=== PATIENT | female | born 1965 | race Caucasian/White ===

== ENCOUNTER → 2017-08-13 08:57 | Outpatient (CLI) | payer OTHER, SELFPAY ==
[2017-08-13 10:43] LABS: Absolute Lymphocyte Count 1.59 X10^3/ul (0.83-4.51); Absolute Neutrophil Count 4.5 X10^3/uL (2.0-7.7); Basophil# 0.04 X10^3/uL; Basophil% 0.6 % (0-1); Eosinophil# 0.32 X10^3/uL; Eosinophils% 4.7 % (0-5); Hematocrit 45.7 % (37-47); Lymphocyte # 1.59 X10^3/ul (4.0); Lymphocyte % 23.5 % (19-41); Mean Corp Hgb Conc 32.8 g/gl (32-36); Mean Corpuscular Hgb 30.1 pg (27.0-32.0); Mean Corpuscular Volume 91.6 fL (81-99); Mean Platelet Vol. 10.9 fl (6.2-12.0); Monocyte# 0.34 X10^3/uL; Neutrophil # 4.45 X10^3/uL (2.7-7.7); Neutrophil % 65.9 % (47-70); POSITIVE COUNT NO; POSITIVE DIFFERENTIAL NO; POSITIVE MORPHOLOGY NO; Platelet Count 206 K/mm3 (150-450); RBC Distribution Width CV 13.6 % (11.6-14.6); RBC Distribution Width SD 45.2 fl (35.1-43.9); Red Blood Count 4.99 M/mm3 (4.2-5.4); White Blood Count 6.8 K/mm3 (4.4-11.0)
[2017-08-13 11:10] LABS: ALB/GLOB Ratio 0.8 RATIO (0.9-2.4); AST(SGOT) 12 U/L (15-37); Alanine Aminotransfer ALT/SGPT 19 U/L (13-56); Albumin, Serum 3.6 g/dL (3.2-5.0); Alkaline Phosphatase 92 U/L (45-117); Anion Gap 8 (5-15); BUN 20 mg/dL (7-18); BUN/Creat Ratio 25.5 RATIO (10-20); Calcium,Total 9.2 mg/dL (8.5-10.1); Chloride 104 mmol/L (98-107); Creatinine, Serum 0.78 mg/dL (0.55-1.02); EST Glomerular Filtration Rate 81 mL/min (>60); Est Glom Filt Rate - Afr Amer 99 mL/min (>60); Globulin 4.4 g/dL (2.2-4.2); Glucose 103 mg/dL (74-106); Potassium 3.8 mmol/L (3.5-5.1); Sodium Level 139 mmol/L (136-145)
== END ==
PROVIDERS: Family Provider Family Medicine; PCP Family Medicine; Visit Provider Internal Medicine Rheumatology
DX: M05.79 Rheumatoid arthritis with rheumatoid factor of multiple sites without organ or systems involvement (principal); M79.7 Fibromyalgia; M40.204 Unspecified kyphosis, thoracic region; I10 Essential (primary) hypertension; Z79.899 Other long term (current) drug therapy
CPT/HCPCS: 36415; 80053; 85025

== ENCOUNTER → 2018-03-16 12:19 | Outpatient (CLI) | payer OTHER, SELFPAY ==
[2018-03-16 14:21] LABS: Absolute Lymphocyte Count 1.98 X10^3/ul (0.83-4.51); Absolute Neutrophil Count 6.7 X10^3/uL (2.0-7.7); Basophil# 0.03 X10^3/uL; Basophil% 0.3 % (0-1); Eosinophil# 0.11 X10^3/uL; Eosinophils% 1.1 % (0-5); Hematocrit 47.3 % (37-47); Hemoglobin 16.3 g/dl (12.0-15.0); Lymphocyte # 1.98 X10^3/ul (4.0); Lymphocyte % 20.6 % (19-41); Mean Corp Hgb Conc 34.5 g/gl (32-36); Mean Corpuscular Hgb 29.6 pg (27.0-32.0); Mean Corpuscular Volume 85.8 fL (81-99); Mean Platelet Vol. 10.8 fl (6.2-12.0); Monocyte# 0.78 X10^3/uL; Monocyte% 8.1 % (0-10); Neutrophil # 6.68 X10^3/uL (2.7-7.7); Neutrophil % 69.6 % (47-70); Platelet Count 220 K/mm3 (150-450); RBC Distribution Width CV 13.9 % (11.6-14.6); RBC Distribution Width SD 43.8 fl (35.1-43.9); Red Blood Count 5.51 M/mm3 (4.2-5.4); White Blood Count 9.6 K/mm3 (4.4-11.0)
[2018-03-16 14:23] LABS: POSITIVE COUNT NO; POSITIVE DIFFERENTIAL NO; POSITIVE MORPHOLOGY NO
[2018-03-16 14:53] LABS: ALB/GLOB Ratio 0.7 RATIO (0.9-2.4); AST(SGOT) 11 U/L (15-37); Alanine Aminotransfer ALT/SGPT 20 U/L (13-56); Albumin, Serum 3.5 g/dL (3.2-5.0); Alkaline Phosphatase 106 U/L (45-117); Anion Gap 14 (5-15); BUN 24 mg/dL (7-18); BUN/Creat Ratio 27.6 RATIO (10-20); Calcium,Total 9.5 mg/dL (8.5-10.1); Chloride 96 mmol/L (98-107); Creatinine, Serum 0.87 mg/dL (0.55-1.02); EST Glomerular Filtration Rate 72 mL/min (>60); Est Glom Filt Rate - Afr Amer 87 mL/min (>60); Globulin 5.1 g/dL (2.2-4.2); Glucose 99 mg/dL (74-106); Lipase 2835 U/L (73-393); Potassium 3.2 mmol/L (3.5-5.1); Protein, Total 8.6 g/dL (6.4-8.2); Sodium Level 134 mmol/L (136-145)
== END ==
PROVIDERS: Family Provider Family Medicine; PCP Family Medicine; Visit Provider Family Medicine
DX: R10.9 Unspecified abdominal pain (principal)
CPT/HCPCS: 36415; 80053; 83690; 85025

== ENCOUNTER → 2018-08-17 09:21 | Outpatient (CLI) | payer OTHER, SELFPAY ==
[2018-08-17 10:17] LABS: Absolute Lymphocyte Count 1.37 X10^3/ul (0.83-4.51); Absolute Neutrophil Count 6.2 X10^3/uL (2.0-7.7); Basophil# 0.02 X10^3/uL; Basophil% 0.2 % (0-1); Eosinophil# 0.13 X10^3/uL; Eosinophils% 1.6 % (0-5); Hematocrit 47.1 % (37-47); Hemoglobin 15.3 g/dl (12.0-15.0); Lymphocyte # 1.37 X10^3/ul (4.0); Lymphocyte % 16.7 % (19-41); Mean Corp Hgb Conc 32.5 g/gl (32-36); Mean Corpuscular Hgb 29.3 pg (27.0-32.0); Mean Corpuscular Volume 90.1 fL (81-99); Mean Platelet Vol. 10.7 fl (6.2-12.0); Monocyte# 0.46 X10^3/uL; Monocyte% 5.6 % (0-10); Neutrophil # 6.21 X10^3/uL (2.7-7.7); Neutrophil % 75.7 % (47-70); Platelet Count 182 K/mm3 (150-450); RBC Distribution Width CV 13.7 % (11.6-14.6); RBC Distribution Width SD 44.8 fl (35.1-43.9); Red Blood Count 5.23 M/mm3 (4.2-5.4); White Blood Count 8.2 K/mm3 (4.4-11.0)
[2018-08-17 10:35] LABS: ALB/GLOB Ratio 0.9 RATIO (0.9-2.4); AST(SGOT) 21 U/L (15-37); Alanine Aminotransfer ALT/SGPT 23 U/L (13-56); Albumin, Serum 3.7 g/dL (3.2-5.0); Alkaline Phosphatase 102 U/L (45-117); Anion Gap 13 (5-15); BUN 17 mg/dL (7-18); BUN/Creat Ratio 19.5 RATIO (10-20); Calcium,Total 9.1 mg/dL (8.5-10.1); Chloride 101 mmol/L (98-107); Creatinine, Serum 0.87 mg/dL (0.55-1.02); EST Glomerular Filtration Rate 72 mL/min (>60); Est Glom Filt Rate - Afr Amer 87 mL/min (>60); Globulin 3.9 g/dL (2.2-4.2); Glucose 117 mg/dL (74-106); Lipase 98 U/L (73-393); Potassium 3.4 mmol/L (3.5-5.1); Protein, Total 7.6 g/dL (6.4-8.2); Sodium Level 139 mmol/L (136-145)
[2018-08-17 10:37] LABS: POSITIVE COUNT NO; POSITIVE DIFFERENTIAL NO; POSITIVE MORPHOLOGY NO
== END ==
PROVIDERS: Family Provider Family Medicine; PCP Family Medicine; Visit Provider Family Medicine
DX: R10.9 Unspecified abdominal pain (principal); R19.7 Diarrhea, unspecified
CPT/HCPCS: 36415; 80053; 83690; 85025

== ENCOUNTER → 2019-07-04 09:26 | Outpatient (CLI) | payer OTHER, SELFPAY | PROVIDERS: Family Provider Family Medicine; PCP Family Medicine; Referring Provider Family Medicine; Visit Provider Internal Medicine Rheumatology | DX: I10 Essential (primary) hypertension (principal); M40.204 Unspecified kyphosis, thoracic region; M79.7 Fibromyalgia; M05.79 Rheumatoid arthritis with rheumatoid factor of multiple sites without organ or systems involvement; Z79.899 Other long term (current) drug therapy | CPT/HCPCS: 36415 ==

== ENCOUNTER → 2019-09-19 14:31 | Outpatient (CLI) | payer OTHER, SELFPAY | PROVIDERS: PCP Family Medicine; Visit Provider Internal Medicine Rheumatology | DX: M05.70 Rheumatoid arthritis with rheumatoid factor of unspecified site without organ or systems involvement (principal); M79.7 Fibromyalgia; M40.204 Unspecified kyphosis, thoracic region; I10 Essential (primary) hypertension; Z79.899 Other long term (current) drug therapy | CPT/HCPCS: 36415 ==

== ENCOUNTER → 2019-11-21 08:43 | Outpatient (CLI) | payer OTHER, SELFPAY ==
[2019-11-21 10:18] LABS: Anion Gap 8 (5-15); BUN 20 mg/dL (7-18); BUN/Creat Ratio 28.5 RATIO (10-20); Calcium,Total 8.8 mg/dL (8.5-10.1); Chloride 109 mmol/L (98-107); Cholesterol 186 mg/dL (200); EST Glomerular Filtration Rate 92 mL/min (>60); Est Glom Filt Rate - Afr Amer 111 mL/min (>60); Glucose 122 mg/dL (74-106); High Density Lipoprotein 42 mg/dL; Potassium 3.6 mmol/L (3.5-5.1); Sodium Level 143 mmol/L (136-145); Triglycerides 142 mg/dL; Very Low Density Lipoprotein 28 mg/dL (5-40)
== END ==
LOC: MFPLAB 08:43
PROVIDERS: PCP Family Medicine; Visit Provider Family Medicine
DX: I10 Essential (primary) hypertension (principal)
CPT/HCPCS: 36415; 80048; 80061

== ENCOUNTER → 2019-12-19 08:49 | Outpatient (CLI) | payer OTHER, SELFPAY ==
[2019-12-19 09:58] LABS: Absolute Lymphocyte Count 1.61 X10^3/uL (0.83-4.51); Absolute Neutrophil Count 4.6 X10^3/uL (2.0-7.7); Basophil# 0.06 X10^3/uL; Basophil% 0.9 % (0-1); Eosinophil# 0.26 X10^3/uL; Eosinophils% 3.7 % (0-5); Hematocrit 45.3 % (37-47); Hemoglobin 14.4 g/dL (12.0-15.0); Lymphocyte # 1.61 X10^3/ul (4.0); Lymphocyte % 23.2 % (19-41); Mean Corp Hgb Conc 31.8 g/dL (32-36); Mean Corpuscular Volume 94.4 fL (81-99); Mean Platelet Vol. 11.2 fl (6.2-12.0); Monocyte% 5.8 % (0-10); NRBC Flagged by Analyzer 0 % (0-5); Neutrophil # 4.61 X10^3/uL (2.7-7.7); Neutrophil % 66.3 % (47-70); Platelet Count 165 K/mm3 (150-450); RBC Distribution Width CV 13.9 % (11.6-14.6); RBC Distribution Width SD 48.4 fl (35.1-43.9)
[2019-12-19 10:36] LABS: AST(SGOT) 15 U/L (15-37); Alanine Aminotransfer ALT/SGPT 16 U/L (13-56); Albumin, Serum 3.6 g/dL (3.2-5.0); Alkaline Phosphatase 92 U/L (45-117); Anion Gap 7 (5-15); BUN 12 mg/dL (7-18); BUN/Creat Ratio 17.4 RATIO (10-20); Calcium,Total 9.2 mg/dL (8.5-10.1); Chloride 107 mmol/L (98-107); Creatinine, Serum 0.69 mg/dL (0.55-1.02); EST Glomerular Filtration Rate 93 mL/min (>60); Est Glom Filt Rate - Afr Amer 113 mL/min (>60); Globulin 3.6 g/dL (2.2-4.2); Glucose 114 mg/dL (74-106); Protein, Total 7.2 g/dL (6.4-8.2); Sodium Level 142 mmol/L (136-145)
== END ==
LOC: MFPLAB 08:49
PROVIDERS: PCP Family Medicine; Referring Provider Family Medicine; Visit Provider Internal Medicine Rheumatology
DX: M05.70 Rheumatoid arthritis with rheumatoid factor of unspecified site without organ or systems involvement (principal); M79.7 Fibromyalgia; M40.204 Unspecified kyphosis, thoracic region; I10 Essential (primary) hypertension; Z79.899 Other long term (current) drug therapy
CPT/HCPCS: 36415; 80053; 85025

== ENCOUNTER → 2020-03-12 09:31 | Outpatient (CLI) | payer OTHER, SELFPAY | PROVIDERS: PCP Family Medicine; Referring Provider Family Medicine; Visit Provider Internal Medicine Rheumatology | DX: M05.70 Rheumatoid arthritis with rheumatoid factor of unspecified site without organ or systems involvement (principal); M79.7 Fibromyalgia; M40.204 Unspecified kyphosis, thoracic region; I10 Essential (primary) hypertension; Z79.899 Other long term (current) drug therapy | CPT/HCPCS: 36415 ==

== ENCOUNTER → 2020-05-30 08:45 | Outpatient (CLI) | payer OTHER, SELFPAY | PROVIDERS: PCP Family Medicine; Visit Provider Internal Medicine Rheumatology | DX: M40.204 Unspecified kyphosis, thoracic region (principal); M05.70 Rheumatoid arthritis with rheumatoid factor of unspecified site without organ or systems involvement; M79.7 Fibromyalgia; I10 Essential (primary) hypertension; Z79.899 Other long term (current) drug therapy | CPT/HCPCS: 36415 ==

== ENCOUNTER → 2020-08-22 08:22 | Outpatient (CLI) | payer OTHER, SELFPAY | PROVIDERS: PCP Family Medicine; Referring Provider Family Medicine; Visit Provider Internal Medicine Rheumatology | DX: M05.79 Rheumatoid arthritis with rheumatoid factor of multiple sites without organ or systems involvement (principal); M79.7 Fibromyalgia; M40.204 Unspecified kyphosis, thoracic region; I10 Essential (primary) hypertension; Z79.899 Other long term (current) drug therapy | CPT/HCPCS: 36415 ==

== ENCOUNTER → 2020-09-20 10:22 | Outpatient (CLI) | payer OTHER, SELFPAY | PROVIDERS: PCP Family Medicine; Referring Provider Family Medicine; Visit Provider Family Medicine | DX: E87.6 Hypokalemia (principal) | CPT/HCPCS: 36415 ==

== ENCOUNTER → 2020-11-14 08:52 | Outpatient (CLI) | payer OTHER, SELFPAY | PROVIDERS: PCP Family Medicine; Referring Provider Family Medicine; Visit Provider Internal Medicine Rheumatology | DX: M05.79 Rheumatoid arthritis with rheumatoid factor of multiple sites without organ or systems involvement (principal); M79.7 Fibromyalgia; M40.204 Unspecified kyphosis, thoracic region; I10 Essential (primary) hypertension; Z79.899 Other long term (current) drug therapy | CPT/HCPCS: 36415 ==

== ENCOUNTER → 2020-12-31 08:59 | Outpatient (CLI) | payer OTHER, SELFPAY ==
[2020-12-31 10:37] LABS: Anion Gap 5 (5-15); BUN 17 mg/dL (7-18); BUN/Creat Ratio 22.2 RATIO (10-20); Calcium,Total 9.2 mg/dL (8.5-10.1); Chloride 108 mmol/L (98-107); Creatinine, Serum 0.77 mg/dL (0.55-1.02); EST Glomerular Filtration Rate 82 mL/min (>60); Est Glom Filt Rate - Afr Amer 100 mL/min (>60); Glucose 113 mg/dL (74-106); Potassium 4.2 mmol/L (3.5-5.1); Sodium Level 140 mmol/L (136-145)
== END ==
PROVIDERS: PCP Family Medicine; Visit Provider Family Medicine
DX: R93.89 Abnormal findings on diagnostic imaging of other specified body structures (principal)
CPT/HCPCS: 36415; 80048

== ENCOUNTER → 2021-01-02 16:45 | Outpatient (CLI) | payer OTHER, SELFPAY ==
--- NOTE | 2021-01-02 16:48 | CT_ITS ---
STUDY: CT CHEST WITH CONTRAST REASON FOR EXAM: Female, 55 years old. Patient has a smoking history of 1 pack per day for 40 years. RADIATION DOSAGE (If Supplied By Facility): CTDIvol = ( 14.23 ) mGy, DLP = ( 647 ) mGycm TECHNIQUE: Transaxial imaging was performed following intravenous administration of IV 100mL Isovue-300. Multiplanar coronal and sagittal images were reformatted. Individualized dose optimization techniques were used for this CT. COMPARISON: None. FINDINGS: There is a 3.3 cm x 2.7 cm complex cystic nodule in the left lobe of the thyroid gland. There is evidence of a substernal extension. There is a 4.6 mm noncalcified nodule in the peripheral lateral aspect of the left lower lobe as seen on axial image #54. Minimal scarring in the anterior aspect of the left lower lobe. There is no demonstrated pleural abnormality. There are calcifications of the coronary arteries. Normal mediastinum. Normal hilar regions. Normal enhanced pulmonary arteries. Normal aorta arch and descending thoracic aorta. There are multi-level degenerative changes of the thoracic spine. Increased kyphotic deformity. There is no demonstrated abnormality of the visualized upper abdomen. CT/Chest WITH Contrast IMPRESSION: 3.3 cm x 2.7 cm complex cystic nodule in the left lobe of the thyroid gland with a substernal extension. 4.6 mm noncalcified nodule in the peripheral lateral aspect of the left lower lobe. Mild scarring at the left lung base. Electronically Signed: Kt Healy MD at 11:28 EDT , Service support ,
== END ==
LOC: CT 16:47
PROVIDERS: PCP Family Medicine; Referring Provider Family Medicine; Visit Provider Family Medicine
DX: R93.89 Abnormal findings on diagnostic imaging of other specified body structures (principal)
CPT/HCPCS: 71260; Q9967

== ENCOUNTER → 2021-01-09 14:39 | Outpatient (CLI) | payer OTHER, SELFPAY ==
--- NOTE | 2021-01-09 14:41 | US_ITS ---
STUDY: THYROID ULTRASOUND REASON FOR EXAM: Female, 55 years old. THYROID NODULE TECHNIQUE: Ultrasound evaluation of the thyroid was performed with real-time and static hampton-scale imaging. COMPARISON: Comparison is made with prior CT scan of the thorax dated 01/02/2021. FINDINGS: RIGHT LOBE: The right lobe of the thyroid gland measures 4.8 cm x 1.2 cm x 1.3 cm. There is a homogeneous echotexture. There is a 1.3 cm x 1.1 cm x 0.8 cm hypoechoic solid nodule in the midportion of the thyroid. Some calcifications are seen within it. This also evidence of a 4 mm x 3 mm x 2 mm solid nodule. LEFT LOBE: The left lobe of the thyroid gland is enlarged and measures 5.7 cm x 2.5 cm x 2.4 cm. There is a heterogeneous echotexture. There is a 4.3 cm x 2.7 cm x 2.1 cm complex solid and cystic nodule in the mid and lower pole of the left lobe. Correlation with nuclear medicine uptake and thyroid scan is recommended. ISTHMUS: The isthmus measures 4.2 mm. The regional lymph nodes are normal. US/Thyroid IMPRESSION: Enlargement of the left lobe of the thyroid with a dominant complex solid and cystic mass as described. Biopsy recommended. 1.3 cm x 1.1 cm x 0.8 cm solid nodule with calcifications in the mid right pole. Electronically Signed: Kt Healy MD at 12:48 EDT , Service support ,
== END ==
LOC: US 14:40
PROVIDERS: PCP Family Medicine; Referring Provider Family Medicine; Visit Provider Family Medicine
DX: E04.1 Nontoxic single thyroid nodule (principal)
CPT/HCPCS: 76536

== ENCOUNTER → 2021-02-05 13:01 | Outpatient (CLI) | payer OTHER, SELFPAY ==
--- NOTE | 2021-02-05 13:02 | CDU_ITS ---
Reason For Study: Carotid bruit Rt. Velocities/BP Lt. Velocities/BP Prox CCA 70.8/16 cm/sec. Prox CCA 88.2/26.7 cm/sec. Mid CCA 69.5/20 cm/sec. Mid CCA 77.2/25.6 cm/sec. Dist CCA 61.7/18.6 cm/sec. Dist CCA 72.8/25.6 cm/sec. Prox ICA 70.8/21.3 cm/sec. Prox ICA 60.8/20.1 cm/sec. Mid ICA 74.7/25.2 cm/sec. Mid ICA 67.3/24.5 cm/sec. Dist ICA 76/27.8 cm/sec. Dist ICA 99.8/42.1 cm/sec. Rt. ICA/CCA = 1.09. Lt. ICA/CCA = 1.29. Prox ECA 83.9/13.4 cm/sec. Prox ECA 72.9/10.2 cm/sec. Rt. Vert. 35.2/13.5 cm/sec. Lt. Vert. 63/24.9 cm/sec. Right Extracranial There is homogeneous, smooth atherosclerotic plaque noted in the right common carotid artery. There is heterogeneous, irregular atherosclerotic plaque noted in the right internal carotid artery. There is intimal thickening but no significant atherosclerotic plaque noted in the right external carotid artery. Antegrade flow is noted in the right vertebral artery. Left Extracranial There is homogeneous, smooth atherosclerotic plaque noted in the left common carotid artery. There is heterogeneous, irregular atherosclerotic plaque noted in the left internal carotid artery. There is intimal thickening but no significant atherosclerotic plaque noted in the left external carotid artery. Antegrade flow is noted in the left vertebral artery. Procedure Carotid Duplex 81007. This is a Carotid Duplex examination using B-mode, color flow and specral Doppler. Exam performed in department. VL/Carotid Duplex Ultrasound Interpretation Summary Minimal irregular plaque at the proximal right internal carotid artery with les s than 50% stenosis Less than 50% stenosis right external carotid artery Minimal calcific plaque with shadowing at the proximal left internal carotid ar lesly with less than 50% stenosis Less than 50% stenosis left external carotid artery Patent and antegrade vertebral arteries bilaterally Ordering Physician: Edgar Jefferson Referring Physician: Nehemias Arizmendi Performed By: Roslyn Hernandez RVT
== END ==
LOC: CVS 13:01
PROVIDERS: PCP Family Medicine; Referring Provider Surgery; Visit Provider Surgery
DX: R09.89 Other specified symptoms and signs involving the circulatory and respiratory systems (principal)
CPT/HCPCS: 93880

== ENCOUNTER → 2021-02-07 15:57 | Outpatient (CLI) | payer OTHER, SELFPAY ==
--- NOTE | 2021-02-07 14:30 | ASPS_PTH ---
PATIENT: CAITLIN OSBORNE LOC: [facility] U#:[id number] AGE/SX: 59/F ROOM: RE02/07/[address]: Dr. Edgar Jefferson MD : 1965 BED: DIS: SPEC #: [id number] RECD: 02/07/21 15:48 STATUS: KINZA ISAIAS #: [id number] IVONNE: 02/07/21 14:[address]: Edgar Jefferson DEPT: CYTOLOGY RECD BY: Lisa Case ENTERED: 02/10/21 07:01 SP TYPE: ASPIRATION OTHR DR: Dr. Nehemias Arizmendi MD Tissues: A - Thyroid gland, NOS B - Thyroid gland, NOS Procedures: Special Stain Group II Cytology Other HEADER OPERATION: Ultrasound-guided fine needle aspiration bilateral thyroid PRE-OP DIAGNOSIS: Bilateral thyroid nodules TISSUE SUBMITTED: A ? FNA right thyroid slides x6, B ? FNA left thyroid slides x8 DIAGNOSIS CYTOLOGY A. Right thyroid nodule, ultrasound-guided FNA (smears): Consistent with benign follicular/colloid nodule. Adequate for evaluation. B. Left thyroid nodule, ultrasound-guided FNA (smears): Consistent with benign follicular/colloid nodule. Adequate for evaluation. KULDEEP:tobias 02/10/2021 COMMENT Correlation with clinical, radiologic findings and appropriate follow up are necessary. CYTOLOGY STUDY Slides are reviewed. CYTOLOGY GROSS A - Received are six smears labeled with the patient's name and designated per the requisition as right thyroid. Submitted for staining. B - Received are eight smears labeled with the patient's name and designated per the requisition as left thyroid. Submitted for staining. / tobias 02/07/21 TC:5 CPT: 40339 x2
== END ==
PROVIDERS: PCP Family Medicine; Referring Provider Surgery; Visit Provider Surgery
DX: E04.1 Nontoxic single thyroid nodule (principal)
CPT/HCPCS: 88161; 88313

== ENCOUNTER → 2021-05-05 08:58 | Outpatient (CLI) | payer BC, SELFPAY ==
[2021-05-05 09:54] LABS: Absolute Lymphocyte Count 1.67 X10^3/uL (0.83-4.51); Basophil# 0.05 X10^3/uL; Basophil% 0.8 % (0-1); Eosinophil# 0.36 X10^3/uL; Eosinophils% 5.5 % (0-5); Hematocrit 44.6 % (37-47); Hemoglobin 14.3 g/dL (12.0-15.0); Lymphocyte # 1.67 X10^3/ul (0.83-4.51); Lymphocyte % 25.5 % (19-41); Mean Corp Hgb Conc 32.1 g/dL (32-36); Mean Corpuscular Hgb 29.8 pg (27.0-32.0); Mean Corpuscular Volume 92.9 fL (81-99); Mean Platelet Vol. 9.7 fl (6.2-12.0); Monocyte# 0.46 X10^3/uL; NRBC Flagged by Analyzer 0 % (0-5); Neutrophil % 60.9 % (47-70); Platelet Count 195 K/mm3 (150-450); RBC Distribution Width CV 14.1 % (11.6-14.6); RBC Distribution Width SD 48.3 fl (35.1-43.9); White Blood Count 6.6 K/mm3 (4.4-11.0)
[2021-05-05 10:15] LABS: ALB/GLOB Ratio 0.7 RATIO (0.9-2.4); AST(SGOT) 12 U/L (15-37); Alanine Aminotransfer ALT/SGPT 16 U/L (13-56); Albumin, Serum 3.2 g/dL (3.2-5.0); Alkaline Phosphatase 76 U/L (45-117); Anion Gap 3 (5-15); BUN 21 mg/dL (7-18); BUN/Creat Ratio 27.7 RATIO (10-20); Calcium,Total 9.1 mg/dL (8.5-10.1); Chloride 107 mmol/L (98-107); Creatinine, Serum 0.76 mg/dL (0.55-1.02); EST Glomerular Filtration Rate 83 mL/min (>60); Est Glom Filt Rate - Afr Amer 101 mL/min (>60); Globulin 4.4 g/dL (2.2-4.2); Glucose 119 mg/dL (74-106); Potassium 4.2 mmol/L (3.5-5.1); Protein, Total 7.6 g/dL (6.4-8.2); Sodium Level 139 mmol/L (136-145)
== END ==
PROVIDERS: PCP Family Medicine; Visit Provider Internal Medicine Rheumatology
DX: M05.79 Rheumatoid arthritis with rheumatoid factor of multiple sites without organ or systems involvement (principal); M79.7 Fibromyalgia; M40.204 Unspecified kyphosis, thoracic region; I10 Essential (primary) hypertension; Z79.899 Other long term (current) drug therapy
CPT/HCPCS: 36415; 80053; 85025

== ENCOUNTER → 2021-06-13 09:38 | Outpatient (CLI) | payer BC, SELFPAY ==
--- NOTE | 2021-06-13 09:41 | RAD_ITS ---
HISTORY: HIP PAIN EXAMINATION/TECHNIQUE: XR Hips Bilateral with Pelvis when performed; 2 Views: 5 views COMPARISON: AP pelvis 05/15/16 FINDINGS: PELVIC BONES: No displaced fracture, destructive or sclerotic lesions. Note that overlapping bowel shadows may however obscure fine detail. Sacroiliac joints are unremarkable. No widening of the pubic symphisis. HIPS: The articular structures are unremarkable. No displaced fracture seen in this frontal view. SOFT TISSUES: No soft tissue swelling or gas. RAD/Hips B/L min 2 views w/ Pelvis IMPRESSION: No acute bony abnormality or significant arthropathy. at 0045 Reported and signed by: Camilo Carter MD Electronically Signed: Camilo Carter MD at 0:44 EST Tel , Service support ,
== END ==
LOC: MTRAD 09:39
PROVIDERS: PCP Family Medicine; Referring Provider Family Medicine; Visit Provider Family Medicine
DX: M25.551 Pain in right hip (principal); M25.552 Pain in left hip
CPT/HCPCS: 73521

== ENCOUNTER 2021-08-05 16:00 | Outpatient (CLI) | payer BC, SELFPAY ==
[2021-08-05 17:36] LABS: Absolute Lymphocyte Count 1.92 X10^3/uL (0.83-4.51); Absolute Neutrophil Count 3.7 X10^3/uL (2.0-7.7); Basophil# 0.07 X10^3/uL; Basophil% 1.1 % (0-1); Eosinophil# 0.35 X10^3/uL; Eosinophils% 5.3 % (0-5); Hematocrit 42.8 % (37-47); Lymphocyte # 1.92 X10^3/ul (0.83-4.51); Lymphocyte % 29.1 % (19-41); Mean Corp Hgb Conc 32.7 g/dL (32-36); Mean Corpuscular Hgb 29.4 pg (27.0-32.0); Mean Corpuscular Volume 89.9 fL (81-99); Monocyte% 7.6 % (0-10); NRBC Flagged by Analyzer 0 % (0-5); Neutrophil # 3.73 X10^3/uL (2.7-7.7); Neutrophil % 56.6 % (47-70); Platelet Count 211 K/mm3 (150-450); RBC Distribution Width CV 13.2 % (11.6-14.6); RBC Distribution Width SD 44.1 fl (35.1-43.9); Red Blood Count 4.76 M/mm3 (4.2-5.4); White Blood Count 6.6 K/mm3 (4.4-11.0)
[2021-08-05 17:46] LABS: ALB/GLOB Ratio 0.9 RATIO (0.9-2.4); AST(SGOT) 11 U/L (15-37); Alanine Aminotransfer ALT/SGPT 15 U/L (13-56); Albumin, Serum 3.4 g/dL (3.2-5.0); Alkaline Phosphatase 92 U/L (45-117); Anion Gap 8 (5-15); BUN 21 mg/dL (7-18); BUN/Creat Ratio 29.7 RATIO (10-20); Calcium,Total 8.9 mg/dL (8.5-10.1); Chloride 108 mmol/L (98-107); Creatinine, Serum 0.71 mg/dL (0.55-1.02); EST Glomerular Filtration Rate 90 mL/min (>60); Est Glom Filt Rate - Afr Amer 109 mL/min (>60); Globulin 3.8 g/dL (2.2-4.2); Glucose 103 mg/dL (74-106); Potassium 4.3 mmol/L (3.5-5.1); Protein, Total 7.2 g/dL (6.4-8.2); Sodium Level 141 mmol/L (136-145)
== END 2021-08-05 23:59 | disposition home or self-care (01) ==
PROVIDERS: PCP Family Medicine; Referring Provider Family Medicine; Visit Provider Internal Medicine Rheumatology
DX: M05.79 Rheumatoid arthritis with rheumatoid factor of multiple sites without organ or systems involvement (principal); M79.7 Fibromyalgia; M40.204 Unspecified kyphosis, thoracic region; I10 Essential (primary) hypertension; Z79.899 Other long term (current) drug therapy
CPT/HCPCS: 36415; 80053; 85025

== ENCOUNTER 2021-10-03 11:15 | Outpatient (CLI) | payer BC, SELFPAY ==
--- NOTE | 2021-10-03 12:28 | STRESSREP_ITS ---
Stress Test Report Date: 10-03-2021 Procedure: Exercise tolerance test Indications: Tachycardia Consent: Per the patient Procedure: The patient exercised on a Neymar protocol for 4 minutes and 9 completing stage I and 1 minute and 9 seconds of stage II achieving a peak heart rate of 134 bpm (82% predicted maximal heart rate) with a peak blood pressure 182/84 mmHg and a peak MET capacity of approximately 7 MET's. The baseline ECG demonstrated normal sinus rhythm; poor R wave progression. The peak exercise ECG demonstrated somatic/motion artifact with no obvious ECG changes at the heart rate achieved. There were no cardiac dysrhythmias pretest, during exercise, or recovery. The functional capacity was considered decreased. The patient had no complaint of chest discomfort during exercise or recovery. The examination was discontinued secondary to dyspnea and leg fatigue. Impression: 1. Technically inadequate (percent predicted maximal heart rate less than 85%) exercise tolerance test 2. Peak exercise ECG with somatic/motion artifact with no obvious ECG changes at the heart rate achieved 3. There were no cardiac dysrhythmias during exercise or recovery This note was generated with [employer] software. It may contain incorrect words, spelling, and punctuation that were not noted in checking the note before signing.
== END 2021-10-03 23:59 | disposition home or self-care (01) ==
LOC: CVS 11:19
PROVIDERS: PCP Family Medicine; Referring Provider Family Medicine; Visit Provider Family Medicine
DX: R00.0 Tachycardia, unspecified (principal)
CPT/HCPCS: 93017

== ENCOUNTER → 2021-10-17 | Outpatient (CLI) | payer BC, SELFPAY ==
[2021-10-17 12:43] LABS: Absolute Lymphocyte Count 1.37 X10^3/uL (0.83-4.51); Absolute Neutrophil Count 4.5 X10^3/uL (2.0-7.7); Basophil# 0.05 X10^3/uL; Basophil% 0.8 % (0-1); Eosinophil# 0.26 X10^3/uL; Eosinophils% 3.9 % (0-5); Hematocrit 44.9 % (37-47); Hemoglobin 14.6 g/dL (12.0-15.0); Lymphocyte # 1.37 X10^3/ul (0.83-4.51); Lymphocyte % 20.7 % (19-41); Mean Corp Hgb Conc 32.5 g/dL (32-36); Mean Corpuscular Volume 89.3 fL (81-99); Mean Platelet Vol. 10.4 fl (6.2-12.0); Monocyte# 0.46 X10^3/uL; Monocyte% 6.9 % (0-10); NRBC Flagged by Analyzer 0 % (0-5); Neutrophil # 4.47 X10^3/uL (2.7-7.7); Neutrophil % 67.4 % (47-70); Platelet Count 197 K/mm3 (150-450); RBC Distribution Width CV 14.1 % (11.6-14.6); RBC Distribution Width SD 46.2 fl (35.1-43.9); Red Blood Count 5.03 M/mm3 (4.2-5.4); White Blood Count 6.6 K/mm3 (4.4-11.0)
[2021-10-17 13:02] LABS: ALB/GLOB Ratio 0.8 RATIO (0.9-2.4); AST(SGOT) 14 U/L (15-37); Alanine Aminotransfer ALT/SGPT 16 U/L (13-56); Albumin, Serum 3.4 g/dL (3.2-5.0); Alkaline Phosphatase 87 U/L (45-117); Anion Gap 4 (5-15); BUN 22 mg/dL (7-18); BUN/Creat Ratio 33.9 RATIO (10-20); Calcium,Total 9.3 mg/dL (8.5-10.1); Chloride 110 mmol/L (98-107); Creatinine, Serum 0.65 mg/dL (0.55-1.02); EST Glomerular Filtration Rate 100 mL/min (>60); Est Glom Filt Rate - Afr Amer 121 mL/min (>60); Globulin 4.5 g/dL (2.2-4.2); Glucose 119 mg/dL (74-106); Potassium 4.5 mmol/L (3.5-5.1); Protein, Total 7.9 g/dL (6.4-8.2); Sodium Level 138 mmol/L (136-145)
== END | disposition home or self-care (01) ==
LOC: MFPLAB 10:04
PROVIDERS: PCP Family Medicine; Referring Provider Family Medicine; Visit Provider Internal Medicine Rheumatology
DX: M05.79 Rheumatoid arthritis with rheumatoid factor of multiple sites without organ or systems involvement (principal); M79.7 Fibromyalgia; M40.204 Unspecified kyphosis, thoracic region; I10 Essential (primary) hypertension; Z79.899 Other long term (current) drug therapy
CPT/HCPCS: 36415; 80053; 85025

== ENCOUNTER → 2022-01-16 | Outpatient (CLI) | payer BC, SELFPAY | END | disposition home or self-care (01) | LOC: PSN 11:44 | PROVIDERS: PCP Family Medicine; Referring Provider Internal Medicine Cardiovascular Disease; Visit Provider Internal Medicine Cardiovascular Disease | DX: R06.09 Other forms of dyspnea (principal); R00.0 Tachycardia, unspecified; I10 Essential (primary) hypertension; R94.31 Abnormal electrocardiogram [ECG] [EKG] | CPT/HCPCS: 93225; 93226 ==

== ENCOUNTER → 2022-01-23 | Outpatient (CLI) | payer BC, SELFPAY ==
--- NOTE | 2022-01-23 12:47 | US_ITS ---
STUDY: THYROID ULTRASOUND REASON FOR EXAM: Female, 56 years old. Thyroid nodules TECHNIQUE: Ultrasound evaluation of the thyroid was performed with real-time and static hampton-scale imaging. COMPARISON: Comparison is made with prior examination dated 01/09/2021. FINDINGS: RIGHT LOBE: The right lobe of the thyroid gland measures 4.8 cm x 1.5 cm x 1 cm. There is a 2. There is a 1.3 cm x 1 cm x 0.7 cm partially calcified nodule with posterior shadowing in the mid pole. This also evidence of a 4 mm x 3 mm x 2 mm hypoechoic solid nodule in the midpole. There has been no change. LEFT LOBE: The left lobe of the thyroid gland is enlarged and measures 6.2 cm x 2.7 cm x 2.7 cm. There is a heterogeneous echotexture. There is a 4.6 cm x 2.3 cm x 2.2 cm complex mass with calcifications in the mid pole. This is essentially unchanged. Biopsy recommended if none has been performed. ISTHMUS: The isthmus measures 3.5 mm. The regional lymph nodes are normal. US/Thyroid IMPRESSION: Stable bilateral thyroid nodules more prominent in the left lobe of the thyroid. Biopsy of the complex calcified mass in the left lobe recommended. Electronically Signed: Kt Healy MD at 13:26 EDT ,
== END | disposition home or self-care (01) ==
LOC: US 12:45
PROVIDERS: PCP Family Medicine; Referring Provider Surgery; Visit Provider Surgery
DX: E04.1 Nontoxic single thyroid nodule (principal)
CPT/HCPCS: 76536

== ENCOUNTER → 2022-02-04 | Outpatient (CLI) | payer BC, SELFPAY ==
[2022-02-04 17:50] LABS: Absolute Lymphocyte Count 1.83 X10^3/uL (0.83-4.51); Absolute Neutrophil Count 4.3 X10^3/uL (2.0-7.7); Basophil# 0.05 X10^3/uL; Basophil% 0.7 % (0-1); Eosinophil# 0.44 X10^3/uL; Hematocrit 41.5 % (37-47); Lymphocyte # 1.83 X10^3/ul (0.83-4.51); Lymphocyte % 24.9 % (19-41); Mean Corp Hgb Conc 31.3 g/dL (32-36); Mean Corpuscular Hgb 28.8 pg (27.0-32.0); Mean Corpuscular Volume 91.8 fL (81-99); Mean Platelet Vol. 10.8 fl (6.2-12.0); Monocyte# 0.68 X10^3/uL; Monocyte% 9.3 % (0-10); NRBC Flagged by Analyzer 0 % (0-5); Neutrophil # 4.31 X10^3/uL (2.7-7.7); Neutrophil % 58.7 % (47-70); Platelet Count 180 K/mm3 (150-450); RBC Distribution Width CV 14.2 % (11.6-14.6); Red Blood Count 4.52 M/mm3 (4.2-5.4); White Blood Count 7.3 K/mm3 (4.4-11.0)
[2022-02-04 18:05] LABS: ALB/GLOB Ratio 0.8 RATIO (0.9-2.4); AST(SGOT) 13 U/L (15-37); Alanine Aminotransfer ALT/SGPT 13 U/L (13-56); Albumin, Serum 3.2 g/dL (3.2-5.0); Alkaline Phosphatase 84 U/L (45-117); Anion Gap 5 (5-15); BUN 23 mg/dL (7-18); BUN/Creat Ratio 35.5 RATIO (10-20); Calcium,Total 9.1 mg/dL (8.5-10.1); Chloride 110 mmol/L (98-107); Creatinine, Serum 0.65 mg/dL (0.55-1.02); EST Glomerular Filtration Rate 100 mL/min (>60); Est Glom Filt Rate - Afr Amer 121 mL/min (>60); Globulin 4.2 g/dL (2.2-4.2); Glucose 121 mg/dL (74-106); Potassium 4.1 mmol/L (3.5-5.1); Protein, Total 7.4 g/dL (6.4-8.2); Sodium Level 142 mmol/L (136-145)
== END | disposition home or self-care (01) ==
PROVIDERS: PCP Family Medicine; Referring Provider Family Medicine; Visit Provider Internal Medicine Rheumatology
DX: M05.79 Rheumatoid arthritis with rheumatoid factor of multiple sites without organ or systems involvement (principal); M40.204 Unspecified kyphosis, thoracic region; I10 Essential (primary) hypertension; Z79.899 Other long term (current) drug therapy
CPT/HCPCS: 36415; 80053; 85025

== ENCOUNTER → 2022-02-06 | Outpatient (CLI) | payer BC, SELFPAY ==
--- NOTE | 2022-02-06 06:39 | ECHOD_ITS ---
Reason For Study: DYSPNEA/SOB Procedure This was a 2D Doppler, Color Flow transthoracic echocardiogram. The study was technically difficult. Exam performed in department. Left Ventricle Normal LV size. Left ventricular systolic function is normal. The estimated ejection fraction is 60 %. No evidence for diastolic dysfunction. No regional wall motion abnormalities noted. Right Ventricle Normal RV size. Normal systolic function. Atria Normal left atrium. Normal right atrium. No doppler evidence for ASD. Mitral Valve There is no mitral annular calcification. Normal mitral valve. Trivial mitral valve insufficiency. Tricuspid Valve Normal tricuspid valve. Trivial tricuspid valve insufficiency. Unable to estimate RV systolic pressure/pulmonary artery pressure due to technically difficult study. Aortic Valve The aortic valve is not well visualized. Mild focal aortic valve calcification. Pulmonic Valve Normal pulmonic valve. Great Vessels Normal sized aortic root. Pericardium/Pleural No pericardial effusion. MMode/2D Measurements & Calculations LVIDd: 4.8 cm IVSd: 1.1 cm Ao root diam: 3.2 cm LVIDs: 3.4 cm LVPWd: 1.1 cm RVDd: 2.5 cm FS: 28.2 % LAV(MOD-bp): 52.5 ml LVAd ap4: 30.7 cm2 LVAd ap2: 21.3 cm2 LAV(MOD-bp) Indexed: 27.1 ml/m2 LVLd ap4: 7.7 cm LVLd ap2: 7.0 cm LAV(MOD-sp2): 51.2 ml EDV(MOD-sp4): 103.1 ml EDV(MOD-sp2): 56.7 ml LAV(MOD-sp4): 51.1 ml EDV(sp4-el): 103.7 ml EDV(sp2-el): 55.0 ml LVAs ap4: 17.9 cm2 LVAs ap2: 12.1 cm2 LVLs ap4: 6.0 cm LVLs ap2: 5.7 cm ESV(MOD-sp4): 45.4 ml ESV(MOD-sp2): 23.8 ml ESV(sp4-el): 45.3 ml ESV(sp2-el): 21.9 ml EF(MOD-sp4): 56.0 % EF(MOD-sp2): 57.9 % EF(sp4-el): 56.3 % SV(MOD-sp4): 57.7 ml SV(MOD-sp2): 32.8 ml SV(sp4-el): 58.4 ml LA dimension(2D): 4.0 cm LA A4 area: 17.7 cm2 Time Measurements MV dec time: 0.21 sec Doppler Measurements & Calculations MV E max ajit: 73.8 cm/sec Lat Peak E' Ajit: 7.0 cm/sec Med Peak E' Ajit: 8.0 cm/sec MV A max ajit: 103.3 cm/sec E/E' lat: 10.5 E/E' med: 9.2 MV E/A: 0.71 MV dec slope: 349.3 cm/sec2 Ao V2 max: 107.6 cm/sec LV V1 max: 65.2 cm/sec Ao max P.6 mmHg LV V1 max P.7 mmHg Ao V2 mean: 73.1 cm/sec LV V1 mean P.1 mmHg Ao mean P.5 mmHg LV V1 mean: 50.6 cm/sec Ao V2 VTI: 25.6 cm LV V1 VTI: 17.8 cm PA V2 max: 122.8 cm/sec ECHO/Echo Complete Interpretation Summary The study was technically difficult. Left ventricular systolic function is normal. The estimated ejection fraction is 60 %. Trivial mitral valve insufficiency. Trivial tricuspid valve insufficiency. Mild focal aortic valve calcification. Unable to estimate RV systolic pressure/pulmonary artery pressure due to techni romina difficult study. No evidence for diastolic dysfunction. Ordering Physician: Nehemias Olsen Referring Physician: Nehemias Arizmendi Performed By: Elida Foley, NEGIN, RVT
--- NOTE | 2022-02-06 08:22 | STRESSREP_ITS ---
Stress Test Report Date: 02-06-2022 Procedure: Pharmacologic stress nuclear imaging study Indications: Shortness of breath/dyspnea on exertion, tachycardia, inconclusive treadmill stress test, hypertension Consent: Per the patient Procedure: The patient underwent pharmacologic (Regadenoson 0.4mg ) evaluation with a peak heart rate of 93 beats per minute (57%predicted maximal heart rate) and a peak blood pressure of 142/72 mmHg. The baseline ECG demonstrated normal sinus rhythm; poor R wave progression. The peak pharmacologic ECG demonstrated no obvious ECG changes. There were no cardiac dysrhythmias pretest, during pharmacologic infusion, or recovery. There was no complaint of chest discomfort during pharmacologic infusion or recovery. The examination was discontinued secondary to completion of protocol. Impression: 1. Pharmacologic (Regadenoson) evaluation 2. Peak pharmacologic ECG with no obvious ECG changes. 3. There were no cardiac dysrhythmias pretest, during pharmacologic infusion, or recovery. 4. Nuclear images pending Myocardial perfusion imaging study: Technique: The patient was injected with 14.2 millicuries of technetium 99m Cardiolite and subsequently rest SPECT Cardiolite nuclear imaging was obtained in the horizontal long, vertical long, and short axis views. The patient underwent pharmacologic (Regadenoson) evaluation with a peak heart rate of 93 beats per minute (57% percent predicted maximal heart rate) and a peak blood pressure of 142/72 mmHg. The patient was injected with 44.6 millicuries of technetium 99m Cardiolite and subsequently stress SPECT Cardiolite nuclear imaging was obtained in the horizontal long, vertical long, and short axis views. A gated Cardiolite study at peak stress was obtained. Interpretation: Rest and stress SPECT Cardiolite nuclear imaging status post realignment, normalization, and attenuation correction demonstrate an element of body motion during image acquisition and on free attenuation correction images the appearance of relative uniform tracer uptake and myocardial perfusion appearing within normal limits, however, on the post attenuation correction images there is notation status post stress of an area of diminished tracer uptake in portions of the distal anterior, anteroseptal, and anteroapical segments. There is end systolic thickening and brightening. The gated Cardiolite study demonstrates myocardial thickening and inward wall motion. The reported LVEF is 57%. Impression: 1. Rest and stress SPECT Cardiolite nuclear imaging demonstrate an element of body motion during image acquisition and a discrepancy between the preattenuation correction images and the post attenuation correction images with respect to the post attenuation correction images suggesting a post-rest area of diminished myocardial perfusion/tracer uptake in portions of the distal anterior, anteroseptal, and anteroapical segments which would be concerning for an area of stress-induced myocardial ischemia, however, an element of shifting soft tissue attenuation/artifact cannot necessarily be excluded. 2. The gated Cardiolite study reports an LVEF of 57%. This note was generated with [employer] software. It may contain incorrect words, spelling, and punctuation that were not noted in checking the note before signing.
== END | disposition home or self-care (01) ==
LOC: CVS 06:38
PROVIDERS: PCP Family Medicine; Referring Provider Internal Medicine Cardiovascular Disease; Visit Provider Internal Medicine Cardiovascular Disease
DX: R06.02 Shortness of breath (principal); I10 Essential (primary) hypertension; R00.0 Tachycardia, unspecified; R94.31 Abnormal electrocardiogram [ECG] [EKG]
CPT/HCPCS: 78452; 93017; 93306; A9500; A4216; J2785

== ENCOUNTER → 2022-02-09 | Outpatient (CLI) | payer BC, SELFPAY ==
--- NOTE | 2022-02-09 16:00 | RAD_ITS ---
EXAM: XR CHEST, 2 VIEWS CLINICAL INDICATION: for heart cath TECHNIQUE: Frontal and lateral views of the chest. This report was created using [employer] report generation technology. COMPARISON: CT chest 01/02/2021. FINDINGS: LUNGS AND PLEURAL SPACES: Unremarkable. No consolidation or edema. No pneumothorax. No effusion. HEART: Unremarkable. Cardiac silhouette not enlarged. MEDIASTINUM: Central airways and mediastinal contour are unremarkable. BONES/JOINTS: Marked kyphotic deformity lower thoracic spine unchanged. SOFT TISSUES: Unremarkable. RAD/Chest PA and Lateral IMPRESSION: No acute cardiopulmonary abnormality. Electronically Signed: Gm Hernandez MD at 3:16 EDT ,
== END | disposition home or self-care (01) ==
LOC: RAD 15:56
PROVIDERS: PCP Family Medicine; Visit Provider Internal Medicine Cardiovascular Disease
DX: R94.39 Abnormal result of other cardiovascular function study (principal); R06.09 Other forms of dyspnea
CPT/HCPCS: 71046

== ENCOUNTER → 2022-02-25 | Outpatient (CLI) | payer BC, SELFPAY ==
--- NOTE | 2022-02-25 10:11 | CT_ITS ---
STUDY: CT CHEST WITHOUT CONTRAST REASON FOR EXAM: Female, 56 years old. ABNORMAL STRESS TEST over read only RADIATION DOSAGE (If Supplied By Facility): CTDIvol = ( 46.26 ) mGy, DLP = ( 1693.18 ) mGycm TECHNIQUE: Transaxial imaging was performed without the administration of intravenous contrast material. Individualized dose optimization techniques were used for this CT. COMPARISON: Comparison is made with prior CT scan of the thorax dated 01/02/2021. FINDINGS: CHEST The lungs are normal. There is no demonstrated pleural abnormality. There are calcifications of the coronary arteries. There are multiple small lymph nodes within the mediastinum, which are normal in size and morphology most compatible with reactive lymph hyperplasia. Normal hilar regions. Normal unenhanced pulmonary arteries. There is atherosclerotic calcification of the aortic arch with tortuosity and elongation of the aortic arch and descending thoracic aorta. Normal osseous structures. There is no demonstrated abnormality of the visualized upper abdomen. CT/Limited Chest CT Cardiac Only IMPRESSION: Coronary artery calcification. Electronically Signed: Kt Healy MD at 14:16 EDT ,
[2022-02-25 13:19] VITALS: BP 138/84; PULSE 73; RESP 16; O2SAT 99; BMI 39.0
[2022-02-25 13:32] VITALS: BP 138/84; PULSE 68
[2022-02-25] MEDS: Nitroglycerin (INPATIENT USE) 0.4 MG TAB.SUBL SL (13:32)
[2022-02-25 13:35] VITALS: BP 104/64; PULSE 72; RESP 14; O2SAT 97
--- NOTE | 2022-02-25 17:52 | CCTA.WCONT ---
CCTA w/Cont Coronary Arteries Date of Study:: 02/25/22 Pain; abnormal pharmacologic stress nuclear imaging study Consent:: Per patient The patient underwent high-resolution CT imaging with particular attention to the coronary artery anatomy. The coronary arteries were evaluated for underlying atherosclerotic coronary artery disease. The patient tolerated the procedure well with no apparent complications. LEFT MAIN CORONARY ARTERY: The left main coronary artery appears to be a large vessel giving rise to the left anterior descending and left circumflex coronary arteries. There is no obvious angiographically significant appearing disease appreciated. LEFT ANTERIOR DESCENDING CORONARY ARTERY: The left anterior descending coronary appears to be a large vessel tapering to a smaller vessel as it courses to the LV apex. The proximal LAD demonstrates moderate to severe partially obstructive calcified plaque, the mid LAD demonstrates mild to moderate partially obstructive noncalcified plaque, the distal LAD is not well visualized. LEFT CIRCUMFLEX CORONARY ARTERY: The left circumflex coronary appears to be a large vessel and potentially a codominant vessel giving rise to an OM system. The LCx demonstrates proximal to mid mild partially obstructive calcified plaque. RIGHT CORONARY ARTERY: The RCA system appears to be a small to moderate potentially codominant system. There is no obvious angiographically significant appearing disease appreciated. THORACIC AORTA: The thoracic aorta is patent and demonstrates mild scattered calcified plaques. PULMONARY ARTERY: The main pulmonary artery and proximal portions of the right and left pulmonary artery appear to be patent with no obvious filling defect. LEFT ATRIUM/APPENDAGE: The left atrium/appendage appears to be patent with no obvious filling defect. MITRAL VALVE: The mitral valve appears to be a bileaflet structure. AORTIC VALVE: The aortic valve appears to be a trileaflet structure. LEFT VENTRICLE: The left ventricle appears to demonstrate grossly normal left ventricular size and wall motion with a reported LVEF of 44%. CORONARY CALCIUM SCORE: A coronary calcium score was not obtained. This note was generated using a voice recognition system and there may be incorrect words, spelling or punctuation that were not noted when reviewing the office note prior to saving.
== END | disposition home or self-care (01) ==
PROVIDERS: PCP Family Medicine; Referring Provider Nurse Practitioner Gerontology; Visit Provider Nurse Practitioner Gerontology
DX: R94.39 Abnormal result of other cardiovascular function study (principal); R94.31 Abnormal electrocardiogram [ECG] [EKG]; R06.09 Other forms of dyspnea; R00.0 Tachycardia, unspecified
CPT/HCPCS: 75574; 76380; Q9967; A4216

== ENCOUNTER → 2022-03-12 | Outpatient (CLI) | payer BC, SELFPAY ==
--- NOTE | 2022-03-12 10:17 | MRI_ITS ---
STUDY: MRI BRAIN WITH AND WITHOUT CONTRAST (ATTENTION INTERNAL AUDITORY CANALS - I.A.C.''s) REASON FOR EXAM: Female, 56 years old. L HEARING LOSS -- IAC TECHNIQUE: Standardized multiplanar fat and water weighted pulse sequences were obtained. ml of 18CC DOTAREM contrast material was administered intravenously for the contrast portion of the examination. COMPARISON: MRI of the brain dated May 10, 2015 FINDINGS: Normal bilateral temporal bones. Normal bilateral internal auditory canals. There is no demonstrated intracanalicular or cisternal vestibular schwannoma (acoustic neuroma). There is no enhancement of the bilateral VIIth or VIIIth cranial nerves. Normal bilateral cochlea, vestibules and semicircular canals. No demonstrated MONDINI''s malformation. No cerebellar pontine angle mass or cyst is present. No demonstrated cavernous meningioma or other process. There are no focal brain parenchymal lesions or abnormal enhancement. No thickening or abnormal enhancement of meninges or dura is seen no visualized mastoid air cell opacification. Normal size of the ventricles and extra-axial spaces for the patient''s age. There are a limited number of small white matter hyperintensities, distributed throughout the deep white matter tracts of the cerebral hemispheres, consistent with mild chronic white matter ischemic changes. There is no evidence for recent intracranial ischemia or other cause of cytotoxic edema on diffusion weighted imaging (DWI). Normal T2* images of the brain without demonstrated susceptibility artifact. There is no demonstrated hemosiderin stain. Normal bilateral basal ganglia. Normal thalami. Normal flow voids within the major intracranial circulation suggesting patency by spin echo criteria. Normal venous enhancement. There is no enhancing intra-axial or extra-axial abnormality. There is no extra-axial fluid accumulation. Normal sella turcica, pituitary gland, infundibular stalk, optic chiasm and hypothalamus. Normal tectal plate and pineal gland. Normal midbrain, nataliia and medulla. Normal cerebellum. Normal basal cisterns. No demonstrated orbital abnormality, within the constraints of a routine brain study. Normal visualized paranasal sinuses. Normal calvarium and skull base. Normal visualized soft tissue structures. Normal visualized upper cervical spine. MRI/Brain W/WO Contrast IMPRESSION: 1. Normal unenhanced and enhanced MRI of the bilateral internal auditory canals (I.A.C''s). 2. Chronic ischemic changes of the brain, as described above. 3. There are no focal brain parenchymal lesions or abnormal enhancement. No thickening or abnormal enhancement of meninges or dura is seen no visualized mastoid air cell opacification. Electronically Signed: Chencho Booth MD at 14:56 EDT ,
== END | disposition home or self-care (01) ==
LOC: MRI 10:09
PROVIDERS: PCP Family Medicine; Referring Provider Otolaryngology; Visit Provider Otolaryngology
DX: R42 Dizziness and giddiness (principal); H90.3 Sensorineural hearing loss, bilateral
CPT/HCPCS: 70553; A9575

== ENCOUNTER 2022-03-24 07:27 | Day surgery (SDC) | payer BC, SELFPAY ==
--- NOTE | 2022-02-11 13:30 | HP.PCM_ITS ---
History and Physical Date of Admission: 02/13/22 [facility] [address] [place] [address] OFFICE VISIT Date of Service:? 02/09/22 MR#: [id number] Acct: [id number] Name:CAITLIN REED Rep #: [id number] : 1965 ? Provider: ?STAN Mosley Age/Sex:? 56/F ? Location: [facility] [place] Status: Signed HPI HPI History of Present Illness Surgical H&P: Yes Details: This is a 56-year-old white female who presents today for outpatient cardiovascular follow-up visit. She was consulted based upon a variety of concerns including shortness of breath/dyspnea on exertion, tachycardia , and a inconclusive treadmill stress test .? She states she has had several episodes in the past where she is described as appearing [place] and being out of it .? She was evaluated locally and at [facility] in [place], [place].? She states she was told she had a CVA but then was told she did not have a CVA.? She states after 3 days of evaluation she was told she had vertigo. She had recently undergone evaluation with a treadmill stress test.? The results are noted below. Her EKG on 01/01/2022 demonstrated sinus rhythm with low voltage QRS in the limb leads and poor R wave progression as well as an inferior MA pattern of indeterminate age cannot be excluded. From a cardiac standpoint, the patient is doing well. She does note an occasional palpitation. She describes this as a flip-flop sensation. She denies chest pain, pressure or heaviness. She does have an occasional SOB with exertion-she states this is intermittent, and is about the same. She denies Orthopnea, and PND. She does not have bleeding issues; no blood in urine, stool or nosebleeds. She does have decreased energy level. She states she is tired all the time. She denies myalgias, or claudication.? She does not have edema, o r sudden weight gain. She does have an occasional dizziness. She states she has vertigo at times. She denies lightheadedness, syncopal or near syncopal episodes, and headaches. Intake Vital Signs ? 01/01/2214:29 02/09/2214:02 02/09/2215:09 02/09/2215:09 Height 5 ft 3 in 5 ft 3 in 5 ft 3 in 5 ft 3 in Weight: ? 200 lb 8 oz 200 lb ? BMI ? 35.5 35.4 ? BP ? 126/78 H 133/74 H ? Blood Pressure Location ? Rt brachial Lt brachial ? Position ? Sitting Sitting ? Respiration ? 17 18 ? Pulse ? 103 H 94 ? Pulse Source ? Monitor Monitor ? Temp ? 97.6 F L ? ? Pulse Oximetry (%) ? 98 96 ? Oxygen Delivery Method ? room air ?B ? 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 Is patient in pain?: No Allergies Sulfa (Sulfonamide Antibiotics) Allergy (Unknown, Verified 02/09/22 15:31) Hives Medications duloxetine 30 mg capsule,delayed release 30 mg PO DAILY 12/16/21 [History Confirmed 02/09/22] meclizine 25 mg tablet 25 mg PO TID PRN dizziness 12/16/21 [History Confirmed 02/09/22] amlodipine 10 mg tablet 10 mg PO DAILY 01/01/22 [History Confirmed 02/09/22] hydroxychloroquine 200 mg tablet 400 mg PO DAILY 01/01/22 [History Confirmed 02/09/22] leflunomide 10 mg tablet (Arava) 20 mg PO DAILY 01/01/22 [History Confirmed 02/09/22] losartan 100 mg tablet 100 mg PO DAILY 01/01/22 [History Confirmed 02/09/22] PFSH Medical History? Essential hypertension Kyphosis Rheumatoid arthritis Tachycardia Surgical History? History of appendectomy History of laparoscopic cholecystectomy Family History? Sister Breast cancer Hypertension DiabetesSister Myocardial infarction,? Onset Age: 30 Social History? Smoking Status:? Current every day smoker tobacco type: cigarettes alcohol intake:? current alcohol intake frequency: holidays/special occasions only substance use type:? does not use caffeine:? Yes Type: coffee Number of servings: 3 ROS Const Const: Positive for fatigue; Negative for weakness, fever(s), headache(s), chills, frequent falls, weight gain or weight loss Eyes Eyes: Negative for blind spots, loss of peripheral vision, transient loss of vision, blurry vision, change in vision, double vision, floaters or tunnel vision ENT ENT: Positive for dizziness (occasional-states she has vertigo); Negative for headache(s), Nosebleed/epistaxis, balance problems or neck pain Cardio Chest Pain: No Palpitations: Yes (occasional flip-flop sensation) Edema: None Muscle aches with walking: None Resp Respiratory: Positive for SOB with activity (occasional); Negative for SOB at rest or SOB orthopnea\SOB lying down GI GI: Negative nausea, vomiting, heartburn, bloating, vomiting blood/hematemesis, bright, red blood in stools or black,tarry stools Musc Musc: Negative for muscle aches/ myalgia, muscle weakness, joint pain or balance problems Neuro Neuro: Positive for dizziness (occasional-states she has vertigo); Negative for lightheadedness, near syncope, syncope, orthostatic symptoms, frequent falls, headache(s), weakness, blurry vision or double vision Abelardo Hematologic/Lymphatic: Negative for easy bleeding or easy bruising Endo Endo: Positive for fatigue Cardiology Exam Const Appearance: cooperative, healthy appearing, comfortable, no acute distress, well developed, well groomed and other (Kyphotic appearing) Nutritional Appearance: obese Orientation: alert, awake and oriented x3 Head Head: normal to inspection, normocephalic and atraumatic Ears: hearing grossly normal bilaterally Nose: external nose normal Eyes Eyelids: eyelids normal Conjunctivae: conjunctivae normal Pupils: PERRL EOM: EOM intact bilaterally Neck Neck: normal visual inspection and full ROM Carotids: normal carotid upstroke Chest Chest inspection: normal inspection of the chest, symmetric chest movement and normal respiratory effort Auscultation: Bilateral: Clear to Auscultation Cardio Palpation: normal PMI Rate: regular rate Rhythm: regular rhythm Heart sounds: S1 normal and S2 normal GI GI: obese Supplemental Info Supplemental Information Echocardiogram 02/06/2022: Interpretation Summary The study was technically difficult. ? Left ventricular systolic function is normal. The estimated ejection fraction is 60 %. Trivial mitral valve insufficiency. Trivial tricuspid valve insufficiency. Mild focal aortic valve calcification. Unable to estimate RV systolic pressure/pulmonary artery pressure due to technically difficult study. No evidence for diastolic dysfunction. ? Stress test 02/06/2022: Interpretation: Rest and stress SPECT Cardiolite nuclear imaging status post realignment, normalization, and attenuation correction demonstrate an element of body motion during image acquisition and on free attenuation correction images the appearance of relative uniform tracer uptake and myocardial perfusion appearing within normal limits, however, on the post attenuation correction images there is notation status post stress of an area of diminished tracer uptake in portions of the distal anterior, anteroseptal, and anteroapical segments.? There is end systolic thickening and brightening.? The gated Cardiolite study demonstrates myocardial thickening and inward wall motion.? The reported LVEF is 57%. Impression: 1.? Rest and stress SPECT Cardiolite nuclear imaging demonstrate an element of body motion during image acquisition and a discrepancy between the preattenuation correction images and the post attenuation correction images with respect to the post attenuation correction images suggesting a post-rest area of diminished myocardial perfusion/tracer uptake in portions of the distal ant erior, anteroseptal, and anteroapical segments which would be concerning for an area of stress-induced myocardial ischemia, however, an element of shifting soft tissue attenuation/artifact cannot necessarily be excluded. 2.? The gated Cardiolite study reports an LVEF of 57%. Carotid artery duplex study: 02/05/2021 Interpretation Summary Minimal irregular plaque at the proximal right internal carotid artery with less than 50% stenosis Less than 50% stenosis right external carotid artery Minimal calcific plaque with shadowing at the proximal left internal carotid artery with less than 50% stenosis Less than 50% stenosis left external carotid artery Patent and antegrade vertebral arteries bilaterally Stress Test Report Date: 10-03-2021 Procedure: Exercise tolerance test Indications: Tachycardia Consent: Per the patient Procedure: The patient exercised on a Neymar protocol for 4 minutes and 9 completing stage I and 1 minute and 9 seconds of stage II achieving a peak heart rate of 134 bpm (82% predicted maximal heart rate) with a peak blood pressure 182/84 mmHg and a peak MET capacity of approximately 7 MET's. The baseline ECG demonstrated normal sinus rhythm; poor R wave progression.? The peak exercise ECG demonstrated somatic/motion artifact with no obvious ECG changes at the heart rate achieved. There were no cardiac dysrhythmias pretest, during exercise, or recovery. The functional capacity was considered decreased. The patient had no complaint of chest discomfort during exercise or recovery. The examination was discontinued secondary to dyspnea and leg fatigue. Impression: 1.? Technically inadequate (percent predicted maximal heart rate less than 85%) exercise tolerance test 2.? Peak exercise ECG with somatic/motion artifact with no obvious ECG changes at the heart rate achieved 3.? There were no cardiac dysrhythmias during exercise or recovery Labs: ?? ? No Data to Display Diagnostics: ?? ? Electrocardiogram ? Echocardiogram ? Stress Test NM ? Stress Test ? Pulmonary: ?? ? No Data to Display Assessment and Plan Assessment and Plan (1) Abnormal stress test: ?Status:?Acute ?Plan: Patient's most recent stress test on 02/06/2022 demonstrated an element of body motion during image acquisition and a discrepancy between the preattenuation correction images and the post attenuation correction images with respect to the post attenuation correction images suggesting a post-rest area of diminished myocardial perfusion/tracer uptake in portions of the distal anterior, anteroseptal, and anteroapical segments which would be concerning for an area of stress-induced myocardial ischemia, however, an element of shifting soft tissue attenuation/artifact cannot necessarily be excluded.? Patient appears stable at this time. She does have complaints of fatigue, and intermittent dyspnea with exertion. Patient will undergo a cardiac catheterization with Dr. Olsen on February 13.? Cardiac catheterization instructions were reviewed with patient, she verbalizes understanding. (2) Abnormal electrocardiogram: ?Status:?Acute ?Plan: Patient had an abnormal electrocardiogram.? She underwent an echocardiogram which demonstrated an ejection fraction of 60%, and no wall motion abnormality.? She also underwent a treadmill nuclear stress test which was abnormal.? Patient will undergo a cardiac catheterization with Dr. Olsen on February 13.? (3) Tachycardia: ?Status:?Acute ?Plan: Patient has a history of tachycardia.? Her most recent 24-hour Holter monitor demonstrated sinus rhythm with an average heart rate of 85 bpm with a very rare PAC/PVC and no symptoms reported.? She does have complaints of an occasional palpitation. At this time, she will continue to monitor for any concerning symptoms. (4) Essential hypertension: ?Status:?Acute ?Plan: Patient has a history of hypertension.? Her blood pressure is well controlled at this time.? She will continue with her current medical therapy, along with monitoring her blood pressures at home.? She will notify our office of any persistently high or low blood pressure readings.? (5) Dyspnea on exertion: ?Status:?Acute ?Plan: She does have dyspnea on exertion. Her most recent stress test from 01/2022 was abnormal. She will undergo a cardiac catheterization to evaluate her coronary arteries. Plan Details Additional Comments: Patient will follow up in 3 months, or sooner if needed. Thank you for allowing me to participate in the care of your patient. Please don't hesitate to call if any issues arise. This note was generated using a voice recognition system and there may be incorrect words, spelling, or punctuation that were not noted when reviewing the office note prior to saving. Portions of this documentation were copied and pasted from previous office visit notes to provide a cohesive continuity of the history. The note has been reviewed, edited, and updated, as necessary. Follow Up: ? ? 3 Months (MICROFABRICATION ENGINEER MANAGER/PA) ? ? 1 Year (PFM) COVID (Procedure Consent) Procedure Criteria Procedure Criteria: Yes Elective The surgeon/proceduralist and patient have discussed in detail the risk of exposure to and/or potential harm posed by the COVID-19 virus with having a surgery/procedure at this time versus the risk of? delaying the surgery/procedure. It is not possible to know either the risk of delaying the surgery or procedure or chance of getting an infection with perfect accuracy, but a joint decision was made between the patient and the surgeon/proceduralist ?to proceed at this time with the scheduled surgery/procedure as indicated on the consent form. Coding Level of Care Code Off vis,est,level 3 Diagnoses Abnormal stress test? R94.39 Abnormal electrocardiogram? R94.31 Tachycardia? R00.0 Essential hypertension? I10 Dyspnea on exertion? R06.09 Coding Level of Care Code Off vis,est,level 3 Diagnoses Abnormal stress test? R94.39 Abnormal electrocardiogram? R94.31 Tachycardia? R00.0 Essential hypertension? I10 Dyspnea on exertion? R06.09 02/09/22 [id number] <Electronically signed by Rahel Mosley NP MICROFABRICATION ENGINEER MANAGER-C> Date Rahel Mosley NP MICROFABRICATION ENGINEER MANAGER-C Cosigner Signature: Date (if applicable) CC:? Dr. Nehemias Arizmendi MD ~ Assessment & Plan Addt'l Comments Addendum: The patient's case was reviewed. The patient was recommended for diagnostic cardiac catheterization. The patient's third-libertarian pair declined and recommended alternative noninvasive evaluation. The patient subsequently underwent coronary artery CTA on 02-25-2022. The results are noted below. CCTA w/Cont Coronary Arteries Date of Study:: 02/25/22 Pain; abnormal pharmacologic stress nuclear imaging study Consent:: Per patient The patient underwent high-resolution CT imaging with particular attention to the coronary artery anatomy.? The coronary arteries were evaluated for unde rlying atherosclerotic coronary artery disease.? The patient tolerated the procedure well with no apparent complications. LEFT MAIN CORONARY ARTERY: The left main coronary artery appears to be a large vessel giving rise to the left anterior descending and left circumflex coronary arteries.? There is no obvious angiographically significant appearing disease appreciated. LEFT ANTERIOR DESCENDING CORONARY ARTERY: The left anterior descending coronary appears to be a large vessel tapering to a smaller vessel as it courses to the LV apex.? The proximal LAD demonstrates moderate to severe partially obstructive calcified plaque, the mid LAD demonstrates mild to moderate partially obstructive noncalcified plaque, the distal LAD is not well visualized. LEFT CIRCUMFLEX CORONARY ARTERY: The left circumflex coronary appears to be a large vessel and potentially a codominant vessel giving rise to an OM system.? The LCx demonstrates proximal to mid mild partially obstructive calcified plaque. RIGHT CORONARY ARTERY: The RCA system appears to be a small to moderate potentially codominant system.? There is no obvious angiographically significant appearing disease appreciated. THORACIC AORTA: The thoracic aorta is patent and demonstrates mild scattered calcified plaques. PULMONARY ARTERY: The main pulmonary artery and proximal portions of the right and left pulmonary artery appear to be patent with no obvious filling defect. LEFT ATRIUM/APPENDAGE: The left atrium/appendage appears to be patent with no obvious filling defect. MITRAL VALVE: The mitral valve appears to be a bileaflet structure. AORTIC VALVE: The aortic valve appears to be a trileaflet structure. LEFT VENTRICLE: The left ventricle appears to demonstrate grossly normal left ventricular size and wall motion with a reported LVEF of 44%. CORONARY CALCIUM SCORE: A coronary calcium score was not obtained. Based upon the patient's coronary CTA results another recommendation was made for diagnostic cardiac catheterization. The patient's third-libertarian payer approved the diagnostic cardiac catheterization. The cardiac catheterization procedure has been discussed and reviewed with the patient. This includes the risk and benefits. She agreed with the aforementioned evaluation care plan. Addendum: 03/24/2022 I have re-examined the patient. There are no clinical changes since date of exam. This note was generated using a voice recognition system and there may be incorrect words, spelling or punctuation that were not noted when reviewing the office note prior to saving.
[2022-02-12 07:34] VITALS: BMI 39.0
[2022-03-17 14:39] LABS: Hematocrit 43.5 % (37-47); Mean Corp Hgb Conc 32.2 g/dL (32-36); Mean Corpuscular Hgb 29.1 pg (27.0-32.0); Mean Corpuscular Volume 90.4 fL (81-99); Mean Platelet Vol. 9.5 fl (6.2-12.0); Platelet Count 212 K/mm3 (150-450); RBC Distribution Width CV 14.2 % (11.6-14.6); RBC Distribution Width SD 47.3 fl (35.1-43.9); Red Blood Count 4.81 M/mm3 (4.2-5.4); White Blood Count 6.8 K/mm3 (4.4-11.0)
[2022-03-17 15:14] LABS: Prothrombin Time (Protime)PT. 12.4 SECONDS (11.7-14.9)
[2022-03-17 15:15] LABS: Partial Thromboplast Time 25.3 Seconds (24.1-36.2)
[2022-03-17 15:41] LABS: Anion Gap 3 (5-15); BUN 13 mg/dL (7-18); BUN/Creat Ratio 20.9 RATIO (10-20); Calcium,Total 9.9 mg/dL (8.5-10.1); Chloride 110 mmol/L (98-107); Creatinine, Serum 0.62 mg/dL (0.55-1.02); EST Glomerular Filtration Rate 104 mL/min (>60); Est Glom Filt Rate - Afr Amer 126 mL/min (>60); Estimated Creatinine Clearance 71.04 ml/min; Glucose 108 mg/dL (74-106); Potassium 4.1 mmol/L (3.5-5.1); Sodium Level 144 mmol/L (136-145)
--- NOTE | 2022-03-24 10:53 | CL.D_ITS ---
Patient Name: CAITLIN OSBORNE Study Date: 03/24/2022 Performing: Nehemias Olsen MD Ht: 60 inches 152.4 cm : 1965 Wt: 200 lbs 90.72 kg Age: 56 Gender: female BSA: 1.87 PROCEDURE(S) PERFORMED DC02-([id number])[facility] PROFILE AND INDICATIONS Indications: Suspected CAD Heart Failure: None Stress/Imaging Date: 02/06/2022tress Test with SPECT MPI: Positive Intermediate Risk Angina Classification Anginal Classification w/in 2 Weeks: Anginal Equivalent Dyspnea CAD Presentations: Other: dyspnea on exertion CONCLUSIONS LAD: mid segment: potentially c/w an intramyocardial bridging segment LCA system: s/p IC NTG: appears somewhat more dilated otherwise no angiographically significant appearing change RECOMMENDATIONS Medical therapy DESCRIPTION OF PROCEDURE The patient arrived to the procedure lab. The risks and benefits of the procedure as well as a full description of our services here and current unavailability of surgical backup were fully explained to the patient and/or their significant other prior to the catheterization. The Timeout was completed, verifying the correct patient and procedure. The patient's procedural site was prepped and draped in the usual fashion. Local anesthetic was given subcutaneously to right groin region with Lidocaine 2%. Local anesthetic was given subcutaneously to left radial region with Lidocaine 2%. Local anesthetic was given subcutaneously to left brachial region with Lidocaine 2%. Using a modified Seldinger technique, arterial access was obtained via the left brachial artery, a 6Fr sheath was inserted. Right Coronary Artery selective angiography was then performed in multiple views using a 5 Fr. 4.0 [place] catheter. Left Coronary Artery selective angiography was performed in multiple views using a 5 Fr. JL3.5 catheter. CORONARY ANGIOGRAPHY DOMINANCE: Co- Dominant LEFT HEART ASSESSMENT Left Ventricular Ejection Fraction: Not assessed LEFT MAIN: Angiographically normal LEFT ANTERIOR DESCENDING ARTERY: PROX LAD: Mild calcification MID LAD: Mild luminal irregularities, segment potentially c/w an intramyocardial bridging segment CIRCUMFLEX ARTERY: PROX CIRC: Mild calcification, Mild luminal irregularities less than 30% RIGHT CORONARY ARTERY: Angiographically normal COMPLICATIONS No Complications PROCEDURE MEDICATIONS Versed 1 mg IV Fentanyl 50 mcg IV Oxygen: 2 L/min via nasal cannula Heparin given IA 03/24/2022 09:40:48 Nitro 200 mcg IC 03/24/2022 09:55:50 SUMMARY OF HEMODYNAMIC DATA Time AIR REST ECG 08:52:20 AO 114/55 (80) SA 09:43:20 Signed By Nehemias Olsen MD On 03/24/2022 10:52:27 Nehemias Olsen MD
== END 2022-03-24 14:15 | disposition home or self-care (01) ==
PROVIDERS: PCP Family Medicine; Referring Provider Internal Medicine Cardiovascular Disease; Visit Provider Internal Medicine Cardiovascular Disease
DX: I25.118 Atherosclerotic heart disease of native coronary artery with other forms of angina pectoris (principal); I10 Essential (primary) hypertension; F17.210 Nicotine dependence, cigarettes, uncomplicated; E66.9 Obesity, unspecified; R06.02 Shortness of breath; Z79.82 Long term (current) use of aspirin; Z79.899 Other long term (current) drug therapy
CPT/HCPCS: 36415; 80048; 85027; 85610; 85730; 93454; 99152; 99153; C1769; C1894; Q9967

== ENCOUNTER → 2022-04-02 | Outpatient (CLI) | payer BC, SELFPAY | END | disposition home or self-care (01) | LOC: LABSPEC 12:08 | PROVIDERS: PCP Family Medicine; Visit Provider Family Medicine | DX: R30.0 Dysuria (principal) | CPT/HCPCS: 87077; 87086; 87088; 87186 ==

== ENCOUNTER → 2022-04-11 | Outpatient (CLI) | payer BC, SELFPAY ==
[2022-04-11 10:05] LABS: Hematocrit 42.1 % (37-47); Hemoglobin 13.5 g/dL (12.0-15.0); Mean Corp Hgb Conc 32.1 g/dL (32-36); Mean Corpuscular Hgb 29.4 pg (27.0-32.0); Mean Corpuscular Volume 91.7 fL (81-99); Platelet Count 206 K/mm3 (150-450); RBC Distribution Width CV 14.1 % (11.6-14.6); RBC Distribution Width SD 47.1 fl (35.1-43.9); Red Blood Count 4.59 M/mm3 (4.2-5.4); White Blood Count 7.5 K/mm3 (4.4-11.0)
[2022-04-11 10:36] LABS: Anion Gap 3 (5-15); BUN 19 mg/dL (7-18); BUN/Creat Ratio 29.2 RATIO (10-20); Calcium,Total 9.3 mg/dL (8.5-10.1); Chloride 111 mmol/L (98-107); Creatinine, Serum 0.65 mg/dL (0.55-1.02); EST Glomerular Filtration Rate 99 mL/min (>60); Est Glom Filt Rate - Afr Amer 120 mL/min (>60); Glucose 127 mg/dL (74-106); Magnesium 2.2 mg/dL (1.6-2.6); Phosphorus 2.4 mg/dL (2.5-4.9); Potassium 4.3 mmol/L (3.5-5.1); Sodium Level 141 mmol/L (136-145); Thyroid Stim Hormone (TSH) 1.31 uIU/mL (0.358-3.74)
== END | disposition home or self-care (01) ==
LOC: LAB 09:06
PROVIDERS: PCP Family Medicine; Referring Provider Surgery; Visit Provider Surgery
DX: Z01.818 Encounter for other preprocedural examination (principal)
CPT/HCPCS: 36415; 80048; 83735; 84100; 84443; 85027

== ENCOUNTER 2022-04-15 10:22 | Observation (INO) | payer BC, SELFPAY ==
[2022-04-15] VITALS (13 sets, daily range): BP systolic 97–126; BP diastolic 56–82; PULSE 72–85; RESP 16; TEMP 36.1–37.1; O2SAT 89–95; BMI 36.1
--- NOTE | 2022-04-15 | THYROID_PTH ---
PATIENT: CAITLIN OSBORNE LOC: MS3 U#:[id number] AGE/SX: 56/F ROOM: VT315 RE04/15/[address]: Dr. Edgar Jefferson MD : 1965 BED: 1 DIS: 04/15/2022 SPEC #: [id number] RECD: 04/15/22 08:28 STATUS: KINZA ISAIAS #: [id number] IVONNE: 04/15/22 00:[address]: Edgar Jefferson DEPT: SURGICAL PATHOLOGY RECD BY: Naya Morse ENTERED: 04/15/22 09:27 SP TYPE: THYROID OTHR DR: Dr. Nehemias Arizmendi MD Tissues: A - Parathyroid B - Thyroid gland, NOS Procedures: Frozen Section (charge) Surgery Specimen Level IV Surgery Specimen Level V HEADER OPERATION: Thyroidectomy PRE-OP DIAGNOSIS: Right thyroid nodule, left thyroid nodule TISSUE SUBMITTED: A - Left parathyroid vs thyroid, FS, B - Thyroid, suture in anterior superior left thyroid lobe FROZEN SECTION DIAGNOSIS A. Left parathyroid vs thyroid tissue, biopsy: Thyroid tissue. SJ:tobias 04/15/2022 MICROSCOPIC DIAGNOSIS A. Left perithyroidal tissue, biopsy: Thyroid tissue with mild chronic inflammation. B. Thyroid, total thyroidectomy: Colloid nodules with extensive hyalinization and calcific change. Chronic lymphocytic thyroiditis, focal. AM:tobias 04/20/2022 COMMENT Reference is made to the patient's previous right and left thyroid nodule, FNA ([id number]), which were consistent with benign follicular/colloid nodules. MICROSCOPIC DESCRIPTION Slides are reviewed. GROSS DESCRIPTION A - Received fresh for frozen section diagnosis labeled with the patient's name is a specimen designated left parathyroid vs thyroid. The specimen consists of a piece of be-pink soft tissue measuring 0.4 x 0.2 x 0.1 cm. The entire specimen is submitted for frozen section diagnosis in one cassette. / SJ:tobias 04/15/2022 B - Received in fixative is one container labeled with the patient's name and designated thyroid. The specimen consists of a thyroid gland measuring 5 x 1.5 x 1.3 cm. The isthmus measures 1 x 1 x 0.5 cm. The left lobe measures 6 x 4 x 2.2 cm. The specimen is differentially inked as follows: entire posterior surface - black, anterior isthmus - red, right lobe - blue, left lobe - green. Serial sections of the right lobe reveal a calcified nodule measuring 1 cm in greatest dimension. Serial sections of the left lobe reveal gelatinous, be cut surfaces with focal areas of gritty calcification. The process involves greater than 95% of the lobe. [place] sections are submitted as follows: 1 - isthmus and right lobe, 2??calcified right lobe lesion, 3-10 - [place] sections of left lobe. Note, sections are submitted after decalcification. / AM:tobias 04/16/2022 TC:5 CPT: 67700, 03655, 23474
[2022-04-15] MEDS: Lactated Ringers 1,000 ML 15 ML IV (06:36)
--- NOTE | 2022-04-15 07:08 | HP.PCM_ITS ---
History and Physical Date of Admission: 04/15/22 [facility] Complaint: discuss Affirma/ options Acquisition Cost Estimator Required: No Is patient in pain?: No Allergies Sulfa (Sulfonamide Antibiotics) Allergy (Unknown, Verified 03/27/22 14:19) Hives Medications duloxetine 30 mg capsule,delayed release 30 mg PO DAILY 12/16/21 [History Confirmed 03/27/22] meclizine 25 mg tablet 25 mg PO TID PRN dizziness 12/16/21 [History Confirmed 03/27/22] amlodipine 10 mg tablet 10 mg PO DAILY 01/01/22 [History Confirmed 03/27/22] hydroxychloroquine 200 mg tablet 400 mg PO DAILY 01/01/22 [History Confirmed 03/27/22] leflunomide 10 mg tablet (Arava) 20 mg PO DAILY 01/01/22 [History Confirmed 03/27/22] losartan 100 mg tablet 100 mg PO DAILY 01/01/22 [History Confirmed 03/27/22] clonazepam 0.5 mg tablet 0.5 mg PO TID PRN Vertigo 02/25/22 [History Confirmed 03/27/22] aspirin 81 mg tablet,delayed release (Adult Low Dose Aspirin) 81 mg PO DAILY 03/17/22 [History Confirmed 03/27/22] atorvastatin 20 mg tablet 20 mg PO QHS #30 tabs 03/24/22 [Rx Confirmed 03/27/22] Is last menstrual period known: No Post menopausal: Yes [facility] : [facility] Medical History?(Updated 03/24/22 @ 11:49 by Ngoc Ochoa) Abnormal cardiac CT angiography Essential hypertension History of left heart catheterization (LHC) (~03/24/22) Kyphosis Lightheadedness Mixed hyperlipidemia Near syncope Rheumatoid arthritis Tachycardia Surgical History?(Updated 03/27/22 @ 14:20 by Angela Goodman) History of appendectomy History of cardiac catheterization (~02/2022) History of laparoscopic cholecystectomy S/P thyroid biopsy (~02/2022) Family History? Sister Breast cancer Hypertension DiabetesSister Myocardial infarction,? Onset Age: 30 Social History? Smoking Status:? Current every day smoker tobacco type: cigarettes alcohol intake:? current alcohol intake frequency: holidays/special occasions only substance use type:? does not use caffeine:? Yes Type: coffee Number of servings: 3 HPI HPI HPI: 56-year-old female returns to discuss her ultrasound-guided fine-needle aspiration of the left thyroid that I performed for her on February 12, 2022.? This appointment is scheduled at her convenience.? It is of note that on March 24, 2022 she had a cardiac catheterization performed by Dr. Nehemias Olsen.? She is a chronic ongoing cigarette smoker.? It appears that no critical disease was identified.? The patient had a firm evaluated on her recent thyroid fine-needle aspiration and it is felt to be moderately suspicious. She is absolutely asymptomatic.? She states that a chest x-ray showed a hiatal hernia and that is why she had a chest CTA.? It appears however that more likely the chest CT was done because of chronic tobacco addiction. The patient has a front end specialist Dr. Ramos.? The patient is on hydroxychloroquine and prednisone and leflunomide For carotid bruit carotid duplex imaging was performed February 05, 2021 did not demonstrate hemodynamically significant disease January 23, 2022 STUDY: ? THYROID ULTRASOUND REASON FOR EXAM: ? Female, 56 years old. Thyroid nodules TECHNIQUE: ? Ultrasound evaluation of the thyroid was performed with real-time and static hampton-scale imaging. COMPARISON: ? Comparison is made with prior examination dated 01/09/2021. FINDINGS: RIGHT LOBE:? The right lobe of the thyroid gland measures 4.8 cm x 1.5 cm x 1 cm.? There is a 2.? There is a 1.3 cm x 1 cm x 0.7 cm partially calcified nodule with posterior shadowing in the mid pole.? This also evidence of a 4 mm x 3 mm x 2 mm hypoechoic solid nodule in the midpole.? There has been no change. LEFT LOBE:? The left lobe of the thyroid gland is enlarged and measures 6.2 cm x 2.7 cm x 2.7 cm.? There is a heterogeneous echotexture.? There is a 4.6 cm x 2.3 cm x 2.2 cm complex mass with calcifications in the mid pole. This is essentially unchanged.? Biopsy recommended if none has been performed. ISTHMUS:? The isthmus measures 3.5 mm. The regional lymph nodes are normal. US/Thyroid IMPRESSION: Stable bilateral thyroid nodules more prominent in the left lobe of the thyroid.? Biopsy of the complex calcified mass in the left lobe recommended. ? Electronically Signed: Kt Healy MD at 13:26 EDT , My previous notes reflect the following Visit Reasons:?DISCUSS THYROID U/S Chief Complaint: Discuss Thyroid US Acquisition Cost Estimator Required: No Is patient in pain?: No Allergies Sulfa (Sulfonamide Antibiotics) Allergy (Unknown, Verified 02/09/22 14:03) Hives Medications duloxetine 30 mg capsule,delayed release 30 mg PO DAILY 12/16/21 [History Confirmed 02/09/22] meclizine 25 mg tablet 25 mg PO TID PRN dizziness 12/16/21 [History Confirmed 02/09/22] amlodipine 10 mg tablet 10 mg PO DAILY 01/01/22 [History Confirmed 02/09/22] hydroxychloroquine 200 mg tablet 400 mg PO DAILY 01/01/22 [History Confirmed 02/09/22] leflunomide 10 mg tablet (Arava) 20 mg PO DAILY 01/01/22 [History Confirmed 02/09/22] losartan 100 mg tablet 100 mg PO DAILY 01/01/22 [History Confirmed 02/09/22] aspirin 81 mg tablet,delayed release (Adult Aspirin Regimen) 81 mg PO DAILY 02/06/22 [History Confirmed 02/09/22] PFSH Medical History? Essential hypertension Kyphosis Rheumatoid arthritis Tachycardia Surgical History? History of appendectomy History of laparoscopic cholecystectomy Family History? Sister Breast cancer Hypertension DiabetesSister Myocardial infarction,? Onset Age: 30 Social History? Smoking Status:? Current every day smoker tobacco type: cigarettes alcohol intake:? current alcohol intake frequency: holidays/special occasions only substance use type:? does not use caffeine:? Yes Type: coffee Number of servings: 3 HPI HPI HPI: CAITLIN OSBORNE, is a 56 F who presents to the office today for surgical follow- up regarding thyroid nodules.? Her most recent visit with me was February 07, 2021.? At that time she had a 4.3 cm solid cystic left thyroid nodule and a 1.3 cm right mid thyroid solid nodule.? I performed an ultrasound-guided fine-needle aspiration of each.? Her cytology of the right thyroid nodule was benign follicular colloid nodule in the left thyroid nodule benign follicular colloid nodule.? Both were felt to be adequate for evaluation.? On January 23, 2022 at the [facility] she had a follow-up thyroid ultrasound performed.? The right thyroid has a 1.3 x 1.0 0.7 cm partially calcified nodule unchanged.? The left thyroid has a 4.6 x 2.3 x 2.2 cm complex mass with calcification the midpole again felt to be essentially unchanged. Patient herself has had no change. She has had some intermittent shortness of breath.? She had a nuclear stress test which might suggest myocardial ischemia but this was indeterminant.? She is to see Dr. Nehemias Olsen today.? Consideration for possible heart cath with po ssible intervention. ROS General General: No weight change, appetite, fatigue, colon cancer, breast cancer or weakness HEENT HEENT: No difficulty swallowing, eye injury, eye surgery, swollen glands or hoarseness Endo Endocrine: No thyroid disease, diabetes mellitus, thyroid cancer, Hair loss, heat intolerance or cold intolerance Skin Skin: No rash or changing moles Breast Breast: No left breast lump, right breast lump, nipple discharge, breast pain, abnormal mammogram, abnormal US or breast enlargement Musc Musculoskeletal: Yes back problems and rheumatoid arthritis; No arthritis, gout or joint pain Cardio Cardiovascular: Yes high blood pressure; No murmur, pacemaker, heart disease, atrial fibrillation, heart attack, heart stent, palpitations, shortness of breat with exertion or chest pain Psych Psychiatric: No depression, anxiety or hearing voices Resp Respiratory: No shortness of breath, No sleep apnea, No cough, No COPD, No asthma, No emphysema and No wheezing Gastro Gastrointestinal: No abdominal pain, No nausea or vomiting, No diarrhea, No constipation, No blood in stool, No acid reflux, No hemorrhoids, No ulcers, No gallbladder problem and No black,tarry stools Abelardo Hematologic: No blood thinners, No blood disorders, No bleeding, No anemia and Yes blood clots Neuro Neurologic: No system reviewed and no additional complaints, except as documented, No as per HPI, No abnormal gait, No abnormal hearing, No abnormal movements, No abnormal speech, No behavioral changes, No burning sensations, No confusion, No convulsions, No disequilibrium, No dizziness, No localized weakness, No frequent falls, No headache(s), No lack of coordination, No loss of vision, No memory loss, No numbness, No other visual disturbances, No radicular pain, No restless legs, No sensory deficit, No syncope, No tingling, No tremor(s), No weakness and No other Exam Neck Other: Mild kyphosis of the neck, mildly overweight, I can just palpate the left thyroid with a deep swallow, no cervical adenopathy, no tenderness Assessment and Plan Assessment and Plan (1) Right thyroid nodule: ?Status:?Acute (2) Left thyroid nodule: ?Status:?Acute ?Comment: Addendum a chest x-ray was obtained November 27, 2020 at [facility].? There was felt to be an air-fluid level on the medial right heart border.? [place] possibly the hiatal hernia.? 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 Suggest CT of the thorax for further evaluation.This was the reason the patient got the chest CT scan which then identified the thyroid findings. Edgar Jefferson M.D., F.A.C.S. ?Plan: I have reviewed the patient's thyroid ultrasound.? There is a rim of calcification partly involving the right nodule which truly does not seem to be changed from last year.? Left thyroid nodule looks more irregular with some central microcalcifications and now is 4.6 cm whereas previously it was 4.3 cm.? Is now getting to the size where 1 might consider an elective left thyroid lobectomy for definitive resection.? With the patient having upcoming recommendations for cardiac catheterization with possible intervention I believe that an appropriate means to interact with her would be to repeat the left-sided ultrasound-guided fine-needle aspiration with Afirma evaluation.? If this is negative then we could more comfortably pursue noninterventional observation.? She is not currently on any anticoagulants.? She is aware of my recommendations and we will try to proceed with an office-based ultrasound guided left thyroid nodule fine-needle aspiration for Afirma at her earliest convenience and prior to her cardiac catheterization where she might then end up anticoagulated. Copy: Dr. Nehemias Arizmendi and Dr. Nehemias Jefferson M.D., F.A.C.S. Exam Const General: cooperative, comfortable and no acute distress [facility] Head: normal to inspection Neck Other: Marked kyphosis of the cervical and thoracic spine.? Thyroid is palpable with a slightly more palpable nodule in the right and diffuse enlargement on the left.? Nontender.? Moves with swallowing.? I do not detect any cervical adenopathy. Chest Other: Enlargement and AP diameter.? Marked thoracic compression and kyphosis Resp Auscultation: clear to auscultation bilaterally Other: Diminished respiratory excursion Cardio Rate: regular rate Rhythm: regular rhythm GI Palpation: soft Other: I am not able to do any internal abdominal organs secondary to body habitus. Skin General: no rashes or lesions noted Neuro General: patient alert, patient awake and patient oriented x3 Extrem General: no calf tenderness Psych Appearance: grossly normal Assessment and Plan Assessment and Plan (1) Left thyroid nodule: ?Status:?Acute ?Comment: Addendum a chest x-ray was obtained November 27, 2020 at [facility].? There was felt to be an air-fluid level on the medial right heart border.? [place] possibly the hiatal hernia.? 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 Suggest CT of the thorax for further evaluation.This was the reason the patient got the chest CT scan which then identified the thyroid findings. Edgar Jefferson M.D., F.A.C.S. (2) Right thyroid nodule: ?Status:?Acute (3) Rheumatoid arthritis: ?Status:?Acute Plan I have described to the patient the results of the [facility] evaluation suggesting 50% risk of malignancy of her left thyroid nodule.? Based upon the patient's medical comorbidities I propose for her a total thyroidectomy.? I have discussed the risk, benefit, complications, alternatives.? She is at increased risk secondary to her cardiac issues and her rheumatoid disease and her body habitus and her COPD/tobacco use.? I have vigorously encouraged her to cease her tobacco. I have instructed her that at the time of surgery it is not likely that pathology we able to help guide us as to whether this is benign or malignant.? I am not in favor of doing a lymph node dissection if malignancy is not determined.? Due to the technical difficulty that I anticipate identifying I do propose for a total thyroidectomy so that a redo procedure would not be required.? She has significant thoracic and cervical kyphosis which will make positioning challenging. She has had an opportunity to ask and have questions answered.? At this point she is taking under advisement my recommendations to cease tobacco.? She is interested in proceeding with definitive surgery. I appreciate the ongoing opportunity of assisting with her surgical care Copy: Dr. Nehemias Jefferson M.D., F.A.C.S. The patient presents today for her planned total thyroidectomy. She has no specific complaints. She claims no acute changes in her health. There is a very heavy odor of tobacco in the room. We will proceed at her discretion. Edgar Jefferson M.D., F.A.C.S.
--- NOTE | 2022-04-15 07:09 | EX.PCM.DISCH ---
Discharge Instructions Diet Discharge Diet: No restrictions Activity Discharge Activity: May Not Drive (No driving for 3 to 5 days please) Ice area for (Minutes): 10 Lifting Restrictions: 10 pound weight lifting restriction please Additional Activity Instructions:: Your neck dressing can be removed on , April 16, 2022. You may reapply a bandage or dry gauze dressing as needed to protect from clothing or irritation. Follow Up Care Please Follow Up With: Edgar Jefferson MD When: Please call [phone] for office follow-up in approximately 10 days Do not start your Synthroid yet. You may call the office in 5 days if you have not already received information regarding the pathology. If the lesion is benign then we will have you initiate the Synthroid therapy. Discharge Plan Admission Admit Date/Time: 04/15/22 10:22 Primary Reason for Your Visit: Dominant left thyroid nodule Attending Provider: Edgar Jefferson Primary Care Provider: Nehemias Arizmendi Discharge Orders/Prescriptions Prescriptions: New levothyroxine [Synthroid] 125 mcg tablet 125 mcg PO DAILY Qty: 60 0RF hydrocodone-acetaminophen 5-325 mg tablet 1 tab PO Q8H PRN (Reason: pain) 2 Days Qty: 5 0RF Continued hydroxychloroquine 200 mg tablet 200 mg PO BID losartan 100 mg tablet 100 mg PO DAILY amlodipine 10 mg tablet 10 mg PO DAILY duloxetine 30 mg capsule,delayed release(DR/EC) 30 mg PO QHS meclizine 25 mg tablet 25 mg PO TID PRN (Reason: dizziness) leflunomide [Arava] 10 mg tablet 20 mg PO DAILY clonazepam 0.5 mg Tablet 0.5 mg PO TID PRN (Reason: Vertigo) atorvastatin 20 mg tablet 20 mg PO QHS Qty: 30 12RF Referrals / Follow Up: Nehemias Arizmendi MD [Primary Care Provider] - Disposition Disposition (needs filled in before D/C Order can be placed): Home, Self Care
[2022-04-15] MEDS: Bupivacaine 0.25% 30 ML Vial INFILT (10:06)
--- NOTE | 2022-04-15 10:15 | OP.PCM_ITS ---
Report of Operation Date of Procedure: 04/15/22 Pre-Operative Diagnosis: Bilateral thyroid nodules dominant on the left, abnorm al Afirma Post-Operative Diagnosis: Same Surgery/Procedure Performed:: Total thyroidectomy Description of Surgical Findings:: Timeout informed consent was obtained. 56-year-old female was taken to the operating placed upon the table underwent general endotracheal intubation anesthesia. She had some skin irritation from a heart monitor in her sternal area so her neck was sterilely prepped and draped and then a 1000 drape was used to wall off the sternal area. Prepping and draping was performed. Transverse s uprasternal incision was created somewhat larger than the usual due to the patient's body habitus neck kyphosis and size of the left nodule. Sharp dissection carried down through the subtenons tissue. The platysma muscle was incised and flaps were raised. Strap muscle fascia was incised midline down to the sternal notch. Dissection was initiated on the left. The gland itself was somewhat dusky in coloration and had a very fragile capsule. Tedious sharp and blunt dissection was required to gently dissected free. Harmonic scalpel was generously used for hemostasis. There was a reasonable sized perimeter lobe that was dissected free. The superior pole was partially dissected and then I addressed the inferior pole. What was initially thought to be an inferior parathyroid on the left was biopsied and sent for frozen section however further into the dissection I felt that I had better identified the parathyroid inferiorly on the left. The frozen section came back as thyroid tissue. I was then able to rotate the gland anteriorly and more further dissect the superior lobes identifying the superior parathyroid. Dissection was then performed directly upon the posterior aspect of the gland. The course of the recurrent residual nerve on the left was identified but difficult to appreciate. There was significant adherence of thyroid tissue at the ligament of Crawley and this was dissected free and then further tissue was sharply dissected free to try to assure majority clearance of all tissue. Hemostasis was intact. The gland was then dissected off the anterior surface of the trachea with the amount of scalpel. The right lobe was much smaller in size. Again tedious blunt and sharp and harmonic scalpel dissection was required. Were needed as on the left hemoclips were used for hemostasis. Was able to dissect free the inferior pole then the superior pole eroded the tail of the gland anteriorly so the course of the recurrent ventral nerve and stayed clear as the ligament of Crawley was transected. Inferior parathyroid identified on the right. The gland was then completely dissected off the anterior surface of the trachea. It was inspected I did not see any perithyroidal tissue. The neck was irrigated. I inspected superficially for any enlarged lymph nodes there were no visually enlarged lymph nodes nor palpably enlarged lymph nodes. Hemostasis was intact. Pieces of fibrillar was placed in each side of the neck. At this point without a definitive pathology of malignancy as had planned preoperatively and with nothing identified intraoperatively I elected not to do a sentinel node dissection. The strap muscles were approximated midline with simple sutures of 3-0 Vicryl. The platysma was approximated with the same. Subdermal tissues approximated with 3-0 Vicryl. Skin edges proximal interrupted 5-0 Vicryl subdermal stitches. Surgical glue was applied. The periincisional area anesthetized with 20 cc of 0.25% Marcaine. Sponge and instrument and needle counts were reported to the surgeon to be correct. Specimens total thyroid and fragment of left inferior thyroid for frozen section which ended up being thyroid. Drains none. Blood loss minimal. The patient was taken to the recovery room in satisfactory addition without apparent complication Edgar Jefferson M.D., F.A.C.S. Surgeon: Edgar Jefferson Type of Anesthesia: General and Local Anesthesiologist: Ryan Martinez
[2022-04-15] MEDS: Calcium Carbonate 500 MG Tablet 1000 MG PO ×2 (13:48→16:11)
[2022-04-15 15:50] LABS: Calcium,Total 9.2 mg/dL (8.5-10.1)
--- NOTE | 2022-04-15 16:36 | PCM.PN.SRG ---
Subjective Subjective She is reasonably comfortable. She has no specific complaints. She is interested in discharge. Objective Data Objective Data Vital Signs: Vital Signs Temp Pulse Resp BP Pulse Ox O2 Del Method O2 Flow Rate 98.7 F 85 16 126/67 H 93 Room Air 2 04/15/22 15:20 04/15/22 15:20 04/15/22 15:20 04/15/22 15:20 04/15/22 15:20 04/15/22 15:20 04/15/22 14:25 Oxygen Flow Rate (L/min) 2 Oxygen Delivery Method Room Air Weight: 204 lb Body Mass Index (BMI) 36.1 Intake & Output: Intake and Output for Last 24 Hours 04/13/22 04/14/22 04/15/22 23:59 23:59 23:59 Intake Total 1999 Balance 1999 Lab / Micro Data Labs: Laboratory Results - last 24 hr 04/15/22 15:00: Calcium 9.2 Physical Exam Narrative Neck is supple, nontender, clean dressing Assessment & Plan Assessment/Plan (1) Left thyroid nodule: PLAN: Patient appears to be doing very well status post total thyroidectomy. Calcium level was quite stable at 9.2. Her neck is supple and nontender. I concur with discharge. I will write a prescription for some [place]. I have will provide a prescription for Synthroid however the patient will hold on taking that until we have the final pathology. I have instructed her regarding potential symptoms of hypoparathyroidism. She is instructed to take Tums 5 mg twice a day which she already has on hand. She is to notify us of any difficulties. Edgar Jefferson M.D., F.A.C.S.
== END 2022-04-15 17:08 | disposition home or self-care (01) ==
LOC: SDC 10:37 → MS3 10:38
PROVIDERS: Admitting Provider Surgery; PCP Family Medicine; Referring Provider Surgery; Visit Provider Surgery
PROC: (CPT 60240; principal; 2022-04-15 07:15)
DX: E04.2 Nontoxic multinodular goiter (principal); M06.9 Rheumatoid arthritis, unspecified; F17.210 Nicotine dependence, cigarettes, uncomplicated; R06.02 Shortness of breath; K44.9 Diaphragmatic hernia without obstruction or gangrene; Z79.899 Other long term (current) drug therapy; Z79.82 Long term (current) use of aspirin; I10 Essential (primary) hypertension; E78.2 Mixed hyperlipidemia; R09.89 Other specified symptoms and signs involving the circulatory and respiratory systems; R94.31 Abnormal electrocardiogram [ECG] [EKG]; R94.39 Abnormal result of other cardiovascular function study
CPT/HCPCS: 60240; 00320; 36415; 82310; 88305; 88307; 88331; 99218; 99251; 99406; J7120; G0378; G0463; J2405

== ENCOUNTER → 2022-04-28 | Outpatient (CLI) | payer BC, SELFPAY ==
[2022-04-28 13:36] LABS: Calcium,Total 9.7 mg/dL (8.5-10.1)
== END | disposition home or self-care (01) ==
LOC: PAVLAB 13:17
PROVIDERS: PCP Family Medicine; Referring Provider Physician Assistant; Visit Provider Physician Assistant
DX: E89.0 Postprocedural hypothyroidism (principal)
CPT/HCPCS: 36415; 82310

== ENCOUNTER → 2022-05-11 | Outpatient (CLI) | payer BC, SELFPAY ==
[2022-05-11 18:18] LABS: Absolute Lymphocyte Count 2.04 X10^3/uL (0.83-4.51); Absolute Neutrophil Count 3.8 X10^3/uL (2.0-7.7); Basophil# 0.06 X10^3/uL; Basophil% 0.9 % (0-1); Eosinophil# 0.34 X10^3/uL; Hematocrit 42.4 % (37-47); Hemoglobin 13.5 g/dL (12.0-15.0); Lymphocyte # 2.04 X10^3/ul (0.83-4.51); Mean Corp Hgb Conc 31.8 g/dL (32-36); Mean Corpuscular Hgb 29.5 pg (27.0-32.0); Mean Corpuscular Volume 92.6 fL (81-99); Mean Platelet Vol. 10.4 fl (6.2-12.0); Monocyte# 0.52 X10^3/uL; Monocyte% 7.6 % (0-10); NRBC Flagged by Analyzer 0 % (0-5); Neutrophil # 3.83 X10^3/uL (2.7-7.7); Neutrophil % 56.2 % (47-70); Platelet Count 215 K/mm3 (150-450); RBC Distribution Width CV 14.2 % (11.6-14.6); RBC Distribution Width SD 48.6 fl (35.1-43.9); Red Blood Count 4.58 M/mm3 (4.2-5.4); White Blood Count 6.8 K/mm3 (4.4-11.0)
[2022-05-11 18:57] LABS: ALB/GLOB Ratio 0.8 RATIO (0.9-2.4); AST(SGOT) 13 U/L (15-37); Alanine Aminotransfer ALT/SGPT 15 U/L (13-56); Albumin, Serum 3.3 g/dL (3.2-5.0); Alkaline Phosphatase 90 U/L (45-117); Anion Gap 6 (5-15); BUN 19 mg/dL (7-18); BUN/Creat Ratio 29.1 RATIO (10-20); Calcium,Total 9.1 mg/dL (8.5-10.1); Chloride 107 mmol/L (98-107); Creatinine, Serum 0.65 mg/dL (0.55-1.02); EST Glomerular Filtration Rate 99 mL/min (>60); Est Glom Filt Rate - Afr Amer 120 mL/min (>60); Globulin 4.1 g/dL (2.2-4.2); Glucose 133 mg/dL (74-106); Potassium 3.6 mmol/L (3.5-5.1); Protein, Total 7.4 g/dL (6.4-8.2); Sodium Level 139 mmol/L (136-145)
== END | disposition home or self-care (01) ==
LOC: MFPLAB 14:36
PROVIDERS: PCP Family Medicine; Visit Provider Internal Medicine Rheumatology
DX: M05.79 Rheumatoid arthritis with rheumatoid factor of multiple sites without organ or systems involvement (principal); M79.7 Fibromyalgia; M40.204 Unspecified kyphosis, thoracic region; I10 Essential (primary) hypertension; Z79.899 Other long term (current) drug therapy
CPT/HCPCS: 36415; 80053; 85025

== ENCOUNTER → 2022-06-17 | Outpatient (CLI) | payer BC, SELFPAY ==
[2022-06-17 18:06] LABS: AST(SGOT) 11 U/L (15-37); Alanine Aminotransfer ALT/SGPT 17 U/L (13-56); Albumin, Serum 3.3 g/dL (3.2-5.0); Alkaline Phosphatase 97 U/L (45-117); Cholesterol 158 mg/dL (200); Globulin 4.5 g/dL (2.2-4.2); High Density Lipoprotein 53 mg/dL; Protein, Total 7.8 g/dL (6.4-8.2); Triglycerides 270 mg/dL; Very Low Density Lipoprotein 54 mg/dL (5-40)
== END | disposition home or self-care (01) ==
LOC: LAB 15:15
PROVIDERS: Internal Medicine Cardiovascular Disease; PCP Family Medicine; Referring Provider Surgery; Visit Provider Surgery
DX: E78.2 Mixed hyperlipidemia (principal); E89.0 Postprocedural hypothyroidism
CPT/HCPCS: 36415; 80061; 80076; 84443

== ENCOUNTER → 2022-08-03 | Outpatient (CLI) | payer BC, SELFPAY ==
[2022-08-03 17:42] LABS: Absolute Lymphocyte Count 1.48 X10^3/uL (0.83-4.51); Absolute Neutrophil Count 5.2 X10^3/uL (2.0-7.7); Basophil# 0.06 X10^3/uL; Basophil% 0.8 % (0-1); Eosinophil# 0.06 X10^3/uL; Eosinophils% 0.8 % (0-5); Hematocrit 43.1 % (37-47); Lymphocyte # 1.48 X10^3/ul (0.83-4.51); Lymphocyte % 20.3 % (19-41); Mean Corp Hgb Conc 32.5 g/dL (32-36); Mean Corpuscular Hgb 29.4 pg (27.0-32.0); Mean Corpuscular Volume 90.5 fL (81-99); Mean Platelet Vol. 10.5 fl (6.2-12.0); Monocyte# 0.47 X10^3/uL; Monocyte% 6.5 % (0-10); NRBC Flagged by Analyzer 0 % (0-5); Neutrophil % 71.5 % (47-70); Platelet Count 219 K/mm3 (150-450); RBC Distribution Width CV 13.9 % (11.6-14.6); RBC Distribution Width SD 46.4 fl (35.1-43.9); Red Blood Count 4.76 M/mm3 (4.2-5.4); White Blood Count 7.3 K/mm3 (4.4-11.0)
[2022-08-03 18:19] LABS: ALB/GLOB Ratio 0.8 RATIO (0.9-2.4); AST(SGOT) 11 U/L (15-37); Alanine Aminotransfer ALT/SGPT 15 U/L (13-56); Albumin, Serum 3.4 g/dL (3.2-5.0); Alkaline Phosphatase 95 U/L (45-117); Anion Gap 6 (5-15); BUN 26 mg/dL (7-18); BUN/Creat Ratio 31.5 RATIO (10-20); Calcium,Total 9.9 mg/dL (8.5-10.1); Chloride 105 mmol/L (98-107); Creatinine, Serum 0.82 mg/dL (0.55-1.02); EST Glomerular Filtration Rate 75 mL/min (>60); Est Glom Filt Rate - Afr Amer 91 mL/min (>60); Globulin 4.5 g/dL (2.2-4.2); Glucose 142 mg/dL (74-106); Potassium 4.5 mmol/L (3.5-5.1); Protein, Total 7.9 g/dL (6.4-8.2); Sodium Level 138 mmol/L (136-145)
== END | disposition home or self-care (01) ==
LOC: MFPLAB 15:18
PROVIDERS: PCP Family Medicine; Visit Provider Internal Medicine Rheumatology
DX: M05.79 Rheumatoid arthritis with rheumatoid factor of multiple sites without organ or systems involvement (principal); M79.7 Fibromyalgia; I10 Essential (primary) hypertension; M40.204 Unspecified kyphosis, thoracic region; Z79.899 Other long term (current) drug therapy
CPT/HCPCS: 36415; 80053; 85025

== ENCOUNTER → 2022-08-10 | Outpatient (CLI) | payer BC, SELFPAY ==
[2022-08-10 13:00] LABS: Anion Gap 5 (5-15); BUN 21 mg/dL (7-18); BUN/Creat Ratio 32.9 RATIO (10-20); Calcium,Total 9.1 mg/dL (8.5-10.1); Chloride 109 mmol/L (98-107); Cholesterol 161 mg/dL (200); Creatinine, Serum 0.64 mg/dL (0.55-1.02); EST Glomerular Filtration Rate 101 mL/min (>60); Est Glom Filt Rate - Afr Amer 122 mL/min (>60); Free T3 2.2 pg/mL (2.18-3.98); Glucose 144 mg/dL (74-106); High Density Lipoprotein 57 mg/dL; Potassium 4.4 mmol/L (3.5-5.1); Sodium Level 140 mmol/L (136-145); T4 Free Direct 1.21 ng/dL (0.76-1.46); Thyroid Stim Hormone (TSH) 1.84 uIU/mL (0.358-3.74); Triglycerides 127 mg/dL; Very Low Density Lipoprotein 25 mg/dL (5-40)
== END | disposition home or self-care (01) ==
LOC: MFPLAB 09:57
PROVIDERS: PCP Family Medicine; Visit Provider Family Medicine
DX: E03.9 Hypothyroidism, unspecified (principal); I10 Essential (primary) hypertension
CPT/HCPCS: 36415; 80048; 80061; 84439; 84443; 84481

== ENCOUNTER → 2022-09-16 | Outpatient (CLI) | payer BC, SELFPAY ==
[2022-09-16 12:33] LABS: Hemoglobin A1c 7.4 % (3.8-5.6)
== END | disposition home or self-care (01) ==
LOC: MTLAB 11:12
PROVIDERS: PCP Family Medicine; Visit Provider Psychiatry & Neurology Neurology
DX: R73.9 Hyperglycemia, unspecified (principal)
CPT/HCPCS: 36415; 83036

== ENCOUNTER → 2022-10-27 | Outpatient (CLI) | payer OTHER, SELFPAY ==
[2022-10-27 17:49] LABS: Absolute Neutrophil Count 4.2 X10^3/uL (2.0-7.7); Basophil# 0.04 X10^3/uL; Basophil% 0.6 % (0-1); Eosinophil# 0.38 X10^3/uL; Eosinophils% 5.5 % (0-5); Hematocrit 41.6 % (37-47); Hemoglobin 13.5 g/dL (12.0-15.0); Lymphocyte % 23.4 % (19-41); Mean Corp Hgb Conc 32.5 g/dL (32-36); Mean Corpuscular Hgb 29.3 pg (27.0-32.0); Mean Corpuscular Volume 90.2 fL (81-99); Mean Platelet Vol. 11.3 fl (6.2-12.0); Monocyte# 0.58 X10^3/uL; Monocyte% 8.5 % (0-10); NRBC Flagged by Analyzer 0 % (0-5); Neutrophil # 4.23 X10^3/uL (2.7-7.7); Neutrophil % 61.7 % (47-70); Platelet Count 171 K/mm3 (150-450); RBC Distribution Width CV 13.9 % (11.6-14.6); RBC Distribution Width SD 46.2 fl (35.1-43.9); Red Blood Count 4.61 M/mm3 (4.2-5.4); White Blood Count 6.9 K/mm3 (4.4-11.0)
[2022-10-27 18:25] LABS: ALB/GLOB Ratio 0.9 RATIO (0.9-2.4); AST(SGOT) 18 U/L (15-37); Alanine Aminotransfer ALT/SGPT 24 U/L (13-56); Albumin, Serum 3.5 g/dL (3.2-5.0); Alkaline Phosphatase 90 U/L (45-117); Anion Gap 4 (5-15); BUN 20 mg/dL (7-18); Calcium,Total 9.2 mg/dL (8.5-10.1); Chloride 108 mmol/L (98-107); EST Glomerular Filtration Rate 78 mL/min (>60); Est Glom Filt Rate - Afr Amer 95 mL/min (>60); Globulin 3.9 g/dL (2.2-4.2); Glucose 119 mg/dL (74-106); Potassium 4.1 mmol/L (3.5-5.1); Protein, Total 7.4 g/dL (6.4-8.2); Sodium Level 139 mmol/L (136-145)
== END | disposition home or self-care (01) ==
LOC: MFPLAB 16:05
PROVIDERS: PCP Family Medicine; Visit Provider Internal Medicine Rheumatology
DX: M05.79 Rheumatoid arthritis with rheumatoid factor of multiple sites without organ or systems involvement (principal); Z79.899 Other long term (current) drug therapy
CPT/HCPCS: 36415; 80053; 85025

== ENCOUNTER → 2023-01-01 | Outpatient (CLI) | payer OTHER, SELFPAY ==
[2023-01-01 10:16] LABS: Absolute Lymphocyte Count 1.75 X10^3/uL (0.83-4.51); Absolute Neutrophil Count 6.2 X10^3/uL (2.0-7.7); Basophil# 0.04 X10^3/uL; Basophil% 0.4 % (0-1); Eosinophil# 0.21 X10^3/uL; Eosinophils% 2.3 % (0-5); Hematocrit 36.4 % (37-47); Hemoglobin 11.3 g/dL (12.0-15.0); Lymphocyte # 1.75 X10^3/ul (0.83-4.51); Lymphocyte % 19.5 % (19-41); Mean Corpuscular Hgb 28.6 pg (27.0-32.0); Mean Corpuscular Volume 92.2 fL (81-99); Mean Platelet Vol. 9.8 fl (6.2-12.0); Monocyte# 0.72 X10^3/uL; NRBC Flagged by Analyzer 0 % (0-5); Neutrophil # 6.21 X10^3/uL (2.7-7.7); Neutrophil % 69.4 % (47-70); Platelet Count 245 K/mm3 (150-450); RBC Distribution Width CV 13.9 % (11.6-14.6); RBC Distribution Width SD 47.6 fl (35.1-43.9); Red Blood Count 3.95 M/mm3 (4.2-5.4)
[2023-01-01 10:39] LABS: ALB/GLOB Ratio 0.6 RATIO (0.9-2.4); AST(SGOT) 16 U/L (15-37); Alanine Aminotransfer ALT/SGPT 24 U/L (13-56); Albumin, Serum 2.7 g/dL (3.2-5.0); Alkaline Phosphatase 85 U/L (45-117); Anion Gap 6 (5-15); BUN 22 mg/dL (7-18); BUN/Creat Ratio 37.5 RATIO (10-20); Chloride 109 mmol/L (98-107); Creatinine, Serum 0.59 mg/dL (0.55-1.02); EST Glomerular Filtration Rate 111 mL/min (>60); Est Glom Filt Rate - Afr Amer 135 mL/min (>60); Globulin 4.7 g/dL (2.2-4.2); Glucose 131 mg/dL (74-106); Potassium 3.8 mmol/L (3.5-5.1); Protein, Total 7.4 g/dL (6.4-8.2); Sodium Level 141 mmol/L (136-145)
== END | disposition home or self-care (01) ==
LOC: MFPLAB 08:44
PROVIDERS: PCP Family Medicine; Visit Provider Internal Medicine Rheumatology
DX: M05.79 Rheumatoid arthritis with rheumatoid factor of multiple sites without organ or systems involvement (principal); Z79.899 Other long term (current) drug therapy
CPT/HCPCS: 36415; 80053; 85025

== ENCOUNTER 2023-01-03 11:23 | Emergency (ER) | payer OTHER, SELFPAY ==
[2023-01-03 11:24] VITALS: BP 129/75; PULSE 106; RESP 20; TEMP 36.4; O2SAT 86; BMI 36.8
[2023-01-03 11:25] VITALS: BP 121/82; PULSE 95; RESP 14; TEMP 36.6; O2SAT 92; O2SAT 98
--- NOTE | 2023-01-03 11:31 | EKG12_ITS ---
Test Reason : CP Blood Pressure : / mmHG Vent. Rate : 095 BPM Atrial Rate : 095 BPM P-R Int : 198 ms QRS Dur : 096 ms QT Int : 370 ms P-R-T Axes : 056 079 038 degrees QTc Int : 464 ms Normal sinus rhythm Low voltage QRS Borderline ECG Confirmed by MADDI HAMMOND, ISMA ([id number]), editor map FRANKO CAROLINA ([id number]) on 01/05/2023 8:27:30 AM Referred By: RUSSELL Confirmed By:ISMA LINDA MD
--- NOTE | 2023-01-03 11:33 | EDS_ITS ---
HPI <SANAZ Downs - Last Filed: 01/03/23 12:38> History of Present Illness Chief Complaint: Chest Pain Narrative Narrative: 57-year-old female with PMH of HTN, HLD, tobacco use presents with 4 days of chills, productive cough, shortness of breath and chest pain. Denies fever or GI symptoms. She smokes 1/2 PPD and denies history of COPD. PFSH <SANAZ Downs - Last Filed: 01/03/23 12:38> PFS Medical History (Reviewed 11/16/22 @ 15:07 by Rahel Mosley CUSTOMER ENERGY SPECIALIST, CUSTOMER ENERGY SPECIALIST-C) Abnormal cardiac CT angiography Back pain Cardiology follow-up encounter DVT (deep venous thrombosis) Essential hypertension Heartburn High cholesterol History of echocardiogram History of Holter monitoring History of left heart catheterization (LHC) (~03/24/22) History of steroid therapy History of stress test Hypertension Kyphosis Leg cramps Lightheadedness Loss of hearing Mixed hyperlipidemia Near syncope Rheumatoid arthritis Shortness of breath on exertion Smoker Tachycardia Thyroid disease Vertigo Wears dentures Wears glasses Home Medications meclizine 25 mg tablet 25 mg PO TID PRN dizziness 12/16/21 [History Last Taken Unknown] amlodipine 10 mg tablet 10 mg PO DAILY 01/01/22 [History Last Taken 04/15/22] hydroxychloroquine 200 mg tablet 200 mg PO BID 01/01/22 [History Last Taken Unknown] leflunomide 10 mg tablet (Arava) 20 mg PO DAILY 01/01/22 [History Last Taken Unknown] losartan 100 mg tablet 100 mg PO DAILY 01/01/22 [History Last Taken 04/15/22] atorvastatin 20 mg tablet 20 mg PO QHS #30 tabs 04/15/22 [Rx Last Taken Unknown] duloxetine 30 mg capsule,delayed release 60 mg PO QHS 09/16/22 [History Last Taken Unknown] famotidine 20 mg tablet 20 mg PO DAILY 09/16/22 [History Last Taken Unknown] ibuprofen 200 mg tablet (Advil) 200 mg PO Q6H 09/16/22 [History Last Taken Unknown] levothyroxine 150 mcg tablet See Rx Instructions .Route .COMPLEX #90 tabs 11/02/22 [Rx Last Taken Unknown] coenzyme Q10 100 mg tablet 100 mg PO DAILY 11/16/22 [History Last Taken Unknown] metformin 1,000 mg tablet 1,000 mg PO BID 11/16/22 [History Last Taken Unknown] prednisone 10 mg tablet 10 mg PO DAILY PRN 11/16/22 [History Last Taken Unknown] albuterol sulfate 90 mcg/actuation breath activated powder inhaler 2 inh inhalation Q4H PRN shortness of breath or wheezing #1 ea 01/03/23 [Rx Last Taken Unknown] doxycycline hyclate 100 mg capsule 100 mg PO BID 7 days #14 caps 01/03/23 [Rx Last Taken Unknown] Allergy/AdvReac Type Severity Reaction Status Date / Time Sulfa (Sulfonamide Allergy Unknown Hives Verified 01/03/23 11:25 Antibiotics) Family History (Reviewed 11/16/22 @ 15:07 by Rahel Mosley CUSTOMER ENERGY SPECIALIST, CUSTOMER ENERGY SPECIALIST-C) Sister Breast cancer Hypertension Diabetes Sister Myocardial infarction, Onset Age: 30 Surgical History History of appendectomy History of cardiac catheterization (~02/2022) History of laparoscopic cholecystectomy History of total thyroidectomy S/P thyroid biopsy (~02/2022) Social History Smoking Status: Current every day smoker tobacco type: cigarettes Tobacco: How many years used: 30 second hand exposure: Yes alcohol intake: current alcohol intake frequency: holidays/special occasions only substance use type: does not use caffeine: Yes Type: coffee Number of servings: 3 seatbelt use: always ROS <SANAZ Downs - Last Filed: 01/03/23 12:38> ROS ED ROS Narrative Constitutional: Positive for chills. Negative for fever, malaise. CVS: Positive for chest pain. Negative for palpitations, syncope. Respiratory: Positive for shortness of breath, cough. GI: Negative for abdominal pain, nausea, vomiting, diarrhea. : Negative for dysuria. Neuro: Negative for headache. EXAM <SANAZ Downs - Last Filed: 01/03/23 12:38> Physical Exam Narrative Exam Narrative: CONST: Patient sitting in no acute distress. EYES: Normal inspection. ENT: Normal inspection, moist mucous membranes. NECK: Normal inspection. RESP: No respiratory distress, diminished breath sounds with faint expiratory wheeze. CVS: Regular rate and rhythm, no murmur, no gallop. SKIN: Color normal, no rash, warm, dry, intact. EXTREMITIES: Normal appearance, no pedal edema. NEURO: Oriented x4. PSYCH: Normal affect. Const Vital Signs: 01/03/23 11:24 01/03/23 11:25 01/03/23 11:25 Temperature 97.5 F L 97.8 F Temperature Source Temporal Temporal Pulse Rate 106 H 95 Respiratory Rate 20 H 14 Respiratory Effort Respiratory Pattern Blood Pressure 129/75 H 121/82 H Blood Pressure Mean 93 95 Pulse Ox 86 92 98 Oxygen Delivery Method Room Air Room Air Nasal Cannula Oxygen Flow Rate (L/min) 2 01/03/23 11:25 01/03/23 11:46 01/03/23 12:23 Temperature Temperature Source Pulse Rate 93 94 Respiratory Rate 18 14 Respiratory Effort Short of Breath Respiratory Pattern Normal Blood Pressure 103/89 H Blood Pressure Mean 93 Pulse Ox 98 Oxygen Delivery Method Nasal Cannula Oxygen Flow Rate (L/min) 2 01/03/23 12:38 Temperature 97.8 F Temperature Source Pulse Rate 64 Respiratory Rate 14 Respiratory Effort Respiratory Pattern Blood Pressure 110/78 Blood Pressure Mean Pulse Ox 92 Oxygen Delivery Method Oxygen Flow Rate (L/min) <Dr. Benson Mendez DO - Last Filed: 01/03/23 13:12> Physical Exam Const Vital Signs: 01/03/23 11:24 01/03/23 11:25 01/03/23 11:25 Temperature 97.5 F L 97.8 F Temperature Source Temporal Temporal Pulse Rate 106 H 95 Respiratory Rate 20 H 14 Respiratory Effort Respiratory Pattern Blood Pressure 129/75 H 121/82 H Blood Pressure Mean 93 95 Pulse Ox 86 92 98 Oxygen Delivery Method Room Air Room Air Nasal Cannula Oxygen Flow Rate (L/min) 2 01/03/23 11:25 01/03/23 11:46 01/03/23 12:23 Temperature Temperature Source Pulse Rate 93 94 Respiratory Rate 18 14 Respiratory Effort Short of Breath Respiratory Pattern Normal Blood Pressure 103/89 H Blood Pressure Mean 93 Pulse Ox 98 Oxygen Delivery Method Nasal Cannula Oxygen Flow Rate (L/min) 2 01/03/23 12:38 Temperature 97.8 F Temperature Source Pulse Rate 64 Respiratory Rate 14 Respiratory Effort Respiratory Pattern Blood Pressure 110/78 Blood Pressure Mean Pulse Ox 92 Oxygen Delivery Method Oxygen Flow Rate (L/min) MDM <SANAZ Downs - Last Filed: 01/03/23 12:38> MDM MDM Narrative Medical decision making narrative: History gathered from: Patient and spouse Patient was evaluated for cough, shortness of breath, and chest pain. She appears well and nontoxic. She was 86 to 92% on room air and placed on 2 L nasal cannula. The rest of her vital signs are stable. She is able to speak in full sentences in no distress but has diminished lung sounds and faint expiratory wheezing. EKG is sinus rhythm no ischemia and troponin is 6 ruling out ACS. CBC and BMP are unremarkable. CXR shows a left-sided pleural effusion likely associated with an infiltrate which fits clinically with the picture of pneumonia. After DuoNeb she was feeling significantly improved and ambulated at 90% on room air. She would like to go home on antibiotics. I prescribed albuterol and doxycycline and discussed return precautions. She was discharged in stable condition. External records reviewed: 03/24/2022 cardiac cath diagnostic showed CAD with no intervention required. Recommended medical therapy. Lab Data Attestation: I reviewed the patient's lab results. Labs: Laboratory Results - last 24 hr 01/03/23 11:43 WBC 9.2 RBC 3.89 L Hgb 11.3 L Hct 35.6 L MCV 91.5 MCH 29.0 MCHC 31.7 L RDW Std Deviation 46.7 H RDW Coeff of Layla 13.9 Plt Count 242 MPV 9.4 Immature Gran % (Auto) 0.300 Neut % (Auto) 66.6 Lymph % (Auto) 19.6 Bland % (Auto) 10.2 H Eos % (Auto) 2.9 Baso % (Auto) 0.4 Absolute Neuts (auto) 6.1 Absolute Lymphs (auto) 1.81 Nucleated RBC % 0 Sodium 141 Potassium 3.8 Chloride 110 H Carbon Dioxide 28.0 Anion Gap 3 L BUN 19 H Creatinine 0.55 Estim Creat Clear Calc 91.10 Est GFR (MDRD) Af Amer 145 Est GFR (MDRD) Non-Af 120 BUN/Creatinine Ratio 34.5 H Glucose 130 H Calcium 9.2 Troponin I High Sens 6 Radiography Chest X-Ray - ED: 2 View, Read by ED Physician and Read by Radiologist Diagnostic Testing: Clinical Impression(s) from Imaging Studies Chest X-Ray 01/03/23 11:53 IMPRESSION: Left pleural effusion with likely associated atelectasis or infiltrate new since previous study. Follow-up recommended to ensure resolution Electronically Signed: Geremias Roque MD at 12:10 EDT , ED attending interpretation of 2 view chest x-ray shows normal heart size, left- sided infiltrate/effusion. EKG Initial EKG: Attestation: I personally reviewed and interpreted this EKG as follows: Interpretation: Sinus Rhythm and No Acute Injury Pattern Comments: Normal sinus rhythm at 95 bpm, no ectopy or acute ischemic changes <Dr. Benson Mendez, DO - Last Filed: 01/03/23 13:12> [facility] Narrative Medical decision making narrative: History gathered from: Patient and spouse Patient was evaluated for cough, shortness of breath, and chest pain. She appears well and nontoxic. She was 86 to 92% on room air and placed on 2 L nasal cannula. The rest of her vital signs are stable. She is able to speak in full sentences in no distress but has diminished lung sounds and faint ex piratory wheezing. EKG is sinus rhythm no ischemia and troponin is 6 ruling out ACS. CBC and BMP are unremarkable. CXR shows a left-sided pleural effusion likely associated with an infiltrate which fits clinically with the picture of pneumonia. After DuoNeb she was feeling significantly improved and ambulated at 90% on room air. She would like to go home on antibiotics. I prescribed albuterol and doxycycline and discussed return precautions. She was discharged in stable condition. External records reviewed: 03/24/2022 cardiac cath diagnostic showed CAD with no intervention required. Recommended medical therapy. Differential: Chest pain, ACS, pneumonia, viral syndrome Attending note: Patient seen and evaluated with pipefitter helper. I perform my own [id number] evaluation. I agree with the plan of work-up. Productive cough for the past 3 days. No fevers myalgias. No nausea or vomiting. Half pack per day smoker. Chest pains with cough. No home oxygen. On arrival pulse ox 86% she was dyspneic. Extended valuation noted wheezing. I my examination status post aerosol treatment improve breath sounds. Heart was regular. No respiratory distress. EKG cardiac work-up is negative. Chest x-ray concerning left lower lobe infiltrate versus effusion or atelectasis. Clinically with pneumonia symptoms. She is ambulate off oxygen she is 90% no respiratory distress and she would like to go home. Prescription for albuterol doxycycline. Return precautions. Lab Data Labs: Laboratory Results - last 24 hr 01/03/23 11:43 WBC 9.2 RBC 3.89 L Hgb 11.3 L Hct 35.6 L MCV 91.5 MCH 29.0 MCHC 31.7 L RDW Std Deviation 46.7 H RDW Coeff of Layla 13.9 Plt Count 242 MPV 9.4 Immature Gran % (Auto) 0.300 Neut % (Auto) 66.6 Lymph % (Auto) 19.6 Bland % (Auto) 10.2 H Eos % (Auto) 2.9 Baso % (Auto) 0.4 Absolute Neuts (auto) 6.1 Absolute Lymphs (auto) 1.81 Nucleated RBC % 0 Sodium 141 Potassium 3.8 Chloride 110 H Carbon Dioxide 28.0 Anion Gap 3 L BUN 19 H Creatinine 0.55 Estim Creat Clear Calc 91.10 Est GFR (MDRD) Af Amer 145 Est GFR (MDRD) Non-Af 120 BUN/Creatinine Ratio 34.5 H Glucose 130 H Calcium 9.2 Troponin I High Sens 6 Radiography Diagnostic Testing: Clinical Impression(s) from Imaging Studies Chest X-Ray 01/03/23 11:53 IMPRESSION: Left pleural effusion with likely associated atelectasis or infiltrate new since previous study. Follow-up recommended to ensure resolution Electronically Signed: Geremias Roque MD at 12:10 EDT Reading Location ID and State: [address] [place] [address] , Service support , Discharge Plan Triage Chief Complaint: Chest Pain ED Midlevel Provider: Becca Nelson ED Provider: Benson Mendez Dx/Rx/DC Orders Clinical Impression: Community acquired pneumonia, Current smoker, Chest pain Instructions: ED Pneumonia (Adult) Prescriptions: New doxycycline hyclate 100 mg capsule 100 mg PO BID 7 Days Qty: 14 0RF albuterol sulfate 90 mcg/actuation aerosol powdr breath activated 2 inh inhalation Q4H PRN (Reason: shortness of breath or wheezing) Qty: 1 0RF Rx Instructions: any standard albuterol inhaler in stock No Action hydroxychloroquine 200 mg tablet 200 mg PO BID losartan 100 mg tablet 100 mg PO DAILY amlodipine 10 mg tablet 10 mg PO DAILY meclizine 25 mg tablet 25 mg PO TID PRN (Reason: dizziness) leflunomide [Arava] 10 mg tablet 20 mg PO DAILY duloxetine 30 mg capsule,delayed release(DR/EC) 60 mg PO QHS famotidine 20 mg tablet 20 mg PO DAILY ibuprofen [Advil] 200 mg tablet 200 mg PO Q6H metformin 1,000 mg tablet 1,000 mg PO BID prednisone 10 mg tablet 10 mg PO DAILY PRN coenzyme Q10 100 mg tablet 100 mg PO DAILY atorvastatin 20 mg tablet 20 mg PO QHS Qty: 30 12RF levothyroxine 150 mcg tablet See Rx Instructions .ROUTE .COMPLEX Qty: 90 0RF Dose Instruction: TAKE 1 TABLET BY MOUTH EVERY DAY Rx Instructions: TAKE 1 TABLET BY MOUTH EVERY DAY Primary Care Provider: Nehemias Arizmendi Referrals: Nehemias Arizmendi MD [Primary Care Provider] - Activity Restrictions/Additional Instructions: Take doxycycline and use the inhaler as needed for wheezing and shortness of breath. 7 or you have more difficulty breathing come back to the emergency room. Disposition Disposition: Home, Self Care Discharge Date/Time: 01/03/23 13:05
[2023-01-03] MEDS: Ipratropium/Albuterol Sulfate 3 ML AMPUL.NEB INHALATION ×2 (11:45→12:57)
[2023-01-03 11:46] VITALS: PULSE 93; RESP 18
[2023-01-03 11:47] LABS: Absolute Lymphocyte Count 1.81 X10^3/uL (0.83-4.51); Absolute Neutrophil Count 6.1 X10^3/uL (2.0-7.7); Basophil# 0.04 X10^3/uL; Basophil% 0.4 % (0-1); Eosinophil# 0.27 X10^3/uL; Eosinophils% 2.9 % (0-5); Hematocrit 35.6 % (37-47); Hemoglobin 11.3 g/dL (12.0-15.0); Lymphocyte # 1.81 X10^3/ul (0.83-4.51); Lymphocyte % 19.6 % (19-41); Mean Corp Hgb Conc 31.7 g/dL (32-36); Mean Corpuscular Volume 91.5 fL (81-99); Mean Platelet Vol. 9.4 fl (6.2-12.0); Monocyte# 0.94 X10^3/uL; Monocyte% 10.2 % (0-10); NRBC Flagged by Analyzer 0 % (0-5); Neutrophil # 6.13 X10^3/uL (2.7-7.7); Neutrophil % 66.6 % (47-70); Platelet Count 242 K/mm3 (150-450); RBC Distribution Width CV 13.9 % (11.6-14.6); RBC Distribution Width SD 46.7 fl (35.1-43.9); Red Blood Count 3.89 M/mm3 (4.2-5.4); White Blood Count 9.2 K/mm3 (4.4-11.0)
--- NOTE | 2023-01-03 11:53 | RAD_ITS ---
STUDY: X-RAY CHEST REASON FOR EXAM: Female, 57 years old. Fever and cough TECHNIQUE: PA and lateral views of the chest. COMPARISON: 02/09/2022 FINDINGS: EKG leads overlie the chest Lungs are expanded with development of left pleural effusion and likely associated atelectasis or infiltrate since the previous study. Follow-up recommended to assure resolution Normal size heart. Normal mediastinum and florian. Normal visualized pulmonary arteries. Normal visualized aortic arch and descending thoracic aorta. There is a rotatory scoliotic curvature of the thoracolumbar spine. Normal visualized ribs, clavicles, and shoulders. There is no demonstrated abnormality of the visualized soft tissue structures of the upper abdomen. RAD/Chest PA and Lateral IMPRESSION: Left pleural effusion with likely associated atelectasis or infiltrate new since previous study. Follow-up recommended to ensure resolution Electronically Signed: Geremias Roque MD at 12:10 EDT ,
[2023-01-03 12:06] LABS: Anion Gap 3 (5-15); BUN 19 mg/dL (7-18); BUN/Creat Ratio 34.5 RATIO (10-20); Calcium,Total 9.2 mg/dL (8.5-10.1); Chloride 110 mmol/L (98-107); Creatinine, Serum 0.55 mg/dL (0.55-1.02); EST Glomerular Filtration Rate 120 mL/min (>60); Est Glom Filt Rate - Afr Amer 145 mL/min (>60); Glucose 130 mg/dL (74-106); Potassium 3.8 mmol/L (3.5-5.1); Sodium Level 141 mmol/L (136-145); Troponin-I HS 6 pg/mL (3.0-54.0)
[2023-01-03 12:23] VITALS: BP 103/89; PULSE 94; RESP 14; O2SAT 95; O2SAT 98
[2023-01-03 12:38] VITALS: BP 110/78; PULSE 64; RESP 14; TEMP 36.6; O2SAT 92
[2023-01-03] MEDS: Doxycycline 100 MG CAPSULE PO (12:53)
== END 2023-01-03 13:05 | disposition home or self-care (01) ==
PROVIDERS: Physician Assistant; Emergency Provider Emergency Medicine; PCP Family Medicine; Visit Provider Emergency Medicine
DX: J18.9 Pneumonia, unspecified organism (principal); R07.9 Chest pain, unspecified; I25.10 Atherosclerotic heart disease of native coronary artery without angina pectoris; F17.210 Nicotine dependence, cigarettes, uncomplicated; Z86.718 Personal history of other venous thrombosis and embolism
CPT/HCPCS: 71046; 80048; 84484; 85025; 93005; 94640; 99284; A4216

== ENCOUNTER 2023-01-05 14:47 | Emergency (ER) | payer OTHER, SELFPAY ==
[2023-01-05] VITALS (17 sets, daily range): BP systolic 89–124; BP diastolic 59–82; PULSE 94–105; RESP 15–31; TEMP 36.2–37.1; O2SAT 87–99; BMI 37.7
--- NOTE | 2023-01-05 15:18 | EKG12_ITS ---
Test Reason : CP/SOB Blood Pressure : / mmHG Vent. Rate : 102 BPM Atrial Rate : 102 BPM P-R Int : 198 ms QRS Dur : 092 ms QT Int : 364 ms P-R-T Axes : 031 050 042 degrees QTc Int : 474 ms Sinus tachycardia Low voltage QRS Borderline ECG Confirmed by ISMA LINDA MD ([id number]), loan expeditor FRANKO CAROLINA ([id number]) on 01/06/2023 10:25:27 AM Referred By: GAETANO Confirmed By:ISMA LINDA MD
[2023-01-05] MEDS: Ondansetron 4 MG/2 ML Vial IV (15:27)
[2023-01-05] MEDS: 0.9% Normal Saline 1,000 ML 1000 ML IV (15:27)
[2023-01-05] MEDS: Morphine 2 MG/ML Syringe IV (15:27)
--- NOTE | 2023-01-05 15:27 | EX.ED.DYSGE1 ---
HPI History of Present Illness Chief Complaint: Shortness of Breath Narrative Narrative: 57-year-old female presenting with chest pain and shortness of breath. She was seen 2 days ago for similar symptoms. She initially hypoxic but after breathing treatments improved. She was sent home on doxycycline. She states been taking it but she is not doing any better. She initially had fevers and chills but these have resolved. She feels generalized weakness. She is short of breath. She is coughing. Patient still having chest pain which she describes as an ache in the center of her chest but radiates to the back. She is not having ripping or tearing sensation. Patient states he is never had an AR. She does have diabetes, hypertension, hyperlipidemia. [facility] Medical History Abnormal cardiac CT angiography Back pain Cardiology follow-up encounter DVT (deep venous thrombosis) Essential hypertension Heartburn High cholesterol History of echocardiogram History of Holter monitoring History of left heart catheterization (LHC) (~03/24/22) History of steroid therapy History of stress test Hypertension Kyphosis Leg cramps Lightheadedness Loss of hearing Mixed hyperlipidemia Near syncope Rheumatoid arthritis Shortness of breath on exertion Smoker Tachycardia Thyroid disease Vertigo Wears dentures Wears glasses Home Medications meclizine 25 mg tablet 25 mg PO TID PRN dizziness 12/16/21 [History Last Taken Unknown] amlodipine 10 mg tablet 10 mg PO DAILY 01/01/22 [History Last Taken 04/15/22] hydroxychloroquine 200 mg tablet 200 mg PO BID 01/01/22 [History Last Taken Unknown] leflunomide 10 mg tablet (Arava) 20 mg PO DAILY 01/01/22 [History Last Taken Unknown] losartan 100 mg tablet 100 mg PO DAILY 01/01/22 [History Last Taken 04/15/22] atorvastatin 20 mg tablet 20 mg PO QHS #30 tabs 04/15/22 [Rx Last Taken Unknown] duloxetine 30 mg capsule,delayed release 60 mg PO QHS 09/16/22 [History Last Taken Unknown] famotidine 20 mg tablet 20 mg PO DAILY 09/16/22 [History Last Taken Unknown] ibuprofen 200 mg tablet (Advil) 200 mg PO Q6H 09/16/22 [History Last Taken Unknown] levothyroxine 150 mcg tablet See Rx Instructions .Route .COMPLEX #90 tabs 11/02/22 [Rx Last Taken Unknown] coenzyme Q10 100 mg tablet 100 mg PO DAILY 11/16/22 [History Last Taken Unknown] metformin 1,000 mg tablet 1,000 mg PO BID 11/16/22 [History Last Taken Unknown] prednisone 10 mg tablet 10 mg PO DAILY PRN ARTHRITIS FLARE UP 11/16/22 [History Last Taken Unknown] albuterol sulfate 90 mcg/actuation breath activated powder inhaler 2 inh inhalation Q4H PRN shortness of breath or wheezing #1 ea 01/03/23 [Rx Last Taken Unknown] doxycycline hyclate 100 mg capsule 100 mg PO BID 7 days #14 caps 01/03/23 [Rx Last Taken Unknown] Allergy/AdvReac Type Severity Reaction Status Date / Time Sulfa (Sulfonamide Allergy Unknown Hives Verified 01/05/23 14:50 Antibiotics) Family History Sister Breast cancer Hypertension Diabetes Sister Myocardial infarction, Onset Age: 30 Surgical History History of appendectomy History of cardiac catheterization (~02/2022) History of laparoscopic cholecystectomy History of total thyroidectomy S/P thyroid biopsy (~02/2022) Social History Smoking Status: Current every day smoker tobacco type: cigarettes Tobacco: How many years used: 30 second hand exposure: Yes alcohol intake: current alcohol intake frequency: holidays/special occasions only substance use type: does not use caffeine: Yes Type: coffee Number of servings: 3 seatbelt use: always EXAM Physical Exam Const Vital Signs: 01/05/23 14:49 01/05/23 15:04 01/05/23 15:07 Temperature 97.5 F L Temperature Source Temporal Pulse Rate 103 H Respiratory Rate 18 Respiratory Effort Respiratory Depth Respiratory Pattern Blood Pressure 89/65 L 120/74 Blood Pressure Mean 73 89 Pulse Ox 90 88 Oxygen Delivery Method Room Air Room Air Room Air Oxygen Flow Rate (L/min) 01/05/23 15:08 01/05/23 15:08 01/05/23 15:30 Temperature 97.9 F Temperature Source Temporal Pulse Rate 101 H Respiratory Rate 15 Respiratory Effort Short of Breath Labored Accessory Muscle Use Respiratory Depth Shallow Respiratory Pattern Tachypnea Blood Pressure 120/74 Blood Pressure Mean 89 Pulse Ox 93 Oxygen Delivery Method Nasal Cannula Nasal Cannula Room Air Oxygen Flow Rate (L/min) 2 2 01/05/23 15:53 01/05/23 16:02 01/05/23 16:02 Temperature 97.2 F L Temperature Source Temporal Pulse Rate 94 94 95 Respiratory Rate 18 18 20 H Respiratory Effort Respiratory Depth Respiratory Pattern Normal Blood Pressure 92/73 92/73 Blood Pressure Mean 79 79 Pulse Ox 99 94 Oxygen Delivery Method Nasal Cannula Nasal Cannula Oxygen Flow Rate (L/min) 2 2 01/05/23 16:27 01/05/23 16:40 01/05/23 17:28 Temperature 98.3 F Temperature Source Oral Pulse Rate 98 99 103 H Respiratory Rate 24 H 26 H 18 Respiratory Effort Respiratory Depth Respiratory Pattern Blood Pressure 111/72 106/82 H 103/75 Blood Pressure Mean 85 90 84 Pulse Ox 90 91 93 Oxygen Delivery Method Nasal Cannula Nasal Cannula Nasal Cannula Oxygen Flow Rate (L/min) 2 2 3 01/05/23 17:28 01/05/23 19:05 01/05/23 19:05 Temperature 98 F Temperature Source Oral Pulse Rate 103 H 103 H 98 Respiratory Rate 23 H 18 20 H Respiratory Effort Respiratory Depth Respiratory Pattern Blood Pressure 108/71 99/68 99/68 Blood Pressure Mean 83 78 78 Pulse Ox 91 94 93 Oxygen Delivery Method Nasal Cannula Nasal Cannula Nasal Cannula Oxygen Flow Rate (L/min) 3 3 3 01/05/23 20:26 01/05/23 20:26 01/05/23 21:26 Temperature 98.7 F Temperature Source Oral Pulse Rate 102 H 104 H 103 H Respiratory Rate 27 H 24 H 26 H Respiratory Effort Respiratory Depth Respiratory Pattern Blood Pressure 106/72 106/72 109/73 Blood Pressure Mean 83 83 85 Pulse Ox 92 90 90 Oxygen Delivery Method Nasal Cannula Nasal Cannula Nasal Cannula Oxygen Flow Rate (L/min) 3 3 3 01/05/23 22:11 01/05/23 22:46 01/05/23 23:02 Temperature Temperature Source Pulse Rate 104 H 103 H 105 H Respiratory Rate 20 H 23 H 31 H Respiratory Effort Respiratory Depth Respiratory Pattern Blood Pressure 119/59 L 114/79 104/82 H Blood Pressure Mean 79 90 89 Pulse Ox 95 91 87 Oxygen Delivery Method Room Air Nasal Cannula Nasal Cannula Oxygen Flow Rate (L/min) 3 3 01/05/23 23:05 01/05/23 23:15 Temperature Temperature Source Pulse Rate 102 H Respiratory Rate 28 H Respiratory Effort Respiratory Depth Respiratory Pattern Blood Pressure 124/78 H Blood Pressure Mean 93 Pulse Ox 90 91 Oxygen Delivery Method Nasal Cannula Nasal Cannula Oxygen Flow Rate (L/min) 4 4 MDM MDM MDM Narrative Medical decision making narrative: Patient presenting for chest pain and hypoxia. She has been short of breath for couple days. She states that she started initially with fever and chills prior to her recent visit to the ER. She had continued chest pain which is retrosternal. She is also coughing. She does not have any more fevers or chills but she is severely short of breath. She had a normal cardiac catheterization this year and a normal echo. Differential includes acute coronary syndrome, CHF, pneumonia, PE, costochondritis, COPD exacerbation. CBC was obtained to assess white blood cell count, hemoglobin, platelets, differential. BMP to assess renal function, electrolytes. High-sensitivity troponin EKG to rule out ischemic source. Chest x-ray to rule out pneumonia. BNP will used to assess for CHF. D-dimer will be obtained to assess for PE. Patient was given a liter normal saline. She is given initial dose of morphine for pain. She was given Zofran for nausea. CBC shows a normal white blood cell count. Hemoglobin stable 11.0. Platelets normal. Renal function and electrolytes within normal limits. Glucose 172 without anion gap. High-sensitivity troponin is 6 and with pain constantly for the last couple days and ablations at delta. BNP was 45.4. Chest x-ray on my interpretation is consistent with CHF and pleural effusions. It is possible she could have pneumonia however she does not have a white blood cell count. D-dimer was elevated at 5.7 today and had a CTA of the chest which showed pneumonia versus pleural effusions versus CHF. It does show a pericardial effusion which is moderate. Discussed with the hospitalist for admission who spoke to cardiology here and was recommended for the patient be transferred due to the pericardial effusion in case she needs a pericardial window. Discussed with Dr. Wallace at [place] because this is where the patient wanted to be transferred. He accepted the transfer. She has been stable here. I gave her another dose of fentanyl for pain because her blood pressure dropped with the morphine. All questions were answered. Impression: 1. Chest pain 2. CHF 3. Hypoxia Lab Data Labs: Laboratory Results - last 24 hr 01/05/23 15:02 WBC 10.3 RBC 3.87 L Hgb 11.0 L Hct 34.8 L MCV 89.9 MCH 28.4 MCHC 31.6 L RDW Std Deviation 45.4 H RDW Coeff of Layla 13.9 Plt Count 278 MPV 9.6 Immature Gran % (Auto) 0.500 Neut % (Auto) 76.7 H Lymph % (Auto) 10.1 L Teller % (Auto) 10.0 Eos % (Auto) 2.3 Baso % (Auto) 0.4 Absolute Neuts (auto) 7.9 H Absolute Lymphs (auto) 1.04 Nucleated RBC % 0 D-Dimer Quant (PE/DVT) 5.70 H* Sodium 139 Potassium 3.5 Chloride 107 Carbon Dioxide 27.0 Anion Gap 5 BUN 18 Creatinine 0.60 Estim Creat Clear Calc 83.51 Est GFR (MDRD) Af Amer 131 Est GFR (MDRD) Non-Af 108 BUN/Creatinine Ratio 29.9 H Glucose 172 H Calcium 9.1 Troponin I High Sens 6 B-Natriuretic Peptide 45.4 Radiography Diagnostic Testing: Clinical Impression(s) from Imaging Studies Chest X-Ray 01/05/23 15:43 IMPRESSION: Progression of the bibasilar infiltration and/or atelectasis with blunting of both costophrenic angles worse on the left side superimposed on mild degree of CHF. Electronically Signed: Kt Healy MD at 15:54 EDT , Chest CTA 01/05/23 16:55 IMPRESSION: CTA chest examination, without a demonstrated pulmonary embolism or arterial dissection. Bilateral edema or pneumonia and pleural effusions. Pericardial effusion. Electronically Signed: Jeremiah Orellana MD at 18:57 EDT , Discharge Plan Triage Chief Complaint: Shortness of Breath ED Provider: Wayne Germain Dx/Rx/DC Orders Prescriptions: No Action hydroxychloroquine 200 mg tablet 200 mg PO BID losartan 100 mg tablet 100 mg PO DAILY amlodipine 10 mg tablet 10 mg PO DAILY meclizine 25 mg tablet 25 mg PO TID PRN (Reason: dizziness) leflunomide [Arava] 10 mg tablet 20 mg PO DAILY duloxetine 30 mg capsule,delayed release(DR/EC) 60 mg PO QHS famotidine 20 mg tablet 20 mg PO DAILY ibuprofen [Advil] 200 mg tablet 200 mg PO Q6H metformin 1,000 mg tablet 1,000 mg PO BID prednisone 10 mg tablet 10 mg PO DAILY PRN (Reason: ARTHRITIS FLARE UP) coenzyme Q10 100 mg tablet 100 mg PO DAILY Hold Instructions: Pt has been DC'd doxycycline hyclate 100 mg capsule 100 mg PO BID 7 Days Qty: 14 0RF albuterol sulfate 90 mcg/actuation aerosol powdr breath activated 2 inh inhalation Q4H PRN (Reason: shortness of breath or wheezing) Qty: 1 0RF Rx Instructions: any standard albuterol inhaler in stock atorvastatin 20 mg tablet 20 mg PO QHS Qty: 30 12RF levothyroxine 150 mcg tablet See Rx Instructions .ROUTE .COMPLEX Qty: 90 0RF Dose Instruction: TAKE 1 TABLET BY MOUTH EVERY DAY Rx Instructions: TAKE 1 TABLET BY MOUTH EVERY DAY Primary Care Provider: Nehemias Arizmendi Referrals: Nehemias Arizmendi MD [Primary Care Provider] -
--- NOTE | 2023-01-05 15:43 | RAD_ITS ---
STUDY: X-RAY CHEST REASON FOR EXAM: Female, 57 years old. Chest pain TECHNIQUE: Single AP portable view of the chest. COMPARISON: Comparison is made with prior study January 03, 2023. FINDINGS: EKG electrodes are seen. Vascular congestion and mild CHF. Bibasilar atelectasis and/or infiltrates worse on the left side with blunting of both costophrenic angles more prominent on the left side. Follow-up is recommended. There is borderline cardiomegaly. Normal mediastinum and florian. Normal visualized pulmonary arteries. Normal visualized aortic arch and descending thoracic aorta. There is a dextroscoliosis of the thoracic spine. Normal visualized ribs, clavicles, and shoulders. There is no demonstrated abnormality of the visualized soft tissue structures of the upper abdomen. RAD/Chest 1 View (Portable) IMPRESSION: Progression of the bibasilar infiltration and/or atelectasis with blunting of both costophrenic angles worse on the left side superimposed on mild degree of CHF. Electronically Signed: Kt Healy MD at 15:54 EDT ,
[2023-01-05 15:47] LABS: Absolute Lymphocyte Count 1.04 X10^3/uL (0.83-4.51); Absolute Neutrophil Count 7.9 X10^3/uL (2.0-7.7); Basophil# 0.04 X10^3/uL; Basophil% 0.4 % (0-1); Eosinophil# 0.24 X10^3/uL; Eosinophils% 2.3 % (0-5); Hematocrit 34.8 % (37-47); Lymphocyte # 1.04 X10^3/ul (0.83-4.51); Lymphocyte % 10.1 % (19-41); Mean Corp Hgb Conc 31.6 g/dL (32-36); Mean Corpuscular Hgb 28.4 pg (27.0-32.0); Mean Corpuscular Volume 89.9 fL (81-99); Mean Platelet Vol. 9.6 fl (6.2-12.0); Monocyte# 1.03 X10^3/uL; NRBC Flagged by Analyzer 0 % (0-5); Neutrophil # 7.89 X10^3/uL (2.7-7.7); Neutrophil % 76.7 % (47-70); Platelet Count 278 K/mm3 (150-450); RBC Distribution Width CV 13.9 % (11.6-14.6); RBC Distribution Width SD 45.4 fl (35.1-43.9); Red Blood Count 3.87 M/mm3 (4.2-5.4); White Blood Count 10.3 K/mm3 (4.4-11.0)
[2023-01-05] MEDS: Albuterol 2.5 MG/3 ML VIAL.NEB. INHALATION (15:50)
[2023-01-05] MEDS: Ipratropium/Albuterol Sulfate 3 ML AMPUL.NEB INHALATION (15:50)
[2023-01-05 16:02] LABS: Anion Gap 5 (5-15); BUN 18 mg/dL (7-18); BUN/Creat Ratio 29.9 RATIO (10-20); Calcium,Total 9.1 mg/dL (8.5-10.1); Chloride 107 mmol/L (98-107); EST Glomerular Filtration Rate 108 mL/min (>60); Est Glom Filt Rate - Afr Amer 131 mL/min (>60); Estimated Creatinine Clearance 83.51 ml/min; Glucose 172 mg/dL (74-106); Potassium 3.5 mmol/L (3.5-5.1); Sodium Level 139 mmol/L (136-145); Troponin-I HS 6 pg/mL (3.0-54.0)
[2023-01-05 16:20] LABS: BNP,B-Type NATRIURETIC PEPTIDE 45.4 pg/mL (0-100)
--- NOTE | 2023-01-05 16:53 | ED.RN ---
THIS RN CALLED LAB TO INQUIRE ABOUT D-DIMER LAB VALUE PENDING AT [id number].
--- NOTE | 2023-01-05 16:55 | CT_ITS ---
STUDY: CTA CHEST REASON FOR EXAM: Female, 57 years old. Chest pain RADIATION DOSAGE (If Supplied By Facility): CTDIvol = ( 13.77 ) mGy, DLP = ( 525.19 ) mGycm TECHNIQUE: The examination was performed with the intravenous administration of IV 100mL [id number]. Post-processing of the angiographic images was performed, with multiplanar reformation and 3D reconstruction. Individualized dose optimization techniques were used for this CT. COMPARISON: Chest x-ray January 05, 2023. Chest CT January 02, 2021 FINDINGS: Normal enhancement of the main pulmonary artery and right and left pulmonary arteries. Normal enhancement of the bilateral peripheral pulmonary arteries. There is no demonstrated pulmonary embolism. There is atherosclerotic calcification of the thoracic and visualized upper abdominal aorta. There is no demonstrated aortic dissection. There are calcifications of the coronary arteries. There is a moderate pericardial effusion. Normal mediastinum. Normal hilar regions. Normal visualized trachea and bronchi. The lungs are well expanded. There is right mid and bilateral lower lung airspace consolidation. There is moderate left pleural effusion. A small right pleural effusion. Normal chest wall structures. There is thoracic dextroscoliosis with degenerative change of the spine Normal visualized upper abdomen. CT/CTA Chest W/WO Contrast IMPRESSION: CTA chest examination, without a demonstrated pulmonary embolism or arterial dissection. Bilateral edema or pneumonia and pleural effusions. Pericardial effusion. Electronically Signed: Jeremiah Orellana MD at 18:57 EDT ,
[2023-01-05] MEDS: 0.9% Normal Saline 1,000 ML 999 ML IV (17:22)
[2023-01-05] MEDS: fentaNYL 100 MCG/2 ML Ampul 25 MCG IV ×2 (17:22→20:21)
[2023-01-06] VITALS: BP 125/74; PULSE 101; RESP 20; O2SAT 91
[2023-01-06 00:54] VITALS: BP 112/78; PULSE 102; RESP 22; TEMP 36.6; O2SAT 94
[2023-01-06 01:00] VITALS: BP 119/84; PULSE 101; RESP 22; O2SAT 94
[2023-01-06 02:00] VITALS: BP 139/86; PULSE 100; RESP 24; O2SAT 95
== END 2023-01-06 04:49 | disposition short-term general hospital (02) ==
LOC: ED 15:40
PROVIDERS: Emergency Provider Student in an Organized Health Care Education/Training Program; PCP Family Medicine; Visit Provider Student in an Organized Health Care Education/Training Program
DX: R07.9 Chest pain, unspecified (principal); I50.9 Heart failure, unspecified; I11.0 Hypertensive heart disease with heart failure; E11.9 Type 2 diabetes mellitus without complications; R09.02 Hypoxemia; F17.210 Nicotine dependence, cigarettes, uncomplicated; E78.00 Pure hypercholesterolemia, unspecified; Z79.899 Other long term (current) drug therapy; Z79.84 Long term (current) use of oral hypoglycemic drugs; Z86.718 Personal history of other venous thrombosis and embolism
CPT/HCPCS: 71045; 71275; 80048; 83880; 84484; 85025; 85379; 93005; 94640; 96361; 96374; 96375; 96376; 99285; J7030; J7050; Q9967; A4216; J2405

== ENCOUNTER → 2023-01-11 | Outpatient (CLI) | payer OTHER, SELFPAY ==
[2023-01-11 18:04] LABS: Anion Gap 4 (5-15); BUN 31 mg/dL (7-18); BUN/Creat Ratio 42.5 RATIO (10-20); Calcium,Total 9.3 mg/dL (8.5-10.1); Chloride 104 mmol/L (98-107); Creatinine, Serum 0.73 mg/dL (0.55-1.02); EST Glomerular Filtration Rate 87 mL/min (>60); Est Glom Filt Rate - Afr Amer 105 mL/min (>60); Glucose 204 mg/dL (74-106); Potassium 3.8 mmol/L (3.5-5.1); Sodium Level 140 mmol/L (136-145)
== END | disposition home or self-care (01) ==
LOC: MTLAB 16:45
PROVIDERS: PCP Family Medicine; Referring Provider Family Medicine; Visit Provider Family Medicine
DX: J18.9 Pneumonia, unspecified organism (principal)
CPT/HCPCS: 36415; 80048

== ENCOUNTER → 2023-03-30 | Outpatient (CLI) | payer OTHER, SELFPAY ==
[2023-03-30 17:47] LABS: Absolute Neutrophil Count 4.7 X10^3/uL (2.0-7.7); Basophil# 0.07 X10^3/uL; Basophil% 0.9 % (0-1); Eosinophil# 0.22 X10^3/uL; Eosinophils% 2.8 % (0-5); Hematocrit 43.9 % (37-47); Hemoglobin 13.7 g/dL (12.0-15.0); Lymphocyte % 29.1 % (19-41); Mean Corp Hgb Conc 31.2 g/dL (32-36); Mean Corpuscular Hgb 27.5 pg (27.0-32.0); Mean Corpuscular Volume 88.2 fL (81-99); Mean Platelet Vol. 10.4 fl (6.2-12.0); Monocyte# 0.56 X10^3/uL; Monocyte% 7.1 % (0-10); NRBC Flagged by Analyzer 0 % (0-5); Neutrophil # 4.72 X10^3/uL (2.7-7.7); Neutrophil % 59.7 % (47-70); Platelet Count 248 K/mm3 (150-450); RBC Distribution Width CV 15.6 % (11.6-14.6); RBC Distribution Width SD 49.9 fl (35.1-43.9); Red Blood Count 4.98 M/mm3 (4.2-5.4); White Blood Count 7.9 K/mm3 (4.4-11.0)
[2023-03-30 18:20] LABS: ALB/GLOB Ratio 0.8 RATIO (0.9-2.4); AST(SGOT) 12 U/L (15-37); Alanine Aminotransfer ALT/SGPT 15 U/L (13-56); Albumin, Serum 3.4 g/dL (3.2-5.0); Alkaline Phosphatase 93 U/L (45-117); Anion Gap 7 (5-15); BUN 22 mg/dL (7-18); BUN/Creat Ratio 25.7 RATIO (10-20); Calcium,Total 9.2 mg/dL (8.5-10.1); Chloride 108 mmol/L (98-107); Creatinine, Serum 0.86 mg/dL (0.55-1.02); EST Glomerular Filtration Rate 72 mL/min (>60); Est Glom Filt Rate - Afr Amer 87 mL/min (>60); Globulin 4.3 g/dL (2.2-4.2); Glucose 122 mg/dL (74-106); Potassium 4.3 mmol/L (3.5-5.1); Protein, Total 7.7 g/dL (6.4-8.2); Sodium Level 140 mmol/L (136-145)
== END | disposition home or self-care (01) ==
LOC: MFPLAB 15:49
PROVIDERS: PCP Family Medicine; Visit Provider Family Medicine
DX: M05.79 Rheumatoid arthritis with rheumatoid factor of multiple sites without organ or systems involvement (principal); M40.204 Unspecified kyphosis, thoracic region; I10 Essential (primary) hypertension; Z79.899 Other long term (current) drug therapy
CPT/HCPCS: 36415; 80053; 85025

== ENCOUNTER → 2023-05-17 | Outpatient (CLI) | payer OTHER, SELFPAY ==
[2023-05-17 13:47] LABS: Free T3 1.9 pg/mL (2.18-3.98); T4 Free Direct 1.43 ng/dL (0.76-1.46)
== END | disposition home or self-care (01) ==
LOC: MTLAB 11:14
PROVIDERS: PCP Family Medicine; Referring Provider Family Medicine; Visit Provider Family Medicine
DX: E03.9 Hypothyroidism, unspecified (principal)
CPT/HCPCS: 36415; 84439; 84443; 84481

== ENCOUNTER → 2023-06-30 | Outpatient (CLI) | payer OTHER, SELFPAY ==
--- OUTSIDE RECORDS SUMMARY | 2023-06-30 16:11 | XMS RPT_ITS | CCD ---
Author Name Unknown Address [address] [place] [address] Organization [facility] Care Team Providers Care Psychiatric Technician Assistant Name Role Phone TAMEKA HAMMOND, DR BECKY Sultana Primary Care Physician EVELYN HAMMOND, ARIANA Admitting Unavailable TAMEKA HAMMOND, DR BECKY Sultana Primary Care Unavailadele POSEY MD, JONATHAN Attending Unavailable TAMEKA HAMMOND, DR BECKY Sultana Consulting Unavailadele POSEY MD, JONATHAN Consulting Unavailable ALEKS PÉREZ MD, WINIFRED Consulting Unavailable EDUARDO HAMMOND, NIHAD Consulting Unavailable Allergies Allergy Classification Reported Allergen(s) Allergy Type Date of Onset Reaction(s) Facility (1 source) Sulfamethoxazole / Trimethoprim; Translations: [sulfamethoxazole-tri methoprim] Drug Allergy [facility] (1 source) Sulfonamides (Antibiotic); Translations: [sulfa drugs] Drug allergy [facility] Medications Current Medications Medication Drug Class(es) Dates Sig (Normalized) Sig (Original) albuterol MDI (90 mcg/inh) CFC free inhalation aerosol (1 source) Start: 01-07-20 take 1 puff(s) by inhalation every two hours as needed for wheezing albuterol MDI (90 mcg/inh) CFC free inhalation aerosol 1 puff(s), Inhalation, q2h, PRN as needed for wheezing, # 18 gram(s), 0 Refill(s) Start Date: 01/06/23 Status: Ordered amLODIPine 10 mg oral tablet (1 source) Dihydropyridine Calcium Channel Garcia Start: 01-07-20 take 1 dose by mouth once daily amLODIPine Dose : 10 mg =, Oral, qDay, 0 Refill(s) Start Date: 01/06/23 Status: Ordered atorvastatin 20 mg oral tablet (1 source) HMG-CoA Reductase Inhibitor Start: 01-07-20 atorvastatin 20 mg oral tablet Dose : 20 mg = 1 tab(s), Oral, qHS, 0 Refill(s) Start Date: 01/06/23 Status: Ordered Coenzyme Q10 (1 source) Start: 01-07-20 take 1 dose by mouth once daily Coenzyme Q10 Dose : 100 mg =, Oral, qDay, 0 Refill(s) Start Date: 01/06/23 Status: Ordered DULoxetine 30 mg delayed release oral capsule (1 source) Serotonin and Norepinephrine Reuptake Inhibitor Start: 01-07-20 DULoxetine 30 mg oral delayed release capsule Dose : 60 mg = 2 cap(s), Oral, qHS, 0 Refill(s) Start Date: 01/06/23 Status: Ordered famotidine 20 mg oral tablet (1 source) Histamine-2 Receptor Antagonist Start: 01-07-20 famotidine 20 mg oral tablet Dose : 20 mg = 1 tab(s), Oral, qDay, 0 Refill(s) Start Date: 01/06/23 Status: Ordered furosemide 20 mg oral tablet (1 source) Loop Diuretic Start: 01-10-20 furosemide 20 mg oral tablet Dose : 20 mg = 1 tab(s), Oral, qDay, # 30 tab(s), 0 Refill(s), Pharmacy: [facility]/pharmacy #[id number], 160, cm, 01/06/23 6:00:00 EDT, Height Start Date: 01/09/23 Status: Ordered hydroxychloroquine sulfate 200 mg oral tablet (1 source) Antimalarial, Antirheumatic Agent Start: 03-11-20 hydroxychloroquine 200 mg oral tablet Dose : 200 mg = 1 tab(s), Oral, BID, 0 Refill(s) Start Date: 03/11/18 Status: Ordered ibuprofen 200 mg oral tablet (1 source) Nonsteroidal Anti-inflammatory Drug Start: 01-07-20 take 1 dose by mouth every six hours as needed for pain ibuprofen Dose : 200 mg =, Oral, q6hr, PRN as needed for pain, 0 Refill(s) Start Date: 01/06/23 Status: Ordered leflunomide 20 mg oral tablet (1 source) Antirheumatic Agent Start: 03-11-20 leflunomide 20 mg oral tablet Dose : 20 mg = 1 tab(s), Oral, qDay, 0 Refill(s) Start Date: 03/11/18 Status: Ordered Thyroxine (1 source) l-Thyroxine Start: 01-07-20 take 1 dose by mouth once daily levothyroxine Dose : 150 mcg =, Oral, qDay, 0 Refill(s) Start Date: 01/06/23 Status: Ordered losartan potassium 100 mg oral tablet (1 source) Angiotensin 2 Receptor Garcia Start: 01-07-20 losartan 100 mg oral tablet Dose : 100 mg = 1 tab(s), Oral, qDay, 0 Refill(s) Start Date: 01/06/23 Status: Ordered meclizine hydrochloride 25 mg oral tablet (1 source) Antiemetic Start: 01-07-20 meclizine 25 mg oral tablet Dose : 25 mg = 1 tab(s), Oral, TID, PRN as needed for dizziness, 0 Refill(s) Start Date: 01/06/23 Status: Ordered metFORMIN hydrochloride 1000 mg oral tablet (1 source) Biguanide Start: 01-07-20 take 1 dose by mouth twice daily MetFORMIN (Eqv-Fortamet) Dose : 1,000 mg =, Oral, BID, 0 Refill(s) Start Date: 01/06/23 Status: Ordered predniSONE 10 mg oral tablet (1 source) Start: 01-11-20 End: 01-23-20 prednisone 10mg tab (TAPER) Taper 40-30-20-10 x 3 days each dose, Oral, qDay, Take with food/meal, # 30 tab(s), 0 Refill(s), Pharmacy: [facility]/pharmacy #[id number], 160, cm, 01/06/23 6:00:00 EDT, Height Start Date: 01/10/23 Stop Date: 01/22/23 Status: Ordered Problems Problem Classification Problem Date Documented Da te Episodic/Chronic Conditions associated with dizziness or vertigo (1 source) Dizziness and giddiness; Translations: [Dizziness and giddiness] Episodic Coronary atherosclerosis and other heart disease (1 source) Coronary atherosclerosis; Translations: [Atherosclerotic heart disease of [place] coronary artery with other forms of angina pectoris] Chronic Diabetes mellitus without complication (2 sources) Type 2 diabetes mellitus without complication; Translations: [Type 2 diabetes mellitus without complications] Onset: 01-08-2023 Chronic Disorders of lipid metabolism (1 source) Hyperlipidemia; Translations: [Hyperlipidemia, unspecified] Chronic Essential hypertension (1 source) Hypertensive disorder 03-11-2018 Chronic Hypertension with complications and secondary hypertension (1 source) Hypertensive heart failure; Translations: [Hypertensive heart disease with heart failure] Chronic Osteoarthritis (1 source) Arthritis 03-11-2018 Chronic Pancreatic disorders (not diabetes) (1 source) Chronic pancreatitis; Translations: [Other chronic pancreatitis] Chronic Luisa-; endo-; and myocarditis; cardiomyopathy (except that caused by tuberculosis or sexually transmitted disease) (2 sources) Pericardial effusion - noninflammatory; Translations: [Other pericardial effusion (noninflammatory)] Onset: 01-08-2023 Episodic Pleurisy; pneumothorax; pulmonary collapse (2 sources) Pleural effusion; Translations: [Pleural effusion, not elsewhere classified] Onset: 01-08-2023 Episodic Pneumonia (except that caused by tuberculosis or sexually transmitted disease) (1 source) Pneumonia; Translations: [Pneumonia, unspecified organism] Episodic Residual codes; unclassified (1 source) Tobacco user; Translations: [Tobacco use] Episodic Residual codes; unclassified (1 source) H/O: Disorder 03-11-2018 Episodic Respiratory failure; insufficiency; arrest (adult) (1 source) Acute respiratory failure; Translations: [Acute respiratory failure with hypoxia] Episodic Rheumatoid arthritis and related disease (1 source) Rheumatoid arthritis; Translations: [Rheumatoid arthritis, unspecified] Chronic Results Test Name Value Interpretation Reference Range Facil ity Vital Signs Date Time Vital Sign Value Performing Clinician Faci adolfo 01-09-2023 13:40-0400 Heart rate 99 /min ARIANA YEBOAH MD [facility] 01-09-2023 13:35-0400 Heart rate 102 /min ARIANA YEBOAH MD [facility] 01-09-2023 13:03-0400 Heart rate 88 /min ARIANA YEBOAH MD [facility] 01-09-2023 13:03-0400 Respiratory rate 20 /min ARIANA YEBOAH MD [address] [place] [address] 01-09-2023 13:01-0400 Heart rate 89 /min ARIANA YEBOAH MD [address] [place] [address] 01-09-2023 10:59-0400 Body temperature 98.24 [degF] ARIANA YEBOAH MD [address] [place] [address] 01-09-2023 10:59-0400 Diastolic Blood Pressure Non-Invasive 86 1 ARIANA YEBOAH MD [address] [place] [address] 01-09-2023 10:59-0400 Reason For Taking VItal Signs ARIANA YEBOAH MD [address] [place] [address] 01-09-2023 10:59-0400 Respiratory rate 18 /min ARIANA YEBOAH MD [address] [place] [address] 01-09-2023 10:59-0400 Systolic Blood Pressure Non-Invasive 118 1 ARIANA YEBOAH MD [address] [place] [address] 01-09-2023 07:45-0400 Body temperature 97.88 [degF] ARIANA YEBOAH MD [address] [place] [address] 01-09-2023 07:45-0400 Diastolic Blood Pressure Non-Invasive 62 1 ARIANA YEBOAH MD [address] [place] [address] 01-09-2023 07:45-0400 Systolic Blood Pressure Non-Invasive 115 1 ARIANA YEBOAH MD [address] [place] [address] 01-09-2023 06:12-0400 Heart rate 84 /min ARIANA YEBOAH MD [address] [place] [address] 01-09-2023 06:12-0400 Respiratory rate 20 /min ARIANA YEBOAH MD [address] [place] [address] 01-09-2023 03:15-0400 Blood Pressure Location ARIANA YEBOAH MD [address] [place] [address] 01-09-2023 03:15-0400 Blood Pressure Method ARIANA YEBOAH MD [address] [place] [address] 01-09-2023 03:15-0400 Body temperature 97.88 [degF] ARIANA YEBOAH MD [address] [place] [address] 01-09-2023 03:15-0400 Diastolic Blood Pressure Non-Invasive 71 1 ARIANA YEBOAH MD [address] [place] [address] 01-09-2023 03:15-0400 Mean blood pressure 91 mm[Hg] ARIANA YEBOAH MD [address] [place] [address] 01-09-2023 03:15-0400 Reason For Taking VItal Signs ARIANA YEBOAH MD [address] [place] [address] 01-09-2023 03:15-0400 Systolic Blood Pressure Non-Invasive 137 1 ARIANA YEBOAH MD [address] [place] [address] 01-09-2023 00:19-0400 Blood Pressure Location ARIANA YEBOAH MD [address] [place] [address] 01-09-2023 00:19-0400 Blood Pressure Method ARIANA YEBOAH MD [address] [place] [address] 01-09-2023 00:19-0400 Mean blood pressure 76 mm[Hg] ARIANA YEBOAH MD [address] [place] [address] 01-09-2023 00:19-0400 Reason For Taking VItal Signs ARIANA YEBOAH MD [address] [place] [address] 01-08-2023 19:19-0400 Heart rate 93 /min ARIANA YEBOAH MD [address] [place] [address] 01-08-2023 18:40-0400 Blood Pressure Cuff Size ARIANA YEBOAH MD [address] [place] [address] 01-08-2023 18:40-0400 Blood Pressure Location ARIANA YEBOAH MD [address] [place] [address] 01-08-2023 18:40-0400 Blood Pressure Method ARIANA YEBOAH MD [address] [place] [address] 01-08-2023 14:33-0400 Blood Pressure Cuff Size ARIANA YEBOAH MD [facility] 01-08-2023 10:45-0400 Blood Pressure Cuff Size ARIANA YEBOAH MD [facility] 01-08-2023 05:02-0400 Mean blood pressure 85 mm[Hg] ARIANA YEBOAH MD [facility] 01-06-2023 06:00-0400 Body height 160 cm ARIANA YEBOAH MD [facility] 01-06-2023 06:00-0400 Body weight 98.7 kg ARIANA YEBOAH MD [facility] 01-06-2023 06:00-0400 Body weight 38.55 kg/m2 ARIANA YEBOAH MD [facility] Encounters Encounter Date Encounter Type Care Provider Facility Start: 01-06-2023 End: 01-09-2023 Evaluation and management of inpatient ARIANA YEBOAH MD Facility:A Start: 01-06-2023 End: 01-09-2023 Evaluation and management of inpatient ARIANA YEBOAH MD [facility] Procedures Date Procedure Procedure Detail Performing Clinician Appendicitis (disorder) MATT YEBOAH MD Cholecystectomy ARIANA YEBOAH MD Payers Date Payer Category Payer Private Health Insurance [id number] 1965 Unknown [id number] Social History Date Type Detail Facility Start: 01-06-2023 Tobacco smoking status Heavy t obacco smoker (finding) [facility] Sex Assigned At Female [facility] Functional Status Date Assessment Result Facility 01-09-2023 Functional Status Room check performed [facility] 01-09-2023 Functional Status [facility] 01-09-2023 Functional Status Assistive Device None A [facility] 01-08-2023 Functional Status [facility] 01-08-2023 Functional Status [facility] 01-08-2023 Functional Status Bed Bath Independent, S etup [facility] 01-06-2023 Functional Status [facility] 01-06-2023 Functional Status Skin moisturiz er, Shampoo cap, CHG bath [facility] Mental Status Date Assessment Result Facility 01-09-2023 Mental Status Orientation Oriented x [address] [facility] 01-09-2023 Mental Status [facility] 01-09-2023 Mental Status [facility] 01-08-2023 Mental Status Orientation Assessment Orie nted x 4 [facility] 01-08-2023 Mental Status [facility] 01-07-2023 Mental Status [facility] Clinical Notes 01-06-2023 to 01-11-2023 Note Date & Type Note Facility 01-11-2023 Note . MICRO - Microbiology PROCEDURE: Culture Body Fluid with Gram Stain [*1] SOURCE: Thoracentesis Fluid BODY SITE: COLLECTED DATE/TIME: 01/06/2023 09:28 EDT RECEIVED DATE/TIME: 01/06/2023 12:50 EDT START DATE/TIME: 01/06/2023 12:50 EDT FREE TEXT SOURCE: left FINAL REPORTS Final Report [] Verified Date/Time/Personnel: 01/11/2023 12:59 EDT Culture: No Growth at 5 days. PRELIMINARY REPORTS Preliminary Report [] Verified Date/Time/Personnel: 01/06/2023 13:59 EDT Culture has been received in lab and is no growth to date. Routine cultures are held for 5 days. STAINS GS [] Verified Date/Time/Personnel: 01/06/2023 14:40 EDT Sedimented 3+ Polymorphonuclear cells 2+ Mononuclear cells No organisms seen. Performing Locations *1: This test was performed at: [facility], [address] [place] [address], [id number] , [facility] ([place]) 01-09-2023 Hospital Discharge instructions Patient Education 01/09/2023 13:43:01 Shortness of Breath, Adult Shortness of Breath, Adult Shortness of breath is when a person has trouble breathing enough air or when a person feels like she or he is having trouble breathing in enough air. Shortness of breath could be a sign of a medical problem. Follow these instructions at home: Pay attention to any changes in your symptoms. Do not use any products that contain nicotine or tobacco, such as cigarettes, e-cigarettes, and chewing tobacco. Do not smoke. Smoking is a common cause of shortness of breath. If you need help quitting, ask your health care provider. Avoid things that can irritate your airways, such as: ?Mold. ?Dust. ?Air pollution. ?Chemical fumes. ?Things that can cause allergy symptoms (allergens), if you have allergies. Keep your living space clean and free of mold and dust. Rest as needed. Slowly return to your usual activities. Take gyyc-[id number] and prescription medicines only as told by your health care provider. This includes oxygen therapy and inhaled medicines. Keep all follow-up visits as told by your health care provider. This is important. Contact a health care provider if: Your condition does not improve as soon as expected. You have a hard time doing your normal activities, even after you rest. You have new symptoms. Get help right away if: Your shortness of breath gets worse. You have shortness of breath when you are resting. You feel light-headed or you faint. You have a cough that is not controlled with medicines. You cough up blood. You have pain with breathing. You have pain in your chest, arms, shoulders, or abdomen. You have a fever. You cannot walk up stairs or exercise the way that you normally do. These symptoms may represent a serious problem that is an emergency. Do not wait to see if the symptoms will go away. Get medical help right away. Call your local emergency services (911 in the [place] Do not drive yourself to the hospital. Summary Shortness of breath is when a person has trouble breathing enough air. It can be a sign of a medical problem. Avoid things that irritate your lungs, such as smoking, pollution, mold, and dust. Pay attention to changes in your symptoms and contact your health care provider if you have a hard time completing daily activities because of shortness of breath. This information is not intended to replace advice given to you by your health care provider. Make sure you discuss any questions you have with your health care provider. Document Released: 03/09/2002 Document Revised: 11/14/2018 Document Reviewed: 11/14/2018 [employer] Patient Education 2020 [employer]. Follow Up Care 01/06/2023 05:43:33 With:BECKY ENGLISH MD Address: [address] [place] [address] [address] [place] [address] [phone] When:1-2 days Comments:Call to make appointment [facility] 01-09-2023 Note Discharge Instructions Thank you for allowing [facility] to assist you with your healthcare needs. The following is important discharge information regarding your hospital visit. Your Care Team BECKY ENGLISH MD Your Diagnosis Diabetes mellitus type 2 Pleural effusion Pericardial effusion What to do next Instructions From Your Doctor Take tapering course of prednisone. Pleural effusion is likely secondary to your underlying rheumatoid arthritis. 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 No need for any further antibiotics Take Lasix as directed by cardiology Do lab work in the next 2 to 3 days to follow-up on your kidney function and electrolytes. Make appointment to follow-up with your primary care physician within the next 3 to 5 days If your condition should worsen return to hospital for medical attention Follow Up Appointments Follow Up with BECKY ENGLISH MD When Within 1-2 days Why: Call to make appointment Where: [address] [place] [address] [address] [place] [address] [phone] The Following Activity and Diet Have Been Ordered for You Discharge Activity - Ordered -- Activity As Tolerated, 01/09/23 12:55:00 EDT Discharge Diet - Ordered -- Type of Diet: Regular Diet, Diet Restrictions: Low sodium, Sodium limit: 2 gm, 01/07/23 7:10:00 EDT Discharge Diet - Ordered -- 01/09/23 12:55:00 EDT The Following Equipment Has Been Ordered for You No qualifying data available. The Following Treatments Have Been Ordered for You Discharge Labs Discharge Outpatient Labwork - Ordered -- BMP, Follow-up, Draw 3 days after discharge, 01/07/23 7:10:00 EDT Discharge Outpatient Labwork - Ordered -- PT/INR, If on Warfarin, 3 days after discharge, 01/07/23 7:10:00 EDT Discharge Outpatient Labwork - Ordered -- Digoxin level, Follow-up, 01/07/23 7:10:00 EDT Discharge Outpatient Labwork - Ordered -- bmp, Recently started on Lasix, follow-up within: 2-4 days, Results Notify to: BECKY ENGLISH MD, 01/09/23 12:55:00 EDT Discharge Radiology No qualifying data available. Other Therapies No qualifying data available. Post Acute Orders No qualifying data available. Someone Will Contact You Regarding These Home Health Referrals No home referrals have been ordered for you. No one will call you. Allergies Bactrim sulfa drug Medications Please ask your primary doctor or pharmacist before taking any other medication not listed, including over the counter drugs, herbal medications, vitamins and or supplements as they may interact with your home medications. What How Much When Instructions Last Dose New furosemide (furosemide 20 mg oral tablet) 1 tab(s) by mouth Once a day Pickup at [facility]/pharmacy #[id number] Changed predniSONE (prednisone 10mg tab (TAPER)) Taper 40-30-20-10 x 3 days each dose by mouth Once a day Duration: 12 Days Take with food/ meal Pickup at [facility]/pharmacy #[id number] Unchanged albuterol (albuterol MDI (90 mcg/ inh) CFC free inhalation aerosol) 1 puff(s) by inhalation Every 2 hours as needed for as needed for wheezing Unchanged amLODIPine 10 Milligram by mouth Once a day Unchanged atorvastatin (atorvastatin 20 mg oral tablet) 1 tab(s) by mouth Daily at bedtime Unchanged DULoxetine (DULoxetine 30 mg oral delayed release capsule) 2 cap by mouth Daily at bedtime Unchanged famotidine (famotidine 20 mg oral tablet) 1 tab(s) by mouth Once a day Unchanged hydroxychloroquine (hydroxychloroquine 200 mg oral tablet) 1 tab(s) by mouth Two (2) times a day Unchanged ibuprofen 200 Milligram by mouth Every 6 hours as needed for as needed for pain Unchanged leflunomide (leflunomide 20 mg oral tablet) 1 tab(s) by mouth Once a day Unchanged levothyroxine 150 Microgram by mouth Once a day Unchanged losartan (losartan 100 mg oral tablet) 1 tab(s) by mouth Once a day Unchanged meclizine (meclizine 25 mg oral tablet) 1 tab(s) by mouth Three (3) times a day as needed for as needed for dizziness Unchanged metFORMIN (MetFORMIN (Eqv-Fortamet)) 1,000 Milligram by mouth Two (2) times a day Unchanged ubiquinone (Coenzyme Q10) 100 Milligram by mouth Once a day Pharmacy Information [facility]/pharmacy #[id number]: [address], [place] [id number] [phone] What How Much When Comments Stop Taking doxycycline 100 Milligram by mouth Two (2) times a day Duration: 7 Days Please take this list to your next doctor s visit. Bring all medications you take, including over the counter medications, herbals and other supplements with you to your doctor s visit. Patients and families are reminded to discard old lists and to update any records with all medication providers or retail pharmacies. Medication Leaflets furosemide (oral/injection) (fur [place] se mide) Furoscix, Lasix What is the most important information I should know about furosemide? You should not use this medicine if you are unable to urinate. Using more than your recommended dose will not make this medicine more effective. High doses of furosemide may cause irreversible hearing loss. Tell your doctor about all your other medicines. Some drugs should not be used with furosemide. What is furosemide? Furosemide is used to treat fluid retention (edema) in people with congestive heart failure, liver disease, or a kidney disorder such as nephrotic syndrome. Furosemide is also used to treat high blood pressure (hypertension). The Furiosi brand of furosemide is only used in adults. Furosemide may also be used for purposes not listed in this medication guide. What should I discuss with my healthcare provider before using furosemide? You should not use furosemide if you are allergic to it, if you are unable to urinate or have hepatic cirrhosis. You should not use Furiosi if you have ascites or have allergies to medical adhesives. Tell your doctor if you have ever had: an electrolyte imbalance (such as low levels of potassium or magnesium in your blood); enlarged prostate, bladder obstruction, or other urination problems; gout; lupus; diabetes; an allergy to sulfa drugs; kidney disease; or cirrhosis or other liver disease. Tell your doctor if you have an MRI (magnetic resonance imaging) or any type of scan using a radioactive dye that is injected into a vein. Contrast dyes and furosemide can harm your kidneys. It is not known if furosemide will harm an unborn baby. Tell your doctor if you are or plan to become . It may not be safe to breastfeed while using this medicine. Ask your doctor about any risk. Furosemide may slow breast milk production. How should I use furosemide? Follow all directions on your prescription label and read all medication guides or instruction sheets. Use the medicine exactly as directed. Furosemide oral is taken by mouth. Furosemide injection is given in a muscle, under the skin, or in a vein. A healthcare provider will give you this injection if you are unable to take the medicine by mouth. Furiosi infusion lasts about 5 hours. Furiosi should not get wet. Do not bathe, shower, swim or exercise while wearing the infusor. Also do not apply any products such as lotions or creams in the area where the infusor is placed. It is not recommended to travel by car or airplane while using Furiosi. Also do not use the infusor within 12 inches of mobile phones, tablets, computers, or wireless accessories such as remote control, or [employer] devices. Do not reuse a needle, syringe or cartridge. Place them in a puncture-proof 'sharps' container and dispose of it following state or local laws. Keep out of the reach of children and pets. You may receive your first dose in a hospital or clinic setting if you have severe liver disease. Do not use more than your recommended dose. High doses of furosemide may cause irreversible hearing loss. Measure liquid medicine with the supplied measuring device (not a kitchen spoon). Doses are based on weight in children and teenagers. Your child's dose may change if the child gains or loses weight. Furosemide will make you urinate more often and you may get dehydrated easily. Follow your doctor's instructions about using potassium supplements or getting enough salt and potassium in your diet. Your blood pressure will need to be checked often and you may need other medical tests. If you have high blood pressure, keep using this medicine even if you feel well. High blood pressure often has no symptoms. If you need surgery, tell the surgeon ahead of time that you are using furosemide. Store at room temperature away from moisture, heat, and light. Throw away any unused oral liquid after 90 days. What happens if I miss a dose? Furosemide is sometimes used only once, so you may not be on a dosing schedule. If you are using the medication regularly, use the medicine as soon as you can, but skip the missed dose if it is almost time for your next dose. Do not use two doses at one time. What happens if I overdose? Seek emergency medical attention or call the Poison Help line at . Overdose symptoms may include feeling very thirsty or hot, heavy sweating, hot and dry skin, extreme weakness, or fainting. What should I avoid while using furosemide? Avoid getting up too fast from a sitting or lying position, or you may feel dizzy. Avoid becoming dehydrated. Follow your doctor's instructions about the type and amount of liquids you should drink while you are using furosemide. Drinking alcohol with this medicine can cause side effects. Furosemide could make you sunburn more easily. Avoid sunlight or tanning beds. Wear protective clothing and use sunscreen (SPF 30 or higher) when you are outdoors. If you have high blood pressure, ask a doctor or pharmacist before taking any medicines that can raise your blood pressure, such as diet pills or sgezv-myt-louz medicine. What are the possible side effects of furosemide? Get emergency medical help if you have signs of an allergic reaction (hives, difficult breathing, swelling in your face or throat) or a severe skin reaction (fever, sore throat, burning eyes, skin pain, red or purple skin rash with blistering and peeling). Call your doctor at once if you have: a light-headed feeling, like you might pass out; ringing in your ears, hearing loss; muscle spasms or contractions; pale skin, easy bruising, unusual bleeding; high blood sugar--increased thirst, increased urination, dry mouth, fruity breath odor; kidney problems--swelling, urinating less, feeling tired or short of breath signs of liver or pancreas problems--loss of appetite, upper stomach pain (that may spread to your back), nausea or vomiting, dark urine, jaundice (yellowing of the skin or eyes); or signs of an electrolyte imbalance--increased thirst or urination, constipation, muscle weakness, leg cramps, numbness or tingling, feeling jittery, fluttering in your chest. Common side effects may include: diarrhea, constipation, loss of appetite; numbness or tingling; headache, dizziness; or blurred vision. This is not a complete list of side effects and others may occur. Call your doctor for medical advice about side effects. You may report side effects to FDA at 7-066-PSV-2682. What other drugs will affect furosemide? Sometimes it is not safe to use certain medicines at the same time. Some drugs can affect your blood levels of other drugs you use, which may increase side effects or make the medicines less effective If you also take sucralfate, take your furosemide dose 2 hours before or 2 hours after you take sucralfate. Tell your doctor about all your other medicines, especially: another diuretic, especially ethacrynic acid; methotrexate; chloral hydrate; lithium; phenytoin; an antibiotic; cancer medicine, such as cisplatin; heart or blood pressure medicine; or NSAIDs (nonsteroidal anti-inflammatory drugs)--aspirin, ibuprofen (Advil, Motrin), naproxen (Aleve), celecoxib, diclofenac, indomethacin, meloxicam, and others. This list is not complete. Other drugs may affect furosemide, including prescription and yubs-kti-wyumcep medicines, vitamins, and herbal products. Not all possible drug interactions are listed here. Where can I get more information? Your doctor or pharmacist can provide more information about furosemide. Remember, keep this and all other medicines out of the reach of children, never share your medicines with others, and use this medication only for the indication prescribed. Every effort has been made to ensure that the information provided by [employer]. ('[employer]') is accurate, up-to-date, and complete, but no guarantee is made to that effect. Drug information contained herein may be time sensitive. [employer] information has been compiled for use by healthcare practitioners and consumers in the [place] and therefore [employer] does not warrant that uses outside of the [place] are appropriate, unless specifically indicated otherwise. [employer] drug information does not endorse drugs, diagnose patients or recommend therapy. [employer] drug information is an informational resource designed to assist licensed healthcare practitioners in caring for their patients and/or to serve consumers viewing this service as a supplement to, and not a substitute for, the expertise, skill, knowledge and judgment of healthcare practitioners. The absence of a warning for a given drug or drug combination in no way should be construed to indicate that the drug or drug combination is safe, effective or appropriate for any given patient. [employer] does not assume any responsibility for any aspect of healthcare administered with the aid of information [email or web address] provides. The information contained herein is not intended to cover all possible uses, directions, precautions, warnings, drug interactions, allergic reactions, or adverse effects. If you have questions about the drugs you are taking, check with your doctor, nurse or pharmacist. Copyright 1723-7852 [employer]. Version: 18.01. Revision Date: 09/04/2022. prednisone (PRED antonio elvis Lewisos What is the most important information I should know about prednisone? You should not use prednisone if you have a fungal infection anywhere in your body. You should not stop using prednisone suddenly. Follow your doctor's instructions about tapering your dose. What is prednisone? Prednisone is a steroid that reduces inflammation in the body, and also suppresses your immune system. Prednisone is used to treat many different conditions such as hormonal disorders, skin diseases, arthritis, lupus, psoriasis, allergic conditions, ulcerative colitis, Crohn's disease, eye diseases, lung diseases, asthma, tuberculosis, blood cell disorders, kidney disorders, leukemia, lymphoma, multiple sclerosis, organ transplant rejection, swelling from a brain tumor or injury. Prednisone may also be used for purposes not listed in this medication guide. What should I discuss with my healthcare provider before taking prednisone? You should not use prednisone if you are allergic to it, or if you have a fungal infection anywhere in your body. Steroid medication can weaken your immune system, making it easier for you to get an infection or worsening an infection you already have. Tell your doctor about any illness or infection you've had within the past several weeks. Tell your doctor if you have ever had: heart problems, high blood pressure, or a heart attack; glaucoma or cataracts; herpes infection of the eyes; past or present tuberculosis; a parasite infection that causes diarrhea (such as threadworms); any illness that causes diarrhea; underactive thyroid; diabetes; a stomach ulcer, diverticulitis; a colostomy or ileostomy; osteoporosis or low bone mineral density (steroid medication can increase your risk of bone loss); low levels of calcium or potassium in your blood; cirrhosis or other liver disease; mental illness or psychosis; or a muscle disorder such as myasthenia gravis. Long-term use of steroids may lead to bone loss (osteoporosis), especially if you smoke or drink alcohol, if you do not exercise, or if you do not get enough vitamin D or calcium in your diet. It is not known whether this medicine will harm an unborn baby. Tell your doctor if you are or plan to become . You should not breastfeed while using prednisone. How should I take prednisone? Follow all directions on your prescription label and read all medication guides or instruction sheets. Your doctor may occasionally change your dose. Use the medicine exactly as directed. Prednisone is taken daily or every other day, depending on the condition being treated. You may need to take the medicine at a certain time of day. Follow your doctor's instructions about when and how often to take this medicine. Take with food if prednisone upsets your stomach. Measure liquid medicine carefully. Use the dosing syringe provided, or use a medicine dose-measuring device (not a kitchen spoon). Swallow the delayed-release tablet whole and do not crush, chew, or break it. Prednisone can weaken (suppress) your immune system, and you may get an infection more easily. Call your doctor if you have signs of infection (fever, weakness, cold or flu symptoms, skin sores, diarrhea, frequent or recurring illness). If you have major surgery or a severe injury or infection, your prednisone dose needs may change. Make sure any doctor caring for you knows you are using this medicine. If you use this medicine long-term, you may need medical tests and vision exams. In case of emergency, wear or carry medical identification to let others know you use a steroid. You should not stop using prednisone suddenly. Follow your doctor's instructions about tapering your dose. Store at room temperature away from moisture, heat, and light. What happens if I miss a dose? Take the medicine as soon as you can, but skip the missed dose if it is almost time for your next dose. Do not take two doses at one time. What happens if I overdose? Seek emergency medical attention or call the Poison Help line at . High doses or long-term use of prednisone can lead to thinning skin, easy bruising, changes in body fat (especially in your face, neck, back, and waist), increased acne or facial hair, menstrual problems, impotence, or loss of interest in sex. What should I avoid while taking prednisone? Do not receive a 'live' vaccine while using prednisone. The vaccine may not work as well and may not fully protect you from disease. Live vaccines include measles, mumps, rubella (MMR), polio, rotavirus, typhoid, yellow fever, varicella (chickenpox), zoster (shingles), and nasal flu (influenza) vaccine. Avoid being near people who are sick or have infections. Call your doctor for preventive treatment if you are exposed to chickenpox or measles. These conditions can be serious or even fatal in people who are using steroid medicine. Avoid drinking alcohol. What are the possible side effects of prednisone? Get emergency medical help if you have signs of an allergic reaction: hives; difficult breathing; swelling of your face, lips, tongue, or throat. Call your doctor at once if you have: muscle pain or weakness; blurred vision, tunnel vision, eye pain, or seeing halos around lights; severe depression, changes in personality, unusual thoughts or behavior; bloody or tarry stools, coughing up blood or vomit that looks like coffee grounds; swelling, rapid weight gain, feeling short of breath; irregular heartbeats; severe headache, pounding in your neck or ears; decreased adrenal gland hormones--muscle weakness, tiredness, diarrhea, nausea, menstrual changes, skin discoloration, craving salty foods, and feeling light-headed; or low potassium level--leg cramps, constipation, irregular heartbeats, fluttering in your chest, increased thirst or urination, numbness or tingling, muscle weakness or limp feeling. Prednisone can affect growth in children. Tell your doctor if your child is not growing at a normal rate while using this medicine. Common side effects may include: weight gain (especially in your face or your upper back and torso); increased appetite; mood changes, trouble sleeping; changes in your menstrual periods; problems with memory or thought; muscle or joint pain; weakness; headache, dizziness, spinning sensation; nausea, bloating, loss of appetite; slow wound healing; or acne, increased sweating, thinning skin, bruising, pinpoint spots under your skin. This is not a complete list of side effects and others may occur. Call your doctor for medical advice about side effects. You may report side effects to FDA at 3-909-VXD-5564. What other drugs will affect prednisone? Sometimes it is not safe to use certain medications at the same time. Some drugs can affect your blood levels of other drugs you take, which may increase side effects or make the medications less effective. Tell your doctor about all your current medicines. Many drugs can affect prednisone, especially: bupropion; cyclosporine; digoxin; ketoconazole; an antibiotic; control pills or hormone replacement therapy; a diuretic or 'water pill'; insulin or oral diabetes medicine; a blood thinner--warfarin, Coumadin, Jantoven; or NSAIDs (nonsteroidal anti-inflammatory drugs)--aspirin, ibuprofen (Advil, Motrin), naproxen (Aleve), celecoxib, diclofenac, indomethacin, meloxicam, and others. This list is not complete and many other drugs may affect prednisone. This includes prescription and cwgf-bbk-voafidh medicines, vitamins, and herbal products. Not all possible drug interactions are listed here. Where can I get more information? Your pharmacist can provide more information about prednisone. Remember, keep this and all other medicines out of the reach of children, never share your medicines with others, and use this medication only for the indication prescribed. Every effort has been made to ensure that the information provided by [employer]cloud. ('[employer]') is accurate, up-to-date, and complete, but no guarantee is made to that effect. Drug information contained herein may be time sensitive. [employer] information has been compiled for use by healthcare practitioners and consumers in the [place] and therefore [employer] does not warrant that uses outside of the [place] are appropriate, unless specifically indicated otherwise. [employer]'s drug information does not endorse drugs, diagnose patients or recommend therapy. [employer] drug information is an informational resource designed to assist licensed healthcare practitioners in caring for their patients and/or to serve consumers viewing this service as a supplement to, and not a substitute for, the expertise, skill, knowledge and judgment of healthcare practitioners. The absence of a warning for a given drug or drug combination in no way should be construed to indicate that the drug or drug combination is safe, effective or appropriate for any given patient. [employer] does not assume any responsibility for any aspect of healthcare administered with the aid of information [employer] provides. The information contained herein is not intended to cover all possible uses, directions, precautions, warnings, drug interactions, allergic reactions, or adverse effects. If you have questions about the drugs you are taking, check with your doctor, nurse or pharmacist. Copyright 5693-3258 [employer] Version: 10. Revision Date: 09/22/2018. Education Materials Shortness of Breath, Adult Shortness of breath is when a person has trouble breathing enough air or when a person feels like she or he is having trouble breathing in enough air. Shortness of breath could be a sign of a medical problem. Follow these instructions at home: Pay attention to any changes in your symptoms. Do not use any products that contain nicotine or tobacco, such as cigarettes, e-cigarettes, and chewing tobacco. Do not smoke. Smoking is a common cause of shortness of breath. If you need help quitting, ask your health care provider. Avoid things that can irritate your airways, such as: ? Mold. ? Dust. ? Air pollution. ? Chemical fumes. ? Things that can cause allergy symptoms (allergens), if you have allergies. Keep your living space clean and free of mold and dust. Rest as needed. Slowly return to your usual activities. Take mzjo-qxx-mdltlte and prescription medicines only as told by your health care provider. This includes oxygen therapy and inhaled medicines. Keep all follow-up visits as told by your health care provider. This is important. Contact a health care provider if: Your condition does not improve as soon as expected. You have a hard time doing your normal activities, even after you rest. You have new symptoms. Get help right away if: Your shortness of breath gets worse. You have shortness of breath when you are resting. You feel light-headed or you faint. You have a cough that is not controlled with medicines. You cough up blood. You have pain with breathing. You have pain in your chest, arms, shoulders, or abdomen. You have a fever. You cannot walk up stairs or exercise the way that you normally do. These symptoms may represent a serious problem that is an emergency. Do not wait to see if the symptoms will go away. Get medical help right away. Call your local emergency services (911 in the [place] Do not drive yourself to the hospital. Summary Shortness of breath is when a person has trouble breathing enough air. It can be a sign of a medical problem. Avoid things that irritate your lungs, such as smoking, pollution, mold, and dust. Pay attention to changes in your symptoms and contact your health care provider if you have a hard time completing daily activities because of shortness of breath. This information is not intended to replace advice given to you by your health care provider. Make sure you discuss any questions you have with your health care provider. Document Released: 03/09/2002 Document Revised: 11/14/2018 Document Reviewed: 11/14/2018 Elsevier Patient Education 2020 [employer] Additional Information VACCINATE! IT SAVES LIVES! Members of the community who have not yet received the COVID-19 vaccine and would like to receive it can visit one of [facility] vaccine clinics. There are many vaccine clinic locations within the [facility]. For locations and available times, please visit https://[email or web address].[place].gov/. It is important to note that some COVID mobile vaccine clinics are held outdoors and may be canceled in rainy or stormy conditions. To learn more about pediatric vaccinations (ages 5-11), we invite you to visit the [employer] webpage. [email or web address] [email or web address] [email or web address] To learn more about the COVID-19 vaccine, we invite you to visit the CDC website for a list of frequently asked questions.https://www.cdc.gov/cor onavirus/2019-ncov/vaccines/faq.h tml [facility] Patient Portal Access Instructions: Stay connected with your healthcare team and access your personal medical information anytime with the [facility] Patient Portal. Please follow the directions below to create your [facility] account: 1.Access the email account you provided upon registration to the hospital/physician office.2.Look for an invitation email from [facility].3.Open the email and access the invitation link: Accept Invitation to [employer].4.Fill in the required otto to create your account. To access your account, visit [employer]. Click the blue button labeled Access Patient Portal and then log in with the username and password that you created in the steps above. You will be able to view your test results, lab results, a summary of your visits, upcoming appointments and more. There is also a convenient messaging option where you can send secure messages to your provider. In addition, you will have the ability to download any documents or summaries to your computer and/or send the information securely to a physician. Remember that your healthcare information is confidential, so carefully consider who you will allow to register on the [facility] for access to your information. You can also access the [facility] Patient Portal on the [facility] nichole. Simply click on Patient Portal and then log into your account. If you would like to receive a full copy of your medical records, please contact the [facility] Medical Records Department by calling [phone], Wednesday through Wednesday between 8 a.m. and 4:30 p.m. HOW TO SAFELY DISPOSE OF PRESCRIPTION MEDICATIONS Please use one of the following methods to safely dispose of your unused medications. 1.Use a drug disposal kit: the drug disposal pouch allows you to safely discard your old and unused drugs. Ask your nurse to give you one when you are discharged.2.Visit a local take-back location: Many local pharmacies and police departments have programs that collect old and unwanted prescription drugs. Call your local pharmacy or go to http://ClearSaleing.ClaimSync/4T6Nl5w to find one close to you.3.Make use of household items: Use cat litter or old coffee grounds to dispose medications if other options are not available. Mix your drugs with these household products, seal them in an airtight container and throw it into the garbage. Call [facility]: [phone] to be sure your drugs can be disposed of in this way. Some medicines may require a different approach.4.Never flush your medications down the toilet. IF YOU HAVE BEEN PRESCRIBED AN OPIOID FOR PAIN If you have been prescribed an opioid (such as hydrocodone, oxycodone or morphine), it is critical to understand the possible side effects and risks of opioid pain medications. Even when taken as directed, opioids can have several side effects including: Tolerance, meaning you might need to take more of a medication for the same pain relief. Nausea, vomiting and/or constipation. Sleepiness, dizziness, dry mouth, confusion, depression or itching. Physical dependence, meaning you have withdrawal symptoms when a medication is stopped, can develop within a few days. KNOW YOUR RESPONSIBILITIES It is important to know exactly how much and how often to take the opioid pain medications you are prescribed. Never take opioids in higher amounts or more often than prescribed. Do not combine opioids with alcohol or other drugs that cause drowsiness, such as benzodiazepines, also known as benzos, including diazepam and alprazolam, muscle relaxants or sleep aids. Never sell or share prescription opioids. This is illegal. Store opioids in a secure place and out of reach of others (including children, family, friends and visitors). The last page of this document has been signed and retained as a CHART COPY. Signatures Patient Education Materials Shortness of Breath, Adult Medication Leaflets furosemide (oral/injection), prednisone My discharge plan and instructions have been reviewed and explained to me and I,CAITLIN OSBORNE understand my current condition and have read and understand these discharge instructions. I have received a written copy of the plan/instructions. If I have questions, I am aware that I should contact my doctor. Patient/Chemist Instrumentation Signature: Date/Time: Relationship to Patient: ____ Witness Name/Signature: Date/Time: [facility] 01-09-2023 Discharge summary Date of Service 01/09/2023 Discharge Diagnosis 1. Acute hypoxic respiratory failure 2. Transudative pleural effusion 3. Pericardial effusion 4. Pleuritic chest pain 5. History of diabetes mellitus 6. History of rheumatoid arthritis. Hospital Course 57-year-old female admitted to Cardiology service on January 06 from [facility] with chief complaint of shortness of breath found to have a pericardial effusion. Past medical history of hypertension, hyperlipidemia, mild nonobstructive CAD, diabetes mellitus type 2, tobacco abuse, RA, pancreatitis. She had been seen at [facility] about 2 days prior to coming back in at that time she was diagnosed with a pneumonia and sent home on antibiotics. She continued to have what seems to be pleuritic chest pain and shortness of breath and for that reason went back and was transferred to [facility] for cardiology evaluation. Her imaging showed pericardial effusion along with bilateral pleural effusion. She also had dilated IVC filter on echocardiogram. Patient underwent left-sided thoracentesis on January 06 for 600 cc of yellow serous fluid. Fluid analysis was exudative in nature. Her pleural effusion is likely secondary to her rheumatological disorder, started on IV steroids and transition to oral steroids on the day of discharge from hospital. Blood sugars were elevated in hospital, secondary to her receiving hyposensitive steroids. She received insulin in hospital but was not discharged on insulin, she was discharged on tapering dose of steroids so I expect her blood sugars to be better controlled. She will need to follow-up close with her primary care physician. Cardiology did IV diuresis, her symptoms improved and her oxygen requirement decreased. At discharge from hospital she was weaned to room air. Allergies Bactrim sulfa drug Procedures Thoracocentesis Consults Consult to Physician - Ordered -- 01/06/23 9:27:00 EDT, LIAM CLARK MD, Routine, Bilateral pleural effusions, tobacco abuse, and shortness of breath eval Imaging Results and Diagnostics XR Chest 2 Views Result Date: January 08, 2023 Verified By: BHARATHI KAY DO CLINICAL STATEMENT: IMPRESSION: No significant interval change. US Chest Result Date: January 07, 2023 Verified By: BLANCA GUTIÉRREZ MD CLINICAL STATEMENT: IMPRESSION: CT Thorax w/o Contrast Result Date: January 06, 2023 Verified By: REED CALDERA DO CLINICAL STATEMENT: IMPRESSION: Moderate pericardial effusion, measuring 1.2 cm to maximum 1.9 cm. Small bilateral pleural effusions. Left lower lobe reticular andground-glass infiltrates, likely an infectious/inflammatory process. Benign bilateral adrenal adenomas. CCU nurse Sharmila was directly informed of the pericardial effusion, pleuraleffusions, left lower lobe pneumonia at the time of the dictation. IMPORTANT PHYSICIAN INPUT NECESSARY, DO NOT FILE! XR Chest 1 View Result Date: January 06, 2023 Verified By: MELVIN MORENO DO CLINICAL STATEMENT: IMPRESSION: No visible pneumothorax post left thoracentesis. New right lower lobeatelectasis may be secondary to mucoid impaction. US Thoracentesis Left Result Date: January 06, 2023 Verified By: TAYLOR MUIR MD CLINICAL STATEMENT: IMPRESSION: Successful ultrasound guided thoracentesis This procedure was performed by Duy Liz PA-C under the directsupervision of Morgan Garland PA-C. XR Chest 1 View Result Date: January 06, 2023 Verified By: BHARATHI LEIVA MD CLINICAL STATEMENT: IMPRESSION: Small to moderate bilateral pleural effusions with adjacent airspace disease,greater on the left. Physical Exam Vitals and Measurements T: 36.8 C (Oral) TMIN: 36.6 C (Oral) TMAX: 36.8 C (Oral) HR: 89(Monitored) RR: 18 BP: 118/86 SpO2: 94% WT: 94.4 kg Weight Current Weight Dosing Weight: 98.7 kg (01/06/23) Current Weight: 94.4 kg (01/09/23) GENERAL: Pt is comfortable in bed. Appears in no acute distress. HEENT: Mucous membranes pink and moist NEURO: Alert and oriented X 3 Respiratory system: Equal depression, no use of accessory respiratory muscles. No adventitious breath sounds. Code Status Code Status - Ordered -- 01/06/23 6:37:00 EDT, Full Code, Constant Order Admission Date 01/06/2023 Discharge Date 01/09/2023 Patient Instructions Take tapering course of prednisone. Pleural effusion is likely secondary to your underlying rheumatoid arthritis. 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 No need for any further antibiotics Continue taking your usual diabetic medications Monitor your blood sugars at home, your blood sugars were elevated in the hospital likely due to the fact that you are receiving high-dose steroids. Continue taking metformin, I expect your blood sugars still gradually improve with tapering dose of steroids. Take Lasix as directed by cardiology Do lab work in the next 2 to 3 days to follow-up on your kidney function and electrolytes. Make appointment to follow-up with your primary care physician within the next 3 to 5 days If your condition should worsen return to hospital for medical attention Medications New Prescription furosemide (furosemide 20 mg oral tablet)1 tab(s) by mouth once a day. Refills: 0. Changed predniSONE (prednisone 10mg tab (TAPER))Taper 40-30-20-10 x 3 days each dose by mouth once a day for 12 Days. Take with food/meal. Refills: 0. Unchanged albuterol (albuterol MDI (90 mcg/inh) CFC free inhalation aerosol)1 puff(s) by inhalation every 2 hours as needed as needed for wheezing. [id number] Milligram by mouth once a day. atorvastatin (atorvastatin 20 mg oral tablet)1 tab(s) by mouth daily at bedtime. DULoxetine (DULoxetine 30 mg oral delayed release capsule)2 cap by mouth daily at bedtime. famotidine (famotidine 20 mg oral tablet)1 tab(s) by mouth once a day. hydroxychloroquine (hydroxychloroquine 200 mg oral tablet)1 tab(s) by mouth two (2) times a day. [id number] Milligram by mouth every 6 hours as needed as needed for pain. leflunomide (leflunomide 20 mg oral tablet)1 tab(s) by mouth once a day. [id number] Microgram by mouth once a day. losartan (losartan 100 mg oral tablet)1 tab(s) by mouth once a day. meclizine (meclizine 25 mg oral tablet)1 tab(s) by mouth three (3) times a day as needed as needed for dizziness. metFORMIN (MetFORMIN (Eqv-Fortamet))1,000 Milligram by mouth two (2) times a day. ubiquinone (Coenzyme Q10)100 Milligram by mouth once a day. Discontinued Milligram by mouth two (2) times a day for 7 Days. Follow Up Follow Up with BECKY ENGLISH MD When Within 1-2 days Why: Call to make appointment Where: [address] [place] [phone] Follow Up Appointments No qualifying data available. Follow Up Labs/Studies Discharge Labs Discharge Outpatient Labwork - Ordered -- BMP, Follow-up, Draw 3 days after discharge, 01/07/23 7:10:00 EDT Discharge Outpatient Labwork - Ordered -- PT/INR, If on Warfarin, 3 days after discharge, 01/07/23 7:10:00 EDT Discharge Outpatient Labwork - Ordered -- Digoxin level, Follow-up, 01/07/23 7:10:00 EDT Discharge Outpatient Labwork - Ordered -- bmp, Recently started on Lasix, follow-up within: 2-4 days, Results Notify to: BECKY ENGLISH MD, 01/09/23 12:55:00 EDT Discharge Studies No Follow-up Studies Discharge Diet Discharge Diet - Ordered -- 01/09/23 12:55:00 EDT Discharge Activity Discharge Activity - Ordered -- Activity As Tolerated, 01/09/23 12:55:00 EDT Condition on Discharge improved Discharge Disposition home Information Provided To The patient Time Spent Greater than 40 minutes was spent in discharge planning. More than 50% of the time was spent in direct patient care which included time spent speaking with the patient and her family members about her medical condition and treatment plan. Digitally Signed by JONATHAN POSEY MD on 01/09/2023 03:13 PM Digitally Signed by JONATHAN POSEY MD on 01/09/2023 03:15 PM [facility] 01-09-2023 Pulmonary Progress note Date of Service 01/09/2023 Subjective No significant change compared to yesterday. Chest x-ray reviewed shows bilateral pleural effusions. Objective Vitals and Measurements T: 36.6 C (Oral) TMIN: 36.4 C (Oral) TMAX: 36.7 C (Oral) HR: 86(Monitored) RR: 20 BP: 115/62 SpO2: 95% WT: 94.4 kg Physical Exam Constitutional: Patient is alert and oriented x3. In no acute distress. Lungs decreased air entry bilaterally. Heart: Regular rate and rhythm. S1 S2 heard. GI: Bowel sounds x4 quadrants. No rebound tenderness or guarding. Neuro: speech clear. ALMONTE equally. memory intact Skin: no rashes or lesions noted. skin warm, dry and intact. Weight Current Weight Dosing Weight: 98.7 kg (01/06/23) Current Weight: 94.4 kg (01/09/23) Medications Medications (28) Active Scheduled: (17) albuterol - ipratropium 2.5 mg-0.5 mg/3 mL Inhal Jennifer UD 3 mL, Inhalation, TIDRT atorvastatin 20 mg tablet 20 mg 1 tab(s), Oral, qHS budesonide 0.5 mg/2 mL Susp UD 0.5 mg 2 mL, Inhalation, BIDRT doxycycline hyclate 100 mg Capsule 100 mg 1 cap(s), Oral, BID duloxetine [address] capsule 60 mg 1 cap(s), Oral, qHS famotidine 20 mg tablet 20 mg 1 tab(s), Oral, qDay furosemide 20 mg tablet 20 mg 1 tab(s), Oral, qDay heparin 5,000 units/mL (1 mL) vial 5,000 unit(s) 1 mL, Subcutaneous, q8h hydroxychloroquine 200 mg tablet 200 mg 1 tab(s), Oral, BID insulin glargine 10 unit(s) 0.1 mL, Subcutaneous (INT), qHS insulin lispro 100 units/mL Soln (3 mL) Give 0-15 units/dose, Subcutaneous, TIDAC leflunomide 20 mg Tablet 20 mg 1 tab(s), Oral, qDay levothyroxine 150 mcg tablet 150 mcg 1 tab(s), Oral, qDay metformin 500 mg Tablet 1,000 mg 2 tab(s), Oral, BIDM methylPREDNISolone succ 40mg (40 mg/1mL) after dilution 30 mg 0.75 mL, IV Push, q8h sterile water - Solution 10 mL 1 mL, Miscellaneous, q8h ubiquinone 100 mg capsule 100 mg 1 cap(s), Oral, qDay Continuous: (0) PRN: (11) albuterol 0.083% Soln UD (2.5mg/3 mL) 2.5 mg 3 mL, Inhalation, q2h ibuprofen 200 mg Tablet 200 mg 1 tab(s), Oral, q6hr magnesium sulfate 4 gram(s)/100mL PMX 4 g 100 mL, IV Piggyback, AsDirected magnesium sulfate 50% (500mg/mL) 6 g 12 mL, IV Piggyback, AsDirected magnesium sulfate PMX 2 g 50 mL, IV Piggyback, AsDirected meclizine 25 mg Tablet 25 mg 1 tab(s), Oral, TID potassium chloride (PMX) 20 mEq/100 mL 20 mEq 100 mL, IV Piggyback, AsDirected potassium chloride 20 mEq ER tablet 20 mEq 1 tab(s), Oral, AsDirected potassium chloride 20 mEq ER tablet 40 mEq 2 tab(s), Oral, AsDirected potassium chloride 20 mEq ER tablet 40 mEq 2 tab(s), Oral, AsDirected predniSONE 10 mg tablet 10 mg 1 tab(s), Oral, qDay Lab Results 01/09 04:56 WBC: 8.7 Hgb: 11.4 L Hct: 34.4 Platelet: 307 Neutrophil %: 89.1 H Glucose Level: 226 H Sodium Level: 142 Potassium Level: 4.5 BUN: 22.0 Creatinine Lvl (s): 0.41 L 01/08 05:21 WBC: 11.7 H Hgb: 10.6 L Hct: 32.1 L Platelet: 279 Neutrophil %: 88.6 H Glucose Level: 188 H Sodium Level: 141 Potassium Level: 4.2 BUN: 20.0 Creatinine Lvl (s): 0.39 L Imaging Results and Diagnostics XR Chest 2 Views Result Date: January 08, 2023 Verified By: BHARATHI KAY DO CLINICAL STATEMENT: IMPRESSION: No significant interval change. US Chest Result Date: January 07, 2023 Verified By: BLANCA GUTIÉRREZ MD CLINICAL STATEMENT: IMPRESSION: CT Thorax w/o Contrast Result Date: January 06, 2023 Verified By: REED CALDERA DO CLINICAL STATEMENT: IMPRESSION: Moderate pericardial effusion, measuring 1.2 cm to maximum 1.9 cm. Small bilateral pleural effusions. Left lower lobe reticular andground-glass infiltrates, likely an infectious/inflammatory process. Benign bilateral adrenal adenomas. CCU nurse Sharmila was directly informed of the pericardial effusion, pleuraleffusions, left lower lobe pneumonia at the time of the dictation. IMPORTANT PHYSICIAN INPUT NECESSARY, DO NOT FILE! XR Chest 1 View Result Date: January 06, 2023 Verified By: MELVIN MORENO DO CLINICAL STATEMENT: IMPRESSION: No visible pneumothorax post left thoracentesis. New right lower lobeatelectasis may be secondary to mucoid impaction. US Thoracentesis Left Result Date: January 06, 2023 Verified By: TAYLOR MUIR MD CLINICAL STATEMENT: IMPRESSION: Successful ultrasound guided thoracentesis This procedure was performed by Duy Liz PA-C under the directsupervision of Morgan Garland PA-C. XR Chest 1 View Result Date: January 06, 2023 Verified By: BHARATHI LEIVA MD CLINICAL STATEMENT: IMPRESSION: Small to moderate bilateral pleural effusions with adjacent airspace disease,greater on the left. EKG No qualifying data available. Assessment/Plan 1. Exudative pleural effusion with high protein. The LDH is low suggesting that rheumatoid arthritis as the cause is less likely. This is a discordant fluid and could be related to pulmonary edema there is cardiogenic in the setting of diuresis Plan: 1. Transition to prednisone 40 mg and discontinue Solu-Medrol 2. Gentle diuresis 3. So far 80 rheumatic evaluation and has been pending CRP is elevated. Patient does have rheumatology at [place] that she follows 4. Gentle diuresis Digitally Signed by WINIFRED CUMMINS MD on 01/09/2023 10:10 AM [facility] 01-08-2023 Note Date of Service 01/08/2023 Reason for Consultation Medical management, transfer of service Referring Physician Dr. Yeboah History of Present Illness Patient is a 57-year-old female admitted to Cardiology service on January 06 from [facility] with chief complaint of shortness of breath found to have a pericardial effusion. Past medical history of hypertension, hyperlipidemia, mild nonobstructive CAD, diabetes mellitus type 2, tobacco abuse, RA, pancreatitis. Patient underwent left-sided thoracentesis on January 06 for 600 cc of yellow serous fluid. Pulmonology was consulted for further review. Not enough fluid on the right side for thoracentesis. CT thorax completed showed moderate pericardial effusion measuring 1.2 cm to 1.9 cm. Small bilateral pleural effusions. Left lower lobe reticular and groundglass infiltrates likely infectious/inflammatory process. Benign bilateral adrenal adenomas. Echocardiogram completed showed a EF of 50 to 55%. A small pericardial effusion identified. No signs of hemodynamic compromise. Per pulmonology, pleural fluid suggestive of rheumatoid arthritis because, concerning for serositis. Was started on IV Solu-Medrol. Cardiology has requested transfer service. Patient seen and evaluated today with /family at the bedside. Patient resting in bed comfortably. In no acute distress. States she feels much better after the fluid was removed from her lung. Denies any chest pains. Does admit to some shortness of breath with ambulating. Denies any weakness. Discussed her A1c result of 7.2. States she was just diagnosed with diabetes in November and her A1c at the time was 7.4. She has been taking her metformin twice a day. Review of Systems Pertinent positives as per HPI, other systems reviewed were negative. Physical Exam Vitals and Measurements T: 36.6 C (Oral) TMIN: 36.4 C (Oral) TMAX: 36.8 C (Oral) HR: 90(Monitored) RR: 18 BP: 122/62 SpO2: 93% Weight Dosing Weight: 98.7 kg (01/06/23) Constitutional: Patient is alert and oriented x3. In no acute distress. Eyes: PERRLA, EOM intact. ENT: hearing grossly intact, mucous membranes moist, Respiratory: Breathing nonlabored, lungs clear to auscultation bilaterally. Heart: Regular rate and rhythm. S1 S2 heard. GI: Bowel sounds x4 quadrants. No rebound tenderness or guarding. Neuro: speech clear. ALMONTE equally. memory intact Skin: no rashes or lesions noted. skin warm, dry and intact. Lab Results 01/08 05:21 WBC: 11.7 H Hgb: 10.6 L Hct: 32.1 L Platelet: 279 Neutrophil %: 88.6 H Glucose Level: 188 H Sodium Level: 141 Potassium Level: 4.2 BUN: 20.0 Creatinine Lvl (s): 0.39 L 01/07 04:00 WBC: 8.3 Hgb: 10.7 L Hct: 32.2 L Platelet: 245 Neutrophil %: 89.1 H Glucose Level: 200 H Sodium Level: 140 Potassium Level: 4.2 BUN: 16.0 Creatinine Lvl (s): 0.39 L Imaging Results and Diagnostics XR Chest 2 Views Result Date: January 08, 2023 Verified By: BHARATHI KAY DO CLINICAL STATEMENT: IMPRESSION: No significant interval change. US Chest Result Date: January 07, 2023 Verified By: BLANCA GUTIÉRREZ MD CLINICAL STATEMENT: IMPRESSION: CT Thorax w/o Contrast Result Date: January 06, 2023 Verified By: REED CALDERA DO CLINICAL STATEMENT: IMPRESSION: Moderate pericardial effusion, measuring 1.2 cm to maximum 1.9 cm. Small bilateral pleural effusions. Left lower lobe reticular andground-glass infiltrates, likely an infectious/inflammatory process. Benign bilateral adrenal adenomas. CCU nurse Sharmila was directly informed of the pericardial effusion, pleuraleffusions, left lower lobe pneumonia at the time of the dictation. IMPORTANT PHYSICIAN INPUT NECESSARY, DO NOT FILE! XR Chest 1 View Result Date: January 06, 2023 Verified By: MELVIN MORENO DO CLINICAL STATEMENT: IMPRESSION: No visible pneumothorax post left thoracentesis. New right lower lobeatelectasis may be secondary to mucoid impaction. US Thoracentesis Left Result Date: January 06, 2023 Verified By: TAYLOR MUIR MD CLINICAL STATEMENT: IMPRESSION: Successful ultrasound guided thoracentesis This procedure was performed by Duy Liz PA-C under the directsupervision of Morgan Garland PA-C. XR Chest 1 View Result Date: January 06, 2023 Verified By: BHARATHI LEIVA MD CLINICAL STATEMENT: IMPRESSION: Small to moderate bilateral pleural effusions with adjacent airspace disease,greater on the left. Assessment/Plan 1. Diabetes mellitus type 2 2. Pleural effusion 3. Pericardial effusion Patient presented as a transfer from [facility] under cardiology service for complaint of shortness of breath found to have a pericardial effusion. Patient has also been found to have pleural effusions. Work-up so far is concerning for serositis. Awaiting final pathology/fluid analysis. Pulmonology has been involved and she has been on IV Solu-Medrol. Patient is status post left-sided thoracentesis with removal of 600 cc of fluid. Right side was unable to be drained due to lack of volume. CT thorax completed showed moderate pericardial effusion measuring 1.2 cm to 1.9 cm. Small bilateral pleural effusions. Left lower lobe reticular and groundglass infiltrates likely infectious/inflammatory process. Benign bilateral adrenal adenomas. Echocardiogram completed showed a EF of 50 to 55%. A small pericardial effusion identified. No signs of hemodynamic compromise. Diabetes mellitus type 2 her blood sugars are worsened due to IV steroids. A1c 7.2. We will resume her metformin, continue corrective scale insulin, add Lantus 10 units at night. Continue to trend glucose levels. Hospitalist were consulted for transfer of care request, we will accept transfer of care for this patient. discussed with Dr. Posey A total of 35 minutes reviewing patient's diagnostic, labs/tests, seeing and examining the patient and documenting in the medical record, please see assessment for further details. Problem List/Past Medical History Ongoing Arthritis H/O acute pancreatitis Hypertension Historical No qualifying data Procedure/Surgical History Cholecystectomy Appendicitis Medications Inpatient albuterol, 2.5 mg= 3 mL, Inhalation, q2h, PRN atorvastatin, 20 mg= 1 tab(s), Oral, qHS budesonide 0.5 mg/2 mL inhalation suspension, 0.5 mg= 2 mL, Inhalation, BIDRT Coenzyme Q10, 100 mg= 1 cap(s), Oral, qDay doxycycline, 100 mg= 1 cap(s), Oral, BID DULoxetine, 60 mg= 1 cap(s), Oral, qHS DuoNeb, 3 mL, Inhalation, TIDRT famotidine, 20 mg= 1 tab(s), Oral, qDay furosemide, 20 mg= 1 tab(s), Oral, qDay heparin 5000 units/mL injection, 5000 unit(s)= 1 mL, Subcutaneous, q8h HumaLOG 100 units/mL subcutaneous solution, Give 0-5 units/dose, Subcutaneous, TIDAC hydroxychloroquine, 200 mg= 1 tab(s), Oral, BID ibuprofen, 200 mg= 1 tab(s), Oral, q6hr, PRN Lantus, 10 unit(s)= 0.1 mL, Subcutaneous (INT), qHS leflunomide, 20 mg= 1 tab(s), Oral, qDay levothyroxine, 150 mcg= 1 tab(s), Oral, qDay magnesium sulfate for IV bolus, 2 gram(s)= 50 mL, IV Piggyback, AsDirected, PRN magnesium sulfate for IV bolus, 4 gram(s)= 100 mL, IV Piggyback, AsDirected, PRN magnesium sulfate for IV bolus meclizine, 25 mg= 1 tab(s), Oral, TID, PRN potassium chloride, 20 mEq= 1 tab(s), Oral, AsDirected, PRN potassium chloride, 40 mEq= 2 tab(s), Oral, AsDirected, PRN potassium chloride, 40 mEq= 2 tab(s), Oral, AsDirected, PRN potassium chloride bolus, 20 mEq= 100 mL, IV Piggyback, AsDirected, PRN predniSONE, 10 mg= 1 tab(s), Oral, qDay, PRN SOLU-Medrol 40 mg pf injection, 30 mg= 0.75 mL, IV Push, q8h sterile water, 1 mL, Miscellaneous, q8h Home albuterol MDI (90 mcg/inh) CFC free inhalation aerosol, 1 puff(s), Inhalation, q2h, PRN amLODIPine, 10 mg, Oral, qDay atorvastatin 20 mg oral tablet, 20 mg= 1 tab(s), Oral, qHS Coenzyme Q10, 100 mg, Oral, qDay doxycycline, 100 mg, Oral, BID DULoxetine 30 mg oral delayed release capsule, 60 mg= 2 cap(s), Oral, qHS famotidine 20 mg oral tablet, 20 mg= 1 tab(s), Oral, qDay hydroxychloroquine 200 mg oral tablet, 200 mg= 1 tab(s), Oral, BID ibuprofen, 200 mg, Oral, q6hr, PRN leflunomide 20 mg oral tablet, 20 mg= 1 tab(s), Oral, qDay levothyroxine, 150 mcg, Oral, qDay losartan 100 mg oral tablet, 100 mg= 1 tab(s), Oral, qDay meclizine 25 mg oral tablet, 25 mg= 1 tab(s), Oral, TID, PRN MetFORMIN (Eqv-Fortamet), 1000 mg, Oral, BID predniSONE, 10 mg, Oral, qDay, PRN Allergies Bactrim sulfa drug Social History Smoking Status - 03/16/2018 Current every day smoker Alcohol Use: Past. Frequency: 1-2 times per month., 01/06/2023 Type: Liquor., 03/11/2018 Substance Abuse - Denies Substance Abuse, 03/10/2018 Tobacco Nicotine Use: 10 or more cigarettes (1/2 pack or more)/day in last 30 days. Type: Cigarettes., 01/06/2023 Family History Breast cancer: Sister. Cancer: Father. Cancer: Father and Sister. Diabetes mellitus: Sister. Heart attack: Mother. Heart disease: Sister. Hypertension: Sister. Stroke: Sister. Immunizations No qualifying data available. Digitally Signed by JUAN C DAO on 01/08/2023 03:10 PM [facility] 01-08-2023 Note ORIGINAL EXAMINATION: TWO XRAY VIEWS OF THE CHEST01/08/2023 11:29 am COMPARISON: January 06, 2023 HISTORY: ORDERING SYSTEM PROVIDED HISTORY: Reason for Exam: Follow up on pleural affusion FINDINGS: The cardiomediastinal is again enlarged, partly secondary to known pericardial effusion and medial elevation of the right hemidiaphragm. There are similar small pleural effusions. Mild underlying atelectatic change. No vascular congestion or pneumothorax. Multiple lower thoracic and upper lumbar spine anterior wedging and compression deformities. IMPRESSION: No significant interval change. Interpreted by: Bharathi Kay DO Preliminary Report By: Bharathi Kay DO Electronically signed By Bhartahi Kay DO Dictated Date: 01/08/2023 1:43:46 PM Prelim Date: 01/08/2023 1:58:59 PM Sign Date: 01/08/2023 1:58:59 PM Ordering Provider: [facility] 01-08-2023 Note ORIGINAL EXAMINATION: TWO XRAY VIEWS OF THE CHEST01/08/2023 11:29 am COMPARISON: January 06, 2023 HISTORY: ORDERING SYSTEM PROVIDED HISTORY: Reason for Exam: Follow up on pleural affusion FINDINGS: The cardiomediastinal is again enlarged, partly secondary to known pericardial effusion and medial elevation of the right hemidiaphragm. There are similar small pleural effusions. Mild underlying atelectatic change. No vascular congestion or pneumothorax. Multiple lower thoracic and upper lumbar spine anterior wedging and compression deformities. IMPRESSION: No significant interval change. Interpreted by: Bharathi Kay DO Preliminary Report By: Bharathi Kay DO Electronically signed By Bharathi Kay DO Dictated Date: 01/08/2023 1:43:46 PM Prelim Date: 01/08/2023 1:58:59 PM Sign Date: 01/08/2023 1:58:59 PM Ordering Provider: [facility] 01-08-2023 Pulmonary Progress note Date of Service 01/08/2023 Subjective Feels significantly better. No contralateral fluid that requires drainage. The pleural fluid is exudate. Objective Vitals and Measurements T: 36.7 C (Oral) TMIN: 36.6 C (Oral) TMAX: 36.8 C (Oral) HR: 88(Monitored) RR: 18 BP: 110/62 SpO2: 93% Physical Exam Heart: Regular rhythm no additional heart sounds Lungs: Clear breath sounds bilaterally no wheezing Abdomen: Soft no tenderness Lower extremities: No edema Weight Dosing Weight: 98.7 kg (01/06/23) Medications Medications (26) Active Scheduled: (15) albuterol - ipratropium 2.5 mg-0.5 mg/3 mL Inhal Jennifer UD 3 mL, Inhalation, TIDRT atorvastatin 20 mg tablet 20 mg 1 tab(s), Oral, qHS budesonide 0.5 mg/2 mL Susp UD 0.5 mg 2 mL, Inhalation, BIDRT doxycycline hyclate 100 mg Capsule 100 mg 1 cap(s), Oral, BID duloxetine [address] capsule 60 mg 1 cap(s), Oral, qHS famotidine 20 mg tablet 20 mg 1 tab(s), Oral, qDay furosemide 20 mg/2 mL vial 20 mg 2 mL, IV Push, BID heparin 5,000 units/mL (1 mL) vial 5,000 unit(s) 1 mL, Subcutaneous, q8h hydroxychloroquine 200 mg tablet 200 mg 1 tab(s), Oral, BID insulin lispro 100 units/mL Soln (3 mL) Give 0-5 units/dose, Subcutaneous, TIDAC leflunomide 20 mg Tablet 20 mg 1 tab(s), Oral, qDay levothyroxine 150 mcg tablet 150 mcg 1 tab(s), Oral, qDay methylPREDNISolone succ 40mg (40 mg/1mL) after dilution 30 mg 0.75 mL, IV Push, q8h sterile water - Solution 10 mL 1 mL, Miscellaneous, q8h ubiquinone 100 mg capsule 100 mg 1 cap(s), Oral, qDay Continuous: (0) PRN: (11) albuterol 0.083% Soln UD (2.5mg/3 mL) 2.5 mg 3 mL, Inhalation, q2h ibuprofen 200 mg Tablet 200 mg 1 tab(s), Oral, q6hr magnesium sulfate 4 gram(s)/100mL PMX 4 g 100 mL, IV Piggyback, AsDirected magnesium sulfate 50% (500mg/mL) 6 g 12 mL, IV Piggyback, AsDirected magnesium sulfate PMX 2 g 50 mL, IV Piggyback, AsDirected meclizine 25 mg Tablet 25 mg 1 tab(s), Oral, TID potassium chloride (PMX) 20 mEq/100 mL 20 mEq 100 mL, IV Piggyback, AsDirected potassium chloride 20 mEq ER tablet 20 mEq 1 tab(s), Oral, AsDirected potassium chloride 20 mEq ER tablet 40 mEq 2 tab(s), Oral, AsDirected potassium chloride 20 mEq ER tablet 40 mEq 2 tab(s), Oral, AsDirected predniSONE 10 mg tablet 10 mg 1 tab(s), Oral, qDay Lab Results 01/08 05:21 WBC: 11.7 H Hgb: 10.6 L Hct: 32.1 L Platelet: 279 Neutrophil %: 88.6 H Glucose Level: 188 H Sodium Level: 141 Potassium Level: 4.2 BUN: 20.0 Creatinine Lvl (s): 0.39 L 01/07 04:00 WBC: 8.3 Hgb: 10.7 L Hct: 32.2 L Platelet: 245 Neutrophil %: 89.1 H Glucose Level: 200 H Sodium Level: 140 Potassium Level: 4.2 BUN: 16.0 Creatinine Lvl (s): 0.39 L Imaging Results and Diagnostics US Chest Result Date: January 07, 2023 Verified By: BLANCA GUTIÉRREZ MD CLINICAL STATEMENT: IMPRESSION: CT Thorax w/o Contrast Result Date: January 06, 2023 Verified By: REED CALDERA DO CLINICAL STATEMENT: IMPRESSION: Moderate pericardial effusion, measuring 1.2 cm to maximum 1.9 cm. Small bilateral pleural effusions. Left lower lobe reticular andground-glass infiltrates, likely an infectious/inflammatory process. Benign bilateral adrenal adenomas. CCU nurse Sharmila was directly informed of the pericardial effusion, pleuraleffusions, left lower lobe pneumonia at the time of the dictation. IMPORTANT PHYSICIAN INPUT NECESSARY, DO NOT FILE! XR Chest 1 View Result Date: January 06, 2023 Verified By: MELVIN MORENO DO CLINICAL STATEMENT: IMPRESSION: No visible pneumothorax post left thoracentesis. New right lower lobeatelectasis may be secondary to mucoid impaction. US Thoracentesis Left Result Date: January 06, 2023 Verified By: TAYLOR MUIR MD CLINICAL STATEMENT: IMPRESSION: Successful ultrasound guided thoracentesis This procedure was performed by Duy Liz PA-C under the directsupervision of Morgan Garland PA-C. XR Chest 1 View Result Date: January 06, 2023 Verified By: BHARATHI LEIVA MD CLINICAL STATEMENT: IMPRESSION: Small to moderate bilateral pleural effusions with adjacent airspace disease,greater on the left. EKG No qualifying data available. Assessment/Plan 1. Exudative pleural effusion with high protein. The LDH is low suggesting that rheumatoid arthritis as the cause is less likely but will continue await final results. Plan: 1. Repeat CXR in am 2. Continue Solu-Medrol 30 mg IV every 8 hours. 3. continue to follow. Digitally Signed by WINIFRED CUMMINS MD on 01/08/2023 10:00 AM [facility] 01-08-2023 Cardiology Progress note Date of Service 01/08/23 Chief Complaint SOB HPI 57-year-old woman with past medical history of hypertension, hyperlipidemia, mild nonobstructive CAD, type 2 diabetes, active tobacco abuse, history of dizziness, rheumatoid arthritis, and history of pancreatitis was transferred from [facility] for pericardial effusion. Patient states that she presented to [facility] on Wednesday for complaints of shortness of breath. Patient was seen and discharged with p.o. antibiotics. Patient states she continued to get worsening shortness of breath so she went back to the hospital on Wednesday with complaints of worsening shortness of breath and pressure-like chest pain. Patient states her chest pain is worsened with deep breathing or movement. Patient states she had an x-ray, CTA of the chest, and transthoracic echocardiogram which were concerning for pericardial effusion and bilateral pleural effusions. Patient states she was transferred for further work-up to [facility]. Patient states she had a cardiac catheterization and transthoracic echocardiogram in 2021 because she has a history of dizziness, TTE was within normal limit and cardiac catheterization showed mild nonobstructive coronary artery disease. Initial vital signs here 114/72 BP, 103 heart rate, 25 respiration rate. Initial CBC showed leukocytosis and anemia. Initial BMP within normal limit. Initial chest x-ray showed bilateral pleural effusions. Pulmonology was consulted during stay for management. Patient underwent left-sided thoracentesis during stay. Patient then underwent noncontrast CT scan of the chest which showed moderate pericardial effusion, and small bilateral pleural effusions. Transthoracic echocardiogram during stay showed LVEF 60 to 65%, dilated IVC, with blunted respirophasic changes and a moderate pericardial effusion. Patient underwent IV diuresis during stay. Repeat limited transthoracic echocardiogram showed a reduction in size of the pericardial effusion. Subjective No acute events overnight No new complaints Objective Vitals and Measurements T: 36.7 C (Oral) TMIN: 36.6 C (Oral) TMAX: 36.8 C (Oral) HR: 87 RR: 18 BP: 122/66 SpO2: 93% Intake and Output 7AM Yesterday to 7AM Today Intake and Output (Last 24 hours) Intake Output Total Summary Total Intake 0.00 Total Output 0.00 Fluid Balance 0.00 Physical Exam Weight Dosing Weight: 98.7 kg (01/06/23) Medications Medications (26) Active Scheduled: (15) albuterol - ipratropium 2.5 mg-0.5 mg/3 mL Inhal Jennifer UD 3 mL, Inhalation, TIDRT atorvastatin 20 mg tablet 20 mg 1 tab(s), Oral, qHS budesonide 0.5 mg/2 mL Susp UD 0.5 mg 2 mL, Inhalation, BIDRT doxycycline hyclate 100 mg Capsule 100 mg 1 cap(s), Oral, BID duloxetine [address] capsule 60 mg 1 cap(s), Oral, qHS famotidine 20 mg tablet 20 mg 1 tab(s), Oral, qDay furosemide 20 mg/2 mL vial 20 mg 2 mL, IV Push, BID heparin 5,000 units/mL (1 mL) vial 5,000 unit(s) 1 mL, Subcutaneous, q8h hydroxychloroquine 200 mg tablet 200 mg 1 tab(s), Oral, BID insulin lispro 100 units/mL Soln (3 mL) Give 0-5 units/dose, Subcutaneous, TIDAC leflunomide 20 mg Tablet 20 mg 1 tab(s), Oral, qDay levothyroxine 150 mcg tablet 150 mcg 1 tab(s), Oral, qDay methylPREDNISolone succ 40mg (40 mg/1mL) after dilution 30 mg 0.75 mL, IV Push, q8h sterile water - Solution 10 mL 1 mL, Miscellaneous, q8h ubiquinone 100 mg capsule 100 mg 1 cap(s), Oral, qDay Continuous: (0) PRN: (11) albuterol 0.083% Soln UD (2.5mg/3 mL) 2.5 mg 3 mL, Inhalation, q2h ibuprofen 200 mg Tablet 200 mg 1 tab(s), Oral, q6hr magnesium sulfate 4 gram(s)/100mL PMX 4 g 100 mL, IV Piggyback, AsDirected magnesium sulfate 50% (500mg/mL) 6 g 12 mL, IV Piggyback, AsDirected magnesium sulfate PMX 2 g 50 mL, IV Piggyback, AsDirected meclizine 25 mg Tablet 25 mg 1 tab(s), Oral, TID potassium chloride (PMX) 20 mEq/100 mL 20 mEq 100 mL, IV Piggyback, AsDirected potassium chloride 20 mEq ER tablet 20 mEq 1 tab(s), Oral, AsDirected potassium chloride 20 mEq ER tablet 40 mEq 2 tab(s), Oral, AsDirected potassium chloride 20 mEq ER tablet 40 mEq 2 tab(s), Oral, AsDirected predniSONE 10 mg tablet 10 mg 1 tab(s), Oral, qDay Lab Results 01/08 05:21 WBC: 11.7 H Hgb: 10.6 L Hct: 32.1 L Platelet: 279 Neutrophil %: 88.6 H Glucose Level: 188 H Sodium Level: 141 Potassium Level: 4.2 BUN: 20.0 Creatinine Lvl (s): 0.39 L 01/07 04:00 WBC: 8.3 Hgb: 10.7 L Hct: 32.2 L Platelet: 245 Neutrophil %: 89.1 H Glucose Level: 200 H Sodium Level: 140 Potassium Level: 4.2 BUN: 16.0 Creatinine Lvl (s): 0.39 L Imaging Results and Diagnostics US Chest Result Date: January 07, 2023 Verified By: BLANCA GUTIÉRREZ MD CLINICAL STATEMENT: IMPRESSION: CT Thorax w/o Contrast Result Date: January 06, 2023 Verified By: REED CALDERA DO CLINICAL STATEMENT: IMPRESSION: Moderate pericardial effusion, measuring 1.2 cm to maximum 1.9 cm. Small bilateral pleural effusions. Left lower lobe reticular andground-glass infiltrates, likely an infectious/inflammatory process. Benign bilateral adrenal adenomas. CCU nurse Sharmila was directly informed of the pericardial effusion, pleuraleffusions, left lower lobe pneumonia at the time of the dictation. IMPORTANT PHYSICIAN INPUT NECESSARY, DO NOT FILE! XR Chest 1 View Result Date: January 06, 2023 Verified By: MELVIN MORENO DO CLINICAL STATEMENT: IMPRESSION: No visible pneumothorax post left thoracentesis. New right lower lobeatelectasis may be secondary to mucoid impaction. US Thoracentesis Left Result Date: January 06, 2023 Verified By: TAYLOR MUIR MD CLINICAL STATEMENT: IMPRESSION: Successful ultrasound guided thoracentesis This procedure was performed by Duy Liz PA-C under the directsupervision of Morgan Garland PA-C. XR Chest 1 View Result Date: January 06, 2023 Verified By: BHARATHI LEIVA MD CLINICAL STATEMENT: IMPRESSION: Small to moderate bilateral pleural effusions with adjacent airspace disease,greater on the left. Transthoracic Echocardiography Study date: 01/06/2023 Study Time: 07:56 AM Summary: 1. Left ventricle: The cavity size is normal. Wall thickness is mildly increased. Systolic function is normal. The estimated ejection fraction is 60-65%. 2. Aortic valve: Thickening, consistent with sclerosis. 3. Mitral valve: The annulus is mildly calcified. 4. Right ventricle: Systolic function is mildly to moderately reduced. 5. Inferior vena cava: The IVC is dilated. Respirophasic diameter changes are blunted (< 50%). 6. Pericardium, extracardiac: A moderate, free-flowing pericardial effusion is identified circumferential to the heart. There is no evidence of hemodynamic compromise. There is a left pleural effusion. Study data: Patient unit: CCU. Patient room number: 0353. Transthoracic echocardiography. M-mode, complete 2D, complete spectral Doppler, and color Doppler. Study status: Routine. Patient status: Inpatient. Objective: Chf. Location: Bedside. Procedure room # 353. Procedure: Transthoracic echocardiography was performed for diagnosis. Image quality was fair. The study was technically limited due to body habitus. Left ventricle: The cavity size is normal. Wall thickness is mildly increased. Systolic function is normal. The estimated ejection fraction is 60-65%. The wall mass is 179 g. The wall mass index is 85 g/m . Left atrium: The atrium is normal in size. The volume index by biplane method is 14 ml/m . Right ventricle: The cavity size is normal. Wall thickness is normal. Systolic function is mildly to moderately reduced. Right atrium: The atrium is normal in size. Mitral valve: The annulus is mildly calcified. Leaflet separation is normal. The peak E/A ratio is 0.98. The valve area (LVOT continuity) is 2.0 cm . Doppler: Transvalvular velocity is within the normal range. There is no evidence for stenosis. There is trivial regurgitation. The mean diastolic gradient is 5 mm Hg. Aortic valve: The valve is trileaflet. Thickening, consistent with sclerosis. Cusp separation is normal. The peak systolic velocity is 1.4 m/sec. The systolic velocity-time integral is 25.7 cm. The mean systolic gradient is 4 mm Hg. The LVOT to aortic valve VTI ratio is 0.69. The valve area by VTI is 2.1 cm . The valve area by peak velocity is 2.2 cm . Doppler: Transvalvular velocity is within the normal range. There is no stenosis. There is no regurgitation. Tricuspid valve: The valve is structurally normal. Leaflet separation is normal. Doppler: Transvalvular velocity is within the normal range. There is no evidence for stenosis. There is trivial regurgitation. Pulmonic valve: Not well visualized. The peak systolic velocity is 0.92 m/sec. Systemic veins: Inferior vena cava: The IVC is dilated. Respirophasic diameter changes are blunted (< 50%). Pericardium: A moderate, free-flowing pericardial effusion is identified circumferential to the heart. There is no evidence of hemodynamic compromise. There is a left pleural effusion. Normal sinus rhythm. Transthoracic Echocardiography Study date: 01/07/2023 Study Time: 02:25 PM Summary: 1. Left ventricle: The cavity size is normal. Wall thickness is moderately increased. Systolic function is normal. The estimated ejection fraction is 50-55%. Wall motion is normal; there are no regional wall motion abnormalities. 2. Pericardium, extracardiac: A small pericardial effusion is identified. largest size 0.7 cm posterior to LV base. No signs of hrmodynamic compromise. Study data: Patient unit: CCU. Patient room number: 0353. Transthoracic echocardiography, limited study. M-mode, limited 2D, and limited spectral Doppler. Study status: Routine. Patient status: Inpatient. Objective: Limited to f/u pericardial effusion. Location: Bedside. Procedure: Transthoracic echocardiography was performed. Image quality was fair. Left ventricle: The cavity size is normal. Wall thickness is moderately increased. Systolic function is normal. The estimated ejection fraction is 50-55%. Wall motion is normal; there are no regional wall motion abnormalities. The wall mass is 274 g. The wall mass index is 131 g/m . Left atrium: The volume index by biplane method is 23 ml/m . Systemic veins: Inferior vena cava: The IVC is dilated 2.5 cm Respirophasic diameter changes are blunted (< 50%). Pericardium: A small pericardial effusion is identified. largest size 0.7 cm posterior to LV base. No signs of hrmodynamic compromise. Measurements EKG EKG - Completed -- 01/06/23 6:21:00 EDT, Admission Assessment/Plan #Atypical angina #Dyspnea on exertion #Acute hypoxic respiratory failure, improving #HFpEF #Moderate pericardial effusion, improved #Bilateral pleural effusion status post left-sided thoracentesis #Exudative pleural effusion #Atypical pneumonia? #Hypertension #Hyperlipidemia #Moderate nonobstructive CAD #Type 2 diabetes #Tobacco abuse #History of dizziness #Rheumatoid arthritis #History of pancreatitis - Latest EKG reviewed - Latest imaging reviewed - Latest echocardiogram reviewed Plan: - F/U limited transthoracic echocardiogram on pericardial effusion - Daily weight, strict I+Os - Monitor & replace electrolytes as needed, goal K >4 mEq/L, Mg >2 mg/dL - Holding amlodipine 10 mg daily - Holding losartan 100 mg daily - Decreasing to furosemide 20 mg daily - Continue Atorvastatin 20 mg daily - Continue all other medications as prescribed - Consulted Pulmonology, appreciate recommendations - Consulted hospitalist, will transfer care Patient seen and discussed with Dr. Kathie Rodriguez II, MD PGY-V Cardiovascular Disease Fellow Pager: [phone] Digitally Signed by BONITA RODRIGUEZ MD on 01/08/2023 01:56 PM Digitally Signed by CHRISTIANNE FULLER MD [facility] 01-07-2023 Cardiology Progress note Date of Service 01/07/23 Chief Complaint SOB HPI 57-year-old woman with past medical history of hypertension, hyperlipidemia, mild nonobstructive CAD, type 2 diabetes, active tobacco abuse, history of dizziness, rheumatoid arthritis, and history of pancreatitis was transferred from [facility] for pericardial effusion. Patient states that she presented to [facility] on Wednesday for complaints of shortness of breath. Patient was seen and discharged with p.o. antibiotics. Patient states she continued to get worsening shortness of breath so she went back to the hospital on Wednesday with complaints of worsening shortness of breath and pressure-like chest pain. Patient states her chest pain is worsened with deep breathing or movement. Patient states she had an x-ray, CTA of the chest, and transthoracic echocardiogram which were concerning for pericardial effusion and bilateral pleural effusions. Patient states she was transferred for further work-up to [facility]. Patient states she had a cardiac catheterization and transthoracic echocardiogram in 2021 because she has a history of dizziness, TTE was within normal limit and cardiac catheterization showed mild nonobstructive coronary artery disease. Initial vital signs here 114/72 BP, 103 heart rate, 25 respiration rate. Initial CBC showed leukocytosis and anemia. Initial BMP within normal limit. Initial chest x-ray showed bilateral pleural effusions. Pulmonology was consulted during stay for management. Patient underwent left-sided thoracentesis during stay. Patient then underwent noncontrast CT scan of the chest which showed moderate pericardial effusion, and small bilateral pleural effusions. Transthoracic echocardiogram during stay showed LVEF 60 to 65%, dilated IVC, with blunted respirophasic changes and a moderate pericardial effusion. Subjective No acute events overnight Breathing she states is now easier and her chest pressure is resolved Objective Vitals and Measurements T: 36.6 C (Oral) TMIN: 36.6 C (Oral) TMAX: 37.0 C (Oral) HR: 92 RR: 18 BP: 138/66 SpO2: 94% Intake and Output 7AM Yesterday to 7AM Today Intake and Output (Last 24 hours) Intake Oral Intake 420.00 Output Urine Voided 200.00 Urine Count 2.00 Total Summary Total Intake 420.00 Total Output 200.00 Fluid Balance 220.00 Physical Exam General: AAOX3, NAD, morbidly obese woman HEENT: Anicteric sclera, MMM Neck: Trachea midline, no JVD appreciated CVS: RRR, normal S1/S2, no murmurs/rubs/gallops Lung: Decreased breath sounds in bases bilaterally, no increased work of breathing Abd: Soft, NT/ND Extrem: WWP, no LE edema Skin: Warm, Intact Neuro: AAOX3, spontaneous movement of all extremities Psych: Appropriate mood & affect Weight Dosing Weight: 98.7 kg (01/06/23) Medications Medications (24) Active Scheduled: (13) albuterol - ipratropium 2.5 mg-0.5 mg/3 mL Inhal Jennifer UD 3 mL, Inhalation, TIDRT atorvastatin 20 mg tablet 20 mg 1 tab(s), Oral, qHS budesonide 0.5 mg/2 mL Susp UD 0.5 mg 2 mL, Inhalation, BIDRT doxycycline hyclate 100 mg Capsule 100 mg 1 cap(s), Oral, BID duloxetine [address] capsule 60 mg 1 cap(s), Oral, qHS famotidine 20 mg tablet 20 mg 1 tab(s), Oral, qDay heparin 5,000 units/mL (1 mL) vial 5,000 unit(s) 1 mL, Subcutaneous, q8h hydroxychloroquine 200 mg tablet 200 mg 1 tab(s), Oral, BID leflunomide 20 mg Tablet 20 mg 1 tab(s), Oral, qDay levothyroxine 150 mcg tablet 150 mcg 1 tab(s), Oral, qDay methylPREDNISolone succ 40mg (40 mg/1mL) after dilution 30 mg 0.75 mL, IV Push, q8h sterile water - Solution 10 mL 1 mL, Miscellaneous, q8h ubiquinone 100 mg capsule 100 mg 1 cap(s), Oral, qDay Continuous: (0) PRN: (11) albuterol 0.083% Soln UD (2.5mg/3 mL) 2.5 mg 3 mL, Inhalation, q2h ibuprofen 200 mg Tablet 200 mg 1 tab(s), Oral, q6hr magnesium sulfate 4 gram(s)/100mL PMX 4 g 100 mL, IV Piggyback, AsDirected magnesium sulfate 50% (500mg/mL) 6 g 12 mL, IV Piggyback, AsDirected magnesium sulfate PMX 2 g 50 mL, IV Piggyback, AsDirected meclizine 25 mg Tablet 25 mg 1 tab(s), Oral, TID potassium chloride (PMX) 20 mEq/100 mL 20 mEq 100 mL, IV Piggyback, AsDirected potassium chloride 20 mEq ER tablet 20 mEq 1 tab(s), Oral, AsDirected potassium chloride 20 mEq ER tablet 40 mEq 2 tab(s), Oral, AsDirected potassium chloride 20 mEq ER tablet 40 mEq 2 tab(s), Oral, AsDirected predniSONE 10 mg tablet 10 mg 1 tab(s), Oral, qDay Lab Results 01/07 04:00 WBC: 8.3 Hgb: 10.7 L Hct: 32.2 L Platelet: 245 Neutrophil %: 89.1 H Glucose Level: 200 H Sodium Level: 140 Potassium Level: 4.2 BUN: 16.0 Creatinine Lvl (s): 0.39 L 01/06 07:03 WBC: 14.0 H Hgb: 10.3 L Hct: 32.4 L Platelet: 272 Neutrophil %: 82.7 H Glucose Level: 169 H Sodium Level: 140 Potassium Level: 3.6 BUN: 22.0 Creatinine Lvl (s): 0.44 L Imaging Results and Diagnostics CT Thorax w/o Contrast Result Date: January 06, 2023 Verified By: REED CALDERA DO CLINICAL STATEMENT: IMPRESSION: Moderate pericardial effusion, measuring 1.2 cm to maximum 1.9 cm. Small bilateral pleural effusions. Left lower lobe reticular andground-glass infiltrates, likely an infectious/inflammatory process. Benign bilateral adrenal adenomas. CCU nurse Sharmila was directly informed of the pericardial effusion, pleuraleffusions, left lower lobe pneumonia at the time of the dictation. IMPORTANT PHYSICIAN INPUT NECESSARY, DO NOT FILE! XR Chest 1 View Result Date: January 06, 2023 Verified By: MELVIN MORENO DO CLINICAL STATEMENT: IMPRESSION: No visible pneumothorax post left thoracentesis. New right lower lobeatelectasis may be secondary to mucoid impaction. US Thoracentesis Left Result Date: January 06, 2023 Verified By: TAYLOR MUIR MD CLINICAL STATEMENT: IMPRESSION: Successful ultrasound guided thoracentesis This procedure was performed by Duy Liz PA-C under the directsupervision of Morgan Garland PA-C. XR Chest 1 View Result Date: January 06, 2023 Verified By: BHARATHI LEIVA MD CLINICAL STATEMENT: IMPRESSION: Small to moderate bilateral pleural effusions with adjacent airspace disease,greater on the left. Transthoracic Echocardiography Study date: 01/06/2023 Study Time: 07:56 AM Summary: 1. Left ventricle: The cavity size is normal. Wall thickness is mildly increased. Systolic function is normal. The estimated ejection fraction is 60-65%. 2. Aortic valve: Thickening, consistent with sclerosis. 3. Mitral valve: The annulus is mildly calcified. 4. Right ventricle: Systolic function is mildly to moderately reduced. 5. Inferior vena cava: The IVC is dilated. Respirophasic diameter changes are blunted (< 50%). 6. Pericardium, extracardiac: A moderate, free-flowing pericardial effusion is identified circumferential to the heart. There is no evidence of hemodynamic compromise. There is a left pleural effusion. Study data: Patient unit: CCU. Patient room number: 0353. Transthoracic echocardiography. M-mode, complete 2D, complete spectral Doppler, and color Doppler. Study status: Routine. Patient status: Inpatient. Objective: Chf. Location: Bedside. Procedure room # 353. Procedure: Transthoracic echocardiography was performed for diagnosis. Image quality was fair. The study was technically limited due to body habitus. Left ventricle: The cavity size is normal. Wall thickness is mildly increased. Systolic function is normal. The estimated ejection fraction is 60-65%. The wall mass is 179 g. The wall mass index is 85 g/m . Left atrium: The atrium is normal in size. The volume index by biplane method is 14 ml/m . Right ventricle: The cavity size is normal. Wall thickness is normal. Systolic function is mildly to moderately reduced. Right atrium: The atrium is normal in size. Mitral valve: The annulus is mildly calcified. Leaflet separation is normal. The peak E/A ratio is 0.98. The valve area (LVOT continuity) is 2.0 cm . Doppler: Transvalvular velocity is within the normal range. There is no evidence for stenosis. There is trivial regurgitation. The mean diastolic gradient is 5 mm Hg. Aortic valve: The valve is trileaflet. Thickening, consistent with sclerosis. Cusp separation is normal. The peak systolic velocity is 1.4 m/sec. The systolic velocity-time integral is 25.7 cm. The mean systolic gradient is 4 mm Hg. The LVOT to aortic valve VTI ratio is 0.69. The valve area by VTI is 2.1 cm . The valve area by peak velocity is 2.2 cm . Doppler: Transvalvular velocity is within the normal range. There is no stenosis. There is no regurgitation. Tricuspid valve: The valve is structurally normal. Leaflet separation is normal. Doppler: Transvalvular velocity is within the normal range. There is no evidence for stenosis. There is trivial regurgitation. Pulmonic valve: Not well visualized. The peak systolic velocity is 0.92 m/sec. Systemic veins: Inferior vena cava: The IVC is dilated. Respirophasic diameter changes are blunted (< 50%). Pericardium: A moderate, free-flowing pericardial effusion is identified circumferential to the heart. There is no evidence of hemodynamic compromise. There is a left pleural effusion. Normal sinus rhythm. EKG No qualifying data available. Assessment/Plan #Atypical angina #Dyspnea on exertion #Acute hypoxic respiratory failure #Moderate pericardial effusion #Bilateral pleural effusion status post left-sided thoracentesis #Atypical pneumonia? #Hypertension #Hyperlipidemia #Moderate nonobstructive CAD #Type 2 diabetes #Tobacco abuse #History of dizziness #Rheumatoid arthritis #History of pancreatitis - Latest EKG reviewed - Latest imaging reviewed Plan: - F/U bilateral thoracentesis - Ordered limited transthoracic echocardiogram for tomorrow to follow-up on pericardial effusion - Daily weight, strict I+Os - Monitor & replace electrolytes as needed, goal K >4 mEq/L, Mg >2 mg/dL - Holding amlodipine 10 mg daily - Holding losartan 100 mg daily - Started IV Lasix 20 mg BID - Continue Atorvastatin 20 mg daily - Continue all other medications as prescribed - Consulted Pulmonology, appreciate recommendations Patient seen and discussed with Dr. Kathie Rodriguez II, MD PGY-V Cardiovascular Disease Fellow Pager: [phone] Digitally Signed by BONITA RODRIGUEZ MD on 01/07/2023 12:13 PM [facility] 01-07-2023 Pulmonary Progress note Date of Service 01/07/2023 Subjective 57 years old lady with smoker, history of rheumatoid arthritis for 6 years followed by rheumatology service, she is on a couple of oral medications which is hydroxychloroquine leflunomide, is being evaluated for bilateral small pleural effusion and moderate pericardial effusion present with chest pain. Last 24 hours: Status post left-sided thoracentesis, LDH 151, protein 3.1, no plasma parameters to compare, post thoracenteses CAT scan reveals evidence of small bilateral pleural effusion, moderate pericardial effusion, there is a left lower lobe infiltrate I suspect overdose due to reexpansion. And patient is steroid and she tells me her chest pain has lessened Objective Vitals and Measurements T: 36.7 C (Oral) TMIN: 36.6 C (Oral) TMAX: 36.9 C (Oral) HR: 93 RR: 18 BP: 119/61 SpO2: 92% Physical Exam HEENT: Clear Heart: Regular rhythm no additional heart sounds Lungs: Clear breath sounds bilaterally no wheezing Abdomen: Soft no tenderness Lower extremities: No edema Neuro: Alert, follows command moves all 4 extremities Weight Dosing Weight: 98.7 kg (01/06/23) Medications Medications (25) Active Scheduled: (14) albuterol - ipratropium 2.5 mg-0.5 mg/3 mL Inhal Jennifer UD 3 mL, Inhalation, TIDRT atorvastatin 20 mg tablet 20 mg 1 tab(s), Oral, qHS budesonide 0.5 mg/2 mL Susp UD 0.5 mg 2 mL, Inhalation, BIDRT doxycycline hyclate 100 mg Capsule 100 mg 1 cap(s), Oral, BID duloxetine [address] capsule 60 mg 1 cap(s), Oral, qHS famotidine 20 mg tablet 20 mg 1 tab(s), Oral, qDay furosemide 20 mg/2 mL vial 20 mg 2 mL, IV Push, BID heparin 5,000 units/mL (1 mL) vial 5,000 unit(s) 1 mL, Subcutaneous, q8h hydroxychloroquine 200 mg tablet 200 mg 1 tab(s), Oral, BID leflunomide 20 mg Tablet 20 mg 1 tab(s), Oral, qDay levothyroxine 150 mcg tablet 150 mcg 1 tab(s), Oral, qDay methylPREDNISolone succ 40mg (40 mg/1mL) after dilution 30 mg 0.75 mL, IV Push, q8h sterile water - Solution 10 mL 1 mL, Miscellaneous, q8h ubiquinone 100 mg capsule 100 mg 1 cap(s), Oral, qDay Continuous: (0) PRN: (11) albuterol 0.083% Soln UD (2.5mg/3 mL) 2.5 mg 3 mL, Inhalation, q2h ibuprofen 200 mg Tablet 200 mg 1 tab(s), Oral, q6hr magnesium sulfate 4 gram(s)/100mL PMX 4 g 100 mL, IV Piggyback, AsDirected magnesium sulfate 50% (500mg/mL) 6 g 12 mL, IV Piggyback, AsDirected magnesium sulfate PMX 2 g 50 mL, IV Piggyback, AsDirected meclizine 25 mg Tablet 25 mg 1 tab(s), Oral, TID potassium chloride (PMX) 20 mEq/100 mL 20 mEq 100 mL, IV Piggyback, AsDirected potassium chloride 20 mEq ER tablet 20 mEq 1 tab(s), Oral, AsDirected potassium chloride 20 mEq ER tablet 40 mEq 2 tab(s), Oral, AsDirected potassium chloride 20 mEq ER tablet 40 mEq 2 tab(s), Oral, AsDirected predniSONE 10 mg tablet 10 mg 1 tab(s), Oral, qDay Lab Results 01/07 04:00 WBC: 8.3 Hgb: 10.7 L Hct: 32.2 L Platelet: 245 Neutrophil %: 89.1 H Glucose Level: 200 H Sodium Level: 140 Potassium Level: 4.2 BUN: 16.0 Creatinine Lvl (s): 0.39 L 01/06 07:03 WBC: 14.0 H Hgb: 10.3 L Hct: 32.4 L Platelet: 272 Neutrophil %: 82.7 H Glucose Level: 169 H Sodium Level: 140 Potassium Level: 3.6 BUN: 22.0 Creatinine Lvl (s): 0.44 L EKG EKG - Completed -- 01/06/23 6:21:00 EDT, Admission Assessment/Plan 1. Concern for serositis as a result of rheumatoid arthritis, other possibly viral illness with bilateral pleuritis and pleural effusion along with pericardial pleural effusion that is moderate. Plan: 1. Sent for plasma protein and LDH. 2. Continue Solu-Medrol 30 mg IV every 8 hours. 3. We will continue to follow. Digitally Signed by LIAM CLARK MD on 01/07/2023 01:42 PM [facility] 01-07-2023 Note ORIGINAL HISTORY: Effusion COMPARISON: Previous day FINDINGS: There is no drainable fluid collection. Interpreted by: Blanca Gutiérrez MD Preliminary Report By: Blanca Gutiérrez MD Electronically signed By Blanca Gutiérrez MD Dictated Date: 01/07/2023 10:00:13 AM Prelim Date: 01/07/2023 10:01:06 AM Sign Date: 01/07/2023 10:01:06 AM Ordering Provider: [facility] 01-07-2023 Note ORIGINAL HISTORY: Effusion COMPARISON: Previous day FINDINGS: There is no drainable fluid collection. Interpreted by: Blanca Gutiérrez MD Preliminary Report By: Blanca Gutiérrez MD Electronically signed By Blanca Gutiérrez MD Dictated Date: 01/07/2023 10:00:13 AM Prelim Date: 01/07/2023 10:01:06 AM Sign Date: 01/07/2023 10:01:06 AM Ordering Provider: [facility] 01-07-2023 Cardiology Progress note Date of Service 01/07/23 Chief Complaint SOB HPI 57-year-old woman with past medical history of hypertension, hyperlipidemia, mild nonobstructive CAD, type 2 diabetes, active tobacco abuse, history of dizziness, rheumatoid arthritis, and history of pancreatitis was transferred from [facility] for pericardial effusion. Patient states that she presented to [facility] on Wednesday for complaints of shortness of breath. Patient was seen and discharged with p.o. antibiotics. Patient states she continued to get worsening shortness of breath so she went back to the hospital on [place] with complaints of worsening shortness of breath and pressure-like chest pain. Patient states her chest pain is worsened with deep breathing or movement. Patient states she had an x-ray, CTA of the chest, and transthoracic echocardiogram which were concerning for pericardial effusion and bilateral pleural effusions. Patient states she was transferred for further work-up to [facility]. Patient states she had a cardiac catheterization and transthoracic echocardiogram in 2021 because she has a history of dizziness, TTE was within normal limit and cardiac catheterization showed mild nonobstructive coronary artery disease. Initial vital signs here 114/72 BP, 103 heart rate, 25 respiration rate. Initial CBC showed leukocytosis and anemia. Initial BMP within normal limit. Initial chest x-ray showed bilateral pleural effusions. Pulmonology was consulted during stay for management. Patient underwent left-sided thoracentesis during stay. Patient then underwent noncontrast CT scan of the chest which showed moderate pericardial effusion, and small bilateral pleural effusions. Transthoracic echocardiogram during stay showed LVEF 60 to 65%, dilated IVC, with blunted respirophasic changes and a moderate pericardial effusion. Subjective No acute events overnight Breathing she states is now easier and her chest pressure is resolved Objective Vitals and Measurements T: 36.6 C (Oral) TMIN: 36.6 C (Oral) TMAX: 37.0 C (Oral) HR: 92 RR: 18 BP: 138/66 SpO2: 94% Intake and Output 7AM Yesterday to 7AM Today Intake and Output (Last 24 hours) Intake Oral Intake 420.00 Output Urine Voided 200.00 Urine Count 2.00 Total Summary Total Intake 420.00 Total Output 200.00 Fluid Balance 220.00 Physical Exam General: AAOX3, NAD, morbidly obese woman HEENT: Anicteric sclera, MMM Neck: Trachea midline, no JVD appreciated CVS: RRR, normal S1/S2, no murmurs/rubs/gallops Lung: Decreased breath sounds in bases bilaterally, no increased work of breathing Abd: Soft, NT/ND Extrem: WWP, no LE edema Skin: Warm, Intact Neuro: AAOX3, spontaneous movement of all extremities Psych: Appropriate mood & affect Weight Dosing Weight: 98.7 kg (01/06/23) Medications Medications (24) Active Scheduled: (13) albuterol - ipratropium 2.5 mg-0.5 mg/3 mL Inhal Jennifer UD 3 mL, Inhalation, TIDRT atorvastatin 20 mg tablet 20 mg 1 tab(s), Oral, qHS budesonide 0.5 mg/2 mL Susp UD 0.5 mg 2 mL, Inhalation, BIDRT doxycycline hyclate 100 mg Capsule 100 mg 1 cap(s), Oral, BID duloxetine [address] capsule 60 mg 1 cap(s), Oral, qHS famotidine 20 mg tablet 20 mg 1 tab(s), Oral, qDay heparin 5,000 units/mL (1 mL) vial 5,000 unit(s) 1 mL, Subcutaneous, q8h hydroxychloroquine 200 mg tablet 200 mg 1 tab(s), Oral, BID leflunomide 20 mg Tablet 20 mg 1 tab(s), Oral, qDay levothyroxine 150 mcg tablet 150 mcg 1 tab(s), Oral, qDay methylPREDNISolone succ 40mg (40 mg/1mL) after dilution 30 mg 0.75 mL, IV Push, q8h sterile water - Solution 10 mL 1 mL, Miscellaneous, q8h ubiquinone 100 mg capsule 100 mg 1 cap(s), Oral, qDay Continuous: (0) PRN: (11) albuterol 0.083% Soln UD (2.5mg/3 mL) 2.5 mg 3 mL, Inhalation, q2h ibuprofen 200 mg Tablet 200 mg 1 tab(s), Oral, q6hr magnesium sulfate 4 gram(s)/100mL PMX 4 g 100 mL, IV Piggyback, AsDirected magnesium sulfate 50% (500mg/mL) 6 g 12 mL, IV Piggyback, AsDirected magnesium sulfate PMX 2 g 50 mL, IV Piggyback, AsDirected meclizine 25 mg Tablet 25 mg 1 tab(s), Oral, TID potassium chloride (PMX) 20 mEq/100 mL 20 mEq 100 mL, IV Piggyback, AsDirected potassium chloride 20 mEq ER tablet 20 mEq 1 tab(s), Oral, AsDirected potassium chloride 20 mEq ER tablet 40 mEq 2 tab(s), Oral, AsDirected potassium chloride 20 mEq ER tablet 40 mEq 2 tab(s), Oral, AsDirected predniSONE 10 mg tablet 10 mg 1 tab(s), Oral, qDay Lab Results 01/07 04:00 WBC: 8.3 Hgb: 10.7 L Hct: 32.2 L Platelet: 245 Neutrophil %: 89.1 H Glucose Level: 200 H Sodium Level: 140 Potassium Level: 4.2 BUN: 16.0 Creatinine Lvl (s): 0.39 L 01/06 07:03 WBC: 14.0 H Hgb: 10.3 L Hct: 32.4 L Platelet: 272 Neutrophil %: 82.7 H Glucose Level: 169 H Sodium Level: 140 Potassium Level: 3.6 BUN: 22.0 Creatinine Lvl (s): 0.44 L Imaging Results and Diagnostics CT Thorax w/o Contrast Result Date: January 06, 2023 Verified By: REED CALDERA DO CLINICAL STATEMENT: IMPRESSION: Moderate pericardial effusion, measuring 1.2 cm to maximum 1.9 cm. Small bilateral pleural effusions. Left lower lobe reticular andground-glass infiltrates, likely an infectious/inflammatory process. Benign bilateral adrenal adenomas. CCU nurse Sharmila was directly informed of the pericardial effusion, pleuraleffusions, left lower lobe pneumonia at the time of the dictation. IMPORTANT PHYSICIAN INPUT NECESSARY, DO NOT FILE! XR Chest 1 View Result Date: January 06, 2023 Verified By: MELVIN MORENO DO CLINICAL STATEMENT: IMPRESSION: No visible pneumothorax post left thoracentesis. New right lower lobeatelectasis may be secondary to mucoid impaction. US Thoracentesis Left Result Date: January 06, 2023 Verified By: TAYLOR MUIR MD CLINICAL STATEMENT: IMPRESSION: Successful ultrasound guided thoracentesis This procedure was performed by Duy Liz PA-C under the directsupervision of Morgan Garland PA-C. XR Chest 1 View Result Date: January 06, 2023 Verified By: BHARATHI LEIVA MD CLINICAL STATEMENT: IMPRESSION: Small to moderate bilateral pleural effusions with adjacent airspace disease,greater on the left. Transthoracic Echocardiography Study date: 01/06/2023 Study Time: 07:56 AM Summary: 1. Left ventricle: The cavity size is normal. Wall thickness is mildly increased. Systolic function is normal. The estimated ejection fraction is 60-65%. 2. Aortic valve: Thickening, consistent with sclerosis. 3. Mitral valve: The annulus is mildly calcified. 4. Right ventricle: Systolic function is mildly to moderately reduced. 5. Inferior vena cava: The IVC is dilated. Respirophasic diameter changes are blunted (< 50%). 6. Pericardium, extracardiac: A moderate, free-flowing pericardial effusion is identified circumferential to the heart. There is no evidence of hemodynamic compromise. There is a left pleural effusion. Study data: Patient unit: CCU. Patient room number: 0353. Transthoracic echocardiography. M-mode, complete 2D, complete spectral Doppler, and color Doppler. Study status: Routine. Patient status: Inpatient. Objective: Chf. Location: Bedside. Procedure room # 353. Procedure: Transthoracic echocardiography was performed for diagnosis. Image quality was fair. The study was technically limited due to body habitus. Left ventricle: The cavity size is normal. Wall thickness is mildly increased. Systolic function is normal. The estimated ejection fraction is 60-65%. The wall mass is 179 g. The wall mass index is 85 g/m . Left atrium: The atrium is normal in size. The volume index by biplane method is 14 ml/m . Right ventricle: The cavity size is normal. Wall thickness is normal. Systolic function is mildly to moderately reduced. Right atrium: The atrium is normal in size. Mitral valve: The annulus is mildly calcified. Leaflet separation is normal. The peak E/A ratio is 0.98. The valve area (LVOT continuity) is 2.0 cm . Doppler: Transvalvular velocity is within the normal range. There is no evidence for stenosis. There is trivial regurgitation. The mean diastolic gradient is 5 mm Hg. Aortic valve: The valve is trileaflet. Thickening, consistent with sclerosis. Cusp separation is normal. The peak systolic velocity is 1.4 m/sec. The systolic velocity-time integral is 25.7 cm. The mean systolic gradient is 4 mm Hg. The LVOT to aortic valve VTI ratio is 0.69. The valve area by VTI is 2.1 cm . The valve area by peak velocity is 2.2 cm . Doppler: Transvalvular velocity is within the normal range. There is no stenosis. There is no regurgitation. Tricuspid valve: The valve is structurally normal. Leaflet separation is normal. Doppler: Transvalvular velocity is within the normal range. There is no evidence for stenosis. There is trivial regurgitation. Pulmonic valve: Not well visualized. The peak systolic velocity is 0.92 m/sec. Systemic veins: Inferior vena cava: The IVC is dilated. Respirophasic diameter changes are blunted (< 50%). Pericardium: A moderate, free-flowing pericardial effusion is identified circumferential to the heart. There is no evidence of hemodynamic compromise. There is a left pleural effusion. Normal sinus rhythm. EKG No qualifying data available. Assessment/Plan #Atypical angina #Dyspnea on exertion #Acute hypoxic respiratory failure #Moderate pericardial effusion #Bilateral pleural effusion status post left-sided thoracentesis #Atypical pneumonia? #Hypertension #Hyperlipidemia #Moderate nonobstructive CAD #Type 2 diabetes #Tobacco abuse #History of dizziness #Rheumatoid arthritis #History of pancreatitis - Latest EKG reviewed - Latest imaging reviewed Plan: - F/U bilateral thoracentesis - Ordered limited transthoracic echocardiogram for tomorrow to follow-up on pericardial effusion - Daily weight, strict I+Os - Monitor & replace electrolytes as needed, goal K >4 mEq/L, Mg >2 mg/dL - Holding amlodipine 10 mg daily - Holding losartan 100 mg daily - Started IV Lasix 20 mg BID - Continue Atorvastatin 20 mg daily - Continue all other medications as prescribed - Consulted Pulmonology, appreciate recommendations Patient seen and discussed with Dr. Kathie Rodriguez II, MD PGY-V Cardiovascular Disease Fellow Pager: [phone] Digitally Signed by BONITA RODRIGUEZ MD on 01/07/2023 12:13 PM [facility] 01-07-2023 Note ORIGINAL EXAMINATION: CT OF THE CHEST WITHOUT CONTRAST 01/06/2023 2:04 pm TECHNIQUE: CT of the chest was performed without the administration of intravenous contrast. Multiplanar reformatted images are provided for review. Automated exposure control, iterative reconstruction, and/or weight based adjustment of the mA/kV was utilized to reduce the radiation dose to as low as reasonably achievable. COMPARISON: Chest x-ray 01/06/2023, CT chest 03/10/2018 HISTORY: ORDERING SYSTEM PROVIDED HISTORY: Reason for Exam: pleural effusion FINDINGS: There is a moderate pericardial effusion, measuring 1.2 cm to maximum 1.9 cm. There are small bilateral pleural effusions with adjacent atelectatic changes. Additional reticular and ground-glass opacities are noted in the left lower lobe. There are multiple aortopulmonary and pre-vascular lymph nodes measuring up to 1 cm, somewhat increased in number, which could represent reactive nodes. No pneumothorax is seen. Atherosclerotic aortic and coronary calcifications are noted. There are multiple chronic compression deformities in the thoracolumbar region with hyperkyphosis and scoliosis, not significantly changed. Low-attenuation nodules in the bilateral adrenal glands are compatible with adenomas. A 3.8 cm partially visualized right renal cyst is noted. IMPRESSION: Moderate pericardial effusion, measuring 1.2 cm to maximum 1.9 cm. Small bilateral pleural effusions. Left lower lobe reticular and ground-glass infiltrates, likely an infectious/inflammatory process. Benign bilateral adrenal adenomas. CCU nurse Sharmila was directly informed of the pericardial effusion, pleural effusions, left lower lobe pneumonia at the time of the dictation. IMPORTANT PHYSICIAN INPUT NECESSARY, DO NOT FILE! Interpreted by: Reed Caldera DO Preliminary Report By: Reed Caldera DO Electronically signed By Reed Caldera DO Dictated Date: 01/06/2023 11:54:04 PM Prelim Date: 01/07/2023 12:15:42 AM Sign Date: 01/07/2023 12:15:42 AM Ordering Provider: WINIFRED PÉREZ [facility] 01-06-2023 History and physical note Date of Service 01/06/23 Chief Complaint SOB History of Present Illness 57-year-old woman with past medical history of hypertension, hyperlipidemia, mild nonobstructive CAD, type 2 diabetes, active tobacco abuse, history of dizziness, rheumatoid arthritis, and history of pancreatitis was transferred from [facility] for pericardial effusion. Patient states that she presented to [facility] on Wednesday for complaints of shortness of breath. Patient was seen and discharged with p.o. antibiotics. Patient states she continued to get worsening shortness of breath so she went back to the hospital on Wednesday with complaints of worsening shortness of breath and pressure-like chest pain. Patient states her chest pain is worsened with deep breathing or movement. Patient states she had an x-ray, CTA of the chest, and transthoracic echocardiogram which were concerning for pericardial effusion and bilateral pleural effusions. Patient states she was transferred for further work-up to [facility]. Patient states she had a cardiac catheterization and transthoracic echocardiogram in 2021 because she has a history of dizziness, TTE was within normal limit and cardiac catheterization showed mild nonobstructive coronary artery disease. Initial vital signs here 114/72 BP, 103 heart rate, 25 respiration rate. Initial CBC showed leukocytosis and anemia. Initial BMP within normal limit. 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 Allergies: As documented in chart Review of Systems Per HPI, Complete ROS otherwise negative Physical Exam Vitals and Measurements T: 36.5 C (Oral) HR: 103(Monitored) RR: 25 BP: 114/72 SpO2: 94% HT: 160 cm WT: 98.7 kg BMI: 38.55 Weight Dosing Weight: 98.7 kg (01/06/23) General: AAOX3, mild distress, morbidly obese woman HEENT: Anicteric sclera, MMM Neck: Trachea midline, no JVD appreciated CVS: RRR, normal S1/S2, no murmurs/rubs/gallops Lung: Decreased breath sounds in bases bilaterally, increased work of breathing Abd: Soft, NT/ND Extrem: WWP, no LE edema Skin: Warm, Intact Neuro: AAOX3, spontaneous movement of all extremities Psych: Appropriate mood & affect Lab Results 01/06 07:03 WBC: 14.0 H Hgb: 10.3 L Hct: 32.4 L Platelet: 272 Neutrophil %: 82.7 H Glucose Level: 169 H Sodium Level: 140 Potassium Level: 3.6 BUN: 22.0 Creatinine Lvl (s): 0.44 L Assessment/Plan #Atypical angina #Dyspnea on exertion #Acute hypoxic respiratory failure #Pericardial effusion #Bilateral pleural effusion #Atypical pneumonia #Hypertension #Hyperlipidemia #Moderate nonobstructive CAD #Type 2 diabetes #Tobacco abuse #History of dizziness #Rheumatoid arthritis #History of pancreatitis - Latest EKG reviewed - Latest imaging reviewed Plan: - Ordered TTE - Ordered CXR - Ordered bilateral thoracentesis - Daily weight, strict I+Os - Monitor & replace electrolytes as needed, goal K >4 mEq/L, Mg >2 mg/dL - Holding amlodipine 10 mg daily - Holding losartan 100 mg daily - Continue atorvastatin 20 mg daily - Continue all other medications as prescribed - Consulted Pulmonology, appreciate recommendations Patient seen and discussed with Dr. Kathie Rodriguez II, MD PGY-V Cardiovascular Disease Fellow Pager: [phone] Problem List/Past Medical History Ongoing Arthritis H/O acute pancreatitis Hypertension Historical No qualifying data Procedure/Surgical History Cholecystectomy Appendicitis Medications Home Medications (15) Active albuterol MDI (90 mcg/inh) CFC free inhalation aerosol 1 puff(s), PRN, Inhalation, q2h amLODIPine 10 mg, Oral, qDay atorvastatin 20 mg oral tablet 20 mg = 1 tab(s), Oral, qHS Coenzyme Q10 100 mg, Oral, qDay doxycycline 100 mg, Oral, BID DULoxetine 30 mg oral delayed release capsule 60 mg = 2 cap(s), Oral, qHS famotidine 20 mg oral tablet 20 mg = 1 tab(s), Oral, qDay hydroxychloroquine 200 mg oral tablet 200 mg = 1 tab(s), Oral, BID ibuprofen 200 mg, PRN, Oral, q6hr leflunomide 20 mg oral tablet 20 mg = 1 tab(s), Oral, qDay levothyroxine 150 mcg, Oral, qDay losartan 100 mg oral tablet 100 mg = 1 tab(s), Oral, qDay meclizine 25 mg oral tablet 25 mg = 1 tab(s), PRN, Oral, TID MetFORMIN (Eqv-Fortamet) 1,000 mg, Oral, BID predniSONE 10 mg, PRN, Oral, qDay Allergies Bactrim sulfa drug Social History Smoking Status - 03/16/2018 Current every day smoker Alcohol Use: Past. Frequency: 1-2 times per month., 01/06/2023 Type: Liquor., 03/11/2018 Substance Abuse - Denies Substance Abuse, 03/10/2018 Tobacco Nicotine Use: 10 or more cigarettes (1/2 pack or more)/day in last 30 days. Type: Cigarettes., 01/06/2023 Family History Breast cancer: Sister. Cancer: Father. Cancer: Father and Sister. Diabetes mellitus: Sister. Heart attack: Mother. Heart disease: Sister. Hypertension: Sister. Stroke: Sister. Immunizations No qualifying data available. Code Status Code Status - Ordered -- 01/06/23 6:37:00 EDT, Full Code, Constant Order Digitally Signed by BONITA RODRIGUEZ MD on 01/06/2023 09:58 AM [facility] 01-06-2023 Note ORIGINAL PROCEDURE: ULTRASOUND GUIDED THORACENTESIS CLINICAL STATEMENT: Pleural effusion LATERALITY: Left FLUID REMOVED: 600 cc FLUID COLOR: Yellow serous DISPOSITION OF FLUID: Sent to lab CATHETER/NEEDLE: 5 Fr centesis catheter needle The procedure, risks, limitations, and alternatives were discussed. All questions were answered. Written informed consent obtained. Accompanying paperwork was verified for accuracy. Directed history and physical exam performed prior to the procedure. Medication reconciliation was performed by nursing personnel. Procedure was performed using a cap, sterile gloves, a sterile sheet, sterile probe cover and sterile gel, hand hygiene and hospital-approved cutaneous antisepsis. Ultrasound survey demonstrates pleural effusion. 2% lidocaine was administered at the puncture site for local anesthesia. The centesis catheter needle was advanced into the effusion under real-time sonographic guidance. After removal of the needle, the catheter was attached to vacuum bottles and 600 mL yellow serous fluid was removed. The catheter was removed once no additional fluid could be removed and a dressing applied. Postprocedure images obtained. The procedure was discontinued prior to complete evacuation of the pleural space due to patient discomfort and requested discontinued procedure. No complication suggested. Chest discomfort was felt to reflect lung re-expansion. COMPLICATIONS: None EBL: None PATIENT CONDITION: Stable, unchanged. IMPRESSION: Successful ultrasound guided thoracentesis This procedure was performed by Duy Liz PA-C under the direct supervision of Morgan Garland PA-C. Interpreted by: Taylor Muir MD Preliminary Report By: Duy Liz Electronically signed By Taylor Muir MD Dictated Date: 01/06/2023 12:03:02 PM Prelim Date: 01/06/2023 12:04:25 PM Sign Date: 01/06/2023 3:23:52 PM Ordering Provider: [facility] ([place]) 01-06-2023 Note ORIGINAL PROCEDURE: ULTRASOUND GUIDED THORACENTESIS CLINICAL STATEMENT: Pleural effusion LATERALITY: Left FLUID REMOVED: 600 cc FLUID COLOR: Yellow serous DISPOSITION OF FLUID: Sent to lab CATHETER/NEEDLE: 5 Fr centesis catheter needle The procedure, risks, limitations, and alternatives were discussed. All questions were answered. Written informed consent obtained. Accompanying paperwork was verified for accuracy. Directed history and physical exam performed prior to the procedure. Medication reconciliation was performed by nursing personnel. Procedure was performed using a cap, sterile gloves, a sterile sheet, sterile probe cover and sterile gel, hand hygiene and hospital-approved cutaneous antisepsis. Ultrasound survey demonstrates pleural effusion. 2% lidocaine was administered at the puncture site for local anesthesia. The centesis catheter needle was advanced into the effusion under real-time sonographic guidance. After removal of the needle, the catheter was attached to vacuum bottles and 600 mL yellow serous fluid was removed. The catheter was removed once no additional fluid could be removed and a dressing applied. Postprocedure images obtained. The procedure was discontinued prior to complete evacuation of the pleural space due to patient discomfort and requested discontinued procedure. No complication suggested. Chest discomfort was felt to reflect lung re-expansion. COMPLICATIONS: None EBL: None PATIENT CONDITION: Stable, unchanged. IMPRESSION: Successful ultrasound guided thoracentesis This procedure was performed by Duy Liz PA-C under the direct supervision of Morgan Garland PA-C. Interpreted by: Taylor Muir MD Preliminary Report By: Duy Liz Electronically signed By Taylor Muir MD Dictated Date: 01/06/2023 12:03:02 PM Prelim Date: 01/06/2023 12:04:25 PM Sign Date: 01/06/2023 3:23:52 PM Ordering Provider: [facility] 01-06-2023 Note ORIGINAL EXAMINATION: CT OF THE CHEST WITHOUT CONTRAST 01/06/2023 2:04 pm TECHNIQUE: CT of the chest was performed without the administration of intravenous contrast. Multiplanar reformatted images are provided for review. Automated exposure control, iterative reconstruction, and/or weight based adjustment of the mA/kV was utilized to reduce the radiation dose to as low as reasonably achievable. COMPARISON: Chest x-ray 01/06/2023, CT chest 03/10/2018 HISTORY: ORDERING SYSTEM PROVIDED HISTORY: Reason for Exam: pleural effusion FINDINGS: There is a moderate pericardial effusion, measuring 1.2 cm to maximum 1.9 cm. There are small bilateral pleural effusions with adjacent atelectatic changes. Additional reticular and ground-glass opacities are noted in the left lower lobe. There are multiple aortopulmonary and pre-vascular lymph nodes measuring up to 1 cm, somewhat increased in number, which could represent reactive nodes. No pneumothorax is seen. Atherosclerotic aortic and coronary calcifications are noted. There are multiple chronic compression deformities in the thoracolumbar region with hyperkyphosis and scoliosis, not significantly changed. Low-attenuation nodules in the bilateral adrenal glands are compatible with adenomas. A 3.8 cm partially visualized right renal cyst is noted. IMPRESSION: Moderate pericardial effusion, measuring 1.2 cm to maximum 1.9 cm. Small bilateral pleural effusions. Left lower lobe reticular and ground-glass infiltrates, likely an infectious/inflammatory process. Benign bilateral adrenal adenomas. CCU nurse Sharmila was directly informed of the pericardial effusion, pleural effusions, left lower lobe pneumonia at the time of the dictation. IMPORTANT PHYSICIAN INPUT NECESSARY, DO NOT FILE! Interpreted by: Reed Caledra DO Preliminary Report By: Reed Caldera DO Electronically signed By Reed Caldera DO Dictated Date: 01/06/2023 11:54:04 PM Prelim Date: 01/07/2023 12:15:42 AM Sign Date: 01/07/2023 12:15:42 AM Ordering Provider: [facility] #Atypical angina #Dyspnea on exertion #Acute hypoxic respiratory failure #Pericardial effusion #Bilateral pleural effusion #Atypical pneumonia #Hypertension #Hyperlipidemia #Moderate nonobstructive CAD #Type 2 diabetes #Tobacco abuse #History of dizziness #Rheumatoid arthritis #History of pancreatitis - Latest EKG reviewed - Latest imaging reviewed Plan: - Ordered TTE - Ordered CXR - Ordered bilateral thoracentesis - Daily weight, strict I+Os - Monitor & replace electrolytes as needed, goal K >4 mEq/L, Mg >2 mg/dL - Holding amlodipine 10 mg daily - Holding losartan 100 mg daily - Continue atorvastatin 20 mg daily - Continue all other medications as prescribed - Consulted Pulmonology, appreciate recommendations Patient seen and discussed with Dr. Kathie Rodriguez II, MD PGY-V Cardiovascular Disease Fellow Pager: [phone] Addendum by RAUL FULLER MD on January 06, 2023 23:12:44 EDT I have personally seen, examined, and evaluated the patient on the encounter date. I have reviewed the fellow s documentation and agree with the fellow s findings and plan as documented, unless otherwise stated. Diagnostic Tests Pending * Culture Body Fluid with Gram Stain 01/06/23 * Cell Count Body Fluid 01/06/23 * Glucose Body Fluid - Panel 01/06/23 * Protein Body Fluid 01/06/23 * LDH Body Fluid - Panel 01/06/23 * Amylase Body Fluid 01/06/23 * pH Body Fluid 01/06/23 [facility] 07-12-2023 Respiratory therapy Hospital Progress note Respiratory Therapy Evaluation Entered On: 01/06/2023 13:34 EDT Performed On: 01/06/2023 13:33 EDT by GÓMEZ Valle Respiratory Therapy Evaluation Pulmonary Status : Smoking history >20 pack years Surgical Status : No surgeries Chest X-Ray : Infiltrates, atelectasis, pleural effusion Breath Sounds (RT) : Wheezes Respiratory Pattern (RT) : Regular RR=12-20 Cough (RT) : Strong, non-productive Respiratory Therapy Evaluation Score : 8 Level of Activity : Ambulatory Mental Status : Alert, oriented Respiratory Evaluation Triage Score : 4 - (6-10) Freq: TIDRT & Albuterol Q2hRT prn RT Assessment [Frequency/Schedule] : no changes GÓMEZ Valle - 01/06/2023 13:33 EDT Digitally Signed by GÓMEZ Valle on 01/06/2023 01:33 PM [id number] Note ORIGINAL EXAMINATION: ONE XRAY VIEW OF THE CHEST 01/06/2023 11:47 am COMPARISON: Same day chest radiograph, earlier HISTORY: ORDERING SYSTEM PROVIDED HISTORY: Reason for Exam: Post left thoracentesis FINDINGS: Similar cardiomediastinal contours given left patient rotation, portable technique, and hypoventilation. Right lower lobe atelectasis. No visible pneumothorax. Small left pleural effusion has decreased. Similar small right pleural effusion. IMPRESSION: No visible pneumothorax post left thoracentesis. New right lower lobe atelectasis may be secondary to mucoid impaction. Interpreted by: Melvin Moreno DO Preliminary Report By: Melvin Moreno DO Electronically signed By Melvin Moreno DO Dictated Date: 01/06/2023 12:18:00 PM Prelim Date: 01/06/2023 12:20:37 PM Sign Date: 01/06/2023 12:20:37 PM Ordering Provider: DUY LIZ [id number] Note ORIGINAL EXAMINATION: ONE XRAY VIEW OF THE CHEST01/06/2023 7:14 am CHEST ONE VIEW AP/PA COMPARISON: 11/27/2020 HISTORY: ORDERING SYSTEM PROVIDED HISTORY: Reason for Exam: Chest Pain FINDINGS: The cardiomediastinal contours are normal. The previous is seen large hiatal hernia is not seen on today's exam. There are low lung volumes with hypoventilatory changes. There are small to moderate bilateral pleural effusions with adjacent airspace disease, greater on the left. No pneumothorax. No acute osseous abnormality. IMPRESSION: Small to moderate bilateral pleural effusions with adjacent airspace disease, greater on the left. Interpreted by: Bharathi Leiva MD Preliminary Report By: Bharathi Leiva MD Electronically signed By Bharathi Leiva MD Dictated Date: 01/06/2023 12:13:44 PM Prelim Date: 01/06/2023 12:15:56 PM Sign Date: 01/06/2023 12:15:56 PM [id number] Pulmonary Consult note Date of Service 01/06/2023 Reason for Consultation Pleural effusions Referring Physician Dr. Yeboah History of Present Illness 57-year-old woman with past medical history of hypertension, hyperlipidemia, CAD, type 2 diabetes, active tobacco abuse, history of dizziness, rheumatoid arthritis, and history of pancreatitis was transferred from [facility] for pericardial effusion. Patient states that she presented to [facility] on Wednesday for complaints of shortness of breath. Patient was seen and discharged with p.o. antibiotics. Patient states she continued to get worsening shortness of breath so she went back to the hospital on Wednesday with complaints of worsening shortness of breath and pressure-like chest pain. Patient states her chest pain is worsened with deep breathing or movement. Patient states she had an x-ray, CTA of the chest, and transthoracic echocardiogram which were concerning for pericardial effusion and bilateral pleural effusions. She was transferred for further work-up to [facility]. When I saw her this morning she continues to be significantly short of breath she is sitting up in the chair feels miserable Review of Systems Negative except as detailed in HPI Physical Exam Vitals and Measurements T: 37.0 C (Oral) TMIN: 36.5 C (Oral) TMAX: 37.0 C (Oral) HR: 97(Monitored) RR: 22 BP: 124/65 SpO2: 93% HT: 160 cm WT: 98.7 kg BMI: 38.55 Weight Dosing Weight: 98.7 kg (01/06/23) General: Alert oriented x3 respiratory discomfort. Sitting up in a chair. HEENT: PERRLA EOMI Neck: Trachea midline, no JVD appreciated CVS: RRR, normal S1/S2, no murmurs/rubs/gallops Lung: Decreased breath sounds in bases bilaterally, worse on the left wheezing at end of exhalationin the apices Abd: Obese soft nontender patient has an element of scoliosis. Extrem: No edema Skin: Warm, Intact Neuro: AAOX3, spontaneous movement of all extremities Psych: Appropriate mood & affect Lab Results 01/06 07:03 WBC: 14.0 H Hgb: 10.3 L Hct: 32.4 L Platelet: 272 Neutrophil %: 82.7 H Glucose Level: 169 H Sodium Level: 140 Potassium Level: 3.6 BUN: 22.0 Creatinine Lvl (s): 0.44 L Assessment/Plan 1. Bilateral pleural effusions worse on the left the differential includes pleural fluid secondary to rheumatoid arthritis. It appears that there is thickening of the lung with possible lung entrapment 2. Acute hypoxic respiratory failure secondary to above 3. Pericardial effusion again this could be related to an element of serositis 4. Element of hyperinflation on the patient's chest x-ray Plan: 1. proceed with ultrasound-guided bilateral thoracentesis start on the left side first. Send the fluid for LDH, protein, glucose in addition to cultures. 2. Repeat CT of the chest after pleural effusion is is drained to rule out trapped lung 3. I suspect the patient has undiagnosed COPD we will start budesonide twice daily DuoNebs 3 times daily 4. Given the noted wheezing and addition to the concern for a serositis start patient on steroids Discussed with cardiology team Dr. Fuller Problem List/Past Medical History Ongoing Arthritis H/O acute pancreatitis Hypertension Historical No qualifying data Procedure/Surgical History Cholecystectomy Appendicitis Medications Inpatient albuterol, 2.5 mg= 3 mL, Inhalation, q2h, PRN atorvastatin, 20 mg= 1 tab(s), Oral, qHS Coenzyme Q10, 100 mg= 1 cap(s), Oral, qDay doxycycline, 100 mg= 1 cap(s), Oral, BID DULoxetine, 60 mg= 1 cap(s), Oral, qHS famotidine, 20 mg= 1 tab(s), Oral, qDay hydroxychloroquine, 200 mg= 1 tab(s), Oral, BID ibuprofen, 200 mg= 1 tab(s), Oral, q6hr, PRN leflunomide, 20 mg= 1 tab(s), Oral, qDay levothyroxine, 150 mcg= 1 tab(s), Oral, qDay magnesium sulfate for IV bolus, 2 gram(s)= 50 mL, IV Piggyback, AsDirected, PRN magnesium sulfate for IV bolus, 4 gram(s)= 100 mL, IV Piggyback, AsDirected, PRN magnesium sulfate for IV bolus meclizine, 25 mg= 1 tab(s), Oral, TID, PRN potassium chloride, 20 mEq= 1 tab(s), Oral, AsDirected, PRN potassium chloride, 40 mEq= 2 tab(s), Oral, AsDirected, PRN potassium chloride, 40 mEq= 2 tab(s), Oral, AsDirected, PRN potassium chloride bolus, 20 mEq= 100 mL, IV Piggyback, AsDirected, PRN predniSONE, 10 mg= 1 tab(s), Oral, qDay, PRN Home albuterol MDI (90 mcg/inh) CFC free inhalation aerosol, 1 puff(s), Inhalation, q2h, PRN amLODIPine, 10 mg, Oral, qDay atorvastatin 20 mg oral tablet, 20 mg= 1 tab(s), Oral, qHS Coenzyme Q10, 100 mg, Oral, qDay doxycycline, 100 mg, Oral, BID DULoxetine 30 mg oral delayed release capsule, 60 mg= 2 cap(s), Oral, qHS famotidine 20 mg oral tablet, 20 mg= 1 tab(s), Oral, qDay hydroxychloroquine 200 mg oral tablet, 200 mg= 1 tab(s), Oral, BID ibuprofen, 200 mg, Oral, q6hr, PRN leflunomide 20 mg oral tablet, 20 mg= 1 tab(s), Oral, qDay levothyroxine, 150 mcg, Oral, qDay losartan 100 mg oral tablet, 100 mg= 1 tab(s), Oral, qDay meclizine 25 mg oral tablet, 25 mg= 1 tab(s), Oral, TID, PRN MetFORMIN (Eqv-Fortamet), 1000 mg, Oral, BID predniSONE, 10 mg, Oral, qDay, PRN Allergies Bactrim sulfa drug Social History Smoking Status - 03/16/2018 Current every day smoker Alcohol Use: Past. Frequency: 1-2 times per month., 01/06/2023 Type: Liquor., 03/11/2018 Substance Abuse - Denies Substance Abuse, 03/10/2018 Tobacco Nicotine Use: 10 or more cigarettes (1/2 pack or more)/day in last 30 days. Type: Cigarettes., 01/06/2023 Family History Breast cancer: Sister. Cancer: Father and Sister. Cancer: Father. Diabetes mellitus: Sister. Heart attack: Mother. Heart disease: Sister. Hypertension: Sister. Stroke: Sister. Immunizations No qualifying data available. Digitally Signed by WINIFRED CUMMINS MD on 01/06/2023 12:14 PM Digitally Signed by WINIFRED CUMMINS MD on 01/06/2023 12:15 PM [id number] Note ORIGINAL EXAMINATION: ONE XRAY VIEW OF THE CHEST 01/06/2023 11:47 am COMPARISON: Same day chest radiograph, earlier HISTORY: ORDERING SYSTEM PROVIDED HISTORY: Reason for Exam: Post left thoracentesis FINDINGS: Similar cardiomediastinal contours given left patient rotation, portable technique, and hypoventilation. Right lower lobe atelectasis. No visible pneumothorax. Small left pleural effusion has decreased. Similar small right pleural effusion. IMPRESSION: No visible pneumothorax post left thoracentesis. New right lower lobe atelectasis may be secondary to mucoid impaction. Interpreted by: Melvin Moreno DO Preliminary Report By: Melvin Moreno DO Electronically signed By Melvin Moreno DO Dictated Date: 01/06/2023 12:18:00 PM Prelim Date: 01/06/2023 12:20:37 PM Sign Date: 01/06/2023 12:20:37 PM Ordering Provider: [facility]07-12-2023 Note ORIGINAL PROCEDURE: ULTRASOUND GUIDED THORACENTESIS CLINICAL STATEMENT: Pleural effusion LATERALITY: Left FLUID REMOVED: 600 cc FLUID COLOR: Yellow serous DISPOSITION OF FLUID: Sent to lab CATHETER/NEEDLE: 5 Fr centesis catheter needle The procedure, risks, limitations, and alternatives were discussed. All questions were answered. Written informed consent obtained. Accompanying paperwork was verified for accuracy. Directed history and physical exam performed prior to the procedure. Medication reconciliation was performed by nursing personnel. Procedure was performed using a cap, sterile gloves, a sterile sheet, sterile probe cover and sterile gel, hand hygiene and hospital-approved cutaneous antisepsis. Ultrasound survey demonstrates pleural effusion. 2% lidocaine was administered at the puncture site for local anesthesia. The centesis catheter needle was advanced into the effusion under real-time sonographic guidance. After removal of the needle, the catheter was attached to vacuum bottles and 600 mL yellow serous fluid was removed. The catheter was removed once no additional fluid could be removed and a dressing applied. Postprocedure images obtained. The procedure was discontinued prior to complete evacuation of the pleural space due to patient discomfort and requested discontinued procedure. No complication suggested. Chest discomfort was felt to reflect lung re-expansion. COMPLICATIONS: None EBL: None PATIENT CONDITION: Stable, unchanged. IMPRESSION: Successful ultrasound guided thoracentesis This procedure was performed by Duy Liz PA-C under the direct supervision of Morgan Garland PA-C. Interpreted by: Taylor Muir MD Preliminary Report By: Duy Liz Electronically signed By Talyor Muir MD Dictated Date: 01/06/2023 12:03:02 PM Prelim Date: 01/06/2023 12:04:25 PM Sign Date: 01/06/2023 3:23:52 PM Ordering Provider: [facility]07-12-2023 Note US Procedure Record Summary Primary Physician: MORGAN GARLAND PA-C Finalized Date/Time: 01/06/23 11:37:34 Pt. Name: CAITLIN OSBORNE/Sex: 1965 Female Med Rec #: [id number] Physician: ARIANA YEBOAH MD Financial #: [id number] Pt. Type: I Room/Bed: 0353/A Admit/Disch: 01/06/23 05:42:07 - Institution: Allergies identified in patient's electronic medical record at time of printing on 01/06/23 Entry 1 Entry 2 Substance Bactrim sulfa drug Reaction Type Allergy Allergy Last Modified By: Mayte Morgan RN, Sharon L RN 03/10/18 20:32:12 03/10/18 20:33:49 Case Attendance- US Entry 1 Entry 2 Entry 3 Case Attendee GARLAND, MORGANDUY NAVARRO PA-C, PA-C, Lauren M Role Performed Primary Surgeon Radiology PA/RA Farm Advisor Details Time In 01/06/23 11:18:00 01/06/23 11:17:00 01/06/23 11:20:00 Time Out 01/06/23 11:26:00 01/06/23 11:26:00 01/06/23 11:22:00 Procedure/Preference US Thoracentesis Left US Thoracentesis Left US Thoracentesis Left Card (SN) (SN) (SN) Last Modified By: Skye Adames Lauren M Clark, Lauren M 01/06/23 11:27:00 01/06/23 11:27:00 01/06/23 11:27:00 Entry 4 Case Attendee SURYA Bonner Role Performed Farm Advisor Details Time In 01/06/23 11:23:00 Time Out 01/06/23 11:26:00 Procedure/Preference US Thoracentesis Left Card (SN) Last Modified By: Skye Adames 01/06/23 11:27:00 Radiology Procedures- US Entry 1 Procedure/Preference US Thoracentesis Left Actual Procedure US THORACENTESIS LEFT Card (SN) Primary Procedure Yes Primary Surgeon MORGAN GARLAND PA-C Anesthesia/Sedation Local Type Additional Procedure Times Start 01/06/23 11:20:00 Stop 01/06/23 11:26:00 Specialty Service SN Radiology Procedure EBL 0 mL Last Modified By: Skye Adames 01/06/23 11:27:05 Cultures and Specimens- US Entry 1 Kind Specimen Type Fluid Last Modified By: Skye Adames 01/06/23 11:20:57 General Case Data- US Entry 1 Case Information Room [facility] Receiving Case Level None Wound Class None Specialty SN Radiology Procedure ASA Class None Diagnosis Preop Diagnosis pleural eff Postop Same As Preop Yes Postop Diagnosis pleural eff Last Modified By: Skye Adames 01/06/23 11:21:26 Medication Administration- US Entry 1 Medication 2% Lidocaine Route of Admin Local Dose 10 VORB Administered by Yes Administered by: DUY LIZ PA-C Physician? Last Modified By: Skye Adames 01/06/23 11:20:43 Case Times- US Entry 1 Patient In Procedure Patient In OR 01/06/23 11:20:00 Patient Out of OR 01/06/23 11:26:00 Procedure Start/Stop Procedure Start Time 01/06/23 11:20:00 Procedure Stop Time 01/06/23 11:26:00 Last Modified By: Skye Adames 01/06/23 11:26:56 Immediate Post Procedure Note- US Entry 1 Immediate Post Yes Procedure Note displayed for Physician to review Closure Technique Closure Technique Other than Primary Last Modified By: Skye Adames 01/06/23 11:25:11 Immediate Post Procedure Note- US Signed By: DUY LIZ PA-C 01/06/23 11:33 Allergy Information- US Entry 1 Allergies Reviewed? Yes Allergies Reviewed Medical Record With Last Modified By: Skye Adames 01/06/23 11:18:31 Radiology Protocols/Time Out- US Entry 1 Preprocedure Clinician Verifies Correct patient ID When Clinically Confirmation of correct using name & date Indicated side(s) and site(s), or MRN, Accurate Correct diagnostic and procedure, complete radiology tests Informed Consent, H & P available update immediately prior to procedure, if applicable, Sync button on OR/Procedure Room/Bedside Time 01/06/23 11:20:00 Clinician Verifies Correct patient identity including EMR & records using name and date or medical record number, Accurate procedure consent form, Correct patient position, Necessary equipment is available When Applicable Confirmation correct side and site marked, Relevant images and results are properly labeled and appropriately displayed, Confirm/obtain preop antibiotic order., Alcohol based prep dry, Double verification of sterility indicators complete Instrument Sterility Procedure US Thoracentesis Left (SN) Last Modified By: Skye Adames 01/06/23 11:20:32 Skin Prep - US Entry 1 Procedure US Thoracentesis Left (SN) Skin Prep Prep Area Back Side Left By DUY LIZ PA-C Prep Agents Chloraprep Hair Removal Method N/A Last Modified By: Skye Adames 01/06/23 11:20:50 Patient Positioning- US Entry 1 Procedure US Thoracentesis Left Body Position Upright (SN) Feet Uncrossed? Yes Pressure Points Yes Checked Last Modified By: Skye Adames 01/06/23 11:20:53 Communications- US Entry 1 Event Report Given to Floor Nurse Last Modified By: Skye Adames 01/06/23 11:21:01 Radiology Procedure Plan - US Entry 1 Radiology - Nursing Care Plan Radiology - Action Plan Action Plan - Patient demonstrates Outcome Statement knowledge of the expected reseponses to the invasive procedure, Patient's value system, lifestyle, ethnicity, and culture are considered, respected, and incorporated in the perioperative plan of care., Patient is free from signs and symptoms of infection., Patient is free from signs and symptoms of injury related to positioning., Patient receives appropriate medication(s), safely administered during the perioperative period., Patient is free from signs and symptoms of injury caused by extraneous objects (equipment, instrumentation, sponges, or sharps). Outcomes Met? Yes Psychiatric Technician Assistant Skye Adames Completing Procedure Plan Last Modified By: Skye Adames 01/06/23 11:21:14 Radiology Lines and Procedures- US Entry 1 Radiology Sedation Case Times Sedation Total Time 0 Radiology - Fluid/Drainage RAD - US [place], Guidewires, Cath.... Catheters M-Drain Centesis Miscellaneous Items Merit Tray Catheter 5 Fr x 7 cm Radiology Urinary Catheter Radiology Procedure Site Site Condition No complications Dressing Type Bandaids Last Modified By: Skye Adames 01/06/23 11:22:36 Transfer Post Procedure- US Entry 1 RAD - Transport to Recovery Patient Transported IV Via Patient Bed With Post-op Destination Patient Room Post Procedure Time Out Double Verification Yes Date/Time Verified 01/06/23 11:25:00 of ID band on patient Completed Verfied ID Band on MORGAN GARLAND by Kailey HERNANDEZ TECH Valerie A Last Modified By: Skye Adames 01/06/23 11:25:37 Case Comments Finalized By: Skye Adames Document Signatures Signed By: Skye Adames 01/06/23 11:37 [id number] Procedure note IR Brief Post Procedure Note Preprocedure Dx: Left Pleural Effusion PERICARDIAL EFFUSION, CHF Post Procedure Dx: Same Procedure: 1. Ultrasound Guided Left Thoracentesis Supervisor Screen Making: Duy Liz PA-C [employer] Technician: None Anesthesia: Local EBL: Minimal Complications: No immediate complications suspected Status: Stable Findings: 1. 600 mL yellow serous fluid drained from left pleural space. 2. Patient tolerated the procedure well with minimal discomfort. Plan: 1. CXR 2. Fluid sent to lab. Full report to follow. Orders in [employer]. Duy Liz PA-C Interventional Radiology US Dept [id number] Available on cortext Digitally Signed by DUY LIZ PA-C on 01/06/2023 11:36 AM [id number] History and physical note Date of Service 01/06/23 Chief Complaint SOB History of Present Illness 57-year-old woman with past medical history of hypertension, hyperlipidemia, mild nonobstructive CAD, type 2 diabetes, active tobacco abuse, history of dizziness, rheumatoid arthritis, and history ofpancreatitis was transferred from [facility] for pericardial effusion. Patient states that she presented to [facility] on Wednesday for complaints of shortness of breath. Patient was seen and discharged with p.o. antibiotics. Patient states she continued to get worsening shortness of breath so she went back to the hospital on Wednesday with complaints of worsening shortness of breath and pressure-like chest pain. Patient states her chest pain is worsened with deep breathing or movement. P atient states she had an x-ray, CTA of the chest, and transthoracic echocardiogram which were concerning for pericardial effusion and bilateral pleural effusions. Patient states she was transferred for further work-up to [facility]. Patient states she had a cardiac catheterization and transth oracic echocardiogram in 2021 because she has a history of dizziness, TTE was within normal limit and cardiac catheterization showed mild nonobstructive coronary artery disease. Initial vital signs here 114/72 BP, 103 heart rate, 25 respiration rate. Initial CBC showed leukocytosis and anemia. Initial BMP within normal limit. 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 Allergies: As documented in chart Review of Systems Per HPI, Complete ROS otherwise negative Physical Exam Vitals and Measurements T: 36.5 C (Oral) HR: 103(Monitored) RR: 25 BP: 114/72 SpO2: 94% HT: 160 cm WT: 98.7 kg BMI: 38.55 Weight Dosing Weight: 98.7 kg (01/06/23) General: AAOX3, mild distress, morbidly obese woman HEENT: Anicteric sclera, MMM Neck: Trachea midline, no JVD appreciated CVS: RRR, normal S1/S2, no murmurs/rubs/gallops Lung: Decreased breath sounds in bases bilaterally, increased work of breathing Abd: Soft, NT/ND Extrem: WWP, no LE edema Skin: Warm, Intact Neuro: AAOX3, spontaneous movement of all extremities Psych: Appropriate mood & affect Lab Results 01/06 07:03 WBC: 14.0 H Hgb: 10.3 L Hct: 32.4 L Platelet: 272 Neutrophil %: 82.7 H Glucose Level: 169 H Sodium Level: 140 Potassium Level: 3.6 BUN: 22.0 Creatinine Lvl (s): 0.44 L Assessment/Plan #Atypical angina #Dyspnea on exertion #Acute hypoxic respiratory failure #Pericardial effusion #Bilateral pleural effusion #Atypical pneumonia #Hypertension #Hyperlipidemia #Moderate nonobstructive CAD #Type 2 diabetes #Tobacco abuse #History of dizziness #Rheumatoid arthritis #History of pancreatitis - Latest EKG reviewed - Latest imaging reviewed Plan: - Ordered TTE - Ordered CXR - Ordered bilateral thoracentesis - Daily weight, strict I+Os - Monitor & replace electrolytes as needed, goal K >4 mEq/L, Mg >2 mg/dL - Holding amlodipine 10 mg daily - Holding losartan 100 mg daily - Continue atorvastatin 20 mg daily - Continue all other medications as prescribed - Consulted Pulmonology, appreciate recommendations Patient seen and discussed with Dr. Kathie Rodriguez II, MD PGY-V Cardiovascular Disease Fellow Pager: [phone] Problem List/Past Medical History Ongoing Arthritis H/O acute pancreatitis Hypertension Historical No qualifying data Procedure/Surgical History Cholecystectomy Appendicitis Medications Home Medications (15) Active albuterol MDI (90 mcg/inh) CFC free inhalation aerosol 1 puff(s), PRN, Inhalation, q2h amLODIPine 10 mg, Oral, qDay atorvastatin 20 mg oral tablet 20 mg = 1 tab(s), Oral, qHS Coenzyme Q10 100 mg, Oral, qDay doxycycline 100 mg, Oral, BID DULoxetine 30 mg oral delayed release capsule 60 mg = 2 cap(s), Oral, qHS famotidine 20 mg oral tablet 20 mg = 1 tab(s), Oral, qDay hydroxychloroquine 200 mg oral tablet 200 mg = 1 tab(s), Oral, BID ibuprofen 200 mg, PRN, Oral, q6hr leflunomide 20 mg oral tablet 20 mg = 1 tab(s), Oral, qDay levothyroxine 150 mcg, Oral, qDay losartan 100 mg oral tablet 100 mg = 1 tab(s), Oral, qDay meclizine 25 mg oral tablet 25 mg = 1 tab(s), PRN, Oral, TID MetFORMIN (Eqv-Fortamet) 1,000 mg, Oral, BID predniSONE 10 mg, PRN, Oral, qDay Allergies Bactrim sulfa drug Social History Smoking Status - 03/16/2018 Current every day smoker Alcohol Use: Past. Frequency: 1-2 times per month., 01/06/2023 Type: Liquor., 03/11/2018 Substance Abuse - Denies Substance Abuse, 03/10/2018 Tobacco Nicotine Use: 10 or more cigarettes (1/2 pack or more)/day in last 30 days. Type: Cigarettes., 01/06/2023 Family History Breast cancer: Sister. Cancer: Father. Cancer: Father and Sister. Diabetes mellitus: Sister. Heart attack: Mother. Heart disease: Sister. Hypertension: Sister. Stroke: Sister. Immunizations No qualifying data available. Code Status Code Status - Ordered -- 01/06/23 6:37:00 EDT, Full Code, Constant Order Digitally Signed by BONITA RODRIGUEZ MD on 01/06/2023 09:58 AM [id number] Note ORIGINAL EXAMINATION: ONE XRAY VIEW OF THE CHEST01/06/2023 7:14 am CHEST ONE VIEW AP/PA COMPARISON: 11/27/2020 HISTORY: ORDERING SYSTEM PROVIDED HISTORY: Reason for Exam: Chest Pain FINDINGS: The cardiomediastinal contours are normal. The previous is seen large hiatal hernia is not seen on today's exam. There are low lung volumes with hypoventilatory changes. There are small to moderate bilateral pleural effusions with adjacent airspace disease, greater on the left. No pneumothorax. No acute osseous abnormality. IMPRESSION: Small to moderate bilateral pleural effusions with adjacent airspace disease, greater on the left. Interpreted by: Bharathi Leiva MD Preliminary Report By: Bharathi Leiva MD Electronically signed By Bharathi Leiva MD Dictated Date: 01/06/2023 12:13:44 PM Prelim Date: 01/06/2023 12:15:56 PM Sign Date: 01/06/2023 12:15:56 PM [facility] course Narrative No data available for this section [facility] Summary Purpose Family History No Family History Records Found Advance Directives No Advanced Directives Records Found Additional Source Comments Patient Care team informatio n (unrecognized section and content) Care Team Personnel Name: BECKY ENGLISH MD Member Role: Primary Care Physician Address: Address: [address] [place] [address] [address] [place] [address] [place] INFORMATION SOURCE (unrecogn ized section and content) FOR RECORDS PERTAINING TO PATIENTS WHO ARE OR HAVE BEEN ENROLLED IN A CHEMICAL DEPENDENCY/SUBSTANCEABUSE PROGRAM, SOME INFORMATION MAY BE OMITTED. This clinical summary was aggregated from multiple sources. Caution should be exercised in using it in the provision of clinical care. This summary normalizes information from multiple sources, and as a consequence, information in this document may materially change the coding, format and clinical context of patient data. In addition, data may be omitted in some cases. CLINICAL DECISIONS SHOULD BE BASED ON THE PRIMARY CLINICAL RECORDS. [employer] [facility]. provides no warranty or guarantee of the accuracy or completeness of information in this document.
[2023-06-30 17:35] LABS: Absolute Lymphocyte Count 1.96 X10^3/uL (0.83-4.51); Absolute Neutrophil Count 5.3 X10^3/uL (2.0-7.7); Basophil# 0.05 X10^3/uL; Basophil% 0.6 % (0-1); Eosinophil# 0.22 X10^3/uL; Eosinophils% 2.7 % (0-5); Hematocrit 45.5 % (37-47); Hemoglobin 14.3 g/dL (12.0-15.0); Lymphocyte # 1.96 X10^3/ul (0.83-4.51); Mean Corp Hgb Conc 31.4 g/dL (32-36); Mean Corpuscular Hgb 28.3 pg (27.0-32.0); Mean Corpuscular Volume 89.9 fL (81-99); Mean Platelet Vol. 10.4 fl (6.2-12.0); Monocyte# 0.64 X10^3/uL; Monocyte% 7.8 % (0-10); NRBC Flagged by Analyzer 0 % (0-5); Neutrophil # 5.28 X10^3/uL (2.7-7.7); Neutrophil % 64.8 % (47-70); Platelet Count 209 K/mm3 (150-450); RBC Distribution Width CV 14.9 % (11.6-14.6); RBC Distribution Width SD 49.1 fl (35.1-43.9); Red Blood Count 5.06 M/mm3 (4.2-5.4); White Blood Count 8.2 K/mm3 (4.4-11.0)
[2023-06-30 18:23] LABS: ALB/GLOB Ratio 0.9 RATIO (0.9-2.4); AST(SGOT) 20 U/L (15-37); Alanine Aminotransfer ALT/SGPT 27 U/L (13-56); Albumin, Serum 3.7 g/dL (3.2-5.0); Alkaline Phosphatase 109 U/L (45-117); Anion Gap 9 (5-15); BUN 26 mg/dL (7-18); BUN/Creat Ratio 29.4 RATIO (10-20); Chloride 105 mmol/L (98-107); Creatinine, Serum 0.88 mg/dL (0.55-1.02); EST Glomerular Filtration Rate 69 mL/min (>60); Est Glom Filt Rate - Afr Amer 84 mL/min (>60); Glucose 111 mg/dL (74-106); Protein, Total 7.7 g/dL (6.4-8.2); Sodium Level 138 mmol/L (136-145)
== END | disposition home or self-care (01) ==
LOC: MFPLAB 15:37
PROVIDERS: PCP Family Medicine; Visit Provider Internal Medicine Rheumatology
DX: M05.79 Rheumatoid arthritis with rheumatoid factor of multiple sites without organ or systems involvement (principal); M79.7 Fibromyalgia; Z79.899 Other long term (current) drug therapy
CPT/HCPCS: 36415; 80053; 85025

== ENCOUNTER → 2023-09-23 | Outpatient (CLI) | payer OTHER, SELFPAY ==
[2023-09-23 12:20] LABS: Absolute Lymphocyte Count 1.94 X10^3/uL (0.83-4.51); Absolute Neutrophil Count 4.2 X10^3/uL (2.0-7.7); Basophil# 0.05 X10^3/uL; Basophil% 0.7 % (0-1); Eosinophil# 0.34 X10^3/uL; Eosinophils% 4.8 % (0-5); Hematocrit 47.2 % (37-47); Hemoglobin 15.1 g/dL (12.0-15.0); Lymphocyte # 1.94 X10^3/ul (0.83-4.51); Lymphocyte % 27.4 % (19-41); Mean Corpuscular Volume 90.6 fL (81-99); Mean Platelet Vol. 10.4 fl (6.2-12.0); Monocyte# 0.56 X10^3/uL; Monocyte% 7.9 % (0-10); NRBC Flagged by Analyzer 0 % (0-5); Neutrophil # 4.16 X10^3/uL (2.7-7.7); Neutrophil % 58.9 % (47-70); Platelet Count 189 K/mm3 (150-450); RBC Distribution Width CV 13.6 % (11.6-14.6); RBC Distribution Width SD 45.8 fl (35.1-43.9); Red Blood Count 5.21 M/mm3 (4.2-5.4); White Blood Count 7.1 K/mm3 (4.4-11.0)
[2023-09-23 12:47] LABS: ALB/GLOB Ratio 0.9 RATIO (0.9-2.4); AST(SGOT) 11 U/L (15-37); Alanine Aminotransfer ALT/SGPT 16 U/L (13-56); Albumin, Serum 3.6 g/dL (3.2-5.0); Alkaline Phosphatase 95 U/L (45-117); Anion Gap 4 (5-15); BUN 17 mg/dL (7-18); Calcium,Total 9.7 mg/dL (8.5-10.1); Chloride 108 mmol/L (98-107); Creatinine, Serum 0.71 mg/dL (0.55-1.02); EST Glomerular Filtration Rate 90 mL/min (>60); Est Glom Filt Rate - Afr Amer 108 mL/min (>60); Globulin 4.2 g/dL (2.2-4.2); Glucose 144 mg/dL (74-106); Potassium 4.1 mmol/L (3.5-5.1); Protein, Total 7.8 g/dL (6.4-8.2); Sodium Level 139 mmol/L (136-145)
== END | disposition home or self-care (01) ==
LOC: MFPLAB 10:44
PROVIDERS: PCP Family Medicine; Visit Provider Internal Medicine Rheumatology
DX: M05.79 Rheumatoid arthritis with rheumatoid factor of multiple sites without organ or systems involvement (principal); M79.7 Fibromyalgia; M40.204 Unspecified kyphosis, thoracic region; I10 Essential (primary) hypertension; Z79.899 Other long term (current) drug therapy
CPT/HCPCS: 36415; 80053; 85025

== ENCOUNTER → 2023-11-18 | Outpatient (CLI) | payer OTHER, SELFPAY ==
[2023-11-18 13:05] LABS: Cholesterol 135 mg/dL (200); Free T3 1.8 pg/mL (2.18-3.98); High Density Lipoprotein 56 mg/dL; T4 Free Direct 1.47 ng/dL (0.76-1.46); Triglycerides 110 mg/dL; Very Low Density Lipoprotein 22 mg/dL (5-40)
== END | disposition home or self-care (01) ==
LOC: MFPLAB 11:11
PROVIDERS: PCP Family Medicine; Visit Provider Family Medicine
DX: E03.9 Hypothyroidism, unspecified (principal); E11.40 Type 2 diabetes mellitus with diabetic neuropathy, unspecified
CPT/HCPCS: 36415; 80061; 84439; 84443; 84481

== ENCOUNTER → 2023-12-16 | Outpatient (CLI) | payer OTHER, SELFPAY ==
[2023-12-16 12:06] LABS: Absolute Lymphocyte Count 2.43 X10^3/uL (0.83-4.51); Absolute Neutrophil Count 4.5 X10^3/uL (2.0-7.7); Basophil# 0.07 X10^3/uL; Basophil% 0.9 % (0-1); Eosinophil# 0.35 X10^3/uL; Eosinophils% 4.4 % (0-5); Hematocrit 49.1 % (37-47); Hemoglobin 15.7 g/dL (12.0-15.0); Lymphocyte # 2.43 X10^3/ul (0.83-4.51); Lymphocyte % 30.9 % (19-41); Mean Corpuscular Hgb 28.3 pg (27.0-32.0); Mean Corpuscular Volume 88.6 fL (81-99); Mean Platelet Vol. 10.5 fl (6.2-12.0); Monocyte# 0.53 X10^3/uL; Monocyte% 6.7 % (0-10); NRBC Flagged by Analyzer 0 % (0-5); Neutrophil # 4.46 X10^3/uL (2.7-7.7); Neutrophil % 56.7 % (47-70); Platelet Count 219 K/mm3 (150-450); RBC Distribution Width CV 14.8 % (11.6-14.6); RBC Distribution Width SD 48.4 fl (35.1-43.9); Red Blood Count 5.54 M/mm3 (4.2-5.4); White Blood Count 7.9 K/mm3 (4.4-11.0)
[2023-12-16 13:03] LABS: ALB/GLOB Ratio 0.8 RATIO (0.9-2.4); AST(SGOT) 13 U/L (15-37); Alanine Aminotransfer ALT/SGPT 17 U/L (13-56); Albumin, Serum 3.5 g/dL (3.2-5.0); Alkaline Phosphatase 102 U/L (45-117); Anion Gap 5 (5-15); BUN 20 mg/dL (7-18); BUN/Creat Ratio 24.9 RATIO (10-20); Calcium,Total 9.8 mg/dL (8.5-10.1); Chloride 108 mmol/L (98-107); EST Glomerular Filtration Rate 77 mL/min (>60); Est Glom Filt Rate - Afr Amer 94 mL/min (>60); Globulin 4.4 g/dL (2.2-4.2); Glucose 135 mg/dL (74-106); Potassium 4.1 mmol/L (3.5-5.1); Protein, Total 7.9 g/dL (6.4-8.2); Sodium Level 138 mmol/L (136-145)
== END | disposition home or self-care (01) ==
LOC: MFPLAB 10:22
PROVIDERS: PCP Family Medicine; Visit Provider Internal Medicine Rheumatology
DX: M05.79 Rheumatoid arthritis with rheumatoid factor of multiple sites without organ or systems involvement (principal); Z79.899 Other long term (current) drug therapy
CPT/HCPCS: 36415; 80053; 85025

== ENCOUNTER 2024-01-28 02:27 | Inpatient (IN) | payer OTHER, SELFPAY ==
[2024-01-28] VITALS (14 sets, daily range): BP systolic 102–166; BP diastolic 64–89; PULSE 71–99; RESP 15–18; TEMP 36.4–36.9; O2SAT 85–99; BMI 37.0; BMI 36.8
--- NOTE | 2024-01-28 02:38 | CT_ITS ---
EXAM: CT Abdomen And Pelvis W/ Contrast Injection HISTORY: pain -- Cholecystectomy, history of choledocholithiasis TECHNIQUE: Routine protocol CT abdomen pelvis. IV Contrast: IV 100mL Isovue-370 . Oral Contrast: without. Sagittal and coronal images were reconstructed. RADIATION DOSAGE (If Supplied By Facility): CTDIvol = ( 17.07 ) mGy, DLP = ( 1188.49 ) mGycm Individualized dose optimization techniques were used for this CT. COMPARISON: None. LIMITATIONS: None. FINDINGS: LOWER CHEST: Minimal dependent atelectasis in the lung bases. LIVER: Unremarkable. GALLBLADDER/BILE DUCTS: Gallbladder surgically absent. The common bile duct and intrahepatic ducts are prominent likely postsurgical. PANCREAS: Unremarkable. SPLEEN: Unremarkable. ADRENAL GLANDS: Unremarkable. KIDNEYS / URETERS: Unremarkable. 4 cm cyst in the right kidney, no follow-up needed. BOWEL / MESENTERY: Diverticula throughout the colon. No bowel obstruction. APPENDIX: Not identified. PERITONEUM: No free air. No free fluid. VESSELS: Abdominal aorta is normal caliber. RETROPERITONEUM: Unremarkable. REPRODUCTIVE ORGANS: Unremarkable. BLADDER: Unremarkable. ABDOMINAL WALL: Unremarkable. Bilateral adrenal nodules, 2.6 cm on the right, 2.1 cm on the left, not completely characterized. BONES: No acute abnormality. Degenerative changes in the spine and scoliosis OTHER: None. CT/Abdomen/Pelvis W IV Cont ONLY IMPRESSION: No acute findings. Prominent biliary tree is likely postsurgical, cholecystectomy. Lab correlation and/or ultrasound or MRI/MRCP may be helpful as clinically indicated. Bilateral adrenal nodules indeterminate. Further evaluation CT or MRI adrenal protocol suggested. Colonic diverticulosis without evidence of acute diverticulitis. Electronically Signed: Selena Khan MD at 4:25 EDT ,
--- NOTE | 2024-01-28 02:39 | ED.VIS.GI ---
HPI HPI - GI History of Present Illness Chief Complaint: Abd Pain Informant: patient Narrative Narrative: Persistent abdominal pain right upper quadrant last 2 days worsened this evening. Nausea without vomiting. No diarrhea. Normal bowel movements. History of gallstone pancreatitis 2 years ago status postcholecystectomy shortly afterwards. No other abdominal surgeries. Allergies to sulfa. No urinary symptoms. Denies alcohol history. Prior similar symptoms: Yes PFSH PFSH Medical History Loss of hearing Wears glasses Wears dentures History of steroid therapy Thyroid disease DVT (deep venous thrombosis) High cholesterol Back pain Vertigo Heartburn Smoker Shortness of breath on exertion Leg cramps Hypertension Cardiology follow-up encounter History of Holter monitoring History of echocardiogram History of stress test Lightheadedness Near syncope Mixed hyperlipidemia History of left heart catheterization (LHC) (~03/24/22) Abnormal cardiac CT angiography Tachycardia Essential hypertension Kyphosis Rheumatoid arthritis Home Medications ?Medication ?Instructions ?Recorded ?Last Taken ?Type meclizine 25 mg tablet 25 mg PO TID PRN dizziness 12/16/21 Unknown History amlodipine 10 mg tablet 10 mg PO DAILY 01/01/22 04/15/22 History hydroxychloroquine 200 mg tablet 200 mg PO BID 01/01/22 Unknown History losartan 100 mg tablet 100 mg PO DAILY 01/01/22 04/15/22 History famotidine 20 mg tablet 20 mg PO DAILY 09/16/22 Unknown History ibuprofen 200 mg tablet (Advil) 200 mg PO Q6H 09/16/22 Unknown History levothyroxine 150 mcg tablet See Rx Instructions .Route 11/02/22 Unknown Rx .COMPLEX #90 tabs metformin 1,000 mg tablet 1,000 mg PO BID 11/16/22 Unknown History prednisone 10 mg tablet 10 mg PO DAILY PRN ARTHRITIS FLARE 11/16/22 Unknown History UP atorvastatin 20 mg tablet See Rx Instructions .Route 05/05/23 Unknown Rx .COMPLEX #90 tabs cetirizine 10 mg tablet 10 mg PO DAILY 01/28/24 Unknown History empagliflozin 25 mg tablet 25 mg PO DAILY 01/28/24 Unknown History (Jardiance) gabapentin 100 mg capsule 100 mg PO TID 01/28/24 Unknown History leflunomide 20 mg tablet 20 mg PO DAILY 01/28/24 Unknown History Allergy/AdvReac Type Severity Reaction Status Date / Time Sulfa (Sulfonamide Allergy Unknown Hives Verified 01/28/24 02:31 Antibiotics) Family History Sister Breast cancer Hypertension Diabetes Sister Myocardial infarction, Onset Age: 30 Surgical History History of total thyroidectomy History of cardiac catheterization (~02/2022) S/P thyroid biopsy (~02/2022) History of laparoscopic cholecystectomy History of appendectomy Social History Smoking Status: Current every day smoker tobacco type: cigarettes Tobacco: How many years used: 30 second hand exposure: Yes alcohol intake: current alcohol intake frequency: holidays/special occasions only substance use type: does not use caffeine: Yes Type: coffee Number of servings: 3 seatbelt use: always ROS ROS ED Constitutional Constitutional ED: Denies chills, fever(s) or sweats Eyes Eyes: Denies change in vision ENT ENT ED: Denies dysphagia or sore throat Cardiovascular Cardiovascular: Denies chest pain, leg edema, palpitations or racing heartbeat Respiratory/Chest Respiratory/Chest: Denies cough, dyspnea or dyspnea on exertion Gastrointestinal Gastrointestinal: Reports abdominal pain and nausea; Denies diarrhea or vomiting Genitourinary Genitourinary ED: Denies dysuria, hematuria or urinary frequency Musculoskeletal Musculoskeletal: Denies back pain, extremity pain or neck pain Integumentary Denies rash or wounds Neurologic Neurologic: Denies headache(s), paresthesias or weakness EXAM Physical Exam Const Vital Signs: 01/28/24 02:28 01/28/24 02:47 01/28/24 02:50 Temperature 98.4 F Temperature Source Oral Pulse Rate 99 95 Respiratory Rate 18 16 Blood Pressure 166/89 H 122/64 H Blood Pressure Mean 114 83 Pulse Ox 99 85 Oxygen Delivery Method Room Air Oxygen Flow Rate (L/min) 01/28/24 02:50 01/28/24 03:57 01/28/24 04:02 Temperature 98.3 F 98.1 F Temperature Source Oral Pulse Rate 96 83 83 Respiratory Rate 16 16 18 Blood Pressure 128/68 H 102/71 Blood Pressure Mean 88 81 Pulse Ox 94 92 93 Oxygen Delivery Method Nasal Cannula Nasal Cannula Oxygen Flow Rate (L/min) 1 1 Positive well nourished and well developed General Appearance ED: well developed and NAD HEENT Reports moist mucous membranes normocephalic and atraumatic Eyes EOMs intact bilaterally and conjunctivae normal General Eye ED: Yes normal appearance of both eyes Neck no lymphadenopathy and supple General: Negative for tenderness Chest Wall Chest: Negative for tenderness Resp normal respiratory effort and normal air movement Effort and Inspection: symmetric chest movement; Negative for respiratory distress Cardio regular rate, regular rhythm and no murmurs Peripheral Pulses: pulses 2+ throughout GI normal to inspection, nondistended, normoactive bowel sounds GI Narrative: Mild tenderness right upper quadrant, no guarding or rebound. Palpation: Negative for guarding or rebound tenderness present Back/Spine no CVA tenderness and no thoracic nor lumbar tenderness Extremity normal to inspection General Extremety ED: Negative for edema or tenderness General Extremity: Negative for edema Neuro oriented x3 and no sensory deficits noted Sensorium / Orientation: awake and alert Skin no rashes or lesions noted and no wounds MDM MDM MDM Narrative Medical decision making narrative: Interventions / MDM: Differential diagnosis:Acute pancreatitis, abdominal pain Diagnosis considered but do not suspect: N/A My EKG interpretation: N/A Imaging independently reviewed and interpreted by myself: CT scan IV contrast. Cholecystectomy mild prominent postsurgical dilation of common bile duct. No pancreatic changes noted. Right renal cyst noted. Bilateral adrenal nodules noted. External documents reviewed: N/A Test considered but not ordered:N/A ED course: Patient pain right upper quadrant for similar to her pancreatitis in the past she status postcholecystectomy. Abdominal labs were ordered, IV fluids Zofran morphine ordered for pain control. CT scan IV contrast for further evaluation with her history of choledocholithiasis. Lipase over 250 normal liver enzymes white count 10.4. Creatinine 0.72. Patient placed on oxygen after morphine was given. 0430: CT scan incidental adrenal nodules renal cyst. This was discussed with the patient. No pancreatic changes noted, no significant dilatation of common bile duct. Pain down to 5 initially however increasing per patient. Issue morphine be ordered. IV fluids continued. Will discuss with hospitalist for admission. Re-evaluation: stable Disposition discussed with patient/family/significant other: Patient and daughter Case discussed with consulting clinician: Hospitalist This note was generated with [employer] software. It may contain incorrect words, spelling, and punctuation that were not noted in checking the note before signing. Lab Data Attestation: I reviewed the patient's lab results. Labs: Laboratory Results - last 24 hr 01/28/24 02:35 WBC 10.4 RBC 5.63 H Hgb 15.8 H Hct 49.3 H MCV 87.6 MCH 28.1 MCHC 32.0 RDW Std Deviation 47.0 H RDW Coeff of Layla 14.8 H Plt Count 200 MPV 10.0 Immature Gran % (Auto) 0.300 Neut % (Auto) 65.4 Lymph % (Auto) 23.0 Freestone % (Auto) 7.5 Eos % (Auto) 3.1 Baso % (Auto) 0.7 Absolute Neuts (auto) 6.8 Absolute Lymphs (auto) 2.40 Nucleated RBC % 0 Sodium 138 Potassium 3.6 Chloride 107 Carbon Dioxide 25.0 Anion Gap 6 BUN 21 H Creatinine 0.72 Estim Creat Clear Calc 90.98 Est GFR (MDRD) Af Amer 106 Est GFR (MDRD) Non-Af 88 BUN/Creatinine Ratio 29.2 H Glucose 178 H Calcium 9.3 Total Bilirubin 0.40 Direct Bilirubin 0.11 AST 12 L ALT 15 Alkaline Phosphatase 99 Total Protein 7.9 Albumin 3.5 Globulin 4.4 H Lipase > 250 H Radiography Diagnostic Testing: Clinical Impression(s) from Imaging Studies Abdomen/Pelvis CT 01/28/24 02:38 IMPRESSION: No acute findings. Prominent biliary tree is likely postsurgical, cholecystectomy. Lab correlation and/or ultrasound or MRI/MRCP may be helpful as clinically indicated. Bilateral adrenal nodules indeterminate. Further evaluation CT or MRI adrenal protocol suggested. Colonic diverticulosis without evidence of acute diverticulitis. Electronically Signed: Selena Khan MD at 4:25 EDT , Discharge Plan Dx/Rx/DC Orders Clinical Impression: Acute pancreatitis, Abdominal pain, Adrenal nodule, Renal cyst Disposition Disposition: [facility]
[2024-01-28 02:45] LABS: Absolute Neutrophil Count 6.8 X10^3/uL (2.0-7.7); Basophil# 0.07 X10^3/uL; Basophil% 0.7 % (0-1); Eosinophil# 0.32 X10^3/uL; Eosinophils% 3.1 % (0-5); Hematocrit 49.3 % (37-47); Hemoglobin 15.8 g/dL (12.0-15.0); Mean Corpuscular Hgb 28.1 pg (27.0-32.0); Mean Corpuscular Volume 87.6 fL (81-99); Monocyte# 0.78 X10^3/uL; Monocyte% 7.5 % (0-10); NRBC Flagged by Analyzer 0 % (0-5); Neutrophil # 6.83 X10^3/uL (2.7-7.7); Neutrophil % 65.4 % (47-70); Platelet Count 200 K/mm3 (150-450); RBC Distribution Width CV 14.8 % (11.6-14.6); Red Blood Count 5.63 M/mm3 (4.2-5.4); White Blood Count 10.4 K/mm3 (4.4-11.0)
[2024-01-28] MEDS: 0.9% Normal Saline (1000mL) 1,000 ML 125 ML IV (02:47)
[2024-01-28] MEDS: Ondansetron 4 MG/2 ML Vial IV ×2 (02:47→11:33)
[2024-01-28] MEDS: Morphine 4 MG/ML Syringe IV ×2 (02:47→04:36)
[2024-01-28 03:43] LABS: AST(SGOT) 12 U/L (15-37); Alanine Aminotransfer ALT/SGPT 15 U/L (13-56); Albumin, Serum 3.5 g/dL (3.2-5.0); Alkaline Phosphatase 99 U/L (45-117); Anion Gap 6 (5-15); BUN 21 mg/dL (7-18); BUN/Creat Ratio 29.2 RATIO (10-20); Bilirubin, Direct 0.11 mg/dL (0.00-0.30); Calcium,Total 9.3 mg/dL (8.5-10.1); Chloride 107 mmol/L (98-107); Creatinine, Serum 0.72 mg/dL (0.55-1.02); EST Glomerular Filtration Rate 88 mL/min (>60); Est Glom Filt Rate - Afr Amer 106 mL/min (>60); Estimated Creatinine Clearance 90.98 ml/min; Globulin 4.4 g/dL (2.2-4.2); Glucose 178 mg/dL (74-106); Lipase > 250 U/L (13-75); Potassium 3.6 mmol/L (3.5-5.1); Protein, Total 7.9 g/dL (6.4-8.2); Sodium Level 138 mmol/L (136-145)
--- NOTE | 2024-01-28 04:51 | HP.PCM.HOS_ITS ---
HPI - General General Date of Admission: 01/28/24 Date of Service: 01/28/24 Chief Complaint: Abdominal pain HPI Narrative CAITILN OSBORNE, is a 58 F who presents with abdominal pain. This is a 58-year-old female with a rheumatoid arthritis, diabetes presents with 3-day history of abdominal pain. Thumb pain is much in her whole epigastrium primarily in the right upper epigastrum. Feels similar to when she has had pancreatitis in the past. Previously she had pancreatitis due to stones in her gallbladder was subsequent removed. So she presents here and her lipase was elevated at greater than 250. CAT scan did not show any acute pancreatitis. Patient received morphine as well as IV fluids in the emergency room. [facility] Medical History Loss of hearing Wears glasses Wears dentures History of steroid therapy Thyroid disease DVT (deep venous thrombosis) High cholesterol Back pain Vertigo Heartburn Smoker Shortness of breath on exertion Leg cramps Hypertension Cardiology follow-up encounter History of Holter monitoring History of echocardiogram History of stress test Lightheadedness Near syncope Mixed hyperlipidemia History of left heart catheterization (LHC) (~03/24/22) Abnormal cardiac CT angiography Tachycardia Essential hypertension Kyphosis Rheumatoid arthritis Home Medications ?Medication ?Instructions ?Recorded ?Last Taken ?Type meclizine 25 mg tablet 25 mg PO TID PRN dizziness 12/16/21 Unknown History amlodipine 10 mg tablet 10 mg PO DAILY 01/01/22 04/15/22 History hydroxychloroquine 200 mg tablet 200 mg PO BID 01/01/22 Unknown History losartan 100 mg tablet 100 mg PO DAILY 01/01/22 04/15/22 History famotidine 20 mg tablet 20 mg PO DAILY 09/16/22 Unknown History ibuprofen 200 mg tablet (Advil) 200 mg PO Q6H 09/16/22 Unknown History levothyroxine 150 mcg tablet See Rx Instructions .Route 11/02/22 Unknown Rx .COMPLEX #90 tabs metformin 1,000 mg tablet 1,000 mg PO BID 11/16/22 Unknown History prednisone 10 mg tablet 10 mg PO DAILY PRN ARTHRITIS FLARE 11/16/22 Unknown History UP atorvastatin 20 mg tablet See Rx Instructions .Route 05/05/23 Unknown Rx .COMPLEX #90 tabs cetirizine 10 mg tablet 10 mg PO DAILY 01/28/24 Unknown History empagliflozin 25 mg tablet 25 mg PO DAILY 01/28/24 Unknown History (Jardiance) gabapentin 100 mg capsule 100 mg PO TID 01/28/24 Unknown History leflunomide 20 mg tablet 20 mg PO DAILY 01/28/24 Unknown History Allergy/AdvReac Type Severity Reaction Status Date / Time Sulfa (Sulfonamide Allergy Unknown Hives Verified 01/28/24 02:31 Antibiotics) Family History Sister Breast cancer Hypertension Diabetes Sister Myocardial infarction, Onset Age: 30 Surgical History History of total thyroidectomy History of cardiac catheterization (~02/2022) S/P thyroid biopsy (~02/2022) History of laparoscopic cholecystectomy History of appendectomy Social History Smoking Status: Current every day smoker tobacco type: cigarettes Tobacco: How many years used: 30 second hand exposure: Yes alcohol intake: current alcohol intake frequency: holidays/special occasions only substance use type: does not use caffeine: Yes Type: coffee Number of servings: 3 seatbelt use: always ROS ROS Narrative Some nausea but no vomiting. All review of systems were negative except as mentioned above in the history of present illness and the other review of systems. Vital Signs Vital Signs Vital Signs: 01/28/24 02:28 01/28/24 02:47 01/28/24 02:50 Temperature 36.9 C Temperature Source Oral Pulse Rate 99 95 Respiratory Rate 18 16 Blood Pressure 166/89 H 122/64 H Blood Pressure Mean 114 83 Pulse Ox 99 85 Oxygen Delivery Method Room Air Oxygen Flow Rate (L/min) 01/28/24 02:50 01/28/24 03:57 01/28/24 04:02 Temperature 36.8 C 36.7 C Temperature Source Oral Pulse Rate 96 83 83 Respiratory Rate 16 16 18 Blood Pressure 128/68 H 102/71 Blood Pressure Mean 88 81 Pulse Ox 94 92 93 Oxygen Delivery Method Nasal Cannula Nasal Cannula Oxygen Flow Rate (L/min) 1 1 Weight Weight: 94.8 kg Body Mass Index (BMI) 37.0 Physical Exam Narrative - Physical Exam General: Alert, Oriented x3, Cooperative HEENT: Atraumatic, PERRLA, EOMI, Normocephalic Oral: Moist Mucosa, No Gingival or Mucosal Lesions/ Ulcerations Neck: Supple, No JVD, Negative Carotid Bruits Lungs: Clear to auscultation, Normal air movement Cardiovascular: Regular rate, Normal S1, Normal S2, No murmurs Abdomen: Bowel Sounds Present, Soft, tender in the. The right upper quadrant but also extending left lower quadrant as well. Obese., Non-Distended, No Hepato-splenomegaly Extremities: No clubbing, No cyanosis, No edema, Capillary Refill Less than 3 Seconds Skin: No rashes, No breakdown Musculoskeletal: No Tenderness to Palpation of Joints or Extremities Neurological: Neuro grossly intact Psych/Mental Status: Normal Affect, Appropriate Results Lab / Micro Data Attestation: I reviewed the patient's lab results. 01/28/24 02:35 01/28/24 02:35 Labs: Laboratory Results - last 24 hr 01/28/24 02:35: WBC 10.4, RBC 5.63 H, Hgb 15.8 H, Hct 49.3 H, MCV 87.6, MCH 28.1, MCHC 32.0, RDW Std Deviation 47.0 H, RDW Coeff of Layla 14.8 H, Plt Count 200, MPV 10.0, Immature Gran % (Auto) 0.300, Neut % (Auto) 65.4, Lymph % (Auto) 23.0, [place] % (Auto) 7.5, Eos % (Auto) 3.1, Baso % (Auto) 0.7, Absolute Neuts (auto) 6.8, Absolute Lymphs (auto) 2.40, Nucleated RBC % 0, Sodium 138, Potassium 3.6, Chloride 107, Carbon Dioxide 25.0, Anion Gap 6, BUN 21 H, Creatinine 0.72, Estim Creat Clear Calc 90.98, Est GFR (MDRD) Af Amer 106, Est GFR (MDRD) Non-Af 88, BUN/Creatinine Ratio 29.2 H, Glucose 178 H, Calcium 9.3, Total Bilirubin 0.40, Direct Bilirubin 0.11, AST 12 L, ALT 15, Alkaline Phosphatase 99, Total Protein 7.9, Albumin 3.5, Globulin 4.4 H, Lipase > 250 H Imaging Radiology Impression Abdomen/Pelvis CT 01/28/24 02:38 IMPRESSION: No acute findings. Prominent biliary tree is likely postsurgical, cholecystectomy. Lab correlation and/or ultrasound or MRI/MRCP may be helpful as clinically indicated. Bilateral adrenal nodules indeterminate. Further evaluation CT or MRI adrenal protocol suggested. Colonic diverticulosis without evidence of acute diverticulitis. Electronically Signed: Selena Khan MD at 4:25 EDT , Assessment & Plan Assessment/Plan (1) Acute pancreatitis: PLAN: CAT scan showed prominence of biliary tree but this more likely postsurgical infection status post cholecystectomy. Plan is to check an MRCP to see if she does have stones in there. Patient will be on IV fluids as well as have pain control with acetaminophen, ketorolac, oxycodone as needed IV morphine; and antiemetics. I am going to hold her empagliflozin as that can cause pancreatitis. Unclear if this is the etiology of her pancreatitis but will hold off for the time being. Patient be on full liquid diet advance to transitional as she tolerates. Depending on the clinical course and MRCP results, patient may need GI evaluation. PLAN: Plan Bilateral adrenal nodule * Unclear significance. Will require follow-up with as outpatient. Chronic conditions * Diabetes mellitus type 2: As above, will be holding the empagliflozin. Continue with metformin. Add sliding scale insulin. * Rheumatoid arthritis: Not in any acute flares. Continue with hydroxychloroquine, leflunomide and prednisone. * Hypothyroidism: Continue paroxetine * Hypertension: Continue losartan and amlodipine VTE prophylaxis with enoxaparin CODE STATUS: Addressed with the patient. Patient wishes to be full code Charges/Coding Visit Charges Inpatient E&M: 95185 Init Hosp L3
--- NOTE | 2024-01-28 05:08 | MRI_ITS ---
EXAM: MR ABDOMEN WITHOUT INTRAVENOUS CONTRAST, MRCP PROTOCOL CLINICAL INDICATION: pancreatitis TECHNIQUE: Multiplanar and multisequence MR images of the abdomen without intravenous contrast obtained with MRCP sequence. Three-dimensional post-processing reconstructions were performed. COMPARISON: CT abdomen and pelvis 01/28/2024 FINDINGS: LOWER THORAX: Normal. No pleural effusion. LIVER: Normal. Normal morphology. GALLBLADDER AND BILE DUCTS: Prominence of the common bile duct within the range of normal for postcholecystectomy patient. Common bile duct measures 8 mm in maximum diameter. 2.8 cm long cystic duct remnant is noted. PANCREAS: Normal. No focal cystic mass. No pancreatic duct dilation. SPLEEN: Normal. Non-enlarged. ADRENALS: 2 cm bilateral adrenal nodules. KIDNEYS AND URETERS: 4 cm simple appearing cyst noted within the upper pole left kidney. Similar 5 mm lesion within the upper pole of the left kidney. Normal renal size and position. No hydronephrosis. INTRAPERITONEAL SPACE: Normal. No ascites or other fluid collection. BONES/JOINTS: Prominent S-shaped scoliosis of the thoracolumbar spine associated with diffuse multilevel disc degeneration. VASCULATURE: Normal. Abdominal aorta is non-dilated. LYMPH NODES: No enlarged lymph nodes. MRI/MRCP Abdomen without Contrast IMPRESSION: 1. No evidence of acute pancreatitis. 2. As above. Electronically Signed: Den Paiz MD at 12:57 EDT ,
[2024-01-28] MEDS: 0.9% Normal Saline (1000mL) 1,000 ML 150 ML IV (05:26)
[2024-01-28] MEDS: Acetaminophen 500 MG Tablet 1000 MG PO ×2 (05:29→13:48)
[2024-01-28] MEDS: Gabapentin 100 MG Capsule PO ×3 (05:29→21:24)
[2024-01-28] MEDS: Levothyroxine 150 MCG Tablet PO (05:29)
[2024-01-28 06:46] LABS: Bedside Glucose 141 mg/dL (74-106)
[2024-01-28] MEDS: Lactated Ringers 1,000 ML 100 ML IV (07:55)
--- NOTE | 2024-01-28 09:40 | CASEMGMT ---
CACHORRO HUYNH Assessment: Face to Face with pt for initial transition planning/care coordination assessment. CACHORRO HUYNH introduced self and role at [facility], pt voices understanding and consents to assessment. Pt is A&O x4 and answers all questions appropriately at this time. Pt lying in bed in no distress. Care providers, pharmacy, and demographics verified/updated. Admitting Dx: pancreatitis Strata Score: 2 PCP:[facility]: [facility] Insurance: Int Benefit Admin Prescription Benefit: yes LNOK: Steve Germain, Living Arrangements: Pt lives with in a single story home with 2 steps to enter. Pt reports she is I in ADL/IADLs and denies concerns at home. Transportation: Pt drives self and denies concerns with transportation. DME:Denies, pt states she does not have to check her blood sugar. HHC/SNF: Pt denies hx. Pt states no concerns with going home at time of dc. Pt states no further concerns/needs. CM to follow. Advised pt to ask CM if any further question/concerns/needs arise, voices understanding. Pt Goal: Home Plan: Home Samy IVORY CM
--- NOTE | 2024-01-28 10:50 | PN.HOSP_ITS ---
Reason for Visit Reason for Visit: Diagnoses Acute pancreatitis without necrosis or infection, unspecified (01/28/24) Subjective Subjective Patient presented early this morning with worsening abdominal pain. Was found in the ED to have a lipase greater than 250 but did not have any changes of acute pancreatitis on CT imaging. Notably has history of cholecystectomy. Had MRCP done this morning, saw patient at bedside this afternoon. MRCP notably also showed no changes of acute pancreatitis or common bile duct dilation. Patient was fatigued appearing but otherwise laying comfortably in bed, conversing normally, no acute distress. She continued to have some abdominal pain but noted this was improved from previous. She has been tolerating a full liquid diet since returning from [facility] this morning, no nausea or vomiting. Denies any fevers or chills. No other acute concerns at this time. Objective Data Objective Data Vital Signs: Vital Signs Temp Pulse Resp BP Pulse Ox O2 Del Method O2 Flow Rate 97.5 F L 77 18 116/68 95 Nasal Cannula 2 01/28/24 07:52 01/28/24 07:52 01/28/24 07:52 01/28/24 07:52 01/28/24 07:52 01/28/24 07:57 01/28/24 07:57 Oxygen Flow Rate (L/min) 2 Oxygen Delivery Method Nasal Cannula Weight: 94.4 kg Body Mass Index (BMI) 36.8 Intake & Output: Intake and Output for Last 24 Hours 01/26/24 01/27/24 01/28/24 23:59 23:59 23:59 Intake Total 1099.58 / 1099.58 Balance 1099.58 / 1099.58 Lab / Micro Data 01/28/24 02:35 01/28/24 02:35 Labs: Laboratory Results - last 24 hr 01/28/24 02:35: WBC 10.4, RBC 5.63 H, Hgb 15.8 H, Hct 49.3 H, MCV 87.6, MCH 28.1, MCHC 32.0, RDW Std Deviation 47.0 H, RDW Coeff of Layla 14.8 H, Plt Count 200, MPV 10.0, Immature Gran % (Auto) 0.300, Neut % (Auto) 65.4, Lymph % (Auto) 23.0, [place] % (Auto) 7.5, Eos % (Auto) 3.1, Baso % (Auto) 0.7, Absolute Neuts (auto) 6.8, Absolute Lymphs (auto) 2.40, Nucleated RBC % 0, Sodium 138, Potassium 3.6, Chloride 107, Carbon Dioxide 25.0, Anion Gap 6, BUN 21 H, Creatinine 0.72, Estim Creat Clear Calc 90.98, Est GFR (MDRD) Af Amer 106, Est GFR (MDRD) Non-Af 88, BUN/Creatinine Ratio 29.2 H, Glucose 178 H, Calcium 9.3, Total Bilirubin 0.40, Direct Bilirubin 0.11, AST 12 L, ALT 15, Alkaline Phosphatase 99, Total Protein 7.9, Albumin 3.5, Globulin 4.4 H, Lipase > 250 H 01/28/24 06:28: POC Glucose 141 H Radiography Diagnostic Testing: Radiology Impression Abdomen/Pelvis CT 01/28/24 02:38 IMPRESSION: No acute findings. Prominent biliary tree is likely postsurgical, cholecystectomy. Lab correlation and/or ultrasound or MRI/MRCP may be helpful as clinically indicated. Bilateral adrenal nodules indeterminate. Further evaluation CT or MRI adrenal protocol suggested. Colonic diverticulosis without evidence of acute diverticulitis. Electronically Signed: Selena Khan MD at 4:25 EDT , Physical Exam Const alert, oriented x3 and no apparent distress Constitutional Narrative: Pleasant middle-age female, obese, mildly fatigued appearing, otherwise laying comfortably in bed, conversing normally, no acute distress. General Appearance: cooperative and comfortable HEENT normocephalic, head/scalp atraumatic, hearing grossly normal bilaterally, nasal mucous membranes and turbinates normal and moist oral mucous membranes Eyes PERRL, EOMs intact bilaterally and conjunctivae normal Neck full ROM Chest inspection of chest normal Resp normal respiratory effort, normal air movement, no use of accessory muscles and clear to auscultation bilaterally Cardio regular rate, regular rhythm, no murmurs and peripheral pulses 2+ throughout GI GI Narrative: Mild tenderness to palpation in epigastric area. Otherwise abdomen soft and nondistended and patient with normal bowel sounds. Back/Spine normal ROM Extremity normal to inspection, full ROM and no pedal edema Skin no rashes or lesions noted Neuro no focal motor deficits and no sensory deficits noted Speech: speech normal Psych mental status grossly normal Assessment & Plan Assessment/Plan (1) Acute pancreatitis: (2) Adrenal nodule: PLAN: Plan Patient is a 58-year-old female who presented [facility] ED on 01/28/2024 with worsening abdominal pain. 1. Acute pancreatitis, history of cholecystectomy ? GI consulted. Met criteria for acute pancreatitis on admission with abdominal pain and lipase greater than 250. CT abdomen pelvis on admit with prominent biliary tree, no acute pancreatitis findings, otherwise unremarkable. MRCP also showed no pancreatitis findings and biliary tree mildly dilated but consistent with post cholecystectomy changes. Abdominal pain improving and patient tolerating full liquid diet by afternoon of 01/27. Supplemental IV fluids discontinued. Pain control with Tylenol, oxycodone and IV morphine as needed. Unclear etiology for acute pancreatitis, could be related to home empagliflozin. Unclear if further imaging is needed to elucidate if there is concern for retained bile duct stones causing pancreatitis, appreciate GI recommendations. 2. Incidental bilateral adrenal nodules ? Bilateral adrenal nodules, 2.6 cm on right and 2.1 cm on left noted on abdominal CT. Nodules also noted on MRCP, appear benign. Outpatient monitoring. Chronic medical conditions: ? Obesity: BMI 36 on admit. Complicates hospital course, care and prognosis. ? Type 2 diabetes mellitus with neuropathy: Home regimen of empagliflozin and metformin. Held empagliflozin on admission given concern it could be contributing to acute pancreatitis. Will hold home metformin as well. Sliding scale insulin with meals while inpatient. Continue home gabapentin. ? RA: Not in acute flare. Continue home hydroxychloroquine and leflunomide. ? Hypothyroidism: Continue home Synthroid. ? Hypertension: Continue home amlodipine, holding home losartan for now, restart as able. ? GERD: Continue home famotidine. DVT prophylaxis: Lovenox CODE STATUS: Full code, verified Expected disposition: Home, 1 to 2 days Total clinical time spent by myself addressing the patient's medical issues, reviewing all the data, and collaborating with patient's care team: 35 minutes. Charges/Coding Visit Charges Inpatient E&M: 34216 Subs Hosp L2
[2024-01-28] MEDS: Hydroxychloroquine 200 MG Tablet PO ×2 (11:27→16:26)
[2024-01-28] MEDS: Enoxaparin 40 MG/0.4 ML Syringe SC (11:28)
[2024-01-28] MEDS: amLODIPine 10 MG Tablet PO (11:28)
[2024-01-28] MEDS: Leflunomide 10 MG TABLET 20 MG PO (11:28)
[2024-01-28] MEDS: Loratadine 10 MG Tablet PO (11:28)
[2024-01-28] MEDS: Famotidine 20 MG Tablet PO (11:28)
[2024-01-28] MEDS: Ketorolac 15 MG/ML Vial IV (11:33)
[2024-01-28 11:56] LABS: Bedside Glucose 106 mg/dL (74-106)
[2024-01-28] MEDS: oxyCODONE 5 MG Tablet PO ×2 (12:23→21:26)
--- NOTE | 2024-01-28 16:25 | EX.PCM.CON.G ---
HPI Consult Data Date of Consult: 01/28/24 HPI Narrative Reason for Consultation: Pancreatitis HPI Narrative: CAITLIN OSBORNE, is a 58 F who presented to the ED with abdominal pain. She has a past medical history of rheumatoid arthritis on hydrochloriquine, leflunomide and prednisone. She also takes ibuprofen as needed for pain associated with rheumatoid arthritis. About a year ago she was diagnosed with diabetes mellitus and has been on metformin 1000 mg twice daily and Jardiance. She was diagnosed with pancreatitis about 10 years ago from unknown cause. She had not had any more episodes of pancreatitis since then. 10 years prior to that she underwent an elective cholecystectomy for chronic cholecystitis. She says her diabetes been under control. She has been on prednisone recently. Approximately 3 days ago she developed worsening abdominal pain with nausea and vomiting that required her to come to the hospital about 2:00 this morning. In the ED she was discovered to have normal LFTs. CBC showed hyper concentration with a hemoglobin of 15.8. Platelet count was normal and white blood cell count was normal. Her BUN and creatinine were normal. She got a CT scan abdomen pelvis that showed steatosis in the liver but normal pancreas. An MRCP was ordered and it showed no significant ductal dilation and no abnormalities in the pancreas such as pancreatic divisum or signs or symptoms of chronic pancreatitis. She has been on a clear liquid diet and was started on famotidine. She actually is feeling a little bit better. [facility]LY [facility] Medical History Loss of hearing Wears glasses Wears dentures History of steroid therapy Thyroid disease DVT (deep venous thrombosis) High cholesterol Back pain Vertigo Heartburn Smoker Shortness of breath on exertion Leg cramps Hypertension Cardiology follow-up encounter History of Holter monitoring History of echocardiogram History of stress test Lightheadedness Near syncope Mixed hyperlipidemia History of left heart catheterization (LHC) (~03/24/22) Abnormal cardiac CT angiography Tachycardia Essential hypertension Kyphosis Rheumatoid arthritis Home Medications ?Medication ?Instructions ?Recorded ?Last Taken ?Type meclizine 25 mg tablet 25 mg PO TID PRN dizziness 12/16/21 Unknown History amlodipine 10 mg tablet 10 mg PO DAILY 01/01/22 04/15/22 History hydroxychloroquine 200 mg tablet 200 mg PO BID 01/01/22 Unknown History losartan 100 mg tablet 100 mg PO DAILY 01/01/22 04/15/22 History famotidine 20 mg tablet 20 mg PO DAILY 09/16/22 Unknown History ibuprofen 200 mg tablet (Advil) 200 mg PO Q6H 09/16/22 Unknown History levothyroxine 150 mcg tablet See Rx Instructions .Route 11/02/22 Unknown Rx .COMPLEX #90 tabs metformin 1,000 mg tablet 1,000 mg PO BID 11/16/22 Unknown History prednisone 10 mg tablet 10 mg PO DAILY PRN ARTHRITIS FLARE 11/16/22 Unknown History UP atorvastatin 20 mg tablet See Rx Instructions .Route 05/05/23 Unknown Rx .COMPLEX #90 tabs cetirizine 10 mg tablet 10 mg PO DAILY 01/28/24 Unknown History empagliflozin 25 mg tablet 25 mg PO DAILY 01/28/24 Unknown History (Jardiance) gabapentin 100 mg capsule 100 mg PO TID 01/28/24 Unknown History leflunomide 20 mg tablet 20 mg PO DAILY 01/28/24 Unknown History Allergy/AdvReac Type Severity Reaction Status Date / Time Sulfa (Sulfonamide Allergy Unknown Hives Verified 01/28/24 02:31 Antibiotics) Family History Sister Breast cancer Hypertension Diabetes Sister Myocardial infarction, Onset Age: 30 Surgical History History of total thyroidectomy History of cardiac catheterization (~02/2022) S/P thyroid biopsy (~02/2022) History of laparoscopic cholecystectomy History of appendectomy Social History Smoking Status: Current every day smoker tobacco type: cigarettes Tobacco: How many years used: 30 second hand exposure: Yes alcohol intake: current alcohol intake frequency: holidays/special occasions only substance use type: does not use caffeine: Yes Type: coffee Number of servings: 3 seatbelt use: always ROS ROS Narrative Some nausea but no vomiting. All review of systems were negative except as mentioned above in the history of present illness and the other review of systems. Physical Exam Narrative - Physical Exam General: Alert, Oriented x3, Cooperative HEENT: Atraumatic, PERRLA, EOMI, Normocephalic Oral: Moist Mucosa, No Gingival or Mucosal Lesions/ Ulcerations Neck: Supple, No JVD, Negative Carotid Bruits Lungs: Clear to auscultation, Normal air movement Cardiovascular: Regular rate, Normal S1, Normal S2, No murmurs Abdomen: Bowel Sounds Present, Soft, tender in the. The right upper quadrant but also extending left lower quadrant as well. Obese., Non-Distended, No Hepato-splenomegaly Extremities: No clubbing, No cyanosis, No edema, Capillary Refill Less than 3 Seconds Skin: No rashes, No breakdown Musculoskeletal: No Tenderness to Palpation of Joints or Extremities Neurological: Neuro grossly intact Psych/Mental Status: Normal Affect, Appropriate Lab / Micro Data 01/28/24 02:35 01/28/24 02:35 Labs: Laboratory Results - last 24 hr 01/28/24 02:35: WBC 10.4, RBC 5.63 H, Hgb 15.8 H, Hct 49.3 H, MCV 87.6, MCH 28.1, MCHC 32.0, RDW Std Deviation 47.0 H, RDW Coeff of Layla 14.8 H, Plt Count 200, MPV 10.0, Immature Gran % (Auto) 0.300, Neut % (Auto) 65.4, Lymph % (Auto) 23.0, [place] % (Auto) 7.5, Eos % (Auto) 3.1, Baso % (Auto) 0.7, Absolute Neuts (auto) 6.8, Absolute Lymphs (auto) 2.40, Nucleated RBC % 0, Sodium 138, Potassium 3.6, Chloride 107, Carbon Dioxide 25.0, Anion Gap 6, BUN 21 H, Creatinine 0.72, Estim Creat Clear Calc 90.98, Est GFR (MDRD) Af Amer 106, Est GFR (MDRD) Non-Af 88, BUN/Creatinine Ratio 29.2 H, Glucose 178 H, Calcium 9.3, Total Bilirubin 0.40, Direct Bilirubin 0.11, AST 12 L, ALT 15, Alkaline Phosphatase 99, Total Protein 7.9, Albumin 3.5, Globulin 4.4 H, Lipase > 250 H 01/28/24 06:28: POC Glucose 141 H 01/28/24 11:37: POC Glucose 106 Imaging Radiology Impression Abdomen/Pelvis CT 01/28/24 02:38 IMPRESSION: No acute findings. Prominent biliary tree is likely postsurgical, cholecystectomy. Lab correlation and/or ultrasound or MRI/MRCP may be helpful as clinically indicated. Bilateral adrenal nodules indeterminate. Further evaluation CT or MRI adrenal protocol suggested. Colonic diverticulosis without evidence of acute diverticulitis. Electronically Signed: Selena Khan MD at 4:25 EDT , MRCP 01/28/24 05:08 IMPRESSION: 1. No evidence of acute pancreatitis. 2. As above. Electronically Signed: Den Paiz MD at 12:57 EDT , Assessment & Plan Assessment/Plan (1) Abdominal pain: (2) Acute pancreatitis: PLAN: Plan 58-year-old with rheumatoid arthritis on medical therapy including DMARDs, prednisone and ibuprofen who presents with acute onset abdominal pain and discovered to have increased lipase. Increased lipase level is the serologic hallmark of the diagnosis of acute pancreatitis but is not specific to the disease. Hyperlipasemia can be detected in various diseases associated with lipase leakage due to inflammation of the surrounding abdominal organs of the pancreas or reduced renal clearance and/or hepatic metabolism. 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 I think she likely has either gastritis or gastric ulcer as you can have some lipase reduced from the gastric mucosa.It is more likely secondary to her medicines in the setting of possible delayed gastric emptying from diabetes that resulting in her symptoms. I would recommend her to be on a PPI twice a day for approximately 60 days then titrated down to once a day. I would also start her on an antisecretory medicine such as sulcrafate because she has to continue on her rheumatoid arthritis medicines that delayed gastric emptying and delayed gastric healing. She can also get a stool test for H. pylori and if she is not better she would benefit from an upper endoscopy. Charges/Coding Visit Charges Inpatient E&M: 09370 Init Hosp L3
[2024-01-28 16:55] LABS: Bedside Glucose 106 mg/dL (74-106)
[2024-01-28] MEDS: Acetaminophen 325 MG Tablet 650 MG PO (19:56)
[2024-01-28 21:05] LABS: Bedside Glucose 106 mg/dL (74-106)
[2024-01-29] MEDS: oxyCODONE 5 MG Tablet PO ×3 (03:54→21:41)
[2024-01-29 03:58] VITALS: BP 132/78; PULSE 80; RESP 17; TEMP 37.1; O2SAT 96
[2024-01-29 06:25] LABS: Absolute Lymphocyte Count 1.14 X10^3/uL (0.83-4.51); Absolute Neutrophil Count 4.5 X10^3/uL (2.0-7.7); Basophil# 0.03 X10^3/uL; Basophil% 0.5 % (0-1); Eosinophil# 0.24 X10^3/uL; Eosinophils% 3.8 % (0-5); Hematocrit 44.4 % (37-47); Hemoglobin 13.9 g/dL (12.0-15.0); Lymphocyte # 1.14 X10^3/ul (0.83-4.51); Lymphocyte % 17.9 % (19-41); Mean Corp Hgb Conc 31.3 g/dL (32-36); Mean Corpuscular Hgb 27.7 pg (27.0-32.0); Mean Corpuscular Volume 88.6 fL (81-99); Mean Platelet Vol. 9.8 fl (6.2-12.0); Monocyte# 0.44 X10^3/uL; Monocyte% 6.9 % (0-10); NRBC Flagged by Analyzer 0 % (0-5); Neutrophil # 4.51 X10^3/uL (2.7-7.7); Neutrophil % 70.7 % (47-70); Platelet Count 164 K/mm3 (150-450); RBC Distribution Width CV 14.6 % (11.6-14.6); RBC Distribution Width SD 46.6 fl (35.1-43.9); Red Blood Count 5.01 M/mm3 (4.2-5.4); White Blood Count 6.4 K/mm3 (4.4-11.0)
[2024-01-29 06:42] LABS: ALB/GLOB Ratio 0.7 RATIO (0.9-2.4); AST(SGOT) 13 U/L (15-37); Alanine Aminotransfer ALT/SGPT 13 U/L (13-56); Albumin, Serum 2.8 g/dL (3.2-5.0); Alkaline Phosphatase 82 U/L (45-117); Anion Gap 5 (5-15); BUN 14 mg/dL (7-18); BUN/Creat Ratio 31.2 RATIO (10-20); Calcium,Total 8.7 mg/dL (8.5-10.1); Chloride 110 mmol/L (98-107); Creatinine, Serum 0.45 mg/dL (0.55-1.02); EST Glomerular Filtration Rate 152 mL/min (>60); Est Glom Filt Rate - Afr Amer 183 mL/min (>60); Estimated Creatinine Clearance 145.23 ml/min; Globulin 3.9 g/dL (2.2-4.2); Glucose 127 mg/dL (74-106); Potassium 3.6 mmol/L (3.5-5.1); Protein, Total 6.7 g/dL (6.4-8.2); Sodium Level 139 mmol/L (136-145)
[2024-01-29] MEDS: Gabapentin 100 MG Capsule PO ×3 (06:46→21:36)
[2024-01-29] MEDS: Levothyroxine 150 MCG Tablet PO (06:46)
[2024-01-29] MEDS: Acetaminophen 325 MG Tablet 650 MG PO (06:48)
[2024-01-29 07:05] LABS: Bedside Glucose 98 mg/dL (74-106)
[2024-01-29 08:16] VITALS: BP 143/96; PULSE 78; RESP 18; TEMP 36.6; O2SAT 94
[2024-01-29] MEDS: Sucralfate 1 GM Tablet PO ×4 (08:18→21:37)
[2024-01-29] MEDS: Pantoprazole Sodium 40 MG Tablet PO ×2 (10:13→21:37)
[2024-01-29] MEDS: amLODIPine 10 MG Tablet PO (10:13)
[2024-01-29] MEDS: Loratadine 10 MG Tablet PO (10:13)
[2024-01-29] MEDS: Hydroxychloroquine 200 MG Tablet PO ×2 (10:13→17:50)
[2024-01-29] MEDS: Enoxaparin 40 MG/0.4 ML Syringe SC (10:13)
[2024-01-29] MEDS: Leflunomide 10 MG TABLET 20 MG PO (10:13)
--- NOTE | 2024-01-29 10:28 | PN.HOSP_ITS ---
Reason for Visit Reason for Visit: Diagnoses Disorder of adrenal gland, unspecified (01/28/24) Acute pancreatitis without necrosis or infection, unspecified (01/28/24) Unspecified abdominal pain (01/28/24) Subjective Subjective No acute events overnight. Saw patient at bedside this morning. Patient was laying comfortably in bed, in no acute distress. She did report continued abdominal discomfort, similar to yesterday. She had not eaten yet this morning when I saw her. Friend saw her yesterday afternoon and recommended that she start a PPI twice daily and sucralfate with meals in case of possible gastritis or gastric ulcer causing her abdominal pain and elevated lipase. These medications were started today and patient's diet was increased to regular diet; patient agreeable to seeing how she does with these changes today. No other acute concerns at this time. Objective Data Objective Data Vital Signs: Vital Signs Temp Pulse Resp BP Pulse Ox O2 Del Method O2 Flow Rate 97.8 F 78 18 143/96 H 94 Room Air 2 01/29/24 08:16 01/29/24 08:16 01/29/24 08:16 01/29/24 08:16 01/29/24 08:16 01/29/24 08:16 01/28/24 20:18 Oxygen Flow Rate (L/min) 2 Oxygen Delivery Method Room Air Weight: 94.4 kg Body Mass Index (BMI) 36.8 Intake & Output: Intake and Output for Last 24 Hours 01/27/24 01/28/24 01/29/24 23:59 23:59 23:59 Intake Total 1948.58 / 194.58 60 / 60 Balance 1948.58 / 1948.58 60 / 60 Lab / Micro Data 01/29/24 05:34 01/29/24 05:34 Labs: Laboratory Results - last 24 hr 01/28/24 11:37: POC Glucose 106 01/28/24 16:25: POC Glucose 106 01/28/24 20:46: POC Glucose 106 01/29/24 05:34: WBC 6.4, RBC 5.01, Hgb 13.9, Hct 44.4, MCV 88.6, MCH 27.7, MCHC 31.3 L, RDW Std Deviation 46.6 H, RDW Coeff of Layla 14.6, Plt Count 164, MPV 9.8, Immature Gran % (Auto) 0.200, Neut % (Auto) 70.7 H, Lymph % (Auto) 17.9 L, [place] % (Auto) 6.9, Eos % (Auto) 3.8, Baso % (Auto) 0.5, Absolute Neuts (auto) 4.5, Absolute Lymphs (auto) 1.14, Nucleated RBC % 0, Sodium 139, Potassium 3.6, C hloride 110 H, Carbon Dioxide 24.0, Anion Gap 5, BUN 14, Creatinine 0.45 L, Estim Creat Clear Calc 145.23, Est GFR (MDRD) Af Amer 183, Est GFR (MDRD) Non-Af 152, BUN/Creatinine Ratio 31.2 H, Glucose 127 H, Calcium 8.7, Total Bilirubin 0.30, AST 13 L, ALT 13, Alkaline Phosphatase 82, Total Protein 6.7, Albumin 2.8 L, Globulin 3.9, Albumin/Globulin Ratio 0.7 L 01/29/24 06:44: POC Glucose 98 Radiography Diagnostic Testing: Radiology Impression MRCP 01/28/24 05:08 IMPRESSION: 1. No evidence of acute pancreatitis. 2. As above. Electronically Signed: Den Paiz MD at 12:57 EDT , Physical Exam Const alert, oriented x3 and no apparent distress Constitutional Narrative: Pleasant middle-age female, obese, mildly fatigued appearing, otherwise laying comfortably in bed, conversing normally, no acute distress. Stable. General Appearance: cooperative and comfortable HEENT normocephalic, head/scalp atraumatic, hearing grossly normal bilaterally, nasal mucous membranes and turbinates normal and moist oral mucous membranes Eyes PERRL, EOMs intact bilaterally and conjunctivae normal Neck full ROM Chest inspection of chest normal Resp normal respiratory effort, normal air movement, no use of accessory muscles and clear to auscultation bilaterally Cardio regular rate, regular rhythm, no murmurs and peripheral pulses 2+ throughout GI GI Narrative: Mild tenderness to palpation in epigastric area. Otherwise abdomen soft and nondistended and patient with normal bowel sounds. Stable. Back/Spine normal ROM Extremity normal to inspection, full ROM and no pedal edema Skin no rashes or lesions noted Neuro no focal motor deficits and no sensory deficits noted Speech: speech normal Psych mental status grossly normal Assessment & Plan Assessment/Plan (1) Acute pancreatitis: (2) Adrenal nodule: PLAN: Plan Patient is a 58-year-old female who presented [facility] ED on 01/28/2024 with worsening abdominal pain. 1. Concern for acute pancreatitis versus gastritis/PUD, history of cholecystectomy ? GI following. Met criteria for acute pancreatitis on admission with abdominal pain and lipase greater than 250. However, CT abdomen pelvis on admit with prominent biliary tree, no acute pancreatitis findings, otherwise unremarkable. MRCP also showed no pancreatitis findings and biliary tree mildly dilated but consistent with post cholecystectomy changes. Per GI, low concern for acute pancreatitis but have higher concern for gastritis or peptic ulcer disease causing abdominal pain and elevated lipase. Started p.o. PPI twice daily and sucralfate with meals on 01/28. Was tolerating full liquid diet without issue on 01/27, advance to regular diet on 01/28. Continue pain control with Tylenol and oxycodone as needed. If patient shows improvement with these treatments, will plan for discharge home in the next 1 to 2 days. If no improvement, may need EGD for further evaluation. Will continue to monitor. 2. Incidental bilateral adrenal nodules ? Bilateral adrenal nodules, 2.6 cm on right and 2.1 cm on left noted on abdominal CT. Nodules also noted on MRCP, appear benign. Outpatient monitoring. Chronic medical conditions: ? Obesity: BMI 36 on admit. Complicates hospital course, care and prognosis. ? Type 2 diabetes mellitus with neuropathy: Home regimen of empagliflozin and metformin. Held empagliflozin on admission given concern it could be contributing to abdominal concerns above. Will hold home metformin as well. Sliding scale insulin with meals while inpatient. Continue home gabapentin. ? RA: Not in acute flare. Continue home hydroxychloroquine and leflunomide. ? Hypothyroidism: Continue home Synthroid. ? Hypertension: Continue home amlodipine, holding home losartan for now, restart as able. ? GERD: Continue home famotidine. DVT prophylaxis: Lovenox CODE STATUS: Full code, verified Expected disposition: Home, 1 to 2 days Total clinical time spent by myself addressing the patient's medical issues, reviewing all the data, and collaborating with patient's care team: 35 minutes. Charges/Coding Visit Charges Inpatient E&M: 78161 Subs Hosp L2
--- NOTE | 2024-01-29 11:34 | EX.PCM.PN.GI ---
Subjective Subjective Patient states that her abdominal pain is little better. She denies any nausea, chest pain or shortness of breath. Objective Data Objective Data Vital Signs: Vital Signs Temp Pulse Resp BP Pulse Ox O2 Del Method O2 Flow Rate 97.8 F 78 18 143/96 H 94 Room Air 2 01/29/24 08:16 01/29/24 08:16 01/29/24 08:16 01/29/24 08:16 01/29/24 08:16 01/29/24 08:16 01/28/24 20:18 Oxygen Flow Rate (L/min) 2 Oxygen Delivery Method Room Air Weight: 208 lb 1.862 oz Body Mass Index (BMI) 36.8 Intake & Output: Intake and Output for Last 24 Hours 01/27/24 01/28/24 01/29/24 23:59 23:59 23:59 Intake Total 1948.58 / 194.58 60 / 60 Balance 1948.58 / 1948.58 60 / 60 Lab / Micro Data 01/29/24 05:34 01/29/24 05:34 Labs: Laboratory Results - last 24 hr 01/28/24 11:37: POC Glucose 106 01/28/24 16:25: POC Glucose 106 01/28/24 20:46: POC Glucose 106 01/29/24 05:34: WBC 6.4, RBC 5.01, Hgb 13.9, Hct 44.4, MCV 88.6, MCH 27.7, MCHC 31.3 L, RDW Std Deviation 46.6 H, RDW Coeff of Layla 14.6, Plt Count 164, MPV 9.8, Immature Gran % (Auto) 0.200, Neut % (Auto) 70.7 H, Lymph % (Auto) 17.9 L, [place] % (Auto) 6.9, Eos % (Auto) 3.8, Baso % (Auto) 0.5, Absolute Neuts (auto) 4.5, Absolute Lymphs (auto) 1.14, Nucleated RBC % 0, Sodium 139, Potassium 3.6, Chloride 110 H, Carbon Dioxide 24.0, Anion Gap 5, BUN 14, Creatinine 0.45 L, Estim Creat Clear Calc 145.23, Est GFR (MDRD) Af Amer 183, Est GFR (MDRD) Non-Af 152, BUN/Creatinine Ratio 31.2 H, Glucose 127 H, Calcium 8.7, Total Bilirubin 0.30, AST 13 L, ALT 13, Alkaline Phosphatase 82, Total Protein 6.7, Albumin 2.8 L, Globulin 3.9, Albumin/Globulin Ratio 0.7 L 01/29/24 06:44: POC Glucose 98 Radiography Diagnostic Testing: Radiology Impression MRCP 01/28/24 05:08 IMPRESSION: 1. No evidence of acute pancreatitis. 2. As above. Electronically Signed: Den Paiz MD at 12:57 EDT , Physical Exam Narrative - Physical Exam General: Alert, Oriented x3, Cooperative HEENT: Atraumatic, PERRLA, EOMI, Normocephalic Oral: Moist Mucosa, No Gingival or Mucosal Lesions/ Ulcerations Neck: Supple, No JVD, Negative Carotid Bruits Lungs: Clear to auscultation, Normal air movement Cardiovascular: Regular rate, Normal S1, Normal S2, No murmurs Abdomen: Bowel Sounds Present, Soft, tender in the. The right upper quadrant but also extending left lower quadrant as well. Obese., Non-Distended, No Hepato-splenomegaly Extremities: No clubbing, No cyanosis, No edema, Capillary Refill Less than 3 Seconds Skin: No rashes, No breakdown Musculoskeletal: No Tenderness to Palpation of Joints or Extremities Neurological: Neuro grossly intact Psych/Mental Status: Normal Affect, Appropriate Assessment & Plan Assessment/Plan (1) Abdominal pain: (2) Acute pancreatitis: PLAN: Plan 58-year-old with rheumatoid arthritis on medical therapy including DMARDs, prednisone and ibuprofen who presents with acute onset abdominal pain and discovered to have increased lipase. Increased lipase level is the serologic hallmark of the diagnosis of acute pancreatitis but is not specific to the disease. Hyperlipasemia can be detected in various diseases associated with lipase leakage due to inflammation of the surrounding abdominal organs of the pancreas or reduced renal clearance and/or hepatic metabolism. 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 I think she likely has either gastritis or gastric ulcer as you can have some lipase reduced from the gastric mucosa.It is more likely secondary to her medicines in the setting of possible delayed gastric emptying from diabetes that resulting in her symptoms. I would recommend her to be on a PPI twice a day for approximately 60 days then titrated down to once a day. I would also start her on an antisecretory medicine such as sulcrafate because she has to continue on her rheumatoid arthritis medicines that delayed gastric emptying and delayed gastric healing. She can also get a stool test for H. pylori and if she is not better she would benefit from an upper endoscopy. 01/29/2024-she is tolerating medicine without any problem. Recommend to advance diet as tolerated. If she cannot tolerate a diet despite the use of antisecretory and antiacid medicines and she is still here on Wednesday then we can do an upper endoscopy.? Charges/Coding Visit Charges Inpatient E&M: 57373 Subs Hosp L3
[2024-01-29 12:06] LABS: Bedside Glucose 116 mg/dL (74-106)
[2024-01-29 14:40] VITALS: BP 144/76; PULSE 84; RESP 16; TEMP 36.7; O2SAT 94
[2024-01-29 17:02] LABS: Bedside Glucose 109 mg/dL (74-106)
[2024-01-29 19:55] VITALS: BP 123/69; PULSE 87; RESP 18; TEMP 37; O2SAT 97
[2024-01-29] MEDS: 0.9% Saline Lock 10 ML Syringe IV (21:37)
[2024-01-30] MEDS: Acetaminophen 325 MG Tablet 650 MG PO ×2 (02:45→14:05)
[2024-01-30 02:49] VITALS: BP 125/76; PULSE 89; RESP 18; TEMP 36.9; O2SAT 97
[2024-01-30] MEDS: Levothyroxine 150 MCG Tablet PO (06:13)
[2024-01-30] MEDS: Sucralfate 1 GM Tablet PO ×4 (06:13→22:04)
[2024-01-30] MEDS: Gabapentin 100 MG Capsule PO ×3 (06:13→22:04)
[2024-01-30 07:11] LABS: Bedside Glucose 109 mg/dL (74-106)
[2024-01-30 08:16] VITALS: BP 128/79; PULSE 80; RESP 18; TEMP 36.6; O2SAT 96
[2024-01-30] MEDS: Senna Tablet 1 TABLET PO ×2 (08:24→22:05)
[2024-01-30] MEDS: Hydroxychloroquine 200 MG Tablet PO ×2 (08:24→16:51)
[2024-01-30] MEDS: amLODIPine 10 MG Tablet PO (08:24)
[2024-01-30] MEDS: Pantoprazole Sodium 40 MG Tablet PO ×2 (08:24→22:04)
[2024-01-30] MEDS: Loratadine 10 MG Tablet PO (08:24)
[2024-01-30] MEDS: Leflunomide 10 MG TABLET 20 MG PO (08:25)
[2024-01-30] MEDS: Enoxaparin 40 MG/0.4 ML Syringe SC (08:25)
[2024-01-30 11:40] LABS: Bedside Glucose 126 mg/dL (74-106)
--- NOTE | 2024-01-30 11:46 | PN.HOSP_ITS ---
Reason for Visit Reason for Visit: Diagnoses Disorder of adrenal gland, unspecified (01/28/24) Acute pancreatitis without necrosis or infection, unspecified (01/28/24) Unspecified abdominal pain (01/28/24) Subjective Subjective No acute events overnight. Saw patient in bed this morning. Patient reported feeling slightly better this morning but noted that the doses of super fate before meals and PPI did not seem to help much at all with her meals yesterday. She tolerated some breakfast this morning well but that was the best she had tolerated any food thus far. She was nervous about being discharged today and noted that she would rather have the upper scope done tomorrow while she is here to make sure there is nothing else fixable prior to discharge for her. No other acute concerns today. Objective Data Objective Data Vital Signs: Vital Signs Temp Pulse Resp BP Pulse Ox O2 Del Method O2 Flow Rate 97.8 F 80 18 128/79 H 96 Room Air 2 01/30/24 08:16 01/30/24 08:16 01/30/24 08:16 01/30/24 08:16 01/30/24 08:16 01/30/24 08:16 01/28/24 20:18 Oxygen Flow Rate (L/min) 2 Oxygen Delivery Method Room Air Weight: 94.4 kg Body Mass Index (BMI) 36.8 Intake & Output: Intake and Output for Last 24 Hours 01/28/24 01/29/24 01/30/24 23:59 23:59 23:59 Intake Total 1949.58 / 1949.58 1160 / 1560 800 / 800 Balance 1949.58 / 1949.58 1160 / 1560 800 / 800 Lab / Micro Data 01/29/24 05:34 01/29/24 05:34 Labs: Laboratory Results - last 24 hr 01/29/24 11:47: POC Glucose 116 H 01/29/24 16:40: POC Glucose 109 H 01/30/24 06:15: POC Glucose 109 H 01/30/24 11:13: POC Glucose 126 H Physical Exam Const alert, oriented x3 and no apparent distress Constitutional Narrative: Pleasant middle-age female, obese, mildly fatigued appearing, otherwise laying comfortably in bed, conversing normally, no acute distress. Stable. General Appearance: cooperative and comfortable HEENT normocephalic, head/scalp atraumatic, hearing grossly normal bilaterally, nasal mucous membranes and turbinates normal and moist oral mucous membranes Eyes PERRL, EOMs intact bilaterally and conjunctivae normal Neck full ROM Chest inspection of chest normal Resp normal respiratory effort, normal air movement, no use of accessory muscles and clear to auscultation bilaterally Cardio regular rate, regular rhythm, no murmurs and peripheral pulses 2+ throughout GI GI Narrative: Mild tenderness to palpation in epigastric area. Otherwise abdomen soft and nondistended and patient with normal bowel sounds. Stable. Back/Spine normal ROM Extremity normal to inspection, full ROM and no pedal edema Skin no rashes or lesions noted Neuro no focal motor deficits and no sensory deficits noted Speech: speech normal Psych mental status grossly normal Assessment & Plan Assessment/Plan (1) Acute pancreatitis: (2) Adrenal nodule: PLAN: Plan Patient is a 58-year-old female who presented [facility] ED on 01/28/2024 with worsening abdominal pain. 1. Concern for acute pancreatitis versus gastritis/PUD, history of cholecystectomy ? GI following. Met criteria for acute pancreatitis on admission with abdominal pain and lipase greater than 250. However, CT abdomen pelvis on admit with prominent biliary tree, no acute pancreatitis findings, otherwise unremarkable. MRCP also showed no pancreatitis findings and biliary tree mildly dilated but consistent with post cholecystectomy changes. Per GI, low concern for acute pancreatitis but have higher concern for gastritis or peptic ulcer disease causing abdominal pain and elevated lipase. Started p.o. PPI twice daily and sucralfate with meals on 01/28. Was tolerating full liquid diet without issue on 01/27, advance to regular diet on 01/28. Continue pain control with Tylenol and oxycodone as needed. Patient unfortunately has not shown significant improvement to this point. Will plan for EGD tomorrow for further evaluation, n.p.o. at midnight. Continue sucralfate and PPI. 2. Incidental bilateral adrenal nodules ? Bilateral adrenal nodules, 2.6 cm on right and 2.1 cm on left noted on abdominal CT. Nodules also noted on MRCP, appear benign. Outpatient monitoring. Chronic medical conditions: ? Obesity: BMI 36 on admit. Complicates hospital course, care and prognosis. ? Type 2 diabetes mellitus with neuropathy: Home regimen of empagliflozin and metformin. Held empagliflozin on admission given concern it could be contributing to abdominal concerns above. Will hold home metformin as well. Sliding scale insulin with meals while inpatient. Continue home gabapentin. ? RA: Not in acute flare. Continue home hydroxychloroquine and leflunomide. ? Hypothyroidism: Continue home Synthroid. ? Hypertension: Continue home amlodipine, holding home losartan for now, restart as able. ? GERD: Continue home famotidine. DVT prophylaxis: Lovenox CODE STATUS: Full code, verified Expected disposition: Home, 1 to 2 days Total clinical time spent by myself addressing the patient's medical issues, reviewing all the data, and collaborating with patient's care team: 35 minutes. Charges/Coding Visit Charges Inpatient E&M: 20020 Subs Hosp L2
[2024-01-30 14:35] VITALS: BP 143/77; PULSE 78; RESP 18; TEMP 37.1; O2SAT 99
[2024-01-30 16:42] LABS: Bedside Glucose 116 mg/dL (74-106)
[2024-01-30 21:55] VITALS: BP 119/75; PULSE 84; RESP 18; TEMP 36.6; O2SAT 96
[2024-01-30] MEDS: Ondansetron 4 MG/2 ML Vial IV (22:05)
[2024-01-30] MEDS: oxyCODONE 5 MG Tablet PO (22:05)
[2024-01-30] MEDS: 0.9% Saline Lock 10 ML Syringe IV (22:06)
[2024-01-31] VITALS (10 sets, daily range): BP systolic 116–138; BP diastolic 71–85; PULSE 74–85; RESP 14–18; TEMP 36.1–36.7; O2SAT 92–96; BMI 36.8
[2024-01-31 01:26] LABS: Bedside Glucose 115 mg/dL (74-106)
[2024-01-31 01:48] LABS: Thyroid Stim Hormone (TSH) 0.16 uIU/mL (0.358-3.74)
[2024-01-31 07:14] LABS: Bedside Glucose 126 mg/dL (74-106)
[2024-01-31] MEDS: Pantoprazole Sodium 40 MG Tablet PO (10:17)
[2024-01-31 10:50] LABS: Bedside Glucose 118 mg/dL (74-106)
[2024-01-31] MEDS: Lactated Ringers 1,000 ML 15 ML IV (11:13)
--- NOTE | 2024-01-31 11:33 | PRE.ANES_ITS ---
ASA Classification* ASA Classification ASA Classification: 3 Assessment & Plan Anesthesia* Anesthesia Assessment Anesthesia Assessment: Discussed sedation and/or anesthesia options, risks, benefits, and alternatives with patient/parents/legal guardian/POA. Questions invited. The patient/parents/legal guardian/POA seems to understand and agrees to proceed with anesthesia plan. Reviewed the physical assessment, medical history, allergy history and patient home medications list prior to surgery/procedure/anesthetic and documented any changes. Performed airway and anesthesia risk assessments. Anesthesia Type Anesthesia Type: MAC (*see written pre anesthesia record for full assessment) Anesthesia Focused Assessment* Temperature: 98.1 F Pulse Rate: 75 Blood Pressure: 121/83 Respiratory Rate: 18 Pulse Ox: 96 Airway Assessment Mouth opens: >3 cm Mallampati Score: III Focused Labs Anesthesia Preop lab: CBC WBC 6.4 K/mm3 (4.4-11.0) 01/29/24 05:34 RBC 5.01 M/mm3 (4.2-5.4) 01/29/24 05:34 Hgb 13.9 g/dL (12.0-15.0) 01/29/24 05:34 Hct 44.4 % (37-47) 01/29/24 05:34 Plt Count 164 K/mm3 (150-450) 01/29/24 05:34 CHEMISTRY Potassium 3.6 mmol/L (3.5-5.1) 01/29/24 05:34 Sodium 139 mmol/L (136-145) 01/29/24 05:34 Magnesium 2.2 mg/dL (1.6-2.6) 04/11/22 09:20 Phosphorus 2.4 mg/dL (2.5-4.9) L 04/11/22 09:20 BUN 14 mg/dL (7-18) 01/29/24 05:34 Creatinine 0.45 mg/dL (0.55-1.02) L 01/29/24 05:34 Glucose 127 mg/dL (74-106) H 01/29/24 05:34 POC Glucose 118 mg/dL (74-106) H 01/31/24 10:23 TSH 0.16 uIU/mL (0.358-3.74) L 01/29/24 05:34 COAG PT 12.4 SECONDS (11.7-14.9) 03/17/22 14:19 Pre-Assessment Diagnosis/Proposed Procedure Planned Operative Procedure(s): egd Anesthesia History 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 When Was Last Pacemaker Check QUESTION #4 FULL TEXT: You/Your Family Experience fever (hyperthermia) with Anesthesia Last Oral Intake Last Oral intake: Last Oral Intake NPO since 00:00 01/31/24 10:18 Meds taken in AM with sips of Yes 01/31/24 10:18 water? 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 Has anyone observed you stop No 01/28/24 05:15 breathing during sleep? STOP Results Negative 01/28/24 05:15 QUESTION #5 FULL TEXT : Do you snore loudly (louder than talking or can be heard through closed doors)? 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 Specify any problems Hx of Preganancy in last 3 No 01/28/24 05:15 Months Nurse Filling Out Transfusion DREDICK 01/28/24 05:15 & Questions: Date: 01/28/24 01/28/24 05:15 Time: 05:16 01/28/24 05:15 Patient unable to answer at this time (ie. confused, unrespo /Reproduction History /Reproductive History - pick and shovel worker: /Reproductive Hx- pick and shovel worker Hx Now No 01/30/24 21:21 Gestational Age (in weeks): EDC: Hx Hx Para Hx Section SAB No 01/30/24 21:21 Active Medications Active Medications: Current Medications Generic Name Dose Route Start Last Admin Trade Name Freq PRN Reason Stop Dose Admin Acetaminophen 650 mg 01/28/24 14:59 01/30/24 14:05 Acetaminophen 325 Mg Tablet PO 650 mg Q6H PRN PRN Administration Pain 1-10 or Fever Amlodipine Besylate 10 mg 01/28/24 10:00 01/31/24 10:00 Amlodipine 10 Mg Tablet PO Not Given DAILY [facility] Protocol Enoxaparin Sodium 40 mg 01/28/24 10:00 01/31/24 09:59 Enoxaparin 40 Mg/0.4 Ml Syringe SC Not Given DAILY [facility] Gabapentin 100 mg 01/28/24 06:00 01/31/24 05:57 Gabapentin 100 Mg Capsule PO Not Given TID [facility] Glucagon 1 mg 01/28/24 05:08 Glucagon 1 Mg/Ml Syringe IM X1 PRN HYPOGLYCEMIA Protocol Hydroxychloroquine Sulfate 200 mg 01/28/24 08:00 01/31/24 08:10 [facility]oquine 200 Mg [facility] Dextrose 250 mls @ 0 mls/hr 01/28/24 05:08 Dextrose 10%-Water IV .Q0M PRN HYPOGLYCEMIA Protocol As Directed Sodium Chloride 250 mls @ 15 mls/hr 01/28/24 05:09 IV .[id number] PRN Additional IVPB Infusion Sodium Chloride 250 mls @ 15 mls/hr 01/28/24 05:09 IV .[id number] PRN Saline Flush Lactated Ringer's 1,000 mls @ 15 mls/hr 01/31/24 11:15 01/31/24 11:13 IV 15 mls/hr .Q48H JAN Administration Insulin Human Lispro 0 unit 01/28/24 07:00 01/31/24 10:27 Insulin Lispro 100 Unit/Ml Insuln.Pen SC Not Given TIDAC [facility] Protocol Ketorolac Tromethamine 15 mg 01/28/24 05:08 01/28/24 11:33 Ketorolac 15 Mg/Ml Vial IV 02/02/24 05:08 15 mg Q6H PRN PRN Administration Pain Score 1-10 Leflunomide 20 mg 01/28/24 10:00 01/31/24 09:59 Leflunomide 10 Mg Tablet PO Not Given DAILY [facility] Levothyroxine Sodium 150 mcg 01/28/24 06:00 01/31/24 05:57 Levothyroxine 150 Mcg Tablet PO Not Given 0600 [facility] Loratadine 10 mg 01/28/24 10:00 01/31/24 09:59 Loratadine 10 Mg Tablet PO Not Given DAILY [facility] Meclizine HCl 25 mg 01/28/24 05:08 Meclizine Hcl 25 Mg Tablet PO TID PRN PRN dizziness Morphine Sulfate 2 - 4 mg 01/28/24 05:08 Morphine 2 Mg/Ml Syringe IV Q3H PRN PRN Pain Score 6-10 Morphine Sulfate 2 - 4 mg 01/28/24 05:19 Morphine 4 Mg/Ml Syringe IV Q3H PRN PRN Pain Score 6-10 Ondansetron HCl 4 mg 01/28/24 05:08 01/30/24 22:05 Ondansetron 4 Mg/2 Ml Vial IV 4 mg Q8H PRN PRN Administration NAUSEA/VOMITING Oxycodone HCl 5 mg 01/28/24 05:08 01/30/24 22:05 Oxycodone 5 Mg Tablet PO 5 mg Q4H PRN PRN Administration Pain Score 4-10 Pantoprazole Sodium 40 mg 01/29/24 10:00 01/31/24 10:17 Pantoprazole Sodium 40 Mg Tablet PO 40 mg BID JAN Administration Prochlorperazine Edisylate 5 mg 01/28/24 05:08 Prochlorperazine 10 Mg/2 Ml Vial IV Q4H PRN PRN Breakthrough nausea/vomiting Senna 1 tablet 01/30/24 08:00 01/31/24 10:00 Senna Tablet PO Not Given BID JAN Sodium Chloride 10 - 40 ml 01/28/24 05:09 01/30/24 22:06 0.9% Saline Lock 10 Ml Syringe IV 10 ml UD PRN Administration SALINE FLUSH Sucralfate 1 gm 01/29/24 07:20 01/31/24 05:58 Sucralfate 1 Gm Tablet PO Not Given 1HR_ACHS JAN PFSH Medical History Loss of hearing Wears glasses Wears dentures History of steroid therapy Thyroid disease DVT (deep venous thrombosis) High cholesterol Back pain Vertigo Heartburn Smoker Shortness of breath on exertion Leg cramps Hypertension Cardiology follow-up encounter History of Holter monitoring History of echocardiogram History of stress test Lightheadedness Near syncope Mixed hyperlipidemia History of left heart catheterization (LHC) (~03/24/22) Abnormal cardiac CT angiography Tachycardia Essential hypertension Kyphosis Rheumatoid arthritis Home Medications ?Medication ?Instructions ?Recorded ?Last Taken ?Type meclizine 25 mg tablet 25 mg PO TID PRN dizziness 12/16/21 Unknown History amlodipine 10 mg tablet 10 mg PO DAILY bp 01/01/22 04/15/22 History hydroxychloroquine 200 mg tablet 200 mg PO BID ra 01/01/22 Unknown History losartan 100 mg tablet 100 mg PO DAILY 01/01/22 04/15/22 History famotidine 20 mg tablet 20 mg PO DAILY gerd 09/16/22 Unknown History ibuprofen 200 mg tablet (Advil) 200 mg PO Q6H pain 09/16/22 Unknown History levothyroxine 150 mcg tablet See Rx Instructions .Route 11/02/22 Unknown Rx .COMPLEX thyroid #90 tabs metformin 1,000 mg tablet 1,000 mg PO BID dm 11/16/22 Unknown History prednisone 10 mg tablet 10 mg PO DAILY PRN ARTHRITIS FLARE 11/16/22 Unknown History UP atorvastatin 20 mg tablet See Rx Instructions .Route 05/05/23 Unknown Rx .COMPLEX hld #90 tabs cetirizine 10 mg tablet 10 mg PO DAILY allergies 01/28/24 Unknown History empagliflozin 25 mg tablet 25 mg PO DAILY dm 01/28/24 Unknown History (Jardiance) gabapentin 100 mg capsule 100 mg PO TID pain 01/28/24 Unknown History leflunomide 20 mg tablet 20 mg PO DAILY 01/28/24 Unknown History Allergy/AdvReac Type Severity Reaction Status Date / Time Sulfa (Sulfonamide Allergy Unknown Hives Verified 01/28/24 02:31 Antibiotics) Family History Sister Breast cancer Hypertension Diabetes Sister Myocardial infarction, Onset Age: 30 Surgical History History of total thyroidectomy History of cardiac catheterization (~02/2022) S/P thyroid biopsy (~02/2022) History of laparoscopic cholecystectomy History of appendectomy Social History Smoking Status: Current every day smoker tobacco type: cigarettes Tobacco: How many years used: 30 second hand exposure: Yes alcohol intake: current alcohol intake frequency: holidays/special occasions only substance use type: does not use caffeine: Yes Type: coffee Number of servings: 3 seatbelt use: always Review of Systems (Anesthesia) ROS Narrative System reviewed and no additional complaints, except as documented.
--- NOTE | 2024-01-31 12:00 | IMM_PTH ---
PATIENT: CAITLIN OSBORNE LOC: MS3 U#:[id number] AGE/SX: 58/F ROOM: CO31 RE01/28/[address]: Dr. Leobardo Soto DO : 1965 BED: 1 DIS: 01/31/2024 SPEC #: [id number] RECD: 01/31/24 13:20 STATUS: SOUT REQ #: [id number] IVONNE: 01/31/24 12:[address]: Teo Coto DEPT: IMMUNOHISTOCHEMISTRY RECD BY: Everardo Parkinson ENTERED: 01/31/24 13:21 SP TYPE: IMMUNO OTHR DR: DO Dr. Dre Gutierrez DO Dr. Paul Nielsen, MD Tissues: A - Gastric mucous membrane Procedures: H Pylori (initial) Comments: @ Ordering doctor for H.PYLORI edited from to @ by SAHIL at 01/31/24 1321 @ Submitting doctor edited from to @ by SAHIL at 01/31/24 1321 PHYSICIAN & INSTITUTION [place] [id number] SPECIMEN INFORMATION: Tissue Source: A. Gastric cardia Clinical Info: Acute pancreatitis Specimen Number: [id number] CPT code: 84312 METHODOLOGY: Deparaffinized sections of prefer/formalin-fixed tissue or PAP/DQ stained slides are incubated with monoclonal/polyclonal antibodies/oligonucleotide probes. Localization is made via biotin free immunoperoxidase method. Appropriate controls are performed and reacted as expected. Results on target cell population are indicated in the following table: RESULTS: ANTIBODY / CLONE RESULT Block A H Pylori (polyclonal) positive These tests were developed and their performance characteristics determined by [facility]. They may not have been cleared or approved by the U.S. Food and Drug Administration. The FDA has determined that such clearance or approval is not necessary. The above immunohistochemical/dualISH markers are ordered and reviewed by the Pathologist. INTERPRETATION: A. Gastric cardia, biopsy: Positive for Helicobacter pylori organisms. DIO/ 02/01/2024
--- NOTE | 2024-01-31 12:00 | EGD_PTH ---
PATIENT: CAITLIN OSBORNE LOC: MS3 U#:[id number] AGE/SX: 58/F ROOM: KY317 RE01/28/[address]: Dr. Leobardo Soto DO : 1965 BED: 1 DIS: 01/31/2024 SPEC #: [id number] RECD: 01/31/24 12:58 STATUS: KINZA RETono #: [id number] IVONNE: 01/31/24 12:[address]: eTo Coto DEPT: SURGICAL PATHOLOGY RECD BY: Lisa Case ENTERED: 01/31/24 13:13 SP TYPE: EGD BIOPSY OTHR DR: DO Dr. Dre Gutierrez DO Dr. Paul Nielsen, MD Dr. Rahsaan Friend, DO Tissues: A - Gastric mucous membrane B - Duodenum, NOS Procedures: Surgery Specimen Level IV Comments: @ Ordering doctor for SUIV edited from to @ tomasz BAXTER at 01/31/24 1320 @ Submitting doctor edited from to @ by SAHIL at 01/31/24 1320 HEADER OPERATION: EGD biopsy PRE-OP DIAGNOSIS: Acute pancreatitis TISSUE SUBMITTED: A- Gastric cardia biopsy, B- Duodenum biopsy MICROSCOPIC DIAGNOSIS A. Gastric cardia, biopsy: Chronic active gastritis. See comment. B. Duodenum, biopsy: No pathologic change. AM/ 02/01/2024 COMMENT A. The results of immunohistochemistry for Helicobacter pylori will be reported separately ([id number]). MICROSCOPIC DESCRIPTION Slides are reviewed. GROSS DESCRIPTION A. Received in fixative is one container labeled with the patient's name and designated Gastric cardia biopsy. The specimen consists of two irregular fragments of light be soft tissue that in aggregate measure 0.6 x 0.4 x 0.1 cm. The specimen is totally submitted in one cassette. B. Received in fixative is one container labeled with the patient's name and designated Duodenum biopsy. The specimen consists of one irregular fragment of light be soft tissue that measures 0.3 x 0.3 x 0.1 cm. The specimen is totally submitted in one cassette. Milagros 01/31/2024 TC:3 CPT:76450d2
--- NOTE | 2024-01-31 12:09 | PCM.POST.ANE ---
Anesthesia: Postop Eval I Current Vital Signs Temperature: 97 F Pulse Rate: 85 Blood Pressure: 124/71 Respiratory Rate: 14 Pulse Ox: 95 Oxygen Delivery Method: Room Air Assessment Airway patent: Yes Spontaneous unlabored respirations: Yes Mental status: Awake and Calm nausea: No Vomiting: No Anesthesia Complication: No Fluid Hydration Crystalloid volume administer (ml): 200 Total IV fluid infused: 200 Progress Note Anesthesia document: Postop Eval 1 completed: Yes
--- NOTE | 2024-01-31 12:16 | OP.EGD_ITS ---
Patient Name: Kath Germain Procedure Date: 01/31/2024 11:47 AM Date of : 1965 Age: 58 Procedure: Upper GI endoscopy Indications: Epigastric abdominal pain, Functional Dyspepsia Providers: Teo Coto DO Medicines: Monitored Anesthesia Care Patient Profile: This is a 58 year old female. Refer to note in patient chart for documentation of history and physical. Patient has symptoms of acute abdominal distention and acute epigastric abdominal pain. Complications: No immediate complications. Procedure: Pre-Anesthesia Assessment: - Prior to the procedure, a History and Physical was performed, and patient medications and allergies were reviewed. The patient is competent. The risks and benefits of the procedure and the sedation options and risks were discussed with the patient. All questions were answered and informed consent was obtained. Patient identification and proposed procedure were verified by the physician in the pre-procedure area. Mental Status Examination: alert and oriented. Airway Examination: normal oropharyngeal airway and neck mobility. Respiratory Examination: clear to auscultation. CV Examination: normal. Prophylactic Antibiotics: The patient does not require prophylactic antibiotics. Prior Anticoagulants: The patient has taken no anticoagulant or antiplatelet agents except for NSAID medication. ASA Grade Assessment: III - A patient with severe systemic disease. After reviewing the risks and benefits, the patient was deemed in satisfactory condition to undergo the procedure. The anesthesia plan was to use monitored anesthesia care (MAC). Immediately prior to administration of medications, the patient was re-assessed for adequacy to receive sedatives. The heart rate, respiratory rate, oxygen saturations, blood pressure, adequacy of pulmonary ventilation, and response to care were monitored throughout the procedure. The physical status of the patient was re-assessed after the procedure. After obtaining informed consent, the endoscope was passed under direct vision. Throughout the procedure, the patient's blood pressure, pulse, and oxygen saturations were monitored continuously. The Endoscope was introduced through the mouth, and advanced to the second part of duodenum. The upper GI endoscopy was accomplished without difficulty. The patient tolerated the procedure well. Scope In: 11:56:59 AM Scope Out: 12:00:43 PM Total Procedure Duration Time 0 hours 3 minutes 44 seconds Findings: Small (< 5 mm) varices were found in the middle third of the esophagus and in the lower third of the esophagus. Mild portal hypertensive gastropathy was found in the cardia, in the gastric fundus and in the gastric body. Biopsies were taken with a cold forceps for histology. Verification of patient identification for the specimen was done. Estimated blood loss was minimal. Biopsies were taken with a cold forceps for Helicobacter pylori testing. Verification of patient identification for the specimen was done. Estimated blood loss was minimal. Patchy mild inflammation characterized by erythema was found in the first portion of the duodenum. Biopsies were taken with a cold forceps for histology. Verification of patient identification for the specimen was done. Estimated blood loss was minimal. Impression: - Small (< 5 mm) esophageal varices. - Portal hypertensive gastropathy. Biopsied. - Acute duodenitis. Biopsied. Recommendation: - Return patient to [facility] for ongoing care. - Resume previous diet. - Continue present medications. Procedure Code(s): --- Professional --- 44711, Esophagogastroduodenoscopy, flexible, transoral; with biopsy, single or multiple CPT copyright 2021 [employer]. All rights reserved. The codes documented in this report are preliminary and upon tapering machine operator review may be revised to meet current compliance requirements. Teo Coto DO 01/31/2024 12:15:40 PM This report has been signed electronically. Number of Addenda: 0 Note Initiated On: 01/31/2024 11:47 AM
--- NOTE | 2024-01-31 12:16 | OP.CCLET_ITS ---
01/31/2024 Nehemias Arizmendi MD [address] [id number] Re : Upper GI endoscopy procedure for Kath Germain Dear Dr. Arizmendi This procedure was performed on Wednesday, January 31, 2024. My impressions and recommendations are as follows: Impressions : - Small (< 5 mm) esophageal varices. - Portal hypertensive gastropathy. Biopsied. - Acute duodenitis. Biopsied. Recommendations : - Return patient to [facility] for [facility] care. - Resume previous diet. - Continue present medications. My findings are described in the full procedure note, which is enclosed. If I can be of further assistance, please feel free to contact me at . Sincerely, Teo Coto, 01/31/2024 12:15:40 PM This report has been signed electronically.
--- NOTE | 2024-01-31 12:31 | US_ITS ---
STUDY: ABDOMINAL ULTRASOUND - RIGHT UPPER QUADRANT REASON FOR VISIT: Female, 58 years old portal hypertension TECHNIQUE: Ultrasound evaluation of the right upper quadrant was performed with real-time and static hampton-scale imaging. TECHNICAL QUALITY: Adequate. COMPARISON: None. FINDINGS: Liver: The liver is enlarged and measures 18.6 cm. There is increased echogenicity consistent with fatty infiltration. The bile ducts are within normal limits. There is hepatic color flow. The direction of portal flow is hepatopetal. There is no demonstrated mass lesion. Gallbladder: The patient is status post cholecystectomy. Common Bile Duct (C.B.D.): The common bile duct measures 11 mm. Pancreas: There is nonvisualization of the pancreas due to overlying bowel gas. Right Kidney: Normal size of the right kidney. The right kidney measures 12.5 cm x 7.1 cm x 7.1 cm. Normal renal cortex. The right cortex measures 1.6 cm. There is a 3.7 cm x 3.4 cm x 3.7 cm right renal cyst. There is no right hydronephrosis. US/Abdomen Limited IMPRESSION: Mild hepatomegaly and fatty infiltration of the liver. Status post cholecystectomy. Right renal cyst. Electronically Signed: Kt Healy MD at 15:00 EDT ,
--- NOTE | 2024-01-31 13:54 | PCM.PN.HOSP ---
Reason for Visit Reason for Visit: Diagnoses Disorder of adrenal gland, unspecified (01/28/24) Acute pancreatitis without necrosis or infection, unspecified (01/28/24) Unspecified abdominal pain (01/28/24) Subjective Subjective No acute events overnight. Saw patient at bedside this morning prior to her EGD. She was laying comfortably in bed, in no acute distress. Denied any abdominal pain or discomfort this morning. Was looking forward to having the EGD done. No other new concerns today. Objective Data Objective Data Vital Signs: Vital Signs Temp Pulse Resp BP Pulse Ox O2 Del Method O2 Flow Rate 97.8 F 74 18 135/71 H 94 Room Air 2 01/31/24 12:59 01/31/24 12:59 01/31/24 12:59 01/31/24 12:59 01/31/24 12:59 01/31/24 13:02 01/31/24 11:36 Oxygen Flow Rate (L/min) 2 Oxygen Delivery Method Room Air Weight: 94.4 kg Body Mass Index (BMI) 36.8 Intake & Output: Intake and Output for Last 24 Hours 01/29/24 01/30/24 01/31/24 23:59 23:59 23:59 Intake Total 1160 / 1560 1400 / 1700 300 / 300 Balance 1160 / 1560 1400 / 1700 300 / 300 Lab / Micro Data 01/29/24 05:34 01/29/24 05:34 Labs: Laboratory Results - last 24 hr 01/29/24 05:34: TSH 0.16 L 01/30/24 16:14: POC Glucose 116 H 01/30/24 21:57: POC Glucose 115 H 01/31/24 05:57: POC Glucose 126 H 01/31/24 10:23: POC Glucose 118 H Physical Exam Const alert, oriented x3 and no apparent distress Constitutional Narrative: Pleasant middle-age female, obese, mildly fatigued appearing, otherwise laying comfortably in bed, conversing normally, no acute distress. Stable. General Appearance: cooperative and comfortable HEENT normocephalic, head/scalp atraumatic, hearing grossly normal bilaterally, nasal mucous membranes and turbinates normal and moist oral mucous membranes Eyes PERRL, EOMs intact bilaterally and conjunctivae normal Neck full ROM Chest inspection of chest normal Resp normal respiratory effort, normal air movement, no use of accessory muscles and clear to auscultation bilaterally Cardio regular rate, regular rhythm, no murmurs and peripheral pulses 2+ throughout GI GI Narrative: No tenderness to palpation in epigastric area, improved. Abdomen soft, nondistended with normal bowel sounds. Back/Spine normal ROM Extremity normal to inspection, full ROM and no pedal edema Skin no rashes or lesions noted Neuro no focal motor deficits and no sensory deficits noted Speech: speech normal Psych mental status grossly normal Assessment & Plan Assessment/Plan (1) Acute pancreatitis: (2) Adrenal nodule: PLAN: Plan Patient is a 58-year-old female who presented [facility] ED on 01/28/2024 with worsening abdominal pain. 1. Concern for acute pancreatitis versus gastritis/PUD, history of cholecystectomy ? GI following. Met criteria for acute pancreatitis on admission with abdominal pain and lipase greater than 250. However, CT abdomen pelvis on admit with prominent biliary tree, no acute pancreatitis findings, otherwise unremarkable. MRCP also showed no pancreatitis findings and biliary tree mildly dilated but consistent with post cholecystectomy changes. Per GI, low concern for acute pancreatitis but have higher concern for gastritis or peptic ulcer disease causing abdominal pain and elevated lipase. Started p.o. PPI twice daily and sucralfate with meals on 01/28. Was tolerating full liquid diet without issue on 01/27, advance to regular diet on 01/28. Patient unfortunately did not have significant improvement by 01/29. EGD 01/30 showed acute duodenitis along with portal hypertensive gastropathy and small esophageal varices. Continue PPI and sucralfate; will likely be okay for discharge home tomorrow pending further GI recs. 2. Incidental bilateral adrenal nodules ? Bilateral adrenal nodules, 2.6 cm on right and 2.1 cm on left noted on abdominal CT. Nodules also noted on MRCP, appear benign. Outpatient monitoring. Chronic medical conditions: ? Obesity: BMI 36 on admit. Complicates hospital course, care and prognosis. ? Type 2 diabetes mellitus with neuropathy: Home regimen of empagliflozin and metformin. Held empagliflozin on admission given concern it could be contributing to abdominal concerns above. Will hold home metformin as well. Sliding scale insulin with meals while inpatient. Continue home gabapentin. ? RA: Not in acute flare. Continue home hydroxychloroquine and leflunomide. ? Hypothyroidism: Continue home Synthroid. ? Hypertension: Continue home amlodipine, holding home losartan for now, restart as able. ? GERD: Continue home famotidine. DVT prophylaxis: Lovenox CODE STATUS: Full code, verified Expected disposition: Home, 1 to 2 days Total clinical time spent by myself addressing the patient's medical issues, reviewing all the data, and collaborating with patient's care team: 35 minutes. Charges/Coding Visit Charges Inpatient E&M: 76505 Subs Hosp L2
--- NOTE | 2024-01-31 14:05 | POSTOPAN2_ITS ---
Anesthesia Postop Eval I Sum Postop Eval Completion status Anesthesia document: Postop Eval 1 completed: Yes Anesthesia Postop Eval I Summary Anesthesia Postop Eval I Summary: Anesthesia Postop Eval I: Assessment Summary Airway patent Yes 01/31/24 12:10 STAFF [email or web address] Spontaneous unlabored Yes 01/31/24 12:10 STAFF [email or web address] respirations Mental status Awake,Calm 01/31/24 12:10 STAFF [email or web address] nausea No 01/31/24 12:10 STAFF [email or web address] Vomiting No 01/31/24 12:10 STAFF [email or web address] Anesthesia Postop Eval I: Fluid Summary Crystalloid volume administer 200 01/31/24 12:10 STAFF [email or web address] (ml) Colloids volume administered ( ml) Blood Product volume administered (ml) Total IV fluid infused 200 01/31/24 12:10 STAFF [email or web address] Anesthesia Postop Eval I: Summary Notes Anesthesia Complication No 01/31/24 12:10 STAFF [email or web address] Anesthesia Complication Comment: Post-operative progress note Anesthesia: Postop Eval II Evaluation Mental status: Awake and Calm Pain Level: 0 nausea: No Vomiting: No Complications Anesthesia Complication: No
--- NOTE | 2024-01-31 14:05 | PCM.POSTANE2 ---
Anesthesia Postop Eval I Sum Postop Eval Completion status Anesthesia document: Postop Eval 1 completed: Yes Anesthesia Postop Eval I Summary Anesthesia Postop Eval I Summary: Anesthesia Postop Eval I: Assessment Summary Airway patent Yes 01/31/24 12:10 [email or web address] Spontaneous unlabored Yes 01/31/24 12:10 [email or web address] [email or web address] respirations Mental status Awake,Calm 01/31/24 12:10 [email or web address] nausea No 01/31/24 12:10 [email or web address] Vomiting No 01/31/24 12:10 [email or web address] Anesthesia Postop Eval I: Fluid Summary Crystalloid volume administer 200 01/31/24 12:10 [email or web address] (ml) Colloids volume administered ( ml) Blood Product volume administered (ml) Total IV fluid infused 200 01/31/24 12:10 [email or web address] Anesthesia Postop Eval I: Summary Notes Anesthesia Complication No 01/31/24 12:10 [email or web address] Anesthesia Complication Comment: Post-operative progress note Anesthesia: Postop Eval II Evaluation Mental status: Awake and Calm Pain Level: 0 nausea: No Vomiting: No Complications Anesthesia Complication: No
[2024-01-31] MEDS: Gabapentin 100 MG Capsule PO (14:42)
[2024-01-31] MEDS: amLODIPine 10 MG Tablet PO (14:42)
[2024-01-31] MEDS: Sucralfate 1 GM Tablet PO (16:35)
[2024-01-31] MEDS: Hydroxychloroquine 200 MG Tablet PO (16:38)
[2024-01-31 16:57] LABS: Bedside Glucose 225 mg/dL (74-106)
--- NOTE | 2024-01-31 17:13 | PCM.DC ---
Discharge Instructions Diet Discharge Diet: No restrictions Activity Discharge Activity: No Restrictions Follow Up Care Test Results: Test results from this visit will be discussed in further detail at your follow-up appointment, if applicable. Discharge Plan Admission Admit Date/Time: 01/28/24 04:45 Primary Reason for Your Visit: abdominal pain Attending Provider: Leobardo Soto Primary Care Provider: Nehemias Arizmendi Consulting Providers: Dre Levine; Friend,Teo Discharge Orders/Prescriptions Prescriptions: New sucralfate 1 gram Tablet 1 g PO 1HR_ACHS 14 Days Qty: 42 0RF pantoprazole 40 mg Tablet,Delayed Release (Dr/Ec) 40 mg PO BID 30 Days Qty: 60 0RF Continued hydroxychloroquine 200 mg tablet 200 mg PO BID losartan 100 mg tablet 100 mg PO DAILY amlodipine 10 mg tablet 10 mg PO DAILY meclizine 25 mg tablet 25 mg PO TID PRN (Reason: dizziness) metformin 1,000 mg tablet 1,000 mg PO BID prednisone 10 mg tablet 10 mg PO DAILY PRN (Reason: ARTHRITIS FLARE UP) cetirizine 10 mg tablet 10 mg PO DAILY leflunomide 20 mg tablet 20 mg PO DAILY gabapentin 100 mg capsule 100 mg PO TID Jardiance 25 mg tablet 25 mg PO DAILY levothyroxine 150 mcg tablet See Rx Instructions .ROUTE .COMPLEX Qty: 90 0RF Dose Instruction: TAKE 1 TABLET BY MOUTH EVERY DAY Rx Instructions: TAKE 1 TABLET BY MOUTH EVERY DAY atorvastatin 20 mg tablet See Rx Instructions .ROUTE .COMPLEX Qty: 90 4RF Dose Instruction: TAKE 1 TABLET BY MOUTH ONCE DAILY AT BEDTIME Rx Instructions: TAKE 1 TABLET BY MOUTH ONCE DAILY AT BEDTIME Discontinued famotidine 20 mg tablet 20 mg PO DAILY ibuprofen [Advil] 200 mg tablet 200 mg PO Q6H Referrals / Follow Up: Nehemias Arizmendi MD [Primary Care Provider] - Disposition Disposition (needs filled in before D/C Order can be placed): Home, Self Care
--- NOTE | 2024-01-31 17:17 | DS.PCM_ITS ---
Providers Date of Admission: 01/28/24 Date of Discharge: 01/31/24 Primary Care Physician: Dr. Nehemias Arizmendi MD Consultations 01/28/24 14:48 Consult: Gastroenterology Routine Consulting Provider: Teo Coto Reason for Consult: concern for acute pancreatitis, h/o silver, elev lipase w/ pain but nml MRCP EMERGENT Consult: No MD Notified: Yes Date Notified: 01/28/24 Time Notified: 15:15 Method of Notification: Text Reason For Visit: PANCREATITIS Diagnosis Discharge Diagnosis (1) Acute pancreatitis: Status: Acute Code(s): K85.90 - Acute pancreatitis without necrosis or infection, unspecified (2) Adrenal nodule: Status: Acute Code(s): E27.9 - Disorder of adrenal gland, unspecified Medications at Discharge Home Medications meclizine 25 mg tablet 25 mg PO TID PRN dizziness 12/16/21 amlodipine 10 mg tablet 10 mg PO DAILY bp 01/01/22 hydroxychloroquine 200 mg tablet 200 mg PO BID ra 01/01/22 losartan 100 mg tablet 100 mg PO DAILY 01/01/22 levothyroxine 150 mcg tablet See Rx Instructions .Route .COMPLEX thyroid #90 tabs 11/02/22 metformin 1,000 mg tablet 1,000 mg PO BID dm 11/16/22 prednisone 10 mg tablet 10 mg PO DAILY PRN ARTHRITIS FLARE UP 11/16/22 atorvastatin 20 mg tablet See Rx Instructions .Route .COMPLEX hld #90 tabs 05/05/23 cetirizine 10 mg tablet 10 mg PO DAILY allergies 01/28/24 empagliflozin 25 mg tablet (Jardiance) 25 mg PO DAILY dm 01/28/24 gabapentin 100 mg capsule 100 mg PO TID pain 01/28/24 leflunomide 20 mg tablet 20 mg PO DAILY 01/28/24 pantoprazole 40 mg tablet,delayed release 40 mg PO BID 30 days #60 tabs 01/31/24 sucralfate 1 gram tablet 1 g PO 1HR_ACHS 14 days #42 tabs 01/31/24 Hospital Course Operations None Procedures - (CT abdomen pelvis, MRCP, abdominal ultrasound) Summary of Care Provided Minutes Spent on Discharge: 35 Hospital Course: Patient is a 58-year-old female who presented [facility] ED on 01/28/2024 with worsening abdominal pain. Hospital course as noted below. Discharged home with no therapy needs a stable condition on 01/30. 1. Concern for acute pancreatitis versus gastritis/PUD, history of cholecystectomy ? GI followed. Met criteria for acute pancreatitis on admission with abdominal pain and lipase greater than 250. However, CT abdomen pelvis on admit with prominent biliary tree, no acute pancreatitis findings, otherwise unremarkable. MRCP also showed no pancreatitis findings and biliary tree mildly dilated but consistent with post cholecystectomy changes. Per GI, low concern for acute pancreatitis but have higher concern for gastritis or peptic ulcer disease causing abdominal pain and elevated lipase. Started p.o. PPI twice daily and sucralfate with meals on 01/28. Was tolerating full liquid diet without issue on 01/27, advance to regular diet on 01/28. Patient unfortunately did not have significant improvement by 01/29. EGD 01/30 showed acute duodenitis along with portal hypertensive gastropathy and small esophageal varices. Per GI, planning for liver FibroScan and liver biopsy in outpatient setting in the near future. Will continue PPI twice daily and sucralfate with meals for the next few weeks. Will follow-up with GI in the office in the next few weeks as well. 2. Incidental bilateral adrenal nodules ? Bilateral adrenal nodules, 2.6 cm on right and 2.1 cm on left noted on abdominal CT. Nodules also noted on MRCP, appear benign. Outpatient monitoring. Chronic medical conditions: ? Obesity: BMI 36 on admit. Complicated hospital course, care and prognosis. ? Type 2 diabetes mellitus with neuropathy: Home regimen of empagliflozin and metformin. Held empagliflozin on admission given concern it could be contributing to abdominal concerns above. Will hold home metformin as well. Treated with sliding scale insulin with meals while inpatient. Okay to resume home empagliflozin and metformin on discharge. Continue home gabapentin. ? RA: Not in acute flare. Continue home hydroxychloroquine and leflunomide. ? Hypothyroidism: Continue home Synthroid. ? Hypertension: Continue home amlodipine and losartan. ? GERD: Continue home famotidine. Total clinical time spent by myself addressing the patient's medical issues, reviewing all the data, and collaborating with patient's care team: 35 minutes. Physical Exam Const alert, oriented x3 and no apparent distress Constitutional Narrative: Pleasant middle-age female, obese, mildly fatigued appearing, otherwise laying comfortably in bed, conversing normally, no acute distress. Stable. General Appearance: cooperative and comfortable HEENT normocephalic, head/scalp atraumatic, hearing grossly normal bilaterally, nasal mucous membranes and turbinates normal and moist oral mucous membranes Eyes PERRL, EOMs intact bilaterally and conjunctivae normal Neck full ROM Chest inspection of chest normal Resp normal respiratory effort, normal air movement, no use of accessory muscles and clear to auscultation bilaterally Cardio regular rate, regular rhythm, no murmurs and peripheral pulses 2+ throughout GI GI Narrative: No tenderness to palpation in epigastric area, improved. Abdomen soft, nondistended with normal bowel sounds. Back/Spine normal ROM Extremity normal to inspection, full ROM and no pedal edema Skin no rashes or lesions noted Neuro no focal motor deficits and no sensory deficits noted Speech: speech normal Psych mental status grossly normal Weight / BMI Weight Weight: 94.4 kg Body Mass Index (BMI) 36.8 ABG / Lab / Microbiology Data 01/29/24 05:34 01/29/24 05:34 Laboratory: Laboratory Results - last 24 hr 01/29/24 05:34: TSH 0.16 L 01/30/24 21:57: POC Glucose 115 H 01/31/24 05:57: POC Glucose 126 H 01/31/24 10:23: POC Glucose 118 H 01/31/24 16:36: POC Glucose 225 H Radiography Diagnostic Testing: Radiology Impression Abdomen Ultrasound 01/31/24 12:31 IMPRESSION: Mild hepatomegaly and fatty infiltration of the liver. Status post cholecystectomy. Right renal cyst. Electronically Signed: Kt Healy MD at 15:00 EDT , D/C Instructions Discharge Diet: No restrictions Meaningful Use Info Meaningful Use Meaningful Use Diagnoses (Choose all that apply): None applicable Ischemic Stroke Statin Dosing Therapy Reference: STATIN DOSE THERAPY REFERENCE: * Patients > 75 years receive moderate or high dose statin therapy. * Patients 75 years or YOUNGER should receive HIGH intensity statin dose unless contraindicated. You will be required to document reason for non-treatment if statin daily dose does not meet guidelines. HIGH DOSE STATIN THERAPY DAILY Atorvastatin > than or = to 40 mg Rosuvastatin > than or = to 20 mg Amlodipine + Atorvastatin > than or = to 2.5/40 mg Ezetimibe + Simvastatin 10/80 mg Simvastatin 80mg Discharge Plan Admission Admit Date/Time: 01/28/24 04:45 Primary Reason for Your Visit: abdominal pain Attending Provider: Leobardo Soto Primary Care Provider: Nehemias Arizmendi Consulting Providers: Dre Levine; Friend,Teo Discharge Orders/Prescriptions Prescriptions: New sucralfate 1 gram Tablet 1 g PO 1HR_ACHS 14 Days Qty: 42 0RF pantoprazole 40 mg Tablet,Delayed Release (Dr/Ec) 40 mg PO BID 30 Days Qty: 60 0RF Continued hydroxychloroquine 200 mg tablet 200 mg PO BID losartan 100 mg tablet 100 mg PO DAILY amlodipine 10 mg tablet 10 mg PO DAILY meclizine 25 mg tablet 25 mg PO TID PRN (Reason: dizziness) metformin 1,000 mg tablet 1,000 mg PO BID prednisone 10 mg tablet 10 mg PO DAILY PRN (Reason: ARTHRITIS FLARE UP) cetirizine 10 mg tablet 10 mg PO DAILY leflunomide 20 mg tablet 20 mg PO DAILY gabapentin 100 mg capsule 100 mg PO TID Jardiance 25 mg tablet 25 mg PO DAILY levothyroxine 150 mcg tablet See Rx Instructions .ROUTE .COMPLEX Qty: 90 0RF Dose Instruction: TAKE 1 TABLET BY MOUTH EVERY DAY Rx Instructions: TAKE 1 TABLET BY MOUTH EVERY DAY atorvastatin 20 mg tablet See Rx Instructions .ROUTE .COMPLEX Qty: 90 4RF Dose Instruction: TAKE 1 TABLET BY MOUTH ONCE DAILY AT BEDTIME Rx Instructions: TAKE 1 TABLET BY MOUTH ONCE DAILY AT BEDTIME Discontinued famotidine 20 mg tablet 20 mg PO DAILY ibuprofen [Advil] 200 mg tablet 200 mg PO Q6H Referrals / Follow Up: Nehemias Arizmendi MD [Primary Care Provider] - Disposition Disposition (needs filled in before D/C Order can be placed): Home, Self Care Charges/Coding Visit Charges Inpatient E&M: 43480 Disch Hosp >30min
--- NOTE | 2024-01-31 17:41 | NURSING ---
called lab about collecting labs as pt may dc after collected
[2024-01-31 18:44] LABS: Erythrocyte Sedimentation Rate 38 mm/hr (0-30)
[2024-01-31 19:01] LABS: Ferritin 72 ng/mL (8-252); Iron 44 ug/dL (50-170); Iron Binding Capacity,Total 362 ug/dL (250-450); PERCENT IRON SATURATION 12.2 % (15.0-55.0)
--- NOTE | 2024-01-31 21:01 | EKG12_ITS ---
Test Reason : PRE-OP Blood Pressure : / mmHG Vent. Rate : 079 BPM Atrial Rate : 079 BPM P-R Int : 230 ms QRS Dur : 104 ms QT Int : 430 ms P-R-T Axes : 048 -59 064 degrees QTc Int : 493 ms Sinus rhythm with 1st degree A-V block Left axis deviation Inferior infarct , age undetermined Abnormal ECG When compared with ECG of 05-JAN-2023 14:58, OR interval has increased QRS axis Shifted left Confirmed by Gm Tyler ([id number]), department editor BRADEN LEE ([id number]) on 02/02/2024 9:19:08 AM Referred By: ALTA Confirmed By:Gm Tyler
[2024-02-02 14:10] LABS: Anti-Centromere B Ab <0.2 AI (0.0-0.9); Anti-Chromatin <0.2 AI (0.0-0.9); Anti-Jo <0.2 AI (0.0-0.9); Anti-Mitochondrial AB <20.0 Units (0.0-20.0); Anti-Scleroderma-70 AB <0.2 AI (0.0-0.9); Anti-dsDNA Ab <1 IU/mL (0-9); RNP Ab <0.2 AI (0.0-0.9); SJOGREN'S Anti-SS-A test < 0.2 AI (0.0-0.9); SJOGREN'S Anti-SS-B test < 0.2 AI (0.0-0.9); Smith Ab <0.2 AI (0.0-0.9)
[2024-02-05 10:42] LABS: ACCA 72 units (0-90); ALCA 26 units (0-60); AMCA 144 units (0-100); Albumin 3.2 g/dL (2.9-4.4); Alpha-1-Globulins 0.3 g/dL (0.0-0.4); Anti-Smooth Muscle ABS 18 Units (0-19); Ceruloplasmin 33.9 mg/dL (19.0-39.0); Copper, Serum or Plasma 146 ug/dL (80-158); Cytoplasmic Ab (C-ANCA) <1:20 titer (Neg:<1:20); Deamidated Gliadin IgA 5 units (0-19); Deamidated Gliadin IgG 3 units (0-19); Endomysial Antibody IgA Negative (Negative); Gamma Globulin 0.9 g/dL (0.4-1.8); HEPATITIS B SURFACE AG Negative (Negative); Hep C Antibodies Non Reactive (Non Reactive); Hepatitis A IgM Antibody Negative (Negative); Hepatitis B Core AB IgM Negative (Negative); Immunoglobulin A 457 mg/dL (87-352); Immunoglobulin G 1075 mg/dL (586-1602); Immunoglobulin M 30 mg/dL (26-217); PROEL- TOTAL PROTEIN 6.9 g/dL (6.0-8.5); Perinuclear Ab (P-ANCA) <1:20 titer (Neg:<1:20); Transferrin 290 mg/dL (192-364); gASCA 15 units (0-50); t-Transglutaminase IgA <2 U/mL (0-3)
== END 2024-01-31 18:11 | disposition home or self-care (01) | DRG 392 ==
LOC: ED 04:39 → MS3 04:55
PROVIDERS: Anesthesiology; Internal Medicine Gastroenterology; Emergency Provider Emergency Medicine; PCP Family Medicine; Visit Provider Hospitalist
PROC: 0DJ08ZZ Inspection of Upper Intestinal Tract, Via Natural or Artificial Opening Endoscopic (ICD-10-PCS; CPT 43235; principal; 2024-01-31 11:55)
DX: K29.80 Duodenitis without bleeding (principal); I85.00 Esophageal varices without bleeding; K76.6 Portal hypertension; E27.8 Other specified disorders of adrenal gland; E11.40 Type 2 diabetes mellitus with diabetic neuropathy, unspecified; M06.9 Rheumatoid arthritis, unspecified; I10 Essential (primary) hypertension; E03.9 Hypothyroidism, unspecified; Z68.36 Body mass index [BMI] 36.0-36.9, adult; F17.210 Nicotine dependence, cigarettes, uncomplicated; E78.2 Mixed hyperlipidemia; K21.9 Gastro-esophageal reflux disease without esophagitis; N28.1 Cyst of kidney, acquired; Z79.52 Long term (current) use of systemic steroids; E66.9 Obesity, unspecified; Z79.84 Long term (current) use of oral hypoglycemic drugs; Z86.718 Personal history of other venous thrombosis and embolism; Z90.49 Acquired absence of other specified parts of digestive tract
CPT/HCPCS: 36415; 74177; 74181; 76705; 80048; 80053; 80074; 80076; 82390; 82525; 82728; 82784; 82962; 83516; 83540; 83550; 83690; 84165; 84443; 84466; 85025; 85652; 86036; 86140; 86225; 86235; 86255; 86256; 86334; 86671; 88305; 88342; 93005; 99284; 99406; J7030; J7120; Q9967; A4216; J2405

== ENCOUNTER → 2024-03-10 | Outpatient (CLI) | payer OTHER, SELFPAY ==
[2024-03-10 10:19] LABS: Absolute Lymphocyte Count 1.89 X10^3/uL (0.83-4.51); Absolute Neutrophil Count 3.4 X10^3/uL (2.0-7.7); Basophil# 0.06 X10^3/uL; Eosinophil# 0.37 X10^3/uL; Eosinophils% 5.9 % (0-5); Hematocrit 45.9 % (37-47); Hemoglobin 14.3 g/dL (12.0-15.0); Lymphocyte # 1.89 X10^3/ul (0.83-4.51); Mean Corp Hgb Conc 31.2 g/dL (32-36); Mean Corpuscular Hgb 27.7 pg (27.0-32.0); Mean Platelet Vol. 9.9 fl (6.2-12.0); Monocyte# 0.53 X10^3/uL; Monocyte% 8.4 % (0-10); NRBC Flagged by Analyzer 0 % (0-5); Neutrophil # 3.41 X10^3/uL (2.7-7.7); Neutrophil % 54.2 % (47-70); Platelet Count 249 K/mm3 (150-450); RBC Distribution Width CV 14.4 % (11.6-14.6); RBC Distribution Width SD 46.7 fl (35.1-43.9); Red Blood Count 5.16 M/mm3 (4.2-5.4); White Blood Count 6.3 K/mm3 (4.4-11.0)
[2024-03-10 11:23] LABS: ALB/GLOB Ratio 0.8 RATIO (0.9-2.4); AST(SGOT) 9 U/L (15-37); Alanine Aminotransfer ALT/SGPT 14 U/L (13-56); Albumin, Serum 3.4 g/dL (3.2-5.0); Alkaline Phosphatase 104 U/L (45-117); Anion Gap 6 (5-15); BUN 19 mg/dL (7-18); BUN/Creat Ratio 22.2 RATIO (10-20); Calcium,Total 9.6 mg/dL (8.5-10.1); Chloride 104 mmol/L (98-107); Creatinine, Serum 0.85 mg/dL (0.55-1.02); EST Glomerular Filtration Rate 72 mL/min (>60); Est Glom Filt Rate - Afr Amer 87 mL/min (>60); Globulin 4.4 g/dL (2.2-4.2); Glucose 147 mg/dL (74-106); Protein, Total 7.8 g/dL (6.4-8.2); Sodium Level 137 mmol/L (136-145)
== END | disposition home or self-care (01) ==
LOC: MFPLAB 08:50
PROVIDERS: PCP Family Medicine; Visit Provider Internal Medicine Rheumatology
DX: M05.79 Rheumatoid arthritis with rheumatoid factor of multiple sites without organ or systems involvement (principal); M79.7 Fibromyalgia; Z79.899 Other long term (current) drug therapy
CPT/HCPCS: 36415; 80053; 85025

== ENCOUNTER → 2024-05-29 | Outpatient (CLI) | payer OTHER, SELFPAY ==
[2024-05-29 10:32] LABS: Absolute Lymphocyte Count 1.82 X10^3/uL (0.83-4.51); Absolute Neutrophil Count 4.1 X10^3/uL (2.0-7.7); Basophil# 0.06 X10^3/uL; Basophil% 0.9 % (0-1); Eosinophil# 0.31 X10^3/uL; Eosinophils% 4.6 % (0-5); Hematocrit 46.3 % (37-47); Hemoglobin 14.6 g/dL (12.0-15.0); Lymphocyte # 1.82 X10^3/ul (0.83-4.51); Lymphocyte % 26.9 % (19-41); Mean Corp Hgb Conc 31.5 g/dL (32-36); Mean Corpuscular Hgb 28.3 pg (27.0-32.0); Mean Corpuscular Volume 89.9 fL (81-99); Mean Platelet Vol. 10.5 fl (6.2-12.0); Monocyte# 0.51 X10^3/uL; Monocyte% 7.5 % (0-10); NRBC Flagged by Analyzer 0 % (0-5); Neutrophil # 4.05 X10^3/uL (2.7-7.7); Neutrophil % 59.8 % (47-70); Platelet Count 200 K/mm3 (150-450); RBC Distribution Width SD 45.5 fl (35.1-43.9); Red Blood Count 5.15 M/mm3 (4.2-5.4); White Blood Count 6.8 K/mm3 (4.4-11.0)
[2024-05-29 11:07] LABS: ALB/GLOB Ratio 0.9 RATIO (0.9-2.4); AST(SGOT) 10 U/L (15-37); Alanine Aminotransfer ALT/SGPT 16 U/L (13-56); Albumin, Serum 3.7 g/dL (3.2-5.0); Alkaline Phosphatase 97 U/L (45-117); Anion Gap 6 (5-15); BUN 19 mg/dL (7-18); BUN/Creat Ratio 23.8 RATIO (10-20); Calcium,Total 9.8 mg/dL (8.5-10.1); Chloride 107 mmol/L (98-107); EST Glomerular Filtration Rate 78 mL/min (>60); Est Glom Filt Rate - Afr Amer 94 mL/min (>60); Globulin 4.3 g/dL (2.2-4.2); Glucose 177 mg/dL (74-106); Potassium 3.8 mmol/L (3.5-5.1); Sodium Level 140 mmol/L (136-145)
== END | disposition home or self-care (01) ==
LOC: MFPLAB 08:55
PROVIDERS: PCP Family Medicine; Visit Provider Internal Medicine Rheumatology
DX: M05.79 Rheumatoid arthritis with rheumatoid factor of multiple sites without organ or systems involvement (principal); M79.7 Fibromyalgia; Z79.899 Other long term (current) drug therapy
CPT/HCPCS: 36415; 80053; 85025

== ENCOUNTER → 2024-08-22 | Outpatient (CLI) | payer BC, SELFPAY ==
[2024-08-22 11:04] LABS: Absolute Lymphocyte Count 1.48 X10^3/uL (0.83-4.51); Absolute Neutrophil Count 4.3 X10^3/uL (2.0-7.7); Basophil# 0.04 X10^3/uL; Basophil% 0.6 % (0-1); Eosinophil# 0.21 X10^3/uL; Eosinophils% 3.2 % (0-5); Hematocrit 46.7 % (37-47); Hemoglobin 14.8 g/dL (12.0-15.0); Lymphocyte # 1.48 X10^3/ul (0.83-4.51); Lymphocyte % 22.9 % (19-41); Mean Corp Hgb Conc 31.7 g/dL (32-36); Mean Corpuscular Hgb 28.2 pg (27.0-32.0); Mean Corpuscular Volume 89.1 fL (81-99); Mean Platelet Vol. 10.2 fl (6.2-12.0); Monocyte# 0.45 X10^3/uL; NRBC Flagged by Analyzer 0 % (0-5); Neutrophil # 4.27 X10^3/uL (2.7-7.7); Platelet Count 211 K/mm3 (150-450); RBC Distribution Width CV 14.3 % (11.6-14.6); Red Blood Count 5.24 M/mm3 (4.2-5.4); White Blood Count 6.5 K/mm3 (4.4-11.0)
[2024-08-22 18:59] LABS: ALB/GLOB Ratio 1.1 RATIO (0.9-2.4); AST(SGOT) 17 U/L (<=31); Alanine Aminotransfer ALT/SGPT 13 U/L (<=34); Alkaline Phosphatase 101 U/L (35-104); Anion Gap 14 (5-15); BUN 27 mg/dL (4-19); BUN/Creat Ratio 35.9 RATIO (10-20); Chloride 102 mmol/L (96-108); Creatinine, Serum 0.8 mg/dL (0.6-1.0); EST Glomerular Filtration Rate 90 (>60); Globulin 3.8 g/dL (2.2-4.2); Glucose 187 mg/dL (70-99); Potassium 4.3 mmol/L (3.3-5.1); Protein, Total 7.8 g/dL (5.9-8.4); Sodium Level 140 mmol/L (133-145); Total Bilirubin 0.52 mg/dL (0.00-1.30)
== END | disposition home or self-care (01) ==
LOC: MFPLAB 09:30
PROVIDERS: PCP Family Medicine; Visit Provider Internal Medicine Rheumatology
DX: M05.79 Rheumatoid arthritis with rheumatoid factor of multiple sites without organ or systems involvement (principal); Z79.899 Other long term (current) drug therapy
CPT/HCPCS: 36415; 80053; 85025

== ENCOUNTER 2024-10-18 18:33 | Inpatient (IN) | payer BC, SELFPAY ==
[2024-10-18] VITALS (10 sets, daily range): BP systolic 84–143; BP diastolic 63–76; PULSE 97–111; RESP 16–25; TEMP 36.6–37; O2SAT 83–95; BMI 41.6; BMI 39.6
[2024-10-18 18:57] LABS: Absolute Lymphocyte Count 1.28 X10^3/uL (0.83-4.51); Absolute Neutrophil Count 9.3 X10^3/uL (2.0-7.7); Basophil# 0.08 X10^3/uL; Basophil% 0.7 % (0-1); Eosinophil# 0.09 X10^3/uL; Eosinophils% 0.8 % (0-5); Hematocrit 43.4 % (37-47); Hemoglobin 14.1 g/dL (12.0-15.0); Lymphocyte # 1.28 X10^3/ul (0.83-4.51); Lymphocyte % 11.1 % (19-41); Mean Corp Hgb Conc 32.5 g/dL (32-36); Mean Corpuscular Hgb 28.8 pg (27.0-32.0); Mean Corpuscular Volume 88.8 fL (81-99); Mean Platelet Vol. 9.8 fl (6.2-12.0); Monocyte# 0.79 X10^3/uL; Monocyte% 6.9 % (0-10); NRBC Flagged by Analyzer 0 % (0-5); Neutrophil # 9.26 X10^3/uL (2.7-7.7); Neutrophil % 80.2 % (47-70); Platelet Count 186 K/mm3 (150-450); RBC Distribution Width CV 13.9 % (11.6-14.6); RBC Distribution Width SD 45.1 fl (35.1-43.9); Red Blood Count 4.89 M/mm3 (4.2-5.4); White Blood Count 11.5 K/mm3 (4.4-11.0)
--- NOTE | 2024-10-18 20:03 | EX.ED.DYSGE1 ---
HPI History of Present Illness Chief Complaint: Abd Pain Narrative Narrative: Chief complaint and HPI: Right upper quadrant abdominal pain. 59-year-old female with past medical history of HTN, HLD, RA, history of cholecystectomy and appendectomy presents for evaluation of right upper quadrant abdominal pain. Patient states that she has had cold-like symptoms for approximately 1 week. She endorses coughing. She states this morning around 11 AM she developed right upper quadrant abdominal pain. Describes it as sharp. Worse when she takes a deep breath then. She denies any fever, chills, chest pain, nausea, vomiting, diarrhea, dysuria. States she had similar symptoms like this before in which she was diagnosed with pneumonia in the past. Review of systems: See HPI Medications: As listed on the chart Allergies: As listed on the chart PFSH: Per chart Vital signs: As listed on the chart. Reviewed. Physical exam: Gen: A&O x3, NAD Head: Normocephalic, atraumatic Eyes: No sclera icterus, conjunctiva clear ENT: Moist mucous membranes, + nasal congestion Neck: Trachea midline, No JVD CV: RRR, no murmurs, no peripheral edema Resp: Lungs CTA BL but diminished in the bilateral bases, no w/r/c, + cough GI: Abd soft, non-distended, mild tenderness to palpation in the right upper quadrant, no r/r/g : No CVA tenderness Musc: Full ROM, no deformity Skin: Warm, dry Neuro: Alert, oriented, grossly intact, sensation intact Psych: Cooperative, appropriate mood and affect [facility] Medical History (Updated 10/19/24 @ 03:[address] Nhan Robles, DO) Renal cyst Adrenal nodule Loss of hearing Wears glasses Wears dentures History of steroid therapy Thyroid disease DVT (deep venous thrombosis) High cholesterol Back pain Vertigo Heartburn Smoker Shortness of breath on exertion Leg cramps Hypertension Cardiology follow-up encounter History of Holter monitoring History of echocardiogram History of stress test Lightheadedness Near syncope Mixed hyperlipidemia History of left heart catheterization (LHC) (~03/24/22) Abnormal cardiac CT angiography Tachycardia Essential hypertension Kyphosis Rheumatoid arthritis Home Medications ?Medication ?Instructions ?Recorded ?Last Taken ?Type meclizine 25 mg tablet 25 mg PO TID PRN dizziness 12/16/21 Unknown History amlodipine 10 mg tablet 10 mg PO DAILY bp 01/01/22 04/15/22 History hydroxychloroquine 200 mg tablet 200 mg PO BID ra 01/01/22 Unknown History losartan 100 mg tablet 100 mg PO DAILY 01/01/22 04/15/22 History levothyroxine 150 mcg tablet See Rx Instructions .Route 11/02/22 Unknown Rx .COMPLEX thyroid #90 tabs metformin 1,000 mg tablet 1,000 mg PO BID dm 11/16/22 Unknown History prednisone 10 mg tablet 10 mg PO DAILY PRN ARTHRITIS FLARE 11/16/22 Unknown History UP atorvastatin 20 mg tablet See Rx Instructions .Route 05/05/23 Unknown Rx .COMPLEX hld #90 tabs cetirizine 10 mg tablet 10 mg PO DAILY PRN allergies 01/28/24 Unknown History gabapentin 100 mg capsule 100 mg PO TID pain 01/28/24 Unknown History leflunomide 20 mg tablet 20 mg PO DAILY 01/28/24 Unknown History bismuth subsalicylate 262 mg 1 tab PO Q6H diarrhea #56 tabs 02/08/24 Unknown Rx chewable tablet (Soothe (bismuth subsalicylate)) dapagliflozin propanediol 10 mg 10 mg PO DAILY 10/18/24 Unknown History tablet (Farxiga) furosemide 20 mg tablet 20 mg PO DAILY 10/18/24 Unknown History pantoprazole 40 mg tablet,delayed 40 mg PO Q12H PRN GERD 10/18/24 Unknown History release Allergy/AdvReac Type Severity Reaction Status Date / Time Sulfa (Sulfonamide Allergy Unknown Hives Verified 10/18/24 18:35 Antibiotics) Family History Sister Breast cancer Hypertension Diabetes Sister Myocardial infarction, Onset Age: 30 Surgical History History of total thyroidectomy History of cardiac catheterization (~02/2022) S/P thyroid biopsy (~02/2022) History of laparoscopic cholecystectomy History of appendectomy Social History Smoking Status: Current every day smoker tobacco type: cigarettes Tobacco: How many years used: 30 second hand exposure: Yes alcohol intake: current alcohol intake frequency: holidays/special occasions only substance use type: does not use caffeine: Yes Type: coffee Number of servings: 3 seatbelt use: always EXAM Physical Exam Const Vital Signs: 10/18/24 18:34 10/18/24 19:33 10/18/24 20:01 Temperature 98.6 F Temperature Source Temporal Pulse Rate 111 H 99 Respiratory Rate 22 H 25 H Respiratory Effort Short of Breath Respiratory Depth Shallow Respiratory Pattern Tachypnea Blood Pressure 143/70 H 84/63 L Blood Pressure Mean 94 70 Pulse Ox 94 86 Oxygen Delivery Method Room Air Room Air Oxygen Flow Rate (L/min) 10/18/24 20:06 10/18/24 20:09 10/18/24 20:10 Temperature Temperature Source Pulse Rate 97 Respiratory Rate 20 H 16 Respiratory Effort Respiratory Depth Respiratory Pattern Blood Pressure 98/66 Blood Pressure Mean 76 Pulse Ox 89 92 Oxygen Delivery Method Nasal Cannula Nasal Cannula Nasal Cannula Oxygen Flow Rate (L/min) 2 2 2 10/18/24 20:18 10/18/24 20:18 10/18/24 20:21 Temperature Temperature Source Pulse Rate 102 H 107 H Respiratory Rate 24 H Respiratory Effort Short of Breath Respiratory Depth Respiratory Pattern Tachypnea Tachypnea Blood Pressure Blood Pressure Mean Pulse Ox Oxygen Delivery Method Oxygen Flow Rate (L/min) 10/18/24 21:11 10/18/24 21:14 Temperature 98.5 F Temperature Source Oral Pulse Rate 106 H Respiratory Rate 21 H Respiratory Effort Respiratory Depth Respiratory Pattern Blood Pressure Blood Pressure Mean Pulse Ox 83 94 Oxygen Delivery Method Nasal Cannula Nasal Cannula Oxygen Flow Rate (L/min) 3 2 MDM MDM MDM Narrative Medical decision making narrative: 59-year-old female with past medical history of HTN, HLD, RA, history of cholecystectomy and appendectomy presents for evaluation of right upper quadrant abdominal pain. Patient has had URI type symptoms including cough for about a week. States this feels similar to her previous diagnosis of pneumonia. Differential diagnosis includes but is not limited to viral syndrome, pneumonia, myofascial strain, PE, ACS, suspect less likely intra-abdominal pathology given cholecystectomy and appendectomy however pancreatitis is considered. Morphine and Zofran ordered for symptoms. Laboratory workup ordered including chest x-ray. Patient became hypoxic at 89% requiring 2 L nasal cannula. Breathing treatments ordered. EKG and chest x-ray reviewed see below.CBC with mild leukocytosis of 11.5. No anemia. CMP relatively unremarkable except for hyperglycemia. Lipase unremarkable. D-dimer elevated at 2.69. CTA chest ordered to assess for PE. On chart review, patient has a history of DVT but is not on anticoagulation. I spoke to the patient about this. She states that her blood clot was unprovoked however she was taken off anticoagulation after receiving it for 6 months. Troponin x 2 unremarkable. CTA chest positive for pulmonary embolism of the distal main right pulmonary artery extending into the ascending and descending pulmonary arteries. No right heart strain. It was personally contacted by the radiologist. Patient also has groundglass densities in both lower lobes consistent with subsegmental atelectasis. Patient symptoms are likely secondary to PE. She was updated of all the results and the plan to start heparin drip. Patient will warrant admission. She confirmed understanding. Patient was discussed with the hospitalist who accepted admission. EKG: Interpreted by me/EM physician: EKG shows sinus rhythm with first-degree AV block. PACs. No ST elevation. Heart rate 98. Diagnostic: Interpreted by me/EM physician: Chest x-ray without pneumonia, effusion, cardiomegaly, pneumothorax 35 minutes of critical care time utilized in managing the patient. This is due to high probability of and deterioration of the patient based on the patient's condition and excludes any separately billable procedures. Impression: 1. Acute hypoxia requiring nasal cannula 2. Pulmonary embolism of the distal main right pulmonary artery extending into the ascending and descending pulmonary arteries 3. Viral syndrome 4. Hyperglycemia with no diabetes Lab Data Labs: Laboratory Results - last 24 hr 10/18/24 10/18/24 10/18/24 18:45 18:48 20:40 WBC 11.5 H RBC 4.89 Hgb 14.1 Hct 43.4 MCV 88.8 MCH 28.8 MCHC 32.5 RDW Std Deviation 45.1 H RDW Coeff of Layla 13.9 Plt Count 186 MPV 9.8 Immature Gran % (Auto) 0.300 Neut % (Auto) 80.2 H Lymph % (Auto) 11.1 L [place] % (Auto) 6.9 Eos % (Auto) 0.8 Baso % (Auto) 0.7 Absolute Neuts (auto) 9.3 H Absolute Lymphs (auto) 1.28 Nucleated RBC % 0 PT 13.2 INR 1.0 APTT 24.8 D-Dimer Quant (PE/DVT) 2.69 H* Sodium 139 Potassium 4.0 Chloride 102 Carbon Dioxide 21.3 Anion Gap 15 BUN 18 Creatinine 0.75 Estim Creat Clear Calc 92.12 Est GFR (MDRD) Non-Af 90 BUN/Creatinine Ratio 23.5 H Glucose 224 H Calcium 9.5 Total Bilirubin 0.56 AST 18 ALT 10 Alkaline Phosphatase 99 Troponin T High Sens 9 Troponin T Hi Sens 2 Hr 8 Total Protein 7.7 Albumin 3.9 Globulin 3.9 Albumin/Globulin Ratio 1.0 Lipase 16 Radiography Diagnostic Testing: Clinical Impression(s) from Imaging Studies Chest X-Ray 10/18/24 20:09 IMPRESSION: No definite acute airspace abnormality. Reading Location: [facility] Chest CTA 10/18/24 20:50 IMPRESSION: Positive for pulmonary embolism of the distal main right pulmonary artery extending into the into the ascending and descending pulmonary arteries. No right heart strain. Dr. Nance was notified on 10/18/2024 at 2130. Reading Location: [id number] Discharge Plan Disposition Disposition: Acute Care Hospital [facility] Discharge Date/Time: 10/18/24 22:59
[2024-10-18] MEDS: Ondansetron 4 MG/2 ML Vial IV (20:07)
[2024-10-18 20:09] LABS: AST(SGOT) 18 U/L (<=31); Alanine Aminotransfer ALT/SGPT 10 U/L (<=34); Albumin, Serum 3.9 g/dL (3.4-4.8); Alkaline Phosphatase 99 U/L (35-104); Anion Gap 15 (5-15); BUN 18 mg/dL (4-19); BUN/Creat Ratio 23.5 RATIO (10-20); Calcium,Total 9.5 mg/dL (7.6-11.0); Carbon Dioxide 21.3 mmol/L (21.0-32.0); Chloride 102 mmol/L (98-108); Creatinine, Serum 0.75 mg/dL (0.70-1.20); EST Glomerular Filtration Rate 90 (>60); Estimated Creatinine Clearance 92.12 ml/min (50-250); Globulin 3.9 g/dL (2.2-4.2); Glucose 224 mg/dL (70-99); Lipase 16 U/L (13-75); Protein, Total 7.7 g/dL (5.9-8.4); Sodium Level 139 mmol/L (133-145); Total Bilirubin 0.56 mg/dL (0.00-1.30)
--- NOTE | 2024-10-18 20:09 | RAD_ITS ---
PROCEDURE: CHEST PA AND LATERAL 10/18/2024 REASON FOR EXAM: COUGH TECHNIQUE: Frontal and lateral views of the chest. COMPARISON: None FINDINGS: Low lung volumes. Possible mild cardiomegaly. Linear bibasilar opacities favoring scarring/atelectasis. Lungs are otherwise clear. No pleural effusion or sizable pneumothorax. Severe thoracic kyphosis and dextroscoliosis. RAD/Chest PA and Lateral IMPRESSION: No definite acute airspace abnormality. Reading Location: [facility]
[2024-10-18] MEDS: Ipratropium/Albuterol Sulfate 3 ML AMPUL.NEB 6 ML INHALATION (20:21)
[2024-10-18 20:22] LABS: D-Dimer Quantitative (DVT/PE) 2.69 FEU/ug/m (0.27-0.49)
[2024-10-18] MEDS: 0.9% Normal Saline (1000mL) 1,000 ML 999 ML IV (20:37)
[2024-10-18] MEDS: fentaNYL 100 MCG/2 ML Ampul 50 MCG IV ×2 (20:37→21:49)
--- NOTE | 2024-10-18 20:39 | CPS ---
[2021] x2 Duoneb given to pt. in ER. (6mL)
--- NOTE | 2024-10-18 20:50 | CT_ITS ---
PROCEDURE: CTA CHEST W/WO CONTRAST 10/18/2024 REASON FOR EXAM: ELEVATED D-DIMER, SHORTNESS OF BREATH TECHNIQUE: CTA imaging of the chest with intravenous contrast. Coronal and Sagittal reconstruction series were provided. 3D, 3D post processing, 3D reconstructions, Maximum intensity projection (MIPs) Volume rendering and Shaded surface rendering was provided. One or more dose reduction techniques were used (e.g., Automated exposure control, adjustment of the mA and/or kV according to patient size, use of iterative reconstruction technique). FINDINGS: Thoracic Aorta: Unremarkable. Heart: No cardiomegaly. Calcified coronary plaque is present. No right ventricular dilatation to suggest right heart strain. Pulmonary Vessels: Tubular filling defect within the distal main right pulmonary artery extending into the ascending and descending pulmonary arteries consistent with pulmonary embolism. Hardware: None Lymph nodes: Unremarkable. Lungs and Airways: Ground-glass densities in both lower lobes consistent with subsegmental atelectasis. Pleura: No pleural effusion. Upper Abdomen: Status post cholecystectomy. Bones: Moderate dextroscoliosis of the thoracolumbar spine with degenerative disc disease. CT/CTA Chest W/WO Contrast IMPRESSION: Positive for pulmonary embolism of the distal main right pulmonary artery exten ding into the into the ascending and descending pulmonary arteries. No right heart strain. Dr. Nance was notified on 10/18/2024 at 2130. Reading Location: [id number]
[2024-10-18 21:18] LABS: Troponin T High Sensitivity 9 ng/L (<=14)
[2024-10-18 21:29] LABS: Troponin T High Sens 2 HR 8 ng/L (<=14)
[2024-10-18] MEDS: Heparin Injection (Vial) 5,000 UNIT/ML VIAL 4000 UNIT IV (21:50)
--- NOTE | 2024-10-18 21:52 | PCM.HP.STD ---
[facility] - General General Date of Admission: 10/18/24 Date of Service: 10/18/24 Chief Complaint: SOB and RUQ Pain. [facility] Narrative CAITLIN OSBORNE, is a 59 F with a past medical history of essential hypertension; on losartan, amlodipine and furosemide, hyperlipidemia; on atorvastatin, history of total thyroidectomy (2021) with subsequent hypothyroidism; on levothyroxine, morbid obesity with BMI of 41.6 this admission, DM-2; of unknown control on metformin twice daily plus dapagliflozin, diabetic neuropathy; on gabapentin 3 times daily, history of DVT (~2014); currently not on active anticoagulation, positive family history of blood clots in her mother, history of RA; on hydroxychloroquine twice daily plus leflunomide daily and as needed prednisone, history of vertigo; on as needed meclizine 3 times daily, history of laparoscopic cholecystectomy, history of appendectomy, GERD; on pantoprazole twice daily as needed and history of admission here from January 28, 2024 to January 31, 2020 for treatment of suspected acute pancreatitis with negative CT findings and negative MRCP with suspicions and leaning toward PUD with the patient placed on PPI twice daily plus sucralfate with a EGD done on January 30, 2025 showing acute duodenitis with portal hypertensive gastropathy and small esophageal varices and GI planning for liver FibroScan and liver biopsy in the outpatient setting with patient also noted to have incidental lesion noted bilateral adrenal nodules ~2.6 cm on the Right and ~2.1 cm on the Left on abdominal CT that was to be monitored as an outpatient who presents to [facility] ER complaining of shortness of breath and Right upper quadrant pain. Ms. Osborne reports her symptoms began approximately 11 AM on the morning of October 18, 2024 with the abrupt-onset of RUQ pain which was sharp and worse when she took a deep breath. She admits to recently having a viral upper respiratory infection but denies other recent illness, trauma, surgery or recent significant travel. She states she has been taken off of her anticoagulants after approximately 6 months from her previously diagnosed DVT in 2014 with no issues since that time. She admits to nonproductive cough and significant shortness of breath at rest with profound fatigue. She states her symptoms are similar to her previous presentation of pneumonia. She denies associated fever, chills, nausea, vomiting, diarrhea, constipation, chest pain, palpitations, heart racing, dysuria, headache or rash. In the ER she was noted to have a highly elevated D-dimer of 2.69 present on admission followed by CTA of the chest with IV contrast that revealed positive for pulmonary embolism of the distal main Right pulmonary artery extending into the ascending and descending pulmonary arteries with no evidence of Right heart strain complicated by clinical evidence of Acute Respiratory Insufficiency with ABG done at 2356 hrs. revealing pH 7.34/ pCO2 43.7 mmHg/ PaO2 57 mmHg/ HCO3 23.7 mmol/L at 87% on 2L NC. She was then admitted to the PCU for ongoing care for a stay that is expected to extend beyond 2 midnights. [facility] Medical History (Updated 10/19/24 @ 03:[address] Nhan Robles, DO) Renal cyst Adrenal nodule Loss of hearing Wears glasses Wears dentures History of steroid therapy Thyroid disease DVT (deep venous thrombosis) High cholesterol Back pain Vertigo Heartburn Smoker Shortness of breath on exertion Leg cramps Hypertension Cardiology follow-up encounter History of Holter monitoring History of echocardiogram History of stress test Lightheadedness Near syncope Mixed hyperlipidemia History of left heart catheterization (LHC) (~03/24/22) Abnormal cardiac CT angiography Tachycardia Essential hypertension Kyphosis Rheumatoid arthritis Home Medications ?Medication ?Instructions ?Recorded ?Last Taken ?Type meclizine 25 mg tablet 25 mg PO TID PRN dizziness 12/16/21 Unknown History amlodipine 10 mg tablet 10 mg PO DAILY bp 01/01/22 04/15/22 History hydroxychloroquine 200 mg tablet 200 mg PO BID ra 01/01/22 Unknown History losartan 100 mg tablet 100 mg PO DAILY 01/01/22 04/15/22 History levothyroxine 150 mcg tablet See Rx Instructions .Route 11/02/22 Unknown Rx .COMPLEX thyroid #90 tabs metformin 1,000 mg tablet 1,000 mg PO BID dm 11/16/22 Unknown History prednisone 10 mg tablet 10 mg PO DAILY PRN ARTHRITIS FLARE 11/16/22 Unknown History UP atorvastatin 20 mg tablet See Rx Instructions .Route 05/05/23 Unknown Rx .COMPLEX hld #90 tabs cetirizine 10 mg tablet 10 mg PO DAILY PRN allergies 01/28/24 Unknown History gabapentin 100 mg capsule 100 mg PO TID pain 01/28/24 Unknown History leflunomide 20 mg tablet 20 mg PO DAILY 01/28/24 Unknown History bismuth subsalicylate 262 mg 1 tab PO Q6H diarrhea #56 tabs 02/08/24 Unknown Rx chewable tablet (Soothe (bismuth subsalicylate)) dapagliflozin propanediol 10 mg 10 mg PO DAILY 10/18/24 Unknown History tablet (Farxiga) furosemide 20 mg tablet 20 mg PO DAILY 10/18/24 Unknown History pantoprazole 40 mg tablet,delayed 40 mg PO Q12H PRN GERD 10/18/24 Unknown History release Allergy/AdvReac Type Severity Reaction Status Date / Time Sulfa (Sulfonamide Allergy Unknown Hives Verified 10/18/24 18:35 Antibiotics) Family History Sister Breast cancer Hypertension Diabetes Sister Myocardial infarction, Onset Age: 30 Surgical History History of total thyroidectomy History of cardiac catheterization (~02/2022) S/P thyroid biopsy (~02/2022) History of laparoscopic cholecystectomy History of appendectomy Social History Smoking Status: Current every day smoker tobacco type: cigarettes Tobacco: How many years used: 30 second hand exposure: Yes alcohol intake: current alcohol intake frequency: holidays/special occasions only substance use type: does not use caffeine: Yes Type: coffee Number of servings: 3 seatbelt use: always ROS ROS Narrative Review of Systems: Constitutional: Patient denies fever or chills. Eyes: Patient denies changes in vision or discharge from eyes. ENT: Patient admits to runny nose but she denies sore throat or ear pain. Resp: Patient admits to nonproductive cough and shortness of breath as per HPI. CV: Patient denies chest pain, palpitations, heart racing or lower extremity edema. GI: Patient admits to RUQ abdominal pain as per HPI. She denies nausea, vomiting, diarrhea or constipation. : Patient denies dysuria or hematuria. MSK: Patient denies arthralgias or myalgias but she does admit to generalized weakness. Skin: Patient denies rash, abscess, wounds or jaundice. Psych: Patient denies symptoms of uncontrolled depression or anxiety. Neuro: Patient denies headache, paresthesias or focal neurologic deficits. Allergy: Patient denies lip swelling, tongue swelling or urticaria. Hematology: Patient denies easy bleeding or easy bruisability but she does admit to previous DVT in 2015. Endocrinology: Patient denies polyuria, polydipsia, polyphagia or heat/cold intolerance. 14 point ROS otherwise negative except for positives noted above in HPI. Vital Signs Vital Signs Vital Signs: 10/18/24 18:34 10/18/24 19:33 10/18/24 20:01 Temperature 98.6 F Temperature Source Temporal Pulse Rate 111 H 99 Respiratory Rate 22 H 25 H Respiratory Effort Short of Breath Respiratory Depth Shallow Respiratory Pattern Tachypnea Blood Pressure 143/70 H 84/63 L Blood Pressure Mean 94 70 Pulse Ox 94 86 Oxygen Delivery Method Room Air Room Air Oxygen Flow Rate (L/min) 10/18/24 20:06 10/18/24 20:09 10/18/24 20:10 Temperature Temperature Source Pulse Rate 97 Respiratory Rate 20 H 16 Respiratory Effort Respiratory Depth Respiratory Pattern Blood Pressure 98/66 Blood Pressure Mean 76 Pulse Ox 89 92 Oxygen Delivery Method Nasal Cannula Nasal Cannula Nasal Cannula Oxygen Flow Rate (L/min) 2 2 2 10/18/24 20:18 10/18/24 20:18 10/18/24 20:21 Temperature Temperature Source Pulse Rate 102 H 107 H Respiratory Rate 24 H Respiratory Effort Short of Breath Respiratory Depth Respiratory Pattern Tachypnea Tachypnea Blood Pressure Blood Pressure Mean Pulse Ox Oxygen Delivery Method Oxygen Flow Rate (L/min) 10/18/24 21:11 10/18/24 21:14 Temperature 98.5 F Temperature Source Oral Pulse Rate 106 H Respiratory Rate 21 H Respiratory Effort Respiratory Depth Respiratory Pattern Blood Pressure Blood Pressure Mean Pulse Ox 83 94 Oxygen Delivery Method Nasal Cannula Nasal Cannula Oxygen Flow Rate (L/min) 3 2 Weight Weight: 235 lb Body Mass Index (BMI) 41.6 Results Lab / Micro Data 10/18/24 18:48 10/18/24 18:48 Labs: Laboratory Results - last 24 hr 10/18/24 18:45: Troponin T High Sens 9 10/18/24 18:48: WBC 11.5 H, RBC 4.89, Hgb 14.1, Hct 43.4, MCV 88.8, MCH 28.8, MCHC 32.5, RDW Std Deviation 45.1 H, RDW Coeff of Layla 13.9, Plt Count 186, MPV 9.8, Immature Gran % (Auto) 0.300, Neut % (Auto) 80.2 H, Lymph % (Auto) 11.1 L, [place] % (Auto) 6.9, Eos % (Auto) 0.8, Baso % (Auto) 0.7, Absolute Neuts (auto) 9.3 H, Absolute Lymphs (auto) 1.28, Nucleated RBC % 0, D-Dimer Quant (PE/DVT) 2.69 H*, Sodium 139, Potassium 4.0, Chloride 102, Carbon Dioxide 21.3, Anion Gap 15, BUN 18, Creatinine 0.75, Estim Creat Clear Calc 92.12, Est GFR (MDRD) Non-Af 90, BUN/Creatinine Ratio 23.5 H, Glucose 224 H, Calcium 9.5, Total Bilirubin 0.56, AST 18, ALT 10, Alkaline Phosphatase 99, Total Protein 7.7, Albumin 3.9, Globulin 3.9, Albumin/Globulin Ratio 1.0, Lipase 16 10/18/24 20:40: Troponin T Hi Sens 2 Hr 8 Micro: Microbiology 10/18/24 20:11 Mucosa - Nose SARS-CoV-2, Influenza & RSV (PCR) - Final Imaging Radiology Impression Chest X-Ray 10/18/24 20:09 IMPRESSION: No definite acute airspace abnormality. Reading Location: [facility] Chest CTA 10/18/24 20:50 IMPRESSION: Positive for pulmonary embolism of the distal main right pulmonary artery extending into the into the ascending and descending pulmonary arteries. No right heart strain. Dr. Nance was notified on 10/18/2024 at 2130. Reading Location: [id number] Assessment & Plan Assessment/Plan (1) Pulmonary embolism: QUALIFIERS: Acute cor pulmonale presence: without acute cor pulmonale Chronicity: acute Pulmonary embolism type: unspecified Qualified Code(s): I26.99 - Other pulmonary embolism without acute cor pulmonale (2) Acute respiratory insufficiency: (3) DVT (deep venous thrombosis): QUALIFIERS: Affected thrombotic vein of extremity: unspecified vein of extremity Chronicity: unspecified DVT location: lower extremity Laterality: unspecified laterality Qualified Code(s): I82.409 - Acute embolism and thrombosis of unspecified deep veins of unspecified lower extremity (4) Morbid obesity with BMI of 40.0-44.9, adult: PLAN: Plan 1. Highly elevated D-dimer of 2.69 present on admission followed by CTA of the chest with IV contrast that revealed positive for pulmonary embolism of the distal main Right pulmonary artery extending into the ascending and descending pulmonary arteries with no evidence of Right heart strain - Admit to PCU. Continue IV heparin begun in the ER and titrate per protocol. Check lower extremity Doppler in a.m. to evaluate for residual clot burden. Check echocardiogram in a.m. to evaluate for evidence of RV strain. Serialize troponin give acetaminophen as needed for mild--moderate (level 1-5/10) pain or fever. Give morphine IV as needed for severe (level 6-10/10) pain. 2. Acute Respiratory Insufficiency with ABG done at 23:56 hrs. revealing pH 7.34/ pCO2 43.7 mmHg/ PaO2 57 mmHg/ HCO3 23.7 mmol/L at 87% on 2L NC due to #1 - Wean supplemental oxygen as tolerated if possible. 3. History of DVT (~2014); currently not on active anticoagulation with positive family history of blood clots in her mother complicating #1 & #2 - Patient should remain on life-long anticoagulation from this point in time in light of potentially life-threatening PE outlined in #1. 4. Morbid Obesity; with BMI of 41.6 this admission adding to the burden of disease outlined from #1 - #3 - Weight possibly recommended. Check TSH. This complicates her case may hamper recovery. 5. History of admission here from January 28, 2024 to January 31, 2020 for treatment of suspected acute pancreatitis with negative CT findings and negative MRCP with suspicions and leaning toward PUD with the patient placed on PPI twice daily plus sucralfate with a EGD done on January 30, 2025 showing acute duodenitis with portal hypertensive gastropathy and small esophageal varices and GI planning for liver FibroScan and liver biopsy in the outpatient setting with patient also noted to have incidental lesion noted bilateral adrenal nodules ~2.6 cm on the Right and ~2.1 cm on the Left on abdominal CT that was to be monitored as an outpatient - Noted. 6. Essential hypertension; on losartan, amlodipine and furosemide - Resume home regimen plus give as needed IV hydralazine for systolic blood pressure greater than 160 mmHg. 7. Hyperlipidemia; on atorvastatin - Maintain statin and check lipid profile this admission. 8. History of total thyroidectomy (2021) with subsequent hypothyroidism; on levothyroxine - Continue current levothyroxine and check TSH. 9. DM-2; of unknown control on metformin twice daily plus dapagliflozin - Hold oral hypoglycemic medications while inpatient. Give ADA/cardiac diet with FSBS q. AC/HS plus lowest-intensity SSI. Finally, we will check hemoglobin A1c to objectively evaluate quality of diabetic control. 10. Diabetic neuropathy; on gabapentin 3 times daily - Maintain current treatment. 11. History of RA; on hydroxychloroquine twice daily plus leflunomide daily and as needed prednisone - Stable with no evidence of acute flare at this time. 12. History of vertigo; on as needed meclizine 3 times daily - Continue prn meclizine if vertigo develops. 13. History of laparoscopic cholecystectomy - Noted. 14. History of appendectomy - Noted. 15. GERD; on pantoprazole twice daily as needed - Resume current therapy. 16. DVT prophylaxis - Patient already on IV heparin for #1. Total time: Approximately (but not less than) 75 minutes. Charges/Coding Visit Charges Inpatient E&M: 20801 Init Hosp L3
[2024-10-18 21:53] LABS: Prothrombin Time (Protime)PT. 13.2 SECONDS (11.7-14.9)
[2024-10-18 21:54] LABS: Partial Thromboplast Time 24.8 Seconds (24.1-36.2)
[2024-10-18] MEDS: HEPARIN/D5w 25,000 UNITS 25,000 UNITS/250 ML IV.SOLN. 10 UNITS CONT INF (21:55)
[2024-10-19] VITALS (21 sets, daily range): BP systolic 104–131; BP diastolic 62–90; PULSE 98–106; RESP 16–26; TEMP 36.1–36.8; O2SAT 87–100
[2024-10-19] LABS: Allen Test Positive; Base Excess -2 mmol/L (-2 to +2); Bicarbonate 23.7 mmol/L (22-26); Blood Gas Specimen Type ART; Mode Not entered; O2 Delivery Device Cannula; PO2 57 mmHG (75-100); SITE L Brach; SO2 87 % (95-99); Total Carbon Dioxide 25 mmol/L; pCO2 43.7 mmHg (35-45); pH 7.34 (7.35-7.45)
--- NOTE | 2024-10-19 00:53 | ED.RN ---
See downtime charting.
--- NOTE | 2024-10-19 01:23 | VDLE_ITS ---
Reason For Study Reason For Study: PE/ Hypoxia RIGHT LEFT GSV is normal. GSV is normal. CFV is patent and compressible. CFV is compressible, phasic, and INCOMPETENT for Acute deep vein thrombosis is noted in the FV. It is greater than 1.0 second. dilated and NONCOMPRESSIBLE. FV is compressible, spontaneous, phasic, competent Acute deep vein thrombosis is noted in the POP V. It and demonstrates normal augmentation. is dilated and NONCOMPRESSIBLE. POP V is compressible, spontaneous, phasic, competent Acute deep vein thrombosis is noted in the T/P Trunk. and demonstrates normal augmentation. It is dilated and NONCOMPRESSIBLE. T/P Trunk is compressible. Acute deep vein thrombosis is noted in the PTV. It is PTV is compressible. dilated and NONCOMPRESSIBLE. LT PerV is compressible. Acute deep vein thrombosis is noted in the Per V. It is dilated and NONCOMPRESSIBLE. Procedure This is a venous duplex using B-mode, color flow and spectral Doppler. Exam performed portable in patient room. The exam was diagnostic. A preliminary report was called and/or faxed to PCU porcelain finisher. VL/Venous Duplex US - Mario Extrem Interpretation Summary Acute deep vein thrombosis noted in the right femoral vein, popliteal vein, tib ioperoenal trunk vein, posterior tibial vein, peroneal vein. Deep veins of the left lower extremity are patent and compressible segmentally. There is no evidence of left lower extremity deep vein thrombosis. Ordering Physician: Nhan Robles Referring Physician: Nehemias Arizmendi Performed By: Quirino Rodriguez RVT
--- NOTE | 2024-10-19 01:30 | ECHOCS_ITS ---
Reason For Study Reason For Study: possible heart strain (new PE) Procedure This was a 2D Doppler, Color Flow transthoracic echocardiogram. The study was technically difficult. The study was technically limited. Due to pain, coughing & body habitus. Contrast injection was performed. Exam performed portable in patient room. Left Ventricle Normal LV size. Left ventricular systolic function is normal. Stage 1 diastolic dysfunction. No regional wall motion abnormalities noted. Right Ventricle Normal RV size. Normal systolic function. Atria Normal left atrium. Normal right atrium. Mitral Valve Normal mitral valve. Tricuspid Valve Normal tricuspid valve. Unable to estimate RV systolic pressure due to insufficient tricuspid regurgitant envelope. Pulmonic Valve Normal pulmonic valve. Great Vessels Normal aortic root. The pulmonary artery is normal size. Normal inferior vena cava. Pericardium/Pleural No pericardial effusion. Medication Diluted definity 2.5ml given slow IV push to enhance endocardial definition. MMode/2D Measurements & Calculations LVIDd: 4.0 cm IVSd: 1.0 cm Ao root diam: 3.2 cm LVIDs: 2.9 cm LVPWd: 0.99 cm FS: 26.0 % LVAd ap4: 25.9 cm2 LVAd ap2: 22.0 cm2 SV(MOD-sp4): 38.9 ml LVLd ap4: 8.0 cm LVLd ap2: 8.0 cm SI(MOD-sp4): 19.7 ml/m2 EDV(MOD-sp4): 69.6 ml EDV(MOD-sp2): 49.6 ml EDV(sp4-el): 71.4 ml EDV(sp2-el): 51.3 ml LVAs ap4: 15.0 cm2 LVAs ap2: 12.8 cm2 LVLs ap4: 6.2 cm LVLs ap2: 6.5 cm ESV(MOD-sp4): 30.7 ml ESV(MOD-sp2): 21.7 ml ESV(sp4-el): 30.8 ml ESV(sp2-el): 21.3 ml EF(MOD-sp4): 55.8 % EF(MOD-sp2): 56.2 % EF(sp4-el): 56.8 % SV(MOD-sp2): 27.9 ml SV(sp4-el): 40.6 ml TAPSE: 1.9 cm SI(MOD-sp2): 14.1 ml/m2 Time Measurements MV dec time: 0.13 sec Doppler Measurements & Calculations MV E max ajit: 102.0 cm/sec Lat Peak E' Ajit: 9.6 cm/sec Med Peak E' Ajit: 8.9 cm/sec MV A max ajit: 152.9 cm/sec E/E' lat: 10.7 E/E' med: 11.4 MV E/A: 0.67 Ao V2 max: 155.8 cm/sec LV V1 max: 111.5 cm/sec PA V2 max: 104.7 cm/sec Ao max P.7 mmHg LV V1 max P.0 mmHg PA V2 mean: 62.2 cm/sec Ao V2 mean: 114.3 cm/sec LV V1 mean P.9 mmHg Ao mean P.8 mmHg LV V1 mean: 78.7 cm/sec Ao V2 VTI: 29.1 cm LV V1 VTI: 21.0 cm AV (velocity ratio): 0.72 ECHO/Echo Complete W/ Contrast Interpretation Summary Normal LV size. Left ventricular systolic function is normal. Stage 1 diastolic dysfunction. Contrast injection was performed. Ordering Physician: Nhan Robles Referring Physician: Nehemias Arizmendi Performed By: Elida Foley, NEGIN, RVT
[2024-10-19] MEDS: 0.9% Normal Saline (1000mL) 1,000 ML 100 ML IV (01:37)
[2024-10-19] MEDS: fentaNYL 100 MCG/2 ML Ampul 25 MCG IV ×2 (02:34→06:59)
[2024-10-19 04:06] LABS: Absolute Lymphocyte Count 0.71 X10^3/uL (0.83-4.51); Absolute Neutrophil Count 10.6 X10^3/uL (2.0-7.7); Basophil# 0.06 X10^3/uL; Basophil% 0.5 % (0-1); Eosinophils% 0.8 % (0-5); Hematocrit 38.4 % (37-47); Hemoglobin 12.3 g/dL (12.0-15.0); Lymphocyte # 0.71 X10^3/ul (0.83-4.51); Lymphocyte % 5.7 % (19-41); Mean Corpuscular Hgb 28.5 pg (27.0-32.0); Mean Corpuscular Volume 89.1 fL (81-99); Mean Platelet Vol. 9.8 fl (6.2-12.0); Monocyte# 0.93 X10^3/uL; Monocyte% 7.4 % (0-10); NRBC Flagged by Analyzer 0 % (0-5); Neutrophil # 10.64 X10^3/uL (2.7-7.7); Neutrophil % 85.1 % (47-70); POSITIVE MORPHOLOGY YES; Platelet Count 159 K/mm3 (150-450); RBC Distribution Width CV 13.9 % (11.6-14.6); RBC Distribution Width SD 45.5 fl (35.1-43.9); Red Blood Count 4.31 M/mm3 (4.2-5.4); White Blood Count 12.5 K/mm3 (4.4-11.0)
[2024-10-19 04:15] LABS: Differential Indicated SCAN CRITERIA MET
[2024-10-19 04:24] LABS: Partial Thromboplast Time 40.2 Seconds (24.1-36.2)
[2024-10-19 04:30] LABS: ALB/GLOB Ratio 0.8 RATIO (0.9-2.4); AST(SGOT) 11 U/L (<=31); Alanine Aminotransfer ALT/SGPT 8 U/L (<=34); Alkaline Phosphatase 77 U/L (35-104); Anion Gap 13 (5-15); BUN 15 mg/dL (4-19); BUN/Creat Ratio 23.7 RATIO (10-20); Calcium,Total 8.6 mg/dL (7.6-11.0); Carbon Dioxide 20.6 mmol/L (21.0-32.0); Chloride 105 mmol/L (98-108); Creatinine, Serum 0.65 mg/dL (0.70-1.20); EST Glomerular Filtration Rate 100 (>60); Estimated Creatinine Clearance 99.61 ml/min (50-250); Globulin 3.8 g/dL (2.2-4.2); Glucose 242 mg/dL (70-99); Magnesium 1.7 mg/dL (1.5-2.2); Phosphorus 3.2 mg/dL (2.7-4.5); Potassium 3.6 mmol/L (3.3-5.1); Protein, Total 6.8 g/dL (5.9-8.4); Sodium Level 139 mmol/L (133-145); Thyroid Stim Hormone (TSH) 0.106 uIU/mL (0.300-4.200); Total Bilirubin 0.37 mg/dL (0.00-1.30)
[2024-10-19 05:12] LABS: Allen Test Positive; Base Excess -3 mmol/L (-2 to +2); Bicarbonate 21.8 mmol/L (22-26); Blood Gas Specimen Type ART; Mode Not entered; O2 Delivery Device Cannula; PO2 150 mmHG (75-100); SITE R Radial; SO2 99 % (95-99); Total Carbon Dioxide 23 mmol/L; pCO2 36.5 mmHg (35-45); pH 7.38 (7.35-7.45)
[2024-10-19 08:06] LABS: Free T3 1.9 pg/mL (2.18-3.98)
[2024-10-19 08:58] LABS: Pro- Brain NATRIURETIC PEPTIDE 317 pg/mL (<=900)
[2024-10-19 10:56] LABS: Partial Thromboplast Time 45.2 Seconds (24.1-36.2)
[2024-10-19] MEDS: 0.9% Saline Lock 10 ML Syringe IV ×2 (11:48→18:13)
[2024-10-19] MEDS: oxyCODONE 5 MG Tablet PO ×3 (11:48→21:34)
[2024-10-19] MEDS: Acetaminophen 325 MG Tablet 650 MG PO ×2 (11:48→18:16)
--- NOTE | 2024-10-19 13:29 | CASEMGMT ---
CACHORRO HUYNH Assessment Face to Face with patient for initial transition planning/care coordination assessment. CACHORRO HUYNH introduced self and role at [facility], pt voices understanding. Pt is A&Ox4 and is resting comfortably in the chair and is calm. Care providers, pharmacy, and demographics verified. Admitting dx: Large PE LACE Strata: 2 PCP: Nehemias Arizmendi Specialists: Rachel (Rheumatology) Preferred Pharmacy: [facility] Insurance: [employer] Prescription Benefit: Yes LNOK: Steve (H), Eusebio (Son) Living Arrangements: Pt lives with her in a single story home with 2 steps to enter. Pt states that her son does stay with them occasionally. ADLs/IADLs: Pt states that she is independent. Transportation: Self, . Denies concerns DME: Pt is currently requiring additional oxygen and may qualify for home oxygen use. A verbal list of local in-network DME companies were provided to the pt at this time. Pt prefers [employer]. BP Machine. Pulse ox. [employer]. Cane. Pt states that she does not need to check her BS levels at home currently. Pt does not have a BGM or supplies. Pt states that she would be willing to accept an Rx for this if warranted. HHC/SNF: Denies Pt?s goal: Home Plan: Home with once medically ready - follow for oxygen, blood thinning Rx, and BGM Rx needs. 6-Click score is 18. Pt denies the need for HH or OP Tx now. Pt states that she has plenty of support at home through her , son, sister, and daughter. Pt denies further questions or concerns at this time. Report given to FEATHER RENOVATOR CM. Jade Talamantes RN, CM
--- NOTE | 2024-10-19 16:14 | PN.HOSP_ITS ---
Reason for Visit Reason for Visit: Diagnoses Morbid (severe) obesity due to excess calories (10/18/24) Other pulmonary embolism without acute cor pulmonale (10/18/24) Acute embolism and thrombosis of unspecified deep veins of unspecified lower extremity (10/18/24) Other abnormalities of breathing (10/18/24) Hypoxemia (10/18/24) Right upper quadrant pain (10/18/24) Body mass index [BMI] 40.0-44.9, adult (10/18/24) Subjective Subjective Patient was seen and examined today, she is requiring high flow oxygen, I talked with vascular surgery about her care, they did not feel that her clot burden was enough to warrant a thrombectomy. Patient had a venous duplex of her lower extremities which did show clots. Patient denies being on oxygen at home. Objective Data Objective Data Vital Signs: Vital Signs Temp Pulse Resp BP Pulse Ox O2 Del Method O2 Flow Rate 98.3 F 100 21 H 114/69 92 High Flow 10 10/19/24 09:37 10/19/24 14:00 10/19/24 14:00 10/19/24 14:00 10/19/24 14:00 10/19/24 14:00 10/19/24 14:00 Oxygen Flow Rate (L/min) 10 Oxygen Delivery Method High Flow Weight: 98.4 kg Body Mass Index (BMI) 39.6 Intake & Output: Intake and Output for Last 24 Hours 10/17/24 10/18/24 10/19/24 23:59 23:59 23:59 Intake Total 1000 / 1000 1147.83 / 1147.83 Balance 1000 / 1000 1147.83 / 1147.83 Lab / Micro Data 10/19/24 03:53 10/19/24 03:53 Labs: Laboratory Results - last 24 hr 10/18/24 18:45: Troponin T High Sens 9 10/18/24 18:48: WBC 11.5 H, RBC 4.89, Hgb 14.1, Hct 43.4, MCV 88.8, MCH 28.8, MCHC 32.5, RDW Std Deviation 45.1 H, RDW Coeff of Layla 13.9, Plt Count 186, MPV 9.8, Immature Gran % (Auto) 0.300, Neut % (Auto) 80.2 H, Lymph % (Auto) 11.1 L, [place] % (Auto) 6.9, Eos % (Auto) 0.8, Baso % (Auto) 0.7, Absolute Neuts (auto) 9.3 H, Absolute Lymphs (auto) 1.28, Nucleated RBC % 0, PT 13.2, INR 1.0, APTT 24.8, D-Dimer Quant (PE/DVT) 2.69 H*, Sodium 139, Potassium 4.0, Chloride 102, Carbon Dioxide 21.3, Anion Gap 15, BUN 18, Creatinine 0.75, Estim Creat Clear Calc 92.12, Est GFR (MDRD) Non-Af 90, BUN/Creatinine Ratio 23.5 H, Glucose 224 H , Calcium 9.5, Total Bilirubin 0.56, AST 18, ALT 10, Alkaline Phosphatase 99, Total Protein 7.7, Albumin 3.9, Globulin 3.9, Albumin/Globulin Ratio 1.0, Lipase 16 10/18/24 20:40: Troponin T Hi Sens 2 Hr 8 10/19/24 03:53: WBC 12.5 H, RBC 4.31, Hgb 12.3, Hct 38.4, MCV 89.1, MCH 28.5, MCHC 32.0, RDW Std Deviation 45.5 H, RDW Coeff of Layla 13.9, Plt Count 159, MPV 9.8, Immature Gran % (Auto) 0.500, Neut % (Auto) 85.1 H, Lymph % (Auto) 5.7 L, [place] % (Auto) 7.4, Eos % (Auto) 0.8, Baso % (Auto) 0.5, Absolute Neuts (auto) 10.6 H, Absolute Lymphs (auto) 0.71 L, Nucleated RBC % 0, APTT 40.2 H, Sodium 139, Potassium 3.6, Chloride 105, Carbon Dioxide 20.6 L, Anion Gap 13, BUN 15, C reatinine 0.65 L, Estim Creat Clear Calc 99.61, Est GFR (MDRD) Non-Af 100, B UN/Creatinine Ratio 23.7 H, Glucose 242 H, Calcium 8.6, Phosphorus 3.2, Magnesium 1.7, Total Bilirubin 0.37, AST 11, ALT 8, Alkaline Phosphatase 77, NT pro BNP II 317, Total Protein 6.8, Albumin 3.0 L, Globulin 3.8, Albumin/Globulin Ratio 0.8 L, TSH 0.106 L, Free T4 1.50 H, Free T3 pg/dL 1.9 L 10/19/24 10:15: APTT 45.2 H Micro: Microbiology 10/18/24 20:11 Mucosa - Nose SARS-CoV-2, Influenza & RSV (PCR) - Final ABG Data ABG results: ABG 10/18/24 10/19/24 23:56 05:07 Specimen Type ART ART Sample Site L Brach R Radial pH 7.34 L 7.38 Bicarbonate Actual 23.7 21.8 L Total CO2 Base Excess -2 -3 L O2 Saturation 87 L 99 O2 % 5.0 10.0 ABG pCO2 43.7 36.5 ABG pO2 57 L 150 H Christopher Test Positive Positive O2 Delivery Device Cannula Cannula Vent Mode Not entered Not entered Radiography Diagnostic Testing: Radiology Impression Chest X-Ray 10/18/24 20:09 IMPRESSION: No definite acute airspace abnormality. Reading Location: [facility] Chest CTA 10/18/24 20:50 IMPRESSION: Positive for pulmonary embolism of the distal main right pulmonary artery extending into the into the ascending and descending pulmonary arteries. No right heart strain. Dr. Nance was notified on 10/18/2024 at 2130. Reading Location: [id number] Echocardiogram 10/19/24 01:30 Interpretation Summary Normal LV size. Left ventricular systolic function is normal. Stage 1 diastolic dysfunction. Contrast injection was performed. Ordering Physician: Nhan Robles Referring Physician: Nehemias Arizmendi Performed By: Elida Foley, RDCS, RVT Physical Exam Const alert, oriented x3, no apparent distress and healthy appearing Constitutional Narrative: Patient has class II obesity General Appearance: cooperative, well kempt and well developed Orientation / Consciousness: awake, oriented to person, oriented to place and oriented to time HEENT normocephalic, head/scalp atraumatic and moist oral mucous membranes Eyes PERRL, EOMs intact bilaterally and conjunctivae normal Neck supple, no JVD, thyroid normal and no carotid bruits General: trachea midline Resp normal respiratory effort, no retractions, no use of accessory muscles and clear to auscultation bilaterally Auscultation: Negative for rales, rhonchi or wheezes Cardio regular rate, regular rhythm, S1 normal heart sound, S2 normal heart sound, no murmurs, no rub and no gallops GI normal to inspection, nondistended, normoactive bowel sounds, soft to palpation, non-tender and non-distended Extremity no clubbing, cyanosis or edema Skin no rashes or lesions noted General Skin Exam: no breakdown Neuro oriented x3, CN's II-XII intact bilaterally, moves all extremities, no focal motor deficits and no sensory deficits noted Sensorium / Orientation: awake and alert Speech: speech normal Psych affect normal Assessment & Plan Assessment/Plan (1) Pulmonary embolism: QUALIFIERS: Pulmonary embolism type: unspecified Chronicity: a cute Acute cor pulmonale presence: without acute cor pulmonale Qualified Code(s): I26.99 - Other pulmonary embolism without acute cor pulmonale PLAN: Plan 1. Pulmonary embolism in the distal main right pulmonary artery extending into the ascending and descending pulmonary arteries-patient will remain on a heparin drip at this time, if no intervention is planned patient will be transitioned over to Eliquis #2 hypoxic respiratory failure secondary to pulmonary embolism and severe thoracic scoliosis-pulse ox will be monitored, patient is currently on high flow oxygen #3 VTE of the lower extremities-again patient is on a heparin drip at this time #4 essential hypertension-patient is on amlodipine and losartan #5 type 2 diabetes-patient's blood sugar is being monitored, sliding scale insulin will be administered as indicated Total clinical time spent by myself addressing the patient's medical issues, reviewing all of her data, and collaborating the patient's care team: 35 minutes Charges/Coding Visit Charges Inpatient E&M: 92022 Subs Hosp L2
--- NOTE | 2024-10-19 17:21 | EX.PCM.CON.S ---
Assessment & Plan Assessment/Plan (1) Pulmonary embolism: QUALIFIERS: Pulmonary embolism type: unspecified Chronicity: acute Acute cor pulmonale presence: without acute cor pulmonale Qualified Code(s): I26.99 - Other pulmonary embolism without acute cor pulmonale PLAN: Plan CTA images were reviewed; clot burden extends minimally into the right main pulmonary artery. She does not have any evidence of heart strain. For these reasons, do not feel thrombectomy would offer added benefit over anticoagulation alone and would recommend against procedural intervention. OK to transition to DOAC from surgical perspective at this time. HPI Consult Data Date of Consult: 10/19/24 HPI Narrative HPI Narrative: CAITLIN OSBORNE, is a 59 F who presented to the [facility] ER 10/18/24 with SOB and RUQ pleuritic pain. In the ER, she was tachycardic with O2 saturation to 86%. CTA demonstrated acute PE in the distal right main pulmonary artery and ascending/descending arteries by radiology report. She was initiated on heparin drip and admitted for further management. We are consulted for consideration of pulmonary thrombectomy. She is currently on high flow O@@ via NC at 10 lpm with O2 saturations around 90; however, she does have her nails done which could be influencing the pulse ox reads; nursing plans to place ear lobe pulse ox when available. HR is 90s on my exam. She had echo which was negative for any RV strain, CTA also did not suggest RV strain. She had negative troponins and BNP. She is on heparin drip but as of last aPTT not yet therapeutic. She reports she feels about the same as when she presented, still with pleuritic pain and SOB. She reports that the pleuritic pain and SOB started suddenly yesterday and got progressively worse through the day leading to her to present to ER. She denies any preceding injury, illness, travel, or otherwise significantly decreased activity. She reports she keeps busy around the house typically, though not much dedicated exercise. She states no SOB or O2 requirement at baseline; she will have some exertional dyspnea if working in the yard. She has a history of prior DVT in 2014 which by her description was also unprovoked; she was treated with 6 months anticoagulation and has not had known recurrence to this point. [facility] Medical History (Updated 10/19/24 @ 03:[address] Nhan Robles, DO) Renal cyst Adrenal nodule Loss of hearing Wears glasses Wears dentures History of steroid therapy Thyroid disease DVT (deep venous thrombosis) High cholesterol Back pain Vertigo Heartburn Smoker Shortness of breath on exertion Leg cramps Hypertension Cardiology follow-up encounter History of Holter monitoring History of echocardiogram History of stress test Lightheadedness Near syncope Mixed hyperlipidemia History of left heart catheterization (LHC) (~03/24/22) Abnormal cardiac CT angiography Tachycardia Essential hypertension Kyphosis Rheumatoid arthritis Home Medications ?Medication ?Instructions ?Recorded ?Last Taken ?Type meclizine 25 mg tablet 25 mg PO TID PRN dizziness 12/16/21 Unknown History amlodipine 10 mg tablet 10 mg PO DAILY bp 01/01/22 04/15/22 History hydroxychloroquine 200 mg tablet 200 mg PO BID ra 01/01/22 Unknown History losartan 100 mg tablet 100 mg PO DAILY 01/01/22 04/15/22 History levothyroxine 150 mcg tablet See Rx Instructions .Route 11/02/22 Unknown Rx .COMPLEX thyroid #90 tabs metformin 1,000 mg tablet 1,000 mg PO BID dm 11/16/22 Unknown History prednisone 10 mg tablet 10 mg PO DAILY PRN ARTHRITIS FLARE 11/16/22 Unknown History UP atorvastatin 20 mg tablet See Rx Instructions .Route 05/05/23 Unknown Rx .COMPLEX hld #90 tabs cetirizine 10 mg tablet 10 mg PO DAILY PRN allergies 01/28/24 Unknown History gabapentin 100 mg capsule 100 mg PO TID pain 01/28/24 Unknown History leflunomide 20 mg tablet 20 mg PO DAILY 01/28/24 Unknown History bismuth subsalicylate 262 mg 1 tab PO Q6H diarrhea #56 tabs 02/08/24 Unknown Rx chewable tablet (Soothe (bismuth subsalicylate)) dapagliflozin propanediol 10 mg 10 mg PO DAILY 10/18/24 Unknown History tablet (Farxiga) furosemide 20 mg tablet 20 mg PO DAILY 10/18/24 Unknown History pantoprazole 40 mg tablet,delayed 40 mg PO Q12H PRN GERD 10/18/24 Unknown History release Allergy/AdvReac Type Severity Reaction Status Date / Time Sulfa (Sulfonamide Allergy Unknown Hives Verified 10/18/24 18:35 Antibiotics) Family History Sister Breast cancer Hypertension Diabetes Sister Myocardial infarction, Onset Age: 30 Surgical History History of total thyroidectomy History of cardiac catheterization (~02/2022) S/P thyroid biopsy (~02/2022) History of laparoscopic cholecystectomy History of appendectomy Social History Smoking Status: Current every day smoker tobacco type: cigarettes Tobacco: How many years used: 30 second hand exposure: Yes alcohol intake: current alcohol intake frequency: holidays/special occasions only substance use type: does not use caffeine: Yes Type: coffee Number of servings: 3 seatbelt use: always Physical Exam Const alert and oriented x3 General Appearance: cooperative HEENT normocephalic, head/scalp atraumatic, external ears normal and external nose normal Eyes General Eye: normal appearance of both eyes Neck General: normal visual inspection and trachea midline Resp no use of accessory muscles Effort and Inspection: able to speak in complete sentences; Negative for grunting or stridor Cardio regular rate and regular rhythm Back/Spine General Back: other scoliosis Skin no rashes or lesions noted Neuro oriented x3 and moves all extremities Speech: speech normal Psych mental status grossly normal Appearance: grossly normal Attitude: calm Speech: normal speech Lab / Micro Data 10/19/24 03:53 10/19/24 03:53 Labs: Laboratory Results - last 24 hr 10/18/24 18:45: Troponin T High Sens 9 10/18/24 18:48: WBC 11.5 H, RBC 4.89, Hgb 14.1, Hct 43.4, MCV 88.8, MCH 28.8, MCHC 32.5, RDW Std Deviation 45.1 H, RDW Coeff of Layla 13.9, Plt Count 186, MPV 9.8, Immature Gran % (Auto) 0.300, Neut % (Auto) 80.2 H, Lymph % (Auto) 11.1 L, [place] % (Auto) 6.9, Eos % (Auto) 0.8, Baso % (Auto) 0.7, Absolute Neuts (auto) 9.3 H, Absolute Lymphs (auto) 1.28, Nucleated RBC % 0, PT 13.2, INR 1.0, APTT 24.8, D-Dimer Quant (PE/DVT) 2.69 H*, Sodium 139, Potassium 4.0, Chloride 102, Carbon Dioxide 21.3, Anion Gap 15, BUN 18, Creatinine 0.75, Estim Creat Clear Calc 92.12, Est GFR (MDRD) Non-Af 90, BUN/Creatinine Ratio 23.5 H, Glucose 224 H, Calcium 9.5, Total Bilirubin 0.56, AST 18, ALT 10, Alkaline Phosphatase 99, Total Protein 7.7, Albumin 3.9, Globulin 3.9, Albumin/Globulin Ratio 1.0, Lipase 16 10/18/24 20:40: Troponin T Hi Sens 2 Hr 8 10/19/24 03:53: WBC 12.5 H, RBC 4.31, Hgb 12.3, Hct 38.4, MCV 89.1, MCH 28.5, MCHC 32.0, RDW Std Deviation 45.5 H, RDW Coeff of Layla 13.9, Plt Count 159, MPV 9.8, Immature Gran % (Auto) 0.500, Neut % (Auto) 85.1 H, Lymph % (Auto) 5.7 L, [place] % (Auto) 7.4, Eos % (Auto) 0.8, Baso % (Auto) 0.5, Absolute Neuts (auto) 10.6 H, Absolute Lymphs (auto) 0.71 L, Nucleated RBC % 0, APTT 40.2 H, Sodium 139, Potassium 3.6, Chloride 105, Carbon Dioxide 20.6 L, Anion Gap 13, BUN 15, Creatinine 0.65 L, Estim Creat Clear Calc 99.61, Est GFR (MDRD) Non-Af 100, BUN/Creatinine Ratio 23.7 H, Glucose 242 H, Calcium 8.6, Phosphorus 3.2, Magnesium 1.7, Total Bilirubin 0.37, AST 11, ALT 8, Alkaline Phosphatase 77, NT pro BNP II 317, Total Protein 6.8, Albumin 3.0 L, Globulin 3.8, Albumin/Globulin Ratio 0.8 L, TSH 0.106 L, Free T4 1.50 H, Free T3 pg/dL 1.9 L 10/19/24 10:15: APTT 45.2 H Micro: Microbiology 10/18/24 20:11 Mucosa - Nose SARS-CoV-2, Influenza & RSV (PCR) - Final ABG Data ABG results: ABG 10/18/24 10/19/24 23:56 05:07 Specimen Type ART ART Sample Site L Brach R Radial pH 7.34 L 7.38 Bicarbonate Actual 23.7 21.8 L Total CO2 25 23 Base Excess -2 -3 L O2 Saturation 87 L 99 O2 % 5.0 10.0 ABG pCO2 43.7 36.5 ABG pO2 57 L 150 H Christopher Test Positive Positive O2 Delivery Device Cannula Cannula Vent Mode Not entered Not entered Imaging Radiology Impression Chest X-Ray 10/18/24 20:09 IMPRESSION: No definite acute airspace abnormality. Reading Location: [facility] Chest CTA 10/18/24 20:50 IMPRESSION: Positive for pulmonary embolism of the distal main right pulmonary artery extending into the into the ascending and descending pulmonary arteries. No right heart strain. Dr. Nance was notified on 10/18/2024 at 2130. Reading Location: [id number] Echocardiogram 10/19/24 01:30 Interpretation Summary Normal LV size. Left ventricular systolic function is normal. Stage 1 diastolic dysfunction. Contrast injection was performed. Ordering Physician: Nhan Robles Referring Physician: Nehemias Arizmendi Performed By: Elida Foley, RDCS, RVT Charges/Coding Visit Charges Inpatient E&M: 63677 Init Hosp L1
[2024-10-19] MEDS: APIXABAN 5 MG TABLET 10 MG PO (18:13)
[2024-10-19 18:42] LABS: Partial Thromboplast Time 40.1 Seconds (24.1-36.2)
[2024-10-19 22:00] LABS: Bedside Glucose 157 mg/dL (74-106)
[2024-10-20] VITALS (10 sets, daily range): BP systolic 104–119; BP diastolic 61–77; PULSE 99–109; RESP 20–22; TEMP 36.6–36.9; O2SAT 89–100
[2024-10-20] MEDS: oxyCODONE 5 MG Tablet PO ×5 (01:55→20:22)
[2024-10-20 06:41] LABS: Bedside Glucose 163 mg/dL (74-106)
[2024-10-20 07:00] LABS: Absolute Neutrophil Count 9.4 X10^3/uL (2.0-7.7); Basophil# 0.04 X10^3/uL; Basophil% 0.3 % (0-1); Eosinophils% 0.9 % (0-5); Hematocrit 38.8 % (37-47); Hemoglobin 12.1 g/dL (12.0-15.0); Lymphocyte % 7.8 % (19-41); Mean Corp Hgb Conc 31.2 g/dL (32-36); Mean Corpuscular Hgb 28.5 pg (27.0-32.0); Mean Corpuscular Volume 91.3 fL (81-99); Monocyte# 0.99 X10^3/uL; Monocyte% 8.6 % (0-10); NRBC Flagged by Analyzer 0 % (0-5); Neutrophil # 9.42 X10^3/uL (2.7-7.7); Neutrophil % 81.8 % (47-70); Platelet Count 171 K/mm3 (150-450); RBC Distribution Width CV 14.2 % (11.6-14.6); RBC Distribution Width SD 47.8 fl (35.1-43.9); Red Blood Count 4.25 M/mm3 (4.2-5.4); White Blood Count 11.5 K/mm3 (4.4-11.0)
[2024-10-20 07:43] LABS: Anion Gap 17 (5-15); BUN 25 mg/dL (4-19); BUN/Creat Ratio 44.4 RATIO (10-20); Calcium,Total 8.7 mg/dL (7.6-11.0); Carbon Dioxide 17.1 mmol/L (21.0-32.0); Chloride 103 mmol/L (98-108); Creatinine, Serum 0.57 mg/dL (0.70-1.20); EST Glomerular Filtration Rate 103 (>60); Estimated Creatinine Clearance 113.59 ml/min (50-250); Glucose 172 mg/dL (70-99); Sodium Level 136 mmol/L (133-145)
--- NOTE | 2024-10-20 07:52 | PCM.PN.SRG ---
Subjective Subjective Patient was resting comfortably in bed this morning on my exam. She is on 4L O2. She reports SOB and pleuritic pain are improving; still with a cough that is bothersome. She also notes that her RLE is starting to ache a bit. She states she was not having any significant RLE pain or swelling that she noticed in the last few weeks leading up to this. Objective Data Objective Data Vital Signs: Vital Signs Temp Pulse Resp BP Pulse Ox O2 Del Method O2 Flow Rate 98.0 F 101 H 20 H 115/66 97 Nasal Cannula 4 10/20/24 06:00 10/20/24 06:00 10/20/24 06:00 10/20/24 06:00 10/20/24 06:00 10/20/24 06:00 10/20/24 06:00 Oxygen Flow Rate (L/min) 4 Oxygen Delivery Method Nasal Cannula Weight: 216 lb 14.958 oz Body Mass Index (BMI) 39.6 Intake & Output: Intake and Output for Last 24 Hours 10/18/24 10/19/24 10/20/24 23:59 23:59 23:59 Intake Total 1000 / 1000 1237.10 / 1237.10 Balance 1000 / 1000 1237.10 / 1237.10 Lab / Micro Data 10/20/24 06:47 10/20/24 06:47 Labs: Laboratory Results - last 24 hr 10/19/24 03:53: NT pro BNP II 317, Free T4 1.50 H, Free T3 pg/dL 1.9 L 10/19/24 10:15: APTT 45.2 H 10/19/24 18:05: APTT 40.1 H 10/19/24 21:39: POC Glucose 157 H 10/20/24 06:23: POC Glucose 163 H 10/20/24 06:47: WBC 11.5 H, RBC 4.25, Hgb 12.1, Hct 38.8, MCV 91.3, MCH 28.5, MCHC 31.2 L, RDW Std Deviation 47.8 H, RDW Coeff of Layla 14.2, Plt Count 171, MPV 10.0, Immature Gran % (Auto) 0.600, Neut % (Auto) 81.8 H, Lymph % (Auto) 7.8 L, [place] % (Auto) 8.6, Eos % (Auto) 0.9, Baso % (Auto) 0.3, Absolute Neuts (auto) 9.4 H, Absolute Lymphs (auto) 0.90, Nucleated RBC % 0, Sodium 136, Potassium 4.0, Chloride 103, Carbon Dioxide 17.1 L, Anion Gap 17 H, BUN 25 H, Creatinine 0.57 L, Estim Creat Clear Calc 113.59, Est GFR (MDRD) Non-Af 103, BUN/Creatinine Ratio 44.4 H, Glucose 172 H, Calcium 8.7 Micro: Microbiology 10/18/24 20:11 Mucosa - Nose SARS-CoV-2, Influenza & RSV (PCR) - Final Radiography Diagnostic Testing: Radiology Impression Venous Doppler Study 10/19/24 01:23 Interpretation Summary Acute deep vein thrombosis noted in the right femoral vein, popliteal vein, tibioperoenal trunk vein, posterior tibial vein, peroneal vein. Deep veins of the left lower extremity are patent and compressible segmentally. There is no evidence of left lower extremity deep vein thrombosis. Ordering Physician: Nhan Robles Referring Physician: Nehemias Arizmendi Performed By: Quirino Rodriguez, RVT Echocardiogram 10/19/24 01:30 Interpretation Summary Normal LV size. Left ventricular systolic function is normal. Stage 1 diastolic dysfunction. Contrast injection was performed. Ordering Physician: Nhan Robles Referring Physician: Nehemias Arizmendi Performed By: Elida Foley RDCS, RVT Physical Exam Const alert and oriented x3 General Appearance: cooperative HEENT normocephalic, head/scalp atraumatic, external ears normal and external nose normal Eyes General Eye: normal appearance of both eyes Neck General: normal visual inspection and trachea midline Resp no use of accessory muscles Resp Narrative: On 4L O2 via NC Effort and Inspection: able to speak in complete sentences; Negative for grunting or stridor Cardio regular rate and regular rhythm Back/Spine General Back: other scoliosis Extremity Extremity Narrative: RLE with trace edema Peripheral Pulses: Yes posterior tibial pulses present and dorsalis pedis pulses present Skin no rashes or lesions noted Neuro oriented x3 and moves all extremities Speech: speech normal Psych mental status grossly normal Appearance: grossly normal Attitude: calm Speech: normal speech Assessment & Plan Assessment/Plan (1) Pulmonary embolism: QUALIFIERS: Pulmonary embolism type: unspecified Chronicity: acute Acute cor pulmonale presence: without acute cor pulmonale Qualified Code(s): I26.99 - Other pulmonary embolism without acute cor pulmonale PLAN: Plan O2 requirement is decreased; she is starting to see some improvement in symptoms. She has transitioned to Eliquis. She has mild RLE symptoms; duplex revealed acute DVT up to the femoral vein, at this time no indication for lower extremity thrombectomy. Placed an LIBBY wrap to her RLE; compression may help reduce swelling and aching. Plan is for continued anticoagulation; minimum 1 year but would consider lifelong anticoagulation given this is her second unprovoked VTE. Charges/Coding Visit Charges Inpatient E&M: 84921 Subs Hosp L1
[2024-10-20] MEDS: APIXABAN 5 MG TABLET 10 MG PO ×2 (08:52→20:27)
[2024-10-20] MEDS: Empagliflozin 25 MG Tablet PO (10:55)
[2024-10-20] MEDS: Losartan Potassium 100 MG Tablet PO (10:55)
[2024-10-20] MEDS: levoFLOXacin 500 MG Tablet PO (10:55)
[2024-10-20] MEDS: Leflunomide 10 MG TABLET 20 MG PO (10:55)
[2024-10-20] MEDS: Furosemide 20 MG Tablet PO (10:55)
[2024-10-20] MEDS: Hydroxychloroquine 200 MG Tablet PO ×2 (10:55→16:20)
[2024-10-20] MEDS: Levothyroxine 150 MCG Tablet PO (10:56)
[2024-10-20] MEDS: Insulin Lispro 100 UNIT/ML INSULN.PEN SC (11:12)
[2024-10-20 11:25] LABS: Bedside Glucose 182 mg/dL (74-106)
[2024-10-20] MEDS: Gabapentin 100 MG Capsule PO ×2 (13:58→20:26)
[2024-10-20 16:41] LABS: Bedside Glucose 147 mg/dL (74-106)
--- NOTE | 2024-10-20 16:59 | CASEMGMT ---
CACHORRO HUYNH NOTE: Per Dr Gr, he anticipates pt may be ready to dc home tomorrow and will be going home on Eliquis. CACHORRO HUYNH to room. Pt sitting up in chair. Introduced self and role. Eliquis 30-day free trial offer card provided as well as Eliquis $10 co-pay card and instructed on use. Questions answered. Pt verifies [facility]. Discussed possible need of home O2, testing process, and home O2 set-up process. She is aware, if she does qualify for home o2, to call [facility] prior to discharge to make arrangements for home O2 delivery. Dr Gr recommends pt check her BS's @ home TID. Script obtained for glucometer w/testing supplies. Pt made aware of Dr Gr's recommendations and script provided, instructed on use. She denies wanting any HHC or OP therapy @ dc and denies having further discharge needs, questions, or concerns. Tatianna BROOKS RN, CM
--- NOTE | 2024-10-20 19:22 | PN.HOSP_ITS ---
Reason for Visit Reason for Visit: Diagnoses Morbid (severe) obesity due to excess calories (10/18/24) Other pulmonary embolism without acute cor pulmonale (10/18/24) Acute embolism and thrombosis of unspecified deep veins of unspecified lower extremity (10/18/24) Other abnormalities of breathing (10/18/24) Hypoxemia (10/18/24) Right upper quadrant pain (10/18/24) Body mass index [BMI] 40.0-44.9, adult (10/18/24) Subjective Subjective Patient was seen and examined today, she has a rhonchorous cough, she is now on 5 L of oxygen and does not appear dyspneic at rest. I made the decision to place her on oral antibiotics for possible bronchitis, I started the patient on Eliquis yesterday. Patient was also started on aerosol treatments today. Objective Data Objective Data Vital Signs: Vital Signs Temp Pulse Resp BP Pulse Ox O2 Del Method O2 Flow Rate 98.4 F 109 H 22 H 104/61 95 Nasal Cannula 5 10/20/24 14:04 10/20/24 14:04 10/20/24 14:04 10/20/24 14:04 10/20/24 14:04 10/20/24 16:33 10/20/24 16:33 Oxygen Flow Rate (L/min) 5 Oxygen Delivery Method Nasal Cannula Weight: 98.4 kg Body Mass Index (BMI) 39.6 Intake & Output: Intake and Output for Last 24 Hours 10/18/24 10/19/24 10/20/24 23:59 23:59 23:59 Intake Total 1000 / 1000 1237.10 / 1237.10 1120 / 1120 Balance 1000 / 1000 1237.10 / 1237.10 1120 / 1120 Lab / Micro Data 10/20/24 06:47 10/20/24 06:47 Labs: Laboratory Results - last 24 hr 10/19/24 21:39: POC Glucose 157 H 10/20/24 06:23: POC Glucose 163 H 10/20/24 06:47: WBC 11.5 H, RBC 4.25, Hgb 12.1, Hct 38.8, MCV 91.3, MCH 28.5, M CHC 31.2 L, RDW Std Deviation 47.8 H, RDW Coeff of Layla 14.2, Plt Count 171, MPV 10.0, Immature Gran % (Auto) 0.600, Neut % (Auto) 81.8 H, Lymph % (Auto) 7.8 L, [place] % (Auto) 8.6, Eos % (Auto) 0.9, Baso % (Auto) 0.3, Absolute Neuts (auto) 9.4 H, Absolute Lymphs (auto) 0.90, Nucleated RBC % 0, Sodium 136, Potassium 4.0, Chloride 103, Carbon Dioxide 17.1 L, Anion Gap 17 H, BUN 25 H, Creatinine 0.57 L, Estim Creat Clear Calc 113.59, Est GFR (MDRD) Non-Af 103, BUN/Creatinine Ratio 44.4 H, Glucose 172 H, Calcium 8.7 10/20/24 11:06: POC Glucose 182 H 10/20/24 16:22: POC Glucose 147 H Micro: Microbiology 10/20/24 06:55 Sputum, Expectorated/Coughed Gram Stain - Final 10/18/24 20:11 Mucosa - Nose SARS-CoV-2, Influenza & RSV (PCR) - Final Physical Exam Narrative alert, oriented x3, no apparent distress and healthy appearing Constitutional Narrative: Patient has class II obesity General Appearance: cooperative, well kempt and well developed Orientation / Consciousness: awake, oriented to person, oriented to place and oriented to time HEENT normocephalic, head/scalp atraumatic and moist oral mucous membranes Eyes PERRL, EOMs intact bilaterally and conjunctivae normal Neck supple, no JVD, thyroid normal and no carotid bruits General: trachea midline Resp normal respiratory effort, no retractions, no use of accessory muscles and clear to auscultation bilaterally Auscultation: Positive for rhonchi bilaterally, no wheezes or rales were noted Cardio regular rate, regular rhythm, S1 normal heart sound, S2 normal heart sound, no murmurs, no rub and no gallops GI normal to inspection, nondistended, normoactive bowel sounds, soft to palpation, non-tender and non-distended Extremity no clubbing, cyanosis or edema Skin no rashes or lesions noted General Skin Exam: no breakdown Neuro oriented x3, CN's II-XII intact bilaterally, moves all extremities, no focal motor deficits and no sensory deficits noted Sensorium / Orientation: awake and alert Speech: speech normal Psych affect normal Assessment & Plan Assessment/Plan (1) Pulmonary embolism: QUALIFIERS: Pulmonary embolism type: unspecified Chronicity: a cute Acute cor pulmonale presence: without acute cor pulmonale Qualified Code(s): I26.99 - Other pulmonary embolism without acute cor pulmonale PLAN: Plan 1. Pulmonary embolism in the distal main right pulmonary artery extending into the ascending and descending pulmonary arteries-patient is currently on Eliquis #2 hypoxic respiratory failure secondary to pulmonary embolism and severe thoracic scoliosis-pulse ox will be monitored, patient is currently on nasal cannula O2 #3 VTE of the lower extremities-again patient is on a heparin drip at this time #4 essential hypertension-patient is on amlodipine and losartan #5 type 2 diabetes-patient's blood sugar is being monitored, sliding scale insulin will be administered as indicated #6 acute bronchitis-I placed patient on oral Levaquin and DuoNeb aerosol treatments today Total clinical time spent by myself addressing the patient's medical issues, reviewing all of her data, and collaborating the patient's care team: 35 minutes Charges/Coding Visit Charges Inpatient E&M: 76934 Subs Hosp L2
[2024-10-20] MEDS: 0.9% Saline Lock 10 ML Syringe IV (20:22)
[2024-10-20] MEDS: Atorvastatin Calcium 20 MG Tablet PO (20:27)
[2024-10-20] MEDS: Ipratropium/Albuterol Sulfate 3 ML AMPUL.NEB INHALATION (20:35)
[2024-10-20 20:50] LABS: Bedside Glucose 165 mg/dL (74-106)
[2024-10-21] VITALS (13 sets, daily range): BP systolic 94–122; BP diastolic 61–76; PULSE 86–116; RESP 14–24; TEMP 36.3–36.8; O2SAT 89–95
[2024-10-21] MEDS: Ondansetron 4 MG/2 ML Vial IV (01:21)
[2024-10-21] MEDS: oxyCODONE 5 MG Tablet PO ×4 (01:21→19:55)
[2024-10-21] MEDS: Ipratropium/Albuterol Sulfate 3 ML AMPUL.NEB INHALATION ×4 (01:40→19:42)
--- NOTE | 2024-10-21 02:44 | RAD_ITS ---
PROCEDURE: CHEST 1 VIEW (PORTABLE) 10/21/2024 REASON FOR EXAM: INCREASE O2 DEMAND TECHNIQUE: Frontal view of the chest. COMPARISON: CTA chest and chest x-ray from 10/18/2024. FINDINGS: Cardiac size is stable. Bibasilar interstitial opacities are again seen which may relate to atelectasis and/or infiltrates. No sizable pleural effusion or pneumothorax is identified. There is scoliosis of the thoracolumbar spine. RAD/Chest 1 View (Portable) IMPRESSION: Bibasilar interstitial opacities which may relate to atelectasis and/or infiltr ates. No significant change. Reading Location: [facility]
[2024-10-21] MEDS: MethylPREDNISolone 125 MG/2 ML Vial IV (03:02)
[2024-10-21 04:15] LABS: Pro- Brain NATRIURETIC PEPTIDE 527 pg/mL (<=900)
[2024-10-21 05:29] LABS: Blood Gas Specimen Type VEN; O2 Delivery Device Not entered; SITE Not entered; VBG BASE EXCESS -7 mmol/L (-1.0-3.5); VBG Bicarbonate 20 mmol/L (22-26); VBG PO2 71 mmHg (25-40); VBG SO2 92 % (50-70); VBG TCO2 21 mmol/L (23-33); VBG pCO2 42.9 mmHg (41-51); VBG pH 7.28 (7.32-7.42)
[2024-10-21] MEDS: levoFLOXacin 500 MG Tablet PO (05:57)
[2024-10-21] MEDS: Gabapentin 100 MG Capsule PO ×3 (05:57→21:29)
[2024-10-21] MEDS: Levothyroxine 150 MCG Tablet PO (05:57)
--- NOTE | 2024-10-21 06:08 | PN.HOSP_ITS ---
Hospitalist Note I was called by the CHIEF [employer]EST[employer] OFFICER earlier in the shift and informed patient was requiring 9L NC with dyspnea at rest with wheezing. Better if tests were ordered including NT pro-BNP II of 527 pg/mL with chest x-ray that revealed bibasilar interstitial opacities which may relate to atelectasis and/or infiltrates with no significant change from previous. She was then ordered additional IV Solu-Medrol and nebulizer treatment with patient already noted to be on oral levofloxacin. VBG done at 5:25 AM revealed pH 7.28/ pCO2 21 mmol/L/ PaO2 71 mmHg/ HCO3 20 mmol/L on 8L NC. Therefore, stat ABG was ordered which revealed pH 7.27/pCO2 46.8 mmHg/pO2 65 mmHg/HCO3 21.5 mmol/L on 8 LNC with the patient ordered to be started on BiPAP with repeat ABG pending in 1 hour. [facility] Imaging Services [address] [place] [id number] Chest 1 View (Portable) MR#: [id number] Acct: [id number] Name: CAITLIN OSBORNE Rep #: [id number] : 1965 F 59 From: Fadi Yeboah DO PCP: Dr. Nehemias Arizmendi MD Status: ADM IN Study: Chest 1 View (Portable) Date of Exam: 10/21/24 Exam# [id number] Ordering Dr: Nhan Robles DO PROCEDURE: CHEST 1 VIEW (PORTABLE) 10/21/2024 REASON FOR EXAM: INCREASE O2 DEMAND TECHNIQUE: Frontal view of the chest. COMPARISON: CTA chest and chest x-ray from 10/18/2024. FINDINGS: Cardiac size is stable. Bibasilar interstitial opacities are again seen which may relate to atelectasis and/or infiltrates. No sizable pleural effusion or pneumothorax is identified. There is scoliosis of the thoracolumbar spine. RAD/Chest 1 View (Portable) IMPRESSION: Bibasilar interstitial opacities which may relate to atelectasis and/or infiltrates. No significant change. Reading Location: [facility] CC: Dr. Nhan Robles DO; Dr. Nehemias Arizmendi MD ~ Paid Search Specialist: Signed
[2024-10-21 06:14] LABS: Allen Test Positive; Base Excess -5 mmol/L (-2 to +2); Bicarbonate 21.5 mmol/L (22-26); Blood Gas Specimen Type ART; Mode Not entered; O2 Delivery Device Cannula; PO2 65 mmHG (75-100); SITE R Radial; SO2 89 % (95-99); Total Carbon Dioxide 23 mmol/L; pCO2 46.8 mmHg (35-45); pH 7.27 (7.35-7.45)
[2024-10-21 06:24] LABS: Bedside Glucose 151 mg/dL (74-106)
[2024-10-21 07:58] LABS: Base Excess -6 mmol/L (-2 to +2); Bicarbonate 21.1 mmol/L (22-26); Blood Gas Specimen Type ART; Mode AC; O2 Delivery Device BiPAP; PO2 74 mmHG (75-100); RR 14; SITE L Brach; SO2 93 % (95-99); Total Carbon Dioxide 22 mmol/L; pCO2 43.8 mmHg (35-45); pH 7.29 (7.35-7.45)
[2024-10-21] MEDS: 0.9% Saline Lock 10 ML Syringe IV (08:17)
[2024-10-21] MEDS: Furosemide 40 MG/4 ML Vial IV (08:17)
[2024-10-21] MEDS: Acetaminophen 325 MG Tablet 650 MG PO ×3 (08:19→21:29)
[2024-10-21] MEDS: Hydroxychloroquine 200 MG Tablet PO ×2 (08:20→17:03)
[2024-10-21] MEDS: Empagliflozin 25 MG Tablet PO (08:21)
[2024-10-21] MEDS: APIXABAN 5 MG TABLET 10 MG PO ×2 (08:21→21:29)
[2024-10-21] MEDS: Furosemide 20 MG Tablet PO (08:21)
[2024-10-21] MEDS: Losartan Potassium 100 MG Tablet PO (08:21)
[2024-10-21] MEDS: Leflunomide 10 MG TABLET 20 MG PO (08:22)
[2024-10-21] MEDS: Insulin Lispro 100 UNIT/ML INSULN.PEN SC ×3 (11:30→21:29)
[2024-10-21 11:54] LABS: Bedside Glucose 355 mg/dL (74-106)
--- NOTE | 2024-10-21 12:03 | PCM.PN.HOSP ---
Reason for Visit Reason for Visit: Diagnoses Morbid (severe) obesity due to excess calories (10/18/24) Other pulmonary embolism without acute cor pulmonale (10/18/24) Acute embolism and thrombosis of unspecified deep veins of unspecified lower extremity (10/18/24) Other abnormalities of breathing (10/18/24) Hypoxemia (10/18/24) Right upper quadrant pain (10/18/24) Body mass index [BMI] 40.0-44.9, adult (10/18/24) Subjective Subjective Patient was seen and examined today, briefly she was on BiPAP this morning but did not tolerate wearing it so I requested that respiratory therapy place her on high flow oxygen. Right now she is on 7 L and appears comfortable at rest. I have decided to give her 1 dose of IV Lasix today to see if this would improve her breathing. Objective Data Objective Data Vital Signs: Vital Signs Temp Pulse Resp BP Pulse Ox O2 Del Method O2 Flow Rate 98 F 98 24 H 94/70 93 Nasal Cannula 7 10/21/24 08:10 10/21/24 08:10 10/21/24 08:10 10/21/24 08:10 10/21/24 08:10 10/21/24 08:25 10/21/24 08:25 FiO2 50 10/21/24 06:39 Oxygen Flow Rate (L/min) 7 Oxygen Delivery Method Nasal Cannula Weight: 98.4 kg Body Mass Index (BMI) 39.6 Intake & Output: Intake and Output for Last 24 Hours 10/19/24 10/20/24 10/21/24 23:59 23:59 23:59 Intake Total 1237.10 / 1237.10 1120 / 1120 450 / 450 Output Total 600 / 600 Balance 1237.10 / 1237.10 1120 / 1120 -150 / -150 Lab / Micro Data 10/20/24 06:47 10/20/24 06:47 Labs: Laboratory Results - last 24 hr 10/20/24 16:22: POC Glucose 147 H 10/20/24 20:29: POC Glucose 165 H 10/21/24 03:28: NT pro BNP II 527 10/21/24 06:03: POC Glucose 151 H 10/21/24 11:28: POC Glucose 355 H Micro: Microbiology 10/20/24 06:55 Sputum, Expectorated/Coughed Gram Stain - Final 10/20/24 06:55 Sputum, Expectorated/Coughed Respiratory Culture - Preliminary Gram negative cocco bacillus 10/18/24 20:11 Mucosa - Nose SARS-CoV-2, Influenza & RSV (PCR) - Final ABG Data ABG results: ABG 10/21/24 10/21/24 10/21/24 05:25 06:11 07:54 Specimen Type NAEEM ART ART Sample Site Not entered R Radial L Brach pH 7.27 L 7.29 L Bicarbonate Actual 21.5 L 21.1 L Total CO2 23 22 Base Excess -5 L -6 L O2 Saturation 89 L 93 L O2 % 8.0 40.0 ABG pCO2 46.8 H 43.8 ABG pO2 65 L 74 L Christopher Test Positive VBG pH 7.28 L VBG pO2 71 H VBG HCO3 20 L VBG Total CO2 21 L VBG O2 Sat (Calc) 92 H VBG Base Excess -7 L POC Mix VBG pCO2 Pt Tmp 42.9 Respiration Rate 14 O2 Delivery Device Not entered Cannula BiPAP Vent Mode Not entered AC Clinical Comments 06/04 Radiography Diagnostic Testing: Radiology Impression Chest X-Ray 10/21/24 02:44 IMPRESSION: Bibasilar interstitial opacities which may relate to atelectasis and/or infiltrates. No significant change. Reading Location: [facility] Physical Exam Narrative alert, oriented x3, no apparent distress and healthy appearing Constitutional Narrative: Patient has class II obesity General Appearance: cooperative, well kempt and well developed Orientation / Consciousness: awake, oriented to person, oriented to place and oriented to time HEENT normocephalic, head/scalp atraumatic and moist oral mucous membranes Eyes PERRL, EOMs intact bilaterally and conjunctivae normal Neck supple, no JVD, thyroid normal and no carotid bruits General: trachea midline Resp normal respiratory effort, no retractions, no use of accessory muscles and clear to auscultation bilaterally Auscultation: Positive for rhonchi bilaterally, no wheezes or rales were noted Cardio regular rate, regular rhythm, S1 normal heart sound, S2 normal heart sound, no murmurs, no rub and no gallops GI normal to inspection, nondistended, normoactive bowel sounds, soft to palpation, non-tender and non-distended Extremity no clubbing, cyanosis or edema Skin no rashes or lesions noted General Skin Exam: no breakdown Neuro oriented x3, CN's II-XII intact bilaterally, moves all extremities, no focal motor deficits and no sensory deficits noted Sensorium / Orientation: awake and alert Speech: speech normal Psych affect normal Assessment & Plan Assessment/Plan (1) Pulmonary embolism: QUALIFIERS: Pulmonary embolism type: unspecified Chronicity: acute Acute cor pulmonale presence: without acute cor pulmonale Qualified Code(s): I26.99 - Other pulmonary embolism without acute cor pulmonale PLAN: Plan 1. Pulmonary embolism in the distal main right pulmonary artery extending into the ascending and descending pulmonary arteries-patient is currently on Eliquis #2 hypoxic respiratory failure secondary to pulmonary embolism and severe thoracic scoliosis-pulse ox will be monitored, patient is currently on nasal cannula O2 at high flow, I have elected to give her a dose of IV Lasix today #3 VTE of the lower extremities-again patient is on a heparin drip at this time #4 essential hypertension-patient is on amlodipine and losartan #5 type 2 diabetes-patient's blood sugar is being monitored, sliding scale insulin will be administered as indicated #6 acute bronchitis- patient on oral Levaquin and DuoNeb aerosol treatments Total clinical time spent by myself addressing the patient's medical issues, reviewing all of her data, and collaborating the patient's care team: 35 minutes Charges/Coding Visit Charges Inpatient E&M: [id number] Subs Hosp L2
[2024-10-21 17:14] LABS: Bedside Glucose 306 mg/dL (74-106)
--- NOTE | 2024-10-21 20:59 | CPS ---
Patient refused PAP therapy for night time use
[2024-10-21] MEDS: Atorvastatin Calcium 20 MG Tablet PO (21:28)
[2024-10-21 22:44] LABS: Bedside Glucose 288 mg/dL (74-106)
[2024-10-22] VITALS (13 sets, daily range): BP systolic 100–124; BP diastolic 52–81; PULSE 79–100; RESP 14–24; TEMP 36.5–36.9; O2SAT 90–96
[2024-10-22] MEDS: Ipratropium/Albuterol Sulfate 3 ML AMPUL.NEB INHALATION ×4 (00:56→19:49)
[2024-10-22] MEDS: oxyCODONE 5 MG Tablet PO ×3 (03:31→19:55)
[2024-10-22] MEDS: levoFLOXacin 500 MG Tablet PO (06:03)
[2024-10-22] MEDS: Insulin Lispro 100 UNIT/ML INSULN.PEN SC ×4 (06:03→21:13)
[2024-10-22] MEDS: Gabapentin 100 MG Capsule PO ×3 (06:03→21:13)
[2024-10-22] MEDS: Levothyroxine 150 MCG Tablet PO (06:04)
[2024-10-22] MEDS: 0.9% Saline Lock 10 ML Syringe IV ×3 (06:07→21:13)
[2024-10-22 06:56] LABS: Bedside Glucose 213 mg/dL (74-106)
[2024-10-22] MEDS: Hydroxychloroquine 200 MG Tablet PO ×2 (09:06→16:22)
[2024-10-22] MEDS: Leflunomide 10 MG TABLET 20 MG PO (09:07)
[2024-10-22] MEDS: Losartan Potassium 100 MG Tablet PO (09:07)
[2024-10-22] MEDS: Empagliflozin 25 MG Tablet PO (09:07)
[2024-10-22] MEDS: APIXABAN 5 MG TABLET 10 MG PO ×2 (09:07→21:13)
[2024-10-22] MEDS: Furosemide 20 MG Tablet PO (09:07)
[2024-10-22] MEDS: Furosemide 20 MG/2 ML VIAL IV (10:02)
[2024-10-22 11:44] LABS: Bedside Glucose 255 mg/dL (74-106)
[2024-10-22 16:59] LABS: Bedside Glucose 256 mg/dL (74-106)
--- NOTE | 2024-10-22 17:47 | PN.HOSP_ITS ---
Reason for Visit Reason for Visit: Diagnoses Morbid (severe) obesity due to excess calories (10/18/24) Other pulmonary embolism without acute cor pulmonale (10/18/24) Acute embolism and thrombosis of unspecified deep veins of unspecified lower extremity (10/18/24) Other abnormalities of breathing (10/18/24) Hypoxemia (10/18/24) Right upper quadrant pain (10/18/24) Body mass index [BMI] 40.0-44.9, adult (10/18/24) Subjective Subjective Patient was seen and examined today, she is currently on 2 L of oxygen at rest. I elected to give her another 20 mg of Lasix IV today. She will need to be reevaluated tomorrow for home oxygen. I have elected to keep the patient on Levaquin for possible bronchitis. Objective Data Objective Data Vital Signs: Vital Signs Temp Pulse Resp BP Pulse Ox O2 Del Method O2 Flow Rate 97.8 F 94 20 H 108/62 95 Nasal Cannula 2 10/22/24 16:25 10/22/24 16:25 10/22/24 16:25 10/22/24 16:25 10/22/24 16:25 10/22/24 16:25 10/22/24 16:25 FiO2 40 10/22/24 00:55 Oxygen Flow Rate (L/min) 2 Oxygen Delivery Method Nasal Cannula Weight: 98.4 kg Body Mass Index (BMI) 39.6 Intake & Output: Intake and Output for Last 24 Hours 10/20/24 10/21/24 10/22/24 23:59 23:59 23:59 Intake Total 1120 / 1120 1475 / 1595 240 / 240 Output Total 900 / 900 Balance 1120 / 1120 575 / 695 240 / 240 Lab / Micro Data 10/20/24 06:47 10/20/24 06:47 Labs: Laboratory Results - last 24 hr 10/21/24 21:24: POC Glucose 288 H 10/22/24 06:02: POC Glucose 213 H 10/22/24 11:15: POC Glucose 255 H 10/22/24 16:20: POC Glucose 256 H Micro: Microbiology 10/20/24 06:55 Sputum, Expectorated/Coughed Gram Stain - Final 10/20/24 06:55 Sputum, Expectorated/Coughed Respiratory Culture - Final Haemophilus influenzae 10/18/24 20:11 Mucosa - Nose SARS-CoV-2, Influenza & RSV (PCR) - Final Physical Exam Narrative alert, oriented x3, no apparent distress and healthy appearing Constitutional Narrative: Patient has class II obesity General Appearance: cooperative, well kempt and well developed Orientation / Consciousness: awake, oriented to person, oriented to place and oriented to time HEENT normocephalic, head/scalp atraumatic and moist oral mucous membranes Eyes PERRL, EOMs intact bilaterally and conjunctivae normal Neck supple, no JVD, thyroid normal and no carotid bruits General: trachea midline Resp normal respiratory effort, no retractions, no use of accessory muscles and clear to auscultation bilaterally Auscultation: Positive for rhonchi bilaterally, no wheezes or rales were noted Cardio regular rate, regular rhythm, S1 normal heart sound, S2 normal heart sound, no murmurs, no rub and no gallops GI normal to inspection, nondistended, normoactive bowel sounds, soft to palpation, non-tender and non-distended Extremity no clubbing, cyanosis or edema Skin no rashes or lesions noted General Skin Exam: no breakdown Neuro oriented x3, CN's II-XII intact bilaterally, moves all extremities, no focal motor deficits and no sensory deficits noted Sensorium / Orientation: awake and alert Speech: speech normal Psych affect normal Assessment & Plan Assessment/Plan (1) Pulmonary embolism: QUALIFIERS: Pulmonary embolism type: unspecified Chronicity: a cute Acute cor pulmonale presence: without acute cor pulmonale Qualified Code(s): I26.99 - Other pulmonary embolism without acute cor pulmonale PLAN: Plan 1. Pulmonary embolism in the distal main right pulmonary artery extending into the ascending and descending pulmonary arteries-patient is currently on Eliquis #2 hypoxic respiratory failure secondary to pulmonary embolism and severe thoracic scoliosis-pulse ox will be monitored, patient is currently on nasal cannula O2 at high flow, I have elected to give her a dose of IV Lasix today, patient is requiring 2 L of oxygen at rest-she has no oxygen set up at home. #3 VTE of the lower extremities-again patient is on Eliquis at this time #4 essential hypertension-patient is on amlodipine and losartan #5 type 2 diabetes-patient's blood sugar is being monitored, sliding scale insulin will be administered as indicated #6 acute bronchitis- patient on oral Levaquin and DuoNeb aerosol treatments Total clinical time spent by myself addressing the patient's medical issues, reviewing all of her data, and collaborating the patient's care team: 35 minutes Charges/Coding Visit Charges Inpatient E&M: [id number] Subs Hosp L2
[2024-10-22] MEDS: Atorvastatin Calcium 20 MG Tablet PO (21:14)
[2024-10-22 23:19] LABS: Bedside Glucose 213 mg/dL (74-106)
[2024-10-23 03:10] VITALS: BP 101/83; PULSE 90; RESP 18; TEMP 36.8; O2SAT 93
[2024-10-23] MEDS: oxyCODONE 5 MG Tablet PO (05:04)
[2024-10-23] MEDS: Gabapentin 100 MG Capsule PO ×2 (06:18→14:05)
[2024-10-23] MEDS: Insulin Lispro 100 UNIT/ML INSULN.PEN SC ×2 (06:18→11:42)
[2024-10-23] MEDS: Levothyroxine 150 MCG Tablet PO (06:18)
[2024-10-23] MEDS: levoFLOXacin 500 MG Tablet PO (06:18)
[2024-10-23] MEDS: Acetaminophen 325 MG Tablet 650 MG PO (06:29)
[2024-10-23 06:41] LABS: Bedside Glucose 185 mg/dL (74-106)
[2024-10-23] MEDS: Ipratropium/Albuterol Sulfate 3 ML AMPUL.NEB INHALATION ×2 (06:51→12:11)
[2024-10-23 06:52] VITALS: PULSE 90; RESP 18; O2SAT 93
[2024-10-23] MEDS: Hydroxychloroquine 200 MG Tablet PO (08:06)
[2024-10-23 09:00] VITALS: BP 110/63; PULSE 88; RESP 18; TEMP 36.6; O2SAT 95
[2024-10-23 09:04] LABS: Hematocrit 38.6 % (37-47); Hemoglobin 12.4 g/dL (12.0-15.0); Mean Corp Hgb Conc 32.1 g/dL (32-36); Mean Corpuscular Hgb 28.4 pg (27.0-32.0); Mean Corpuscular Volume 88.5 fL (81-99); Mean Platelet Vol. 9.5 fl (6.2-12.0); Platelet Count 241 K/mm3 (150-450); RBC Distribution Width CV 14.3 % (11.6-14.6); RBC Distribution Width SD 46.2 fl (35.1-43.9); Red Blood Count 4.36 M/mm3 (4.2-5.4); White Blood Count 8.2 K/mm3 (4.4-11.0)
[2024-10-23 09:30] LABS: Anion Gap 10 (5-15); BUN 31 mg/dL (4-19); BUN/Creat Ratio 57.9 RATIO (10-20); Carbon Dioxide 32.1 mmol/L (21.0-32.0); Chloride 99 mmol/L (98-108); Creatinine, Serum 0.53 mg/dL (0.70-1.20); EST Glomerular Filtration Rate 105 (>60); Estimated Creatinine Clearance 122.16 ml/min (50-250); Glucose 173 mg/dL (70-99); Potassium 3.2 mmol/L (3.3-5.1); Sodium Level 141 mmol/L (133-145)
[2024-10-23] MEDS: Empagliflozin 25 MG Tablet PO (10:49)
[2024-10-23] MEDS: APIXABAN 5 MG TABLET 10 MG PO (10:49)
[2024-10-23] MEDS: Furosemide 20 MG Tablet PO (10:49)
[2024-10-23] MEDS: Leflunomide 10 MG TABLET 20 MG PO (10:49)
[2024-10-23] MEDS: Losartan Potassium 100 MG Tablet PO (10:49)
[2024-10-23 10:51] VITALS: O2SAT 87; O2SAT 88; O2SAT 90; O2SAT 93
--- NOTE | 2024-10-23 11:32 | PCM.DC.SUM ---
Providers Date of Admission: 10/18/24 Date of Discharge: 10/23/24 Primary Care Physician: Dr. Nehemias Arizmendi MD Consultations 10/19/24 07:56 Consult: Vascular Surgery Routine Consulting Provider: Dre Lilly Reason for Consult: PE EMERGENT Consult: No MD Notified: Yes Date Notified: 10/19/24 Time Notified: 07:56 Method of Notification: Verbal Reason For Visit: LARGE PE, HYPOCIA AND RUQ PAIN Diagnosis Discharge Diagnosis (1) Pulmonary embolism: Status: Acute Code(s): I26.99 - Other pulmonary embolism without acute cor pulmonale Qualifiers: Acute cor pulmonale presence: without acute cor pulmonale Chronicity: acute Pulmonary embolism type: unspecified Qualified Code(s): I26.99 - Other pulmonary embolism without acute cor pulmonale Medications at Discharge Home Medications meclizine 25 mg tablet 25 mg PO TID PRN dizziness 12/16/21 amlodipine 10 mg tablet 10 mg PO DAILY bp 01/01/22 hydroxychloroquine 200 mg tablet 200 mg PO BID ra 01/01/22 losartan 100 mg tablet 100 mg PO DAILY 01/01/22 levothyroxine 150 mcg tablet See Rx Instructions .Route .COMPLEX thyroid #90 tabs 11/02/22 metformin 1,000 mg tablet 1,000 mg PO BID dm 11/16/22 prednisone 10 mg tablet 10 mg PO DAILY PRN ARTHRITIS FLARE UP 11/16/22 atorvastatin 20 mg tablet See Rx Instructions .Route .COMPLEX hld #90 tabs 05/05/23 cetirizine 10 mg tablet 10 mg PO DAILY PRN allergies 01/28/24 gabapentin 100 mg capsule 100 mg PO TID pain 01/28/24 leflunomide 20 mg tablet 20 mg PO DAILY 01/28/24 bismuth subsalicylate 262 mg chewable tablet (Soothe (bismuth subsalicylate)) 1 tab PO Q6H diarrhea #56 tabs 02/08/24 dapagliflozin propanediol 10 mg tablet (Farxiga) 10 mg PO DAILY 10/18/24 furosemide 20 mg tablet 20 mg PO DAILY 10/18/24 pantoprazole 40 mg tablet,delayed release 40 mg PO Q12H PRN GERD 10/18/24 amoxicillin 875 mg-potassium clavulanate 125 mg tablet 1 tab PO BID 5 days #10 tabs 10/23/24 apixaban 5 mg (74 tabs) tablets in a dose pack (Eliquis DVT-PE Treat 30D Start) See Rx Instructions PO .COMPLEX #74 tabs 10/23/24 guaifenesin 1,200 mg tablet, extended release 12 hr (Mucus Relief ER) 1,200 mg PO BID 7 days #14 tabs 10/23/24 Hospital Course Operations None Procedures EKG, Transthoracic echo and - (Chest x-ray x 2, CTA chest, venous Doppler study) Summary of Care Provided Minutes Spent on Discharge: 35 Hospital Course: Patient is a 59-year-old female who presented to [facility] ED on 10/18/2024 with worsening shortness of breath, URI symptoms and upper abdominal pain. Hospital course as noted below. Patient discharged home in stable condition on 10/23. 1. Acute hypoxic respiratory failure secondary to acute PE/DVT and haemophilus influenza pneumonia, improving ? Vascular surgery followed. Not on home oxygen. Required up to 10 L high flow nasal cannula during hospitalization. CTA chest on admit showed PE in distal main right pulmonary artery extending into ascending and descending pulmonary arteries. Venous Doppler study showed acute DVT in right femoral, popliteal, tibioperoneal and posterior tibial veins. Echo with normal EF, stage I diastolic dysfunction, normal RV size and function, no other abnormalities. Sputum culture grew 3+ haemophilus influenza. Per surgery, no need for intervention, anticoagulation and compression with elevation sufficient. Noted that this is patient's second unprovoked VTE; will need at least 1 year of anticoagulation but would consider lifelong anticoagulation. Treated with Eliquis with loading dose while inpatient and discharged home on Eliquis. Treated with IV antibiotics while inpatient and discharged on Augmentin to complete 7-day course of antibiotics total. Patient completed O2 testing on day of discharge and required 2 L at rest and 3 L with exertion; prescription sent. 2. History of nonobstructive CAD, hypertension, hyperlipidemia ? Stable. Continue home statin, amlodipine, Lasix, and losartan. 3. Type 2 diabetes mellitus with neuropathy ? Treated with sliding scale insulin with meals while inpatient with good blood sugar control. Okay to resume home dapagliflozin and metformin on discharge. Continue home gabapentin. 4. Severe thoracic kyphosis/scoliosis ? Noted on chest x-ray and patient aware of this. Very likely causing some degree of restrictive lung disease and contributing to oxygen requirement as above. Chronic medical conditions: ? Class II obesity: BMI 39 on admit. Encouraged weight loss. Complicated hospital course, care and prognosis. ? GERD: Continue home PPI. ? Rheumatoid arthritis: Continue home hydroxychloroquine, leflunomide and prednisone as needed. ? Hypothyroidism: Continue home Synthroid. Total clinical time spent by myself addressing the patient's medical issues, reviewing all the data, and collaborating with patient's care team: 35 minutes. Physical Exam Const alert, oriented x3 and no apparent distress Constitutional Narrative: Upper middle-aged female, class II obesity, mildly fatigued appearing but otherwise sitting back comfortably in bed, conversing normally, in no acute distress. General Appearance: cooperative and comfortable HEENT normocephalic, head/scalp atraumatic, hearing grossly normal bilaterally, nasal mucous membranes and turbinates normal and moist oral mucous membranes Eyes PERRL, EOMs intact bilaterally and conjunctivae normal Neck full ROM Chest inspection of chest normal Resp normal respiratory effort and no use of accessory muscles Resp Narrative: Breathing comfortably on 2 L nasal cannula at rest. Mild rhonchi noted in upper airways but otherwise good air movement throughout and no wheezing noted. Cardio regular rate, regular rhythm, no murmurs and peripheral pulses 2+ throughout GI normal to inspection, nondistended, normoactive bowel sounds, soft to palpation, non-tender and non-distended Back/Spine normal ROM Extremity full ROM Extremity Narrative: Right lower extremity swelling improved from admission. Skin no rashes or lesions noted Psych mental status grossly normal Weight / BMI Weight Weight: 98.4 kg Body Mass Index (BMI) 39.6 ABG / Lab / Microbiology Data 10/23/24 08:33 10/23/24 08:33 Laboratory: Laboratory Results - last 24 hr 10/23/24 08:33: WBC 8.2, RBC 4.36, Hgb 12.4, Hct 38.6, MCV 88.5, MCH 28.4, MCHC 32.1, RDW Std Deviation 46.2 H, RDW Coeff of Layla 14.3, Plt Count 241, MPV 9.5, Sodium 141, Potassium 3.2 L, Chloride 99, Carbon Dioxide 32.1 H, Anion Gap 10, BUN 31 H, Creatinine 0.53 L, Estim Creat Clear Calc 122.16, Est GFR (MDRD) Non-Af 105, BUN/Creatinine Ratio 57.9 H, Glucose 173 H, Calcium 9.0 10/23/24 11:38: POC Glucose 191 H Microbiology: Microbiology 10/20/24 06:55 Sputum, Expectorated/Coughed Gram Stain - Final 10/20/24 06:55 Sputum, Expectorated/Coughed Respiratory Culture - Final Haemophilus influenzae 10/18/24 20:11 Mucosa - Nose SARS-CoV-2, Influenza & RSV (PCR) - Final D/C Instructions DC O2, CPAP, BIPAP Needs Home O2 Discharge instructions: Yes Type of respiratory needs?: Oxygen Oxygen frequency: At rest and With Ambulation Oxygen liters per minute during Ambulation: 3 DC home with Oxygen: Yes Home O2 MD Review: I have reviewed the oxygen testing, and the patient qualifies for home oxygen equipment and portability. The patient is mobile in the home and the community. Meaningful Use Info Meaningful Use Meaningful Use Diagnoses (Choose all that apply): VTE Ischemic Stroke Statin Dosing Therapy Reference: STATIN DOSE THERAPY REFERENCE: * Patients > 75 years receive moderate or high dose statin therapy. * Patients 75 years or YOUNGER should receive HIGH intensity statin dose unless contraindicated. You will be required to document reason for non-treatment if statin daily dose does not meet guidelines. HIGH DOSE STATIN THERAPY DAILY Atorvastatin > than or = to 40 mg Rosuvastatin > than or = to 20 mg Amlodipine + Atorvastatin > than or = to 2.5/40 mg Ezetimibe + Simvastatin 10/80 mg Simvastatin 80mg VTE Anticoag overlap given w/in hospital stay or rx'd at dc?: Yes Pt receive overlap for 5 days?: Yes Discharge Plan Admission Admit Date/Time: 10/18/24 23:07 Primary Reason for Your Visit: Shortness of breath with cough and upper abdominal pain Attending Provider: Leobardo Soto Primary Care Provider: Nehemias Arizmendi Consulting Providers: Nhan Robles; Dre Lilly; Sy Gr Instructions Additional Instructions / Restrictions: Please take Augmentin 1 tablet twice daily for 5 more days to complete full course of antibiotics. Please take Eliquis for the blood clots in your legs and lungs as instructed on the package. You can take guaifenesin (Mucinex) twice daily as needed to help with coughing up sputum. Please wear 2 L nasal cannula at rest and 3 L with exertion for now. Goal is to maintain your oxygen saturation at greater than 88%. Follow-up with your primary care doctor in the next few weeks. Discharge Orders/Prescriptions Prescriptions: New guaifenesin [Mucus Relief ER] 1,200 mg Tablet Extended Release 12hr 1,200 mg PO BID 7 Days Qty: 14 0RF amoxicillin-pot clavulanate 875-125 mg tablet 1 tab PO BID 5 Days Qty: 10 0RF Eliquis DVT-PE Treat 30D Start 5 mg (74 tabs) tablets,dose pack See Rx Instructions .ROUTE .COMPLEX Qty: 74 0RF Rx Instructions: orally per package directions Continued hydroxychloroquine 200 mg tablet 200 mg PO BID losartan 100 mg tablet 100 mg PO DAILY amlodipine 10 mg tablet 10 mg PO DAILY meclizine 25 mg tablet 25 mg PO TID PRN (Reason: dizziness) metformin 1,000 mg tablet 1,000 mg PO BID prednisone 10 mg tablet 10 mg PO DAILY PRN (Reason: ARTHRITIS FLARE UP) furosemide 20 mg tablet 20 mg PO DAILY dapagliflozin propanediol [Farxiga] 10 mg tablet 10 mg PO DAILY pantoprazole 40 mg tablet,delayed release (DR/EC) 40 mg PO Q12H PRN (Reason: GERD) cetirizine 10 mg tablet 10 mg PO DAILY PRN (Reason: allergies) leflunomide 20 mg tablet 20 mg PO DAILY gabapentin 100 mg capsule 100 mg PO TID levothyroxine 150 mcg tablet See Rx Instructions .ROUTE .COMPLEX Qty: 90 0RF Dose Instruction: TAKE 1 TABLET BY MOUTH EVERY DAY Rx Instructions: TAKE 1 TABLET BY MOUTH EVERY DAY atorvastatin 20 mg tablet See Rx Instructions .ROUTE .COMPLEX Qty: 90 4RF Dose Instruction: TAKE 1 TABLET BY MOUTH ONCE DAILY AT BEDTIME Rx Instructions: TAKE 1 TABLET BY MOUTH ONCE DAILY AT BEDTIME bismuth subsalicylate [Soothe (bismuth subsalicylate)] 262 mg tablet,chewable 1 tab PO Q6H Qty: 56 0RF Rx Instructions: do not exceed 16 tabs per 24 hrs Referrals / Follow Up: Nehemias Arizmendi MD [Primary Care Provider] - 11/01/24 1:20 pm Disposition Disposition (needs filled in before D/C Order can be placed): Home, Self Care Charges/Coding Visit Charges Inpatient E&M: 30941 Disch Hosp >30min
[2024-10-23] MEDS: guaiFENesin 1,200 MG Tablet 1200 MG PO (11:47)
[2024-10-23 12:11] VITALS: PULSE 93; RESP 18
[2024-10-23 12:16] LABS: Bedside Glucose 191 mg/dL (74-106)
--- NOTE | 2024-10-23 13:29 | PHA.DC_ITS ---
Pharmacy [facility] has performed discharge medication reconciliation and counseling for this patient. 1. Augmentin 875/125mg PO BID x 5 days 2. Apixaban 10mg PO BID x 7 days, then 5mg thereafter 3. Guaifenesin 1200mg PO BID The patient's discharge medication list was reviewed for discrepancies and discrepancies were resolved. The patient was counseled on the following discharge medications and changes in medications for homegoing were reviewed. The Reason for Use, instructions for use, and potential side effects were reviewed for all new medications. The patient's questions regarding all of their medications were answered. The patient was able to verbally demonstrate an understanding of their discharge medications. Patient counseled by pharmacy district manager, Jose. Medications at Discharge Home Medications meclizine 25 mg tablet 25 mg PO TID PRN dizziness 12/16/21 amlodipine 10 mg tablet 10 mg PO DAILY bp 01/01/22 hydroxychloroquine 200 mg tablet 200 mg PO BID ra 01/01/22 losartan 100 mg tablet 100 mg PO DAILY 01/01/22 levothyroxine 150 mcg tablet See Rx Instructions .Route .COMPLEX thyroid #90 tabs 11/02/22 metformin 1,000 mg tablet 1,000 mg PO BID dm 11/16/22 prednisone 10 mg tablet 10 mg PO DAILY PRN ARTHRITIS FLARE UP 11/16/22 atorvastatin 20 mg tablet See Rx Instructions .Route .COMPLEX hld #90 tabs 05/05/23 cetirizine 10 mg tablet 10 mg PO DAILY PRN allergies 01/28/24 gabapentin 100 mg capsule 100 mg PO TID pain 01/28/24 leflunomide 20 mg tablet 20 mg PO DAILY 01/28/24 bismuth subsalicylate 262 mg chewable tablet (Soothe (bismuth subsalicylate)) 1 tab PO Q6H diarrhea #56 tabs 02/08/24 dapagliflozin propanediol 10 mg tablet (Farxiga) 10 mg PO DAILY 10/18/24 furosemide 20 mg tablet 20 mg PO DAILY 10/18/24 pantoprazole 40 mg tablet,delayed release 40 mg PO Q12H PRN GERD 10/18/24 amoxicillin 875 mg-potassium clavulanate 125 mg tablet 1 tab PO BID 5 days #10 tabs 10/23/24 apixaban 5 mg (74 tabs) tablets in a dose pack ([employer] DVT-PE Treat 30D Start) See Rx Instructions PO .COMPLEX #74 tabs 10/23/24 guaifenesin 1,200 mg tablet, extended release 12 hr (Mucus Relief ER) 1,200 mg PO BID 7 days #14 tabs 10/23/24
--- NOTE | 2024-10-23 13:38 | PCM.HOSP.N ---
Hospitalist Note I have reviewed the oxygen testing, and this patient qualifies for the home equipment and portability. The patient is mobile in the home and the community.
--- NOTE | 2024-10-23 13:57 | CASEMGMT ---
Patient has order for discharge. RN CM in to discuss needs at discharge. Patient qualifies for home oxygen at discharge, prefer [employer]. Patient declines HHC or further needs at discharge. Patient had no further questions or concerns. Script received and referral sent to [facility] with arrangements for tank to be delivered to patient's room prior to discharge.
[2024-10-23 14:35] VITALS: BP 103/63; PULSE 86; RESP 18; TEMP 36.7; O2SAT 94
--- NOTE | 2024-10-23 15:00 | CASEMGMT ---
CACHORRO HUYNH received notification from [employer] liaison that patient is not in room for oxygen delivery. Per PCU staff patient discharged prior to receiving oxygen tank. Per [employer] Liaision, Richard, he will calll patient or family and arrange for oxygen delivery to patient's home.
--- NOTE | 2024-10-23 16:30 | CASEMGMT ---
CACHORRO HUYNH received notification from Richard that [employer] is not in-network with patient's insurance. CACHORRO HUYNH verified with [place] website with patient's policy and [employer] is listed as in-network. CACHORRO HUYNH requested [employer] to see if patient is agreeable to [employer] setup until transfer to in-network DME agency is arranged and requested [employer] to transfer referral to in-network DME agency. Per Richard patient could sign ABN and receive equipment temporarily but would received a cost. Pateint had son's girlfriend call in and speak with this CM regarding referral transfer. RN LINO explained possible cost and process for referral transfer and patient was agreeable to have [employer] deliver equipment today. CACHORRO HUYNH updated Richard and Care Management Director.
--- NOTE | 2024-10-23 16:57 | CASEMGMT ---
CACHORRO HUYNH Home O2 Follow-up: This CACHORRO HUYNH contacted [facility] whose healthcare sales representative states pt is covered at 75% with [facility] and pt has a $1300 deductible. Construction Director attempted to contact their nascar driver to determine if a delivery would be possible tonight but he was not answering. Deliverying this evening cannot be guaranteed but they could deliver first thing in the morning. Same explained to Richard with [facility], who states they are attempting to contact pt and caregiver to deliver equipment this evening and then switch to [facility] in the AM. Ever Jaimes RN ACM
--- NOTE | 2024-10-24 12:23 | CASEMGMT ---
CACHORRO CM faxed referral to [facility] at this time.
--- NOTE | 2024-10-24 13:41 | CASEMGMT ---
Fax received from [facility] requesting MD signature. Dr. Soto signed the Rx. Order faxed back to [facility] at this time.
== END 2024-10-23 14:45 | disposition home or self-care (01) | DRG 175 ==
LOC: ED 19:54 → PCU 10-19 02:05
PROVIDERS: Internal Medicine; Admitting Provider Internal Medicine; Emergency Provider Surgery; PCP Family Medicine; Visit Provider Hospitalist
DX: I26.99 Other pulmonary embolism without acute cor pulmonale (principal); J96.01 Acute respiratory failure with hypoxia; J14 Pneumonia due to Hemophilus influenzae; Z68.41 Body mass index [BMI] 40.0-44.9, adult; I82.411 Acute embolism and thrombosis of right femoral vein; E11.40 Type 2 diabetes mellitus with diabetic neuropathy, unspecified; M06.9 Rheumatoid arthritis, unspecified; E03.9 Hypothyroidism, unspecified; E66.01 Morbid (severe) obesity due to excess calories; E78.5 Hyperlipidemia, unspecified; J20.9 Acute bronchitis, unspecified; M41.84 Other forms of scoliosis, thoracic region; K21.9 Gastro-esophageal reflux disease without esophagitis; F17.210 Nicotine dependence, cigarettes, uncomplicated; Z86.718 Personal history of other venous thrombosis and embolism; Z79.899 Other long term (current) drug therapy; Z79.84 Long term (current) use of oral hypoglycemic drugs
CPT/HCPCS: 36415; 36600; 71045; 71046; 71275; 80048; 80053; 82803; 82962; 83690; 83735; 83880; 84100; 84439; 84443; 84481; 84484; 85025; 85027; 85379; 85610; 85730; 87070; 87077; 87205; 87631; 93005; 93306; 93970; 94002; 94003; 94640; 94668; 94762; 99285; 99406; Q9957; Q9967; A4216; C8929; J1940; J2405

== ENCOUNTER → 2024-11-21 | Outpatient (CLI) | payer BC, SELFPAY ==
[2024-11-21 15:23] LABS: Absolute Lymphocyte Count 1.75 X10^3/uL (0.83-4.51); Absolute Neutrophil Count 5.7 X10^3/uL (2.0-7.7); Basophil# 0.05 X10^3/uL; Basophil% 0.6 % (0-1); Eosinophil# 0.15 X10^3/uL; Eosinophils% 1.8 % (0-5); Lymphocyte # 1.75 X10^3/ul (0.83-4.51); Lymphocyte % 21.3 % (19-41); Mean Corp Hgb Conc 31.8 g/dL (32-36); Mean Corpuscular Hgb 28.1 pg (27.0-32.0); Mean Corpuscular Volume 88.2 fL (81-99); Monocyte# 0.54 X10^3/uL; Monocyte% 6.6 % (0-10); NRBC Flagged by Analyzer 0 % (0-5); Neutrophil # 5.69 X10^3/uL (2.7-7.7); Neutrophil % 69.2 % (47-70); Platelet Count 231 K/mm3 (150-450); RBC Distribution Width CV 14.6 % (11.6-14.6); RBC Distribution Width SD 46.7 fl (35.1-43.9); Red Blood Count 4.99 M/mm3 (4.2-5.4); White Blood Count 8.2 K/mm3 (4.4-11.0)
[2024-11-21 16:02] LABS: ALB/GLOB Ratio 1.1 RATIO (0.9-2.4); AST(SGOT) 16 U/L (<=31); Alanine Aminotransfer ALT/SGPT 11 U/L (<=34); Albumin, Serum 4.1 g/dL (3.4-4.8); Alkaline Phosphatase 106 U/L (35-104); Anion Gap 15 (5-15); BUN 17 mg/dL (4-19); Calcium,Total 9.6 mg/dL (7.6-11.0); Carbon Dioxide 21.2 mmol/L (21.0-32.0); Chloride 103 mmol/L (98-108); Creatinine, Serum 0.75 mg/dL (0.70-1.20); EST Glomerular Filtration Rate 91 (>60); Globulin 3.8 g/dL (2.2-4.2); Glucose 216 mg/dL (70-99); Potassium 3.4 mmol/L (3.3-5.1); Protein, Total 7.9 g/dL (5.9-8.4); Sodium Level 139 mmol/L (133-145); Total Bilirubin 0.44 mg/dL (0.00-1.30)
== END | disposition home or self-care (01) ==
LOC: MTLAB 13:31
PROVIDERS: PCP Family Medicine; Referring Provider Internal Medicine Rheumatology; Visit Provider Internal Medicine Rheumatology
DX: M05.79 Rheumatoid arthritis with rheumatoid factor of multiple sites without organ or systems involvement (principal); M79.7 Fibromyalgia; Z79.899 Other long term (current) drug therapy
CPT/HCPCS: 36415; 80053; 85025

== ENCOUNTER → 2024-11-27 | Outpatient (CLI) | payer BC, SELFPAY ==
[2024-11-27 12:30] LABS: Hemoglobin A1c 8.6 % (<=5.6)
[2024-11-27 12:55] LABS: Microalbumin,Random Urine < 12.0 mg/L (NO RANGE EST.); Microalbumin:Creatinine Ratio UNABLE TO CALCULATE mg/g CRE
[2024-11-27 13:00] LABS: ALB/GLOB Ratio 1.1 RATIO (0.9-2.4); AST(SGOT) 18 U/L (<=31); Alanine Aminotransfer ALT/SGPT 11 U/L (<=34); Albumin, Serum 4.3 g/dL (3.4-4.8); Alkaline Phosphatase 106 U/L (35-104); Anion Gap 15 (5-15); BUN 16 mg/dL (4-19); BUN/Creat Ratio 24.2 RATIO (10-20); Calcium,Total 9.9 mg/dL (7.6-11.0); Carbon Dioxide 23.8 mmol/L (21.0-32.0); Chloride 103 mmol/L (98-108); Cholesterol 155 mg/dL (<=200); Creatinine, Serum 0.65 mg/dL (0.70-1.20); EST Glomerular Filtration Rate 100 (>60); Free T3 2.9 pg/mL (2.18-3.98); Glucose 177 mg/dL (70-99); High Density Lipoprotein 65 mg/dL; Low Density Lipoprotein Calc. 57 mg/dL; Potassium 3.8 mmol/L (3.3-5.1); Protein, Total 8.3 g/dL (5.9-8.4); Sodium Level 141 mmol/L (133-145); Thyroid Stim Hormone (TSH) 0.293 uIU/mL (0.300-4.200); Total Bilirubin 0.44 mg/dL (0.00-1.30); Triglycerides 164 mg/dL; Very Low Density Lipoprotein 33 mg/dL (5-40); cholesterol:hdl ratio screen 2.38
== END | disposition home or self-care (01) ==
LOC: MTLAB 10:13
PROVIDERS: PCP Family Medicine; Referring Provider Family Medicine; Visit Provider Family Medicine
DX: E11.40 Type 2 diabetes mellitus with diabetic neuropathy, unspecified (principal); E03.9 Hypothyroidism, unspecified
CPT/HCPCS: 36415; 80053; 80061; 82043; 82570; 83036; 84439; 84443; 84481

== ENCOUNTER 2025-01-14 18:22 | Inpatient (IN) | payer BC, SELFPAY ==
[2025-01-14] VITALS (21 sets, daily range): BP systolic 82–126; BP diastolic 45–75; PULSE 96–145; RESP 22–41; TEMP 36.6–37.7; O2SAT 85–100; BMI 37.1
--- OUTSIDE RECORDS SUMMARY | 2025-01-14 18:49 | XMS RPT_ITS | CCD ---
Author Organization [facility] Care Team Providers Care Maintenance Manager Name Role Phone Dr. Nehemias Arizmendi Primary Care Provider [phone] Nehemias Arizmendi Referring Provider Dr. Nehemias Arizmendi Other Provider Dr. Nehemias Olsen Attending Provider Ngoc Ochoa Attending Provider Unavailable Dr. Nehemias Arizmendi Primary Care Provider [phone] Nehemias Arizmendi Referring Provider 1([facility])[phone] Nehemias Olsen Attending Provider Dr. Nehemias Olsen Referring Provider Dr. Nehemias Olsen Other Provider 1([facility])[phone] Amber Krishnan Attending Provider Unavailable Dr. Edgar Jefferson Attending Provider Dimitri SUPERVISOR [employer], SUPERVISOR [employer]-C Rahel Attending Provider Dimitri SUPERVISOR [employer], SUPERVISOR [employer]-C Rahel Referring Provider Dimitri MANUEL, SUPERVISOR [employer]-C Rahel Other Provider 1([facility])[phone] Edgar Jefferson Referring Provider Dr. Edgar Jefferson Other Provider Dr. Nehemias Arizmendi Primary Care Provider 1([facility])[phone] Nehemias Olsen Attending Provider Dr. Nehemias Olsen Referring Provider Dr. Nehemias Olsen Other Provider 1([facility])[phone] Amber Krishnan Attending Provider Unavailable Dr. Nehemias Arizmendi Referring Provider 1([facility])[phone] Edgar Jefferson Attending Provider Dimitri MANUEL, MAR-Camilo Mcginnis Attending Provider Dimitri SUPERVIS[employer], MAR-Camilo Mcginnis Referring Provider Dimitri MANUEL NP-Camilo Mcginnis Other Provider Dr. Edgar Jefferson Referring Provider Dr. Edgar Jefferson Other Provider DAVID Parikh Attending Provider Dr. Nehemias Arizmendi Primary Care Provider Dr. Nehemias Olsen Attending Provider Dr. Nehemias Arizmendi Referring Provider Ronny, Dr. Edgar Teixeira Attending Provider STAN Mosley NP Attending Provider Dr. Nehemias Arizmendi Primary Care Provider Dr. Nehemias Arizmendi Referring Provider Dr. Nehemias Arizmendi Primary Care Provider Dr. Nehemias Arizmendi Referring Provider Dr. Jason Swift Attending Provider STAN Mosley NP Attending Provider UGO HAMMOND, DR NEHEMIAS Sultana Primary Care Physician EVELYN HAMMOND, ARIANA Admitting Unavailable UGO HAMMOND, DR NEHEMIAS [place] Primary Care Unavailadele POSEY MD, JONATHAN Attending Unavailable UGO HAMMOND, DR NEHEMIAS S[place] Consulting Unavailadele POSEY MD, JONATHAN Consulting Unavailable ALEKS PÉREZ MD, WINIFRED Consulting Unavailable EDUARDO HAMMOND, NIHAD Consulting Unavailable Ugo HAMMOND, Dr. Del Cid Primary Care Provider [phone] Rachel HAMMOND, Dr. Ortiz Attending Provider Ugo HAMMOND, Dr. Del Cid Primary Care Provider [phone] Rachel HAMMOND, Dr. Ortiz Attending Provider Dr. Kyler Hay DO Emergency Provider [facility], Dr. Justin Admit Provider Unavail able de Les DO, Dr. Justin Attending Provider Unav ailable Morenousty-Jean Paul DO, Dr. Chávez Emergency Provider de Les DO, Dr. Justin Admit Provider Unavail able de Les DO, Dr. Justin Other Provider Unavail able Maxx HAMMOND, Dr. Erickson Other Provider [phone] Charles , Dr. Booth [facility]ending Provider [facility] , Dr. Dan Other Provider Brad HAMMOND, Dr. Gale Attending Provider Maxx HAMMOND, Dr. Erickson Attending Provider ny Les , Dr. Justin Referring Provider Unav ailable Simón , Dr. Dan Attending Provider Thelma Pinedo Attending Provider [phone] [facility], Dr. Booth Referring Provider enteropathy. Performed By: #### L 3100.5440, L503.6550, L2100.0000, L803.2200, L3400.3800, L101.9900, L503.6030, L501.6710, L3100.3425, L3300.1200, L3300.0100, L3410.2350, L800.1280, L3000.0375, L3400.0700 ####[facility] [address] [place], [place], [phone] tTG IGG 4 U/mL Normal 0-5 [facility] Comment on above: Order Comment: Test( s) 152474-Oxuojd, Serum or Plasmawas developed and its performance characteristicsdetermined by [employer]. It has not been cleared or approvedby the Food and Drug Administration.N Result Comment: Nega tive 0 - 5 Weak Positive 6 - 9 Positive >9 Performed By: #### L 3100.5440, L503.6550, L2100.0000, L803.2200, L3400.3800, L101.9900, L503.6030, L501.6710, L3100.3425, L3300.1200, L3300.0100, L3410.2350, L800.1280, L3000.0375, L3400.0700 ####[facility] [address] [place], [place], [phone] Ceruloplasminon 02-05-2024 CERULOPLASMIN 33.9 mg/dL Normal 19.0-39.0 [facility] Comment on above: Order Comment: Test( s) 873258-Wrmaae, Serum or Plasmawas developed and its performance characteristicsdetermined by [facility]. It has not been cleared or approvedby the Food and Drug Administration.N Performed By: #### L 3100.5440, L503.6550, L2100.0000, L803.2200, L3400.3800, L101.9900, L503.6030, L501.6710, L3100.3425, L3300.1200, L3300.0100, L3410.2350, L800.1280, L3000.0375, L3400.0700 ####[facility] [address] [place], [place], [phone] Copper, Serum or Plasmaon COPPER, SERUM 146 ug/dL Normal 80-158 [facility] Comment on above: Order Comment: Test( s) 457977-Yjqlms, Serum or Plasmawas developed and its performance characteristicsdetermined by [facility]. It has not been cleared or approvedby the Food and Drug Administration.N Result Comment: Dete ction Limit = 5 Performed By: #### L 3100.5440, L503.6550, L2100.0000, L803.2200, L3400.3800, L101.9900, L503.6030, L501.6710, L3100.3425, L3300.1200, L3300.0100, L3410.2350, L800.1280, L3000.0375, L3400.0700 ####[facility] [address] [place], [address] Hepatitis Panel Acuteon 08- HEP B CORE,IgM Negative Normal Negative [facility] Comment on above: Order Comment: Test( s) 609576-Imxzyx, Serum or Plasmawas developed and its performance characteristicsdetermined by [facility]. It has not been cleared or approvedby the Food and Drug Administration.N Performed By: #### L 3100.5440, L503.6550, L2100.0000, L803.2200, L3400.3800, L101.9900, L503.6030, L501.6710, L3100.3425, L3300.1200, L3300.0100, L3410.2350, L800.1280, L3000.0375, L3400.0700 ####[facility] [address] [place], [address] HEP B SURF AG Negative Normal Negative [facility] Comment on above: Order Comment: Test( s) 863423-Ouliuy, Serum or Plasmawas developed and its performance characteristicsdetermined by [facility]. It has not been cleared or approvedby the Food and Drug Administration.N Performed By: #### L 3100.5440, L503.6550, L2100.0000, L803.2200, L3400.3800, L101.9900, L503.6030, L501.6710, L3100.3425, L3300.1200, L3300.0100, L3410.2350, L800.1280, L3000.0375, L3400.0700 ####[facility] [address] [place], [address] HEP C VIRUS AB Non-Reactive Normal Non Reactive [facility] Comment on above: Order Comment: Test( s) 466766-Mjakvb, Serum or Plasmawas developed and its performance characteristicsdetermined by [facility]. It has not been cleared or approvedby the Food and Drug Administration.N Performed By: #### L 3100.5440, L503.6550, L2100.0000, L803.2200, L3400.3800, L101.9900, L503.6030, L501.6710, L3100.3425, L3300.1200, L3300.0100, L3410.2350, L800.1280, L3000.0375, L3400.0700 ####[facility] [address] [place], [place], [phone] HEPATITIS A-IgM Negative Normal Negative [facility] Comment on above: Order Comment: Test( s) 507702-Qkukdk, Serum or Plasmawas developed and its performance characteristicsdetermined by [facility]. It has not been cleared or approvedby the Food and Drug Administration.N Performed By: #### L 3100.5440, L503.6550, L2100.0000, L803.2200, L3400.3800, L101.9900, L503.6030, L501.6710, L3100.3425, L3300.1200, L3300.0100, L3410.2350, L800.1280, L3000.0375, L3400.0700 ####[facility] [address] [place], [address] ELI + Protein Elect, Serumon 02-05-2024 Albumin [Mass/Vol] 3.2 g/dL Normal 2.9-4.4 [facility] Comment on above: Order Comment: Test( s) 689683-Ulezjb, Serum or Plasmawas developed and its performance characteristicsdetermined by [facility]. It has not been cleared or approvedby the Food and Drug Administration.N Performed By: #### L 3100.5440, L503.6550, L2100.0000, L803.2200, L3400.3800, L101.9900, L503.6030, L501.6710, L3100.3425, L3300.1200, L3300.0100, L3410.2350, L800.1280, L3000.0375, L3400.0700 ####[facility] [address] [place], [address] Albumin/Globulin [Mass ratio] 0.9 {ratio} Normal 0.7-1.7 [facility] Comment on above: Order Comment: Test( s) 713983-Xozxjg, Serum or Plasmawas developed and its performance characteristicsdetermined by [facility]. It has not been cleared or approvedby the Food and Drug Administration.N Performed By: #### L 3100.5440, L503.6550, L2100.0000, L803.2200, L3400.3800, L101.9900, L503.6030, L501.6710, L3100.3425, L3300.1200, L3300.0100, L3410.2350, L800.1280, L3000.0375, L3400.0700 ####[facility] [address] [place], [address] HKPYB-4-AKPH 0.3 g/dL Normal 0.0-0.4 [facility] Comment on above: Order Comment: Test( s) 352713-Lvbvju, Serum or Plasmawas developed and its performance characteristicsdetermined by [facility]. It has not been cleared or approvedby the Food and Drug Administration.N Performed By: #### L 3100.5440, L503.6550, L2100.0000, L803.2200, L3400.3800, L101.9900, L503.6030, L501.6710, L3100.3425, L3300.1200, L3300.0100, L3410.2350, L800.1280, L3000.0375, L3400.0700 ####[facility] [address] [place], [address] HNVZJ-8-UUSF 1.0 g/dL Normal 0.4-1.0 [facility] Comment on above: Order Comment: Test( s) 733626-Ewzclc, Serum or Plasmawas developed and its performance characteristicsdetermined by [facility]. It has not been cleared or approvedby the Food and Drug Administration.N Performed By: #### L 3100.5440, L503.6550, L2100.0000, L803.2200, L3400.3800, L101.9900, L503.6030, L501.6710, L3100.3425, L3300.1200, L3300.0100, L3410.2350, L800.1280, L3000.0375, L3400.0700 ####[facility] [address] [place], [address] BETA GLOBULIN 1.4 g/dL High 0.7-1.3 [facility] Comment on above: Order Comment: Test( s) 228591-Fxtrwh, Serum or Plasmawas developed and its performance characteristicsdetermined by [facility]. It has not been cleared or approvedby the Food and Drug Administration.N Performed By: #### L 3100.5440, L503.6550, L2100.0000, L803.2200, L3400.3800, L101.9900, L503.6030, L501.6710, L3100.3425, L3300.1200, L3300.0100, L3410.2350, L800.1280, L3000.0375, L3400.0700 ####[facility] [address] [place], [address] GAMMA GLOBULIN 0.9 g/dL Normal 0.4-1.8 [facility] Comment on above: Order Comment: Test( s) 167276-Uieocd, Serum or Plasmawas developed and its performance characteristicsdetermined by [facility]. It has not been cleared or approvedby the Food and Drug Administration.N Performed By: #### L 3100.5440, L503.6550, L2100.0000, L803.2200, L3400.3800, L101.9900, L503.6030, L501.6710, L3100.3425, L3300.1200, L3300.0100, L3410.2350, L800.1280, L3000.0375, L3400.0700 ####[facility] [address] [facility] [address] [place], [address] Globulin (S) [Mass/Vol] 3.7 g/dL Normal 2.2-3.9 [facility] Comment on above: Order Comment: Test( s) 185407-Fsomps, Serum or Plasmawas developed and its performance characteristicsdetermined by [employer]. It has not been cleared or approvedby the Food and Drug Administration.N Performed By: #### L 3100.5440, L503.6550, L2100.0000, L803.2200, L3400.3800, L101.9900, L503.6030, L501.6710, L3100.3425, L3300.1200, L3300.0100, L3410.2350, L800.1280, L3000.0375, L3400.0700 ####[facility] [address] [place], [address] ELI RESULT,S Comment Abnormal . [facility] Comment on above: Order Comment: Test( s) 430140-Phyjoz, Serum or Plasmawas developed and its performance characteristicsdetermined by [facility]. It has not been cleared or approvedby the Food and Drug Administration.N Result Comment: Immu nofixation shows IgG monoclonal protein with kappalight chain specificity. PLEASE NOTE: Samples from patients receiving DARZALEX(R)(daratumumab) or SARCLISA(R)(isatuximab-[facility]) treatmentcan appear as an "IgG kappa" and mask a complete response(CR). If this patient is receiving these therapies, thisIFE assay interference can be removed by ordering testnumber [id number]-"Immunofixation, Daratumumab-Specific,Serum" or 066866-"Immunofixation, Isatuximab-Specific,Serum" and submitting a new sample for testing or bycalling the lab to add this test to the current sample. Performed By: #### L 3100.5440, L503.6550, L2100.0000, L803.2200, L3400.3800, L101.9900, L503.6030, L501.6710, L3100.3425, L3300.1200, L3300.0100, L3410.2350, L800.1280, L3000.0375, L3400.0700 ####[facility] [address] [place], [address] IMMUNOGLOB A QN 457 mg/dL High 87-352 [facility] Comment on above: Order Comment: Test( s) 588951-Lpyasf, Serum or Plasmawas developed and its performance characteristicsdetermined by [facility]. It has not been cleared or approvedby the Food and Drug Administration.N Performed By: #### L 3100.5440, L503.6550, L2100.0000, L803.2200, L3400.3800, L101.9900, L503.6030, L501.6710, L3100.3425, L3300.1200, L3300.0100, L3410.2350, L800.1280, L3000.0375, L3400.0700 ####[facility] [address] [place], [place], [address] IMMUNOGLOB G QN 1075 mg/dL Normal 586-1602 [facility] Comment on above: Order Comment: Test( s) 820545-Sjilkj, Serum or Plasmawas developed and its performance characteristicsdetermined by [facility]. It has not been cleared or approvedby the Food and Drug Administration.N Performed By: #### L 3100.5440, L503.6550, L2100.0000, L803.2200, L3400.3800, L101.9900, L503.6030, L501.6710, L3100.3425, L3300.1200, L3300.0100, L3410.2350, L800.1280, L3000.0375, L3400.0700 ####[facility] [address] [place], [place], [address] IMMUNOGLOB M QN 30 mg/dL Normal 26-217 [facility] Comment on above: Order Comment: Test( s) 861128-Bxsnmd, Serum or Plasmawas developed and its performance characteristicsdetermined by [facility]. It has not been cleared or approvedby the Food and Drug Administration.N Performed By: #### L 3100.5440, L503.6550, L2100.0000, L803.2200, L3400.3800, L101.9900, L503.6030, L501.6710, L3100.3425, L3300.1200, L3300.0100, L3410.2350, L800.1280, L3000.0375, L3400.0700 ####[facility] [address] [place], [address] M-Min Comment: Normal Not Observed [facility] Comment on above: Order Comment: Test( s) 514996-Bamwjd, Serum or Plasmawas developed and its performance characteristicsdetermined by [facility]. It has not been cleared or approvedby the Food and Drug Administration.N Result Comment: Due to the small quantity of monoclonal protein, unable toquantitate the M-spike. Performed By: #### L 3100.5440, L503.6550, L2100.0000, L803.2200, L3400.3800, L101.9900, L503.6030, L501.6710, L3100.3425, L3300.1200, L3300.0100, L3410.2350, L800.1280, L3000.0375, L3400.0700 ####[facility] [address] [place], [address] NOTE: Comment Normal . [facility] Comment on above: Order Comment: Test( s) 238078-Yfjcfq, Serum or Plasmawas developed and its performance characteristicsdetermined by [facility]. It has not been cleared or approvedby the Food and Drug Administration.N Result Comment: Prot ein electrophoresis scan will follow via computer,mail, or forming machine upkeep mechanic helper delivery. Performed By: #### L 3100.5440, L503.6550, L2100.0000, L803.2200, L3400.3800, L101.9900, L503.6030, L501.6710, L3100.3425, L3300.1200, L3300.0100, L3410.2350, L800.1280, L3000.0375, L3400.0700 ####[facility] [address] [place], [place], [phone] Protein [Mass/Vol] 6.9 g/dL Normal 6.0-8.5 [facility] Comment on above: Order Comment: Test( s) 513104-Ctwzum, Serum or Plasmawas developed and its performance characteristicsdetermined by [facility]. It has not been cleared or approvedby the Food and Drug Administration.N Performed By: #### L 3100.5440, L503.6550, L2100.0000, L803.2200, L3400.3800, L101.9900, L503.6030, L501.6710, L3100.3425, L3300.1200, L3300.0100, L3410.2350, L800.1280, L3000.0375, L3400.0700 ####[facility] [address] [place], [place], [phone]- L2100.0000on 02-05-2024 ACCA 72 units Normal 0-90 [facility] Comment on above: Order Comment: Test( s) 550060-Chhvrx, Serum or Plasmawas developed and its performance characteristicsdetermined by [employer] [facility] [employer]. It has not been cleared or approvedby the Food and Drug Administration.N Result Comment: Nega tive: <80 Equivocal: 80-90 Positive: >90 Performed By: #### L 3100.5440, L503.6550, L2100.0000, L803.2200, L3400.3800, L101.9900, L503.6030, L501.6710, L3100.3425, L3300.1200, L3300.0100, L3410.2350, L800.1280, L3000.0375, L3400.0700 ####[facility] [address] [place], [place], [phone] ALCA 26 units Normal 0-60 [facility] Comment on above: Order Comment: Test( s) 604482-Kqhsqk, Serum or Plasmawas developed and its performance characteristicsdetermined by [facility]. It has not been cleared or approvedby the Food and Drug Administration.N Result Comment: Nega tive:<55 Equivocal: 55-60 Positive: >60 Performed By: #### L 3100.5440, L503.6550, L2100.0000, L803.2200, L3400.3800, L101.9900, L503.6030, L501.6710, L3100.3425, L3300.1200, L3300.0100, L3410.2350, L800.1280, L3000.0375, L3400.0700 ####[facility] [address] [place], [address] AMCA 144 units High 0-100 [facility] Comment on above: Order Comment: Test( s) 103137-Ijraof, Serum or Plasmawas developed and its performance characteristicsdetermined by [facility]. It has not been cleared or approvedby the Food and Drug Administration.N Result Comment: Nega tive: <90 Equivocal: 90-100 Positive: >100 This test was developed and its performance characteristics determined by [facility]. It has not been cleared or approved by the Food and Drug Administration. The FDA has determined that such clearance or approval is not necessary. Performed By: #### L 3100.5440, L503.6550, L2100.0000, L803.2200, L3400.3800, L101.9900, L503.6030, L501.6710, L3100.3425, L3300.1200, L3300.0100, L3410.2350, L800.1280, L3000.0375, L3400.0700 ####[facility] [address] [place], [address] Atypical pANCA Negative Normal Negative [facility] Comment on above: Order Comment: Test( s) 958424-Aenhes, Serum or Plasmawas developed and its performance characteristicsdetermined by [facility]. It has not been cleared or approvedby the Food and Drug Administration.N Performed By: #### L 3100.5440, L503.6550, L2100.0000, L803.2200, L3400.3800, L101.9900, L503.6030, L501.6710, L3100.3425, L3300.1200, L3300.0100, L3410.2350, L800.1280, L3000.0375, L3400.0700 ####[facility] [address] [place], [place], [phone] COMMENT Comment Normal . [facility] Comment on above: Order Comment: Test( s) 365500-Jrfipd, Serum or Plasmawas developed and its performance characteristicsdetermined by [facility]. It has not been cleared or approvedby the Food and Drug Administration.N Result Comment: Sugg estive of Crohn's Disease. Pattern is not conclusivefor disease behavior risk stratification. Performed By: #### L 3100.5440, L503.6550, L2100.0000, L803.2200, L3400.3800, L101.9900, L503.6030, L501.6710, L3100.3425, L3300.1200, L3300.0100, L3410.2350, L800.1280, L3000.0375, L3400.0700 ####[facility] [address] [facility] [place], [place], [phone] Result Comment: Not infected with HCV unless early or acute infection issuspected (which may be delayed in an immunocompromisedindividual), or other evidence exists to indicate HCVinfection. Diane 15 units Normal 0-50 [facility] Comment on above: Order Comment: Test( s) 134876-Mwymxr, Serum or Plasmawas developed and its performance characteristicsdetermined by [facility]. It has not been cleared or approvedby the Food and Drug Administration.N Result Comment: Nega tive: <45 Equivocal: 45-50 Positive: >50 Performed By: #### L 3100.5440, L503.6550, L2100.0000, L803.2200, L3400.3800, L101.9900, L503.6030, L501.6710, L3100.3425, L3300.1200, L3300.0100, L3410.2350, L800.1280, L3000.0375, L3400.0700 ####[facility] [address] [place], [place], [phone] Transferrinon 02-05-2024 Transferrin [Mass/Vol] 290 mg/dL Normal 192-364 [facility] Comment on above: Order Comment: Test( s) 042172-Pivhxm, Serum or Plasmawas developed and its performance characteristicsdetermined by [facility]. It has not been cleared or approvedby the Food and Drug Administration.N Result Comment: Perf ormed at: [facility] [employer] [id number] Director: Luis Felipe Wong PhD, Phone: [phone] at: [facility] [employer] [id number] Director: Aurelia Child MD, Phone: [phone] Performed By: #### L 3100.5440, L503.6550, L2100.0000, L803.2200, L3400.3800, L101.9900, L503.6030, L501.6710, L3100.3425, L3300.1200, L3300.0100, L3410.2350, L800.1280, L3000.0375, L3400.0700 ####[facility] [address] [place], [place], [phone] MARITZA Comprehensive Panelon MARITZA TABLE Comment Normal . [facility] Comment on above: Result Comment: Auto antibody Disease Association -------- Condition Frequency ---------Antinuclear Antibody, SLE, mixed connectiveDirect (MARITZA-D) tissue diseases ---------dsDNA SLE 40 - 60% ---------Chromatin Drug induced SLE 90% SLE 48 - 97% ---------SSA (Ro) SLE 25 - 35% Sjogren's Syndrome 40 - 70% Lupus 100% ---------SSB (La) SLE 10% Sjogren's Syndrome 30% ---------Sm (anti-Rivera) SLE 15 - 30% ---------[employer] Mixed Connective Tissue Disease 95%(U1 nRNP, SLE 30 - 50%anti-ribonucleoprotein) Polymyositis and/or Dermatomyositis 20% ---------Scl-70 (antiDNA Scleroderma (diffuse) 20 - 35%topoisomerase) Crest 13% ---------Dinah-1 Polymyositis and/or Dermatomyositis 20 - 40% ---------Centromere B Scleroderma - Crest variant 80% Performed By: #### L 3100.5440, L503.6550, L2100.0000, L803.2200, L3400.3800, L101.9900, L503.6030, L501.6710, L3100.3425, L3300.1200, L3300.0100, L3410.2350, L800.1280, L3000.0375, L3400.0700 ####[facility] [address] [facility]. [place], [place], [id number] ANTI-CENT B AB <0.2 Normal 0.0-0.9 [facility] Comment on above: Performed By: #### L 3100.5440, L503.6550, L2100.0000, L803.2200, L3400.3800, L101.9900, L503.6030, L501.6710, L3100.3425, L3300.1200, L3300.0100, L3410.2350, L800.1280, L3000.0375, L3400.0700 ####[facility] [address] [facility] [place], [address] ANTI-DNA (DS)AB <1 Normal 0-9 [facility] Comment on above: Result Comment: Nega tive <5 Equivocal 5 - 9 Positive >9 Performed By: #### L 3100.5440, L503.6550, L2100.0000, L803.2200, L3400.3800, L101.9900, L503.6030, L501.6710, L3100.3425, L3300.1200, L3300.0100, L3410.2350, L800.1280, L3000.0375, L3400.0700 ####[facility] [address] [place], [place], [phone] ANTI-DINAH-1 <0.2 Normal 0.0-0.9 [facility] Comment on above: Performed By: #### L 3100.5440, L503.6550, L2100.0000, L803.2200, L3400.3800, L101.9900, L503.6030, L501.6710, L3100.3425, L3300.1200, L3300.0100, L3410.2350, L800.1280, L3000.0375, L3400.0700 ####[facility] [address] [place], [place], [phone] ANTI-SS-A < 0.2 Normal 0.0-0.9 [facility] Comment on above: Performed By: #### L 3100.5440, L503.6550, L2100.0000, L803.2200, L3400.3800, L101.9900, L503.6030, L501.6710, L3100.3425, L3300.1200, L3300.0100, L3410.2350, L800.1280, L3000.0375, L3400.0700 ####[facility] [address] [place], [address] ANTI-SS-B < 0.2 Normal 0.0-0.9 [facility] Comment on above: Performed By: #### L 3100.5440, L503.6550, L2100.0000, L803.2200, L3400.3800, L101.9900, L503.6030, L501.6710, L3100.3425, L3300.1200, L3300.0100, L3410.2350, L800.1280, L3000.0375, L3400.0700 ####[facility] [address] [place], [place], [phone] ANTICHROMATIN <0.2 Normal 0.0-0.9 [facility] Comment on above: Performed By: #### L 3100.5440, L503.6550, L2100.0000, L803.2200, L3400.3800, L101.9900, L503.6030, L501.6710, L3100.3425, L3300.1200, L3300.0100, L3410.2350, L800.1280, L3000.0375, L3400.0700 ####[facility] [address] [place], [place], [phone] ANTISCLERODERM <0.2 Normal 0.0-0.9 [facility] Comment on above: Performed By: #### L 3100.5440, L503.6550, L2100.0000, L803.2200, L3400.3800, L101.9900, L503.6030, L501.6710, L3100.3425, L3300.1200, L3300.0100, L3410.2350, L800.1280, L3000.0375, L3400.0700 ####[facility] [address] [place], [place], [phone] [employer]AIR Ab <0.2 Normal 0.0-0.9 [facility] Comment on above: Performed By: #### L 3100.5440, L503.6550, L2100.0000, L803.2200, L3400.3800, L101.9900, L503.6030, L501.6710, L3100.3425, L3300.1200, L3300.0100, L3410.2350, L800.1280, L3000.0375, L3400.0700 ####[facility] [address] [place], [address] RIVERA Ab <0.2 Normal 0.0-0.9 [facility] Comment on above: Performed By: #### L 3100.5440, L503.6550, L2100.0000, L803.2200, L3400.3800, L101.9900, L503.6030, L501.6710, L3100.3425, L3300.1200, L3300.0100, L3410.2350, L800.1280, L3000.0375, L3400.0700 ####[facility] [address] [place], [place], [address] Anti-Mitochondrial ABon ANTIMITOCHON AB <20.0 Normal 0.0-20.0 [facility] Comment on above: Result Comment: Nega tive 0.0 - 20.0 Equivocal 20.1 - 24.9 Positive >24.9Mitochondrial (M2) Antibodies are found in 90-96% ofpatients with primary biliary cirrhosis.Performed at: [facility] [place] [id number] Director: Luis Felipe Wong PhD, Phone: [phone] Performed By: #### L 3100.5440, L503.6550, L2100.0000, L803.2200, L3400.3800, L101.9900, L503.6030, L501.6710, L3100.3425, L3300.1200, L3300.0100, L3410.2350, L800.1280, L3000.0375, L3400.0700 ####[facility] [address] [place], [place], [address] 12 Lead EKGon 01-31-2024 12 Lead EKG Normal [facility] Abdomen Limitedon 01-31-2024 Abdomen Limited Normal [facility] Bedside Glucoseon 01-31-2024 FINGERSTICK GLU 225 mg/dL High 74-106 [facility] Comment on above: Result Comment: SARA HURTADO OF PATIENT CARE PER NURSING PROTOCOL Performed By: #### L 501.080 ####[facility] [address] [place], [address] FINGERSTICK GLU 118 mg/dL High 74-106 [facility] Comment on above: Result Comment: SARA GEMENT OF PATIENT CARE PER NURSING PROTOCOL Performed By: #### L 501.080 ####[facility] [address] [place], [address] FINGERSTICK GLU 126 mg/dL High 74-106 [facility] Comment on above: Result Comment: SARA GEMENT OF PATIENT CARE PER NURSING PROTOCOL Performed By: #### L 501.080 ####[facility] [address] [place], [address] FINGERSTICK GLU 115 mg/dL High 74-106 [facility] Comment on above: Result Comment: SARA GEMENT OF PATIENT CARE PER NURSING PROTOCOL Performed By: #### L 501.080 ####[facility] [address] [place], [address] CRPon 01-31-2024 C-REACTIVE PROT 11.80 mg/L High 0.0-3.0 [facility] Comment on above: Result Comment: C-Re active Protein (CRP) provides useful information for thediagnosis, therapy and monitoring of inflammatory processesand associated diseases. For the evaluation of Relative Riskfor Cardiovascular Disease, a High Sensitivity CRP (HSCRP)should be ordered. Performed By: #### L 3100.5440, L503.6550, L2100.0000, L803.2200, L3400.3800, L101.9900, L503.6030, L501.6710, L3100.3425, L3300.1200, L3300.0100, L3410.2350, L800.1280, L3000.0375, L3400.0700 ####[facility] [address] [place], [address] Discharge Instructionon 08-0 Discharge Instruction Normal [facility] EGD Reporton 01-31-2024 EGD Report Normal [facility] Erythrocyte Sed Rateon 01-30 SED RATE 38 mm/hr High 0-30 [facility] Comment on above: Performed By: #### L 3100.5440, L503.6550, L2100.0000, L803.2200, L3400.3800, L101.9900, L503.6030, L501.6710, L3100.3425, L3300.1200, L3300.0100, L3410.2350, L800.1280, L3000.0375, L3400.0700 ####[facility] [address] [place], [address](196) Ferritinon 01-31-2024 Ferritin [Mass/Vol] 72 ng/mL Normal 8-252 [facility] Comment on above: Performed By: #### L 3100.5440, L503.6550, L2100.0000, L803.2200, L3400.3800, L101.9900, L503.6030, L501.6710, L3100.3425, L3300.1200, L3300.0100, L3410.2350, L800.1280, L3000.0375, L3400.0700 ####[facility] [address] [place], [place], [phone] H Pylori (initial)on 024 H Pylori (initial) Normal [facility] Comment on above: Performed By: #### P H.PYLORI ####[facility] [address] [place], [place], [phone] Iron+Iron Binding Capacityon 01-31-2024 Iron [Mass/Vol] 44 ug/dL Low 50-170 [facility] Comment on above: Performed By: #### L 3100.5440, L503.6550, L2100.0000, L803.2200, L3400.3800, L101.9900, L503.6030, L501.6710, L3100.3425, L3300.1200, L3300.0100, L3410.2350, L800.1280, L3000.0375, L3400.0700 ####[facility] [address] [place], [place], [phone] IRON SATURATION 12.2 Low 15.0-55.0 [facility] Comment on above: Performed By: #### L 3100.5440, L503.6550, L2100.0000, L803.2200, L3400.3800, L101.9900, L503.6030, L501.6710, L3100.3425, L3300.1200, L3300.0100, L3410.2350, L800.1280, L3000.0375, L3400.0700 ####[facility] [address] [place], [place], [phone] TIBC 362 ug/dL Normal 250-450 [facility] Comment on above: Performed By: #### L 3100.5440, L503.6550, L2100.0000, L803.2200, L3400.3800, L101.9900, L503.6030, L501.6710, L3100.3425, L3300.1200, L3300.0100, L3410.2350, L800.1280, L3000.0375, L3400.0700 ####[facility] [address] [place], [place], [phone] MR/POSTOP.ANEon 01-31-2024 MR/POSTOP.ANE Normal [facility] MR/TUPRSEAI3jx 01-31-2024 MR/POSTOPAN2 Normal [facility] Surgery Specimen Level Evita 01-31-2024 Surgery Specimen Level IV Normal [facility] Comment on above: Performed By: #### P SUIV ####[facility] [address] [place], [place], [phone] Thyroid Stim Hormone (TSH)on 01-31-2024 TSH 0.16 uIU/mL Low 0.358-3.74 [facility] Comment on above: Performed By: #### L 501.9520 ####[facility] [address] [place], [address] Bedside Glucoseon 01-30-2024 FINGERSTICK GLU 116 mg/dL High 74-106 [facility] Comment on above: Result Comment: SARA GEMENT OF PATIENT CARE PER NURSING PROTOCOL Performed By: #### L 501.080 ####[facility] [address] [place], [address] FINGERSTICK GLU 126 mg/dL High 74-106 [facility] Comment on above: Result Comment: SARA GEMENT OF PATIENT CARE PER NURSING PROTOCOL Performed By: #### L 501.080 ####[facility] [address] [place], [address] FINGERSTICK GLU 109 mg/dL High 74-106 [facility] Comment on above: Result Comment: SARA GEMENT OF PATIENT CARE PER NURSING PROTOCOL Performed By: #### L 501.080 ####[facility] [address] [place], [address] Bedside Glucoseon 01-29-2024 FINGERSTICK GLU 109 mg/dL High 74-106 [facility] Comment on above: Result Comment: SARA GEMENT OF PATIENT CARE PER NURSING PROTOCOL Performed By: #### L 501.080 ####[facility] [address] [place], [address] FINGERSTICK GLU 116 mg/dL High 74-106 [facility] Comment on above: Result Comment: SARA GEMENT OF PATIENT CARE PER NURSING PROTOCOL Performed By: #### L 501.080 ####[facility] [address] [place], [address] FINGERSTICK GLU 98 mg/dL Normal 74-106 [facility] Comment on above: Result Comment: SARA GEMENT OF PATIENT CARE PER NURSING PROTOCOL Performed By: #### L 501.080 ####[facility] [address] [place], [address] CBC W/Diff, Automatedon 08-0 3-2023 Absolute Lymph 1.14 X10 3/uL Normal 0.83-4.51 [facility] Comment on above: Performed By: #### L 500.4050, L100.0100 ####[facility] [address] [place], [address] Absolute Neut 4.5 X10 3/uL Normal 2.0-7.7 [facility] Comment on above: Performed By: #### L 500.4050, L100.0100 ####[facility] [address] [place], [address] Basophils/100 WBC (Bld) 0.5 % Normal 0-1 [facility] Comment on above: Performed By: #### L 500.4050, L100.0100 ####[facility] [address] [place], [address] Eosinophils/100 WBC (Bld) 3.8 % Normal 0-5 [facility] Comment on above: Performed By: #### L 500.4050, L100.0100 ####[facility] [address] [place], [address] Erythrocyte distribution width (RBC) [Ratio] 14.6 % Normal 11.6-14.6 [facility] Comment on above: Performed By: #### L 500.4050, L100.0100 ####[facility] [address] [place], [address] Hematocrit (Bld) [Volume fraction] 44.4 % Normal 37-47 [facility] Comment on above: Performed By: #### L 500.4050, L100.0100 ####[facility] [address] [place], [address] Hemoglobin (Bld) [Mass/Vol] 13.9 g/dL Normal 12.0-15.0 [facility] Comment on above: Performed By: #### L 500.4050, L100.0100 ####[facility] [address] [place], [address] IG% 0.200 Normal 0.0-0.9 [facility] Comment on above: Result Comment: IG% - Immature Granulocytes (promyelocytes, myelocytes andmetamyelocytes) > 1% indicates that a LEFT SHIFT is Present. Performed By: #### L 500.4050, L100.0100 ####[facility] [address] [place], [address] Lymphocytes/100 WBC (Bld) 17.9 % Low 19-41 [facility] Comment on above: Performed By: #### L 500.4050, L100.0100 ####[facility] [address] [place], [address] MCH (RBC) [Entitic mass] 27.7 pg Normal 27.0-32.0 [facility] Comment on above: Performed By: #### L 500.4050, L100.0100 ####[facility] [address] [place], [address] MCHC (RBC) [Mass/Vol] 31.3 g/dL Low 32-36 [facility] Comment on above: Performed By: #### L 500.4050, L100.0100 ####[facility] [address] [place], [address] MCV (RBC) [Entitic vol] 88.6 fL Normal 81-99 [facility] Comment on above: Performed By: #### L 500.4050, L100.0100 ####[facility] [address] [place], [address] Monocytes/100 WBC (Bld) 6.9 % Normal 0-10 [facility] Comment on above: Performed By: #### L 500.4050, L100.0100 ####[facility] [address] [place], [address] Neutrophils/100 WBC (Bld) 70.7 % High 47-70 [facility] Comment on above: Performed By: #### L 500.4050, L100.0100 ####[facility] [address] [place], [address] Nucleated RBC (Bld) [#/Vol] 0 10*3/uL Normal 0-5 [facility] Comment on above: Performed By: #### L 500.4050, L100.0100 ####[facility] [address] [place], [address] Platelet mean volume (Bld) [Entitic vol] 9.8 fL Normal 6.2-12.0 [facility] Comment on above: Performed By: #### L 500.4050, L100.0100 ####[facility] [address] [place], [address] Platelets (Bld) [#/Vol] 164 10*3/uL Normal 150-450 [facility] Comment on above: Performed By: #### L 500.4050, L100.0100 ####[facility] [address] [place], [address] RBC (Bld) [#/Vol] 5.01 10*6/uL Normal 4.2-5.4 [facility] Comment on above: Performed By: #### L 500.4050, L100.0100 ####[facility] [address] [place], [address] RDW SD 46.6 fl High 35.1-43.9 [facility] Comment on above: Performed By: #### L 500.4050, L100.0100 ####[facility] [address] [place], [address] WBC (Bld) [#/Vol] 6.4 10*3/uL Normal 4.4-11.0 [facility] Comment on above: Performed By: #### L 500.4050, L100.0100 ####[facility] [address] [place], [address] Comprehensive Metabolic Prof ilon 01-29-2024 Albumin [Mass/Vol] 2.8 g/dL Low 3.2-5.0 [facility] Comment on above: Performed By: #### L 500.4050, L100.0100 ####[facility] [address] [place], [address] Albumin/Globulin [Mass ratio] 0.7 {ratio} Low 0.9-2.4 [facility] Comment on above: Performed By: #### L 500.4050, L100.0100 ####[facility] [address] [place], [address] ALK P 82 U/L Normal 45-117 [facility] Comment on above: Performed By: #### L 500.4050, L100.0100 ####[facility] [address] [place], [address] ALT [Catalytic activity/Vol] 13 U/L Normal 13-56 [facility] Comment on above: Performed By: #### L 500.4050, L100.0100 ####[facility] [address] [place], [address] AST [Catalytic activity/Vol] 13 U/L Low 15-37 [facility] Comment on above: Performed By: #### L 500.4050, L100.0100 ####[facility] [address] [place], [address] Bilirubin [Mass/Vol] 0.30 mg/dL Normal 0.20-1.00 [facility] Comment on above: Result Comment: For patients on eltrombopag therapy, use of Dimension [place] TBIL is not recommended. Performed By: #### L 500.4050, L100.0100 ####[facility] [address] [place], [address] BUN/CRE 31.2 RATIO High 10-20 [facility] Comment on above: Performed By: #### L 500.4050, L100.0100 ####[facility] [address] [place], [address] CA,Total 8.7 mg/dL Normal 8.5-10.1 [facility] Comment on above: Performed By: #### L 500.4050, L100.0100 ####[facility] [address] [place], [address] Chloride [Moles/Vol] 110 mmol/L High 98-107 [facility] Comment on above: Performed By: #### L 500.4050, L100.0100 ####[facility] [address] [place], [address] CO2 [Moles/Vol] 24.0 mmol/L Normal 21.0-32.0 [facility] Comment on above: Performed By: #### L 500.4050, L100.0100 ####[facility] [address] [place], [address] Creatinine [Mass/Vol] 0.45 mg/dL Low 0.55-1.02 [facility] Comment on above: Result Comment: The validity of the calculated GFR GFRAA in patients over70 years has not been determined. Clinical correlation isessential. Performed By: #### L 500.4050, L100.0100 ####[facility] [address] [place], [address] ECRCL 145.23 ml/min Normal [facility] Comment on above: Performed By: #### L 500.4050, L100.0100 ####[facility] [address] [place], [address] EST GFR - AA 183 mL/min Normal >60 [facility] Comment on above: Result Comment: Afri can [facility] GFR Calc Performed By: #### L 500.4050, L100.0100 ####[facility] [address] [place], [address] GAP 5 Normal 5-15 [facility] Comment on above: Performed By: #### L 500.4050, L100.0100 ####[facility] [address] [place], [address] GFR/1.73 sq M.predicted among non-blacks MDRD (S/P/Bld) [Vol rate/Area] 152 mL/min/{1.73_m2} Normal >60 [facility] Comment on above: Result Comment: Non- GFR Calc Performed By: #### L 500.4050, L100.0100 ####[facility] [address] [place], [address] Globulin (S) [Mass/Vol] 3.9 g/dL Normal 2.2-4.2 [facility] Comment on above: Performed By: #### L 500.4050, L100.0100 ####[facility] [address] [place], [address] Glucose [Mass/Vol] 127 mg/dL High 74-106 [facility] Comment on above: Result Comment: Fast ing Glucose result greater than or equal to 126 mg/dLsuggests DIABETES MELLITUS per A.D.A. criteria. Performed By: #### L 500.4050, L100.0100 ####[facility] [address] [place], [address] Potassium [Moles/Vol] 3.6 mmol/L Normal 3.5-5.1 [facility] Comment on above: Performed By: #### L 500.4050, L100.0100 ####[facility] [address] [place], [address] Sodium [Moles/Vol] 139 mmol/L Normal 136-145 [facility] Comment on above: Performed By: #### L 500.4050, L100.0100 ####[facility] [address] [place], [address] T PROT 6.7 g/dL Normal 6.4-8.2 [facility] Comment on above: Performed By: #### L 500.4050, L100.0100 ####[facility] [address] [place], [address] Urea nitrogen [Mass/Vol] 14 mg/dL Normal 7-18 [facility] Comment on above: Performed By: #### L 500.4050, L100.0100 ####[facility] [address] [place], [address] MR/PN.GIon 01-29-2024 MR/PN.GI Normal [facility] Abdomen/Pelvis W IV Cont ONL Yon 01-28-2024 Abdomen/Pelvis W IV Cont ONLY Normal [facility] Basic Metabolic Profile (BMP )on 01-28-2024 BUN/CRE 29.2 RATIO High 10-20 [facility] Comment on above: Performed By: #### L 500.3400, L501.2450, L100.0100, L500.2500 ####[facility] [address] [place], [address] CA,Total 9.3 mg/dL Normal 8.5-10.1 [facility] Comment on above: Performed By: #### L 500.3400, L501.2450, L100.0100, L500.2500 ####[facility] [address] [place], [address] Chloride [Moles/Vol] 107 mmol/L Normal 98-107 [facility] Comment on above: Performed By: #### L 500.3400, L501.2450, L100.0100, L500.2500 ####[facility] [address] [place], [address] CO2 [Moles/Vol] 25.0 mmol/L Normal 21.0-32.0 [facility] Comment on above: Performed By: #### L 500.3400, L501.2450, L100.0100, L500.2500 ####[facility] [address] [place], [address] Creatinine [Mass/Vol] 0.72 mg/dL Normal 0.55-1.02 [facility] Comment on above: Result Comment: The validity of the calculated GFR GFRAA in patients over70 years has not been determined. Clinical correlation isessential. Performed By: #### L 500.3400, L501.2450, L100.0100, L500.2500 ####[facility] [address] [place], [address] ECRCL 90.98 ml/min Normal [facility] Comment on above: Performed By: #### L 500.3400, L501.2450, L100.0100, L500.2500 ####[facility] [address] [place], [address] EST GFR - AA 106 mL/min Normal >60 [facility] Comment on above: Result Comment: Afri can [facility] GFR Calc Performed By: #### L 500.3400, L501.2450, L100.0100, L500.2500 ####[facility] [address] [place], [address] GAP 6 Normal 5-15 [facility] Comment on above: Performed By: #### L 500.3400, L501.2450, L100.0100, L500.2500 ####[facility] [address] [place], [address] GFR/1.73 sq M.predicted among non-blacks MDRD (S/P/Bld) [Vol rate/Area] 88 mL/min/{1.73_m2} Normal >60 [facility] Comment on above: Result Comment: Non- GFR Calc Performed By: #### L 500.3400, L501.2450, L100.0100, L500.2500 ####[facility] [address] [place], [address] Glucose [Mass/Vol] 178 mg/dL High 74-106 [facility] Comment on above: Result Comment: Fast ing Glucose result greater than or equal to 126 mg/dLsuggests DIABETES MELLITUS per A.D.A. criteria. Performed By: #### L 500.3400, L501.2450, L100.0100, L500.2500 ####[facility] [address] [place], [address] Potassium [Moles/Vol] 3.6 mmol/L Normal 3.5-5.1 [facility] Comment on above: Performed By: #### L 500.3400, L501.2450, L100.0100, L500.2500 ####[facility] [address] [place], [address] Sodium [Moles/Vol] 138 mmol/L Normal 136-145 [facility] Comment on above: Performed By: #### L 500.3400, L501.2450, L100.0100, L500.2500 ####[facility] [address] [place], [address] Urea nitrogen [Mass/Vol] 21 mg/dL High 7-18 [facility] Comment on above: Performed By: #### L 500.3400, L501.2450, L100.0100, L500.2500 ####[facility] [address] [place], [address] Bedside Glucoseon 01-28-2024 FINGERSTICK GLU 106 mg/dL Normal 74-106 [facility] Comment on above: Result Comment: SARA GEMENT OF PATIENT CARE PER NURSING PROTOCOL Performed By: #### L 501.080 ####[facility] [address] [place], [address] FINGERSTICK GLU 106 mg/dL Normal 74-106 [facility] Comment on above: Result Comment: SARA GEMENT OF PATIENT CARE PER NURSING PROTOCOL Performed By: #### L 501.080 ####[facility] [address] [place], [address] FINGERSTICK GLU 106 mg/dL Normal 74-106 [facility] Comment on above: Result Comment: SARA GEMENT OF PATIENT CARE PER NURSING PROTOCOL Performed By: #### L 501.080 ####[facility] [address] [place], [address] FINGERSTICK GLU 141 mg/dL High 74-106 [facility] Comment on above: Result Comment: SARA GEMENT OF PATIENT CARE PER NURSING PROTOCOL Performed By: #### L 501.080 ####[facility] [address] [place], [address] CBC W/Diff, Automatedon 08- Absolute Lymph 2.40 X10 3/uL Normal 0.83-4.51 [facility] Comment on above: Performed By: #### L 500.3400, L501.2450, L100.0100, L500.2500 ####[facility] [address] [place], [address] Absolute Neut 6.8 X10 3/uL Normal 2.0-7.7 [facility] Comment on above: Performed By: #### L 500.3400, L501.2450, L100.0100, L500.2500 ####[facility] [address] [place], [address] Basophils/100 WBC (Bld) 0.7 % Normal 0-1 [facility] Comment on above: Performed By: #### L 500.3400, L501.2450, L100.0100, L500.2500 ####[facility] [address] [place], [address] Eosinophils/100 WBC (Bld) 3.1 % Normal 0-5 [facility] Comment on above: Performed By: #### L 500.3400, L501.2450, L100.0100, L500.2500 ####[facility] [address] [place], [address] Erythrocyte distribution width (RBC) [Ratio] 14.8 % High 11.6-14.6 [facility] Comment on above: Performed By: #### L 500.3400, L501.2450, L100.0100, L500.2500 ####[facility] [address] [place], [address] Hematocrit (Bld) [Volume fraction] 49.3 % High 37-47 [facility] Comment on above: Performed By: #### L 500.3400, L501.2450, L100.0100, L500.2500 ####[facility] [address] [place], [address] Hemoglobin (Bld) [Mass/Vol] 15.8 g/dL High 12.0-15.0 [facility] Comment on above: Performed By: #### L 500.3400, L501.2450, L100.0100, L500.2500 ####[facility] [address] [place], [address] IG% 0.300 Normal 0.0-0.9 [facility] Comment on above: Result Comment: IG% - Immature Granulocytes (promyelocytes, myelocytes andmetamyelocytes) > 1% indicates that a LEFT SHIFT is Present. Performed By: #### L 500.3400, L501.2450, L100.0100, L500.2500 ####[facility] [address] [place], [address] Lymphocytes/100 WBC (Bld) 23.0 % Normal 19-41 [facility] Comment on above: Performed By: #### L 500.3400, L501.2450, L100.0100, L500.2500 ####[facility] [address] [place], [address] MCH (RBC) [Entitic mass] 28.1 pg Normal 27.0-32.0 [facility] Comment on above: Performed By: #### L 500.3400, L501.2450, L100.0100, L500.2500 ####[facility] [address] [place], [address] MCHC (RBC) [Mass/Vol] 32.0 g/dL Normal 32-36 [facility] Comment on above: Performed By: #### L 500.3400, L501.2450, L100.0100, L500.2500 ####[facility] [address] [place], [address] MCV (RBC) [Entitic vol] 87.6 fL Normal 81-99 [facility] Comment on above: Performed By: #### L 500.3400, L501.2450, L100.0100, L500.2500 ####[facility] [address] [place], [address] Monocytes/100 WBC (Bld) 7.5 % Normal 0-10 [facility] Comment on above: Performed By: #### L 500.3400, L501.2450, L100.0100, L500.2500 ####[facility] [address] [place], [address] Neutrophils/100 WBC (Bld) 65.4 % Normal 47-70 [facility] Comment on above: Performed By: #### L 500.3400, L501.2450, L100.0100, L500.2500 ####[facility] [address] [place], [address] Nucleated RBC (Bld) [#/Vol] 0 10*3/uL Normal 0-5 [facility] Comment on above: Performed By: #### L 500.3400, L501.2450, L100.0100, L500.2500 ####[facility] [address] [place], [address] Platelet mean volume (Bld) [Entitic vol] 10.0 fL Normal 6.2-12.0 [facility] Comment on above: Performed By: #### L 500.3400, L501.2450, L100.0100, L500.2500 ####[facility] [address] [place], [address] Platelets (Bld) [#/Vol] 200 10*3/uL Normal 150-450 [facility] Comment on above: Performed By: #### L 500.3400, L501.2450, L100.0100, L500.2500 ####[facility] [address] [place], [address] RBC (Bld) [#/Vol] 5.63 10*6/uL High 4.2-5.4 [facility] Comment on above: Performed By: #### L 500.3400, L501.2450, L100.0100, L500.2500 ####[facility] [address] [place], [address] RDW SD 47.0 fl High 35.1-43.9 [facility] Comment on above: Performed By: #### L 500.3400, L501.2450, L100.0100, L500.2500 ####[facility] [address] [place], [address] WBC (Bld) [#/Vol] 10.4 10*3/uL Normal 4.4-11.0 [facility] Comment on above: Performed By: #### L 500.3400, L501.2450, L100.0100, L500.2500 ####[facility] [address] [place], [address] Emergency Department Summary on 01-28-2024 Emergency Department Summary Normal [facility] H AND P Exam - Hospitaliston 01-28-2024 H&P Exam - Hospitalist Normal [facility] Lipaseon 01-28-2024 Lipase [Catalytic activity/Vol] U/L High 13-75 [facility] Comment on above: Result Comment: Buck truong note:LIPASE revised reference range effective 22.New Lipase methodology. Expected to produce lower valuesthan the previous assay method.NEW Reference Range: 13 - 75 U/L Performed By: #### L 500.3400, L501.2450, L100.0100, L500.2500 ####[facility] [address] [place], [address] Liver Profileon 01-28-2024 Albumin [Mass/Vol] 3.5 g/dL Normal 3.2-5.0 [facility] Comment on above: Performed By: #### L 500.3400, L501.2450, L100.0100, L500.2500 ####[facility] [address] [place], [address] ALK P 99 U/L Normal 45-117 [facility] Comment on above: Performed By: #### L 500.3400, L501.2450, L100.0100, L500.2500 ####[facility] [address] [place], [address] ALT [Catalytic activity/Vol] 15 U/L Normal 13-56 [facility] Comment on above: Performed By: #### L 500.3400, L501.2450, L100.0100, L500.2500 ####[facility] [address] [place], [address] AST [Catalytic activity/Vol] 12 U/L Low 15-37 [facility] Comment on above: Performed By: #### L 500.3400, L501.2450, L100.0100, L500.2500 ####[facility] [address] [place], [address] Bilirubin [Mass/Vol] 0.40 mg/dL Normal 0.20-1.00 [facility] Comment on above: Result Comment: For patients on eltrombopag therapy, use of Dimension [place] TBIL is not recommended. Performed By: #### L 500.3400, L501.2450, L100.0100, L500.2500 ####[facility] [address] [place], [address] Bilirubin.direct [Mass/Vol] 0.11 mg/dL Normal 0.00-0.30 [facility] Comment on above: Performed By: #### L 500.3400, L501.2450, L100.0100, L500.2500 ####[facility] [address] [place], [address] Globulin (S) [Mass/Vol] 4.4 g/dL High 2.2-4.2 [facility] Comment on above: Performed By: #### L 500.3400, L501.2450, L100.0100, L500.2500 ####[facility] [address] [place], [address] T PROT 7.9 g/dL Normal 6.4-8.2 [facility] Comment on above: Performed By: #### L 500.3400, L501.2450, L100.0100, L500.2500 ####[facility] [address] [place], [address] MR/CON.PCM.GIon 01-28-2024 MR/CON.PCM.GI Normal [facility] MRCP Abdomen without Contras ton 01-28-2024 MRCP Abdomen without Contrast Normal [facility] CBC W/Diff, Automatedon 06- Absolute Lymph 2.43 X10 3/uL Normal 0.83-4.51 [facility] Comment on above: Performed By: #### L 500.4050, L100.0100 ####[facility] [address] [place], [address] Absolute Neut 4.5 X10 3/uL Normal 2.0-7.7 [facility] Comment on above: Performed By: #### L 500.4050, L100.0100 ####[facility] [address] [place], [address] Basophils/100 WBC (Bld) 0.9 % Normal 0-1 [facility] Comment on above: Performed By: #### L 500.4050, L100.0100 ####[facility] [address] [place], [address] Eosinophils/100 WBC (Bld) 4.4 % Normal 0-5 [facility] Comment on above: Performed By: #### L 500.4050, L100.0100 ####[facility] [address] [place], [address] Erythrocyte distribution width (RBC) [Ratio] 14.8 % High 11.6-14.6 [facility] Comment on above: Performed By: #### L 500.4050, L100.0100 ####[facility] [address] [place], [address] Hematocrit (Bld) [Volume fraction] 49.1 % High 37-47 [facility] Comment on above: Performed By: #### L 500.4050, L100.0100 ####[facility] [address] [place], [address] Hemoglobin (Bld) [Mass/Vol] 15.7 g/dL High 12.0-15.0 [facility] Comment on above: Performed By: #### L 500.4050, L100.0100 ####[facility] [address] [place], [address] IG% 0.400 Normal 0.0-0.9 [facility] Comment on above: Result Comment: IG% - Immature Granulocytes (promyelocytes, myelocytes andmetamyelocytes) > 1% indicates that a LEFT SHIFT is Present. Performed By: #### L 500.4050, L100.0100 ####[facility] [address] [place], [address] Lymphocytes/100 WBC (Bld) 30.9 % Normal 19-41 [facility] Comment on above: Performed By: #### L 500.4050, L100.0100 ####[facility] [address] [place], [address] MCH (RBC) [Entitic mass] 28.3 pg Normal 27.0-32.0 [facility] Comment on above: Performed By: #### L 500.4050, L100.0100 ####[facility] [address] [place], [address] MCHC (RBC) [Mass/Vol] 32.0 g/dL Normal 32-36 [facility] Comment on above: Performed By: #### L 500.4050, L100.0100 ####[facility] [address] [place], [address] MCV (RBC) [Entitic vol] 88.6 fL Normal 81-99 [facility] Comment on above: Performed By: #### L 500.4050, L100.0100 ####[facility] [address] [place], [address] Monocytes/100 WBC (Bld) 6.7 % Normal 0-10 [facility] Comment on above: Performed By: #### L 500.4050, L100.0100 ####[facility] [address] [place], [address] Neutrophils/100 WBC (Bld) 56.7 % Normal 47-70 [facility] Comment on above: Performed By: #### L 500.4050, L100.0100 ####[facility] [address] [place], [address] Nucleated RBC (Bld) [#/Vol] 0 10*3/uL Normal 0-5 [facility] Comment on above: Performed By: #### L 500.4050, L100.0100 ####[facility] [address] [place], [address] Platelet mean volume (Bld) [Entitic vol] 10.5 fL Normal 6.2-12.0 [facility] Comment on above: Performed By: #### L 500.4050, L100.0100 ####[facility] [address] [place], [address] Platelets (Bld) [#/Vol] 219 10*3/uL Normal 150-450 [facility] Comment on above: Performed By: #### L 500.4050, L100.0100 ####[facility] [address] [place], [address] RBC (Bld) [#/Vol] 5.54 10*6/uL High 4.2-5.4 [facility] Comment on above: Performed By: #### L 500.4050, L100.0100 ####[facility] [address] [place], [address] RDW SD 48.4 fl High 35.1-43.9 [facility] Comment on above: Performed By: #### L 500.4050, L100.0100 ####[facility] [address] [place], [address] WBC (Bld) [#/Vol] 7.9 10*3/uL Normal 4.4-11.0 [facility] Comment on above: Performed By: #### L 500.4050, L100.0100 ####[facility] [address] [place], [address] Comprehensive Metabolic Prof [facility] 12-16-2023 Albumin [Mass/Vol] 3.5 g/dL Normal 3.2-5.0 [facility] Comment on above: Performed By: #### L 500.4050, L100.0100 ####[facility] [address] [place], [address] Albumin/Globulin [Mass ratio] 0.8 {ratio} Low 0.9-2.4 [facility] Comment on above: Performed By: #### L 500.4050, L100.0100 ####[facility] [address] [place], [address] ALK P 102 U/L Normal 45-117 [facility] Comment on above: Performed By: #### L 500.4050, L100.0100 ####[facility] [address] [place], [address] ALT [Catalytic activity/Vol] 17 U/L Normal 13-56 [facility] Comment on above: Performed By: #### L 500.4050, L100.0100 ####[facility] [address] [place], [address] AST [Catalytic activity/Vol] 13 U/L Low 15-37 [facility] Comment on above: Performed By: #### L 500.4050, L100.0100 ####[facility] [address] [place], [address] Bilirubin [Mass/Vol] 0.40 mg/dL Normal 0.20-1.00 [facility] Comment on above: Result Comment: For patients on eltrombopag therapy, use of Dimension [place] TBIL is not recommended. Performed By: #### L 500.4050, L100.0100 ####[facility] [address] [place], [address] BUN/CRE 24.9 RATIO High 10-20 [facility] Comment on above: Performed By: #### L 500.4050, L100.0100 ####[facility] [address] [place], [address] CA,Total 9.8 mg/dL Normal 8.5-10.1 [facility] Comment on above: Performed By: #### L 500.4050, L100.0100 ####[facility] [address] [place], [address] Chloride [Moles/Vol] 108 mmol/L High 98-107 [facility] Comment on above: Performed By: #### L 500.4050, L100.0100 ####[facility] [address] [place], [address] CO2 [Moles/Vol] 25.0 mmol/L Normal 21.0-32.0 [facility] Comment on above: Performed By: #### L 500.4050, L100.0100 ####[facility] [address] [place], [address] Creatinine [Mass/Vol] 0.80 mg/dL Normal 0.55-1.02 [facility] Comment on above: Result Comment: The validity of the calculated GFR GFRAA in patients over70 years has not been determined. Clinical correlation isessential. Performed By: #### L 500.4050, L100.0100 ####[facility] [address] [place], [address] EST GFR - AA 94 mL/min Normal >60 [facility] Comment on above: Result Comment: Afri can [facility] GFR Calc Performed By: #### L 500.4050, L100.0100 ####[facility] [address] [place], [address] GAP 5 Normal 5-15 [facility] Comment on above: Performed By: #### L 500.4050, L100.0100 ####[facility] [address] [place], [address] GFR/1.73 sq M.predicted among non-blacks MDRD (S/P/Bld) [Vol rate/Area] 77 mL/min/{1.73_m2} Normal >60 [facility] Comment on above: Result Comment: Non- GFR Calc Performed By: #### L 500.4050, L100.0100 ####[facility] [address] [place], [address] Globulin (S) [Mass/Vol] 4.4 g/dL High 2.2-4.2 [facility] Comment on above: Performed By: #### L 500.4050, L100.0100 ####[facility] [address] [place], [address] Glucose [Mass/Vol] 135 mg/dL High 74-106 [facility] Comment on above: Result Comment: Fast ing Glucose result greater than or equal to 126 mg/dLsuggests DIABETES MELLITUS per A.D.A. criteria. Performed By: #### L 500.4050, L100.0100 ####[facility] [id number] [place], [address] Potassium [Moles/Vol] 4.1 mmol/L Normal 3.5-5.1 [facility] Comment on above: Performed By: #### L [id number], L100.0100 ####[facility] [id number] [place], [address] Sodium [Moles/Vol] 138 mmol/L Normal 136-145 [facility] Comment on above: Performed By: #### L [id number], L100.0100 ####[facility] [id number] [place], [address] T PROT 7.9 g/dL Normal 6.4-8.2 [facility] Comment on above: Performed By: #### L [id number], L100.0100 ####[facility] [id number] [place], [address] Urea nitrogen [Mass/Vol] 20 mg/dL High 7-18 [facility] Comment on above: Performed By: #### L [id number], L100.0100 ####[facility] [id number] [place], [address] Absolute lymphocyte countOrd ered By: Diana Ramos on 09-23-2023 Lymphocytes Auto (Unsp spec) [#/Vol] 1.94 10*3/uL 0.83-4.51 [facility] Automated lymphocyte count a s percentage of total leukocytesOrdered By: Diana Ramos on 09-23-2023 Lymphocytes/100 WBC Auto (Unsp spec) 27.4 % 19-41 [facility] Basophil percentageOrdered B y: Diana Ramos on 09-23-2023 Basophils/100 WBC (Bld) 0.7 % 0-1 [facility] Bilirubin [Mass/Vol] 0.40 mg/dL 0.20-1.00 [facility] Comment on above: For patients on eltr ombopag therapy, use of Dimension [place] TBIL is not recommended. Chloride [Moles/Vol] 108 mmol/L 98-107 [facility] Eosinophils/100 WBC (Bld) 4.8 % 0-5 [facility] Glucose [Mass/Vol] 144 mg/dL 74-106 [facility] Comment on above: Fasting Glucose resu lt greater than or equal to 126 mg/dL suggests DIABETES MELLITUS per A.D.A. criteria. Hemoglobin (Bld) [Mass/Vol] 15.1 g/dL 12.0-15.0 [facility] Monocytes/100 WBC (Bld) 7.9 % 0-10 [facility] Neutrophils (Bld) [#/Vol] 4.2 10*3/uL 2.0-7.7 [facility] Neutrophils/100 WBC (Bld) 58.9 % 47-70 [facility] Potassium [Moles/Vol] 4.1 mmol/L 3.5-5.1 [facility] Protein [Mass/Vol] 7.8 g/dL 6.4-8.2 [facility] Sodium [Moles/Vol] 139 mmol/L 136-145 [facility] WBC (Bld) [#/Vol] 7.1 10*3/uL 4.4-11.0 [facility] Determination of erythrocyte mean corpuscular volume (MCV)Ordered By: Diana Ramos on 09-23-2023 MCV (RBC) [Entitic vol] 90.6 fL 81-99 [facility] Erythrocyte distribution wid th ratioOrdered By: [facility] Rachel on 09-23-2023 Erythrocyte distribution width (RBC) [Ratio] 13.6 % 11.6-14.6 [facility] Erythrocyte distribution wid th standard deviationOrdered By: [facility] Rachel on 09-23-2023 Erythrocyte distribution width (RBC) [Entitic vol] 45.8 fL 35.1-43.9 [facility] Hematocrit Auto (Bld) [Volum e fraction]Ordered By: Diana Ramos on 09-23-2023 Hematocrit (Bld) [Volume fraction] 47.2 % 37-47 [facility] Immature granulocytes/100 WB C Auto (Bld)Ordered By: Dianaprasanna Ramos on 09-23-2023 Immature granulocytes/100 WBC (Bld) 0.300 % 0.0-0.9 [facility] Comment on above: IG% - Immature Granu locytes (promyelocytes, myelocytes and metamyelocytes) > 1% indicates that a LEFT SHIFT is Present. Laboratory - Chemistry and C hemistry - challengeOrdered By: Diana Ramos on 09-23-2023 Albumin/Globulin [Mass ratio] 0.9 {ratio} 0.9-2.4 [facility] ALP [Catalytic activity/Vol] 95 U/L 45-117 [facility] ALT [Catalytic activity/Vol] 16 U/L 13-56 [facility] CO2 [Moles/Vol] 27.0 mmol/L 21.0-32.0 [facility] Globulin (S) [Mass/Vol] 4.2 g/dL 2.2-4.2 [facility] Urea nitrogen/Creatinine [Mass ratio] 24.0 mg/mg 10-20 [facility] Laboratory - Hematology and Cell countsOrdered By: Diana Ramos on 09-23-2023 MCH (RBC) [Entitic mass] 29.0 pg 27.0-32.0 [facility] MCHC (RBC) [Mass/Vol] 32.0 g/dL 32-36 [facility] Nucleated RBC/100 WBC (Bld) [Ratio] 0 % 0-5 [facility] Platelet mean volume (Bld) [Entitic vol] 10.4 fL 6.2-12.0 [facility] Platelets (Bld) [#/Vol] 189 10*3/uL 150-450 [facility] No Panel InformationOrdered By: Diana Ramos on 09-23-2023 Estimated GFR (MDRD) Amer 108 mL/min >60 [facility] Comment on above: GFR Calc Estimated GFR (MDRD) Non-Af Amer 90 mL/min >60 [facility] Comment on above: Non- GFR Calc RBC Auto (Bld) [#/Vol]Ordere d By: Diana Ramos on 09-23-2023 RBC (Bld) [#/Vol] 5.21 10*6/uL 4.2-5.4 [facility] Serum or plasma calcium jasiel urement (mass/volume)Ordered By: Diana Ramos on 09-23-2023 Calcium [Mass/Vol] 9.7 mg/dL 8.5-10.1 [facility] Serum or plasma creatinine m easurement (mass/volume)Ordered By: Diana Ramos on 09-23-2023 Creatinine [Mass/Vol] 0.71 mg/dL 0.55-1.02 [facility] Comment on above: The validity of the calculated GFR & GFRAA in patients over 70 years has not been determined. Clinical correlation is essential. Serum or plasma urea nitroge n measurement (mass/volume)Ordered By: Diana Ramos on 09-23-2023 Urea nitrogen [Mass/Vol] 17 mg/dL 7-18 [facility] Thin prep Papanicolaou smear with manual screeningOrdered By: Diana Ramos on 09-23-2023 Thin prep Papanicolaou smear with manual screening 3.6 g/dL 3.2-5.0 [facility] Thin prep Papanicolaou smear with manual screening 11 U/L 15-37 [facility] Thin prep Papanicolaou smear with manual screening 4 5-15 [facility] Absolute lymphocyte countOrd ered By: Diana Raoms on 06-30-2023 Lymphocytes Auto (Unsp spec) [#/Vol] 1.96 10*3/uL 0.83-4.51 [facility] Basophil percentageOrdered B y: Diana Ramos on 06-30-2023 Basophils/100 WBC (Bld) 0.6 % 0-1 [facility] Bilirubin [Mass/Vol] 0.40 mg/dL 0.20-1.00 [facility] Comment on above: For patients on eltr ombopag therapy, use of Dimension [place] TBIL is not recommended. Chloride [Moles/Vol] 105 mmol/L 98-107 [facility] Eosinophils/100 WBC (Bld) 2.7 % 0-5 [facility] Glucose [Mass/Vol] 111 mg/dL 74-106 [facility] Comment on above: Fasting Glucose resu lt from 100 to 125 mg/dL suggests IMPAIRED HOMEOSTASIS per A.D.A. criteria. Neutrophils (Bld) [#/Vol] 5.3 10*3/uL 2.0-7.7 [facility] Neutrophils/100 WBC (Bld) 64.8 % 47-70 [facility] Potassium [Moles/Vol] 4.0 mmol/L 3.5-5.1 [facility] Protein [Mass/Vol] 7.7 g/dL 6.4-8.2 [facility] Sodium [Moles/Vol] 138 mmol/L 136-145 [facility] WBC (Bld) [#/Vol] 8.2 10*3/uL 4.4-11.0 [facility] Blood erythrocytes count (nu mber/volume)Ordered By: Diana Ramos on 06-30-2023 RBC (Bld) [#/Vol] 5.06 10*6/uL 4.2-5.4 [facility] Blood hemoglobin measurement (mass/volume)Ordered By: Diana Ramos on 06-30-2023 Hemoglobin (Bld) [Mass/Vol] 14.3 g/dL 12.0-15.0 [facility] Blood lymphocytes/100 leukoc ytesOrdered By: Dianaprasanna Ramos on 06-30-2023 Lymphocytes/100 WBC (Bld) 24.0 % 19-41 [facility] Blood monocytes/100 leukocyt esOrdered By: Dianaprasanna Ramos on 06-30-2023 Monocytes/100 WBC (Bld) 7.8 % 0-10 [facility] Blood platelet mean volumeOr dered By: Diana Ramos on 06-30-2023 Platelet mean volume (Bld) [Entitic vol] 10.4 fL 6.2-12.0 [facility] Determination of erythrocyte mean corpuscular volume (MCV)Ordered By: Diana Ramos on 06-30-2023 MCV (RBC) [Entitic vol] 89.9 fL 81-99 [facility] Hematocrit Auto (Bld) [Volum e fraction]Ordered By: Diana Ramos on 06-30-2023 Hematocrit (Bld) [Volume fraction] 45.5 % 37-47 [facility] Laboratory - Chemistry and C hemistry - challengeOrdered By: Diana Ramos on 06-30-2023 ALP [Catalytic activity/Vol] 109 U/L 45-117 [facility] ALT [Catalytic activity/Vol] 27 U/L 13-56 [facility] CO2 [Moles/Vol] 24.0 mmol/L 21.0-32.0 [facility] Globulin (S) [Mass/Vol] 4.0 g/dL 2.2-4.2 [facility] Urea nitrogen/Creatinine [Mass ratio] 29.4 mg/mg 10-20 [facility] Laboratory - Hematology and Cell countsOrdered By: Diana Ramos on 06-30-2023 Erythrocyte distribution width (RBC) [Entitic vol] 49.1 fL 35.1-43.9 [facility] Erythrocyte distribution width (RBC) [Ratio] 14.9 % 11.6-14.6 [facility] Immature granulocytes/100 WBC (Bld) 0.100 % 0.0-0.9 [facility] Comment on above: IG% - Immature Granu locytes (promyelocytes, myelocytes and metamyelocytes) > 1% indicates that a LEFT SHIFT is Present. MCH (RBC) [Entitic mass] 28.3 pg 27.0-32.0 [facility] Nucleated RBC/100 WBC (Bld) [Ratio] 0 % 0-5 [facility] MCHC Auto (RBC) [Mass/Vol]Or dered By: Diana Ramos on 06-30-2023 MCHC (RBC) [Mass/Vol] 31.4 g/dL 32-36 [facility] No Panel InformationOrdered By: Diana Ramos on 06-30-2023 Estimated GFR (MDRD) Amer 84 mL/min >60 [facility] Comment on above: GFR Calc Estimated GFR (MDRD) Non-Af Amer 69 mL/min >60 [facility] Comment on above: Non- GFR Calc Platelets bldOrdered By: Katarina Ramos on 06-30-2023 Platelets (Bld) [#/Vol] 209 10*3/uL 150-450 [facility] Serum or plasma albumin jasiel urement (mass/volume)Ordered By: Diana Ramos on 06-30-2023 Albumin [Mass/Vol] 3.7 g/dL 3.2-5.0 [facility] Serum or plasma albumin/glob ulin mass ratioOrdered By: Diana Ramos on 06-30-2023 Albumin/Globulin [Mass ratio] 0.9 {ratio} 0.9-2.4 [facility] Serum or plasma calcium jasiel urement (mass/volume)Ordered By: Diana Ramos on 06-30-2023 Calcium [Mass/Vol] 9.0 mg/dL 8.5-10.1 [facility] Serum or plasma creatinine m easurement (mass/volume)Ordered By: Diana Ramos on 06-30-2023 Creatinine [Mass/Vol] 0.88 mg/dL 0.55-1.02 [facility] Comment on above: The validity of the calculated GFR & GFRAA in patients over 70 years has not been determined. Clinical correlation is essential. Serum or plasma urea nitroge n measurement (mass/volume)Ordered By: Diana Ramos on 06-30-2023 Urea nitrogen [Mass/Vol] 26 mg/dL 7-18 [facility] Thin prep Papanicolaou smear with manual screeningOrdered By: Diana Ramos on 06-30-2023 Thin prep Papanicolaou smear with manual screening 20 U/L 15-37 [facility] Thin prep Papanicolaou smear with manual screening 9 5-15 [facility] Laboratory - Chemistry and C hemistry - challengeOrdered By: Nehemias Arizmendi on 05-17-2023 Free T4 [Mass/Vol] 1.43 ng/dL 0.76-1.46 [facility] No Panel InformationOrdered By: Nehemias Arizmendi on 05-17-2023 Free Triiodothyronine (T3) pg/dL 1.9 pg/mL 2.18-3.98 [facility] Thyroid Stimulating Hormone (TSH) 1.40 uIU/mL 0.358-3.74 [facility] Absolute lymphocyte countOrd ered By: Nehemias Arizmendi on 03-30-2023 Lymphocytes Auto (Unsp spec) [#/Vol] 2.30 10*3/uL 0.83-4.51 [facility] Basophil percentageOrdered B y: Nehemias Arizmendi on 03-30-2023 Basophils/100 WBC (Bld) 0.9 % 0-1 [facility] Bilirubin [Mass/Vol] 0.30 mg/dL 0.20-1.00 [facility] Comment on above: For patients on eltr ombopag therapy, use of Dimension [place] TBIL is not recommended. Chloride [Moles/Vol] 108 mmol/L 98-107 [facility] Eosinophils/100 WBC (Bld) 2.8 % 0-5 [facility] Glucose [Mass/Vol] 122 mg/dL 74-106 [facility] Comment on above: Fasting Glucose resu lt from 100 to 125 mg/dL suggests IMPAIRED HOMEOSTASIS per A.D.A. criteria. Neutrophils (Bld) [#/Vol] 4.7 10*3/uL 2.0-7.7 [facility] Neutrophils/100 WBC (Bld) 59.7 % 47-70 [facility] Potassium [Moles/Vol] 4.3 mmol/L 3.5-5.1 [facility] Protein [Mass/Vol] 7.7 g/dL 6.4-8.2 [facility] Sodium [Moles/Vol] 140 mmol/L 136-145 [facility] WBC (Bld) [#/Vol] 7.9 10*3/uL 4.4-11.0 [facility] Blood erythrocytes count (nu mber/volume)Ordered By: Nehemias Arizmendi on 03-30-2023 RBC (Bld) [#/Vol] 4.98 10*6/uL 4.2-5.4 [facility] Blood hemoglobin measurement (mass/volume)Ordered By: Nehemias Arizmendi on 03-30-2023 Hemoglobin (Bld) [Mass/Vol] 13.7 g/dL 12.0-15.0 [facility] Blood lymphocytes/100 leukoc ytesOrdered By: Nehemias Arizmendi on 03-30-2023 Lymphocytes/100 WBC (Bld) 29.1 % 19-41 [facility] Blood monocytes/100 leukocyt esOrdered By: Nehemias Arizmendi on 03-30-2023 Monocytes/100 WBC (Bld) 7.1 % 0-10 [facility] Blood platelet mean volumeOr dered By: Nehemias Arizmendi on 03-30-2023 Platelet mean volume (Bld) [Entitic vol] 10.4 fL 6.2-12.0 [facility] Determination of erythrocyte mean corpuscular volume (MCV)Ordered By: Nehemias Arizmendi on 03-30-2023 MCV (RBC) [Entitic vol] 88.2 fL 81-99 [facility] Hematocrit Auto (Bld) [Volum e fraction]Ordered By: Nehemias Arizmendi on 03-30-2023 Hematocrit (Bld) [Volume fraction] 43.9 % 37-47 [facility] Laboratory - Chemistry and C hemistry - challengeOrdered By: Nehemias Arizmendi on 03-30-2023 ALP [Catalytic activity/Vol] 93 U/L 45-117 [facility] ALT [Catalytic activity/Vol] 15 U/L 13-56 [facility] CO2 [Moles/Vol] 25.0 mmol/L 21.0-32.0 [facility] Globulin (S) [Mass/Vol] 4.3 g/dL 2.2-4.2 [facility] Urea nitrogen/Creatinine [Mass ratio] 25.7 mg/mg 10-20 [facility] Laboratory - Hematology and Cell countsOrdered By: Nehemias Arizmendi on 03-30-2023 Erythrocyte distribution width (RBC) [Entitic vol] 49.9 fL 35.1-43.9 [facility] Erythrocyte distribution width (RBC) [Ratio] 15.6 % 11.6-14.6 [facility] Immature granulocytes/100 WBC (Bld) 0.400 % 0.0-0.9 [facility] Comment on above: IG% - Immature Granu locytes (promyelocytes, myelocytes and metamyelocytes) > 1% indicates that a LEFT SHIFT is Present. MCH (RBC) [Entitic mass] 27.5 pg 27.0-32.0 [facility] Nucleated RBC/100 WBC (Bld) [Ratio] 0 % 0-5 [facility] MCHC Auto (RBC) [Mass/Vol]Or dered By: Nehemias Arizmendi on 03-30-2023 MCHC (RBC) [Mass/Vol] 31.2 g/dL 32-36 [facility] No Panel InformationOrdered By: Nehemias Arizmendi on 03-30-2023 Estimated GFR (MDRD) Amer 87 mL/min >60 [facility] Comment on above: GFR Calc Estimated GFR (MDRD) Non-Af Amer 72 mL/min >60 [facility] Comment on above: Non- GFR Calc Platelets bldOrdered By: Norma Arizmendi on 03-30-2023 Platelets (Bld) [#/Vol] 248 10*3/uL 150-450 [facility] Serum or plasma albumin jasiel urement (mass/volume)Ordered By: Nehemias Arizmendi on 03-30-2023 Albumin [Mass/Vol] 3.4 g/dL 3.2-5.0 [facility] Serum or plasma albumin/glob ulin mass ratioOrdered By: Nehemias Arizmendi on 03-30-2023 Albumin/Globulin [Mass ratio] 0.8 {ratio} 0.9-2.4 [facility] Serum or plasma calcium jasiel urement (mass/volume)Ordered By: Nehemias Arizmendi on 03-30-2023 Calcium [Mass/Vol] 9.2 mg/dL 8.5-10.1 [facility] Serum or plasma creatinine m easurement (mass/volume)Ordered By: Nehemias Arizmendi on 03-30-2023 Creatinine [Mass/Vol] 0.86 mg/dL 0.55-1.02 [facility] Comment on above: The validity of the calculated GFR & GFRAA in patients over 70 years has not been determined. Clinical correlation is essential. Serum or plasma urea nitroge n measurement (mass/volume)Ordered By: Nehemias Arizmendi on 03-30-2023 Urea nitrogen [Mass/Vol] 22 mg/dL 7-18 [facility] Thin prep Papanicolaou smear with manual screeningOrdered By: Nehemias Arizmendi on 03-30-2023 Thin prep Papanicolaou smear with manual screening 12 U/L 15-37 [facility] Thin prep Papanicolaou smear with manual screening 7 5-15 [facility] Basophil percentageOrdered B y: Nehemias Arizmendi on 01-11-2023 Chloride [Moles/Vol] 104 mmol/L 98-107 [facility] Glucose [Mass/Vol] 204 mg/dL 74-106 [facility] Comment on above: Glucose result great er than or equal to 200 mg/dLsuggests DIABETES MELLITUS per A.D.A. criteria. Potassium [Moles/Vol] 3.8 mmol/L 3.5-5.1 [facility] Sodium [Moles/Vol] 140 mmol/L 136-145 [facility] Laboratory - Chemistry and C hemistry - challengeOrdered By: Nehemias Arizmendi on 01-11-2023 CO2 [Moles/Vol] 32.0 mmol/L 21.0-32.0 [facility] Urea nitrogen/Creatinine [Mass ratio] 42.5 mg/mg 10-20 [facility] No Panel InformationOrdered By: Nehemias Arizmendi on 01-11-2023 Estimated GFR (MDRD) Amer 105 mL/min >60 [facility] Comment on above: GFR Calc Estimated GFR (MDRD) Non-Af Amer 87 mL/min >60 [facility] Comment on above: Non- GFR Calc Serum or plasma calcium jasiel urement (mass/volume)Ordered By: Nehemias Arizmendi on 01-11-2023 Calcium [Mass/Vol] 9.3 mg/dL 8.5-10.1 [facility] Serum or plasma creatinine m easurement (mass/volume)Ordered By: Nehemias Arizmendi on 01-11-2023 Creatinine [Mass/Vol] 0.73 mg/dL 0.55-1.02 [facility] Comment on above: The validity of the calculated GFR & GFRAA in patients over 70 years has not been determined. Clinical correlation is essential. Serum or plasma urea nitroge n measurement (mass/volume)Ordered By: Nehemias Arizmendi on 01-11-2023 Urea nitrogen [Mass/Vol] 31 mg/dL 01-12 [facility] Thin prep Papanicolaou smear with manual screeningOrdered By: Nehemias Arizmendi on 01-11-2023 Thin prep Papanicolaou smear with manual screening 11-09 [facility] .Auto Diffon 01-09-2023 Basophil, Absolute 0.0 10 3/mcL Normal 0.0-0.3 [facility] ([place]) Comment on above: Performed By: #### L IPID, GFR, PBNP, ADIFF, CBC, ANEU, BMP, MG #### [address] [address] Basophils/100 WBC (Bld) 0.1 % Normal 0.0-2.5 [facility] ([place]) Comment on above: Performed By: #### L IPID, GFR, PBNP, ADIFF, CBC, ANEU, BMP, MG #### [address] [address] Eosinophil, Absolute 0.0 10 3/mcL Normal 0.0-0.7 [facility] ([place]) Comment on above: Performed By: #### L IPID, GFR, PBNP, ADIFF, CBC, ANEU, BMP, MG #### [address] [address] Eosinophils/100 WBC (Bld) 0.0 % Normal 0.0-6.0 [facility] ([place]) Comment on above: Performed By: #### L IPID, GFR, PBNP, ADIFF, CBC, ANEU, BMP, MG #### [address] [address] Lymphocyte, Absolute 0.5 10 3/mcL Low 0.9-4.3 [facility] ([place]) Comment on above: Performed By: #### L IPID, GFR, PBNP, ADIFF, CBC, ANEU, BMP, MG #### [address] [address] Lymphocytes/100 WBC (Bld) 6.1 % Low 20.0-40.0 [facility] ([place]) Comment on above: Performed By: #### L IPID, GFR, PBNP, ADIFF, CBC, ANEU, BMP, MG #### [address] [address] Monocyte, Absolute 0.4 10 3/mcL Normal 0.1-1.4 [facility] ([place]) Comment on above: Performed By: #### L IPID, GFR, PBNP, ADIFF, CBC, ANEU, BMP, MG #### [address] [address] Monocytes/100 WBC (Bld) 4.7 % Normal 2.0-13.0 [facility] ([place]) Comment on above: Performed By: #### L IPID, GFR, PBNP, ADIFF, CBC, ANEU, BMP, MG #### [address] [address] Neutrophils/100 WBC (Bld) 89.1 % High 50.0-75.0 [facility] ([place]) Comment on above: Performed By: #### L IPID, GFR, PBNP, ADIFF, CBC, ANEU, BMP, MG #### [address] [address] .GFRon 01-09-2023 GFR Non- >60 Normal [facility] ([place]) Comment on above: Result Comment: GFR Population mean for , Non- Americans Ages 20-29 = 116 mL/min/1.73 sq.m. Ages 30-39 = 107 mL/min/1.73 sq.m. Ages 40-49 = 99 mL/min/1.73 sq.m. Ages 50-59 = 93 mL/min/1.73 sq.m. Ages 60-69 = 85 mL/min/1.73 sq.m. Ages 70+ = 75 mL/min/1.73 sq.m. Chronic Kidney Disease: Less than 60 mL/min/1.73 square meters End Stage Renal Disease: Less than 15 mL/min/1.73 square meters Performed By: #### L IPID, GFR, PBNP, ADIFF, CBC, ANEU, BMP, MG #### [address] [address] GFR >60 Normal [facility] ([place]) Comment on above: Result Comment: GFR Population mean for , Non- Americans Ages 20-29 = 116 mL/min/1.73 sq.m. Ages 30-39 = 107 mL/min/1.73 sq.m. Ages 40-49 = 99 mL/min/1.73 sq.m. Ages 50-59 = 93 mL/min/1.73 sq.m. Ages 60-69 = 85 mL/min/1.73 sq.m. Ages 70+ = 75 mL/min/1.73 sq.m. Chronic Kidney Disease: Less than 60 mL/min/1.73 square meters End Stage Renal Disease: Less than 15 mL/min/1.73 square meters Performed By: #### L IPID, GFR, PBNP, ADIFF, CBC, ANEU, BMP, MG #### [address] [address] .NEUABSon 01-09-2023 Neutrophil, Absolute 7.8 10 3/mcL Normal 2.3-8.1 [facility] ([place]) Comment on above: Performed By: #### L IPID, GFR, PBNP, ADIFF, CBC, ANEU, BMP, MG #### [address] [address] BMPon 01-09-2023 BUN/Creatinine Ratio 53.7 ratio High 10.0-22.0 [facility] ([place]) Comment on above: Performed By: #### L IPID, GFR, PBNP, ADIFF, CBC, ANEU, BMP, MG #### [address] [address] Calcium [Mass/Vol] 8.5 mg/dL Low 8.7-10.4 [facility] ([place]) Comment on above: Performed By: #### L IPID, GFR, PBNP, ADIFF, CBC, ANEU, BMP, MG #### [address] [address] Chloride [Moles/Vol] 104 mmol/L Normal 98-110 [facility] ([place]) Comment on above: Performed By: #### L IPID, GFR, PBNP, ADIFF, CBC, ANEU, BMP, MG #### [address] [address] CO2 [Moles/Vol] 34 mmol/L High 22-32 [facility] ([place]) Comment on above: Performed By: #### L IPID, GFR, PBNP, ADIFF, CBC, ANEU, BMP, MG #### [address] [address] Creatinine [Mass/Vol] 0.41 mg/dL Low 0.50-1.20 [facility] ([place]) Comment on above: Performed By: #### L IPID, GFR, PBNP, ADIFF, CBC, ANEU, BMP, MG #### [address] [address] Electrolyte Balance 4.0 mEq/L Normal 4.0-15.0 [facility] ([place]) Comment on above: Performed By: #### L IPID, GFR, PBNP, ADIFF, CBC, ANEU, BMP, MG #### [address] [address] Glucose [Mass/Vol] 226 mg/dL High 70-110 [facility] ([place]) Comment on above: Performed By: #### L IPID, GFR, PBNP, ADIFF, CBC, ANEU, BMP, MG #### [place] [id number] Potassium [Moles/Vol] 4.5 mmol/L Normal 3.5-5.0 [facility] ([place]) Comment on above: Performed By: #### L IPID, GFR, PBNP, ADIFF, CBC, ANEU, BMP, MG #### [place] [address] Sodium [Moles/Vol] 142 mmol/L Normal 136-145 [facility] ([place]) Comment on above: Performed By: #### L IPID, GFR, PBNP, ADIFF, CBC, ANEU, BMP, MG #### [place] [address] Urea nitrogen [Mass/Vol] 22.0 mg/dL Normal 8.0-22.0 [facility] ([place]) Comment on above: Performed By: #### L IPID, GFR, PBNP, ADIFF, CBC, ANEU, BMP, MG #### [place] [address] CBCon 01-09-2023 Erythrocyte distribution width (RBC) [Ratio] 14.3 % Normal 11.5-15.5 [facility] ([place]) Comment on above: Performed By: #### B MP, ANEU, ADIFF, MG, PHOS, CBC, GFR #### [place] [address] Hematocrit (Bld) [Volume fraction] 34.4 % Normal 34.0-46.0 [facility] ([place]) Comment on above: Performed By: #### B MP, ANEU, ADIFF, MG, PHOS, CBC, GFR #### [place] [address] Hgb 11.4 G/dL Low 12.0-16.0 [facility] ([place]) Comment on above: Performed By: #### B MP, ANEU, ADIFF, MG, PHOS, CBC, GFR #### [place] [address] MCH (RBC) [Entitic mass] 28.6 pg Normal 27.0-33.0 [facility] ([place]) Comment on above: Performed By: #### B MP, ANEU, ADIFF, MG, PHOS, CBC, GFR #### [place] [address] MCHC 33.1 G/dL Normal 32.0-36.0 [facility] ([place]) Comment on above: Performed By: #### B MP, ANEU, ADIFF, MG, PHOS, CBC, GFR #### [place] [address] MCV (RBC) [Entitic vol] 86.3 fL Normal 80.0-99.0 [facility] ([place]) Comment on above: Performed By: #### B MP, ANEU, ADIFF, MG, PHOS, CBC, GFR #### [place] [address] Platelet 307 10 3/mcL Normal 150-450 [facility] ([place]) Comment on above: Performed By: #### B MP, ANEU, ADIFF, MG, PHOS, CBC, GFR #### [place] [address] Platelet mean volume (Bld) [Entitic vol] 6.7 fL Normal 6.6-10.5 [facility] ([place]) Comment on above: Performed By: #### B MP, ANEU, ADIFF, MG, PHOS, CBC, GFR #### [place] [address] RBC 3.98 10 6/mcL Low 4.10-5.30 [facility] ([place]) Comment on above: Performed By: #### B MP, ANEU, ADIFF, MG, PHOS, CBC, GFR #### [place] [address] WBC 8.7 10 3/mcL Normal 4.5-10.8 [facility] ([place]) Comment on above: Performed By: #### B MP, ANEU, ADIFF, MG, PHOS, CBC, GFR #### [place] [address] LABORATORYOrdered By: Rebeca Siu on 01-09-2023 Blood Glucose Testing Reason Routine (01/09/23 12:25 PM) [facility] Work Phone: Glucose [Mass/Vol] 241 mg/dL Invalid Interpretation Code 70 - 110 mg/dL [facility] Work Phone: LABORATORYOrdered By: Lisa benitez on 01-09-2023 Glucose [Mass/Vol] 228 mg/dL Invalid Interpretation Code 70 - 110 mg/dL [facility] Work Phone: LABORATORYOrdered By: SYSTEM SYSTEM on 01-09-2023 Basophils (Bld) [#/Vol] 0.0 103/mcL Invalid Interpretation Code 0.0 - 0.3 10^3/mcL Workflow SS Basophils/100 WBC (Bld) 0.1 % Invalid Interpretation Code 0.0 - 2.5 % Workflow SS Calcium [Mass/Vol] 8.5 mg/dL Invalid Interpretation Code 8.7 - 10.4 mg/dL ADM SS Chloride [Moles/Vol] 104 mmol/L Invalid Interpretation Code 98 - 110 mEq/L ADM SS CO2 [Moles/Vol] 34 mmol/L Invalid Interpretation Code 22 - 32 mEq/L ADM SS Creatinine [Mass/Vol] 0.41 mg/dL Invalid Interpretation Code 0.50 - 1.20 mg/dL ADM SS Electrolyte Balance 4.0 mEq/L Invalid Interpretation Code 4.0 - 15.0 mEq/L ADM SS Eosinophils (Bld) [#/Vol] 0.0 103/mcL Invalid Interpretation Code 0.0 - 0.7 10^3/mcL Workflow SS Eosinophils/100 WBC (Bld) 0.0 % Invalid Interpretation Code 0.0 - 6.0 % Workflow SS Erythrocyte distribution width (RBC) [Ratio] 14.3 % Invalid Interpretation Code 11.5 - 15.5 % Workflow SS GFR/1.73 sq M.predicted among blacks MDRD (S/P/Bld) [Vol rate/Area] ml/min/1.73sqm Invalid Interpretation Code Chemistry S GFR/1.73 sq M.predicted among non-blacks MDRD (S/P/Bld) [Vol rate/Area] ml/min/1.73sqm Invalid Interpretation Code Chemistry S Glucose [Mass/Vol] 226 mg/dL Invalid Interpretation Code 70 - 110 mg/dL AH ADM SS Hematocrit (Bld) [Volume fraction] 34.4 % Invalid Interpretation Code 34.0 - 46.0 % AH Workflow SS Hemoglobin (Bld) [Mass/Vol] 11.4 G/dL Invalid Interpretation Code 12.0 - 16.0 G/dL AH Workflow SS Lymphocytes (Bld) [#/Vol] 0.5 103/mcL Invalid Interpretation Code 0.9 - 4.3 10^3/mcL AH Workflow SS Lymphocytes/100 WBC (Bld) 6.1 % Invalid Interpretation Code 20.0 - 40.0 % AH Workflow SS Magnesium [Mass/Vol] 1.9 mg/dL Invalid Interpretation Code 1.6 - 2.4 mg/dL AH ADM SS MCH (RBC) [Entitic mass] 28.6 pg Invalid Interpretation Code 27.0 - 33.0 pg AH Workflow SS MCHC 33.1 G/dL Invalid Interpretation Code 32.0 - 36.0 G/dL AH Workflow SS MCV (RBC) [Entitic vol] 86.3 fL Invalid Interpretation Code 80.0 - 99.0 fL AH Workflow SS Monocytes (Bld) [#/Vol] 0.4 103/mcL Invalid Interpretation Code 0.1 - 1.4 10^3/mcL AH Workflow SS Monocytes/100 WBC (Bld) 4.7 % Invalid Interpretation Code 2.0 - 13.0 % AH Workflow SS Neutrophils (Bld) [#/Vol] 7.8 103/mcL Invalid Interpretation Code 2.3 - 8.1 10^3/mcL AH Workflow SS Neutrophils/100 WBC (Bld) 89.1 % Invalid Interpretation Code 50.0 - 75.0 % AH Workflow SS Phosphate [Mass/Vol] 2.5 mg/dL Invalid Interpretation Code 2.4 - 5.1 mg/dL ADM SS Platelet mean volume (Bld) [Entitic vol] 6.7 fL Invalid Interpretation Code 6.6 - 10.5 fL AH Workflow SS Platelets (Bld) [#/Vol] 307 103/mcL Invalid Interpretation Code 150 - 450 10^3/mcL AH Workflow SS Potassium [Moles/Vol] 4.5 mmol/L Invalid Interpretation Code 3.5 - 5.0 mEq/L ADM SS RBC (Bld) [#/Vol] 3.98 106/mcL Invalid Interpretation Code 4.10 - 5.30 10^6/mcL AH Workflow SS Sodium [Moles/Vol] 142 mmol/L Invalid Interpretation Code 136 - 145 mEq/L AH ADM SS Urea nitrogen [Mass/Vol] 22.0 mg/dL Invalid Interpretation Code 8.0 - 22.0 mg/dL AH ADM SS Urea nitrogen/Creatinine [Mass ratio] 53.7 ratio Invalid Interpretation Code 10.0 - 22.0 ratio AH ADM SS WBC (Bld) [#/Vol] 8.7 103/mcL Invalid Interpretation Code 4.5 - 10.8 10^3/mcL AH Workflow SS MGon 01-09-2023 Magnesium [Mass/Vol] 1.9 mg/dL Normal 1.6-2.4 [facility] ([place]) Comment on above: Performed By: #### L IPID, GFR, PBNP, ADIFF, CBC, ANEU, BMP, MG #### [place] [address] PHOSon 01-09-2023 Phosphate [Mass/Vol] 2.5 mg/dL Normal 2.4-5.1 [facility] ([place]) Comment on above: Result Comment: No te - New Reference Range in effect 20 Performed By: #### L IPID, GFR, PBNP, ADIFF, CBC, ANEU, BMP, MG #### [address] [address] .Auto Diffon 01-08-2023 Basophil, Absolute 0.0 10 3/mcL Normal 0.0-0.3 [facility] ([place]) Comment on above: Performed By: #### L IPID, GFR, PBNP, ADIFF, CBC, ANEU, BMP, MG #### [address] [address] Basophils/100 WBC (Bld) 0.4 % Normal 0.0-2.5 [facility] ([place]) Comment on above: Performed By: #### L IPID, GFR, PBNP, ADIFF, CBC, ANEU, BMP, MG #### [address] [address] Eosinophil, Absolute 0.0 10 3/mcL Normal 0.0-0.7 [facility] ([place]) Comment on above: Performed By: #### L IPID, GFR, PBNP, ADIFF, CBC, ANEU, BMP, MG #### [address] [address] Eosinophils/100 WBC (Bld) 0.0 % Normal 0.0-6.0 [facility] ([place]) Comment on above: Performed By: #### L IPID, GFR, PBNP, ADIFF, CBC, ANEU, BMP, MG #### [address] [address] Lymphocyte, Absolute 0.6 10 3/mcL Low 0.9-4.3 [facility] ([place]) Comment on above: Performed By: #### L IPID, GFR, PBNP, ADIFF, CBC, ANEU, BMP, MG #### [address] [address] Lymphocytes/100 WBC (Bld) 5.2 % Low 20.0-40.0 [facility] ([place]) Comment on above: Performed By: #### L IPID, GFR, PBNP, ADIFF, CBC, ANEU, BMP, MG #### [address] [address] Monocyte, Absolute 0.7 10 3/mcL Normal 0.1-1.4 [facility] ([place]) Comment on above: Performed By: #### L IPID, GFR, PBNP, ADIFF, CBC, ANEU, BMP, MG #### [address] [address] Monocytes/100 WBC (Bld) 5.8 % Normal 2.0-13.0 [facility] ([place]) Comment on above: Performed By: #### L IPID, GFR, PBNP, ADIFF, CBC, ANEU, BMP, MG #### [address] [address] Neutrophils/100 WBC (Bld) 88.6 % High 50.0-75.0 [facility] ([place]) Comment on above: Performed By: #### L IPID, GFR, PBNP, ADIFF, CBC, ANEU, BMP, MG #### [address] [address] .GFRon 01-08-2023 GFR >60 Normal [facility] ([place]) Comment on above: Result Comment: GFR Population mean for , Non- Americans Ages 20-29 = 116 mL/min/1.73 sq.m. Ages 30-39 = 107 mL/min/1.73 sq.m. Ages 40-49 = 99 mL/min/1.73 sq.m. Ages 50-59 = 93 mL/min/1.73 sq.m. Ages 60-69 = 85 mL/min/1.73 sq.m. Ages 70+ = 75 mL/min/1.73 sq.m. Chronic Kidney Disease: Less than 60 mL/min/1.73 square meters End Stage Renal Disease: Less than 15 mL/min/1.73 square meters Performed By: #### L IPID, GFR, PBNP, ADIFF, CBC, ANEU, BMP, MG #### [address] [address] GFR Non- >60 Normal [facility] ([place]) Comment on above: Result Comment: GFR Population mean for , Non- Americans Ages 20-29 = 116 mL/min/1.73 sq.m. Ages 30-39 = 107 mL/min/1.73 sq.m. Ages 40-49 = 99 mL/min/1.73 sq.m. Ages 50-59 = 93 mL/min/1.73 sq.m. Ages 60-69 = 85 mL/min/1.73 sq.m. Ages 70+ = 75 mL/min/1.73 sq.m. Chronic Kidney Disease: Less than 60 mL/min/1.73 square meters End Stage Renal Disease: Less than 15 mL/min/1.73 square meters Performed By: #### L IPID, GFR, PBNP, ADIFF, CBC, ANEU, BMP, MG #### [address] [address] .NEUABSon 01-08-2023 Neutrophil, Absolute 10.4 10 3/mcL High 2.3-8.1 [facility] ([place]) Comment on above: Performed By: #### L IPID, GFR, PBNP, ADIFF, CBC, ANEU, BMP, MG #### [address] [address] A1Con 01-08-2023 HbA1c (Bld) [Mass fraction] 7.2 % High 4.0-6.0 [facility] ([place]) Comment on above: Performed By: #### L IPID, GFR, PBNP, ADIFF, CBC, ANEU, BMP, MG #### [address] [address] BMPon 01-08-2023 BUN/Creatinine Ratio 51.3 ratio High 10.0-22.0 [facility] ([place]) Comment on above: Performed By: #### L IPID, GFR, PBNP, ADIFF, CBC, ANEU, BMP, MG #### [address] [address] Calcium [Mass/Vol] 8.3 mg/dL Low 8.7-10.4 [facility] ([place]) Comment on above: Performed By: #### L IPID, GFR, PBNP, ADIFF, CBC, ANEU, BMP, MG #### [address] [address] Chloride [Moles/Vol] 104 mmol/L Normal 98-110 [facility] ([place]) Comment on above: Performed By: #### L IPID, GFR, PBNP, ADIFF, CBC, ANEU, BMP, MG #### [address] [address] CO2 [Moles/Vol] 29 mmol/L Normal 22-32 [facility] ([place]) Comment on above: Performed By: #### L IPID, GFR, PBNP, ADIFF, CBC, ANEU, BMP, MG #### [address] [address] Creatinine [Mass/Vol] 0.39 mg/dL Low 0.50-1.20 [facility] ([place]) Comment on above: Performed By: #### L IPID, GFR, PBNP, ADIFF, CBC, ANEU, BMP, MG #### [address] [address] Electrolyte Balance 8.0 mEq/L Normal 4.0-15.0 [facility] ([place]) Comment on above: Performed By: #### L IPID, GFR, PBNP, ADIFF, CBC, ANEU, BMP, MG #### [address] [address] Glucose [Mass/Vol] 188 mg/dL High 70-110 [facility] ([place]) Comment on above: Performed By: #### L IPID, GFR, PBNP, ADIFF, CBC, ANEU, BMP, MG #### [address] [address] Potassium [Moles/Vol] 4.2 mmol/L Normal 3.5-5.0 [facility] ([place]) Comment on above: Result Comment: Spec imen slightly hemolyzed. Performed By: #### L IPID, GFR, PBNP, ADIFF, CBC, ANEU, BMP, MG #### [place] [id number] Sodium [Moles/Vol] 141 mmol/L Normal 136-145 [facility] ([place]) Comment on above: Performed By: #### L IPID, GFR, PBNP, ADIFF, CBC, ANEU, BMP, MG #### [place] [id number] Urea nitrogen [Mass/Vol] 20.0 mg/dL Normal 8.0-22.0 [facility] ([place]) Comment on above: Performed By: #### L IPID, GFR, PBNP, ADIFF, CBC, ANEU, BMP, MG #### [address] [address] CBCon 01-08-2023 Erythrocyte distribution width (RBC) [Ratio] 13.9 % Normal 11.5-15.5 [facility] ([place]) Comment on above: Performed By: #### L IPID, GFR, PBNP, ADIFF, CBC, ANEU, BMP, MG #### [address] [address] Hematocrit (Bld) [Volume fraction] 32.1 % Low 34.0-46.0 [facility] ([place]) Comment on above: Performed By: #### L IPID, GFR, PBNP, ADIFF, CBC, ANEU, BMP, MG #### [place] [address] Hgb 10.6 G/dL Low 12.0-16.0 [facility] ([place]) Comment on above: Performed By: #### L IPID, GFR, PBNP, ADIFF, CBC, ANEU, BMP, MG #### [place] [address] MCH (RBC) [Entitic mass] 28.5 pg Normal 27.0-33.0 [facility] ([place]) Comment on above: Performed By: #### L IPID, GFR, PBNP, ADIFF, CBC, ANEU, BMP, MG #### [place] [address] MCHC 32.9 G/dL Normal 32.0-36.0 [facility] ([place]) Comment on above: Performed By: #### L IPID, GFR, PBNP, ADIFF, CBC, ANEU, BMP, MG #### [place] [address] MCV (RBC) [Entitic vol] 86.4 fL Normal 80.0-99.0 [facility] ([place]) Comment on above: Performed By: #### L IPID, GFR, PBNP, ADIFF, CBC, ANEU, BMP, MG #### [place] [address] Platelet 279 10 3/mcL Normal 150-450 [facility] ([place]) Comment on above: Performed By: #### L IPID, GFR, PBNP, ADIFF, CBC, ANEU, BMP, MG #### [place] [address] Platelet mean volume (Bld) [Entitic vol] 7.3 fL Normal 6.6-10.5 [facility] ([place]) Comment on above: Performed By: #### L IPID, GFR, PBNP, ADIFF, CBC, ANEU, BMP, MG #### [place] [address] RBC 3.72 10 6/mcL Low 4.10-5.30 [facility] ([place]) Comment on above: Performed By: #### L IPID, GFR, PBNP, ADIFF, CBC, ANEU, BMP, MG #### [place] [address] WBC 11.7 10 3/mcL High 4.5-10.8 [facility] ([place]) Comment on above: Performed By: #### L IPID, GFR, PBNP, ADIFF, CBC, ANEU, BMP, MG #### [place] [address] CRPHSon 01-08-2023 CRP, High Sensitive 120.66 mg/L High 0.20-3.00 [facility] ([place]) Comment on above: Result Comment: Spec imen slightly hemolyzed. Relative Risk Category and Average hs-CRP Level: Higher Risk: > 5.0 mg/L Guidelines support that hs-CRP can be used as an independent predictor of increased coronary risk; however, hs-CRP results should only be interpreted in conjunction with other cardiac risk factors in establishing overall cardiac risk for a given patient. Performed By: #### L IPID, GFR, PBNP, ADIFF, CBC, ANEU, BMP, MG #### [place] [address] ESRon 01-08-2023 Erythrocyte Sed Rate 109 mm/hr High 0-30 [facility] ([place]) Comment on above: Performed By: #### L IPID, GFR, PBNP, ADIFF, CBC, ANEU, BMP, MG #### [place] [address] LABORATORYOrdered By: Christianne Rivera on 01-08-2023 Blood Glucose Testing Reason Routine (01/08/23 9:44 PM) [facility] Work Phone: Glucose [Mass/Vol] 303 mg/dL Invalid Interpretation Code 70 - 110 mg/dL [facility] Work Phone: Blood Glucose Testing Reason Routine (01/08/23 4:17 PM) [facility] Work Phone: LABORATORYOrdered By: SYSTEM SYSTEM on 01-08-2023 Basophils (Bld) [#/Vol] 0.0 103/mcL Invalid Interpretation Code 0.0 - 0.3 10^3/mcL AH Workflow SS Basophils/100 WBC (Bld) 0.4 % Invalid Interpretation Code 0.0 - 2.5 % AH Workflow SS Calcium [Mass/Vol] 8.3 mg/dL Invalid Interpretation Code 8.7 - 10.4 mg/dL ADM SS Chloride [Moles/Vol] 104 mmol/L Invalid Interpretation Code 98 - 110 mEq/L ADM SS CO2 [Moles/Vol] 29 mmol/L Invalid Interpretation Code 22 - 32 mEq/L ADM SS Creatinine [Mass/Vol] 0.39 mg/dL Invalid Interpretation Code 0.50 - 1.20 mg/dL ADM SS CRP High sensitivity method [Mass/Vol] 120.66 mg/L Invalid Interpretation Code 0.20 - 3.00 mg/L ADM SS Comment on above: Result Comment: Spec imen slightly hemolyzed. Electrolyte Balance 8.0 mEq/L Invalid Interpretation Code 4.0 - 15.0 mEq/L ADM SS Eosinophils (Bld) [#/Vol] 0.0 103/mcL Invalid Interpretation Code 0.0 - 0.7 10^3/mcL Workflow SS Eosinophils/100 WBC (Bld) 0.0 % Invalid Interpretation Code 0.0 - 6.0 % Workflow SS Erythrocyte distribution width (RBC) [Ratio] 13.9 % Invalid Interpretation Code 11.5 - 15.5 % Workflow SS GFR/1.73 sq M.predicted among blacks MDRD (S/P/Bld) [Vol rate/Area] ml/min/1.73sqm Invalid Interpretation Code Chemistry S GFR/1.73 sq M.predicted among non-blacks MDRD (S/P/Bld) [Vol rate/Area] ml/min/1.73sqm Invalid Interpretation Code Chemistry S Glucose [Mass/Vol] 188 mg/dL Invalid Interpretation Code 70 - 110 mg/dL ADM SS HbA1c (Bld) [Mass fraction] 7.2 % Invalid Interpretation Code 4.0 - 6.0 % Auto Chem SS Hematocrit (Bld) [Volume fraction] 32.1 % Invalid Interpretation Code 34.0 - 46.0 % Workflow SS Hemoglobin (Bld) [Mass/Vol] 10.6 G/dL Invalid Interpretation Code 12.0 - 16.0 G/dL AH Workflow SS LDH Lactate to pyruvate reaction [Catalytic activity/Vol] 263 1 Invalid Interpretation Code 120 - 246 U/L ADM SS Lymphocytes (Bld) [#/Vol] 0.6 103/mcL Invalid Interpretation Code 0.9 - 4.3 10^3/mcL AH Workflow SS Lymphocytes/100 WBC (Bld) 5.2 % Invalid Interpretation Code 20.0 - 40.0 % AH Workflow SS Magnesium [Mass/Vol] 1.8 mg/dL Invalid Interpretation Code 1.6 - 2.4 mg/dL AH ADM SS MCH (RBC) [Entitic mass] 28.5 pg Invalid Interpretation Code 27.0 - 33.0 pg AH Workflow SS MCHC 32.9 G/dL Invalid Interpretation Code 32.0 - 36.0 G/dL AH Workflow SS MCV (RBC) [Entitic vol] 86.4 fL Invalid Interpretation Code 80.0 - 99.0 fL AH Workflow SS Monocytes (Bld) [#/Vol] 0.7 103/mcL Invalid Interpretation Code 0.1 - 1.4 10^3/mcL AH Workflow SS Monocytes/100 WBC (Bld) 5.8 % Invalid Interpretation Code 2.0 - 13.0 % AH Workflow SS Neutrophils (Bld) [#/Vol] 10.4 103/mcL Invalid Interpretation Code 2.3 - 8.1 10^3/mcL AH Workflow SS Neutrophils/100 WBC (Bld) 88.6 % Invalid Interpretation Code 50.0 - 75.0 % AH Workflow SS Phosphate [Mass/Vol] 2.5 mg/dL Invalid Interpretation Code 2.4 - 5.1 mg/dL ADM SS Platelet mean volume (Bld) [Entitic vol] 7.3 fL Invalid Interpretation Code 6.6 - 10.5 fL AH Workflow SS Platelets (Bld) [#/Vol] 279 103/mcL Invalid Interpretation Code 150 - 450 10^3/mcL AH Workflow SS Potassium [Moles/Vol] 4.2 mmol/L Invalid Interpretation Code 3.5 - 5.0 mEq/L ADM SS Comment on above: Result Comment: Spec imen slightly hemolyzed. RBC (Bld) [#/Vol] 3.72 106/mcL Invalid Interpretation Code 4.10 - 5.30 10^6/mcL AH Workflow SS Sodium [Moles/Vol] 141 mmol/L Invalid Interpretation Code 136 - 145 mEq/L AH ADM SS Urea nitrogen [Mass/Vol] 20.0 mg/dL Invalid Interpretation Code 8.0 - 22.0 mg/dL AH ADM SS Urea nitrogen/Creatinine [Mass ratio] 51.3 ratio Invalid Interpretation Code 10.0 - 22.0 ratio AH ADM SS WBC (Bld) [#/Vol] 11.7 103/mcL Invalid Interpretation Code 4.5 - 10.8 10^3/mcL AH Workflow SS LABORATORYOrdered By: Mayte Maciel on 01-08-2023 ESR 15 minute reading (Bld) [Velocity] 109 mm/hr Invalid Interpretation Code 0 - 30 mm/hr AH Manual Heme SS LDHon 01-08-2023 LDH 263 U/L High 120-246 [facility] ([place]) Comment on above: Performed By: #### L IPID, GFR, PBNP, ADIFF, CBC, ANEU, BMP, MG #### [address] [address] MGon 01-08-2023 Magnesium [Mass/Vol] 1.8 mg/dL Normal 1.6-2.4 [facility] ([place]) Comment on above: Performed By: #### L IPID, GFR, PBNP, ADIFF, CBC, ANEU, BMP, MG #### [place] [id number] PHOSon 01-08-2023 Phosphate [Mass/Vol] 2.5 mg/dL Normal 2.4-5.1 [facility] ([place]) Comment on above: Result Comment: No te - New Reference Range in effect 20 Performed By: #### L IPID, GFR, PBNP, ADIFF, CBC, ANEU, BMP, MG #### [address] [address] XR CHEST 2 VIEWSon 3 XR CHEST 2 VIEWS ORIGINAL EXAMINATION: TWO XRAY VIEWS OF THE [...] No significant interval change. Interpreted by: Bharathi Welch DO Preliminary Report By: Bharathi Welch DO Electronically signed By Bharathi Welch DO Dictated Date: 01/08/2023 1:43:46 PM Prelim Date: 01/08/2023 1:58:59 PM Sign Date: 01/08/2023 1:58:59 PM Ordering Provider: WINIFRED Mora [facility] ([place]) .Auto Diffon 01-07-2023 Basophil, Absolute 0.0 10 3/mcL Normal 0.0-0.3 [facility] ([place]) Comment on above: Performed By: #### L IPID, GFR, PBNP, ADIFF, CBC, ANEU, BMP, MG #### [place] [address] Eosinophil, Absolute 0.0 10 3/mcL Normal 0.0-0.7 [facility] ([place]) Comment on above: Performed By: #### L IPID, GFR, PBNP, ADIFF, CBC, ANEU, BMP, MG #### [place] [address] Lymphocyte, Absolute 0.4 10 3/mcL Low 0.9-4.3 [facility] ([place]) Comment on above: Performed By: #### L IPID, GFR, PBNP, ADIFF, CBC, ANEU, BMP, MG #### [place] [address] Monocyte, Absolute 0.5 10 3/mcL Normal 0.1-1.4 [facility] ([place]) Comment on above: Performed By: #### L IPID, GFR, PBNP, ADIFF, CBC, ANEU, BMP, MG #### [place] [address] .Auto DiffOrdered By: SYSTEM SYSTEM on 01-07-2023 Basophils/100 WBC (Bld) 0.1 % Normal 0.0-2.5 Workflow SS Comment on above: Performed By: #### L IPID, GFR, PBNP, ADIFF, CBC, ANEU, BMP, MG #### [address] [address] Eosinophils/100 WBC (Bld) 0.0 % Normal 0.0-6.0 AH Workflow SS Comment on above: Performed By: #### L IPID, GFR, PBNP, ADIFF, CBC, ANEU, BMP, MG #### [address] [address] Lymphocytes/100 WBC (Bld) 4.6 % Low 20.0-40.0 AH Workflow SS Comment on above: Performed By: #### L IPID, GFR, PBNP, ADIFF, CBC, ANEU, BMP, MG #### [address] [address] Monocytes/100 WBC (Bld) 6.2 % Normal 2.0-13.0 AH Workflow SS Comment on above: Performed By: #### L IPID, GFR, PBNP, ADIFF, CBC, ANEU, BMP, MG #### [address] [address] Neutrophils/100 WBC (Bld) 89.1 % High 50.0-75.0 AH Workflow SS Comment on above: Performed By: #### L IPID, GFR, PBNP, ADIFF, CBC, ANEU, BMP, MG #### [address] [address] .GFRon 01-07-2023 GFR Non- >60 Normal [facility] ([place]) Comment on above: Result Comment: GFR Population mean for , Non- Americans Ages 20-29 = 116 mL/min/1.73 sq.m. Ages 30-39 = 107 mL/min/1.73 sq.m. Ages 40-49 = 99 mL/min/1.73 sq.m. Ages 50-59 = 93 mL/min/1.73 sq.m. Ages 60-69 = 85 mL/min/1.73 sq.m. Ages 70+ = 75 mL/min/1.73 sq.m. Chronic Kidney Disease: Less than 60 mL/min/1.73 square meters End Stage Renal Disease: Less than 15 mL/min/1.73 square meters Performed By: #### L IPID, GFR, PBNP, ADIFF, CBC, ANEU, BMP, MG #### [address] [address] GFR >60 Normal [facility] ([place]) Comment on above: Result Comment: GFR Population mean for , Non- Americans Ages 20-29 = 116 mL/min/1.73 sq.m. Ages 30-39 = 107 mL/min/1.73 sq.m. Ages 40-49 = 99 mL/min/1.73 sq.m. Ages 50-59 = 93 mL/min/1.73 sq.m. Ages 60-69 = 85 mL/min/1.73 sq.m. Ages 70+ = 75 mL/min/1.73 sq.m. Chronic Kidney Disease: Less than 60 mL/min/1.73 square meters End Stage Renal Disease: Less than 15 mL/min/1.73 square meters Performed By: #### L IPID, GFR, PBNP, ADIFF, CBC, ANEU, BMP, MG #### [place] [id number] .NEUABSon 01-07-2023 Neutrophil, Absolute 7.4 10 3/mcL Normal 2.3-8.1 [facility] ([place]) Comment on above: Performed By: #### L IPID, GFR, PBNP, ADIFF, CBC, ANEU, BMP, MG #### [place] [id number] BFPRon 01-07-2023 Body Fluid Path Review Negative for mark gnant cells. Marked acute inflammation present. Normal [facility] ([place]) Comment on above: Order Comment: Added by Discern Result Comment: Elec tronically signed by: GILBERTO BURNETTE 01.07.2023 12:29 EDT Performed By: #### L IPID, GFR, PBNP, ADIFF, CBC, ANEU, BMP, MG #### [place] [id number] BMPon 01-07-2023 BUN/Creatinine Ratio 41.0 ratio High 10.0-22.0 [facility] ([place]) Comment on above: Performed By: #### L IPID, GFR, PBNP, ADIFF, CBC, ANEU, BMP, MG #### [address] [address] BMPOrdered By: SYSTEM SYSTEM on 01-07-2023 Calcium [Mass/Vol] 8.8 mg/dL Normal 8.7-10.4 AH ADM SS Comment on above: Performed By: #### L IPID, GFR, PBNP, ADIFF, CBC, ANEU, BMP, MG #### [place] [id number] Chloride [Moles/Vol] 108 mmol/L Normal 98-110 AH A DM SS Comment on above: Performed By: #### L IPID, GFR, PBNP, ADIFF, CBC, ANEU, BMP, MG #### [place] [address] CO2 [Moles/Vol] 29 mmol/L Normal 22-32 AH ADM SS Comment on above: Performed By: #### L IPID, GFR, PBNP, ADIFF, CBC, ANEU, BMP, MG #### [place] [address] Creatinine [Mass/Vol] 0.39 mg/dL Low 0.50-1.20 AH ADM SS Comment on above: Performed By: #### L IPID, GFR, PBNP, ADIFF, CBC, ANEU, BMP, MG #### [place] [address] Electrolyte Balance 3.0 mEq/L Low 4.0-15.0 AH AD M SS Comment on above: Performed By: #### L IPID, GFR, PBNP, ADIFF, CBC, ANEU, BMP, MG #### [place] [address] Glucose [Mass/Vol] 200 mg/dL High 70-110 AH ADM SS Comment on above: Performed By: #### L IPID, GFR, PBNP, ADIFF, CBC, ANEU, BMP, MG #### [place] [address] Potassium [Moles/Vol] 4.2 mmol/L Normal 3.5-5.0 AH ADM SS Comment on above: Performed By: #### L IPID, GFR, PBNP, ADIFF, CBC, ANEU, BMP, MG #### [place] [address] Sodium [Moles/Vol] 140 mmol/L Normal 136-145 AH ADM SS Comment on above: Performed By: #### L IPID, GFR, PBNP, ADIFF, CBC, ANEU, BMP, MG #### [place] [address] Urea nitrogen [Mass/Vol] 16.0 mg/dL Normal 8.0-22.0 AH ADM SS Comment on above: Performed By: #### L IPID, GFR, PBNP, ADIFF, CBC, ANEU, BMP, MG #### [place] [address] CBCOrdered By: SYSTEM SYSTEM on 01-07-2023 Erythrocyte distribution width (RBC) [Ratio] 14.2 % Normal 11.5-15.5 AH Workflow SS Comment on above: Performed By: #### L IPID, GFR, PBNP, ADIFF, CBC, ANEU, BMP, MG #### [place] [address] Hematocrit (Bld) [Volume fraction] 32.2 % Low 34.0-46.0 AH Workflow SS Comment on above: Performed By: #### L IPID, GFR, PBNP, ADIFF, CBC, ANEU, BMP, MG #### [place] [address] MCH (RBC) [Entitic mass] 28.7 pg Normal 27.0-33.0 AH Workflow SS Comment on above: Performed By: #### L IPID, GFR, PBNP, ADIFF, CBC, ANEU, BMP, MG #### [place] [address] MCHC 33.1 G/dL Normal 32.0-36.0 AH Workflow SS Comment on above: Performed By: #### L IPID, GFR, PBNP, ADIFF, CBC, ANEU, BMP, MG #### [place] [address] MCV (RBC) [Entitic vol] 86.8 fL Normal 80.0-99.0 AH Workflow SS Comment on above: Performed By: #### L IPID, GFR, PBNP, ADIFF, CBC, ANEU, BMP, MG #### [place] [address] Platelet mean volume (Bld) [Entitic vol] 7.3 fL Normal 6.6-10.5 [facility] Comment on above: Performed By: #### L IPID, GFR, PBNP, ADIFF, CBC, ANEU, BMP, MG #### [place] [address] CBCon 01-07-2023 Hgb 10.7 G/dL Low 12.0-16.0 [facility] ([place]) Comment on above: Performed By: #### L IPID, GFR, PBNP, ADIFF, CBC, ANEU, BMP, MG #### [place] [address] Platelet 245 10 3/mcL Normal 150-450 [facility] ([place]) Comment on above: Performed By: #### L IPID, GFR, PBNP, ADIFF, CBC, ANEU, BMP, MG #### [place] [address] RBC 3.71 10 6/mcL Low 4.10-5.30 [facility] ([place]) Comment on above: Performed By: #### L IPID, GFR, PBNP, ADIFF, CBC, ANEU, BMP, MG #### [place] [address] WBC 8.3 10 3/mcL Normal 4.5-10.8 [facility] ([place]) Comment on above: Performed By: #### L IPID, GFR, PBNP, ADIFF, CBC, ANEU, BMP, MG #### [place] [address] CT THORAX W/O CONTRASTon CT THORAX W/O CONTRAST ORIGINAL EXAMINATION: CT OF THE CHEST WITHOUT [...] INPUT NECESSARY, DO NOT FILE! Interpreted by: Sj Morton DO Preliminary Report By: Sj Morton DO Electronically signed By Sj Morton DO Dictated Date: 01/06/2023 11:54:04 PM Prelim Date: 01/07/2023 12:15:42 AM Sign Date: 01/07/2023 12:15:42 AM Ordering Provider: WINIFRED PÉREZ [facility] ([place]) LABORATORYOrdered By: SYSTEM SYSTEM on 01-07-2023 Basophils (Bld) [#/Vol] 0.0 103/mcL Invalid Interpretation Code 0.0 - 0.3 10^3/mcL AH Workflow SS Eosinophils (Bld) [#/Vol] 0.0 103/mcL Invalid Interpretation Code 0.0 - 0.7 10^3/mcL Workflow SS GFR/1.73 sq M.predicted among blacks MDRD (S/P/Bld) [Vol rate/Area] ml/min/1.73sqm Invalid Interpretation Code AH ADM SS GFR/1.73 sq M.predicted among non-blacks MDRD (S/P/Bld) [Vol rate/Area] ml/min/1.73sqm Invalid Interpretation Code ADM SS Hemoglobin (Bld) [Mass/Vol] 10.7 G/dL Invalid Interpretation Code 12.0 - 16.0 G/dL AH Workflow SS Lymphocytes (Bld) [#/Vol] 0.4 103/mcL Invalid Interpretation Code 0.9 - 4.3 10^3/mcL Workflow SS Monocytes (Bld) [#/Vol] 0.5 103/mcL Invalid Interpretation Code 0.1 - 1.4 10^3/mcL Workflow SS Neutrophils (Bld) [#/Vol] 7.4 103/mcL Invalid Interpretation Code 2.3 - 8.1 10^3/mcL Workflow SS Platelets (Bld) [#/Vol] 245 103/mcL Invalid Interpretation Code 150 - 450 10^3/mcL Workflow SS RBC (Bld) [#/Vol] 3.71 106/mcL Invalid Interpretation Code 4.10 - 5.30 10^6/mcL Workflow SS Urea nitrogen/Creatinine [Mass ratio] 41.0 ratio Invalid Interpretation Code 10.0 - 22.0 ratio ADM SS WBC (Bld) [#/Vol] 8.3 103/mcL Invalid Interpretation Code 4.5 - 10.8 10^3/mcL Workflow SS LABORATORYOrdered By: Roxanne Alfonso on 01-07-2023 Natriuretic peptide.B prohormone N-Terminal [Mass/Vol] 583 pg/mL Invalid Interpretation Code 0 - 900 pg/mL Auto Chem SS LIPIDOrdered By: Liliya Patel on 01-07-2023 Cholesterol [Mass/Vol] 119 mg/dL Normal 50-199 ADM Comment on above: Result Comment: Chol esterol Reference Interval: Less than 200 Desirable 200-239 Borderline high risk 240 and above High risk Performed By: #### L IPID, GFR, PBNP, ADIFF, CBC, ANEU, BMP, MG #### [facility] [address] [place] [address] Cholesterol in HDL [Mass/Vol] 42 mg/dL Normal 40-59 ADM Comment on above: Performed By: #### L IPID, GFR, PBNP, ADIFF, CBC, ANEU, BMP, MG #### [address] [address] Cholesterol in LDL [Mass/Vol] 64 mg/dL Normal 0-129 AH ADM SS Comment on above: Performed By: #### L IPID, GFR, PBNP, ADIFF, CBC, ANEU, BMP, MG #### [address] [address] Triglyceride [Mass/Vol] 65 mg/dL Normal 3-149 AH ADM SS Comment on above: Performed By: #### L IPID, GFR, PBNP, ADIFF, CBC, ANEU, BMP, MG #### [address] [address] MGOrdered By: SYSTEM SYSTEM on 01-07-2023 Magnesium [Mass/Vol] 2.0 mg/dL Normal 1.6-2.4 AH A DM SS Comment on above: Performed By: #### L IPID, GFR, PBNP, ADIFF, CBC, ANEU, BMP, MG #### [address] [address] PBNPon 01-07-2023 Natriuretic peptide B (Bld) [Mass/Vol] 583 pg/mL Normal 0-900 [facility] ([place]) Comment on above: Result Comment: NT-p roBNP results of less than 300 pg/mL effectively rules out acute congestive heart failure with 99% negative predictive value. Performed By: #### L IPID, GFR, PBNP, ADIFF, CBC, ANEU, BMP, MG #### [address] [address] US CHESTon 01-07-2023 US CHEST ORIGINAL HISTORY: Effusion COMPARISON: Previous day FINDINGS: There is no drainable fluid collection. Interpreted by: Blanca Gutiérrez MD Preliminary Report By: Blanca Gutiérrez MD Electronically signed By Blanca Gutiérrez MD Dictated Date: 01/07/2023 10:00:13 AM Prelim Date: 01/07/2023 10:01:06 AM Sign Date: 01/07/2023 10:01:06 AM Ordering Provider: BONITA RODRIGUEZ [facility] ([place]) .Auto Diffon 01-06-2023 Basophil, Absolute 0.1 10 3/mcL Normal 0.0-0.3 [facility] ([place]) Comment on above: Performed By: #### L IPID, GFR, PBNP, ADIFF, CBC, ANEU, BMP, MG #### [address] [address] Basophils/100 WBC (Bld) 0.5 % Normal 0.0-2.5 [facility] ([place]) Comment on above: Performed By: #### L IPID, GFR, PBNP, ADIFF, CBC, ANEU, BMP, MG #### [address] [address] Eosinophil, Absolute 0.0 10 3/mcL Normal 0.0-0.7 [facility] ([place]) Comment on above: Performed By: #### L IPID, GFR, PBNP, ADIFF, CBC, ANEU, BMP, MG #### [address] [address] Eosinophils/100 WBC (Bld) 0.1 % Normal 0.0-6.0 [facility] ([place]) Comment on above: Performed By: #### L IPID, GFR, PBNP, ADIFF, CBC, ANEU, BMP, MG #### [address] [address] Lymphocyte, Absolute 0.9 10 3/mcL Normal 0.9-4.3 [facility] ([place]) Comment on above: Performed By: #### L IPID, GFR, PBNP, ADIFF, CBC, ANEU, BMP, MG #### [address] [address] Lymphocytes/100 WBC (Bld) 6.3 % Low 20.0-40.0 [facility] ([place]) Comment on above: Performed By: #### L IPID, GFR, PBNP, ADIFF, CBC, ANEU, BMP, MG #### [address] [address] Monocyte, Absolute 1.5 10 3/mcL High 0.1-1.4 [facility] ([place]) Comment on above: Performed By: #### L IPID, GFR, PBNP, ADIFF, CBC, ANEU, BMP, MG #### [address] [address] Monocytes/100 WBC (Bld) 10.4 % Normal 2.0-13.0 [facility] ([place]) Comment on above: Performed By: #### L IPID, GFR, PBNP, ADIFF, CBC, ANEU, BMP, MG #### [address] [address] Neutrophils/100 WBC (Bld) 82.7 % High 50.0-75.0 [facility] ([place]) Comment on above: Performed By: #### L IPID, GFR, PBNP, ADIFF, CBC, ANEU, BMP, MG #### [address] [address] .GFRon 01-06-2023 GFR >60 Normal [facility] ([place]) Comment on above: Result Comment: GFR Population mean for , Non- Americans Ages 20-29 = 116 mL/min/1.73 sq.m. Ages 30-39 = 107 mL/min/1.73 sq.m. Ages 40-49 = 99 mL/min/1.73 sq.m. Ages 50-59 = 93 mL/min/1.73 sq.m. Ages 60-69 = 85 mL/min/1.73 sq.m. Ages 70+ = 75 mL/min/1.73 sq.m. Chronic Kidney Disease: Less than 60 mL/min/1.73 square meters End Stage Renal Disease: Less than 15 mL/min/1.73 square meters Performed By: #### L IPID, GFR, PBNP, ADIFF, CBC, ANEU, BMP, MG #### [address] [address] GFR Non- >60 Normal [facility] ([place]) Comment on above: Result Comment: GFR Population mean for , Non- Americans Ages 20-29 = 116 mL/min/1.73 sq.m. Ages 30-39 = 107 mL/min/1.73 sq.m. Ages 40-49 = 99 mL/min/1.73 sq.m. Ages 50-59 = 93 mL/min/1.73 sq.m. Ages 60-69 = 85 mL/min/1.73 sq.m. Ages 70+ = 75 mL/min/1.73 sq.m. Chronic Kidney Disease: Less than 60 mL/min/1.73 square meters End Stage Renal Disease: Less than 15 mL/min/1.73 square meters Performed By: #### L IPID, GFR, PBNP, ADIFF, CBC, ANEU, BMP, MG #### [facility] [address] [place] [address] .NEUABSon 01-06-2023 Neutrophil, Absolute 11.6 10 3/mcL High 2.3-8.1 A [facility] ([place]) Comment on above: Performed By: #### L IPID, GFR, PBNP, ADIFF, CBC, ANEU, BMP, MG #### [facility] [address] [place] [address] AMYBFon 01-06-2023 Amylase [Catalytic activity/Vol] 22 U/L Normal [facility] ([place]) Comment on above: Order Comment: Thora centesis left lung Performed By: #### L IPID, GFR, PBNP, ADIFF, CBC, ANEU, BMP, MG #### [address] [address] Amylase BF Type Thoracentesis Normal [facility] ([place]) Comment on above: Order Comment: Thora centesis left lung Result Comment: The reference interval(s) and other method performance specifications have not been established for this body fluid. The test result must be integrated into the clinical content for interpretation. Body Fluid received with Thoracentesis label on it and [facility] Specimen Source - Thoracentesis per Dena Dorantes RN. 01/06/2023 13:18:30 EDT AD The reference interval(s) and other method performance specifications have not been established for this body fluid. The test result must be integrated into the clinical content for interpretation. Performed By: #### L IPID, GFR, PBNP, ADIFF, CBC, ANEU, BMP, MG #### [facility] [address] [place] [address] BFCTon 01-06-2023 Cells Counted BF 100 Normal [facility] ([place]) Comment on above: Order Comment: Left lung Performed By: #### L IPID, GFR, PBNP, ADIFF, CBC, ANEU, BMP, MG #### [address] [address] Lymphocytes/100 WBC (Bld) 2 % Normal [facility] ([place]) Comment on above: Order Comment: Left lung Performed By: #### L IPID, GFR, PBNP, ADIFF, CBC, ANEU, BMP, MG #### [address] [address] Mononuclear cell % BF 9 % Normal [facility] ([place]) Comment on above: Order Comment: Left lung Performed By: #### L IPID, GFR, PBNP, ADIFF, CBC, ANEU, BMP, MG #### [address] [address] Neutrophils/100 WBC (Bld) 89 % Normal [facility] ([place]) Comment on above: Order Comment: Left lung Performed By: #### L IPID, GFR, PBNP, ADIFF, CBC, ANEU, BMP, MG #### [address] [address] Body Fluid Source Thoracentesis Normal [facility] ([place]) Comment on above: Order Comment: Left lung Result Comment: Body Fluid received with Thoracentesis label on it and Pleural specimen source in [employer]. Specimen Source - Thoracentesis per Dena Dorantes RN. 01/06/2023 13:18:30 EDT AD Reference ranges have not been established for this body fluid. The test results must be integrated into the clinical context for interpretation. Reference ranges have not been established for this body fluid. The test results must be integrated into the clinical context for interpretation. Performed By: #### L IPID, GFR, PBNP, ADIFF, CBC, ANEU, BMP, MG #### [address] [address] Total Nucleated Cells 2819 /mm3 Normal [facility] ([place]) Comment on above: Order Comment: Left lung Performed By: #### L IPID, GFR, PBNP, ADIFF, CBC, ANEU, BMP, MG #### [address] [address] BMPon 01-06-2023 BUN/Creatinine Ratio 50.0 ratio High 10.0-22.0 [facility] ([place]) Comment on above: Performed By: #### L IPID, GFR, PBNP, ADIFF, CBC, ANEU, BMP, MG #### [address] [address] Calcium [Mass/Vol] 8.3 mg/dL Low 8.7-10.4 [facility] ([place]) Comment on above: Performed By: #### L IPID, GFR, PBNP, ADIFF, CBC, ANEU, BMP, MG #### [address] [address] Chloride [Moles/Vol] 108 mmol/L Normal 98-110 [facility] ([place]) Comment on above: Performed By: #### L IPID, GFR, PBNP, ADIFF, CBC, ANEU, BMP, MG #### [address] [address] CO2 [Moles/Vol] 25 mmol/L Normal 22-32 [facility] ([place]) Comment on above: Performed By: #### L IPID, GFR, PBNP, ADIFF, CBC, ANEU, BMP, MG #### [address] [address] Creatinine [Mass/Vol] 0.44 mg/dL Low 0.50-1.20 [facility] ([place]) Comment on above: Performed By: #### L IPID, GFR, PBNP, ADIFF, CBC, ANEU, BMP, MG #### [address] [address] Electrolyte Balance 7.0 mEq/L Normal 4.0-15.0 [facility] ([place]) Comment on above: Performed By: #### L IPID, GFR, PBNP, ADIFF, CBC, ANEU, BMP, MG #### [address] [address] Glucose [Mass/Vol] 169 mg/dL High 70-110 [facility] ([place]) Comment on above: Performed By: #### L IPID, GFR, PBNP, ADIFF, CBC, ANEU, BMP, MG #### [place] [address] Potassium [Moles/Vol] 3.6 mmol/L Normal 3.5-5.0 [facility] ([place]) Comment on above: Performed By: #### L IPID, GFR, PBNP, ADIFF, CBC, ANEU, BMP, MG #### [place] [address] Sodium [Moles/Vol] 140 mmol/L Normal 136-145 [facility] ([place]) Comment on above: Performed By: #### L IPID, GFR, PBNP, ADIFF, CBC, ANEU, BMP, MG #### [place] [address] Urea nitrogen [Mass/Vol] 22.0 mg/dL Normal 8.0-22.0 [facility] ([place]) Comment on above: Performed By: #### L IPID, GFR, PBNP, ADIFF, CBC, ANEU, BMP, MG #### [place] [address] CBCon 01-06-2023 Erythrocyte distribution width (RBC) [Ratio] 14.6 % Normal 11.5-15.5 [facility] ([place]) Comment on above: Performed By: #### L IPID, GFR, PBNP, ADIFF, CBC, ANEU, BMP, MG #### [place] [address] Hematocrit (Bld) [Volume fraction] 32.4 % Low 34.0-46.0 [facility] ([place]) Comment on above: Performed By: #### L IPID, GFR, PBNP, ADIFF, CBC, ANEU, BMP, MG #### [place] [address] Hgb 10.3 G/dL Low 12.0-16.0 [facility] ([place]) Comment on above: Performed By: #### L IPID, GFR, PBNP, ADIFF, CBC, ANEU, BMP, MG #### [place] [address] MCH (RBC) [Entitic mass] 28.3 pg Normal 27.0-33.0 [facility] ([place]) Comment on above: Performed By: #### L IPID, GFR, PBNP, ADIFF, CBC, ANEU, BMP, MG #### [place] [address] MCHC 31.8 G/dL Low 32.0-36.0 [facility] ([place]) Comment on above: Performed By: #### L IPID, GFR, PBNP, ADIFF, CBC, ANEU, BMP, MG #### [place] [address] MCV (RBC) [Entitic vol] 88.9 fL Normal 80.0-99.0 [facility] ([place]) Comment on above: Performed By: #### L IPID, GFR, PBNP, ADIFF, CBC, ANEU, BMP, MG #### [place] [address] Platelet 272 10 3/mcL Normal 150-450 [facility] ([place]) Comment on above: Performed By: #### L IPID, GFR, PBNP, ADIFF, CBC, ANEU, BMP, MG #### [place] [address] Platelet mean volume (Bld) [Entitic vol] 7.3 fL Normal 6.6-10.5 [facility] ([place]) Comment on above: Performed By: #### L IPID, GFR, PBNP, ADIFF, CBC, ANEU, BMP, MG #### [place] [address] RBC 3.65 10 6/mcL Low 4.10-5.30 [facility] ([place]) Comment on above: Performed By: #### L IPID, GFR, PBNP, ADIFF, CBC, ANEU, BMP, MG #### [place] [address] WBC 14.0 10 3/mcL High 4.5-10.8 [facility] ([place]) Comment on above: Performed By: #### L IPID, GFR, PBNP, ADIFF, CBC, ANEU, BMP, MG #### [address] [address] GLUBFon 01-06-2023 Glucose BF 168.0 mg/dL Normal [facility] ([place]) Comment on above: Order Comment: Left lung Performed By: #### L IPID, GFR, PBNP, ADIFF, CBC, ANEU, BMP, MG #### [address] [address] Glucose Body Fluid Spec Type Thoracentesis Normal [facility] ([place]) Comment on above: Order Comment: Left lung Result Comment: Body Fluid received with Thoracentesis label on it and Pleural specimen source in [employer]. Specimen Source - Thoracentesis per Dena Dorantes RN. 01/06/2023 13:18:30 EDT AD The reference interval(s) and other method performance specifications have not been established for this body fluid. The test result must be integrated into the clinical content for interpretation. The reference interval(s) and other method performance specifications have not been established for this body fluid. The test result must be integrated into the clinical content for interpretation. Performed By: #### L IPID, GFR, PBNP, ADIFF, CBC, ANEU, BMP, MG #### [address] [address] LABORATORYOrdered By: Guadalupe Barboza on 01-06-2023 Appearance (U) Clear (01/06/23 4:40 PM) Invalid Interpretation Code Clear Auto Urine SS Bilirubin Ql (U) Negative (01/06/23 4:40 PM) Invalid Interpretation Code Neg-Trace AH Auto Urine SS Color (U) DARK YELLOW Invalid Interpretation Code AH Auto Urine SS Glucose Test strip (U) [Mass/Vol] Negative Invalid Interpretation Code Negativemg /dL AH Auto Urine SS Hemoglobin Auto test strip (U) [Mass/Vol] Negative (01/06/23 4:40 PM) Invalid Interpretation Code Neg-Trace AH Auto Urine SS Ketones Ql (U) Negative Invalid Interpretation Code Neg-Tracem g/dL AH Auto Urine SS UA Leuk Est Negative (01/06/23 4:40 PM) Invalid Interpretation Code Negative AH Auto Urine SS UA Nitrite Negative (01/06/23 4:40 PM) Invalid Interpretation Code Negative AH Auto Urine SS UA pH 5.5 (01/06/23 4:40 PM) Invalid Interpretation Code 5.0 - 8.0 AH Auto Urine SS UA Protein 30 mg/dL Invalid Interpretation Code Negativemg /dL Auto Urine SS UA Spec Grav >=1.030 *ABN* (01/06/23 4:40 PM) Invalid Interpretation Code 1.006-1.02 9 Auto Urine SS UA Specimen Type Clean Catch (01/06/23 4:40 PM) Invalid Interpretation Code Auto Urine SS UA Urobilinogen 1.0 E.U./dL Invalid Interpretation Code 0.2-1.0E.U ./dL Auto Urine SS LABORATORYOrdered By: SYSTEM SYSTEM on 01-06-2023 Amylase [Catalytic activity/Vol] 22 U/L Invalid Interpretation Code ADM SS Glucose (Body fld) [Mass/Vol] 168.0 mg/dL Invalid Interpretation Code ADM SS LDH (Body fld) [Catalytic activity/Vol] 151.0 1 Invalid Interpretation Code ADM SS Protein (Body fld) [Mass/Vol] 3.1 G/dL Invalid Interpretation Code ADM SS Troponin I.cardiac DL <= 0.01 ng/mL [Mass/Vol] 3.84 ng/L Invalid Interpretation Code 0.00 - 34.00 ng/L ADM SS Troponin I.cardiac DL <= 0.01 ng/mL [Mass/Vol] ng/L Invalid Interpretation Code 0.00 - 34.00 ng/L ADM SS TSH Qn 0.135 mIU/mL Invalid Interpretation Code 0.550 - 4.780 mIU/mL AH ADM SS LABORATORYOrdered By: Charli Lopez on 01-06-2023 Amylase BF Type Thoracentesis 5 (01/06/23 11:17 AM) Invalid Interpretation Code AH Chemistry S Comment on above: Result Comment: Body Fluid received with Thoracentesis label on it and Pleural specimen source in [employer]. Specimen Source - Thoracentesis per Dena Dorantes RN. 01/06/2023 13:18:30 EDT AD Glucose Body Fluid Spec Type Thoracentesis 7 (01/06/23 11:17 AM) Invalid Interpretation Code AH Chemistry S Comment on above: Result Comment: Body Fluid received with Thoracentesis label on it and Pleural specimen source in [employer]. Specimen Source - Thoracentesis per Dena Dorantes RN. 01/06/2023 13:18:30 EDT AD LDH Body Fluid Spec Type Thoracentesis 8 (01/06/23 11:17 AM) Invalid Interpretation Code Chemistry S Comment on above: Result Comment: Body Fluid received with Thoracentesis label on it and Pleural specimen source in [employer]. Specimen Source - Thoracentesis per Dena Jose E RN. 01/06/2023 13:18:30 EDT AD Nucleated RBC/100 WBC (Bld) [Ratio] 2819 % Invalid Interpretation Code Manual Heme SS Protein BF Type Thoracentesis 4 (01/06/23 11:17 AM) Invalid Interpretation Code Chemistry S Comment on above: Result Comment: Body Fluid received with Thoracentesis label on it and Pleural specimen source in [employer]. Specimen Source - Thoracentesis per Dena Jose E RN. 01/06/2023 13:18:30 EDT AD Specimen source Nom (Body fld) Thoracentesis 3 (01/06/23 11:17 AM) Invalid Interpretation Code Manual Heme SS Comment on above: Result Comment: Body Fluid received with Thoracentesis label on it and Pleural specimen source in [employer]. Specimen Source - Thoracentesis per Dena Jose E RN. 01/06/2023 13:18:30 EDT AD LABORATORYOrdered By: GILBERTO BURNETTE on 01-06-2023 Body Fluid Path Review Negative for mark gnant cells. Marked acute inflammation present. Invalid Interpretation Code Path Review Subsection Work Phone: LABORATORYOrdered By: James Francis on 01-06-2023 Cells Counted Total (Unsp spec) [#] 100 Invalid Interpretation Code Manual Heme SS Lymphocytes/100 WBC (Body fld) 2 % Invalid Interpretation Code AH Manual Heme SS Monocytes+Macrophages/ 100 WBC (Body fld) 9 1 Invalid Interpretation Code AH Manual Heme SS Neutrophils/100 WBC (Body fld) 89 % Invalid Interpretation Code Manual Heme SS LABORATORYOrdered By: Roxanne Mcgowan on 01-06-2023 pH BF 7.4 Invalid Interpretation Code AH Auto Chem SS pH BF Type Thoracentesis 6 (01/06/23 11:17 AM) Invalid Interpretation Code AH Auto Chem SS Comment on above: Result Comment: Body Fluid received with Thoracentesis label on it and Pleural specimen source in [employer]. Specimen Source - Thoracentesis per Dena Jose E RN. 01/06/2023 13:18:30 EDT AD LABORATORYOrdered By: Bertha Moctezuma on 01-06-2023 Natriuretic peptide.B prohormone N-Terminal [Mass/Vol] 272 pg/mL Invalid Interpretation Code 0 - 900 pg/mL AH Auto Chem SS LDBFon 01-06-2023 LDH BF 151.0 U/L Normal [facility] ([place]) Comment on above: Order Comment: Thora centesis left lung Performed By: #### L IPID, GFR, PBNP, ADIFF, CBC, ANEU, BMP, MG #### [address] [address] LDH Body Fluid Spec Type Thoracentesis Normal [facility] ([place]) Comment on above: Order Comment: Thora centesis left lung Result Comment: The reference interval(s) and other method performance specifications have not been established for this body fluid. The test result must be integrated into the clinical content for interpretation. . Body Fluid received with Thoracentesis label on it and Pleural specimen source in Cerner. Specimen Source - Thoracentesis per Dena Dorantes RN. 01/06/2023 13:18:30 EDT AD The reference interval(s) and other method performance specifications have not been established for this body fluid. The test result must be integrated into the clinical content for interpretation. . Performed By: #### L IPID, GFR, PBNP, ADIFF, CBC, ANEU, BMP, MG #### [address] [id number] MGon 01-06-2023 Magnesium [Mass/Vol] 1.6 mg/dL Normal 1.6-2.4 [facility] ([place]) Comment on above: Performed By: #### L IPID, GFR, PBNP, ADIFF, CBC, ANEU, BMP, MG #### [address] [address] No Panel Informationon 01-06 Culture Body Fluid Culture has been rec eived in lab and is no growth to date. Routine cultures are held for 5 days. [facility] Work Phone: GS Sedimented 3+ Polymorphonuclear cells 2+ Mononuclear cells No organisms seen. [facility] Work Phone: PBNPon 01-06-2023 Natriuretic peptide B (Bld) [Mass/Vol] 272 pg/mL Normal 0-900 [facility] ([place]) Comment on above: Result Comment: NT-p roBNP results of less than 300 pg/mL effectively rules out acute congestive heart failure with 99% negative predictive value. Performed By: #### L IPID, GFR, PBNP, ADIFF, CBC, ANEU, BMP, MG #### [place] [address] PHBFon 01-06-2023 pH BF Spec Type Thoracentesis Normal [facility] ([place]) Comment on above: Order Comment: Thora centesis left lung Result Comment: The reference interval(s) and other method performance specifications have not been established for this body fluid. The test result must be integrated into the clinical content for interpretation. Body Fluid received with Thoracentesis label on it and Pleural specimen source in Cerner. Specimen Source - Thoracentesis per Dena Dorantes RN. 01/06/2023 13:18:30 EDT AD The reference interval(s) and other method performance specifications have not been established for this body fluid. The test result must be integrated into the clinical content for interpretation. Performed By: #### L IPID, GFR, PBNP, ADIFF, CBC, ANEU, BMP, MG #### [place] [address] pH BF 7.4 Normal [facility] ([place]) Comment on above: Order Comment: Thora centesis left lung Performed By: #### L IPID, GFR, PBNP, ADIFF, CBC, ANEU, BMP, MG #### [place] [address] PROBFon 01-06-2023 Protein BF 3.1 G/dL Normal [facility] ([place]) Comment on above: Order Comment: Thora centesis fluid Performed By: #### L IPID, GFR, PBNP, ADIFF, CBC, ANEU, BMP, MG #### [place] [address] Protein BF Type Thoracentesis Normal [facility] ([place]) Comment on above: Order Comment: Thora centesis fluid Result Comment: The reference interval(s) and other method performance specifications have not been established for this body fluid. The test result must be integrated into the clinical content for interpretation. Body Fluid received with Thoracentesis label on it and Pleural specimen source in Cerner. Specimen Source - Thoracentesis per Dena Dorantes RN. 01/06/2023 13:18:30 EDT AD The reference interval(s) and other method performance specifications have not been established for this body fluid. The test result must be integrated into the clinical content for interpretation. Performed By: #### L IPID, GFR, PBNP, ADIFF, CBC, ANEU, BMP, MG #### [place] [id number] [facility] 01-06-2023 Troponin I High Sensitivity 3.84 ng/L Normal 0.00-34.00 [facility] ([place]) Comment on above: Result Comment: If t he High Sensitive Troponin result is below the 99th percentile value (<45 ng/L) at the first blood draw, at least two additional blood samples should be drawn before results are interpreted as negative for AMI. Performed By: #### T ROP #### [place] [address] Troponin I High Sensitivity <2.50 Normal 0.00-34.00 [facility] ([place]) Comment on above: Result Comment: If t he High Sensitive Troponin result is below the 99th percentile value (<45 ng/L) at the first blood draw, at least two additional blood samples should be drawn before results are interpreted as negative for AMI. Performed By: #### L IPID, GFR, PBNP, ADIFF, CBC, ANEU, BMP, MG #### [place] [address] TSHon 01-06-2023 TSH 0.135 mIU/mL Low 0.550-4.78 0 [facility] ([place]) Comment on above: Result Comment: No te - New Reference Range in effect 20 Performed By: #### L IPID, GFR, PBNP, ADIFF, CBC, ANEU, BMP, MG #### [place] [id number] UAon 01-06-2023 Color (U) DARK YELLOW Normal [facility] ([place]) Comment on above: Performed By: #### L IPID, GFR, PBNP, ADIFF, CBC, ANEU, BMP, MG #### [address] [address] Glucose (U) [Mass/Vol] Negative Normal Negative [facility] ([place]) Comment on above: Performed By: #### L IPID, GFR, PBNP, ADIFF, CBC, ANEU, BMP, MG #### [place] [address] Ketones Ql (U) Negative Normal Neg-Trace [facility] ([place]) Comment on above: Performed By: #### L IPID, GFR, PBNP, ADIFF, CBC, ANEU, BMP, MG #### [place] [address] UA Appear Clear Normal Clear [facility] ([place]) Comment on above: Performed By: #### L IPID, GFR, PBNP, ADIFF, CBC, ANEU, BMP, MG #### [place] [address] UA Blood Negative Normal Neg-Trace [facility] ([place]) Comment on above: Performed By: #### L IPID, GFR, PBNP, ADIFF, CBC, ANEU, BMP, MG #### [place] [address] UA Leuk Est Negative Normal Negative [facility] ([place]) Comment on above: Performed By: #### L IPID, GFR, PBNP, ADIFF, CBC, ANEU, BMP, MG #### [place] [address] UA Nitrite Negative Normal Negative [facility] ([place] Comment on above: Performed By: #### L IPID, GFR, PBNP, ADIFF, CBC, ANEU, BMP, MG #### [place] [address] UA pH 5.5 Normal 5.0 - 8.0 [facility] ([place]) Comment on above: Performed By: #### L IPID, GFR, PBNP, ADIFF, CBC, ANEU, BMP, MG #### [address] [address] UA Protein 30 mg/dL Normal Negative [facility] ([place]) Comment on above: Performed By: #### L IPID, GFR, PBNP, ADIFF, CBC, ANEU, BMP, MG #### [address] [address] UA Spec Grav >=1.030 Abnormal 1.006-1.02 9 [facility] ([place]) Comment on above: Performed By: #### L IPID, GFR, PBNP, ADIFF, CBC, ANEU, BMP, MG #### [address] [address] UA Specimen Type Clean Catch Normal [facility] ([place]) Comment on above: Performed By: #### L IPID, GFR, PBNP, ADIFF, CBC, ANEU, BMP, MG #### [address] [address] UA Urobilinogen 1.0 E.U./dL Normal 0.2-1.0 [facility] ([place]) Comment on above: Performed By: #### L IPID, GFR, PBNP, ADIFF, CBC, ANEU, BMP, MG #### [place] [address] Urobilinogen (U) [Mass/Vol] Negative Normal Neg-Trace [facility] ([place]) Comment on above: Performed By: #### L IPID, GFR, PBNP, ADIFF, CBC, ANEU, BMP, MG #### [place] [address] XR CHEST 1 VIEWon 01-06-2023 XR CHEST 1 VIEW ORIGINAL EXAMINATION: ONE XRAY VIEW OF THE [...] Sign Date: 01/06/2023 12:20:37 PM Ordering Provider: ROSA LIZ [facility] ([place]) XR CHEST 1 VIEW ORIGINAL EXAMINATION: ONE XRAY VIEW OF THE [...] Sign Date: 01/06/2023 12:15:56 PM Ordering Provider: SHANDA ELLIOTT [facility]) Absolute lymphocyte countOrd ered By: Wayne Germain on 01-05-2023 Lymphocytes Auto (Unsp spec) [#/Vol] 1.04 10*3/uL 0.83-4.51 [facility] Basophil percentageOrdered B y: Waynevanessa Germain on 01-05-2023 Basophils/100 WBC (Bld) 0.4 % 0-1 [facility] Chloride [Moles/Vol] 107 mmol/L 98-107 [facility] Eosinophils/100 WBC (Bld) 2.3 % 0-5 [facility] Glucose [Mass/Vol] 172 mg/dL 74-106 [facility] Comment on above: Fasting Glucose resu lt greater than or equal to 126 mg/dL suggests DIABETES MELLITUS per A.D.A. criteria. Neutrophils (Bld) [#/Vol] 7.9 10*3/uL 2.0-7.7 [facility] Neutrophils/100 WBC (Bld) 76.7 % 47-70 [facility] Potassium [Moles/Vol] 3.5 mmol/L 3.5-5.1 [facility] Sodium [Moles/Vol] 139 mmol/L 136-145 [facility] WBC (Bld) [#/Vol] 10.3 10*3/uL 4.4-11.0 [facility] Blood erythrocytes count (nu mber/volume)Ordered By: Wayne Germain on 01-05-2023 RBC (Bld) [#/Vol] 3.87 10*6/uL 4.2-5.4 [facility] Blood hemoglobin measurement (mass/volume)Ordered By: Wayne Germain on 01-05-2023 Hemoglobin (Bld) [Mass/Vol] 11.0 g/dL 12.0-15.0 [facility] Blood lymphocytes/100 leukoc ytesOrdered By: Wayne Germain on 01-05-2023 Lymphocytes/100 WBC (Bld) 10.1 % 19-41 [facility] Blood monocytes/100 leukocyt esOrdered By: Wayne Germain on 01-05-2023 Monocytes/100 WBC (Bld) 10.0 % 0-10 [facility] Blood platelet mean volumeOr dered By: Wayne Germain on 01-05-2023 Platelet mean volume (Bld) [Entitic vol] 9.6 fL 6.2-12.0 [facility] Determination of erythrocyte mean corpuscular volume (MCV)Ordered By: Wayne Germain on 01-05-2023 MCV (RBC) [Entitic vol] 89.9 fL 81-99 [facility] Hematocrit Auto (Bld) [Volum e fraction]Ordered By: Wayne Germain on 01-05-2023 Hematocrit (Bld) [Volume fraction] 34.8 % 37-47 [facility] Laboratory - Chemistry and C hemistry - challengeOrdered By: Wayne Germain on 01-05-2023 CO2 [Moles/Vol] 27.0 mmol/L 21.0-32.0 [facility] Natriuretic peptide B (Bld) [Mass/Vol] 45.4 pg/mL 0-100 [facility] Urea nitrogen/Creatinine [Mass ratio] 29.9 mg/mg 10-20 [facility] Laboratory - Hematology and Cell countsOrdered By: Wayne Germain on 01-05-2023 Erythrocyte distribution width (RBC) [Entitic vol] 45.4 fL 35.1-43.9 [facility] Erythrocyte distribution width (RBC) [Ratio] 13.9 % 11.6-14.6 [facility] Immature granulocytes/100 WBC (Bld) 0.500 % 0.0-0.9 [facility] Comment on above: IG% - Immature Granu locytes (promyelocytes, myelocytes and metamyelocytes) > 1% indicates that a LEFT SHIFT is Present. MCH (RBC) [Entitic mass] 28.4 pg 27.0-32.0 [facility] Nucleated RBC/100 WBC (Bld) [Ratio] 0 % 0-5 [facility] MCHC Auto (RBC) [Mass/Vol]Or dered By: Wayne Germain on 01-05-2023 MCHC (RBC) [Mass/Vol] 31.6 g/dL 32-36 [facility] No Panel InformationOrdered By: Wayne Germain on 01-05-2023 D-Dimer Quantitative (PE/DVT) 5.70 FEU/ug/m 0.27-0.49 [facility] Comment on above: D-Dimer ELEVATED (>0 .49): Additional studies and clinicalassessments are indicated to conclude diagnosis of:Deep Vein Thrombosis (DVT) or Pulmonary Embolism (PE)CRITICAL VALUE VERIFIED. CALLED TO [id number] [facility]4 Lynne Barrientos.RESULTS READ BACK BY SAME . Estimated Creatinine Clearance Calc 83.51 ml/min [facility] Estimated GFR (MDRD) Amer 131 mL/min >60 [facility] Comment on above: GFR Calc Estimated GFR (MDRD) Non-Af Amer 108 mL/min >60 [facility] Comment on above: Non- GFR Calc Troponin I High Sensitivity 6 pg/mL 3.0-54.0 [facility] Comment on above: Please Note: [place] t Units and Gender Specific Reference Ranges. For more information see Policy Stat Procedure [place] High Sensitivity Troponin (TNIH) and attachments. Platelets bldOrdered By: Jasson Germain on 01-05-2023 Platelets (Bld) [#/Vol] 278 10*3/uL 150-450 [facility] Serum or plasma calcium jasiel urement (mass/volume)Ordered By: Wayne Germain on 01-05-2023 Calcium [Mass/Vol] 9.1 mg/dL 8.5-10.1 [facility] Serum or plasma creatinine m easurement (mass/volume)Ordered By: Wayne Germain on 01-05-2023 Creatinine [Mass/Vol] 0.60 mg/dL 0.55-1.02 [facility] Comment on above: The validity of the calculated GFR & GFRAA in patients over 70 years has not been determined. Clinical correlation is essential. Serum or plasma urea nitroge n measurement (mass/volume)Ordered By: Wayne Germain on 01-05-2023 Urea nitrogen [Mass/Vol] 18 mg/dL 7-18 [facility] Thin prep Papanicolaou smear with manual screeningOrdered By: Wayne Germain on 01-05-2023 Thin prep Papanicolaou smear with manual screening 5 5-15 [facility] Absolute lymphocyte countOrd ered By: Becca Nelson on 01-03-2023 Lymphocytes Auto (Unsp spec) [#/Vol] 1.81 10*3/uL 0.83-4.51 [facility] Basophil percentageOrdered B y: Becca Nelson on 01-03-2023 Basophils/100 WBC (Bld) 0.4 % 0-1 [facility] Chloride [Moles/Vol] 110 mmol/L 98-107 [facility] Eosinophils/100 WBC (Bld) 2.9 % 0-5 [facility] Glucose [Mass/Vol] 130 mg/dL 74-106 [facility] Comment on above: Fasting Glucose resu lt greater than or equal to 126 mg/dL suggests DIABETES MELLITUS per A.D.A. criteria. Neutrophils (Bld) [#/Vol] 6.1 10*3/uL 2.0-7.7 [facility] Neutrophils/100 WBC (Bld) 66.6 % 47-70 [facility] Potassium [Moles/Vol] 3.8 mmol/L 3.5-5.1 [facility] Sodium [Moles/Vol] 141 mmol/L 136-145 [facility] WBC (Bld) [#/Vol] 9.2 10*3/uL 4.4-11.0 [facility] Blood erythrocytes count (nu mber/volume)Ordered By: Becca Nelson on 01-03-2023 RBC (Bld) [#/Vol] 3.89 10*6/uL 4.2-5.4 [facility] Blood hemoglobin measurement (mass/volume)Ordered By: Becca Nelson on 01-03-2023 Hemoglobin (Bld) [Mass/Vol] 11.3 g/dL 12.0-15.0 [facility] Blood lymphocytes/100 leukoc ytesOrdered By: Becca Nelson on 01-03-2023 Lymphocytes/100 WBC (Bld) 19.6 % 19-41 [facility] Blood monocytes/100 leukocyt esOrdered By: Becca Nelson on 01-03-2023 Monocytes/100 WBC (Bld) 10.2 % 0-10 [facility] Blood platelet mean volumeOr dered By: Becca Nelson on 01-03-2023 Platelet mean volume (Bld) [Entitic vol] 9.4 fL 6.2-12.0 [facility] Determination of erythrocyte mean corpuscular volume (MCV)Ordered By: Becca Nelson on 01-03-2023 MCV (RBC) [Entitic vol] 91.5 fL 81-99 [facility] Hematocrit Auto (Bld) [Volum e fraction]Ordered By: Becca Nelson on 01-03-2023 Hematocrit (Bld) [Volume fraction] 35.6 % 37-47 [facility] Laboratory - Chemistry and C hemistry - challengeOrdered By: Becca Nelson on 01-03-2023 CO2 [Moles/Vol] 28.0 mmol/L 21.0-32.0 [facility] Urea nitrogen/Creatinine [Mass ratio] 34.5 mg/mg 10-20 [facility] Laboratory - Hematology and Cell countsOrdered By: Becca Nelson on 01-03-2023 Erythrocyte distribution width (RBC) [Entitic vol] 46.7 fL 35.1-43.9 [facility] Erythrocyte distribution width (RBC) [Ratio] 13.9 % 11.6-14.6 [facility] Immature granulocytes/100 WBC (Bld) 0.300 % 0.0-0.9 [facility] Comment on above: IG% - Immature Granu locytes (promyelocytes, myelocytes and metamyelocytes) > 1% indicates that a LEFT SHIFT is Present. MCH (RBC) [Entitic mass] 29.0 pg 27.0-32.0 [facility] Nucleated RBC/100 WBC (Bld) [Ratio] 0 % 0-5 [facility] MCHC Auto (RBC) [Mass/Vol]Or dered By: Becca Nelson on 01-03-2023 MCHC (RBC) [Mass/Vol] 31.7 g/dL 32-36 [facility] No Panel InformationOrdered By: Becca Nelson on 01-03-2023 Estimated Creatinine Clearance Calc 91.10 ml/min [facility] Estimated GFR (MDRD) Amer 145 mL/min >60 [facility] Comment on above: GFR Calc Estimated GFR (MDRD) Non-Af Amer 120 mL/min >60 [facility] Comment on above: Non- GFR Calc Troponin I High Sensitivity 6 pg/mL 3.0-54.0 [facility] Comment on above: Please Note: [place] t Units and Gender Specific Reference Ranges. For more information see Policy Stat Procedure [place] High Sensitivity Troponin (TNIH) and attachments. Platelets bldOrdered By: Jessi Nelson on 01-03-2023 Platelets (Bld) [#/Vol] 242 10*3/uL 150-450 [facility] Serum or plasma calcium jasiel urement (mass/volume)Ordered By: Becca Nelson on 01-03-2023 Calcium [Mass/Vol] 9.2 mg/dL 8.5-10.1 [facility] Serum or plasma creatinine m easurement (mass/volume)Ordered By: Becca Nelson on 01-03-2023 Creatinine [Mass/Vol] 0.55 mg/dL 0.55-1.02 [facility] Comment on above: The validity of the calculated GFR & GFRAA in patients over 70 years has not been determined. Clinical correlation is essential. Serum or plasma urea nitroge n measurement (mass/volume)Ordered By: Becca Nelson on 01-03-2023 Urea nitrogen [Mass/Vol] 19 mg/dL 7-18 [facility] Thin prep Papanicolaou smear with manual screeningOrdered By: Becca Omar on 01-03-2023 Thin prep Papanicolaou smear with manual screening 3 5-15 [facility] Absolute lymphocyte countOrd ered By: Diana Ramos on 01-01-2023 Lymphocytes Auto (Unsp spec) [#/Vol] 1.75 10*3/uL 0.83-4.51 [facility] Basophil percentageOrdered B y: Diana Ramos on 01-01-2023 Basophils/100 WBC (Bld) 0.4 % 0-1 [facility] Bilirubin [Mass/Vol] 0.30 mg/dL 0.20-1.00 [facility] Comment on above: For patients on eltr ombopag therapy, use of Dimension [place] TBIL is not recommended. Chloride [Moles/Vol] 109 mmol/L 98-107 [facility] Eosinophils/100 WBC (Bld) 2.3 % 0-5 [facility] Glucose [Mass/Vol] 131 mg/dL 74-106 [facility] Comment on above: Fasting Glucose resu lt greater than or equal to 126 mg/dL suggests DIABETES MELLITUS per A.D.A. criteria. Neutrophils (Bld) [#/Vol] 6.2 10*3/uL 2.0-7.7 [facility] Neutrophils/100 WBC (Bld) 69.4 % 47-70 [facility] Potassium [Moles/Vol] 3.8 mmol/L 3.5-5.1 [facility] Protein [Mass/Vol] 7.4 g/dL 6.4-8.2 [facility] Sodium [Moles/Vol] 141 mmol/L 136-145 [facility] WBC (Bld) [#/Vol] 9.0 10*3/uL 4.4-11.0 [facility] Blood erythrocytes count (nu mber/volume)Ordered By: Diana Ramos on 01-01-2023 RBC (Bld) [#/Vol] 3.95 10*6/uL 4.2-5.4 [facility] Blood hemoglobin measurement (mass/volume)Ordered By: Diana Ramos on 01-01-2023 Hemoglobin (Bld) [Mass/Vol] 11.3 g/dL 12.0-15.0 [facility] Blood lymphocytes/100 leukoc ytesOrdered By: Diana Ramos on 01-01-2023 Lymphocytes/100 WBC (Bld) 19.5 % 19-41 [facility] Blood monocytes/100 leukocyt esOrdered By: Diana Ramos on 01-01-2023 Monocytes/100 WBC (Bld) 8.0 % 0-10 [facility] Blood platelet mean volumeOr dered By: Diana Ramos on 01-01-2023 Platelet mean volume (Bld) [Entitic vol] 9.8 fL 6.2-12.0 [facility] Determination of erythrocyte mean corpuscular volume (MCV)Ordered By: Diana Ramos on 01-01-2023 MCV (RBC) [Entitic vol] 92.2 fL 81-99 [facility] Hematocrit Auto (Bld) [Volum e fraction]Ordered By: Diana Ramos on 01-01-2023 Hematocrit (Bld) [Volume fraction] 36.4 % 37-47 [facility] Laboratory - Chemistry and C hemistry - challengeOrdered By: Diana Ramos on 01-01-2023 ALP [Catalytic activity/Vol] 85 U/L 45-117 [facility] ALT [Catalytic activity/Vol] 24 U/L 13-56 [facility] CO2 [Moles/Vol] 26.0 mmol/L 21.0-32.0 [facility] Globulin (S) [Mass/Vol] 4.7 g/dL 2.2-4.2 [facility] Urea nitrogen/Creatinine [Mass ratio] 37.5 mg/mg 10-20 [facility] Laboratory - Hematology and Cell countsOrdered By: Diana Ramos on 01-01-2023 Erythrocyte distribution width (RBC) [Entitic vol] 47.6 fL 35.1-43.9 [facility] Erythrocyte distribution width (RBC) [Ratio] 13.9 % 11.6-14.6 [facility] Immature granulocytes/100 WBC (Bld) 0.400 % 0.0-0.9 [facility] Comment on above: IG% - Immature Granu locytes (promyelocytes, myelocytes and metamyelocytes) > 1% indicates that a LEFT SHIFT is Present. MCH (RBC) [Entitic mass] 28.6 pg 27.0-32.0 [facility] Nucleated RBC/100 WBC (Bld) [Ratio] 0 % 0-5 [facility] MCHC Auto (RBC) [Mass/Vol]Or dered By: Diana Ramos on 01-01-2023 MCHC (RBC) [Mass/Vol] 31.0 g/dL 32-36 [facility] No Panel InformationOrdered By: Diana Ramos on 01-01-2023 Estimated GFR (MDRD) Amer 135 mL/min >60 [facility] Comment on above: GFR Calc Estimated GFR (MDRD) Non-Af Amer 111 mL/min >60 [facility] Comment on above: Non- GFR Calc Platelets bldOrdered By: Katarina Ramos on 01-01-2023 Platelets (Bld) [#/Vol] 245 10*3/uL 150-450 [facility] Serum or plasma albumin jasiel urement (mass/volume)Ordered By: Diana Ramos on 01-01-2023 Albumin [Mass/Vol] 2.7 g/dL 3.2-5.0 [facility] Serum or plasma albumin/glob ulin mass ratioOrdered By: Diana Ramos on 01-01-2023 Albumin/Globulin [Mass ratio] 0.6 {ratio} 0.9-2.4 [facility] Serum or plasma calcium jasiel urement (mass/volume)Ordered By: Diana Ramos on 01-01-2023 Calcium [Mass/Vol] 9.0 mg/dL 8.5-10.1 [facility] Serum or plasma creatinine m easurement (mass/volume)Ordered By: Diana Ramos on 01-01-2023 Creatinine [Mass/Vol] 0.59 mg/dL 0.55-1.02 [facility] Comment on above: The validity of the calculated GFR & GFRAA in patients over 70 years has not been determined. Clinical correlation is essential. Serum or plasma urea nitroge n measurement (mass/volume)Ordered By: Diana Ramos on 01-01-2023 Urea nitrogen [Mass/Vol] 22 mg/dL 7-18 [facility] [place] Thin prep Papanicolaou smear with manual screeningOrdered By: Diana Ramos on 01-01-2023 Thin prep Papanicolaou smear with manual screening 16 U/L 15-37 [facility] [place] Thin prep Papanicolaou smear with manual screening 6 5-15 [facility] [place] Absolute lymphocyte countOrd ered By: Dr. Ramos on 10-27-2022 Lymphocytes Auto (Unsp spec) [#/Vol] 1.60 10*3/uL 0.83-4.51 [facility] [place] Basophil percentageOrdered B y: Dr. Ramos on 10-27-2022 Basophils/100 WBC (Bld) 0.6 % 0-1 [facility] [place] Bilirubin [Mass/Vol] 0.30 mg/dL 0.20-1.00 [facility] Comment on above: For patients on eltr ombopag therapy, use of Dimension [place] TBIL is not recommended. Chloride [Moles/Vol] 108 mmol/L 98-107 [facility] Eosinophils/100 WBC (Bld) 5.5 % 0-5 [facility] [place] Glucose [Mass/Vol] 119 mg/dL 74-106 [facility] Comment on above: Fasting Glucose resu lt from 100 to 125 mg/dL suggests IMPAIRED HOMEOSTASIS per A.D.A. criteria. Neutrophils (Bld) [#/Vol] 4.2 10*3/uL 2.0-7.7 [facility] [place] Neutrophils/100 WBC (Bld) 61.7 % 47-70 [facility] [place] Potassium [Moles/Vol] 4.1 mmol/L 3.5-5.1 [facility] Protein [Mass/Vol] 7.4 g/dL 6.4-8.2 [facility] Sodium [Moles/Vol] 139 mmol/L 136-145 [facility] WBC (Bld) [#/Vol] 6.9 10*3/uL 4.4-11.0 [facility] Blood erythrocytes count (nu mber/volume)Ordered By: Dr. Ramos on 10-27-2022 RBC (Bld) [#/Vol] 4.61 10*6/uL 4.2-5.4 [facility] Blood hemoglobin measurement (mass/volume)Ordered By: Dr. Ramos on 10-27-2022 Hemoglobin (Bld) [Mass/Vol] 13.5 g/dL 12.0-15.0 [facility] [place] Blood lymphocytes/100 leukoc ytesOrdered By: Dr. Ramos on 10-27-2022 Lymphocytes/100 WBC (Bld) 23.4 % 19-41 [facility] [place] Blood monocytes/100 leukocyt esOrdered By: Dr. Ramos on 10-27-2022 Monocytes/100 WBC (Bld) 8.5 % 0-10 [facility] [place] Blood platelet mean volumeOr dered By: Dr. Ramos on 10-27-2022 Platelet mean volume (Bld) [Entitic vol] 11.3 fL 6.2-12.0 [facility] [place] Determination of erythrocyte mean corpuscular volume (MCV)Ordered By: Dr. Ramos on 10-27-2022 MCV (RBC) [Entitic vol] 90.2 fL 81-99 [facility] [place] Hematocrit Auto (Bld) [Volum e fraction]Ordered By: Dr. Ramos on 10-27-2022 Hematocrit (Bld) [Volume fraction] 41.6 % 37-47 [facility] [place] Laboratory - Chemistry and C hemistry - challengeOrdered By: Dr. Ramos on 10-27-2022 ALP [Catalytic activity/Vol] 90 U/L 45-117 [facility] [place] ALT [Catalytic activity/Vol] 24 U/L 13-56 [facility] [place] CO2 [Moles/Vol] 27.0 mmol/L 21.0-32.0 [facility] [place] Globulin (S) [Mass/Vol] 3.9 g/dL 2.2-4.2 [facility] [place] Urea nitrogen/Creatinine [Mass ratio] 25.0 mg/mg 10-20 [facility] [place] Laboratory - Hematology and Cell countsOrdered By: Dr. Ramos on 10-27-2022 Erythrocyte distribution width (RBC) [Entitic vol] 46.2 fL 35.1-43.9 [facility] [place] Erythrocyte distribution width (RBC) [Ratio] 13.9 % 11.6-14.6 [facility] [place] Immature granulocytes/100 WBC (Bld) 0.300 % 0.0-0.9 [facility] [place] Comment on above: IG% - Immature Granu locytes (promyelocytes, myelocytes and metamyelocytes) > 1% indicates that a LEFT SHIFT is Present. MCH (RBC) [Entitic mass] 29.3 pg 27.0-32.0 [facility] [place] Nucleated RBC/100 WBC (Bld) [Ratio] 0 % 0-5 [facility] [place] MCHC Auto (RBC) [Mass/Vol]Or dered By: Dr. Ramos on 10-27-2022 MCHC (RBC) [Mass/Vol] 32.5 g/dL 32-36 [facility] No Panel InformationOrdered By: Dr. Ramos on 10-27-2022 Estimated GFR (MDRD) Amer 95 mL/min >60 [facility] [place] Comment on above: GFR Calc Estimated GFR (MDRD) Non-Af Amer 78 mL/min >60 [facility] [place] Comment on above: Non- GFR Calc Platelets bldOrdered By: Dr. Ramos on 10-27-2022 Platelets (Bld) [#/Vol] 171 10*3/uL 150-450 [facility] [place] Serum or plasma albumin jasiel urement (mass/volume)Ordered By: Dr. Ramos on 10-27-2022 Albumin [Mass/Vol] 3.5 g/dL 3.2-5.0 [facility] Serum or plasma albumin/glob ulin mass ratioOrdered By: Dr. Ramos on 10-27-2022 Albumin/Globulin [Mass ratio] 0.9 {ratio} 0.9-2.4 [facility] [place] Serum or plasma calcium jasiel urement (mass/volume)Ordered By: Dr. Ramos on 10-27-2022 Calcium [Mass/Vol] 9.2 mg/dL 8.5-10.1 [facility] Serum or plasma creatinine m easurement (mass/volume)Ordered By: Dr. Ramos on 10-27-2022 Creatinine [Mass/Vol] 0.80 mg/dL 0.55-1.02 [facility] Comment on above: The validity of the calculated GFR & GFRAA in patients over 70 years has not been determined. Clinical correlation is essential. Serum or plasma urea nitroge n measurement (mass/volume)Ordered By: Dr. Ramos on 10-27-2022 Urea nitrogen [Mass/Vol] 20 mg/dL 7-18 [facility] [place] Thin prep Papanicolaou smear with manual screeningOrdered By: Dr. Ramos on 10-27-2022 Thin prep Papanicolaou smear with manual screening 18 U/L 15-37 [facility] [place] Thin prep Papanicolaou smear with manual screening 4 5-15 [facility] [place] Whole blood hemoglobin A1c/t otal hemoglobin ratio (mass fraction)Ordered By: Dr. Swift on 09-16-2022 HbA1c (Bld) [Mass fraction] 7.4 % 3.8-5.6 [facility] [place] Comment on above: Normal < 5.7 % Predi abetic 5.7 - 6.4 % Diabetic >or= 6.5 % Please note range changes. Basophil percentageOrdered B y: Dr. Arizmendi on 08-10-2022 Chloride [Moles/Vol] 109 mmol/L 98-107 [facility] Cholesterol [Mass/Vol] 161 mg/dL <200 [facility] Comment on above: <200 mg/dL Desirable 200-240 mg/dL Borderline >240 mg/dL High Risk Glucose [Mass/Vol] 144 mg/dL 74-106 [facility] Comment on above: Fasting Glucose resu lt greater than or equal to 126 mg/dL suggests DIABETES MELLITUS per A.D.A. criteria. Potassium [Moles/Vol] 4.4 mmol/L 3.5-5.1 [facility] Sodium [Moles/Vol] 140 mmol/L 136-145 [facility] Triglyceride [Mass/Vol] 127 mg/dL <199 [facility] [place] Comment on above: The drugs N-Acetylcy steine and Metamizole may falsely depress this assay.Serum Triglycerides Reference Interval Normal <150 mg/dL Borderline high 150 - 199 mg/dL High 200 - 499 mg/dL Very High > or = 500 mg/dL Laboratory - Chemistry and C hemistry - challengeOrdered By: Dr. Arizmendi on 08-10-2022 CO2 [Moles/Vol] 26.0 mmol/L 21.0-32.0 [facility] Free T4 [Mass/Vol] 1.21 ng/dL 0.76-1.46 [facility] Urea nitrogen/Creatinine [Mass ratio] 32.9 mg/mg 10-20 [facility] [place] No Panel InformationOrdered By: Dr. Arizmendi on 08-10-2022 Estimated GFR (MDRD) Amer 122 mL/min >60 [facility] [place] Comment on above: GFR Calc Estimated GFR (MDRD) Non-Af Amer 101 mL/min >60 [facility] [place] Comment on above: Non- GFR Calc Free Triiodothyronine (T3) pg/dL 2.2 pg/mL 2.18-3.98 [facility] [place] Thyroid Stimulating Hormone (TSH) 1.84 uIU/mL 0.358-3.74 [facility] [place] Serum or plasma calcium jasiel urement (mass/volume)Ordered By: Dr. Arizmendi on 08-10-2022 Calcium [Mass/Vol] 9.1 mg/dL 8.5-10.1 [facility] Serum or plasma cholesterol in HDL measurement (mass/volume)Ordered By: Dr. Arizmendi on 08-10-2022 Cholesterol in HDL [Mass/Vol] 57 mg/dL >40 [facility] [place] Comment on above: The drugs N-Acetylcy steine and Metamizole may falsely depress this assay. Reference Range HDL <40 mg/dL Low HDL Cholesterol HDL >or= 60 mg/dL High HDL Cholesterol Serum or plasma cholesterol in VLDL measurement (mass/volume)Ordered By: Dr. Arizmendi on 08-10-2022 Cholesterol in VLDL [Mass/Vol] 25 mg/dL 5-40 [facility] [place] Serum or plasma creatinine m easurement (mass/volume)Ordered By: Dr. Arizmendi on 08-10-2022 Creatinine [Mass/Vol] 0.64 mg/dL 0.55-1.02 [facility] Comment on above: The validity of the calculated GFR & GFRAA in patients over 70 years has not been determined. Clinical correlation is essential. Serum or plasma low density lipoprotein (LDL) cholesterol measurement (mass/volume)Ordered By: Dr. Arizmendi on 08-10-2022 Cholesterol in LDL [Mass/Vol] 79 mg/dL 0-130 [facility] [place] Serum or plasma urea nitroge n measurement (mass/volume)Ordered By: Dr. Arizmendi on 08-10-2022 Urea nitrogen [Mass/Vol] 21 mg/dL 7-18 [facility] [place] Thin prep Papanicolaou smear with manual screeningOrdered By: Dr. Arizmendi on 08-10-2022 Thin prep Papanicolaou smear with manual screening 5 5-15 [facility] [place] Absolute lymphocyte countOrd ered By: Dr. Ramos on 08-03-2022 Lymphocytes Auto (Unsp spec) [#/Vol] 1.48 10*3/uL 0.83-4.51 [facility] [place] Basophil percentageOrdered B y: Dr. Ramos on 08-03-2022 Basophils/100 WBC (Bld) 0.8 % 0-1 [facility] [place] Bilirubin [Mass/Vol] 0.30 mg/dL 0.20-1.00 [facility] Comment on above: For patients on eltr ombopag therapy, use of Dimension [place] TBIL is not recommended. Chloride [Moles/Vol] 105 mmol/L 98-107 [facility] Eosinophils/100 WBC (Bld) 0.8 % 0-5 [facility] [place] Glucose [Mass/Vol] 142 mg/dL 74-106 [facility] Comment on above: Fasting Glucose resu lt greater than or equal to 126 mg/dL suggests DIABETES MELLITUS per A.D.A. criteria. Neutrophils (Bld) [#/Vol] 5.2 10*3/uL 2.0-7.7 [facility] [place] Neutrophils/100 WBC (Bld) 71.5 % 47-70 [facility] [place] Potassium [Moles/Vol] 4.5 mmol/L 3.5-5.1 [facility] Protein [Mass/Vol] 7.9 g/dL 6.4-8.2 [facility] Sodium [Moles/Vol] 138 mmol/L 136-145 [facility] WBC (Bld) [#/Vol] 7.3 10*3/uL 4.4-11.0 [facility] Blood erythrocytes count (nu mber/volume)Ordered By: Dr. Ramos on 08-03-2022 RBC (Bld) [#/Vol] 4.76 10*6/uL 4.2-5.4 [facility] Blood hemoglobin measurement (mass/volume)Ordered By: Dr. Ramos on 08-03-2022 Hemoglobin (Bld) [Mass/Vol] 14.0 g/dL 12.0-15.0 [facility] [place] Blood lymphocytes/100 leukoc ytesOrdered By: Dr. Ramos on 08-03-2022 Lymphocytes/100 WBC (Bld) 20.3 % 19-41 [facility] [place] Blood monocytes/100 leukocyt esOrdered By: Dr. Ramos on 08-03-2022 Monocytes/100 WBC (Bld) 6.5 % 0-10 [facility] [place] Blood platelet mean volumeOr dered By: Dr. Ramos on 08-03-2022 Platelet mean volume (Bld) [Entitic vol] 10.5 fL 6.2-12.0 [facility] [place] Determination of erythrocyte mean corpuscular volume (MCV)Ordered By: Dr. Ramos on 08-03-2022 MCV (RBC) [Entitic vol] 90.5 fL 81-99 [facility] [place] Hematocrit Auto (Bld) [Volum e fraction]Ordered By: Dr. Ramos on 08-03-2022 Hematocrit (Bld) [Volume fraction] 43.1 % 37-47 [facility] [place] Laboratory - Chemistry and C hemistry - challengeOrdered By: Dr. Ramos on 08-03-2022 ALP [Catalytic activity/Vol] 95 U/L 45-117 [facility] [place] ALT [Catalytic activity/Vol] 15 U/L 13-56 [facility] [place] CO2 [Moles/Vol] 27.0 mmol/L 21.0-32.0 [facility] [place] Globulin (S) [Mass/Vol] 4.5 g/dL 2.2-4.2 [facility] [place] Urea nitrogen/Creatinine [Mass ratio] 31.5 mg/mg 10-20 [facility] [place] Laboratory - Hematology and Cell countsOrdered By: Dr. Ramos on 08-03-2022 Erythrocyte distribution width (RBC) [Entitic vol] 46.4 fL 35.1-43.9 [facility] [place] Erythrocyte distribution width (RBC) [Ratio] 13.9 % 11.6-14.6 [facility] [place] Immature granulocytes/100 WBC (Bld) 0.100 % 0.0-0.9 [facility] [place] Comment on above: IG% - Immature Granu locytes (promyelocytes, myelocytes and metamyelocytes) > 1% indicates that a LEFT SHIFT is Present. MCH (RBC) [Entitic mass] 29.4 pg 27.0-32.0 [facility] [place] Nucleated RBC/100 WBC (Bld) [Ratio] 0 % 0-5 [facility] [place] MCHC Auto (RBC) [Mass/Vol]Or dered By: Dr. Ramos on 08-03-2022 MCHC (RBC) [Mass/Vol] 32.5 g/dL 32-36 [facility] No Panel InformationOrdered By: Dr. Ramos on 08-03-2022 Estimated GFR (MDRD) Amer 91 mL/min >60 [facility] [place] Comment on above: GFR Calc Estimated GFR (MDRD) Non-Af Amer 75 mL/min >60 [facility] [place] Comment on above: Non- GFR Calc Platelets bldOrdered By: Dr. Ramos on 08-03-2022 Platelets (Bld) [#/Vol] 219 10*3/uL 150-450 [facility] [place] Serum or plasma albumin jasiel urement (mass/volume)Ordered By: Dr. Ramos on 08-03-2022 Albumin [Mass/Vol] 3.4 g/dL 3.2-5.0 [facility] Serum or plasma albumin/glob ulin mass ratioOrdered By: Dr. Ramos on 08-03-2022 Albumin/Globulin [Mass ratio] 0.8 {ratio} 0.9-2.4 [facility] [place] Serum or plasma calcium jasiel urement (mass/volume)Ordered By: Dr. Ramos on 08-03-2022 Calcium [Mass/Vol] 9.9 mg/dL 8.5-10.1 [facility] Serum or plasma creatinine m easurement (mass/volume)Ordered By: Dr. Ramos on 08-03-2022 Creatinine [Mass/Vol] 0.82 mg/dL 0.55-1.02 [facility] Comment on above: The validity of the calculated GFR & GFRAA in patients over 70 years has not been determined. Clinical correlation is essential. Serum or plasma urea nitroge n measurement (mass/volume)Ordered By: Dr. Ramos on 08-03-2022 Urea nitrogen [Mass/Vol] 26 mg/dL 7-18 [facility] [place] Thin prep Papanicolaou smear with manual screeningOrdered By: Dr. Ramos on 08-03-2022 Thin prep Papanicolaou smear with manual screening 11 U/L 15-37 [facility] [place] Thin prep Papanicolaou smear with manual screening 6 5-15 [facility] [place] Basophil percentageOrdered B y: Dr. Olsen on 06-17-2022 Bilirubin [Mass/Vol] 0.30 mg/dL 0.20-1.00 [facility] Comment on above: For patients on eltr ombopag therapy, use of Dimension [place] TBIL is not recommended. Cholesterol [Mass/Vol] 158 mg/dL <200 [facility] Comment on above: <200 mg/dL Desirable 200-240 mg/dL Borderline >240 mg/dL High Risk Protein [Mass/Vol] 7.8 g/dL 6.4-8.2 [facility] Triglyceride [Mass/Vol] 270 mg/dL <199 [facility] [place] Comment on above: The drugs N-Acetylcy steine and Metamizole may falsely depress this assay.Serum Triglycerides Reference Interval Normal <150 mg/dL Borderline high 150 - 199 mg/dL High 200 - 499 mg/dL Very High > or = 500 mg/dL Direct bilirubinOrdered By: Dr. Olsen on 06-17-2022 Bilirubin.direct [Mass/Vol] 0.10 mg/dL 0.00-0.30 [facility] [place] Laboratory - Chemistry and C hemistry - challengeOrdered By: Dr. Olsen on 06-17-2022 ALP [Catalytic activity/Vol] 97 U/L 45-117 [facility] [place] ALT [Catalytic activity/Vol] 17 U/L 13-56 [facility] [place] Globulin (S) [Mass/Vol] 4.5 g/dL 2.2-4.2 [facility] [place] No Panel InformationOrdered By: Dr. Jefferson on 06-17-2022 Thyroid Stimulating Hormone (TSH) 5.80 uIU/mL 0.358-3.74 [facility] [place] Serum or plasma albumin jasiel urement (mass/volume)Ordered By: Dr. Olsen on 06-17-2022 Albumin [Mass/Vol] 3.3 g/dL 3.2-5.0 [facility] Serum or plasma cholesterol in HDL measurement (mass/volume)Ordered By: Dr. Olsen on 06-17-2022 Cholesterol in HDL [Mass/Vol] 53 mg/dL >40 [facility] [place] Comment on above: The drugs N-Acetylcy steine and Metamizole may falsely depress this assay. Reference Range HDL <40 mg/dL Low HDL Cholesterol HDL >or= 60 mg/dL High HDL Cholesterol Serum or plasma cholesterol in VLDL measurement (mass/volume)Ordered By: Dr. Olsen on 06-17-2022 Cholesterol in VLDL [Mass/Vol] 54 mg/dL 5-40 [facility] [place] Serum or plasma low density lipoprotein (LDL) cholesterol measurement (mass/volume)Ordered By: Dr. Olsen on 06-17-2022 Cholesterol in LDL [Mass/Vol] 51 mg/dL 0-130 [facility] [place] Thin prep Papanicolaou smear with manual screeningOrdered By: Dr. Olsne on 06-17-2022 Thin prep Papanicolaou smear with manual screening 11 U/L 15-37 [facility] [place] Absolute lymphocyte countOrd ered By: Dr. Ramos on 05-11-2022 Lymphocytes Auto (Unsp spec) [#/Vol] 2.04 10*3/uL 0.83-4.51 [facility] [place] Basophil percentageOrdered B y: Dr. Ramos on 05-11-2022 Basophils/100 WBC (Bld) 0.9 % 0-1 [facility] [place] Bilirubin [Mass/Vol] 0.30 mg/dL 0.20-1.00 [facility] Comment on above: For patients on eltr ombopag therapy, use of Dimension [place] TBIL is not recommended. Chloride [Moles/Vol] 107 mmol/L 98-107 [facility] Eosinophils/100 WBC (Bld) 5.0 % 0-5 [facility] [place] Glucose [Mass/Vol] 133 mg/dL 74-106 [facility] Comment on above: Fasting Glucose resu lt greater than or equal to 126 mg/dL suggests DIABETES MELLITUS per A.D.A. criteria. Neutrophils (Bld) [#/Vol] 3.8 10*3/uL 2.0-7.7 [facility] [place] Neutrophils/100 WBC (Bld) 56.2 % 47-70 [facility] [place] Potassium [Moles/Vol] 3.6 mmol/L 3.5-5.1 [facility] Protein [Mass/Vol] 7.4 g/dL 6.4-8.2 [facility] Sodium [Moles/Vol] 139 mmol/L 136-145 [facility] WBC (Bld) [#/Vol] 6.8 10*3/uL 4.4-11.0 [facility] Blood erythrocytes count (nu mber/volume)Ordered By: Dr. Ramos on 05-11-2022 RBC (Bld) [#/Vol] 4.58 10*6/uL 4.2-5.4 [facility] Blood hemoglobin measurement (mass/volume)Ordered By: Dr. Ramos on 05-11-2022 Hemoglobin (Bld) [Mass/Vol] 13.5 g/dL 12.0-15.0 [facility] [place] Blood lymphocytes/100 leukoc ytesOrdered By: Dr. Ramos on 05-11-2022 Lymphocytes/100 WBC (Bld) 30.0 % 19-41 [facility] [place] Blood monocytes/100 leukocyt esOrdered By: Dr. Ramos on 05-11-2022 Monocytes/100 WBC (Bld) 7.6 % 0-10 [facility] [place] Blood platelet mean volumeOr dered By: Dr. Ramos on 05-11-2022 Platelet mean volume (Bld) [Entitic vol] 10.4 fL 6.2-12.0 [facility] [place] Determination of erythrocyte mean corpuscular volume (MCV)Ordered By: Dr. Ramos on 05-11-2022 MCV (RBC) [Entitic vol] 92.6 fL 81-99 [facility] [place] Hematocrit Auto (Bld) [Volum e fraction]Ordered By: Dr. Ramos on 05-11-2022 Hematocrit (Bld) [Volume fraction] 42.4 % 37-47 [facility] [place] Laboratory - Chemistry and C hemistry - challengeOrdered By: Dr. Ramos on 05-11-2022 ALP [Catalytic activity/Vol] 90 U/L 45-117 [facility] [place] ALT [Catalytic activity/Vol] 15 U/L 13-56 [facility] [place] CO2 [Moles/Vol] 26.0 mmol/L 21.0-32.0 [facility] [place] Globulin (S) [Mass/Vol] 4.1 g/dL 2.2-4.2 [facility] [place] Urea nitrogen/Creatinine [Mass ratio] 29.1 mg/mg 10-20 [facility] [place] Laboratory - Hematology and Cell countsOrdered By: Dr. Ramos on 05-11-2022 Erythrocyte distribution width (RBC) [Entitic vol] 48.6 fL 35.1-43.9 [facility] [place] Erythrocyte distribution width (RBC) [Ratio] 14.2 % 11.6-14.6 [facility] [place] Immature granulocytes/100 WBC (Bld) 0.300 % 0.0-0.9 [facility] [place] Comment on above: IG% - Immature Granu locytes (promyelocytes, myelocytes and metamyelocytes) > 1% indicates that a LEFT SHIFT is Present. MCH (RBC) [Entitic mass] 29.5 pg 27.0-32.0 [facility] [place] Nucleated RBC/100 WBC (Bld) [Ratio] 0 % 0-5 [facility] [place] MCHC Auto (RBC) [Mass/Vol]Or dered By: Dr. Ramos on 05-11-2022 MCHC (RBC) [Mass/Vol] 31.8 g/dL 32-36 [facility] No Panel InformationOrdered By: Dr. Ramos on 05-11-2022 Estimated GFR (MDRD) Amer 120 mL/min >60 [facility] [place] Comment on above: GFR Calc Estimated GFR (MDRD) Non-Af Amer 99 mL/min >60 [facility] [place] Comment on above: Non- GFR Calc Platelets bldOrdered By: Dr. Ramos on 05-11-2022 Platelets (Bld) [#/Vol] 215 10*3/uL 150-450 [facility] [place] Serum or plasma albumin jasiel urement (mass/volume)Ordered By: Dr. Rmaos on 05-11-2022 Albumin [Mass/Vol] 3.3 g/dL 3.2-5.0 [facility] Serum or plasma albumin/glob ulin mass ratioOrdered By: Dr. Ramos on 05-11-2022 Albumin/Globulin [Mass ratio] 0.8 {ratio} 0.9-2.4 [facility] [place] Serum or plasma calcium jasiel urement (mass/volume)Ordered By: Dr. Ramos on 05-11-2022 Calcium [Mass/Vol] 9.1 mg/dL 8.5-10.1 [facility] Serum or plasma creatinine m easurement (mass/volume)Ordered By: Dr. Ramos on 05-11-2022 Creatinine [Mass/Vol] 0.65 mg/dL 0.55-1.02 [facility] Comment on above: The validity of the calculated GFR & GFRAA in patients over 70 years has not been determined. Clinical correlation is essential. Serum or plasma urea nitroge n measurement (mass/volume)Ordered By: Dr. Ramos on 05-11-2022 Urea nitrogen [Mass/Vol] 19 mg/dL 7-18 [facility] [place] Thin prep Papanicolaou smear with manual screeningOrdered By: Dr. Ramos on 05-11-2022 Thin prep Papanicolaou smear with manual screening 13 U/L 15 [facility] [place] Thin prep Papanicolaou smear with manual screening 6 5-15 [facility] [place] Serum or plasma calcium jasiel urement (mass/volume)Ordered By: Roxana Hickey on 04-28-2022 Calcium [Mass/Vol] 9.7 mg/dL 8.5-10.1 [facility] Serum or plasma calcium jasiel urement (mass/volume)on 04-15-2022 Calcium [Mass/Vol] 9.2 mg/dL 8.5-10.1 [facility] Work Phone: Basophil percentageon 2021 Basophil percentage 2.4 mg/dL 2.5-4.9 [facility] Work Phone: Chloride [Moles/Vol] 111 mmol/L 98-107 [facility] Work Phone: Glucose [Mass/Vol] 127 mg/dL 74-106 [facility] Work Phone: Comment on above: Fasting Glucose resu lt greater than or equal to 126 mg/dL suggests DIABETES MELLITUS per A.D.A. criteria. Potassium [Moles/Vol] 4.3 mmol/L 3.5-5.1 [facility] Work Phone: Sodium [Moles/Vol] 141 mmol/L 136-145 [facility] Work Phone: WBC (Bld) [#/Vol] 7.5 10*3/uL 4.4-11.0 [facility] Work Phone: Blood erythrocytes count (nu mber/volume)on 04-11-2022 RBC (Bld) [#/Vol] 4.59 10*6/uL 4.2-5.4 [facility] Work Phone: Blood hemoglobin measurement (mass/volume)on 04-11-2022 Hemoglobin (Bld) [Mass/Vol] 13.5 g/dL 12.0-15.0 [facility] Work Phone: Blood platelet mean volumeon 04-11-2022 Platelet mean volume (Bld) [Entitic vol] 10.0 fL 6.2-12.0 [facility] Work Phone: Determination of erythrocyte mean corpuscular volume (MCV)on 04-11-2022 MCV (RBC) [Entitic vol] 91.7 fL 81-99 [facility] Work Phone: Hematocrit Auto (Bld) [Volum e fraction]on 04-11-2022 Hematocrit (Bld) [Volume fraction] 42.1 % 37-47 [facility] Work Phone: Laboratory - Chemistry and C hemistry - challengeon 04-11-2022 CO2 [Moles/Vol] 27.0 mmol/L 21.0-32.0 [facility] Work Phone: Magnesium [Mass/Vol] 2.2 mg/dL 1.6-2.6 [facility] Work Phone: Urea nitrogen/Creatinine [Mass ratio] 29.2 mg/mg 10-20 [facility] Work Phone: Laboratory - Hematology and Cell countson 04-11-2022 Erythrocyte distribution width (RBC) [Entitic vol] 47.1 fL 35.1-43.9 [facility] Work Phone: Erythrocyte distribution width (RBC) [Ratio] 14.1 % 11.6-14.6 [facility] Work Phone: MCH (RBC) [Entitic mass] 29.4 pg 27.0-32.0 [facility] Work Phone: MCHC Auto (RBC) [Mass/Vol]on 04-11-2022 MCHC (RBC) [Mass/Vol] 32.1 g/dL 32-36 [facility] Work Phone: No Panel Informationon 04-11 Estimated GFR (MDRD) Amer 120 mL/min >60 [facility] Work Phone: Comment on above: GFR Calc Estimated GFR (MDRD) Non-Af Amer 99 mL/min >60 [facility] Work Phone: Comment on above: Non- GFR Calc Thyroid Stimulating Hormone (TSH) 1.31 uIU/mL 0.358-3.74 [facility] Work Phone: Platelets bldon 04-11-2022 Platelets (Bld) [#/Vol] 206 10*3/uL 150-450 [facility] Work Phone: Serum or plasma calcium jasiel urement (mass/volume)on 04-11-2022 Calcium [Mass/Vol] 9.3 mg/dL 8.5-10.1 [facility] Work Phone: Serum or plasma creatinine m easurement (mass/volume)on 04-11-2022 Creatinine [Mass/Vol] 0.65 mg/dL 0.55-1.02 [facility] Work Phone: Comment on above: The validity of the calculated GFR & GFRAA in patients over 70 years has not been determined. Clinical correlation is essential. Serum or plasma urea nitroge n measurement (mass/volume)on 04-11-2022 Urea nitrogen [Mass/Vol] 19 mg/dL 7-18 [facility] Work Phone: Thin prep Papanicolaou smear with manual screeningon 04-11-2022 Thin prep Papanicolaou smear with manual screening 3 5-15 [facility] Work Phone: Basophil percentageon 2021 Chloride [Moles/Vol] 110 mmol/L 98-107 [facility] Work Phone: Glucose [Mass/Vol] 108 mg/dL 74-106 [facility] Work Phone: Comment on above: Fasting Glucose resu lt from 100 to 125 mg/dL suggests IMPAIRED HOMEOSTASIS per A.D.A. criteria. Potassium [Moles/Vol] 4.1 mmol/L 3.5-5.1 [facility] Work Phone: Sodium [Moles/Vol] 144 mmol/L 136-145 [facility] Work Phone: WBC (Bld) [#/Vol] 6.8 10*3/uL 4.4-11.0 [facility] Work Phone: Blood erythrocytes count (nu mber/volume)on 03-17-2022 RBC (Bld) [#/Vol] 4.81 10*6/uL 4.2-5.4 [facility] Work Phone: Blood hemoglobin measurement (mass/volume)on 03-17-2022 Hemoglobin (Bld) [Mass/Vol] 14.0 g/dL 12.0-15.0 [facility] Work Phone: Blood platelet mean volumeon 03-17-2022 Platelet mean volume (Bld) [Entitic vol] 9.5 fL 6.2-12.0 [facility] Work Phone: Determination of erythrocyte mean corpuscular volume (MCV)on 03-17-2022 MCV (RBC) [Entitic vol] 90.4 fL 81-99 [facility] Work Phone: Hematocrit Auto (Bld) [Volum e fraction]on 03-17-2022 Hematocrit (Bld) [Volume fraction] 43.5 % 37-47 [facility] Work Phone: INR in Blood by Coagulation assayon 03-17-2022 INR Coag (Bld) [Relative time] 1.0 {INR} [facility] Work Phone: Laboratory - Chemistry and C hemistry - challengeon 03-17-2022 CO2 [Moles/Vol] 31.0 mmol/L 21.0-32.0 [facility] Work Phone: Urea nitrogen/Creatinine [Mass ratio] 20.9 mg/mg 04-16 [facility] Work Phone: Laboratory - Coagulationon 0 03-17-2022 aPTT Coag (Bld) [Time] 25.3 s 24.1-36.2 [facility] Work Phone: PT Coag (PPP) [Time] 12.4 s 11.7-14.9 [facility] Work Phone: Laboratory - Hematology and Cell countson 03-17-2022 Erythrocyte distribution width (RBC) [Entitic vol] 47.3 fL 35.1-43.9 [facility] Work Phone: Erythrocyte distribution width (RBC) [Ratio] 14.2 % 11.6-14.6 [facility] Work Phone: MCH (RBC) [Entitic mass] 29.1 pg 27.0-32.0 [facility] Work Phone: MCHC Auto (RBC) [Mass/Vol]on 03-17-2022 MCHC (RBC) [Mass/Vol] 32.2 g/dL 32-36 [facility] Work Phone: No Panel Informationon 03-17 Estimated Creatinine Clearance Calc 71.04 ml/min [facility] Work Phone: Estimated GFR (MDRD) Amer 126 mL/min >60 [facility] Work Phone: Comment on above: GFR Calc Estimated GFR (MDRD) Non-Af Amer 104 mL/min >60 [facility] Work Phone: Comment on above: Non- GFR Calc Platelets bldon 03-17-2022 Platelets (Bld) [#/Vol] 212 10*3/uL 150-450 [facility] Work Phone: Serum or plasma calcium jasiel urement (mass/volume)on 03-17-2022 Calcium [Mass/Vol] 9.9 mg/dL 8.5-10.1 [facility] Work Phone: Serum or plasma creatinine m easurement (mass/volume)on 03-17-2022 Creatinine [Mass/Vol] 0.62 mg/dL 0.55-1.02 [facility] Work Phone: Comment on above: The validity of the calculated GFR & GFRAA in patients over 70 years has not been determined. Clinical correlation is essential. Serum or plasma urea nitroge n measurement (mass/volume)on 03-17-2022 Urea nitrogen [Mass/Vol] 13 mg/dL 7-18 [facility] Work Phone: Thin prep Papanicolaou smear with manual screeningon 03-17-2022 Thin prep Papanicolaou smear with manual screening 3 5-15 [facility] Work Phone: Absolute lymphocyte counton 02-04-2022 Lymphocytes Auto (Unsp spec) [#/Vol] 1.83 10*3/uL 0.83-4.51 [facility] Work Phone: Basophil percentageon 2021 Basophils/100 WBC (Bld) 0.7 % 0-1 [facility] Work Phone: Bilirubin [Mass/Vol] 0.30 mg/dL 0.20-1.00 [facility] Work Phone: Comment on above: For patients on eltr ombopag therapy, use of Dimension [place] TBIL is not recommended. Chloride [Moles/Vol] 110 mmol/L 98-107 [facility] Work Phone: Eosinophils/100 WBC (Bld) 6.0 % 0-5 [facility] Work Phone: [phone] Glucose [Mass/Vol] 121 mg/dL 74-106 [facility] Work Phone: Comment on above: Fasting Glucose resu lt from 100 to 125 mg/dL suggests IMPAIRED HOMEOSTASIS per A.D.A. criteria. Neutrophils (Bld) [#/Vol] 4.3 10*3/uL 2.0-7.7 [facility] Work Phone: [phone] Neutrophils/100 WBC (Bld) 58.7 % 47-70 [facility] Work Phone: Potassium [Moles/Vol] 4.1 mmol/L 3.5-5.1 [facility] Work Phone: Protein [Mass/Vol] 7.4 g/dL 6.4-8.2 [facility] Work Phone: Sodium [Moles/Vol] 142 mmol/L 136-145 [facility] Work Phone: WBC (Bld) [#/Vol] 7.3 10*3/uL 4.4-11.0 [facility] Work Phone: Blood erythrocytes count (nu mber/volume)on 02-04-2022 RBC (Bld) [#/Vol] 4.52 10*6/uL 4.2-5.4 [facility] Work Phone: Blood hemoglobin measurement (mass/volume)on 02-04-2022 Hemoglobin (Bld) [Mass/Vol] 13.0 g/dL 12.0-15.0 [facility] Work Phone: Blood lymphocytes/100 leukoc yteson 02-04-2022 Lymphocytes/100 WBC (Bld) 24.9 % 19-41 [facility] Work Phone: Blood monocytes/100 leukocyt eson 02-04-2022 Monocytes/100 WBC (Bld) 9.3 % 0-10 [facility] Work Phone: Blood platelet mean volumeon 02-04-2022 Platelet mean volume (Bld) [Entitic vol] 10.8 fL 6.2-12.0 [facility] Work Phone: Determination of erythrocyte mean corpuscular volume (MCV)on 02-04-2022 MCV (RBC) [Entitic vol] 91.8 fL 81-99 [facility] Work Phone: Hematocrit Auto (Bld) [Volum e fraction]on 02-04-2022 Hematocrit (Bld) [Volume fraction] 41.5 % 37-47 [facility] Work Phone: Laboratory - Chemistry and C hemistry - challengeon 02-04-2022 ALP [Catalytic activity/Vol] 84 U/L 45-117 [facility] Work Phone: ALT [Catalytic activity/Vol] 13 U/L 13-56 [facility] Work Phone: CO2 [Moles/Vol] 27.0 mmol/L 21.0-32.0 [facility] Work Phone: Globulin (S) [Mass/Vol] 4.2 g/dL 2.2-4.2 [facility] Work Phone: Urea nitrogen/Creatinine [Mass ratio] 35.5 mg/mg 10-20 [facility] Work Phone: Laboratory - Hematology and Cell countson 02-04-2022 Erythrocyte distribution width (RBC) [Entitic vol] 48.0 fL 35.1-43.9 [facility] Work Phone: Erythrocyte distribution width (RBC) [Ratio] 14.2 % 11.6-14.6 [facility] Work Phone: Immature granulocytes/100 WBC (Bld) 0.400 % 0.0-0.9 [facility] Work Phone: Comment on above: IG% - Immature Granu locytes (promyelocytes, myelocytes and metamyelocytes) > 1% indicates that a LEFT SHIFT is Present. MCH (RBC) [Entitic mass] 28.8 pg 27.0-32.0 [facility] Work Phone: Nucleated RBC/100 WBC (Bld) [Ratio] 0 % 0-5 [facility] Work Phone: MCHC Auto (RBC) [Mass/Vol]on 02-04-2022 MCHC (RBC) [Mass/Vol] 31.3 g/dL 32-36 [facility] Work Phone: No Panel Informationon 02-04 Estimated GFR (MDRD) Amer 121 mL/min >60 [facility] Work Phone: Comment on above: GFR Calc Estimated GFR (MDRD) Non-Af Amer 100 mL/min >60 [facility] Work Phone: Comment on above: Non- GFR Calc Platelets bldon 02-04-2022 Platelets (Bld) [#/Vol] 180 10*3/uL 150-450 [facility] Work Phone: Serum or plasma albumin jasiel urement (mass/volume)on 02-04-2022 Albumin [Mass/Vol] 3.2 g/dL 3.2-5.0 [facility] Work Phone: Serum or plasma albumin/glob ulin mass ratioon 02-04-2022 Albumin/Globulin [Mass ratio] 0.8 {ratio} 0.9-2.4 [facility] Work Phone: Serum or plasma calcium jasiel urement (mass/volume)on 02-04-2022 Calcium [Mass/Vol] 9.1 mg/dL 8.5-10.1 [facility] Work Phone: Serum or plasma creatinine m easurement (mass/volume)on 02-04-2022 Creatinine [Mass/Vol] 0.65 mg/dL 0.55-1.02 [facility] Work Phone: Comment on above: The validity of the calculated GFR & GFRAA in patients over 70 years has not been determined. Clinical correlation is essential. Serum or plasma urea nitroge n measurement (mass/volume)on 02-04-2022 Urea nitrogen [Mass/Vol] 23 mg/dL 7-18 [facility] Work Phone: Thin prep Papanicolaou smear with manual screeningon 02-04-2022 Thin prep Papanicolaou smear with manual screening 13 U/L 15-37 [facility] Work Phone: Thin prep Papanicolaou smear with manual screening 5 5-15 [facility] Work Phone: Absolute lymphocyte counton 10-17-2021 Lymphocytes Auto (Unsp spec) [#/Vol] 1.37 10*3/uL 0.83-4.51 [facility] Work Phone: Basophil percentageon 2021 Basophils/100 WBC (Bld) 0.8 % 0-1 [facility] Work Phone: Bilirubin [Mass/Vol] 0.40 mg/dL 0.20-1.00 [facility] Work Phone: Comment on above: For patients on eltr ombopag therapy, use of Dim[place] TBIL is not recommended. Chloride [Moles/Vol] 110 mmol/L 98-107 [facility] Work Phone: [phone] Eosinophils/100 WBC (Bld) 3.9 % 0-5 [facility] Work Phone: Glucose [Mass/Vol] 119 mg/dL 74-106 [facility] Work Phone: [phone] Comment on above: Fasting Glucose resu lt from 100 to 125 mg/dL suggests IMPAIRED HOMEOSTASIS per A.D.A. criteria. Neutrophils (Bld) [#/Vol] 4.5 10*3/uL 2.0-7.7 [facility] Work Phone: Neutrophils/100 WBC (Bld) 67.4 % 47-70 [facility] Work Phone: [phone] Potassium [Moles/Vol] 4.5 mmol/L 3.5-5.1 [facility] Work Phone: Protein [Mass/Vol] 7.9 g/dL 6.4-8.2 [facility] Work Phone: Sodium [Moles/Vol] 138 mmol/L 136-145 [facility] Work Phone: WBC (Bld) [#/Vol] 6.6 10*3/uL 4.4-11.0 [facility] Work Phone: Blood erythrocytes count (nu mber/volume)on 10-17-2021 RBC (Bld) [#/Vol] 5.03 10*6/uL 4.2-5.4 [facility] Work Phone: Blood hemoglobin measurement (mass/volume)on 10-17-2021 Hemoglobin (Bld) [Mass/Vol] 14.6 g/dL 12.0-15.0 [facility] Work Phone: Blood lymphocytes/100 leukoc yteson 10-17-2021 Lymphocytes/100 WBC (Bld) 20.7 % 19-41 [facility] Work Phone: [phone] Blood monocytes/100 leukocyt eson 10-17-2021 Monocytes/100 WBC (Bld) 6.9 % 0-10 [facility] Work Phone: Blood platelet mean volumeon 10-17-2021 Platelet mean volume (Bld) [Entitic vol] 10.4 fL 6.2-12.0 [facility] Work Phone: Determination of erythrocyte mean corpuscular volume (MCV)on 10-17-2021 MCV (RBC) [Entitic vol] 89.3 fL 81-99 [facility] Work Phone: Hematocrit Auto (Bld) [Volum e fraction]on 10-17-2021 Hematocrit (Bld) [Volume fraction] 44.9 % 37-47 [facility] Work Phone: Laboratory - Chemistry and C hemistry - challengeon 10-17-2021 ALP [Catalytic activity/Vol] 87 U/L 45-117 [facility] Work Phone: ALT [Catalytic activity/Vol] 16 U/L 13-56 [facility] Work Phone: CO2 [Moles/Vol] 24.0 mmol/L 21.0-32.0 [facility] Work Phone: Globulin (S) [Mass/Vol] 4.5 g/dL 2.2-4.2 [facility] Work Phone: Urea nitrogen/Creatinine [Mass ratio] 33.9 mg/mg 10-20 [facility] Work Phone: Laboratory - Hematology and Cell countson 10-17-2021 Erythrocyte distribution width (RBC) [Entitic vol] 46.2 fL 35.1-43.9 [facility] Work Phone: Erythrocyte distribution width (RBC) [Ratio] 14.1 % 11.6-14.6 [facility] Work Phone: Immature granulocytes/100 WBC (Bld) 0.300 % 0.0-0.9 [facility] Work Phone: Comment on above: IG% - Immature Granu locytes (promyelocytes, myelocytes and metamyelocytes) > 1% indicates that a LEFT SHIFT is Present. MCH (RBC) [Entitic mass] 29.0 pg 27.0-32.0 [facility] Work Phone: Nucleated RBC/100 WBC (Bld) [Ratio] 0 % 0-5 [facility] Work Phone: MCHC Auto (RBC) [Mass/Vol]on 10-17-2021 MCHC (RBC) [Mass/Vol] 32.5 g/dL 32-36 [facility] Work Phone: No Panel Informationon 10-17 Estimated GFR (MDRD) Amer 121 mL/min >60 [facility] Work Phone: Comment on above: GFR Calc Estimated GFR (MDRD) Non-Af Amer 100 mL/min >60 [facility] Work Phone: Comment on above: Non- GFR Calc Platelets bldon 10-17-2021 Platelets (Bld) [#/Vol] 197 10*3/uL 150-450 [facility] Work Phone: Serum or plasma albumin jasiel urement (mass/volume)on 10-17-2021 Albumin [Mass/Vol] 3.4 g/dL 3.2-5.0 [facility] Work Phone: Serum or plasma albumin/glob ulin mass ratioon 10-17-2021 Albumin/Globulin [Mass ratio] 0.8 {ratio} 0.9-2.4 [facility] Work Phone: Serum or plasma calcium jasiel urement (mass/volume)on 10-17-2021 Calcium [Mass/Vol] 9.3 mg/dL 8.5-10.1 [facility] Work Phone: Serum or plasma creatinine m easurement (mass/volume)on 10-17-2021 Creatinine [Mass/Vol] 0.65 mg/dL 0.55-1.02 [facility] Work Phone: Comment on above: The validity of the calculated GFR & GFRAA in patients over 70 years has not been determined. Clinical correlation is essential. Serum or plasma urea nitroge n measurement (mass/volume)on 10-17-2021 Urea nitrogen [Mass/Vol] 22 mg/dL 7-18 [facility] Work Phone: Thin prep Papanicolaou smear with manual screeningon 10-17-2021 Thin prep Papanicolaou smear with manual screening 14 U/L 15-37 [facility] Work Phone: Thin prep Papanicolaou smear with manual screening 4 5-15 [facility] Work Phone: Absolute lymphocyte counton 08-05-2021 Lymphocytes Auto (Unsp spec) [#/Vol] 1.92 10*3/uL 0.83-4.51 [facility] Work Phone: Basophil percentageon 2021 Basophils/100 WBC (Bld) 1.1 % 0-1 [facility] Work Phone: Bilirubin [Mass/Vol] 0.30 mg/dL 0.20-1.00 [facility] Work Phone: [phone] Comment on above: For patients on eltr ombopag therapy, use of Dim[place] TBIL is not recommended. Chloride [Moles/Vol] 108 mmol/L 98-107 [facility] Work Phone: Eosinophils/100 WBC (Bld) 5.3 % 0-5 [facility] Work Phone: Glucose [Mass/Vol] 103 mg/dL 74-106 [facility] Work Phone: Comment on above: Fasting Glucose resu lt from 100 to 125 mg/dL suggests IMPAIRED HOMEOSTASIS per A.D.A. criteria. Neutrophils (Bld) [#/Vol] 3.7 10*3/uL 2.0-7.7 [facility] Work Phone: Neutrophils/100 WBC (Bld) 56.6 % 47-70 [facility] Work Phone: Potassium [Moles/Vol] 4.3 mmol/L 3.5-5.1 [facility] Work Phone: [phone] Protein [Mass/Vol] 7.2 g/dL 6.4-8.2 [facility] Work Phone: Sodium [Moles/Vol] 141 mmol/L 136-145 [facility] Work Phone: WBC (Bld) [#/Vol] 6.6 10*3/uL 4.4-11.0 [facility] Work Phone: Blood erythrocytes count (nu mber/volume)on 08-05-2021 RBC (Bld) [#/Vol] 4.76 10*6/uL 4.2-5.4 [facility] Work Phone: Blood hemoglobin measurement (mass/volume)on 08-05-2021 Hemoglobin (Bld) [Mass/Vol] 14.0 g/dL 12.0-15.0 [facility] Work Phone: [phone] Blood lymphocytes/100 leukoc yteson 02-08-2022 Lymphocytes/100 WBC (Bld) 29.1 % 19-41 [facility] Work Phone: Blood monocytes/100 leukocyt eson 08-05-2021 Monocytes/100 WBC (Bld) 7.6 % 0-10 [facility] Work Phone: Blood platelet mean volumeon 08-05-2021 Platelet mean volume (Bld) [Entitic vol] 10.0 fL 6.2-12.0 [facility] Work Phone: Determination of erythrocyte mean corpuscular volume (MCV)on 08-05-2021 MCV (RBC) [Entitic vol] 89.9 fL 81-99 [facility] Work Phone: [phone] Hematocrit Auto (Bld) [Volum e fraction]on 08-05-2021 Hematocrit (Bld) [Volume fraction] 42.8 % 37-47 [facility] Work Phone: Laboratory - Chemistry and C hemistry - challengeon 08-05-2021 ALP [Catalytic activity/Vol] 92 U/L 45-117 [facility] Work Phone: ALT [Catalytic activity/Vol] 15 U/L 13-56 [facility] Work Phone: CO2 [Moles/Vol] 25.0 mmol/L 21.0-32.0 [facility] Work Phone: Globulin (S) [Mass/Vol] 3.8 g/dL 2.2-4.2 [facility] Work Phone: Urea nitrogen/Creatinine [Mass ratio] 29.7 mg/mg 10-20 [facility] Work Phone: Laboratory - Hematology and Cell countson 08-05-2021 Erythrocyte distribution width (RBC) [Entitic vol] 44.1 fL 35.1-43.9 [facility] Work Phone: Erythrocyte distribution width (RBC) [Ratio] 13.2 % 11.6-14.6 [facility] Work Phone: Immature granulocytes/100 WBC (Bld) 0.300 % 0.0-0.9 [facility] Work Phone: Comment on above: IG% - Immature Granu locytes (promyelocytes, myelocytes and metamyelocytes) > 1% indicates that a LEFT SHIFT is Present. MCH (RBC) [Entitic mass] 29.4 pg 27.0-32.0 [facility] Work Phone: Nucleated RBC/100 WBC (Bld) [Ratio] 0 % 0-5 [facility] Work Phone: MCHC Auto (RBC) [Mass/Vol]on 08-05-2021 MCHC (RBC) [Mass/Vol] 32.7 g/dL 32-36 [facility] Work Phone: No Panel Informationon 08-05 Estimated GFR (MDRD) Amer 109 mL/min >60 [facility] Work Phone: Comment on above: GFR Calc Estimated GFR (MDRD) Non-Af Amer 90 mL/min >60 [facility] [place] Work Phone: Comment on above: Non- GFR Calc Platelets bldon 08-05-2021 Platelets (Bld) [#/Vol] 211 10*3/uL 150-450 [facility] Work Phone: Serum or plasma albumin jasiel urement (mass/volume)on 08-05-2021 Albumin [Mass/Vol] 3.4 g/dL 3.2-5.0 [facility] Work Phone: Serum or plasma albumin/glob ulin mass ratioon 08-05-2021 Albumin/Globulin [Mass ratio] 0.9 {ratio} 0.9-2.4 [facility] [place] Work Phone: Serum or plasma calcium jasiel urement (mass/volume)on 08-05-2021 Calcium [Mass/Vol] 8.9 mg/dL 8.5-10.1 [facility] Work Phone: Serum or plasma creatinine m easurement (mass/volume)on 08-05-2021 Creatinine [Mass/Vol] 0.71 mg/dL 0.55-1.02 [facility] Work Phone: Comment on above: The validity of the calculated GFR & GFRAA in patients over 70 years has not been determined. Clinical correlation is essential. Serum or plasma urea nitroge n measurement (mass/volume)on 08-05-2021 Urea nitrogen [Mass/Vol] 21 mg/dL 7-18 [facility] Work Phone: Thin prep Papanicolaou smear with manual screeningon 08-05-2021 Thin prep Papanicolaou smear with manual screening 11 U/L 15-37 [facility] [place] Work Phone: Thin prep Papanicolaou smear with manual screening 8 5-15 [facility] Work Phone: Culture, urine Bacteria identified Cx Nom (U) Klebsiella pneumoniae sp pneum [facility] [place] Work Phone: Vital Signs Date Time Vital Sign Value Performing Clinician Facility 01-14-2025 10:03-0400 Body height 157.[address] Nehemias Arizmendi MD Work Phone: [facility] 01-14-2025 10:03-0400 Body mass index (BMI) [Ratio] 36.7 kg/m2 Dr. Nehemias Arizmendi MD Work Phone: [facility] 01-14-2025 10:03-0400 Body temperature 98 [degF] Dr. Nehemias Arizmendi MD Work Phone: [facility] 01-14-2025 10:03-0400 Body weight 91.[address] Nehemias Arizmendi MD Work Phone: [facility] 01-14-2025 10:03-0400 Diastolic blood pressure 72 mm[Hg] Dr. Nehemias Arizmendi MD Work Phone: [facility] 01-14-2025 10:03-0400 Heart rate 110 /min Dr. Nehemias Arizmendi MD Work Phone: [facility] 01-14-2025 10:03-0400 Respiratory rate 16 /min Dr. Nehemias Arizmendi MD Work Phone: [facility] 01-14-2025 10:03-0400 SaO2% (BldA) [Mass fraction] 99 % Dr. Nehemias Arizmendi MD Work Phone: [facility] 01-14-2025 10:03-0400 Systolic blood pressure 110 mm[Hg] Dr. Nehemias Arizmendi MD Work Phone: 4(750)230-694740 [place] [address] 10-23-2024 14:35-0400 Body temperature 98 [degF] Dr. Nehemias Arizmendi MD Work Phone: 2(192)083-622340 [place] [address] 10-23-2024 14:35-0400 Diastolic blood pressure 63 mm[Hg] Dr. Nehemias Arizmendi MD Work Phone: 4(138)910-784240 [place] [address] 10-23-2024 14:35-0400 Heart rate 86 /min Dr. Nehemias Arizmendi MD Work Phone: 6(517)655-070940 [place] [address] 10-23-2024 14:35-0400 Inhaled oxygen flow rate 2 L/min Dr. Nehemias Arizmendi MD Work Phone: 7(615)848-583240 [place] [address] 10-23-2024 14:35-0400 Respiratory rate 18 /min Dr. Nehemias Arizmendi MD Work Phone: 0(959)399-750407 [address] 10-23-2024 14:35-0400 SaO2% (BldA) [Mass fraction] 94 % Dr. Nehemias Arizmendi MD Work Phone: 3(120)855-039929 [place] [address] 10-23-2024 14:35-0400 Systolic blood pressure 103 mm[Hg] Dr. Nehemias Arizmendi MD Work Phone: 2(743)104-848529 [place] [address] 10-22-2024 00:55-0400 Inhaled oxygen concentration 40 % Dr. Nehemias Arizmendi MD Work Phone: 2(275)634-241107 [address] 10-18-2024 23:10-0400 Body height 157.[address] Nehemias Arizmendi MD Work Phone: 0(694)528-720140 [place] [address] 10-18-2024 23:10-0400 Body mass index (BMI) [Ratio] 39.6 kg/m2 Dr. Nehemias Arizmendi MD Work Phone: 4(493)267-223229 [place] [address] 10-18-2024 23:10-0400 Body weight 98.[address] Nehemias Arizmendi MD Work Phone: [facility] 10-18-2024 21:14-0400 Heart rate 106 /min Dr. Nehemias Arizmendi MD Work Phone: [facility] 10-18-2024 21:14-0400 Inhaled oxygen flow rate 2 L/min Dr. Nehemias Arizmendi MD Work Phone: [facility] 10-18-2024 21:14-0400 Respiratory rate 21 /min Dr. Nehemias Arizmendi MD Work Phone: [facility] 10-18-2024 21:14-0400 SaO2% (BldA) [Mass fraction] 94 % Dr. Nehemias Arizmendi MD Work Phone: [facility] 10-18-2024 21:11-0400 Body temperature 98.5 [degF] Dr. Nehemias Arizmendi MD Work Phone: [facility] 10-18-2024 20:06-0400 Diastolic blood pressure 66 mm[Hg] Dr. Nehemias Arizmendi MD Work Phone: [facility] 10-18-2024 20:06-0400 Systolic blood pressure 98 mm[Hg] Dr. Nehemias Arizmendi MD Work Phone: [facility] 01-09-2023 13:40-0400 Heart rate 99 /min ARIANA RIVAS MD [facility] 01-09-2023 13:35-0400 Heart rate 102 /min ARIANA RIVAS MD [facility] 01-09-2023 13:03-0400 Heart rate 88 /min ARIANA RIVAS MD [facility] 01-09-2023 13:03-0400 Respiratory rate 20 /min ARIANA RIVAS MD [facility] 01-09-2023 13:01-0400 Heart rate 89 /min ARIANA RIVAS MD [address] [place] [address] 01-09-2023 10:59-0400 Body temperature 98.24 [degF] ARIANA RIVAS MD [address] [place] [address] 01-09-2023 10:59-0400 Diastolic Blood Pressure Non-Invasive 86 1 ARIANA RIVAS MD [address] [place] [address] 01-09-2023 10:59-0400 Reason For Taking VItal Signs ARIANA RIVAS MD [address] [place] [address] 01-09-2023 10:59-0400 Respiratory rate 18 /min ARIANA RIVAS MD [address] [place] [address] 01-09-2023 10:59-0400 Systolic Blood Pressure Non-Invasive 118 1 ARIANA RIVAS MD [address] [place] [address] 01-09-2023 07:45-0400 Body temperature 97.88 [degF] ARIANA RIVAS MD [address] [place] [address] 01-09-2023 07:45-0400 Diastolic Blood Pressure Non-Invasive 62 1 ARIANA RIVAS MD [address] [place] [address] 01-09-2023 07:45-0400 Systolic Blood Pressure Non-Invasive 115 1 ARIANA RIVAS MD [address] [place] [address] 01-09-2023 06:12-0400 Heart rate 84 /min ARIANA RIVAS MD [address] [place] [address] 01-09-2023 06:12-0400 Respiratory rate 20 /min ARIANA RIVAS MD [address] [place] [address] 01-09-2023 03:15-0400 Blood Pressure Location ARIANA RIVAS MD [address] [place] [address] 01-09-2023 03:15-0400 Blood Pressure Method ARIANA RIVAS MD [address] [place] [address] 01-09-2023 03:15-0400 Body temperature 97.88 [degF] ARIANA RIVAS MD [address] [place] [address] 01-09-2023 03:15-0400 Diastolic Blood Pressure Non-Invasive 71 1 ARIANA RIVAS MD [address] [place] [address] 01-09-2023 03:15-0400 Mean blood pressure 91 mm[Hg] ARIANA RIVAS MD [address] [place] [address] 01-09-2023 03:15-0400 Reason For Taking VItal Signs ARIANA RIVAS MD [address] [place] [address] 01-09-2023 03:15-0400 Systolic Blood Pressure Non-Invasive 137 1 ARIANA RIVAS MD [address] [place] [address] 01-09-2023 00:19-0400 Blood Pressure Location ARIANA RIVAS MD [address] [place] [address] 01-09-2023 00:19-0400 Blood Pressure Method ARIANA RIVAS MD [address] [place] [address] 01-09-2023 00:19-0400 Mean blood pressure 76 mm[Hg] ARIANA RIVAS MD [address] [place] [address] 01-09-2023 00:19-0400 Reason For Taking VItal Signs ARIANA RIVAS MD [address] [place] [address] 01-08-2023 19:19-0400 Heart rate 93 /min ARIANA RIVAS MD [address] [place] [address] 01-08-2023 18:40-0400 Blood Pressure Cuff Size ARIANA RIVAS MD [address] [place] [address] 01-08-2023 18:40-0400 Blood Pressure Location ARIANA RIVAS MD [address] [place] [address] 01-08-2023 18:40-0400 Blood Pressure Method ARIANA RIVAS MD [address] [place] [address] 01-08-2023 14:33-0400 Blood Pressure Cuff Size ARIANA RIVAS MD [address] [place] [address] 01-08-2023 10:45-0400 Blood Pressure Cuff Size ARIANA RIVAS MD [facility] 01-08-2023 05:02-0400 Mean blood pressure 85 mm[Hg] ARIANA RIVAS MD [facility] 01-06-2023 14:00-0400 Diastolic blood pressure 86 mm[Hg] Dr. Nehemias Arizmendi Work Phone: [facility] 01-06-2023 14:00-0400 Heart rate 100 /min Dr. Nehemias Arizmendi Work Phone: [facility] 01-06-2023 14:00-0400 Respiratory rate 24 /min Dr. Nehemias Arizmendi Work Phone: [facility] 01-06-2023 14:00-0400 SaO2% (BldA) [Mass fraction] 95 % Dr. Nehemias Arizmendi Work Phone: [facility] 01-06-2023 14:00-0400 Systolic blood pressure 139 mm[Hg] Dr. Nehemias Arizmendi Work Phone: [facility] 01-06-2023 06:00-0400 Body height 160 cm ARIANA RIVAS MD [address] 01-06-2023 06:00-0400 Body weight 98.7 kg ARIANA RIVAS MD [address] [place] [address] 01-06-2023 06:00-0400 Body weight 38.55 kg/m2 ARIANA RIVAS MD [address] 01-06-2023 00:54-0400 Body temperature 97.8 [degF] Dr. Nehemias Arizmendi Work Phone: [facility] 01-06-2023 00:00-0400 Inhaled oxygen flow rate 4 L/min Dr. Nehemias Arizmendi Work Phone: [facility] 01-05-2023 15:04-0400 Body mass index (BMI) [Ratio] 37.7 kg/m2 Dr. Nehemias Arizmendi Work Phone: [facility] 01-05-2023 15:04-0400 Body weight 96.[address] Nehemias Arizmendi Work Phone: [facility] 01-05-2023 14:49-0400 Body height 160.[address] Nehemias Arizmendi Work Phone: [facility] 01-03-2023 12:38-0400 Body temperature 97.8 [degF] Dr. Nehemias Arizmendi Work Phone: 3(661)026-124807 [address] 01-03-2023 12:38-0400 Diastolic blood pressure 78 mm[Hg] Dr. Nehemias Arizmendi Work Phone: 9(603)571-545340 [place] [address] 01-03-2023 12:38-0400 Heart rate 64 /min Dr. Nehemias Arizmendi Work Phone: 6(153)532-783707 [address] 01-03-2023 12:38-0400 Respiratory rate 14 /min Dr. Nehemias Arizmendi Work Phone: 0(970)226-545707 [address] 01-03-2023 12:38-0400 SaO2% (BldA) [Mass fraction] 92 % Dr. Nehemias Arizmendi Work Phone: 2(793)541-552007 [address] 01-03-2023 12:38-0400 Systolic blood pressure 110 mm[Hg] Dr. Nehemias Arizmendi Work Phone: 1(836)517-103829 [place] [address] 01-03-2023 12:23-0400 Inhaled oxygen flow rate 2 L/min Dr. Nehemias Arizmendi Work Phone: 2(999)689-586829 [place] [address] 01-03-2023 11:24-0400 Body height 160.[address] Nehemias Arizmendi Work Phone: [facility] 01-03-2023 11:24-0400 Body mass index (BMI) [Ratio] 36.8 kg/m2 Dr. Nehemias Arizmendi Work Phone: [facility] 01-03-2023 11:24-0400 Body weight 94.[address] Nehemias Arizmendi Work Phone: 2(799)114-705329 [place] [address] 11-16-2022 14:51-0400 Body mass index (BMI) [Ratio] 36.2 kg/m2 Dr. Nehemias Arizmendi Work Phone: [facility] 11-16-2022 14:51-0400 Body weight 92.[address] Nehemias Arizmendi Work Phone: [facility] 11-16-2022 14:51-0400 Diastolic blood pressure 83 mm[Hg] Dr. Nehemias Arizmendi Work Phone: [facility] 11-16-2022 14:51-0400 Heart rate 89 /min Dr. Nehemias Arizmendi Work Phone: [facility] 11-16-2022 14:51-0400 Respiratory rate 16 /min Dr. Nehemias Arizmendi Work Phone: [facility] 11-16-2022 14:51-0400 Systolic blood pressure 143 mm[Hg] Dr. Nehemias Arizmendi Work Phone: [facility] 09-16-2022 09:53-0400 Body height 160.[address] Nehemias Arizmendi Work Phone: [facility] 09-16-2022 09:53-0400 Body mass index (BMI) [Ratio] 38.5 kg/m2 Dr. Nehemias Arizmendi Work Phone: [facility] 09-16-2022 09:53-0400 Body temperature 98.6 [degF] Dr. Nehemias Arizmendi Work Phone: [facility] 09-16-2022 09:53-0400 Body weight 98.[address] Nehemias Arizmendi Work Phone: [facility] 09-16-2022 09:53-0400 Diastolic blood pressure 76 mm[Hg] Dr. Nehemias Arizmendi Work Phone: [facility] 09-16-2022 09:53-0400 Heart rate 90 /min Dr. Nehemias Arizmendi Work Phone: [facility] 09-16-2022 09:53-0400 Respiratory rate 17 /min Dr. Nehemias Arizmendi Work Phone: [facility] 09-16-2022 09:53-0400 SaO2% (BldA) [Mass fraction] 94 % Dr. Nehemias Arizmendi Work Phone: [facility] 09-16-2022 09:53-0400 Systolic blood pressure 138 mm[Hg] Dr. Nehemias Arizmendi Work Phone: [facility] 05-11-2022 15:04-0500 Body height 160.[address] Nehemias Arizmendi Work Phone: [facility] 05-11-2022 15:04-0500 Body mass index (BMI) [Ratio] 37.2 kg/m2 Dr. Nehemias Arizmendi Work Phone: [facility] 05-11-2022 15:04-0500 Body weight 95.[address] Nehemias Arizmendi Work Phone: [facility] 05-11-2022 15:04-0500 Diastolic blood pressure 82 mm[Hg] Dr. Nehemias Arizmendi Work Phone: [facility] 05-11-2022 15:04-0500 Heart rate 90 /min Dr. Nehemias Arizmendi Work Phone: [facility] 05-11-2022 15:04-0500 Respiratory rate 20 /min Dr. Nehemias Arizmendi Work Phone: [facility] 05-11-2022 15:04-0500 SaO2% (BldA) [Mass fraction] 96 % Dr. Nehemias Arizmendi Work Phone: [facility] 05-11-2022 15:04-0500 Systolic blood pressure 135 mm[Hg] Dr. Nehemias Arizmendi Work Phone: [facility] 04-15-2022 15:20-0400 Body temperature 98.7 [degF] Dr. Nehemias Arizmendi Work Phone: [facility] Work Phone: 04-15-2022 15:20-0400 Diastolic blood pressure 67 mm[Hg] Dr. Nehemias Arizmendi Work Phone: [facility] Work Phone: 04-15-2022 15:20-0400 Heart rate 85 /min Dr. Nehemias Arizmendi Work Phone: [facility] Work Phone: 04-15-2022 15:20-0400 Respiratory rate 16 /min Dr. Nehemias Arizmendi Work Phone: [facility] Work Phone: 04-15-2022 15:20-0400 SaO2% (BldA) [Mass fraction] 93 % Dr. Nehemias Arizmendi Work Phone: [facility] Work Phone: 04-15-2022 15:20-0400 Systolic blood pressure 126 mm[Hg] Dr. Nehemias Arizmendi Work Phone: [facility] Work Phone: 04-15-2022 14:25-0400 Inhaled oxygen flow rate 2 L/min Dr. Nehemias Arizmendi Work Phone: [facility] Work Phone: 04-15-2022 13:33-0400 Body height 160.[address] Nehemias Arizmendi Work Phone: [facility] Work Phone: 04-15-2022 13:33-0400 Body mass index (BMI) [Ratio] 36.1 kg/m2 Dr. Nehemias Arizmendi Work Phone: [facility] Work Phone: 04-15-2022 13:33-0400 Body weight 92.[address] Nehemias Arizmendi Work Phone: [facility] Work Phone: 04-15-2022 06:29-0400 Body height 160.[address] Nehemias Arizmendi Work Phone: [facility] Work Phone: 04-15-2022 06:29-0400 Body mass index (BMI) [Ratio] 36.1 kg/m2 Dr. Nehemias Arizmendi Work Phone: [facility] Work Phone: 04-15-2022 06:29-0400 Body temperature 97.8 [degF] Dr. Nehemias Arizmendi Work Phone: [facility] Work Phone: 04-15-2022 06:29-0400 Body weight 92.[address] Nehemias Arizmendi Work Phone: [facility] Work Phone: 04-15-2022 06:29-0400 Diastolic blood pressure 65 mm[Hg] Dr. Nehemias Arizmendi Work Phone: [facility] Work Phone: 04-15-2022 06:29-0400 Heart rate 78 /min Dr. Nehemias Arizmendi Work Phone: [facility] Work Phone: 04-15-2022 06:29-0400 Respiratory rate 16 /min Dr. Nehemias Arizmendi Work Phone: [facility] Work Phone: 04-15-2022 06:29-0400 SaO2% (BldA) [Mass fraction] 93 % Dr. Nehemias Arizmendi Work Phone: [facility] Work Phone: 04-15-2022 06:29-0400 Systolic blood pressure 104 mm[Hg] Dr. Nehemias Arizmendi Work Phone: [facility] Work Phone: 03-24-2022 07:39-0400 Body height 152.[address] Nehemias Arizmendi Work Phone: [facility] Work Phone: 03-24-2022 07:39-0400 Body weight 90.[address] Nehemias Arizmendi Work Phone: [facility] Work Phone: 02-25-2022 13:35-0400 Diastolic blood pressure 64 mm[Hg] Dr. Nehemias Arizmendi Work Phone: [facility] Work Phone: 02-25-2022 13:35-0400 Heart rate 72 /min Dr. Nehemias Arizmendi Work Phone: [facility] Work Phone: 02-25-2022 13:35-0400 Respiratory rate 14 /min Dr. Nehemias Arizmendi Work Phone: [facility] Work Phone: 02-25-2022 13:35-0400 SaO2% (BldA) [Mass fraction] 97 % Dr. Nehemias Arizmendi Work Phone: [facility] Work Phone: 02-25-2022 13:35-0400 Systolic blood pressure 104 mm[Hg] Dr. Nehemias Arizmendi Work Phone: [facility] Work Phone: 02-25-2022 13:19-0400 Body height 152.[address] Nehemias Arizmendi Work Phone: [facility] Work Phone: 02-25-2022 13:19-0400 Body mass index (BMI) [Ratio] 39 kg/m2 Dr. Nehemias Arizmendi Work Phone: [facility] Work Phone: 02-25-2022 13:19-0400 Body weight 90.[address] Nehemias Arizmendi Work Phone: [facility] Work Phone: 02-12-2022 07:34-0400 Body mass index (BMI) [Ratio] 39 kg/m2 Dr. Nehemias Arizmendi Work Phone: [facility] Work Phone: 02-09-2022 15:09-0400 Body mass index (BMI) [Ratio] 35.4 kg/m2 Dr. Nehemias Arizmendi Work Phone: [facility] Work Phone: 02-09-2022 15:09-0400 Body weight 90.[address] Nehemias Arizmendi Work Phone: [facility] Work Phone: 02-09-2022 15:09-0400 Diastolic blood pressure 74 mm[Hg] Dr. Nehemias Arizmendi Work Phone: [facility] Work Phone: 02-09-2022 15:09-0400 Heart rate 94 /min Dr. Nehemias Arizmendi Work Phone: [facility] Work Phone: 02-09-2022 15:09-0400 Respiratory rate 18 /min Dr. Nehemias Arizmendi Work Phone: [facility] Work Phone: 02-09-2022 15:09-0400 SaO2% (BldA) [Mass fraction] 96 % Dr. Nehemias Arizmendi Work Phone: [facility] Work Phone: 02-09-2022 15:09-0400 Systolic blood pressure 133 mm[Hg] Dr. Nehemias Arizmendi Work Phone: [facility] Work Phone: 02-09-2022 14:02-0400 Body mass index (BMI) [Ratio] 35.5 kg/m2 Dr. Nehemias Arizmendi Work Phone: [facility] Work Phone: 02-09-2022 14:02-0400 Body temperature 97.6 [degF] Dr. Nehemias Arizmendi Work Phone: [facility] Work Phone: 02-09-2022 14:02-0400 Body weight 90.[address] Nehemias Arizmendi Work Phone: [facility] Work Phone: 02-09-2022 14:02-0400 Diastolic blood pressure 78 mm[Hg] Dr. Nehemias Arizmendi Work Phone: [facility] Work Phone: 02-09-2022 14:02-0400 Heart rate 103 /min Dr. Nehemias Arizmendi Work Phone: [facility] Work Phone: 02-09-2022 14:02-0400 Respiratory rate 17 /min Dr. Nehemias Arizmendi Work Phone: [facility] Work Phone: 02-09-2022 14:02-0400 SaO2% (BldA) [Mass fraction] 98 % Dr. Nehemias Arizmendi Work Phone: [facility] Work Phone: 02-09-2022 14:02-0400 Systolic blood pressure 126 mm[Hg] Dr. Nehemias Arizmendi Work Phone: [facility] Work Phone: 01-01-2022 14:29-0400 Body height 160.[address] Nehemias Arizmendi Work Phone: [facility] Work Phone: 01-01-2022 14:29-0400 Body mass index (BMI) [Ratio] 35.5 kg/m2 Dr. Nehemias Arizmendi Work Phone: [facility] Work Phone: 01-01-2022 14:29-0400 Body weight 90.[address] Nehemias Arizmendi Work Phone: [facility] Work Phone: 01-01-2022 14:29-0400 Diastolic blood pressure 76 mm[Hg] Dr. Nehemias Arizmendi Work Phone: [facility] Work Phone: 01-01-2022 14:29-0400 Heart rate 84 /min Dr. Nehemias Arizmendi Work Phone: [facility] Work Phone: 01-01-2022 14:29-0400 Respiratory rate 18 /min Dr. Nehemias Arizmendi Work Phone: [facility] Work Phone: 01-01-2022 14:29-0400 Systolic blood pressure 150 mm[Hg] Dr. Nehemias Arizmendi Work Phone: [facility] Work Phone: Encounters Encounter Date Encounter Type Care Provider Facility Start: 01-14-2025 End: 01-14-[address] Nehemias Arizmendi MD Work Phone: [facility] Start: 01-14-2025 End: 01-14-2025 Patient encounter procedure Yrn Singer Akira [employer] [facility] Work Phone: Start: 11-27-2024 End: 11-27-[address] Nehemias Arizmendi MD Work Phone: [facility] Work Phone: Start: 11-27-2024 End: 11-27-[address] Nehemias Arizmendi MD [facility] [place] Work Phone: Start: 11-27-2024 End: 11-27-2024 ambulatory Nehemias Arizmendi Facility:[facility] Start: 11-21-2024 End: 11-21-[address] Nehemias Arizmendi MD Work Phone: [facility] Work Phone: Start: 11-21-2024 End: 11-21-[address] Diana Ramos MD -[facility] Work Phone: Start: 11-21-2024 End: 11-21-2024 ambulatory Diana Ramos Facility:[facility] Start: 10-23-2024 Non-patient / Non-visit [facility]. Evans [facility] Work Phone: Start: 10-22-2024 Non-patient / Non-visit Dr. Sy Higgins [facility] Work Phone: Start: 10-21-2024 Non-patient / Non-visit Dr. Daksha Robles [facility] Work Phone: Start: 10-20-2024 Non-patient / Non-visit Dr. Sy Higgins [facility] Work Phone: Start: 10-20-2024 Non-patient / Non-visit Thelma YO [facility] Start: 10-19-2024 Non-patient / Non-visit Thelma YO [facility] Start: 10-19-2024 Non-patient / Non-visit Dr. Sy Higgins [facility] Work Phone: Start: 10-19-2024 ambulatory Bharathi Rivera ty:[facility] Start: 10-19-2024 Non-patient / Non-visit Dr. Dre fajardo MD -[facility] Start: 10-18-2024 ambulatory Leobardo Soto Fac ility:[facility] Start: 10-18-2024 End: 10-23-2024 Evaluation and management of inpatient Dr. Bharathi Robles [facility] Work Phone: Start: 08-22-2024 End: 08-22-[address] Nehemias Arizmendi MD Work Phone: [facility] Work Phone: Start: 08-22-2024 End: 08-22-[address] Diana Ramos MD -Laboratory, [facility] Start: 08-22-2024 End: 08-22-2024 ambulatory [facility] Facility:[facility] Start: 05-29-2024 End: 05-29-[address] Diana Ramos MD -Laboratory, [facility] Start: 05-29-2024 End: 05-29-[address] [facility] Facility:[facility] Start: 03-16-2024 ambulatory Teo Coto Facility :[facility] Start: 03-10-2024 End: 03-10-2024 ambulatory [facility] Facility:[facility] Start: 01-31-2024 ambulatory Leobardo Soto Fac ility:[facility] Start: 01-28-2024 ambulatory Leobardo Soto Fac ility:[facility] Start: 01-28-2024 End: 01-31-2024 Evaluation and management of inpatient Leobardo Soto Facility:[facility] Start: 12-16-2023 End: 12-16-2023 ambulatory Diana Ramos Facility:[facility] Start: 09-23-2023 End: 09-23-2023 ambulatory [facility] Work Phone: Start: 09-23-2023 End: 09-23-2023 Patient encounter procedure [facility] Start: 08-03-2023 End: 08-03-2023 Patient encounter procedure PHY WO ID REFERRING [facility] Start: 06-30-2023 End: 06-30-2023 ambulatory [facility] Work Phone: Start: 06-30-2023 End: 06-30-2023 Patient encounter procedure [facility] Start: 05-17-2023 End: 05-17-2023 ambulatory [facility] Work Phone: Start: 05-17-2023 End: 05-17-2023 Patient encounter procedure [facility] Work Phone: Start: 03-30-2023 End: 03-30-2023 Patient encounter procedure [facility] Start: 01-11-2023 End: 01-11-[address] Nehemias Arizmendi Work Phone: [facility] Work Phone: Start: 01-11-2023 End: 01-11-[address] Nehemias Arizmendi Work Phone: [facility] Work Phone: Start: 01-06-2023 End: 01-09-2023 Evaluation and management of inpatient ARIANA RIVAS MD Facility:A Start: 01-06-2023 End: 01-09-2023 Evaluation and management of inpatient ARIANA RIVAS MD [facility] Start: 01-05-2023 End: 01-06-2023 Emergency department patient visit [facility] Start: 01-03-2023 End: 01-03-2023 Emergency department patient visit Dr[facility] Nehemias [facility]endi [facility] Start: 01-01-2023 End: 01-01-[address] Nehemias Arizmendi Work Phone: [facility] Start: 11-16-2022 End: 11-16-[address] Nehemias Arizmendi Work Phone: [facility] Work Phone: Start: 10-27-2022 End: 10-27-[address] Nehemias Arizmendi Work Phone: [facility] Work Phone: Start: 10-27-2022 End: 10-27-[address] Nehemias Arizmendi Work Phone: [facility] Start: 09-16-2022 End: 09-16-[address] Nehemias Arizmendi Work Phone: [facility] Work Phone: Start: 09-16-2022 End: 09-16-[address] Nehemias Arizmendi Work Phone: [facility] Start: 09-16-2022 End: 09-16-[address] Nehemias Arizmendi Work Phone: [facility] Start: 08-10-2022 End: 08-10-[address] Nehemias Arizmendi Work Phone: [facility] Work Phone: Start: 08-10-2022 End: 08-10-[address] Nehemias Arizmendi Work Phone: [facility] Start: 08-03-2022 End: 08-03-[address] Nehemias Arizmendi Work Phone: [facility] Start: 06-17-2022 End: 06-17-[address] Nehemias Arizmendi Work Phone: [facility] Work Phone: Start: 06-17-2022 End: 06-17-[address] Nehemias Arizmendi Work Phone: [facility] Start: 05-11-2022 End: 05-11-[address] Nehemias Arizmendi Work Phone: [facility] Work Phone: Start: 05-11-2022 End: 05-11-[address] Nehemias Arizmendi Work Phone: [facility] Start: 04-28-2022 End: 04-28-[address] Nehemias Arizmendi Work Phone: [facility] Work Phone: Start: 04-28-2022 End: 04-28-[address] Nehemias Arizmendi Work Phone: [facility] Start: 04-15-2022 End: 04-15-2022 Evaluation and management of inpatient Dr. Nehemias Arizmendi [facility] Start: 04-15-2022 End: 04-15-[address] Nehemias Arizmendi Work Phone: [facility] Work Phone: Start: 04-15-2022 Non-patient / Non-visit Dr. Sanaz Arizmendi Work Phone: [facility] Start: 04-15-2022 Admission to [facility] surgery center Dr. Nehemias Arizmendi Work Phone: [facility]-[employer] Start: 04-11-2022 End: 04-11-[address] Nehemias Arizmendi Work Phone: [facility] Work Phone: Start: 04-11-2022 End: 04-11-[address] Nehemias Arizmendi Work Phone: [facility]-Laboratory Start: 04-02-2022 End: 04-02-[address] Nehemias Arizmendi Work Phone: [facility] Work Phone: Start: 04-02-2022 End: 04-02-[address] Nehemias Arizmendi Work Phone: [facility]-Laboratory, Specimen Start: 03-30-[address] Nehemias flaherty Work Phone: [facility]-Cardiovascula r Services Start: 03-27-2022 End: 03-27-[address] Nehemias Arizmendi Work Phone: [facility] Start: 03-24-2022 End: 03-24-2022 Admission to same day surgery center Dr. Nehemias Arizmendi Work Phone: [facility]-[employer]/Special Procedures Start: 03-24-2022 End: 03-24-[address] Nehemias Arizmendi Work Phone: [facility] Work Phone: Start: 03-17-2022 End: 03-17-[address] Nehemias Arizmendi Work Phone: [facility] Start: 03-12-2022 End: 03-12-[address] Nehemias Arizmendi Work Phone: [facility] Work Phone: Start: 03-12-2022 End: 03-12-[address] Nehemias Arizmendi Work Phone: [facility] Start: 02-25-2022 Non-patient / Non-visit Dr. Sanaz Arizmendi Work Phone: [facility] Start: 02-25-2022 End: 02-25-[address] Nehemias Arizmendi Work Phone: [facility] Work Phone: Start: 02-25-2022 End: 02-25-[address] Nehemias Arizmendi Work Phone: [facility] Start: 02-12-2022 End: 02-12-[address] Nehemias Arizmendi Work Phone: [facility] Start: 02-11-2022 Non-patient / Non-visit Dr. Sanaz Arizmendi Work Phone: [facility] Start: 02-09-2022 End: 02-09-[address] Nehemias Arizmendi Work Phone: [facility] Start: 02-09-2022 End: 02-09-[address] Nehemias Arizmendi Work Phone: [facility] Start: 02-06-2022 Non-patient / Non-visit Dr. Sanaz Arizmendi Work Phone: [facility] Start: 02-06-2022 Non-patient / Non-visit Dr. Sanaz Arizmendi Work Phone: [facility] Start: 02-06-2022 End: 02-06-[address] Nehemias Arizmendi Work Phone: [facility]-Cardiovascula r Services Start: 02-04-2022 End: 02-04-[address] Nehemias Arizmendi Work Phone: [facility] Work Phone: Start: 02-04-2022 End: 02-04-[address] Nehemias Arizmendi Work Phone: [facility] Start: 01-23-2022 End: 01-23-[address] Nehemias Arizmendi Work Phone: [facility] Start: 01-16-2022 End: 01-16-[address] Nehemias Arizmendi Work Phone: [facility]-Pulmonary Services/Neurology Start: 01-01-2022 End: 01-01-[address] Nehemias Arizmendi Work Phone: [facility] Start: 12-16-2021 Non-patient / Non-visit Dr. Sanaz Arizmendi Work Phone: [facility] Start: 10-17-2021 End: 10-17-[address] Nehemias Arizmendi Work Phone: [facility] Start: 10-03-2021 Non-patient / Non-visit Dr. Sanaz Arizmendi Work Phone: [facility] Start: 10-03-2021 End: 10-03-[address] Nehemias Arizmendi Work Phone: [facility]-Cardiovascula r Services Start: 08-05-2021 End: 08-05-[address] Nehemias Arizmendi Work Phone: [facility] Start: 06-13-[address] Nehemias Arizmendi Work Phone: [facility] Date Procedure Procedure Detail Performing Clinician Start: 10-23-[address] Nehemias Arizmendi MD Work Phone: Start: 10-21-2024 Carbon dioxide measurement, partial pressure Dr. Nehemias Arizmendi MD Work Phone: Start: 10-21-2024 Gases blood o2 saturation only direct jasiel Dr. Nehemias Arizmendi MD Work Phone: Start: 10-21-2024 Measurement of partial pressure of oxygen in blood Dr. Nehemias Arizmendi MD Work Phone: Start: 10-21-[address] Nehemias Arizmendi MD Work Phone: Start: 10-21-2024 Plain chest X-ray Dr. Nehemias Arizmendi MD Work Phone: Start: 10-20-[address] Nehemias Arizmendi MD Work Phone: Start: 10-20-[address] Nehemias Arizmendi MD Work Phone: Start: 10-19-2024 Serum inorganic phosphate measurement Dr. Nehemias Arizmendi MD Work Phone: Start: 10-18-2024 CT angiography of chest with contrast Dr. Nehemias Arizmendi MD Work Phone: Start: 10-18-2024 X-ray of chest, PA and lateral views Dr. Nehemias Arizmendi MD Work Phone: Start: 10-18-2024 D-dimer assay, quantitative Dr. Nehemias chavez MD Work Phone: Comment on above: D-Dimer ELEVATED (>0.49): Additional josue dies and clinicalassessments are indicated to conclude diagnosis of:Deep Vein Thrombosis (DVT) or Pulmonary Embolism (PE)CRITICAL VALUE CALLED TO [id number] 2018 Alexey Saenz.RESULTS READ BACK BY SAME. Start: 10-18-2024 SARS-CoV-2, Influenza & RSV (PCR) Dr. Nehemias Arizmendi MD Work Phone: Start: 01-05-2023 CT angiography of chest with contrast Dr. Nehemias Arizmendi Work Phone: Start: 01-05-2023 Plain chest X-ray Dr. Nehemias Arizmendi Work Phone: Start: 01-03-2023 Plain chest X-ray Dr. Nehemias Arizmendi Work Phone: Start: 04-15-[address] Nehemias Arizmendi Work Phone: Start: 03-12-2022 MRI of brain with contrast Dr. Nehemias petty Work Phone: Start: 02-25-2022 CT angiography of coronary arteries Dr. Nehemias Arizmendi Work Phone: Start: 02-09-2022 Plain chest X-ray Dr. Nehemias Arizmendi Work Phone: Start: 02-06-2022 Cardiovascular stress test using pharmacologic stress agent Dr. Nehemias Arizmendi Work Phone: Start: 01-23-2022 US scan of thyroid Dr. Nehemias Arizmendi Work Phone: Start: 06-13-2021 Plain x-ray of pelvis and lower extremity Dr. Nehemias Arizmendi Work Phone: Appendicitis (disorder) MATT RIVAS MD Cholecystectomy ARIANA RIVAS MD History of cholecystectomy S/P l aparoscopic cholecystectomy Dr. Nehemias Arizmendi Work Phone: History of thyroidectomy S/P total thyroi dectomy Dr. Nehemias Arizmendi Work Phone: Urine culture Dr. Nehemias pineda Work Phone: Plan of Treatment Date Care Activity Detail Author Start: 01-14-2025 Evaluation of diagnostic study results [facility] Start: 10-23-2024 Patient discharge [facility] Start: 10-21-2024 Continuous pulse oximetry [facility] Start: 10-21-2024 Dual pressure spontaneous ventilation support [facility] Start: 10-21-2024 Physiotherapy of chest [facility] Start: 10-20-2024 [facility] Start: 10-20-2024 Inhalation therapy procedure [facility] Start: 10-19-2024 End: 10-19-2024 [facility] Start: 10-19-2024 Care regimes management [facility] Start: 10-19-2024 Notification of physician [facility] Start: 10-19-2024 Referral to vascular surgeon [facility] Start: 10-19-2024 Gas panel - Arterial blood [facility] Start: 10-19-2024 Oxygen therapy [facility] Start: 10-19-2024 Assessment of risk of venous thromboembolism [facility] Start: 10-19-2024 Insertion of catheter into peripheral vein [facility] Start: 10-19-2024 End: 10-19-2024 Measuring intake and output [facility] Start: 10-19-2024 Providing care according to standard [facility] Start: 10-19-2024 [facility] Start: 10-19-2024 End: 10-19-2024 Following clinical pathway protocol [facility] Start: 10-18-2024 Admission procedure [facility] Start: 10-18-2024 Hospital admission, emergency, from emergency room, medical nature [facility] Start: 10-18-2024 [facility] Start: 01-05-2023 [facility] Start: 04-15-2022 Patient discharge [facility] Work Phone: Start: 04-15-2022 Anes esoph thyrd larynx trach & lymph neck 1yr ANESTH NECK ORGAN 1YR/> [facility] Work Phone: Start: 04-15-2022 Thyroidectomy total/complete REMOVAL OF THYROID [facility] Work Phone: Start: 04-15-2022 Application of intermittent pneumatic compression device [facility] Work Phone: Start: 04-15-2022 Following clinical pathway protocol [facility] Work Phone: Start: 04-15-2022 Ambulation without limitation [facility] Work Phone: Start: 04-15-2022 Catheterization of vein [facility] Work Phone: Start: 04-15-2022 Incentive spirometry [facility] Work Phone: Start: 04-15-2022 Measuring intake and output [facility] Work Phone: Start: 04-15-2022 Provision of activity privileges [facility] Work Phone: Start: 04-15-2022 Vital signs measurements [facility] Work Phone: Start: 04-15-2022 [facility] Work Phone: Start: 04-15-2022 Admission procedure [facility] Work Phone: Start: 02-25-2022 Following clinical pathway protocol [facility] Work Phone: CTA Heart and Delacruz ry arteries W contrast IV [facility] Work Phone: Folate [Mass/volume] in Serum or Plasma [facility] Rockwall and lambda lig ht chains [facility] NM Heart Views W str ess and W radionuclide IV [facility] Work Phone: Patient Education ED Pneumonia (Adult) [facility] Work Phone: Patient referral [facility] Work Phone: Thiamine measurement [facility] Thyroid stimulating hormone measurement [facility] Work Phone: Urinalysis complete panel - Urine [facility] US Heart [facility] Work Phone: Vitamin B12 measurement [facility] Payers Date Payer Category Payer Unknown [id number] [facility] 2023 Self-pay [id number] 2023 Unknown [id number] 2023 Private Health Insurance [id number] 2015 Unknown [id number] 1965 Unknown [id number] Unknown [id number] Unknown [id number] Unknown COMMERCIAL OTHER [id number] Unknown [id number] Unknown [id number] .840.1.635180.3.579.2.462 Unknown [id number] .840.1.955962.3.579.2.462 Unknown [id number] .840.1.903012.3.579.2.462 Unknown [id number] .840.1.312307.3.579.2.462 Unknown [id number] .840.1.813937.3.579.2.462 Unknown [id number] 2.840.1.446248.3.579.2.462 Unknown [id number] .840.1.548242.3.579.2.462 Unknown [id number] .840.1.759403.3.579.2.462 Unknown [id number] .840.1.380026.3.579.2.462 Unknown [id number] 2.840.1.425429.3.579.2.462 Unknown [id number] 2.840.1.082200.3.579.2.462 Unknown [id number] 2.840.1.372006.3.579.2.462 Unknown [id number] 2.16.840.1.645105.3.579.2.462 Unknown [id number] 2.16.840.1.907469.3.579.2.462 Unknown [id number] 2.16.840.1.865552.3.579.2.462 Unknown [id number] 2.16.840.1.134134.3.579.2.462 Unknown [id number] 2.16.840.1.746698.3.579.2.462 Unknown [id number] 2.16.840.1.745346.3.579.2.462 Unknown [id number] 2.16.840.1.875646.3.579.2.462 Unknown [id number] 2.16.840.1.319844.3.579.2.462 Unknown [id number] 2.16.840.1.497693.3.579.2.462 Unknown [id number] 2.16.840.1.233741.3.579.2.462 Unknown [id number] 2.16.840.1.376593.3.579.2.462 Unknown [id number] 2.16.840.1.182158.3.579.2.462 Unknown [id number] 2.16.840.1.044316.3.579.2.462 Social History Date Type Detail Facility Start: 02-07-2021 End: 01-05-2023 Tobacco smoking status [facility] Unknown if ever smoked [facility] Start: 1965 Sex Assigned At Female [facility] Start: 01-06-2023 Tobacco smoking status Heavy t obacco smoker (finding) [facility] Start: 01-28-2024 End: 10-20-2024 Tobacco smoking status [facility] Smokes tobacco daily (finding) [facility] Start: 09-05-2024 End: 10-19-2024 Sex Female (finding) [facility] Medical Equipment Procedure Code Equipment Code Equipment Original Text Equipment Identifier Dates Thyroidectomy Plant polysaccha ride haemostatic agent, bioabsorbable ([id number] FDA Start: 04-15-2022 Thyroidectomy Ligation clip, metallic ( )[id number] FDA Start: 04-15-2022 Thyroidectomy Ligation clip, metallic ( )[id number] FDA Start: 04-15-2022 Goals Date Patient Goal Desired Activity /State Functional Status Date Assessment Result Facility 10-23-2024 Functional status Ambulates;Lars r;Bathroom Privilege [facility] Work Phone: 01-09-2023 Functional Status Room check performed [facility] 01-09-2023 Functional Status [facility] 01-09-2023 Functional Status Assistive Device None [facility] 01-08-2023 Functional Status [facility] 01-08-2023 Functional Status [facility] 01-08-2023 Functional Status Bed Bath Independent, S etup [facility] 01-06-2023 Functional Status [facility] 01-06-2023 Functional Status Skin moisturiz er, Shampoo cap, CHG bath [facility] 04-15-2022 Functional status Up ad damien [facility] Work Phone: Mental Status Date Assessment Result Facility 10-23-2024 Cognitive function Voice/Name [facility] Work Phone: 10-18-2024 Cognitive function Level Of Cons ciousness Awake;Alert;Appropriate;Follow s Commands [facility] Work Phone: 01-09-2023 Mental Status Orientation Oriented x 4 [facility] 01-09-2023 Mental Status [facility] 01-09-2023 Mental Status [facility] 01-08-2023 Mental Status Orientation Asse ssment Oriented x 4 [facility] 01-08-2023 Mental Status [facility] 01-07-2023 Mental Status [facility] 01-03-2023 Cognitive function Voice/Name [facility] Work Phone: 04-15-2022 Cognitive function Level Of Cons ciousness Awake;Alert;Appropriate [facility] Work Phone: 04-15-2022 Cognitive function Voice/Name [facility] Work Phone: 04-15-2022 Cognitive function Voice/Name [facility] Work Phone: 02-25-2022 Cognitive function Voice/Name [facility] Work Phone: Clinical Notes 01-06-2023 to 10-23-2024 Note Date & Type Note Facility 10-23-[address] [facility] 10-19-2024 Evaluation note Diagnosis Onset Date Resolution Acute respiratory insufficiency acute October 18, 2024 11:07pm DVT (deep venous thrombosis) acute October 18, 2024 11:07pm Pulmonary embolism acute October 18, 2024 11:07pm Morbid obesity with BMI of 40.0-44.9, adult inactive October 18, 2024 11:07pm [facility] Work Phone: 1(662) 721-462104-24-2025 Evaluation note* Diagnosis Onset Date Resolution Status Admit Date Acute respiratory insufficiency acut e October 18, 2024 11:07pm DVT (deep venous thrombosis) acute October 18, 2024 11:07pm Pulmonary embolism acute October 18, 2024 11:07pm Morbid obesity with BMI of 40.0-44.9, adult inactive October 18 11:07pm Tachycardia acute January 14 9:45am UTI (urinary tract infection) acute January 14, 2025 9:45am [facility] Services Work Phone: [phone] 493-462604-23-2025 Radiology Diagnostic study note [facility] Imaging Services [address] [place], [place] [address] CTA Chest W/WO Contrast MR#: [id number] Acct: [id number] Name: CAITLIN GERMAIN Rep #: [id number] : 1965 F 59 From: Henrik Uriarte MD PCP: Dr. Nehemias Arizmendi MD Status: REG E R Study:CTA Chest W/WO Contrast Date of Exam: 10/18/24 Exam# [id number] Ordering Dr: Kyler Galarza DO PROCEDURE: CTA CHEST W/WO CONTRAST 10/18/2024 REASON FOR EXAM: ELEVATED D-DIMER, SHORTNESS OF BREATH TECHNIQUE: CTA imaging of the chest with intravenous contrast. Coronal and Sagittal reconstruction series were provided. 3D, 3D post processing, 3D reconstructions, Maximum intensity projection (MIPs) Volume rendering and Shaded surface rendering was provided. One or more dose reduction techniques were used (e.g., Automated exposure control, adjustment of the mA and/or kV according to patient size, use of iterative reconstruction technique). FINDINGS: Thoracic Aorta: Unremarkable. Heart: No cardiomegaly. Calcified coronary plaque is present. No right ventricular dilatation to suggest right heart strain. Pulmonary Vessels: Tubular filling defect within the distal main right pulmonaryartery extending into the ascending and descending pulmonary arteries consistent with pulmonary embolism. Hardware: None Lymph nodes: Unremarkable. Lungs and Airways: Ground-glass densities in both lower lobes consistent with subsegmental atelectasis. Pleura: No pleural effusion. Upper Abdomen: Status post cholecystectomy. Bones: Moderate dextroscoliosis of the thoracolumbar spine with degenerative disc disease. CT/CTA Chest W/WO Contrast IMPRESSION: Positive for pulmonary embolism of the distal main right pulmonary artery extending into the into the ascending and descending pulmonary arteries. No right heart strain. Dr. Nance was notified on 10/18/2024 at 2130. Reading Location: [facility] CC: Dr. Kyler Hay DO; Dr. Nehemias Arizmendi MD ~ Gerontology Aide: Signed [facility]04-23-2025 Radiology Diagnostic study note [facility] Imaging Services [address] [place] [address] Chest PA and Lateral MR#: [id number] Acct: [id number] Name: CAITLIN GERMAIN Rep #: [id number] : 1965 F 59 From: Chao Harrison DO PCP: Dr. Nehemias Arizmendi MD Status: REG E R Study:Chest PA and Lateral Date of Exam: 10/18/24 Exam# [id number] Ordering Dr: Kyler Galarza DO PROCEDURE: CHEST PA AND LATERAL 10/18/2024 REASON FOR EXAM: COUGH TECHNIQUE: Frontal and lateral views of the chest. COMPARISON: None FINDINGS: Low lung volumes. Possible mild cardiomegaly. Linear bibasilar opacities favoring scarring/atelectasis. Lungs are otherwise clear. No pleural effusion or sizable pneumothorax. Severe thoracic kyphosis and dextroscoliosis. RAD/Chest PA and Lateral IMPRESSION: No definite acute airspace abnormality. Reading Location: [facility] CC: Dr. Kyler Hay DO; Dr. Nehemias Arizmendi MD ~ Gerontology Aide: Signed [facility]08-05-2024 [facility]07-17-2023 Note. MICRO - Microbiology PROCEDURE: Culture Body Fluid [...] Locations *1: This test was performed at: [facility], [address] [place] [address], [id number] , [facility] (ID)01-09-2023 Hospital Discharge instructions Patient Education 01/09/2023 13:43:01 Shortness of Breath, Adult Shortness of Breath, Adult Shortness of breath is when a person has trouble breathing enough air or when a person feels like she or he is having trouble breathing in enough air. Shortness of breath could be a sign of a medicalproblem. Follow these instructions at home: Pay attention to any changes in your symptoms. Do not use any products that contain nicotine or tobacco, such as cigarettes, e- cigarettes, and chewing tobacco. Do not smoke. Smoking is a common cause of shortness of breath. If you need help quitting, ask yourhealth care provider. Avoid things that can irritate your airways, such as: ?Mold. ?Dust. ?Air pollution. ?Chemical fumes. ?Things that can cause allergy symptoms (allergens), if you have allergies. Keep your living space clean and free of mold and dust. Rest as needed. Slowly return to your usual activities. Take wctx-pjy-rhwdvzs and prescription medicines only as told by [...] 03/09/2002 Document Revised: 11/14/2018 Document Reviewed: 11/14/2018 [employer] Patient Education 2020 Voice[employer]. Follow Up Care 01/06/2023 05:43:33 With:NEHEMIAS ARIZMENDI MD Address: [address] [place] [address] [phone] When:1-2 days Comments:Call to make appointment [facility] 07-15-2023 Note Discharge Instructions Thank you for allowing [facility] to assist you with your healthcare needs. The following is importantdischarge information regarding your hospital visit. Your Care Team NEHEMIAS ARIZMENDI MD Your Diagnosis Diabetes mellitus type 2 Pleural effusion Pericardial effusion What to do next Instructions From Your Doctor Take tapering course of prednisone. Pleural effusion is likely secondary to your underlying rheumatoid arthritis. 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 No need for any further antibiotics Take Lasix as directed by cardiology Do lab work in the next 2 to 3 days to follow-up on your kidney function and electrolytes. Make appointment to follow-up with your primary care physician within the next 3 to 5 days If your condition should worsen return to hospital for medical attention Follow Up Appointments Follow Up with NEHEMIAS ARIZMENDI MD When Within 1-2 days Why: Call to make appointment Where: [address] [place] [address] [phone] The Following Activity and Diet Have Been [...] follow-up within: 2-4 days, Results Notify to: NEHEMIAS ARIZMENDI MD, 01/09/23 12:55:00 EDT Discharge Radiology No [...] and or supplements as they may interact withyour home medications. What How Much When Instructions Last Dose New furosemide (furosemide 20 mg oral tablet) 1 tab(s) by mouth Once a day Pickup at [facility]/pharmacy #[id number] Changed predniSONE (prednisone 10mg tab (TAPER)) Taper 40-30-20-10 x 3 days each dose by mouth Once a day Duration: 12 Days Take with food/ meal Pickup at [facility]/pharmacy #4605 Unchanged albuterol (albuterol MDI (90 mcg/ inh) [...] by mouth Once a day Pharmacy Information [facility]/pharmacy #[id number]: [address] [place], [place] [phone] What How Much When Comments Stop Taking [...] in a muscle, under the skin, or andreina vein. A healthcare provider will give you [...] using [employer]. Also do not use the infusorwithin 12 inches of mobile phones, tablets, computers, or wireless accessories such as remote control, or [employer]ja Technologiesoth devices. Do not reuse a needle, syringe [...] High doses of furosemide may cause irreversible hearingloss. Measure liquid medicine with the supplied measuring device (not a kitchen spoon). Doses are based on weight in children and teenagers. Your child's dose may change if the child gains or loses weight. Furosemide will make you urinate more often and you may get dehydrated easily. Follow your doctor'sinstructions about using potassium supplements or getting enough [...] blood pressure, such as diet pills or sioup-djp-dndl medicine. What are the possible side effects [...] may report side effects to FDA at 6-496-RMM-5334. What other drugs will affect furosemide? Sometimes [...] drugs may affect furosemide, including prescription and owbo-ccs-howihdb medicines, vitamins, and herbal products. Not all [...] to ensure that the information provided by [employer]. ('[employer]') is accurate, up-to-date, and complete, but no guarantee is made to that effect. Drug information contained herein may be time sensitive. [employer] information has been compiled for use by healthcare practitioners and consumers in the [place] and therefore [employer] does not warrant that uses outside of the [place] are appropriate, unless specifically indicated otherwise. [employer] drug information does not endorse drugs, diagnose patients or recommend therapy. [employer] drug information isan informational resource designed to assist licensed healthcare practitioners in caring for their p atients and/or to serve consumers viewing this service as a supplement to, and not a substitute for, the expertise, skill, knowledge and judgment of healthcare practitioners. The absence of a warningfor a given drug or drug combination in no way should be construed to indicate that the drug or drug combination is safe, effective or appropriate for any given patient. [employer] does not assume any responsibility for any aspect of healthcare administered with the aid of information [facility] provides. The information contained herein is not intended to cover all possible uses, directions, precautions, warnings, drug interactions, allergic reactions, or adverse effects. If you have questions about the drugs you are taking, check with your doctor, nurse or pharmacist. Copyright 6912-4894 [employer]. Version: 18.01. Revision Date: 09/04/2022. prednisone (PRED [...] blood cell disorders, kidney disorders, leukemia, lymphoma, multi ple sclerosis, organ transplant rejection, swelling from a brain tumor or injury. Prednisone may also be used for purposes not listed in this medication guide. What should I discuss with my healthcare provider before taking prednisone? You should not use prednisone if you are allergic to it, or if you have a fungal infection anywherein your body. Steroid medication can weaken your [...] you may get an infection more easily. Callyour doctor if you have signs of infection [...] to thinning skin, easy bruising, changes in bodyfat (especially in your face, neck, back, and [...] can be serious or even fatal in peoplewho are using steroid medicine. Avoid drinking alcohol. [...] skin discoloration, craving salty foods, and feeling light- headed; or low potassium level--leg cramps, constipation, irregular heartbeats, fluttering in your chest, increased thirst or urination, numbness or tingling, muscle weakness or limp feeling. Prednisone can affect growth in children. Tell your doctor if your child is not growing at a normalrate while using this medicine. Common side effects [...] may report side effects to FDA at 4-084-UJW-5339. What other drugs will affect prednisone? Sometimes [...] may affect prednisone. This includes prescription and ffew-typ-vuveeab medicines, vitamins, and herbal products. Not all [...] to ensure that the information provided by [employer]. ('[employer]') is accurate, up-to-date, and complete, but no guarantee is made to that effect. Drug information contained herein may be time sensitive. [employer] information has been compiled for use by healthcare practitioners and consumers in the [place] and therefore [employer] does not warrant that uses outside of the [place] are appropriate, unless specifically indicated otherwise. [employer] drug information does not endorse drugs, diagnose patients or recommend therapy. [employer] drug information isan informational resource designed to assist licensed healthcare practitioners in caring for their p atients and/or to serve consumers viewing this service as a supplement to, and not a substitute for, the expertise, skill, knowledge and judgment of healthcare practitioners. The absence of a warningfor a given drug or drug combination in no way should be construed to indicate that the drug or drug combination is safe, effective or appropriate for any given patient. [employer] does not assume any responsibility for any aspect of healthcare administered with the aid of information [employer] provides. The information contained herein is not intended to cover all possible uses, directions, precautions, warnings, drug interactions, allergic reactions, or adverse effects. If you have questions about the drugs you are taking, check with your doctor, nurse or pharmacist. Copyright 3252-9187 [employer]. Version: 10.. Revision Date: 09/22/2018. Education Materials Shortness of Breath, Adult Shortness of breath is when a person has trouble breathing enough air or when a person feels like she or he is having trouble breathing in enough air. Shortness of breath could be a sign of a medicalproblem. Follow these instructions at home: Pay attention to any changes in your symptoms. Do not use any products that contain nicotine or tobacco, such as cigarettes, e- cigarettes, and chewing tobacco. Do not smoke. Smoking is a common cause of shortness of breath. If you need help quitting, ask yourhealth care provider. Avoid things that can irritate your airways, such as: ? Mold. ? Dust. ? Air pollution. ? Chemical fumes. ? Things that can cause allergy symptoms (allergens), if you have allergies. Keep your living space clean and free of mold and dust. Rest as needed. Slowly return to your usual activities. Take cysf-ugg-rscnbdl and prescription medicines only as told by [...] 03/09/2002 Document Revised: 11/14/2018 Document Reviewed: 11/14/2018 [employer] Patient Education 2020 Voice123. Additional Information VACCINATE! IT SAVES LIVES! Members of the community who have not yet received the COVID-19 vaccine and would like to receive it can visit one of [facility] vaccine clinics. There are many vaccine clinic locations within the [facility]. For locations and available times, please visit https://gettheshot.coronavirus.[place].gov/. It is important to note that some COVID mobile vaccine clinics are held outdoors and may be canceled in rainy or stormy conditions. To learn more about pediatric vaccinations (ages 5-11), we invite you to visit the [facility] webpage. https://www.Fiixs.org/pages/3129-Byvxc-Nemmofngccv-Yfyluteacs-Vbotm-Iqg stions.htmlTo learn more about the COVID-19 vaccine, we invite you to visit the CDC website for a list of frequently asked questions.https://www.cdc.gov/coronavirus/2019-ncov/vaccines/faq.html [employer] Patient Portal Access Instructions: Stay connected with your healthcare team and access your personal medical information anytime with the [employer] Patient Portal. Please follow the directions below to create your [employer] account: 1.Access the email account you provided upon registration to the hospital/physician office.2.Look for an invitation email from [facility].3.Open the email and access the invitation link: AcceptInvitation to [employer].4.Fill in the required otto to create your account. To access your account, visit [employer]. Click the blue button labeled "Access Patient Portal" and then log in with the username and password that you created in the steps above. You will be able to view your test results, lab results, a summary of your visits, upcoming appointments and more. There is also a convenient messaging option where you can send secure messages to your p khushboovider. In addition, you will have the ability to download any documents or summaries to your computer and/or send the information securely to a physician. Remember that your healthcare information is confidential, so carefully consider who you will allowto register on the [facility] for access to your information. You can also access the [facility] Patient Portal on the [facility] nichole. Simply click on "Patient Portal" and then log into your account. If you would like to receive a full copy of your medical records, please contact the [facility] Medical Records Department by calling [phone], Wednesday through Wednesday between 8 a.m. and 4:30 p.m. HOW TO SAFELY DISPOSE OF PRESCRIPTION MEDICATIONS Please use one of the following methods to safely dispose of your unused medications. 1.Use a drug disposal kit: the drug disposal pouch allows you to safely discard your old and unuseddrugs. Ask your nurse to give you one when you are discharged.2.Visit a local take-back location: Many local pharmacies and police departments have programs that collect old and unwanted prescriptiondrugs. Call your local pharmacy or go to http://NComputing.BuildDirect/3K2Pm5u to find one close to you.3.Make use of household items: Use cat litter or old coffee grounds to dispose medications if other options arenot available. Mix your drugs with these household products, seal them in an airtight container andthrow it into the garbage. Call [facility]: [phone] to be sure your drugs can be [...] reviewed and explained to me and I,CAITLIN GERMAIN understand my current condition and have read and understand these discharge instructions. I have received a written copy of the plan/instructions. If I have questions, I am aware that I should contact my doctor. 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 Her imaging showed pericardial effusion along with bilateral pleural effusion. She also had dilated IVC filter on echocardiogram. Patient underwent left-sided thoracentesis on January 06 for 600 cc of yellow serous fluid. Fluid analysis was exudative in nature. Herpleural effusion is likely secondary to her rheumatological disorder, started on IV steroids and tra nsition to oral steroids on the day of discharge from hospital. Blood sugars were elevated in hospital, secondary to her receiving hyposensitive steroids. She received insulin in hospital but was notdischarged on insulin, she was discharged on tapering dose of steroids so I expect her blood sugarsto be better controlled. She will need to [...] Date: January 08, 2023 Verified By: BHARATHI WELCH DO CLINICAL STATEMENT: IMPRESSION: No significant interval change. US Chest Result Date: January 07, 2023 Verified By: BLANCA GUITÉRREZ MD CLINICAL STATEMENT: IMPRESSION: CT Thorax w/o Contrast Result Date: January 06, 2023 Verified By: SJ MORTON DO CLINICAL STATEMENT: IMPRESSION: Moderate pericardial effusion, [...] left thoracentesis. New right lower lobeatelectasis may besecondary to mucoid impaction. US Thoracentesis Left Result Date: January 06, 2023 Verified By: MIMI MUIR MD CLINICAL STATEMENT: IMPRESSION: Successful ultrasound guided thoracentesis This procedure was performed by Rosa Liz PA-C under the directsupervision of Ching Garland PA-C. XR Chest 1 View Result Date: January 06, 2023 Verified By: BHARATHI LEIVA MD CLINICAL STATEMENT: IMPRESSION: Small to moderate bilateral pleural effusions with adjacent airspace disease,greater onthe left. Physical Exam Vitals and Measurements T: [...] underlying rheumatoid arthritis. 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 No need for any further antibiotics Continue [...] hours as needed as needed for wheezing. [id number] Milligram by mouth once a day. atorvastatin (atorvastatin 20 mg oral tablet)1 tab(s) by mouth daily at bedtime. DULoxetine (DULoxetine 30 mg oral delayed release capsule)2 cap by mouth daily at bedtime. famotidine (famotidine 20 mg oral tablet)1 tab(s) by mouth once a day. hydroxychloroquine (hydroxychloroquine 200 mg oral tablet)1 tab(s) by mouth two (2) times a day. Milligram by mouth every 6 hours as needed as needed for pain. leflunomide (leflunomide 20 mg oral tablet)1 tab(s) by mouth once a day. [id number] Microgram by mouth once a day. losartan (losartan 100 mg oral tablet)1 tab(s) by mouth once a day. meclizine (meclizine 25 mg oral tablet)1 tab(s) by mouth three (3) times a day as needed as needed for dizziness. metFORMIN (MetFORMIN (Eqv-Fortamet))1,000 Milligram by mouth two (2) times a day. ubiquinone (Coenzyme Q10)100 Milligram by mouth once a day. Discontinued [id number] Milligram by mouth two (2) times a day for 7 Days. Follow Up Follow Up with NEHEMIAS ARIZMENDI MD When Within 1-2 days Why: Call to make appointment Where: [address] [place] [address] [phone] Follow Up Appointments No qualifying data available. [...] follow-up within: 2-4 days, Results Notify to: NEHEMIAS ARIZMENDI MD, 01/09/23 12:55:00 EDT Discharge Studies No [...] JONATHAN POSEY MD on 01/09/2023 03:15 PM [facility] [id number] Pulmonary Progress note Date of Service 01/09/2023 [...] Date: January 08, 2023 Verified By: BHARATHI WELCH DO CLINICAL STATEMENT: IMPRESSION: No significant interval change. US Chest Result Date: January 07, 2023 Verified By: BLANCA GUTIÉRREZ MD CLINICAL STATEMENT: IMPRESSION: CT Thorax w/o Contrast Result Date: January 06, 2023 Verified By: SJ MORTON DO CLINICAL STATEMENT: IMPRESSION: Moderate pericardial effusion, [...] left thoracentesis. New right lower lobeatelectasis may besecondary to mucoid impaction. US Thoracentesis Left Result Date: January 06, 2023 Verified By: MIMI MUIR MD CLINICAL STATEMENT: IMPRESSION: Successful ultrasound guided thoracentesis This procedure was performed by Rosa Liz PA-C under the directsupervision of Ching Garland PA-C. XR Chest 1 View Result Date: January 06, 2023 Verified By: BHARATHI LEIVA MD CLINICAL STATEMENT: IMPRESSION: Small to moderate bilateral pleural effusions with adjacent airspace disease,greater onthe left. EKG No qualifying data available. Assessment/Plan [...] is elevated. Patient does have rheumatology at [place] that she follows 4. Gentle diuresis Digitally Signed by WINIFRED CUMMINS MD on 01/09/2023 10:10 AM [facility] [id number] Note Date of Service 01/08/2023 Reason for Consultation Medical management, transfer of service Referring Physician Dr. Rivas History of Present Illness Patient is a [...] Echocardiogram completed showed a EF of 50 to55%. A small pericardial effusion identified. No signs [...] shortness of breath with ambulating. Denies any weakness.Discussed her A1c result of 7.2. States she was just diagnosed with diabetes in November and her A1c atthe time was 7.4. She has been taking [...] Date: January 08, 2023 Verified By: BHARATHI WELCH DO CLINICAL STATEMENT: IMPRESSION: No significant interval change. US Chest Result Date: January 07, 2023 Verified By: BLANCA GUTIÉRREZ MD CLINICAL STATEMENT: IMPRESSION: CT Thorax w/o Contrast Result Date: January 06, 2023 Verified By: SJ MORTON DO CLINICAL STATEMENT: IMPRESSION: Moderate pericardial effusion, [...] left thoracentesis. New right lower lobeatelectasis may besecondary to mucoid impaction. US Thoracentesis Left Result Date: January 06, 2023 Verified By: MIMI MUIR MD CLINICAL STATEMENT: IMPRESSION: Successful ultrasound guided thoracentesis This procedure was performed by Rosa Liz PA-C under the directsupervision of Ching Garland PA-C. XR Chest 1 View Result Date: January 06, 2023 Verified By: BHARATHI LEIVA MD CLINICAL STATEMENT: IMPRESSION: Small to moderate bilateral pleural effusions with adjacent airspace disease,greater onthe left. Assessment/Plan 1. Diabetes mellitus type 2 [...] to be drained due to lack of volume.CT thorax completed showed moderate pericardial effusion measuring 1.2 cm to 1.9 cm. Small bilateral pleural effusions. Left lower lobe reticular and groundglass infiltrates likely infectious/inflammatory process. Benign bilateral adrenal adenomas. Echocardiogram completed showed a EF of 50 to 55%.A small pericardial effusion identified. No signs of [...] JUAN C DAO on 01/08/2023 03:10 PM [facility] [id number] Note ORIGINAL EXAMINATION: TWO XRAY VIEWS OF [...] No significant interval change. Interpreted by: Bharathi Welch DO Preliminary Report By: Bharathi Welch DO Electronically signed By Bharathi Welch DO Dictated Date: 01/08/2023 1:43:46 PM Prelim Date: 01/08/2023 1:58:59 PM Sign Date: 01/08/2023 1:58:59 PM Ordering Provider: WINIFRED ALEKS [facility]07-14-2023 Note ORIGINAL EXAMINATION: TWO XRAY VIEWS OF [...] No significant interval change. Interpreted by: Bharathi Welch DO Preliminary Report By: Bharathi Welch DO Electronically signed By Bharathi Welch DO Dictated Date: 01/08/2023 1:43:46 PM Prelim Date: 01/08/2023 1:58:59 PM Sign Date: 01/08/2023 1:58:59 PM Ordering Provider: WINIFRED [facility]07-14-2023 Pulmonary Progress note Date of Service 01/08/2023 [...] Result Date: January 06, 2023 Verified By: SJ MORTON DO CLINICAL STATEMENT: IMPRESSION: Moderate pericardial effusion, [...] left thoracentesis. New right lower lobeatelectasis may besecondary to mucoid impaction. US Thoracentesis Left Result Date: January 06, 2023 Verified By: MIMI MUIR MD CLINICAL STATEMENT: IMPRESSION: Successful ultrasound guided thoracentesis This procedure was performed by Rosa Liz PA-C under the directsupervision of Ching Garland PA-C. XR Chest 1 View Result Date: January 06, 2023 Verified By: BHARATHI LEIVA MD CLINICAL STATEMENT: IMPRESSION: Small to moderate bilateral pleural effusions with adjacent airspace disease,greater onthe left. EKG No qualifying data available. Assessment/Plan 1. Exudative pleural effusion with high protein. The LDH is low suggesting that rheumatoid arthritis as the cause is less likely but will continue await final results. Plan: 1. Repeat CXR in am 2. Continue Solu-Medrol 30 mg IV every 8 hours. 3. continue to follow. Digitally Signed by WINIFRED CUMMINS MD on 01/08/2023 10:00 AM [facility] [id number] Cardiology Progress note Date of Service 01/08/23 [...] she was transferred for further work-up to [facility]. Patient states she had a cardiac catheterization and transtho racic echocardiogram in 2021 because she has a history of dizziness, TTE was within normal limit and cardiac catheterization showed mild nonobstructive coronary artery disease. Initial vital signs here 114/72 BP, 103 heart rate, 25 respiration rate. Initial CBC showed leukocytosis and anemia. Initial BMP within normal limit. Initial chest x-ray showed bilateral pleural effusions. Pulmonology was consulted during stay for management. Patient underwent left- sided thoracentesis during stay. Patient then underwent noncontrast [...] Result Date: January 06, 2023 Verified By: SJ MORTON DO CLINICAL STATEMENT: IMPRESSION: Moderate pericardial effusion, measuring 1.2 cm to maximum 1.9 cm. Small bilateral pleural effusions. Left lower lobe reticular andground-glass infiltrates, likely an infectious/inflammatory process. Benign bilateral adrenal adenomas. CCU nurse [place] was directly informed of the pericardial effusion, pleuraleffusions, left lower lobe pneumonia at the time of the dictation. IMPORTANT PHYSICIAN INPUT NECESSARY, DO NOT FILE! XR Chest 1 View Result Date: January 06, 2023 Verified By: MELVIN MORENO DO CLINICAL STATEMENT: IMPRESSION: No visible pneumothorax post left thoracentesis. New right lower lobeatelectasis may besecondary to mucoid impaction. US Thoracentesis Left Result Date: January 06, 2023 Verified By: MIMI MUIR MD CLINICAL STATEMENT: IMPRESSION: Successful ultrasound guided thoracentesis This procedure was performed by Rosa Liz PA-C under the directsupervision of Ching Garland PA-C. XR Chest 1 View Result Date: January 06, 2023 Verified By: BHARATHI LEIVA MD CLINICAL STATEMENT: IMPRESSION: Small to moderate bilateral pleural effusions with adjacent airspace disease,greater onthe left. Transthoracic Echocardiography Study date: 01/06/2023 Study Time: 07:56 AM Summary: 1. Left ventricle: The cavity size is normal. Wall thickness is mildly increased. Systolic functionis normal. The estimated ejection fraction is 60-65%. [...] Wall thickness is mildly increased. Systolic function isnormal. The estimated ejection fraction is 60-65%. The [...] II, MD PGY-V Cardiovascular Disease Fellow Pager: [phone] Digitally Signed by BONITA RODRIGUEZ MD on 01/08/2023 01:56 PM Digitally Signed by CHRISTIANNE FULLER MD [facility] [id number] Cardiology Progress note Date of Service 01/07/23 [...] she was transferred for further work-up to [facility]. Patient states she had a cardiac catheterization and transtho racic echocardiogram in 2021 because she has a history of dizziness, TTE was within normal limit and cardiac catheterization showed mild nonobstructive coronary artery disease. Initial vital signs here 114/72 BP, 103 heart rate, 25 respiration rate. Initial CBC showed leukocytosis and anemia. Initial BMP within normal limit. Initial chest x-ray showed bilateral pleural effusions. Pulmonology was consulted during stay for management. Patient underwent left- sided thoracentesis during stay. Patient then underwent noncontrast [...] Result Date: January 06, 2023 Verified By: SJ MORTON DO CLINICAL STATEMENT: IMPRESSION: Moderate pericardial effusion, [...] left thoracentesis. New right lower lobeatelectasis may besecondary to mucoid impaction. US Thoracentesis Left Result Date: January 06, 2023 Verified By: MIMI MUIR MD CLINICAL STATEMENT: IMPRESSION: Successful ultrasound guided thoracentesis This procedure was performed by Rosa Liz PA-C under the directsupervision of Ching Garland PA-C. XR Chest 1 View Result Date: January 06, 2023 Verified By: BHARATHI LEIVA MD CLINICAL STATEMENT: IMPRESSION: Small to moderate bilateral pleural effusions with adjacent airspace disease,greater onthe left. Transthoracic Echocardiography Study date: 01/06/2023 Study Time: 07:56 AM Summary: 1. Left ventricle: The cavity size is normal. Wall thickness is mildly increased. Systolic functionis normal. The estimated ejection fraction is 60-65%. [...] Wall thickness is mildly increased. Systolic function isnormal. The estimated ejection fraction is 60-65%. The [...] II, MD PGY-V Cardiovascular Disease Fellow Pager: [phone] Digitally Signed by BONITA RODRIGUEZ MD on 01/07/2023 12:13 PM [facility] [id number] Pulmonary Progress note Date of Service 01/07/2023 Subjective 57 years old lady with smoker, history of rheumatoid arthritis for 6 years followed by rheumatologyservice, she is on a couple of oral [...] LIAM CLARK MD on 01/07/2023 01:42 PM [facility] [id number] Note ORIGINAL HISTORY: Effusion COMPARISON: Previous day FINDINGS: There is no drainable fluid collection. Interpreted by: Blanca Gutiérrez MD Preliminary Report By: Blanca Gutiérrez MD Electronically signed By Blanca Gutiérrez MD Dictated Date: 01/07/2023 10:00:13 AM Prelim Date: 01/07/2023 10:01:06 AM Sign Date: 01/07/2023 10:01:06 AM Ordering Provider: [facility]2023 Note ORIGINAL HISTORY: Effusion COMPARISON: Previous day FINDINGS: There is no drainable fluid collection. Interpreted by: Blanca Gutiérrez MD Preliminary Report By: Blanca Gutiérrez MD Electronically signed By Blanca Gutiérrez MD Dictated Date: 01/07/2023 10:00:13 AM Prelim Date: 01/07/2023 10:01:06 AM Sign Date: 01/07/2023 10:01:06 AM Ordering Provider: [facility]2023 Cardiology Progress note Date of Service 01/07/23 [...] she was transferred for further work-up to [facility]. Patient states she had a cardiac catheterization and transtho racic echocardiogram in 2021 because she has a history of dizziness, TTE was within normal limit and cardiac catheterization showed mild nonobstructive coronary artery disease. Initial vital signs here 114/72 BP, 103 heart rate, 25 respiration rate. Initial CBC showed leukocytosis and anemia. Initial BMP within normal limit. Initial chest x-ray showed bilateral pleural effusions. Pulmonology was consulted during stay for management. Patient underwent left- sided thoracentesis during stay. Patient then underwent noncontrast [...] Result Date: January 06, 2023 Verified By: SJ MORTON DO CLINICAL STATEMENT: IMPRESSION: Moderate pericardial effusion, [...] left thoracentesis. New right lower lobeatelectasis may besecondary to mucoid impaction. US Thoracentesis Left Result Date: January 06, 2023 Verified By: MIMI MUIR MD CLINICAL STATEMENT: IMPRESSION: Successful ultrasound guided thoracentesis This procedure was performed by Rosa Liz PA-C under the directsupervision of Ching Garland PA-C. XR Chest 1 View Result Date: January 06, 2023 Verified By: BHARATHI LEIVA MD CLINICAL STATEMENT: IMPRESSION: Small to moderate bilateral pleural effusions with adjacent airspace disease,greater onthe left. Transthoracic Echocardiography Study date: 01/06/2023 Study Time: 07:56 AM Summary: 1. Left ventricle: The cavity size is normal. Wall thickness is mildly increased. Systolic functionis normal. The estimated ejection fraction is 60-65%. [...] Wall thickness is mildly increased. Systolic function isnormal. The estimated ejection fraction is 60-65%. The [...] II, MD PGY-V Cardiovascular Disease Fellow Pager: [phone] Digitally Signed by BONITA RODRIGUEZ MD on 01/07/2023 12:13 PM [facility] [id number] Note ORIGINAL EXAMINATION: CT OF THE CHEST [...] INPUT NECESSARY, DO NOT FILE! Interpreted by: Sj Morton DO Preliminary Report By: Sj Morton DO Electronically signed By Sj Morton DO Dictated Date: 01/06/2023 11:54:04 PM Prelim Date: 01/07/2023 12:15:42 AM Sign Date: 01/07/2023 12:15:42 AM Ordering Provider: WINIFRED PÉREZ [facility] [id number] History and physical note Date of Service [...] she was transferred for further work-up to [facility]. 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 Interpreted by: Mimi Muir MD Preliminary Report By: Rosa Liz Electronically signed By Mimi Muir MD Dictated Date: 01/06/2023 12:03:02 PM Prelim Date: 01/06/2023 12:04:25 PM Sign Date: 01/06/2023 3:23:52 PM [facility] Note ORIGINAL PROCEDURE: ULTRASOUND GUIDED THORACENTESIS CLINICAL [...] guided thoracentesis This procedure was performed by Rosa Liz PA-C under the direct supervision of Ching Garland PA-C. Interpreted by: Mimi Muir MD Preliminary Report By: Rosa Liz Electronically signed By Mimi Muir MD Dictated Date: 01/06/2023 12:03:02 PM Prelim Date: 01/06/2023 12:04:25 PM Sign Date: 01/06/2023 3:23:52 PM Ordering Provider: [facility]07-12-2023 Note ORIGINAL EXAMINATION: CT OF THE CHEST [...] INPUT NECESSARY, DO NOT FILE! Interpreted by: Sj Morton DO Preliminary Report By: Sj Morton DO Electronically signed By Sj Morton DO Dictated Date: 01/06/2023 11:54:04 PM Prelim Date: 01/07/2023 12:15:42 AM Sign Date: 01/07/2023 12:15:42 AM Ordering Provider: [facility]07-12-2023 Evaluation + Plan noteExtracted from: Title:History and Physical Author:JACQUE RODRIGUEZ MD Date:01/06/23 #Atypical angina #Dyspnea on exertion #Acute hypoxic [...] II, MD PGY-V Cardiovascular Disease Fellow Pager: [phone] Addendum by RAUL FULLER MD on January [...] Fluid 01/06/23 * pH Body Fluid 01/06/23 [facility] 07-12-2023 Respiratory therapy Hospital Progress note [...] by GÓMEZ Valle on 01/06/2023 01:33 PM [facility] [id number] Note ORIGINAL EXAMINATION: ONE XRAY VIEW OF [...] Sign Date: 01/06/2023 12:20:37 PM Ordering Provider: ROSA LIZ [facility] [id number] Note ORIGINAL EXAMINATION: ONE XRAY VIEW OF [...] Sign Date: 01/06/2023 12:15:56 PM Ordering Provider: SHANDA ELLIOTT [facility] [id number] Pulmonary Consult note Date of Service 01/06/2023 Reason for Consultation Pleural effusions Referring Physician Dr. Rivas History of Present Illness 57-year-old woman with [...] She was transferred for further work-up to [facility]. When I saw her this morning she continues to be significantly short of breath she is sitting up in the chair feels " miserable" Review of Systems Negative except as detailed [...] WINIFRED CUMMINS MD on 01/06/2023 12:15 PM [facility] [id number] Note ORIGINAL EXAMINATION: ONE XRAY VIEW OF [...] Sign Date: 01/06/2023 12:20:37 PM [facility] Note ORIGINAL PROCEDURE: ULTRASOUND GUIDED THORACENTESIS CLINICAL [...] guided thoracentesis This procedure was performed by Rosa Liz PA-C under the direct supervision of Ching Garland PA-C. Interpreted by: Mimi Muir MD Preliminary Report By: Rosa Liz Electronically signed By Mimi Muir MD Dictated Date: 01/06/2023 12:03:02 PM Prelim Date: 01/06/2023 12:04:25 PM Sign Date: 01/06/2023 3:23:52 PM Ordering Provider: [facility]07-12-2023 Note US Procedure Record Summary Primary Physician: CHING GARLAND PA-C Finalized Date/Time: 01/06/23 11:37:34 Pt. Name: CAITLIN GERMAIN/Sex: 1965 Female Med Rec #: [id number] Physician: ARIANA RIVAS MD Financial #: [id number] Pt. 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 Flooring Installer Details Time In 01/06/23 11:18:00 01/06/23 11:17:00 01/06/23 11:20:00 Time Out 01/06/23 11:26:00 01/06/23 11:26:00 01/06/23 11:22:00 Procedure/Preference US Thoracentesis Left US Thoracentesis Left US Thoracentesis Left Card (SN) (SN) (SN) Last Modified By: Skye Adames Lauren M Clark, Lauren M 01/06/23 11:27:00 01/06/23 11:27:00 01/06/23 11:27:00 Entry 4 Case Attendee SURYA Bonner Role Performed Vinyl Flooring Installer Details Time In 01/06/23 11:23:00 Time Out 01/06/23 11:26:00 Procedure/Preference US Thoracentesis Left Card (SN) Last Modified By: Skye Adames 01/06/23 11:27:00 Radiology Procedures- US Entry 1 Procedure/Preference US Thoracentesis Left Actual Procedure US THORACENTESIS LEFT Card (SN) Primary Procedure Yes Primary Surgeon CHING GARLAND PA-C Anesthesia/Sedation Local Type Additional Procedure Times Start 01/06/23 11:20:00 Stop 01/06/23 11:26:00 Specialty Service SN Radiology Procedure EBL 0 mL Last Modified By: Skye Adames 01/06/23 11:27:05 Cultures and Specimens- US Entry 1 Kind Specimen Type Fluid Last Modified By: Skye Adames 01/06/23 11:20:57 General Case Data- US Entry 1 Case Information Room [facility] Receiving Case Level None Wound Class None Specialty SN Radiology Procedure ASA Class None Diagnosis Preop Diagnosis pleural eff Postop Same As Preop Yes Postop Diagnosis pleural eff Last Modified By: Skye Adames 01/06/23 11:21:26 Medication Administration- US Entry 1 Medication 2% Lidocaine Route of Admin Local Dose 10 VORB Administered by Yes Administered by: ROSA LIZ PA-C Physician? Last Modified By: Skye [...] Immediate Post Procedure Note- US Signed By: ROSA LIZ PA-C 01/06/23 11:33 Allergy Information- US [...] Prep Prep Area Back Side Left By ROSA LIZ PA-C Prep Agents Chloraprep Hair Removal [...] instrumentation, sponges, or sharps). Outcomes Met? Yes Maintenance Manager Skye Adames Completing Procedure Plan Last Modified By: Skye Adames 01/06/23 11:21:14 Radiology Lines and Procedures- US Entry 1 Radiology Sedation Case Times Sedation Total Time 0 Radiology - Fluid/Drainage RAD - US Terry, Guidewires, Cath.... Catheters M-Drain Centesis Miscellaneous Items [...] on patient Completed Verfied ID Band on CHING GARLAND by Kailey HERNANDEZ TECH Valerie A Last Modified By: Skye Adames 01/06/23 11:25:37 Case Comments Finalized By: Skye Adames Document Signatures Signed By: Skye Adames 01/06/23 11:37 [facility] [id number] Procedure note IR Brief Post Procedure Note Preprocedure Dx: Left Pleural Effusion PERICARDIAL EFFUSION, CHF Post Procedure Dx: Same Procedure: 1. Ultrasound Guided Left Thoracentesis Industrial Roof Plumber: Rosa Liz PA-C Gasket Former: None Anesthesia: Local EBL: Minimal Complications: No immediate complications suspected Status: Stable Findings: 1. 600 mL yellow serous fluid drained from left pleural space. 2. Patient tolerated the procedure well with minimal discomfort. Plan: 1. CXR 2. Fluid sent to lab. Full report to follow. Orders in [employer]. Rosa Liz PA-C Interventional Radiology US Dept [id number] Available on [employer] Digitally Signed by ROSA LIZ PA-C on 01/06/2023 11:36 AM [facility] [id number] History and physical note Date of Service [...] she was transferred for further work-up to [facility]. 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 Allergies: As documented in chart Review of [...] II, MD PGY-V Cardiovascular Disease Fellow Pager: [phone] Problem List/Past Medical History Ongoing Arthritis H/O [...] BONITA RODRIGUEZ MD on 01/06/2023 09:58 AM [facility] [id number] Note ORIGINAL EXAMINATION: ONE XRAY VIEW OF [...] Sign Date: 01/06/2023 12:15:56 PM Ordering Provider: [facility]07-12-2023 Discharge summary Author Wayne Germain [facility] January 06, 2023 12:07am Note Date/Time January 05, 2023 3:28 pm [facility] Medical Records Department [address] [place] [address] Emergency Department Summary 01/05/23 MR#: [id number] Acct: [id number] Name: DYLONCAITLIN K Rep #:[id number] : 1965 57 From: Wayne Germain DO PCP: Dr. Nehemias Arizmendi MD Status:REG E R Location: ED HPI History of Present Illness Chief Complaint: Shortness of Breath Narrative Narrative: 57-year-old female presenting with chest pain and shortness of breath. She was seen 2 days ago for similar symptoms. She initially hypoxic but after breathingtreatments improved. She was sent home on doxycycline. She states been taking it but she is not doing any better. She initially had fevers and chills but these have resolved. She feels generalized weakness. She is short of breath. She is coughing. Patient still having chest pain which she describes as an achein the center of her chest but radiates to the back. She is not having ripping or tearing sensation. Patient states he is never had an HI. She does have diabetes, hypertension, hyperlipidemia. [facility] Medical History Abnormal cardiac CT angiography Back pain Cardiology follow-up encounter DVT (deep venous thrombosis) Essential hypertension Heartburn High cholesterol History of echocardiogram History of Holter monitoring History of left heart catheterization (LHC) (~03/24/22) History of steroid therapy History of stress test Hypertension Kyphosis Leg cramps Lightheadedness Loss of hearing Mixed hyperlipidemia Near syncope Rheumatoid arthritis Shortness of breath on exertion Smoker Tachycardia Thyroid disease Vertigo Wears dentures Wears glasses Home Medications meclizine 25 mg tablet 25 mg PO TID PRN dizziness 12/16/21 [History Last Taken Unknown] amlodipine 10 mg tablet 10 mg PO DAILY 01/01/22 [History Last Taken 04/15/22] hydroxychloroquine 200 mg tablet 200 mg PO BID 01/01/22 [History Last Taken Unknown] leflunomide 10 mg tablet (Arava) 20 mg PO DAILY 01/01/22 [History Last Taken Unknown] losartan 100 mg tablet 100 mg PO DAILY 01/01/22 [History Last Taken 04/15/22] atorvastatin 20 mg tablet 20 mg PO QHS #30 tabs 04/15/22 [Rx Last Taken Unknown] duloxetine 30 mg capsule,delayed release 60 mg PO QHS 09/16/22 [History Last Taken Unknown] famotidine 20 mg tablet 20 mg PO DAILY 09/16/22 [History Last Taken Unknown] ibuprofen 200 mg tablet (Advil) 200 mg PO Q6H 09/16/22 [History Last Taken Unknown] levothyroxine 150 mcg tablet See Rx Instructions .Route .COMPLEX #90 tabs 11/02/22 [Rx Last Taken Unknown] coenzyme Q10 100 mg tablet 100 mg PO DAILY 11/16/22 [History Last Taken Unknown] metformin 1,000 mg tablet 1,000 mg PO BID 11/16/22 [History Last Taken Unknown] prednisone 10 mg tablet 10 mg PO DAILY PRN ARTHRITIS FLARE UP 11/16/22 [History Last Taken Unknown] albuterol sulfate 90 mcg/actuation breath activated powder inhaler 2 inh inhalation Q4H PRN shortness of breath or wheezing #1 ea 01/03/23 [Rx Last Taken Unknown] doxycycline hyclate 100 mg capsule 100 mg PO BID 7 days #14 caps 01/03/23 [Rx Last Taken Unknown] Allergy/AdvReac Type Severity Reaction Status Date / Time Sulfa (Sulfonamide Allergy Unknown Hives Verified 01/05/23 14:50 Antibiotics) Family History Sister Breast cancer Hypertension Diabetes Sister Myocardial infarction, Onset Age: 30 Surgical History History of appendectomy History of cardiac catheterization (~02/2022) History of laparoscopic cholecystectomy History of total thyroidectomy S/P thyroid biopsy (~02/2022) Social History Smoking Status: Current every day smoker tobacco type: cigarettes Tobacco: How many years used: 30 second hand exposure: Yes alcohol intake: current alcohol intake frequency: holidays/special occasions only substance use type: does not use caffeine: Yes Type: coffee Number of servings: 3 seatbelt use: always EXAM Physical Exam Const Vital Signs: 01/05/23 14:49 01/05/23 15:04 01/05/23 15:07 Temperature 97.5 F L Temperature Source Temporal Pulse Rate 103 H Respiratory Rate 18 Respiratory Effort Respiratory Depth Respiratory Pattern Blood Pressure 89/65 L 120/74 Blood Pressure Mean 73 89 Pulse Ox 90 88 Oxygen Delivery Method Room Air Room Air Room Air Oxygen Flow Rate (L/min) 01/05/23 15:08 01/05/23 15:08 01/05/23 15:30 Temperature 97.9 F Temperature Source Temporal Pulse Rate 101 H Respiratory Rate 15 Respiratory Effort Short of Breath Labored Accessory Muscle Use Respiratory Depth Shallow Respiratory Pattern Tachypnea Blood Pressure 120/74 Blood Pressure Mean 89 Pulse Ox 93 Oxygen Delivery Method Nasal Cannula Nasal Cannula Room Air Oxygen Flow Rate (L/min) 2 2 01/05/23 15:53 01/05/23 16:02 01/05/23 16:02 Temperature 97.2 F L Temperature Source Temporal Pulse Rate 94 94 95 Respiratory Rate 18 18 20 H Respiratory Effort Respiratory Depth Respiratory Pattern Normal Blood Pressure 92/73 92/73 Blood Pressure Mean 79 79 Pulse Ox 99 94 Oxygen Delivery Method Nasal Cannula Nasal Cannula Oxygen Flow Rate (L/min) 2 2 01/05/23 16:27 01/05/23 16:40 01/05/23 17:28 Temperature 98.3 F Temperature Source Oral Pulse Rate 98 99 103 H Respiratory Rate 24 H 26 H 18 Respiratory Effort Respiratory Depth Respiratory Pattern Blood Pressure 111/72 106/82 H 103/75 Blood Pressure Mean 85 90 84 Pulse Ox 90 91 93 Oxygen Delivery Method Nasal Cannula Nasal Cannula Nasal Cannula Oxygen Flow Rate (L/min) 2 2 3 01/05/23 17:28 01/05/23 19:05 01/05/23 19:05 Temperature 98 F Temperature Source Oral Pulse Rate 103 H 103 H 98 Respiratory Rate 23 H 18 20 H Respiratory Effort Respiratory Depth Respiratory Pattern Blood Pressure 108/71 99/68 99/68 Blood Pressure Mean 83 78 78 Pulse Ox 91 94 93 Oxygen Delivery Method Nasal Cannula Nasal Cannula Nasal Cannula Oxygen Flow Rate (L/min) 3 3 3 01/05/23 20:26 01/05/23 20:26 01/05/23 21:26 Temperature 98.7 F Temperature Source Oral Pulse Rate 102 H 104 H 103 H Respiratory Rate 27 H 24 H 26 H Respiratory Effort Respiratory Depth Respiratory Pattern Blood Pressure 106/72 106/72 109/73 Blood Pressure Mean 83 83 85 Pulse Ox 92 90 90 Oxygen Delivery Method Nasal Cannula Nasal Cannula Nasal Cannula Oxygen Flow Rate (L/min) 3 3 3 01/05/23 22:11 01/05/23 22:46 01/05/23 23:02 Temperature Temperature Source Pulse Rate 104 H 103 H 105 H Respiratory Rate 20 H 23 H 31 H Respiratory Effort Respiratory Depth Respiratory Pattern Blood Pressure 119/59 L 114/79 104/82 H Blood Pressure Mean 79 90 89 Pulse Ox 95 91 87 Oxygen Delivery Method Room Air Nasal Cannula Nasal Cannula Oxygen Flow Rate (L/min) 3 3 01/05/23 23:05 01/05/23 23:15 Temperature Temperature Source Pulse Rate 102 H Respiratory Rate 28 H Respiratory Effort Respiratory Depth Respiratory Pattern Blood Pressure 124/78 H Blood Pressure Mean 93 Pulse Ox 90 91 Oxygen Delivery Method Nasal Cannula Nasal Cannula Oxygen Flow Rate (L/min) 4 4 MDM MDM MDM Narrative Medical decision making narrative: Patient presenting for chest pain and hypoxia. She has been short of breath forcouple days. She states that she started initially with fever and chills prior to her recent visit to the ER. She had continued chest pain which is retrosternal. She is also coughing. She does not have any more fevers or chills but she is severely short of breath. She had a normal cardiac catheterization this year and a normal echo. Differential includes acute coronary syndrome, CHF, pneumonia, PE, costochondritis, COPD exacerbation. CBC was obtained to assess white blood cell count, hemoglobin, platelets, differential. BMP to assess renal function, electrolytes. High- sensitivity troponin EKG to rule out ischemic source. Chest x-ray to rule out pneumonia. BNP will used to assess for CHF. D-dimer will be obtained to assess for PE. Patient was given a liter normal saline. She is given initial dose of morphine for pain. She was given Zofran for nausea. CBC shows a normal white blood cellcount. Hemoglobin stable 11.0. Platelets normal. Renal function and electrolytes within normal limits. Glucose 172 without anion gap. High-sensitivity troponin is 6 and with pain constantly for the last couple days and ablations at delta. BNP was 45.4. Chest x-ray on my interpretation is consistent with CHF and pleural effusions. It is possible she could have pneumonia however she does not have a white blood cell count. D-dimer was elevated at 5.7 today and had a CTA of the chest which showed pneumonia versus pleural effusions versus CHF. It does show a pericardial effusion which is moderate. Discussed with the hospitalist for admission who spoke to cardiology here and was recommended for the patient be transferred due to the pericardial effusion in case she needs a pericardial window. Discussed with Dr. Wallace at [facility] because this is where the patient wanted to be transferred. He acceptedthe transfer. She has been stable here. I gave her another dose of fentanyl for pain because her blood pressure dropped with the morphine. All questions were answered. Impression: 1. Chest pain 2. CHF 3. Hypoxia Lab Data Labs: Laboratory Results - last 24 hr 01/05/23 15:02 WBC 10.3 RBC 3.87 L Hgb 11.0 L Hct 34.8 L MCV 89.9 MCH 28.4 MCHC 31.6 L RDW Std Deviation 45.4 H RDW Coeff of Layla 13.9 Plt Count 278 MPV 9.6 Immature Gran % (Auto) 0.500 Neut % (Auto) 76.7 H Lymph % (Auto) 10.1 L Amelia % (Auto) 10.0 Eos % (Auto) 2.3 Baso % (Auto) 0.4 Absolute Neuts (auto) 7.9 H Absolute Lymphs (auto) 1.04 Nucleated RBC % 0 D-Dimer Quant (PE/DVT) 5.70 H* Sodium 139 Potassium 3.5 Chloride 107 Carbon Dioxide 27.0 Anion Gap 5 BUN 18 Creatinine 0.60 Estim Creat Clear Calc 83.51 Est GFR (MDRD) Af Amer 131 Est GFR (MDRD) Non-Af 108 BUN/Creatinine Ratio 29.9 H Glucose 172 H Calcium 9.1 Troponin I High Sens 6 B-Natriuretic Peptide 45.4 Radiography Diagnostic Testing: Clinical Impression(s) from Imaging Studies Chest X-Ray 01/05/23 15:43 IMPRESSION: Progression of the bibasilar infiltration and/or atelectasis with blunting of both costophrenic angles worse on the left side superimposed on mild degree of CHF. Electronically Signed: Kt Healy MD at 15:54 EDT , Chest CTA 01/05/23 16:55 IMPRESSION: CTA chest examination, without a demonstrated pulmonary embolism or arterial dissection. Bilateral edema or pneumonia and pleural effusions. Pericardial effusion. Electronically Signed: Jeremiah Orellana MD at 18:57 EDT , Discharge Plan Triage Chief Complaint: Shortness of Breath ED Provider: Wayne Germain Dx/Rx/DC Orders Prescriptions: No Action hydroxychloroquine 200 mg tablet 200 mg PO BID losartan 100 mg tablet 100 mg PO DAILY amlodipine 10 mg tablet 10 mg PO DAILY meclizine 25 mg tablet 25 mg PO TID PRN (Reason: dizziness) leflunomide [Arava] 10 mg tablet 20 mg PO DAILY duloxetine 30 mg capsule,delayed release(DR/EC) 60 mg PO QHS famotidine 20 mg tablet 20 mg PO DAILY ibuprofen [Advil] 200 mg tablet 200 mg PO Q6H metformin 1,000 mg tablet 1,000 mg PO BID prednisone 10 mg tablet 10 mg PO DAILY PRN (Reason: ARTHRITIS FLARE UP) coenzyme Q10 100 mg tablet 100 mg PO DAILY Hold Instructions: Pt has been DC'd doxycycline hyclate 100 mg capsule 100 mg PO BID 7 Days Qty: 14 0RF albuterol sulfate 90 mcg/actuation aerosol powdr breath activated 2 inh inhalation Q4H PRN (Reason: shortness of breath or wheezing) Qty: 1 0RF Rx Instructions: any standard albuterol inhaler in stock atorvastatin 20 mg tablet 20 mg PO QHS Qty: 30 12RF levothyroxine 150 mcg tablet See Rx Instructions .ROUTE .COMPLEX Qty: 90 0RF Dose Instruction: TAKE 1 TABLET BY MOUTH EVERY DAY Rx Instructions: TAKE 1 TABLET BY MOUTH EVERY DAY Primary Care Provider: Nehemias Arizmendi Referrals: Nehemias Arizmendi MD [Primary Care Provider] - What to do if you have Problems For any increased pain, shortness of breath, bleeding, nausea or vomiting, chestpain, or any unexpected problems, contact your Primary Care Provider. Call [facility] ([phone]) or report to the closest Emergency Room. Call 911 if necessary. 01/06/236 <Electronically signed by Wayne Germain DO> Cosigner Signature (if applicable): CC: Dr. Nehemias Arizmendi MD ~ Signed [facility] Work Phone: evaluation noteNo assessment information available [facility] Work Phone: evaluation note* Diagnosis Onset Date Resolution Status Abnormal electrocardiogram a cute Dyspnea on exertion acute Essential hypertension acute Tachycardia acute [facility] Work Phone: evaluation note* Diagnosis Onset Date Resolution Status Abnormal electrocardiogram a cute Dyspnea on exertion acute Essential hypertension acute Tachycardia acute Left thyroid nodule acute Right thyroid nodule acute Abnormal electrocardiogram a cute Abnormal stress test acute Dyspnea on exertion acute Essential hypertension acute Tachycardia acute Left thyroid nodule acute [facility] Work Phone: evaluation note* Diagnosis Onset Date Resolution Status Abnormal electrocardiogram a cute Dyspnea on exertion acute Essential hypertension acute Tachycardia acute Left thyroid nodule acute Right thyroid nodule acute Abnormal electrocardiogram a cute Abnormal stress test acute Dyspnea on exertion acute Essential hypertension acute Tachycardia acute Left thyroid nodule acute Abnormal electrocardiogram a cute Essential hypertension acute Tachycardia acute [facility] Work Phone: evaluation note* Diagnosis Onset Date Resolution Status Abnormal electrocardiogram a cute Dyspnea on exertion acute Essential hypertension acute Tachycardia acute Left thyroid nodule acute Right thyroid nodule acute Abnormal electrocardiogram a cute Abnormal stress test acute Dyspnea on exertion acute Essential hypertension acute Tachycardia acute Left thyroid nodule acute Abnormal electrocardiogram a cute Essential hypertension acute Tachycardia acute Left thyroid nodule acute Rheumatoid arthritis acute Right thyroid nodule acute [facility] Work Phone: evaluation note* Diagnosis Onset Date Resolution Status Abnormal electrocardiogram a cute Dyspnea on exertion acute Essential hypertension acute Tachycardia acute Left thyroid nodule acute Right thyroid nodule acute Abnormal electrocardiogram a cute Abnormal stress test acute Dyspnea on exertion acute Essential hypertension acute Tachycardia acute Left thyroid nodule acute Abnormal electrocardiogram a cute Essential hypertension acute Tachycardia acute Left thyroid nodule acute Rheumatoid arthritis acute Right thyroid nodule acute Left thyroid nodule acute [facility] Work Phone: Evaluation note* Diagnosis Onset Date Resolution Status Right thyroid nodule acute Left thyroid nodule resolved Abnormal electrocardiogram a cute Abnormal stress test acute Dyspnea on exertion acute Essential hypertension acute Tachycardia acute Left thyroid nodule resolved Abnormal electrocardiogram a cute Essential hypertension acute Tachycardia acute Rheumatoid arthritis acute Right thyroid nodule acute Left thyroid nodule resolved Left thyroid nodule resolved S/P total thyroidectomy acut e [facility] Work Phone: Evaluation note* Diagnosis Onset Date Resolution Status Right thyroid nodule acute Left thyroid nodule resolved Abnormal electrocardiogram a cute Abnormal stress test acute Dyspnea on exertion acute Essential hypertension acute Tachycardia acute Left thyroid nodule resolved Abnormal electrocardiogram a cute Essential hypertension acute Tachycardia acute Rheumatoid arthritis acute Right thyroid nodule acute Left thyroid nodule resolved Left thyroid nodule resolved S/P total thyroidectomy acut e Abnormal stress test acute Current smoker acute Dyspnea on exertion acute Essential hypertension acute Tachycardia acute [facility] Work Phone: Evaluation note* Diagnosis Onset Date Resolution Status Abnormal electrocardiogram a cute Essential hypertension acute Tachycardia acute Rheumatoid arthritis acute Right thyroid nodule acute Left thyroid nodule resolved Left thyroid nodule resolved S/P total thyroidectomy acut e Abnormal stress test acute Current smoker acute Dyspnea on exertion acute Essential hypertension acute Tachycardia acute [facility] Work Phone: Evaluation note* Diagnosis Onset Date Resolution Status S/P total thyroidectomy acut e Abnormal stress test acute Current smoker acute Dyspnea on exertion acute Essential hypertension acute Tachycardia acute [facility] Work Phone: Evaluation note* Diagnosis Onset Date Resolution Status Polyneuropathy acute Hyperglycemia chronic Peripheral vestibulopathy re solved [facility] Work Phone: Evaluation note* Diagnosis Onset Date Resolution Status Polyneuropathy acute Hyperglycemia chronic Peripheral vestibulopathy re solved Abnormal stress test acute Current smoker acute Essential hypertension acute Tachycardia acute [facility] Work Phone: Hospital course Narrative No data available for this section [facility] Hospital Discharge instructions Additional Instructions Take doxycycline and use the inhaler as needed for wheezing and shortness of breath. 7 or you have more difficulty breathing come back to the emergency room.[facility] Work Phone: Hospital Discharge instructions No data available for this section [facility] Progress note No data available for this section [facility] Reason for referral (narrative)No reason for referral [facility]: Chief Complaint and Reason for Visit Chief Complaint HIP PAIN TACHYCARDIA TACHYCARDIA Chief Complaint TACHYCARDIA TACHYCARDIA Chief Complaint TACHYCARDIA TACHYCARDIA Amb Documentation tachycardia/ref. arizmendi SAUCEDA, TACHYCARDIA, ABN EKG Reason for Visit Abnormal electrocard iogram Dyspnea on exertion Essential hypertension Tachycardia Chief Complaint TACHYCARDIA TACHYCARDIA Amb Documentation tachycardia/ref. arizmendi SAUCEDA, TACHYCARDIA, ABN EKG NODULES Reason for Visit Abnormal electrocard iogram Dyspnea on exertion Essential hypertension Tachycardia Chief Complaint Amb Documentation tachycardia/ref. arizmendi SAUCEDA, TACHYCARDIA, ABN EKG NODULES DYSPNEA/SOB DYSPNEA/SOB Amb Documentation DISCUSS THYROID U/S 6 WK FU E ORDER L THYROID FNA - AFFIRMA Reason for Visit Abnormal electrocard iogram Dyspnea on exertion Essential hypertension Tachycardia Left thyroid nodule Right thyroid nodule Abnormal electrocardiogram Abnormal stress test Dyspnea on exertion Essential hypertension Tachycardia Left thyroid nodule Chief Complaint Amb Documentation tachycardia/ref. arizmendi SAUCEDA, TACHYCARDIA, ABN EKG NODULES DYSPNEA/SOB DYSPNEA/SOB Amb Documentation DISCUSS THYROID U/S 6 WK FU E ORDER L THYROID FNA - AFFIRMA ABN STRESS TEST *MOODISPAW-NO CALCIUM SCORING* ABN STRESS TEST *MOODISPAW-NO CALCIUM SCORING* Reason for Visit Abnormal electrocard iogram Dyspnea on exertion Essential hypertension Tachycardia Left thyroid nodule Right thyroid nodule Abnormal electrocardiogram Abnormal stress test Dyspnea on exertion Essential hypertension Tachycardia Left thyroid nodule Chief Complaint Amb Documentation tachycardia/ref. arizmendi SAUCEDA, TACHYCARDIA, ABN EKG NODULES DYSPNEA/SOB DYSPNEA/SOB Amb Documentation DISCUSS THYROID U/S 6 WK FU E ORDER L THYROID FNA - AFFIRMA ABN STRESS TEST *MOODISPAW-NO CALCIUM SCORING* ABN STRESS TEST *MOODISPAW-NO CALCIUM SCORING* DIZZINESS, DEAF NONSPEAKING *ATTENTION IAC* Reason for Visit Abnormal electrocard iogram Dyspnea on exertion Essential hypertension Tachycardia Left thyroid nodule Right thyroid nodule Abnormal electrocardiogram Abnormal stress test Dyspnea on exertion Essential hypertension Tachycardia Left thyroid nodule Chief Complaint Amb Documentation tachycardia/ref. arizmendi SAUCEDA, TACHYCARDIA, ABN EKG NODULES DYSPNEA/SOB DYSPNEA/SOB Amb Documentation DISCUSS THYROID U/S 6 WK FU E ORDER ABN STRESS, SOB, ABN EKG L THYROID FNA - AFFIRMA ABN STRESS TEST *MOODISPAW-NO CALCIUM SCORING* ABN STRESS TEST *MOODISPAW-NO CALCIUM SCORING* DIZZINESS, DEAF NONSPEAKING *ATTENTION IAC* CATH TEACHING ABN STRESS, SOB, ABN EKG Reason for Visit Abnormal electrocard iogram Dyspnea on exertion Essential hypertension Tachycardia Left thyroid nodule Right thyroid nodule Abnormal electrocardiogram Abnormal stress test Dyspnea on exertion Essential hypertension Tachycardia Left thyroid nodule Abnormal electrocardiogram Essential hypertension Tachycardia Chief Complaint Amb Documentation tachycardia/ref. arizmendi SAUCEDA, TACHYCARDIA, ABN EKG NODULES DYSPNEA/SOB DYSPNEA/SOB Amb Documentation DISCUSS THYROID U/S 6 WK FU E ORDER ABN STRESS, SOB, ABN EKG L THYROID FNA - AFFIRMA ABN STRESS TEST *MOODISPAW-NO CALCIUM SCORING* ABN STRESS TEST *MOODISPAW-NO CALCIUM SCORING* DIZZINESS, DEAF NONSPEAKING *ATTENTION IAC* CATH TEACHING ABN STRESS, SOB, ABN EKG discuss Affirma LIGHTHEADEDNESS Reason for Visit Abnormal electrocard iogram Dyspnea on exertion Essential hypertension Tachycardia Left thyroid nodule Right thyroid nodule Abnormal electrocardiogram Abnormal stress test Dyspnea on exertion Essential hypertension Tachycardia Left thyroid nodule Abnormal electrocardiogram Essential hypertension Tachycardia Left thyroid nodule Rheumatoid arthritis Right thyroid nodule Chief Complaint Amb Documentation tachycardia/ref. arizmendi SAUCEDA, TACHYCARDIA, ABN EKG NODULES DYSPNEA/SOB DYSPNEA/SOB Amb Documentation DISCUSS THYROID U/S 6 WK FU E ORDER ABN STRESS, SOB, ABN EKG L THYROID FNA - AFFIRMA ABN STRESS TEST *MOODISPAW-NO CALCIUM SCORING* ABN STRESS TEST *MOODISPAW-NO CALCIUM SCORING* DIZZINESS, DEAF NONSPEAKING *ATTENTION IAC* CATH TEACHING ABN STRESS, SOB, ABN EKG discuss Affirma LIGHTHEADEDNESS EORDER THYROIDECTOMY THYROIDECTOMY Reason for Visit Abnormal electrocard iogram Dyspnea on exertion Essential hypertension Tachycardia Left thyroid nodule Right thyroid nodule Abnormal electrocardiogram Abnormal stress test Dyspnea on exertion Essential hypertension Tachycardia Left thyroid nodule Abnormal electrocardiogram Essential hypertension Tachycardia Left thyroid nodule Rheumatoid arthritis Right thyroid nodule Chief Complaint Amb Documentation tachycardia/ref. arizmendi SAUCEDA, TACHYCARDIA, ABN EKG NODULES DYSPNEA/SOB DYSPNEA/SOB Amb Documentation DISCUSS THYROID U/S 6 WK FU E ORDER ABN STRESS, SOB, ABN EKG L THYROID FNA - AFFIRMA ABN STRESS TEST *MOODISPAW-NO CALCIUM SCORING* ABN STRESS TEST *MOODISPAW-NO CALCIUM SCORING* DIZZINESS, DEAF NONSPEAKING *ATTENTION IAC* CATH TEACHING ABN STRESS, SOB, ABN EKG discuss Affirma LIGHTHEADEDNESS EORDER THYROIDECTOMY THYROIDECTOMY Reason for Visit Abnormal electrocard iogram Dyspnea on exertion Essential hypertension Tachycardia Left thyroid nodule Right thyroid nodule Abnormal electrocardiogram Abnormal stress test Dyspnea on exertion Essential hypertension Tachycardia Left thyroid nodule Abnormal electrocardiogram Essential hypertension Tachycardia Left thyroid nodule Rheumatoid arthritis Right thyroid nodule Left thyroid nodule Chief Complaint SAUCEDA, TACHYCARDIA, AB N EKG NODULES DYSPNEA/SOB DYSPNEA/SOB Amb Documentation DISCUSS THYROID U/S 6 WK FU E ORDER ABN STRESS, SOB, ABN EKG L THYROID FNA - AFFIRMA ABN STRESS TEST *MOODISPAW-NO CALCIUM SCORING* ABN STRESS TEST *MOODISPAW-NO CALCIUM SCORING* DIZZINESS, DEAF NONSPEAKING *ATTENTION IAC* CATH TEACHING ABN STRESS, SOB, ABN EKG discuss Affirma LIGHTHEADEDNESS EORDER THYROIDECTOMY THYROIDECTOMY THYROID 04/15 Reason for Visit Right thyroid nodule Left thyroid nodule Abnormal electrocardiogram Abnormal stress test Dyspnea on exertion Essential hypertension Tachycardia Left thyroid nodule Abnormal electrocardiogram Essential hypertension Tachycardia Rheumatoid arthritis Right thyroid nodule Left thyroid nodule Left thyroid nodule S/P total thyroidectomy Chief Complaint SAUCEDA, TACHYCARDIA, AB N EKG NODULES DYSPNEA/SOB DYSPNEA/SOB Amb Documentation DISCUSS THYROID U/S 6 WK FU E ORDER ABN STRESS, SOB, ABN EKG L THYROID FNA - AFFIRMA ABN STRESS TEST *MOODISPAW-NO CALCIUM SCORING* ABN STRESS TEST *MOODISPAW-NO CALCIUM SCORING* DIZZINESS, DEAF NONSPEAKING *ATTENTION IAC* CATH TEACHING ABN STRESS, SOB, ABN EKG discuss Affirma LIGHTHEADEDNESS EORDER THYROIDECTOMY THYROIDECTOMY THYROID 04/15 3 M FU Reason for Visit Right thyroid nodule Left thyroid nodule Abnormal electrocardiogram Abnormal stress test Dyspnea on exertion Essential hypertension Tachycardia Left thyroid nodule Abnormal electrocardiogram Essential hypertension Tachycardia Rheumatoid arthritis Right thyroid nodule Left thyroid nodule Left thyroid nodule S/P total thyroidectomy Abnormal stress test Current smoker Dyspnea on exertion Essential hypertension Tachycardia Chief Complaint DYSPNEA/SOB DYSPNEA/SOB Amb Documentation DISCUSS THYROID U/S 6 WK FU E ORDER ABN STRESS, SOB, ABN EKG L THYROID FNA - AFFIRMA ABN STRESS TEST *MOODISPAW-NO CALCIUM SCORING* ABN STRESS TEST *MOODISPAW-NO CALCIUM SCORING* DIZZINESS, DEAF NONSPEAKING *ATTENTION IAC* CATH TEACHING ABN STRESS, SOB, ABN EKG discuss Affirma LIGHTHEADEDNESS EORDER THYROIDECTOMY THYROIDECTOMY THYROID 04/15 3 M FU Reason for Visit Right thyroid nodule Left thyroid nodule Abnormal electrocardiogram Abnormal stress test Dyspnea on exertion Essential hypertension Tachycardia Left thyroid nodule Abnormal electrocardiogram Essential hypertension Tachycardia Rheumatoid arthritis Right thyroid nodule Left thyroid nodule Left thyroid nodule S/P total thyroidectomy Abnormal stress test Current smoker Dyspnea on exertion Essential hypertension Tachycardia Chief Complaint ABN STRESS TEST *MOO DISPAW-NO CALCIUM SCORING* ABN STRESS TEST *MOODISPAW-NO CALCIUM SCORING* DIZZINESS, DEAF NONSPEAKING *ATTENTION IAC* CATH TEACHING ABN STRESS, SOB, ABN EKG discuss Affirma LIGHTHEADEDNESS EORDER THYROIDECTOMY THYROIDECTOMY THYROID 04/15 3 M FU S/P TOTAL THYROIDECTOMY Reason for Visit Abnormal electrocard iogram Essential hypertension Tachycardia Rheumatoid arthritis Right thyroid nodule Left thyroid nodule Left thyroid nodule S/P total thyroidectomy Abnormal stress test Current smoker Dyspnea on exertion Essential hypertension Tachycardia Chief Complaint THYROID 04/15 3 M FU S/P TOTAL THYROIDECTOMY Reason for Visit S/P total thyroidect paula Abnormal stress test Current smoker Dyspnea on exertion Essential hypertension Tachycardia Chief Complaint S/P TOTAL THYROIDECT PAULA Dizziness (neurology) EORDER Reason for Visit Polyneuropathy Hyperglycemia Peripheral vestibulopathy Chief Complaint Dizziness (neurology ) EORDER Reason for Visit Polyneuropathy Hyperglycemia Peripheral vestibulopathy Chief Complaint Dizziness (neurology ) EORDER 6 m fu CHEST PAIN Reason for Visit Polyneuropathy Hyperglycemia Peripheral vestibulopathy Abnormal stress test Current smoker Essential hypertension Tachycardia Chief Complaint Dizziness (neurology ) EORDER 6 m fu CHEST PAIN SOB Reason for Visit Polyneuropathy Hyperglycemia Peripheral vestibulopathy Abnormal stress test Current smoker Essential hypertension Tachycardia Chief Complaint Admit Date PE, ACUTE HYPOXIA October 18, 2024 10: 50pm Chief Complaint Admit Date LARGE PE, HYPOCIA AND RUQ PAIN September 11:07pm LARGE PE, HYPOCIA AND RUQ PAIN September 4:14pm LARGE PE, HYPOCIA AND RUQ PAIN September 5:21pm LARGE PE, HYPOCIA AND RUQ PAIN September 7:52am LARGE PE, HYPOCIA AND RUQ PAIN September 7:22pm LARGE PE, HYPOCIA AND RUQ PAIN September 6:08am LARGE PE, HYPOCIA AND RUQ PAIN September 5:47pm LARGE PE, HYPOCIA AND RUQ PAIN September 1:38pm S/O- PAIN- COPY PCP November 21, 2024 1:29p m Reason for Visit Admit Date Acute respiratory insufficiency October 182024 11:07pm DVT (deep venous thrombosis) October 18, 2024 11:07pm Pulmonary embolism October 18, 2024 11: 07pm Morbid obesity with BMI of 40.0-44.9, ad ult October 18, 2024 11:07pm Chief Complaint Admit Date LARGE PE, HYPOCIA AND RUQ PAIN September 11:07pm LARGE PE, HYPOCIA AND RUQ PAIN September 4:14pm LARGE PE, HYPOCIA AND RUQ PAIN September 5:21pm LARGE PE, HYPOCIA AND RUQ PAIN September 7:52am LARGE PE, HYPOCIA AND RUQ PAIN September 7:22pm LARGE PE, HYPOCIA AND RUQ PAIN September 6:08am LARGE PE, HYPOCIA AND RUQ PAIN September 5:47pm LARGE PE, HYPOCIA AND RUQ PAIN September 1:38pm S/O- PAIN- COPY PCP November 21, 2024 1:29p m CONCERN FOR BLADDER INFECTION January 14, 2025 9:45am Reason for Visit Admit Date Acute respiratory insufficiency October 182024 11:07pm DVT (deep venous thrombosis) October 18, 2024 11:07pm Pulmonary embolism October 18, 2024 11: 07pm Morbid obesity with BMI of 40.0-44.9, ad ult October 18, 2024 11:07pm Tachycardia January 14, 2025 9:45 am UTI (urinary tract infection) January 14, 2025 9:45am Family History Relationship Condition Age at Onset Recorded Date/T ghada sister Malignant neoplasm of breast Unknown Hypertension Unknown Diabetes mellitus Unknown Relationship Condition Age at Onset Recorded Date/T ghada sister Malignant neoplasm of breast Unknown Hypertension Unknown Diabetes mellitus Unknown sister Myocardial infarction 30 Advance Directives Advance Directive Response Recorded Date/ Time Advance Directives No February 7:39am Living Will No March 24, 2022 7:39am Power of Care Clinician No February 7:39am Advance Directive Response Recorded Date/ Time Advance Directives No February 7:39am Living Will No April 08 10:06am Power of Care Clinician No April 08, 2022 10:06am Advance Directive Response Recorded Date/ Time Advance Directives No February 7:39am Living Will No April 15 1:33pm Power of Care Clinician No April 15, 2022 1:33pm Advance Directive Response Recorded Date/ Time Advance Directives No February 6:39am Living Will No April 15 12:33pm Power of Care Clinician No April 15, 2022 12:33pm Advance Directive Response Recorded Date/ Time Advance Directives No February 7:39am Living Will No January 03, 2023 1 1:25am Power of Care Clinician No January 03, 2023 11:25am Advance Directive Response Recorded Date/ Time Advance Directives No February 7:39am Living Will No January 05, 2023 3:04pm Power of Care Clinician No January 05 3:04pm Advance Directive Response Recorded Date/ Time Advance Directives No February 6:39am Living Will No January 05, 2023 2:04pm Power of Care Clinician No January 05 2:04pm Advance Directive Response Recorded Date/ Time Advance Directives No February 7:39am Advance Directive Response Recorded Date/ Time Do you have a Healthcare Power of Care Clinician? No October 18, 2024 7:33pm Advance Directives No February 7:39am Advance Directive Response Recorded Date/ Time Do you have a Healthcare Power of Care Clinician? No October 18, 2024 11:10pm Advance Directives No February 7:39am Summary Purpose Additional Source Comments Goals (unrecognized section and content) Goals may be documented in a n alternate sectionGoals may be documented in an alternate sectionGoals may be documented in an alternate sectionGoals may be documented in an alternate sectionGoals may be documented in an alternate sectionGoals may be documented in an alternate sectionGoals may be documented in an alternate sectionGoals may be documented in an alternate sectionGoals may be documented in an alternate sectionGoals may be documented in an alternate sectionGoals may be documented in an alternate sectionGoals may be documented in an alternate sectionGoals may be documented in an alternate sectionGoals may be documented in an alternate section No data available for this sectionGoals may be documented in an alternate sectionGoals may be documented in an alternate sectionGoals may be documented in an alternate section No data available for this sectionGoals may be documented in an alternate sectionGoals may be documented in an alternate sectionGoals may be documented in an alternate section Care Teams (unrecognized sec tion and content) Team Status: Active Member Role Status Dates Dr. Nehemias Arizmendi MD Primary Care Provider Active Team Status: Inactive Member Role Status Dates Dr. Nehemias Arizmendi MD Primary Care Provider Active Start: August 22, 2024 End: August 22, 2024 Dr. Diana Ramos MD Attending Provider Active Start: August 22, 2024 End: August 22, 2024 Team Status: Active Member Role Status Dates Dr. Nehemias Arizmendi MD Primary Care Provider Active Start: October 18, 2024 Dr. Kyler Hay DO Emergency Provider Activ e Start: October 18, 2024 Dr. Bharathi Robles DO Admit Provider Active Start: October 18, 2024 Dr. Bharathi Robles DO Attending Provider Active Start: October 18, 2024 Team Status: Active Member Role Status Dates Dr. Nehemias Arizmendi MD Family Provider Active Dr. Nehemias Arizmendi MD Primary Care Provider Active Team Status: Inactive Member Role Status Dates Dr. Nehemias Arizmendi MD Primary Care Provider, Referring Provider Active Rahel Mosley [employer], [employer] Attending Provider Active Team Status: Inactive Member Role Status Dates Dr. Nehemias Arizmendi MD Primary Care Provider, Referring Provider Active Roxana YO PA-C Attending Provider Active Team Status: Inactive Member Role Status Dates Dr. Nehemias Arizmendi MD Primary Care Provider Active Roxana YO PA-C Attending Provider, Referring Provider Active Dr. Edgar Jefferson MD Other Provider Active Team Status: Inactive Member Role Status Dates Dr. Nehemias Arizmendi MD Primary Care Provider Active Dr. Diana Ramos MD Attending Provider Active Team Status: Inactive Member Role Status Dates Dr. Nehemias Arizmendi MD Primary Care Provider Active Dr. Edgar Jefferson MD Attending Provider, Referring Provider Active Team Status: Inactive Member Role Status Dates Dr. Nehemias Arizmendi MD Primary Care Provider, Attending Provider Active Team Status: Inactive Member Role Status Dates Dr. Nehemias Arizmendi MD Primary Care Provider, Referring Provider Active Dr. Jason Swift MD Attending Provider Active Team Status: Inactive Member Role Status Dates Dr. Nehemias Arizmendi MD Primary Care Provider Active Dr. Jason Swift MD Attending Provider Active Team Status: Active Member Role Status Dates Dr. Nehemias Arizmendi MD Primary Care Provider Active Dr. Diana Ramos MD Attending Provider Active Team Status: Inactive Member Role Status Dates Dr. Nehemias Arizmendi MD Primary Care Provider Active Dr. Benson Mendez DO Emergency Provider Active Team Status: Inactive Member Role Status Dates Dr. Nehemias Arizmendi MD Primary Care Provider Active Dr. Wayne Germain DO Emergency Provider Active Team Status: Inactive Member Role Status Dates Dr. Nehemias Arizmendi MD Primary Care Provider Active Dr. Benson Mendez DO Attending Provider, Emergency Provide r Active Team Status: Inactive Member Role Status Dates Dr. Nehemias Arizmendi MD Primary Care Provider Active Dr. Wayne Germain DO Attending Provider, Emergency Provider Active Team Status: Inactive Member Role Status Dates Dr. Nehemias Arizmendi MD Primary Care Provi kiran, Attending Provider, Referring Provider Active Team Status: Inactive Member Role Status Dates Dr. Nehemias Arizmendi MD Primary Care Provider Active Start: May 29, 2024 End: May 29, 2024 Dr. Diana Ramos MD Attending Provider Active Start: May 29, 2024 End: May 29, 2024 Team Status: Inactive Member Role Status Dates Dr. Nehemias Arizmendi MD Primary Care Provider Active Start: October 18, 2024 End: October 23, 2024 Dr. Kyler Hay DO Emergency Provider Activ e Start: October 18, 2024 End: October 23, 2024 Dr. Bharathi Robles , Admit Provider Active Start: October 18, 2024 End: October 23, 2024 Dr. Bharathi Robles DO Other Provider Active Start: October 18, 2024 End: October 23, 2024 Dr. Dre Lilly MD Other Provider Active Start : October 18, 2024 End: October 23, 2024 Dr. Leobardo Stoo , DO Attending Provider Active Start: October 18, 2024 End: October 23, 2024 Dr. Sy Gr , DO Other Provider Active S tart: October 18, 2024 End: October 23, 2024 Team Status: Active Member Role Status Dates Dr. Nehemias Arizmendi MD Primary Care Provider Active Start: October 19, 2024 Dr. Baljinder Salinas MD Attending Provider Active S tart: October 19, 2024 Team Status: Active Member Role Status Dates Dr. Nehemias Arizmendi MD Primary Care Provider Active Start: October 19, 2024 Dr. Dre Lilly MD Attending Provider Active S tart: October 19, 2024 Dr. Bharathi Robles , Referring Provider Active Start: October 19, 2024 Team Status: Active Member Role Status Dates Dr. Nehemias Arizmendi MD Primary Care Provider Active Start: October 19, 2024 Dr. Kyler Hay , DO Emergency Provider Activ e Start: October 19, 2024 Dr. Bharathi Robles , DO Admit Provider Active Start: October 19, 2024 Dr. Bharathi Robles , DO Other Provider Active Start: October 19, 2024 Dr. Sy Gr , Attending Provider Active Start: October 19, 2024 Dr. Sy Gr , DO Other Provider Active S tart: October 19, 2024 Dr. Dre Lilly MD Other Provider Active Start : October 19, 2024 Team Status: Active Member Role Status Dates Dr. Nehemias Arizmendi MD Primary Care Provider Active Start: October 19, 2024 Dr. Kyler Hay , DO Emergency Provider Activ e Start: October 19, 2024 Dr. Bharathi Robles , DO Admit Provider Active Start: October 19, 2024 Dr. Bharathi Robles , DO Other Provider Active Start: October 19, 2024 Dr. Sy Gr , DO Other Provider Active S tart: October 19, 2024 Dr. Dre Lilly MD Other Provider Active Start : October 19, 2024 SANAZ Elaine Attending Provider Active Star t: October 19, 2024 Dr. Leobardo Soto , DO Referring Provider Active Start: October 19, 2024 Team Status: Active Member Role Status Dates Dr. Nehemias Arizmendi MD Primary Care Provider Active Start: October 20, 2024 Dr. Kyler Hay , DO Emergency Provider Activ e Start: October 20, 2024 Dr. Bharathi Robles , DO Admit Provider Active Start: October 20, 2024 Dr. Bharathi Robles , DO Other Provider Active Start: October 20, 2024 Dr. Sy Gr , DO Other Provider Active S tart: October 20, 2024 Dr. Dre Lilly MD Other Provider Active Start : October 20, 2024 SANAZ Elaine Attending Provider Active Star t: October 20, 2024 Dr. Leobardo Soto , DO Referring Provider Active Start: October 20, 2024 Team Status: Active Member Role Status Dates Dr. Nehemias Arizmendi MD Primary Care Provider Active Start: October 20, 2024 Dr. Kyler Hay , DO Emergency Provider Activ e Start: October 20, 2024 Dr. Bharathi Robles , DO Admit Provider Active Start: October 20, 2024 Dr. Bharathi Robles , DO Other Provider Active Start: October 20, 2024 Dr. Sy Gr , DO Attending Provider Active Start: October 20, 2024 Dr. Sy Gr , DO Other Provider Active S tart: October 20, 2024 Dr. Dre Lilly MD Other Provider Active Start : October 20, 2024 Team Status: Active Member Role Status Dates Dr. Nehemias Arizmendi MD Primary Care Provider Active Start: October 21, 2024 Dr. Kyler Hay , DO Emergency Provider Activ e Start: October 21, 2024 Dr. Bharathi Robles , DO Admit Provider Active Start: October 21, 2024 Dr. Bharathi Robles , DO Attending Provider Active Start: October 21, 2024 Dr. Bharathi Robles , DO Other Provider Active Start: October 21, 2024 Dr. Sy Gr , DO Other Provider Active S tart: October 21, 2024 Dr. Dre Lilly MD Other Provider Active Start : October 21, 2024 Team Status: Active Member Role Status Dates Dr. Nehemias Arizmendi MD Primary Care Provider Active Start: October 22, 2024 Dr. Kyler Hay , DO Emergency Provider Activ e Start: October 22, 2024 Dr. Bharathi Robles , DO Admit Provider Active Start: October 22, 2024 Dr. Bharathi Robles , DO Other Provider Active Start: October 22, 2024 Dr. Sy Gr , DO Attending Provider Active Start: October 22, 2024 Dr. Sy Gr , DO Other Provider Active S tart: October 22, 2024 Dr. Dre Lilly MD Other Provider Active Start : October 22, 2024 Team Status: Active Member Role Status Dates Dr. Nehemias Arizmendi MD Primary Care Provider Active Start: October 23, 2024 Dr. Kyler Hay , DO Emergency Provider Activ e Start: October 23, 2024 Dr. Bharathi Robles , DO Admit Provider Active Start: October 23, 2024 Dr. Bharathi Robles , DO Other Provider Active Start: October 23, 2024 Dr. Dre Lilly MD Other Provider Active Start : October 23, 2024 Dr. Leobardo Soto , DO Attending Provider Active Start: October 23, 2024 Dr. Leobardo Soto , DO Other Provider Active Start: October 23, 2024 Dr. Sy Gr , DO Other Provider Active S tart: October 23, 2024 Team Status: Inactive Member Role Status Dates Dr. Nehemias Arizmendi MD Primary Care Provider Active Start: November 21, 2024 End: November 21, 2024 Dr. Diana Ramos MD Attending Provider Active Start: November 21, 2024 End: November 21, 2024 Dr. Diana Ramos MD Referring Provider Active Start: November 21, 2024 End: November 21, 2024 Team Status: Inactive Member Role Status Dates Dr. Nehemias Arizmendi MD Primary Care Provider Active Start: November 27, 2024 End: November 27, 2024 Dr. Nehemias Arizmendi MD Attending Provider Active Start: November 27, 2024 End: November 27, 2024 Dr. Nehemias Arizmendi MD Referring Provider Active Start: November 27, 2024 End: November 27, 2024 Team Status: Active Member Role/Relationship Status Dates Dr. Nehemias Arizmendi MD Primary Care Provider Active Team Status: Inactive Member Role/Relationship Status Dates Dr. Nehemias Arizmendi MD Primary Care Provider Active Start: October 18, 2024 End: October 23, 2024 Dr. Kyler Hay DO Emergency Provider Activ e Start: October 18, 2024 End: October 23, 2024 Dr. Bharathi Robles , DO Admit Provider Active Start: October 18, 2024 End: October 23, 2024 Dr. Bharathi Robles DO Other Provider Active Start: October 18, 2024 End: October 23, 2024 Dr. Dre Lilly MD Other Provider Active Start : October 18, 2024 End: October 23, 2024 Dr. Leobardo Soto , DO Attending Provider Active Start: October 18, 2024 End: October 23, 2024 Dr. Sy Gr , DO Other Provider Active S tart: October 18, 2024 End: October 23, 2024 Team Status: Active Member Role/Relationship Status Dates Dr. Nehemias Arizmendi MD Primary Care Provider Active Start: October 19, 2024 Dr. Baljinder Salinas MD Attending Provider Active S tart: October 19, 2024 Team Status: Active Member Role/Relationship Status Dates Dr. Nehemias Arizmendi MD Primary Care Provider Active Start: October 19, 2024 Dr. Dre Lilly MD Attending Provider Active S tart: October 19, 2024 Dr. Bharathi Robles DO Referring Provider Active Start: October 19, 2024 Team Status: Active Member Role/Relationship Status Dates Dr. Nehemias Arizmendi MD Primary Care Provider Active Start: October 19, 2024 Dr. Kyler Hay DO Emergency Provider Activ e Start: October 19, 2024 Dr. Bharathi Robles , DO Admit Provider Active Start: October 19, 2024 Dr. Bharathi Robles , DO Other Provider Active Start: October 19, 2024 Dr. Sy Gr , Attending Provider Active Start: October 19, 2024 Dr. Sy Gr , DO Other Provider Active S tart: October 19, 2024 Dr. Dre Lilly MD Other Provider Active Start : October 19, 2024 Team Status: Active Member Role/Relationship Status Dates Dr. Nehemias Arizmendi MD Primary Care Provider Active Start: October 19, 2024 Dr. Kyler Hay DO Emergency Provider Activ e Start: October 19, 2024 Dr. Bharathi Robels , DO Admit Provider Active Start: October 19, 2024 Dr. Bharathi Robles , DO Other Provider Active Start: October 19, 2024 Dr. Sy Gr , DO Other Provider Active S tart: October 19, 2024 Dr. Dre Lilly MD Other Provider Active Start : October 19, 2024 SANAZ Elaine Attending Provider Active Star t: October 19, 2024 Dr. Leobardo Soto , DO Referring Provider Active Start: October 19, 2024 Team Status: Active Member Role/Relationship Status Dates Dr. Nehemias Arizmendi MD Primary Care Provider Active Start: October 20, 2024 Dr. Kyler Hay , DO Emergency Provider Activ e Start: October 20, 2024 Dr. Bharathi Robles , DO Admit Provider Active Start: October 20, 2024 Dr. Bharathi Robles , DO Other Provider Active Start: October 20, 2024 Dr. Sy Gr , DO Other Provider Active S tart: October 20, 2024 Dr. Dre Lilly MD Other Provider Active Start : October 20, 2024 SANAZ Elaine Attending Provider Active Star t: October 20, 2024 Dr. Leobardo Soto , DO Referring Provider Active Start: October 20, 2024 Team Status: Active Member Role/Relationship Status Dates Dr. Nehemias Arizmendi MD Primary Care Provider Active Start: October 20, 2024 Dr. Kyler Hay , DO Emergency Provider Activ e Start: October 20, 2024 Dr. Bharathi Robles , DO Admit Provider Active Start: October 20, 2024 Dr. Bharathi Robles , DO Other Provider Active Start: October 20, 2024 Dr. Sy Gr , DO Attending Provider Active Start: October 20, 2024 Dr. Sy Gr , DO Other Provider Active S tart: October 20, 2024 Dr. Dre Lilly MD Other Provider Active Start : October 20, 2024 Team Status: Active Member Role/Relationship Status Dates Dr. Nehemias Arizmendi MD Primary Care Provider Active Start: October 21, 2024 Dr. Kyler Hay , DO Emergency Provider Activ e Start: October 21, 2024 Dr. Bharathi Robles , DO Admit Provider Active Start: October 21, 2024 Dr. Bharathi Robles , DO Attending Provider Active Start: October 21, 2024 Dr. Bharathi Robles , DO Other Provider Active Start: October 21, 2024 Dr. Sy Gr , DO Other Provider Active S tart: October 21, 2024 Dr. Dre Lilly MD Other Provider Active Start : October 21, 2024 Team Status: Active Member Role/Relationship Status Dates Dr. Nehemias Airzmendi MD Primary Care Provider Active Start: October 22, 2024 Dr. Kyler Hay , DO Emergency Provider Activ e Start: October 22, 2024 Dr. Bharathi Robles , DO Admit Provider Active Start: October 22, 2024 Dr. Bharathi Robles , DO Other Provider Active Start: October 22, 2024 Dr. Sy Gr , DO Attending Provider Active Start: October 22, 2024 Dr. Sy Gr , DO Other Provider Active S tart: October 22, 2024 Dr. Dre Lilly MD Other Provider Active Start : October 22, 2024 Team Status: Active Member Role/Relationship Status Dates Dr. Nehemias Arizmendi MD Primary Care Provider Active Start: October 23, 2024 Dr. Kyler Hay , DO Emergency Provider Activ e Start: October 23, 2024 Dr. Bharathi Robles , DO Admit Provider Active Start: October 23, 2024 Dr. Bharathi Robles , DO Other Provider Active Start: October 23, 2024 Dr. Dre Lilly MD Other Provider Active Start : October 23, 2024 Dr. Leobardo Soto , DO Attending Provider Active Start: October 23, 2024 Dr. Leobardo Soto , DO Other Provider Active Start: October 23, 2024 Dr. Sy Gr , DO Other Provider Active S tart: October 23, 2024 Team Status: Inactive Member Role/Relationship Status Dates Dr. Nehemias Arizmendi MD Primary Care Provider Active Start: November 21, 2024 End: November 21, 2024 Dr. Diana Ramos MD Attending Provider Active Start: November 21, 2024 End: November 21, 2024 Dr. Diana Ramos MD Referring Provider Active Start: November 21, 2024 End: November 21, 2024 Team Status: Inactive Member Role/Relationship Status Dates Dr. Nehemias Arizmendi MD Primary Care Provider Active Start: November 27, 2024 End: November 27, 2024 Dr. Nehemias Arizmendi MD Attending Provider Active Start: November 27, 2024 End: November 27, 2024 Dr. Nehemias Arizmendi MD Referring Provider Active Start: November 27, 2024 End: November 27, 2024 Team Status: Inactive Member Role/Relationship Status Dates Dr. Nehemias Arizmendi MD Primary Care Provider Active Start: January 14, 2025 End: January 14, 2025 Dr. Nehemias Arizmendi MD Referring Provider Active Start: January 14, 2025 End: January 14, 2025 Yrn Champion [employer], [employer] Attending Provider Active S tart: January 14, 2025 End: January 14, 2025 INFORMATION SOURCE (unrecogn ized section and content) DATE CREATED AUTHOR 01/12/2023 [facility] [place] ([place] DATE CREATED AUTHOR AUTHOR'S ORGANIZ ATION 12/01/[address] [facility] FOR RECORDS PERTAINING TO PATIENTS WHO ARE [...] BE BASED ON THE PRIMARY CLINICAL RECORDS. [facility] [employer] [facility]. provides no warranty or guarantee of the accuracy or completeness of information in this document.
[2025-01-14] MEDS: 0.9% Normal Saline (1000mL) 1,000 ML 999 ML IV ×4 (18:50→23:53)
--- NOTE | 2025-01-14 18:50 | EX.ED.DYSGE1 ---
HPI History of Present Illness Chief Complaint: Fever Informant: patient Onset/Context/Timing Onset: Today and Yesterday Context: Gradual Onset Timing: Continuous Current Severity: Severe Maximum Severity: Severe Narrative Narrative: 59-year-old female history diabetes, DVT and PE on Eliquis. Today was seen at a local urgent care diagnosed with UTI placed on Macrobid. At home she got pale certainly shortness of breath fever and chills and they brought her to emergency department of the way and she had an episode of vomiting x 1. She is a known diabetic her blood sugar is 153. Prior similar symptoms: No Recent Illness/Hospitalization: Yes [facility] Medical History Morbid obesity with BMI of 40.0-44.9, adult Renal cyst Adrenal nodule Loss of hearing Wears glasses Wears dentures History of steroid therapy Thyroid disease DVT (deep venous thrombosis) High cholesterol Back pain Vertigo Heartburn Smoker Shortness of breath on exertion Leg cramps Hypertension Cardiology follow-up encounter History of Holter monitoring History of echocardiogram History of stress test Lightheadedness Near syncope Mixed hyperlipidemia History of left heart catheterization (LHC) (~03/24/22) Abnormal cardiac CT angiography Tachycardia Essential hypertension Kyphosis Rheumatoid arthritis Home Medications Medication Instructions Recorded Last Taken Type meclizine 25 mg tablet 25 mg PO TID PRN dizziness 12/16/21 Unknown History amlodipine 10 mg tablet 10 mg PO DAILY bp 01/01/22 04/15/22 History hydroxychloroquine 200 mg tablet 200 mg PO BID ra 01/01/22 Unknown History losartan 100 mg tablet 100 mg PO DAILY 01/01/22 04/15/22 History metformin 1,000 mg tablet 1,000 mg PO BID dm 11/16/22 Unknown History atorvastatin 20 mg tablet See Rx Instructions .Route 05/05/23 Unknown Rx .COMPLEX hld #90 tabs leflunomide 20 mg tablet 20 mg PO DAILY arthritis 01/28/24 Unknown History dapagliflozin propanediol 10 mg 10 mg PO DAILY 10/18/24 Unknown History tablet (Farxiga) apixaban 5 mg tablet (Eliquis) 5 mg PO BID 01/14/25 Unknown History famotidine 20 mg tablet 20 mg PO QDAY 01/14/25 Unknown History furosemide 20 mg tablet 20 mg PO DAILY 01/14/25 Unknown History gabapentin 100 mg capsule 100 mg PO TID 01/14/25 Unknown History levothyroxine 137 mcg tablet 137 mcg PO DAILY hypothyroidism 01/14/25 Unknown History tirzepatide 2.5 mg/0.5 mL 2.5 mg subcut QWEEK diabetes 01/14/25 Unknown History subcutaneous pen injector (Mounjaro) Allergy/AdvReac Type Severity Reaction Status Date / Time Sulfa (Sulfonamide Allergy Unknown Hives Verified 01/14/25 09:46 Antibiotics) Family History Sister Breast cancer Hypertension Diabetes Sister Myocardial infarction, Onset Age: 30 Surgical History History of total thyroidectomy History of cardiac catheterization (~02/2022) S/P thyroid biopsy (~02/2022) History of laparoscopic cholecystectomy History of appendectomy Social History Smoking Status: Current every day smoker tobacco type: cigarettes Tobacco: How many years used: 30 second hand exposure: Yes alcohol intake: current alcohol intake frequency: holidays/special occasions only substance use type: does not use caffeine: Yes Type: coffee Number of servings: 3 seatbelt use: always ROS ROS ED ROS Narrative Urinary frequency. Chills. Nausea vomiting x 1. Constitutional Constitutional ED: Reports chills; Denies fever(s) Eyes Eyes: Denies blurry vision ENT ENT ED: Denies ear pain Cardiovascular Cardiovascular: Denies chest pain Respiratory/Chest Respiratory/Chest: Denies cough or dyspnea Gastrointestinal Gastrointestinal: Reports nausea and vomiting; Denies abdominal pain Genitourinary Genitourinary ED: Reports dysuria and urinary frequency Musculoskeletal Musculoskeletal: Denies arthralgias Integumentary Denies abscess Neurologic Neurologic: Denies headache(s) Psychiatric Psychiatric: Denies anxiety Endocrine Endocrinology: Denies cold intolerance Hematologic/Lymphatic Hematologic/Lymphatic: Reports none Allergic/Immunologic Allergic/Immunologic ED: Denies mouth swelling, tongue swelling or urticaria EXAM Physical Exam Narrative Exam Narrative: 59-year-old female vital signs tachycardic 140s. Pulse ox 90% on 2 L hypoxic. She looks ill. She may be septic. She is diaphoretic and clammy. Initial blood pressure 126/75. H EENT exam pupils round react light. Mytrex members. Neck nontender JVD. Lungs clear to auscultation bilaterally. Heart tachycardic 130 no murmur. Chest wall ribs nontender. Abdomen soft nontender. No peritoneal signs. Moving all 4 extremities. 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 Normal dorsi plantarflexion. Skin is cool and clammy. Back nontender. Neurologically she is awake alert. Answer questions following commands. Const Vital Signs: 01/14/25 18:23 01/14/25 18:37 01/14/25 19:00 Temperature 97.8 F 98.0 F Temperature Source Temporal Oral Pulse Rate 145 H 115 H Respiratory Rate 22 H 29 H Respiratory Effort Respiratory Pattern Blood Pressure 126/75 H 91/45 L Blood Pressure Mean 92 60 Pulse Ox 90 93 95 Oxygen Delivery Method Nasal Cannula Nasal Cannula Nasal Cannula Oxygen Flow Rate (L/min) 2 2 2 01/14/25 19:00 01/14/25 19:22 01/14/25 19:51 Temperature 99.9 F H Temperature Source Oral Pulse Rate 115 H 112 H Respiratory Rate 34 H 37 H Respiratory Effort Normal Non-Labored Respiratory Pattern Normal Blood Pressure 91/46 L 102/52 L Blood Pressure Mean 61 68 Pulse Ox 95 100 Oxygen Delivery Method Nasal Cannula Nasal Cannula Oxygen Flow Rate (L/min) 2 2 01/14/25 20:15 01/14/25 20:44 01/14/25 20:45 Temperature Temperature Source Pulse Rate 116 H 115 H Respiratory Rate 41 H 39 H Respiratory Effort Respiratory Pattern Blood Pressure 82/53 L Blood Pressure Mean 63 Pulse Ox 94 87 86 Oxygen Delivery Method Nasal Cannula Oxygen Flow Rate (L/min) 2 01/14/25 20:47 01/14/25 20:51 01/14/25 20:51 Temperature 98.6 F Temperature Source Oral Pulse Rate 114 H 109 H 114 H Respiratory Rate 28 H 27 H 33 H Respiratory Effort Respiratory Pattern Blood Pressure 87/53 L 87/53 L Blood Pressure Mean 64 64 Pulse Ox 89 85 95 Oxygen Delivery Method Nasal Cannula Nasal Cannula Oxygen Flow Rate (L/min) 2 3 01/14/25 20:59 01/14/25 20:59 01/14/25 21:00 Temperature Temperature Source Pulse Rate 110 H 113 H Respiratory Rate 24 H 31 H Respiratory Effort Respiratory Pattern Blood Pressure Blood Pressure Mean Pulse Ox 90 94 92 Oxygen Delivery Method Nasal Cannula Nasal Cannula Nasal Cannula Oxygen Flow Rate (L/min) 3 4 4 01/14/25 21:45 01/14/25 21:55 01/14/25 22:00 Temperature 98.6 F 98.3 F 98.9 F Temperature Source Oral Oral Pulse Rate 104 H 101 H Respiratory Rate 23 H 25 H Respiratory Effort Respiratory Pattern Blood Pressure 86/55 L 104/61 Blood Pressure Mean 65 75 Pulse Ox 97 97 Oxygen Delivery Method Nasal Cannula Oxygen Flow Rate (L/min) 4 Positive well nourished and well developed; Negative for cachectic, contractures or unkempt General Appearance ED: well developed, diaphoretic and pallor; Negative for unkempt, cachectic, contractures, cyanotic or NAD Nutritional Appearance: Negative for cachectic HEENT Reports moist mucous membranes Eyes PERRL and EOMs intact bilaterally Neck no lymphadenopathy, supple and no JVD Chest Wall inspection of chest normal and palpation of chest normal Resp normal respiratory effort and clear to auscultation bilaterally Cardio regular rhythm, S1 normal heart sound, S2 normal heart sound and no murmurs; Negative for regular rate Rate: tachycardic GI normal to inspection, nondistended, normoactive bowel sounds, non-tender, non-distended and no masses Palpation: soft; Negative for tender, guarding or rebound tenderness present Back/Spine no CVA tenderness General Back: Negative for CVA tenderness Cervical Spine: Negative for cervical spine tenderness Thoracic Spine / Upper Back: Negative for thoracic spinal tenderness or paraspinal muscle tenderness Lumbar Spine / Lower Back: Negative for lumbar spinal tenderness Extremity normal to inspection General Extremety ED: Negative for edema or tenderness General Extremity: Negative for edema Neuro oriented x3 and CN's II-XII intact bilaterally Sensorium / Orientation: alert Motor Exam: strength 5/5 throughout Psych mental status grossly normal Appearance: Negative for unkempt Skin no rashes or lesions noted, no wounds and skin turgor normal Skin Narrative: Diaphoretic cool and clammy skin. General Skin Exam: elasticity normal and pallor; Negative for jaundice Lesions: No lesion noted Rashes: No rashes noted Trauma: Negative for abrasion Wounds: Negative for wounds noted MDM MDM MDM Narrative Medical decision making narrative: 59-year-old female concern for sepsis. She is tachycardic and diaphoretic. Recent UTI symptoms. Undergo septic workup with a liter normal saline. Will be started on IV antibiotics as soon as we have a source. Repeat exam at 9 PM. Patient remains hypotensive but her abdomen is benign. She does not feel any worse. She has received 2 L of fluid and she is currently on her third. Due to the urinary tract infection she will be started on Rocephin IV which has been ordered. Due to the hypoxia I did obtain a CTA of her chest with a abdomen and pelvis. This may all be secondary to UTI and urosepsis. Hospitalist will be paged for admission. Repeat exam patient is resting comfortably at 10:03 PM. Current blood pressures in the 90s. I reviewed his CTA chest and CT abdomen pelvis. Awaiting formal radiology interpretation. Of the hospitalist on page for admission. Currently patient is being treated for UTI, hypotension and suspected urosepsis. She is awake alert. Abdomen is benign. I spoke to the night hospitalist. Patient will be admitted to PCU. He will follow-up with CT results. History & Record Review Discussion w/independent historian: Patient and Family Additional record(s) reviewed:: Prior inpatient record, Prior outpatient record, Prior ED visit and Prior labs Lab Data Attestation: I reviewed the patient's lab results. Lab results narrative: CBC shows a white count 3.1. H&H 14 and 43. Platelets 156. 63% neutrophils. 16% bands. Chemistries show normal sodium. Elevated anion gap of 18. Normal BUN and creatinine. Lactic acid 2.7. Troponin 18. 2-hour troponin elevated at 192. BNP 265. Urine shows 5-10 red cells. 10-25 white cells. No bacteria. No nitrites. Labs: Laboratory Results - last 24 hr 01/14/25 01/14/25 01/14/25 18:37 18:37 18:37 WBC 3.1 L RBC 5.18 Hgb 14.7 Hct 43.1 MCV 83.2 MCH 28.4 MCHC 34.1 RDW Std Deviation 45.7 H RDW Coeff of Layla 15.1 H Plt Count 156 MPV 9.9 Neut % (Auto) Not Reportable Absolute Neuts (auto) 2.4 Absolute Lymphs (auto) 0.47 L Total Counted 100 Neutrophils % (Manual) 63 Band Neutrophils % 16 H Lymphocytes % (Manual) 15 L Metamyelocytes % 6 H Platelet Estimate ADEQUATE PT INR APTT Sodium 136 Cancelled Potassium 3.9 Cancelled Chloride 101 Carbon Dioxide Anion Gap BUN Creatinine Estim Creat Clear Calc Est GFR (MDRD) Non-Af BUN/Creatinine Ratio Glucose Lactic Acid Calcium Total Bilirubin AST ALT Alkaline Phosphatase Troponin T High Sens Troponin T Hi Sens 2 Hr NT pro BNP II Total Protein Albumin Globulin Albumin/Globulin Ratio Urine Color Urine Clarity Urine pH Ur Specific [place] Urine Protein Urine Glucose (UA) Urine Ketones Urine Occult Blood Urine Nitrite Urine Bilirubin Urine Urobilinogen Ur Leukocyte Esterase Urine RBC Urine WBC Ur Squamous Epith Cells Ur Renal Epithelial Cell Urine Bacteria Urine Mucus 01/14/25 01/14/25 01/14/25 18:37 18:37 18:37 WBC RBC Hgb Hct MCV MCH MCHC RDW Std Deviation RDW Coeff of Layla Plt Count MPV Neut % (Auto) Absolute Neuts (auto) Absolute Lymphs (auto) Total Counted Neutrophils % (Manual) Band Neutrophils % Lymphocytes % (Manual) Metamyelocytes % Platelet Estimate PT INR APTT Sodium Potassium Chloride Cancelled Carbon Dioxide 16.5 L Cancelled Anion Gap 18 H Cancelled BUN 14 Creatinine Estim Creat Clear Calc Est GFR (MDRD) Non-Af BUN/Creatinine Ratio Glucose Lactic Acid Calcium Total Bilirubin AST ALT Alkaline Phosphatase Troponin T High Sens Troponin T Hi Sens 2 Hr NT pro BNP II Total Protein Albumin Globulin Albumin/Globulin Ratio Urine Color Urine Clarity Urine pH Ur Specific [place] Urine Protein Urine Glucose (UA) Urine Ketones Urine Occult Blood Urine Nitrite Urine Bilirubin Urine Urobilinogen Ur Leukocyte Esterase Urine RBC Urine WBC Ur Squamous Epith Cells Ur Renal Epithelial Cell Urine Bacteria Urine Mucus 01/14/25 01/14/25 01/14/25 18:37 18:37 18:37 WBC RBC Hgb Hct MCV MCH MCHC RDW Std Deviation RDW Coeff of Layla Plt Count MPV Neut % (Auto) Absolute Neuts (auto) Absolute Lymphs (auto) Total Counted Neutrophils % (Manual) Band Neutrophils % Lymphocytes % (Manual) Metamyelocytes % Platelet Estimate PT INR APTT Sodium Potassium Chloride Carbon Dioxide Anion Gap BUN Cancelled Creatinine 0.71 Cancelled Estim Creat Clear Calc 87.56 Cancelled Est GFR (MDRD) Non-Af 97 BUN/Creatinine Ratio Glucose Lactic Acid Calcium Total Bilirubin AST ALT Alkaline Phosphatase Troponin T High Sens Troponin T Hi Sens 2 Hr NT pro BNP II Total Protein Albumin Globulin Albumin/Globulin Ratio Urine Color Urine Clarity Urine pH Ur Specific [place] Urine Protein Urine Glucose (UA) Urine Ketones Urine Occult Blood Urine Nitrite Urine Bilirubin Urine Urobilinogen Ur Leukocyte Esterase Urine RBC Urine WBC Ur Squamous Epith Cells Ur Renal Epithelial Cell Urine Bacteria Urine Mucus 01/14/25 01/14/25 01/14/25 18:37 18:37 18:37 WBC RBC Hgb Hct MCV MCH MCHC RDW Std Deviation RDW Coeff of Layla Plt Count MPV Neut % (Auto) Absolute Neuts (auto) Absolute Lymphs (auto) Total Counted Neutrophils % (Manual) Band Neutrophils % Lymphocytes % (Manual) Metamyelocytes % Platelet Estimate PT INR APTT Sodium Potassium Chloride Carbon Dioxide Anion Gap BUN Creatinine Estim Creat Clear Calc Est GFR (MDRD) Non-Af Cancelled BUN/Creatinine Ratio 19.5 Cancelled Glucose 252 H Cancelled Lactic Acid 2.7 H* Calcium 9.6 Total Bilirubin AST ALT Alkaline Phosphatase Troponin T High Sens Troponin T Hi Sens 2 Hr NT pro BNP II Total Protein Albumin Globulin Albumin/Globulin Ratio Urine Color Urine Clarity Urine pH Ur Specific [place] Urine Protein Urine Glucose (UA) Urine Ketones Urine Occult Blood Urine Nitrite Urine Bilirubin Urine Urobilinogen Ur Leukocyte Esterase Urine RBC Urine WBC Ur Squamous Epith Cells Ur Renal Epithelial Cell Urine Bacteria Urine Mucus 01/14/25 01/14/25 01/14/25 18:37 18:37 18:37 WBC RBC Hgb Hct MCV MCH MCHC RDW Std Deviation RDW Coeff of Layla Plt Count MPV Neut % (Auto) Absolute Neuts (auto) Absolute Lymphs (auto) Total Counted Neutrophils % (Manual) Band Neutrophils % Lymphocytes % (Manual) Metamyelocytes % Platelet Estimate PT INR APTT Sodium Potassium Chloride Carbon Dioxide Anion Gap BUN Creatinine Estim Creat Clear Calc Est GFR (MDRD) Non-Af BUN/Creatinine Ratio Glucose Lactic Acid Calcium Cancelled Total Bilirubin 0.54 Cancelled AST 19 Cancelled ALT 16 Alkaline Phosphatase Troponin T High Sens Troponin T Hi Sens 2 Hr NT pro BNP II Total Protein Albumin Globulin Albumin/Globulin Ratio Urine Color Urine Clarity Urine pH Ur Specific [place] Urine Protein Urine Glucose (UA) Urine Ketones Urine Occult Blood Urine Nitrite Urine Bilirubin Urine Urobilinogen Ur Leukocyte Esterase Urine RBC Urine WBC Ur Squamous Epith Cells Ur Renal Epithelial Cell Urine Bacteria Urine Mucus 01/14/25 01/14/25 01/14/25 18:37 18:37 18:37 WBC RBC Hgb Hct MCV MCH MCHC RDW Std Deviation RDW Coeff of Layla Plt Count MPV Neut % (Auto) Absolute Neuts (auto) Absolute Lymphs (auto) Total Counted Neutrophils % (Manual) Band Neutrophils % Lymphocytes % (Manual) Metamyelocytes % Platelet Estimate PT INR APTT Sodium Potassium Chloride Carbon Dioxide Anion Gap BUN Creatinine Estim Creat Clear Calc Est GFR (MDRD) Non-Af BUN/Creatinine Ratio Glucose Lactic Acid Calcium Total Bilirubin AST ALT Cancelled Alkaline Phosphatase 100 Cancelled Troponin T High Sens 18 H D Troponin T Hi Sens 2 Hr NT pro BNP II 265 Total Protein 7.6 Cancelled Albumin 4.1 Globulin Albumin/Globulin Ratio Urine Color Urine Clarity Urine pH Ur Specific [place] Urine Protein Urine Glucose (UA) Urine Ketones Urine Occult Blood Urine Nitrite Urine Bilirubin Urine Urobilinogen Ur Leukocyte Esterase Urine RBC Urine WBC Ur Squamous Epith Cells Ur Renal Epithelial Cell Urine Bacteria Urine Mucus 01/14/25 01/14/25 01/14/25 18:37 18:37 18:37 WBC RBC Hgb Hct MCV MCH MCHC RDW Std Deviation RDW Coeff of Layla Plt Count MPV Neut % (Auto) Absolute Neuts (auto) Absolute Lymphs (auto) Total Counted Neutrophils % (Manual) Band Neutrophils % Lymphocytes % (Manual) Metamyelocytes % Platelet Estimate PT INR APTT Sodium Potassium Chloride Carbon Dioxide Anion Gap BUN Creatinine Estim Creat Clear Calc Est GFR (MDRD) Non-Af BUN/Creatinine Ratio Glucose Lactic Acid Calcium Total Bilirubin AST ALT Alkaline Phosphatase Troponin T High Sens Troponin T Hi Sens 2 Hr NT pro BNP II Total Protein Albumin Cancelled Globulin 3.5 Cancelled Albumin/Globulin Ratio 1.1 Cancelled Urine Color Urine Clarity Urine pH Ur Specific [place] Urine Protein Urine Glucose (UA) Urine Ketones Urine Occult Blood Urine Nitrite Urine Bilirubin Urine Urobilinogen Ur Leukocyte Esterase Urine RBC Urine WBC Ur Squamous Epith Cells Ur Renal Epithelial Cell Urine Bacteria Urine Mucus 01/14/25 01/14/25 01/14/25 19:00 19:09 20:51 WBC RBC Hgb Hct MCV MCH MCHC RDW Std Deviation RDW Coeff of Layla Plt Count MPV Neut % (Auto) Absolute Neuts (auto) Absolute Lymphs (auto) Total Counted Neutrophils % (Manual) Band Neutrophils % Lymphocytes % (Manual) Metamyelocytes % Platelet Estimate PT 14.0 INR 1.1 APTT 25.0 Sodium Potassium Chloride Carbon Dioxide Anion Gap BUN Creatinine Estim Creat Clear Calc Est GFR (MDRD) Non-Af BUN/Creatinine Ratio Glucose Lactic Acid Calcium Total Bilirubin AST ALT Alkaline Phosphatase Troponin T High Sens Troponin T Hi Sens 2 Hr 192 H* NT pro BNP II Total Protein Albumin Globulin Albumin/Globulin Ratio Urine Color Yellow Urine Clarity Clear Urine pH 5.0 Ur Specific [place] 1.015 Urine Protein 30 H Urine Glucose (UA) 1000 H Urine Ketones 5 H Urine Occult Blood 50 H Urine Nitrite Negative Urine Bilirubin Negative Urine Urobilinogen Normal Ur Leukocyte Esterase Negative Urine RBC 5-10 SEEN Urine WBC 10-25 SEEN Ur Squamous Epith Cells 0-5 SEEN Ur Renal Epithelial Cell 0-5 SEEN Urine Bacteria RARE Urine Mucus 0 SEEN ABG Data ABG results: ABG 01/14/25 20:20 Specimen Type ART Sample Site R Radial pH 7.44 Bicarbonate Actual 19.7 L Total CO2 21 Base Excess -5 L O2 Saturation 95 O2 % 2.0 ABG pCO2 29.3 L ABG pO2 69 L Christopher Test Positive O2 Delivery Device Cannula Vent Mode Not entered Radiography Chest X-Ray - ED: 1 View, Read by ED Physician, Heart, Lungs, Mediastinum, Bony Structures, No Acute Disease and Chronic Changes Diagnostic Testing: Clinical Impression(s) from Imaging Studies Chest X-Ray 01/14/25 19:00 IMPRESSION: Mildly increased interstitial markings may be the result of pulmonary edema or atypical/viral infection. Reading Location: [facility] Chest x-ray, portable, single view interpreted by myself shows no acute abnormality. Normal cardiac silhouette. Normal lung otto. Chronic changes. Rhythm Strip Rhythm Strip: Sinus Tach Rate: 134 Ectopy: None EKG Initial EKG: Attestation: I personally reviewed and interpreted this EKG as follows: Interpretation: No Acute Injury Pattern and Sinus Tachycardia Comments: Sinus tachycardia rate of 134 no acute sign of OR or ischemia. Critical Care Time Critical Care Time: Yes Critical care time (excluding procedures): 30-74 minutes, Including time spent:, Discussing w/Patient &/or Family/Falsework Builder, Discussing w/Consultants, Arranging Admission or Transfer, Performing Direct Patient Care at Bedside and - (40 minutes) Discharge Plan Dx/Rx/DC Orders Clinical Impression: UTI (urinary tract infection), Acute hypotension, Hypoxia, Acidosis, lactic, History of diabetes mellitus, History of blood clots, Chronic anticoagulation Disposition Disposition: Acute Care [facility]
[2025-01-14 18:55] LABS: Hematocrit 43.1 % (37-47); Hemoglobin 14.7 g/dL (12.0-15.0); Mean Corp Hgb Conc 34.1 g/dL (32-36); Mean Corpuscular Volume 83.2 fL (81-99); Mean Platelet Vol. 9.9 fl (6.2-12.0); POSITIVE DIFFERENTIAL YES; POSITIVE MORPHOLOGY YES; Platelet Count 156 K/mm3 (150-450); RBC Distribution Width CV 15.1 % (11.6-14.6); RBC Distribution Width SD 45.7 fl (35.1-43.9); Red Blood Count 5.18 M/mm3 (4.2-5.4); White Blood Count 3.1 K/mm3 (4.4-11.0)
--- NOTE | 2025-01-14 19:00 | RAD_ITS ---
PROCEDURE: CHEST 1 VIEW (PORTABLE) 01/14/2025 REASON FOR EXAM: CHEST PAIN TECHNIQUE: Frontal view of the chest. COMPARISON: Chest radiograph 10/21/2024, CT chest 10/18/2024 FINDINGS: Hardware: None Heart: Cardiac and mediastinal contours are enlarged, unchanged. Lungs: Mild diffuse increase in interstitial markings. No focal consolidation. Unchanged eventration of the right hemidiaphragm. Bones: Leftward curvature of the thoracic spine. RAD/Chest 1 View (Portable) IMPRESSION: Mildly increased interstitial markings may be the result of pulmonary edema or atypical/viral infection. Reading Location: [id number]
[2025-01-14 19:10] LABS: Mucous, Urine 0 SEEN /hpf (<or=2+)
[2025-01-14 19:14] LABS: AST(SGOT) 19 U/L (<=31); Alanine Aminotransfer ALT/SGPT 16 U/L (<=34); Albumin, Serum 4.1 g/dL (3.4-4.8); Alkaline Phosphatase 100 U/L (35-104); Anion Gap 18 (5-15); BUN 14 mg/dL (4-19); BUN/Creat Ratio 19.5 RATIO (10-20); Calcium,Total 9.6 mg/dL (7.6-11.0); Carbon Dioxide 16.5 mmol/L (21.0-32.0); Chloride 101 mmol/L (98-108); Estimated Creatinine Clearance 87.56 ml/min (50-250); Globulin 3.5 g/dL (2.2-4.2); Glucose 252 mg/dL (70-99); Potassium 3.9 mmol/L (3.3-5.1); Pro- Brain NATRIURETIC PEPTIDE 265 pg/mL (<=900); Troponin T High Sensitivity 18 ng/L (<=14)
[2025-01-14 19:30] LABS: Color, Urine Yellow (Yellow); Glucose, Dipstick 1000 mg/dl (Normal); Ketone-Dipstick 5 mg/dl (Negative); Leukocyte Esterase-Dipstick Negative /ul (Negative); Nitrite-Dipstick Negative (Negative); Occult Blood-Urine 50 /ul (Negative); Protein-Dipstick 30 mg/dl (Negative); Specific Gravity, Urine 1.015 (1.002-1.030); Urine Bilirubin Dipstick Negative (Negative)
[2025-01-14 19:36] LABS: Prothrombin Time (Protime)PT. 14.0 SECONDS (11.7-14.9)
[2025-01-14 19:37] LABS: Partial Thromboplast Time 25.0 Seconds (24.1-36.2)
[2025-01-14 19:39] LABS: Neutrophil-Band 16 % (0-5); Neutrophil-Segmented 63 % (47-70); Total Cells Counted 100 (MANUAL DIFF)
[2025-01-14 19:59] LABS: Differential Indicated MANUAL DIFF
[2025-01-14 20:24] LABS: Allen Test Positive; Base Excess -5 mmol/L (-2 to +2); FI02 2.0; PO2 69 mmHG (75-100); SITE R Radial; SO2 95 % (95-99)
[2025-01-14 20:54] LABS: Red Blood Cells-Urine 5-10 SEEN /hpf (0-5); Squamous Epithelial Cells - UA 0-5 SEEN /hpf (5-10)
--- NOTE | 2025-01-14 20:57 | CT_ITS ---
PROCEDURE: CTA CHEST W/WO CONTRAST 01/14/2025 REASON FOR EXAM: HYPOXIA TECHNIQUE: CTA CHEST W/WO CONTRAST Multiplanar Sagittal and Coronal images were obtained. CONTRAST: 100 mL of Isovue 370 One or more dose reduction techniques were used (e.g., Automated exposure control, adjustment of the mA and/or kV according to patient size, use of iterative reconstruction technique). RADIATION DOSE SUMMARY: DLP: 866 mGycm COMPARISON: 10/18/2024 FINDINGS: PULMONARY ARTERIES: No evidence of pulmonary embolism. LUNGS AND PLEURA: No focal consolidations. No definite pulmonary edema. No pleural effusion. No pneumothorax. 7 mm nodule within the left lower lobe best seen on series 3, image 160, minimally increased where previously it measured 6 mm on 10/18/2024. MEDIASTINUM: No lymphadenopathy or mass. Moderate cardiomegaly. Extensive coronary atherosclerosis. The aorta shows no acute findings. Minimal atherosclerosis of the thoracic aorta. The pulmonary trunk, and branches of the vessels in the mediastinum are within normal limits. SUPRACLAVICULAR AND AXILLARY: No abnormalities seen in these regions. No mass or significant lymphadenopathy. UPPER ABDOMEN: Please see concurrent CTAP. BONES AND SOFT TISSUES: The ribs are unremarkable. The visualized spine shows no significant acute findings. Anterior wedge-shaped compression deformity of the lower thoracic spine, grossly unchanged. Subcutaneous soft tissues are unremarkable. CT/CTA Chest W/WO Contrast IMPRESSION: No acute pulmonary emboli. No focal consolidations. 7 mm nodule within the left lower lobe, minimally increased compared to 025. Reading Location: [id number]
--- NOTE | 2025-01-14 21:02 | CT_ITS ---
PROCEDURE: ABDOMEN/PELVIS W IV CONT ONLY 01/14/2025 REASON FOR EXAM: HYPOTENSION. UTI. ABD PAIN TECHNIQUE: ABDOMEN/PELVIS W IV CONT ONLY Coronal and Sagittal reconstruction series were provided. CONTRAST: 100 mL of Isovue 370 One or more dose reduction techniques were used (e.g., Automated exposure control, adjustment of the mA and/or kV according to patient size, use of iterative reconstruction technique. RADIATION DOSE SUMMARY: DLP: 1956 MGycm COMPARISON: MR from 01/28/2024 FINDINGS: Limited sections of the lung bases demonstrate no focal pulmonary mass or consolidations. Left base subsegmental atelectasis. The liver, spleen, pancreas demonstrate no acute findings. 2.5 x 1.8 cm right adrenal lesion. Multicystic lesion within the left adrenal gland measuring 2.7 x 1.7 cm. The gallbladder is surgically removed. The stomach is unremarkable. The small bowel loops are not dilated. The appendix is not clearly identified, although there are no secondary signs of appendicitis. No colonic obstruction. Colonic diverticulosis without acute diverticulitis. There is no free air or significant free fluid. 4.9 x 4.7 cm cyst within the right kidney and 1.6 by 1.9 cm cyst within the right kidney. Striated nephrogram within the right kidney best seen within the lower pole may reflect pyelonephritis or renal infarction under appropriate clinical context. The urinary bladder is partially distended. The pelvic structures are intact. There is no solid pelvic mass. No significant lymphadenopathy. The aorta and IVC demonstrate no acute findings. Extensive atherosclerosis of the abdominal vasculature. Visualized osseous structures demonstrate no acute abnormality. Extensive lumbar multilevel degenerative changes with severe levoscoliosis. CT/Abdomen/Pelvis W IV Cont ONLY IMPRESSION: Striated nephrogram within the right kidney best seen within the lower pole may reflect pyelonephritis or renal infarction under appropriate clinical context. 2.5 x 1.8 cm right adrenal lesion. Multicystic lesion within the left adrenal gland measuring 2.7 x 1.7 cm. Reading Location: [id number]
[2025-01-14 21:23] LABS: Troponin T High Sens 2 HR 192 ng/L (<=14)
--- NOTE | 2025-01-14 22:11 | HP.PCM.HOS_ITS ---
[facility] - General General Date of Admission: 01/14/25 Date of Service: 01/14/25 Chief Complaint: Fever, Chills and Dysuria. HPI Narrative CAITLIN OSBORNE, is a 59 F with a past medical history of essential hypertension; on amlodipine, losartan and furosemide, hyperlipidemia; on atorvastatin, hypothyroidism after total thyroidectomy; on levothyroxine, obesity (class II); BMI 36.9 this admission, chronic tobacco abuse; ~1 PPD x ~30 years, DM-2; of unknown control on metformin, dapagliflozin and tirzepatide, history of DVT/PE; on apixaban twice daily, RA; on hydroxychloroquine twice daily and leflunomide, history of renal cyst, history of laparoscopic cholecystectomy, history of appendectomy, neuropathy; on gabapentin 3 times daily, vertigo; on as needed meclizine 3 times daily, GERD; on famotidine and OA; with kyphosis and chronic back pain who presents to [facility] ER complaining of fever, chills and dysuria. Ms. Osborne reports her symptoms began approximately 1 day prior to admission when she was seen at a local urgent care for complaints of dysuria and urinary frequency and was then diagnosed with UTI with subsequent treatment with Macrobid. Unfortunately, when she got home she spiked a temperature with shaking chills with marked pallor followed by nausea and 1 episode of bilious emesis so she decided to come in for further evaluation and treatment. Her blood glucose was 153 mg/dL. She admits to shortness of breath but she denies associated changes in vision, runny nose, sore throat, ear pain, chest pain, cough, abdominal pain, chest pain, palpitations, heart racing, lower extremity edema, arthralgias, myalgias, rash or headache. In the ER she was noted to have a UA positive for evidence of acute cystitis; with microscopic hematuria with a corresponding Leukopenia of 3.1K and Lactic Acidosis of 2.7 mmol/L both present on admission with Hypotension evidenced by blood pressure dropping as low as 82/53 mmHg and Tachycardia ~115 bpm noted shortly after admission concerning for Sepsis complicated by elevated initial troponin T of 18 ng/L followed by second troponin T of 192 ng/L suspected to be due to Acute Cardiac Strain in addition to clinical evidence of Acute Respiratory Insufficiency with ABG that revealed pH 7.44/pCO2 29.3 mmHg/PaO2 of 69 mmHg/HCO3 19.7 mmol/L at 95% saturation on 2L NC with a corresponding CXR that revealed mildly increased interstitial markings which may be the result of pulmonary edema or atypical/viral infection with normal viral respiratory panel pending at this time. She was admitted to the ICU for treatment under the sepsis protocol for ongoing care for status is expected to extend beyond 2 midnights. [facility] Medical History Morbid obesity with BMI of 40.0-44.9, adult Renal cyst Adrenal nodule Loss of hearing Wears glasses Wears dentures History of steroid therapy Thyroid disease DVT (deep venous thrombosis) High cholesterol Back pain Vertigo Heartburn Smoker Shortness of breath on exertion Leg cramps Hypertension Cardiology follow-up encounter History of Holter monitoring History of echocardiogram History of stress test Lightheadedness Near syncope Mixed hyperlipidemia History of left heart catheterization (LHC) (~03/24/22) Abnormal cardiac CT angiography Tachycardia Essential hypertension Kyphosis Rheumatoid arthritis Home Medications Medication Instructions Recorded Last Taken Type meclizine 25 mg tablet 25 mg PO TID PRN dizziness 0 12/16/21 Unknown History amlodipine 10 mg tablet 10 mg PO DAILY bp 01/01/22 1 History hydroxychloroquine 200 mg tablet 200 mg PO BID ra 01/16 Unknown History losartan 100 mg tablet 100 mg PO DAILY 01/01/22 History metformin 1,000 mg tablet 1,000 mg PO BID dm 11/16/22 Unknown History atorvastatin 20 mg tablet See Rx Instructions .Route 1 07/05/22 Unknown Rx .COMPLEX hld #90 tabs leflunomide 20 mg tablet 20 mg PO DAILY arthritis 08/21 Unknown History dapagliflozin propanediol 10 mg 10 mg PO DAILY 5 Unknown History tablet (Farxiga) apixaban 5 mg tablet (Eliquis) 5 mg PO BID 01/14/25 Un known History famotidine 20 mg tablet 20 mg PO QDAY 01/14/25 Unkno wn History furosemide 20 mg tablet 20 mg PO DAILY 01/14/25 Unkn own History gabapentin 100 mg capsule 100 mg PO TID 01/14/25 Unkno wn History levothyroxine 137 mcg tablet 137 mcg PO DAILY hypothyr oidism 01/14/25 Unknown History tirzepatide 2.5 mg/0.5 mL 2.5 mg subcut QWEEK diabetes 01/14/25 Unknown History subcutaneous pen injector (Mounjaro) Allergy/AdvReac Type Severity Reaction Status Date / Time Sulfa (Sulfonamide Allergy Unknown Hives Verified 01/14/25 09:46 Antibiotics) Family History Sister Breast cancer Hypertension Diabetes Sister Myocardial infarction, Onset Age: 30 Surgical History History of total thyroidectomy History of cardiac catheterization (~02/2022) S/P thyroid biopsy (~02/2022) History of laparoscopic cholecystectomy History of appendectomy Social History Smoking Status: Current every day smoker tobacco type: e-cigarettes Tobacco: How many years used: 30 second hand exposure: Yes alcohol intake: current alcohol intake frequency: holidays/special occasions only substance use type: does not use caffeine: Yes Type: coffee Number of servings: 3 seatbelt use: always ROS ROS Narrative Review of Systems: Constitutional: Patient admits to fever and chills as per HPI. Eyes: Patient denies change in vision or discharge from eyes. ENT: Patient denies runny nose, sore throat or ear pain. Resp: Patient admits to shortness of breath but she denies cough. CV: Patient denies chest pain, palpitations, heart racing or lower extremity edema. GI: Patient admits to nausea and vomiting with bilious emesis as per HPI. She denies abdominal pain, diarrhea or constipation. : Patient admits to dysuria and urinary frequency as per HPI. MSK: Patient denies arthralgias or myalgias. Skin: Patient denies rash, abscess, wounds or jaundice. Psych: Patient denies symptoms of uncontrolled depression or anxiety. Neuro: Patient denies headache, paresthesias or focal neurologic deficits. Allergy: Patient denies lip swelling, tongue swelling or urticaria. Hematology: Patient admits to easy bleeding and bruisability on apixaban. Endocrinology: Patient admits to polyuria but she denies polydipsia, polyphagia or heat/cold intolerance. 14 point ROS otherwise negative except for positives noted above in HPI. Vital Signs Vital Signs Vital Signs: 01/14/25 18:23 01/14/25 18:37 01/14/25 19:00 Temperature 97.8 F 98.0 F Temperature Source Temporal Oral Pulse Rate 145 H 115 H Respiratory Rate 22 H 29 H Respiratory Effort Respiratory Pattern Blood Pressure 126/75 H 91/45 L Blood Pressure Mean 92 60 Pulse Ox 90 93 95 Oxygen Delivery Method Nasal Cannula Nasal Cannula Nasal Cannula Oxygen Flow Rate (L/min) 2 2 2 01/14/25 19:00 01/14/25 19:22 01/14/25 19:51 Temperature 99.9 F H Temperature Source Oral Pulse Rate 115 H 112 H Respiratory Rate 34 H 37 H Respiratory Effort Normal Non-Labored Respiratory Pattern Normal Blood Pressure 91/46 L 102/52 L Blood Pressure Mean 61 68 Pulse Ox 95 100 Oxygen Delivery Method Nasal Cannula Nasal Cannula Oxygen Flow Rate (L/min) 2 2 01/14/25 20:15 01/14/25 20:44 01/14/25 20:45 Temperature Temperature Source Pulse Rate 116 H 115 H Respiratory Rate 41 H 39 H Respiratory Effort Respiratory Pattern Blood Pressure 82/53 L Blood Pressure Mean 63 Pulse Ox 94 87 86 Oxygen Delivery Method Nasal Cannula Oxygen Flow Rate (L/min) 2 01/14/25 20:47 01/14/25 20:51 01/14/25 20:51 Temperature 98.6 F Temperature Source Oral Pulse Rate 114 H 109 H 114 H Respiratory Rate 28 H 27 H 33 H Respiratory Effort Respiratory Pattern Blood Pressure 87/53 L 87/53 L Blood Pressure Mean 64 64 Pulse Ox 89 85 95 Oxygen Delivery Method Nasal Cannula Nasal Cannula Oxygen Flow Rate (L/min) 2 3 01/14/25 20:59 01/14/25 20:59 01/14/25 21:00 Temperature Temperature Source Pulse Rate 110 H 113 H Respiratory Rate 24 H 31 H Respiratory Effort Respiratory Pattern Blood Pressure Blood Pressure Mean Pulse Ox 90 94 92 Oxygen Delivery Method Nasal Cannula Nasal Cannula Nasal Cannula Oxygen Flow Rate (L/min) 3 4 4 01/14/25 21:45 01/14/25 21:55 01/14/25 22:00 Temperature 98.6 F 98.3 F 98.9 F Temperature Source Oral Oral Pulse Rate 104 H 101 H Respiratory Rate 23 H 25 H Respiratory Effort Respiratory Pattern Blood Pressure 86/55 L 104/61 Blood Pressure Mean 65 75 Pulse Ox 97 97 Oxygen Delivery Method Nasal Cannula Oxygen Flow Rate (L/min) 4 Weight Weight: 201 lb 11.567 oz Body Mass Index (BMI) 37.1 Physical Exam Const alert and oriented x3 Constitutional Narrative: Mild distress noted and obese patient. General Appearance: cooperative HEENT normocephalic, head/scalp atraumatic, hearing grossly normal bilaterally and moist oral mucous membranes Eyes PERRL, EOMs intact bilaterally and conjunctivae normal Neck no lymphadenopathy, supple and no JVD Resp Resp Narrative: Diminished breath sounds throughout. Cardio regular rate and regular rhythm Cardio Narrative: Tachycardia to the 115 bpm noted. GI normal to inspection, nondistended, normoactive bowel sounds, soft to palpation, non-tender and non-distended GI Narrative: Obese. Extremity normal to inspection, full ROM and no clubbing, cyanosis or edema Skin Skin Narrative: Patient has evidence of rash, abscess, wounds or jaundice. Neuro oriented x3, CN's II-XII intact bilaterally, moves all extremities and no focal motor deficits Sensorium / Orientation: awake, alert, oriented to person, oriented to place and oriented to time Speech: speech normal Psych affect normal Results Medical Records Data Attestation: I reviewed the patient's medical records Lab / Micro Data Attestation: I reviewed the patient's lab results. 01/14/25 18:37 01/14/25 18:37 Labs: Laboratory Results - last 24 hr 01/14/25 18:37: WBC 3.1 L, RBC 5.18, Hgb 14.7, Hct 43.1, MCV 83.2, MCH 28.4, MCHC 34.1, RDW Std Deviation 45.7 H, RDW Coeff of Layla 15.1 H, Plt Count 156, MPV 9.9, Neut % (Auto) Not Reportable, Absolute Neuts (auto) 2.4, Absolute Lymphs (auto) 0.47 L, Total Counted 100, Neutrophils % (Manual) 63, Band Neutrophils % 16 H, Lymphocytes % (Manual) 15 L, Metamyelocytes % 6 H, Platelet Estimate ADEQUATE, Sodium 136 01/14/25 18:37: Sodium Cancelled, Potassium 3.9 01/14/25 18:37: Potassium Cancelled, Chloride 101 01/14/25 18:37: Chloride Cancelled, Carbon Dioxide 16.5 L 01/14/25 18:37: Carbon Dioxide Cancelled, Anion Gap 18 H 01/14/25 18:37: Anion Gap Cancelled, BUN 14 01/14/25 18:37: BUN Cancelled, Creatinine 0.71 01/14/25 18:37: Creatinine Cancelled, Estim Creat Clear Calc 87.56 01/14/25 18:37: Estim Creat Clear Calc Cancelled, Est GFR (MDRD) Non-Af 97 01/14/25 18:37: Est GFR (MDRD) Non-Af Cancelled, BUN/Creatinine Ratio 19.5 01/14/25 18:37: BUN/Creatinine Ratio Cancelled, Glucose 252 H 01/14/25 18:37: Glucose Cancelled, Lactic Acid 2.7 H*, Calcium 9.6 01/14/25 18:37: Calcium Cancelled, Total Bilirubin 0.54 01/14/25 18:37: Total Bilirubin Cancelled, AST 19 01/14/25 18:37: AST Cancelled, ALT 16 01/14/25 18:37: ALT Cancelled, Alkaline Phosphatase 100 01/14/25 18:37: Alkaline Phosphatase Cancelled, Troponin T High Sens 18 H D, NT pro BNP II 265, Total Protein 7.6 01/14/25 18:37: Total Protein Cancelled, Albumin 4.1 01/14/25 18:37: Albumin Cancelled, Globulin 3.5 01/14/25 18:37: Globulin Cancelled, Albumin/Globulin Ratio 1.1 01/14/25 18:37: Albumin/Globulin Ratio Cancelled 01/14/25 19:00: Urine Color Yellow, Urine Clarity Clear, Urine pH 5.0, Ur Specific [place] 1.015, Urine Protein 30 H, Urine Glucose (UA) 1000 H, Urine Ketones 5 H, Urine Occult Blood 50 H, Urine Nitrite Negative, Urine Bilirubin Negative, Urine Urobilinogen Normal, Ur Leukocyte Esterase Negative, Urine RBC 5-10 SEEN, Urine WBC 10-25 SEEN, Ur Squamous Epith Cells 0-5 SEEN, Ur Renal Epithelial Cell 0-5 SEEN, Urine Bacteria RARE, Urine Mucus 0 SEEN 01/14/25 19:09: PT 14.0, INR 1.1, APTT 25.0 01/14/25 20:51: Troponin T Hi Sens 2 Hr 192 H* ABG Data ABG results: ABG 01/14/25 20:20 Specimen Type ART Sample Site R Radial pH 7.44 Bicarbonate Actual 19.7 L Total CO2 21 Base Excess -5 L O2 Saturation 95 O2 % 2.0 ABG pCO2 29.3 L ABG pO2 69 L Christopher Test Positive O2 Delivery Device Cannula Vent Mode Not entered Rhythm Strip Rhythm Strip: Sinus Tach Rate: 134 Ectopy: None Imaging Radiology Impression Chest X-Ray 01/14/25 19:00 IMPRESSION: Mildly increased interstitial markings may be the result of pulmonary edema or atypical/viral infection. Reading Location: [id number] Imaging Services [address] [place] [id number] CTA Chest W/WO Contrast MR#: [id number] Acct: [id number] Name: ABBI OSBORNERomulo Hutton Rep #: [id number] : 1965 F 59 From: Leslye Oseguera MD PCP: Dr. Nehemias Arizmendi MD Status: [facility] Study: CTA Chest W/WO Contrast Date of Exam: 01/14/25 Exam# [id number] Ordering Dr: Alex Smith MD PROCEDURE: CTA CHEST W/WO CONTRAST 01/14/2025 REASON FOR EXAM: HYPOXIA TECHNIQUE: CTA CHEST W/WO CONTRAST Multiplanar Sagittal and Coronal images were obtained. CONTRAST: 100 mL of Isovue 370 One or more dose reduction techniques were used (e.g., Automated exposure control, adjustment of the mA and/or kV according to patient size, use of iterative reconstruction technique). RADIATION DOSE SUMMARY: DLP: 866 mGycm COMPARISON: 10/18/2024 FINDINGS: PULMONARY ARTERIES: No evidence of pulmonary embolism. LUNGS AND PLEURA: No focal consolidations. No definite pulmonary edema. No pleural effusion. No pneumothorax. 7 mm nodule within the left lower lobe best seen on series 3, image 160, minimally increased where previously it measured 6 mm on 10/18/2024. MEDIASTINUM: No lymphadenopathy or mass. Moderate cardiomegaly. Extensive coronary atherosclerosis. The aorta shows no acute findings. Minimal atherosclerosis of the thoracic aorta. The pulmonary trunk, and branches of the vessels in the mediastinum are within normal limits. SUPRACLAVICULAR AND AXILLARY: No abnormalities seen in these regions. No mass or significant lymphadenopathy. UPPER ABDOMEN: Please see concurrent CTAP. BONES AND SOFT TISSUES: The ribs are unremarkable. The visualized spine shows no significant acute findings. Anterior wedge-shaped compression deformity of the lower thoracic spine, grossly unchanged. Subcutaneous soft tissues are unremarkable. CT/CTA Chest W/WO Contrast IMPRESSION: No acute pulmonary emboli. No focal consolidations. 7 mm nodule within the left lower lobe, minimally increased compared to 10/18/2024. Reading Location: [facility] Imaging Services [address] [place] [id number] Abdomen/Pelvis W IV Cont ONLY MR#: [id number] Acct: [id number] Name: CAITLIN OSBORNE Rep #: [id number] : 1965 F 59 From: Leslye Oseguera MD PCP: Dr. Nehemias Arizmendi MD Status: [facility] ER Study: Abdomen/Pelvis W IV Cont ONLY Date of Exam: 01/14/25 Exam# [id number] Ordering Dr: Alex Smith MD ADDENDUM by Dr. Leslye Oseguera MD on 01/14/25 at 2304 Extensive atherosclerosis of the abdominal aorta with findings suggestive of atheromatous ulceration. Reading Location: [facility] 01/14/252304 Date cc: Dr. Alex Smith MD; Dr. Nehemias Arizmendi MD ~* Signed PROCEDURE: ABDOMEN/PELVIS W IV CONT ONLY 01/14/2025 REASON FOR EXAM: HYPOTENSION. UTI. ABD PAIN TECHNIQUE: ABDOMEN/PELVIS W IV CONT ONLY Coronal and Sagittal reconstruction series were provided. CONTRAST: 100 mL of Isovue 370 One or more dose reduction techniques were used (e.g., Automated exposure control, adjustment of the mA and/or kV according to patient size, use of iterative reconstruction technique. RADIATION DOSE SUMMARY: DLP: 1954 MGycm COMPARISON: MR from 01/28/2024 FINDINGS: Limited sections of the lung bases demonstrate no focal pulmonary mass or consolidations. Left base subsegmental atelectasis. The liver, spleen, pancreas demonstrate no acute findings. 2.5 x 1.8 cm right adrenal lesion. Multicystic lesion within the left adrenal gland measuring 2.7 x 1.7 cm. The gallbladder is surgically removed. The stomach is unremarkable. The small bowel loops are not dilated. The appendix is not clearly identified, although there are no secondary signs of appendicitis. No colonic obstruction. Colonic diverticulosis without acute diverticulitis. There is no free air or significant free fluid. 4.9 x 4.7 cm cyst within the right kidney and 1.6 by 1.9 cm cyst within the right kidney. Striated nephrogram within the right kidney best seen within the lower pole may reflect pyelonephritis or renal infarction under appropriate clinical context. The urinary bladder is partially distended. The pelvic structures are intact. There is no solid pelvic mass. No significant lymphadenopathy. The aorta and IVC demonstrate no acute findings. Extensive atherosclerosis of the abdominal vasculature. Visualized osseous structures demonstrate no acute abnormality. Extensive lumbar multilevel degenerative changes with severe levoscoliosis. CT/Abdomen/Pelvis W IV Cont ONLY IMPRESSION: Striated nephrogram within the right kidney best seen within the lower pole may reflect pyelonephritis or renal infarction under appropriate clinical context. 2.5 x 1.8 cm right adrenal lesion. Multicystic lesion within the left adrenal gland measuring 2.7 x 1.7 cm. Reading Location: [id number] CC: Dr. Alex Smith MD; Dr. Nehemias Arizmendi MD ~ Perinatal Specialist: Signed Assessment & Plan Assessment/Plan (1) Sepsis: QUALIFIERS: Sepsis acute organ dysfunction status: without acute organ dysfunction Sepsis type: sepsis due to unspecified organism Qualified Code(s): A41.9 - Sepsis, unspecified organism (2) Acute cystitis with hematuria: (3) Pyelonephritis: (4) Leukopenia: QUALIFIERS: Leukopenia type: unspecified Qualified Code(s): D 72.819 - Decreased white blood cell count, unspecified (5) Lactic acidosis: (6) Hypotension: QUALIFIERS: Hypotension type: unspecified hypotension type Q ualified Code(s): I95.9 - Hypotension, unspecified (7) Tachycardia: (8) Elevated troponin: (9) Acute respiratory insufficiency: (10) Obesity (BMI 30-39.9): (11) DVT (deep venous thrombosis): QUALIFIERS: Affected thrombotic vein of extremity: unspecified vein of extremity Chronicity: unspecified DVT location: lower extremity L aterality: unspecified laterality Qualified Code(s): I82.409 - Acute embolism and thrombosis of unspecified deep veins of unspecified lower extremity (12) Chronic anticoagulation: PLAN: Plan 1. UA positive for evidence of Acute Cystitis; with microscopic hematuria with a corresponding Leukopenia of 3.1K and Lactic Acidosis of 2.7 mmol/L both present on admission with Hypotension evidenced by blood pressure dropping as low as 82/53 mmHg and Tachycardia ~115 bpm noted shortly after admission concerning for Sepsis with CT of the abdomen and pelvis revealing striated nephrogram within the Right kidney best seen within the lower pole may reflect pyelonephritis or renal infarction under appropriate clinical context with ~2.5 cm x ~1.8 cm Right adrenal lesion and multicystic lesion within the Left adrenal gland measuring ~2.7 cm x ~1.7 cm - Admit to ICU with treatment under sepsis protocol. Continue empiric IV ceftriaxone begun in ER and await culture and sensitivity data. Give pantoprazole 40 mg IV daily. Give ondansetron IV as needed for nausea and vomiting. Give promethazine IM as needed for breakthrough nausea. Give acetaminophen as needed for [id number] (level 1-5/10) pain or fever. Give morphine IV as needed for severe (level 6-10/10) pain. Finally, we will consult urology to see this patient on rounds in the a.m. for further recommendations with help appreciated in advance. 2. CXR that revealed mildly increased interstitial markings which may be the result of pulmonary edema or atypical/viral infection along with clinical evidence of Acute Respiratory Insufficiency with ABG that revealed pH 7.44/pCO2 29.3 mmHg/PaO2 of 69 mmHg/HCO3 19.7 mmol/L at 95% saturation on 2L NC complicating #1 - Check viral respiratory panel treat supportively. NT pro-BNP II pending. Wean supplemental oxygen as tolerated. 3. Elevated initial troponin T of 18 ng/L followed by second troponin T of 192 ng/L suspected to be due to Acute Cardiac Strain due to #1 & #2 - Give ECASA and serialize troponin. Patient underwent recent echocardiogram on October 19, 2024 that revealed normal LVEF and stage I diastolic dysfunction. 4. Obesity (class II); BMI 36.9 this admission adding to the burden of disease outlined from #1 - #3 - Weight loss will be recommended. Check TSH. This complicates her case and may hamper recovery. 5. History of DVT/PE; on apixaban twice daily adding to the medical complexity of #1 - #4 - Maintain apixaban as before. 6. RA; on hydroxychloroquine twice daily and leflunomide - We we will hold immunosuppressive agents until acute infection is resolved. 7. Essential hypertension; on amlodipine, losartan and furosemide - Hold scheduled oral antihypertensives in light of #1. 8. Hyperlipidemia; on atorvastatin - Resume statin and check Lipid Profile. 9. Hypothyroidism after total thyroidectomy; on levothyroxine - Maintain levothyroxine as before and check TSH. 10. Chronic tobacco abuse; ~1 PPD x ~30 years - Tobacco Cessation will be strongly encouraged with nicotine patch over to control cravings. 11. DM-2; of unknown control on metformin, dapagliflozin and tirzepatide - Hold oral hypoglycemics. Cover with lowest-intensity sliding scale insulin. 12. History of renal cyst - Noted with no mention of this on CT this admission. 13. History of laparoscopic cholecystectomy - Noted. 14. History of appendectomy - Noted. 15. Neuropathy; on gabapentin 3 times daily - Continue current therapy. 16. Vertigo; on as needed meclizine 3 times daily - Resume prn meclizine. 16. GERD; on famotidine - Patient switched to IV pantoprazole in light of #1. 17. OA; with kyphosis and chronic back pain - We we will follow pain regimen and scale as outlined in #1. 18. DVT/GI prophylaxis - Patient already on apixaban for #5 which would be continued. Pantoprazole 40 mg IV daily. Total time: Approximately (but not less than) 75 minutes. Update: I was called by [facility] and informed patient's blood cultures of already returned positive for gram-negative rods. Sepsis Attestation Sepsis Alert: Yes Sepsis Attestation: Agree w/Sepsis Date exam was performed: 01/14/25 Time exam was performed: 23:25 Possible Source of Sepsis: Genitourinary Sepsis Organ Dysfunction Criteria Present: SBP < 90 mmHg or MAP < 65 mmHg, SBP decrease of more than 40 mmHg and Lactic Acid > 2 mmol/L Fluid Resuscitation Fluid resuscitation indicated?: Yes Fluid Resuscitation ordered: 30 ml/kg fluid bolus ordered Amount of fluid ordered: 2 Sepsis Note Date exam was performed: 01/15/25 Time exam was performed: 03:25 Sepsis Attestation: Sepsis re-evaluation was performed Response to fluids: Fluid responsive hypotension Charges/Coding Visit Charges Inpatient E&M: 08359 Init Hosp L3
[2025-01-14 22:45] LABS: Reflex Lactate? Y
[2025-01-14 23:34] LABS: Troponin T High Sens 4 HR 253 ng/L (<=14)
--- OUTSIDE RECORDS SUMMARY | 2025-01-14 23:40 | XMS RPT_ITS | CCD ---
Author Organization [facility] CliniSyri Care Team Providers Care Glue Drier Operator Name Role Phone Dr. Nehemias Arizmendi Primary Care Provider [phone] Nehemias Arizmendi Referring Provider Dr. Nehemias Arizmendi Other Provider Dr. Nehemias Olsen Attending Provider Ngoc Ochoa Attending Provider Unavailable Dr. Nehemias Arizmendi Primary Care Provider [phone] Nehemias Arizmendi Referring Provider 1([facility])[phone] Nehemias Olsen Attending Provider Dr. Nehemias Olsen Referring Provider Dr. Nehemias Olsen Other Provider 1([facility])[phone] Amber Krishnan Attending Provider Unavailable Dr. Edgar Jefferson Attending Provider Dimitri CAPITAL MARKETS SPECIALIST, CAPITAL MARKETS SPECIALIST-C Rahel Attending Provider Dimitri CAPITAL MARKETS SPECIALIST, CAPITAL MARKETS SPECIALIST-C Rahel Referring Provider Dimitri MANUEL, CAPITAL MARKETS SPECIALIST-C Rahel Other Provider 1([facility])[phone] Edgar Jefferson Referring Provider Dr. Edgar Jefferson Other Provider Dr. Nehemias Arizmendi Primary Care Provider 1([facility])[phone] Nehemias Olsen Attending Provider Dr. Nehemias Olsen Referring Provider Dr. Nehemias Olsen Other Provider 1([facility])[phone] Amber Krishnan Attending Provider Unavailable Dr. Nehemias Arizmendi Referring Provider 1([facility])[phone] Edgar Jefferson Attending Provider Dimitri MANUEL, MAR-Camilo Mcginnis Attending Provider Dimitri CAPITAL MARKETS SPECIALIST, MAR-Camilo Mcginnis Referring Provider Dimitri MANUEL NP-Camilo [...] Ortiz Attending Provider Ugo HAMMOND, Dr. Del iCd Primary Care Provider [phone] Rachel HAMMOND, Dr. Ortiz Attending Provider Dr. Kyler Hay DO Emergency Provider [facility], Dr. Justin Admit Provider Unavail able Robles DO, Dr. Justin Attending Provider Unav ailable Crow-Jean Paul DO, Dr. Chávez Emergency Provider de Les DO, Dr. Justin Admit Provider Unavail able Robles DO, Dr. Justin Other Provider Unavail able Maxx HAMMOND, Dr. Erickson Other Provider Charles PARKS, Dr. Booth Attending Provider Simón PARKS, Dr. Dan Other Provider Brad HAMMOND, Dr. Gale Attending Provider Maxx HAMMOND, Dr. Erickson Attending Provider Robles DO, Dr. Justin Referring Provider Unav ailable Simón PARKS, Dr. Dan Attending Provider Thelma Pinedo Attending Provider Charles PARKS, Dr. Booth Referring Provider Robles DO, Dr. Justin Attending Provider Unav ailable Charles PARKS, Dr. Booth Other Provider Rachel HAMMOND, Dr. Ortiz Referring Provider Leobardo Soto Attending Unavailable Abner, Dre Admitting Unavailable Joppdanni, Dre Consulting Unavailable Arizmendi, Nehemias Primary Care Unavailable Friend, Teo Consulting Unavailable Leobardo Soto Consulting Unavailable Dre Levine Attending Unavailable Leobardo Soto Referring Unavailable Friend, Teo Attending Unavailable Leobardo Soto Attending Unavailable Bharathi Robles Consulting Unavailable Bharathi Robles Admitting Unavailable Arizmendi, Nehemias Primary Care Unavailable Maxx, Dre Consulting Unavailable Sy Gr Consulting Unavailable Leobardo Soto Consulting Unavailable Ajitlanki, Diana Attending Unavailable Arizmendi, Nehemias Primary Care Unavailable Vellanki, Diana Attending Unavailable Arizmendi, Nehemias Primary Care Unavailable Friend, Teo Attending Unavailable Arizmendi, Nehemias Primary Care Unavailable Charles Leobardo Referring Unavailable Thelma Parrish Attending Unavailable Bharathi Robles Attending Unavailable Sy Gr Attending Unavailable Diana Ramos Attending Unavailable Ajitlanki, Diana Referring Unavailable Arizmendi, Nehemias Primary Care Unavailable Arizmendi, Nehemias Primary Care Unavailable Nehemias Arizmendi Attending Unavailable Nehemias Arizmendi Referring Unavailable Diana Ramos Attending Unavailable Ugo, Nehemias Primary Care Unavailable Leobardo Soto Attending Unavailable Dre Levine Consulting Unavailable Dre Levine Admitting Unavailable Arizmendi, Nehemias Primary Care Unavailable Friend, Teo Consulting Unavailable Bharathi Robles Consulting Unavailable Bharathi Robles Admitting Unavailable Leobardo Soto Attending Unavailable Ugo, Nehemias Primary Care Unavailable Dre Lilly Consulting Unavailable Sy Gr Consulting Unavailable Diana Ramos Attending Unavailable Ugo, Nehemias Primary Care Unavailable Leobardo Soto Referring Unavailable Friend, Teo Attending Unavailable Ugo, Nehemias Primary Care Unavailable Bharathi Robles Referring Unavailable Dre Lilly Attending Unavailable Ugo, Nehemias Primary Care Unavailable Baljinder Salinas Attending Unavailable Arizmendi, Nehemias Primary Care Unavailable Arizmendi , Dr. Del Cid Attending Provider Ugo HAMMOND, Dr. Del Cid Referring Provider [phone] Ugo HAMMOND, Dr. Del Cid Primary Care Provider [phone] Rachel HAMMOND, Dr. Ortiz Attending Provider [facility] Yrn PIERCE Attending Provider [phone] Allergies Allergy Classification Reported Allergen(s) Allergy Type Date of Onset Reaction(s) Facility (20 sources) Sulfonamides (Antibiotic) Allergy to substance 2 [facility] (2 sources) Sulfamethoxazole / Trimethoprim; Translations: [sulfamethoxazole-tr imethoprim] Drug Allergy [facility] (1 source) Sulfonamides (Antibiotic); Translations: [sulfa drugs] Drug allergy [facility] (1 source) Sulfonamide; Translations: [sulfa drugs] Drug allergy [facility] (1 source) Sulfonamides (Antibiotic) Drug allergy (disorder) 5 [facility] Repository Medications Current Medications Medication Drug Class(es) Dates Sig (Normalized) Sig (Original) albuterol MDI (90 mcg/inh) CFC free inhalation aerosol (2 sources) Start: 01-06-2023 take 1 puff(s) by inhalation every two hours as needed for wheezing albuterol MDI (90 mcg/inh) CFC free inhalation aerosol 1 puff(s), Inhalation, q2h, PRN as needed for wheezing, # 18 gram(s), 0 Refill(s) Start Date: 01/06/23 Status: Ordered amLODIPine 10 mg oral tablet (20 sources) Dihydropyridine Calcium Channel Garcia Start: 01-01-2022 take 1 tablet by mouth once daily Amlodipine 10 mg tablet Active 10 mg PO DAILY January 01, 2022 12:00am bp apixaban 5 mg oral tablet (4 sources) Factor Xa Inhibitor Start: 01-14-2025 take 1 tablet by mouth twice daily Apixaban (Eliquis) 5 mg tablet Active 5 mg PO TWICE A DAY January 14, 2025 12:00am Start: 10-23-2024 End: 01-14-2025 take 1 tablet by mouth once Apixaban (Eliquis Dvt-Pe T reat 30d Start) 5 mg (74 tabs) tablets,dose pack Discontinued 0 PO .COMPLEX 74 0 October 23, 2024 12:00am January 14, 2025 9:49am orally per package directions aspirin 81 mg delayed release oral tablet (20 sources) Platelet Aggregation Inhibitor, Nonsteroidal Anti-inflammatory Drug Start: 03-17-2022 Aspirin (Adult Lo w Dose Aspirin) 81 mg tablet,delayed release (DR/EC) Active 81 MG PO DAILY March 17, 2022 12:00am Start: 02-06-2022 End: 02-09-2022 take 1 tablet by mouth once daily Aspirin (Adult Aspirin Regimen) 81 mg tablet,delayed release (DR/EC) Discontinued 81 mg PO DAILY February 06, 2022 12:00am February 09, 2022 3:13pm cetirizine hydrochloride 10 mg oral tablet (5 sources) Histamine-1 Receptor Antagonist Start: 01-28-2024 take 1 tablet by mouth once daily as needed Cetirizine 10 mg tablet Active 10 mg PO DAILY as needed for allergies January 28, 2024 12:00am Coenzyme Q10 (2 sources) Start: 01-06-2023 take 1 dose by mouth once daily Coenzyme Q10 Dose : 100 mg =, Oral, qDay, 0 Refill(s) Start Date: 01/06/23 Status: Ordered dapagliflozin 10 mg oral tablet (4 sources) Sodium-Glucose Cotransporter 2 Inhibitor Start: 10-18-2024 take 1 tablet by mouth once daily Dapagliflozin Propanediol (Farxiga) 10 mg tablet Active 10 mg PO DAILY October 18, 2024 12:00am DULoxetine 30 mg delayed release oral capsule (20 sources) Serotonin and Norepinephrine Reuptake Inhibitor Start: 01-06-2023 DULoxetine 30 mg oral delayed release capsule Dose : 60 mg = 2 cap(s), Oral, qHS, 0 Refill(s) Start Date: 01/06/23 Status: Ordered Start: 09-16-2022 End: 01-28-2024 take 2 capsules by mouth at bedtime Duloxetine 30 mg capsule,delayed release(DR/EC) Discontinued 60 mg PO AT BEDTIME September 16, 2022 10:21am January 28, 2024 2:32am Start: 09-16-2022 take 60 mg by mouth at bedtime Duloxetine Active 60 MG PO AT BEDTIME September 16, 2022 10:21am Start: 12-16-2021 End: 09-16-2022 take 1 capsule by mouth at bedtime Duloxetine 30 mg capsule,delayed release(DR/EC) Discontinued 30 mg PO AT BEDTIME December 16, 2021 12:00am September 16, 2022 10:23am famotidine 20 mg oral tablet (20 sources) Histamine-2 Receptor Antagonist Start: 01-14-2025 take 1 tablet by mouth once daily Famotidine 20 mg tablet Active 20 mg PO daily January 14, 2025 12:00am Start: 09-16-2022 End: 01-31-2024 take 1 tablet by mouth once daily Famotidine 20 mg tablet Discontinued 20 mg PO DAILY September 16, 2022 12:00am January 31, 2024 5:14pm gerd Start: 01-27-2021 End: 12-16-2021 take 1 tablet by mouth once daily Famotidine 20 mg tablet Discontinued 20 mg PO DAILY January 27, 2021 12:00am December 16, 2021 1:47pm hydroxychloroquine sulfate 200 mg oral tablet (20 sources) Antimalarial, Antirheumatic Agent Start: 01-01-2022 take 400 mg by mouth once daily Hydroxychloroquine Active 400 MG PO DAILY January 01, 2022 2:31pm Start: 03-11-2018 End: 01-01-2022 take 1 tablet by mouth twice daily Hydroxychloroquine 200 mg tablet Discontinued 200 mg PO TWICE A DAY December 16, 2021 1:46pm January 01, 2022 2:33pm Start: 03-11-2018 End: 12-16-2021 take 1 tablet by mouth once daily Hydroxychloroquine 200 mg tablet Discontinued 200 mg PO DAILY January 27, 2021 12:00am December 16, 2021 1:47pm leflunomide 20 mg oral tablet (20 sources) Antirheumatic Agent Start: 01-28-2024 take 1 tablet by mouth once daily Leflunomide 20 mg tablet Active 20 mg PO DAILY January 28, 2024 12:00am Start: 01-01-2022 End: 01-28-2024 Leflunomide (Arava) 10 mg ta blet Discontinued 20 mg PO DAILY January 01, 2022 2:31pm January 28, 2024 2:33am Start: 12-16-2021 End: 01-01-2022 take 1 tablet by mouth once daily Leflunomide (Arava) 10 mg tablet Discontinued 10 mg PO DAILY December 16, 2021 12:00am January 01, 2022 2:33pm Start: 03-11-2018 End: 12-16-2021 take 1 tablet by mouth once daily Leflunomide 20 mg tablet Discontinued 20 mg PO DAILY January 27, 2021 12:00am December 16, 2021 1:46pm Thyroxine (20 sources) l-Thyroxine Start: 01-06-2023 take 1 dose by mouth once daily levothyroxine Dose : 150 mcg =, Oral, qDay, 0 Refill(s) Start Date: 01/06/23 Status: Ordered Start: 09-28-2022 End: 11-02-2022 take 1 tablet by mouth once daily Levothyroxine 150 mcg tablet Active 0 .ROUTE .COMPLEX 90 0 November 02, 2022 9:33am thyroid TAKE 1 TABLET BY MOUTH EVERY DAY Start: 06-23-2022 End: 09-28-2022 take 1 capsule by mouth once daily Levothyroxine 150 mcg capsule Discontinued 150 ug PO DAILY 90 0 September 28, 2022 6:56am September 28, 2022 10:42am Start: 04-15-2022 End: 06-23-2022 take 1 tablet by mouth once daily Levothyroxine (Synthroid) 125 mcg tablet Discontinued 125 ug PO DAILY 60 0 April 15, 2022 12:00am June 23, 2022 1:52pm losartan potassium 100 mg oral tablet (20 sources) Angiotensin 2 Receptor Garcia Start: 01-01-2022 take 1 tablet by mouth once daily Losartan 100 mg tablet Active 100 mg PO DAILY January 01, 2022 12:00am Start: 12-16-2021 End: 01-01-2022 take 1 tablet by mouth once daily Losartan 50 mg tablet Discontinued 50 mg PO DAILY December 16, 2021 12:00am January 01, 2022 2:31pm Start: 01-27-2021 End: 12-16-2021 take 1 tablet by mouth once daily Losartan 25 mg tablet Discontinued 25 mg PO DAILY January 27, 2021 12:00am December 16, 2021 1:46pm meclizine hydrochloride 25 mg oral tablet (20 sources) Antiemetic Start: 12-16-2021 take 1 tablet by mouth three times daily as needed for dizziness Meclizine 25 mg tablet Active 25 mg PO THREE TIMES A DAY as needed for dizziness December 16, 2021 12:00am metFORMIN hydrochloride 1000 mg oral tablet (13 sources) Biguanide Start: 11-16-2022 take 1 tablet by mouth twice daily Metformin 1,000 mg tablet Active 1000 mg PO TWICE A DAY November 16, 2022 12:00am dm metoprolol tartrate 25 mg oral tablet (3 sources) beta-Adrenergic Garcia Start: 02-12-2022 take 2 tablets by mouth every hour Metoprolol Tartrate Active 25 MG PO DAILY 2 February 12, 2022 12:00am Please take two tablets 1 hour prior to procedure. nitrofurantoin, macrocrystals 25 mg / nitrofurantoin, monohydrate 75 mg oral capsule (1 source) Nitrofuran Antibacterial Start: 01-14-2025 take 1 capsule by mouth every twelve hours at mealtime Nitrofurantoin Monohyd/M-Cryst (Macrobid) 100 mg capsule Active 100 mg PO Q12H 14 7 0 January 14, 2025 12:00am January 20, 2025 12:00am must administer with a meal/food Tirzepatide (Mounjaro) 7.5 mg/0.5 mL pen injector (1 source) Start: 01-14-2025 Tirzepatide (Mounjaro) 7.5 mg/0.5 mL pen injector Active 7.5 mg SC EVERY WEEK January 14, 2025 12:00am Completed/Discontinued Medications Medication Drug Class(es) Dates Sig (Normalized) Sig (Original) acetaminophen 325 mg / HYDROcodone bitartrate 5 mg oral tablet (19 sources) Opioid Agonist Start: 04-15-2022 End: 05-11-2022 Hydrocodone-Acetami nophen 5-325 mg tablet Discontinued 1 {tbl} PO Q8H as needed for pain 5 2 0 April 15, 2022 May 11, 2022 4:08pm Nodule of left lobe of thyroid gland Nontoxic single thyroid nodule Start: 04-15-2022 End: 05-11-2022 take 1 tablet by mouth every eight hours Hydrocodone-Acetaminophen Discontinued 1 TABLET PO Q8H 5 2 April 15, 2022 May 11, 2022 4:08pm 200 actuat albuterol 0.09 mg/actuat dry powder inhaler (11 sources) beta2-Adrenergic Agonist Start: 01-03-2023 End: 01-28-2024 Albuterol Sulfate 90 mcg/actuation aerosol powdr breath activated Discontinued 2 NMA INHALATION Q4H as needed for shortness of breath or wheezing 1 0 January 03, 2023 12:00am January 28, 2024 2:31am any standard albuterol inhaler in stock Start: 01-03-2023 Albuterol Sulf ate Active 2 INH INHALATION Q4H 1 January 03, 2023 12:00am any standard albuterol inhaler in stock amoxicillin 875 mg / clavulanate 125 mg oral tablet (3 sources) Penicillin-class Antibacterial Start: 10-23-2024 End: 01-14-2025 Amoxicillin-Pot Clavulanate 875-125 mg tablet Discontinued 1 {tbl} PO TWICE A DAY 10 5 0 October 23, 2024 12:00am January 14, 2025 9:46am atorvastatin 20 mg oral tablet (20 sources) HMG-CoA Reductase Inhibitor Start: 03-24-2022 End: 05-05-2023 take 1 tablet by mouth at bedtime Atorvastatin 20 mg tablet Discontinued 20 mg PO AT BEDTIME 30 12 April 15, 2022 8:12pm May 05, 2023 9:00am bismuth subsalicylate 262 mg oral tablet (5 sources) Bismuth Start: 02-08-2024 End: 01-14-2025 take 1 tablet by mouth every twenty-four hours Bismuth Subsalicylate (Soothe (Bismuth Subsalicylate)) 262 mg tablet,chewable Discontinued 1 {tbl} PO EVERY 6 HOURS 56 0 February 08, 2024 12:00am January 14, 2025 9:48am diarrhea do not exceed 16 tabs per 24 hrs clonazePAM 0.5 mg oral tablet (20 sources) Benzodiazepine Start: 02-25-2022 End: 09-16-2022 take 1 tablet by mouth three times daily as needed Clonazepam 0.5 mg Tablet Discontinued 0.5 mg PO THREE TIMES A DAY as needed for Vertigo February 25, 2022 12:00am September 16, 2022 10:21am cyclobenzaprine hydrochloride 5 mg oral tablet (20 sources) Muscle Relaxant Start: 12-16-2021 End: 01-01-2022 take 1 tablet by mouth three times daily as needed Cyclobenzaprine 5 mg tablet Discontinued 5 mg PO THREE TIMES A DAY as needed December 16, 2021 12:00am January 01, 2022 2:32pm doxycycline hyclate 100 mg oral capsule (11 sources) Tetracycline-class Drug Start: 01-03-2023 End: 01-28-2024 take 1 capsule by mouth twice daily Doxycycline Hyclate 100 mg capsule Discontinued 100 mg PO TWICE A DAY 14 7 0 January 03, 2023 12:00am January 28, 2024 2:32am empagliflozin 25 mg oral tablet (5 sources) Sodium-Glucose Cotransporter 2 Inhibitor Start: 01-28-2024 End: 10-18-2024 take 1 tablet by mouth once daily Empagliflozin (Jardiance) 25 mg tablet Discontinued 25 mg PO DAILY January 28, 2024 12:00am October 18, 2024 7:35pm dm furosemide 20 mg oral tablet (6 sources) Loop Diuretic Start: 10-18-2024 End: 01-14-2025 take 1 tablet by mouth once daily Furosemide 20 mg tablet Discontinued 20 mg PO DAILY October 18, 2024 12:00am January 14, 2025 9:48am Start: 01-09-2023 furosemide 20 mg oral tablet Dose : 20 mg = 1 tab(s), Oral, qDay, # 30 tab(s), 0 Refill(s), Pharmacy: [facility]/pharmacy #[id number], 160, cm, 01/06/23 6:00:00 EDT, Height Start Date: 01/09/23 Status: Ordered gabapentin 100 mg oral capsule (5 sources) Anti-epileptic Agent Start: 01-28-2024 End: 01-14-2025 take 1 capsule by mouth three times daily Gabapentin 100 mg capsule Discontinued 100 mg PO THREE TIMES A DAY January 28, 2024 12:00am January 14, 2025 9:48am pain 12 hr guaiFENesin 1200 mg extended release oral tablet (3 sources) Start: 10-23-2024 End: 01-14-2025 take 1 tablet by mouth twice daily, then take 1 tablet by mouth every twelve hours Guaifenesin (Mucus Relief Er) 1,200 mg Tablet Extended Release 12hr Discontinued 1200 mg PO TWICE A DAY 14 7 0 October 23, 2024 12:00am January 14, 2025 9:48am ibuprofen 200 mg oral tablet (20 sources) Nonsteroidal Anti-inflammatory Drug Start: 09-16-2022 End: 01-31-2024 take 1 tablet by mouth every six hours Ibuprofen (Advil) 200 mg tablet Discontinued 200 mg PO EVERY 6 HOURS September 16, 2022 12:00am January 31, 2024 5:14pm pain Start: 01-27-2021 End: 12-16-2021 take 1 tablet by mouth every six hours as needed Ibuprofen (Advil) 200 mg tablet Discontinued 200 mg PO EVERY 6 HOURS as needed January 27, 2021 12:00am December 16, 2021 1:47pm meloxicam 15 mg oral tablet (20 sources) Nonsteroidal Anti-inflammatory Drug Start: 12-16-2021 End: 01-01-2022 take 1 tablet by mouth once daily Meloxicam 15 mg tablet Discontinued 15 mg PO DAILY December 16, 2021 12:00am January 01, 2022 2:33pm metroNIDAZOLE 500 mg oral tablet (5 sources) Nitroimidazole Antimicrobial Start: 02-08-2024 End: 10-18-2024 take 1 tablet by mouth three times daily Metronidazole 500 mg tablet Discontinued 500 mg PO THREE TIMES A DAY 42 0 February 08, 2024 12:00am October 18, 2024 7:35pm H. pylori pantoprazole 40 mg delayed release oral tablet (10 sources) Proton Pump Inhibitor Start: 02-08-2024 End: 01-14-2025 take 1 tablet by mouth every twelve hours as needed for gastroesophageal reflux disease Pantoprazole 40 mg tablet,delayed release (DR/EC) Discontinued 40 mg PO Q12H as needed for GERD October 18, 2024 12:00am January 14, 2025 9:47am Start: 01-31-2024 take 1 tablet by alem twice daily Pantoprazole 40 mg Tablet,Delayed Release (Dr/Ec) Active 40 mg PO TWICE A DAY 60 January 31, 2024 12:00am predniSONE 10 mg oral tablet (20 sources) Start: 01-10-2023 End: 01-22-2023 prednisone 10mg tab (TAPER) Taper 40-30-20-10 x 3 days each dose, Oral, qDay, Take with food/meal, # 30 tab(s), 0 Refill(s), Pharmacy: [facility]/pharmacy #[id number], 160, cm, 01/06/23 6:00:00 EDT, Height Start Date: 01/10/23 Stop Date: 01/22/23 Status: Ordered Start: 11-16-2022 End: 01-14-2025 take 1 tablet by mouth once daily as needed for arthritis Prednisone 10 mg tablet Discontinued 10 mg PO DAILY as needed for ARTHRITIS FLARE UP November 16, 2022 12:00am January 14, 2025 9:48am Start: 01-27-2021 End: 12-16-2021 take 1 tablet by mouth once daily Prednisone 10 mg tablet Discontinued 10 mg PO DAILY January 27, 2021 12:00am December 16, 2021 1:47pm sucralfate 1000 mg oral tablet (5 sources) Aluminum Complex Start: 01-31-2024 End: 10-18-2024 take 1 tablet by mouth 1 hour(s) before mealtime Sucralfate 1 gram Tablet Discontinued 1 g PO ONE HOURS BEFORE MEALS & BED 42 14 0 January 31, 2024 12:00am October 18, 2024 7:35pm tetracycline hydrochloride 500 mg oral capsule (5 sources) Tetracycline-class Antimicrobial Start: 02-08-2024 End: 10-18-2024 take 1 capsule by mouth every six hours Tetracycline 500 mg capsule Discontinued 500 mg PO EVERY 6 HOURS 56 0 February 08, 2024 12:00am October 18, 2024 7:35pm H. pylori ubidecarenone 100 mg oral tablet (11 sources) Start: 11-16-2022 End: 01-28-2024 take 10 tablets by mouth once daily Coenzyme Q10 100 mg tablet Discontinued 100 mg PO DAILY November 16, 2022 12:00am January 28, 2024 2:32am On Hold: Pt has been DC'd Problems Active Problems Problem Classification Problem Date Documented Da te Episodic/Chronic Abdominal pain (8 sources) Abdominal pain; Translations: [Unspecified abdominal pain] Onset: 4 02-08-2024 Episodic Cardiac dysrhythmias (20 sources) Tachycardia; Translations: [Tachycardia, unspecified] Episodic Complications of surgical procedures or medical care (5 sources) Postprocedural hypothyroidism; Translations: [Other postprocedural status] Chronic Conditions associated with dizziness or vertigo (20 sources) Lightheadedness; Translations: [Dizziness and giddiness] 03-24-2022 Episodic Coronary atherosclerosis and other heart disease (1 source) Coronary atherosclerosis; Translations: [Atherosclerotic heart disease of [place] coronary artery with other forms of angina pectoris] Chronic Diabetes mellitus with complications (1 source) Type 2 diabetes mellitus with diabetic neuropathy, unspecified; Translations: [Type 2 diabetes mellitus with diabetic neuropathy, unspecified] Onset: 5 Chronic Diabetes mellitus without complication (2 sources) Type 2 diabetes mellitus without complication; Translations: [Type 2 diabetes mellitus without complications] Onset: 3 Chronic Diabetes mellitus without complication (18 sources) Hyperglycemia; Translations: [Hyperglycemia, unspecified] 09-16-2022 Episodic Disorders of lipid metabolism (20 sources) Mixed hyperlipidemia; Translations: [Mixed hyperlipidemia] 03-24-2022 Chronic Essential hypertension (20 sources) Hypertensive disorder; Translations: [Essential (primary) hypertension] Chronic Hypertension with complications and secondary hypertension (1 source) Hypertensive heart failure; Translations: [Hypertensive heart disease with heart failure] Chronic Nonspecific chest pain (10 sources) Chest pain; Translations: [Chest pain, unspecified] 01-03-2023 Episodic Osteoarthritis (2 sources) Arthritis 03-11-2018 Chronic Other acquired deformities (20 sources) Kyphosis deformity of spine; Translations: [Unspecified kyphosis, site unspecified] 01-27-2021 Chronic Other and ill-defined cerebrovascular disease (13 sources) Cerebrovascular disease; Translations: [Cerebrovascular disease, unspecified] 09-16-2022 Chronic Other circulatory disease (20 sources) Carotid bruit; Translations: [Other specified symptoms and signs involving the circulatory and respiratory systems] 01-27-2021 Episodic Other diseases of kidney and ureters (5 sources) Cyst of kidney; Translations: [Cyst of kidney, acquired] 02-08-2024 Episodic Other endocrine disorders (5 sources) Adrenal mass; Translations: [Disorder of adrenal gland, unspecified] 02-08-2024 Chronic Other endocrine disorders (1 source) Disorder of adrenal gland, unspecified; Translations: [Disorder of adrenal gland, unspecified] Onset: Chronic Other lower respiratory disease (20 sources) Dyspnea on exertion; Translations: [Other forms of dyspnea] 01-01-2022 Episodic Other lower respiratory disease (20 sources) Other forms of dyspnea; Translations: [Other respiratory abnormalities] Episodic Other lower respiratory disease (6 sources) Respiratory insufficiency; Translations: [Other abnormalities of breathing] 10-19-2024 Episodic Other lower respiratory disease (1 source) Hypoxemia; Translations: [Hypoxemia] Onset: Episodic Other lower respiratory disease (1 source) Other abnormalities of breathing; Translations: [Other abnormalities of breathing] Onset: Episodic Other nervous system disorders (13 sources) Polyneuropathy; Translations: [Polyneuropathy, unspecified] 09-16-2022 Chronic Other nervous system disorders (5 sources) Polyneuropathy, unspecified; Translations: [Unspecified hereditary and idiopathic peripheral neuropathy] 09-16-2022 Chronic Other nutritional; endocrine; and metabolic disorders (6 sources) Body mass index 40+ - severely obese; Translations: [Morbid (severe) obesity due to excess calories] 10-31-2024 Chronic Other nutritional; endocrine; and metabolic disorders (1 source) Morbid (severe) obesity due to excess calories; Translations: [Morbid (severe) obesity due to excess calories] Onset: 5 Chronic Other nutritional; endocrine; and metabolic disorders (1 source) Body mass index (BMI) 40.0-44.9, adult; Translations: [Body mass index [BMI] 40.0-44.9, adult] Onset: 5 Chronic Other screening for suspected conditions (not mental disorders or infectious disease) (20 sources) Electrocardiogram abnormal; Translations: [Abnormal electrocardiogram [ECG] [EKG]] Episodic Pancreatic disorders (not diabetes) (1 source) Chronic pancreatitis; Translations: [Other chronic pancreatitis] Chronic Pancreatic disorders (not diabetes) (6 sources) Acute pancreatitis; Translations: [Acute pancreatitis without necrosis or infection, unspecified] Onset: 4 02-08-2024 Episodic Luisa-; endo-; and myocarditis; cardiomyopathy (except that caused by tuberculosis or sexually transmitted disease) (2 sources) Pericardial effusion - noninflammatory; Translations: [Other pericardial effusion (noninflammatory)] Onset: 3 Episodic Phlebitis; thrombophlebitis and thromboembolism (7 sources) Deep venous thrombosis; Translations: [Acute embolism and thrombosis of unspecified deep veins of unspecified lower extremity] Onset: 5 10-19-2024 Episodic Comment on above: LEG IN THE PAST Pleurisy; pneumothorax; pulmonary collapse (2 sources) Pleural effusion; Translations: [Pleural effusion, not elsewhere classified] Onset: 3 Episodic Pneumonia (except that caused by tuberculosis or sexually transmitted disease) (12 sources) Community acquired pneumonia; Translations: [Pneumonia, unspecified organism] 01-03-2023 Episodic Pulmonary heart disease (8 sources) Pulmonary embolism; Translations: [Other pulmonary embolism without acute cor pulmonale] Onset: 5 10-19-2024 Episodic Regional enteritis and ulcerative colitis (5 sources) Crohn's disease; Translations: [Crohn's disease, unspecified, without complications] 02-21-2024 Chronic Residual codes; unclassified (1 source) Tobacco user; Translations: [Tobacco use] Episodic Residual codes; unclassified (2 sources) H/O: Disorder 03-11-2018 Episodic Respiratory failure; insufficiency; arrest (adult) (1 source) Acute respiratory failure; Translations: [Acute respiratory failure with hypoxia] Episodic Rheumatoid arthritis and related disease (20 sources) Rheumatoid arthritis; Translations: [Rheumatoid arthritis, unspecified] Onset: 5 Chronic Comment on above: ON MEDS Substance-related disorders (20 sources) Smoker; Translations: [Nicotine dependence, unspecified, uncomplicated] Chronic Syncope (20 sources) Near syncope; Translations: [Syncope and collapse] 03-24-2022 Episodic Thyroid disorders (20 sources) Thyroid nodule; Translations: [Nontoxic single thyroid nodule] Chronic Comment on above: Addendum a chest x-r ay was obtained November 27, 2020 at [facility]. There was felt to be an air-fluid level on the medial right heart border. [place] possibly the hiatal hernia. 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 Suggest CT of the thorax for further evaluation.This was the reason the patient got the chest CT scan which then identified the thyroid findings.Edgar Jefferson M.D., F.A.C.S. Urinary tract infections (2 sources) Urinary tract infectious disease; Translations: [Urinary tract infection, site not specified] 01-14-2025 Episodic Past or Other Problems Problem Classification Problem Date Documented Date Episodic/Chronic Residual codes; unclassified (20 sources) History of cardiac catheterization; Translations: [Other specified postprocedural states] Onset: 02-26-2022 03-24-2022 Episodic Comment on above: LEFT MAIN: Angiograp hically normal; LEFT ANTERIOR DESCENDING ARTERY: PROX LAD: Mild calcification, MID LAD: Mild luminal irregularities, segment potentially c/w anintramyocardial bridging segment; CIRCUMFLEX ARTERY: PROX CIRC: Mild calcification, Mild luminal irregularities less than 30%; RIGHT CORONARY ARTERY: Angiographically normal per cardiac cath Dr. Olsen 03/24/22 Results Test Name Value Interpretation Reference Range Facility Anion gap in Serum or Plasma Ordered By: Nehemias Arizmendi on 11-27-2024 Anion gap [Moles/Vol] 15 mmol/L -15 [facility] BUN/creatinine ratioOrdered By: Nehemias Arizmendi on 11-27-2024 Urea nitrogen/Creatinine [Mass ratio] 24.2 mg/mg High 10- [facility] Calculated very low density lipoprotein (VLDL) cholesterol measurementOrdered By: Nehemias Arizmendi on 11-27-2024 Calculated very low density lipoprotein (VLDL) cholesterol measurement 33 mg/dL 5-40 [facility] Comprehensive Metabolic Prof ilon 11-27-2024 ALK PHOS 106 U/L High 35-104 [facility] Comment on above: Performed By: #### L 501.73584, L501.9985, L506.0400, L502.0250, L500.4050, L500.4100, L501.9520 ####[facility] [address] [place], [address] BUN/CRE 24.2 RATIO High 10-20 [facility] Comment on above: Performed By: #### L 501.23585, L501.9985, L506.0400, L502.0250, L500.4050, L500.4100, L501.9520 ####[facility] [address] [place], [address] GAP 15 Normal 5-15 [facility] Comment on above: Performed By: #### L 501.07391, L501.9985, L506.0400, L502.0250, L500.4050, L500.4100, L501.9520 ####[facility] [address] [place], [address] Potassium [Moles/Vol] 3.8 mmol/L Normal 3.3-5.1 [facility] Comment on above: Performed By: #### L 501.11990, L501.9985, L506.0400, L502.0250, L500.4050, L500.4100, L501.9520 ####[facility] [address] [place], [address] T PROT 8.3 g/dL Normal 5.9-8.4 [facility] Comment on above: Performed By: #### L 501.43024, L501.9985, L506.0400, L502.0250, L500.4050, L500.4100, L501.9520 ####[facility] [address] [place], [address] Comprehensive Metabolic Prof ilOrdered By: Nehemias Arizmendi on 11-27-2024 Albumin [Mass/Vol] 4.3 g/dL 3.4-4.8 [facility] Comment on above: Performed By: #### L 501.46988, L501.9985, L506.0400, L502.0250, L500.4050, L500.4100, L501.9520 ####[facility] [address] [place], [address] Albumin/Globulin [Mass ratio] 1.1 {ratio} 0.9-2.4 [facility] Comment on above: Performed By: #### L 501.75193, L501.9985, L506.0400, L502.0250, L500.4050, L500.4100, L501.9520 ####[facility] [address] [place], [address] ALT [Catalytic activity/Vol] 11 U/L <35 [facility] Comment on above: Performed By: #### L 501.25186, L501.9985, L506.0400, L502.0250, L500.4050, L500.4100, L501.9520 ####[facility] [address] [place], [address] AST [Catalytic activity/Vol] 18 U/L <32 [facility] Comment on above: Performed By: #### L 501.93131, L501.9985, L506.0400, L502.0250, L500.4050, L500.4100, L501.9520 ####[facility] [address] [place], [address] Bilirubin [Mass/Vol] 0.44 mg/dL 0.00-1.30 [facility] Comment on above: Performed By: #### L 501.83544, L501.9985, L506.0400, L502.0250, L500.4050, L500.4100, L501.9520 ####[facility] [address] [place], [address] Calcium [Mass/Vol] 9.9 mg/dL 7.6-11.0 [facility] Comment on above: Performed By: #### L 501.95720, L501.9985, L506.0400, L502.0250, L500.4050, L500.4100, L501.9520 ####[facility] [address] [place], [address] Chloride [Moles/Vol] 103 mmol/L 98-108 [facility] Comment on above: Performed By: #### L 501.94594, L501.9985, L506.0400, L502.0250, L500.4050, L500.4100, L501.9520 ####[facility] [address] [place], [place], [phone] CO2 [Moles/Vol] 23.8 mmol/L 21.0-32.0 [facility] Comment on above: Performed By: #### L 501.89836, L501.9985, L506.0400, L502.0250, L500.4050, L500.4100, L501.9520 ####[facility] [address] [place], [place], [phone] Creatinine [Mass/Vol] 0.65 mg/dL Low 0.70-1.20 [facility] Comment on above: Performed By: #### L 501.18131, L501.9985, L506.0400, L502.0250, L500.4050, L500.4100, L501.9520 ####[facility] [address] [place], [address] GFR/1.73 sq M.predicted among non-blacks MDRD (S/P/Bld) [Vol rate/Area] 100 mL/min/{1.73_m2} >60 [facility] Comment on above: Result Comment: mL/m in/1.73m2 CKD-EPI Creatinine Equation (2020) Performed By: #### L 501.30616, L501.9985, L506.0400, L502.0250, L500.4050, L500.4100, L501.9520 ####[facility] [address] [place], [address] mL/min/1.73m2 CKD-EP I Creatinine Equation (2020) Globulin (S) [Mass/Vol] 4.0 g/dL 2.2-4.2 [facility] Comment on above: Performed By: #### L 501.41569, L501.9985, L506.0400, L502.0250, L500.4050, L500.4100, L501.9520 ####[facility] [address] [place], [address] Glucose [Mass/Vol] 177 mg/dL High 70-99 [facility] Comment on above: Performed By: #### L 501.93562, L501.9985, L506.0400, L502.0250, L500.4050, L500.4100, L501.9520 ####[facility] [address] [place], [address] Sodium [Moles/Vol] 141 mmol/L 133-145 [facility] Comment on above: Performed By: #### L 501.30854, L501.9985, L506.0400, L502.0250, L500.4050, L500.4100, L501.9520 ####[facility] [address] [place], [address] Urea nitrogen [Mass/Vol] 16 mg/dL 4-19 [facility] Comment on above: Performed By: #### L 501.79639, L501.9985, L506.0400, L502.0250, L500.4050, L500.4100, L501.9520 ####[facility] [address] [place], [address] Free Q7Dvlxvke By: Nehemias petty on 11-27-2024 Free T3 [Mass/Vol] 2.9 pg/mL 2.18-3.98 [facility] Comment on above: Performed By: #### L 501.92322, L501.9985, L506.0400, L502.0250, L500.4050, L500.4100, L501.9520 ####[facility] [address] [place], [address] Hemoglobin A1con 11-27-2024 HbA1c (Bld) [Mass fraction] 8.6 % High <=5.6 [facility] Comment on above: Result Comment: Norm al < 5.7 % Prediabetic 5.7 - 6.4 % Diabetic >or= 6.5 % Please note range changes. Performed By: #### L 501.14567, L501.9985, L506.0400, L502.0250, L500.4050, L500.4100, L501.9520 ####[facility] [address] [place], [address] Hemoglobin A1c percentageOrd ered By: Nehemias Arizmendi on 11-27-2024 HbA1c (Bld) [Mass fraction] 8.6 % High <5.7 [facility] Comment on above: Normal < 5.7 % Predi abetic 5.7 - 6.4 % Diabetic >or= 6.5 % Please note range changes. Lipid Profileon 11-27-2024 CHOL:HDL 2.38 Normal [facility] Comment on above: Performed By: #### L 501.84880, L501.9985, L506.0400, L502.0250, L500.4050, L500.4100, L501.9520 ####[facility] [address] [place], [address] Cholesterol in VLDL [Mass/Vol] 33 mg/dL Normal 5-40 [facility] Comment on above: Performed By: #### L 501.92383, L501.9985, L506.0400, L502.0250, L500.4050, L500.4100, L501.9520 ####[facility] [address] [place], [place], [id number] Lipid ProfileOrdered By: Norma Arizmendi on 11-27-2024 Cholesterol [Mass/Vol] 155 mg/dL <201 [facility] Comment on above: Result Comment: Chol esterol level, Desirable <200 mg/dLBorderline high cholesterol 200-239 mg/dLHigh cholesterol >=240 mg/dLRecommendations of the NCEP Adult Treatment Panel for thefollowing risk-cutoff thresholds for the [place] Americanpopulation. Performed By: #### L 501.27601, L501.9985, L506.0400, L502.0250, L500.4050, L500.4100, L501.9520 ####[facility] [address] [place], [place], [id number] Cholesterol level, D esirable <200 mg/dLBorderline high cholesterol 200-239 mg/dLHigh cholesterol >=240 mg/dLRecommendations of the NCEP Adult Treatment Panel for the following risk-cutoff thresholds for the [place] population. Cholesterol in HDL [Mass/Vol] 65 mg/dL >40 [facility] Comment on above: Result Comment: Adrienne onal Cholesterol Education Program (NCEP) guidelines:<40 mg/dL: Low HDL-cholesterol (major risk factor for CHD)>= 60 mg/dL: High HDL-cholesterol (negative risk factor forCHD)HDL-cholesterol is affected by a number of factors, e.g.smoking, exercise, hormones, sex and age. Performed By: #### L 501.36002, L501.9985, L506.0400, L502.0250, L500.4050, L500.4100, L501.9520 ####[facility] [address] [place], [place], [phone] National Cholesterol Education Program (NCEP) guidelines:<40 mg/dL: Low HDL-cholesterol (major risk factor for CHD)>= 60 mg/dL: High HDL-cholesterol (negative risk factor for CHD)HDL-cholesterol is affected by a number of factors, e.g. smoking, exercise, hormones, sex and age. Cholesterol in LDL [Mass/Vol] 57 mg/dL [facility] Comment on above: Result Comment: Bord mheudq=444-404 mg/dL Higher Exai=403 mg/dL or greater Performed By: #### L 501.18679, L501.9985, L506.0400, L502.0250, L500.4050, L500.4100, L501.9520 ####[facility] [address] [place], [address] Phcpyegfnz=501-936 m g/dL & Higher Wdrr=639 mg/dL or greater Triglyceride [Mass/Vol] 164 mg/dL <199 [facility] Comment on above: Result Comment: The drugs N-Acetylcysteine and Metamizole may falselydepress this assay.Normal range: <150 mg/dLBorderline High: 150-199 mg/dLHigh: 200-499 mg/dLVery High: >500 mg/dL Performed By: #### L 501.03434, L501.9985, L506.0400, L502.0250, L500.4050, L500.4100, L501.9520 ####[facility] [address] [place], [place], [phone] The drugs N-Acetylcy steine and Metamizole may falsely depress this assay. Normal range: <150 mg/dLBorderline High: 150-199 mg/dLHigh: 200-499 mg/dLVery High: >500 mg/dL Microalb:Creat Ratio,Random URon 11-27-2024 Creatinine [Mass/Vol] 24.50 mg/dL Low 28.00- 217. 00 [facility] Comment on above: Performed By: #### L 501.94776, L501.9985, L506.0400, L502.0250, L500.4050, L500.4100, L501.9520 ####[facility] [address] [place], [place], [phone] MALB:CREAT UNABLE TO CALCULATE Normal [facility] Comment on above: Performed By: #### L 501.84002, L501.9985, L506.0400, L502.0250, L500.4050, L500.4100, L501.9520 ####[facility] [address] [place], [place], [phone] MICROALBUMIN,UR < 12.0 Normal NO RANGE EST. [facility] Comment on above: Performed By: #### L 501.67356, L501.9985, L506.0400, L502.0250, L500.4050, L500.4100, L501.9520 ####[facility] [address] [place], [place], [phone] Microalbumin/creat ratio urO rdered By: Nehemias Arizmendi on 11-27-2024 Urine microalbumin/creatinin e ratio measurement UNABLE TO CALCULATE mg/g CRE [facility] Potassium measurement (mass/ volume)Ordered By: Nehemias Arizmendi on 11-27-2024 Potassium (Unsp spec) [Mass/Vol] 3.8 mmol/L 3.3-5.1 [facility] Random urine creatinine jasiel urement (mass/volume)Ordered By: Nehemias Arizmendi on 11-27-2024 Creatinine Unsp time (U) [Mass/Vol] 24.50 mg/dL Low 28.00-217. 00 [facility] Screening total cholesterol/ high density lipoprotein (HDL) cholesterol ratioOrdered By: Nehemias Arizmendi on 11-27-2024 Cholesterol.total/Chol esterol in HDL [Mass ratio] 2.38 {ratio} [facility] Serum or plasma alkaline quintin sphatase measurementOrdered By: Nehemias Arizmendi on 11-27-2024 ALP [Catalytic activity/Vol] 106 U/L High 35-104 [facility] T4 Free Directon 11-27-2024 T4 FREE DIRECT 1.70 ng/dL High 0.76-1.46 [facility] Comment on above: Performed By: #### L 501.44134, L501.9985, L506.0400, L502.0250, L500.4050, L500.4100, L501.9520 ####[facility] [address] [place], [address] T4 freeOrdered By: Nehemias petty on 11-27-2024 Free T4 [Mass/Vol] 1.70 ng/dL High 0.76-1.46 [facility] TSH DL <= 0.005 mIU/L QnOrde red By: Nehemias Arizmendi on 11-27-2024 TSH Qn 0.293 uIU/mL Low 0.300-4.20 0 [facility] Thyroid Stim Hormone (TSH)on 11-27-2024 TSH 0.293 uIU/mL Low 0.300-4.20 0 [facility] Comment on above: Performed By: #### L 501.03932, L501.9985, L506.0400, L502.0250, L500.4050, L500.4100, L501.9520 ####[facility] [address] [place], [place], [phone] Total proteinOrdered By: Norma Arizmendi on 11-27-2024 Protein [Mass/Vol] 8.3 g/dL 5.9-8.4 [facility] Urine albumin measurement wi th detection limit of 20 mg/L or less (mass/volume)Ordered By: Nehemias Arizmendi on 11-27-2024 Albumin DL <= 20 mg/L (U) [Mass/Vol] < 12.0 mg/L NO RANGE EST. [facility] Absolute lymphocyte countOrd ered By: Diana Ramos on 11-21-2024 Lymphocytes Auto (Unsp spec) [#/Vol] 1.75 10*3/uL 0.83-4.51 [facility] Absolute neutrophil countOrd ered By: Diana Ramos on 11-21-2024 Neutrophils (Bld) [#/Vol] 5.7 10*3/uL 2.0-7.7 [facility] Anion gap in Serum or Plasma Ordered By: Diana Ramos on 11-21-2024 Anion gap [Moles/Vol] 15 mmol/L - [facility] Automated lymphocyte count a s percentage of total leukocytesOrdered By: Diana Ramos on 11-21-2024 Lymphocytes/100 WBC Auto (Unsp spec) 21.3 % - [facility] BUN/creatinine ratioOrdered By: Diana Ramos on 11-21-2024 Urea nitrogen/Creatinine [Mass ratio] 22.0 mg/mg High 10- [facility] Basophil percentageOrdered B y: Diana Ramos on 11-21-2024 Basophils/100 WBC (Bld) 0.6 % 0-1 [facility] Bilirubin, totalOrdered By: Diana Ramos on 11-21-2024 Bilirubin [Mass/Vol] 0.44 mg/dL 0.00-1.30 [facility] CBC W/Diff, Automatedon 10-27 Absolute Lymph 1.75 X10 3/uL Normal 0.83-4.51 [facility] Comment on above: Performed By: #### L 500.4050, L100.0100 ####[facility] [address] [place], [address] Absolute Neut 5.7 X10 3/uL Normal 2.0-7.7 [facility] Comment on above: Performed By: #### L 500.4050, L100.0100 ####[facility] [address] [place], [address] Basophils/100 WBC (Bld) 0.6 % Normal 0-1 [facility] Comment on above: Performed By: #### L 500.4050, L100.0100 ####[facility] [address] [place], [address] Eosinophils/100 WBC (Bld) 1.8 % Normal 0-5 [facility] Comment on above: Performed By: #### L 500.4050, L100.0100 ####[facility] [address] [place], [address] Erythrocyte distribution width (RBC) [Ratio] 14.6 % Normal 11.6-14.6 [facility] Comment on above: Performed By: #### L 500.4050, L100.0100 ####[facility] [address] [place], [address] Hematocrit (Bld) [Volume fraction] 44.0 % Normal 37-47 [facility] Comment on above: Performed By: #### L 500.4050, L100.0100 ####[facility] [address] [place], [address] Hemoglobin (Bld) [Mass/Vol] 14.0 g/dL Normal 12.0-15.0 [facility] Comment on above: Performed By: #### L 500.4050, L100.0100 ####[facility] [address] [place], [address] IG% 0.500 Normal 0.0-0.9 [facility] Comment on above: Result Comment: IG% - Immature Granulocytes (promyelocytes, myelocytes andmetamyelocytes) > 1% indicates that a LEFT SHIFT is Present. Performed By: #### L 500.4050, L100.0100 ####[facility] [address] [place], [address] Lymphocytes/100 WBC (Bld) 21.3 % Normal 19-41 [facility] Comment on above: Performed By: #### L 500.4050, L100.0100 ####[facility] [address] [place], [address] MCH (RBC) [Entitic mass] 28.1 pg Normal 27.0-32.0 [facility] Comment on above: Performed By: #### L 500.4050, L100.0100 ####[facility] [address] [place], [address] MCHC (RBC) [Mass/Vol] 31.8 g/dL Low 32-36 [facility] Comment on above: Performed By: #### L 500.4050, L100.0100 ####[facility] [address] [place], [address] MCV (RBC) [Entitic vol] 88.2 fL Normal 81-99 [facility] Comment on above: Performed By: #### L 500.4050, L100.0100 ####[facility] [address] [place], [address] Monocytes/100 WBC (Bld) 6.6 % Normal 0-10 [facility] Comment on above: Performed By: #### L 500.4050, L100.0100 ####[facility] [address] [place], [address] Neutrophils/100 WBC (Bld) 69.2 % Normal 47-70 [facility] Comment on above: Performed By: #### L 500.4050, L100.0100 ####[facility] [address] [place], [address] Nucleated RBC (Bld) [#/Vol] 0 10*3/uL Normal 0-5 [facility] Comment on above: Performed By: #### L 500.4050, L100.0100 ####[facility] [address] [place], [address] Platelet mean volume (Bld) [Entitic vol] 10.0 fL Normal 6.2-12.0 [facility] Comment on above: Performed By: #### L 500.4050, L100.0100 ####[facility] [address] [place], [address] Platelets (Bld) [#/Vol] 231 10*3/uL Normal 150-450 [facility] Comment on above: Performed By: #### L 500.4050, L100.0100 ####[facility] [address] [place], [address] RBC (Bld) [#/Vol] 4.99 10*6/uL Normal 4.2-5.4 [facility] Comment on above: Performed By: #### L 500.4050, L100.0100 ####[facility] [address] [place], [address] RDW SD 46.7 fl High 35.1-43.9 [facility] Comment on above: Performed By: #### L 500.4050, L100.0100 ####[facility] [address] [place], [address] WBC (Bld) [#/Vol] 8.2 10*3/uL Normal 4.4-11.0 [facility] Comment on above: Performed By: #### L 500.4050, L100.0100 ####[facility] [address] [place], [address] Carbon dioxide, total [Moles /volume] in Central venous bloodOrdered By: Diana Ramos on 11-21-2024 CO2 [Moles/Vol] 21.2 mmol/L 21.0-32.0 [facility] Chloride assayOrdered By: Sanaz Ramos on 11-21-2024 Chloride [Moles/Vol] 103 mmol/L 98-108 [facility] Comprehensive Metabolic Prof ilon 11-21-2024 Albumin [Mass/Vol] 4.1 g/dL Normal 3.4-4.8 [facility] Comment on above: Performed By: #### L 500.4050, L100.0100 ####[facility] [address] [place], [address] Albumin/Globulin [Mass ratio] 1.1 {ratio} Normal 0.9-2.4 [facility] Comment on above: Performed By: #### L 500.4050, L100.0100 ####[facility] [address] [place], [address] ALK PHOS 106 U/L High 35-104 [facility] Comment on above: Performed By: #### L 500.4050, L100.0100 ####[facility] [address] [place], [address] ALT [Catalytic activity/Vol] 11 U/L Normal <=34 [facility] Comment on above: Performed By: #### L 500.4050, L100.0100 ####[facility] [address] [place], [address] AST [Catalytic activity/Vol] 16 U/L Normal <=31 [facility] Comment on above: Performed By: #### L 500.4050, L100.0100 ####[facility] [address] [place], [address] Bilirubin [Mass/Vol] 0.44 mg/dL Normal 0.00-1.30 [facility] Comment on above: Performed By: #### L 500.4050, L100.0100 ####[facility] [address] [place], [address] BUN/CRE 22.0 RATIO High 10-20 [facility] Comment on above: Performed By: #### L 500.4050, L100.0100 ####[facility] [address] [place], [address] Calcium [Mass/Vol] 9.6 mg/dL Normal 7.6-11.0 [facility] Comment on above: Performed By: #### L 500.4050, L100.0100 ####[facility] [address] [place], [address] Chloride [Moles/Vol] 103 mmol/L Normal 98-108 [facility] Comment on above: Performed By: #### L 500.4050, L100.0100 ####[facility] [address] [place], [address] CO2 [Moles/Vol] 21.2 mmol/L Normal 21.0-32.0 [facility] Comment on above: Performed By: #### L 500.4050, L100.0100 ####[facility] [address] [place], [address] Creatinine [Mass/Vol] 0.75 mg/dL Normal 0.70-1.20 [facility] Comment on above: Performed By: #### L 500.4050, L100.0100 ####[facility] [address] [place], [address] GAP 15 Normal 5-15 [facility] Comment on above: Performed By: #### L 500.4050, L100.0100 ####[facility] [address] [place], [address] GFR/1.73 sq M.predicted among non-blacks MDRD (S/P/Bld) [Vol rate/Area] 91 mL/min/{1.73_m2} Normal >60 [facility] Comment on above: Result Comment: mL/m in/1.73m2 CKD-EPI Creatinine Equation (2020) Performed By: #### L 500.4050, L100.0100 ####[facility] [address] [place], [address] Globulin (S) [Mass/Vol] 3.8 g/dL Normal 2.2-4.2 [facility] Comment on above: Performed By: #### L 500.4050, L100.0100 ####[facility] [address] [place], [address] Glucose [Mass/Vol] 216 mg/dL High 70-99 [facility] Comment on above: Performed By: #### L 500.4050, L100.0100 ####[facility] [address] [place], [address] Potassium [Moles/Vol] 3.4 mmol/L Normal 3.3-5.1 [facility] Comment on above: Performed By: #### L 500.4050, L100.0100 ####[facility] [address] [place], [address] Sodium [Moles/Vol] 139 mmol/L Normal 133-145 [facility] Comment on above: Performed By: #### L 500.4050, L100.0100 ####[facility] [address] [place], [address] T PROT 7.9 g/dL Normal 5.9-8.4 [facility] Comment on above: Performed By: #### L 500.4050, L100.0100 ####[facility] [address] [place], [address] Urea nitrogen [Mass/Vol] 17 mg/dL Normal 4-19 [facility] Comment on above: Performed By: #### L 500.4050, L100.0100 ####[facility] [address] [place], [address] Eosinophil percentageOrdered By: Diana Ramos on 11-21-2024 Eosinophils/100 WBC (Bld) 1.8 % 0-5 [facility] Erythrocyte distribution wid th ratioOrdered By: Diana Ramos on 11-21-2024 Erythrocyte distribution width (RBC) [Ratio] 14.6 % 11.6-14.6 [facility] Erythrocyte distribution wid th standard deviationOrdered By: Diana Ramos on 11-21-2024 Erythrocyte distribution width (RBC) [Ratio] 46.7 fl High 35.1-43.9 [facility] Glomerular filtration rate ( GFR) estimation/1.73 sq m using serum, plasma, or whole bOrdered By: Diana Ramos on 11-21-2024 GFR/1.73 sq M.predicted among non-blacks MDRD (S/P/Bld) [Vol rate/Area] 91 mL/min/{1.73_m2} >60 [facility] Comment on above: mL/min/1.73m2 CKD-EP I Creatinine Equation (2020) Hematocrit Auto (Bld) [Volum e fraction]Ordered By: Diana Ramos on 11-21-2024 Hematocrit (Bld) [Volume fraction] 44.0 % 37-47 [facility] Hemoglobin measurementOrdere d By: Diana Ramos on 11-21-2024 Hemoglobin (Bld) [Mass/Vol] 14.0 g/dL 12.0-15.0 [facility] Immature granulocytes/100 WB C Auto (Bld)Ordered By: Diana Ramos on 11-21-2024 Immature granulocytes/100 WBC (Bld) 0.500 % 0.0-0.9 [facility] Comment on above: IG% - Immature Granu locytes (promyelocytes, myelocytes and metamyelocytes) > 1% indicates that a LEFT SHIFT is Present. Laboratory - Chemistry and C hemistry - challengeOrdered By: Diana Ramos on 11-21-2024 AST [Catalytic activity/Vol] 16 U/L <32 [facility] MCV (mean corpuscular volume ) determinationOrdered By: Diana Ramos 11-21-2024 MCV (RBC) [Entitic vol] 88.2 fL 81-99 [facility] Mean corpuscular hemoglobin (MCH) determinationOrdered By: Diana Ramos on 11-21-2024 MCH (RBC) [Entitic mass] 28.1 pg 27.0-32.0 [facility] Mean corpuscular hemoglobin concentration (MCHC) determinationOrdered By: Diana Ramos on 11-21-2024 MCHC (RBC) [Mass/Vol] 31.8 g/dL Low 32-36 [facility] Mean platelet volume determi nationOrdered By: Diana Ramos on 11-21-2024 Platelet mean volume (Bld) [Entitic vol] 10.0 fL 6.2-12.0 [facility] Monocyte percentageOrdered B y: Diana Ramos on 11-21-2024 Monocytes/100 WBC (Bld) 6.6 % 0-10 [facility] Neutrophil percentageOrdered By: Diana Ramos on 11-21-2024 Neutrophils/100 WBC (Bld) 69.2 % 47-70 [facility] Nucleated red blood cell per centageOrdered By: Diana Ramos on 11-21-2024 Nucleated RBC/100 WBC (Bld) [Ratio] 0 % 0-5 [facility] Platelet countOrdered By: Sanaz Ramos on 11-21-2024 Platelets (Bld) [#/Vol] 231 10*3/uL 150-450 [facility] Potassium measurement (mass/ volume)Ordered By: Diana Ramos on 11-21-2024 Potassium (Unsp spec) [Mass/Vol] 3.4 mmol/L 3.3-5.1 [facility] RBC Auto (Bld) [#/Vol]Ordere d By: Diana Ramos on 11-21-2024 RBC (Bld) [#/Vol] 4.99 10*6/uL 4.2-5.4 [facility] Serum creatinine measurement (mass/volume)Ordered By: Diana Ramos on 11-21-2024 Creatinine [Mass/Vol] 0.75 mg/dL 0.70-1.20 [facility] Serum globulin measurementOr dered By: Diana Ramos on 11-21-2024 Globulin (S) [Mass/Vol] 3.8 g/dL 2.2-4.2 [facility] Serum glucose measurement (m ass/volume)Ordered By: Diana Ramos on 11-21-2024 Glucose [Mass/Vol] 216 mg/dL High 70-99 [facility] Serum or plasma alanine smith otransferase (ALT) measurementOrdered By: Diana Ramos on 11-21-2024 ALT [Catalytic activity/Vol] 11 U/L <35 [facility] Serum or plasma albumin jasiel urement (mass/volume)Ordered By: Diana Ramos on 11-21-2024 Albumin [Mass/Vol] 4.1 g/dL 3.4-4.8 [facility] Serum or plasma albumin/glob ulin mass ratioOrdered By: Diana Ramos on 11-21-2024 Albumin/Globulin [Mass ratio] 1.1 {ratio} 0.9-2.4 [facility] Serum or plasma alkaline quintin sphatase measurementOrdered By: Diana Ramos on 11-21-2024 ALP [Catalytic activity/Vol] 106 U/L High 35-104 [facility] Serum or plasma calcium jasiel urement (mass/volume)Ordered By: Diana Ramos on 11-21-2024 Calcium [Mass/Vol] 9.6 mg/dL 7.6-11.0 [facility] Serum or plasma urea nitroge n measurement (mass/volume)Ordered By: iDana Ramos on 11-21-2024 Urea nitrogen [Mass/Vol] 17 mg/dL 4-19 [facility] Sodium levelOrdered By: Alexia Ramos on 11-21-2024 Sodium [Moles/Vol] 139 mmol/L 133-145 [facility] Total proteinOrdered By: Katarina Ramos on 11-21-2024 Protein [Mass/Vol] 7.9 g/dL 5.9-8.4 [facility] White blood cell (WBC) count Ordered By: Diana Ramos on 11-21-2024 WBC (Bld) [#/Vol] 8.2 10*3/uL 4.4-11.0 [facility] Anion gap in Serum or Plasma Ordered By: Leobardo Soto on 10-23-2024 Anion gap [Moles/Vol] 10 mmol/L 5- [facility] BUN/creatinine ratioOrdered By: Leobardo Soto on 10-23-2024 Urea nitrogen/Creatinine [Mass ratio] 57.9 mg/mg High 04-16 [facility] Basic Metabolic Profile (BMP )on 10-23-2024 BUN/CRE 57.9 RATIO High 04-16 [facility] Comment on above: Performed By: #### L 100.0500, L500.2500 ####[facility] [address] [place], [place], [id number] Calcium [Mass/Vol] 9.0 mg/dL Normal 7.6-11.0 [facility] Comment on above: Performed By: #### L 100.0500, L500.2500 ####[facility] [address] [place], [address] Chloride [Moles/Vol] 99 mmol/L Normal 98-108 [facility] Comment on above: Performed By: #### L 100.0500, L500.2500 ####[facility] [address] [place], [address] CO2 [Moles/Vol] 32.1 mmol/L High 21.0-32.0 [facility] Comment on above: Performed By: #### L 100.0500, L500.2500 ####[facility] [address] [place], [address] Creatinine [Mass/Vol] 0.53 mg/dL Low 0.70-1.20 [facility] Comment on above: Performed By: #### L 100.0500, L500.2500 ####[facility] [address] [place], [address] ECRCL 122.16 ml/min Normal 50-250 [facility] Comment on above: Performed By: #### L 100.0500, L500.2500 ####[facility] [address] [place], [address] GAP 10 Normal 5-15 [facility] Comment on above: Performed By: #### L 100.0500, L500.2500 ####[facility] [address] [place], [address] GFR/1.73 sq M.predicted among non-blacks MDRD (S/P/Bld) [Vol rate/Area] 105 mL/min/{1.73_m2} Normal >60 [facility] Comment on above: Result Comment: mL/m in/1.73m2 CKD-EPI Creatinine Equation (2020) Performed By: #### L 100.0500, L500.2500 ####[facility] [address] [place], [address] Glucose [Mass/Vol] 173 mg/dL High 70-99 [facility] Comment on above: Performed By: #### L 100.0500, L500.2500 ####[facility] [address] [place], [address] Potassium [Moles/Vol] 3.2 mmol/L Low 3.3-5.1 [facility] Comment on above: Performed By: #### L 100.0500, L500.2500 ####[facility] [address] [place], [address] Sodium [Moles/Vol] 141 mmol/L Normal 133-145 [facility] Comment on above: Performed By: #### L 100.0500, L500.2500 ####[facility] [address] [place], [address] Urea nitrogen [Mass/Vol] 31 mg/dL High 4-19 [facility] Comment on above: Performed By: #### L 100.0500, L500.2500 ####[facility] [address] [place], [address] Bedside Glucoseon 10-23-2024 FINGERSTICK GLU 191 mg/dL High 74-106 [facility] Comment on above: Result Comment: SARA GEMENT OF PATIENT CARE PER NURSING PROTOCOL Performed By: #### L 501.080 ####[facility] [address] [place], [address] FINGERSTICK GLU 185 mg/dL High 74-106 [facility] Comment on above: Result Comment: SARA GEMENT OF PATIENT CARE PER NURSING PROTOCOL Performed By: #### L 501.080 ####[facility] [address] [place], [address] CBC-Complete Blood Cnt No Di ffon 10-23-2024 Erythrocyte distribution width (RBC) [Ratio] 14.3 % Normal 11.6-14.6 [facility] Comment on above: Performed By: #### L 100.0500, L500.2500 ####[facility] [address] [place], [address] Hematocrit (Bld) [Volume fraction] 38.6 % Normal 37-47 [facility] Comment on above: Performed By: #### L 100.0500, L500.2500 ####[facility] [address] [place], [address] Hemoglobin (Bld) [Mass/Vol] 12.4 g/dL Normal 12.0-15.0 [facility] Comment on above: Performed By: #### L 100.0500, L500.2500 ####[facility] [address] [place], [address] MCH (RBC) [Entitic mass] 28.4 pg Normal 27.0-32.0 [facility] Comment on above: Performed By: #### L 100.0500, L500.2500 ####[facility] [address] [place], [address] MCHC (RBC) [Mass/Vol] 32.1 g/dL Normal 32-36 [facility] Comment on above: Performed By: #### L 100.0500, L500.2500 ####[facility] [address] [place], [address] MCV (RBC) [Entitic vol] 88.5 fL Normal 81-99 [facility] Comment on above: Performed By: #### L 100.0500, L500.2500 ####[facility] [address] [place], [address] Platelet mean volume (Bld) [Entitic vol] 9.5 fL Normal 6.2-12.0 [facility] Comment on above: Performed By: #### L 100.0500, L500.2500 ####[facility] [address] [place], [address] Platelets (Bld) [#/Vol] 241 10*3/uL Normal 150-450 [facility] Comment on above: Performed By: #### L 100.0500, L500.2500 ####[facility] [address] [place], [address] RBC (Bld) [#/Vol] 4.36 10*6/uL Normal 4.2-5.4 [facility] Comment on above: Performed By: #### L 100.0500, L500.2500 ####[facility] [address] [place], [address] RDW SD 46.2 fl High 35.1-43.9 [facility] Comment on above: Performed By: #### L 100.0500, L500.2500 ####[facility] [address] [place], [address] WBC (Bld) [#/Vol] 8.2 10*3/uL Normal 4.4-11.0 [facility] Comment on above: Performed By: #### L 100.0500, L500.2500 ####[facility] [address] [place], [address] Carbon dioxide, total [Moles /volume] in Central venous bloodOrdered By: Leobardo Soto on 10-23-2024 CO2 [Moles/Vol] 32.1 mmol/L High 21.0-32.0 [facility] Chloride assayOrdered By: Ezequiel Soto on 10-23-2024 Chloride [Moles/Vol] 99 mmol/L 98-108 [facility] Discharge Instructionon 09-27 Discharge Instruction Normal [facility] Erythrocyte distribution wid th ratioOrdered By: Leobardo Soto on 10-23-2024 Erythrocyte distribution width (RBC) [Ratio] 14.3 % 11.6-14.6 [facility] Erythrocyte distribution wid th standard deviationOrdered By: Leobardo Soto on 10-23-2024 Erythrocyte distribution width (RBC) [Ratio] 46.2 fl High 35.1-43.9 [facility] Glomerular filtration rate ( GFR) estimation/1.73 sq m using serum, plasma, or whole bOrdered By: Leobardo Soto on 10-23-2024 GFR/1.73 sq M.predicted among non-blacks MDRD (S/P/Bld) [Vol rate/Area] 105 mL/min/{1.73_m2} >60 [facility] Comment on above: mL/min/1.73m2 CKD-EP I Creatinine Equation (2020) [facility] deOrdered By: Leobardo Soto on 10-23-2024 Glucose [Mass/Vol] 191 mg/dL High 74-106 [facility] Comment on above: MANAGEMENT OF PATIEN T CARE PER NURSING PROTOCOL Hematocrit Auto (Bld) [Volum e fraction]Ordered By: Leobardo Soto on 10-23-2024 Hematocrit (Bld) [Volume fraction] 38.6 % 37-47 [facility] Hemoglobin measurementOrdere d By: Leobardo Soto on 10-23-2024 Hemoglobin (Bld) [Mass/Vol] 12.4 g/dL 12.0-15.0 [facility] MCV (mean corpuscular volume ) determinationOrdered By: Leobardo Soto on 10-23-2024 MCV (RBC) [Entitic vol] 88.5 fL 81-99 [facility] Mean corpuscular hemoglobin (MCH) determinationOrdered By: Leobardo Soto on 10-23-2024 MCH (RBC) [Entitic mass] 28.4 pg 27.0-32.0 [facility] Mean corpuscular hemoglobin concentration (MCHC) determinationOrdered By: Leobardo Soto on 10-23-2024 MCHC (RBC) [Mass/Vol] 32.1 g/dL 32-36 [facility] Mean platelet volume determi nationOrdered By: Leobardo Soto on 10-23-2024 Platelet mean volume (Bld) [Entitic vol] 9.5 fL 6.2-12.0 [facility] Platelet countOrdered By: Ezequiel Soto on 10-23-2024 Platelets (Bld) [#/Vol] 241 10*3/uL 150-450 [facility] Potassium measurement (mass/ volume)Ordered By: Leobardo Soto on 10-23-2024 Potassium (Unsp spec) [Mass/Vol] 3.2 mmol/L Low 3.3-5.1 [facility] RBC Auto (Bld) [#/Vol]Ordere d By: Leobardo Soto on 10-23-2024 RBC (Bld) [#/Vol] 4.36 10*6/uL 4.2-5.4 [facility] Serum creatinine measurement (mass/volume)Ordered By: Leobardo Soto on 10-23-2024 Creatinine [Mass/Vol] 0.53 mg/dL Low 0.70-1.20 [facility] Serum glucose measurement (m ass/volume)Ordered By: Leobardo Soto on 10-23-2024 Glucose [Mass/Vol] 173 mg/dL High 70-99 [facility] Serum or plasma calcium jasiel urement (mass/volume)Ordered By: Leobardo Soto on 10-23-2024 Calcium [Mass/Vol] 9.0 mg/dL 7.6-11.0 [facility] Serum or plasma urea nitroge n measurement (mass/volume)Ordered By: Leobardo Soto on 10-23-2024 Urea nitrogen [Mass/Vol] 31 mg/dL High 4-19 [facility] Sodium levelOrdered By: [place] Soto on 10-23-2024 Sodium [Moles/Vol] 141 mmol/L 133-145 [facility] White blood cell (WBC) count Ordered By: Leobardo Soto on 10-23-2024 WBC (Bld) [#/Vol] 8.2 10*3/uL 4.4-11.0 [facility] Bedside Glucoseon 10-22-2024 FINGERSTICK GLU 213 mg/dL High 74-106 [facility] Comment on above: Result Comment: SARA HURTADO OF PATIENT CARE PER NURSING PROTOCOL Performed By: #### L 501.080 ####[facility] [address] [place], [address] FINGERSTICK GLU 256 mg/dL High 74-106 [facility] Comment on above: Result Comment: SARA GEMENT OF PATIENT CARE PER NURSING PROTOCOL Performed By: #### L 501.080 ####[facility] [address] [place], [address] FINGERSTICK GLU 255 mg/dL High 74-106 [facility] Comment on above: Result Comment: SARA GEMENT OF PATIENT CARE PER NURSING PROTOCOL Performed By: #### L 501.080 ####[facility] [address] [place], [address] FINGERSTICK GLU 213 mg/dL High 74-106 [facility] Comment on above: Result Comment: SARA GEMENT OF PATIENT CARE PER NURSING PROTOCOL Performed By: #### L 501.080 ####[facility] [address] [place], [address] Assessment of wrist artery p atency prior to arterial punctureOrdered By: Sy Gr on 10-21-2024 Arterial patency Wrist artery --pre arterial puncture Positive [facility] Bedside Glucoseon 10-21-2024 FINGERSTICK GLU 288 mg/dL High 74-106 [facility] Comment on above: Result Comment: SARA GEMENT OF PATIENT CARE PER NURSING PROTOCOL Performed By: #### L 501.080 ####[facility] [address] [place], [address] FINGERSTICK GLU 306 mg/dL High 74-106 [facility] Comment on above: Result Comment: SARA GEMENT OF PATIENT CARE PER NURSING PROTOCOL Performed By: #### L 501.080 ####[facility] [address] [place], [address] FINGERSTICK GLU 355 mg/dL High 74-106 [facility] Comment on above: Result Comment: SARA GEMENT OF PATIENT CARE PER NURSING PROTOCOL Performed By: #### L 501.080 ####[facility] [address] [place], [address] FINGERSTICK GLU 151 mg/dL High -106 [facility] Comment on above: Result Comment: SARA HURTADO OF PATIENT CARE PER NURSING PROTOCOL Performed By: #### L 501.080 ####[facility] [address] [place], [address] [facility] Base excess Calc (Bld) [Moles/Vol] -6 mmol/L Low -2 to +2 [facility] Comment on above: Performed By: #### L 9000.0800 ####[facility] [address] [place], [address] Blood Gas Type ART Normal [facility] Comment on above: Performed By: #### L 9000.0800 ####[facility] [address] [place], [address] CO2 [Moles/Vol] 22 mmol/L Normal [facility] Comment on above: Performed By: #### L 9000.0800 ####[facility] [address] [place], [address] Comment 06/04 Normal [facility] Comment on above: Performed By: #### L 9000.0800 ####[facility] [address] [place], [place], [address] FI02 40.0 Normal [facility] Comment on above: Performed By: #### L 9000.0800 ####[facility] [address] [place], [address] HCO3 (Bld) [Moles/Vol] 21.1 mmol/L Low 22-26 [facility] Comment on above: Performed By: #### L 9000.0800 ####[facility] [address] [place], [address] Mode AC Normal [facility] Comment on above: Performed By: #### L 9000.0800 ####[facility] [address] [place], [address] O2 Delivery Dev BiPAP Normal [facility] Comment on above: Performed By: #### L 9000.0800 ####[facility] [address] [place], [address] pCO2 43.8 mmHg Normal 35-45 [facility] Comment on above: Performed By: #### L 9000.0800 ####[facility] [address] [place], [address] pH (Bld) 7.29 [pH] Low 7.35-7.45 [facility] Comment on above: Performed By: #### L 9000.0800 ####[facility] [address] [place], [address] PO2 74 mmHG Low 75-100 [facility] Comment on above: Performed By: #### L 9000.0800 ####[facility] [address] [place], [address] RR 14 Normal [facility] Comment on above: Performed By: #### L 9000.0800 ####[facility] [address] [place], [address] SITE L Brach Normal [facility] Comment on above: Performed By: #### L 9000.0800 ####[facility] [address] [place], [address] SO2 93 Low 95-99 [facility] Comment on above: Performed By: #### L 9000.0800 ####[facility] [address] [place], [address] IVANA TEST Positive Normal [facility] Comment on above: Performed By: #### L 9000.0800 ####[facility] [address] [place], [address] Base excess Calc (Bld) [Moles/Vol] -5 mmol/L Low -2 to +2 [facility] Comment on above: Performed By: #### L 9000.0800 ####[facility] [address] [place], [address] Blood Gas Type ART Normal [facility] Comment on above: Performed By: #### L 9000.0800 ####[facility] [address] [place], [address] CO2 [Moles/Vol] 23 mmol/L Normal [facility] Comment on above: Performed By: #### L 9000.0800 ####[facility] [address] [place], [address] FI02 8.0 Normal [facility] Comment on above: Performed By: #### L 9000.0800 ####[facility] [address] [place], [address] HCO3 (Bld) [Moles/Vol] 21.5 mmol/L Low 22-26 [facility] Comment on above: Performed By: #### L 9000.0800 ####[facility] [address] [place], [address] Mode Not entered Normal [facility] Comment on above: Performed By: #### L 9000.0800 ####[facility] [address] [place], [address] O2 Delivery Dev Cannula Normal [facility] Comment on above: Performed By: #### L 9000.0800 ####[facility] [address] [place], [address] pCO2 46.8 mmHg High 35-45 [facility] Comment on above: Performed By: #### L 9000.0800 ####[facility] [address] [place], [address] pH (Bld) 7.27 [pH] Low 7.35-7.45 [facility] Comment on above: Performed By: #### L 9000.0800 ####[facility] [address] [place], [address] PO2 65 mmHG Low 75-100 [facility] Comment on above: Performed By: #### L 9000.0800 ####[facility] [address] [place], [address] SITE R Radial Normal [facility] Comment on above: Performed By: #### L 9000.0800 ####[facility] [address] [place], [address] SO2 89 Low 95-99 [facility] Comment on above: Performed By: #### L 9000.0800 ####[facility] [address] [place], [address] Blood base excess determinat ionOrdered By: Sy Gr on 10-21-2024 Base excess Calc (BldV) [Moles/Vol] -6 mmol/L Low -2-2 [facility] Blood bicarbonate measuremen tOrdered By: Sy Gr on 10-21-2024 HCO3 (Bld) [Moles/Vol] 21.1 mmol/L Low 22-26 [facility] CO2 (BldV) [Moles/Vol]Ordere d By: Sy Gr on 10-21-2024 CO2 [Moles/Vol] 21 mmol/L Low 23-33 [facility] Chest 1 View (Portable)on Chest 1 View (Portable) Normal [facility] L503.7505on 10-21-2024 Natriuretic peptide B (Bld) [Mass/Vol] 527 pg/mL Normal <=900 [facility] Comment on above: Result Comment: Hear t Failure Unlikely: < 300 pg/mLHeart Failure Likely< 50 Years: > 450 pg/mL50-75 Years: > 900 pg/mL>75 Years: > 1800 pg/mL Performed By: #### L 503.1048 ####[facility] [address] [place], [address] Measurement, pHOrdered By: Nathaniel Gr on 10-21-2024 pH (Unsp spec) 7.29 [pH] Low 7.35-7.45 [facility] Natriuretic peptide.B prohor jesi N-Terminal [Mass/volume] in Serum or PlasmaOrdered By: Bharathi Saldana on 10-21-2024 Natriuretic peptide.B prohormone N-Terminal [Mass/Vol] 527 pg/mL <900 [facility] Comment on above: Heart Failure Unlike ly: < 300 pg/mLHeart Failure Likely< 50 Years: > 450 pg/mL50-75 Years: > 900 pg/mL>75 Years: > 1800 pg/mL No Panel InformationOrdered By: Sy Gr on 10-21-2024 Blood Gas Clinical Comments 06/04 [facility] Blood Gas Respiration Rate 14 [facility] Blood Gas Sample Site L Brach [facility] Blood Gas Specimen Type ART [facility] Blood Gas Vent Mode AC [facility] er [facility] Oxygen Delivery Device BiPAP [facility] Respiratory Cultureon 2024 RESPC Normal [facility] Comment on above: Performed By: #### M 100.2400, M100.2000 ####[facility] [address] [place], [address] Total carbon dioxide measure mentOrdered By: Sy Gr on 10-21-2024 CO2 [Moles/Vol] 22 mmol/L [facility] Venous Blood Gason Blood Gas Type NAEEM Normal [facility] Comment on above: Performed By: #### L 9000.0810 ####[facility] [address] [place], [address] CO2 [Moles/Vol] 21 mmol/L Low 23-33 [facility] Comment on above: Performed By: #### L 9000.0810 ####[facility] [address] [place], [address] HCO3 (Bld) [Moles/Vol] 20 mmol/L Low 22-26 [facility] Comment on above: Performed By: #### L 9000.0810 ####[facility] [address] [place], [address] O2 Delivery Dev Not entered Normal [facility] Comment on above: Performed By: #### L 900.0810 ####[facility] [address] [place], [address] SITE Not entered Normal [facility] Comment on above: Performed By: #### L 9000.0810 ####[facility] [address] [place], [address] VBG BE -7 mmol/L Low -1.0-3.5 [facility] Comment on above: Performed By: #### L 900.0810 ####[facility] [address] [place], [address] VBG pCO2 42.9 mmHg Normal 41-51 [facility] Comment on above: Performed By: #### L 9000.0810 ####[facility] [address] [place], [address] VBG pH 7.28 Low 7.32-7.42 [facility] Comment on above: Performed By: #### L 9000.0810 ####[facility] [address] [place], [address] VBG PO2 71 mmHg High 25-40 [facility] Comment on above: Performed By: #### L 9000.0810 ####[facility] [address] [place], [address] VBG SO2 92 High 50-70 [facility] Comment on above: Performed By: #### L 9000.0810 ####[facility] [address] [place], [place], [id number] Venous blood base excess giorgi surementOrdered By: Sy Gr on 10-21-2024 Base excess Calc (BldV) [Moles/Vol] -7 mmol/L Low -1.0-3.5 [facility] Venous blood bicarbonate giorgi surementOrdered By: Sy Gr on 10-21-2024 HCO3 (Bld) [Moles/Vol] 20 mmol/L Low 22-26 [facility] Venous blood oxygen saturati on measurementOrdered By: Sy Gr on 10-21-2024 Oxygen saturation in Blood 92 % High 50-70 [facility] Venous blood pH measurementO rdered By: Sy Gr on 10-21-2024 pH (BldV) 7.28 [pH] Low 7.32-7.42 [facility] Venous blood partial pressur e of carbon dioxide measurementOrdered By: Sy Gr on 10-21-2024 CO2 (BldV) [Partial pressure] 42.9 mm[Hg] 41-51 [facility] Venous blood partial pressur e of oxygen measurementOrdered By: Sy Gr on 10-21-2024 Oxygen (BldV) [Partial pressure] 71 mm[Hg] High 25-40 [facility] Absolute lymphocyte countOrd ered By: Bharathi Saldana on 10-20-2024 Lymphocytes Auto (Unsp spec) [#/Vol] 0.90 10*3/uL 0.83-4.51 [facility] Absolute neutrophil countOrd ered By: Bharathi Saldana on 10-20-2024 Neutrophils (Bld) [#/Vol] 9.4 10*3/uL High 2.0-7.7 [facility] Automated lymphocyte count a s percentage of total leukocytesOrdered By: Bharathi Saldana on 10-20-2024 Lymphocytes/100 WBC Auto (Unsp spec) 7.8 % Low 19-41 [facility] Basic Metabolic Profile (BMP )on 10-20-2024 BUN/CRE 44.4 RATIO High 10-20 [facility] Comment on above: Performed By: #### L 100.0100, L500.2500 ####[facility] [address] [place], [address] Calcium [Mass/Vol] 8.7 mg/dL Normal 7.6-11.0 [facility] Comment on above: Performed By: #### L 100.0100, L500.2500 ####[facility] [address] [place], [address] Chloride [Moles/Vol] 103 mmol/L Normal 98-108 [facility] Comment on above: Performed By: #### L 100.0100, L500.2500 ####[facility] [address] [place], [address] CO2 [Moles/Vol] 17.1 mmol/L Low 21.0-32.0 [facility] Comment on above: Performed By: #### L 100.0100, L500.2500 ####[facility] [address] [place], [address] Creatinine [Mass/Vol] 0.57 mg/dL Low 0.70-1.20 [facility] Comment on above: Performed By: #### L 100.0100, L500.2500 ####[facility] [address] [place], [address] ECRCL 113.59 ml/min Normal 50-250 [facility] Comment on above: Performed By: #### L 100.0100, L500.2500 ####[facility] [address] [place], [address] GAP 17 High 5-15 [facility] Comment on above: Performed By: #### L 100.0100, L500.2500 ####[facility] [address] [place], [address] GFR/1.73 sq M.predicted among non-blacks MDRD (S/P/Bld) [Vol rate/Area] 103 mL/min/{1.73_m2} Normal >60 [facility] Comment on above: Result Comment: mL/m in/1.73m2 CKD-EPI Creatinine Equation (2020) Performed By: #### L 100.0100, L500.2500 ####[facility] [address] [place], [address] Glucose [Mass/Vol] 172 mg/dL High 70-99 [facility] Comment on above: Performed By: #### L 100.0100, L500.2500 ####[facility] [address] [place], [address] Potassium [Moles/Vol] 4.0 mmol/L Normal 3.3-5.1 [facility] Comment on above: Performed By: #### L 100.0100, L500.2500 ####[facility] [address] [place], [address] Sodium [Moles/Vol] 136 mmol/L Normal 133-145 [facility] Comment on above: Performed By: #### L 100.0100, L500.2500 ####[facility] [address] [place], [address] Urea nitrogen [Mass/Vol] 25 mg/dL High 4-19 [facility] Comment on above: Performed By: #### L 100.0100, L500.2500 ####[facility] [address] [place], [address] Basophil percentageOrdered B y: Bharathi Saldana on 10-20-2024 Basophils/100 WBC (Bld) 0.3 % 0-1 [facility] Comment on above: Performed By: #### L 100.0100, L500.2500 ####[facility] [address] [place], [address] Bedside Glucoseon 10-20-2024 FINGERSTICK GLU 165 mg/dL High 74-106 [facility] Comment on above: Result Comment: SARA HURTADO OF PATIENT CARE PER NURSING PROTOCOL Performed By: #### L 501.080 ####[facility] [address] [place], [address] FINGERSTICK GLU 147 mg/dL High 74-106 [facility] Comment on above: Result Comment: SARA GEMENT OF PATIENT CARE PER NURSING PROTOCOL Performed By: #### L 501.080 ####[facility] [address] [place], [address] FINGERSTICK GLU 182 mg/dL High 74-106 [facility] Comment on above: Result Comment: SARA GEMENT OF PATIENT CARE PER NURSING PROTOCOL Performed By: #### L 501.080 ####[facility] [address] [place], [address] FINGERSTICK GLU 163 mg/dL High 74-106 [facility] Comment on above: Result Comment: SARA GEMENT OF PATIENT CARE PER NURSING PROTOCOL Performed By: #### L 501.080 ####[facility] [address] [place], [address] CBC W/Diff, Automatedon 04-2 5-2024 Absolute Lymph 0.90 X10 3/uL Normal 0.83-4.51 [facility] Comment on above: Performed By: #### L 100.0100, L500.2500 ####[facility] [address] [place], [address] Absolute Neut 9.4 X10 3/uL High 2.0-7.7 [facility] Comment on above: Performed By: #### L 100.0100, L500.2500 ####[facility] [address] [place], [address] Erythrocyte distribution width (RBC) [Ratio] 14.2 % Normal 11.6-14.6 [facility] Comment on above: Performed By: #### L 100.0100, L500.2500 ####[facility] [address] [place], [address] Hematocrit (Bld) [Volume fraction] 38.8 % Normal 37-47 [facility] Comment on above: Performed By: #### L 100.0100, L500.2500 ####[facility] [address] [place], [address] Hemoglobin (Bld) [Mass/Vol] 12.1 g/dL Normal 12.0-15.0 [facility] Comment on above: Performed By: #### L 100.0100, L500.2500 ####[facility] [address] [place], [address] IG% 0.600 Normal 0.0-0.9 [facility] Comment on above: Result Comment: IG% - Immature Granulocytes (promyelocytes, myelocytes andmetamyelocytes) > 1% indicates that a LEFT SHIFT is Present. Performed By: #### L 100.0100, L500.2500 ####[facility] [address] [place], [address] Lymphocytes/100 WBC (Bld) 7.8 % Low 19-41 [facility] Comment on above: Performed By: #### L 100.0100, L500.2500 ####[facility] [address] [place], [address] MCH (RBC) [Entitic mass] 28.5 pg Normal 27.0-32.0 [facility] Comment on above: Performed By: #### L 100.0100, L500.2500 ####[facility] [address] [place], [address] MCHC (RBC) [Mass/Vol] 31.2 g/dL Low 32-36 [facility] Comment on above: Performed By: #### L 100.0100, L500.2500 ####[facility] [address] [place], [address] MCV (RBC) [Entitic vol] 91.3 fL Normal 81-99 [facility] Comment on above: Performed By: #### L 100.0100, L500.2500 ####[facility] [address] [place], [address] Nucleated RBC (Bld) [#/Vol] 0 10*3/uL Normal 0-5 [facility] Comment on above: Performed By: #### L 100.0100, L500.2500 ####[facility] [address] [place], [address] Platelet mean volume (Bld) [Entitic vol] 10.0 fL Normal 6.2-12.0 [facility] Comment on above: Performed By: #### L 100.0100, L500.2500 ####[facility] [address] [place], [address] Platelets (Bld) [#/Vol] 171 10*3/uL Normal 150-450 [facility] Comment on above: Performed By: #### L 100.0100, L500.2500 ####[facility] [address] [place], [address] RBC (Bld) [#/Vol] 4.25 10*6/uL Normal 4.2-5.4 [facility] Comment on above: Performed By: #### L 100.0100, L500.2500 ####[facility] [address] [place], [address] RDW SD 47.8 fl High 35.1-43.9 [facility] Comment on above: Performed By: #### L 100.0100, L500.2500 ####[facility] [address] [place], [address] WBC (Bld) [#/Vol] 11.5 10*3/uL High 4.4-11.0 [facility] Comment on above: Performed By: #### L 100.0100, L500.2500 ####[facility] [address] [place], [address] Eosinophil percentageOrdered By: Bharathi Saldana on 10-20-2024 Eosinophils/100 WBC (Bld) 0.9 % 0-5 [facility] Comment on above: Performed By: #### L 100.0100, L500.2500 ####[facility] [address] [place], [address] Gram Stainon 10-20-2024 GS List Antibiotics to be Started? none Acceptable Specimen? Yes (<25 Epithelial cells per/lpf) Gram Stain 4+ Gram negative cocco bacillus 4+ White Blood Cells 1+ Gram positive cocci No Epithelial cells Normal [facility] Comment on above: Performed By: #### M 100.2400, M100.2000 ####[facility] [address] [place], [address] Gram stainOrdered By: Sy brown on 10-20-2024 Microscopic observation Gram stain Nom (Unsp spec) [facility] Immature granulocytes/100 WB C Auto (Bld)Ordered By: Bharathi Saldana on 10-20-2024 Immature granulocytes/100 WBC (Bld) 0.600 % 0.0-0.9 [facility] Comment on above: IG% - Immature Granu locytes (promyelocytes, myelocytes and metamyelocytes) > 1% indicates that a LEFT SHIFT is Present. Microbial respiratory cultur eOrdered By: Sy Gr on 10-20-2024 Microorganism identified Cx Nom (Unsp spec) Haemophilus influenzae Abnormal [facility] Monocyte percentageOrdered B y: Bharathi Saldana on 10-20-2024 Monocytes/100 WBC (Bld) 8.6 % 0-10 [facility] Comment on above: Performed By: #### L 100.0100, L500.2500 ####[facility] [address] [place], [address] Neutrophil percentageOrdered By: Bharathi Saldana on 10-20-2024 Neutrophils/100 WBC (Bld) 81.8 % High 47-70 [facility] Comment on above: Performed By: #### L 100.0100, L500.2500 ####[facility] [address] [place], [address] Nucleated red blood cell per centageOrdered By: Bharathi Saldana on 10-20-2024 Nucleated RBC/100 WBC (Bld) [Ratio] 0 % 0-5 [facility] Activated partial thrombopla stin time (aPTT) in platelet poor plasma by coagulation aOrdered By: Sy Gr on 10-19-2024 aPTT Coag (PPP) [Time] 40.1 s High 24.1-36.2 [facility] Bedside Glucoseon 10-19-2024 FINGERSTICK GLU 157 mg/dL High 74-106 [facility] Comment on above: Result Comment: SARA HURTADO OF PATIENT CARE PER NURSING PROTOCOL Performed By: #### L 501.080 ####[facility] [address] [place], [address] Bilirubin, totalOrdered By: Bharathi Saldana on 10-19-2024 Bilirubin [Mass/Vol] 0.37 mg/dL 0.00-1.30 [facility] Blood Gases by CPSon 025 IVANA TEST Positive Normal [facility] Comment on above: Performed By: #### L 9000.0800 ####[facility] [address] [place], [address] Base excess Calc (Bld) [Moles/Vol] -3 mmol/L Low -2 to +2 [facility] Comment on above: Performed By: #### L 9000.0800 ####[facility] [address] [place], [address] Blood Gas Type ART Normal [facility] Comment on above: Performed By: #### L 9000.0800 ####[facility] [address] [place], [address] CO2 [Moles/Vol] 23 mmol/L Normal [facility] Comment on above: Performed By: #### L 9000.0800 ####[facility] [address] [place], [address] FI02 10.0 Normal [facility] Comment on above: Performed By: #### L 0.0800 ####[facility] [address] [place], [address] HCO3 (Bld) [Moles/Vol] 21.8 mmol/L Low 22-26 [facility] Comment on above: Performed By: #### L 0.0800 ####[facility] [address] [place], [address] Mode Not entered Normal [facility] Comment on above: Performed By: #### L 0.0800 ####[facility] [address] [place], [address] O2 Delivery Dev Cannula Normal [facility] Comment on above: Performed By: #### L 0.0800 ####[facility] [address] [place], [address] pCO2 36.5 mmHg Normal 35-45 [facility] Comment on above: Performed By: #### L 9000.0800 ####[facility] [address] [place], [place], [address] pH (Bld) 7.38 [pH] Normal 7.35-7.45 [facility] Comment on above: Performed By: #### L 0.0800 ####[facility] [address] [place], [address] PO2 150 mmHG High 75-100 [facility] Comment on above: Performed By: #### L 9000.0800 ####[facility] [address] [place], [address] SITE R Radial Normal [facility] Comment on above: Performed By: #### L 9000.0800 ####[facility] [address] [place], [address] SO2 99 Normal 95-99 [facility] Comment on above: Performed By: #### L 0.0800 ####[facility] [address] [place], [address] Base excess Calc (Bld) [Moles/Vol] -2 mmol/L Normal -2 to +2 [facility] Comment on above: Performed By: #### L 8999.0800 ####[facility] [address] [place], [address] Blood Gas Type ART Normal [facility] Comment on above: Performed By: #### L 0.08 ####[facility] [address] [place], [address] CO2 [Moles/Vol] 25 mmol/L Normal [facility] Comment on above: Performed By: #### L 8999.0800 ####[facility] [address] [place], [address] FI02 5.0 Normal [facility] Comment on above: Performed By: #### L 0.0800 ####[facility] [address] [place], [address] HCO3 (Bld) [Moles/Vol] 23.7 mmol/L Normal 22-26 [facility] Comment on above: Performed By: #### L 0.0800 ####[facility] [address] [place], [address] Mode Not entered Normal [facility] Comment on above: Performed By: #### L 9000.0800 ####[facility] [address] [place], [address] O2 Delivery Dev Cannula Normal [facility] Comment on above: Performed By: #### L 0.0800 ####[facility] [address] [place], [address] pCO2 43.7 mmHg Normal 35-45 [facility] Comment on above: Performed By: #### L 9000.0800 ####[facility] [address] [place], [address] pH (Bld) 7.34 [pH] Low 7.35-7.45 [facility] Comment on above: Performed By: #### L 9000.0800 ####[facility] [address] [place], [address] PO2 57 mmHG Low 75-100 [facility] Comment on above: Performed By: #### L 9000.0800 ####[facility] [address] [place], [address] SITE L Brach Normal [facility] Comment on above: Performed By: #### L 0.0800 ####[facility] [address] [place], [address] SO2 87 Low 95-99 [facility] Comment on above: Performed By: #### L 9000.0800 ####[facility] [address] [place], [address] CBC W/Diff, Automatedon 04-2 Absolute Lymph 0.71 X10 3/uL Low 0.83-4.51 [facility] Comment on above: Performed By: #### L 501.5200, L501.9520, L501.2300, L100.0100, L500.4050 ####[facility] [address] [place], [address] Absolute Neut 10.6 X10 3/uL High 2.0-7.7 [facility] Comment on above: Performed By: #### L 501.5200, L501.9520, L501.2300, L100.0100, L500.4050 ####[facility] [address] [place], [address] Basophils/100 WBC (Bld) 0.5 % Normal 0-1 [facility] Comment on above: Performed By: #### L 501.5200, L501.9520, L501.2300, L100.0100, L500.4050 ####[facility] [address] [place], [address] Eosinophils/100 WBC (Bld) 0.8 % Normal 0-5 [facility] Comment on above: Performed By: #### L 501.5200, L501.9520, L501.2300, L100.0100, L500.4050 ####[facility] [address] [place], [address] Erythrocyte distribution width (RBC) [Ratio] 13.9 % Normal 11.6-14.6 [facility] Comment on above: Performed By: #### L 501.5200, L501.9520, L501.2300, L100.0100, L500.4050 ####[facility] [address] [place], [address] Hematocrit (Bld) [Volume fraction] 38.4 % Normal 37-47 [facility] Comment on above: Performed By: #### L 501.5200, L501.9520, L501.2300, L100.0100, L500.4050 ####[facility] [address] [place], [address] Hemoglobin (Bld) [Mass/Vol] 12.3 g/dL Normal 12.0-15.0 [facility] Comment on above: Performed By: #### L 501.5200, L501.9520, L501.2300, L100.0100, L500.4050 ####[facility] [address] [place], [address] IG% 0.500 Normal 0.0-0.9 [facility] Comment on above: Result Comment: IG% - Immature Granulocytes (promyelocytes, myelocytes andmetamyelocytes) > 1% indicates that a LEFT SHIFT is Present. Performed By: #### L 501.5200, L501.9520, L501.2300, L100.0100, L500.4050 ####[facility] [address] [place], [address] Lymphocytes/100 WBC (Bld) 5.7 % Low 19-41 [facility] Comment on above: Performed By: #### L 501.5200, L501.9520, L501.2300, L100.0100, L500.4050 ####[facility] [address] [place], [address] MCH (RBC) [Entitic mass] 28.5 pg Normal 27.0-32.0 [facility] Comment on above: Performed By: #### L 501.5200, L501.9520, L501.2300, L100.0100, L500.4050 ####[facility] [address] [place], [address] MCHC (RBC) [Mass/Vol] 32.0 g/dL Normal 32-36 [facility] Comment on above: Performed By: #### L 501.5200, L501.9520, L501.2300, L100.0100, L500.4050 ####[facility] [address] [place], [address] MCV (RBC) [Entitic vol] 89.1 fL Normal 81-99 [facility] Comment on above: Performed By: #### L 501.5200, L501.9520, L501.2300, L100.0100, L500.4050 ####[facility] [address] [place], [address] Monocytes/100 WBC (Bld) 7.4 % Normal 0-10 [facility] Comment on above: Performed By: #### L 501.5200, L501.9520, L501.2300, L100.0100, L500.4050 ####[facility] [address] [place], [address] Neutrophils/100 WBC (Bld) 85.1 % High 47-70 [facility] Comment on above: Performed By: #### L 501.5200, L501.9520, L501.2300, L100.0100, L500.4050 ####[facility] [address] [place], [address] Nucleated RBC (Bld) [#/Vol] 0 10*3/uL Normal 0-5 [facility] Comment on above: Performed By: #### L 501.5200, L501.9520, L501.2300, L100.0100, L500.4050 ####[facility] [address] [place], [address] Platelet mean volume (Bld) [Entitic vol] 9.8 fL Normal 6.2-12.0 [facility] Comment on above: Performed By: #### L 501.5200, L501.9520, L501.2300, L100.0100, L500.4050 ####[facility] [address] [place], [address] Platelets (Bld) [#/Vol] 159 10*3/uL Normal 150-450 [facility] Comment on above: Performed By: #### L 501.5200, L501.9520, L501.2300, L100.0100, L500.4050 ####[facility] [address] [place], [address] RBC (Bld) [#/Vol] 4.31 10*6/uL Normal 4.2-5.4 [facility] Comment on above: Performed By: #### L 501.5200, L501.9520, L501.2300, L100.0100, L500.4050 ####[facility] [address] [place], [address] RDW SD 45.5 fl High 35.1-43.9 [facility] Comment on above: Performed By: #### L 501.5200, L501.9520, L501.2300, L100.0100, L500.4050 ####[facility] [address] [place], [address] WBC (Bld) [#/Vol] 12.5 10*3/uL High 4.4-11.0 [facility] Comment on above: Performed By: #### L 501.5200, L501.9520, L501.2300, L100.0100, L500.4050 ####[facility] [address] [place], [address] Comprehensive Metabolic Prof flon 10-19-2024 Albumin [Mass/Vol] 3.0 g/dL Low 3.4-4.8 [facility] Comment on above: Performed By: #### L 501.5200, L501.9520, L501.2300, L100.0100, L500.4050 ####[facility] [address] [place], [address] Albumin/Globulin [Mass ratio] 0.8 {ratio} Low 0.9-2.4 [facility] Comment on above: Performed By: #### L 501.5200, L501.9520, L501.2300, L100.0100, L500.4050 ####[facility] [address] [place], [address] ALK PHOS 77 U/L Normal 35-104 [facility] Comment on above: Performed By: #### L 501.5200, L501.9520, L501.2300, L100.0100, L500.4050 ####[facility] [address] [place], [address] ALT [Catalytic activity/Vol] 8 U/L Normal <=34 [facility] Comment on above: Performed By: #### L 501.5200, L501.9520, L501.2300, L100.0100, L500.4050 ####[facility] [address] [place], [address] AST [Catalytic activity/Vol] 11 U/L Normal <=31 [facility] Comment on above: Performed By: #### L 501.5200, L501.9520, L501.2300, L100.0100, L500.4050 ####[facility] [address] [place], [address] Bilirubin [Mass/Vol] 0.37 mg/dL Normal 0.00-1.30 [facility] Comment on above: Performed By: #### L 501.5200, L501.9520, L501.2300, L100.0100, L500.4050 ####[facility] [address] [place], [address] BUN/CRE 23.7 RATIO High 10-20 [facility] Comment on above: Performed By: #### L 501.5200, L501.9520, L501.2300, L100.0100, L500.4050 ####[facility] [address] [place], [address] Calcium [Mass/Vol] 8.6 mg/dL Normal 7.6-11.0 [facility] Comment on above: Performed By: #### L 501.5200, L501.9520, L501.2300, L100.0100, L500.4050 ####[facility] [address] [place], [address] Chloride [Moles/Vol] 105 mmol/L Normal 98-108 [facility] Comment on above: Performed By: #### L 501.5200, L501.9520, L501.2300, L100.0100, L500.4050 ####[facility] [address] [place], [address] CO2 [Moles/Vol] 20.6 mmol/L Low 21.0-32.0 [facility] Comment on above: Performed By: #### L 501.5200, L501.9520, L501.2300, L100.0100, L500.4050 ####[facility] [address] [place], [address] Creatinine [Mass/Vol] 0.65 mg/dL Low 0.70-1.20 [facility] Comment on above: Performed By: #### L 501.5200, L501.9520, L501.2300, L100.0100, L500.4050 ####[facility] [address] [place], [address] ECRCL 99.61 ml/min Normal 50-250 [facility] Comment on above: Performed By: #### L 501.5200, L501.9520, L501.2300, L100.0100, L500.4050 ####[facility] [address] [place], [address] GAP 13 Normal 5-15 [facility] Comment on above: Performed By: #### L 501.5200, L501.9520, L501.2300, L100.0100, L500.4050 ####[facility] [address] [place], [address] GFR/1.73 sq M.predicted among non-blacks MDRD (S/P/Bld) [Vol rate/Area] 100 mL/min/{1.73_m2} Normal >60 [facility] Comment on above: Result Comment: mL/m in/1.73m2 CKD-EPI Creatinine Equation (2020) Performed By: #### L 501.5200, L501.9520, L501.2300, L100.0100, L500.4050 ####[facility] [address] [place], [address] Globulin (S) [Mass/Vol] 3.8 g/dL Normal 2.2-4.2 [facility] Comment on above: Performed By: #### L 501.5200, L501.9520, L501.2300, L100.0100, L500.4050 ####[facility] [address] [place], [address] Glucose [Mass/Vol] 242 mg/dL High 70-99 [facility] Comment on above: Performed By: #### L 501.5200, L501.9520, L501.2300, L100.0100, L500.4050 ####[facility] [address] [place], [address] Potassium [Moles/Vol] 3.6 mmol/L Normal 3.3-5.1 [facility] Comment on above: Performed By: #### L 501.5200, L501.9520, L501.2300, L100.0100, L500.4050 ####[facility] [address] [place], [address] Sodium [Moles/Vol] 139 mmol/L Normal 133-145 [facility] Comment on above: Performed By: #### L 501.5200, L501.9520, L501.2300, L100.0100, L500.4050 ####[facility] [address] [place], [address] T PROT 6.8 g/dL Normal 5.9-8.4 [facility] Comment on above: Performed By: #### L 501.5200, L501.9520, L501.2300, L100.0100, L500.4050 ####[facility] [address] [place], [address] Urea nitrogen [Mass/Vol] 15 mg/dL Normal 4-19 [facility] Comment on above: Performed By: #### L 501.5200, L501.9520, L501.2300, L100.0100, L500.4050 ####[facility] [address] [place], [address] Consultation - Surgicalon Consultation - Surgical Normal [facility] Echo Complete W/ Contraston 10-19-2024 Echo Complete W/ Contrast Normal [facility] Free T3on 10-19-2024 Free T3 [Mass/Vol] 1.9 pg/mL Low 2.18-3.98 [facility] Comment on above: Performed By: #### L 506.0400, L501.16976 ####[facility] [address] [place], [address] Free G2Syyknuc By: Bharathi jeffries on 10-19-2024 Free T3 [Mass/Vol] 1.9 pg/mL Low 2.18-3.98 [facility] L503.7505on 10-19-2024 Natriuretic peptide B (Bld) [Mass/Vol] 317 pg/mL Normal <=900 [facility] Comment on above: Result Comment: Hear t Failure Unlikely: < 300 pg/mLHeart Failure Likely< 50 Years: > 450 pg/mL50-75 Years: > 900 pg/mL>75 Years: > 1800 pg/mL Performed By: #### L 503.7505 ####[facility] [address] [place], [address] Laboratory - Chemistry and C hemistry - challengeOrdered By: Bharathi Saldana on 10-19-2024 AST [Catalytic activity/Vol] 11 U/L <32 [facility] Magnesiumon 10-19-2024 Magnesium [Mass/Vol] 1.7 mg/dL Normal 1.5-2.2 [facility] Comment on above: Performed By: #### L 501.5200, L501.9520, L501.2300, L100.0100, L500.4050 ####[facility] [address] [place], [address] Magnesium measurement (mass/ volume)Ordered By: Bharathi Saldana on 10-19-2024 Magnesium (Unsp spec) [Mass/Vol] 1.7 mg/dL 1.5-2.2 [facility] Partial Thromboplast Timeon 10-19-2024 aPTT Coag (Bld) [Time] 40.1 s High 24.1-36.2 [facility] Comment on above: Order Comment: Comme nts: heparin drip Performed By: #### L 300.4310 ####[facility] [address] [place], [address] aPTT Coag (Bld) [Time] 45.2 s High 24.1-36.2 [facility] Comment on above: Performed By: #### L 300.4310 ####[facility] [address] [place], [address] aPTT Coag (Bld) [Time] 40.2 s High 24.1-36.2 [facility] Comment on above: Performed By: #### L 300.4310 ####[facility] [address] [place], [address] Phosphoruson 10-19-2024 Phosphate [Mass/Vol] 3.2 mg/dL Normal 2.7-4.5 [facility] Comment on above: Performed By: #### L 501.5200, L501.9520, L501.2300, L100.0100, L500.4050 ####[facility] [address] [place], [place], [id number] Serum globulin measurementOr dered By: Bharathi Saldana on 10-19-2024 Globulin (S) [Mass/Vol] 3.8 g/dL 2.2-4.2 [facility] Serum or plasma alanine smith otransferase (ALT) measurementOrdered By: Bharathi Saldana on 10-19-2024 ALT [Catalytic activity/Vol] 8 U/L <35 [facility] Serum or plasma albumin jasiel urement (mass/volume)Ordered By: Bharathi Saldana on 10-19-2024 Albumin [Mass/Vol] 3.0 g/dL Low 3.4-4.8 [facility] Serum or plasma albumin/glob ulin mass ratioOrdered By: Bharathi Saldana on 10-19-2024 Albumin/Globulin [Mass ratio] 0.8 {ratio} Low 0.9-2.4 [facility] Serum or plasma alkaline quintin sphatase measurementOrdered By: Bharathi Saldana on 10-19-2024 ALP [Catalytic activity/Vol] 77 U/L 35-104 [facility] T4 Free Directon 10-19-2024 T4 FREE DIRECT 1.50 ng/dL High 0.76-1.46 [facility] Comment on above: Performed By: #### L 506.0400, L501.81236 ####[facility] [address] [place], [place], [id number] T4 freeOrdered By: Bharathi jeffries on 10-19-2024 Free T4 [Mass/Vol] 1.50 ng/dL High 0.76-1.46 [facility] TSH DL <= 0.005 mIU/L QnOrde red By: Bharathi Saldana on 10-19-2024 TSH Qn 0.106 uIU/mL Low 0.300-4.20 0 [facility] Thyroid Stim Hormone (TSH)on 10-19-2024 TSH 0.106 uIU/mL Low 0.300-4.20 0 [facility] Comment on above: Performed By: #### L 501.5200, L501.9520, L501.2300, L100.0100, L500.4050 ####[facility] [address] [place], [place], [address] Total proteinOrdered By: Hosea wiggins Les on 10-19-2024 Protein [Mass/Vol] 6.8 g/dL 5.9-8.4 [facility] Venous Duplex US - Mario Extre mon 10-19-2024 Venous Duplex US - Mario Extrem Normal [facility] Absolute neutrophil countOrd ered By: ED PROVIDER on 10-18-2024 Neutrophils (Bld) [#/Vol] 9.3 10*3/uL High 2.0-7.7 [facility] Anion gap in Serum or Plasma Ordered By: Kyler Hay on 10-18-2024 Anion gap [Moles/Vol] 15 mmol/L 5-15 [facility] Assessment of wrist artery p atency prior to arterial punctureOrdered By: Kyler Hay on 10-18-2024 Ivana Test Positive Normal [facility] Comment on above: Performed By: #### L 9000.0800 ####[facility] [address] [place], [place], [address] BUN/creatinine ratioOrdered By: Kyler Hay on 10-18-2024 Urea nitrogen/Creatinine [Mass ratio] 23.5 mg/mg High 10-20 [facility] Base excess Calc (BldV) [Mol es/Vol]Ordered By: Kyler Hay on 10-18-2024 Blood Gas Base Excess -2 mmol/L -2-2 [facility] Basophil percentageOrdered B y: ED PROVIDER on 10-18-2024 Basophils/100 WBC (Bld) 0.7 % 0-1 [facility] Bilirubin, totalOrdered By: Kyler Hay on 10-18-2024 Bilirubin [Mass/Vol] 0.56 mg/dL 0.00-1.30 [facility] Blood bicarbonate measuremen tOrdered By: Kyler Hay on 10-18-2024 Blood Gas Bicarbonate Actual 23.7 mmol/L [facility] CBC W/Diff, Automatedon 09-27 Absolute Lymph 1.28 X10 3/uL Normal 0.83-4.51 [facility] Comment on above: Performed By: #### L 501.2450, L500.4050, L100.0100 ####[facility] [address] [place], [address] Absolute Neut 9.3 X10 3/uL High 2.0-7.7 [facility] Comment on above: Performed By: #### L 501.2450, L500.4050, L100.0100 ####[facility] [address] [place], [address] Basophils/100 WBC (Bld) 0.7 % Normal 0-1 [facility] Comment on above: Performed By: #### L 501.2450, L500.4050, L100.0100 ####[facility] [address] [place], [address] Eosinophils/100 WBC (Bld) 0.8 % Normal 0-5 [facility] Comment on above: Performed By: #### L 501.2450, L500.4050, L100.0100 ####[facility] [address] [place], [address] Erythrocyte distribution width (RBC) [Ratio] 13.9 % Normal 11.6-14.6 [facility] Comment on above: Performed By: #### L 501.2450, L500.4050, L100.0100 ####[facility] [address] [place], [address] Hematocrit (Bld) [Volume fraction] 43.4 % Normal 37-47 [facility] Comment on above: Performed By: #### L 501.2450, L500.4050, L100.0100 ####[facility] [address] [place], [address] Hemoglobin (Bld) [Mass/Vol] 14.1 g/dL Normal 12.0-15.0 [facility] Comment on above: Performed By: #### L 501.2450, L500.4050, L100.0100 ####[facility] [address] [place], [address] IG% 0.300 Normal 0.0-0.9 [facility] Comment on above: Result Comment: IG% - Immature Granulocytes (promyelocytes, myelocytes andmetamyelocytes) > 1% indicates that a LEFT SHIFT is Present. Performed By: #### L 501.2450, L500.4050, L100.0100 ####[facility] [address] [place], [address] Lymphocytes/100 WBC (Bld) 11.1 % Low 19-41 [facility] Comment on above: Performed By: #### L 501.2450, L500.4050, L100.0100 ####[facility] [address] [place], [address] MCH (RBC) [Entitic mass] 28.8 pg Normal 27.0-32.0 [facility] Comment on above: Performed By: #### L 501.2450, L500.4050, L100.0100 ####[facility] [address] [place], [address] MCHC (RBC) [Mass/Vol] 32.5 g/dL Normal 32-36 [facility] Comment on above: Performed By: #### L 501.2450, L500.4050, L100.0100 ####[facility] [address] [place], [address] MCV (RBC) [Entitic vol] 88.8 fL Normal 81-99 [facility] Comment on above: Performed By: #### L 501.2450, L500.4050, L100.0100 ####[facility] [address] [place], [address] Monocytes/100 WBC (Bld) 6.9 % Normal 0-10 [facility] Comment on above: Performed By: #### L 501.2450, L500.4050, L100.0100 ####[facility] [address] [place], [address] Neutrophils/100 WBC (Bld) 80.2 % High 47-70 [facility] [facility] Comment on above: Performed By: #### L 501.2450, L500.4050, L100.0100 ####[facility] [address] [place], [address] Nucleated RBC (Bld) [#/Vol] 0 10*3/uL Normal 0-5 [facility] Comment on above: Performed By: #### L 501.2450, L500.4050, L100.0100 ####[facility] [address] [place], [address] Platelet mean volume (Bld) [Entitic vol] 9.8 fL Normal 6.2-12.0 [facility] Comment on above: Performed By: #### L 501.2450, L500.4050, L100.0100 ####[facility] [address] [place], [address] Platelets (Bld) [#/Vol] 186 10*3/uL Normal 150-450 [facility] Comment on above: Performed By: #### L 501.2450, L500.4050, L100.0100 ####[facility] [address] [place], [address] RBC (Bld) [#/Vol] 4.89 10*6/uL Normal 4.2-5.4 [facility] Comment on above: Performed By: #### L 501.2450, L500.4050, L100.0100 ####[facility] [address] [place], [address] RDW SD 45.1 fl High 35.1-43.9 [facility] Comment on above: Performed By: #### L 501.2450, L500.4050, L100.0100 ####[facility] [address] [place], [address] WBC (Bld) [#/Vol] 11.5 10*3/uL High 4.4-11.0 [facility] Comment on above: Performed By: #### L 501.2450, L500.4050, L100.0100 ####[facility] [address] [place], [address] CTA Chest W/WO Contraston CTA Chest W/WO Contrast Normal [facility] Carbon dioxide, total [Moles /volume] in Central venous bloodOrdered By: Kyler Hay on 10-18-2024 CO2 [Moles/Vol] 21.3 mmol/L 21.0-32.0 [facility] Chest PA and Lateralon 10-18 Chest PA and Lateral Normal [facility] Chloride assayOrdered By: Karri Hay on 10-18-2024 Chloride [Moles/Vol] 102 mmol/L 98-108 [facility] Comprehensive Metabolic Prof ilon 10-18-2024 Albumin [Mass/Vol] 3.9 g/dL Normal 3.4-4.8 [facility] Comment on above: Performed By: #### L 501.2450, L500.4050, L100.0100 ####[facility] [address] [place], [address] Albumin/Globulin [Mass ratio] 1.0 {ratio} Normal 0.9-2.4 [facility] Comment on above: Performed By: #### L 501.2450, L500.4050, L100.0100 ####[facility] [address] [place], [address] ALK PHOS 99 U/L Normal 35-104 [facility] Comment on above: Performed By: #### L 501.2450, L500.4050, L100.0100 ####[facility] [address] [place], [address] ALT [Catalytic activity/Vol] 10 U/L Normal <=34 [facility] Comment on above: Performed By: #### L 501.2450, L500.4050, L100.0100 ####[facility] [address] [place], [address] AST [Catalytic activity/Vol] 18 U/L Normal <=31 [facility] Comment on above: Result Comment: Hemo lysis present, Results??could be affected.?? Performed By: #### L 501.2450, L500.4050, L100.0100 ####[facility] [address] [place], [address] Bilirubin [Mass/Vol] 0.56 mg/dL Normal 0.00-1.30 [facility] Comment on above: Performed By: #### L 501.2450, L500.4050, L100.0100 ####[facility] [address] [place], [address] BUN/CRE 23.5 RATIO High 10-20 [facility] Comment on above: Performed By: #### L 501.2450, L500.4050, L100.0100 ####[facility] [address] [place], [address] Calcium [Mass/Vol] 9.5 mg/dL Normal 7.6-11.0 [facility] Comment on above: Performed By: #### L 501.2450, L500.4050, L100.0100 ####[facility] [address] [place], [address] Chloride [Moles/Vol] 102 mmol/L Normal 98-108 [facility] Comment on above: Performed By: #### L 501.2450, L500.4050, L100.0100 ####[facility] [address] [place], [address] CO2 [Moles/Vol] 21.3 mmol/L Normal 21.0-32.0 [facility] Comment on above: Performed By: #### L 501.2450, L500.4050, L100.0100 ####[facility] [address] [place], [address] Creatinine [Mass/Vol] 0.75 mg/dL Normal 0.70-1.20 [facility] Comment on above: Performed By: #### L 501.2450, L500.4050, L100.0100 ####[facility] [address] [place], [address] ECRCL 92.12 ml/min Normal 50-250 [facility] Comment on above: Performed By: #### L 501.2450, L500.4050, L100.0100 ####[facility] [address] [place], [address] GAP 15 Normal 5-15 [facility] Comment on above: Performed By: #### L 501.2450, L500.4050, L100.0100 ####[facility] [address] [place], [address] GFR/1.73 sq M.predicted among non-blacks MDRD (S/P/Bld) [Vol rate/Area] 90 mL/min/{1.73_m2} Normal >60 [facility] Comment on above: Result Comment: mL/m in/1.73m2 CKD-EPI Creatinine Equation (2020) Performed By: #### L 501.2450, L500.4050, L100.0100 ####[facility] [address] [place], [address] Globulin (S) [Mass/Vol] 3.9 g/dL Normal 2.2-4.2 [facility] Comment on above: Performed By: #### L 501.2450, L500.4050, L100.0100 ####[facility] [address] [place], [address] Glucose [Mass/Vol] 224 mg/dL High 70-99 [facility] Comment on above: Performed By: #### L 501.2450, L500.4050, L100.0100 ####[facility] [address] [place], [address] Potassium [Moles/Vol] 4.0 mmol/L Normal 3.3-5.1 [facility] Comment on above: Result Comment: Hemo lysis present, Results??could be affected.?? Performed By: #### L 501.2450, L500.4050, L100.0100 ####[facility] [address] [place], [address] Sodium [Moles/Vol] 139 mmol/L Normal 133-145 [facility] Comment on above: Performed By: #### L 501.2450, L500.4050, L100.0100 ####[facility] [address] [place], [address] T PROT 7.7 g/dL Normal 5.9-8.4 [facility] Comment on above: Performed By: #### L 501.2450, L500.4050, L100.0100 ####[facility] [address] [place], [address] Urea nitrogen [Mass/Vol] 18 mg/dL Normal 4-19 [facility] Comment on above: Performed By: #### L 501.2450, L500.4050, L100.0100 ####[facility] [address] [place], [place], [address] D-Dimer Quantitative (DVT/PE )on 10-18-2024 D-DIMER QUANT 2.69 FEU/ug/m Invalid Interpretation Code 0.27-0.49 [facility] Comment on above: Result Comment: D-Di ok ELEVATED (>0.49): Additional studies and clinicalassessments are indicated to conclude diagnosis of:Deep Vein Thrombosis (DVT) or Pulmonary Embolism (PE)CRITICAL VALUE CALLED TO 2017 Alexey Saenz.RESULTS READ BACK BY SAME. Performed By: #### L 300.8000 ####[facility] [address] [place], [place], [id number] D-dimer measurement for deep venous thrombosisOrdered By: Kyler Hay on 10-18-2024 D-Dimer Quantitative (PE/DVT) 2.69 FEU/ug/m High 0.27-0.49 [facility] Comment on above: D-Dimer ELEVATED (>0 .49): Additional studies and clinicalassessments are indicated to conclude diagnosis of:Deep Vein Thrombosis (DVT) or Pulmonary Embolism (PE)CRITICAL VALUE CALLED TO 2017 Alexey Saenz.RESULTS READ BACK BY SAME. Determination of fraction of inspired oxygenOrdered By: Kyler Hay on 10-18-2024 Blood Gas Oxygen Percent 5.0 [facility] Emergency Department Summary on 10-18-2024 Emergency Department Summary Normal [facility] Eosinophil percentageOrdered By: ED PROVIDER on 10-18-2024 Eosinophils/100 WBC (Bld) 0.8 % 0-5 [facility] Erythrocyte distribution wid th (RBC) [Ratio]Ordered By: ED PROVIDER on 10-18-2024 Erythrocyte distribution width (RBC) [Entitic vol] 45.1 fL High 35.1-43.9 [facility] Erythrocyte distribution wid th ratioOrdered By: ED PROVIDER on 10-18-2024 Erythrocyte distribution width (RBC) [Ratio] 13.9 % 11.6-14.6 [facility] Estimation of creatinine kristan aranceOrdered By: Kyler Hay on 10-18-2024 Estimated Creatinine Clearance Calc 92.12 ml/min 50-250 [facility] GFR/1.73 sq M.predicted marcelina g non-blacks MDRD (S/P/Bld) [Vol rate/Area]Ordered By: Kyler Hay on 10-18-2024 Estimated GFR (MDRD) Non-Af Amer 90 >60 [facility] Comment on above: mL/min/1.73m2 CKD-EP I Creatinine Equation (2020) H AND P Exam - Hospital[place] 10-18-2024 H&P Exam - Hospitalist Normal [facility] Hematocrit Auto (Bld) [Volum e fraction]Ordered By: ED PROVIDER on 10-18-2024 Hematocrit (Bld) [Volume fraction] 43.4 % 37-47 [facility] Hemoglobin measurementOrdere d By: ED PROVIDER on 10-18-2024 Hemoglobin (Bld) [Mass/Vol] 14.1 g/dL 12.0-15.0 [facility] Immature granulocytes/100 WB C Auto (Bld)Ordered By: ED PROVIDER on 10-18-2024 Immature granulocytes/100 WBC (Bld) 0.300 % 0.0-0.9 [facility] Comment on above: IG% - Immature Granu locytes (promyelocytes, myelocytes and metamyelocytes) > 1% indicates that a LEFT SHIFT is Present. Influenza virus A and B and SARS-CoV-2 (COVID-19) and Respiratory syncytial virus RNAOrdered By: Kyler Hay on 10-18-2024 SARS-CoV-2 (COVID-19) RNA JADEN+probe Ql (Unsp spec) [facility] International normalized rat io (INR) calculationOrdered By: Kylerjustin Hay on 10-18-2024 INR Coag (Bld) [Relative time] 1.0 {INR} [facility] L499.0042on 10-18-2024 Trop T High Sen 8 ng/L Normal <=14 [facility] Comment on above: Performed By: #### L 499.0042 ####[facility] [address] [place], [address] L501.4021on 10-18-2024 Trop T High Sen 9 ng/L Normal <=14 [facility] Comment on above: Performed By: #### L 501.4021 ####[facility] [address] [place], [place], [id number] Laboratory - Chemistry and C hemistry - challengeOrdered By: Kylerjustin MariaJean Paul on 10-18-2024 AST [Catalytic activity/Vol] 18 U/L <32 [facility] Comment on above: Hemolysis present, R esults could be affected. Lipaseon 10-18-2024 Lipase [Catalytic activity/Vol] 16 U/L Normal 13-75 [facility] Comment on above: Result Comment: Plea se note:LIPASE revised reference range effective 22.New Lipase methodology. Expected to produce lower valuesthan the previous assay method.NEW Reference Range: 13 - 75 U/L Performed By: #### L 501.2450, L500.4050, L100.0100 ####[facility] [address] [place], [place], [id number] Lipase measurementOrdered By : [facility]loria[facility] Paul on 10-18-2024 Lipase [Catalytic activity/Vol] 16 U/L 13-75 [facility] Comment on above: Please note:LIPASE r evised reference range effective 22. New Lipase methodology. Expected to produce lower values than the previous assay method. NEW Reference Range: 13 - 75 U/L Lymphocytes Auto (Unsp spec) [#/Vol]Ordered By: ED PROVIDER on 10-18-2024 Lymphocytes (Bld) [#/Vol] 1.28 10*3/uL 0.83-4.51 [facility] Lymphocytes/100 WBC Auto (Un sp spec)Ordered By: ED PROVIDER on 10-18-2024 Lymphocytes/100 WBC (Bld) 11.1 % Low 19-41 [facility] M100.678on 10-18-2024 M100.678 Pending SARS-CoV-2 (COVID 19) Negative INFLUENZA A Negative INFLUENZA B Negative RSV PCR Negative Normal [facility] Comment on above: Performed By: #### M 100.678 ####[facility] [address] [place], [address] MCV (mean corpuscular volume ) determinationOrdered By: ED PROVIDER on 10-18-2024 MCV (RBC) [Entitic vol] 88.8 fL 81-99 [facility] Mean corpuscular hemoglobin (MCH) determinationOrdered By: ED PROVIDER on 10-18-2024 MCH (RBC) [Entitic mass] 28.8 pg 27.0-32.0 [facility] Mean corpuscular hemoglobin concentration (MCHC) determinationOrdered By: ED PROVIDER on 10-18-2024 MCHC (RBC) [Mass/Vol] 32.5 g/dL 32-36 [facility] Mean platelet volume determi nationOrdered By: ED PROVIDER on 10-18-2024 Platelet mean volume (Bld) [Entitic vol] 9.8 fL 6.2-12.0 [facility] Monocyte percentageOrdered B y: ED PROVIDER on 10-18-2024 Monocytes/100 WBC (Bld) 6.9 % 0-10 [facility] Neutrophil percentageOrdered By: ED PROVIDER on 10-18-2024 Neutrophils/100 WBC (Bld) 80.2 % High 47-70 [facility] No Panel InformationOrdered By: Kyler Hay on 10-18-2024 Blood Gas Sample Site L Brach [facility] Blood Gas Specimen Type ART [facility] Blood Gas Vent Mode Not entered [facility] Oxygen Delivery Device Cannula [facility] Nucleated red blood cell per centageOrdered By: ED PROVIDER on 10-18-2024 Nucleated RBC/100 WBC (Bld) [Ratio] 0 % 0-5 [facility] Oxygen saturation measuremen tOrdered By: Kyler Hay on 10-18-2024 Blood Gas Oxygen Saturation 87 % Low 95-99 [facility] Partial Thromboplast Timeon 10-18-2024 aPTT Coag (Bld) [Time] 24.8 s Normal 24.1-36.2 [facility] Comment on above: Performed By: #### L 300.8103, L332.2141 ####[facility] [address] [place], [place], [id number] Partial pressure of carbon d ioxide measurementOrdered By: Kyler Hay on 10-18-2024 Arterial Blood Partial Pressure CO2 43.7 mmHg 35-45 [facility] Partial pressure of oxygen m easurementOrdered By: Kyler Hay on 10-18-2024 Arterial Blood Partial Pressure O2 57 mmHG Low 75-100 [facility] Platelet countOrdered By: ED PROVIDER on 10-18-2024 Platelets (Bld) [#/Vol] 186 10*3/uL 150-450 [facility] Potassium (Unsp spec) [Mass/ Vol]Ordered By: Kyler Hay on 10-18-2024 Potassium [Moles/Vol] 4.0 mmol/L 3.3-5.1 [facility] Comment on above: Hemolysis present, R esults could be affected. Prothrombin Time w/INRon INR Coag (PPP) [Relative time] 1.0 {INR} Normal [facility] Comment on above: Performed By: #### L 300.3900, L300.4310 ####[facility] [address] [place], [place], [id number] PT Coag (PPP) [Time] 13.2 s Normal 11.7-14.9 [facility] Comment on above: Performed By: #### L 300.3900, L300.4310 ####[facility] [address] [place], [place], [id number] Prothrombin timeOrdered By: Kyler Hay on 10-18-2024 PT Coag (PPP) [Time] 13.2 s 11.7-14.9 [facility] RBC Auto (Bld) [#/Vol]Ordere d By: ED PROVIDER on 10-18-2024 RBC (Bld) [#/Vol] 4.89 10*6/uL 4.2-5.4 [facility] Serum creatinine measurement (mass/volume)Ordered By: Kyler Hay on 10-18-2024 Creatinine [Mass/Vol] 0.75 mg/dL 0.70-1.20 [facility] Serum globulin measurementOr dered By: Kyler Hay on 10-18-2024 Globulin (S) [Mass/Vol] 3.9 g/dL 2.2-4.2 [facility] Serum glucose measurement (m ass/volume)Ordered By: Kyler Hay on 10-18-2024 Glucose [Mass/Vol] 224 mg/dL High 70-99 [facility] Serum or plasma alanine smith otransferase (ALT) measurementOrdered By: Kyler Hay on 10-18-2024 ALT [Catalytic activity/Vol] 10 U/L <35 [facility] Serum or plasma albumin jasiel urement (mass/volume)Ordered By: Kyler Reaves on 10-18-2024 Albumin [Mass/Vol] 3.9 g/dL 3.4-4.8 [facility] Serum or plasma albumin/glob ulin mass ratioOrdered By: Kyler Hay on 10-18-2024 Albumin/Globulin [Mass ratio] 1.0 {ratio} 0.9-2.4 [facility] Serum or plasma alkaline quintin sphatase measurementOrdered By: Kyler Hay on 10-18-2024 ALP [Catalytic activity/Vol] 99 U/L 35-104 [facility] Serum or plasma calcium jasiel urement (mass/volume)Ordered By: Kyler Reaves on 10-18-2024 Calcium [Mass/Vol] 9.5 mg/dL 7.6-11.0 [facility] Serum or plasma urea nitroge n measurement (mass/volume)Ordered By: Kyler Hay on 10-18-2024 Urea nitrogen [Mass/Vol] 18 mg/dL 4-19 [facility] Sodium levelOrdered By: Cresencio Hay on 10-18-2024 Sodium [Moles/Vol] 139 mmol/L 133-145 [facility] Total carbon dioxide measure mentOrdered By: Kyler Hay on 10-18-2024 Blood Gas Total CO2 25 mmol/L [facility] Total proteinOrdered By: Bossman Hay on 10-18-2024 Protein [Mass/Vol] 7.7 g/dL 5.9-8.4 [facility] Troponin T.cardiac High sens itivity method [Mass/Vol]Ordered By: Kyler Reaves on 10-18-2024 Troponin T High Sensitivity 2 Hour 8 ng/L <14 [facility] Troponin T High Sensitivity 9 ng/L <14 [facility] Troponin T.cardiac [Mass/vol ume] in Serum or Plasma by High sensitivity methodOrdered By: Kyler Hay on 10-18-2024 Troponin T.cardiac High sensitivity method [Mass/Vol] 8 ng/L <14 [facility] Troponin T.cardiac High sensitivity method [Mass/Vol] 9 ng/L <14 [facility] White blood cell (WBC) count Ordered By: ED PROVIDER on 10-18-2024 WBC (Bld) [#/Vol] 11.5 10*3/uL High 4.4-11.0 [facility] aPTT Coag (PPP) [Time]Ordere d By: Kyler Hay on 10-18-2024 aPTT Coag (Bld) [Time] 24.8 s 24.1-36.2 [facility] pH (Unsp spec)Ordered By: Karri Hay on 10-18-2024 Blood Gas pH 7.34 Low 7.35-7.45 [facility] Absolute lymphocyte countOrd ered By: Diana Ramos on 08-22-2024 Lymphocytes Auto (Unsp spec) [#/Vol] 1.48 10*3/uL 0.83-4.51 [facility] Absolute neutrophil countOrd ered By: Diana Ramos on 08-22-2024 Neutrophils (Bld) [#/Vol] 4.3 10*3/uL 2.0-7.7 [facility] Automated lymphocyte count a s percentage of total leukocytesOrdered By: Diana Ramos on 08-22-2024 Lymphocytes/100 WBC Auto (Unsp spec) 22.9 % 19-41 [facility] BUN/creatinine ratioOrdered By: Dianaprasanna Fongfranny on 08-22-2024 Urea nitrogen/Creatinine [Mass ratio] 35.9 mg/mg High 10-20 [facility] Basophil percentageOrdered B y: Diana Rachel on 08-22-2024 Basophils/100 WBC (Bld) 0.6 % 0-1 [facility] Bilirubin, totalOrdered By: Diana Rachel on 08-22-2024 Bilirubin [Mass/Vol] 0.52 mg/dL 0.00-1.30 [facility] CBC W/Diff, Automatedon 07-30 Absolute Lymph 1.48 X10 3/uL Normal 0.83-4.51 [facility] Comment on above: Performed By: #### L 500.4050, L100.0100 ####[facility] [address] [place], [address] Absolute Neut 4.3 X10 3/uL Normal 2.0-7.7 [facility] Comment on above: Performed By: #### L 500.4050, L100.0100 ####[facility] [address] [place], [address] Basophils/100 WBC (Bld) 0.6 % Normal 0-1 [facility] Comment on above: Performed By: #### L 500.4050, L100.0100 ####[facility] [address] [place], [address] Eosinophils/100 WBC (Bld) 3.2 % Normal 0-5 [facility] Comment on above: Performed By: #### L 500.4050, L100.0100 ####[facility] [address] [place], [address] Erythrocyte distribution width (RBC) [Ratio] 14.3 % Normal 11.6-14.6 [facility] Comment on above: Performed By: #### L 500.4050, L100.0100 ####[facility] [address] [place], [address] Hematocrit (Bld) [Volume fraction] 46.7 % Normal 37-47 [facility] Comment on above: Performed By: #### L 500.4050, L100.0100 ####[facility] [address] [place], [address] Hemoglobin (Bld) [Mass/Vol] 14.8 g/dL Normal 12.0-15.0 [facility] Comment on above: Performed By: #### L 500.4050, L100.0100 ####[facility] [address] [place], [address] IG% 0.300 Normal 0.0-0.9 [facility] Comment on above: Result Comment: IG% - Immature Granulocytes (promyelocytes, myelocytes andmetamyelocytes) > 1% indicates that a LEFT SHIFT is Present. Performed By: #### L 500.4050, L100.0100 ####[facility] [address] [place], [address] Lymphocytes/100 WBC (Bld) 22.9 % Normal 19-41 [facility] Comment on above: Performed By: #### L 500.4050, L100.0100 ####[facility] [address] [place], [address] MCH (RBC) [Entitic mass] 28.2 pg Normal 27.0-32.0 [facility] Comment on above: Performed By: #### L 500.4050, L100.0100 ####[facility] [address] [place], [address] MCHC (RBC) [Mass/Vol] 31.7 g/dL Low 32-36 [facility] Comment on above: Performed By: #### L 500.4050, L100.0100 ####[facility] [address] [place], [address] MCV (RBC) [Entitic vol] 89.1 fL Normal 81-99 [facility] Comment on above: Performed By: #### L 500.4050, L100.0100 ####[facility] [address] [place], [address] Monocytes/100 WBC (Bld) 7.0 % Normal 0-10 [facility] Comment on above: Performed By: #### L 500.4050, L100.0100 ####[facility] [address] [place], [address] Neutrophils/100 WBC (Bld) 66.0 % Normal 47-70 [facility] Comment on above: Performed By: #### L 500.4050, L100.0100 ####[facility] [address] [place], [address] Nucleated RBC (Bld) [#/Vol] 0 10*3/uL Normal 0-5 [facility] Comment on above: Performed By: #### L 500.4050, L100.0100 ####[facility] [address] [place], [address] Platelet mean volume (Bld) [Entitic vol] 10.2 fL Normal 6.2-12.0 [facility] [facility] Comment on above: Performed By: #### L 500.4050, L100.0100 ####[facility] [address] [place], [address] Platelets (Bld) [#/Vol] 211 10*3/uL Normal 150-450 [facility] Comment on above: Performed By: #### L 500.4050, L100.0100 ####[facility] [address] [place], [address] RBC (Bld) [#/Vol] 5.24 10*6/uL Normal 4.2-5.4 [facility] Comment on above: Performed By: #### L 500.4050, L100.0100 ####[facility] [address] [place], [address] RDW SD 46.0 fl High 35.1-43.9 [facility] Comment on above: Performed By: #### L 500.4050, L100.0100 ####[facility] [address] [place], [address] WBC (Bld) [#/Vol] 6.5 10*3/uL Normal 4.4-11.0 [facility] Comment on above: Performed By: #### L 500.4050, L100.0100 ####[facility] [address] [place], [address] Comprehensive Metabolic Prof ilon 08-22-2024 Albumin [Mass/Vol] 4.0 g/dL Normal 3.4-4.8 [facility] Comment on above: Performed By: #### L 500.4050 ####[facility] [address] [place], [address] Albumin/Globulin [Mass ratio] 1.1 {ratio} Normal 0.9-2.4 [facility] Comment on above: Performed By: #### L 500.4050 ####[facility] [address] [place], [address] ALK PHOS 101 U/L Normal 35-104 [facility] Comment on above: Performed By: #### L 500.4050 ####[facility] [address] [place], [address] ALT [Catalytic activity/Vol] 13 U/L Normal <=34 [facility] Comment on above: Performed By: #### L 500.4050 ####[facility] [address] [place], [address] Anion gap [Moles/Vol] 14 mmol/L Normal 5-15 [facility] Comment on above: Performed By: #### L 500.4050 ####[facility] [address] [place], [address] AST [Catalytic activity/Vol] 17 U/L Normal <=31 [facility] Comment on above: Performed By: #### L 500.4050 ####[facility] [address] [place], [address] Bilirubin [Mass/Vol] 0.52 mg/dL Normal 0.00-1.30 [facility] Comment on above: Performed By: #### L 500.4050 ####[facility] [address] [place], [address] BUN/CRE 35.9 RATIO High 10-20 [facility] Comment on above: Performed By: #### L 500.4050 ####[facility] [address] [place], [address] Calcium [Mass/Vol] 10.0 mg/dL Normal 7.6-11.0 [facility] Comment on above: Performed By: #### L 500.4050 ####[facility] [address] [place], [address] Chloride [Moles/Vol] 102 mmol/L Normal 96-108 [facility] Comment on above: Performed By: #### L 500.4050 ####[facility] [address] [place], [address] CO2 [Moles/Vol] 24.0 mmol/L Normal 22.0-29.0 [facility] Comment on above: Performed By: #### L 500.4050 ####[facility] [address] [place], [address] Creatinine [Mass/Vol] 0.8 mg/dL Normal 0.6-1.0 [facility] Comment on above: Performed By: #### L 500.4050 ####[facility] [address] [place], [address] GFR/1.73 sq M.predicted among non-blacks MDRD (S/P/Bld) [Vol rate/Area] 90 mL/min/{1.73_m2} Normal >60 [facility] Comment on above: Result Comment: mL/m in/1.73m2 CKD-EPI Creatinine Equation (2020) Performed By: #### L 500.4050 ####[facility] [address] [place], [address] Globulin (S) [Mass/Vol] 3.8 g/dL Normal 2.2-4.2 [facility] Comment on above: Performed By: #### L 500.4050 ####[facility] [address] [place], [address] Glucose [Mass/Vol] 187 mg/dL High 70-99 [facility] Comment on above: Performed By: #### L 500.4050 ####[facility] [address] [place], [address] Potassium [Moles/Vol] 4.3 mmol/L Normal 3.3-5.1 [facility] Comment on above: Performed By: #### L 500.4050 ####[facility] [address] [place], [address] Sodium [Moles/Vol] 140 mmol/L Normal 133-145 [facility] Comment on above: Performed By: #### L 500.4050 ####[facility] [address] [place], [address] T PROT 7.8 g/dL Normal 5.9-8.4 [facility] Comment on above: Performed By: #### L 500.4050 ####[facility] [address] [place], [address] Urea nitrogen [Mass/Vol] 27 mg/dL High 4-19 [facility] Comment on above: Performed By: #### L 500.4050 ####[facility] [address] [place], [address] ALB Normal 3.4-4.8 [facility] Comment on above: Result Comment: PUTT ING UNDER DIFFERENT REQ Performed By: #### L 500.4050, L100.0100 ####[facility] [address] [place], [address] ALK PHOS Normal 45-117 [facility] Comment on above: Result Comment: PUTT ING UNDER DIFFERENT REQ Performed By: #### L 500.4050, L100.0100 ####[facility] [address] [place], [address] ALT Normal 13-56 [facility] Comment on above: Result Comment: PUTT ING UNDER DIFFERENT REQ Performed By: #### L 500.4050, L100.0100 ####[facility] [address] [place], [address] AST Normal 15-37 [facility] Comment on above: Result Comment: PUTT ING UNDER DIFFERENT REQ Performed By: #### L 500.4050, L100.0100 ####[facility] [address] [place], [address] BUN Normal 4-19 [facility] Comment on above: Result Comment: PUTT ING UNDER DIFFERENT REQ Performed By: #### L 500.4050, L100.0100 ####[facility] [address] [place], [address] BUN/CRE Normal 10-20 [facility] Comment on above: Result Comment: PUTT ING UNDER DIFFERENT REQ Performed By: #### L 500.4050, L100.0100 ####[facility] [address] [place], [address] Calcium Normal 8.5-10.1 [facility] Comment on above: Result Comment: PUTT ING UNDER DIFFERENT REQ Performed By: #### L 500.4050, L100.0100 ####[facility] [address] [place], [address] CL Normal 98-107 [facility] Comment on above: Result Comment: PUTT ING UNDER DIFFERENT REQ Performed By: #### L 500.4050, L100.0100 ####[facility] [address] [place], [address] CO2 Normal 21.0-32.0 [facility] Comment on above: Result Comment: PUTT ING UNDER DIFFERENT REQ Performed By: #### L 500.4050, L100.0100 ####[facility] [address] [place], [address] CREAT,SERUM Normal 0.6-1.0 [facility] Comment on above: Result Comment: PUTT ING UNDER DIFFERENT REQ Performed By: #### L 500.4050, L100.0100 ####[facility] [address] [place], [address] eGFR Normal >60 [facility] Comment on above: Result Comment: PUTT ING UNDER DIFFERENT REQ Performed By: #### L 500.4050, L100.0100 ####[facility] [address] [place], [address] GAP Normal 5-15 [facility] Comment on above: Result Comment: PUTT ING UNDER DIFFERENT REQ Performed By: #### L 500.4050, L100.0100 ####[facility] [address] [place], [address] GLU Normal 70-99 [facility] Comment on above: Result Comment: PUTT ING UNDER DIFFERENT REQ Performed By: #### L 500.4050, L100.0100 ####[facility] [address] [place], [address] Potassium Normal 3.5-5.1 [facility] Comment on above: Result Comment: PUTT ING UNDER DIFFERENT REQ Performed By: #### L 500.4050, L100.0100 ####[facility] [address] [place], [address] T BILI Normal 0.20-1.00 [facility] Comment on above: Result Comment: PUTT ING UNDER DIFFERENT REQ Performed By: #### L 500.4050, L100.0100 ####[facility] [address] [place], [address] T PROT Normal 5.9-8.4 [facility] Comment on above: Result Comment: PUTT ING UNDER DIFFERENT REQ Performed By: #### L 500.4050, L100.0100 ####[facility] [address] [place], [address] Comprehensive Metabolic Profil Normal 136-145 [facility] Comment on above: Result Comment: PUTT ING UNDER DIFFERENT REQ Performed By: #### L 500.4050, L100.0100 ####[facility] [address] [place], [address] Creatinine [Moles/Vol]Ordere d By: Diana Ramos on 08-22-2024 Creatinine [Mass/Vol] 0.8 mg/dL 0.6-1.0 [facility] Eosinophil percentageOrdered By: Diana Ramos on 08-22-2024 Eosinophils/100 WBC (Bld) 3.2 % 0-5 [facility] Erythrocyte distribution wid th ratioOrdered By: Diana Ramos on 08-22-2024 Erythrocyte distribution width (RBC) [Ratio] 14.3 % 11.6-14.6 [facility] Erythrocyte distribution wid th standard deviationOrdered By: Diana Ramos on 08-22-2024 Erythrocyte distribution width (RBC) [Entitic vol] 46.0 fL High 35.1-43.9 [facility] Erythrocyte distribution width (RBC) [Ratio] 46.0 fl High 35.1-43.9 [facility] GFR/1.73 sq M.predicted marcelina g non-blacks MDRD (S/P/Bld) [Vol rate/Area]Ordered By: Diana Ramos on 08-22-2024 Estimated GFR (MDRD) Non-Af Amer 90 >60 [facility] Comment on above: mL/min/1.73m2 CKD-EP I Creatinine Equation (2020) Glomerular filtration rate ( GFR) estimation/1.73 sq m using serum, plasma, or whole bOrdered By: Diana Ramos on 08-22-2024 GFR/1.73 sq M.predicted among non-blacks MDRD (S/P/Bld) [Vol rate/Area] 90 mL/min/{1.73_m2} >60 [facility] Comment on above: mL/min/1.73m2 CKD-EP I Creatinine Equation (2020) Hematocrit Auto (Bld) [Volum e fraction]Ordered By: Diana Ramos on 08-22-2024 Hematocrit (Bld) [Volume fraction] 46.7 % 37-47 [facility] Hemoglobin measurementOrdere d By: Diana Ramos on 08-22-2024 Hemoglobin (Bld) [Mass/Vol] 14.8 g/dL 12.0-15.0 [facility] Immature granulocytes/100 WB C Auto (Bld)Ordered By: Diana Ramos on 08-22-2024 Immature granulocytes/100 WBC (Bld) 0.300 % 0.0-0.9 [facility] Comment on above: IG% - Immature Granu locytes (promyelocytes, myelocytes and metamyelocytes) > 1% indicates that a LEFT SHIFT is Present. Laboratory - Chemistry and C hemistry - challengeOrdered By: Diana Ramos on 08-22-2024 AST [Catalytic activity/Vol] 17 U/L <32 [facility] Lymphocytes Auto (Unsp spec) [#/Vol]Ordered By: Diana Ramos on 08-22-2024 Lymphocytes (Bld) [#/Vol] 1.48 10*3/uL 0.83-4.51 [facility] Lymphocytes/100 WBC Auto (Un sp spec)Ordered By: Diana Ramos on 08-22-2024 Lymphocytes/100 WBC (Bld) 22.9 % 19-41 [facility] MCV (mean corpuscular volume ) determinationOrdered By: Diana Ramos on 08-22-2024 MCV (RBC) [Entitic vol] 89.1 fL 81-99 [facility] Mean corpuscular hemoglobin (MCH) determinationOrdered By: Diana Ramos on 08-22-2024 MCH (RBC) [Entitic mass] 28.2 pg 27.0-32.0 [facility] Mean corpuscular hemoglobin concentration (MCHC) determinationOrdered By: Diana Ramos on 08-22-2024 MCHC (RBC) [Mass/Vol] 31.7 g/dL Low 32-36 [facility] Mean platelet volume determi nationOrdered By: Diana Ramos on 08-22-2024 Platelet mean volume (Bld) [Entitic vol] 10.2 fL 6.2-12.0 [facility] Monocyte percentageOrdered B y: Diana Ramos on 08-22-2024 Monocytes/100 WBC (Bld) 7.0 % 0-10 [facility] Neutrophil percentageOrdered By: Diana Ramos on 08-22-2024 Neutrophils/100 WBC (Bld) 66.0 % 47-70 [facility] Nucleated red blood cell per centageOrdered By: Diana Ramos on 08-22-2024 Nucleated RBC/100 WBC (Bld) [Ratio] 0 % 0-5 [facility] Platelet countOrdered By: Sanaz Ramos on 08-22-2024 Platelets (Bld) [#/Vol] 211 10*3/uL 150-450 [facility] RBC Auto (Bld) [#/Vol]Ordere d By: Diana Ramos on 08-22-2024 RBC (Bld) [#/Vol] 5.24 10*6/uL 4.2-5.4 [facility] Serum globulin measurementOr dered By: Diana Ramos on 08-22-2024 Globulin (S) [Mass/Vol] 3.8 g/dL 2.2-4.2 [facility] Serum glucose measurement (m ass/volume)Ordered By: Diana Ramos on 08-22-2024 Glucose [Mass/Vol] 187 mg/dL High 70-99 [facility] Serum or plasma alanine smith otransferase (ALT) measurementOrdered By: Diana Ramos on 08-22-2024 ALT [Catalytic activity/Vol] 13 U/L <35 [facility] Serum or plasma albumin jasiel urement (mass/volume)Ordered By: Diana Ramos on 08-22-2024 Albumin [Mass/Vol] 4.0 g/dL 3.4-4.8 [facility] Serum or plasma albumin/glob ulin mass ratioOrdered By: Diana Ramos on 08-22-2024 Albumin/Globulin [Mass ratio] 1.1 {ratio} 0.9-2.4 [facility] Serum or plasma alkaline quintin sphatase measurementOrdered By: Diana Ramos on 08-22-2024 ALP [Catalytic activity/Vol] 101 U/L 35-104 [facility] Serum or plasma anion gap de termination (moles/volume)Ordered By: Diana Ramos on 08-22-2024 Anion gap [Moles/Vol] 14 mmol/L 5-15 [facility] Serum or plasma calcium jasiel urement (mass/volume)Ordered By: Diana Ramos on 08-22-2024 Calcium [Mass/Vol] 10.0 mg/dL 7.6-11.0 [facility] Serum or plasma creatinine m easurement (moles/volume)Ordered By: Diana Ramos on 08-22-2024 Creatinine [Moles/Vol] 0.8 mg/dL 0.6-1.0 [facility] Serum or plasma potassium me asurementOrdered By: Diana Ramos on 08-22-2024 Potassium [Moles/Vol] 4.3 mmol/L 3.3-5.1 [facility] Serum or plasma sodium measu rement (moles/volume)Ordered By: Diana Ramos on 08-22-2024 Sodium [Moles/Vol] 140 mmol/L 133-145 [facility] Serum or plasma urea nitroge n measurement (mass/volume)Ordered By: Diana Ramos on 08-22-2024 Urea nitrogen [Mass/Vol] 27 mg/dL High - [facility] Total proteinOrdered By: Katarina Ramos on 08-22-2024 Protein [Mass/Vol] 7.8 g/dL 5.9-8.4 [facility] White blood cell (WBC) count Ordered By: Diana Ramos on 08-22-2024 WBC (Bld) [#/Vol] 6.5 10*3/uL 4.4-11.0 [facility] Absolute neutrophil countOrd ered By: Dianaprasanna Ramos on 05-29-2024 Neutrophils (Bld) [#/Vol] 4.1 10*3/uL 2.0-7.7 [facility] Albumin to globulin ratioOrd ered By: Diana Ramos on 05-29-2024 Albumin/Globulin [Mass ratio] 0.9 {ratio} 0.9-2.4 [facility] Basophil percentageOrdered B y: Diana Ramos on 05-29-2024 Basophils/100 WBC (Bld) 0.9 % 0-1 [facility] Bilirubin, totalOrdered By: Dianaprasanna Ramos on 05-29-2024 Bilirubin [Mass/Vol] 0.40 mg/dL 0.20-1.00 [facility] Comment on above: For patients on eltr ombopag therapy, use of [facility] TBIL is not recommended. Blood urea nitrogen (BUN)/cr eatinine ratioOrdered By: Diana Ramos on 05-29-2024 Urea nitrogen/Creatinine [Mass ratio] 23.8 mg/mg High - [facility] CBC W/Diff, Automatedon Absolute Lymph 1.82 X10 3/uL Normal 0.83-4.51 [facility] Comment on above: Performed By: #### L 500.4050, L100.0100 ####[facility] [address] [place], [place], [address] Absolute Neut 4.1 X10 3/uL Normal 2.0-7.7 [facility] Comment on above: Performed By: #### L 500.4050, L100.0100 ####[facility] [address] [place], [address] Basophils/100 WBC (Bld) 0.9 % Normal 0-1 [facility] Comment on above: Performed By: #### L 500.4050, L100.0100 ####[facility] [address] [place], [address] Eosinophils/100 WBC (Bld) 4.6 % Normal 0-5 [facility] Comment on above: Performed By: #### L 500.4050, L100.0100 ####[facility] [address] [place], [address] Erythrocyte distribution width (RBC) [Ratio] 14.0 % Normal 11.6-14.6 [facility] Comment on above: Performed By: #### L 500.4050, L100.0100 ####[facility] [address] [place], [address] Hematocrit (Bld) [Volume fraction] 46.3 % Normal 37-47 [facility] Comment on above: Performed By: #### L 500.4050, L100.0100 ####[facility] [address] [place], [address] Hemoglobin (Bld) [Mass/Vol] 14.6 g/dL Normal 12.0-15.0 [facility] Comment on above: Performed By: #### L 500.4050, L100.0100 ####[facility] [address] [place], [address] IG% 0.300 Normal 0.0-0.9 [facility] Comment on above: Result Comment: IG% - Immature Granulocytes (promyelocytes, myelocytes andmetamyelocytes) > 1% indicates that a LEFT SHIFT is Present. Performed By: #### L 500.4050, L100.0100 ####[facility] [address] [place], [address] Lymphocytes/100 WBC (Bld) 26.9 % Normal 19-41 [facility] Comment on above: Performed By: #### L 500.4050, L100.0100 ####[facility] [address] [place], [address] MCH (RBC) [Entitic mass] 28.3 pg Normal 27.0-32.0 [facility] Comment on above: Performed By: #### L 500.4050, L100.0100 ####[facility] [address] [place], [address] MCHC (RBC) [Mass/Vol] 31.5 g/dL Low 32-36 [facility] Comment on above: Performed By: #### L 500.4050, L100.0100 ####[facility] [address] [place], [address] MCV (RBC) [Entitic vol] 89.9 fL Normal 81-99 [facility] Comment on above: Performed By: #### L 500.4050, L100.0100 ####[facility] [address] [place], [address] Monocytes/100 WBC (Bld) 7.5 % Normal 0-10 [facility] Comment on above: Performed By: #### L 500.4050, L100.0100 ####[facility] [address] [place], [address] Neutrophils/100 WBC (Bld) 59.8 % Normal 47-70 [facility] Comment on above: Performed By: #### L 500.4050, L100.0100 ####[facility] [address] [place], [address] Nucleated RBC (Bld) [#/Vol] 0 10*3/uL Normal 0-5 [facility] Comment on above: Performed By: #### L 500.4050, L100.0100 ####[facility] [address] [place], [address] Platelet mean volume (Bld) [Entitic vol] 10.5 fL Normal 6.2-12.0 [facility] Comment on above: Performed By: #### L 500.4050, L100.0100 ####[facility] [address] [place], [address] Platelets (Bld) [#/Vol] 200 10*3/uL Normal 150-450 [facility] Comment on above: Performed By: #### L 500.4050, L100.0100 ####[facility] [address] [place], [address] RBC (Bld) [#/Vol] 5.15 10*6/uL Normal 4.2-5.4 [facility] Comment on above: Performed By: #### L 500.4050, L100.0100 ####[facility] [address] [place], [address] RDW SD 45.5 fl High 35.1-43.9 [facility] Comment on above: Performed By: #### L 500.4050, L100.0100 ####[facility] [address] [place], [address] WBC (Bld) [#/Vol] 6.8 10*3/uL Normal 4.4-11.0 [facility] Comment on above: Performed By: #### L 500.4050, L100.0100 ####[facility] [address] [place], [address] Carbon dioxide measurementOr dered By: Diana Ramos on 05-29-2024 CO2 [Moles/Vol] 27.0 mmol/L 21.0-32.0 [facility] Chloride measurementOrdered By: Diana Ramos on 05-29-2024 Chloride [Moles/Vol] 107 mmol/L 98-107 [facility] Comprehensive Metabolic Prof ilon 05-29-2024 Albumin [Mass/Vol] 3.7 g/dL Normal 3.2-5.0 [facility] Comment on above: Performed By: #### L 500.4050, L100.0100 ####[facility] [address] [place], [address] Albumin/Globulin [Mass ratio] 0.9 {ratio} Normal 0.9-2.4 [facility] Comment on above: Performed By: #### L 500.4050, L100.0100 ####[facility] [address] [place], [address] ALK P 97 U/L Normal 45-117 [facility] Comment on above: Performed By: #### L 500.4050, L100.0100 ####[facility] [address] [place], [address] ALT [Catalytic activity/Vol] 16 U/L Normal 13-56 [facility] Comment on above: Performed By: #### L 500.4050, L100.0100 ####[facility] [address] [place], [address] AST [Catalytic activity/Vol] 10 U/L Low 15-37 [facility] Comment on above: Performed By: #### L 500.4050, L100.0100 ####[facility] [address] [place], [address] Bilirubin [Mass/Vol] 0.40 mg/dL Normal 0.20-1.00 [facility] Comment on above: Result Comment: For patients on eltrombopag therapy, use of [facility] TBIL is not recommended. Performed By: #### L 500.4050, L100.0100 ####[facility] [address] [place], [address] BUN/CRE 23.8 RATIO High 10-20 [facility] Comment on above: Performed By: #### L 500.4050, L100.0100 ####[facility] [address] [place], [address] CA,Total 9.8 mg/dL Normal 8.5-10.1 [facility] Comment on above: Performed By: #### L 500.4050, L100.0100 ####[facility] [address] [place], [address] Chloride [Moles/Vol] 107 mmol/L Normal 98-107 [facility] Comment on above: Performed By: #### L 500.4050, L100.0100 ####[facility] [address] [place], [address] CO2 [Moles/Vol] 27.0 mmol/L Normal 21.0-32.0 [facility] Comment on above: Performed By: #### L 500.4050, L100.0100 ####[facility] [address] [place], [address] Creatinine [Mass/Vol] 0.80 mg/dL Normal 0.55-1.02 [facility] Comment on above: Result Comment: The validity of the calculated GFR GFRAA in patients over70 years has not been determined. Clinical correlation isessential. Performed By: #### L 500.4050, L100.0100 ####[facility] [address] [place], [address] EST GFR - AA 94 mL/min Normal >60 [facility] Comment on above: Result Comment: Afri can [place]i GFR Calc Performed By: #### L 500.4050, L100.0100 ####[facility] [address] [place], [address] GAP 6 Normal 5-15 [facility] Comment on above: Performed By: #### L 500.4050, L100.0100 ####[facility] [address] [place], [address] GFR/1.73 sq M.predicted among non-blacks MDRD (S/P/Bld) [Vol rate/Area] 78 mL/min/{1.73_m2} Normal >60 [facility] Comment on above: Result Comment: Non- GFR Calc Performed By: #### L 500.4050, L100.0100 ####[facility] [address] [place], [address] Globulin (S) [Mass/Vol] 4.3 g/dL High 2.2-4.2 [facility] Comment on above: Performed By: #### L 500.4050, L100.0100 ####[facility] [address] [place], [address] Glucose [Mass/Vol] 177 mg/dL High 74-106 [facility] Comment on above: Result Comment: Fast ing Glucose result greater than or equal to 126 mg/dLsuggests DIABETES MELLITUS per A.D.A. criteria. Performed By: #### L 500.4050, L100.0100 ####[facility] [address] [place], [address] Potassium [Moles/Vol] 3.8 mmol/L Normal 3.5-5.1 [facility] Comment on above: Performed By: #### L 500.4050, L100.0100 ####[facility] [address] [place], [address] Sodium [Moles/Vol] 140 mmol/L Normal 136-145 [facility] Comment on above: Performed By: #### L 500.4050, L100.0100 ####[facility] [address] [place], [address] T PROT 8.0 g/dL Normal 6.4-8.2 [facility] Comment on above: Performed By: #### L 500.4050, L100.0100 ####[facility] [address] [place], [place], [address] Urea nitrogen [Mass/Vol] 19 mg/dL High 7-18 [facility] Comment on above: Performed By: #### L 500.4050, L100.0100 ####[facility] [address] [place], [address] Eosinophil percentageOrdered By: Diana Ramos on 05-29-2024 Eosinophils/100 WBC (Bld) 4.6 % 0-5 [facility] Erythrocyte distribution wid th ratioOrdered By: Diana Ramos on 05-29-2024 Erythrocyte distribution width (RBC) [Ratio] 14.0 % 11.6-14.6 [facility] Erythrocyte distribution wid th standard deviationOrdered By: Diana Ramos on 05-29-2024 Erythrocyte distribution width (RBC) [Entitic vol] 45.5 fL High 35.1-43.9 [facility] Estimated glomerular filtrat ion rate (GFR) AmericanOrdered By: Diana Ramos on 05-29-2024 Estimated GFR (MDRD) Amer 94 mL/min >60 [facility] Comment on above: GFR Calc Glomerular filtration rate ( GFR) estimationOrdered By: Diana Ramos on 05-29-2024 Estimated GFR (MDRD) Non-Af Amer 78 mL/min >60 [facility] Comment on above: Non- GFR Calc Glucose measurementOrdered B y: Diana Ramos on 05-29-2024 Glucose [Mass/Vol] 177 mg/dL High 74-106 [facility] Comment on above: Fasting Glucose resu lt greater than or equal to 126 mg/dL suggests DIABETES MELLITUS per A.D.A. criteria. Hematocrit Auto (Bld) [Volum e fraction]Ordered By: Diana Ramos on 05-29-2024 Hematocrit (Bld) [Volume fraction] 46.3 % 37-47 [facility] Hemoglobin measurementOrdere d By: Diana Ramos on 05-29-2024 Hemoglobin (Bld) [Mass/Vol] 14.6 g/dL 12.0-15.0 [facility] Immature granulocytes/100 WB C Auto (Bld)Ordered By: Diana Ramos on 05-29-2024 Immature granulocytes/100 WBC (Bld) 0.300 % 0.0-0.9 [facility] Comment on above: IG% - Immature Granu locytes (promyelocytes, myelocytes and metamyelocytes) > 1% indicates that a LEFT SHIFT is Present. Laboratory - Chemistry and C hemistry - challengeOrdered By: Diana Ramos on 05-29-2024 AST [Catalytic activity/Vol] 10 U/L Low 15-37 [facility] Lymphocytes Auto (Unsp spec) [#/Vol]Ordered By: Diana Ramos on 05-29-2024 Lymphocytes (Bld) [#/Vol] 1.82 10*3/uL 0.83-4.51 [facility] Lymphocytes/100 WBC Auto (Un sp spec)Ordered By: Diana Ramos on 05-29-2024 Lymphocytes/100 WBC (Bld) 26.9 % 19-41 [facility] MCV (mean corpuscular volume ) determinationOrdered By: Diana Ramos on 05-29-2024 MCV (RBC) [Entitic vol] 89.9 fL 81-99 [facility] Mean corpuscular hemoglobin (MCH) determinationOrdered By: Diana Ramos on 05-29-2024 MCH (RBC) [Entitic mass] 28.3 pg 27.0-32.0 [facility] Mean corpuscular hemoglobin concentration (MCHC) determinationOrdered By: Diana Ramos on 05-29-2024 MCHC (RBC) [Mass/Vol] 31.5 g/dL Low 32-36 [facility] Mean platelet volume determi nationOrdered By: Diana Ramos on 05-29-2024 Platelet mean volume (Bld) [Entitic vol] 10.5 fL 6.2-12.0 [facility] Monocyte percentageOrdered B y: Diana Ramos on 05-29-2024 Monocytes/100 WBC (Bld) 7.5 % 0-10 [facility] Neutrophil percentageOrdered By: Diana Ramos on 05-29-2024 Neutrophils/100 WBC (Bld) 59.8 % 47-70 [facility] Nucleated red blood cell per centageOrdered By: Diana Ramos on 05-29-2024 Nucleated RBC/100 WBC (Bld) [Ratio] 0 % 0-5 [facility] Platelet countOrdered By: Sanaz Ramos on 05-29-2024 Platelets (Bld) [#/Vol] 200 10*3/uL 150-450 [facility] Potassium measurementOrdered By: Diana Ramos on 05-29-2024 Potassium [Moles/Vol] 3.8 mmol/L 3.5-5.1 [facility] RBC Auto (Bld) [#/Vol]Ordere d By: Diana Ramos on 05-29-2024 RBC (Bld) [#/Vol] 5.15 10*6/uL 4.2-5.4 [facility] Serum anion gap measurementO rdered By: Diana Ramos on 05-29-2024 Anion gap [Moles/Vol] 6 mmol/L 5-15 [facility] Serum globulin measurementOr dered By: Diana Ramos on 05-29-2024 Globulin (S) [Mass/Vol] 4.3 g/dL High 2.2-4.2 [facility] Serum or plasma alanine smith otransferase (ALT) measurementOrdered By: Diana Ramos on 05-29-2024 ALT [Catalytic activity/Vol] 16 U/L 13-56 [facility] Serum or plasma albumin jasiel urement (mass/volume)Ordered By: Diana Ramos on 05-29-2024 Albumin [Mass/Vol] 3.7 g/dL 3.2-5.0 [facility] Serum or plasma alkaline quintin sphatase measurementOrdered By: Diana Ramos on 05-29-2024 ALP [Catalytic activity/Vol] 97 U/L 45-117 [facility] Serum or plasma calcium jasiel urement (mass/volume)Ordered By: Diana Ramos on 05-29-2024 Calcium [Mass/Vol] 9.8 mg/dL 8.5-10.1 [facility] Serum or plasma creatinine m easurement (mass/volume)Ordered By: Diana Ramos on 05-29-2024 Creatinine [Mass/Vol] 0.80 mg/dL 0.55-1.02 [facility] Comment on above: The validity of the calculated GFR & GFRAA in patients over 70 years has not been determined. Clinical correlation is essential. Serum or plasma urea nitroge n measurement (mass/volume)Ordered By: Diana Ramos on 05-29-2024 Urea nitrogen [Mass/Vol] 19 mg/dL High 7-18 [facility] Sodium levelOrdered By: Alexia Ramos on 05-29-2024 Sodium [Moles/Vol] 140 mmol/L 136-145 [facility] Total proteinOrdered By: Katarina Ramos on 05-29-2024 Protein [Mass/Vol] 8.0 g/dL 6.4-8.2 [facility] White blood cell (WBC) count Ordered By: Diana Ramos on 05-29-2024 WBC (Bld) [#/Vol] 6.8 10*3/uL 4.4-11.0 [facility] CBC W/Diff, Automatedon 09- Absolute Lymph 1.89 X10 3/uL Normal 0.83-4.51 [facility] Comment on above: Performed By: #### L 500.4050, L100.0100 ####[facility] [address] [place], [address] Absolute Neut 3.4 X10 3/uL Normal 2.0-7.7 [facility] Comment on above: Performed By: #### L 500.4050, L100.0100 ####[facility] [address] [place], [address] Basophils/100 WBC (Bld) 1.0 % Normal 0-1 [facility] Comment on above: Performed By: #### L 500.4050, L100.0100 ####[facility] [address] [place], [address] Eosinophils/100 WBC (Bld) 5.9 % High 0-5 [facility] Comment on above: Performed By: #### L 500.4050, L100.0100 ####[facility] [address] [place], [address] Erythrocyte distribution width (RBC) [Ratio] 14.4 % Normal 11.6-14.6 [facility] Comment on above: Performed By: #### L 500.4050, L100.0100 ####[facility] [address] [place], [address] Hematocrit (Bld) [Volume fraction] 45.9 % Normal 37-47 [facility] Comment on above: Performed By: #### L 500.4050, L100.0100 ####[facility] [address] [place], [address] Hemoglobin (Bld) [Mass/Vol] 14.3 g/dL Normal 12.0-15.0 [facility] Comment on above: Performed By: #### L 500.4050, L100.0100 ####[facility] [address] [place], [address] IG% 0.500 Normal 0.0-0.9 [facility] Comment on above: Result Comment: IG% - Immature Granulocytes (promyelocytes, myelocytes andmetamyelocytes) > 1% indicates that a LEFT SHIFT is Present. Performed By: #### L 500.4050, L100.0100 ####[facility] [address] [place], [address] Lymphocytes/100 WBC (Bld) 30.0 % Normal 19-41 [facility] Comment on above: Performed By: #### L 500.4050, L100.0100 ####[facility] [address] [place], [address] MCH (RBC) [Entitic mass] 27.7 pg Normal 27.0-32.0 [facility] Comment on above: Performed By: #### L 500.4050, L100.0100 ####[facility] [address] [place], [address] MCHC (RBC) [Mass/Vol] 31.2 g/dL Low 32-36 [facility] Comment on above: Performed By: #### L 500.4050, L100.0100 ####[facility] [address] [place], [address] MCV (RBC) [Entitic vol] 89.0 fL Normal 81-99 [facility] Comment on above: Performed By: #### L 500.4050, L100.0100 ####[facility] [address] [place], [address] Monocytes/100 WBC (Bld) 8.4 % Normal 0-10 [facility] Comment on above: Performed By: #### L 500.4050, L100.0100 ####[facility] [address] [place], [address] Neutrophils/100 WBC (Bld) 54.2 % Normal 47-70 [facility] Comment on above: Performed By: #### L 500.4050, L100.0100 ####[facility] [address] [place], [address] Nucleated RBC (Bld) [#/Vol] 0 10*3/uL Normal 0-5 [facility] Comment on above: Performed By: #### L 500.4050, L100.0100 ####[facility] [address] [place], [address] Platelet mean volume (Bld) [Entitic vol] 9.9 fL Normal 6.2-12.0 [facility] Comment on above: Performed By: #### L 500.4050, L100.0100 ####[facility] [address] [place], [address] Platelets (Bld) [#/Vol] 249 10*3/uL Normal 150-450 [facility] Comment on above: Performed By: #### L 500.4050, L100.0100 ####[facility] [address] [place], [address] RBC (Bld) [#/Vol] 5.16 10*6/uL Normal 4.2-5.4 [facility] Comment on above: Performed By: #### L 500.4050, L100.0100 ####[facility] [address] [place], [address] RDW SD 46.7 fl High 35.1-43.9 [facility] Comment on above: Performed By: #### L 500.4050, L100.0100 ####[facility] [address] [place], [address] WBC (Bld) [#/Vol] 6.3 10*3/uL Normal 4.4-11.0 [facility] Comment on above: Performed By: #### L 500.4050, L100.0100 ####[facility] [address] [place], [address] Comprehensive Metabolic Prof [facility] 03-10-2024 Albumin [Mass/Vol] 3.4 g/dL Normal 3.2-5.0 [facility] Comment on above: Performed By: #### L 500.4050, L100.0100 ####[facility] [address] [place], [address] Albumin/Globulin [Mass ratio] 0.8 {ratio} Low 0.9-2.4 [facility] Comment on above: Performed By: #### L 500.4050, L100.0100 ####[facility] [address] [place], [address] ALK P 104 U/L Normal 45-117 [facility] Comment on above: Performed By: #### L 500.4050, L100.0100 ####[facility] [address] [place], [address] ALT [Catalytic activity/Vol] 14 U/L Normal 13-56 [facility] Comment on above: Performed By: #### L 500.4050, L100.0100 ####[facility] [address] [place], [address] AST [Catalytic activity/Vol] 9 U/L Low 15-37 [facility] Comment on above: Performed By: #### L 500.4050, L100.0100 ####[facility] [address] [place], [address] Bilirubin [Mass/Vol] 0.50 mg/dL Normal 0.20-1.00 [facility] Comment on above: Result Comment: For patients on eltrombopag therapy, use of Dimension [place] TBIL is not recommended. Performed By: #### L 500.4050, L100.0100 ####[facility] [address] [place], [address] BUN/CRE 22.2 RATIO High 10-20 [facility] Comment on above: Performed By: #### L 500.4050, L100.0100 ####[facility] [address] [place], [address] CA,Total 9.6 mg/dL Normal 8.5-10.1 [facility] Comment on above: Performed By: #### L 500.4050, L100.0100 ####[facility] [address] [place], [address] Chloride [Moles/Vol] 104 mmol/L Normal 98-107 [facility] Comment on above: Performed By: #### L 500.4050, L100.0100 ####[facility] [address] [place], [address] CO2 [Moles/Vol] 27.0 mmol/L Normal 21.0-32.0 [facility] Comment on above: Performed By: #### L 500.4050, L100.0100 ####[facility] [address] [place], [address] Creatinine [Mass/Vol] 0.85 mg/dL Normal 0.55-1.02 [facility] Comment on above: Result Comment: The validity of the calculated GFR GFRAA in patients over70 years has not been determined. Clinical correlation isessential. Performed By: #### L 500.4050, L100.0100 ####[facility] [address] [place], [address] EST GFR - AA 87 mL/min Normal >60 [facility] Comment on above: Result Comment: Afri can [place]i GFR Calc Performed By: #### L 500.4050, L100.0100 ####[facility] [address] [place], [address] GAP 6 Normal 5-15 [facility] Comment on above: Performed By: #### L 500.4050, L100.0100 ####[facility] [address] [place], [address] GFR/1.73 sq M.predicted among non-blacks MDRD (S/P/Bld) [Vol rate/Area] 72 mL/min/{1.73_m2} Normal >60 [facility] Comment on above: Result Comment: Non- GFR Calc Performed By: #### L 500.4050, L100.0100 ####[facility] [address] [place], [address] Globulin (S) [Mass/Vol] 4.4 g/dL High 2.2-4.2 [facility] Comment on above: Performed By: #### L 500.4050, L100.0100 ####[facility] [address] [place], [address] Glucose [Mass/Vol] 147 mg/dL High 74-106 [facility] Comment on above: Result Comment: Fast ing Glucose result greater than or equal to 126 mg/dLsuggests DIABETES MELLITUS per A.D.A. criteria. Performed By: #### L 500.4050, L100.0100 ####[facility] [address] [place], [address] Potassium [Moles/Vol] 4.0 mmol/L Normal 3.5-5.1 [facility] Comment on above: Performed By: #### L 500.4050, L100.0100 ####[facility] [address] [place], [address] Sodium [Moles/Vol] 137 mmol/L Normal 136-145 [facility] Comment on above: Performed By: #### L 500.4050, L100.0100 ####[facility] [address] [place], [address] T PROT 7.8 g/dL Normal 6.4-8.2 [facility] Comment on above: Performed By: #### L 500.4050, L100.0100 ####[facility] [address] [place], [address] Urea nitrogen [Mass/Vol] 19 mg/dL High 7-18 [facility] Comment on above: Performed By: #### L 500.4050, L100.0100 ####[facility] [address] [place], [address] ANCAon 02-05-2024 Atypical pANCA <1:20 Normal Neg:<1:20 [facility] Comment on above: Order Comment: Test( s) 824950-Gbzonm, Serum or Plasmawas developed and its performance characteristicsdetermined by [employer]. It has not been cleared or approvedby the Food and Drug Administration.N Result Comment: The atypical pANCA pattern has been observed in asignificant percentage of patients with ulcerative colitis,primary sclerosing cholangitis and autoimmune hepatitis. Performed By: #### L 3100.5440, L503.6550, L2100.0000, L803.2200, L3400.3800, L101.9900, L503.6030, L501.6710, L3100.3425, L3300.1200, L3300.0100, L3410.2350, L800.1280, L3000.0375, L3400.0700 ####[facility] [address] [place], [place], [address] Cytoplasmic Ab <1:20 Normal Neg:<1:20 [facility] Comment on above: Order Comment: Test( s) 730313-Hjhowk, Serum or Plasmawas developed and its performance characteristicsdetermined by [employer]. It has not been cleared or approvedby the Food and Drug Administration.N Performed By: #### L 3100.5440, L503.6550, L2100.0000, L803.2200, L3400.3800, L101.9900, L503.6030, L501.6710, L3100.3425, L3300.1200, L3300.0100, L3410.2350, L800.1280, L3000.0375, L3400.0700 ####[facility] [address] [place], [place], [address] Perinuclear Ab. <1:20 Normal Neg:<1:20 [facility] Comment on above: Order Comment: Test( s) 538328-Ehmsnc, Serum or Plasmawas developed and its performance characteristicsdetermined by [employer]. It has not been cleared or approvedby the Food and Drug Administration.N Result Comment: The presence of positive fluorescence exhibiting P-ANCA orC-ANCA patterns alone is not specific for the diagnosis ofWegener's Granulomatosis (WG) or microscopic polyangiitis.Decisions about treatment should not be based solely onANCA IFA results. The [employer] ANCA Group Consensusrecommends follow up testing of positive sera with both RI-3 and MPO-ANCA enzyme immunoassays. As many as 5% serumsamples are positive only by EIA. Ref. AM J Clin Zpfoha2400;111:507-513. Performed By: #### L 3100.5440, L503.6550, L2100.0000, L803.2200, L3400.3800, L101.9900, L503.6030, L501.6710, L3100.3425, L3300.1200, L3300.0100, L3410.2350, L800.1280, L3000.0375, L3400.0700 ####[facility] [address] [place], [place], [id number] Anti-Smooth Muscle ABSon ANTISMOOTH MUSC 18 Units Normal 0-19 [facility] Comment on above: Order Comment: Test( s) 133155-Ijlguk, Serum or Plasmawas developed and its performance characteristicsdetermined by [employer]. It has not been cleared or approvedby the Food and Drug Administration.N Result Comment: Nega tive 0 - 19 Weak positive 20 - 30 Moderate to strong positive >30 Actin Antibodies are found in 52-85% of patients with autoimmune hepatitis or chronic active hepatitis and in 22% of patients with primary biliary cirrhosis. Performed By: #### L 3100.5440, L503.6550, L2100.0000, L803.2200, L3400.3800, L101.9900, L503.6030, L501.6710, L3100.3425, L3300.1200, L3300.0100, L3410.2350, L800.1280, L3000.0375, L3400.0700 ####[facility] [address] [place], [place], [id number] Celiac AB,Comprehensiveon ANTIGLIADIN IGA 5 units Normal 0-19 [facility] Comment on above: Order Comment: Test( s) 049697-Wtzdxk, Serum or Plasmawas developed and its performance characteristicsdetermined by [employer]. It has not been cleared or approvedby the Food and Drug Administration.N Result Comment: Nega tive 0 - 19 Weak Positive 20 - 30 Moderate to Strong Positive >30 Performed By: #### L 3100.5440, L503.6550, L2100.0000, L803.2200, L3400.3800, L101.9900, L503.6030, L501.6710, L3100.3425, L3300.1200, L3300.0100, L3410.2350, L800.1280, L3000.0375, L3400.0700 ####[facility] [address] [place], [address] ANTIGLIADIN IGG 3 units Normal 0-19 [facility] Comment on above: Order Comment: Test( s) 165591-Txcjgw, Serum or Plasmawas developed and its performance characteristicsdetermined by [employer]. It has not been cleared or approvedby the Food and Drug Administration.N Result Comment: Nega tive 0 - 19 Weak Positive 20 - 30 Moderate to Strong Positive >30 Performed By: #### L 3100.5440, L503.6550, L2100.0000, L803.2200, L3400.3800, L101.9900, L503.6030, L501.6710, L3100.3425, L3300.1200, L3300.0100, L3410.2350, L800.1280, L3000.0375, L3400.0700 ####[facility] [address] [place], [address] ENDOMYSIAL IGA Negative Normal Negative [facility] Comment on above: Order Comment: Test( s) 381140-Drltzv, Serum or Plasmawas developed and its performance characteristicsdetermined by [facility]. It has not been cleared or approvedby the Food and Drug Administration.N Performed By: #### L 3100.5440, L503.6550, L2100.0000, L803.2200, L3400.3800, L101.9900, L503.6030, L501.6710, L3100.3425, L3300.1200, L3300.0100, L3410.2350, L800.1280, L3000.0375, L3400.0700 ####[facility] [address] [place], [address] tTG IGA <2 Normal 0-3 [facility] Comment on above: Order Comment: Test( s) 452753-Pvuiyc, Serum or Plasmawas developed and its performance characteristicsdetermined by [facility]. It has not been cleared or approvedby the Food and Drug Administration.N Result Comment: Nega tive 0 - 3 Weak Positive 4 - 10 Positive >10 Tissue Transglutaminase (tTG) has been identified as the endomysial antigen. Studies have demonstr- ated that endomysial IgA antibodies have over 99% specificity for gluten sensitive enteropathy. Performed By: #### L 3100.5440, L503.6550, L2100.0000, L803.2200, L3400.3800, L101.9900, L503.6030, L501.6710, L3100.3425, L3300.1200, L3300.0100, L3410.2350, L800.1280, L3000.0375, L3400.0700 ####[facility] [address] [facility], [address] tTG IGG 4 U/mL Normal 0-5 [facility] Comment on above: Order Comment: Test( s) 513995-Rzrhmf, Serum or Plasmawas developed and its performance characteristicsdetermined by [facility]. It has not been cleared or approvedby the Food and Drug Administration.N Result Comment: Nega tive 0 - 5 Weak Positive 6 - 9 Positive >9 Performed By: #### L 3100.5440, L503.6550, L2100.0000, L803.2200, L3400.3800, L101.9900, L503.6030, L501.6710, L3100.3425, L3300.1200, L3300.0100, L3410.2350, L800.1280, L3000.0375, L3400.0700 ####[facility] [address] [facility]. [place], [place], [address] Ceruloplasminon 02-05-2024 CERULOPLASMIN 33.9 mg/dL Normal 19.0-39.0 [facility] Comment on above: Order Comment: Test( s) 524964-Lwpaem, Serum or Plasmawas developed and its performance characteristicsdetermined by [facility]. It has not been cleared or approvedby the Food and Drug Administration.N Performed By: #### L 3100.5440, L503.6550, L2100.0000, L803.2200, L3400.3800, L101.9900, L503.6030, L501.6710, L3100.3425, L3300.1200, L3300.0100, L3410.2350, L800.1280, L3000.0375, L3400.0700 ####[facility] [address] [place], [place], [id number] Copper, Serum or Plasmaon COPPER, SERUM 146 ug/dL Normal 80-158 [facility] Comment on above: Order Comment: Test( s) 417762-Quyjgr, Serum or Plasmawas developed and its performance characteristicsdetermined by [facility]. It has not been cleared or approvedby the Food and Drug Administration.N Result Comment: Dete ction Limit = 5 Performed By: #### L 3100.5440, L503.6550, L2100.0000, L803.2200, L3400.3800, L101.9900, L503.6030, L501.6710, L3100.3425, L3300.1200, L3300.0100, L3410.2350, L800.1280, L3000.0375, L3400.0700 ####[facility] [address] [place], [place], [id number] Hepatitis Panel Acuteon 01-26 HEP B CORE,IgM Negative Normal Negative [facility] Comment on above: Order Comment: Test( s) 040462-Umhjrt, Serum or Plasmawas developed and its performance characteristicsdetermined by [facility]. It has not been cleared or approvedby the Food and Drug Administration.N Performed By: #### L 3100.5440, L503.6550, L2100.0000, L803.2200, L3400.3800, L101.9900, L503.6030, L501.6710, L3100.3425, L3300.1200, L3300.0100, L3410.2350, L800.1280, L3000.0375, L3400.0700 ####[facility] [address] [place], [place], [phone] HEP B SURF AG Negative Normal Negative [facility] Comment on above: Order Comment: Test( s) 568456-Vlywwm, Serum or Plasmawas developed and its performance characteristicsdetermined by [facility]. It has not been cleared or approvedby the Food and Drug Administration.N Performed By: #### L 3100.5440, L503.6550, L2100.0000, L803.2200, L3400.3800, L101.9900, L503.6030, L501.6710, L3100.3425, L3300.1200, L3300.0100, L3410.2350, L800.1280, L3000.0375, L3400.0700 ####[facility] [address] [place], [address] HEP C VIRUS AB Non-Reactive Normal Non Reactive [facility] Comment on above: Order Comment: Test( s) 880275-Rdfyzg, Serum or Plasmawas developed and its performance characteristicsdetermined by [facility]. It has not been cleared or approvedby the Food and Drug Administration.N Performed By: #### L 3100.5440, L503.6550, L2100.0000, L803.2200, L3400.3800, L101.9900, L503.6030, L501.6710, L3100.3425, L3300.1200, L3300.0100, L3410.2350, L800.1280, L3000.0375, L3400.0700 ####[facility] [address] [place], [place], [phone] HEPATITIS A-IgM Negative Normal Negative [facility] Comment on above: Order Comment: Test( s) 961753-Wghokj, Serum or Plasmawas developed and its performance characteristicsdetermined by [facility]. It has not been cleared or approvedby the Food and Drug Administration.N Performed By: #### L 3100.5440, L503.6550, L2100.0000, L803.2200, L3400.3800, L101.9900, L503.6030, L501.6710, L3100.3425, L3300.1200, L3300.0100, L3410.2350, L800.1280, L3000.0375, L3400.0700 ####[facility] [address] [place], [place], [phone] ELI + Protein Elect, Serumon 02-05-2024 Albumin [Mass/Vol] 3.2 g/dL Normal 2.9-4.4 [facility] Comment on above: Order Comment: Test( s) 856121-Ebgjfv, Serum or Plasmawas developed and its performance characteristicsdetermined by [facility]. It has not been cleared or approvedby the Food and Drug Administration.N Performed By: #### L 3100.5440, L503.6550, L2100.0000, L803.2200, L3400.3800, L101.9900, L503.6030, L501.6710, L3100.3425, L3300.1200, L3300.0100, L3410.2350, L800.1280, L3000.0375, L3400.0700 ####[facility] [address] [place], [place], [phone] Albumin/Globulin [Mass ratio] 0.9 {ratio} Normal 0.7-1.7 [facility] Comment on above: Order Comment: Test( s) 928738-Gghksp, Serum or Plasmawas developed and its performance characteristicsdetermined by [facility]. It has not been cleared or approvedby the Food and Drug Administration.N Performed By: #### L 3100.5440, L503.6550, L2100.0000, L803.2200, L3400.3800, L101.9900, L503.6030, L501.6710, L3100.3425, L3300.1200, L3300.0100, L3410.2350, L800.1280, L3000.0375, L3400.0700 ####[facility] [address] [facility]. [place], [place], [phone] BAPJN-6-VVIC 0.3 g/dL Normal 0.0-0.4 [facility] Comment on above: Order Comment: Test( s) 044484-Tbexzh, Serum or Plasmawas developed and its performance characteristicsdetermined by [facility]. It has not been cleared or approvedby the Food and Drug Administration.N Performed By: #### L 3100.5440, L503.6550, L2100.0000, L803.2200, L3400.3800, L101.9900, L503.6030, L501.6710, L3100.3425, L3300.1200, L3300.0100, L3410.2350, L800.1280, L3000.0375, L3400.0700 ####[facility] [address] [facility], [address] FQZCD-0-JGBB 1.0 g/dL Normal 0.4-1.0 [facility] Comment on above: Order Comment: Test( s) 654818-Cixdqf, Serum or Plasmawas developed and its performance characteristicsdetermined by [facility]. It has not been cleared or approvedby the Food and Drug Administration.N Performed By: #### L 3100.5440, L503.6550, L2100.0000, L803.2200, L3400.3800, L101.9900, L503.6030, L501.6710, L3100.3425, L3300.1200, L3300.0100, L3410.2350, L800.1280, L3000.0375, L3400.0700 ####[facility] [address] [place], [address] BETA GLOBULIN 1.4 g/dL High 0.7-1.3 [facility] Comment on above: Order Comment: Test( s) 418156-Bcmztd, Serum or Plasmawas developed and its performance characteristicsdetermined by [facility]. It has not been cleared or approvedby the Food and Drug Administration.N Performed By: #### L 3100.5440, L503.6550, L2100.0000, L803.2200, L3400.3800, L101.9900, L503.6030, L501.6710, L3100.3425, L3300.1200, L3300.0100, L3410.2350, L800.1280, L3000.0375, L3400.0700 ####[facility] [address] [place], [address] GAMMA GLOBULIN 0.9 g/dL Normal 0.4-1.8 [facility] Comment on above: Order Comment: Test( s) 764716-Ncgxmf, Serum or Plasmawas developed and its performance characteristicsdetermined by [facility]. It has not been cleared or approvedby the Food and Drug Administration.N Performed By: #### L 3100.5440, L503.6550, L2100.0000, L803.2200, L3400.3800, L101.9900, L503.6030, L501.6710, L3100.3425, L3300.1200, L3300.0100, L3410.2350, L800.1280, L3000.0375, L3400.0700 ####[facility] [address] [place], [address] Globulin (S) [Mass/Vol] 3.7 g/dL Normal 2.2-3.9 [facility] Comment on above: Order Comment: Test( s) 681364-Dtjapz, Serum or Plasmawas developed and its performance characteristicsdetermined by [facility]. It has not been cleared or approvedby the Food and Drug Administration.N Performed By: #### L 3100.5440, L503.6550, L2100.0000, L803.2200, L3400.3800, L101.9900, L503.6030, L501.6710, L3100.3425, L3300.1200, L3300.0100, L3410.2350, L800.1280, L3000.0375, L3400.0700 ####[facility] [address] [place], [place], [phone] ELI RESULT,S Comment Abnormal . [facility] Comment on above: Order Comment: Test( s) 218460-Btbpqu, Serum or Plasmawas developed and its performance characteristicsdetermined by [facility]. It has not been cleared or approvedby the Food and Drug Administration.N Result Comment: Immu nofixation shows IgG monoclonal protein with kappalight chain specificity. PLEASE NOTE: Samples from patients receiving DARZALEX(R)(daratumumab) or SARCLISA(R)(isatuximab-[facility]) treatmentcan appear as an "IgG kappa" and mask a complete response(CR). If this patient is receiving these therapies, thisIFE assay interference can be removed by ordering testnumber 265515-"Immunofixation, Daratumumab-Specific,Serum" or 283564-"Immunofixation, Isatuximab-Specific,Serum" and submitting a new sample for testing or bycalling the lab to add this test to the current sample. Performed By: #### L 3100.5440, L503.6550, L2100.0000, L803.2200, L3400.3800, L101.9900, L503.6030, L501.6710, L3100.3425, L3300.1200, L3300.0100, L3410.2350, L800.1280, L3000.0375, L3400.0700 ####[facility] [address] [place], [place], [phone] IMMUNOGLOB A QN 457 mg/dL High 87-352 [facility] Comment on above: Order Comment: Test( s) 431325-Lezgwt, Serum or Plasmawas developed and its performance characteristicsdetermined by [facility]. It has not been cleared or approvedby the Food and Drug Administration.N Performed By: #### L 3100.5440, L503.6550, L2100.0000, L803.2200, L3400.3800, L101.9900, L503.6030, L501.6710, L3100.3425, L3300.1200, L3300.0100, L3410.2350, L800.1280, L3000.0375, L3400.0700 ####[facility] [address] [facility] [address] [place], [place], [phone](016) IMMUNOGLOB G QN 1075 mg/dL Normal 586-1602 [facility] Comment on above: Order Comment: Test( s) 362744-Cubauw, Serum or Plasmawas developed and its performance characteristicsdetermined by [facility]. It has not been cleared or approvedby the Food and Drug Administration.N Performed By: #### L 3100.5440, L503.6550, L2100.0000, L803.2200, L3400.3800, L101.9900, L503.6030, L501.6710, L3100.3425, L3300.1200, L3300.0100, L3410.2350, L800.1280, L3000.0375, L3400.0700 ####[facility] [address] [place], [place], [address]) IMMUNOGLOB M QN 30 mg/dL Normal 26-217 [facility] Comment on above: Order Comment: Test( s) 972442-Mqmzyt, Serum or Plasmawas developed and its performance characteristicsdetermined by [facility]. It has not been cleared or approvedby the Food and Drug Administration.N Performed By: #### L 3100.5440, L503.6550, L2100.0000, L803.2200, L3400.3800, L101.9900, L503.6030, L501.6710, L3100.3425, L3300.1200, L3300.0100, L3410.2350, L800.1280, L3000.0375, L3400.0700 ####[facility] [address] [place], [address] M-Min Comment: Normal Not Observed [facility] Comment on above: Order Comment: Test( s) 938752-Nhnmvm, Serum or Plasmawas developed and its performance characteristicsdetermined by [facility]. It has not been cleared or approvedby the Food and Drug Administration.N Result Comment: Due to the small quantity of monoclonal protein, unable toquantitate the M-spike. Performed By: #### L 3100.5440, L503.6550, L2100.0000, L803.2200, L3400.3800, L101.9900, L503.6030, L501.6710, L3100.3425, L3300.1200, L3300.0100, L3410.2350, L800.1280, L3000.0375, L3400.0700 ####[facility] [address] [place], [address] NOTE: Comment Normal . [facility] Comment on above: Order Comment: Test( s) 799531-Kzyjbi, Serum or Plasmawas developed and its performance characteristicsdetermined by [facility]. It has not been cleared or approvedby the Food and Drug Administration.N Result Comment: Prot ein electrophoresis scan will follow via computer,mail, or call or contact centre operator delivery. Performed By: #### L 3100.5440, L503.6550, L2100.0000, L803.2200, L3400.3800, L101.9900, L503.6030, L501.6710, L3100.3425, L3300.1200, L3300.0100, L3410.2350, L800.1280, L3000.0375, L3400.0700 ####[facility] [address] [place], [address] Protein [Mass/Vol] 6.9 g/dL Normal 6.0-8.5 [facility] Comment on above: Order Comment: Test( s) 004720-Ajqvum, Serum or Plasmawas developed and its performance characteristicsdetermined by [facility]. It has not been cleared or approvedby the Food and Drug Administration.N Performed By: #### L 3100.5440, L503.6550, L2100.0000, L803.2200, L3400.3800, L101.9900, L503.6030, L501.6710, L3100.3425, L3300.1200, L3300.0100, L3410.2350, L800.1280, L3000.0375, L3400.0700 ####[facility] [address] [place], [address] L2100.0000on 02-05-2024 ACCA 72 units Normal 0-90 [facility] Comment on above: Order Comment: Test( s) 280437-Fopbzi, Serum or Plasmawas developed and its performance characteristicsdetermined by [facility]. It has not been cleared or approvedby the Food and Drug Administration.N Result Comment: Nega tive: <80 Equivocal: 80-90 Positive: >90 Performed By: #### L 3100.5440, L503.6550, L2100.0000, L803.2200, L3400.3800, L101.9900, L503.6030, L501.6710, L3100.3425, L3300.1200, L3300.0100, L3410.2350, L800.1280, L3000.0375, L3400.0700 ####[facility] [address] [place], [address] ALCA 26 units Normal 0-60 [facility] Comment on above: Order Comment: Test( s) 912944-Kaugpl, Serum or Plasmawas developed and its performance characteristicsdetermined by [facility]. It has not been cleared or approvedby the Food and Drug Administration.N Result Comment: Nega tive:<55 Equivocal: 55-60 Positive: >60 Performed By: #### L 3100.5440, L503.6550, L2100.0000, L803.2200, L3400.3800, L101.9900, L503.6030, L501.6710, L3100.3425, L3300.1200, L3300.0100, L3410.2350, L800.1280, L3000.0375, L3400.0700 ####[facility] [address] [place], [place], [address] AMCA 144 units High 0-100 [facility] Comment on above: Order Comment: Test( s) 242300-Eaplsj, Serum or Plasmawas developed and its performance characteristicsdetermined by [facility]. It has not been cleared or approvedby the Food and Drug Administration.N Result Comment: Nega tive: <90 Equivocal: 90-100 Positive: >100 This test was developed and its performance characteristics determined by [facility]. It has not been cleared or approved by the Food and Drug Administration. The FDA has determined that such clearance or approval is not necessary. Performed By: #### L 3100.5440, L503.6550, L2100.0000, L803.2200, L3400.3800, L101.9900, L503.6030, L501.6710, L3100.3425, L3300.1200, L3300.0100, L3410.2350, L800.1280, L3000.0375, L3400.0700 ####[facility] [address] [facility] [address] [place], [place], [address] Atypical pANCA Negative Normal Negative [facility] Comment on above: Order Comment: Test( s) 967076-Oyijnd, Serum or Plasmawas developed and its performance characteristicsdetermined by [facility]. It has not been cleared or approvedby the Food and Drug Administration.N Performed By: #### L 3100.5440, L503.6550, L2100.0000, L803.2200, L3400.3800, L101.9900, L503.6030, L501.6710, L3100.3425, L3300.1200, L3300.0100, L3410.2350, L800.1280, L3000.0375, L3400.0700 ####[facility] [address] [place], [address] COMMENT Comment Normal . [facility] Comment on above: Order Comment: Test( s) 458707-Cvplnw, Serum or Plasmawas developed and its performance characteristicsdetermined by [facility]. It has not been cleared or approvedby the Food and Drug Administration.N Result Comment: Sugg estive of Crohn's Disease. Pattern is not conclusivefor disease behavior risk stratification. Performed By: #### L 3100.5440, L503.6550, L2100.0000, L803.2200, L3400.3800, L101.9900, L503.6030, L501.6710, L3100.3425, L3300.1200, L3300.0100, L3410.2350, L800.1280, L3000.0375, L3400.0700 ####[facility] [address] [place], [address] Result Comment: Not infected with HCV unless early or acute infection issuspected (which may be delayed in an immunocompromisedindividual), or other evidence exists to indicate HCVinfection. Diane 15 units Normal 0-50 [facility] Comment on above: Order Comment: Test( s) 744800-Vygxkj, Serum or Plasmawas developed and its performance characteristicsdetermined by [facility]. It has not been cleared or approvedby the Food and Drug Administration.N Result Comment: Nega tive: <45 Equivocal: 45-50 Positive: >50 Performed By: #### L 3100.5440, L503.6550, L2100.0000, L803.2200, L3400.3800, L101.9900, L503.6030, L501.6710, L3100.3425, L3300.1200, L3300.0100, L3410.2350, L800.1280, L3000.0375, L3400.0700 ####[facility] [address] [place], [place], [phone] Transferrinon 02-05-2024 Transferrin [Mass/Vol] 290 mg/dL Normal 192-364 [facility] Comment on above: Order Comment: Test( s) 639053-Wglfwe, Serum or Plasmawas developed and its performance characteristicsdetermined by [facility]. It has not been cleared or approvedby the Food and Drug Administration.N Result Comment: Perf ormed at: [facility] [address] [id number] Director: Luis Felipe Wong PhD, Phone: [phone] at: [facility] [address] [id number] Director: Aurelia Child MD, Phone: [phone] Performed By: #### L 3100.5440, L503.6550, L2100.0000, L803.2200, L3400.3800, L101.9900, L503.6030, L501.6710, L3100.3425, L3300.1200, L3300.0100, L3410.2350, L800.1280, L3000.0375, L3400.0700 ####[facility] [address] [place], [place], [phone] MARITZA Comprehensive Panelon MARITZA TABLE Comment Normal . [facility] Comment on above: Result Comment: Auto antibody Disease Association -------- Condition Frequency ---------Antinuclear Antibody, SLE, mixed connectiveDirect (MARITZA-D) tissue diseases ---------dsDNA SLE 40 - 60% ---------Chromatin Drug induced SLE 90% SLE 48 - 97% ---------SSA (Ro) SLE 25 - 35% Sjogren's Syndrome 40 - 70% Lupus 100% ---------SSB (La) SLE 10% Sjogren's Syndrome 30% ---------Sm (anti-Rivera) SLE 15 - 30% ---------DIAMOND MOUNTER Mixed Connective Tissue Disease 95%(U1 nRNP, SLE 30 - 50%anti-ribonucleoprotein) Polymyositis and/or Dermatomyositis 20% ---------Scl-70 (antiDNA Scleroderma (diffuse) 20 - 35%topoisomerase) Crest 13% ---------Dinah-1 Polymyositis and/or Dermatomyositis 20 - 40% ---------Centromere B Scleroderma - Crest variant 80% Performed By: #### L 3100.5440, L503.6550, L2100.0000, L803.2200, L3400.3800, L101.9900, L503.6030, L501.6710, L3100.3425, L3300.1200, L3300.0100, L3410.2350, L800.1280, L3000.0375, L3400.0700 ####[facility] [address] [facility] [place], [place], [phone] ANTI-CENT B AB <0.2 Normal 0.0-0.9 [facility] Comment on above: Performed By: #### L 3100.5440, L503.6550, L2100.0000, L803.2200, L3400.3800, L101.9900, L503.6030, L501.6710, L3100.3425, L3300.1200, L3300.0100, L3410.2350, L800.1280, L3000.0375, L3400.0700 ####[facility] [address] [place], [place], [id number] ANTI-DNA (DS)AB <1 Normal 0-9 [facility] Comment on above: Result Comment: Nega tive <5 Equivocal 5 - 9 Positive >9 Performed By: #### L 3100.5440, L503.6550, L2100.0000, L803.2200, L3400.3800, L101.9900, L503.6030, L501.6710, L3100.3425, L3300.1200, L3300.0100, L3410.2350, L800.1280, L3000.0375, L3400.0700 ####[facility] [address] [place], [place], [id number] ANTI-DINAH-1 <0.2 Normal 0.0-0.9 [facility] Comment on above: Performed By: #### L 3100.5440, L503.6550, L2100.0000, L803.2200, L3400.3800, L101.9900, L503.6030, L501.6710, L3100.3425, L3300.1200, L3300.0100, L3410.2350, L800.1280, L3000.0375, L3400.0700 ####[facility] [address] [place], [address] ANTI-SS-A < 0.2 Normal 0.0-0.9 [facility] Comment on above: Performed By: #### L 3100.5440, L503.6550, L2100.0000, L803.2200, L3400.3800, L101.9900, L503.6030, L501.6710, L3100.3425, L3300.1200, L3300.0100, L3410.2350, L800.1280, L3000.0375, L3400.0700 ####[facility] [address] [place], [address] ANTI-SS-B < 0.2 Normal 0.0-0.9 [facility] Comment on above: Performed By: #### L 3100.5440, L503.6550, L2100.0000, L803.2200, L3400.3800, L101.9900, L503.6030, L501.6710, L3100.3425, L3300.1200, L3300.0100, L3410.2350, L800.1280, L3000.0375, L3400.0700 ####[facility] [address] [place], [address] ANTICHROMATIN <0.2 Normal 0.0-0.9 [facility] Comment on above: Performed By: #### L 3100.5440, L503.6550, L2100.0000, L803.2200, L3400.3800, L101.9900, L503.6030, L501.6710, L3100.3425, L3300.1200, L3300.0100, L3410.2350, L800.1280, L3000.0375, L3400.0700 ####[facility] [address] [place], [place], [id number] ANTISCLERODERM <0.2 Normal 0.0-0.9 [facility] Comment on above: Performed By: #### L 3100.5440, L503.6550, L2100.0000, L803.2200, L3400.3800, L101.9900, L503.6030, L501.6710, L3100.3425, L3300.1200, L3300.0100, L3410.2350, L800.1280, L3000.0375, L3400.0700 ####[facility] [address] [place], [address] DIAMOND MOUNTER Ab <0.2 Normal 0.0-0.9 [facility] Comment on above: Performed By: #### L 3100.5440, L503.6550, L2100.0000, L803.2200, L3400.3800, L101.9900, L503.6030, L501.6710, L3100.3425, L3300.1200, L3300.0100, L3410.2350, L800.1280, L3000.0375, L3400.0700 ####[facility] [address] [place], [address] RIVERA Ab <0.2 Normal 0.0-0.9 [facility] Comment on above: Performed By: #### L 3100.5440, L503.6550, L2100.0000, L803.2200, L3400.3800, L101.9900, L503.6030, L501.6710, L3100.3425, L3300.1200, L3300.0100, L3410.2350, L800.1280, L3000.0375, L3400.0700 ####[facility] [address] [place], [place], [phone] Anti-Mitochondrial ABon 08-0 ANTIMITOCHON AB <20.0 Normal 0.0-20.0 [facility] Comment on above: Result Comment: Nega tive 0.0 - 20.0 Equivocal 20.1 - 24.9 Positive >24.9Mitochondrial (M2) Antibodies are found in 90-96% ofpatients with primary biliary cirrhosis.Performed at: [facility] [address] [id number] Director: Luis Felipe Wong PhD, Phone: [phone] Performed By: #### L 3100.5440, L503.6550, L2100.0000, L803.2200, L3400.3800, L101.9900, L503.6030, L501.6710, L3100.3425, L3300.1200, L3300.0100, L3410.2350, L800.1280, L3000.0375, L3400.0700 ####[facility] [address] [place], [place], [phone] 12 Lead EKGon 01-31-2024 12 Lead EKG Normal [facility] Abdomen Limitedon 01-31-2024 Abdomen Limited Normal [facility] Bedside Glucoseon 01-31-2024 FINGERSTICK GLU 225 mg/dL High 74-106 [facility] Comment on above: Result Comment: SARA GEMENT OF PATIENT CARE PER NURSING PROTOCOL Performed By: #### L 501.080 ####[facility] [address] [place], [place], [phone] FINGERSTICK GLU 118 mg/dL High 74-106 [facility] Comment on above: Result Comment: SARA GEMENT OF PATIENT CARE PER NURSING PROTOCOL Performed By: #### L 501.080 ####[facility] [address] [place], [address] FINGERSTICK GLU 126 mg/dL High 74-106 [facility] Comment on above: Result Comment: SARA GEMENT OF PATIENT CARE PER NURSING PROTOCOL Performed By: #### L 501.080 ####[facility] [address] [place], [address] FINGERSTICK GLU 115 mg/dL High 74-106 [facility] Comment on above: Result Comment: SARA GEMENT OF PATIENT CARE PER NURSING PROTOCOL Performed By: #### L 501.080 ####[facility] [address] [place], [address] CRPon 01-31-2024 C-REACTIVE PROT 11.80 mg/L High 0.0-3.0 [facility] Comment on above: Result Comment: C-Re active Protein (CRP) provides useful information for thediagnosis, therapy and monitoring of inflammatory processesand associated diseases. For the evaluation of Relative Riskfor Cardiovascular Disease, a High Sensitivity CRP (HSCRP)should be ordered. Performed By: #### L 3100.5440, L503.6550, L2100.0000, L803.2200, L3400.3800, L101.9900, L503.6030, L501.6710, L3100.3425, L3300.1200, L3300.0100, L3410.2350, L800.1280, L3000.0375, L3400.0700 ####[facility] [address] [place], [address] Discharge Instructionon 080 Discharge Instruction Normal [facility] EGD Reporton 01-31-2024 EGD Report Normal [facility] Erythrocyte Sed Rateon 01-30 SED RATE 38 mm/hr High 0-30 [facility] Comment on above: Performed By: #### L 3100.5440, L503.6550, L2100.0000, L803.2200, L3400.3800, L101.9900, L503.6030, L501.6710, L3100.3425, L3300.1200, L3300.0100, L3410.2350, L800.1280, L3000.0375, L3400.0700 ####[facility] [address] [place], [place], [phone]) Ferritinon 01-31-2024 Ferritin [Mass/Vol] 72 ng/mL Normal 8-252 [facility] Comment on above: Performed By: #### L 3100.5440, L503.6550, L2100.0000, L803.2200, L3400.3800, L101.9900, L503.6030, L501.6710, L3100.3425, L3300.1200, L3300.0100, L3410.2350, L800.1280, L3000.0375, L3400.0700 ####[facility] [address] [place], [place], [phone] H Pylori (initial)on 024 H Pylori (initial) Normal [facility] Comment on above: Performed By: #### P H.PYLORI ####[facility] [address] [place], [place], [phone] Iron+Iron Binding Capacityon 01-31-2024 Iron [Mass/Vol] 44 ug/dL Low 50-170 [facility] Comment on above: Performed By: #### L 3100.5440, L503.6550, L2100.0000, L803.2200, L3400.3800, L101.9900, L503.6030, L501.6710, L3100.3425, L3300.1200, L3300.0100, L3410.2350, L800.1280, L3000.0375, L3400.0700 ####[facility] [address] [place], [address](206) IRON SATURATION 12.2 Low 15.0-55.0 [facility] Comment on above: Performed By: #### L 3100.5440, L503.6550, L2100.0000, L803.2200, L3400.3800, L101.9900, L503.6030, L501.6710, L3100.3425, L3300.1200, L3300.0100, L3410.2350, L800.1280, L3000.0375, L3400.0700 ####[facility] [address] [place], [address] TIBC 362 ug/dL Normal 250-450 [facility] Comment on above: Performed By: #### L 3100.5440, L503.6550, L2100.0000, L803.2200, L3400.3800, L101.9900, L503.6030, L501.6710, L3100.3425, L3300.1200, L3300.0100, L3410.2350, L800.1280, L3000.0375, L3400.0700 ####[facility] [address] [place], [place], [id number] MR/POSTOP.ANEon 01-31-2024 MR/POSTOP.ANE Normal [facility] MR/BMOEEKAY9zz 01-31-2024 MR/POSTOPAN2 Normal [facility] Surgery Specimen Level Evita 01-31-2024 Surgery Specimen Level IV Normal [facility] Comment on above: Performed By: #### P SUIV ####[facility] [address] [place], [place], [phone] Thyroid Stim Hormone (TSH)on 01-31-2024 TSH 0.16 uIU/mL Low 0.358-3.74 [facility] Comment on above: Performed By: #### L 501.9520 ####[facility] [address] [place], [place], [phone] Bedside Glucoseon 01-30-2024 FINGERSTICK GLU 116 mg/dL High 74-106 [facility] Comment on above: Result Comment: SARA GEMENT OF PATIENT CARE PER NURSING PROTOCOL Performed By: #### L 501.080 ####[facility] [address] [place], [address] FINGERSTICK GLU 126 mg/dL High 74-106 [facility] Comment on above: Result Comment: SARA GEMENT OF PATIENT CARE PER NURSING PROTOCOL Performed By: #### L 501.080 ####[facility] [address] [place], [address] FINGERSTICK GLU 109 mg/dL High 74-106 [facility] Comment on above: Result Comment: SARA GEMENT OF PATIENT CARE PER NURSING PROTOCOL Performed By: #### L 501.080 ####[facility] [address] [place], [address] Bedside Glucoseon 01-29-2024 FINGERSTICK GLU 109 mg/dL High 74-106 [facility] Comment on above: Result Comment: SARA GEMENT OF PATIENT CARE PER NURSING PROTOCOL Performed By: #### L 501.080 ####[facility] [address] [place], [address] FINGERSTICK GLU 116 mg/dL High 74-106 [facility] Comment on above: Result Comment: SARA GEMENT OF PATIENT CARE PER NURSING PROTOCOL Performed By: #### L 501.080 ####[facility] [address] [place], [address] FINGERSTICK GLU 98 mg/dL Normal 74-106 [facility] Comment on above: Result Comment: SARA GEMENT OF PATIENT CARE PER NURSING PROTOCOL Performed By: #### L 501.080 ####[facility] [address] [place], [address] CBC W/Diff, Automatedon 08-0 Absolute Lymph 1.14 X10 3/uL Normal 0.83-4.51 [facility] Comment on above: Performed By: #### L 500.4050, L100.0100 ####[facility] [address] [place], [address] Absolute Neut 4.5 X10 3/uL Normal 2.0-7.7 [facility] Comment on above: Performed By: #### L 500.4050, L100.0100 ####[facility] [address] [place], [address] Basophils/100 WBC (Bld) 0.5 % Normal 0-1 [facility] Comment on above: Performed By: #### L 500.4050, L100.0100 ####[facility] [address] [place], [address] Eosinophils/100 WBC (Bld) 3.8 % Normal 0-5 [facility] Comment on above: Performed By: #### L 500.4050, L100.0100 ####[facility] [address] [place], [address] Erythrocyte distribution width (RBC) [Ratio] 14.6 % Normal 11.6-14.6 [facility] Comment on above: Performed By: #### L 500.4050, L100.0100 ####[facility] [address] [place], [address] Hematocrit (Bld) [Volume fraction] 44.4 % Normal 37-47 [facility] Comment on above: Performed By: #### L 500.4050, L100.0100 ####[facility] [address] [place], [address] Hemoglobin (Bld) [Mass/Vol] 13.9 g/dL Normal 12.0-15.0 [facility] Comment on above: Performed By: #### L 500.4050, L100.0100 ####[facility] [address] [place], [address] IG% 0.200 Normal 0.0-0.9 [facility] Comment on above: Result Comment: IG% - Immature Granulocytes (promyelocytes, myelocytes andmetamyelocytes) > 1% indicates that a LEFT SHIFT is Present. Performed By: #### L 500.4050, L100.0100 ####[facility] [address] [place], [address] Lymphocytes/100 WBC (Bld) 17.9 % Low 19-41 [facility] Comment on above: Performed By: #### L 500.4050, L100.0100 ####[facility] [address] [place], [address] MCH (RBC) [Entitic mass] 27.7 pg Normal 27.0-32.0 [facility] Comment on above: Performed By: #### L 500.4050, L100.0100 ####[facility] [address] [place], [address] MCHC (RBC) [Mass/Vol] 31.3 g/dL Low 32-36 [facility] Comment on above: Performed By: #### L 500.4050, L100.0100 ####[facility] [address] [place], [address] MCV (RBC) [Entitic vol] 88.6 fL Normal 81-99 [facility] Comment on above: Performed By: #### L 500.4050, L100.0100 ####[facility] [address] [place], [address] Monocytes/100 WBC (Bld) 6.9 % Normal 0-10 [facility] Comment on above: Performed By: #### L 500.4050, L100.0100 ####[facility] [address] [place], [address] Neutrophils/100 WBC (Bld) 70.7 % High 47-70 [facility] Comment on above: Performed By: #### L 500.4050, L100.0100 ####[facility] [address] [place], [address] Nucleated RBC (Bld) [#/Vol] 0 10*3/uL Normal 0-5 [facility] Comment on above: Performed By: #### L 500.4050, L100.0100 ####[facility] [address] [place], [address] Platelet mean volume (Bld) [Entitic vol] 9.8 fL Normal 6.2-12.0 [facility] Comment on above: Performed By: #### L 500.4050, L100.0100 ####[facility] [address] [place], [address] Platelets (Bld) [#/Vol] 164 10*3/uL Normal 150-450 [facility] Comment on above: Performed By: #### L 500.4050, L100.0100 ####[facility] [address] [place], [address] RBC (Bld) [#/Vol] 5.01 10*6/uL Normal 4.2-5.4 [facility] Comment on above: Performed By: #### L 500.4050, L100.0100 ####[facility] [address] [place], [address] RDW SD 46.6 fl High 35.1-43.9 [facility] Comment on above: Performed By: #### L 500.4050, L100.0100 ####[facility] [address] [place], [address] WBC (Bld) [#/Vol] 6.4 10*3/uL Normal 4.4-11.0 [facility] Comment on above: Performed By: #### L 500.4050, L100.0100 ####[facility] [address] [place], [address] Comprehensive Metabolic Prof ilon 01-29-2024 Albumin [Mass/Vol] 2.8 g/dL Low 3.2-5.0 [facility] Comment on above: Performed By: #### L 500.4050, L100.0100 ####[facility] [address] [place], [address] Albumin/Globulin [Mass ratio] 0.7 {ratio} Low 0.9-2.4 [facility] Comment on above: Performed By: #### L 500.4050, L100.0100 ####[facility] [address] [place], [address] ALK P 82 U/L Normal 45-117 [facility] Comment on above: Performed By: #### L 500.4050, L100.0100 ####[facility] [address] [place], [address] ALT [Catalytic activity/Vol] 13 U/L Normal 13-56 [facility] Comment on above: Performed By: #### L 500.4050, L100.0100 ####[facility] [address] [place], [address] AST [Catalytic activity/Vol] 13 U/L Low 15-37 [facility] Comment on above: Performed By: #### L 500.4050, L100.0100 ####[facility] [address] [place], [address] Bilirubin [Mass/Vol] 0.30 mg/dL Normal 0.20-1.00 [facility] Comment on above: Result Comment: For patients on eltrombopag therapy, use of [facility] [place] TBIL is not recommended. Performed By: #### L 500.4050, L100.0100 ####[facility] [address] [place], [address] BUN/CRE 31.2 RATIO High 10-20 [facility] Comment on above: Performed By: #### L 500.4050, L100.0100 ####[facility] [address] [place], [address] CA,Total 8.7 mg/dL Normal 8.5-10.1 [facility] Comment on above: Performed By: #### L 500.4050, L100.0100 ####[facility] [address] [place], [address] Chloride [Moles/Vol] 110 mmol/L High 98-107 [facility] Comment on above: Performed By: #### L 500.4050, L100.0100 ####[facility] [address] [place], [address] CO2 [Moles/Vol] 24.0 mmol/L Normal 21.0-32.0 [facility] Comment on above: Performed By: #### L 500.4050, L100.0100 ####[facility] [address] [place], [address] Creatinine [Mass/Vol] 0.45 mg/dL Low 0.55-1.02 [facility] Comment on above: Result Comment: The validity of the calculated GFR GFRAA in patients over70 years has not been determined. Clinical correlation isessential. Performed By: #### L 500.4050, L100.0100 ####[facility] [address] [place], [address] ECRCL 145.23 ml/min Normal [facility] Comment on above: Performed By: #### L 500.4050, L100.0100 ####[facility] [address] [place], [address] EST GFR - AA 183 mL/min Normal >60 [facility] Comment on above: Result Comment: Afri can Kuwaiti GFR Calc Performed By: #### L 500.4050, L100.0100 ####[facility] [address] [place], [address] GAP 5 Normal 5-15 [facility] Comment on above: Performed By: #### L 500.4050, L100.0100 ####[facility] [address] [place], [address] GFR/1.73 sq M.predicted among non-blacks MDRD (S/P/Bld) [Vol rate/Area] 152 mL/min/{1.73_m2} Normal >60 [facility] Comment on above: Result Comment: Non- GFR Calc Performed By: #### L 500.4050, L100.0100 ####[facility] [address] [place], [address] Globulin (S) [Mass/Vol] 3.9 g/dL Normal 2.2-4.2 [facility] Comment on above: Performed By: #### L 500.4050, L100.0100 ####[facility] [address] [place], [address] Glucose [Mass/Vol] 127 mg/dL High 74-106 [facility] Comment on above: Result Comment: Fast ing Glucose result greater than or equal to 126 mg/dLsuggests DIABETES MELLITUS per A.D.A. criteria. Performed By: #### L 500.4050, L100.0100 ####[facility] [address] [place], [address] Potassium [Moles/Vol] 3.6 mmol/L Normal 3.5-5.1 [facility] Comment on above: Performed By: #### L 500.4050, L100.0100 ####[facility] [address] [place], [address] Sodium [Moles/Vol] 139 mmol/L Normal 136-145 [facility] Comment on above: Performed By: #### L 500.4050, L100.0100 ####[facility] [address] [place], [address] T PROT 6.7 g/dL Normal 6.4-8.2 [facility] Comment on above: Performed By: #### L 500.4050, L100.0100 ####[facility] [address] [place], [address] Urea nitrogen [Mass/Vol] 14 mg/dL Normal 7-18 [facility] Comment on above: Performed By: #### L 500.4050, L100.0100 ####[facility] [address] [place], [address] MR/PN.GIon 01-29-2024 MR/PN.GI Normal [facility] Abdomen/Pelvis W IV Cont ONL Yon 01-28-2024 Abdomen/Pelvis W IV Cont ONLY Normal [facility] Basic Metabolic Profile (BMP )on 01-28-2024 BUN/CRE 29.2 RATIO High 10-20 [facility] Comment on above: Performed By: #### L 500.3400, L501.2450, L100.0100, L500.2500 ####[facility] [address] [place], [address] CA,Total 9.3 mg/dL Normal 8.5-10.1 [facility] Comment on above: Performed By: #### L 500.3400, L501.2450, L100.0100, L500.2500 ####[facility] [address] [place], [address] Chloride [Moles/Vol] 107 mmol/L Normal 98-107 [facility] Comment on above: Performed By: #### L 500.3400, L501.2450, L100.0100, L500.2500 ####[facility] [address] [place], [address] CO2 [Moles/Vol] 25.0 mmol/L Normal 21.0-32.0 [facility] Comment on above: Performed By: #### L 500.3400, L501.2450, L100.0100, L500.2500 ####[facility] [address] [place], [address] Creatinine [Mass/Vol] 0.72 mg/dL Normal 0.55-1.02 [facility] Comment on above: Result Comment: The validity of the calculated GFR GFRAA in patients over70 years has not been determined. Clinical correlation isessential. Performed By: #### L 500.3400, L501.2450, L100.0100, L500.2500 ####[facility] [address] [place], [address] ECRCL 90.98 ml/min Normal [facility] Comment on above: Performed By: #### L 500.3400, L501.2450, L100.0100, L500.2500 ####[facility] [address] [place], [address] EST GFR - AA 106 mL/min Normal >60 [facility] Comment on above: Result Comment: Afri can [place]i GFR Calc Performed By: #### L 500.3400, L501.2450, L100.0100, L500.2500 ####[facility] [address] [place], [address] GAP 6 Normal 5-15 [facility] Comment on above: Performed By: #### L 500.3400, L501.2450, L100.0100, L500.2500 ####[facility] [address] [place], [address] GFR/1.73 sq M.predicted among non-blacks MDRD (S/P/Bld) [Vol rate/Area] 88 mL/min/{1.73_m2} Normal >60 [facility] Comment on above: Result Comment: Non- GFR Calc Performed By: #### L 500.3400, L501.2450, L100.0100, L500.2500 ####[facility] [address] [place], [address] Glucose [Mass/Vol] 178 mg/dL High 74-106 [facility] Comment on above: Result Comment: Fast ing Glucose result greater than or equal to 126 mg/dLsuggests DIABETES MELLITUS per A.D.A. criteria. Performed By: #### L 500.3400, L501.2450, L100.0100, L500.2500 ####[facility] [address] [place], [address] Potassium [Moles/Vol] 3.6 mmol/L Normal 3.5-5.1 [facility] Comment on above: Performed By: #### L 500.3400, L501.2450, L100.0100, L500.2500 ####[facility] [address] [place], [address] Sodium [Moles/Vol] 138 mmol/L Normal 136-145 [facility] Comment on above: Performed By: #### L 500.3400, L501.2450, L100.0100, L500.2500 ####[facility] [address] [place], [address] Urea nitrogen [Mass/Vol] 21 mg/dL High 7-18 [facility] Comment on above: Performed By: #### L 500.3400, L501.2450, L100.0100, L500.2500 ####[facility] [address] [place], [address] Bedside Glucoseon 01-28-2024 FINGERSTICK GLU 106 mg/dL Normal 74-106 [facility] Comment on above: Result Comment: SARA HURTADO OF PATIENT CARE PER NURSING PROTOCOL Performed By: #### L 501.080 ####[facility] [address] [place], [address] FINGERSTICK GLU 106 mg/dL Normal 74-106 [facility] Comment on above: Result Comment: SARA GEMENT OF PATIENT CARE PER NURSING PROTOCOL Performed By: #### L 501.080 ####[facility] [address] [place], [address] FINGERSTICK GLU 106 mg/dL Normal 74-106 [facility] Comment on above: Result Comment: SARA GEMENT OF PATIENT CARE PER NURSING PROTOCOL Performed By: #### L 501.080 ####[facility] [address] [place], [address] FINGERSTICK GLU 141 mg/dL High 74-106 [facility] Comment on above: Result Comment: SARA GEMENT OF PATIENT CARE PER NURSING PROTOCOL Performed By: #### L 501.080 ####[facility] [address] [place], [address] CBC W/Diff, Automatedon 08-0 2-2024 Absolute Lymph 2.40 X10 3/uL Normal 0.83-4.51 [facility] Comment on above: Performed By: #### L 500.3400, L501.2450, L100.0100, L500.2500 ####[facility] [address] [place], [address] Absolute Neut 6.8 X10 3/uL Normal 2.0-7.7 [facility] Comment on above: Performed By: #### L 500.3400, L501.2450, L100.0100, L500.2500 ####[facility] [address] [place], [address] Basophils/100 WBC (Bld) 0.7 % Normal 0-1 [facility] Comment on above: Performed By: #### L 500.3400, L501.2450, L100.0100, L500.2500 ####[facility] [address] [place], [address] Eosinophils/100 WBC (Bld) 3.1 % Normal 0-5 [facility] Comment on above: Performed By: #### L 500.3400, L501.2450, L100.0100, L500.2500 ####[facility] [address] [place], [address] Erythrocyte distribution width (RBC) [Ratio] 14.8 % High 11.6-14.6 [facility] Comment on above: Performed By: #### L 500.3400, L501.2450, L100.0100, L500.2500 ####[facility] [address] [place], [address] Hematocrit (Bld) [Volume fraction] 49.3 % High 37-47 [facility] Comment on above: Performed By: #### L 500.3400, L501.2450, L100.0100, L500.2500 ####[facility] [address] [place], [address] Hemoglobin (Bld) [Mass/Vol] 15.8 g/dL High 12.0-15.0 [facility] Comment on above: Performed By: #### L 500.3400, L501.2450, L100.0100, L500.2500 ####[facility] [address] [place], [address] IG% 0.300 Normal 0.0-0.9 [facility] Comment on above: Result Comment: IG% - Immature Granulocytes (promyelocytes, myelocytes andmetamyelocytes) > 1% indicates that a LEFT SHIFT is Present. Performed By: #### L 500.3400, L501.2450, L100.0100, L500.2500 ####[facility] [address] [place], [address] Lymphocytes/100 WBC (Bld) 23.0 % Normal 19-41 [facility] Comment on above: Performed By: #### L 500.3400, L501.2450, L100.0100, L500.2500 ####[facility] [address] [place], [address] MCH (RBC) [Entitic mass] 28.1 pg Normal 27.0-32.0 [facility] Comment on above: Performed By: #### L 500.3400, L501.2450, L100.0100, L500.2500 ####[facility] [address] [place], [address] MCHC (RBC) [Mass/Vol] 32.0 g/dL Normal 32-36 [facility] Comment on above: Performed By: #### L 500.3400, L501.2450, L100.0100, L500.2500 ####[facility] [address] [place], [address] MCV (RBC) [Entitic vol] 87.6 fL Normal 81-99 [facility] Comment on above: Performed By: #### L 500.3400, L501.2450, L100.0100, L500.2500 ####[facility] [address] [place], [address] Monocytes/100 WBC (Bld) 7.5 % Normal 0-10 [facility] Comment on above: Performed By: #### L 500.3400, L501.2450, L100.0100, L500.2500 ####[facility] [address] [place], [address] Neutrophils/100 WBC (Bld) 65.4 % Normal 47-70 [facility] Comment on above: Performed By: #### L 500.3400, L501.2450, L100.0100, L500.2500 ####[facility] [address] [place], [address] Nucleated RBC (Bld) [#/Vol] 0 10*3/uL Normal 0-5 [facility] Comment on above: Performed By: #### L 500.3400, L501.2450, L100.0100, L500.2500 ####[facility] [address] [place], [address] Platelet mean volume (Bld) [Entitic vol] 10.0 fL Normal 6.2-12.0 [facility] Comment on above: Performed By: #### L 500.3400, L501.2450, L100.0100, L500.2500 ####[facility] [address] [place], [address] Platelets (Bld) [#/Vol] 200 10*3/uL Normal 150-450 [facility] Comment on above: Performed By: #### L 500.3400, L501.2450, L100.0100, L500.2500 ####[facility] [address] [place], [address] RBC (Bld) [#/Vol] 5.63 10*6/uL High 4.2-5.4 [facility] Comment on above: Performed By: #### L 500.3400, L501.2450, L100.0100, L500.2500 ####[facility] [address] [place], [address] RDW SD 47.0 fl High 35.1-43.9 [facility] Comment on above: Performed By: #### L 500.3400, L501.2450, L100.0100, L500.2500 ####[facility] [address] [place], [address] WBC (Bld) [#/Vol] 10.4 10*3/uL Normal 4.4-11.0 [facility] Comment on above: Performed By: #### L 500.3400, L501.2450, L100.0100, L500.2500 ####[facility] [address] [place], [address] Emergency Department Summary on 01-28-2024 Emergency Department Summary Normal [facility] H AND P Exam - Hospitaliston 01-28-2024 H&P Exam - Hospitalist Normal [facility] Lipaseon 01-28-2024 Lipase [Catalytic activity/Vol] U/L High 13-75 [facility] Comment on above: Result Comment: Buck truong note:LIPASE revised reference range effective 22.New Lipase methodology. Expected to produce lower valuesthan the previous assay method.NEW Reference Range: 13 - 75 U/L Performed By: #### L 500.3400, L501.2450, L100.0100, L500.2500 ####[facility] [address] [place], [address] Liver Profileon 01-28-2024 Albumin [Mass/Vol] 3.5 g/dL Normal 3.2-5.0 [facility] Comment on above: Performed By: #### L 500.3400, L501.2450, L100.0100, L500.2500 ####[facility] [address] [place], [address] ALK P 99 U/L Normal 45-117 [facility] Comment on above: Performed By: #### L 500.3400, L501.2450, L100.0100, L500.2500 ####[facility] [address] [place], [address] ALT [Catalytic activity/Vol] 15 U/L Normal 13-56 [facility] Comment on above: Performed By: #### L 500.3400, L501.2450, L100.0100, L500.2500 ####[facility] [address] [place], [address] AST [Catalytic activity/Vol] 12 U/L Low 15-37 [facility] Comment on above: Performed By: #### L 500.3400, L501.2450, L100.0100, L500.2500 ####[facility] [address] [place], [address] Bilirubin [Mass/Vol] 0.40 mg/dL Normal 0.20-1.00 [facility] Comment on above: Result Comment: For patients on eltrombopag therapy, use of Dimension [place] TBIL is not recommended. Performed By: #### L 500.3400, L501.2450, L100.0100, L500.2500 ####[facility] [address] [place], [address] Bilirubin.direct [Mass/Vol] 0.11 mg/dL Normal 0.00-0.30 [facility] Comment on above: Performed By: #### L 500.3400, L501.2450, L100.0100, L500.2500 ####[facility] [address] [place], [address] Globulin (S) [Mass/Vol] 4.4 g/dL High 2.2-4.2 [facility] Comment on above: Performed By: #### L 500.3400, L501.2450, L100.0100, L500.2500 ####[facility] [address] [place], [address] T PROT 7.9 g/dL Normal 6.4-8.2 [facility] Comment on above: Performed By: #### L 500.3400, L501.2450, L100.0100, L500.2500 ####[facility] [address] [place], [address] MR/CON.PCM.GIon 01-28-2024 MR/CON.PCM.GI Normal [facility] MRCP Abdomen without Contras ton 01-28-2024 MRCP Abdomen without Contrast Normal [facility] CBC W/Diff, Automatedon 06-2 0-2023 Absolute Lymph 2.43 X10 3/uL Normal 0.83-4.51 [facility] Comment on above: Performed By: #### L 500.4050, L100.0100 ####[facility] [address] [place], [address] Absolute Neut 4.5 X10 3/uL Normal 2.0-7.7 [facility] Comment on above: Performed By: #### L 500.4050, L100.0100 ####[facility] [address] [place], [address] Basophils/100 WBC (Bld) 0.9 % Normal 0-1 [facility] Comment on above: Performed By: #### L 500.4050, L100.0100 ####[facility] [address] [place], [address] Eosinophils/100 WBC (Bld) 4.4 % Normal 0-5 [facility] Comment on above: Performed By: #### L 500.4050, L100.0100 ####[facility] [address] [place], [address] Erythrocyte distribution width (RBC) [Ratio] 14.8 % High 11.6-14.6 [facility] Comment on above: Performed By: #### L 500.4050, L100.0100 ####[facility] [address] [place], [address] Hematocrit (Bld) [Volume fraction] 49.1 % High 37-47 [facility] Comment on above: Performed By: #### L 500.4050, L100.0100 ####[facility] [address] [place], [address] Hemoglobin (Bld) [Mass/Vol] 15.7 g/dL High 12.0-15.0 [facility] Comment on above: Performed By: #### L 500.4050, L100.0100 ####[facility] [address] [place], [address] IG% 0.400 Normal 0.0-0.9 [facility] Comment on above: Result Comment: IG% - Immature Granulocytes (promyelocytes, myelocytes andmetamyelocytes) > 1% indicates that a LEFT SHIFT is Present. Performed By: #### L 500.4050, L100.0100 ####[facility] [address] [place], [address] Lymphocytes/100 WBC (Bld) 30.9 % Normal 19-41 [facility] Comment on above: Performed By: #### L 500.4050, L100.0100 ####[facility] [address] [place], [address] MCH (RBC) [Entitic mass] 28.3 pg Normal 27.0-32.0 [facility] Comment on above: Performed By: #### L 500.4050, L100.0100 ####[facility] [address] [place], [address] MCHC (RBC) [Mass/Vol] 32.0 g/dL Normal 32-36 [facility] Comment on above: Performed By: #### L 500.4050, L100.0100 ####[facility] [address] [place], [address] MCV (RBC) [Entitic vol] 88.6 fL Normal 81-99 [facility] Comment on above: Performed By: #### L 500.4050, L100.0100 ####[facility] [address] [place], [address] Monocytes/100 WBC (Bld) 6.7 % Normal 0-10 [facility] Comment on above: Performed By: #### L 500.4050, L100.0100 ####[facility] [address] [place], [address] Neutrophils/100 WBC (Bld) 56.7 % Normal 47-70 [facility] Comment on above: Performed By: #### L 500.4050, L100.0100 ####[facility] [address] [place], [address] Nucleated RBC (Bld) [#/Vol] 0 10*3/uL Normal 0-5 [facility] Comment on above: Performed By: #### L 500.4050, L100.0100 ####[facility] [address] [place], [address] Platelet mean volume (Bld) [Entitic vol] 10.5 fL Normal 6.2-12.0 [facility] Comment on above: Performed By: #### L 500.4050, L100.0100 ####[facility] [address] [place], [address] Platelets (Bld) [#/Vol] 219 10*3/uL Normal 150-450 [facility] Comment on above: Performed By: #### L 500.4050, L100.0100 ####[facility] [address] [place], [address] RBC (Bld) [#/Vol] 5.54 10*6/uL High 4.2-5.4 [facility] Comment on above: Performed By: #### L 500.4050, L100.0100 ####[facility] [address] [place], [address] RDW SD 48.4 fl High 35.1-43.9 [facility] Comment on above: Performed By: #### L 500.4050, L100.0100 ####[facility] [address] [place], [address] WBC (Bld) [#/Vol] 7.9 10*3/uL Normal 4.4-11.0 [facility] Comment on above: Performed By: #### L 500.4050, L100.0100 ####[facility] [address] [place], [address] Comprehensive Metabolic Prof ilon 12-16-2023 Albumin [Mass/Vol] 3.5 g/dL Normal 3.2-5.0 [facility] Comment on above: Performed By: #### L 500.4050, L100.0100 ####[facility] [address] [place], [address] Albumin/Globulin [Mass ratio] 0.8 {ratio} Low 0.9-2.4 [facility] Comment on above: Performed By: #### L 500.4050, L100.0100 ####[facility] [address] [place], [address] ALK P 102 U/L Normal 45-117 [facility] Comment on above: Performed By: #### L 500.4050, L100.0100 ####[facility] [address] [place], [address] ALT [Catalytic activity/Vol] 17 U/L Normal 13-56 [facility] Comment on above: Performed By: #### L 500.4050, L100.0100 ####[facility] [address] [place], [address] AST [Catalytic activity/Vol] 13 U/L Low 15-37 [facility] Comment on above: Performed By: #### L 500.4050, L100.0100 ####[facility] [address] [place], [address] Bilirubin [Mass/Vol] 0.40 mg/dL Normal 0.20-1.00 [facility] Comment on above: Result Comment: For patients on eltrombopag therapy, use of Dim[employer] [place] TBIL is not recommended. Performed By: #### L 500.4050, L100.0100 ####[facility] [address] [place], [address] BUN/CRE 24.9 RATIO High 10-20 [facility] Comment on above: Performed By: #### L 500.4050, L100.0100 ####[facility] [address] [place], [address] CA,Total 9.8 mg/dL Normal 8.5-10.1 [facility] Comment on above: Performed By: #### L 500.4050, L100.0100 ####[facility] [address] [place], [address] Chloride [Moles/Vol] 108 mmol/L High 98-107 [facility] Comment on above: Performed By: #### L 500.4050, L100.0100 ####[facility] [address] [place], [address] CO2 [Moles/Vol] 25.0 mmol/L Normal 21.0-32.0 [facility] Comment on above: Performed By: #### L 500.4050, L100.0100 ####[facility] [address] [place], [address] Creatinine [Mass/Vol] 0.80 mg/dL Normal 0.55-1.02 [facility] Comment on above: Result Comment: The validity of the calculated GFR GFRAA in patients over70 years has not been determined. Clinical correlation isessential. Performed By: #### L 500.4050, L100.0100 ####[facility] [address] [place], [address] EST GFR - AA 94 mL/min Normal >60 [facility] Comment on above: Result Comment: Afri can [place] GFR Calc Performed By: #### L 500.4050, L100.0100 ####[facility] [address] [place], [address] GAP 5 Normal 5-15 [facility] Comment on above: Performed By: #### L 500.4050, L100.0100 ####[facility] [address] [place], [address] GFR/1.73 sq M.predicted among non-blacks MDRD (S/P/Bld) [Vol rate/Area] 77 mL/min/{1.73_m2} Normal >60 [facility] Comment on above: Result Comment: Non- GFR Calc Performed By: #### L 500.4050, L100.0100 ####[facility] [address] [place], [address] Globulin (S) [Mass/Vol] 4.4 g/dL High 2.2-4.2 [facility] Comment on above: Performed By: #### L 500.4050, L100.0100 ####[facility] [address] [place], [address] Glucose [Mass/Vol] 135 mg/dL High 74-106 [facility] Comment on above: Result Comment: Fast ing Glucose result greater than or equal to 126 mg/dLsuggests DIABETES MELLITUS per A.D.A. criteria. Performed By: #### L 500.4050, L100.0100 ####[facility] [address] [place], [address] Potassium [Moles/Vol] 4.1 mmol/L Normal 3.5-5.1 [facility] Comment on above: Performed By: #### L 500.4050, L100.0100 ####[facility] [address] [place], [address] Sodium [Moles/Vol] 138 mmol/L Normal 136-145 [facility] Comment on above: Performed By: #### L 500.4050, L100.0100 ####[facility] [address] [place], [address] T PROT 7.9 g/dL Normal 6.4-8.2 [facility] Comment on above: Performed By: #### L 500.4050, L100.0100 ####[facility] [address] [place], [address] Urea nitrogen [Mass/Vol] 20 mg/dL High 7-18 [facility] Comment on above: Performed By: #### L 500.4050, L100.0100 ####[facility] [address] [place], [address] Absolute lymphocyte countOrd ered By: Diana Ramos on 09-23-2023 Lymphocytes Auto (Unsp spec) [#/Vol] 1.94 10*3/uL 0.83-4.51 [facility] Automated lymphocyte count a s percentage of total leukocytesOrdered By: Diana Ramos on 09-23-2023 Lymphocytes/100 WBC Auto (Unsp spec) 27.4 % 19-41 [facility] Basophil percentageOrdered B y: Diana Ramos on 09-23-2023 Basophils/100 WBC (Bld) 0.7 % 0-1 [facility] Bilirubin [Mass/Vol] 0.40 mg/dL 0.20-1.00 [facility] Comment on above: For patients on eltr ombopag therapy, use of [employer] [place] TBIL is not recommended. Chloride [Moles/Vol] 108 mmol/L 98-107 [facility] Eosinophils/100 WBC (Bld) 4.8 % 0-5 [facility] Glucose [Mass/Vol] 144 mg/dL 74-106 [facility] Comment on above: Fasting Glucose resu lt greater than or equal to 126 mg/dL suggests DIABETES MELLITUS per A.D.A. criteria. Hemoglobin (Bld) [Mass/Vol] 15.1 g/dL 12.0-15.0 [facility] Monocytes/100 WBC (Bld) 7.9 % 0-10 [facility] Neutrophils (Bld) [#/Vol] 4.2 10*3/uL 2.0-7.7 [facility] Neutrophils/100 WBC (Bld) 58.9 % 47-70 [facility] Potassium [Moles/Vol] 4.1 mmol/L 3.5-5.1 [facility] Protein [Mass/Vol] 7.8 g/dL 6.4-8.2 [facility] Sodium [Moles/Vol] 139 mmol/L 136-145 [facility] WBC (Bld) [#/Vol] 7.1 10*3/uL 4.4-11.0 [facility] Determination of erythrocyte mean corpuscular volume (MCV)Ordered By: Diana Ramos on 09-23-2023 MCV (RBC) [Entitic vol] 90.6 fL 81-99 [facility] Erythrocyte distribution wid th ratioOrdered By: Diana Ramso on 09-23-2023 Erythrocyte distribution width (RBC) [Ratio] 13.6 % 11.6-14.6 [facility] Erythrocyte distribution wid th standard deviationOrdered By: Diana Ramos on 09-23-2023 Erythrocyte distribution width (RBC) [Entitic vol] 45.8 fL 35.1-43.9 [facility] Hematocrit Auto (Bld) [Volum e fraction]Ordered By: Diana Ramos on 09-23-2023 Hematocrit (Bld) [Volume fraction] 47.2 % 37-47 [facility] Immature granulocytes/100 WB C Auto (Bld)Ordered By: Diana Ramos on 09-23-2023 Immature granulocytes/100 WBC (Bld) 0.300 % 0.0-0.9 [facility] Comment on above: IG% - Immature Granu locytes (promyelocytes, myelocytes and metamyelocytes) > 1% indicates that a LEFT SHIFT is Present. Laboratory - Chemistry and C hemistry - challengeOrdered By: Diana Ramos on 09-23-2023 Albumin/Globulin [Mass ratio] 0.9 {ratio} 0.9-2.4 [facility] ALP [Catalytic activity/Vol] 95 U/L 45-117 [facility] ALT [Catalytic activity/Vol] 16 U/L 13-56 [facility] CO2 [Moles/Vol] 27.0 mmol/L 21.0-32.0 [facility] Globulin (S) [Mass/Vol] 4.2 g/dL 2.2-4.2 [facility] Urea nitrogen/Creatinine [Mass ratio] 24.0 mg/mg 10-20 [facility] Laboratory - Hematology and Cell countsOrdered By: Diana Ramos on 09-23-2023 MCH (RBC) [Entitic mass] 29.0 pg 27.0-32.0 [facility] MCHC (RBC) [Mass/Vol] 32.0 g/dL 32-36 [facility] Nucleated RBC/100 WBC (Bld) [Ratio] 0 % 0-5 [facility] Platelet mean volume (Bld) [Entitic vol] 10.4 fL 6.2-12.0 [facility] Platelets (Bld) [#/Vol] 189 10*3/uL 150-450 [facility] No Panel InformationOrdered By: Diana Ramos on 09-23-2023 Estimated GFR (MDRD) Amer 108 mL/min >60 [facility] Comment on above: GFR Calc Estimated GFR (MDRD) Non-Af Amer 90 mL/min >60 [facility] Comment on above: Non- GFR Calc RBC Auto (Bld) [#/Vol]Ordere d By: Diana Ramos on 09-23-2023 RBC (Bld) [#/Vol] 5.21 10*6/uL 4.2-5.4 [facility] Serum or plasma calcium jasiel urement (mass/volume)Ordered By: Diana Ramos on 09-23-2023 Calcium [Mass/Vol] 9.7 mg/dL 8.5-10.1 [facility] Serum or plasma creatinine m easurement (mass/volume)Ordered By: Diana Ramos on 09-23-2023 Creatinine [Mass/Vol] 0.71 mg/dL 0.55-1.02 [facility] Comment on above: The validity of the calculated GFR & GFRAA in patients over 70 years has not been determined. Clinical correlation is essential. Serum or plasma urea nitroge n measurement (mass/volume)Ordered By: Diana Ramos on 09-23-2023 Urea nitrogen [Mass/Vol] 17 mg/dL 7-18 [facility] [facility] Thin prep Papanicolaou smear with manual screeningOrdered By: Diana Ramos on 09-23-2023 Thin prep Papanicolaou smear with manual screening 3.6 g/dL 3.2-5.0 [facility] Thin prep Papanicolaou smear with manual screening 11 U/L 15-37 [facility] Thin prep Papanicolaou smear with manual screening 4 5-15 [facility] Absolute lymphocyte countOrd ered By: Diana Ramos on 06-30-2023 Lymphocytes Auto (Unsp spec) [#/Vol] 1.96 10*3/uL 0.83-4.51 [facility] Basophil percentageOrdered B y: Diana Ramos on 06-30-2023 Basophils/100 WBC (Bld) 0.6 % 0-1 [facility] Bilirubin [Mass/Vol] 0.40 mg/dL 0.20-1.00 [facility] Comment on above: For patients on eltr ombopag therapy, use of Dimension [place] TBIL is not recommended. Chloride [Moles/Vol] 105 mmol/L 98-107 [facility] Eosinophils/100 WBC (Bld) 2.7 % 0-5 [facility] Glucose [Mass/Vol] 111 mg/dL 74-106 [facility] Comment on above: Fasting Glucose resu lt from 100 to 125 mg/dL suggests IMPAIRED HOMEOSTASIS per A.D.A. criteria. Neutrophils (Bld) [#/Vol] 5.3 10*3/uL 2.0-7.7 [facility] Neutrophils/100 WBC (Bld) 64.8 % 47-70 [facility] Potassium [Moles/Vol] 4.0 mmol/L 3.5-5.1 [facility] Protein [Mass/Vol] 7.7 g/dL 6.4-8.2 [facility] Sodium [Moles/Vol] 138 mmol/L 136-145 [facility] WBC (Bld) [#/Vol] 8.2 10*3/uL 4.4-11.0 [facility] Blood erythrocytes count (nu mber/volume)Ordered By: Diana Ramos on 06-30-2023 RBC (Bld) [#/Vol] 5.06 10*6/uL 4.2-5.4 [facility] Blood hemoglobin measurement (mass/volume)Ordered By: Diana Ramos on 06-30-2023 Hemoglobin (Bld) [Mass/Vol] 14.3 g/dL 12.0-15.0 [facility] Blood lymphocytes/100 leukoc ytesOrdered By: Diana Ramos on 06-30-2023 Lymphocytes/100 WBC (Bld) 24.0 % 19-41 [facility] Blood monocytes/100 leukocyt esOrdered By: Diana Ramos on 06-30-2023 Monocytes/100 WBC (Bld) 7.8 % 0-10 [facility] Blood platelet mean volumeOr dered By: Diana Ramos on 06-30-2023 Platelet mean volume (Bld) [Entitic vol] 10.4 fL 6.2-12.0 [facility] Determination of erythrocyte mean corpuscular volume (MCV)Ordered By: Diana Ramos on 06-30-2023 MCV (RBC) [Entitic vol] 89.9 fL 81-99 [facility] Hematocrit Auto (Bld) [Volum e fraction]Ordered By: Diana Ramos on 06-30-2023 Hematocrit (Bld) [Volume fraction] 45.5 % 37-47 [facility] Laboratory - Chemistry and C hemistry - challengeOrdered By: Diana Ramos on 06-30-2023 ALP [Catalytic activity/Vol] 109 U/L 45-117 [facility] ALT [Catalytic activity/Vol] 27 U/L 13-56 [facility] CO2 [Moles/Vol] 24.0 mmol/L 21.0-32.0 [facility] Globulin (S) [Mass/Vol] 4.0 g/dL 2.2-4.2 [facility] Urea nitrogen/Creatinine [Mass ratio] 29.4 mg/mg 10-20 [facility] Laboratory - Hematology and Cell countsOrdered By: Diana Ramos on 06-30-2023 Erythrocyte distribution width (RBC) [Entitic vol] 49.1 fL 35.1-43.9 [facility] Erythrocyte distribution width (RBC) [Ratio] 14.9 % 11.6-14.6 [facility] Immature granulocytes/100 WBC (Bld) 0.100 % 0.0-0.9 [facility] Comment on above: IG% - Immature Granu locytes (promyelocytes, myelocytes and metamyelocytes) > 1% indicates that a LEFT SHIFT is Present. MCH (RBC) [Entitic mass] 28.3 pg 27.0-32.0 [facility] Nucleated RBC/100 WBC (Bld) [Ratio] 0 % 0-5 [facility] MCHC Auto (RBC) [Mass/Vol]Or dered By: Daina Ramos on 06-30-2023 MCHC (RBC) [Mass/Vol] 31.4 g/dL 32-36 [facility] No Panel InformationOrdered By: Diana Ramos on 06-30-2023 Estimated GFR (MDRD) Amer 84 mL/min >60 [facility] Comment on above: GFR Calc Estimated GFR (MDRD) Non-Af Amer 69 mL/min >60 [facility] Comment on above: Non- GFR Calc Platelets bldOrdered By: Katarina Ramos on 06-30-2023 Platelets (Bld) [#/Vol] 209 10*3/uL 150-450 [facility] Serum or plasma albumin jasiel urement (mass/volume)Ordered By: Diana Ramos on 06-30-2023 Albumin [Mass/Vol] 3.7 g/dL 3.2-5.0 [facility] Serum or plasma albumin/glob ulin mass ratioOrdered By: Diana Ramos on 06-30-2023 Albumin/Globulin [Mass ratio] 0.9 {ratio} 0.9-2.4 [facility] Serum or plasma calcium jasiel urement (mass/volume)Ordered By: Diana Ramos on 06-30-2023 Calcium [Mass/Vol] 9.0 mg/dL 8.5-10.1 [facility] Serum or plasma creatinine m easurement (mass/volume)Ordered By: Diana Ramos on 06-30-2023 Creatinine [Mass/Vol] 0.88 mg/dL 0.55-1.02 [facility] Comment on above: The validity of the calculated GFR & GFRAA in patients over 70 years has not been determined. Clinical correlation is essential. Serum or plasma urea nitroge n measurement (mass/volume)Ordered By: Diana Ramos on 06-30-2023 Urea nitrogen [Mass/Vol] 26 mg/dL 7-18 [facility] Thin prep Papanicolaou smear with manual screeningOrdered By: Diana Ramos on 06-30-2023 Thin prep Papanicolaou smear with manual screening 20 U/L 15-37 [facility] Thin prep Papanicolaou smear with manual screening 9 5-15 [facility] Laboratory - Chemistry and C hemistry - challengeOrdered By: Nehemias Arizmendi on 05-17-2023 Free T4 [Mass/Vol] 1.43 ng/dL 0.76-1.46 [facility] No Panel InformationOrdered By: Nehemias Arizmendi on 05-17-2023 Free Triiodothyronine (T3) pg/dL 1.9 pg/mL 2.18-3.98 [facility] Thyroid Stimulating Hormone (TSH) 1.40 uIU/mL 0.358-3.74 [facility] Absolute lymphocyte countOrd ered By: Nehemias Arizmendi on 03-30-2023 Lymphocytes Auto (Unsp spec) [#/Vol] 2.30 10*3/uL 0.83-4.51 [facility] Basophil percentageOrdered B y: Nehemias Arizmendi on 03-30-2023 Basophils/100 WBC (Bld) 0.9 % 0-1 [facility] Bilirubin [Mass/Vol] 0.30 mg/dL 0.20-1.00 [facility] Comment on above: For patients on eltr ombopag therapy, use of Dim[facility] TBIL is not recommended. Chloride [Moles/Vol] 108 mmol/L 98-107 [facility] Eosinophils/100 WBC (Bld) 2.8 % 0-5 [facility] Glucose [Mass/Vol] 122 mg/dL 74-106 [facility] Comment on above: Fasting Glucose resu lt from 100 to 125 mg/dL suggests IMPAIRED HOMEOSTASIS per A.D.A. criteria. Neutrophils (Bld) [#/Vol] 4.7 10*3/uL 2.0-7.7 [facility] Neutrophils/100 WBC (Bld) 59.7 % 47-70 [facility] Potassium [Moles/Vol] 4.3 mmol/L 3.5-5.1 [facility] Protein [Mass/Vol] 7.7 g/dL 6.4-8.2 [facility] Sodium [Moles/Vol] 140 mmol/L 136-145 [facility] WBC (Bld) [#/Vol] 7.9 10*3/uL 4.4-11.0 [facility] Blood erythrocytes count (nu mber/volume)Ordered By: Nehemias Arizmendi on 03-30-2023 RBC (Bld) [#/Vol] 4.98 10*6/uL 4.2-5.4 [facility] Blood hemoglobin measurement (mass/volume)Ordered By: Nehemias Arizmendi on 03-30-2023 Hemoglobin (Bld) [Mass/Vol] 13.7 g/dL 12.0-15.0 [facility] Blood lymphocytes/100 leukoc ytesOrdered By: Nehemias Arizmendi on 03-30-2023 Lymphocytes/100 WBC (Bld) 29.1 % 19-41 [facility] Blood monocytes/100 leukocyt esOrdered By: Nehemias Arizmendi on 03-30-2023 Monocytes/100 WBC (Bld) 7.1 % 0-10 [facility] Blood platelet mean volumeOr dered By: Nehemias Arizmendi on 03-30-2023 Platelet mean volume (Bld) [Entitic vol] 10.4 fL 6.2-12.0 [facility] Determination of erythrocyte mean corpuscular volume (MCV)Ordered By: Nehemias Arizmendi on 03-30-2023 MCV (RBC) [Entitic vol] 88.2 fL 81-99 [facility] Hematocrit Auto (Bld) [Volum e fraction]Ordered By: Nehemias Arizmendi on 03-30-2023 Hematocrit (Bld) [Volume fraction] 43.9 % 37-47 [facility] Laboratory - Chemistry and C hemistry - challengeOrdered By: Nehemias Arizmendi on 03-30-2023 ALP [Catalytic activity/Vol] 93 U/L 45-117 [facility] ALT [Catalytic activity/Vol] 15 U/L 13-56 [facility] CO2 [Moles/Vol] 25.0 mmol/L 21.0-32.0 [facility] Globulin (S) [Mass/Vol] 4.3 g/dL 2.2-4.2 [facility] Urea nitrogen/Creatinine [Mass ratio] 25.7 mg/mg 10-20 [facility] Laboratory - Hematology and Cell countsOrdered By: Nehemias Arizmendi on 03-30-2023 Erythrocyte distribution width (RBC) [Entitic vol] 49.9 fL 35.1-43.9 [facility] Erythrocyte distribution width (RBC) [Ratio] 15.6 % 11.6-14.6 [facility] Immature granulocytes/100 WBC (Bld) 0.400 % 0.0-0.9 [facility] Comment on above: IG% - Immature Granu locytes (promyelocytes, myelocytes and metamyelocytes) > 1% indicates that a LEFT SHIFT is Present. MCH (RBC) [Entitic mass] 27.5 pg 27.0-32.0 [facility] Nucleated RBC/100 WBC (Bld) [Ratio] 0 % 0-5 [facility] MCHC Auto (RBC) [Mass/Vol]Or dered By: Nehemias Arizmendi on 03-30-2023 MCHC (RBC) [Mass/Vol] 31.2 g/dL 32-36 [facility] No Panel InformationOrdered By: Nehemias Arizmendi on 03-30-2023 Estimated GFR (MDRD) Amer 87 mL/min >60 [facility] Comment on above: GFR Calc Estimated GFR (MDRD) Non-Af Amer 72 mL/min >60 [facility] Comment on above: Non- GFR Calc Platelets bldOrdered By: Norma Arizmendi on 03-30-2023 Platelets (Bld) [#/Vol] 248 10*3/uL 150-450 [facility] Serum or plasma albumin jasiel urement (mass/volume)Ordered By: Nehemias Arizmendi on 03-30-2023 Albumin [Mass/Vol] 3.4 g/dL 3.2-5.0 [facility] Serum or plasma albumin/glob ulin mass ratioOrdered By: Nehemias Arizmendi on 03-30-2023 Albumin/Globulin [Mass ratio] 0.8 {ratio} 0.9-2.4 [facility] Serum or plasma calcium jasiel urement (mass/volume)Ordered By: Nehemias Arizmendi on 03-30-2023 Calcium [Mass/Vol] 9.2 mg/dL 8.5-10.1 [facility] Serum or plasma creatinine m easurement (mass/volume)Ordered By: Nehemias Arizmendi on 03-30-2023 Creatinine [Mass/Vol] 0.86 mg/dL 0.55-1.02 [facility] Comment on above: The validity of the calculated GFR & GFRAA in patients over 70 years has not been determined. Clinical correlation is essential. Serum or plasma urea nitroge n measurement (mass/volume)Ordered By: Nehemias Arizmendi on 03-30-2023 Urea nitrogen [Mass/Vol] 22 mg/dL 7-18 [facility] Thin prep Papanicolaou smear with manual screeningOrdered By: Nehemias Arizmendi on 03-30-2023 Thin prep Papanicolaou smear with manual screening 12 U/L 15-37 [facility] Thin prep Papanicolaou smear with manual screening 7 5-15 [facility] Basophil percentageOrdered B y: Nehemias Arizmendi on 01-11-2023 Chloride [Moles/Vol] 104 mmol/L 98-107 [facility] Glucose [Mass/Vol] 204 mg/dL 74-106 [facility] Comment on above: Glucose result great er than or equal to 200 mg/dLsuggests DIABETES MELLITUS per A.D.A. criteria. Potassium [Moles/Vol] 3.8 mmol/L 3.5-5.1 [facility] Sodium [Moles/Vol] 140 mmol/L 136-145 [facility] Laboratory - Chemistry and C hemistry - challengeOrdered By: Nehemias Arizmendi on 01-11-2023 CO2 [Moles/Vol] 32.0 mmol/L 21.0-32.0 [facility] Urea nitrogen/Creatinine [Mass ratio] 42.5 mg/mg 10-20 [facility] No Panel InformationOrdered By: Nehemias Arizmendi on 01-11-2023 Estimated GFR (MDRD) Amer 105 mL/min >60 [facility] Comment on above: GFR Calc Estimated GFR (MDRD) Non-Af Amer 87 mL/min >60 [facility] Comment on above: Non- GFR Calc Serum or plasma calcium jasiel urement (mass/volume)Ordered By: Nehemias Arizmendi on 01-11-2023 Calcium [Mass/Vol] 9.3 mg/dL 8.5-10.1 [facility] Serum or plasma creatinine m easurement (mass/volume)Ordered By: Nehemias Arizmendi on 01-11-2023 Creatinine [Mass/Vol] 0.73 mg/dL 0.55-1.02 [facility] Comment on above: The validity of the calculated GFR & GFRAA in patients over 70 years has not been determined. Clinical correlation is essential. Serum or plasma urea nitroge n measurement (mass/volume)Ordered By: Nehemias Arizmendi on 01-11-2023 Urea nitrogen [Mass/Vol] 31 mg/dL 01-12 [facility] Thin prep Papanicolaou smear with manual screeningOrdered By: Nehemias Arizmendi on 01-11-2023 Thin prep Papanicolaou smear with manual screening 11-09 [facility] .Auto Diffon 01-09-2023 Basophil, Absolute 0.0 10 3/mcL Normal 0.0-0.3 [facility] ([place]) Comment on above: Performed By: #### L IPID, GFR, PBNP, ADIFF, CBC, ANEU, BMP, MG #### [address] [address] Basophils/100 WBC (Bld) 0.1 % Normal 0.0-2.5 [facility] ([place]) Comment on above: Performed By: #### L IPID, GFR, PBNP, ADIFF, CBC, ANEU, BMP, MG #### [address] [address] Eosinophil, Absolute 0.0 10 3/mcL Normal 0.0-0.7 [facility] ([place]) Comment on above: Performed By: #### L IPID, GFR, PBNP, ADIFF, CBC, ANEU, BMP, MG #### [address] [address] Eosinophils/100 WBC (Bld) 0.0 % Normal 0.0-6.0 [facility] ([place]) Comment on above: Performed By: #### L IPID, GFR, PBNP, ADIFF, CBC, ANEU, BMP, MG #### [address] [address] Lymphocyte, Absolute 0.5 10 3/mcL Low 0.9-4.3 [facility] ([place]) Comment on above: Performed By: #### L IPID, GFR, PBNP, ADIFF, CBC, ANEU, BMP, MG #### [address] [address] Lymphocytes/100 WBC (Bld) 6.1 % Low 20.0-40.0 [facility] ([place]) Comment on above: Performed By: #### L IPID, GFR, PBNP, ADIFF, CBC, ANEU, BMP, MG #### [address] [address] Monocyte, Absolute 0.4 10 3/mcL Normal 0.1-1.4 [facility] ([place]) Comment on above: Performed By: #### L IPID, GFR, PBNP, ADIFF, CBC, ANEU, BMP, MG #### [address] [address] Monocytes/100 WBC (Bld) 4.7 % Normal 2.0-13.0 [facility] ([place]) Comment on above: Performed By: #### L IPID, GFR, PBNP, ADIFF, CBC, ANEU, BMP, MG #### [address] [address] Neutrophils/100 WBC (Bld) 89.1 % High 50.0-75.0 [facility] ([place]) Comment on above: Performed By: #### L IPID, GFR, PBNP, ADIFF, CBC, ANEU, BMP, MG #### [address] [address] .GFRon 01-09-2023 GFR Non- >60 Normal [facility] ([place]) Comment on above: Result Comment: GFR Population [...] PBNP, ADIFF, CBC, ANEU, BMP, MG #### [address] [address] GFR >60 Normal [facility] ([place]) Comment on above: Result Comment: GFR Population [...] PBNP, ADIFF, CBC, ANEU, BMP, MG #### [address] [address] .NEUABSon 01-09-2023 Neutrophil, Absolute 7.8 10 3/mcL Normal 2.3-8.1 [facility] ([place]) Comment on above: Performed By: #### L IPID, GFR, PBNP, ADIFF, CBC, ANEU, BMP, MG #### [address] [address] BMPon 01-09-2023 BUN/Creatinine Ratio 53.7 ratio High 10.0-22.0 [facility] ([place]) Comment on above: Performed By: #### L IPID, GFR, PBNP, ADIFF, CBC, ANEU, BMP, MG #### [address] [address] Calcium [Mass/Vol] 8.5 mg/dL Low 8.7-10.4 [facility] ([place]) Comment on above: Performed By: #### L IPID, GFR, PBNP, ADIFF, CBC, ANEU, BMP, MG #### [address] [address] Chloride [Moles/Vol] 104 mmol/L Normal 98-110 [facility] ([place]) Comment on above: Performed By: #### L IPID, GFR, PBNP, ADIFF, CBC, ANEU, BMP, MG #### [address] [address] CO2 [Moles/Vol] 34 mmol/L High 22-32 [facility] ([place] Comment on above: Performed By: #### L IPID, GFR, PBNP, ADIFF, CBC, ANEU, BMP, MG #### [address] [address] Creatinine [Mass/Vol] 0.41 mg/dL Low 0.50-1.20 [facility] ([place]) Comment on above: Performed By: #### L IPID, GFR, PBNP, ADIFF, CBC, ANEU, BMP, MG #### [address] [address] Electrolyte Balance 4.0 mEq/L Normal 4.0-15.0 [facility] ([place]) Comment on above: Performed By: #### L IPID, GFR, PBNP, ADIFF, CBC, ANEU, BMP, MG #### [address] [address] Glucose [Mass/Vol] 226 mg/dL High 70-110 [facility] ([place]) Comment on above: Performed By: #### L IPID, GFR, PBNP, ADIFF, CBC, ANEU, BMP, MG #### [address] [address] Potassium [Moles/Vol] 4.5 mmol/L Normal 3.5-5.0 [facility] ([place]) Comment on above: Performed By: #### L IPID, GFR, PBNP, ADIFF, CBC, ANEU, BMP, MG #### [place] [address] Sodium [Moles/Vol] 142 mmol/L Normal 136-145 [facility] ([place]) Comment on above: Performed By: #### L IPID, GFR, PBNP, ADIFF, CBC, ANEU, BMP, MG #### [place] [id number] Urea nitrogen [Mass/Vol] 22.0 mg/dL Normal 8.0-22.0 [facility] ([place] Comment on above: Performed By: #### L IPID, GFR, PBNP, ADIFF, CBC, ANEU, BMP, MG #### [place] [id number] CBCon 01-09-2023 Erythrocyte distribution width (RBC) [Ratio] 14.3 % Normal 11.5-15.5 [facility] ([place] Comment on above: Performed By: #### B MP, ANEU, ADIFF, MG, PHOS, CBC, GFR #### [place] [address] Hematocrit (Bld) [Volume fraction] 34.4 % Normal 34.0-46.0 [facility] ([place] Comment on above: Performed By: #### B MP, ANEU, ADIFF, MG, PHOS, CBC, GFR #### [place] [address] Hgb 11.4 G/dL Low 12.0-16.0 [facility] ([place] Comment on above: Performed By: #### B MP, ANEU, ADIFF, MG, PHOS, CBC, GFR #### [place] [address] MCH (RBC) [Entitic mass] 28.6 pg Normal 27.0-33.0 [facility] ([place] Comment on above: Performed By: #### B MP, ANEU, ADIFF, MG, PHOS, CBC, GFR #### [place] [address] MCHC 33.1 G/dL Normal 32.0-36.0 [facility] ([place] Comment on above: Performed By: #### B MP, ANEU, ADIFF, MG, PHOS, CBC, GFR #### [place] [address] MCV (RBC) [Entitic vol] 86.3 fL Normal 80.0-99.0 [facility] ([place] Comment on above: Performed By: #### B MP, ANEU, ADIFF, MG, PHOS, CBC, GFR #### [place] [address] Platelet 307 10 3/mcL Normal 150-450 [facility] ([place] Comment on above: Performed By: #### B MP, ANEU, ADIFF, MG, PHOS, CBC, GFR #### [place] [address] Platelet mean volume (Bld) [Entitic vol] 6.7 fL Normal 6.6-10.5 [facility] ([place] Comment on above: Performed By: #### B MP, ANEU, ADIFF, MG, PHOS, CBC, GFR #### [place] [address] RBC 3.98 10 6/mcL Low 4.10-5.30 [facility] ([place] Comment on above: Performed By: #### B MP, ANEU, ADIFF, MG, PHOS, CBC, GFR #### [place] [address] WBC 8.7 10 3/mcL Normal 4.5-10.8 [facility] ([place] Comment on above: Performed By: #### B MP, ANEU, ADIFF, MG, PHOS, CBC, GFR #### [place] [address] LABORATORYOrdered By: Rebeca Siu on 01-09-2023 Blood Glucose Testing Reason Routine (01/09/23 12:25 PM) [facility] Work Phone: Glucose [Mass/Vol] 241 mg/dL Invalid Interpretation Code 70 - 110 mg/dL [facility] Work Phone: LABORATORYOrdered By: Lisa benitez on 01-09-2023 Glucose [Mass/Vol] 228 mg/dL Invalid Interpretation Code 70 - 110 mg/dL [facility] Work Phone: LABORATORYOrdered By: SYSTEM SYSTEM on 01-09-2023 Basophils (Bld) [#/Vol] 0.0 103/mcL Invalid Interpretation Code 0.0 - 0.3 10^3/mcL [facility] Workflow SS Basophils/100 WBC (Bld) 0.1 % Invalid Interpretation Code 0.0 - 2.5 % [facility] Workflow SS Calcium [Mass/Vol] 8.5 mg/dL Invalid [...] Invalid Interpretation Code 0.0 - 6.0 % [facility] Workflow SS Erythrocyte distribution width (RBC) [Ratio] 14.3 % Invalid Interpretation Code 11.5 - 15.5 % [facility] Workflow SS GFR/1.73 sq M.predicted among blacks MDRD (S/P/Bld) [Vol rate/Area] ml/min/1.73sqm Invalid Interpretation Code Chemistry S GFR/1.73 sq M.predicted among non-blacks MDRD (S/P/Bld) [Vol rate/Area] ml/min/1.73sqm Invalid Interpretation Code Chemistry S Glucose [Mass/Vol] 226 mg/dL Invalid Interpretation Code 70 - 110 mg/dL ADM SS Hematocrit (Bld) [Volume fraction] 34.4 % Invalid Interpretation Code 34.0 - 46.0 % Workflow SS Hemoglobin (Bld) [Mass/Vol] 11.4 G/dL [...] Invalid Interpretation Code 3.5 - 5.0 mEq/L AH ADM SS RBC (Bld) [#/Vol] 3.98 106/mcL Invalid Interpretation Code 4.10 - 5.30 10^6/mcL [facility] Workflow SS Sodium [Moles/Vol] 142 mmol/L Invalid Interpretation Code 136 - 145 mEq/L ADM SS Urea nitrogen [Mass/Vol] 22.0 mg/dL Invalid Interpretation Code 8.0 - 22.0 mg/dL AH ADM SS Urea nitrogen/Creatinine [Mass ratio] 53.7 ratio Invalid Interpretation Code 10.0 - 22.0 ratio AH ADM SS WBC (Bld) [#/Vol] 8.7 103/mcL Invalid Interpretation Code 4.5 - 10.8 10^3/mcL [facility] Workflow SS MGon 01-09-2023 Magnesium [Mass/Vol] 1.9 mg/dL Normal 1.6-2.4 [facility] ([place]) Comment on above: Performed By: #### L IPID, GFR, PBNP, ADIFF, CBC, ANEU, BMP, MG #### [address] [address] PHOSon 01-09-2023 Phosphate [Mass/Vol] 2.5 mg/dL Normal 2.4-5.1 [facility] ([place]) Comment on above: Result Comment: No te - New Reference Range in effect 20 Performed By: #### L IPID, GFR, PBNP, ADIFF, CBC, ANEU, BMP, MG #### [place] [address] .Auto Diffon 01-08-2023 Basophil, Absolute 0.0 10 3/mcL Normal 0.0-0.3 [facility] ([place]) Comment on above: Performed By: #### L IPID, GFR, PBNP, ADIFF, CBC, ANEU, BMP, MG #### [address] [address] Basophils/100 WBC (Bld) 0.4 % Normal 0.0-2.5 [facility] ([place]) Comment on above: Performed By: #### L IPID, GFR, PBNP, ADIFF, CBC, ANEU, BMP, MG #### [address] [address] Eosinophil, Absolute 0.0 10 3/mcL Normal 0.0-0.7 [facility] ([place]) Comment on above: Performed By: #### L IPID, GFR, PBNP, ADIFF, CBC, ANEU, BMP, MG #### [address] [address] Eosinophils/100 WBC (Bld) 0.0 % Normal 0.0-6.0 [facility] ([place]) Comment on above: Performed By: #### L IPID, GFR, PBNP, ADIFF, CBC, ANEU, BMP, MG #### [address] [address] Lymphocyte, Absolute 0.6 10 3/mcL Low 0.9-4.3 [facility] ([place]) Comment on above: Performed By: #### L IPID, GFR, PBNP, ADIFF, CBC, ANEU, BMP, MG #### [address] [address] Lymphocytes/100 WBC (Bld) 5.2 % Low 20.0-40.0 [facility] ([place]) Comment on above: Performed By: #### L IPID, GFR, PBNP, ADIFF, CBC, ANEU, BMP, MG #### [address] [address] Monocyte, Absolute 0.7 10 3/mcL Normal 0.1-1.4 [facility] ([place]) Comment on above: Performed By: #### L IPID, GFR, PBNP, ADIFF, CBC, ANEU, BMP, MG #### [address] [address] Monocytes/100 WBC (Bld) 5.8 % Normal 2.0-13.0 [facility] ([place]) Comment on above: Performed By: #### L IPID, GFR, PBNP, ADIFF, CBC, ANEU, BMP, MG #### [address] [address] Neutrophils/100 WBC (Bld) 88.6 % High 50.0-75.0 [facility] ([place]) Comment on above: Performed By: #### L IPID, GFR, PBNP, ADIFF, CBC, ANEU, BMP, MG #### [address] [address] .GFRon 01-08-2023 GFR >60 Normal [facility] ([place]) Comment on above: Result Comment: GFR Population [...] PBNP, ADIFF, CBC, ANEU, BMP, MG #### [address] [address] GFR Non- >60 Normal [facility] ([place]) Comment on above: Result Comment: GFR Population [...] PBNP, ADIFF, CBC, ANEU, BMP, MG #### [address] [address] .NEUABSon 01-08-2023 Neutrophil, Absolute 10.4 10 3/mcL High 2.3-8.1 A [facility] ([place]) Comment on above: Performed By: #### L IPID, GFR, PBNP, ADIFF, CBC, ANEU, BMP, MG #### [address] [address] A1Con 01-08-2023 HbA1c (Bld) [Mass fraction] 7.2 % High 4.0-6.0 [facility] ([place]) Comment on above: Performed By: #### L IPID, GFR, PBNP, ADIFF, CBC, ANEU, BMP, MG #### [address] [address] [facility] BUN/Creatinine Ratio 51.3 ratio High 10.0-22.0 [facility] ([place]) Comment on above: Performed By: #### L IPID, GFR, PBNP, ADIFF, CBC, ANEU, BMP, MG #### [address] [address] Calcium [Mass/Vol] 8.3 mg/dL Low 8.7-10.4 [facility] ([place]) Comment on above: Performed By: #### L IPID, GFR, PBNP, ADIFF, CBC, ANEU, BMP, MG #### [address] [address] Chloride [Moles/Vol] 104 mmol/L Normal 98-110 [facility] ([place]) Comment on above: Performed By: #### L IPID, GFR, PBNP, ADIFF, CBC, ANEU, BMP, MG #### [address] [address] CO2 [Moles/Vol] 29 mmol/L Normal 22-32 [facility] ([place]) Comment on above: Performed By: #### L IPID, GFR, PBNP, ADIFF, CBC, ANEU, BMP, MG #### [address] [address] Creatinine [Mass/Vol] 0.39 mg/dL Low 0.50-1.20 [facility] ([place]) Comment on above: Performed By: #### L IPID, GFR, PBNP, ADIFF, CBC, ANEU, BMP, MG #### [address] [address] Electrolyte Balance 8.0 mEq/L Normal 4.0-15.0 [facility] ([place]) Comment on above: Performed By: #### L IPID, GFR, PBNP, ADIFF, CBC, ANEU, BMP, MG #### [place] [id number] Glucose [Mass/Vol] 188 mg/dL High 70-110 [facility] ([place]) Comment on above: Performed By: #### L IPID, GFR, PBNP, ADIFF, CBC, ANEU, BMP, MG #### [address] [address] Potassium [Moles/Vol] 4.2 mmol/L Normal 3.5-5.0 [facility] ([place]) Comment on above: Result Comment: Spec imen slightly hemolyzed. Performed By: #### L IPID, GFR, PBNP, ADIFF, CBC, ANEU, BMP, MG #### [place] [id number] Sodium [Moles/Vol] 141 mmol/L Normal 136-145 [facility] ([place]) Comment on above: Performed By: #### L IPID, GFR, PBNP, ADIFF, CBC, ANEU, BMP, MG #### [place] [phone] Urea nitrogen [Mass/Vol] 20.0 mg/dL Normal 8.0-22.0 [facility] ([place]) Comment on above: Performed By: #### L IPID, GFR, PBNP, ADIFF, CBC, ANEU, BMP, MG #### [address] [address] CBCon 01-08-2023 Erythrocyte distribution width (RBC) [Ratio] 13.9 % Normal 11.5-15.5 [facility] ([place]) Comment on above: Performed By: #### L IPID, GFR, PBNP, ADIFF, CBC, ANEU, BMP, MG #### [place] [phone] Hematocrit (Bld) [Volume fraction] 32.1 % Low 34.0-46.0 [facility] ([place]) Comment on above: Performed By: #### L IPID, GFR, PBNP, ADIFF, CBC, ANEU, BMP, MG #### [address] [address] Hgb 10.6 G/dL Low 12.0-16.0 [facility] ([place]) Comment on above: Performed By: #### L IPID, GFR, PBNP, ADIFF, CBC, ANEU, BMP, MG #### [place] [address] MCH (RBC) [Entitic mass] 28.5 pg Normal 27.0-33.0 [facility] ([place]) Comment on above: Performed By: #### L IPID, GFR, PBNP, ADIFF, CBC, ANEU, BMP, MG #### [place] [address] MCHC 32.9 G/dL Normal 32.0-36.0 [facility] ([place]) Comment on above: Performed By: #### L IPID, GFR, PBNP, ADIFF, CBC, ANEU, BMP, MG #### [place] [address] MCV (RBC) [Entitic vol] 86.4 fL Normal 80.0-99.0 [facility] ([place]) Comment on above: Performed By: #### L IPID, GFR, PBNP, ADIFF, CBC, ANEU, BMP, MG #### [place] [address] Platelet 279 10 3/mcL Normal 150-450 [facility] ([place]) Comment on above: Performed By: #### L IPID, GFR, PBNP, ADIFF, CBC, ANEU, BMP, MG #### [place] [address] Platelet mean volume (Bld) [Entitic vol] 7.3 fL Normal 6.6-10.5 [facility] ([place]) Comment on above: Performed By: #### L IPID, GFR, PBNP, ADIFF, CBC, ANEU, BMP, MG #### [place] [address] RBC 3.72 10 6/mcL Low 4.10-5.30 [facility] ([place]) Comment on above: Performed By: #### L IPID, GFR, PBNP, ADIFF, CBC, ANEU, BMP, MG #### [place] [address] WBC 11.7 10 3/mcL High 4.5-10.8 [facility] ([place]) Comment on above: Performed By: #### L IPID, GFR, PBNP, ADIFF, CBC, ANEU, BMP, MG #### [address] [address] CRPHSon 01-08-2023 CRP, High Sensitive 120.66 mg/L High 0.20-3.00 [facility] ([place]) Comment on above: Result Comment: Spec imen [...] PBNP, ADIFF, CBC, ANEU, BMP, MG #### [place] [id number] ESRon 01-08-2023 Erythrocyte Sed Rate 109 mm/hr High 0-30 [facility] ([place]) Comment on above: Performed By: #### L IPID, GFR, PBNP, ADIFF, CBC, ANEU, BMP, MG #### [place] [phone] LABORATORYOrdered By: Christianne Rivera on 01-08-2023 Blood Glucose Testing Reason Routine (01/08/23 9:44 PM) [facility] Work Phone: Glucose [Mass/Vol] 303 mg/dL Invalid Interpretation Code 70 - 110 mg/dL [facility] Work Phone: Blood Glucose Testing Reason Routine (01/08/23 4:17 PM) [facility] Work Phone: LABORATORYOrdered By: [employer] on 01-08-2023 Basophils (Bld) [#/Vol] 0.0 [...] Invalid Interpretation Code 12.0 - 16.0 G/dL Workflow SS LDH Lactate to pyruvate reaction [Catalytic activity/Vol] 263 1 Invalid Interpretation Code 120 - 246 U/L ADM SS Lymphocytes (Bld) [#/Vol] 0.6 103/mcL Invalid Interpretation Code 0.9 - 4.3 10^3/mcL AH Workflow SS Lymphocytes/100 WBC (Bld) 5.2 % Invalid Interpretation Code 20.0 - 40.0 % AH Workflow SS Magnesium [Mass/Vol] 1.8 mg/dL Invalid Interpretation Code 1.6 - 2.4 mg/dL ADM SS MCH (RBC) [Entitic mass] 28.5 pg Invalid Interpretation Code 27.0 - 33.0 pg AH Workflow SS MCHC 32.9 G/dL Invalid Interpretation Code 32.0 - 36.0 G/dL AH Workflow SS MCV (RBC) [Entitic vol] 86.4 fL Invalid Interpretation Code 80.0 - 99.0 fL Workflow SS Monocytes (Bld) [#/Vol] 0.7 103/mcL Invalid Interpretation Code 0.1 - 1.4 10^3/mcL Workflow SS Monocytes/100 WBC (Bld) 5.8 % Invalid Interpretation Code 2.0 - 13.0 % Workflow SS Neutrophils (Bld) [#/Vol] 10.4 103/mcL Invalid Interpretation Code 2.3 - 8.1 10^3/mcL Workflow SS Neutrophils/100 WBC (Bld) 88.6 % Invalid Interpretation Code 50.0 - 75.0 % Workflow SS Phosphate [Mass/Vol] 2.5 mg/dL Invalid Interpretation Code 2.4 - 5.1 mg/dL ADM SS Platelet mean volume (Bld) [Entitic vol] 7.3 fL Invalid Interpretation Code 6.6 - 10.5 fL Workflow SS Platelets (Bld) [#/Vol] 279 103/mcL Invalid Interpretation Code 150 - 450 10^3/mcL Workflow SS Potassium [Moles/Vol] 4.2 mmol/L Invalid Interpretation Code 3.5 - 5.0 mEq/L ADM SS Comment on above: Result Comment: Spec imen slightly hemolyzed. RBC (Bld) [#/Vol] 3.72 106/mcL Invalid Interpretation Code 4.10 - 5.30 10^6/mcL AH Workflow SS Sodium [Moles/Vol] 141 mmol/L Invalid Interpretation Code 136 - 145 mEq/L ADM SS Urea nitrogen [Mass/Vol] 20.0 mg/dL Invalid Interpretation Code 8.0 - 22.0 mg/dL ADM SS Urea nitrogen/Creatinine [Mass ratio] 51.3 ratio Invalid Interpretation Code 10.0 - 22.0 ratio AH ADM SS WBC (Bld) [#/Vol] 11.7 103/mcL Invalid Interpretation Code 4.5 - 10.8 10^3/mcL AH Workflow SS LABORATORYOrdered By: Mayte Roachpp on 01-08-2023 ESR 15 minute reading (Bld) [Velocity] 109 mm/hr Invalid Interpretation Code 0 - 30 mm/hr AH Manual Heme SS LDHon 01-08-2023 LDH 263 U/L High 120-246 [facility] ([place]) Comment on above: Performed By: #### L IPID, GFR, PBNP, ADIFF, CBC, ANEU, BMP, MG #### [address] [address] MGon 01-08-2023 Magnesium [Mass/Vol] 1.8 mg/dL Normal 1.6-2.4 [facility] ([place]) Comment on above: Performed By: #### L IPID, GFR, PBNP, ADIFF, CBC, ANEU, BMP, MG #### [address] [address] PHOSon 01-08-2023 Phosphate [Mass/Vol] 2.5 mg/dL Normal 2.4-5.1 [facility] ([place]) Comment on above: Result Comment: No te - New Reference Range in effect 20 Performed By: #### L IPID, GFR, PBNP, ADIFF, CBC, ANEU, BMP, MG #### [address] [address] XR CHEST 2 VIEWSon 3 XR CHEST [...] 01/08/2023 1:58:59 PM Ordering Provider: WINIFRED Mora [facility] ([place]) .Auto Diffon 01-07-2023 Basophil, Absolute 0.0 10 3/mcL Normal 0.0-0.3 [facility]) Comment on above: Performed By: #### L IPID, GFR, PBNP, ADIFF, CBC, ANEU, BMP, MG #### [address] [address] Eosinophil, Absolute 0.0 10 3/mcL Normal 0.0-0.7 [facility] ([place]) Comment on above: Performed By: #### L IPID, GFR, PBNP, ADIFF, CBC, ANEU, BMP, MG #### [address] [address] Lymphocyte, Absolute 0.4 10 3/mcL Low 0.9-4.3 [facility] ([place]) Comment on above: Performed By: #### L IPID, GFR, PBNP, ADIFF, CBC, ANEU, BMP, MG #### [address] [address] Monocyte, Absolute 0.5 10 3/mcL Normal 0.1-1.4 [facility] ([place]) Comment on above: Performed By: #### L IPID, GFR, PBNP, ADIFF, CBC, ANEU, BMP, MG #### [address] [address] .Auto DiffOrdered By: SYSTEM SYSTEM on 01-07-2023 Basophils/100 WBC (Bld) 0.1 % Normal 0.0-2.5 Workflow SS Comment on above: Performed By: #### L IPID, GFR, PBNP, ADIFF, CBC, ANEU, BMP, MG #### [address] [address] Eosinophils/100 WBC (Bld) 0.0 % Normal 0.0-6.0 AH Workflow SS Comment on above: Performed By: #### L IPID, GFR, PBNP, ADIFF, CBC, ANEU, BMP, MG #### [address] [address] Lymphocytes/100 WBC (Bld) 4.6 % Low 20.0-40.0 AH Workflow SS Comment on above: Performed By: #### L IPID, GFR, PBNP, ADIFF, CBC, ANEU, BMP, MG #### [address] [address] Monocytes/100 WBC (Bld) 6.2 % Normal 2.0-13.0 AH Workflow SS Comment on above: Performed By: #### L IPID, GFR, PBNP, ADIFF, CBC, ANEU, BMP, MG #### [address] [address] Neutrophils/100 WBC (Bld) 89.1 % High 50.0-75.0 AH Workflow SS Comment on above: Performed By: #### L IPID, GFR, PBNP, ADIFF, CBC, ANEU, BMP, MG #### [address] [address] .GFRon 01-07-2023 GFR Non- >60 Normal [facility] ([place]) Comment on above: Result Comment: GFR Population [...] PBNP, ADIFF, CBC, ANEU, BMP, MG #### [address] [address] GFR >60 Normal [facility] ([place]) Comment on above: Result Comment: GFR Population [...] PBNP, ADIFF, CBC, ANEU, BMP, MG #### [address] [address] .NEUABSon 01-07-2023 Neutrophil, Absolute 7.4 10 3/mcL Normal 2.3-8.1 [facility] ([place]) Comment on above: Performed By: #### L IPID, GFR, PBNP, ADIFF, CBC, ANEU, BMP, MG #### [address] [address] BFPRon 01-07-2023 Body Fluid Path Review Negative for mark gnant cells. Marked acute inflammation present. Normal [facility] ([place]) Comment on above: Order Comment: Added by Discern Result Comment: Elec tronically signed by: GILBERTO BURNETTE 01.07.2023 12:29 EDT Performed By: #### L IPID, GFR, PBNP, ADIFF, CBC, ANEU, BMP, MG #### [address] [address] BMPon 01-07-2023 BUN/Creatinine Ratio 41.0 ratio High 10.0-22.0 [facility] ([place]) Comment on above: Performed By: #### L IPID, GFR, PBNP, ADIFF, CBC, ANEU, BMP, MG #### [address] [address] BMPOrdered By: SYSTEM SYSTEM on 01-07-2023 Calcium [Mass/Vol] 8.8 mg/dL Normal 8.7-10.4 AH ADM SS Comment on above: Performed By: #### L IPID, GFR, PBNP, ADIFF, CBC, ANEU, BMP, MG #### [place] [phone] Chloride [Moles/Vol] 108 mmol/L Normal 98-110 AH A DM SS Comment on above: Performed By: #### L IPID, GFR, PBNP, ADIFF, CBC, ANEU, BMP, MG #### [place] [phone] CO2 [Moles/Vol] 29 mmol/L Normal 22-32 AH ADM SS Comment on above: Performed By: #### L IPID, GFR, PBNP, ADIFF, CBC, ANEU, BMP, MG #### [place] [phone] Creatinine [Mass/Vol] 0.39 mg/dL Low 0.50-1.20 AH ADM SS Comment on above: Performed By: #### L IPID, GFR, PBNP, ADIFF, CBC, ANEU, BMP, MG #### [place] [address] Electrolyte Balance 3.0 mEq/L Low 4.0-15.0 AH AD M SS Comment on above: Performed By: #### L IPID, GFR, PBNP, ADIFF, CBC, ANEU, BMP, MG #### [place] [phone] Glucose [Mass/Vol] 200 mg/dL High 70-110 AH ADM SS Comment on above: Performed By: #### L IPID, GFR, PBNP, ADIFF, CBC, ANEU, BMP, MG #### [place] [phone] Potassium [Moles/Vol] 4.2 mmol/L Normal 3.5-5.0 AH ADM SS Comment on above: Performed By: #### L IPID, GFR, PBNP, ADIFF, CBC, ANEU, BMP, MG #### [place] [phone] Sodium [Moles/Vol] 140 mmol/L Normal 136-145 AH ADM SS Comment on above: Performed By: #### L IPID, GFR, PBNP, ADIFF, CBC, ANEU, BMP, MG #### [place] [phone] Urea nitrogen [Mass/Vol] 16.0 mg/dL Normal 8.0-22.0 AH ADM SS Comment on above: Performed By: #### L IPID, GFR, PBNP, ADIFF, CBC, ANEU, BMP, MG #### [place] [address] CBCOrdered By: SYSTEM SYSTEM on 01-07-2023 Erythrocyte distribution width (RBC) [Ratio] 14.2 % Normal 11.5-15.5 AH Workflow SS Comment on above: Performed By: #### L IPID, GFR, PBNP, ADIFF, CBC, ANEU, BMP, MG #### [place] [address] Hematocrit (Bld) [Volume fraction] 32.2 % Low 34.0-46.0 AH Workflow SS Comment on above: Performed By: #### L IPID, GFR, PBNP, ADIFF, CBC, ANEU, BMP, MG #### [place] [address] MCH (RBC) [Entitic mass] 28.7 pg Normal 27.0-33.0 AH Workflow SS Comment on above: Performed By: #### L IPID, GFR, PBNP, ADIFF, CBC, ANEU, BMP, MG #### [place] [address] MCHC 33.1 G/dL Normal 32.0-36.0 AH Workflow SS Comment on above: Performed By: #### L IPID, GFR, PBNP, ADIFF, CBC, ANEU, BMP, MG #### [place] [address] MCV (RBC) [Entitic vol] 86.8 fL Normal 80.0-99.0 AH Workflow SS Comment on above: Performed By: #### L IPID, GFR, PBNP, ADIFF, CBC, ANEU, BMP, MG #### [place] [address] Platelet mean volume (Bld) [Entitic vol] 7.3 fL Normal 6.6-10.5 AH Workflow SS Comment on above: Performed By: #### L IPID, GFR, PBNP, ADIFF, CBC, ANEU, BMP, MG #### [address] [address] CBCon 01-07-2023 Hgb 10.7 G/dL Low 12.0-16.0 [facility] ([place]) Comment on above: Performed By: #### L IPID, GFR, PBNP, ADIFF, CBC, ANEU, BMP, MG #### [place] [address] Platelet 245 10 3/mcL Normal 150-450 [facility] ([place]) Comment on above: Performed By: #### L IPID, GFR, PBNP, ADIFF, CBC, ANEU, BMP, MG #### [address] [address] RBC 3.71 10 6/mcL Low 4.10-5.30 [facility] ([place]) Comment on above: Performed By: #### L IPID, GFR, PBNP, ADIFF, CBC, ANEU, BMP, MG #### [place] [id number] WBC 8.3 10 3/mcL Normal 4.5-10.8 [facility] ([place]) Comment on above: Performed By: #### L IPID, GFR, PBNP, ADIFF, CBC, ANEU, BMP, MG #### [place] [address] CT THORAX W/O CONTRASTon CT THORAX W/O [...] Date: 01/07/2023 12:15:42 AM Ordering Provider: WINIFRED Mora [facility] ([place]) LABORATORYOrdered By: SYSTEM SYSTEM on 01-07-2023 Basophils (Bld) [#/Vol] 0.0 103/mcL Invalid Interpretation Code 0.0 - 0.3 10^3/mcL Workflow SS Eosinophils (Bld) [#/Vol] 0.0 103/mcL Invalid Interpretation Code 0.0 - 0.7 10^3/mcL Workflow SS GFR/1.73 sq M.predicted among blacks MDRD (S/P/Bld) [Vol rate/Area] ml/min/1.73sqm Invalid Interpretation Code ADM SS GFR/1.73 sq M.predicted among non-blacks MDRD (S/P/Bld) [Vol rate/Area] ml/min/1.73sqm Invalid Interpretation Code ADM SS Hemoglobin (Bld) [Mass/Vol] 10.7 G/dL Invalid Interpretation Code 12.0 - 16.0 G/dL AH Workflow SS Lymphocytes (Bld) [#/Vol] 0.4 103/mcL Invalid Interpretation Code 0.9 - 4.3 10^3/mcL AH Workflow SS Monocytes (Bld) [#/Vol] 0.5 103/mcL Invalid Interpretation Code 0.1 - 1.4 10^3/mcL AH Workflow SS Neutrophils (Bld) [#/Vol] 7.4 103/mcL Invalid Interpretation Code 2.3 - 8.1 10^3/mcL AH Workflow SS Platelets (Bld) [#/Vol] 245 103/mcL Invalid Interpretation Code 150 - 450 10^3/mcL Workflow SS RBC (Bld) [#/Vol] 3.71 106/mcL Invalid Interpretation Code 4.10 - 5.30 10^6/mcL AH Workflow SS Urea nitrogen/Creatinine [Mass ratio] 41.0 [...] Cholesterol [Mass/Vol] 119 mg/dL Normal 50-199 ADM SS Comment on above: Result Comment: Chol esterol Reference Interval: Less than 200 Desirable 200-239 Borderline high risk 240 and above High risk Performed By: #### L IPID, GFR, PBNP, ADIFF, CBC, ANEU, BMP, MG #### [place] [address] [place] [address] Cholesterol in HDL [Mass/Vol] 42 mg/dL Normal 40-59 AH ADM SS Comment on above: Performed By: #### L IPID, GFR, PBNP, ADIFF, CBC, ANEU, BMP, MG #### [place] [address] [place] [address] Cholesterol in LDL [Mass/Vol] 64 mg/dL Normal 0-129 ADM SS Comment on above: Performed By: #### L IPID, GFR, PBNP, ADIFF, CBC, ANEU, BMP, MG #### [place] [address] [place] [address] Triglyceride [Mass/Vol] 65 mg/dL Normal 3-149 AH ADM SS Comment on above: Performed By: #### L IPID, GFR, PBNP, ADIFF, CBC, ANEU, BMP, MG #### [address] [address] MGOrdered By: SYSTEM SYSTEM on 01-07-2023 Magnesium [Mass/Vol] 2.0 mg/dL Normal 1.6-2.4 AH A DM SS Comment on above: Performed By: #### L IPID, GFR, PBNP, ADIFF, CBC, ANEU, BMP, MG #### [address] [address] PBNPon 01-07-2023 Natriuretic peptide B (Bld) [Mass/Vol] 583 pg/mL Normal 0-900 [facility] ([place]) Comment on above: Result Comment: NT-p roBNP results of less than 300 pg/mL effectively rules out acute congestive heart failure with 99% negative predictive value. Performed By: #### L IPID, GFR, PBNP, ADIFF, CBC, ANEU, BMP, MG #### [address] [address] US CHESTon 01-07-2023 US CHEST ORIGINAL HISTORY: Effusion COMPARISON: Previous day FINDINGS: There is no drainable fluid collection. Interpreted by: Blanca Gutiérrez MD Preliminary Report By: Blanca Gutiérrez MD Electronically signed By Blanca Gutiérrez MD Dictated Date: 01/07/2023 10:00:13 AM Prelim Date: 01/07/2023 10:01:06 AM Sign Date: 01/07/2023 10:01:06 AM Ordering Provider: BONITA Mora [facility] ([place]) .Auto Diffon 01-06-2023 Basophil, Absolute 0.1 10 3/mcL Normal 0.0-0.3 [facility] ([place]) Comment on above: Performed By: #### L IPID, GFR, PBNP, ADIFF, CBC, ANEU, BMP, MG #### [address] [address] Basophils/100 WBC (Bld) 0.5 % Normal 0.0-2.5 [facility] ([place]) Comment on above: Performed By: #### L IPID, GFR, PBNP, ADIFF, CBC, ANEU, BMP, MG #### [address] [address] Eosinophil, Absolute 0.0 10 3/mcL Normal 0.0-0.7 [facility] ([place]) Comment on above: Performed By: #### L IPID, GFR, PBNP, ADIFF, CBC, ANEU, BMP, MG #### [address] [address] Eosinophils/100 WBC (Bld) 0.1 % Normal 0.0-6.0 [facility] ([place]) Comment on above: Performed By: #### L IPID, GFR, PBNP, ADIFF, CBC, ANEU, BMP, MG #### [address] [address] Lymphocyte, Absolute 0.9 10 3/mcL Normal 0.9-4.3 [facility] ([place]) Comment on above: Performed By: #### L IPID, GFR, PBNP, ADIFF, CBC, ANEU, BMP, MG #### [address] [address] Lymphocytes/100 WBC (Bld) 6.3 % Low 20.0-40.0 [facility] ([place]) Comment on above: Performed By: #### L IPID, GFR, PBNP, ADIFF, CBC, ANEU, BMP, MG #### [address] [address] Monocyte, Absolute 1.5 10 3/mcL High 0.1-1.4 [facility] ([place]) Comment on above: Performed By: #### L IPID, GFR, PBNP, ADIFF, CBC, ANEU, BMP, MG #### [address] [address] Monocytes/100 WBC (Bld) 10.4 % Normal 2.0-13.0 [facility] ([place]) Comment on above: Performed By: #### L IPID, GFR, PBNP, ADIFF, CBC, ANEU, BMP, MG #### [address] [address] Neutrophils/100 WBC (Bld) 82.7 % High 50.0-75.0 [facility] ([place]) Comment on above: Performed By: #### L IPID, GFR, PBNP, ADIFF, CBC, ANEU, BMP, MG #### [address] [address] .GFRon 01-06-2023 GFR >60 Normal [facility] ([place]) Comment on above: Result Comment: GFR Population [...] PBNP, ADIFF, CBC, ANEU, BMP, MG #### [address] [address] GFR Non- >60 Normal [facility] ([place]) Comment on above: Result Comment: GFR Population [...] PBNP, ADIFF, CBC, ANEU, BMP, MG #### [place] [address] [place] [address] .NEUABSon 01-06-2023 Neutrophil, Absolute 11.6 10 3/mcL High 2.3-8.1 A [facility] ([place]) Comment on above: Performed By: #### L IPID, GFR, PBNP, ADIFF, CBC, ANEU, BMP, MG #### [facility] [address] [place] [id number] AMYBFon 01-06-2023 Amylase [Catalytic activity/Vol] 22 U/L Normal [facility] ([place]) Comment on above: Order Comment: Brandona aminataesis left lung Performed By: #### L IPID, GFR, PBNP, ADIFF, CBC, ANEU, BMP, MG #### [address] [address] Amylase BF Type Thoracentesis Normal [facility] ([place]) Comment on above: Order Comment: Brandona aminataesis left lung Result Comment: The reference interval(s) [...] PBNP, ADIFF, CBC, ANEU, BMP, MG #### [place] [address] [place] [address] BFCTon 01-06-2023 Cells Counted BF 100 Normal [facility] ([place]) Comment on above: Order Comment: Left lung Performed By: #### L IPID, GFR, PBNP, ADIFF, CBC, ANEU, BMP, MG #### [address] [address] Lymphocytes/100 WBC (Bld) 2 % Normal [facility] ([place]) Comment on above: Order Comment: Left lung Performed By: #### L IPID, GFR, PBNP, ADIFF, CBC, ANEU, BMP, MG #### [place] [address] [place] [address] Mononuclear cell % BF 9 % Normal [facility] ([place]) Comment on above: Order Comment: Left lung Performed By: #### L IPID, GFR, PBNP, ADIFF, CBC, ANEU, BMP, MG #### [address] [address] Neutrophils/100 WBC (Bld) 89 % Normal [facility] ([place]) Comment on above: Order Comment: Left lung Performed By: #### L IPID, GFR, PBNP, ADIFF, CBC, ANEU, BMP, MG #### [address] [address] Body Fluid Source Thoracentesis Normal [facility] ([place]) Comment on above: Order Comment: Left lung [...] PBNP, ADIFF, CBC, ANEU, BMP, MG #### [address] [address] Total Nucleated Cells 2819 /mm3 Normal [facility] ([place]) Comment on above: Order Comment: Left lung Performed By: #### L IPID, GFR, PBNP, ADIFF, CBC, ANEU, BMP, MG #### [address] [address] BMPon 01-06-2023 BUN/Creatinine Ratio 50.0 ratio High 10.0-22.0 [facility] ([place]) Comment on above: Performed By: #### L IPID, GFR, PBNP, ADIFF, CBC, ANEU, BMP, MG #### [address] [address] Calcium [Mass/Vol] 8.3 mg/dL Low 8.7-10.4 [facility] ([place]) Comment on above: Performed By: #### L IPID, GFR, PBNP, ADIFF, CBC, ANEU, BMP, MG #### [address] [address] Chloride [Moles/Vol] 108 mmol/L Normal 98-110 [facility] ([place]) Comment on above: Performed By: #### L IPID, GFR, PBNP, ADIFF, CBC, ANEU, BMP, MG #### [address] [address] CO2 [Moles/Vol] 25 mmol/L Normal 22-32 [facility] ([place]) Comment on above: Performed By: #### L IPID, GFR, PBNP, ADIFF, CBC, ANEU, BMP, MG #### [place] [id number] Creatinine [Mass/Vol] 0.44 mg/dL Low 0.50-1.20 [facility] ([place]) Comment on above: Performed By: #### L IPID, GFR, PBNP, ADIFF, CBC, ANEU, BMP, MG #### [address] [address] Electrolyte Balance 7.0 mEq/L Normal 4.0-15.0 [facility] ([place]) Comment on above: Performed By: #### L IPID, GFR, PBNP, ADIFF, CBC, ANEU, BMP, MG #### [address] [address] Glucose [Mass/Vol] 169 mg/dL High 70-110 [facility] ([place]) Comment on above: Performed By: #### L IPID, GFR, PBNP, ADIFF, CBC, ANEU, BMP, MG #### [address] [address] Potassium [Moles/Vol] 3.6 mmol/L Normal 3.5-5.0 [facility] ([place]) Comment on above: Performed By: #### L IPID, GFR, PBNP, ADIFF, CBC, ANEU, BMP, MG #### [place] [address] Sodium [Moles/Vol] 140 mmol/L Normal 136-145 [facility] ([place]) Comment on above: Performed By: #### L IPID, GFR, PBNP, ADIFF, CBC, ANEU, BMP, MG #### [place] [address] Urea nitrogen [Mass/Vol] 22.0 mg/dL Normal 8.0-22.0 [facility] ([place]) Comment on above: Performed By: #### L IPID, GFR, PBNP, ADIFF, CBC, ANEU, BMP, MG #### [place] [address] CBCon 01-06-2023 Erythrocyte distribution width (RBC) [Ratio] 14.6 % Normal 11.5-15.5 [facility] ([place]) Comment on above: Performed By: #### L IPID, GFR, PBNP, ADIFF, CBC, ANEU, BMP, MG #### [place] [address] Hematocrit (Bld) [Volume fraction] 32.4 % Low 34.0-46.0 [facility] ([place] Comment on above: Performed By: #### L IPID, GFR, PBNP, ADIFF, CBC, ANEU, BMP, MG #### [place] [address] Hgb 10.3 G/dL Low 12.0-16.0 [facility] ([place] Comment on above: Performed By: #### L IPID, GFR, PBNP, ADIFF, CBC, ANEU, BMP, MG #### [place] [address] MCH (RBC) [Entitic mass] 28.3 pg Normal 27.0-33.0 [facility] ([place] Comment on above: Performed By: #### L IPID, GFR, PBNP, ADIFF, CBC, ANEU, BMP, MG #### [place] [address] MCHC 31.8 G/dL Low 32.0-36.0 [facility] ([place] Comment on above: Performed By: #### L IPID, GFR, PBNP, ADIFF, CBC, ANEU, BMP, MG #### [place] [address] MCV (RBC) [Entitic vol] 88.9 fL Normal 80.0-99.0 [facility] ([place] Comment on above: Performed By: #### L IPID, GFR, PBNP, ADIFF, CBC, ANEU, BMP, MG #### [place] [address] Platelet 272 10 3/mcL Normal 150-450 [facility] ([place]) Comment on above: Performed By: #### L IPID, GFR, PBNP, ADIFF, CBC, ANEU, BMP, MG #### [place] [address] Platelet mean volume (Bld) [Entitic vol] 7.3 fL Normal 6.6-10.5 [facility] ([place] Comment on above: Performed By: #### L IPID, GFR, PBNP, ADIFF, CBC, ANEU, BMP, MG #### [place] [address] RBC 3.65 10 6/mcL Low 4.10-5.30 [facility] ([place] Comment on above: Performed By: #### L IPID, GFR, PBNP, ADIFF, CBC, ANEU, BMP, MG #### [place] [address] WBC 14.0 10 3/mcL High 4.5-10.8 [facility] ([place] Comment on above: Performed By: #### L IPID, GFR, PBNP, ADIFF, CBC, ANEU, BMP, MG #### [place] [address] GLUBFon 01-06-2023 Glucose BF 168.0 mg/dL Normal [facility] ([place]) Comment on above: Order Comment: Left lung Performed By: #### L IPID, GFR, PBNP, ADIFF, CBC, ANEU, BMP, MG #### [place] [address] [place] [id number] Glucose Body Fluid Spec Type Thoracentesis Normal [facility] ([place]) Comment on above: Order Comment: Left lung [...] PBNP, ADIFF, CBC, ANEU, BMP, MG #### [place] [address] [place] [id number] LABORATORYOrdered By: Guadalupe Barboza on 01-06-2023 Appearance [...] 30 mg/dL Invalid Interpretation Code Negativemg /dL AH Auto Urine SS UA Spec Grav >=1.030 *ABN* (01/06/23 4:40 PM) Invalid Interpretation Code 1.006-1.02 9 AH Auto Urine SS UA Specimen Type Clean Catch (01/06/23 4:40 PM) Invalid Interpretation Code Auto Urine SS UA Urobilinogen 1.0 E.U./dL Invalid Interpretation Code 0.2-1.0E.U ./dL AH Auto Urine SS LABORATORYOrdered By: SYSTEM SYSTEM [...] Invalid Interpretation Code 0.550 - 4.780 mIU/mL ADM SS LABORATORYOrdered By: Charli Lopez on 01-06-2023 Amylase BF Type Thoracentesis 5 (01/06/23 11:17 AM) Invalid Interpretation Code Chemistry [...] 8 (01/06/23 11:17 AM) Invalid Interpretation Code AH Chemistry S Comment on above: Result Comment: Body Fluid received with Thoracentesis label on it and Pleural specimen source in Cerner. Specimen Source - Thoracentesis per Dena Dorantes RN. 01/06/2023 13:18:30 EDT AD Nucleated RBC/100 WBC (Bld) [Ratio] 2819 % Invalid Interpretation Code Manual Heme SS Protein BF Type Thoracentesis 4 (01/06/23 11:17 AM) Invalid Interpretation Code Chemistry S Comment on above: Result Comment: Body Fluid received with Thoracentesis label on it and Pleural specimen source in Cerner. Specimen Source - Thoracentesis per Dena Dorantes RN. 01/06/2023 13:18:30 EDT AD Specimen source Nom (Body fld) Thoracentesis 3 (01/06/23 11:17 AM) Invalid Interpretation Code Manual Heme SS Comment on above: Result Comment: Body Fluid received with Thoracentesis label on it and Pleural specimen source in Cerner. Specimen Source - Thoracentesis per Dena Dorantes RN. 01/06/2023 13:18:30 EDT AD LABORATORYOrdered By: GILBERTO BURNETTE on 01-06-2023 Body Fluid Path Review Negative for mark gnant cells. Marked acute inflammation present. Invalid Interpretation Code Path Review Subsection Work Phone: LABORATORYOrdered By: James Francis on 01-06-2023 Cells Counted Total (Unsp spec) [#] 100 Invalid Interpretation Code AH Manual Heme SS Lymphocytes/100 WBC (Body fld) 2 % Invalid Interpretation Code AH Manual Heme SS Monocytes+Macrophages/ 100 WBC (Body fld) 9 1 Invalid Interpretation Code AH Manual Heme SS Neutrophils/100 WBC (Body fld) 89 % Invalid Interpretation Code AH Manual Heme SS LABORATORYOrdered By: Roxanne Mcgowan on 01-06-2023 pH BF 7.4 Invalid Interpretation Code Auto Chem SS pH BF Type Thoracentesis 6 (01/06/23 11:17 AM) Invalid Interpretation Code Auto Chem SS Comment on above: Result Comment: Body Fluid received with Thoracentesis label on it and Pleural specimen source in Cerner. Specimen Source - Thoracentesis per Dena Dorantes RN. 01/06/2023 13:18:30 EDT AD LABORATORYOrdered By: Bertha Moctezuma on 01-06-2023 Natriuretic peptide.B prohormone N-Terminal [Mass/Vol] 272 pg/mL Invalid Interpretation Code 0 - 900 pg/mL AH Auto Chem SS LDBFon 01-06-2023 LDH BF 151.0 U/L Normal [facility] ([place]) Comment on above: Order Comment: Jayda coatesesis left lung Performed By: #### L IPID, GFR, PBNP, ADIFF, CBC, ANEU, BMP, MG #### [address] [address] LDH Body Fluid Spec Type Thoracentesis Normal [facility] ([place]) Comment on above: Order Comment: Brandona centesis left lung Result Comment: The reference [...] PBNP, ADIFF, CBC, ANEU, BMP, MG #### [address] [address] MGon 01-06-2023 Magnesium [Mass/Vol] 1.6 mg/dL Normal 1.6-2.4 [facility] ([place]) Comment on above: Performed By: #### L IPID, GFR, PBNP, ADIFF, CBC, ANEU, BMP, MG #### [address] [address] No Panel Informationon 01-06 Culture Body Fluid Culture has been rec eived in lab and is no growth to date. Routine cultures are held for 5 days. [facility] Work Phone: GS Sedimented 3+ Polymorphonuclear cells 2+ Mononuclear cells No organisms seen. [facility] Work Phone: PBNPon 01-06-2023 Natriuretic peptide B (Bld) [Mass/Vol] 272 pg/mL Normal 0-900 [facility] ([place]) Comment on above: Result Comment: NT-p roBNP results of less than 300 pg/mL effectively rules out acute congestive heart failure with 99% negative predictive value. Performed By: #### L IPID, GFR, PBNP, ADIFF, CBC, ANEU, BMP, MG #### [address] 01-06-2023 pH BF Spec Type Thoracentesis Normal [facility] ([place]) Comment on above: Order Comment: Thora centesis [...] PBNP, ADIFF, CBC, ANEU, BMP, MG #### [place] [address] pH BF 7.4 Normal [facility] ([place]) Comment on above: Order Comment: Thora centesis left lung Performed By: #### L IPID, GFR, PBNP, ADIFF, CBC, ANEU, BMP, MG #### [address] 01-06-2023 Protein BF 3.1 G/dL Normal [facility] ([place]) Comment on above: Order Comment: Thora centesis fluid Performed By: #### L IPID, GFR, PBNP, ADIFF, CBC, ANEU, BMP, MG #### [place] [address] Protein BF Type Thoracentesis Normal [facility] ([place]) Comment on above: Order Comment: Thora centesis [...] PBNP, ADIFF, CBC, ANEU, BMP, MG #### [place] [id number] TROPHSon 01-06-2023 Troponin I High Sensitivity 3.84 ng/L Normal 0.00-34.00 [facility] ([place]) Comment on above: Result Comment: If t he High Sensitive Troponin result is below the 99th percentile value (<45 ng/L) at the first blood draw, at least two additional blood samples should be drawn before results are interpreted as negative for AMI. Performed By: #### T JOSE #### [place] [address] Troponin I High Sensitivity <2.50 Normal 0.00-34.00 [facility] ([place]) Comment on above: Result Comment: If t he High Sensitive Troponin result is below the 99th percentile value (<45 ng/L) at the first blood draw, at least two additional blood samples should be drawn before results are interpreted as negative for AMI. Performed By: #### L IPID, GFR, PBNP, ADIFF, CBC, ANEU, BMP, MG #### [place] [address] TSHon 01-06-2023 TSH 0.135 mIU/mL Low 0.550-4.78 0 [facility] ([place]) Comment on above: Result Comment: No te - New Reference Range in effect 20 Performed By: #### L IPID, GFR, PBNP, ADIFF, CBC, ANEU, BMP, MG #### [place] [id number] UAon 01-06-2023 Color (U) DARK YELLOW Normal [facility] ([place]) Comment on above: Performed By: #### L IPID, GFR, PBNP, ADIFF, CBC, ANEU, BMP, MG #### [place] [address] Glucose (U) [Mass/Vol] Negative Normal Negative [facility] ([place]) Comment on above: Performed By: #### L IPID, GFR, PBNP, ADIFF, CBC, ANEU, BMP, MG #### [address] [address] Ketones Ql (U) Negative Normal Neg-Trace [facility] ([place]) Comment on above: Performed By: #### L IPID, GFR, PBNP, ADIFF, CBC, ANEU, BMP, MG #### [place] [address] UA Appear Clear Normal Clear [facility] ([place]) Comment on above: Performed By: #### L IPID, GFR, PBNP, ADIFF, CBC, ANEU, BMP, MG #### [address] [address] UA Blood Negative Normal Neg-Trace [facility] ([place]) Comment on above: Performed By: #### L IPID, GFR, PBNP, ADIFF, CBC, ANEU, BMP, MG #### [place] [address] UA Leuk Est Negative Normal Negative [facility] ([place]) Comment on above: Performed By: #### L IPID, GFR, PBNP, ADIFF, CBC, ANEU, BMP, MG #### [address] [address] UA Nitrite Negative Normal Negative [facility] ([place]) Comment on above: Performed By: #### L IPID, GFR, PBNP, ADIFF, CBC, ANEU, BMP, MG #### [place] [address] UA pH 5.5 Normal 5.0 - 8.0 [facility] ([place]) Comment on above: Performed By: #### L IPID, GFR, PBNP, ADIFF, CBC, ANEU, BMP, MG #### [place] [address] UA Protein 30 mg/dL Normal Negative [facility] ([place] Comment on above: Performed By: #### L IPID, GFR, PBNP, ADIFF, CBC, ANEU, BMP, MG #### [address] [address] UA Spec Grav >=1.030 Abnormal 1.006-1.02 9 [facility] ([place]) Comment on above: Performed By: #### L IPID, GFR, PBNP, ADIFF, CBC, ANEU, BMP, MG #### [address] [address] UA Specimen Type Clean Catch Normal [facility] ([place]) Comment on above: Performed By: #### L IPID, GFR, PBNP, ADIFF, CBC, ANEU, BMP, MG #### [address] [address] UA Urobilinogen 1.0 E.U./dL Normal 0.2-1.0 [facility] ([place]) Comment on above: Performed By: #### L IPID, GFR, PBNP, ADIFF, CBC, ANEU, BMP, MG #### [address] [address] Urobilinogen (U) [Mass/Vol] Negative Normal Neg-Trace [facility] ([place]) Comment on above: Performed By: #### L IPID, GFR, PBNP, ADIFF, CBC, ANEU, BMP, MG #### [address] [address] XR CHEST 1 VIEWon 01-06-2023 XR CHEST [...] 01/06/2023 12:20:37 PM Ordering Provider: ROSA LIZ [facility] ([place]) XR CHEST 1 VIEW ORIGINAL EXAMINATION: ONE [...] 01/06/2023 12:15:56 PM Ordering Provider: SHANDA ELLIOTT [facility] ([place]) Absolute lymphocyte countOrd ered By: Wayne Germain on 01-05-2023 Lymphocytes Auto (Unsp spec) [#/Vol] 1.04 10*3/uL 0.83-4.51 [facility] Basophil percentageOrdered B y: Wayne Germain on 01-05-2023 Basophils/100 WBC (Bld) 0.4 % 0-1 [facility] Chloride [Moles/Vol] 107 mmol/L 98-107 [facility] Eosinophils/100 WBC (Bld) 2.3 % 0-5 [facility] Glucose [Mass/Vol] 172 mg/dL 74-106 [facility] Comment on above: Fasting Glucose resu lt greater than or equal to 126 mg/dL suggests DIABETES MELLITUS per A.D.A. criteria. Neutrophils (Bld) [#/Vol] 7.9 10*3/uL 2.0-7.7 [facility] Neutrophils/100 WBC (Bld) 76.7 % 47-70 [facility] Potassium [Moles/Vol] 3.5 mmol/L 3.5-5.1 [facility] Sodium [Moles/Vol] 139 mmol/L 136-145 [facility] WBC (Bld) [#/Vol] 10.3 10*3/uL 4.4-11.0 [facility] Blood erythrocytes count (nu mber/volume)Ordered By: Wayne Germain on 01-05-2023 RBC (Bld) [#/Vol] 3.87 10*6/uL 4.2-5.4 [facility] Blood hemoglobin measurement (mass/volume)Ordered By: Wayne Germain on 01-05-2023 Hemoglobin (Bld) [Mass/Vol] 11.0 g/dL 12.0-15.0 [facility] Blood lymphocytes/100 leukoc ytesOrdered By: Wayne Germain on 01-05-2023 Lymphocytes/100 WBC (Bld) 10.1 % 19-41 [facility] Blood monocytes/100 leukocyt esOrdered By: Wayne Germain on 01-05-2023 Monocytes/100 WBC (Bld) 10.0 % 0-10 [facility] Blood platelet mean volumeOr dered By: Wayne Germain on 01-05-2023 Platelet mean volume (Bld) [Entitic vol] 9.6 fL 6.2-12.0 [facility] Determination of erythrocyte mean corpuscular volume (MCV)Ordered By: Wayne Germain on 01-05-2023 MCV (RBC) [Entitic vol] 89.9 fL 81-99 [facility] Hematocrit Auto (Bld) [Volum e fraction]Ordered By: Wayne Germain on 01-05-2023 Hematocrit (Bld) [Volume fraction] 34.8 % 37-47 [facility] Laboratory - Chemistry and C hemistry - challengeOrdered By: Wayne Germain on 01-05-2023 CO2 [Moles/Vol] 27.0 mmol/L 21.0-32.0 [facility] Natriuretic peptide B (Bld) [Mass/Vol] 45.4 pg/mL 0-100 [facility] Urea nitrogen/Creatinine [Mass ratio] 29.9 mg/mg 10-20 [facility] Laboratory - Hematology and Cell countsOrdered By: Wayne Germain on 01-05-2023 Erythrocyte distribution width (RBC) [Entitic vol] 45.4 fL 35.1-43.9 [facility] Erythrocyte distribution width (RBC) [Ratio] 13.9 % 11.6-14.6 [facility] Immature granulocytes/100 WBC (Bld) 0.500 % 0.0-0.9 [facility] Comment on above: IG% - Immature Granu locytes (promyelocytes, myelocytes and metamyelocytes) > 1% indicates that a LEFT SHIFT is Present. MCH (RBC) [Entitic mass] 28.4 pg 27.0-32.0 [facility] Nucleated RBC/100 WBC (Bld) [Ratio] 0 % 0-5 [facility] MCHC Auto (RBC) [Mass/Vol]Or dered By: Wayne Germain on 01-05-2023 MCHC (RBC) [Mass/Vol] 31.6 g/dL 32-36 [facility] No Panel InformationOrdered By: Wayne Germain on 01-05-2023 D-Dimer Quantitative (PE/DVT) 5.70 FEU/ug/m 0.27-0.49 [facility] Comment on above: D-Dimer ELEVATED (>0 .49): Additional studies and clinicalassessments are indicated to conclude diagnosis of:Deep Vein Thrombosis (DVT) or Pulmonary Embolism (PE)CRITICAL VALUE VERIFIED. CALLED TO IREHUD76/11/23 2624 Lynne Barrientos.RESULTS READ BACK BY SAME . Estimated Creatinine Clearance Calc 83.51 ml/min [facility] Estimated GFR (MDRD) Amer 131 mL/min >60 [facility] Comment on above: GFR Calc Estimated GFR (MDRD) Non-Af Amer 108 mL/min >60 [facility] Comment on above: Non- GFR Calc Troponin I High Sensitivity 6 pg/mL 3.0-54.0 [facility] Comment on above: Please Note: New [place] t Units and Gender Specific Reference Ranges. For more information see Policy Stat Procedure [facility] High Sensitivity Troponin (TNIH) and attachments. Platelets bldOrdered By: Jasson Germain on 01-05-2023 Platelets (Bld) [#/Vol] 278 10*3/uL 150-450 [facility] Serum or plasma calcium jasiel urement (mass/volume)Ordered By: Wayne Germain on 01-05-2023 Calcium [Mass/Vol] 9.1 mg/dL 8.5-10.1 [facility] Serum or plasma creatinine m easurement (mass/volume)Ordered By: Wayne Germain on 01-05-2023 Creatinine [Mass/Vol] 0.60 mg/dL 0.55-1.02 [facility] Comment on above: The validity of the calculated GFR & GFRAA in patients over 70 years has not been determined. Clinical correlation is essential. Serum or plasma urea nitroge n measurement (mass/volume)Ordered By: Wayne Germain on 01-05-2023 Urea nitrogen [Mass/Vol] 18 mg/dL 7-18 [facility] Thin prep Papanicolaou smear with manual screeningOrdered By: Wayne Germain on 01-05-2023 Thin prep Papanicolaou smear with manual screening 5 5-15 [facility] Absolute lymphocyte countOrd ered By: Becca Nelson on 01-03-2023 Lymphocytes Auto (Unsp spec) [#/Vol] 1.81 10*3/uL 0.83-4.51 [facility] Basophil percentageOrdered B y: Becca Nelson on 01-03-2023 Basophils/100 WBC (Bld) 0.4 % 0-1 [facility] Chloride [Moles/Vol] 110 mmol/L 98-107 [facility] Eosinophils/100 WBC (Bld) 2.9 % 0-5 [facility] Glucose [Mass/Vol] 130 mg/dL 74-106 [facility] Comment on above: Fasting Glucose resu lt greater than or equal to 126 mg/dL suggests DIABETES MELLITUS per A.D.A. criteria. Neutrophils (Bld) [#/Vol] 6.1 10*3/uL 2.0-7.7 [facility] Neutrophils/100 WBC (Bld) 66.6 % 47-70 [facility] Potassium [Moles/Vol] 3.8 mmol/L 3.5-5.1 [facility] Sodium [Moles/Vol] 141 mmol/L 136-145 [facility] WBC (Bld) [#/Vol] 9.2 10*3/uL 4.4-11.0 [facility] Blood erythrocytes count (nu mber/volume)Ordered By: Becca Nelson on 07-09-2023 RBC (Bld) [#/Vol] 3.89 10*6/uL 4.2-5.4 [facility] Blood hemoglobin measurement (mass/volume)Ordered By: Becca Nelson on 01-03-2023 Hemoglobin (Bld) [Mass/Vol] 11.3 g/dL 12.0-15.0 [facility] Blood lymphocytes/100 leukoc ytesOrdered By: Becca Nelson on 01-03-2023 Lymphocytes/100 WBC (Bld) 19.6 % 19-41 [facility] Blood monocytes/100 leukocyt esOrdered By: Becca Nelson on 01-03-2023 Monocytes/100 WBC (Bld) 10.2 % 0-10 [facility] Blood platelet mean volumeOr dered By: Becca Nelson on 01-03-2023 Platelet mean volume (Bld) [Entitic vol] 9.4 fL 6.2-12.0 [facility] Determination of erythrocyte mean corpuscular volume (MCV)Ordered By: Becca Nelson on 01-03-2023 MCV (RBC) [Entitic vol] 91.5 fL 81-99 [facility] Hematocrit Auto (Bld) [Volum e fraction]Ordered By: Becca Nelson on 01-03-2023 Hematocrit (Bld) [Volume fraction] 35.6 % 37-47 [facility] Laboratory - Chemistry and C hemistry - challengeOrdered By: Becca Nelson on 01-03-2023 CO2 [Moles/Vol] 28.0 mmol/L 21.0-32.0 [facility] Urea nitrogen/Creatinine [Mass ratio] 34.5 mg/mg 10-20 [facility] Laboratory - Hematology and Cell countsOrdered By: Becca Nelson on 01-03-2023 Erythrocyte distribution width (RBC) [Entitic vol] 46.7 fL 35.1-43.9 [facility] Erythrocyte distribution width (RBC) [Ratio] 13.9 % 11.6-14.6 [facility] Immature granulocytes/100 WBC (Bld) 0.300 % 0.0-0.9 [facility] Comment on above: IG% - Immature Granu locytes (promyelocytes, myelocytes and metamyelocytes) > 1% indicates that a LEFT SHIFT is Present. MCH (RBC) [Entitic mass] 29.0 pg 27.0-32.0 [facility] Nucleated RBC/100 WBC (Bld) [Ratio] 0 % 0-5 [facility] MCHC Auto (RBC) [Mass/Vol]Or dered By: Becca Nelson on 01-03-2023 MCHC (RBC) [Mass/Vol] 31.7 g/dL 32-36 [facility] No Panel InformationOrdered By: Becca Nelson on 01-03-2023 Estimated Creatinine Clearance Calc 91.10 ml/min [facility] Estimated GFR (MDRD) Amer 145 mL/min >60 [facility] Comment on above: GFR Calc Estimated GFR (MDRD) Non-Af Amer 120 mL/min >60 [facility] Comment on above: Non- GFR Calc Troponin I High Sensitivity 6 pg/mL 3.0-54.0 [facility] Comment on above: Please Note: [place] t Units and Gender Specific Reference Ranges. For more information see Policy Stat Procedure [facility] High Sensitivity Troponin (TNIH) and attachments. Platelets bldOrdered By: Jessi Nelson on 01-03-2023 Platelets (Bld) [#/Vol] 242 10*3/uL 150-450 [facility] Serum or plasma calcium jasiel urement (mass/volume)Ordered By: Becca Nelson on 01-03-2023 Calcium [Mass/Vol] 9.2 mg/dL 8.5-10.1 [facility] Serum or plasma creatinine m easurement (mass/volume)Ordered By: Becca Nelson on 01-03-2023 Creatinine [Mass/Vol] 0.55 mg/dL 0.55-1.02 [facility] Comment on above: The validity of the calculated GFR & GFRAA in patients over 70 years has not been determined. Clinical correlation is essential. Serum or plasma urea nitroge n measurement (mass/volume)Ordered By: Becca Nelson on 01-03-2023 Urea nitrogen [Mass/Vol] 19 mg/dL 7-18 [facility] Thin prep Papanicolaou smear with manual screeningOrdered By: Becca Nelson on 01-03-2023 Thin prep Papanicolaou smear with manual screening 3 5-15 [facility] Absolute lymphocyte countOrd ered By: Diana Ramos on 01-01-2023 Lymphocytes Auto (Unsp spec) [#/Vol] 1.75 10*3/uL 0.83-4.51 [facility] Basophil percentageOrdered B y: Diana Ramos on 01-01-2023 Basophils/100 WBC (Bld) 0.4 % 0-1 [facility] Bilirubin [Mass/Vol] 0.30 mg/dL 0.20-1.00 [facility] Comment on above: For patients on eltr ombopag therapy, use of Dimension [facility] TBIL is not recommended. Chloride [Moles/Vol] 109 mmol/L 98-107 [facility] Eosinophils/100 WBC (Bld) 2.3 % 0-5 [facility] Glucose [Mass/Vol] 131 mg/dL 74-106 [facility] Comment on above: Fasting Glucose resu lt greater than or equal to 126 mg/dL suggests DIABETES MELLITUS per A.D.A. criteria. Neutrophils (Bld) [#/Vol] 6.2 10*3/uL 2.0-7.7 [facility] Neutrophils/100 WBC (Bld) 69.4 % 47-70 [facility] Potassium [Moles/Vol] 3.8 mmol/L 3.5-5.1 [facility] Protein [Mass/Vol] 7.4 g/dL 6.4-8.2 [facility] Sodium [Moles/Vol] 141 mmol/L 136-145 [facility] WBC (Bld) [#/Vol] 9.0 10*3/uL 4.4-11.0 [facility] Blood erythrocytes count (nu mber/volume)Ordered By: Diana Ramos on 01-01-2023 RBC (Bld) [#/Vol] 3.95 10*6/uL 4.2-5.4 [facility] Blood hemoglobin measurement (mass/volume)Ordered By: Diana Ramos on 01-01-2023 Hemoglobin (Bld) [Mass/Vol] 11.3 g/dL 12.0-15.0 [facility] Blood lymphocytes/100 leukoc ytesOrdered By: Diana Ramos on 01-01-2023 Lymphocytes/100 WBC (Bld) 19.5 % 19-41 [facility] [facility] Blood monocytes/100 leukocyt esOrdered By: Diana Ramos on 01-01-2023 Monocytes/100 WBC (Bld) 8.0 % 0-10 [facility] Blood platelet mean volumeOr dered By: Diana Ramos on 01-01-2023 Platelet mean volume (Bld) [Entitic vol] 9.8 fL 6.2-12.0 [facility] Determination of erythrocyte mean corpuscular volume (MCV)Ordered By: [facility] Rachel on 01-01-2023 MCV (RBC) [Entitic vol] 92.2 fL 81-99 [facility] Hematocrit Auto (Bld) [Volum e fraction]Ordered By: [facility] Rachel on 01-01-2023 Hematocrit (Bld) [Volume fraction] 36.4 % 37-47 [facility] Laboratory - Chemistry and C hemistry - challengeOrdered By: Diana Ramos on 01-01-2023 ALP [Catalytic activity/Vol] 85 U/L 45-117 [facility] ALT [Catalytic activity/Vol] 24 U/L 13-56 [facility] CO2 [Moles/Vol] 26.0 mmol/L 21.0-32.0 [facility] Globulin (S) [Mass/Vol] 4.7 g/dL 2.2-4.2 [facility] Urea nitrogen/Creatinine [Mass ratio] 37.5 mg/mg 10-20 [facility] Laboratory - Hematology and Cell countsOrdered By: Dianaprasanna Ramos on 01-01-2023 Erythrocyte distribution width (RBC) [Entitic vol] 47.6 fL 35.1-43.9 [facility] Erythrocyte distribution width (RBC) [Ratio] 13.9 % 11.6-14.6 [facility] Immature granulocytes/100 WBC (Bld) 0.400 % 0.0-0.9 [facility] Comment on above: IG% - Immature Granu locytes (promyelocytes, myelocytes and metamyelocytes) > 1% indicates that a LEFT SHIFT is Present. MCH (RBC) [Entitic mass] 28.6 pg 27.0-32.0 [facility] Nucleated RBC/100 WBC (Bld) [Ratio] 0 % 0-5 [facility] MCHC Auto (RBC) [Mass/Vol]Or dered By: Diana Ramos on 01-01-2023 MCHC (RBC) [Mass/Vol] 31.0 g/dL 32-36 [facility] No Panel InformationOrdered By: Diana Ramos on 01-01-2023 Estimated GFR (MDRD) Amer 135 mL/min >60 [facility] Comment on above: GFR Calc Estimated GFR (MDRD) Non-Af Amer 111 mL/min >60 [facility] Comment on above: Non- GFR Calc Platelets bldOrdered By: Katarina Ramos on 01-01-2023 Platelets (Bld) [#/Vol] 245 10*3/uL 150-450 [facility] Serum or plasma albumin jasiel urement (mass/volume)Ordered By: Diana Ramos on 01-01-2023 Albumin [Mass/Vol] 2.7 g/dL 3.2-5.0 [facility] Serum or plasma albumin/glob ulin mass ratioOrdered By: Diana Ramos on 01-01-2023 Albumin/Globulin [Mass ratio] 0.6 {ratio} 0.9-2.4 [facility] Serum or plasma calcium jasiel urement (mass/volume)Ordered By: Diana Ramos on 01-01-2023 Calcium [Mass/Vol] 9.0 mg/dL 8.5-10.1 [facility] Serum or plasma creatinine m easurement (mass/volume)Ordered By: Diana Ramos on 01-01-2023 Creatinine [Mass/Vol] 0.59 mg/dL 0.55-1.02 [facility] Comment on above: The validity of the calculated GFR & GFRAA in patients over 70 years has not been determined. Clinical correlation is essential. Serum or plasma urea nitroge n measurement (mass/volume)Ordered By: Diana Ramos on 01-01-2023 Urea nitrogen [Mass/Vol] 22 mg/dL 7-18 [facility] Thin prep Papanicolaou smear with manual screeningOrdered By: Diana Ramos on 01-01-2023 Thin prep Papanicolaou smear with manual screening 16 U/L 15-37 [facility] Thin prep Papanicolaou smear with manual screening 6 5-15 [facility] Absolute lymphocyte countOrd ered By: Dr. Rmaos on 10-27-2022 Lymphocytes Auto (Unsp spec) [#/Vol] 1.60 10*3/uL 0.83-4.51 [facility] Basophil percentageOrdered B y: Dr. Ramos on 10-27-2022 Basophils/100 WBC (Bld) 0.6 % 0-1 [facility] Bilirubin [Mass/Vol] 0.30 mg/dL 0.20-1.00 [facility] Comment on above: For patients on eltr ombopag therapy, use of Dim[facility] TBIL is not recommended. Chloride [Moles/Vol] 108 mmol/L 98-107 [facility] Eosinophils/100 WBC (Bld) 5.5 % 0-5 [facility] Glucose [Mass/Vol] 119 mg/dL 74-106 [facility] Comment on above: Fasting Glucose resu lt from 100 to 125 mg/dL suggests IMPAIRED HOMEOSTASIS per A.D.A. criteria. Neutrophils (Bld) [#/Vol] 4.2 10*3/uL 2.0-7.7 [facility] Neutrophils/100 WBC (Bld) 61.7 % 47-70 [facility] Potassium [Moles/Vol] 4.1 mmol/L 3.5-5.1 [facility] Protein [Mass/Vol] 7.4 g/dL 6.4-8.2 [facility] Sodium [Moles/Vol] 139 mmol/L 136-145 [facility] WBC (Bld) [#/Vol] 6.9 10*3/uL 4.4-11.0 [facility] Blood erythrocytes count (nu mber/volume)Ordered By: Dr. Ramos on 10-27-2022 RBC (Bld) [#/Vol] 4.61 10*6/uL 4.2-5.4 [facility] Blood hemoglobin measurement (mass/volume)Ordered By: Dr. Ramos on 10-27-2022 Hemoglobin (Bld) [Mass/Vol] 13.5 g/dL 12.0-15.0 [facility] Blood lymphocytes/100 leukoc ytesOrdered By: Dr. Ramos on 10-27-2022 Lymphocytes/100 WBC (Bld) 23.4 % 19-41 [facility] Blood monocytes/100 leukocyt esOrdered By: Dr. Ramos on 10-27-2022 Monocytes/100 WBC (Bld) 8.5 % 0-10 [facility] Blood platelet mean volumeOr dered By: Dr. Ramos on 10-27-2022 Platelet mean volume (Bld) [Entitic vol] 11.3 fL 6.2-12.0 [facility] Determination of erythrocyte mean corpuscular volume (MCV)Ordered By: Dr. Ramos on 10-27-2022 MCV (RBC) [Entitic vol] 90.2 fL 81-99 [facility] Hematocrit Auto (Bld) [Volum e fraction]Ordered By: Dr. Ramos on 10-27-2022 Hematocrit (Bld) [Volume fraction] 41.6 % 37-47 [facility] Laboratory - Chemistry and C hemistry - challengeOrdered By: Dr. Ramos on 10-27-2022 ALP [Catalytic activity/Vol] 90 U/L 45-117 [facility] ALT [Catalytic activity/Vol] 24 U/L 13-56 [facility] CO2 [Moles/Vol] 27.0 mmol/L 21.0-32.0 [facility] Globulin (S) [Mass/Vol] 3.9 g/dL 2.2-4.2 [facility] Urea nitrogen/Creatinine [Mass ratio] 25.0 mg/mg 10-20 [facility] Laboratory - Hematology and Cell countsOrdered By: Dr. Ramos on 10-27-2022 Erythrocyte distribution width (RBC) [Entitic vol] 46.2 fL 35.1-43.9 [facility] Erythrocyte distribution width (RBC) [Ratio] 13.9 % 11.6-14.6 [facility] Immature granulocytes/100 WBC (Bld) 0.300 % 0.0-0.9 [facility] Comment on above: IG% - Immature Granu locytes (promyelocytes, myelocytes and metamyelocytes) > 1% indicates that a LEFT SHIFT is Present. MCH (RBC) [Entitic mass] 29.3 pg 27.0-32.0 [facility] Nucleated RBC/100 WBC (Bld) [Ratio] 0 % 0-5 [facility] MCHC Auto (RBC) [Mass/Vol]Or dered By: Dr. Ramos on 10-27-2022 MCHC (RBC) [Mass/Vol] 32.5 g/dL 32-36 [facility] No Panel InformationOrdered By: Dr. Ramos on 10-27-2022 Estimated GFR (MDRD) Amer 95 mL/min >60 [facility] Comment on above: GFR Calc Estimated GFR (MDRD) Non-Af Amer 78 mL/min >60 [facility] Comment on above: Non- GFR Calc Platelets bldOrdered By: Dr. Ramos on 10-27-2022 Platelets (Bld) [#/Vol] 171 10*3/uL 150-450 [facility] Serum or plasma albumin jasiel urement (mass/volume)Ordered By: Dr. Ramos on 10-27-2022 Albumin [Mass/Vol] 3.5 g/dL 3.2-5.0 [facility] Serum or plasma albumin/glob ulin mass ratioOrdered By: Dr. Ramos on 10-27-2022 Albumin/Globulin [Mass ratio] 0.9 {ratio} 0.9-2.4 [facility] Serum or plasma calcium jasiel urement (mass/volume)Ordered By: Dr. Ramos on 10-27-2022 Calcium [Mass/Vol] 9.2 mg/dL 8.5-10.1 [facility] Serum or plasma creatinine m easurement (mass/volume)Ordered By: Dr. Ramos on 10-27-2022 Creatinine [Mass/Vol] 0.80 mg/dL 0.55-1.02 [facility] Comment on above: The validity of the calculated GFR & GFRAA in patients over 70 years has not been determined. Clinical correlation is essential. Serum or plasma urea nitroge n measurement (mass/volume)Ordered By: Dr. Ramos on 10-27-2022 Urea nitrogen [Mass/Vol] 20 mg/dL 7-18 [facility] Thin prep Papanicolaou smear with manual screeningOrdered By: Dr. Ramos on 10-27-2022 Thin prep Papanicolaou smear with manual screening 18 U/L 15-37 [facility] Thin prep Papanicolaou smear with manual screening 4 5-15 [facility] Whole blood hemoglobin A1c/t otal hemoglobin ratio (mass fraction)Ordered By: Dr. Swift on 09-16-2022 HbA1c (Bld) [Mass fraction] 7.4 % 3.8-5.6 [facility] Comment on above: Normal < 5.7 % Predi abetic 5.7 - 6.4 % Diabetic >or= 6.5 % Please note range changes. Basophil percentageOrdered B y: Dr. Arizmendi on 08-10-2022 Chloride [Moles/Vol] 109 mmol/L 98-107 [facility] Cholesterol [Mass/Vol] 161 mg/dL <200 [facility] Comment on above: <200 mg/dL Desirable 200-240 mg/dL Borderline >240 mg/dL High Risk Glucose [Mass/Vol] 144 mg/dL 74-106 [facility] Comment on above: Fasting Glucose resu lt greater than or equal to 126 mg/dL suggests DIABETES MELLITUS per A.D.A. criteria. Potassium [Moles/Vol] 4.4 mmol/L 3.5-5.1 [facility] Sodium [Moles/Vol] 140 mmol/L 136-145 [facility] Triglyceride [Mass/Vol] 127 mg/dL <199 [facility] Comment on above: The drugs N-Acetylcy steine and Metamizole may falsely depress this assay.Serum Triglycerides Reference Interval Normal <150 mg/dL Borderline high 150 - 199 mg/dL High 200 - 499 mg/dL Very High > or = 500 mg/dL Laboratory - Chemistry and C hemistry - challengeOrdered By: Dr. Arizmendi on 08-10-2022 CO2 [Moles/Vol] 26.0 mmol/L 21.0-32.0 [facility] Free T4 [Mass/Vol] 1.21 ng/dL 0.76-1.46 [facility] Urea nitrogen/Creatinine [Mass ratio] 32.9 mg/mg 10-20 [facility] No Panel InformationOrdered By: Dr. Arizmendi on 08-10-2022 Estimated GFR (MDRD) Amer 122 mL/min >60 [facility] Comment on above: GFR Calc Estimated GFR (MDRD) Non-Af Amer 101 mL/min >60 [facility] Comment on above: Non- GFR Calc Free Triiodothyronine (T3) pg/dL 2.2 pg/mL 2.18-3.98 [facility] Thyroid Stimulating Hormone (TSH) 1.84 uIU/mL 0.358-3.74 [facility] Serum or plasma calcium jasiel urement (mass/volume)Ordered By: Dr. Arizmendi on 08-10-2022 Calcium [Mass/Vol] 9.1 mg/dL 8.5-10.1 [facility] Serum or plasma cholesterol in HDL measurement (mass/volume)Ordered By: Dr. Arizmendi on 08-10-2022 Cholesterol in HDL [Mass/Vol] 57 mg/dL >40 [facility] Comment on above: The drugs N-Acetylcy steine and Metamizole may falsely depress this assay. Reference Range HDL <40 mg/dL Low HDL Cholesterol HDL >or= 60 mg/dL High HDL Cholesterol Serum or plasma cholesterol in VLDL measurement (mass/volume)Ordered By: Dr. Arizmendi on 08-10-2022 Cholesterol in VLDL [Mass/Vol] 25 mg/dL 5-40 [facility] Serum or plasma creatinine m easurement (mass/volume)Ordered By: Dr. Arizmendi on 08-10-2022 Creatinine [Mass/Vol] 0.64 mg/dL 0.55-1.02 [facility] Comment on above: The validity of the calculated GFR & GFRAA in patients over 70 years has not been determined. Clinical correlation is essential. Serum or plasma low density lipoprotein (LDL) cholesterol measurement (mass/volume)Ordered By: Dr. Arizmendi on 08-10-2022 Cholesterol in LDL [Mass/Vol] 79 mg/dL 0-130 [facility] Serum or plasma urea nitroge n measurement (mass/volume)Ordered By: Dr. Arizmendi on 08-10-2022 Urea nitrogen [Mass/Vol] 21 mg/dL 7-18 [facility] Thin prep Papanicolaou smear with manual screeningOrdered By: Dr. Arizmendi on 08-10-2022 Thin prep Papanicolaou smear with manual screening 5 5-15 [facility] Absolute lymphocyte countOrd ered By: Dr. Ramos on 08-03-2022 Lymphocytes Auto (Unsp spec) [#/Vol] 1.48 10*3/uL 0.83-4.51 [facility] Basophil percentageOrdered B y: Dr. Ramos on 08-03-2022 Basophils/100 WBC (Bld) 0.8 % 0-1 [facility] Bilirubin [Mass/Vol] 0.30 mg/dL 0.20-1.00 [facility] Comment on above: For patients on eltr ombopag therapy, use of Dim[facility] [place] [facility] TBIL is not recommended. Chloride [Moles/Vol] 105 mmol/L 98-107 [facility] Eosinophils/100 WBC (Bld) 0.8 % 0-5 [facility] Glucose [Mass/Vol] 142 mg/dL 74-106 [facility] Comment on above: Fasting Glucose resu lt greater than or equal to 126 mg/dL suggests DIABETES MELLITUS per A.D.A. criteria. Neutrophils (Bld) [#/Vol] 5.2 10*3/uL 2.0-7.7 [facility] Neutrophils/100 WBC (Bld) 71.5 % 47-70 [facility] Potassium [Moles/Vol] 4.5 mmol/L 3.5-5.1 [facility] Protein [Mass/Vol] 7.9 g/dL 6.4-8.2 [facility] Sodium [Moles/Vol] 138 mmol/L 136-145 [facility] WBC (Bld) [#/Vol] 7.3 10*3/uL 4.4-11.0 [facility] Blood erythrocytes count (nu mber/volume)Ordered By: Dr. Ramos on 08-03-2022 RBC (Bld) [#/Vol] 4.76 10*6/uL 4.2-5.4 [facility] Blood hemoglobin measurement (mass/volume)Ordered By: Dr. Ramos on 08-03-2022 Hemoglobin (Bld) [Mass/Vol] 14.0 g/dL 12.0-15.0 [facility] Blood lymphocytes/100 leukoc ytesOrdered By: Dr. Ramos on 08-03-2022 Lymphocytes/100 WBC (Bld) 20.3 % 19-41 [facility] Blood monocytes/100 leukocyt esOrdered By: Dr. Ramos on 08-03-2022 Monocytes/100 WBC (Bld) 6.5 % 0-10 [facility] Blood platelet mean volumeOr dered By: Dr. Raoms on 08-03-2022 Platelet mean volume (Bld) [Entitic vol] 10.5 fL 6.2-12.0 [facility] Determination of erythrocyte mean corpuscular volume (MCV)Ordered By: Dr. Ramos on 08-03-2022 MCV (RBC) [Entitic vol] 90.5 fL 81-99 [facility] Hematocrit Auto (Bld) [Volum e fraction]Ordered By: Dr. Ramos on 08-03-2022 Hematocrit (Bld) [Volume fraction] 43.1 % 37-47 [facility] Laboratory - Chemistry and C hemistry - challengeOrdered By: Dr. Ramos on 08-03-2022 ALP [Catalytic activity/Vol] 95 U/L 45-117 [facility] ALT [Catalytic activity/Vol] 15 U/L 13-56 [facility] CO2 [Moles/Vol] 27.0 mmol/L 21.0-32.0 [facility] Globulin (S) [Mass/Vol] 4.5 g/dL 2.2-4.2 [facility] Urea nitrogen/Creatinine [Mass ratio] 31.5 mg/mg 10-20 [facility] Laboratory - Hematology and Cell countsOrdered By: Dr. Ramos on 08-03-2022 Erythrocyte distribution width (RBC) [Entitic vol] 46.4 fL 35.1-43.9 [facility] Erythrocyte distribution width (RBC) [Ratio] 13.9 % 11.6-14.6 [facility] Immature granulocytes/100 WBC (Bld) 0.100 % 0.0-0.9 [facility] Comment on above: IG% - Immature Granu locytes (promyelocytes, myelocytes and metamyelocytes) > 1% indicates that a LEFT SHIFT is Present. MCH (RBC) [Entitic mass] 29.4 pg 27.0-32.0 [facility] Nucleated RBC/100 [facility] (Bld) [[facility]] 0 [facility] [Mass/Vol]Or dered By: Dr. Ramos on 08-03-2022 MCHC (RBC) [Mass/Vol] 32.5 g/dL 32-36 [facility] No Panel InformationOrdered By: Dr. Ramos on 08-03-2022 Estimated GFR (MDRD) Amer 91 mL/min >60 [facility] Comment on above: GFR Calc Estimated GFR (MDRD) Non-Af Amer 75 mL/min >60 [facility] Comment on above: Non- GFR Calc Platelets bldOrdered By: Dr. Ramos on 08-03-2022 Platelets (Bld) [#/Vol] 219 10*3/uL 150-450 [facility] Serum or plasma albumin jasiel urement (mass/volume)Ordered By: Dr. Ramos on 08-03-2022 Albumin [Mass/Vol] 3.4 g/dL 3.2-5.0 [facility] Serum or plasma albumin/glob ulin mass ratioOrdered By: Dr. Ramos on 08-03-2022 Albumin/Globulin [Mass ratio] 0.8 {ratio} 0.9-2.4 [facility] Serum or plasma calcium jasiel urement (mass/volume)Ordered By: Dr. Ramos on 08-03-2022 Calcium [Mass/Vol] 9.9 mg/dL 8.5-10.1 [facility] Serum or plasma creatinine m easurement (mass/volume)Ordered By: Dr. Ramos on 08-03-2022 Creatinine [Mass/Vol] 0.82 mg/dL 0.55-1.02 [facility] Comment on above: The validity of the calculated GFR & GFRAA in patients over 70 years has not been determined. Clinical correlation is essential. Serum or plasma urea nitroge n measurement (mass/volume)Ordered By: Dr. Ramos on 08-03-2022 Urea nitrogen [Mass/Vol] 26 mg/dL 7-18 [facility] Thin prep Papanicolaou smear with manual screeningOrdered By: Dr. Ramos on 08-03-2022 Thin prep Papanicolaou smear with manual screening 11 U/L 15-37 [facility] Thin prep Papanicolaou smear with manual screening 6 5-15 [facility] Basophil percentageOrdered B y: Dr. Olsen on 06-17-2022 Bilirubin [Mass/Vol] 0.30 mg/dL 0.20-1.00 [facility] Comment on above: For patients on eltr ombopag therapy, use of [employer] TBIL is not recommended. Cholesterol [Mass/Vol] 158 mg/dL <200 [facility] Comment on above: <200 mg/dL Desirable 200-240 mg/dL Borderline >240 mg/dL High Risk Protein [Mass/Vol] 7.8 g/dL 6.4-8.2 [facility] Triglyceride [Mass/Vol] 270 mg/dL <199 [facility] Comment on above: The drugs N-Acetylcy steine and Metamizole may falsely depress this assay.Serum Triglycerides Reference Interval Normal <150 mg/dL Borderline high 150 - 199 mg/dL High 200 - 499 mg/dL Very High > or = 500 mg/dL Direct bilirubinOrdered By: Dr. Olsen on 06-17-2022 Bilirubin.direct [Mass/Vol] 0.10 mg/dL 0.00-0.30 [facility] Laboratory - Chemistry and C hemistry - challengeOrdered By: Dr. Olsen on 06-17-2022 ALP [Catalytic activity/Vol] 97 U/L 45-117 [facility] ALT [Catalytic activity/Vol] 17 U/L 13-56 [facility] Globulin (S) [Mass/Vol] 4.5 g/dL 2.2-4.2 [facility] No Panel InformationOrdered By: Dr. Jefferson on 06-17-2022 Thyroid Stimulating Hormone (TSH) 5.80 uIU/mL 0.358-3.74 [facility] Serum or plasma albumin jasiel urement (mass/volume)Ordered By: Dr. Olsen on 06-17-2022 Albumin [Mass/Vol] 3.3 g/dL 3.2-5.0 [facility] Serum or plasma cholesterol in HDL measurement (mass/volume)Ordered By: Dr. Olsen on 06-17-2022 Cholesterol in HDL [Mass/Vol] 53 mg/dL >40 [facility] Comment on above: The drugs N-Acetylcy steine and Metamizole may falsely depress this assay. Reference Range HDL <40 mg/dL Low HDL Cholesterol HDL >or= 60 mg/dL High HDL Cholesterol Serum or plasma cholesterol in VLDL measurement (mass/volume)Ordered By: Dr. Olsen on 06-17-2022 Cholesterol in VLDL [Mass/Vol] 54 mg/dL 5-40 [facility] Serum or plasma low density lipoprotein (LDL) cholesterol measurement (mass/volume)Ordered By: Dr. Olsen on 06-17-2022 Cholesterol in LDL [Mass/Vol] 51 mg/dL 0-130 [facility] Thin prep Papanicolaou smear with manual screeningOrdered By: Dr. Olsen on 06-17-2022 Thin prep Papanicolaou smear with manual screening 11 U/L 15-37 [facility] Absolute lymphocyte countOrd ered By: Dr. Ramos on 05-11-2022 Lymphocytes Auto (Unsp spec) [#/Vol] 2.04 10*3/uL 0.83-4.51 [facility] Basophil percentageOrdered B y: Dr. Ramos on 05-11-2022 Basophils/100 WBC (Bld) 0.9 % 0-1 [facility] Bilirubin [Mass/Vol] 0.30 mg/dL 0.20-1.00 [facility] Comment on above: For patients on eltr ombopag therapy, use of [employer] [facility] TBIL is not recommended. Chloride [Moles/Vol] 107 mmol/L 98-107 [facility] Eosinophils/100 WBC (Bld) 5.0 % 0-5 [facility] Glucose [Mass/Vol] 133 mg/dL 74-106 [facility] Comment on above: Fasting Glucose resu lt greater than or equal to 126 mg/dL suggests DIABETES MELLITUS per A.D.A. criteria. Neutrophils (Bld) [#/Vol] 3.8 10*3/uL 2.0-7.7 [facility] Neutrophils/100 WBC (Bld) 56.2 % 47-70 [facility] Potassium [Moles/Vol] 3.6 mmol/L 3.5-5.1 [facility] Protein [Mass/Vol] 7.4 g/dL 6.4-8.2 [facility] Sodium [Moles/Vol] 139 mmol/L 136-145 [facility] WBC (Bld) [#/Vol] 6.8 10*3/uL 4.4-11.0 [facility] Blood erythrocytes count (nu mber/volume)Ordered By: Dr. Ramos on 05-11-2022 RBC (Bld) [#/Vol] 4.58 10*6/uL 4.2-5.4 [facility] Blood hemoglobin measurement (mass/volume)Ordered By: Dr. Ramos on 05-11-2022 Hemoglobin (Bld) [Mass/Vol] 13.5 g/dL 12.0-15.0 [facility] Blood lymphocytes/100 leukoc ytesOrdered By: Dr. Ramos on 05-11-2022 Lymphocytes/100 WBC (Bld) 30.0 % 19-41 [facility] Blood monocytes/100 leukocyt esOrdered By: Dr. Ramos on 05-11-2022 Monocytes/100 WBC (Bld) 7.6 % 0-10 [facility] Blood platelet mean volumeOr dered By: Dr. Ramos on 05-11-2022 Platelet mean volume (Bld) [Entitic vol] 10.4 fL 6.2-12.0 [facility] Determination of erythrocyte mean corpuscular volume (MCV)Ordered By: Dr. Ramos on 05-11-2022 MCV (RBC) [Entitic vol] 92.6 fL 81-99 [facility] Hematocrit Auto (Bld) [Volum e fraction]Ordered By: Dr. Ramos on 05-11-2022 Hematocrit (Bld) [Volume fraction] 42.4 % 37-47 [facility] Laboratory - Chemistry and C hemistry - challengeOrdered By: Dr. Ramos on 05-11-2022 ALP [Catalytic activity/Vol] 90 U/L 45-117 [facility] ALT [Catalytic activity/Vol] 15 U/L 13-56 [facility] CO2 [Moles/Vol] 26.0 mmol/L 21.0-32.0 [facility] Globulin (S) [Mass/Vol] 4.1 g/dL 2.2-4.2 [facility] Urea nitrogen/Creatinine [Mass ratio] 29.1 mg/mg 10-20 [facility] Laboratory - Hematology and Cell countsOrdered By: Dr. Ramos on 05-11-2022 Erythrocyte distribution width (RBC) [Entitic vol] 48.6 fL 35.1-43.9 [facility] [facility] Erythrocyte distribution width (RBC) [Ratio] 14.2 % 11.6-14.6 [facility] Immature granulocytes/100 WBC (Bld) 0.300 % 0.0-0.9 [facility] Comment on above: IG% - Immature Granu locytes (promyelocytes, myelocytes and metamyelocytes) > 1% indicates that a LEFT SHIFT is Present. MCH (RBC) [Entitic mass] 29.5 pg 27.0-32.0 [facility] Nucleated RBC/100 WBC (Bld) [Ratio] 0 % 0-5 [facility] MCHC Auto (RBC) [Mass/Vol]Or dered By: Dr. Ramos on 05-11-2022 MCHC (RBC) [Mass/Vol] 31.8 g/dL 32-36 [facility] No Panel InformationOrdered By: Dr. Ramos on 05-11-2022 Estimated GFR (MDRD) Amer 120 mL/min >60 [facility] Comment on above: GFR Calc Estimated GFR (MDRD) Non-Af Amer 99 mL/min >60 [facility] Comment on above: Non- GFR Calc Platelets bldOrdered By: Dr. Ramos on 05-11-2022 Platelets (Bld) [#/Vol] 215 10*3/uL 150-450 [facility] Serum or plasma albumin jasiel urement (mass/volume)Ordered By: Dr. Ramos on 05-11-2022 Albumin [Mass/Vol] 3.3 g/dL 3.2-5.0 [facility] Serum or plasma albumin/glob ulin mass ratioOrdered By: Dr. Ramos on 05-11-2022 Albumin/Globulin [Mass ratio] 0.8 {ratio} 0.9-2.4 [facility] Serum or plasma calcium jasiel urement (mass/volume)Ordered By: Dr. Ramos on 05-11-2022 Calcium [Mass/Vol] 9.1 mg/dL 8.5-10.1 [facility] Serum or plasma creatinine m easurement (mass/volume)Ordered By: Dr. Ramos on 05-11-2022 Creatinine [Mass/Vol] 0.65 mg/dL 0.55-1.02 [facility] Comment on above: The validity of the calculated GFR & GFRAA in patients over 70 years has not been determined. Clinical correlation is essential. Serum or plasma urea nitroge n measurement (mass/volume)Ordered By: Dr. Ramos on 05-11-2022 Urea nitrogen [Mass/Vol] 19 mg/dL 7-18 [facility] Thin prep Papanicolaou smear with manual screeningOrdered By: Dr. Ramos on 05-11-2022 Thin prep Papanicolaou smear with manual screening 13 U/L 15 [facility] Thin prep Papanicolaou smear with manual screening 6 5-15 [facility] Serum or plasma calcium jasiel urement (mass/volume)Ordered By: Roxana Hickey on 04-28-2022 Calcium [Mass/Vol] 9.7 mg/dL 8.5-10.1 [facility] Serum or plasma calcium jasiel urement (mass/volume)on 04-15-2022 Calcium [Mass/Vol] 9.2 mg/dL 8.5-10.1 [facility] Work Phone: Basophil percentageon 2021 Basophil percentage 2.4 mg/dL 2.5-4.9 [facility] Work Phone: Chloride [Moles/Vol] 111 mmol/L 98-107 [facility] Work Phone: Glucose [Mass/Vol] 127 mg/dL 74-106 [facility] Work Phone: Comment on above: Fasting Glucose resu lt greater than or equal to 126 mg/dL suggests DIABETES MELLITUS per A.D.A. criteria. Potassium [Moles/Vol] 4.3 mmol/L 3.5-5.1 [facility] Work Phone: Sodium [Moles/Vol] 141 mmol/L 136-145 [facility] Work Phone: WBC (Bld) [#/Vol] 7.5 10*3/uL 4.4-11.0 [facility] Work Phone: Blood erythrocytes count (nu mber/volume)on 04-11-2022 RBC (Bld) [#/Vol] 4.59 10*6/uL 4.2-5.4 [facility] Work Phone: Blood hemoglobin measurement (mass/volume)on 04-11-2022 Hemoglobin (Bld) [Mass/Vol] 13.5 g/dL 12.0-15.0 [facility] Work Phone: Blood platelet mean volumeon 04-11-2022 Platelet mean volume (Bld) [Entitic vol] 10.0 fL 6.2-12.0 [facility] Work Phone: Determination of erythrocyte mean corpuscular volume (MCV)on 04-11-2022 MCV (RBC) [Entitic vol] 91.7 fL 81-99 [facility] Work Phone: Hematocrit Auto (Bld) [Volum e fraction]on 04-11-2022 Hematocrit (Bld) [Volume fraction] 42.1 % 37-47 [facility] Work Phone: Laboratory - Chemistry and C hemistry - challengeon 04-11-2022 CO2 [Moles/Vol] 27.0 mmol/L 21.0-32.0 [facility] Work Phone: Magnesium [Mass/Vol] 2.2 mg/dL 1.6-2.6 [facility] Work Phone: Urea nitrogen/Creatinine [Mass ratio] 29.2 mg/mg 10- [facility] Work Phone: Laboratory - Hematology and Cell countson 04-11-2022 Erythrocyte distribution width (RBC) [Entitic vol] 47.1 fL 35.1-43.9 [facility] Work Phone: Erythrocyte distribution width (RBC) [Ratio] 14.1 % 11.6-14.6 [facility] Work Phone: MCH (RBC) [Entitic mass] 29.4 pg 27.0-32.0 [facility] Work Phone: MCHC Auto (RBC) [Mass/Vol]on 04-11-2022 MCHC (RBC) [Mass/Vol] 32.1 g/dL 32-36 [facility] Work Phone: No Panel Informationon 04-11 Estimated GFR (MDRD) Amer 120 mL/min >60 [facility] Work Phone: Comment on above: GFR Calc Estimated GFR (MDRD) Non-Af Amer 99 mL/min >60 [facility] Work Phone: Comment on above: Non- GFR Calc Thyroid Stimulating Hormone (TSH) 1.31 uIU/mL 0.358-3.74 [facility] Work Phone: Platelets bldon 04-11-2022 Platelets (Bld) [#/Vol] 206 10*3/uL 150-450 [facility] Work Phone: Serum or plasma calcium jasiel urement (mass/volume)on 04-11-2022 Calcium [Mass/Vol] 9.3 mg/dL 8.5-10.1 [facility] Work Phone: Serum or plasma creatinine m easurement (mass/volume)on 04-11-2022 Creatinine [Mass/Vol] 0.65 mg/dL 0.55-1.02 [facility] Work Phone: Comment on above: The validity of the calculated GFR & GFRAA in patients over 70 years has not been determined. Clinical correlation is essential. Serum or plasma urea nitroge n measurement (mass/volume)on 04-11-2022 Urea nitrogen [Mass/Vol] 19 mg/dL 7-18 [facility] Work Phone: Thin prep Papanicolaou smear with manual screeningon 04-11-2022 Thin prep Papanicolaou smear with manual screening 3 11-09 [facility] Work Phone: Basophil percentageon 2021 Chloride [Moles/Vol] 110 mmol/L 98-107 [facility] Work Phone: Glucose [Mass/Vol] 108 mg/dL 74-106 [facility] Work Phone: Comment on above: Fasting Glucose resu lt from 100 to 125 mg/dL suggests IMPAIRED HOMEOSTASIS per A.D.A. criteria. Potassium [Moles/Vol] 4.1 mmol/L 3.5-5.1 [facility] Work Phone: Sodium [Moles/Vol] 144 mmol/L 136-145 [facility] Work Phone: WBC (Bld) [#/Vol] 6.8 10*3/uL 4.4-11.0 [facility] Work Phone: Blood erythrocytes count (nu mber/volume)on 03-17-2022 RBC (Bld) [#/Vol] 4.81 10*6/uL 4.2-5.4 [facility] Work Phone: Blood hemoglobin measurement (mass/volume)on 03-17-2022 Hemoglobin (Bld) [Mass/Vol] 14.0 g/dL 12.0-15.0 [facility] Work Phone: Blood platelet mean volumeon 03-17-2022 Platelet mean volume (Bld) [Entitic vol] 9.5 fL 6.2-12.0 [facility] Work Phone: Determination of erythrocyte mean corpuscular volume (MCV)on 03-17-2022 MCV (RBC) [Entitic vol] 90.4 fL 81-99 [facility] Work Phone: Hematocrit Auto (Bld) [Volum e fraction]on 03-17-2022 Hematocrit (Bld) [Volume fraction] 43.5 % 37-47 [facility] Work Phone: INR in Blood by Coagulation assayon 03-17-2022 INR Coag (Bld) [Relative time] 1.0 {INR} [facility] Work Phone: Laboratory - Chemistry and C hemistry - challengeon 03-17-2022 CO2 [Moles/Vol] 31.0 mmol/L 21.0-32.0 [facility] Work Phone: Urea nitrogen/Creatinine [Mass ratio] 20.9 mg/mg -20 [facility] Work Phone: Laboratory - Coagulationon 0 03-17-2022 aPTT Coag (Bld) [Time] 25.3 s 24.1-36.2 [facility] Work Phone: PT Coag (PPP) [Time] 12.4 s 11.7-14.9 [facility] Work Phone: Laboratory - Hematology and Cell countson 03-17-2022 Erythrocyte distribution width (RBC) [Entitic vol] 47.3 fL 35.1-43.9 [facility] Work Phone: Erythrocyte distribution width (RBC) [Ratio] 14.2 % 11.6-14.6 [facility] Work Phone: MCH (RBC) [Entitic mass] 29.1 pg 27.0-32.0 [facility] Work Phone: MCHC Auto (RBC) [Mass/Vol]on 03-17-2022 MCHC (RBC) [Mass/Vol] 32.2 g/dL 32-36 [facility] Work Phone: No Panel Informationon 03-17 Estimated Creatinine Clearance Calc 71.04 ml/min [facility] Work Phone: Estimated GFR (MDRD) Amer 126 mL/min >60 [facility] Work Phone: Comment on above: GFR Calc Estimated GFR (MDRD) Non-Af Amer 104 mL/min >60 [facility] Work Phone: Comment on above: Non- GFR Calc Platelets bldon 03-17-2022 Platelets (Bld) [#/Vol] 212 10*3/uL 150-450 [facility] Work Phone: Serum or plasma calcium jasiel urement (mass/volume)on 03-17-2022 Calcium [Mass/Vol] 9.9 mg/dL 8.5-10.1 [facility] Work Phone: Serum or plasma creatinine m easurement (mass/volume)on 03-17-2022 Creatinine [Mass/Vol] 0.62 mg/dL 0.55-1.02 [facility] Work Phone: Comment on above: The validity of the calculated GFR & GFRAA in patients over 70 years has not been determined. Clinical correlation is essential. Serum or plasma urea nitroge n measurement (mass/volume)on 03-17-2022 Urea nitrogen [Mass/Vol] 13 mg/dL 7-18 [facility] Work Phone: Thin prep Papanicolaou smear with manual screeningon 03-17-2022 Thin prep Papanicolaou smear with manual screening 3 5-15 [facility] Work Phone: Absolute lymphocyte counton 02-04-2022 Lymphocytes Auto (Unsp spec) [#/Vol] 1.83 10*3/uL 0.83-4.51 [facility] Work Phone: Basophil percentageon 2021 Basophils/100 WBC (Bld) 0.7 % 0-1 [facility] Work Phone: Bilirubin [Mass/Vol] 0.30 mg/dL 0.20-1.00 [facility] Work Phone: Comment on above: For patients on eltr ombopag therapy, use of [employer] TBIL is not recommended. Chloride [Moles/Vol] 110 mmol/L 98-107 [facility] Work Phone: Eosinophils/100 WBC (Bld) 6.0 % 0-5 [facility] Work Phone: Glucose [Mass/Vol] 121 mg/dL 74-106 [facility] Work Phone: Comment on above: Fasting Glucose resu lt from 100 to 125 mg/dL suggests IMPAIRED HOMEOSTASIS per A.D.A. criteria. Neutrophils (Bld) [#/Vol] 4.3 10*3/uL 2.0-7.7 [facility] Work Phone: Neutrophils/100 WBC (Bld) 58.7 % 47-70 [facility] Work Phone: Potassium [Moles/Vol] 4.1 mmol/L 3.5-5.1 [facility] Work Phone: Protein [Mass/Vol] 7.4 g/dL 6.4-8.2 [facility] Work Phone: Sodium [Moles/Vol] 142 mmol/L 136-145 [facility] Work Phone: WBC (Bld) [#/Vol] 7.3 10*3/uL 4.4-11.0 [facility] Work Phone: Blood erythrocytes count (nu mber/volume)on 02-04-2022 RBC (Bld) [#/Vol] 4.52 10*6/uL 4.2-5.4 [facility] Work Phone: Blood hemoglobin measurement (mass/volume)on 02-04-2022 Hemoglobin (Bld) [Mass/Vol] 13.0 g/dL 12.0-15.0 [facility] Work Phone: Blood lymphocytes/100 leukoc yteson 02-04-2022 Lymphocytes/100 WBC (Bld) 24.9 % 19-41 [facility] Work Phone: [phone] Blood monocytes/100 leukocyt eson 02-04-2022 Monocytes/100 WBC (Bld) 9.3 % 0-10 [facility] Work Phone: Blood platelet mean volumeon 02-04-2022 Platelet mean volume (Bld) [Entitic vol] 10.8 fL 6.2-12.0 [facility] Work Phone: Determination of erythrocyte mean corpuscular volume (MCV)on 02-04-2022 MCV (RBC) [Entitic vol] 91.8 fL 81-99 [facility] Work Phone: Hematocrit Auto (Bld) [Volum e fraction]on 02-04-2022 Hematocrit (Bld) [Volume fraction] 41.5 % 37-47 [facility] Work Phone: Laboratory - Chemistry and C hemistry - challengeon 02-04-2022 ALP [Catalytic activity/Vol] 84 U/L 45-117 [facility] Work Phone: ALT [Catalytic activity/Vol] 13 U/L 13-56 [facility] Work Phone: CO2 [Moles/Vol] 27.0 mmol/L 21.0-32.0 [facility] Work Phone: Globulin (S) [Mass/Vol] 4.2 g/dL 2.2-4.2 [facility] Work Phone: Urea nitrogen/Creatinine [Mass ratio] 35.5 mg/mg 10-20 [facility] Work Phone: Laboratory - Hematology and Cell countson 02-04-2022 Erythrocyte distribution width (RBC) [Entitic vol] 48.0 fL 35.1-43.9 [facility] Work Phone: Erythrocyte distribution width (RBC) [Ratio] 14.2 % 11.6-14.6 [facility] Work Phone: Immature granulocytes/100 WBC (Bld) 0.400 % 0.0-0.9 [facility] Work Phone: Comment on above: IG% - Immature Granu locytes (promyelocytes, myelocytes and metamyelocytes) > 1% indicates that a LEFT SHIFT is Present. MCH (RBC) [Entitic mass] 28.8 pg 27.0-32.0 [facility] Work Phone: Nucleated RBC/100 WBC (Bld) [Ratio] 0 % 0-5 [facility] Work Phone: MCHC Auto (RBC) [Mass/Vol]on 02-04-2022 MCHC (RBC) [Mass/Vol] 31.3 g/dL 32-36 [facility] Work Phone: No Panel Informationon 02-04 Estimated GFR (MDRD) Amer 121 mL/min >60 [facility] Work Phone: Comment on above: GFR Calc Estimated GFR (MDRD) Non-Af Amer 100 mL/min >60 [facility] Work Phone: Comment on above: Non- GFR Calc Platelets bldon 02-04-2022 Platelets (Bld) [#/Vol] 180 10*3/uL 150-450 [facility] Work Phone: Serum or plasma albumin jasiel urement (mass/volume)on 02-04-2022 Albumin [Mass/Vol] 3.2 g/dL 3.2-5.0 [facility] Work Phone: Serum or plasma albumin/glob ulin mass ratioon 02-04-2022 Albumin/Globulin [Mass ratio] 0.8 {ratio} 0.9-2.4 [facility] Work Phone: Serum or plasma calcium jasiel urement (mass/volume)on 02-04-2022 Calcium [Mass/Vol] 9.1 mg/dL 8.5-10.1 [facility] Work Phone: Serum or plasma creatinine m easurement (mass/volume)on 02-04-2022 Creatinine [Mass/Vol] 0.65 mg/dL 0.55-1.02 [facility] Work Phone: Comment on above: The validity of the calculated GFR & GFRAA in patients over 70 years has not been determined. Clinical correlation is essential. Serum or plasma urea nitroge n measurement (mass/volume)on 02-04-2022 Urea nitrogen [Mass/Vol] 23 mg/dL 7-18 [facility] Work Phone: Thin prep Papanicolaou smear with manual screeningon 02-04-2022 Thin prep Papanicolaou smear with manual screening 13 U/L 15-37 [facility] Work Phone: Thin prep Papanicolaou smear with manual screening 5 5-15 [facility] Work Phone: Absolute lymphocyte counton 10-17-2021 Lymphocytes Auto (Unsp spec) [#/Vol] 1.37 10*3/uL 0.83-4.51 [facility] Work Phone: Basophil percentageon 2021 Basophils/100 WBC (Bld) 0.8 % 0-1 [facility] Work Phone: Bilirubin [Mass/Vol] 0.40 mg/dL 0.20-1.00 [facility] Work Phone: [phone] Comment on above: For patients on eltr ombopag therapy, use of [employer] TBIL is not recommended. Chloride [Moles/Vol] 110 mmol/L 98-107 [facility] Work Phone: Eosinophils/100 WBC (Bld) 3.9 % 0-5 [facility] Work Phone: Glucose [Mass/Vol] 119 mg/dL 74-106 [facility] Work Phone: Comment on above: Fasting Glucose resu lt from 100 to 125 mg/dL suggests IMPAIRED HOMEOSTASIS per A.D.A. criteria. Neutrophils (Bld) [#/Vol] 4.5 10*3/uL 2.0-7.7 [facility] Work Phone: Neutrophils/100 WBC (Bld) 67.4 % 47-70 [facility] Work Phone: [phone] Potassium [Moles/Vol] 4.5 mmol/L 3.5-5.1 [facility] Work Phone: Protein [Mass/Vol] 7.9 g/dL 6.4-8.2 [facility] Work Phone: Sodium [Moles/Vol] 138 mmol/L 136-145 [facility] Work Phone: WBC (Bld) [#/Vol] 6.6 10*3/uL 4.4-11.0 [facility] Work Phone: Blood erythrocytes count (nu mber/volume)on 10-17-2021 RBC (Bld) [#/Vol] 5.03 10*6/uL 4.2-5.4 [facility] Work Phone: Blood hemoglobin measurement (mass/volume)on 10-17-2021 Hemoglobin (Bld) [Mass/Vol] 14.6 g/dL 12.0-15.0 [facility] Work Phone: Blood lymphocytes/100 leukoc yteson 10-17-2021 Lymphocytes/100 WBC (Bld) 20.7 % 19-41 [facility] Work Phone: Blood monocytes/100 leukocyt eson 10-17-2021 Monocytes/100 WBC (Bld) 6.9 % 0-10 [facility] Work Phone: Blood platelet mean volumeon 10-17-2021 Platelet mean volume (Bld) [Entitic vol] 10.4 fL 6.2-12.0 [facility] Work Phone: [phone] Determination of erythrocyte mean corpuscular volume (MCV)on 10-17-2021 MCV (RBC) [Entitic vol] 89.3 fL 81-99 [facility] Work Phone: Hematocrit Auto (Bld) [Volum e fraction]on 10-17-2021 Hematocrit (Bld) [Volume fraction] 44.9 % 37-47 [facility] Work Phone: Laboratory - Chemistry and C hemistry - challengeon 10-17-2021 ALP [Catalytic activity/Vol] 87 U/L 45-117 [facility] Work Phone: ALT [Catalytic activity/Vol] 16 U/L 13-56 [facility] Work Phone: CO2 [Moles/Vol] 24.0 mmol/L 21.0-32.0 [facility] Work Phone: Globulin (S) [Mass/Vol] 4.5 g/dL 2.2-4.2 [facility] Work Phone: Urea nitrogen/Creatinine [Mass ratio] 33.9 mg/mg 10-20 [facility] Work Phone: Laboratory - Hematology and Cell countson 10-17-2021 Erythrocyte distribution width (RBC) [Entitic vol] 46.2 fL 35.1-43.9 [facility] Work Phone: Erythrocyte distribution width (RBC) [Ratio] 14.1 % 11.6-14.6 [facility] Work Phone: Immature granulocytes/100 WBC (Bld) 0.300 % 0.0-0.9 [facility] Work Phone: Comment on above: IG% - Immature Granu locytes (promyelocytes, myelocytes and metamyelocytes) > 1% indicates that a LEFT SHIFT is Present. MCH (RBC) [Entitic mass] 29.0 pg 27.0-32.0 [facility] Work Phone: Nucleated RBC/100 WBC (Bld) [Ratio] 0 % 0-5 [facility] Work Phone: MCHC Auto (RBC) [Mass/Vol]on 10-17-2021 MCHC (RBC) [Mass/Vol] 32.5 g/dL 32-36 [facility] Work Phone: No Panel Informationon 10-17 Estimated GFR (MDRD) Amer 121 mL/min >60 [facility] Work Phone: Comment on above: GFR Calc Estimated GFR (MDRD) Non-Af Amer 100 mL/min >60 [facility] Work Phone: Comment on above: Non- GFR Calc Platelets bldon 10-17-2021 Platelets (Bld) [#/Vol] 197 10*3/uL 150-450 [facility] Work Phone: Serum or plasma albumin jasiel urement (mass/volume)on 10-17-2021 Albumin [Mass/Vol] 3.4 g/dL 3.2-5.0 [facility] Work Phone: Serum or plasma albumin/glob ulin mass ratioon 10-17-2021 Albumin/Globulin [Mass ratio] 0.8 {ratio} 0.9-2.4 [facility] Work Phone: Serum or plasma calcium jasiel urement (mass/volume)on 10-17-2021 Calcium [Mass/Vol] 9.3 mg/dL 8.5-10.1 [facility] Work Phone: Serum or plasma creatinine m easurement (mass/volume)on 10-17-2021 Creatinine [Mass/Vol] 0.65 mg/dL 0.55-1.02 [facility] Work Phone: Comment on above: The validity of the calculated GFR & GFRAA in patients over 70 years has not been determined. Clinical correlation is essential. Serum or plasma urea nitroge n measurement (mass/volume)on 10-17-2021 Urea nitrogen [Mass/Vol] 22 mg/dL 7-18 [facility] Work Phone: Thin prep Papanicolaou smear with manual screeningon 10-17-2021 Thin prep Papanicolaou smear with manual screening 14 U/L 15-37 [facility] Work Phone: Thin prep Papanicolaou smear with manual screening 4 5-15 [facility] Work Phone: Absolute lymphocyte counton 08-05-2021 Lymphocytes Auto (Unsp spec) [#/Vol] 1.92 10*3/uL 0.83-4.51 [facility] Work Phone: Basophil percentageon 2021 Basophils/100 WBC (Bld) 1.1 % 0-1 [facility] Work Phone: Bilirubin [Mass/Vol] 0.30 mg/dL 0.20-1.00 [facility] Work Phone: Comment on above: For patients on eltr ombopag therapy, use of [employer] TBIL is not recommended. Chloride [Moles/Vol] 108 mmol/L 98-107 [facility] Work Phone: Eosinophils/100 WBC (Bld) 5.3 % 0-5 [facility] Work Phone: Glucose [Mass/Vol] 103 mg/dL 74-106 [facility] Work Phone: Comment on above: Fasting Glucose resu lt from 100 to 125 mg/dL suggests IMPAIRED HOMEOSTASIS per A.D.A. criteria. Neutrophils (Bld) [#/Vol] 3.7 10*3/uL 2.0-7.7 [facility] Work Phone: Neutrophils/100 WBC (Bld) 56.6 % 47-70 [facility] Work Phone: Potassium [Moles/Vol] 4.3 mmol/L 3.5-5.1 [facility] Work Phone: Protein [Mass/Vol] 7.2 g/dL 6.4-8.2 [facility] Work Phone: [phone] Sodium [Moles/Vol] 141 mmol/L 136-145 [facility] Work Phone: WBC (Bld) [#/Vol] 6.6 10*3/uL 4.4-11.0 [facility] Work Phone: [phone] Blood erythrocytes count (nu mber/volume)on 08-05-2021 RBC (Bld) [#/Vol] 4.76 10*6/uL 4.2-5.4 [facility] Work Phone: Blood hemoglobin measurement (mass/volume)on 08-05-2021 Hemoglobin (Bld) [Mass/Vol] 14.0 g/dL 12.0-15.0 [facility] Work Phone: Blood lymphocytes/100 leukoc yteson 08-05-2021 Lymphocytes/100 WBC (Bld) 29.1 % 19-41 [facility] Work Phone: Blood monocytes/100 leukocyt eson 08-05-2021 Monocytes/100 WBC (Bld) 7.6 % 0-10 [facility] Work Phone: Blood platelet mean volumeon 08-05-2021 Platelet mean volume (Bld) [Entitic vol] 10.0 fL 6.2-12.0 [facility] Work Phone: Determination of erythrocyte mean corpuscular volume (MCV)on 08-05-2021 MCV (RBC) [Entitic vol] 89.9 fL 81-99 [facility] Work Phone: Hematocrit Auto (Bld) [Volum e fraction]on 08-05-2021 Hematocrit (Bld) [Volume fraction] 42.8 % 37-47 [facility] Work Phone: Laboratory - Chemistry and C hemistry - challengeon 08-05-2021 ALP [Catalytic activity/Vol] 92 U/L 45-117 [facility] Work Phone: ALT [Catalytic activity/Vol] 15 U/L 13-56 [facility] Work Phone: CO2 [Moles/Vol] 25.0 mmol/L 21.0-32.0 [facility] Work Phone: Globulin (S) [Mass/Vol] 3.8 g/dL 2.2-4.2 [facility] Work Phone: Urea nitrogen/Creatinine [Mass ratio] 29.7 mg/mg 10-20 [facility] Work Phone: Laboratory - Hematology and Cell countson 08-05-2021 Erythrocyte distribution width (RBC) [Entitic vol] 44.1 fL 35.1-43.9 [facility] Work Phone: Erythrocyte distribution width (RBC) [Ratio] 13.2 % 11.6-14.6 [facility] Work Phone: Immature granulocytes/100 WBC (Bld) 0.300 % 0.0-0.9 [facility] Work Phone: Comment on above: IG% - Immature Granu locytes (promyelocytes, myelocytes and metamyelocytes) > 1% indicates that a LEFT SHIFT is Present. MCH (RBC) [Entitic mass] 29.4 pg 27.0-32.0 [facility] Work Phone: Nucleated RBC/100 WBC (Bld) [Ratio] 0 % 0-5 [facility] Work Phone: MCHC Auto (RBC) [Mass/Vol]on 08-05-2021 MCHC (RBC) [Mass/Vol] 32.7 g/dL 32-36 [facility] Work Phone: No Panel Informationon 08-05 Estimated GFR (MDRD) Amer 109 mL/min >60 [facility] Work Phone: Comment on above: GFR Calc Estimated GFR (MDRD) Non-Af Amer 90 mL/min >60 [facility] Work Phone: Comment on above: Non- GFR Calc Platelets bldon 08-05-2021 Platelets (Bld) [#/Vol] 211 10*3/uL 150-450 [facility] Work Phone: Serum or plasma albumin jasiel urement (mass/volume)on 08-05-2021 Albumin [Mass/Vol] 3.4 g/dL 3.2-5.0 [facility] Work Phone: Serum or plasma albumin/glob ulin mass ratioon 08-05-2021 Albumin/Globulin [Mass ratio] 0.9 {ratio} 0.9-2.4 [facility] Work Phone: Serum or plasma calcium jasiel urement (mass/volume)on 08-05-2021 Calcium [Mass/Vol] 8.9 mg/dL 8.5-10.1 [facility] Work Phone: Serum or plasma creatinine m easurement (mass/volume)on 08-05-2021 Creatinine [Mass/Vol] 0.71 mg/dL 0.55-1.02 [facility] Work Phone: Comment on above: The validity of the calculated GFR & GFRAA in patients over 70 years has not been determined. Clinical correlation is essential. Serum or plasma urea nitroge n measurement (mass/volume)on 08-05-2021 Urea nitrogen [Mass/Vol] 21 mg/dL 7-18 [facility] Work Phone: Thin prep Papanicolaou smear with manual screeningon 08-05-2021 Thin prep Papanicolaou smear with manual screening 11 U/L 15-37 [facility] Work Phone: Thin prep Papanicolaou smear with manual screening 8 5-15 [facility] Work Phone: Culture, urine Bacteria identified Cx Nom (U) Klebsiella pneumoniae sp pneum [facility] Work Phone: Vital Signs Date Time Vital Sign Value Performing Clinician Facility 01-14-2025 10:03-0400 Body height 157.[address] Nehemias Arizmendi MD Work Phone: [facility] 01-14-2025 10:03-0400 Body mass index (BMI) [Ratio] 36.7 kg/m2 Dr. Nehemias Arizmendi MD Work Phone: [facility] 01-14-2025 10:03-0400 Body temperature 98 [degF] Dr. Nehemias Arizmendi MD Work Phone: [facility] 01-14-2025 10:03-0400 Body weight 91.[address] Nehemias Arizmendi MD Work Phone: [facility] 01-14-2025 10:03-0400 Diastolic blood pressure 72 mm[Hg] Dr. Nehemias Arizmendi MD Work Phone: [facility] 01-14-2025 10:03-0400 Heart rate 110 /min Dr. Nehemias Arizmendi MD Work Phone: [facility] 01-14-2025 10:03-0400 Respiratory rate 16 /min Dr. Nehemias Arizmendi MD Work Phone: [facility] 01-14-2025 10:03-0400 SaO2% (BldA) [Mass fraction] 99 % Dr. Nehemias Arizmendi MD Work Phone: [facility] 01-14-2025 10:03-0400 Systolic blood pressure 110 mm[Hg] Dr. Nehemias Arizmendi MD Work Phone: [facility] 10-23-2024 14:35-0400 Body temperature 98 [degF] Dr. Nehemias Arizmendi MD Work Phone: [facility] 10-23-2024 14:35-0400 Diastolic blood pressure 63 mm[Hg] Dr. Nehemias Arizmendi MD Work Phone: 1(265)997-054880 [place] [address] 10-23-2024 14:35-0400 Heart rate 86 /min Dr. Nehemias Arizmendi MD Work Phone: 8(285)476-868180 [place] [address] 10-23-2024 14:35-0400 Inhaled oxygen flow rate 2 L/min Dr. Nehemias Arizmendi MD Work Phone: 6(785)018-941780 [place] [address] 10-23-2024 14:35-0400 Respiratory rate 18 /min Dr. Nehemias Arizmendi MD Work Phone: 9(683)632-834080 [place] [address] 10-23-2024 14:35-0400 SaO2% (BldA) [Mass fraction] 94 % Dr. Nehemias Arizmendi MD Work Phone: 2(710)658-290880 [place] [address] 10-23-2024 14:35-0400 Systolic blood pressure 103 mm[Hg] Dr. Nehemias Arizmendi MD Work Phone: [facility] 10-22-2024 00:55-0400 Inhaled oxygen concentration 40 % Dr. Nehemias Arizmendi MD Work Phone: 6(016)692-357842 [place] [address] 10-18-2024 23:10-0400 Body height 157.[address] Nehemias Arizmendi MD Work Phone: [facility] 10-18-2024 23:10-0400 Body mass index (BMI) [Ratio] 39.6 kg/m2 Dr. Nehemias Arizmendi MD Work Phone: 8(202)784-622342 [place] [address] 10-18-2024 23:10-0400 Body weight 98.[address] Nehemias Arizmendi MD Work Phone: [facility] 10-18-2024 21:14-0400 Heart rate 106 /min Dr. Nehemias Arizmendi MD Work Phone: [facility] 10-18-2024 21:14-0400 Inhaled oxygen flow rate 2 L/min Dr. Nehemias Arizmendi MD Work Phone: [facility] 10-18-2024 21:14-0400 Respiratory rate 21 /min Dr. Nehemias Arizmendi MD Work Phone: [facility] 10-18-2024 21:14-0400 SaO2% (BldA) [Mass fraction] 94 % Dr. Nehemias Arizmendi MD Work Phone: [facility] 10-18-2024 21:11-0400 Body temperature 98.5 [degF] Dr. Nehemias Arizmendi MD Work Phone: [facility] 10-18-2024 20:06-0400 Diastolic blood pressure 66 mm[Hg] Dr. Nehemias Arizmendi MD Work Phone: [facility] 10-18-2024 20:06-0400 Systolic blood pressure 98 mm[Hg] Dr. Nehemias Arizmendi MD Work Phone: [facility] 01-09-2023 13:40-0400 Heart rate 99 /min ARIANA RIVAS MD [address] 01-09-2023 13:35-0400 Heart rate 102 /min ARIANA RIVAS MD [address] 01-09-2023 13:03-0400 Heart rate 88 /min ARIANA RIVAS MD [address] 01-09-2023 13:03-0400 Respiratory rate 20 /min ARIANA RIVAS MD [address] 01-09-2023 13:01-0400 Heart rate 89 /min ARIANA RIVAS MD [facility] 01-09-2023 10:59-0400 Body temperature 98.24 [degF] ARIANA RIVAS MD [facility] 01-09-2023 10:59-0400 Diastolic Blood Pressure Non-Invasive 86 1 ARIANA RIVAS MD [address] [place] [id number] 01-09-2023 10:59-0400 Reason For Taking VItal Signs ARIANA RIVAS MD [address] [place] [id number] 01-09-2023 10:59-0400 Respiratory rate 18 /min ARIANA RIVAS MD [address] [place] [id number] 01-09-2023 10:59-0400 Systolic Blood Pressure Non-Invasive 118 1 ARIANA RIVAS MD [address] [place] [id number] 01-09-2023 07:45-0400 Body temperature 97.88 [degF] ARIANA RIVAS MD [address] [place] [id number] 01-09-2023 07:45-0400 Diastolic Blood Pressure Non-Invasive 62 1 ARIANA RIVAS MD [address] [place] [id number] 01-09-2023 07:45-0400 Systolic Blood Pressure Non-Invasive 115 1 ARIANA RIVAS MD [address] [place] [id number] 01-09-2023 06:12-0400 Heart rate 84 /min ARIANA RIVAS MD [address] [place] [id number] 01-09-2023 06:12-0400 Respiratory rate 20 /min ARIANA RIVAS MD [address] [place] [id number] 01-09-2023 03:15-0400 Blood Pressure Location AIRANA RIVAS MD [address] [place] [id number] 01-09-2023 03:15-0400 Blood Pressure Method ARIANA RIVAS MD [address] [place] [id number] 01-09-2023 03:15-0400 Body temperature 97.88 [degF] ARIANA RIVAS MD [address] [place] [id number] 01-09-2023 03:15-0400 Diastolic Blood Pressure Non-Invasive 71 1 ARIANA RIVAS MD [address] [place] [id number] 01-09-2023 03:15-0400 Mean blood pressure 91 mm[Hg] ARIANA RIVAS MD [address] [place] [id number] 01-09-2023 03:15-0400 Reason For Taking VItal Signs ARIANA RIVAS MD [address] [place] [id number] 01-09-2023 03:15-0400 Systolic Blood Pressure Non-Invasive 137 1 ARIANA RIVAS MD [address] [place] [id number] 01-09-2023 00:19-0400 Blood Pressure Location ARIANA RIVAS MD [address] [place] [id number] 01-09-2023 00:19-0400 Blood Pressure Method ARIANA RIVAS MD [address] [place] [id number] 01-09-2023 00:19-0400 Mean blood pressure 76 mm[Hg] ARIANA RIVAS MD [address] [place] [id number] 01-09-2023 00:19-0400 Reason For Taking VItal Signs ARIANA RIVAS MD [address] [place] [id number] 01-08-2023 19:19-0400 Heart rate 93 /min ARIANA RIVAS MD [address] [place] [id number] 01-08-2023 18:40-0400 Blood Pressure Cuff Size ARIANA RIVAS MD [address] [place] [id number] 01-08-2023 18:40-0400 Blood Pressure Location ARIANA RIVAS MD [address] [place] [id number] 01-08-2023 18:40-0400 Blood Pressure Method ARIANA RIVAS MD [address] [place] [id number] 01-08-2023 14:33-0400 Blood Pressure Cuff Size ARIANA RIVAS MD [address] [place] [id number] 01-08-2023 10:45-0400 Blood Pressure Cuff Size ARIANA RIVAS MD [address] [place] [id number] 01-08-2023 05:02-0400 Mean blood pressure 85 mm[Hg] ARIANA RIVAS MD [address] [place] [id number] 01-06-2023 14:00-0400 Diastolic blood pressure 86 mm[Hg] Dr. Nehemias Arizmendi Work Phone: [facility] 01-06-2023 14:00-0400 Heart rate 100 /min Dr. Nehemias Arizmendi Work Phone: [facility] 01-06-2023 14:00-0400 Respiratory rate 24 /min Dr. Nehemias Arizmendi Work Phone: [facility] 01-06-2023 14:00-0400 SaO2% (BldA) [Mass fraction] 95 % Dr. Nehemias Arizmendi Work Phone: [facility] 01-06-2023 14:00-0400 Systolic blood pressure 139 mm[Hg] Dr. Nehemias Arizmendi Work Phone: [facility] 01-06-2023 06:00-0400 Body height 160 cm ARIANA RIVAS MD [address] 01-06-2023 06:00-0400 Body weight 98.7 kg ARIANA RIVAS MD [address] [place] [id number] 01-06-2023 06:00-0400 Body weight 38.55 kg/m2 ARIANA RIVAS MD [address] [place] [id number] 01-06-2023 00:54-0400 Body temperature 97.8 [degF] Dr. Nehemias Arizmendi Work Phone: [facility] 01-06-2023 00:00-0400 Inhaled oxygen flow rate 4 L/min Dr. Nehemias Arizmendi Work Phone: [facility] 01-05-2023 15:04-0400 Body mass index (BMI) [Ratio] 37.7 kg/m2 Dr. Nehemias Arizmendi Work Phone: [facility] 01-05-2023 15:04-0400 Body weight 96.[address] Nehemias Arizmendi Work Phone: [facility] 01-05-2023 14:49-0400 Body height 160.[address] Nehemias Arizmendi Work Phone: [facility] 01-03-2023 12:38-0400 Body temperature 97.8 [degF] Dr. Nehemias Arizmendi Work Phone: [facility] 01-03-2023 12:38-0400 Diastolic blood pressure 78 mm[Hg] Dr. Nehemias Arizmendi Work Phone: [facility] 01-03-2023 12:38-0400 Heart rate 64 /min Dr. Nehemias Arizmendi Work Phone: [facility] 01-03-2023 12:38-0400 Respiratory rate 14 /min Dr. Nehemias Arizmendi Work Phone: 9([phone] [address] 01-03-2023 12:38-0400 SaO2% (BldA) [Mass fraction] 92 % Dr. Nehemias Arizmendi Work Phone: 4(255)319-061942 [place] [address] 01-03-2023 12:38-0400 Systolic blood pressure 110 mm[Hg] Dr. Nehemias Arizmendi Work Phone: [facility] 01-03-2023 12:23-0400 Inhaled oxygen flow rate 2 L/min Dr. Nehemias Arizmendi Work Phone: [facility] 01-03-2023 11:24-0400 Body height 160.[address] Nehemias Arizmendi Work Phone: 4([phone])200-461163 [address] 01-03-2023 11:24-0400 Body mass index (BMI) [Ratio] 36.8 kg/m2 Dr. Nehemias Arizmendi Work Phone: [facility] 01-03-2023 11:24-0400 Body weight 94.[address] Nehemias Arizmendi Work Phone: [facility] 11-16-2022 14:51-0400 Body mass index (BMI) [Ratio] 36.2 kg/m2 Dr. Nehemias Arizmendi Work Phone: [facility] 11-16-2022 14:51-0400 Body weight 92.[address] Nehemias Arizmendi Work Phone: [facility] 11-16-2022 14:51-0400 Diastolic blood pressure 83 mm[Hg] Dr. Nehemias Arizmendi Work Phone: [facility] 11-16-2022 14:51-0400 Heart rate 89 /min Dr. Nehemias Arizmendi Work Phone: [facility] 11-16-2022 14:51-0400 Respiratory rate 16 /min Dr. Nehemias Arizmendi Work Phone: [facility] 11-16-2022 14:51-0400 Systolic blood pressure 143 mm[Hg] Dr. Nehemias Arizmendi Work Phone: 4(292)006-002963 [address] 09-16-2022 09:53-0400 Body height 160.[address] Nehemias Arizmendi Work Phone: 1(581)147-527042 [place] [address] 09-16-2022 09:53-0400 Body mass index (BMI) [Ratio] 38.5 kg/m2 Dr. Nehemias Arizmendi Work Phone: [facility] 09-16-2022 09:53-0400 Body temperature 98.6 [degF] Dr. Nehemias Arizmendi Work Phone: [facility] 09-16-2022 09:53-0400 Body weight 98.[address] Nehemias Arizmendi Work Phone: [facility] 09-16-2022 09:53-0400 Diastolic blood pressure 76 mm[Hg] Dr. Nehemias Arizmendi Work Phone: [facility] 09-16-2022 09:53-0400 Heart rate 90 /min Dr. Nehemias Arizmendi Work Phone: [facility] 09-16-2022 09:53-0400 Respiratory rate 17 /min Dr. Nehemias Arizmendi Work Phone: [facility] 09-16-2022 09:53-0400 SaO2% (BldA) [Mass fraction] 94 % Dr. Nehemias Arizmendi Work Phone: [facility] 09-16-2022 09:53-0400 Systolic blood pressure 138 mm[Hg] Dr. Nehemias Arizmendi Work Phone: [facility] 05-11-2022 15:04-0500 Body height 160.[address] Nehemias Arizmendi Work Phone: [facility] 05-11-2022 15:04-0500 Body mass index (BMI) [Ratio] 37.2 kg/m2 Dr. Nehemias Arizmendi Work Phone: [facility] 05-11-2022 15:04-0500 Body weight 95.[address] Nehemias Arizmendi Work Phone: [facility] 05-11-2022 15:04-0500 Diastolic blood pressure 82 mm[Hg] Dr. Nehemias Arizmendi Work Phone: [facility] 05-11-2022 15:04-0500 Heart rate 90 /min Dr. Nehemias Arizmendi Work Phone: [facility] 05-11-2022 15:04-0500 Respiratory rate 20 /min Dr. Nehemias Arizmendi Work Phone: [facility] 05-11-2022 15:04-0500 SaO2% (BldA) [Mass fraction] 96 % Dr. Nehemias Arizmendi Work Phone: [facility] 05-11-2022 15:04-0500 Systolic blood pressure 135 mm[Hg] Dr. Nehemias Arizmendi Work Phone: [facility] 04-15-2022 15:20-0400 Body temperature 98.7 [degF] Dr. Nehemias Arizmendi Work Phone: [facility] Work Phone: 04-15-2022 15:20-0400 Diastolic blood pressure 67 mm[Hg] Dr. Nehemias Arizmendi Work Phone: [facility] Work Phone: 04-15-2022 15:20-0400 Heart rate 85 /min Dr. Nehemias Arizmendi Work Phone: [facility] Work Phone: 04-15-2022 15:20-0400 Respiratory rate 16 /min Dr. Nehemias Arizmendi Work Phone: [facility] Work Phone: 04-15-2022 15:20-0400 SaO2% (BldA) [Mass fraction] 93 % Dr. Nehemias Arizmendi Work Phone: [facility] Work Phone: 04-15-2022 15:20-0400 Systolic blood pressure 126 mm[Hg] Dr. Nehemias Arizmendi Work Phone: [facility] Work Phone: 04-15-2022 14:25-0400 Inhaled oxygen flow rate 2 L/min Dr. Nehemias Arizmendi Work Phone: [facility] Work Phone: 04-15-2022 13:33-0400 Body height 160.[address] Nehemias Arizmendi Work Phone: [facility] Work Phone: 04-15-2022 13:33-0400 Body mass index (BMI) [Ratio] 36.1 kg/m2 Dr. Nehemias Arizmendi Work Phone: [facility] Work Phone: 04-15-2022 13:33-0400 Body weight 92.[address] Nehemias Arizmendi Work Phone: [facility] Work Phone: 04-15-2022 06:29-0400 Body height 160.[address] Nehemias Arizmendi Work Phone: [facility] Work Phone: 04-15-2022 06:29-0400 Body mass index (BMI) [Ratio] 36.1 kg/m2 Dr. Nehemias Arizmendi Work Phone: [facility] Work Phone: 04-15-2022 06:29-0400 Body temperature 97.8 [degF] Dr. Nehemias Arizmendi Work Phone: [facility] Work Phone: 04-15-2022 06:29-0400 Body weight 92.[address] Nehemias Arizmendi Work Phone: [facility] Work Phone: 04-15-2022 06:29-0400 Diastolic blood pressure 65 mm[Hg] Dr. Nehemias Arizmendi Work Phone: [facility] Work Phone: 04-15-2022 06:29-0400 Heart rate 78 /min Dr. Nehemias Arizmendi Work Phone: [facility] Work Phone: 04-15-2022 06:29-0400 Respiratory rate 16 /min Dr. Nehemias Arizmendi Work Phone: [facility] Work Phone: 04-15-2022 06:29-0400 SaO2% (BldA) [Mass fraction] 93 % Dr. Nehemias Arizmendi Work Phone: [facility] Work Phone: 04-15-2022 06:29-0400 Systolic blood pressure 104 mm[Hg] Dr. Nehemias Arizmendi Work Phone: [facility] Work Phone: 03-24-2022 07:39-0400 Body height 152.[address] Nehemias Arizmendi Work Phone: [facility] Work Phone: 03-24-2022 07:39-0400 Body weight 90.[address] Nehemias Arizmendi Work Phone: [facility] Work Phone: 02-25-2022 13:35-0400 Diastolic blood pressure 64 mm[Hg] Dr. Nehemias Arizmendi Work Phone: [facility] Work Phone: 02-25-2022 13:35-0400 Heart rate 72 /min Dr. Nehemias Arizmendi Work Phone: [facility] Work Phone: 02-25-2022 13:35-0400 Respiratory rate 14 /min Dr. Nehemias Arizmendi Work Phone: [facility] Work Phone: 02-25-2022 13:35-0400 SaO2% (BldA) [Mass fraction] 97 % Dr. Nehemias Arizmendi Work Phone: [facility] Work Phone: 02-25-2022 13:35-0400 Systolic blood pressure 104 mm[Hg] Dr. Nehemias Arizmendi Work Phone: [facility] Work Phone: 02-25-2022 13:19-0400 Body height 152.[address] Nehemias Arizmendi Work Phone: [facility] Work Phone: 02-25-2022 13:19-0400 Body mass index (BMI) [Ratio] 39 kg/m2 Dr. Nehemias Arizmendi Work Phone: [facility] Work Phone: 02-25-2022 13:19-0400 Body weight 90.[address] Nehemias Arizmendi Work Phone: [facility] Work Phone: 02-12-2022 07:34-0400 Body mass index (BMI) [Ratio] 39 kg/m2 Dr. Nehemias Arizmendi Work Phone: [facility] Work Phone: 02-09-2022 15:09-0400 Body mass index (BMI) [Ratio] 35.4 kg/m2 Dr. Nehemias Arizmendi Work Phone: [facility] Work Phone: 02-09-2022 15:09-0400 Body weight 90.[address] Nehemias Arizmendi Work Phone: [facility] Work Phone: 02-09-2022 15:09-0400 Diastolic blood pressure 74 mm[Hg] Dr. Nehemias Arizmendi Work Phone: [facility] Work Phone: 02-09-2022 15:09-0400 Heart rate 94 /min Dr. Nehemias Arizmendi Work Phone: [facility] Work Phone: 02-09-2022 15:09-0400 Respiratory rate 18 /min Dr. Nehemias Arizmendi Work Phone: [facility] Work Phone: 02-09-2022 15:09-0400 SaO2% (BldA) [Mass fraction] 96 % Dr. Nehemias Arizmendi Work Phone: [facility] Work Phone: 02-09-2022 15:09-0400 Systolic blood pressure 133 mm[Hg] Dr. Nehemias Arizmendi Work Phone: [facility] Work Phone: 02-09-2022 14:02-0400 Body mass index (BMI) [Ratio] 35.5 kg/m2 Dr. Nehemias Arizmendi Work Phone: [facility] Work Phone: 02-09-2022 14:02-0400 Body temperature 97.6 [degF] Dr. Nehemias Arizmendi Work Phone: [facility] Work Phone: 02-09-2022 14:02-0400 Body weight 90.[address] Nehemias Arizmendi Work Phone: [facility] Work Phone: 02-09-2022 14:02-0400 Diastolic blood pressure 78 mm[Hg] Dr. Nehemias Arizmendi Work Phone: [facility] Work Phone: 02-09-2022 14:02-0400 Heart rate 103 /min Dr. Nehemias Arizmendi Work Phone: [facility] Work Phone: 02-09-2022 14:02-0400 Respiratory rate 17 /min Dr. Nehemias Arizmendi Work Phone: [facility] Work Phone: 02-09-2022 14:02-0400 SaO2% (BldA) [Mass fraction] 98 % Dr. Nehemias Arizmendi Work Phone: [facility] Work Phone: 02-09-2022 14:02-0400 Systolic blood pressure 126 mm[Hg] Dr. Nehemias Arizmendi Work Phone: [facility] Work Phone: 01-01-2022 14:29-0400 Body height 160.[address] Nehemias Arizmendi Work Phone: [facility] Work Phone: 01-01-2022 14:29-0400 Body mass index (BMI) [Ratio] 35.5 kg/m2 Dr. Nehemias Arizmendi Work Phone: [facility] Work Phone: 01-01-2022 14:29-0400 Body weight 90.[address] Nehemias Arizmendi Work Phone: [facility] Work Phone: 01-01-2022 14:29-0400 Diastolic blood pressure 76 mm[Hg] Dr. Nehemias Arizmendi Work Phone: [facility] Work Phone: 01-01-2022 14:29-0400 Heart rate 84 /min Dr. Nehemias Arizmendi Work Phone: [facility] Work Phone: 01-01-2022 14:29-0400 Respiratory rate 18 /min Dr. Nehemias Arizmendi Work Phone: [facility] Work Phone: 01-01-2022 14:29-0400 Systolic blood pressure 150 mm[Hg] Dr. Nehemias Arizmendi Work Phone: [facility] Work Phone: Encounters Encounter Date Encounter Type Care Provider Facility Start: 01-14-2025 End: 01-14-[address] Nehemias Arizmendi MD Work Phone: [facility] Start: 01-14-2025 End: 01-14-2025 Patient encounter procedure Yrn Champion [employer] Work Phone: Start: 11-27-2024 End: 11-27-[address] Nehemias Arizmendi MD Work Phone: [facility] Work Phone: Start: 11-27-2024 End: 11-27-[address] Nehemias Arizmendi MD [facility] Work Phone: Start: 11-27-2024 End: 11-27-2024 ambulatory Nehemias Arizmendi Facility:[facility] Start: 11-21-2024 End: 11-21-[address] Nehemias Arizmendi MD Work Phone: [facility] Work Phone: Start: 11-21-2024 End: 11-21-[address] Diana Ramos MD -[facility] Work Phone: Start: 11-21-2024 End: 11-21-2024 ambulatory Diana Ramos Facility:[facility] Start: 10-23-2024 Non-patient / Non-visit Dr. Evans [facility] Work Phone: Start: 10-22-2024 Non-patient / Non-visit Dr. Sy Higgins [facility] Work Phone: Start: 10-21-2024 Non-patient / Non-visit Dr. Daksha [facility] Work Phone: Start: 10-20-2024 Non-patient / Non-visit Dr. Sy Higgins [facility] Work Phone: Start: 10-20-2024 Non-patient / Non-visit Thelma YO [facility] Start: 10-19-2024 Non-patient / Non-visit Thelma YO [facility] Start: 10-19-2024 Non-patient / Non-visit Dr. Sy Higgins DO [facility] In[facility] Work Phone: Start: 10-19-2024 ambulatory Bharathi Rivera ty:[facility] Start: 10-19-2024 Non-patient / Non-visit Dr. Dre fajardo MD -[facility] Start: 10-18-2024 ambulatory Leobardo johana Fac ility:[facility] Start: 10-18-2024 End: 10-23-2024 Evaluation and management of inpatient Dr. Bharathi Robles DO -[facility] Work Phone: Start: 08-22-2024 End: 08-22-[address] Nehemias Arizmendi MD Work Phone: [facility] Work Phone: Start: 08-22-2024 End: 08-22-[address] Diana Ramos MD -Laboratory, [facility] Start: 08-22-2024 End: 08-22-2024 ambulatory [facility] Facility:[facility] Start: 05-29-2024 End: 05-29-[address] Diana Ramos MD -Laboratory, [facility] Start: 05-29-2024 End: 05-29-2024 ambulatory Diana Ramos Facility:[facility] Start: 03-16-2024 ambulatory Teo Coto Facility :[facility] Start: 03-10-2024 End: 03-10-2024 ambulatory [facility] Facility:[facility] Start: 01-31-2024 ambulatory Leobardo Soto Fac ility:[facility] Start: 01-28-2024 ambulatory Leobardo Soto Fac ility:[facility] Start: 01-28-2024 End: 01-31-2024 Evaluation and management of inpatient Leobardo Soto Facility:[facility] Start: 12-16-2023 End: 12-16-2023 ambulatory [facility] Facility:[facility] Start: 09-23-2023 End: 09-23-2023 ambulatory [facility] Work Phone: Start: 09-23-2023 End: 09-23-2023 Patient encounter procedure [facility] Start: 08-03-2023 End: 08-03-2023 Patient encounter procedure PHY WO ID REFERRING [facility] Start: 06-30-2023 End: 06-30-2023 ambulatory [facility] Work Phone: Start: 06-30-2023 End: 06-30-2023 Patient encounter procedure [facility] Start: 05-17-2023 End: 05-17-2023 ambulatory [facility] Work Phone: Start: 05-17-2023 End: 05-17-2023 Patient encounter procedure [facility] Work Phone: Start: 03-30-2023 End: 03-30-2023 Patient encounter procedure [facility] Start: 01-11-2023 End: 01-11-[address] Nehemias Arizmendi Work Phone: [facility] Work Phone: Start: 01-11-2023 End: 01-11-[address] Nehemias Arizmendi Work Phone: [facility] Work Phone: Start: 01-06-2023 End: 01-09-2023 Evaluation and management of inpatient ARIANA RIVAS MD Facility:A Start: 01-06-2023 End: 01-09-2023 Evaluation and management of inpatient ARIANA RIVAS MD [facility] Start: 01-05-2023 End: 01-06-2023 Emergency department patient visit Dr. Nehemias Arizmendi [facility] Work Phone: Start: 01-03-2023 End: 01-03-2023 Emergency department patient visit Dr. Nehemias Arizmendi Work Phone[facility] Work Phone: Start: 01-01-2023 End: 01-01-[address] Nehemias Arizmendi Work Phone: [facility] Start: 11-16-2022 End: 11-16-[address] Nehemias Arizmendi Work Phone: [facility] Work Phone: Start: 10-27-2022 End: 10-27-[address] Nehemias Arizmendi Work Phone: [facility] Work Phone: Start: 10-27-2022 End: 10-27-[address] Nehemias Arizmendi Work Phone: [facility] Start: 09-16-2022 End: 09-16-[address] Nehemias Arizmendi Work Phone: [facility] Work Phone: Start: 09-16-2022 End: 09-16-[address] Nehemias Arizmendi Work Phone: [facility] Start: 09-16-2022 End: 09-16-[address] Nehemias Arizmendi Work Phone: [facility] Start: 08-10-2022 End: 08-10-[address] Nehemias Arizmendi Work Phone: [facility] Work Phone: Start: 08-10-2022 End: 08-10-[address] Nehemias Arizmendi Work Phone: [facility] Start: 08-03-2022 End: 08-03-[address] Nehemias Arizmendi Work Phone: [facility] Start: 06-17-2022 End: 06-17-[address] Nehemias Arizmendi Work Phone: [facility] Work Phone: Start: 06-17-2022 End: 06-17-[address] Nehemias Arizmendi [facility] Start: 05-11-2022 End: 05-11-[address] Nehemias Arizmendi Work Phone: [facility] Work Phone: Start: 05-11-2022 End: 05-11-[address] Nehemias Arizmendi Work Phone: [facility] Start: 04-28-2022 End: 04-28-[address] Nehemias Arizmendi Work Phone: [facility] Work Phone: Start: 04-28-2022 End: 04-28-[address] Nehemias Arizmendi Work Phone: [facility] Start: 04-15-2022 End: 04-15-2022 Evaluation and management of inpatient Dr. Nehemias Arizmendi Work Phone: [facility]-Medical Surgical 3 Start: 04-15-2022 End: 04-15-[address] Nehemias Arizmendi Work Phone: [facility] Work Phone: Start: 04-15-2022 Non-patient / Non-visit Dr. Sanaz Arizmendi Work Phone: [facility] Start: 04-15-2022 Admission to [facility] Dr[facility] Nehemias Arizmendi Work Phone: [facility] Start: 04-11-2022 End: 04-11-[address] Nehemias Arizmendi Work Phone: [facility] Work Phone: Start: 04-11-2022 End: 04-11-[address] Nehemias Arizmendi Work Phone: [facility]-Laboratory Start: 04-02-2022 End: 04-02-[address] Nehemias Arizmendi Work Phone: [facility] Work Phone: Start: 04-02-2022 End: 04-02-[address] Nehemias Arizmendi Work Phone: [facility]-Laboratory, Specimen Start: 03-30-[address] Nehemias flaherty Work Phone: [facility]-Cardiovascula r Services Start: 03-27-2022 End: 03-27-[address] Nehemias Arizmendi Work Phone: [facility] Start: 03-24-2022 End: 03-24-2022 Admission to same day surgery center Dr. Nehemias Arizmendi Work Phone: [facility]-Insulation Worker Interior Surface/Special Procedures Start: 03-24-2022 End: 03-24-[address] Nehemias Arizmendi Work Phone: [facility] Work Phone: Start: 03-17-2022 End: 03-17-[address] Nehemias Arizmendi Work Phone: [facility] Start: 03-12-2022 End: 03-12-[address] Nehemias Arizmendi Work Phone: [facility] Work Phone: Start: 03-12-2022 End: 03-12-[address] Nehemias Arizmendi Work Phone: [facility] Start: 02-25-2022 Non-patient / Non-visit Dr. Sanaz Arizmendi Work Phone: [facility] Start: 02-25-2022 End: 02-25-[address] Nehemias Arizmendi Work Phone: [facility] Work Phone: Start: 02-25-2022 End: 02-25-[address] Nehemias Arizmendi Work Phone: [facility] Start: 02-12-2022 End: 02-12-[address] Nehemias Arizmendi Work Phone: [facility] Start: 02-11-2022 Non-patient / Non-visit Dr. Sanaz Arizmendi Work Phone: [facility] Start: 02-09-2022 End: 02-09-[address] Nehemias Arizmendi Work Phone: [facility] Start: 02-09-2022 End: 02-09-[address] Nehemias Arizmendi Work Phone: [facility] Start: 02-06-2022 Non-patient / Non-visit Dr. Sanaz Arizmendi Work Phone: [facility] Start: 02-06-2022 Non-patient / Non-visit Dr. Sanaz Arizmendi Work Phone: [facility] Start: 02-06-2022 End: 02-06-[address] Nehemias Arizmendi Work Phone: [facility]-Cardiovascula r Services Start: 02-04-2022 End: 02-04-[address] Nehemias Arizmendi Work Phone: [facility] Work Phone: Start: 02-04-2022 End: 02-04-[address] Nehemias Arizmendi Work Phone: [facility] Start: 01-23-2022 End: 01-23-[address] Nehemias Arizmendi Work Phone: [facility] Start: 01-16-2022 End: 01-16-[address] Nehemias Arizmendi Work Phone: [facility]-Pulmonary Services/Neurology Start: 01-01-2022 End: 01-01-[address] Nehemias Arizmendi Work Phone: [facility] Start: 12-16-2021 Non-patient / Non-visit Dr. Sanaz Arizmendi Work Phone: [facility] Start: 10-17-2021 End: 10-17-[address] Nehemias Arizmendi Work Phone: [facility] Start: 10-03-2021 Non-patient / Non-visit Dr. Sanaz Arizmendi Work Phone: [facility] Start: 10-03-2021 End: 10-03-[address] Nehemias Arizmendi Work Phone: [facility]-Cardiovascula r Services Start: 08-05-2021 End: 08-05-[address] Nehemias Arizmendi Work Phone: [facility] Start: 06-13-[address] Nehemias Arizmendi Work Phone: [facility] Procedures Date Procedure Procedure Detail Performing Clinician Start: [...] or Pulmonary Embolism (PE)CRITICAL VALUE CALLED TO [id number] [facility] Alexey Saenz.RESULTS READ BACK BY SAME. Start: [...] Start: 01-14-2025 Evaluation of diagnostic study results [facility] Start: 10-23-2024 Patient discharge [facility] Start: 10-21-2024 Continuous pulse oximetry [facility] Start: 10-21-2024 Dual pressure spontaneous ventilation support [facility] Start: 10-21-2024 Physiotherapy of chest [facility] Start: 10-20-2024 [facility] Start: 10-20-2024 Inhalation therapy procedure [facility] Start: 10-19-2024 End: 10-19-2024 [facility] Start: 10-19-2024 Care regimes management [facility] Start: 10-19-2024 Notification of physician [facility] Start: 10-19-2024 Referral to vascular surgeon [facility] Start: 10-19-2024 Gas panel - Arterial blood [facility] Start: 10-19-2024 Oxygen therapy [facility] Start: 10-19-2024 Assessment of risk of venous thromboembolism [facility] Start: 10-19-2024 Insertion of catheter into peripheral vein [facility] Start: 10-19-2024 End: 10-19-2024 Measuring intake and output [facility] Start: 10-19-2024 Providing care according to standard [facility] Start: 10-19-2024 [facility] Start: 10-19-2024 End: 10-19-2024 Following clinical pathway protocol [facility] Start: 10-18-2024 Admission procedure [facility] Start: 10-18-2024 Hospital admission, emergency, from emergency room, medical nature [facility] Start: 10-18-2024 [facility] Start: 01-05-2023 [facility] Start: 04-15-2022 Patient discharge [facility] Work Phone: Start: 04-15-2022 Anes esoph thyrd larynx trach & lymph neck 1yr ANESTH NECK ORGAN 1YR/> [facility] Work Phone: Start: 04-15-2022 Thyroidectomy total/complete REMOVAL OF THYROID [facility] Work Phone: Start: 04-15-2022 Application of intermittent pneumatic compression device [facility] Work Phone: Start: 04-15-2022 Following clinical pathway protocol [facility] Work Phone: Start: 04-15-2022 Ambulation without limitation [facility] Work Phone: Start: 04-15-2022 Catheterization of vein [facility] Work Phone: Start: 04-15-2022 Incentive spirometry [facility] Work Phone: Start: 04-15-2022 Measuring intake and output [facility] Work Phone: Start: 04-15-2022 Provision of activity privileges [facility] Work Phone: Start: 04-15-2022 Vital signs measurements [facility] Work Phone: Start: 04-15-2022 [facility] Work Phone: Start: 04-15-2022 Admission procedure [facility] Work Phone: Start: 02-25-2022 Following clinical pathway protocol [facility] Work Phone: CTA Heart and Delacruz ry arteries W contrast IV [facility] Work Phone: Folate [Mass/volume] in Serum or Plasma [facility] [place] and lambda lig ht chains [facility] NM Heart Views W str ess and W radionuclide IV [facility] Work Phone: Patient Education ED Pneumonia (Adult) [facility] Work Phone: Patient referral [facility] Work Phone: Thiamine measurement [facility] Thyroid stimulating hormone measurement [facility] Work Phone: Urinalysis complete panel - Urine [facility] US Heart [facility] Work Phone: Vitamin B12 measurement [facility] Payers Date Payer Category Payer Unknown [id number] [facility] 2023 Self-pay [id number] 2023 Unknown [id number] 2023 Private Health Insurance [id number] 2015 Unknown [id number] 1965 Unknown [id number] [id number] Unknown [id number] Unknown [id number] Unknown COMMERCIAL OTHER [id number] Unknown [id number] 2.16.840.1.044345.3.579.2.462 Unknown [id number] 2.16.840.1.396033.3.579.2.462 Unknown [id number] 2.16.840.1.634511.3.579.2.462 Unknown [id number] 2.16.840.1.157587.3.579.2.462 Unknown [id number] 2.16.840.1.974190.3.579.2.462 Unknown [id number] 2.16.840.1.030853.3.579.2.462 Unknown [id number] 2.16.840.1.344733.3.579.2.462 Unknown [id number] 2.16.840.1.453695.3.579.2.462 Unknown [id number] 2.16.840.1.537805.3.579.2.462 Unknown [id number] 2.16.840.1.085062.3.579.2.462 Unknown [id number] 2.16.840.1.148353.3.579.2.462 Unknown [id number] 2.16.840.1.012704.3.579.2.462 Unknown [id number] 2.16.840.1.713260.3.579.2.462 Unknown [id number] 2.16.840.1.955542.3.579.2.462 Unknown [id number] 2.16.840.1.498019.3.579.2.462 Unknown [id number] 2.16.840.1.586697.3.579.2.462 Unknown [id number] 2.16.840.1.702299.3.579.2.462 Unknown [id number] 2.16.840.1.718712.3.579.2.462 Unknown [id number] 2.16.840.1.270099.3.579.2.462 Unknown [id number] 2.16.840.1.517891.3.579.2.462 Unknown [id number] 2.16.840.1.093603.3.579.2.462 Unknown [id number] 2.16.840.1.555720.3.579.2.462 Unknown [id number] 2.16.840.1.637336.3.579.2.462 Unknown [id number] 2.16.840.1.692966.3.579.2.462 Unknown [id number] 2.16.840.1.604177.3.579.2.462 Unknown [id number] 2.16.840.1.898969.3.579.2.462 Social History Date Type Detail Facility Start: 02-07-2021 End: 01-05-2023 Tobacco smoking status [facility] Unknown if ever smoked [facility] Start: 1965 Sex Assigned At Female [facility] Start: 01-06-2023 Tobacco smoking status Heavy t obacco smoker (finding) [facility] Start: 01-28-2024 End: 10-20-2024 Tobacco smoking status [facility] Smokes tobacco daily (finding) [facility] Start: 09-05-2024 End: 10-19-2024 Sex Female (finding) [facility] Medical Equipment Procedure Code Equipment Code Equipment Original Text Equipment Identifier Dates Thyroidectomy Plant polysaccha ride haemostatic agent, bioabsorbable ()[id number] FDA Start: 04-15-2022 Thyroidectomy Ligation clip, metallic ( )[id number] FDA Start: 04-15-2022 Thyroidectomy Ligation clip, metallic (81 )[id number] FDA Start: 04-15-2022 Goals Date Patient Goal Desired Activity /State Functional Status Date Assessment Result Facility 10-23-2024 Functional status Ambulates;Lars r;Bathroom Privilege [facility] Work Phone: 01-09-2023 Functional Status Room check performed [facility] 01-09-[address] [facility] 01-09-2023 Functional Status Assistive Device None [facility] 01-08-[address] [facility] 01-08-[address] [facility] 01-08-2023 Functional Status Bed Bath Independent, S etup [facility] 01-06-[address] [facility] 01-06-2023 Functional Status Skin moisturiz er, Shampoo cap, CHG bath [facility] 04-15-2022 Functional status Up ad damien [facility] Work Phone: Mental Status Date Assessment Result Facility 10-23-2024 Cognitive function Voice/Name [facility] Work Phone: 10-18-2024 Cognitive function Level Of Cons ciousness Awake;Alert;Appropriate;Follow s Commands [facility] Work Phone: 01-09-2023 Mental Status Orientation Oriented x 4 [facility] 01-09-[address] [facility] 01-09-[address] [facility] 01-08-2023 Mental Status Orientation Asse ssment Oriented x 4 [facility] 01-08-[address] [facility] 01-07-[address] [facility] 01-03-2023 Cognitive function Voice/Name [facility] Work Phone: 04-15-2022 Cognitive function Level Of Cons ciousness Awake;Alert;Appropriate [facility] Work Phone: 04-15-2022 Cognitive function Voice/Name [facility] Work Phone: 04-15-2022 Cognitive function Voice/Name [facility] Work Phone: 02-25-2022 Cognitive function Voice/Name [facility] Work Phone: Clinical Notes 01-06-2023 to 10-23-2024 Note Date & Type Note Facility 10-23-2024 Note [facility] 10-19-2024 Evaluation note Diagnosis Onset Date Resolution Acute respiratory insufficiency acute October 18, 2024 11:07pm DVT (deep venous thrombosis) acute October 18, 2024 11:07pm Pulmonary embolism acute October 18, 2024 11:07pm Morbid obesity with BMI of 40.0-44.9, adult inactive October 18, 2024 11:07pm [facility] Work Phone: 1(313) 338-100504-24-2025 Evaluation note* Diagnosis Onset Date Resolution Status Admit Date Acute respiratory insufficiency acut e October 18, 2024 11:07pm DVT (deep venous thrombosis) acute October 18, 2024 11:07pm Pulmonary embolism acute October 18, 2024 11:07pm Morbid obesity with BMI of 40.0-44.9, adult inactive October 18 11:07pm Tachycardia acute January 14 9:45am UTI (urinary tract infection) acute January 14, 2025 9:45am [facility] Work Phone: 1(192) 815-638604-23-2025 Radiology Diagnostic study note [facility] Imaging Services [address] [place] [address] CTA Chest W/WO Contrast MR#: [id number] Acct: [id number] Name: CAITLIN GERMAIN Rep #: [id number] : 1965 F 59 From: Henrik Uriarte MD PCP: Dr. Nehemias Arizmendi MD Status: REG E R Study:CTA Chest W/WO Contrast Date of Exam: 10/18/24 Exam# [id number] Ordering Dr: Kyler Galarza DO PROCEDURE: CTA [...] notified on 10/18/2024 at 2130. Reading Location: [facility] CC: Dr. Kyler Hay DO; Dr. Nehemias Arizmendi MD ~ Rfid Specialist: Signed [facility]04-23-2025 Radiology Diagnostic study note [facility] Imaging Services [address] [place], [place] [id number] Chest PA and Lateral MR#: [id number] Acct: [id number] Name: CAITLIN GERMAIN Rep #: [id number] : 1965 F 59 From: Chao Harrison DO PCP: Dr. Nehemias Arizmendi MD Status: REG E R Study:Chest PA and Lateral Date of Exam: 10/18/24 Exam# [id number] Ordering Dr: Kyler Galarza DO PROCEDURE: CHEST [...] abnormality. Reading Location: [facility] CC: Dr. Kyler Hay, DO; Dr. Nehemias Arizmendi MD ~ Rfid Specialist: Signed [facility]08-05-2024 [facility]07-17-2023 Note. MICRO - Microbiology PROCEDURE: Culture Body [...] Locations *1: This test was performed at: [address], [address] , [facility] ([place])01-09-2023 Hospital Discharge instructions Patient Education 01/09/2023 13:43:01 [...] Slowly return to your usual activities. Take wubv-oce-[id number] and prescription medicines only as told by [...] 03/09/2002 Document Revised: 11/14/2018 Document Reviewed: 11/14/2018 [employer] [facility] Patient Education 2020 [employer]. Follow Up Care 01/06/2023 05:43:33 With:NEHEMIAS ARIZMENDI MD Address: [address] [place] [address] [address] [place] [address] [phone] When:1-2 days Comments:Call to make appointment [facility] 07-15-2023 Note Discharge Instructions Thank you for allowing [facility] to assist you with your healthcare needs. The following is importantdischarge information regarding your hospital visit. Your Care Team NEHEMIAS ARIZMENDI MD Your Diagnosis Diabetes mellitus type 2 Pleural effusion Pericardial effusion What to do next Instructions From Your Doctor Take tapering course of prednisone. Pleural effusion is likely secondary to your underlying rheumatoid arthritis. Please follow-up with your senior qa engineer. No need for any further antibiotics Take [...] days Why: Call to make appointment Where: [address] [place] [address] [address] [place] [address] [phone] The Following Activity and Diet Have Been [...] by mouth Once a day [facility] [facility]/pharmacy #[id number] Changed predniSONE (prednisone 10mg tab (TAPER)) Taper 40-30-20-10 x 3 days each dose by mouth Once a day Duration: 12 Days Take with food/ meal Pickup at [facility]/pharmacy #[id number] Unchanged albuterol (albuterol MDI (90 mcg/ inh) [...] by mouth Once a day Pharmacy Information [facility]/pharmacy #[id number]: [address], [place] [id number] [phone] What How Much When Comments Stop Taking [...] wireless accessories such as remote control, or [employer] devices. Do not reuse a needle, syringe [...] blood pressure, such as diet pills or tqkqw-jwq-qebh medicine. What are the possible side effects [...] may report side effects to FDA at 3-196-QDM-7584. What other drugs will affect furosemide? Sometimes [...] drugs may affect furosemide, including prescription and xwck-gvc-axfvczq medicines, vitamins, and herbal products. Not all [...] to ensure that the information provided by [employer]. ('[employer]') is accurate, up-to-date, and complete, but no guarantee is made to that effect. Drug information contained herein may be time sensitive. [employer] information has been compiled for use by healthcare practitioners and consumers in the [place] and therefore [employer] does not warrant that uses outside of the [place] are appropriate, unless specifically indicated otherwise. [employer] drug information does not endorse drugs, diagnose patients or recommend therapy. [employer] drug information isan informational resource designed to [...] effective or appropriate for any given patient. [employer] does not assume any responsibility for any aspect of healthcare administered with the aid of information [employer] provides. The information contained herein is not intended to cover all possible uses, directions, precautions, warnings, drug interactions, allergic reactions, or adverse effects. If you have questions about the drugs you are taking, check with your doctor, nurse or pharmacist. Copyright 0089-4964 [employer]. Version: 18.01. Revision Date: 09/04/2022. prednisone (PRED antonio Cortes What is the most important information I [...] may report side effects to FDA at 4-977-YZQ-1759. What other drugs will affect prednisone? Sometimes [...] may affect prednisone. This includes prescription and mmaz-fiu-hejcnpb medicines, vitamins, and herbal products. Not all [...] to ensure that the information provided by [employer]. ('[employer]') is accurate, up-to-date, and complete, but no guarantee is made to that effect. Drug information contained herein may be time sensitive. [employer] information has been compiled for use by healthcare practitioners and consumers in the [place] and therefore [employer] does not warrant that uses outside of the [place] are appropriate, unless specifically indicated otherwise. [employer] drug information does not endorse drugs, diagnose patients or recommend therapy. [employer] drug information isan informational resource designed to [...] effective or appropriate for any given patient. [employer] does not assume any responsibility for any aspect of healthcare administered with the aid of information [employer] provides. The information contained herein is not intended to cover all possible uses, directions, precautions, warnings, drug interactions, allergic reactions, or adverse effects. If you have questions about the drugs you are taking, check with your doctor, nurse or pharmacist. Copyright 2903-6113 [employer]. Version: 10.. Revision Date: 09/22/2018. Education Materials [...] Slowly return to your usual activities. Take odbg-cud-dpngyfh and prescription medicines only as told by [...] Document Reviewed: 11/14/2018 Elsevier Patient Education 2020 [employer] Additional Information VACCINATE! IT SAVES LIVES! Members of the community who have not yet received the COVID-19 vaccine and would like to receive it can visit one of [facility] vaccine clinics. There are many vaccine clinic locations within the [facility]. For locations and available times, please visit https://gettheshot.coronavirus.[place].gov/. It is important to note that some COVID mobile vaccine clinics are held outdoors and may be canceled in rainy or stormy conditions. To learn more about pediatric vaccinations (ages 5-11), we invite you to visit the [facility] webpage. https://www.Heyzaps.org/pages/5864-Fubav-Mwxczmnjihx-Kcvomkjvbl-Rxwmj-Dhg stions.htmlTo learn more about the COVID-19 vaccine, we invite you to visit the CDC website for a list of frequently asked questions.https://www.cdc.gov/coronavirus/2019-ncov/vaccines/faq.html [facility] Patient Portal Access Instructions: Stay connected with your healthcare team and access your personal medical information anytime with the [facility] Patient Portal. Please follow the directions below to create your [facility] account: 1.Access the email account you provided upon registration to the hospital/physician office.2.Look for an invitation email from [facility].3.Open the email and access the invitation link: AcceptInvitation to [facility].4.Fill in the required otto to create your account. To access your account, visit [facility]. Click the blue button labeled "Access Patient Portal" and then log in with the username and password that you created in the steps above. You will be able to view your test results, lab results, a summary of your visits, upcoming appointments and more. There is also a convenient messaging option where you can send secure messages to your p rovider. In addition, you will have the ability to download any documents or summaries to your computer and/or send the information securely to a physician. Remember that your healthcare information is confidential, so carefully consider who you will allowto register on the [facility] Patient Portal for access to your information. You can also access the [facility] on the [facility] nichole. Simply click on "Patient Portal" and then log into your account. If you would like to receive a full copy of your medical records, please contact the [facility] Medical Records Department by calling [phone], Wednesday through Wednesday between 8 a.m. and [...] Call your local pharmacy or go to http://Victor/9A3Pc3d to find one close to you.3.Make use of household items: Use cat litter or old coffee grounds to dispose medications if other options arenot available. Mix your drugs with these household products, seal them in an airtight container andthrow it into the garbage. Call [facility]: [phone] to be sure your drugs can be [...] aware that I should contact my doctor. 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 Acute hypoxic respiratory failure 2. Transudative pleural effusion 3. Pericardial effusion 4. Pleuritic chest pain 5. History of diabetes mellitus 6. History of rheumatoid arthritis. Hospital Course 57-year-old female admitted to Cardiology service on January 06 from [facility] with chief complaint of shortness of breath found to have a pericardial effusion. Past medical history of hypertension, hyperlipidemia, mild nonobstructive CAD, diabetes mellitus type 2, tobacco abuse, RA, pancreatitis. She had been seen at [facility] about 2 days prior to coming back in at that time she was diagnosed with a pneumonia and sent home on antibiotics. She continued to have what seems to be pleuritic chest pain and shortness of breath and for that reason went back and was transferred to [facility] for cardiology evaluation. Her imaging showed [...] process. Benign bilateral adrenal adenomas. CCU nurse Galata was directly informed of the pericardial effusion, [...] underlying rheumatoid arthritis. Please follow-up with your senior qa engineer. No need for any further antibiotics Continue [...] hours as needed as needed for wheezing. lbVECHAvgm26 Milligram by mouth once a day. atorvastatin (atorvastatin 20 mg oral tablet)1 tab(s) by mouth daily at bedtime. DULoxetine (DULoxetine 30 mg oral delayed release capsule)2 cap by mouth daily at bedtime. famotidine (famotidine 20 mg oral tablet)1 tab(s) by mouth once a day. hydroxychloroquine (hydroxychloroquine 200 mg oral tablet)1 tab(s) by mouth two (2) times a day. cqzletalh528 Milligram by mouth every 6 hours as needed as needed for pain. leflunomide (leflunomide 20 mg oral tablet)1 tab(s) by mouth once a day. fosqcoqzjriiq424 Microgram by mouth once a day. losartan (losartan 100 mg oral tablet)1 tab(s) by mouth once a day. meclizine (meclizine 25 mg oral tablet)1 tab(s) by mouth three (3) times a day as needed as needed for dizziness. metFORMIN (MetFORMIN (Eqv-Fortamet))1,000 Milligram by mouth two (2) times a day. ubiquinone (Coenzyme Q10)100 Milligram by mouth once a day. Discontinued skwwnerbnng239 Milligram by mouth two (2) times a day for 7 Days. Follow Up Follow Up with NEHEMIAS ARIZMENDI MD When Within 1-2 days Why: Call to make appointment Where: [address] [place] [address] [phone] Follow Up Appointments No qualifying data available. [...] JONATHAN POSEY MD on 01/09/2023 03:15 PM [facility]Exdhrpxu43-71-0246 Pulmonary Progress note Date of Service 01/09/2023 [...] is elevated. Patient does have rheumatology at [facility] that she follows 4. Gentle diuresis Digitally Signed by WINIFRED CUMMINS MD on 01/09/2023 10:10 AM [facility] HospitalIcfpsvil48-41-9566 Note Date of Service 01/08/2023 Reason for Consultation Medical management, transfer of service Referring Physician Dr. Rivas History of Present Illness Patient is a 57-year-old female admitted to Cardiology service on January 06 from [facility] with chief complaint of shortness of [...] process. Benign bilateral adrenal adenomas. CCU nurse Galata was directly informed of the pericardial effusion, [...] effusion Patient presented as a transfer from [facility] under cardiology service for complaint of [...] JUAN C DAO on 01/08/2023 03:10 PM [facility] HospitalChxwsjpi74-70-9589 Note ORIGINAL EXAMINATION: TWO XRAY VIEWS OF [...] Sign Date: 01/08/2023 1:58:59 PM Ordering Provider: WINIFREDJORDAN FINK [facility]07-14-2023 Note ORIGINAL EXAMINATION: TWO XRAY VIEWS OF [...] Sign Date: 01/08/2023 1:58:59 PM Ordering Provider: [facility]07-14-2023 Pulmonary Progress note Date of Service 01/08/2023 [...] WINIFRED CUMMINS MD on 01/08/2023 10:00 AM [facility] HospitalShctjqbi53-42-7718 Cardiology Progress note Date of Service 01/08/23 Chief Complaint SOB HPI 57-year-old woman with past medical history of hypertension, hyperlipidemia, mild nonobstructive CAD, type 2 diabetes, active tobacco abuse, history of dizziness, rheumatoid arthritis, and history ofpancreatitis was transferred from [facility] for pericardial effusion. Patient states that she presented to [facility] on Wednesday for complaints of shortness [...] she was transferred for further work-up to [facility]. Patient states she had a cardiac [...] II, MD PGY-V Cardiovascular Disease Fellow Pager: [phone] Digitally Signed by BONITA RODRIGUEZ MD on 01/08/2023 01:56 PM Digitally Signed by CHRISTIANNE FULLER MD [facility] HospitalQvzxfnsy53-98-0780 Cardiology Progress note Date of Service 01/07/23 Chief Complaint SOB HPI 57-year-old woman with past medical history of hypertension, hyperlipidemia, mild nonobstructive CAD, type 2 diabetes, active tobacco abuse, history of dizziness, rheumatoid arthritis, and history ofpancreatitis was transferred from [facility] for pericardial effusion. Patient states that she presented to [facility] on Wednesday for complaints of shortness [...] she was transferred for further work-up to [facility]. Patient states she had a cardiac [...] II, MD PGY-V Cardiovascular Disease Fellow Pager: [phone] Digitally Signed by BONITA RODRIGUEZ MD on 01/07/2023 12:13 PM [facility] HospitalEhpwgwnq26-02-6588 Pulmonary Progress note Date of Service 01/07/2023 [...] LIAM CLARK MD on 01/07/2023 01:42 PM [facility] HospitalAhnbguzh55-70-1774 Note ORIGINAL HISTORY: Effusion COMPARISON: Previous day FINDINGS: There is no drainable fluid collection. Interpreted by: Blanca Gutiérrez MD Preliminary Report By: Blanca Gutiérrez MD Electronically signed By Blanca Gutiérrez MD Dictated Date: 01/07/2023 10:00:13 AM Prelim Date: 01/07/2023 10:01:06 AM Sign Date: 01/07/2023 10:01:06 AM Ordering Provider: [facility]2023 Note ORIGINAL HISTORY: Effusion COMPARISON: Previous day FINDINGS: There is no drainable fluid collection. Interpreted by: Blanca Gutiérrez MD Preliminary Report By: Blanca Gutiérrez MD Electronically signed By Blanca Gutiérrez MD Dictated Date: 01/07/2023 10:00:13 AM Prelim Date: 01/07/2023 10:01:06 AM Sign Date: 01/07/2023 10:01:06 AM Ordering Provider: [facility]2023 Cardiology Progress note Date of Service 01/07/23 Chief Complaint SOB HPI 57-year-old woman with past medical history of hypertension, hyperlipidemia, mild nonobstructive CAD, type 2 diabetes, active tobacco abuse, history of dizziness, rheumatoid arthritis, and history ofpancreatitis was transferred from [facility] for pericardial effusion. Patient states that she presented to [facility] on Wednesday for complaints of shortness [...] she was transferred for further work-up to [facility]. Patient states she had a cardiac [...] II, MD PGY-V Cardiovascular Disease Fellow Pager: [phone] Digitally Signed by BONITA RODRIGUEZ MD on 01/07/2023 12:13 PM [facility] [id number] Note ORIGINAL EXAMINATION: CT OF THE CHEST [...] Sign Date: 01/07/2023 12:15:42 AM Ordering Provider: WNIIFRED PÉREZ [facility] HospitalHbngbpvb47-73-0660 History and physical note Date of Service 01/06/23 Chief Complaint SOB History of Present Illness 57-year-old woman with past medical history of hypertension, hyperlipidemia, mild nonobstructive CAD, type 2 diabetes, active tobacco abuse, history of dizziness, rheumatoid arthritis, and history ofpancreatitis was transferred from [facility] for pericardial effusion. Patient states that she presented to [facility] on Wednesday for complaints of shortness [...] she was transferred for further work-up to [facility]. 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 Allergies: As documented in chart Review of [...] II, MD PGY-V Cardiovascular Disease Fellow Pager: [phone] Problem List/Past Medical History Ongoing Arthritis H/O [...] BONITA RODRIGUEZ MD on 01/06/2023 09:58 AM [facility] HospitalQjxkudzk92-79-2027 NoteORIGINAL PROCEDURE: ULTRASOUND GUIDED THORACENTESIS CLINICAL STATEMENT: [...] Sign Date: 01/06/2023 3:23:52 PM Ordering Provider: [facility] [place]01-06-2023 Note ORIGINAL PROCEDURE: ULTRASOUND GUIDED THORACENTESIS CLINICAL [...] Sign Date: 01/06/2023 3:23:52 PM Ordering Provider: [facility]07-12-2023 Note ORIGINAL EXAMINATION: CT OF [...] 01/07/2023 12:15:42 AM Ordering Provider: [facility]07-12-2023 Evaluation + Plan noteExtracted from: [...] II, MD PGY-V Cardiovascular Disease Fellow Pager: [phone] Addendum by RAUL FULLER MD on January [...] Fluid 01/06/23 * pH Body Fluid 01/06/23 [facility] 07-12-2023 Respiratory therapy Hospital Progress note [...] by GÓMEZ Valle on 01/06/2023 01:33 PM [facility] HospitalBevzzcvi07-95-9577 Note ORIGINAL EXAMINATION: ONE XRAY VIEW OF [...] 01/06/2023 12:20:37 PM Ordering Provider: ROSA LIZ [facility] [id number] Note ORIGINAL EXAMINATION: ONE XRAY VIEW OF [...] Sign Date: 01/06/2023 12:15:56 PM [facility] HospitalYjitmcrg44-51-0621 Pulmonary Consult note Date of Service 01/06/2023 Reason for Consultation Pleural effusions Referring Physician Dr. Rivas History of Present Illness 57-year-old woman with past medical history of hypertension, hyperlipidemia, CAD, type 2 diabetes, active tobacco abuse, history of dizziness, rheumatoid arthritis, and history of pancreatitis was transferred from [facility] for pericardial effusion. Patient states that she presented to [facility] on Wednesday for complaints of shortness [...] She was transferred for further work-up to [facility]. When I saw her this morning [...] WINIFRED CUMMINS MD on 01/06/2023 12:15 PM [facility] HospitalOfwzrhvm82-43-6089 Note ORIGINAL EXAMINATION: ONE XRAY VIEW OF [...] Sign Date: 01/06/2023 12:20:37 PM Ordering Provider: [facility]07-12-2023 Note ORIGINAL PROCEDURE: ULTRASOUND GUIDED THORACENTESIS [...] 01/06/2023 3:23:52 PM Ordering Provider: [facility]07-12-2023 Note US Procedure Record Summary Primary Physician: CHING GARLAND PA-C Finalized Date/Time: 01/06/23 11:37:34 Pt. Name: CAITLIN GERMAIN/Sex: 1965 Female Med Rec #: [id number] Physician: ARIANA RIVAS MD Financial #: [id number] Pt. Type: I Room/Bed: [facility]/A Admit/Disch: 01/06/23 05:42:07 - Institution: Allergies identified [...] M Role Performed Primary Surgeon Radiology PA/ Binder Coverstitch Details Time In 01/06/23 11:18:00 01/06/23 11:17:00 01/06/23 11:20:00 Time Out 01/06/23 11:26:00 01/06/23 11:26:00 01/06/23 11:22:00 Procedure/Preference US Thoracentesis Left US Thoracentesis Left US Thoracentesis Left Card (SN) (SN) (SN) Last Modified By: Skye Adames Lauren M Clark, Lauren M 01/06/23 11:27:00 01/06/23 11:27:00 01/06/23 11:27:00 Entry 4 Case Attendee SURYA Bonner Role Performed Binder Coverstitch Details Time In 01/06/23 11:23:00 Time Out [...] Data- US Entry 1 Case Information Room [facility] Receiving Case Level None Wound Class None [...] instrumentation, sponges, or sharps). Outcomes Met? Yes Glue Drier Operator Skye Adames Completing Procedure Plan Last Modified By: Skye Adames 01/06/23 11:21:14 Radiology Lines and Procedures- US Entry 1 Radiology Sedation Case Times Sedation Total Time 0 Radiology - Fluid/Drainage RAD - US [place], Guidewires, Cath.... Catheters M-Drain Centesis Miscellaneous Items [...] Signatures Signed By: Skye Adames 01/06/23 11:37 [facility] HospitalMhplxwjn22-42-4965 Procedure note IR Brief Post Procedure Note Preprocedure Dx: Left Pleural Effusion PERICARDIAL EFFUSION, CHF Post Procedure Dx: Same Procedure: 1. Ultrasound Guided Left Thoracentesis International Marketing Coordinator: Rosa Liz PA-C Jewelry Bench Worker: None Anesthesia: Local EBL: Minimal Complications: No immediate complications suspected Status: Stable Findings: 1. 600 mL yellow serous fluid drained from left pleural space. 2. Patient tolerated the procedure well with minimal discomfort. Plan: 1. CXR 2. Fluid sent to lab. Full report to follow. Orders in [employer]. Rosa Liz PA-C Interventional Radiology Dept [id number] Available on [employer] Digitally Signed by ROSA LIZ PA-C on 01/06/2023 11:36 AM [facility] HospitalYxvckubs51-47-9734 History and physical note Date of Service 01/06/23 Chief Complaint SOB History of Present Illness 57-year-old woman with past medical history of hypertension, hyperlipidemia, mild nonobstructive CAD, type 2 diabetes, active tobacco abuse, history of dizziness, rheumatoid arthritis, and history ofpancreatitis was transferred from [facility] for pericardial effusion. Patient states that she presented to [facility] on Wednesday for complaints of shortness [...] she was transferred for further work-up to [facility]. 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 Allergies: As documented in chart Review of [...] II, MD PGY-V Cardiovascular Disease Fellow Pager: [phone] Problem List/Past Medical History Ongoing Arthritis H/O [...] BONITA RODRIGUEZ MD on 01/06/2023 09:58 AM [facility] HospitalIskselki51-12-2075 Note ORIGINAL EXAMINATION: ONE XRAY VIEW OF [...] Sign Date: 01/06/2023 12:15:56 PM Ordering Provider: [facility]07-12-2023 Discharge summary Author Wayne Germain [facility] January 06, 2023 12:07am Note Date/Time January 05, 2023 3:28 pm [facility] Medical Records Department [address] [place] [address] Emergency Department Summary 01/05/23 MR#: [id number] Acct: [id number] Name: CAITLIN GERMAIN Rep #:[id number] : 1965 57 From: Wayne eGrmain DO PCP: Dr. Nehemias Arizmendi MD Status:REG [...] Patient states he is never had an IA. She does have diabetes, hypertension, hyperlipidemia. [facility] Medical History (Reviewed 11/16/22 @ 15:07 by Rahel Mosley CAPITAL MARKETS SPECIALIST, CAPITAL MARKETS SPECIALIST-C) Abnormal cardiac CT angiography Back pain Cardiology [...] pericardial window. Discussed with Dr. Wallace at [facility] because this is where the patient wanted [...] 76.7 H Lymph % (Auto) 10.1 L Mcintosh % (Auto) 10.0 Eos % (Auto) 2.3 [...] your Primary Care Provider. Call [facility] ([phone]) or report to the closest Emergency Room. Call 911 if necessary. 01/06/236 <Electronically signed by Wayne Germain DO> Cosigner Signature (if applicable): CC: Dr. Nehemias Arizmendi MD ~ Signed [facility] Work Phone: evaluation noteNo assessment information available [facility] Work Phone: evaluation note* Diagnosis Onset Date Resolution Status Abnormal electrocardiogram a cute Dyspnea on exertion acute Essential hypertension acute Tachycardia acute [facility] Work Phone: evaluation note* Diagnosis Onset Date Resolution Status Abnormal electrocardiogram a cute Dyspnea on exertion acute Essential hypertension acute Tachycardia acute Left thyroid nodule acute Right thyroid nodule acute Abnormal electrocardiogram a cute Abnormal stress test acute Dyspnea on exertion acute Essential hypertension acute Tachycardia acute Left thyroid nodule acute [facility] Work Phone: evaluation note* Diagnosis Onset Date Resolution Status Abnormal electrocardiogram a cute Dyspnea on exertion acute Essential hypertension acute Tachycardia acute Left thyroid nodule acute Right thyroid nodule acute Abnormal electrocardiogram a cute Abnormal stress test acute Dyspnea on exertion acute Essential hypertension acute Tachycardia acute Left thyroid nodule acute Abnormal electrocardiogram a cute Essential hypertension acute Tachycardia acute [facility] Work Phone: evaluation note* Diagnosis Onset Date [...] Rheumatoid arthritis acute Right thyroid nodule acute [facility] Work Phone: evaluation note* Diagnosis Onset Date [...] thyroid nodule acute Left thyroid nodule acute [facility] Work Phone: Evaluation note* Diagnosis Onset Date [...] nodule resolved S/P total thyroidectomy acut e [facility] Work Phone: Evaluation note* Diagnosis Onset Date [...] exertion acute Essential hypertension acute Tachycardia acute [facility] Work Phone: Evaluation note* Diagnosis Onset Date Resolution Status Abnormal electrocardiogram a cute Essential hypertension acute Tachycardia acute Rheumatoid arthritis acute Right thyroid nodule acute Left thyroid nodule resolved Left thyroid nodule resolved S/P total thyroidectomy acut e Abnormal stress test acute Current smoker acute Dyspnea on exertion acute Essential hypertension acute Tachycardia acute [facility] [facility] Work Phone: Evaluation note* Diagnosis Onset Date Resolution Status S/P total thyroidectomy acut e Abnormal stress test acute Current smoker acute Dyspnea on exertion acute Essential hypertension acute Tachycardia acute [facility] Work Phone: Evaluation note* Diagnosis Onset Date Resolution Status Polyneuropathy acute Hyperglycemia chronic Peripheral vestibulopathy re solved [facility] Work Phone: Evaluation note* Diagnosis Onset Date Resolution Status Polyneuropathy acute Hyperglycemia chronic Peripheral vestibulopathy re solved Abnormal stress test acute Current smoker acute Essential hypertension acute Tachycardia acute [facility] Work Phone: Hospital course Narrative No data available for this section [facility] Hospital Discharge instructions Additional Instructions Take doxycycline and use the inhaler as needed for wheezing and shortness of breath. 7 or you have more difficulty breathing come back to the emergency room.[facility] Work Phone: Hospital Discharge instructions No data available for this section [facility] Progress note No data available for this section [facility] Reason for referral (narrative)No reason for referral information [facility] Work [facility]: Chief Complaint and Reason [...] No March 24, 2022 7:39am Power of Solo Musician No February 7:39am Advance Directive Response Recorded Date/ Time Advance Directives No February 7:39am Living Will No April 08 10:06am Power of Solo Musician No April 08, 2022 10:06am Advance Directive Response Recorded Date/ Time Advance Directives No February 7:39am Living Will No April 15 1:33pm Power of Solo Musician No April 15, 2022 1:33pm Advance Directive Response Recorded Date/ Time Advance Directives No February 6:39am Living Will No April 15 12:33pm Power of Solo Musician No April 15, 2022 12:33pm Advance Directive Response Recorded Date/ Time Advance Directives No February 7:39am Living Will No January 03, 2023 1 1:25am Power of Solo Musician No January 03, 2023 11:25am Advance Directive Response Recorded Date/ Time Advance Directives No February 7:39am Living Will No January 05, 2023 3:04pm Power of Solo Musician No January 05 3:04pm Advance Directive Response Recorded Date/ Time Advance Directives No February 6:39am Living Will No January 05, 2023 2:04pm Power of Solo Musician No January 05 2:04pm Advance Directive Response Recorded Date/ Time Advance Directives No February 7:39am Advance Directive Response Recorded Date/ Time Do you have a Healthcare Power of Solo Musician? No October 18, 2024 7:33pm Advance Directives No February 7:39am Advance Directive Response Recorded Date/ Time Do you have a Healthcare Power of Solo Musician? No October 18, 2024 11:10pm Advance Directives [...] Care Provider, Referring Provider Active Rahel Mosley NP, [employer]-C Attending Provider Active Team Status: Inactive Member [...] End: October 23, 2024 Dr. Kyler Hay , Emergency Provider Activ e Start: October 18, 2024 End: October 23, 2024 Dr. Bharathi Robles , DO Admit Provider Active Start: October 18, 2024 End: October 23, 2024 Dr. Bharathi Robles , Other Provider Active Start: October 18, 2024 End: October 23, 2024 Dr. Dre Lilly MD Other Provider Active Start : October 18, 2024 End: October 23, 2024 Dr. Leobardo Soto , Attending Provider Active Start: October 18, 2024 End: October 23, 2024 Dr. Sy Gr , Other Provider Active S tart: October 18, [...] 19, 2024 Dr. Bharathi Robles , DO Referring Provider Active Start: October [...] 19, 2024 Dr. Sy Gr , DO Attending Provider Active Start: October 19, 2024 [...] October 19, 2024 Dr. Leobardo Soto , Referring Provider Active Start: October 19, [...] October 23, 2024 Dr. Leobardo Soto , Attending Provider Active Start: October 23, 2024 [...] End: October 23, 2024 Dr. Kyler Hay , DO Emergency Provider Activ e Start: October 18, 2024 End: October 23, 2024 Dr. Bharathi Robles , DO Admit Provider Active Start: October 18, 2024 End: October 23, 2024 Dr. Bharathi Robles , DO Other Provider Active Start: October 18, [...] 2025 End: January 14, 2025 Yrn Champion [employer]IST, [employer]IST-C Attending Provider Active S tart: January 14, 2025 End: January 14, 2025 INFORMATION SOURCE (unrecogn ized section and content) DATE CREATED AUTHOR 01/12/2023 [facility] [place] ([place] DATE CREATED AUTHOR AUTHOR'S ORGANIZ ATION 12/01/2024 [facility] FOR RECORDS PERTAINING TO PATIENTS WHO ARE [...] BE BASED ON THE PRIMARY CLINICAL RECORDS. [employer] provides no warranty or guarantee of the accuracy or completeness of information in this document.
[2025-01-14 23:58] LABS: BETA-HYDROXYBUTYRATE 0.7 mmol/L (0.0-0.3)
[2025-01-15] VITALS (24 sets, daily range): BP systolic 88–126; BP diastolic 54–82; PULSE 88–112; RESP 15–31; TEMP 36.4–37.9; O2SAT 92–100; BMI 36.8
--- OUTSIDE RECORDS SUMMARY | 2025-01-15 01:00 | XMS RPT_ITS | CCD ---
Author Organization [facility] CliniSynh Care Team Providers Care Chief Privacy Officer Name Role Phone Dr. Nehemias Arizmendi Primary Care Provider [phone] Nehemias Arizmendi Referring Provider Dr. Nehemias Arizmendi Other Provider Dr. Nehemias Olsen Attending Provider Ngoc Ochoa Attending Provider Unavailable Dr. Nehemias Arizmendi Primary Care Provider Dr. Nehemias Arizmendi Referring Provider 1([facility])[phone] Nehemias Olsen Attending Provider Dr. Nehemias Olsen Referring Provider Dr. Nehemias Olsen Other Provider 1([facility])[phone] Amber Krishnan Attending Provider Unavailable Dr. Edgar Jefferson Attending Provider [phone] Dimitri ATHLETIC TURF WORKER, ATHLETIC TURF WORKER-C Rahel Attending Provider Dimitri ATHLETIC TURF WORKER, ATHLETIC TURF WORKER-C Rahel Referring Provider Dimitri MANUEL, ATHLETIC TURF WORKER-C Rahel Other Provider 1([facility])[phone] Edgar Jefferson Referring Provider [phone] Dr. Edgar Jefferson Other Provider Dr. Nehemias Arizmendi Primary Care Provider 1([facility])[phone] Nehemias Olsen Attending Provider Dr. Nehemias Olsen Referring Provider Dr. Nehemias Olsen Other Provider 1([facility])[phone] Amber Krishnan Attending Provider Unavailable Dr. Nehemias Arizmendi Referring Provider 1([facility])[phone] Edgar Jefferson Attending Provider Dimitri MANUEL, MAR-Camilo Mcginnis Attending Provider Dimitri ATHLETIC TURF WORKER, MAR-Camilo Mcginnis Referring Provider Dimitri MANUEL NP-Camilo [...] Provider Dr. Kyler Hay DO Emergency Provider [facility], Dr. Justin Admit Provider Unavail able Rob[place] [...] Arizmendi , Dr. Del Cid Attending Provider [phone] Ugo HAMMOND, Dr. Del Cid Referring Provider [phone] Ugo HAMMOND, Dr. Del Cid Primary Care Provider [phone] Rachel HAMMOND, Dr. Ortiz Attending Provider [facility] Yrn PIERCE Attending Provider [phone] Allergies Allergy Classification Reported Allergen(s) Allergy Type Date of Onset Reaction(s) Facility (20 sources) Sulfonamides (Antibiotic) Allergy to substance 2 [facility] (2 sources) Sulfamethoxazole / Trimethoprim; Translations: [sulfamethoxazole-tr imethoprim] Drug Allergy [facility] (1 source) Sulfonamides (Antibiotic); Translations: [sulfa drugs] Drug allergy [facility] (1 source) Sulfonamide; Translations: [sulfa drugs] Drug allergy [facility] (1 source) Sulfonamides (Antibiotic) Drug allergy (disorder) 5 [facility] Repository Medications Current Medications Medication Drug [...] qDay, # 30 tab(s), 0 Refill(s), Pharmacy: [facility]/pharmacy #[id number], 160, cm, 01/06/23 6:00:00 EDT, Height [...] food/meal, # 30 tab(s), 0 Refill(s), Pharmacy: [facility]/pharmacy #[id number], 160, cm, 01/06/23 6:00:00 EDT, Height [...] Coronary atherosclerosis; Translations: [Atherosclerotic heart disease of [place] coronary artery with other forms of angina [...] ay was obtained November 27, 2020 at [facility]. There was felt to be an air-fluid level on the medial right heart border. [place] possibly the hiatal hernia. Does appear to [...] 11-27-2024 Anion gap [Moles/Vol] 15 mmol/L -15 [facility] BUN/creatinine ratioOrdered By: Nehemias Arizmendi on 11-27-2024 Urea nitrogen/Creatinine [Mass ratio] 24.2 mg/mg High 10- [facility] Calculated very low density lipoprotein (VLDL) cholesterol measurementOrdered By: Nehemias Arizmendi on 11-27-2024 Calculated very low density lipoprotein (VLDL) cholesterol measurement 33 mg/dL 5-40 [facility] Comprehensive Metabolic Prof ilon 11-27-2024 ALK PHOS 106 U/L High 35-104 [facility] Comment on above: Performed By: #### L 501.44014, L501.9985, L506.0400, L502.0250, L500.4050, L500.4100, L501.9520 ####[facility] [address] [place], [address] BUN/CRE 24.2 RATIO High 10-20 [facility] Comment on above: Performed By: #### L 501.77832, L501.9985, L506.0400, L502.0250, L500.4050, L500.4100, L501.9520 ####[facility] [address] [place], [address] GAP 15 Normal 5-15 [facility] Comment on above: Performed By: #### L 501.88405, L501.9985, L506.0400, L502.0250, L500.4050, L500.4100, L501.9520 ####[facility] [address] [place], [address] Potassium [Moles/Vol] 3.8 mmol/L Normal 3.3-5.1 [facility] Comment on above: Performed By: #### L 501.16696, L501.9985, L506.0400, L502.0250, L500.4050, L500.4100, L501.9520 ####[facility] [address] [place], [address] T PROT 8.3 g/dL Normal 5.9-8.4 [facility] Comment on above: Performed By: #### L 501.58492, L501.9985, L506.0400, L502.0250, L500.4050, L500.4100, L501.9520 ####[facility] [address] [place], [address] Comprehensive Metabolic Prof ilOrdered By: Nehemias Arizmendi on 11-27-2024 Albumin [Mass/Vol] 4.3 g/dL 3.4-4.8 [facility] Comment on above: Performed By: #### L 501.96342, L501.9985, L506.0400, L502.0250, L500.4050, L500.4100, L501.9520 ####[facility] [address] [place], [address] Albumin/Globulin [Mass ratio] 1.1 {ratio} 0.9-2.4 [facility] Comment on above: Performed By: #### L 501.07880, L501.9985, L506.0400, L502.0250, L500.4050, L500.4100, L501.9520 ####[facility] [address] [place], [address] ALT [Catalytic activity/Vol] 11 U/L <35 [facility] Comment on above: Performed By: #### L 501.25450, L501.9985, L506.0400, L502.0250, L500.4050, L500.4100, L501.9520 ####[facility] [address] [place], [address] AST [Catalytic activity/Vol] 18 U/L <32 [facility] Comment on above: Performed By: #### L 501.44716, L501.9985, L506.0400, L502.0250, L500.4050, L500.4100, L501.9520 ####[facility] [address] [place], [address] Bilirubin [Mass/Vol] 0.44 mg/dL 0.00-1.30 [facility] Comment on above: Performed By: #### L 501.38581, L501.9985, L506.0400, L502.0250, L500.4050, L500.4100, L501.9520 ####[facility] [address] [place], [address] Calcium [Mass/Vol] 9.9 mg/dL 7.6-11.0 [facility] Comment on above: Performed By: #### L 501.89887, L501.9985, L506.0400, L502.0250, L500.4050, L500.4100, L501.9520 ####[facility] [address] [place], [address] Chloride [Moles/Vol] 103 mmol/L 98-108 [facility] Comment on above: Performed By: #### L 501.02785, L501.9985, L506.0400, L502.0250, L500.4050, L500.4100, L501.9520 ####[facility] [address] [place], [place], [phone] CO2 [Moles/Vol] 23.8 mmol/L 21.0-32.0 [facility] Comment on above: Performed By: #### L 501.21328, L501.9985, L506.0400, L502.0250, L500.4050, L500.4100, L501.9520 ####[facility] [address] [place], [place], [phone] Creatinine [Mass/Vol] 0.65 mg/dL Low 0.70-1.20 [facility] Comment on above: Performed By: #### L 501.50137, L501.9985, L506.0400, L502.0250, L500.4050, L500.4100, L501.9520 ####[facility] [address] [place], [address] GFR/1.73 sq M.predicted among non-blacks MDRD (S/P/Bld) [Vol rate/Area] 100 mL/min/{1.73_m2} >60 [facility] Comment on above: Result Comment: mL/m in/1.73m2 CKD-EPI Creatinine Equation (2020) Performed By: #### L 501.84316, L501.9985, L506.0400, L502.0250, L500.4050, L500.4100, L501.9520 ####[facility] [address] [place], [address] mL/min/1.73m2 CKD-EP I Creatinine Equation (2020) Globulin (S) [Mass/Vol] 4.0 g/dL 2.2-4.2 [facility] Comment on above: Performed By: #### L 501.78083, L501.9985, L506.0400, L502.0250, L500.4050, L500.4100, L501.9520 ####[facility] [address] [place], [address] Glucose [Mass/Vol] 177 mg/dL High 70-99 [facility] Comment on above: Performed By: #### L 501.59433, L501.9985, L506.0400, L502.0250, L500.4050, L500.4100, L501.9520 ####[facility] [address] [place], [address] Sodium [Moles/Vol] 141 mmol/L 133-145 [facility] Comment on above: Performed By: #### L 501.37559, L501.9985, L506.0400, L502.0250, L500.4050, L500.4100, L501.9520 ####[facility] [address] [place], [address] Urea nitrogen [Mass/Vol] 16 mg/dL 4-19 [facility] Comment on above: Performed By: #### L 501.82002, L501.9985, L506.0400, L502.0250, L500.4050, L500.4100, L501.9520 ####[facility] [address] [place], [address] Free Y9Lcselwq By: Nehemias petty on 11-27-2024 Free T3 [Mass/Vol] 2.9 pg/mL 2.18-3.98 [facility] Comment on above: Performed By: #### L 501.04484, L501.9985, L506.0400, L502.0250, L500.4050, L500.4100, L501.9520 ####[facility] [address] [place], [address] Hemoglobin A1con 11-27-2024 HbA1c (Bld) [Mass fraction] 8.6 % High <=5.6 [facility] Comment on above: Result Comment: Norm al < 5.7 % Prediabetic 5.7 - 6.4 % Diabetic >or= 6.5 % Please note range changes. Performed By: #### L 501.64513, L501.9985, L506.0400, L502.0250, L500.4050, L500.4100, L501.9520 ####[facility] [address] [place], [address] Hemoglobin A1c percentageOrd ered By: Nehemias Arizmendi on 11-27-2024 HbA1c (Bld) [Mass fraction] 8.6 % High <5.7 [facility] Comment on above: Normal < 5.7 % Predi abetic 5.7 - 6.4 % Diabetic >or= 6.5 % Please note range changes. Lipid Profileon 11-27-2024 CHOL:HDL 2.38 Normal [facility] Comment on above: Performed By: #### L 501.46028, L501.9985, L506.0400, L502.0250, L500.4050, L500.4100, L501.9520 ####[facility] [address] [place], [address] Cholesterol in VLDL [Mass/Vol] 33 mg/dL Normal 5-40 [facility] Comment on above: Performed By: #### L 501.88370, L501.9985, L506.0400, L502.0250, L500.4050, L500.4100, L501.9520 ####[facility] [address] [place], [place], [address] Lipid ProfileOrdered By: Norma Arizmendi on 11-27-2024 Cholesterol [Mass/Vol] 155 mg/dL <201 [facility] Comment on above: Result Comment: Chol esterol level, Desirable <200 mg/dLBorderline high cholesterol 200-239 mg/dLHigh cholesterol >=240 mg/dLRecommendations of the NCEP Adult Treatment Panel for thefollowing risk-cutoff thresholds for the [place] Americanpopulation. Performed By: #### L 501.38724, L501.9985, L506.0400, L502.0250, L500.4050, L500.4100, L501.9520 ####[facility] [address] [place], [place], [phone] Cholesterol level, D esirable <200 mg/dLBorderline high cholesterol 200-239 mg/dLHigh cholesterol >=240 mg/dLRecommendations of the NCEP Adult Treatment Panel for the following risk-cutoff thresholds for the [place] population. Cholesterol in HDL [Mass/Vol] 65 mg/dL >40 [facility] Comment on above: Result Comment: Adrienne onal Cholesterol Education Program (NCEP) guidelines:<40 mg/dL: Low HDL-cholesterol (major risk factor for CHD)>= 60 mg/dL: High HDL-cholesterol (negative risk factor forCHD)HDL-cholesterol is affected by a number of factors, e.g.smoking, exercise, hormones, sex and age. Performed By: #### L 501.64242, L501.9985, L506.0400, L502.0250, L500.4050, L500.4100, L501.9520 ####[facility] [address] [place], [place], [phone] National Cholesterol Education Program (NCEP) guidelines:<40 mg/dL: Low HDL-cholesterol (major risk factor for CHD)>= 60 mg/dL: High HDL-cholesterol (negative risk factor for CHD)HDL-cholesterol is affected by a number of factors, e.g. smoking, exercise, hormones, sex and age. Cholesterol in LDL [Mass/Vol] 57 mg/dL [facility] Comment on above: Result Comment: Bord cepelh=785-771 mg/dL Higher Wipb=296 mg/dL or greater Performed By: #### L 501.16426, L501.9985, L506.0400, L502.0250, L500.4050, L500.4100, L501.9520 ####[facility] [address] [place], [address] Cwhvhhsaqu=946-343 m g/dL & Higher Lurt=794 mg/dL or greater Triglyceride [Mass/Vol] 164 mg/dL <199 [facility] Comment on above: Result Comment: The drugs N-Acetylcysteine and Metamizole may falselydepress this assay.Normal range: <150 mg/dLBorderline High: 150-199 mg/dLHigh: 200-499 mg/dLVery High: >500 mg/dL Performed By: #### L 501.27680, L501.9985, L506.0400, L502.0250, L500.4050, L500.4100, L501.9520 ####[facility] [address] [place], [place], [phone] The drugs N-Acetylcy steine and Metamizole may falsely depress this assay. Normal range: <150 mg/dLBorderline High: 150-199 mg/dLHigh: 200-499 mg/dLVery High: >500 mg/dL Microalb:Creat Ratio,Random URon 11-27-2024 Creatinine [Mass/Vol] 24.50 mg/dL Low 28.00- 217. 00 [facility] Comment on above: Performed By: #### L 501.41528, L501.9985, L506.0400, L502.0250, L500.4050, L500.4100, L501.9520 ####[facility] [address] [place], [place], [phone] MALB:CREAT UNABLE TO CALCULATE Normal [facility] Comment on above: Performed By: #### L 501.26757, L501.9985, L506.0400, L502.0250, L500.4050, L500.4100, L501.9520 ####[facility] [address] [place], [place], [phone] MICROALBUMIN,UR < 12.0 Normal NO RANGE EST. [facility] Comment on above: Performed By: #### L 501.65969, L501.9985, L506.0400, L502.0250, L500.4050, L500.4100, L501.9520 ####[facility] [address] [place], [place], [phone] Microalbumin/creat ratio urO rdered By: Nehemias Arizmendi on 11-27-2024 Urine microalbumin/creatinin e ratio measurement UNABLE TO CALCULATE mg/g CRE [facility] Potassium measurement (mass/ volume)Ordered By: Nehemias Arizmendi on 11-27-2024 Potassium (Unsp spec) [Mass/Vol] 3.8 mmol/L 3.3-5.1 [facility] Random urine creatinine jasiel urement (mass/volume)Ordered By: Nehemias Arizmendi on 11-27-2024 Creatinine Unsp time (U) [Mass/Vol] 24.50 mg/dL Low 28.00-217. 00 [facility] Screening total cholesterol/ high density lipoprotein (HDL) cholesterol ratioOrdered By: Neheimas Arizmendi on 11-27-2024 Cholesterol.total/Chol esterol in HDL [Mass ratio] 2.38 {ratio} [facility] Serum or plasma alkaline quintin sphatase measurementOrdered By: Nehemias Arizmendi on 11-27-2024 ALP [Catalytic activity/Vol] 106 U/L High 35-104 [facility] T4 Free Directon 11-27-2024 T4 FREE DIRECT 1.70 ng/dL High 0.76-1.46 [facility] Comment on above: Performed By: #### L 501.11575, L501.9985, L506.0400, L502.0250, L500.4050, L500.4100, L501.9520 ####[facility] [address] [place], [address] T4 freeOrdered By: Nehemias petty on 11-27-2024 Free T4 [Mass/Vol] 1.70 ng/dL High 0.76-1.46 [facility] TSH DL <= 0.005 mIU/L QnOrde red By: Nehemias Arizmendi on 11-27-2024 TSH Qn 0.293 uIU/mL Low 0.300-4.20 0 [facility] Thyroid Stim Hormone (TSH)on 11-27-2024 TSH 0.293 uIU/mL Low 0.300-4.20 0 [facility] Comment on above: Performed By: #### L 501.51809, L501.9985, L506.0400, L502.0250, L500.4050, L500.4100, L501.9520 ####[facility] [address] [place], [place], [phone] Total proteinOrdered By: Norma Arizmendi on 11-27-2024 Protein [Mass/Vol] 8.3 g/dL 5.9-8.4 [facility] Urine albumin measurement wi th detection limit of 20 mg/L or less (mass/volume)Ordered By: Nehemias Arizmendi on 11-27-2024 Albumin DL <= 20 mg/L (U) [Mass/Vol] < 12.0 mg/L NO RANGE EST. [facility] Absolute lymphocyte countOrd ered By: Diana Ramos on 11-21-2024 Lymphocytes Auto (Unsp spec) [#/Vol] 1.75 10*3/uL 0.83-4.51 [facility] Absolute neutrophil countOrd ered By: Diana Ramos on 11-21-2024 Neutrophils (Bld) [#/Vol] 5.7 10*3/uL 2.0-7.7 [facility] Anion gap in Serum or Plasma Ordered By: Diana Ramos on 11-21-2024 Anion gap [Moles/Vol] 15 mmol/L - [facility] Automated lymphocyte count a s percentage of total leukocytesOrdered By: Diana Ramos on 11-21-2024 Lymphocytes/100 WBC Auto (Unsp spec) 21.3 % - [facility] BUN/creatinine ratioOrdered By: Diana Ramos on 11-21-2024 Urea nitrogen/Creatinine [Mass ratio] 22.0 mg/mg High 10- [facility] Basophil percentageOrdered B y: Diana Ramos on 11-21-2024 Basophils/100 WBC (Bld) 0.6 % 0-1 [facility] Bilirubin, totalOrdered By: Diana Ramos on 11-21-2024 Bilirubin [Mass/Vol] 0.44 mg/dL 0.00-1.30 [facility] CBC W/Diff, Automatedon 10-27 Absolute Lymph 1.75 X10 3/uL Normal 0.83-4.51 [facility] Comment on above: Performed By: #### L 500.4050, L100.0100 ####[facility] [address] [place], [address] Absolute Neut 5.7 X10 3/uL Normal 2.0-7.7 [facility] Comment on above: Performed By: #### L 500.4050, L100.0100 ####[facility] [address] [place], [address] Basophils/100 WBC (Bld) 0.6 % Normal 0-1 [facility] Comment on above: Performed By: #### L 500.4050, L100.0100 ####[facility] [address] [place], [address] Eosinophils/100 WBC (Bld) 1.8 % Normal 0-5 [facility] Comment on above: Performed By: #### L 500.4050, L100.0100 ####[facility] [address] [place], [address] Erythrocyte distribution width (RBC) [Ratio] 14.6 % Normal 11.6-14.6 [facility] Comment on above: Performed By: #### L 500.4050, L100.0100 ####[facility] [address] [place], [address] Hematocrit (Bld) [Volume fraction] 44.0 % Normal 37-47 [facility] Comment on above: Performed By: #### L 500.4050, L100.0100 ####[facility] [address] [place], [address] Hemoglobin (Bld) [Mass/Vol] 14.0 g/dL Normal 12.0-15.0 [facility] Comment on above: Performed By: #### L 500.4050, L100.0100 ####[facility] [address] [place], [address] IG% 0.500 Normal 0.0-0.9 [facility] Comment on above: Result Comment: IG% - Immature Granulocytes (promyelocytes, myelocytes andmetamyelocytes) > 1% indicates that a LEFT SHIFT is Present. Performed By: #### L 500.4050, L100.0100 ####[facility] [address] [place], [address] Lymphocytes/100 WBC (Bld) 21.3 % Normal 19-41 [facility] Comment on above: Performed By: #### L 500.4050, L100.0100 ####[facility] [address] [place], [address] MCH (RBC) [Entitic mass] 28.1 pg Normal 27.0-32.0 [facility] Comment on above: Performed By: #### L 500.4050, L100.0100 ####[facility] [address] [place], [address] MCHC (RBC) [Mass/Vol] 31.8 g/dL Low 32-36 [facility] Comment on above: Performed By: #### L 500.4050, L100.0100 ####[facility] [address] [place], [address] MCV (RBC) [Entitic vol] 88.2 fL Normal 81-99 [facility] Comment on above: Performed By: #### L 500.4050, L100.0100 ####[facility] [address] [place], [address] Monocytes/100 WBC (Bld) 6.6 % Normal 0-10 [facility] Comment on above: Performed By: #### L 500.4050, L100.0100 ####[facility] [address] [place], [address] Neutrophils/100 WBC (Bld) 69.2 % Normal 47-70 [facility] Comment on above: Performed By: #### L 500.4050, L100.0100 ####[facility] [address] [place], [address] Nucleated RBC (Bld) [#/Vol] 0 10*3/uL Normal 0-5 [facility] Comment on above: Performed By: #### L 500.4050, L100.0100 ####[facility] [address] [place], [address] Platelet mean volume (Bld) [Entitic vol] 10.0 fL Normal 6.2-12.0 [facility] Comment on above: Performed By: #### L 500.4050, L100.0100 ####[facility] [address] [place], [address] Platelets (Bld) [#/Vol] 231 10*3/uL Normal 150-450 [facility] Comment on above: Performed By: #### L 500.4050, L100.0100 ####[facility] [address] [place], [address] RBC (Bld) [#/Vol] 4.99 10*6/uL Normal 4.2-5.4 [facility] Comment on above: Performed By: #### L 500.4050, L100.0100 ####[facility] [address] [place], [address] RDW SD 46.7 fl High 35.1-43.9 [facility] Comment on above: Performed By: #### L 500.4050, L100.0100 ####[facility] [address] [place], [address] WBC (Bld) [#/Vol] 8.2 10*3/uL Normal 4.4-11.0 [facility] Comment on above: Performed By: #### L 500.4050, L100.0100 ####[facility] [address] [place], [address] Carbon dioxide, total [Moles /volume] in Central venous bloodOrdered By: Diana Ramos on 11-21-2024 CO2 [Moles/Vol] 21.2 mmol/L 21.0-32.0 [facility] Chloride assayOrdered By: Sanaz Ramos on 11-21-2024 Chloride [Moles/Vol] 103 mmol/L 98-108 [facility] Comprehensive Metabolic Prof ilon 11-21-2024 Albumin [Mass/Vol] 4.1 g/dL Normal 3.4-4.8 [facility] Comment on above: Performed By: #### L 500.4050, L100.0100 ####[facility] [address] [place], [address] Albumin/Globulin [Mass ratio] 1.1 {ratio} Normal 0.9-2.4 [facility] Comment on above: Performed By: #### L 500.4050, L100.0100 ####[facility] [address] [place], [address] ALK PHOS 106 U/L High 35-104 [facility] Comment on above: Performed By: #### L 500.4050, L100.0100 ####[facility] [address] [place], [address] ALT [Catalytic activity/Vol] 11 U/L Normal <=34 [facility] Comment on above: Performed By: #### L 500.4050, L100.0100 ####[facility] [address] [place], [address] AST [Catalytic activity/Vol] 16 U/L Normal <=31 [facility] Comment on above: Performed By: #### L 500.4050, L100.0100 ####[facility] [address] [place], [address] Bilirubin [Mass/Vol] 0.44 mg/dL Normal 0.00-1.30 [facility] Comment on above: Performed By: #### L 500.4050, L100.0100 ####[facility] [address] [place], [address] BUN/CRE 22.0 RATIO High 10-20 [facility] Comment on above: Performed By: #### L 500.4050, L100.0100 ####[facility] [address] [place], [address] Calcium [Mass/Vol] 9.6 mg/dL Normal 7.6-11.0 [facility] Comment on above: Performed By: #### L 500.4050, L100.0100 ####[facility] [address] [place], [address] Chloride [Moles/Vol] 103 mmol/L Normal 98-108 [facility] Comment on above: Performed By: #### L 500.4050, L100.0100 ####[facility] [address] [place], [address] CO2 [Moles/Vol] 21.2 mmol/L Normal 21.0-32.0 [facility] Comment on above: Performed By: #### L 500.4050, L100.0100 ####[facility] [address] [place], [address] Creatinine [Mass/Vol] 0.75 mg/dL Normal 0.70-1.20 [facility] Comment on above: Performed By: #### L 500.4050, L100.0100 ####[facility] [address] [place], [address] GAP 15 Normal 5-15 [facility] Comment on above: Performed By: #### L 500.4050, L100.0100 ####[facility] [address] [place], [address] GFR/1.73 sq M.predicted among non-blacks MDRD (S/P/Bld) [Vol rate/Area] 91 mL/min/{1.73_m2} Normal >60 [facility] Comment on above: Result Comment: mL/m in/1.73m2 CKD-EPI Creatinine Equation (2020) Performed By: #### L 500.4050, L100.0100 ####[facility] [address] [place], [address] Globulin (S) [Mass/Vol] 3.8 g/dL Normal 2.2-4.2 [facility] Comment on above: Performed By: #### L 500.4050, L100.0100 ####[facility] [address] [place], [address] Glucose [Mass/Vol] 216 mg/dL High 70-99 [facility] Comment on above: Performed By: #### L 500.4050, L100.0100 ####[facility] [address] [place], [address] Potassium [Moles/Vol] 3.4 mmol/L Normal 3.3-5.1 [facility] Comment on above: Performed By: #### L 500.4050, L100.0100 ####[facility] [address] [place], [address] Sodium [Moles/Vol] 139 mmol/L Normal 133-145 [facility] Comment on above: Performed By: #### L 500.4050, L100.0100 ####[facility] [address] [place], [address] T PROT 7.9 g/dL Normal 5.9-8.4 [facility] Comment on above: Performed By: #### L 500.4050, L100.0100 ####[facility] [address] [place], [address] Urea nitrogen [Mass/Vol] 17 mg/dL Normal 4-19 [facility] Comment on above: Performed By: #### L 500.4050, L100.0100 ####[facility] [address] [place], [address] Eosinophil percentageOrdered By: Diana Ramos on 11-21-2024 Eosinophils/100 WBC (Bld) 1.8 % 0-5 [facility] Erythrocyte distribution wid th ratioOrdered By: Diana Ramos on 11-21-2024 Erythrocyte distribution width (RBC) [Ratio] 14.6 % 11.6-14.6 [facility] Erythrocyte distribution wid th standard deviationOrdered By: Diana Ramos on 11-21-2024 Erythrocyte distribution width (RBC) [Ratio] 46.7 fl High 35.1-43.9 [facility] Glomerular filtration rate ( GFR) estimation/1.73 sq m using serum, plasma, or whole bOrdered By: Diana Ramos on 11-21-2024 GFR/1.73 sq M.predicted among non-blacks MDRD (S/P/Bld) [Vol rate/Area] 91 mL/min/{1.73_m2} >60 [facility] Comment on above: mL/min/1.73m2 CKD-EP I Creatinine Equation (2020) Hematocrit Auto (Bld) [Volum e fraction]Ordered By: Diana Ramos on 11-21-2024 Hematocrit (Bld) [Volume fraction] 44.0 % 37-47 [facility] Hemoglobin measurementOrdere d By: Diana Ramos on 11-21-2024 Hemoglobin (Bld) [Mass/Vol] 14.0 g/dL 12.0-15.0 [facility] Immature granulocytes/100 WB C Auto (Bld)Ordered By: Diana Ramos on 11-21-2024 Immature granulocytes/100 WBC (Bld) 0.500 % 0.0-0.9 [facility] Comment on above: IG% - Immature Granu locytes (promyelocytes, myelocytes and metamyelocytes) > 1% indicates that a LEFT SHIFT is Present. Laboratory - Chemistry and C hemistry - challengeOrdered By: Diana Ramos on 11-21-2024 AST [Catalytic activity/Vol] 16 U/L <32 [facility] MCV (mean corpuscular volume ) determinationOrdered By: Diana Ramos 11-21-2024 MCV (RBC) [Entitic vol] 88.2 fL 81-99 [facility] Mean corpuscular hemoglobin (MCH) determinationOrdered By: Diana Ramos on 11-21-2024 MCH (RBC) [Entitic mass] 28.1 pg 27.0-32.0 [facility] Mean corpuscular hemoglobin concentration (MCHC) determinationOrdered By: Diana Ramos on 11-21-2024 MCHC (RBC) [Mass/Vol] 31.8 g/dL Low 32-36 [facility] Mean platelet volume determi nationOrdered By: Diana Ramos on 11-21-2024 Platelet mean volume (Bld) [Entitic vol] 10.0 fL 6.2-12.0 [facility] Monocyte percentageOrdered B y: Diana Ramos on 11-21-2024 Monocytes/100 WBC (Bld) 6.6 % 0-10 [facility] Neutrophil percentageOrdered By: Diana Ramos on 11-21-2024 Neutrophils/100 WBC (Bld) 69.2 % 47-70 [facility] Nucleated red blood cell per centageOrdered By: Diana Ramos on 11-21-2024 Nucleated RBC/100 WBC (Bld) [Ratio] 0 % 0-5 [facility] Platelet countOrdered By: Sanaz Ramos on 11-21-2024 Platelets (Bld) [#/Vol] 231 10*3/uL 150-450 [facility] Potassium measurement (mass/ volume)Ordered By: Diana Ramos on 11-21-2024 Potassium (Unsp spec) [Mass/Vol] 3.4 mmol/L 3.3-5.1 [facility] RBC Auto (Bld) [#/Vol]Ordere d By: Diana Ramos on 11-21-2024 RBC (Bld) [#/Vol] 4.99 10*6/uL 4.2-5.4 [facility] Serum creatinine measurement (mass/volume)Ordered By: Diana Ramos on 11-21-2024 Creatinine [Mass/Vol] 0.75 mg/dL 0.70-1.20 [facility] Serum globulin measurementOr dered By: Diana Ramos on 11-21-2024 Globulin (S) [Mass/Vol] 3.8 g/dL 2.2-4.2 [facility] Serum glucose measurement (m ass/volume)Ordered By: Diana Ramos on 11-21-2024 Glucose [Mass/Vol] 216 mg/dL High 70-99 [facility] Serum or plasma alanine smith otransferase (ALT) measurementOrdered By: Diana Ramos on 11-21-2024 ALT [Catalytic activity/Vol] 11 U/L <35 [facility] Serum or plasma albumin jasiel urement (mass/volume)Ordered By: Diana Ramos on 11-21-2024 Albumin [Mass/Vol] 4.1 g/dL 3.4-4.8 [facility] Serum or plasma albumin/glob ulin mass ratioOrdered By: Diana Ramos on 11-21-2024 Albumin/Globulin [Mass ratio] 1.1 {ratio} 0.9-2.4 [facility] Serum or plasma alkaline quintin sphatase measurementOrdered By: Diana Ramos on 11-21-2024 ALP [Catalytic activity/Vol] 106 U/L High 35-104 [facility] Serum or plasma calcium jasiel urement (mass/volume)Ordered By: Diana Ramos on 11-21-2024 Calcium [Mass/Vol] 9.6 mg/dL 7.6-11.0 [facility] Serum or plasma urea nitroge n measurement (mass/volume)Ordered By: Diana Ramos on 11-21-2024 Urea nitrogen [Mass/Vol] 17 mg/dL 4-19 [facility] Sodium levelOrdered By: Alexia Ramos on 11-21-2024 Sodium [Moles/Vol] 139 mmol/L 133-145 [facility] Total proteinOrdered By: Katarina Ramos on 11-21-2024 Protein [Mass/Vol] 7.9 g/dL 5.9-8.4 [facility] White blood cell (WBC) count Ordered By: Diana Ramos on 11-21-2024 WBC (Bld) [#/Vol] 8.2 10*3/uL 4.4-11.0 [facility] Anion gap in Serum or Plasma Ordered By: Leobardo Soto on 10-23-2024 Anion gap [Moles/Vol] 10 mmol/L 5- [facility] BUN/creatinine ratioOrdered By: Leobardo Soto on 10-23-2024 Urea nitrogen/Creatinine [Mass ratio] 57.9 mg/mg High 04-16 [facility] Basic Metabolic Profile (BMP )on 10-23-2024 BUN/CRE 57.9 RATIO High 04-16 [facility] Comment on above: Performed By: #### L 100.0500, L500.2500 ####[facility] [address] [place], [place], [address] Calcium [Mass/Vol] 9.0 mg/dL Normal 7.6-11.0 [facility] Comment on above: Performed By: #### L 100.0500, L500.2500 ####[facility] [address] [place], [address] Chloride [Moles/Vol] 99 mmol/L Normal 98-108 [facility] Comment on above: Performed By: #### L 100.0500, L500.2500 ####[facility] [address] [place], [address] CO2 [Moles/Vol] 32.1 mmol/L High 21.0-32.0 [facility] Comment on above: Performed By: #### L 100.0500, L500.2500 ####[facility] [address] [place], [address] Creatinine [Mass/Vol] 0.53 mg/dL Low 0.70-1.20 [facility] Comment on above: Performed By: #### L 100.0500, L500.2500 ####[facility] [address] [place], [address] ECRCL 122.16 ml/min Normal 50-250 [facility] Comment on above: Performed By: #### L 100.0500, L500.2500 ####[facility] [address] [place], [address] GAP 10 Normal 5-15 [facility] Comment on above: Performed By: #### L 100.0500, L500.2500 ####[facility] [address] [place], [address] GFR/1.73 sq M.predicted among non-blacks MDRD (S/P/Bld) [Vol rate/Area] 105 mL/min/{1.73_m2} Normal >60 [facility] Comment on above: Result Comment: mL/m in/1.73m2 CKD-EPI Creatinine Equation (2020) Performed By: #### L 100.0500, L500.2500 ####[facility] [address] [place], [address] Glucose [Mass/Vol] 173 mg/dL High 70-99 [facility] Comment on above: Performed By: #### L 100.0500, L500.2500 ####[facility] [address] [place], [address] Potassium [Moles/Vol] 3.2 mmol/L Low 3.3-5.1 [facility] Comment on above: Performed By: #### L 100.0500, L500.2500 ####[facility] [address] [place], [address] Sodium [Moles/Vol] 141 mmol/L Normal 133-145 [facility] Comment on above: Performed By: #### L 100.0500, L500.2500 ####[facility] [address] [place], [address] Urea nitrogen [Mass/Vol] 31 mg/dL High 4-19 [facility] Comment on above: Performed By: #### L 100.0500, L500.2500 ####[facility] [address] [place], [address] Bedside Glucoseon 10-23-2024 FINGERSTICK GLU 191 mg/dL High 74-106 [facility] Comment on above: Result Comment: SARA GEMENT OF PATIENT CARE PER NURSING PROTOCOL Performed By: #### L 501.080 ####[facility] [address] [place], [address] FINGERSTICK GLU 185 mg/dL High 74-106 [facility] Comment on above: Result Comment: SARA GEMENT OF PATIENT CARE PER NURSING PROTOCOL Performed By: #### L 501.080 ####[facility] [address] [place], [address] CBC-Complete Blood Cnt No Di ffon 10-23-2024 Erythrocyte distribution width (RBC) [Ratio] 14.3 % Normal 11.6-14.6 [facility] Comment on above: Performed By: #### L 100.0500, L500.2500 ####[facility] [address] [place], [address] Hematocrit (Bld) [Volume fraction] 38.6 % Normal 37-47 [facility] Comment on above: Performed By: #### L 100.0500, L500.2500 ####[facility] [address] [place], [address] Hemoglobin (Bld) [Mass/Vol] 12.4 g/dL Normal 12.0-15.0 [facility] Comment on above: Performed By: #### L 100.0500, L500.2500 ####[facility] [address] [place], [address] MCH (RBC) [Entitic mass] 28.4 pg Normal 27.0-32.0 [facility] Comment on above: Performed By: #### L 100.0500, L500.2500 ####[facility] [address] [place], [address] MCHC (RBC) [Mass/Vol] 32.1 g/dL Normal 32-36 [facility] Comment on above: Performed By: #### L 100.0500, L500.2500 ####[facility] [address] [place], [address] MCV (RBC) [Entitic vol] 88.5 fL Normal 81-99 [facility] Comment on above: Performed By: #### L 100.0500, L500.2500 ####[facility] [address] [place], [address] Platelet mean volume (Bld) [Entitic vol] 9.5 fL Normal 6.2-12.0 [facility] Comment on above: Performed By: #### L 100.0500, L500.2500 ####[facility] [address] [place], [address] Platelets (Bld) [#/Vol] 241 10*3/uL Normal 150-450 [facility] Comment on above: Performed By: #### L 100.0500, L500.2500 ####[facility] [address] [place], [address] RBC (Bld) [#/Vol] 4.36 10*6/uL Normal 4.2-5.4 [facility] Comment on above: Performed By: #### L 100.0500, L500.2500 ####[facility] [address] [place], [address] RDW SD 46.2 fl High 35.1-43.9 [facility] Comment on above: Performed By: #### L 100.0500, L500.2500 ####[facility] [address] [place], [address] WBC (Bld) [#/Vol] 8.2 10*3/uL Normal 4.4-11.0 [facility] Comment on above: Performed By: #### L 100.0500, L500.2500 ####[facility] [address] [place], [address] Carbon dioxide, total [Moles /volume] in Central venous bloodOrdered By: Leobardo Soto on 10-23-2024 CO2 [Moles/Vol] 32.1 mmol/L High 21.0-32.0 [facility] Chloride assayOrdered By: Ezequiel Soto on 10-23-2024 Chloride [Moles/Vol] 99 mmol/L 98-108 [facility] Discharge Instructionon 09-27 Discharge Instruction Normal [facility] Erythrocyte distribution wid th ratioOrdered By: Leobardo Soto on 10-23-2024 Erythrocyte distribution width (RBC) [Ratio] 14.3 % 11.6-14.6 [facility] Erythrocyte distribution wid th standard deviationOrdered By: Leobardo Soto on 10-23-2024 Erythrocyte distribution width (RBC) [Ratio] 46.2 fl High 35.1-43.9 [facility] Glomerular filtration rate ( GFR) estimation/1.73 sq m using serum, plasma, or whole bOrdered By: Leobardo Soto on 10-23-2024 GFR/1.73 sq M.predicted among non-blacks MDRD (S/P/Bld) [Vol rate/Area] 105 mL/min/{1.73_m2} >60 [facility] Comment on above: mL/min/1.73m2 CKD-EP I Creatinine Equation (2020) [facility] deOrdered By: Leobardo Soto on 10-23-2024 Glucose [Mass/Vol] 191 mg/dL High 74-106 [facility] Comment on above: MANAGEMENT OF PATIEN T CARE PER NURSING PROTOCOL Hematocrit Auto (Bld) [Volum e fraction]Ordered By: Leobardo Soto on 10-23-2024 Hematocrit (Bld) [Volume fraction] 38.6 % 37-47 [facility] Hemoglobin measurementOrdere d By: Leobardo Soto on 10-23-2024 Hemoglobin (Bld) [Mass/Vol] 12.4 g/dL 12.0-15.0 [facility] MCV (mean corpuscular volume ) determinationOrdered By: Leobardo Soto on 10-23-2024 MCV (RBC) [Entitic vol] 88.5 fL 81-99 [facility] Mean corpuscular hemoglobin (MCH) determinationOrdered By: Leobardo Soto on 10-23-2024 MCH (RBC) [Entitic mass] 28.4 pg 27.0-32.0 [facility] Mean corpuscular hemoglobin concentration (MCHC) determinationOrdered By: Leobardo Soto on 10-23-2024 MCHC (RBC) [Mass/Vol] 32.1 g/dL 32-36 [facility] Mean platelet volume determi nationOrdered By: Leobardo Soto on 10-23-2024 Platelet mean volume (Bld) [Entitic vol] 9.5 fL 6.2-12.0 [facility] Platelet countOrdered By: Ezequiel Soto on 10-23-2024 Platelets (Bld) [#/Vol] 241 10*3/uL 150-450 [facility] Potassium measurement (mass/ volume)Ordered By: Leobardo Soto on 10-23-2024 Potassium (Unsp spec) [Mass/Vol] 3.2 mmol/L Low 3.3-5.1 [facility] RBC Auto (Bld) [#/Vol]Ordere d By: Leobardo Soto on 10-23-2024 RBC (Bld) [#/Vol] 4.36 10*6/uL 4.2-5.4 [facility] Serum creatinine measurement (mass/volume)Ordered By: Leobardo Soto on 10-23-2024 Creatinine [Mass/Vol] 0.53 mg/dL Low 0.70-1.20 [facility] Serum glucose measurement (m ass/volume)Ordered By: Leobardo Soto on 10-23-2024 Glucose [Mass/Vol] 173 mg/dL High 70-99 [facility] Serum or plasma calcium jasiel urement (mass/volume)Ordered By: Leobardo Soto on 10-23-2024 Calcium [Mass/Vol] 9.0 mg/dL 7.6-11.0 [facility] Serum or plasma urea nitroge n measurement (mass/volume)Ordered By: Leobardo Soto on 10-23-2024 Urea nitrogen [Mass/Vol] 31 mg/dL High 4-19 [facility] Sodium levelOrdered By: [place] Soto on 10-23-2024 Sodium [Moles/Vol] 141 mmol/L 133-145 [facility] White blood cell (WBC) count Ordered By: Leobardo Soto on 10-23-2024 WBC (Bld) [#/Vol] 8.2 10*3/uL 4.4-11.0 [facility] Bedside Glucoseon 10-22-2024 FINGERSTICK GLU 213 mg/dL High 74-106 [facility] Comment on above: Result Comment: SARA HURTADO OF PATIENT CARE PER NURSING PROTOCOL Performed By: #### L 501.080 ####[facility] [address] [place], [address] FINGERSTICK GLU 256 mg/dL High 74-106 [facility] Comment on above: Result Comment: SARA GEMENT OF PATIENT CARE PER NURSING PROTOCOL Performed By: #### L 501.080 ####[facility] [address] [place], [address] FINGERSTICK GLU 255 mg/dL High 74-106 [facility] Comment on above: Result Comment: SARA GEMENT OF PATIENT CARE PER NURSING PROTOCOL Performed By: #### L 501.080 ####[facility] [address] [place], [address] FINGERSTICK GLU 213 mg/dL High 74-106 [facility] Comment on above: Result Comment: SARA GEMENT OF PATIENT CARE PER NURSING PROTOCOL Performed By: #### L 501.080 ####[facility] [address] [place], [address] Assessment of wrist artery p atency prior to arterial punctureOrdered By: Sy Gr on 10-21-2024 Arterial patency Wrist artery --pre arterial puncture Positive [facility] Bedside Glucoseon 10-21-2024 FINGERSTICK GLU 288 mg/dL High 74-106 [facility] Comment on above: Result Comment: SARA GEMENT OF PATIENT CARE PER NURSING PROTOCOL Performed By: #### L 501.080 ####[facility] [address] [place], [address] FINGERSTICK GLU 306 mg/dL High 74-106 [facility] Comment on above: Result Comment: SARA GEMENT OF PATIENT CARE PER NURSING PROTOCOL Performed By: #### L 501.080 ####[facility] [address] [place], [address] FINGERSTICK GLU 355 mg/dL High 74-106 [facility] Comment on above: Result Comment: SARA GEMENT OF PATIENT CARE PER NURSING PROTOCOL Performed By: #### L 501.080 ####[facility] [address] [place], [address] FINGERSTICK GLU 151 mg/dL High -106 [facility] Comment on above: Result Comment: SARA HURTADO OF PATIENT CARE PER NURSING PROTOCOL Performed By: #### L 501.080 ####[facility] [address] [place], [address] [facility] Base excess Calc (Bld) [Moles/Vol] -6 mmol/L Low -2 to +2 [facility] Comment on above: Performed By: #### L 9000.0800 ####[facility] [address] [place], [address] Blood Gas Type ART Normal [facility] Comment on above: Performed By: #### L 9000.0800 ####[facility] [address] [place], [address] CO2 [Moles/Vol] 22 mmol/L Normal [facility] Comment on above: Performed By: #### L 9000.0800 ####[facility] [address] [place], [address] Comment 06/04 Normal [facility] Comment on above: Performed By: #### L 9000.0800 ####[facility] [address] [place], [address] FI02 40.0 Normal [facility] Comment on above: Performed By: #### L 9000.0800 ####[facility] [address] [place], [address] HCO3 (Bld) [Moles/Vol] 21.1 mmol/L Low 22-[address] [facility] Comment on above: Performed By: #### L 9000.0800 ####[facility] [address] [place], [address] Mode AC Normal [facility] Comment on above: Performed By: #### L 9000.0800 ####[facility] [address] [place], [address] O2 Delivery Dev BiPAP Normal [facility] Comment on above: Performed By: #### L 9000.0800 ####[facility] [address] [place], [address] pCO2 43.8 mmHg Normal 35-45 [facility] Comment on above: Performed By: #### L 9000.0800 ####[facility] [address] [place], [address] pH (Bld) 7.29 [pH] Low 7.35-7.45 [facility] Comment on above: Performed By: #### L 9000.0800 ####[facility] [address] [place], [address] PO2 74 mmHG Low 75-100 [facility] Comment on above: Performed By: #### L 9000.0800 ####[facility] [address] [place], [address] RR 14 Normal [facility] Comment on above: Performed By: #### L 9000.0800 ####[facility] [address] [place], [address] SITE L Brach Normal [facility] Comment on above: Performed By: #### L 9000.0800 ####[facility] [address] [place], [address] SO2 93 Low 95-99 [facility] Comment on above: Performed By: #### L 9000.0800 ####[facility] [address] [place], [address] IVANA TEST Positive Normal [facility] Comment on above: Performed By: #### L 9000.0800 ####[facility] [address] [place], [address] Base excess Calc (Bld) [Moles/Vol] -5 mmol/L Low -2 to +2 [facility] Comment on above: Performed By: #### L 9000.0800 ####[facility] [address] [place], [address] Blood Gas Type ART Normal [facility] Comment on above: Performed By: #### L 9000.0800 ####[facility] [address] [place], [address] CO2 [Moles/Vol] 23 mmol/L Normal [facility] Comment on above: Performed By: #### L 9000.0800 ####[facility] [address] [place], [address] FI02 8.0 Normal [facility] Comment on above: Performed By: #### L 9000.0800 ####[facility] [address] [place], [address] HCO3 (Bld) [Moles/Vol] 21.5 mmol/L Low 22-[address] [facility] Comment on above: Performed By: #### L 9000.0800 ####[facility] [address] [place], [address] Mode Not entered Normal [facility] Comment on above: Performed By: #### L 9000.0800 ####[facility] [address] [place], [address] O2 Delivery Dev Cannula Normal [facility] Comment on above: Performed By: #### L 9000.0800 ####[facility] [address] [place], [address] pCO2 46.8 mmHg High 35-45 [facility] Comment on above: Performed By: #### L 9000.0800 ####[facility] [address] [place], [address] pH (Bld) 7.27 [pH] Low 7.35-7.45 [facility] Comment on above: Performed By: #### L 9000.0800 ####[facility] [address] [place], [address] PO2 65 mmHG Low 75-100 [facility] Comment on above: Performed By: #### L 9000.0800 ####[facility] [address] [place], [address] SITE R Radial Normal [facility] Comment on above: Performed By: #### L 9000.0800 ####[facility] [address] [place], [address] SO2 89 Low 95-99 [facility] Comment on above: Performed By: #### L 9000.0800 ####[facility] [address] [place], [address] Blood base excess determinat ionOrdered By: Sy Gr on 10-21-2024 Base excess Calc (BldV) [Moles/Vol] -6 mmol/L Low -2-2 [facility] Blood bicarbonate measuremen tOrdered By: Sy Gr on 10-21-2024 HCO3 (Bld) [Moles/Vol] 21.1 mmol/L Low 22-[address] [facility] CO2 (BldV) [Moles/Vol]Ordere d By: Sy Gr on 10-21-2024 CO2 [Moles/Vol] 21 mmol/L Low 23-33 [facility] Chest 1 View (Portable)on Chest 1 View (Portable) Normal [facility] L503.7505on 10-21-2024 Natriuretic peptide B (Bld) [Mass/Vol] 527 pg/mL Normal <=900 [facility] Comment on above: Result Comment: Hear t Failure Unlikely: < 300 pg/mLHeart Failure Likely< 50 Years: > 450 pg/mL50-75 Years: > 900 pg/mL>75 Years: > 1800 pg/mL Performed By: #### L 503.9723 ####[facility] [address] [place], [address] Measurement, pHOrdered By: Nathaniel Gr on 10-21-2024 pH (Unsp spec) 7.29 [pH] Low 7.35-7.45 [facility] Natriuretic peptide.B prohor jesi N-Terminal [Mass/volume] in Serum or PlasmaOrdered By: Bharathi Saldana on 10-21-2024 Natriuretic peptide.B prohormone N-Terminal [Mass/Vol] 527 pg/mL <900 [facility] Comment on above: Heart Failure Unlike ly: < 300 pg/mLHeart Failure Likely< 50 Years: > 450 pg/mL50-75 Years: > 900 pg/mL>75 Years: > 1800 pg/mL No Panel InformationOrdered By: Sy Gr on 10-21-2024 Blood Gas Clinical Comments 06/04 [facility] Blood Gas Respiration Rate 14 [facility] Blood Gas Sample Site L Brach [facility] Blood Gas Specimen Type ART [facility] Blood Gas Vent Mode AC [facility] Oxygen Delivery Device BiPAP [facility] Respiratory Cultureon 2024 RESPC Normal [facility] Comment on above: Performed By: #### M 100.2400, M100.2000 ####[facility] [address] [place], [address] Total carbon dioxide measure mentOrdered By: Sy Gr on 10-21-2024 CO2 [Moles/Vol] 22 mmol/L [facility] Venous Blood Gason Blood Gas Type NAEEM Normal [facility] Comment on above: Performed By: #### L 9000.0810 ####[facility] [address] [place], [address] CO2 [Moles/Vol] 21 mmol/L Low 23-33 [facility] Comment on above: Performed By: #### L 9000.0810 ####[facility] [address] [place], [address] HCO3 (Bld) [Moles/Vol] 20 mmol/L Low 22-26 [facility] Comment on above: Performed By: #### L 9000.0810 ####[facility] [address] [place], [address] O2 Delivery Dev Not entered Normal [facility] Comment on above: Performed By: #### L 900.0810 ####[facility] [address] [place], [address] SITE Not entered Normal [facility] Comment on above: Performed By: #### L 9000.0810 ####[facility] [address] [place], [address] VBG BE -7 mmol/L Low -1.0-3.5 [facility] Comment on above: Performed By: #### L 900.0810 ####[facility] [address] [place], [address] VBG pCO2 42.9 mmHg Normal 41-51 [facility] Comment on above: Performed By: #### L 9000.0810 ####[facility] [address] [place], [address] VBG pH 7.28 Low 7.32-7.42 [facility] Comment on above: Performed By: #### L 9000.0810 ####[facility] [address] [place], [address] VBG PO2 71 mmHg High 25-40 [facility] Comment on above: Performed By: #### L 9000.0810 ####[facility] [address] [place], [address] VBG SO2 92 High 50-70 [facility] Comment on above: Performed By: #### L 9000.0810 ####[facility] [address] [place], [place], [address] Venous blood base excess giorgi surementOrdered By: Sy Gr on 10-21-2024 Base excess Calc (BldV) [Moles/Vol] -7 mmol/L Low -1.0-3.5 [facility] Venous blood bicarbonate giorgi surementOrdered By: Sy Gr on 10-21-2024 HCO3 (Bld) [Moles/Vol] 20 mmol/L Low 22-26 [facility] Venous blood oxygen saturati on measurementOrdered By: Sy Gr on 10-21-2024 Oxygen saturation in Blood 92 % High 50-70 [facility] Venous blood pH measurementO rdered By: Sy Gr on 10-21-2024 pH (BldV) 7.28 [pH] Low 7.32-7.42 [facility] Venous blood partial pressur e of carbon dioxide measurementOrdered By: Sy Gr on 10-21-2024 CO2 (BldV) [Partial pressure] 42.9 mm[Hg] 41-51 [facility] Venous blood partial pressur e of oxygen measurementOrdered By: Sy Gr on 10-21-2024 Oxygen (BldV) [Partial pressure] 71 mm[Hg] High 25-40 [facility] Absolute lymphocyte countOrd ered By: Bharathi Saldana on 10-20-2024 Lymphocytes Auto (Unsp spec) [#/Vol] 0.90 10*3/uL 0.83-4.51 [facility] Absolute neutrophil countOrd ered By: Bharathi Saldana on 10-20-2024 Neutrophils (Bld) [#/Vol] 9.4 10*3/uL High 2.0-7.7 [facility] Automated lymphocyte count a s percentage of total leukocytesOrdered By: Bharathi Saldana on 10-20-2024 Lymphocytes/100 WBC Auto (Unsp spec) 7.8 % Low 19-41 [facility] Basic Metabolic Profile (BMP )on 10-20-2024 BUN/CRE 44.4 RATIO High 10-20 [facility] Comment on above: Performed By: #### L 100.0100, L500.2500 ####[facility] [address] [place], [address] Calcium [Mass/Vol] 8.7 mg/dL Normal 7.6-11.0 [facility] Comment on above: Performed By: #### L 100.0100, L500.2500 ####[facility] [address] [place], [address] Chloride [Moles/Vol] 103 mmol/L Normal 98-108 [facility] Comment on above: Performed By: #### L 100.0100, L500.2500 ####[facility] [address] [place], [address] CO2 [Moles/Vol] 17.1 mmol/L Low 21.0-32.0 [facility] Comment on above: Performed By: #### L 100.0100, L500.2500 ####[facility] [address] [place], [address] Creatinine [Mass/Vol] 0.57 mg/dL Low 0.70-1.20 [facility] Comment on above: Performed By: #### L 100.0100, L500.2500 ####[facility] [address] [place], [address] ECRCL 113.59 ml/min Normal 50-250 [facility] Comment on above: Performed By: #### L 100.0100, L500.2500 ####[facility] [address] [place], [address] GAP 17 High 5-15 [facility] Comment on above: Performed By: #### L 100.0100, L500.2500 ####[facility] [address] [place], [address] GFR/1.73 sq M.predicted among non-blacks MDRD (S/P/Bld) [Vol rate/Area] 103 mL/min/{1.73_m2} Normal >60 [facility] Comment on above: Result Comment: mL/m in/1.73m2 CKD-EPI Creatinine Equation (2020) Performed By: #### L 100.0100, L500.2500 ####[facility] [address] [place], [address] Glucose [Mass/Vol] 172 mg/dL High 70-99 [facility] Comment on above: Performed By: #### L 100.0100, L500.2500 ####[facility] [address] [place], [address] Potassium [Moles/Vol] 4.0 mmol/L Normal 3.3-5.1 [facility] Comment on above: Performed By: #### L 100.0100, L500.2500 ####[facility] [address] [place], [address] Sodium [Moles/Vol] 136 mmol/L Normal 133-145 [facility] Comment on above: Performed By: #### L 100.0100, L500.2500 ####[facility] [address] [place], [address] Urea nitrogen [Mass/Vol] 25 mg/dL High 4-19 [facility] Comment on above: Performed By: #### L 100.0100, L500.2500 ####[facility] [address] [place], [address] Basophil percentageOrdered B y: Bharathi Saldana on 10-20-2024 Basophils/100 WBC (Bld) 0.3 % 0-1 [facility] Comment on above: Performed By: #### L 100.0100, L500.2500 ####[facility] [address] [place], [address] Bedside Glucoseon 10-20-2024 FINGERSTICK GLU 165 mg/dL High 74-106 [facility] Comment on above: Result Comment: SARA HURTADO OF PATIENT CARE PER NURSING PROTOCOL Performed By: #### L 501.080 ####[facility] [address] [place], [address] FINGERSTICK GLU 147 mg/dL High 74-106 [facility] Comment on above: Result Comment: SARA GEMENT OF PATIENT CARE PER NURSING PROTOCOL Performed By: #### L 501.080 ####[facility] [address] [place], [address] FINGERSTICK GLU 182 mg/dL High 74-106 [facility] Comment on above: Result Comment: SARA GEMENT OF PATIENT CARE PER NURSING PROTOCOL Performed By: #### L 501.080 ####[facility] [address] [place], [address] FINGERSTICK GLU 163 mg/dL High 74-106 [facility] Comment on above: Result Comment: SARA GEMENT OF PATIENT CARE PER NURSING PROTOCOL Performed By: #### L 501.080 ####[facility] [address] [place], [address] CBC W/Diff, Automatedon 04-2 5-2024 Absolute Lymph 0.90 X10 3/uL Normal 0.83-4.51 [facility] Comment on above: Performed By: #### L 100.0100, L500.2500 ####[facility] [address] [place], [address] Absolute Neut 9.4 X10 3/uL High 2.0-7.7 [facility] Comment on above: Performed By: #### L 100.0100, L500.2500 ####[facility] [address] [place], [address] Erythrocyte distribution width (RBC) [Ratio] 14.2 % Normal 11.6-14.6 [facility] Comment on above: Performed By: #### L 100.0100, L500.2500 ####[facility] [address] [place], [address] Hematocrit (Bld) [Volume fraction] 38.8 % Normal 37-47 [facility] Comment on above: Performed By: #### L 100.0100, L500.2500 ####[facility] [address] [place], [address] Hemoglobin (Bld) [Mass/Vol] 12.1 g/dL Normal 12.0-15.0 [facility] Comment on above: Performed By: #### L 100.0100, L500.2500 ####[facility] [address] [place], [address] IG% 0.600 Normal 0.0-0.9 [facility] Comment on above: Result Comment: IG% - Immature Granulocytes (promyelocytes, myelocytes andmetamyelocytes) > 1% indicates that a LEFT SHIFT is Present. Performed By: #### L 100.0100, L500.2500 ####[facility] [address] [place], [address] Lymphocytes/100 WBC (Bld) 7.8 % Low 19-41 [facility] Comment on above: Performed By: #### L 100.0100, L500.2500 ####[facility] [address] [place], [address] MCH (RBC) [Entitic mass] 28.5 pg Normal 27.0-32.0 [facility] Comment on above: Performed By: #### L 100.0100, L500.2500 ####[facility] [address] [place], [address] MCHC (RBC) [Mass/Vol] 31.2 g/dL Low 32-36 [facility] Comment on above: Performed By: #### L 100.0100, L500.2500 ####[facility] [address] [place], [address] MCV (RBC) [Entitic vol] 91.3 fL Normal 81-99 [facility] Comment on above: Performed By: #### L 100.0100, L500.2500 ####[facility] [address] [place], [address] Nucleated RBC (Bld) [#/Vol] 0 10*3/uL Normal 0-5 [facility] Comment on above: Performed By: #### L 100.0100, L500.2500 ####[facility] [address] [place], [address] Platelet mean volume (Bld) [Entitic vol] 10.0 fL Normal 6.2-12.0 [facility] Comment on above: Performed By: #### L 100.0100, L500.2500 ####[facility] [address] [place], [address] Platelets (Bld) [#/Vol] 171 10*3/uL Normal 150-450 [facility] Comment on above: Performed By: #### L 100.0100, L500.2500 ####[facility] [address] [place], [address] RBC (Bld) [#/Vol] 4.25 10*6/uL Normal 4.2-5.4 [facility] Comment on above: Performed By: #### L 100.0100, L500.2500 ####[facility] [address] [place], [address] RDW SD 47.8 fl High 35.1-43.9 [facility] Comment on above: Performed By: #### L 100.0100, L500.2500 ####[facility] [address] [place], [address] WBC (Bld) [#/Vol] 11.5 10*3/uL High 4.4-11.0 [facility] Comment on above: Performed By: #### L 100.0100, L500.2500 ####[facility] [address] [place], [address] Eosinophil percentageOrdered By: Bharathi Saldana on 10-20-2024 Eosinophils/100 WBC (Bld) 0.9 % 0-5 [facility] Comment on above: Performed By: #### L 100.0100, L500.2500 ####[facility] [address] [place], [address] Gram Stainon 10-20-2024 GS List Antibiotics to be Started? none Acceptable Specimen? Yes (<25 Epithelial cells per/lpf) Gram Stain 4+ Gram negative cocco bacillus 4+ White Blood Cells 1+ Gram positive cocci No Epithelial cells Normal [facility] Comment on above: Performed By: #### M 100.2400, M100.2000 ####[facility] [address] [place], [address] Gram stainOrdered By: Sy brown on 10-20-2024 Microscopic observation Gram stain Nom (Unsp spec) [facility] Immature granulocytes/100 WB C Auto (Bld)Ordered By: Bharathi Saldana on 10-20-2024 Immature granulocytes/100 WBC (Bld) 0.600 % 0.0-0.9 [facility] Comment on above: IG% - Immature Granu locytes (promyelocytes, myelocytes and metamyelocytes) > 1% indicates that a LEFT SHIFT is Present. Microbial respiratory cultur eOrdered By: Sy Gr on 10-20-2024 Microorganism identified Cx Nom (Unsp spec) Haemophilus influenzae Abnormal [facility] Monocyte percentageOrdered B y: Bharathi Saldana on 10-20-2024 Monocytes/100 WBC (Bld) 8.6 % 0-10 [facility] Comment on above: Performed By: #### L 100.0100, L500.2500 ####[facility] [address] [place], [address] Neutrophil percentageOrdered By: Bharathi Saldana on 10-20-2024 Neutrophils/100 WBC (Bld) 81.8 % High 47-70 [facility] Comment on above: Performed By: #### L 100.0100, L500.2500 ####[facility] [address] [place], [address] Nucleated red blood cell per centageOrdered By: Bharathi Saldana on 10-20-2024 Nucleated RBC/100 WBC (Bld) [Ratio] 0 % 0-5 [facility] Activated partial thrombopla stin time (aPTT) in platelet poor plasma by coagulation aOrdered By: Sy Gr on 10-19-2024 aPTT Coag (PPP) [Time] 40.1 s High 24.1-36.2 [facility] Bedside Glucoseon 10-19-2024 FINGERSTICK GLU 157 mg/dL High 74-106 [facility] Comment on above: Result Comment: SARA HURTADO OF PATIENT CARE PER NURSING PROTOCOL Performed By: #### L 501.080 ####[facility] [address] [place], [address] Bilirubin, totalOrdered By: Bharathi Saldana on 10-19-2024 Bilirubin [Mass/Vol] 0.37 mg/dL 0.00-1.30 [facility] Blood Gases by CPSon 025 IVANA TEST Positive Normal [facility] Comment on above: Performed By: #### L 9000.0800 ####[facility] [address] [place], [address] Base excess Calc (Bld) [Moles/Vol] -3 mmol/L Low -2 to +2 [facility] Comment on above: Performed By: #### L 9000.0800 ####[facility] [address] [place], [address] Blood Gas Type ART Normal [facility] Comment on above: Performed By: #### L 9000.0800 ####[facility] [address] [place], [address] CO2 [Moles/Vol] 23 mmol/L Normal [facility] Comment on above: Performed By: #### L 9000.0800 ####[facility] [address] [place], [address] FI02 10.0 Normal [facility] Comment on above: Performed By: #### L 0.0800 ####[facility] [address] [place], [address] HCO3 (Bld) [Moles/Vol] 21.8 mmol/L Low 22-[address] [facility] Comment on above: Performed By: #### L 0.0800 ####[facility] [address] [place], [address] Mode Not entered Normal [facility] Comment on above: Performed By: #### L 0.0800 ####[facility] [address] [place], [address] O2 Delivery Dev Cannula Normal [facility] Comment on above: Performed By: #### L 0.0800 ####[facility] [address] [place], [address] pCO2 36.5 mmHg Normal 35-45 [facility] Comment on above: Performed By: #### L 9000.0800 ####[facility] [address] [place], [address] pH (Bld) 7.38 [pH] Normal 7.35-7.45 [facility] Comment on above: Performed By: #### L 0.0800 ####[facility] [address] [place], [address] PO2 150 mmHG High 75-100 [facility] Comment on above: Performed By: #### L 9000.0800 ####[facility] [address] [place], [address] SITE R Radial Normal [facility] Comment on above: Performed By: #### L 9000.0800 ####[facility] [address] [place], [address] SO2 99 Normal 95-99 [facility] Comment on above: Performed By: #### L 0.0800 ####[facility] [address] [place], [address] Base excess Calc (Bld) [Moles/Vol] -2 mmol/L Normal -2 to +2 [facility] Comment on above: Performed By: #### L 8999.0800 ####[facility] [address] [place], [address] Blood Gas Type ART Normal [facility] Comment on above: Performed By: #### L 0.08 ####[facility] [address] [place], [address] CO2 [Moles/Vol] 25 mmol/L Normal [facility] Comment on above: Performed By: #### L 8999.0800 ####[facility] [address] [place], [address] FI02 5.0 Normal [facility] Comment on above: Performed By: #### L 0.0800 ####[facility] [address] [place], [address] HCO3 (Bld) [Moles/Vol] 23.7 mmol/L Normal 22-[address] [facility] Comment on above: Performed By: #### L 0.0800 ####[facility] [address] [place], [address] Mode Not entered Normal [facility] Comment on above: Performed By: #### L 9000.0800 ####[facility] [address] [place], [address] O2 Delivery Dev Cannula Normal [facility] Comment on above: Performed By: #### L 0.0800 ####[facility] [address] [place], [address] pCO2 43.7 mmHg Normal 35-45 [facility] Comment on above: Performed By: #### L 9000.0800 ####[facility] [address] [place], [address] pH (Bld) 7.34 [pH] Low 7.35-7.45 [facility] Comment on above: Performed By: #### L 9000.0800 ####[facility] [address] [place], [address] PO2 57 mmHG Low 75-100 [facility] Comment on above: Performed By: #### L 9000.0800 ####[facility] [address] [place], [address] SITE L Brach Normal [facility] Comment on above: Performed By: #### L 0.0800 ####[facility] [address] [place], [address] SO2 87 Low 95-99 [facility] Comment on above: Performed By: #### L 9000.0800 ####[facility] [address] [place], [address] CBC W/Diff, Automatedon 04-2 Absolute Lymph 0.71 X10 3/uL Low 0.83-4.51 [facility] Comment on above: Performed By: #### L 501.5200, L501.9520, L501.2300, L100.0100, L500.4050 ####[facility] [address] [place], [address] Absolute Neut 10.6 X10 3/uL High 2.0-7.7 [facility] Comment on above: Performed By: #### L 501.5200, L501.9520, L501.2300, L100.0100, L500.4050 ####[facility] [address] [place], [address] Basophils/100 WBC (Bld) 0.5 % Normal 0-1 [facility] Comment on above: Performed By: #### L 501.5200, L501.9520, L501.2300, L100.0100, L500.4050 ####[facility] [address] [place], [address] Eosinophils/100 WBC (Bld) 0.8 % Normal 0-5 [facility] Comment on above: Performed By: #### L 501.5200, L501.9520, L501.2300, L100.0100, L500.4050 ####[facility] [address] [place], [address] Erythrocyte distribution width (RBC) [Ratio] 13.9 % Normal 11.6-14.6 [facility] Comment on above: Performed By: #### L 501.5200, L501.9520, L501.2300, L100.0100, L500.4050 ####[facility] [address] [place], [address] Hematocrit (Bld) [Volume fraction] 38.4 % Normal 37-47 [facility] Comment on above: Performed By: #### L 501.5200, L501.9520, L501.2300, L100.0100, L500.4050 ####[facility] [address] [place], [address] Hemoglobin (Bld) [Mass/Vol] 12.3 g/dL Normal 12.0-15.0 [facility] Comment on above: Performed By: #### L 501.5200, L501.9520, L501.2300, L100.0100, L500.4050 ####[facility] [address] [place], [address] IG% 0.500 Normal 0.0-0.9 [facility] Comment on above: Result Comment: IG% - Immature Granulocytes (promyelocytes, myelocytes andmetamyelocytes) > 1% indicates that a LEFT SHIFT is Present. Performed By: #### L 501.5200, L501.9520, L501.2300, L100.0100, L500.4050 ####[facility] [address] [place], [address] Lymphocytes/100 WBC (Bld) 5.7 % Low 19-41 [facility] Comment on above: Performed By: #### L 501.5200, L501.9520, L501.2300, L100.0100, L500.4050 ####[facility] [address] [place], [address] MCH (RBC) [Entitic mass] 28.5 pg Normal 27.0-32.0 [facility] Comment on above: Performed By: #### L 501.5200, L501.9520, L501.2300, L100.0100, L500.4050 ####[facility] [address] [place], [address] MCHC (RBC) [Mass/Vol] 32.0 g/dL Normal 32-36 [facility] Comment on above: Performed By: #### L 501.5200, L501.9520, L501.2300, L100.0100, L500.4050 ####[facility] [address] [place], [address] MCV (RBC) [Entitic vol] 89.1 fL Normal 81-99 [facility] Comment on above: Performed By: #### L 501.5200, L501.9520, L501.2300, L100.0100, L500.4050 ####[facility] [address] [place], [address] Monocytes/100 WBC (Bld) 7.4 % Normal 0-10 [facility] Comment on above: Performed By: #### L 501.5200, L501.9520, L501.2300, L100.0100, L500.4050 ####[facility] [address] [place], [address] Neutrophils/100 WBC (Bld) 85.1 % High 47-70 [facility] Comment on above: Performed By: #### L 501.5200, L501.9520, L501.2300, L100.0100, L500.4050 ####[facility] [address] [place], [address] Nucleated RBC (Bld) [#/Vol] 0 10*3/uL Normal 0-5 [facility] Comment on above: Performed By: #### L 501.5200, L501.9520, L501.2300, L100.0100, L500.4050 ####[facility] [address] [place], [address] Platelet mean volume (Bld) [Entitic vol] 9.8 fL Normal 6.2-12.0 [facility] Comment on above: Performed By: #### L 501.5200, L501.9520, L501.2300, L100.0100, L500.4050 ####[facility] [address] [place], [address] Platelets (Bld) [#/Vol] 159 10*3/uL Normal 150-450 [facility] Comment on above: Performed By: #### L 501.5200, L501.9520, L501.2300, L100.0100, L500.4050 ####[facility] [address] [place], [address] RBC (Bld) [#/Vol] 4.31 10*6/uL Normal 4.2-5.4 [facility] Comment on above: Performed By: #### L 501.5200, L501.9520, L501.2300, L100.0100, L500.4050 ####[facility] [address] [place], [address] RDW SD 45.5 fl High 35.1-43.9 [facility] Comment on above: Performed By: #### L 501.5200, L501.9520, L501.2300, L100.0100, L500.4050 ####[facility] [address] [place], [address] WBC (Bld) [#/Vol] 12.5 10*3/uL High 4.4-11.0 [facility] Comment on above: Performed By: #### L 501.5200, L501.9520, L501.2300, L100.0100, L500.4050 ####[facility] [address] [place], [address] Comprehensive Metabolic Prof tnon 10-19-2024 Albumin [Mass/Vol] 3.0 g/dL Low 3.4-4.8 [facility] Comment on above: Performed By: #### L 501.5200, L501.9520, L501.2300, L100.0100, L500.4050 ####[facility] [address] [place], [address] Albumin/Globulin [Mass ratio] 0.8 {ratio} Low 0.9-2.4 [facility] Comment on above: Performed By: #### L 501.5200, L501.9520, L501.2300, L100.0100, L500.4050 ####[facility] [address] [place], [address] ALK PHOS 77 U/L Normal 35-104 [facility] Comment on above: Performed By: #### L 501.5200, L501.9520, L501.2300, L100.0100, L500.4050 ####[facility] [address] [place], [address] ALT [Catalytic activity/Vol] 8 U/L Normal <=34 [facility] Comment on above: Performed By: #### L 501.5200, L501.9520, L501.2300, L100.0100, L500.4050 ####[facility] [address] [place], [address] AST [Catalytic activity/Vol] 11 U/L Normal <=31 [facility] Comment on above: Performed By: #### L 501.5200, L501.9520, L501.2300, L100.0100, L500.4050 ####[facility] [address] [place], [address] Bilirubin [Mass/Vol] 0.37 mg/dL Normal 0.00-1.30 [facility] Comment on above: Performed By: #### L 501.5200, L501.9520, L501.2300, L100.0100, L500.4050 ####[facility] [address] [place], [address] BUN/CRE 23.7 RATIO High 10-20 [facility] Comment on above: Performed By: #### L 501.5200, L501.9520, L501.2300, L100.0100, L500.4050 ####[facility] [address] [place], [address] Calcium [Mass/Vol] 8.6 mg/dL Normal 7.6-11.0 [facility] Comment on above: Performed By: #### L 501.5200, L501.9520, L501.2300, L100.0100, L500.4050 ####[facility] [address] [place], [address] Chloride [Moles/Vol] 105 mmol/L Normal 98-108 [facility] Comment on above: Performed By: #### L 501.5200, L501.9520, L501.2300, L100.0100, L500.4050 ####[facility] [address] [place], [address] CO2 [Moles/Vol] 20.6 mmol/L Low 21.0-32.0 [facility] Comment on above: Performed By: #### L 501.5200, L501.9520, L501.2300, L100.0100, L500.4050 ####[facility] [address] [place], [address] Creatinine [Mass/Vol] 0.65 mg/dL Low 0.70-1.20 [facility] Comment on above: Performed By: #### L 501.5200, L501.9520, L501.2300, L100.0100, L500.4050 ####[facility] [address] [place], [address] ECRCL 99.61 ml/min Normal 50-250 [facility] Comment on above: Performed By: #### L 501.5200, L501.9520, L501.2300, L100.0100, L500.4050 ####[facility] [address] [place], [address] GAP 13 Normal 5-15 [facility] Comment on above: Performed By: #### L 501.5200, L501.9520, L501.2300, L100.0100, L500.4050 ####[facility] [address] [place], [address] GFR/1.73 sq M.predicted among non-blacks MDRD (S/P/Bld) [Vol rate/Area] 100 mL/min/{1.73_m2} Normal >60 [facility] Comment on above: Result Comment: mL/m in/1.73m2 CKD-EPI Creatinine Equation (2020) Performed By: #### L 501.5200, L501.9520, L501.2300, L100.0100, L500.4050 ####[facility] [address] [place], [address] Globulin (S) [Mass/Vol] 3.8 g/dL Normal 2.2-4.2 [facility] Comment on above: Performed By: #### L 501.5200, L501.9520, L501.2300, L100.0100, L500.4050 ####[facility] [address] [place], [address] Glucose [Mass/Vol] 242 mg/dL High 70-99 [facility] Comment on above: Performed By: #### L 501.5200, L501.9520, L501.2300, L100.0100, L500.4050 ####[facility] [address] [place], [address] Potassium [Moles/Vol] 3.6 mmol/L Normal 3.3-5.1 [facility] Comment on above: Performed By: #### L 501.5200, L501.9520, L501.2300, L100.0100, L500.4050 ####[facility] [address] [place], [address] Sodium [Moles/Vol] 139 mmol/L Normal 133-145 [facility] Comment on above: Performed By: #### L 501.5200, L501.9520, L501.2300, L100.0100, L500.4050 ####[facility] [address] [place], [address] T PROT 6.8 g/dL Normal 5.9-8.4 [facility] Comment on above: Performed By: #### L 501.5200, L501.9520, L501.2300, L100.0100, L500.4050 ####[facility] [address] [place], [address] Urea nitrogen [Mass/Vol] 15 mg/dL Normal 4-19 [facility] Comment on above: Performed By: #### L 501.5200, L501.9520, L501.2300, L100.0100, L500.4050 ####[facility] [address] [place], [address] Consultation - Surgicalon Consultation - Surgical Normal [facility] Echo Complete W/ Contraston 10-19-2024 Echo Complete W/ Contrast Normal [facility] Free T3on 10-19-2024 Free T3 [Mass/Vol] 1.9 pg/mL Low 2.18-3.98 [facility] Comment on above: Performed By: #### L 506.0400, L501.80101 ####[facility] [address] [place], [address] Free Q2Pljlrzp By: Bharathi jeffries on 10-19-2024 Free T3 [Mass/Vol] 1.9 pg/mL Low 2.18-3.98 [facility] L503.7505on 10-19-2024 Natriuretic peptide B (Bld) [Mass/Vol] 317 pg/mL Normal <=900 [facility] Comment on above: Result Comment: Hear t Failure Unlikely: < 300 pg/mLHeart Failure Likely< 50 Years: > 450 pg/mL50-75 Years: > 900 pg/mL>75 Years: > 1800 pg/mL Performed By: #### L 503.7505 ####[facility] [address] [place], [address] Laboratory - Chemistry and C hemistry - challengeOrdered By: Bharathi Saldana on 10-19-2024 AST [Catalytic activity/Vol] 11 U/L <32 [facility] Magnesiumon 10-19-2024 Magnesium [Mass/Vol] 1.7 mg/dL Normal 1.5-2.2 [facility] Comment on above: Performed By: #### L 501.5200, L501.9520, L501.2300, L100.0100, L500.4050 ####[facility] [address] [place], [address] Magnesium measurement (mass/ volume)Ordered By: Bharathi Saldana on 10-19-2024 Magnesium (Unsp spec) [Mass/Vol] 1.7 mg/dL 1.5-2.2 [facility] Partial Thromboplast Timeon 10-19-2024 aPTT Coag (Bld) [Time] 40.1 s High 24.1-36.2 [facility] Comment on above: Order Comment: Comme nts: heparin drip Performed By: #### L 300.4310 ####[facility] [address] [place], [address] aPTT Coag (Bld) [Time] 45.2 s High 24.1-36.2 [facility] Comment on above: Performed By: #### L 300.4310 ####[facility] [address] [place], [address] aPTT Coag (Bld) [Time] 40.2 s High 24.1-36.2 [facility] Comment on above: Performed By: #### L 300.4310 ####[facility] [address] [place], [address] Phosphoruson 10-19-2024 Phosphate [Mass/Vol] 3.2 mg/dL Normal 2.7-4.5 [facility] Comment on above: Performed By: #### L 501.5200, L501.9520, L501.2300, L100.0100, L500.4050 ####[facility] [address] [place], [place], [id number] Serum globulin measurementOr dered By: Bharathi Saldana on 10-19-2024 Globulin (S) [Mass/Vol] 3.8 g/dL 2.2-4.2 [facility] Serum or plasma alanine smith otransferase (ALT) measurementOrdered By: Bharathi Saldana on 10-19-2024 ALT [Catalytic activity/Vol] 8 U/L <35 [facility] Serum or plasma albumin jasiel urement (mass/volume)Ordered By: Bharathi Saldana on 10-19-2024 Albumin [Mass/Vol] 3.0 g/dL Low 3.4-4.8 [facility] Serum or plasma albumin/glob ulin mass ratioOrdered By: Bharathi Saldana on 10-19-2024 Albumin/Globulin [Mass ratio] 0.8 {ratio} Low 0.9-2.4 [facility] Serum or plasma alkaline quintin sphatase measurementOrdered By: Bharathi Saldana on 10-19-2024 ALP [Catalytic activity/Vol] 77 U/L 35-104 [facility] T4 Free Directon 10-19-2024 T4 FREE DIRECT 1.50 ng/dL High 0.76-1.46 [facility] Comment on above: Performed By: #### L 506.0400, L501.80454 ####[facility] [address] [place], [place], [id number] T4 freeOrdered By: Bharathi jeffries on 10-19-2024 Free T4 [Mass/Vol] 1.50 ng/dL High 0.76-1.46 [facility] TSH DL <= 0.005 mIU/L QnOrde red By: Bharathi Saldana on 10-19-2024 TSH Qn 0.106 uIU/mL Low 0.300-4.20 0 [facility] Thyroid Stim Hormone (TSH)on 10-19-2024 TSH 0.106 uIU/mL Low 0.300-4.20 0 [facility] Comment on above: Performed By: #### L 501.5200, L501.9520, L501.2300, L100.0100, L500.4050 ####[facility] [address] [place], [place], [address] Total proteinOrdered By: Hosea wiggins Les on 10-19-2024 Protein [Mass/Vol] 6.8 g/dL 5.9-8.4 [facility] Venous Duplex US - Mario Extre mon 10-19-2024 Venous Duplex US - Mario Extrem Normal [facility] Absolute neutrophil countOrd ered By: ED PROVIDER on 10-18-2024 Neutrophils (Bld) [#/Vol] 9.3 10*3/uL High 2.0-7.7 [facility] Anion gap in Serum or Plasma Ordered By: Kyler Hay on 10-18-2024 Anion gap [Moles/Vol] 15 mmol/L 5-15 [facility] Assessment of wrist artery p atency prior to arterial punctureOrdered By: Kyler Hay on 10-18-2024 Ivana Test Positive Normal [facility] Comment on above: Performed By: #### L 9000.0800 ####[facility] [address] [place], [place], [address] BUN/creatinine ratioOrdered By: Kyler Hay on 10-18-2024 Urea nitrogen/Creatinine [Mass ratio] 23.5 mg/mg High 10-20 [facility] Base excess Calc (BldV) [Mol es/Vol]Ordered By: Kyler Hay on 10-18-2024 Blood Gas Base Excess -2 mmol/L -2-2 [facility] Basophil percentageOrdered B y: ED PROVIDER on 10-18-2024 Basophils/100 WBC (Bld) 0.7 % 0-1 [facility] Bilirubin, totalOrdered By: Kyler Hay on 10-18-2024 Bilirubin [Mass/Vol] 0.56 mg/dL 0.00-1.30 [facility] Blood bicarbonate measuremen tOrdered By: Kyler Hay on 10-18-2024 Blood Gas Bicarbonate Actual 23.7 mmol/L [facility] CBC W/Diff, Automatedon 09-27 Absolute Lymph 1.28 X10 3/uL Normal 0.83-4.51 [facility] Comment on above: Performed By: #### L 501.2450, L500.4050, L100.0100 ####[facility] [address] [place], [address] Absolute Neut 9.3 X10 3/uL High 2.0-7.7 [facility] Comment on above: Performed By: #### L 501.2450, L500.4050, L100.0100 ####[facility] [address] [place], [address] Basophils/100 WBC (Bld) 0.7 % Normal 0-1 [facility] Comment on above: Performed By: #### L 501.2450, L500.4050, L100.0100 ####[facility] [address] [place], [address] Eosinophils/100 WBC (Bld) 0.8 % Normal 0-5 [facility] Comment on above: Performed By: #### L 501.2450, L500.4050, L100.0100 ####[facility] [address] [place], [address] Erythrocyte distribution width (RBC) [Ratio] 13.9 % Normal 11.6-14.6 [facility] Comment on above: Performed By: #### L 501.2450, L500.4050, L100.0100 ####[facility] [address] [place], [address] Hematocrit (Bld) [Volume fraction] 43.4 % Normal 37-47 [facility] Comment on above: Performed By: #### L 501.2450, L500.4050, L100.0100 ####[facility] [address] [place], [address] Hemoglobin (Bld) [Mass/Vol] 14.1 g/dL Normal 12.0-15.0 [facility] Comment on above: Performed By: #### L 501.2450, L500.4050, L100.0100 ####[facility] [address] [place], [address] IG% 0.300 Normal 0.0-0.9 [facility] Comment on above: Result Comment: IG% - Immature Granulocytes (promyelocytes, myelocytes andmetamyelocytes) > 1% indicates that a LEFT SHIFT is Present. Performed By: #### L 501.2450, L500.4050, L100.0100 ####[facility] [address] [place], [address] Lymphocytes/100 WBC (Bld) 11.1 % Low 19-41 [facility] Comment on above: Performed By: #### L 501.2450, L500.4050, L100.0100 ####[facility] [address] [place], [address] MCH (RBC) [Entitic mass] 28.8 pg Normal 27.0-32.0 [facility] Comment on above: Performed By: #### L 501.2450, L500.4050, L100.0100 ####[facility] [address] [place], [address] MCHC (RBC) [Mass/Vol] 32.5 g/dL Normal 32-36 [facility] Comment on above: Performed By: #### L 501.2450, L500.4050, L100.0100 ####[facility] [address] [place], [address] MCV (RBC) [Entitic vol] 88.8 fL Normal 81-99 [facility] Comment on above: Performed By: #### L 501.2450, L500.4050, L100.0100 ####[facility] [address] [place], [address] Monocytes/100 WBC (Bld) 6.9 % Normal 0-10 [facility] Comment on above: Performed By: #### L 501.2450, L500.4050, L100.0100 ####[facility] [address] [place], [address] Neutrophils/100 WBC (Bld) 80.2 % High 47-70 [facility] Comment on above: Performed By: #### L 501.2450, L500.4050, L100.0100 ####[facility] [address] [place], [address] Nucleated RBC (Bld) [#/Vol] 0 10*3/uL Normal 0-5 [facility] Comment on above: Performed By: #### L 501.2450, L500.4050, L100.0100 ####[facility] [address] [place], [address] Platelet mean volume (Bld) [Entitic vol] 9.8 fL Normal 6.2-12.0 [facility] Comment on above: Performed By: #### L 501.2450, L500.4050, L100.0100 ####[facility] [address] [place], [address] Platelets (Bld) [#/Vol] 186 10*3/uL Normal 150-450 [facility] Comment on above: Performed By: #### L 501.2450, L500.4050, L100.0100 ####[facility] [address] [place], [address] RBC (Bld) [#/Vol] 4.89 10*6/uL Normal 4.2-5.4 [facility] Comment on above: Performed By: #### L 501.2450, L500.4050, L100.0100 ####[facility] [address] [place], [address] RDW SD 45.1 fl High 35.1-43.9 [facility] Comment on above: Performed By: #### L 501.2450, L500.4050, L100.0100 ####[facility] [address] [place], [address] WBC (Bld) [#/Vol] 11.5 10*3/uL High 4.4-11.0 [facility] Comment on above: Performed By: #### L 501.2450, L500.4050, L100.0100 ####[facility] [address] [place], [address] CTA Chest W/WO Contraston CTA Chest W/WO Contrast Normal [facility] Carbon dioxide, total [Moles /volume] in Central venous bloodOrdered By: Kyler Hay on 10-18-2024 CO2 [Moles/Vol] 21.3 mmol/L 21.0-32.0 [facility] Chest PA and Lateralon 10-18 Chest PA and Lateral Normal [facility] Chloride assayOrdered By: Karri Hay on 10-18-2024 Chloride [Moles/Vol] 102 mmol/L 98-108 [facility] Comprehensive Metabolic Prof ilon 10-18-2024 Albumin [Mass/Vol] 3.9 g/dL Normal 3.4-4.8 [facility] Comment on above: Performed By: #### L 501.2450, L500.4050, L100.0100 ####[facility] [address] [place], [address] Albumin/Globulin [Mass ratio] 1.0 {ratio} Normal 0.9-2.4 [facility] Comment on above: Performed By: #### L 501.2450, L500.4050, L100.0100 ####[facility] [address] [place], [address] ALK PHOS 99 U/L Normal 35-104 [facility] Comment on above: Performed By: #### L 501.2450, L500.4050, L100.0100 ####[facility] [address] [place], [address] ALT [Catalytic activity/Vol] 10 U/L Normal <=34 [facility] Comment on above: Performed By: #### L 501.2450, L500.4050, L100.0100 ####[facility] [address] [place], [address] AST [Catalytic activity/Vol] 18 U/L Normal <=31 [facility] Comment on above: Result Comment: Hemo lysis present, Results??could be affected.?? Performed By: #### L 501.2450, L500.4050, L100.0100 ####[facility] [address] [place], [address] Bilirubin [Mass/Vol] 0.56 mg/dL Normal 0.00-1.30 [facility] Comment on above: Performed By: #### L 501.2450, L500.4050, L100.0100 ####[facility] [address] [place], [address] BUN/CRE 23.5 RATIO High 10-20 [facility] Comment on above: Performed By: #### L 501.2450, L500.4050, L100.0100 ####[facility] [address] [place], [address] Calcium [Mass/Vol] 9.5 mg/dL Normal 7.6-11.0 [facility] Comment on above: Performed By: #### L 501.2450, L500.4050, L100.0100 ####[facility] [address] [place], [address] Chloride [Moles/Vol] 102 mmol/L Normal 98-108 [facility] Comment on above: Performed By: #### L 501.2450, L500.4050, L100.0100 ####[facility] [address] [place], [address] CO2 [Moles/Vol] 21.3 mmol/L Normal 21.0-32.0 [facility] Comment on above: Performed By: #### L 501.2450, L500.4050, L100.0100 ####[facility] [address] [place], [address] Creatinine [Mass/Vol] 0.75 mg/dL Normal 0.70-1.20 [facility] Comment on above: Performed By: #### L 501.2450, L500.4050, L100.0100 ####[facility] [address] [place], [address] ECRCL 92.12 ml/min Normal 50-250 [facility] Comment on above: Performed By: #### L 501.2450, L500.4050, L100.0100 ####[facility] [address] [place], [address] GAP 15 Normal 5-15 [facility] Comment on above: Performed By: #### L 501.2450, L500.4050, L100.0100 ####[facility] [address] [place], [address] GFR/1.73 sq M.predicted among non-blacks MDRD (S/P/Bld) [Vol rate/Area] 90 mL/min/{1.73_m2} Normal >60 [facility] Comment on above: Result Comment: mL/m in/1.73m2 CKD-EPI Creatinine Equation (2020) Performed By: #### L 501.2450, L500.4050, L100.0100 ####[facility] [address] [place], [address] Globulin (S) [Mass/Vol] 3.9 g/dL Normal 2.2-4.2 [facility] Comment on above: Performed By: #### L 501.2450, L500.4050, L100.0100 ####[facility] [address] [place], [address] Glucose [Mass/Vol] 224 mg/dL High 70-99 [facility] Comment on above: Performed By: #### L 501.2450, L500.4050, L100.0100 ####[facility] [address] [place], [address] Potassium [Moles/Vol] 4.0 mmol/L Normal 3.3-5.1 [facility] Comment on above: Result Comment: Hemo lysis present, Results??could be affected.?? Performed By: #### L 501.2450, L500.4050, L100.0100 ####[facility] [address] [place], [address] Sodium [Moles/Vol] 139 mmol/L Normal 133-145 [facility] Comment on above: Performed By: #### L 501.2450, L500.4050, L100.0100 ####[facility] [address] [place], [address] T PROT 7.7 g/dL Normal 5.9-8.4 [facility] Comment on above: Performed By: #### L 501.2450, L500.4050, L100.0100 ####[facility] [address] [place], [address] Urea nitrogen [Mass/Vol] 18 mg/dL Normal 4-19 [facility] Comment on above: Performed By: #### L 501.2450, L500.4050, L100.0100 ####[facility] [address] [place], [place], [address] D-Dimer Quantitative (DVT/PE )on 10-18-2024 D-DIMER QUANT 2.69 FEU/ug/m Invalid Interpretation Code 0.27-0.49 [facility] Comment on above: Result Comment: D-Di ok ELEVATED (>0.49): Additional studies and clinicalassessments are indicated to conclude diagnosis of:Deep Vein Thrombosis (DVT) or Pulmonary Embolism (PE)CRITICAL VALUE CALLED TO 2017 Alexey Saenz.RESULTS READ BACK BY SAME. Performed By: #### L 300.8000 ####[facility] [address] [place], [place], [id number] D-dimer measurement for deep venous thrombosisOrdered By: Kyler Hay on 10-18-2024 D-Dimer Quantitative (PE/DVT) 2.69 FEU/ug/m High 0.27-0.49 [facility] Comment on above: D-Dimer ELEVATED (>0 .49): Additional studies and clinicalassessments are indicated to conclude diagnosis of:Deep Vein Thrombosis (DVT) or Pulmonary Embolism (PE)CRITICAL VALUE CALLED TO 2017 Alexey Saenz.RESULTS READ BACK BY SAME. Determination of fraction of inspired oxygenOrdered By: Kyler Hay on 10-18-2024 Blood Gas Oxygen Percent 5.0 [facility] Emergency Department Summary on 10-18-2024 Emergency Department Summary Normal [facility] Eosinophil percentageOrdered By: ED PROVIDER on 10-18-2024 Eosinophils/100 WBC (Bld) 0.8 % 0-5 [facility] Erythrocyte distribution wid th (RBC) [Ratio]Ordered By: ED PROVIDER on 10-18-2024 Erythrocyte distribution width (RBC) [Entitic vol] 45.1 fL High 35.1-43.9 [facility] Erythrocyte distribution wid th ratioOrdered By: ED PROVIDER on 10-18-2024 Erythrocyte distribution width (RBC) [Ratio] 13.9 % 11.6-14.6 [facility] Estimation of creatinine kristan aranceOrdered By: Kyler Hay on 10-18-2024 Estimated Creatinine Clearance Calc 92.12 ml/min 50-250 [facility] GFR/1.73 sq M.predicted marcelina g non-blacks MDRD (S/P/Bld) [Vol rate/Area]Ordered By: Kyler Hay on 10-18-2024 Estimated GFR (MDRD) Non-Af Amer 90 >60 [facility] Comment on above: mL/min/1.73m2 CKD-EP I Creatinine Equation (2020) H AND P Exam - Hospitaliston 10-18-2024 H&P Exam - Hospitalist Normal [facility] Hematocrit Auto (Bld) [Volum e fraction]Ordered By: ED PROVIDER on 10-18-2024 Hematocrit (Bld) [Volume fraction] 43.4 % 37-47 [facility] Hemoglobin measurementOrdere d By: ED PROVIDER on 10-18-2024 Hemoglobin (Bld) [Mass/Vol] 14.1 g/dL 12.0-15.0 [facility] Immature granulocytes/100 WB C Auto (Bld)Ordered By: ED PROVIDER on 10-18-2024 Immature granulocytes/100 WBC (Bld) 0.300 % 0.0-0.9 [facility] Comment on above: IG% - Immature Granu locytes (promyelocytes, myelocytes and metamyelocytes) > 1% indicates that a LEFT SHIFT is Present. Influenza virus A and B and SARS-CoV-2 (COVID-19) and Respiratory syncytial virus RNAOrdered By: Kyler Hay on 10-18-2024 SARS-CoV-2 (COVID-19) RNA JADEN+probe Ql (Unsp spec) [facility] International normalized rat io (INR) calculationOrdered By: Kylerjustin Hay on 10-18-2024 INR Coag (Bld) [Relative time] 1.0 {INR} [facility] L499.0042on 10-18-2024 Trop T High Sen 8 ng/L Normal <=14 [facility] Comment on above: Performed By: #### L 499.0042 ####[facility] [address] [place], [address] L501.4021on 10-18-2024 Trop T High Sen 9 ng/L Normal <=14 [facility] Comment on above: Performed By: #### L 501.4021 ####[facility] [address] [place], [place], [id number] Laboratory - Chemistry and C hemistry - challengeOrdered By: Kylerjustin MariaJean Paul on 10-18-2024 AST [Catalytic activity/Vol] 18 U/L <32 [facility] Comment on above: Hemolysis present, R esults could be affected. Lipaseon 10-18-2024 Lipase [Catalytic activity/Vol] 16 U/L Normal 13-75 [facility] Comment on above: Result Comment: Plea se note:LIPASE revised reference range effective 22.New Lipase methodology. Expected to produce lower valuesthan the previous assay method.NEW Reference Range: 13 - 75 U/L Performed By: #### L 501.2450, L500.4050, L100.0100 ####[facility] [address] [place], [place], [id number] Lipase measurementOrdered By : University HospitalgloriaJean Paul on 10-18-2024 Lipase [Catalytic activity/Vol] 16 U/L 13-75 [facility] Comment on above: Please note:LIPASE r evised reference range effective 22. New Lipase methodology. Expected to produce lower values than the previous assay method. NEW Reference Range: 13 - 75 U/L Lymphocytes Auto (Unsp spec) [#/Vol]Ordered By: ED PROVIDER on 10-18-2024 Lymphocytes (Bld) [#/Vol] 1.28 10*3/uL 0.83-4.51 [facility] Lymphocytes/100 WBC Auto (Un sp spec)Ordered By: ED PROVIDER on 10-18-2024 Lymphocytes/100 WBC (Bld) 11.1 % Low 19-41 [facility] M100.678on 10-18-2024 M100.678 Pending SARS-CoV-2 (COVID 19) Negative INFLUENZA A Negative INFLUENZA B Negative RSV PCR Negative Normal [facility] Comment on above: Performed By: #### M 100.678 ####[facility] [address] [place], [address] MCV (mean corpuscular volume ) determinationOrdered By: ED PROVIDER on 10-18-2024 MCV (RBC) [Entitic vol] 88.8 fL 81-99 [facility] Mean corpuscular hemoglobin (MCH) determinationOrdered By: ED PROVIDER on 10-18-2024 MCH (RBC) [Entitic mass] 28.8 pg 27.0-32.0 [facility] Mean corpuscular hemoglobin concentration (MCHC) determinationOrdered By: ED PROVIDER on 10-18-2024 MCHC (RBC) [Mass/Vol] 32.5 g/dL 32-36 [facility] Mean platelet volume determi nationOrdered By: ED PROVIDER on 10-18-2024 Platelet mean volume (Bld) [Entitic vol] 9.8 fL 6.2-12.0 [facility] Monocyte percentageOrdered B y: ED PROVIDER on 10-18-2024 Monocytes/100 WBC (Bld) 6.9 % 0-10 [facility] Neutrophil percentageOrdered By: ED PROVIDER on 10-18-2024 Neutrophils/100 WBC (Bld) 80.2 % High 47-70 [facility] No Panel InformationOrdered By: Kyler Hay on 10-18-2024 Blood Gas Sample Site L Brach [facility] Blood Gas Specimen Type ART [facility] Blood Gas Vent Mode Not entered [facility] Oxygen Delivery Device Cannula [facility] Nucleated red blood cell per centageOrdered By: ED PROVIDER on 10-18-2024 Nucleated RBC/100 WBC (Bld) [Ratio] 0 % 0-5 [facility] Oxygen saturation measuremen tOrdered By: Kyler Hay on 10-18-2024 Blood Gas Oxygen Saturation 87 % Low 95-99 [facility] Partial Thromboplast Timeon 10-18-2024 aPTT Coag (Bld) [Time] 24.8 s Normal 24.1-36.2 [facility] Comment on above: Performed By: #### L 300.7511, L372.8379 ####[facility] [address] [place], [place], [id number] Partial pressure of carbon d ioxide measurementOrdered By: Kyler Hay on 10-18-2024 Arterial Blood Partial Pressure CO2 43.7 mmHg 35-45 [facility] Partial pressure of oxygen m easurementOrdered By: Kyler Hay on 10-18-2024 Arterial Blood Partial Pressure O2 57 mmHG Low 75-100 [facility] Platelet countOrdered By: ED PROVIDER on 10-18-2024 Platelets (Bld) [#/Vol] 186 10*3/uL 150-450 [facility] Potassium (Unsp spec) [Mass/ Vol]Ordered By: Kyler Hay on 10-18-2024 Potassium [Moles/Vol] 4.0 mmol/L 3.3-5.1 [facility] Comment on above: Hemolysis present, R esults could be affected. Prothrombin Time w/INRon INR Coag (PPP) [Relative time] 1.0 {INR} Normal [facility] Comment on above: Performed By: #### L 300.3900, L300.4310 ####[facility] [address] [place], [place], [id number] PT Coag (PPP) [Time] 13.2 s Normal 11.7-14.9 [facility] Comment on above: Performed By: #### L 300.3900, L300.4310 ####[facility] [address] [facility] [address] [address] [place], [place], [phone] Prothrombin timeOrdered By: Kyler Hay on 10-18-2024 PT Coag (PPP) [Time] 13.2 s 11.7-14.9 [facility] RBC Auto (Bld) [#/Vol]Ordere d By: ED PROVIDER on 10-18-2024 RBC (Bld) [#/Vol] 4.89 10*6/uL 4.2-5.4 [facility] Serum creatinine measurement (mass/volume)Ordered By: Kyler Hay on 10-18-2024 Creatinine [Mass/Vol] 0.75 mg/dL 0.70-1.20 [facility] Serum globulin measurementOr dered By: Kyler Hay on 10-18-2024 Globulin (S) [Mass/Vol] 3.9 g/dL 2.2-4.2 [facility] Serum glucose measurement (m ass/volume)Ordered By: Kyler Hay on 10-18-2024 Glucose [Mass/Vol] 224 mg/dL High 70-99 [facility] Serum or plasma alanine smith otransferase (ALT) measurementOrdered By: Kyler Hay on 10-18-2024 ALT [Catalytic activity/Vol] 10 U/L <35 [facility] Serum or plasma albumin jasiel urement (mass/volume)Ordered By: Kyler Reaves on 10-18-2024 Albumin [Mass/Vol] 3.9 g/dL 3.4-4.8 [facility] Serum or plasma albumin/glob ulin mass ratioOrdered By: Kyler Hay on 10-18-2024 Albumin/Globulin [Mass ratio] 1.0 {ratio} 0.9-2.4 [facility] Serum or plasma alkaline quintin sphatase measurementOrdered By: Kyler Hay on 10-18-2024 ALP [Catalytic activity/Vol] 99 U/L 35-104 [facility] Serum or plasma calcium jasiel urement (mass/volume)Ordered By: Kyler Reaves on 10-18-2024 Calcium [Mass/Vol] 9.5 mg/dL 7.6-11.0 [facility] Serum or plasma urea nitroge n measurement (mass/volume)Ordered By: Kyler Hay on 10-18-2024 Urea nitrogen [Mass/Vol] 18 mg/dL 4-19 [facility] Sodium levelOrdered By: Cresencio Hay on 10-18-2024 Sodium [Moles/Vol] 139 mmol/L 133-145 [facility] Total carbon dioxide measure mentOrdered By: Kyler Hay on 10-18-2024 Blood Gas Total CO2 25 mmol/L [facility] Total proteinOrdered By: Bossman Hay on 10-18-2024 Protein [Mass/Vol] 7.7 g/dL 5.9-8.4 [facility] Troponin T.cardiac High sens itivity method [Mass/Vol]Ordered By: Kyler Reaves on 10-18-2024 Troponin T High Sensitivity 2 Hour 8 ng/L <14 [facility] Troponin T High Sensitivity 9 ng/L <14 [facility] Troponin T.cardiac [Mass/vol ume] in Serum or Plasma by High sensitivity methodOrdered By: Kyler Hay on 10-18-2024 Troponin T.cardiac High sensitivity method [Mass/Vol] 8 ng/L <14 [facility] Troponin T.cardiac High sensitivity method [Mass/Vol] 9 ng/L <14 [facility] White blood cell (WBC) count Ordered By: ED PROVIDER on 10-18-2024 WBC (Bld) [#/Vol] 11.5 10*3/uL High 4.4-11.0 [facility] aPTT Coag (PPP) [Time]Ordere d By: Kyler Hay on 10-18-2024 aPTT Coag (Bld) [Time] 24.8 s 24.1-36.2 [facility] pH (Unsp spec)Ordered By: Karri Hay on 10-18-2024 Blood Gas pH 7.34 Low 7.35-7.45 [facility] Absolute lymphocyte countOrd ered By: Diana Ramos on 08-22-2024 Lymphocytes Auto (Unsp spec) [#/Vol] 1.48 10*3/uL 0.83-4.51 [facility] Absolute neutrophil countOrd ered By: Diana Ramos on 08-22-2024 Neutrophils (Bld) [#/Vol] 4.3 10*3/uL 2.0-7.7 [facility] Automated lymphocyte count a s percentage of total leukocytesOrdered By: Diana Ramos on 08-22-2024 Lymphocytes/100 WBC Auto (Unsp spec) 22.9 % 19-41 [facility] BUN/creatinine ratioOrdered By: Dianaprasanna Fongfranny on 08-22-2024 Urea nitrogen/Creatinine [Mass ratio] 35.9 mg/mg High 10-20 [facility] Basophil percentageOrdered B y: Diana Rachel on 08-22-2024 Basophils/100 WBC (Bld) 0.6 % 0-1 [facility] Bilirubin, totalOrdered By: Diana Rachel on 08-22-2024 Bilirubin [Mass/Vol] 0.52 mg/dL 0.00-1.30 [facility] CBC W/Diff, Automatedon 07-30 Absolute Lymph 1.48 X10 3/uL Normal 0.83-4.51 [facility] Comment on above: Performed By: #### L 500.4050, L100.0100 ####[facility] [address] [place], [address] Absolute Neut 4.3 X10 3/uL Normal 2.0-7.7 [facility] Comment on above: Performed By: #### L 500.4050, L100.0100 ####[facility] [address] [place], [address] Basophils/100 WBC (Bld) 0.6 % Normal 0-1 [facility] Comment on above: Performed By: #### L 500.4050, L100.0100 ####[facility] [address] [place], [address] Eosinophils/100 WBC (Bld) 3.2 % Normal 0-5 [facility] Comment on above: Performed By: #### L 500.4050, L100.0100 ####[facility] [address] [place], [address] Erythrocyte distribution width (RBC) [Ratio] 14.3 % Normal 11.6-14.6 [facility] Comment on above: Performed By: #### L 500.4050, L100.0100 ####[facility] [address] [place], [address] Hematocrit (Bld) [Volume fraction] 46.7 % Normal 37-47 [facility] Comment on above: Performed By: #### L 500.4050, L100.0100 ####[facility] [address] [place], [address] Hemoglobin (Bld) [Mass/Vol] 14.8 g/dL Normal 12.0-15.0 [facility] Comment on above: Performed By: #### L 500.4050, L100.0100 ####[facility] [address] [place], [address] IG% 0.300 Normal 0.0-0.9 [facility] Comment on above: Result Comment: IG% - Immature Granulocytes (promyelocytes, myelocytes andmetamyelocytes) > 1% indicates that a LEFT SHIFT is Present. Performed By: #### L 500.4050, L100.0100 ####[facility] [address] [place], [address] Lymphocytes/100 WBC (Bld) 22.9 % Normal 19-41 [facility] Comment on above: Performed By: #### L 500.4050, L100.0100 ####[facility] [address] [place], [address] MCH (RBC) [Entitic mass] 28.2 pg Normal 27.0-32.0 [facility] Comment on above: Performed By: #### L 500.4050, L100.0100 ####[facility] [address] [place], [address] MCHC (RBC) [Mass/Vol] 31.7 g/dL Low 32-36 [facility] Comment on above: Performed By: #### L 500.4050, L100.0100 ####[facility] [address] [place], [address] MCV (RBC) [Entitic vol] 89.1 fL Normal 81-99 [facility] Comment on above: Performed By: #### L 500.4050, L100.0100 ####[facility] [address] [place], [address] Monocytes/100 WBC (Bld) 7.0 % Normal 0-10 [facility] Comment on above: Performed By: #### L 500.4050, L100.0100 ####[facility] [address] [place], [address] Neutrophils/100 WBC (Bld) 66.0 % Normal 47-70 [facility] Comment on above: Performed By: #### L 500.4050, L100.0100 ####[facility] [address] [place], [address] Nucleated RBC (Bld) [#/Vol] 0 10*3/uL Normal 0-5 [facility] Comment on above: Performed By: #### L 500.4050, L100.0100 ####[facility] [address] [place], [address] Platelet mean volume (Bld) [Entitic vol] 10.2 fL Normal 6.2-12.0 [facility] Comment on above: Performed By: #### L 500.4050, L100.0100 ####[facility] [address] [place], [address] Platelets (Bld) [#/Vol] 211 10*3/uL Normal 150-450 [facility] Comment on above: Performed By: #### L 500.4050, L100.0100 ####[facility] [address] [place], [address] RBC (Bld) [#/Vol] 5.24 10*6/uL Normal 4.2-5.4 [facility] Comment on above: Performed By: #### L 500.4050, L100.0100 ####[facility] [address] [place], [address] RDW SD 46.0 fl High 35.1-43.9 [facility] Comment on above: Performed By: #### L 500.4050, L100.0100 ####[facility] [address] [place], [address] WBC (Bld) [#/Vol] 6.5 10*3/uL Normal 4.4-11.0 [facility] Comment on above: Performed By: #### L 500.4050, L100.0100 ####[facility] [address] [place], [address] Comprehensive Metabolic Prof ilon 08-22-2024 Albumin [Mass/Vol] 4.0 g/dL Normal 3.4-4.8 [facility] Comment on above: Performed By: #### L 500.4050 ####[facility] [address] [place], [address] Albumin/Globulin [Mass ratio] 1.1 {ratio} Normal 0.9-2.4 [facility] Comment on above: Performed By: #### L 500.4050 ####[facility] [address] [place], [address] ALK PHOS 101 U/L Normal 35-104 [facility] Comment on above: Performed By: #### L 500.4050 ####[facility] [address] [place], [address] ALT [Catalytic activity/Vol] 13 U/L Normal <=34 [facility] Comment on above: Performed By: #### L 500.4050 ####[facility] [address] [place], [address] Anion gap [Moles/Vol] 14 mmol/L Normal 5-15 [facility] Comment on above: Performed By: #### L 500.4050 ####[facility] [address] [place], [address] AST [Catalytic activity/Vol] 17 U/L Normal <=31 [facility] Comment on above: Performed By: #### L 500.4050 ####[facility] [address] [place], [address] Bilirubin [Mass/Vol] 0.52 mg/dL Normal 0.00-1.30 [facility] Comment on above: Performed By: #### L 500.4050 ####[facility] [address] [place], [address] BUN/CRE 35.9 RATIO High 10-20 [facility] Comment on above: Performed By: #### L 500.4050 ####[facility] [address] [place], [address] Calcium [Mass/Vol] 10.0 mg/dL Normal 7.6-11.0 [facility] Comment on above: Performed By: #### L 500.4050 ####[facility] [address] [place], [address] Chloride [Moles/Vol] 102 mmol/L Normal 96-108 [facility] Comment on above: Performed By: #### L 500.4050 ####[facility] [address] [place], [address] CO2 [Moles/Vol] 24.0 mmol/L Normal 22.0-29.0 [facility] Comment on above: Performed By: #### L 500.4050 ####[facility] [address] [place], [address] Creatinine [Mass/Vol] 0.8 mg/dL Normal 0.6-1.0 [facility] Comment on above: Performed By: #### L 500.4050 ####[facility] [address] [place], [address] GFR/1.73 sq M.predicted among non-blacks MDRD (S/P/Bld) [Vol rate/Area] 90 mL/min/{1.73_m2} Normal >60 [facility] Comment on above: Result Comment: mL/m in/1.73m2 CKD-EPI Creatinine Equation (2020) Performed By: #### L 500.4050 ####[facility] [address] [place], [address] Globulin (S) [Mass/Vol] 3.8 g/dL Normal 2.2-4.2 [facility] Comment on above: Performed By: #### L 500.4050 ####[facility] [address] [place], [address] Glucose [Mass/Vol] 187 mg/dL High 70-99 [facility] Comment on above: Performed By: #### L 500.4050 ####[facility] [address] [place], [address] Potassium [Moles/Vol] 4.3 mmol/L Normal 3.3-5.1 [facility] Comment on above: Performed By: #### L 500.4050 ####[facility] [address] [place], [address] Sodium [Moles/Vol] 140 mmol/L Normal 133-145 [facility] Comment on above: Performed By: #### L 500.4050 ####[facility] [address] [place], [address] T PROT 7.8 g/dL Normal 5.9-8.4 [facility] Comment on above: Performed By: #### L 500.4050 ####[facility] [address] [place], [address] Urea nitrogen [Mass/Vol] 27 mg/dL High 4-19 [facility] Comment on above: Performed By: #### L 500.4050 ####[facility] [address] [place], [address] ALB Normal 3.4-4.8 [facility] Comment on above: Result Comment: PUTT ING UNDER DIFFERENT REQ Performed By: #### L 500.4050, L100.0100 ####[facility] [address] [place], [address] ALK PHOS Normal 45-117 [facility] Comment on above: Result Comment: PUTT ING UNDER DIFFERENT REQ Performed By: #### L 500.4050, L100.0100 ####[facility] [address] [place], [address] ALT Normal 13-56 [facility] Comment on above: Result Comment: PUTT ING UNDER DIFFERENT REQ Performed By: #### L 500.4050, L100.0100 ####[facility] [address] [place], [address] AST Normal 15-37 [facility] Comment on above: Result Comment: PUTT ING UNDER DIFFERENT REQ Performed By: #### L 500.4050, L100.0100 ####[facility] [address] [place], [address] BUN Normal 4-19 [facility] Comment on above: Result Comment: PUTT ING UNDER DIFFERENT REQ Performed By: #### L 500.4050, L100.0100 ####[facility] [address] [place], [address] BUN/CRE Normal 10-20 [facility] Comment on above: Result Comment: PUTT ING UNDER DIFFERENT REQ Performed By: #### L 500.4050, L100.0100 ####[facility] [address] [place], [address] Calcium Normal 8.5-10.1 [facility] Comment on above: Result Comment: PUTT ING UNDER DIFFERENT REQ Performed By: #### L 500.4050, L100.0100 ####[facility] [address] [place], [address] CL Normal 98-107 [facility] Comment on above: Result Comment: PUTT ING UNDER DIFFERENT REQ Performed By: #### L 500.4050, L100.0100 ####[facility] [address] [place], [address] CO2 Normal 21.0-32.0 [facility] Comment on above: Result Comment: PUTT ING UNDER DIFFERENT REQ Performed By: #### L 500.4050, L100.0100 ####[facility] [address] [place], [address] CREAT,SERUM Normal 0.6-1.0 [facility] Comment on above: Result Comment: PUTT ING UNDER DIFFERENT REQ Performed By: #### L 500.4050, L100.0100 ####[facility] [address] [place], [address] eGFR Normal >60 [facility] Comment on above: Result Comment: PUTT ING UNDER DIFFERENT REQ Performed By: #### L 500.4050, L100.0100 ####[facility] [address] [place], [address] GAP Normal 5-15 [facility] Comment on above: Result Comment: PUTT ING UNDER DIFFERENT REQ Performed By: #### L 500.4050, L100.0100 ####[facility] [address] [place], [address] GLU Normal 70-99 [facility] Comment on above: Result Comment: PUTT ING UNDER DIFFERENT REQ Performed By: #### L 500.4050, L100.0100 ####[facility] [address] [place], [address] Potassium Normal 3.5-5.1 [facility] Comment on above: Result Comment: PUTT ING UNDER DIFFERENT REQ Performed By: #### L 500.4050, L100.0100 ####[facility] [address] [place], [address] T BILI Normal 0.20-1.00 [facility] Comment on above: Result Comment: PUTT ING UNDER DIFFERENT REQ Performed By: #### L 500.4050, L100.0100 ####[facility] [address] [place], [address] T PROT Normal 5.9-8.4 [facility] Comment on above: Result Comment: PUTT ING UNDER DIFFERENT REQ Performed By: #### L 500.4050, L100.0100 ####[facility] [address] [place], [address] Comprehensive Metabolic Profil Normal 136-145 [facility] Comment on above: Result Comment: PUTT ING UNDER DIFFERENT REQ Performed By: #### L 500.4050, L100.0100 ####[facility] [address] [place], [address] Creatinine [Moles/Vol]Ordere d By: Diana Ramos on 08-22-2024 Creatinine [Mass/Vol] 0.8 mg/dL 0.6-1.0 [facility] Eosinophil percentageOrdered By: Diana Ramos on 08-22-2024 Eosinophils/100 WBC (Bld) 3.2 % 0-5 [facility] Erythrocyte distribution wid th ratioOrdered By: Diana Ramos on 08-22-2024 Erythrocyte distribution width (RBC) [Ratio] 14.3 % 11.6-14.6 [facility] Erythrocyte distribution wid th standard deviationOrdered By: Diana Ramos on 08-22-2024 Erythrocyte distribution width (RBC) [Entitic vol] 46.0 fL High 35.1-43.9 [facility] Erythrocyte distribution width (RBC) [Ratio] 46.0 fl High 35.1-43.9 [facility] GFR/1.73 sq M.predicted marcelina g non-blacks MDRD (S/P/Bld) [Vol rate/Area]Ordered By: Diana Ramos on 08-22-2024 Estimated GFR (MDRD) Non-Af Amer 90 >60 [facility] Comment on above: mL/min/1.73m2 CKD-EP I Creatinine Equation (2020) Glomerular filtration rate ( GFR) estimation/1.73 sq m using serum, plasma, or whole bOrdered By: Diana aRmos on 08-22-2024 GFR/1.73 sq M.predicted among non-blacks MDRD (S/P/Bld) [Vol rate/Area] 90 mL/min/{1.73_m2} >60 [facility] Comment on above: mL/min/1.73m2 CKD-EP I Creatinine Equation (2020) Hematocrit Auto (Bld) [Volum e fraction]Ordered By: Diana Ramos on 08-22-2024 Hematocrit (Bld) [Volume fraction] 46.7 % 37-47 [facility] Hemoglobin measurementOrdere d By: Diana Ramos on 08-22-2024 Hemoglobin (Bld) [Mass/Vol] 14.8 g/dL 12.0-15.0 [facility] Immature granulocytes/100 WB C Auto (Bld)Ordered By: Diana Ramos on 08-22-2024 Immature granulocytes/100 WBC (Bld) 0.300 % 0.0-0.9 [facility] Comment on above: IG% - Immature Granu locytes (promyelocytes, myelocytes and metamyelocytes) > 1% indicates that a LEFT SHIFT is Present. Laboratory - Chemistry and C hemistry - challengeOrdered By: Diana Ramos on 08-22-2024 AST [Catalytic activity/Vol] 17 U/L <32 [facility] Lymphocytes Auto (Unsp spec) [#/Vol]Ordered By: Diana Ramos on 08-22-2024 Lymphocytes (Bld) [#/Vol] 1.48 10*3/uL 0.83-4.51 [facility] Lymphocytes/100 WBC Auto (Un sp spec)Ordered By: Diana Ramos on 08-22-2024 Lymphocytes/100 WBC (Bld) 22.9 % 19-41 [facility] MCV (mean corpuscular volume ) determinationOrdered By: Diana Ramos on 08-22-2024 MCV (RBC) [Entitic vol] 89.1 fL 81-99 [facility] Mean corpuscular hemoglobin (MCH) determinationOrdered By: Diana Ramos on 08-22-2024 MCH (RBC) [Entitic mass] 28.2 pg 27.0-32.0 [facility] Mean corpuscular hemoglobin concentration (MCHC) determinationOrdered By: Diana Ramos on 08-22-2024 MCHC (RBC) [Mass/Vol] 31.7 g/dL Low 32-36 [facility] Mean platelet volume determi nationOrdered By: Diana Ramos on 08-22-2024 Platelet mean volume (Bld) [Entitic vol] 10.2 fL 6.2-12.0 [facility] Monocyte percentageOrdered B y: Diana Ramos on 08-22-2024 Monocytes/100 WBC (Bld) 7.0 % 0-10 [facility] Neutrophil percentageOrdered By: Diana Ramos on 08-22-2024 Neutrophils/100 WBC (Bld) 66.0 % 47-70 [facility] Nucleated red blood cell per centageOrdered By: Diana Ramos on 08-22-2024 Nucleated RBC/100 WBC (Bld) [Ratio] 0 % 0-5 [facility] Platelet countOrdered By: Sanaz Ramos on 08-22-2024 Platelets (Bld) [#/Vol] 211 10*3/uL 150-450 [facility] RBC Auto (Bld) [#/Vol]Ordere d By: Diana Ramos on 08-22-2024 RBC (Bld) [#/Vol] 5.24 10*6/uL 4.2-5.4 [facility] Serum globulin measurementOr dered By: Diana Ramos on 08-22-2024 Globulin (S) [Mass/Vol] 3.8 g/dL 2.2-4.2 [facility] Serum glucose measurement (m ass/volume)Ordered By: Diana Ramos on 08-22-2024 Glucose [Mass/Vol] 187 mg/dL High 70-99 [facility] Serum or plasma alanine smith otransferase (ALT) measurementOrdered By: Diana Ramos on 08-22-2024 ALT [Catalytic activity/Vol] 13 U/L <35 [facility] Serum or plasma albumin jasiel urement (mass/volume)Ordered By: Diana Ramos on 08-22-2024 Albumin [Mass/Vol] 4.0 g/dL 3.4-4.8 [facility] Serum or plasma albumin/glob ulin mass ratioOrdered By: Diana Ramos on 08-22-2024 Albumin/Globulin [Mass ratio] 1.1 {ratio} 0.9-2.4 [facility] Serum or plasma alkaline quintin sphatase measurementOrdered By: Diana Ramos on 08-22-2024 ALP [Catalytic activity/Vol] 101 U/L 35-104 [facility] Serum or plasma anion gap de termination (moles/volume)Ordered By: Diana Ramos on 08-22-2024 Anion gap [Moles/Vol] 14 mmol/L 5-15 [facility] Serum or plasma calcium jasiel urement (mass/volume)Ordered By: Diana Ramos on 08-22-2024 Calcium [Mass/Vol] 10.0 mg/dL 7.6-11.0 [facility] Serum or plasma creatinine m easurement (moles/volume)Ordered By: Diana Ramos on 08-22-2024 Creatinine [Moles/Vol] 0.8 mg/dL 0.6-1.0 [facility] Serum or plasma potassium me asurementOrdered By: Diana Ramos on 08-22-2024 Potassium [Moles/Vol] 4.3 mmol/L 3.3-5.1 [facility] Serum or plasma sodium measu rement (moles/volume)Ordered By: Diana Ramos on 08-22-2024 Sodium [Moles/Vol] 140 mmol/L 133-145 [facility] Serum or plasma urea nitroge n measurement (mass/volume)Ordered By: Diana Ramos on 08-22-2024 Urea nitrogen [Mass/Vol] 27 mg/dL High - [facility] Total proteinOrdered By: Katarina Ramos on 08-22-2024 Protein [Mass/Vol] 7.8 g/dL 5.9-8.4 [facility] White blood cell (WBC) count Ordered By: Diana Ramos on 08-22-2024 WBC (Bld) [#/Vol] 6.5 10*3/uL 4.4-11.0 [facility] Absolute neutrophil countOrd ered By: Dianaprasanna Ramos on 05-29-2024 Neutrophils (Bld) [#/Vol] 4.1 10*3/uL 2.0-7.7 [facility] Albumin to globulin ratioOrd ered By: Diana Ramos on 05-29-2024 Albumin/Globulin [Mass ratio] 0.9 {ratio} 0.9-2.4 [facility] Basophil percentageOrdered B y: Diana Ramos on 05-29-2024 Basophils/100 WBC (Bld) 0.9 % 0-1 [facility] Bilirubin, totalOrdered By: Dianaprasanna Ramos on 05-29-2024 Bilirubin [Mass/Vol] 0.40 mg/dL 0.20-1.00 [facility] Comment on above: For patients on eltr ombopag therapy, use of Dimension [place] TBIL is not recommended. Blood urea nitrogen (BUN)/cr eatinine ratioOrdered By: Diana Ramos on 05-29-2024 Urea nitrogen/Creatinine [Mass ratio] 23.8 mg/mg High - [facility] CBC W/Diff, Automatedon Absolute Lymph 1.82 X10 3/uL Normal 0.83-4.51 [facility] Comment on above: Performed By: #### L 500.4050, L100.0100 ####[facility] [address] [place], [place], [address] Absolute Neut 4.1 X10 3/uL Normal 2.0-7.7 [facility] Comment on above: Performed By: #### L 500.4050, L100.0100 ####[facility] [address] [place], [address] Basophils/100 WBC (Bld) 0.9 % Normal 0-1 [facility] Comment on above: Performed By: #### L 500.4050, L100.0100 ####[facility] [address] [place], [address] Eosinophils/100 WBC (Bld) 4.6 % Normal 0-5 [facility] Comment on above: Performed By: #### L 500.4050, L100.0100 ####[facility] [address] [place], [address] Erythrocyte distribution width (RBC) [Ratio] 14.0 % Normal 11.6-14.6 [facility] Comment on above: Performed By: #### L 500.4050, L100.0100 ####[facility] [address] [place], [address] Hematocrit (Bld) [Volume fraction] 46.3 % Normal 37-47 [facility] Comment on above: Performed By: #### L 500.4050, L100.0100 ####[facility] [address] [place], [address] Hemoglobin (Bld) [Mass/Vol] 14.6 g/dL Normal 12.0-15.0 [facility] Comment on above: Performed By: #### L 500.4050, L100.0100 ####[facility] [address] [place], [address] IG% 0.300 Normal 0.0-0.9 [facility] Comment on above: Result Comment: IG% - Immature Granulocytes (promyelocytes, myelocytes andmetamyelocytes) > 1% indicates that a LEFT SHIFT is Present. Performed By: #### L 500.4050, L100.0100 ####[facility] [address] [place], [address] Lymphocytes/100 WBC (Bld) 26.9 % Normal 19-41 [facility] Comment on above: Performed By: #### L 500.4050, L100.0100 ####[facility] [address] [place], [address] MCH (RBC) [Entitic mass] 28.3 pg Normal 27.0-32.0 [facility] Comment on above: Performed By: #### L 500.4050, L100.0100 ####[facility] [address] [place], [address] MCHC (RBC) [Mass/Vol] 31.5 g/dL Low 32-36 [facility] Comment on above: Performed By: #### L 500.4050, L100.0100 ####[facility] [address] [place], [address] MCV (RBC) [Entitic vol] 89.9 fL Normal 81-99 [facility] Comment on above: Performed By: #### L 500.4050, L100.0100 ####[facility] [address] [place], [address] Monocytes/100 WBC (Bld) 7.5 % Normal 0-10 [facility] Comment on above: Performed By: #### L 500.4050, L100.0100 ####[facility] [address] [place], [address] Neutrophils/100 WBC (Bld) 59.8 % Normal 47-70 [facility] Comment on above: Performed By: #### L 500.4050, L100.0100 ####[facility] [address] [place], [address] Nucleated RBC (Bld) [#/Vol] 0 10*3/uL Normal 0-5 [facility] Comment on above: Performed By: #### L 500.4050, L100.0100 ####[facility] [address] [place], [address] Platelet mean volume (Bld) [Entitic vol] 10.5 fL Normal 6.2-12.0 [facility] Comment on above: Performed By: #### L 500.4050, L100.0100 ####[facility] [address] [place], [address] Platelets (Bld) [#/Vol] 200 10*3/uL Normal 150-450 [facility] Comment on above: Performed By: #### L 500.4050, L100.0100 ####[facility] [address] [place], [address] RBC (Bld) [#/Vol] 5.15 10*6/uL Normal 4.2-5.4 [facility] Comment on above: Performed By: #### L 500.4050, L100.0100 ####[facility] [address] [place], [address] RDW SD 45.5 fl High 35.1-43.9 [facility] Comment on above: Performed By: #### L 500.4050, L100.0100 ####[facility] [address] [place], [address] WBC (Bld) [#/Vol] 6.8 10*3/uL Normal 4.4-11.0 [facility] Comment on above: Performed By: #### L 500.4050, L100.0100 ####[facility] [address] [place], [address] Carbon dioxide measurementOr dered By: Diana Ramos on 05-29-2024 CO2 [Moles/Vol] 27.0 mmol/L 21.0-32.0 [facility] Chloride measurementOrdered By: Diana Ramos on 05-29-2024 Chloride [Moles/Vol] 107 mmol/L 98-107 [facility] Comprehensive Metabolic Prof ilon 05-29-2024 Albumin [Mass/Vol] 3.7 g/dL Normal 3.2-5.0 [facility] Comment on above: Performed By: #### L 500.4050, L100.0100 ####[facility] [address] [place], [address] Albumin/Globulin [Mass ratio] 0.9 {ratio} Normal 0.9-2.4 [facility] Comment on above: Performed By: #### L 500.4050, L100.0100 ####[facility] [address] [place], [address] ALK P 97 U/L Normal 45-117 [facility] Comment on above: Performed By: #### L 500.4050, L100.0100 ####[facility] [address] [place], [address] ALT [Catalytic activity/Vol] 16 U/L Normal 13-56 [facility] Comment on above: Performed By: #### L 500.4050, L100.0100 ####[facility] [address] [place], [address] AST [Catalytic activity/Vol] 10 U/L Low 15-37 [facility] Comment on above: Performed By: #### L 500.4050, L100.0100 ####[facility] [address] [place], [address] Bilirubin [Mass/Vol] 0.40 mg/dL Normal 0.20-1.00 [facility] Comment on above: Result Comment: For patients on eltrombopag therapy, use of Dimension [place] TBIL is not recommended. Performed By: #### L 500.4050, L100.0100 ####[facility] [address] [place], [address] BUN/CRE 23.8 RATIO High 10-20 [facility] Comment on above: Performed By: #### L 500.4050, L100.0100 ####[facility] [address] [place], [address] CA,Total 9.8 mg/dL Normal 8.5-10.1 [facility] Comment on above: Performed By: #### L 500.4050, L100.0100 ####[facility] [address] [place], [address] Chloride [Moles/Vol] 107 mmol/L Normal 98-107 [facility] Comment on above: Performed By: #### L 500.4050, L100.0100 ####[facility] [address] [place], [address] CO2 [Moles/Vol] 27.0 mmol/L Normal 21.0-32.0 [facility] Comment on above: Performed By: #### L 500.4050, L100.0100 ####[facility] [address] [place], [address] Creatinine [Mass/Vol] 0.80 mg/dL Normal 0.55-1.02 [facility] Comment on above: Result Comment: The validity of the calculated GFR GFRAA in patients over70 years has not been determined. Clinical correlation isessential. Performed By: #### L 500.4050, L100.0100 ####[facility] [address] [place], [address] EST GFR - AA 94 mL/min Normal >60 [facility] Comment on above: Result Comment: Afri can [place] GFR Calc Performed By: #### L 500.4050, L100.0100 ####[facility] [address] [place], [address] GAP 6 Normal 5-15 [facility] Comment on above: Performed By: #### L 500.4050, L100.0100 ####[facility] [address] [place], [address] GFR/1.73 sq M.predicted among non-blacks MDRD (S/P/Bld) [Vol rate/Area] 78 mL/min/{1.73_m2} Normal >60 [facility] Comment on above: Result Comment: Non- GFR Calc Performed By: #### L 500.4050, L100.0100 ####[facility] [address] [place], [address] Globulin (S) [Mass/Vol] 4.3 g/dL High 2.2-4.2 [facility] Comment on above: Performed By: #### L 500.4050, L100.0100 ####[facility] [address] [place], [address] Glucose [Mass/Vol] 177 mg/dL High 74-106 [facility] Comment on above: Result Comment: Fast ing Glucose result greater than or equal to 126 mg/dLsuggests DIABETES MELLITUS per A.D.A. criteria. Performed By: #### L 500.4050, L100.0100 ####[facility] [address] [place], [address] Potassium [Moles/Vol] 3.8 mmol/L Normal 3.5-5.1 [facility] Comment on above: Performed By: #### L 500.4050, L100.0100 ####[facility] [address] [place], [address] Sodium [Moles/Vol] 140 mmol/L Normal 136-145 [facility] Comment on above: Performed By: #### L 500.4050, L100.0100 ####[facility] [address] [place], [address] T PROT 8.0 g/dL Normal 6.4-8.2 [facility] Comment on above: Performed By: #### L 500.4050, L100.0100 ####[facility] [address] [place], [place], [address] Urea nitrogen [Mass/Vol] 19 mg/dL High 7-18 [facility] Comment on above: Performed By: #### L 500.4050, L100.0100 ####[facility] [address] [place], [address] Eosinophil percentageOrdered By: Diana Ramos on 05-29-2024 Eosinophils/100 WBC (Bld) 4.6 % 0-5 [facility] Erythrocyte distribution wid th ratioOrdered By: Diaan Ramos on 05-29-2024 Erythrocyte distribution width (RBC) [Ratio] 14.0 % 11.6-14.6 [facility] Erythrocyte distribution wid th standard deviationOrdered By: Diana Ramos on 05-29-2024 Erythrocyte distribution width (RBC) [Entitic vol] 45.5 fL High 35.1-43.9 [facility] Estimated glomerular filtrat ion rate (GFR) AmericanOrdered By: Diana Ramos on 05-29-2024 Estimated GFR (MDRD) Amer 94 mL/min >60 [facility] Comment on above: GFR Calc Glomerular filtration rate ( GFR) estimationOrdered By: Diana Ramos on 05-29-2024 Estimated GFR (MDRD) Non-Af Amer 78 mL/min >60 [facility] Comment on above: Non- GFR Calc Glucose measurementOrdered B y: Diana Ramos on 05-29-2024 Glucose [Mass/Vol] 177 mg/dL High 74-106 [facility] Comment on above: Fasting Glucose resu lt greater than or equal to 126 mg/dL suggests DIABETES MELLITUS per A.D.A. criteria. Hematocrit Auto (Bld) [Volum e fraction]Ordered By: Diana Ramos on 05-29-2024 Hematocrit (Bld) [Volume fraction] 46.3 % 37-47 [facility] Hemoglobin measurementOrdere d By: Diana Ramos on 05-29-2024 Hemoglobin (Bld) [Mass/Vol] 14.6 g/dL 12.0-15.0 [facility] Immature granulocytes/100 WB C Auto (Bld)Ordered By: Diana Ramos on 05-29-2024 Immature granulocytes/100 WBC (Bld) 0.300 % 0.0-0.9 [facility] Comment on above: IG% - Immature Granu locytes (promyelocytes, myelocytes and metamyelocytes) > 1% indicates that a LEFT SHIFT is Present. Laboratory - Chemistry and C hemistry - challengeOrdered By: Diana Ramos on 05-29-2024 AST [Catalytic activity/Vol] 10 U/L Low 15-37 [facility] Lymphocytes Auto (Unsp spec) [#/Vol]Ordered By: Diana Ramos on 05-29-2024 Lymphocytes (Bld) [#/Vol] 1.82 10*3/uL 0.83-4.51 [facility] Lymphocytes/100 WBC Auto (Un sp spec)Ordered By: Diana Ramos on 05-29-2024 Lymphocytes/100 WBC (Bld) 26.9 % 19-41 [facility] MCV (mean corpuscular volume ) determinationOrdered By: Diana Ramos on 05-29-2024 MCV (RBC) [Entitic vol] 89.9 fL 81-99 [facility] Mean corpuscular hemoglobin (MCH) determinationOrdered By: Diana Ramos on 05-29-2024 MCH (RBC) [Entitic mass] 28.3 pg 27.0-32.0 [facility] Mean corpuscular hemoglobin concentration (MCHC) determinationOrdered By: Diana Ramos on 05-29-2024 MCHC (RBC) [Mass/Vol] 31.5 g/dL Low 32-36 [facility] Mean platelet volume determi nationOrdered By: Diana Ramos on 05-29-2024 Platelet mean volume (Bld) [Entitic vol] 10.5 fL 6.2-12.0 [facility] Monocyte percentageOrdered B y: Diana Ramos on 05-29-2024 Monocytes/100 WBC (Bld) 7.5 % 0-10 [facility] Neutrophil percentageOrdered By: Diana Ramos on 05-29-2024 Neutrophils/100 WBC (Bld) 59.8 % 47-70 [facility] Nucleated red blood cell per centageOrdered By: Diana Ramos on 05-29-2024 Nucleated RBC/100 WBC (Bld) [Ratio] 0 % 0-5 [facility] Platelet countOrdered By: Sanaz Ramos on 05-29-2024 Platelets (Bld) [#/Vol] 200 10*3/uL 150-450 [facility] Potassium measurementOrdered By: Diana Ramos on 05-29-2024 Potassium [Moles/Vol] 3.8 mmol/L 3.5-5.1 [facility] RBC Auto (Bld) [#/Vol]Ordere d By: Diana Ramos on 05-29-2024 RBC (Bld) [#/Vol] 5.15 10*6/uL 4.2-5.4 [facility] Serum anion gap measurementO rdered By: Diana Ramos on 05-29-2024 Anion gap [Moles/Vol] 6 mmol/L 5-15 [facility] Serum globulin measurementOr dered By: Diana Ramos on 05-29-2024 Globulin (S) [Mass/Vol] 4.3 g/dL High 2.2-4.2 [facility] Serum or plasma alanine smith otransferase (ALT) measurementOrdered By: Diana Ramos on 05-29-2024 ALT [Catalytic activity/Vol] 16 U/L 13-56 [facility] Serum or plasma albumin jasiel urement (mass/volume)Ordered By: Diana Ramos on 05-29-2024 Albumin [Mass/Vol] 3.7 g/dL 3.2-5.0 [facility] Serum or plasma alkaline quintin sphatase measurementOrdered By: Diana Ramos on 05-29-2024 ALP [Catalytic activity/Vol] 97 U/L 45-117 [facility] Serum or plasma calcium jasiel urement (mass/volume)Ordered By: Diana Ramos on 05-29-2024 Calcium [Mass/Vol] 9.8 mg/dL 8.5-10.1 [facility] Serum or plasma creatinine m easurement (mass/volume)Ordered By: Diana Ramos on 05-29-2024 Creatinine [Mass/Vol] 0.80 mg/dL 0.55-1.02 [facility] Comment on above: The validity of the calculated GFR & GFRAA in patients over 70 years has not been determined. Clinical correlation is essential. Serum or plasma urea nitroge n measurement (mass/volume)Ordered By: Diana Ramos on 05-29-2024 Urea nitrogen [Mass/Vol] 19 mg/dL High 7-18 [facility] Sodium levelOrdered By: Alexia Ramos on 05-29-2024 Sodium [Moles/Vol] 140 mmol/L 136-145 [facility] Total proteinOrdered By: Katarina Ramos on 05-29-2024 Protein [Mass/Vol] 8.0 g/dL 6.4-8.2 [facility] White blood cell (WBC) count Ordered By: Diana Ramos on 05-29-2024 WBC (Bld) [#/Vol] 6.8 10*3/uL 4.4-11.0 [facility] CBC W/Diff, Automatedon 09- Absolute Lymph 1.89 X10 3/uL Normal 0.83-4.51 [facility] Comment on above: Performed By: #### L 500.4050, L100.0100 ####[facility] [address] [place], [address] Absolute Neut 3.4 X10 3/uL Normal 2.0-7.7 [facility] Comment on above: Performed By: #### L 500.4050, L100.0100 ####[facility] [address] [place], [address] Basophils/100 WBC (Bld) 1.0 % Normal 0-1 [facility] Comment on above: Performed By: #### L 500.4050, L100.0100 ####[facility] [address] [place], [address] Eosinophils/100 WBC (Bld) 5.9 % High 0-5 [facility] Comment on above: Performed By: #### L 500.4050, L100.0100 ####[facility] [address] [place], [address] Erythrocyte distribution width (RBC) [Ratio] 14.4 % Normal 11.6-14.6 [facility] Comment on above: Performed By: #### L 500.4050, L100.0100 ####[facility] [address] [place], [address] Hematocrit (Bld) [Volume fraction] 45.9 % Normal 37-47 [facility] Comment on above: Performed By: #### L 500.4050, L100.0100 ####[facility] [address] [place], [address] Hemoglobin (Bld) [Mass/Vol] 14.3 g/dL Normal 12.0-15.0 [facility] Comment on above: Performed By: #### L 500.4050, L100.0100 ####[facility] [address] [place], [address] IG% 0.500 Normal 0.0-0.9 [facility] Comment on above: Result Comment: IG% - Immature Granulocytes (promyelocytes, myelocytes andmetamyelocytes) > 1% indicates that a LEFT SHIFT is Present. Performed By: #### L 500.4050, L100.0100 ####[facility] [address] [place], [address] Lymphocytes/100 WBC (Bld) 30.0 % Normal 19-41 [facility] Comment on above: Performed By: #### L 500.4050, L100.0100 ####[facility] [address] [place], [address] MCH (RBC) [Entitic mass] 27.7 pg Normal 27.0-32.0 [facility] Comment on above: Performed By: #### L 500.4050, L100.0100 ####[facility] [address] [place], [address] MCHC (RBC) [Mass/Vol] 31.2 g/dL Low 32-36 [facility] Comment on above: Performed By: #### L 500.4050, L100.0100 ####[facility] [address] [place], [address] MCV (RBC) [Entitic vol] 89.0 fL Normal 81-99 [facility] Comment on above: Performed By: #### L 500.4050, L100.0100 ####[facility] [address] [place], [address] Monocytes/100 WBC (Bld) 8.4 % Normal 0-10 [facility] Comment on above: Performed By: #### L 500.4050, L100.0100 ####[facility] [address] [place], [address] Neutrophils/100 WBC (Bld) 54.2 % Normal 47-70 [facility] Comment on above: Performed By: #### L 500.4050, L100.0100 ####[facility] [address] [place], [address] Nucleated RBC (Bld) [#/Vol] 0 10*3/uL Normal 0-5 [facility] Comment on above: Performed By: #### L 500.4050, L100.0100 ####[facility] [address] [place], [address] Platelet mean volume (Bld) [Entitic vol] 9.9 fL Normal 6.2-12.0 [facility] Comment on above: Performed By: #### L 500.4050, L100.0100 ####[facility] [address] [place], [address] Platelets (Bld) [#/Vol] 249 10*3/uL Normal 150-450 [facility] Comment on above: Performed By: #### L 500.4050, L100.0100 ####[facility] [address] [place], [address] RBC (Bld) [#/Vol] 5.16 10*6/uL Normal 4.2-5.4 [facility] Comment on above: Performed By: #### L 500.4050, L100.0100 ####[facility] [address] [place], [address] RDW SD 46.7 fl High 35.1-43.9 [facility] Comment on above: Performed By: #### L 500.4050, L100.0100 ####[facility] [address] [place], [address] WBC (Bld) [#/Vol] 6.3 10*3/uL Normal 4.4-11.0 [facility] Comment on above: Performed By: #### L 500.4050, L100.0100 ####[facility] [address] [place], [address] Comprehensive Metabolic Prof [facility] 03-10-2024 Albumin [Mass/Vol] 3.4 g/dL Normal 3.2-5.0 [facility] Comment on above: Performed By: #### L 500.4050, L100.0100 ####[facility] [address] [place], [address] Albumin/Globulin [Mass ratio] 0.8 {ratio} Low 0.9-2.4 [facility] Comment on above: Performed By: #### L 500.4050, L100.0100 ####[facility] [address] [place], [address] ALK P 104 U/L Normal 45-117 [facility] Comment on above: Performed By: #### L 500.4050, L100.0100 ####[facility] [address] [place], [address] ALT [Catalytic activity/Vol] 14 U/L Normal 13-56 [facility] Comment on above: Performed By: #### L 500.4050, L100.0100 ####[facility] [address] [place], [address] AST [Catalytic activity/Vol] 9 U/L Low 15-37 [facility] Comment on above: Performed By: #### L 500.4050, L100.0100 ####[facility] [address] [place], [address] Bilirubin [Mass/Vol] 0.50 mg/dL Normal 0.20-1.00 [facility] Comment on above: Result Comment: For patients on eltrombopag therapy, use of Dimension [place] TBIL is not recommended. Performed By: #### L 500.4050, L100.0100 ####[facility] [address] [place], [address] BUN/CRE 22.2 RATIO High 10-20 [facility] Comment on above: Performed By: #### L 500.4050, L100.0100 ####[facility] [address] [place], [address] CA,Total 9.6 mg/dL Normal 8.5-10.1 [facility] Comment on above: Performed By: #### L 500.4050, L100.0100 ####[facility] [address] [place], [address] Chloride [Moles/Vol] 104 mmol/L Normal 98-107 [facility] Comment on above: Performed By: #### L 500.4050, L100.0100 ####[facility] [address] [place], [address] CO2 [Moles/Vol] 27.0 mmol/L Normal 21.0-32.0 [facility] Comment on above: Performed By: #### L 500.4050, L100.0100 ####[facility] [address] [place], [address] Creatinine [Mass/Vol] 0.85 mg/dL Normal 0.55-1.02 [facility] Comment on above: Result Comment: The validity of the calculated GFR GFRAA in patients over70 years has not been determined. Clinical correlation isessential. Performed By: #### L 500.4050, L100.0100 ####[facility] [address] [place], [address] EST GFR - AA 87 mL/min Normal >60 [facility] Comment on above: Result Comment: Afri can Austrian GFR Calc Performed By: #### L 500.4050, L100.0100 ####[facility] [address] [place], [address] GAP 6 Normal 5-15 [facility] Comment on above: Performed By: #### L 500.4050, L100.0100 ####[facility] [address] [place], [address] GFR/1.73 sq M.predicted among non-blacks MDRD (S/P/Bld) [Vol rate/Area] 72 mL/min/{1.73_m2} Normal >60 [facility] Comment on above: Result Comment: Non- GFR Calc Performed By: #### L 500.4050, L100.0100 ####[facility] [address] [place], [address] Globulin (S) [Mass/Vol] 4.4 g/dL High 2.2-4.2 [facility] Comment on above: Performed By: #### L 500.4050, L100.0100 ####[facility] [address] [place], [address] Glucose [Mass/Vol] 147 mg/dL High 74-106 [facility] Comment on above: Result Comment: Fast ing Glucose result greater than or equal to 126 mg/dLsuggests DIABETES MELLITUS per A.D.A. criteria. Performed By: #### L 500.4050, L100.0100 ####[facility] [address] [place], [address] Potassium [Moles/Vol] 4.0 mmol/L Normal 3.5-5.1 [facility] Comment on above: Performed By: #### L 500.4050, L100.0100 ####[facility] [address] [place], [address] Sodium [Moles/Vol] 137 mmol/L Normal 136-145 [facility] Comment on above: Performed By: #### L 500.4050, L100.0100 ####[facility] [address] [place], [address] T PROT 7.8 g/dL Normal 6.4-8.2 [facility] Comment on above: Performed By: #### L 500.4050, L100.0100 ####[facility] [address] [place], [address] Urea nitrogen [Mass/Vol] 19 mg/dL High 7-18 [facility] Comment on above: Performed By: #### L 500.4050, L100.0100 ####[facility] [address] [place], [address] ANCAon 02-05-2024 Atypical pANCA <1:20 Normal Neg:<1:20 [facility] Comment on above: Order Comment: Test( s) 061483-Akwaju, Serum or Plasmawas developed and its performance characteristicsdetermined by [facility]. It has not been cleared or approvedby the Food and Drug Administration.N Result Comment: The atypical pANCA pattern has been observed in asignificant percentage of patients with ulcerative colitis,primary sclerosing cholangitis and autoimmune hepatitis. Performed By: #### L 3100.5440, L503.6550, L2100.0000, L803.2200, L3400.3800, L101.9900, L503.6030, L501.6710, L3100.3425, L3300.1200, L3300.0100, L3410.2350, L800.1280, L3000.0375, L3400.0700 ####[facility] [address] [place], [place], [id number] Cytoplasmic Ab <1:20 Normal Neg:<1:20 [facility] Comment on above: Order Comment: Test( s) 316768-Czxzbz, Serum or Plasmawas developed and its performance characteristicsdetermined by [facility]. It has not been cleared or approvedby the Food and Drug Administration.N Performed By: #### L 3100.5440, L503.6550, L2100.0000, L803.2200, L3400.3800, L101.9900, L503.6030, L501.6710, L3100.3425, L3300.1200, L3300.0100, L3410.2350, L800.1280, L3000.0375, L3400.0700 ####[facility] [address] [place], [place], [id number] Perinuclear Ab. <1:20 Normal Neg:<1:20 [facility] Comment on above: Order Comment: Test( s) 016315-Qobkem, Serum or Plasmawas developed and its performance characteristicsdetermined by [facility]. It has not been cleared or approvedby the Food and Drug Administration.N Result Comment: The presence of positive fluorescence exhibiting P-ANCA orC-ANCA patterns alone is not specific for the diagnosis ofWegener's Granulomatosis (WG) or microscopic polyangiitis.Decisions about treatment should not be based solely onANCA IFA results. The International ANCA Group Consensusrecommends follow up testing of positive sera with both AL-3 and MPO-ANCA enzyme immunoassays. As many as 5% serumsamples are positive only by EIA. Ref. AM J Clin Hqwymt8013;111:507-513. Performed By: #### L 3100.5440, L503.6550, L2100.0000, L803.2200, L3400.3800, L101.9900, L503.6030, L501.6710, L3100.3425, L3300.1200, L3300.0100, L3410.2350, L800.1280, L3000.0375, L3400.0700 ####[facility] [address] [place], [place], [phone] Anti-Smooth Muscle ABSon ANTISMOOTH MUSC 18 Units Normal 0-19 [facility] Comment on above: Order Comment: Test( s) 405354-Tbunaa, Serum or Plasmawas developed and its performance characteristicsdetermined by [facility]. It has not been cleared or approvedby [...] L3100.3425, L3300.1200, L3300.0100, L3410.2350, L800.1280, L3000.0375, L3400.0700 ####[facility] [address] [place], [place], [phone] Celiac AB,Comprehensiveon ANTIGLIADIN IGA 5 units Normal 0-19 [facility] Comment on above: Order Comment: Test( s) 589299-Kvejgb, Serum or Plasmawas developed and its performance characteristicsdetermined by [facility]. It has not been cleared or approvedby the Food and Drug Administration.N Result Comment: Nega tive 0 - 19 Weak Positive 20 - 30 Moderate to Strong Positive >30 Performed By: #### L 3100.5440, L503.6550, L2100.0000, L803.2200, L3400.3800, L101.9900, L503.6030, L501.6710, L3100.3425, L3300.1200, L3300.0100, L3410.2350, L800.1280, L3000.0375, L3400.0700 ####[facility] [address] [place], [address] ANTIGLIADIN IGG 3 units Normal 0-19 [facility] Comment on above: Order Comment: Test( s) 135838-Yayhqe, Serum or Plasmawas developed and its performance characteristicsdetermined by [facility]. It has not been cleared or approvedby the Food and Drug Administration.N Result Comment: Nega tive 0 - 19 Weak Positive 20 - 30 Moderate to Strong Positive >30 Performed By: #### L 3100.5440, L503.6550, L2100.0000, L803.2200, L3400.3800, L101.9900, L503.6030, L501.6710, L3100.3425, L3300.1200, L3300.0100, L3410.2350, L800.1280, L3000.0375, L3400.0700 ####[facility] [address] [place], [address] ENDOMYSIAL IGA Negative Normal Negative [facility] Comment on above: Order Comment: Test( s) 534479-Nbfxhx, Serum or Plasmawas developed and its performance characteristicsdetermined by [facility]. It has not been cleared or approvedby the Food and Drug Administration.N Performed By: #### L 3100.5440, L503.6550, L2100.0000, L803.2200, L3400.3800, L101.9900, L503.6030, L501.6710, L3100.3425, L3300.1200, L3300.0100, L3410.2350, L800.1280, L3000.0375, L3400.0700 ####[facility] [address] [place], [address] tTG IGA <2 Normal 0-3 [facility] Comment on above: Order Comment: Test( s) 050792-Fephii, Serum or Plasmawas developed and its performance characteristicsdetermined by [facility]. It has not been cleared or approvedby [...] L3100.3425, L3300.1200, L3300.0100, L3410.2350, L800.1280, L3000.0375, L3400.0700 ####[facility] [address] [facility] [place], [address] tTG IGG 4 U/mL Normal 0-5 [facility] Comment on above: Order Comment: Test( s) 552472-Bvfwev, Serum or Plasmawas developed and its performance characteristicsdetermined by [facility]. It has not been cleared or approvedby the Food and Drug Administration.N Result Comment: Nega tive 0 - 5 Weak Positive 6 - 9 Positive >9 Performed By: #### L 3100.5440, L503.6550, L2100.0000, L803.2200, L3400.3800, L101.9900, L503.6030, L501.6710, L3100.3425, L3300.1200, L3300.0100, L3410.2350, L800.1280, L3000.0375, L3400.0700 ####[facility] [address] [facility] [place], [place], [address] Ceruloplasminon 02-05-2024 CERULOPLASMIN 33.9 mg/dL Normal 19.0-39.0 [facility] Comment on above: Order Comment: Test( s) 500431-Gaumyc, Serum or Plasmawas developed and its performance characteristicsdetermined by [facility]. It has not been cleared or approvedby the Food and Drug Administration.N Performed By: #### L 3100.5440, L503.6550, L2100.0000, L803.2200, L3400.3800, L101.9900, L503.6030, L501.6710, L3100.3425, L3300.1200, L3300.0100, L3410.2350, L800.1280, L3000.0375, L3400.0700 ####[facility] [address] [place], [place], [phone] Copper, Serum or Plasmaon COPPER, SERUM 146 ug/dL Normal 80-158 [facility] Comment on above: Order Comment: Test( s) 256597-Iizsfl, Serum or Plasmawas developed and its performance characteristicsdetermined by [facility]. It has not been cleared or approvedby the Food and Drug Administration.N Result Comment: Dete ction Limit = 5 Performed By: #### L 3100.5440, L503.6550, L2100.0000, L803.2200, L3400.3800, L101.9900, L503.6030, L501.6710, L3100.3425, L3300.1200, L3300.0100, L3410.2350, L800.1280, L3000.0375, L3400.0700 ####[facility] [address] [place], [place], [phone] Hepatitis Panel Acuteon 01-26 HEP B CORE,IgM Negative Normal Negative [facility] Comment on above: Order Comment: Test( s) 884206-Sonotd, Serum or Plasmawas developed and its performance characteristicsdetermined by [facility]. It has not been cleared or approvedby the Food and Drug Administration.N Performed By: #### L 3100.5440, L503.6550, L2100.0000, L803.2200, L3400.3800, L101.9900, L503.6030, L501.6710, L3100.3425, L3300.1200, L3300.0100, L3410.2350, L800.1280, L3000.0375, L3400.0700 ####[facility] [address] [place], [place], [phone] HEP B SURF AG Negative Normal Negative [facility] Comment on above: Order Comment: Test( s) 677009-Xppfyw, Serum or Plasmawas developed and its performance characteristicsdetermined by [facility]. It has not been cleared or approvedby the Food and Drug Administration.N Performed By: #### L 3100.5440, L503.6550, L2100.0000, L803.2200, L3400.3800, L101.9900, L503.6030, L501.6710, L3100.3425, L3300.1200, L3300.0100, L3410.2350, L800.1280, L3000.0375, L3400.0700 ####[facility] [address] [place], [address] HEP C VIRUS AB Non-Reactive Normal Non Reactive [facility] Comment on above: Order Comment: Test( s) 397536-Aiqvjo, Serum or Plasmawas developed and its performance characteristicsdetermined by [facility]. It has not been cleared or approvedby the Food and Drug Administration.N Performed By: #### L 3100.5440, L503.6550, L2100.0000, L803.2200, L3400.3800, L101.9900, L503.6030, L501.6710, L3100.3425, L3300.1200, L3300.0100, L3410.2350, L800.1280, L3000.0375, L3400.0700 ####[facility] [address] [place], [place], [address] HEPATITIS A-IgM Negative Normal Negative [facility] Comment on above: Order Comment: Test( s) 379064-Uzrjrw, Serum or Plasmawas developed and its performance characteristicsdetermined by [facility]. It has not been cleared or approvedby the Food and Drug Administration.N Performed By: #### L 3100.5440, L503.6550, L2100.0000, L803.2200, L3400.3800, L101.9900, L503.6030, L501.6710, L3100.3425, L3300.1200, L3300.0100, L3410.2350, L800.1280, L3000.0375, L3400.0700 ####[facility] [address] [place], [place], [phone] ELI + Protein Elect, Serumon 02-05-2024 Albumin [Mass/Vol] 3.2 g/dL Normal 2.9-4.4 [facility] Comment on above: Order Comment: Test( s) 344208-Uvrclf, Serum or Plasmawas developed and its performance characteristicsdetermined by [facility]. It has not been cleared or approvedby the Food and Drug Administration.N Performed By: #### L 3100.5440, L503.6550, L2100.0000, L803.2200, L3400.3800, L101.9900, L503.6030, L501.6710, L3100.3425, L3300.1200, L3300.0100, L3410.2350, L800.1280, L3000.0375, L3400.0700 ####[facility] [address] [place], [place], [phone] Albumin/Globulin [Mass ratio] 0.9 {ratio} Normal 0.7-1.7 [facility] Comment on above: Order Comment: Test( s) 796724-Vqainy, Serum or Plasmawas developed and its performance characteristicsdetermined by [facility]. It has not been cleared or approvedby the Food and Drug Administration.N Performed By: #### L 3100.5440, L503.6550, L2100.0000, L803.2200, L3400.3800, L101.9900, L503.6030, L501.6710, L3100.3425, L3300.1200, L3300.0100, L3410.2350, L800.1280, L3000.0375, L3400.0700 ####[facility] [address] [facility] [place], [place], [phone] MOXWG-7-AEHE 0.3 g/dL Normal 0.0-0.4 [facility] Comment on above: Order Comment: Test( s) 814978-Crmdvh, Serum or Plasmawas developed and its performance characteristicsdetermined by [facility]. It has not been cleared or approvedby the Food and Drug Administration.N Performed By: #### L 3100.5440, L503.6550, L2100.0000, L803.2200, L3400.3800, L101.9900, L503.6030, L501.6710, L3100.3425, L3300.1200, L3300.0100, L3410.2350, L800.1280, L3000.0375, L3400.0700 ####[facility] [address] [facility] [place], [address] CLLAK-1-RYWL 1.0 g/dL Normal 0.4-1.0 [facility] Comment on above: Order Comment: Test( s) 721955-Xcfvyw, Serum or Plasmawas developed and its performance characteristicsdetermined by [facility]. It has not been cleared or approvedby the Food and Drug Administration.N Performed By: #### L 3100.5440, L503.6550, L2100.0000, L803.2200, L3400.3800, L101.9900, L503.6030, L501.6710, L3100.3425, L3300.1200, L3300.0100, L3410.2350, L800.1280, L3000.0375, L3400.0700 ####[facility] [address] [place], [address] BETA GLOBULIN 1.4 g/dL High 0.7-1.3 [facility] Comment on above: Order Comment: Test( s) 536036-Pfawyk, Serum or Plasmawas developed and its performance characteristicsdetermined by [facility]. It has not been cleared or approvedby the Food and Drug Administration.N Performed By: #### L 3100.5440, L503.6550, L2100.0000, L803.2200, L3400.3800, L101.9900, L503.6030, L501.6710, L3100.3425, L3300.1200, L3300.0100, L3410.2350, L800.1280, L3000.0375, L3400.0700 ####[facility] [address] [place], [address] GAMMA GLOBULIN 0.9 g/dL Normal 0.4-1.8 [facility] Comment on above: Order Comment: Test( s) 566975-Sskunp, Serum or Plasmawas developed and its performance characteristicsdetermined by [facility]. It has not been cleared or approvedby the Food and Drug Administration.N Performed By: #### L 3100.5440, L503.6550, L2100.0000, L803.2200, L3400.3800, L101.9900, L503.6030, L501.6710, L3100.3425, L3300.1200, L3300.0100, L3410.2350, L800.1280, L3000.0375, L3400.0700 ####[facility] [address] [place], [address] Globulin (S) [Mass/Vol] 3.7 g/dL Normal 2.2-3.9 [facility] Comment on above: Order Comment: Test( s) 535156-Ulihqq, Serum or Plasmawas developed and its performance characteristicsdetermined by [facility]. It has not been cleared or approvedby the Food and Drug Administration.N Performed By: #### L 3100.5440, L503.6550, L2100.0000, L803.2200, L3400.3800, L101.9900, L503.6030, L501.6710, L3100.3425, L3300.1200, L3300.0100, L3410.2350, L800.1280, L3000.0375, L3400.0700 ####[facility] [address] [place], [place], [address] ELI RESULT,S Comment Abnormal . [facility] Comment on above: Order Comment: Test( s) 030552-Fifocv, Serum or Plasmawas developed and its performance characteristicsdetermined by [facility]. It has not been cleared or approvedby the Food and Drug Administration.N Result Comment: Immu nofixation shows IgG monoclonal protein with kappalight chain specificity. PLEASE NOTE: Samples from patients receiving DARZALEX(R)(daratumumab) or SARCLISA(R)(isatuximab-[facility]) treatmentcan appear as an "IgG kappa" and mask a complete response(CR). If this patient is receiving these therapies, thisIFE assay interference can be removed by ordering testnumber [id number]-"Immunofixation, Daratumumab-Specific,Serum" or 839370-"Immunofixation, Isatuximab-Specific,Serum" and submitting a new sample for testing or bycalling the lab to add this test to the current sample. Performed By: #### L 3100.5440, L503.6550, L2100.0000, L803.2200, L3400.3800, L101.9900, L503.6030, L501.6710, L3100.3425, L3300.1200, L3300.0100, L3410.2350, L800.1280, L3000.0375, L3400.0700 ####[facility] [address] [place], [place], [phone] IMMUNOGLOB A QN 457 mg/dL High 87-352 [facility] Comment on above: Order Comment: Test( s) 013559-Ldimfi, Serum or Plasmawas developed and its performance characteristicsdetermined by [facility]. It has not been cleared or approvedby the Food and Drug Administration.N Performed By: #### L 3100.5440, L503.6550, L2100.0000, L803.2200, L3400.3800, L101.9900, L503.6030, L501.6710, L3100.3425, L3300.1200, L3300.0100, L3410.2350, L800.1280, L3000.0375, L3400.0700 ####[facility] [address] [facility] [address] [place], [place], [phone] IMMUNOGLOB G QN 1075 mg/dL Normal 586-1602 [facility] Comment on above: Order Comment: Test( s) 873710-Pbitxe, Serum or Plasmawas developed and its performance characteristicsdetermined by [facility]. It has not been cleared or approvedby the Food and Drug Administration.N Performed By: #### L 3100.5440, L503.6550, L2100.0000, L803.2200, L3400.3800, L101.9900, L503.6030, L501.6710, L3100.3425, L3300.1200, L3300.0100, L3410.2350, L800.1280, L3000.0375, L3400.0700 ####[facility] [address] [place], [place], [phone] IMMUNOGLOB M QN 30 mg/dL Normal 26-217 [facility] Comment on above: Order Comment: Test( s) 562323-Pxadmt, Serum or Plasmawas developed and its performance characteristicsdetermined by [facility]. It has not been cleared or approvedby the Food and Drug Administration.N Performed By: #### L 3100.5440, L503.6550, L2100.0000, L803.2200, L3400.3800, L101.9900, L503.6030, L501.6710, L3100.3425, L3300.1200, L3300.0100, L3410.2350, L800.1280, L3000.0375, L3400.0700 ####[facility] [address] [place], [address] M-Min Comment: Normal Not Observed [facility] Comment on above: Order Comment: Test( s) 235766-Mbsfkh, Serum or Plasmawas developed and its performance characteristicsdetermined by [facility]. It has not been cleared or approvedby the Food and Drug Administration.N Result Comment: Due to the small quantity of monoclonal protein, unable toquantitate the M-spike. Performed By: #### L 3100.5440, L503.6550, L2100.0000, L803.2200, L3400.3800, L101.9900, L503.6030, L501.6710, L3100.3425, L3300.1200, L3300.0100, L3410.2350, L800.1280, L3000.0375, L3400.0700 ####[facility] [address] [place], [address] NOTE: Comment Normal . [facility] Comment on above: Order Comment: Test( s) 480654-Tnwigg, Serum or Plasmawas developed and its performance characteristicsdetermined by [facility]. It has not been cleared or approvedby the Food and Drug Administration.N Result Comment: Prot ein electrophoresis scan will follow via computer,mail, or wall mirror department supervisor delivery. Performed By: #### L 3100.5440, L503.6550, L2100.0000, L803.2200, L3400.3800, L101.9900, L503.6030, L501.6710, L3100.3425, L3300.1200, L3300.0100, L3410.2350, L800.1280, L3000.0375, L3400.0700 ####[facility] [address] [place], [address] Protein [Mass/Vol] 6.9 g/dL Normal 6.0-8.5 [facility] Comment on above: Order Comment: Test( s) 690759-Ddnbld, Serum or Plasmawas developed and its performance characteristicsdetermined by [facility]. It has not been cleared or approvedby the Food and Drug Administration.N Performed By: #### L 3100.5440, L503.6550, L2100.0000, L803.2200, L3400.3800, L101.9900, L503.6030, L501.6710, L3100.3425, L3300.1200, L3300.0100, L3410.2350, L800.1280, L3000.0375, L3400.0700 ####[facility] [address] [place], [address] L2100.0000on 02-05-2024 ACCA 72 units Normal 0-90 [facility] Comment on above: Order Comment: Test( s) 497793-Vmhwfx, Serum or Plasmawas developed and its performance characteristicsdetermined by [facility]. It has not been cleared or approvedby the Food and Drug Administration.N Result Comment: Nega tive: <80 Equivocal: 80-90 Positive: >90 Performed By: #### L 3100.5440, L503.6550, L2100.0000, L803.2200, L3400.3800, L101.9900, L503.6030, L501.6710, L3100.3425, L3300.1200, L3300.0100, L3410.2350, L800.1280, L3000.0375, L3400.0700 ####[facility] [address] [place], [address] ALCA 26 units Normal 0-60 [facility] Comment on above: Order Comment: Test( s) 557846-Zsqhod, Serum or Plasmawas developed and its performance characteristicsdetermined by [facility]. It has not been cleared or approvedby the Food and Drug Administration.N Result Comment: Nega tive:<55 Equivocal: 55-60 Positive: >60 Performed By: #### L 3100.5440, L503.6550, L2100.0000, L803.2200, L3400.3800, L101.9900, L503.6030, L501.6710, L3100.3425, L3300.1200, L3300.0100, L3410.2350, L800.1280, L3000.0375, L3400.0700 ####[facility] [address] [place], [place], [address] AMCA 144 units High 0-100 [facility] Comment on above: Order Comment: Test( s) 447184-Kquzvn, Serum or Plasmawas developed and its performance characteristicsdetermined by [facility]. It has not been cleared or approvedby the Food and Drug Administration.N Result Comment: Nega tive: <90 Equivocal: 90-100 Positive: >100 This test was developed and its performance characteristics determined by [facility]. It has not been cleared or approved by the Food and Drug Administration. The FDA has determined that such clearance or approval is not necessary. Performed By: #### L 3100.5440, L503.6550, L2100.0000, L803.2200, L3400.3800, L101.9900, L503.6030, L501.6710, L3100.3425, L3300.1200, L3300.0100, L3410.2350, L800.1280, L3000.0375, L3400.0700 ####[facility] [address] [facility] [address] [address] [place], [place], [address] Atypical pANCA Negative Normal Negative [facility] Comment on above: Order Comment: Test( s) 207769-Fqkfkk, Serum or Plasmawas developed and its performance characteristicsdetermined by [facility]. It has not been cleared or approvedby the Food and Drug Administration.N Performed By: #### L 3100.5440, L503.6550, L2100.0000, L803.2200, L3400.3800, L101.9900, L503.6030, L501.6710, L3100.3425, L3300.1200, L3300.0100, L3410.2350, L800.1280, L3000.0375, L3400.0700 ####[facility] [address] [place], [address] COMMENT Comment Normal . [facility] Comment on above: Order Comment: Test( s) 282486-Jpgnam, Serum or Plasmawas developed and its performance characteristicsdetermined by [facility]. It has not been cleared or approvedby the Food and Drug Administration.N Result Comment: Sugg estive of Crohn's Disease. Pattern is not conclusivefor disease behavior risk stratification. Performed By: #### L 3100.5440, L503.6550, L2100.0000, L803.2200, L3400.3800, L101.9900, L503.6030, L501.6710, L3100.3425, L3300.1200, L3300.0100, L3410.2350, L800.1280, L3000.0375, L3400.0700 ####[facility] [address] [place], [address] Result Comment: Not infected with HCV unless early or acute infection issuspected (which may be delayed in an immunocompromisedindividual), or other evidence exists to indicate HCVinfection. Diane 15 units Normal 0-50 [facility] Comment on above: Order Comment: Test( s) 392765-Zwjlir, Serum or Plasmawas developed and its performance characteristicsdetermined by [employer]. It has not been cleared or approvedby the Food and Drug Administration.N Result Comment: Nega tive: <45 Equivocal: 45-50 Positive: >50 Performed By: #### L 3100.5440, L503.6550, L2100.0000, L803.2200, L3400.3800, L101.9900, L503.6030, L501.6710, L3100.3425, L3300.1200, L3300.0100, L3410.2350, L800.1280, L3000.0375, L3400.0700 ####[facility] [address] [place], [place], [phone] Transferrinon 02-05-2024 Transferrin [Mass/Vol] 290 mg/dL Normal 192-364 [facility] Comment on above: Order Comment: Test( s) [id number]-Naeesy, Serum or Plasmawas developed and its performance characteristicsdetermined by [employer]. It has not been cleared or approvedby the Food and Drug Administration.N Result Comment: Perf ormed at: [facility] [employer] [id number] Director: Luis Felipe Wong PhD, Phone: [phone] at: [facility] [employer] [id number] Director: Aurelia Child MD, Phone: [phone] Performed By: #### L 3100.5440, L503.6550, L2100.0000, L803.2200, L3400.3800, L101.9900, L503.6030, L501.6710, L3100.3425, L3300.1200, L3300.0100, L3410.2350, L800.1280, L3000.0375, L3400.0700 ####[facility] [address] [place], [place], [phone] MARITZA Comprehensive Panelon MARITZA TABLE Comment Normal . [facility] Comment on above: Result Comment: Auto antibody Disease Association -------- Condition Frequency ---------Antinuclear Antibody, SLE, mixed connectiveDirect (MARITZA-D) tissue diseases ---------dsDNA SLE 40 - 60% ---------Chromatin Drug induced SLE 90% SLE 48 - 97% ---------SSA (Ro) SLE 25 - 35% Sjogren's Syndrome 40 - 70% Lupus 100% ---------SSB (La) SLE 10% Sjogren's Syndrome 30% ---------Sm (anti-Rivera) SLE 15 - 30% ---------TAXI TRUCK [employer]IVER Mixed Connective Tissue Disease 95%(U1 nRNP, SLE 30 - 50%anti-ribonucleoprotein) Polymyositis and/or Dermatomyositis 20% ---------Scl-70 (antiDNA Scleroderma (diffuse) 20 - 35%topoisomerase) Crest 13% ---------Dinah-1 Polymyositis and/or Dermatomyositis 20 - 40% ---------Centromere B Scleroderma - Crest variant 80% Performed By: #### L 3100.5440, L503.6550, L2100.0000, L803.2200, L3400.3800, L101.9900, L503.6030, L501.6710, L3100.3425, L3300.1200, L3300.0100, L3410.2350, L800.1280, L3000.0375, L3400.0700 ####[facility] [address] [facility] [place], [place], [phone] ANTI-CENT B AB <0.2 Normal 0.0-0.9 [facility] Comment on above: Performed By: #### L 3100.5440, L503.6550, L2100.0000, L803.2200, L3400.3800, L101.9900, L503.6030, L501.6710, L3100.3425, L3300.1200, L3300.0100, L3410.2350, L800.1280, L3000.0375, L3400.0700 ####[facility] [address] [place], [place], [phone] ANTI-DNA (DS)AB <1 Normal 0-9 [facility] Comment on above: Result Comment: Nega tive <5 Equivocal 5 - 9 Positive >9 Performed By: #### L 3100.5440, L503.6550, L2100.0000, L803.2200, L3400.3800, L101.9900, L503.6030, L501.6710, L3100.3425, L3300.1200, L3300.0100, L3410.2350, L800.1280, L3000.0375, L3400.0700 ####[facility] [address] [place], [place], [phone] ANTI-DINAH-1 <0.2 Normal 0.0-0.9 [facility] Comment on above: Performed By: #### L 3100.5440, L503.6550, L2100.0000, L803.2200, L3400.3800, L101.9900, L503.6030, L501.6710, L3100.3425, L3300.1200, L3300.0100, L3410.2350, L800.1280, L3000.0375, L3400.0700 ####[facility] [address] [place], [address] ANTI-SS-A < 0.2 Normal 0.0-0.9 [facility] Comment on above: Performed By: #### L 3100.5440, L503.6550, L2100.0000, L803.2200, L3400.3800, L101.9900, L503.6030, L501.6710, L3100.3425, L3300.1200, L3300.0100, L3410.2350, L800.1280, L3000.0375, L3400.0700 ####[facility] [address] [place], [address] ANTI-SS-B < 0.2 Normal 0.0-0.9 [facility] Comment on above: Performed By: #### L 3100.5440, L503.6550, L2100.0000, L803.2200, L3400.3800, L101.9900, L503.6030, L501.6710, L3100.3425, L3300.1200, L3300.0100, L3410.2350, L800.1280, L3000.0375, L3400.0700 ####[facility] [address] [place], [address] ANTICHROMATIN <0.2 Normal 0.0-0.9 [facility] Comment on above: Performed By: #### L 3100.5440, L503.6550, L2100.0000, L803.2200, L3400.3800, L101.9900, L503.6030, L501.6710, L3100.3425, L3300.1200, L3300.0100, L3410.2350, L800.1280, L3000.0375, L3400.0700 ####[facility] [address] [place], [place], [phone] ANTISCLERODERM <0.2 Normal 0.0-0.9 [facility] Comment on above: Performed By: #### L 3100.5440, L503.6550, L2100.0000, L803.2200, L3400.3800, L101.9900, L503.6030, L501.6710, L3100.3425, L3300.1200, L3300.0100, L3410.2350, L800.1280, L3000.0375, L3400.0700 ####[facility] [address] 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, [address] RIVERA Ab <0.2 Normal 0.0-0.9 [facility] Comment on above: Performed By: #### L 3100.5440, L503.6550, L2100.0000, L803.2200, L3400.3800, L101.9900, L503.6030, L501.6710, L3100.3425, L3300.1200, L3300.0100, L3410.2350, L800.1280, L3000.0375, L3400.0700 ####[facility] [address] [place], [place], [phone] Anti-Mitochondrial ABon 08-0 ANTIMITOCHON AB <20.0 Normal 0.0-20.0 [facility] Comment on above: Result Comment: Nega tive 0.0 - 20.0 Equivocal 20.1 - 24.9 Positive >24.9Mitochondrial (M2) Antibodies are found in 90-96% ofpatients with primary biliary cirrhosis.Performed at: [facility] [employer] [id number] Director: Luis Felipe Wong PhD, Phone: [phone] Performed By: #### L 3100.5440, L503.6550, L2100.0000, L803.2200, L3400.3800, L101.9900, L503.6030, L501.6710, L3100.3425, L3300.1200, L3300.0100, L3410.2350, L800.1280, L3000.0375, L3400.0700 ####[facility] [address] [place], [place], [phone] 12 Lead EKGon 01-31-2024 12 Lead EKG Normal [facility] Abdomen Limitedon 01-31-2024 Abdomen Limited Normal [facility] Bedside Glucoseon 01-31-2024 FINGERSTICK GLU 225 mg/dL High 74-106 [facility] Comment on above: Result Comment: SARA GEMENT OF PATIENT CARE PER NURSING PROTOCOL Performed By: #### L 501.080 ####[facility] [address] [place], [place], [phone] FINGERSTICK GLU 118 mg/dL High 74-106 [facility] Comment on above: Result Comment: SARA GEMENT OF PATIENT CARE PER NURSING PROTOCOL Performed By: #### L 501.080 ####[facility] [address] [place], [address] FINGERSTICK GLU 126 mg/dL High 74-106 [facility] Comment on above: Result Comment: SARA GEMENT OF PATIENT CARE PER NURSING PROTOCOL Performed By: #### L 501.080 ####[facility] [address] [place], [address] FINGERSTICK GLU 115 mg/dL High 74-106 [facility] Comment on above: Result Comment: SARA GEMENT OF PATIENT CARE PER NURSING PROTOCOL Performed By: #### L 501.080 ####[facility] [address] [place], [address] CRPon 01-31-2024 C-REACTIVE PROT 11.80 mg/L High 0.0-3.0 [facility] Comment on above: Result Comment: C-Re active Protein (CRP) provides useful information for thediagnosis, therapy and monitoring of inflammatory processesand associated diseases. For the evaluation of Relative Riskfor Cardiovascular Disease, a High Sensitivity CRP (HSCRP)should be ordered. Performed By: #### L 3100.5440, L503.6550, L2100.0000, L803.2200, L3400.3800, L101.9900, L503.6030, L501.6710, L3100.3425, L3300.1200, L3300.0100, L3410.2350, L800.1280, L3000.0375, L3400.0700 ####[facility] [address] [place], [address] Discharge Instructionon 080 Discharge Instruction Normal [facility] EGD Reporton 01-31-2024 EGD Report Normal [facility] Erythrocyte Sed Rateon 01-30 SED RATE 38 mm/hr High 0-30 [facility] Comment on above: Performed By: #### L 3100.5440, L503.6550, L2100.0000, L803.2200, L3400.3800, L101.9900, L503.6030, L501.6710, L3100.3425, L3300.1200, L3300.0100, L3410.2350, L800.1280, L3000.0375, L3400.0700 ####[facility] [address] [place], [place], [phone] Ferritinon 01-31-2024 Ferritin [Mass/Vol] 72 ng/mL Normal 8-252 [facility] Comment on above: Performed By: #### L 3100.5440, L503.6550, L2100.0000, L803.2200, L3400.3800, L101.9900, L503.6030, L501.6710, L3100.3425, L3300.1200, L3300.0100, L3410.2350, L800.1280, L3000.0375, L3400.0700 ####[facility] [address] [place], [place], [phone] H Pylori (initial)on 024 H Pylori (initial) Normal [facility] Comment on above: Performed By: #### P H.PYLORI ####[facility] [address] [place], [place], [phone] Iron+Iron Binding Capacityon 01-31-2024 Iron [Mass/Vol] 44 ug/dL Low 50-170 [facility] Comment on above: Performed By: #### L 3100.5440, L503.6550, L2100.0000, L803.2200, L3400.3800, L101.9900, L503.6030, L501.6710, L3100.3425, L3300.1200, L3300.0100, L3410.2350, L800.1280, L3000.0375, L3400.0700 ####[facility] [address] [place], [phone] IRON SATURATION 12.2 Low 15.0-55.0 [facility] Comment on above: Performed By: #### L 3100.5440, L503.6550, L2100.0000, L803.2200, L3400.3800, L101.9900, L503.6030, L501.6710, L3100.3425, L3300.1200, L3300.0100, L3410.2350, L800.1280, L3000.0375, L3400.0700 ####[facility] [address] [place], [address] TIBC 362 ug/dL Normal 250-450 [facility] Comment on above: Performed By: #### L 3100.5440, L503.6550, L2100.0000, L803.2200, L3400.3800, L101.9900, L503.6030, L501.6710, L3100.3425, L3300.1200, L3300.0100, L3410.2350, L800.1280, L3000.0375, L3400.0700 ####[facility] [address] [place], [place], [phone] MR/POSTOP.ANEon 01-31-2024 MR/POSTOP.ANE Normal [facility] MR/UXHUMUSD1dk 01-31-2024 MR/POSTOPAN2 Normal [facility] Surgery Specimen Level Evita 01-31-2024 Surgery Specimen Level IV Normal [facility] Comment on above: Performed By: #### P SUIV ####[facility] [address] [place], [place], [phone] Thyroid Stim Hormone (TSH)on 01-31-2024 TSH 0.16 uIU/mL Low 0.358-3.74 [facility] Comment on above: Performed By: #### L 501.9520 ####[facility] [address] [place], [place], [phone] Bedside Glucoseon 01-30-2024 FINGERSTICK GLU 116 mg/dL High 74-106 [facility] Comment on above: Result Comment: SARA GEMENT OF PATIENT CARE PER NURSING PROTOCOL Performed By: #### L 501.080 ####[facility] [address] [place], [address] FINGERSTICK GLU 126 mg/dL High 74-106 [facility] Comment on above: Result Comment: SARA GEMENT OF PATIENT CARE PER NURSING PROTOCOL Performed By: #### L 501.080 ####[facility] [address] [place], [address] FINGERSTICK GLU 109 mg/dL High 74-106 [facility] Comment on above: Result Comment: SARA GEMENT OF PATIENT CARE PER NURSING PROTOCOL Performed By: #### L 501.080 ####[facility] [address] [place], [address] Bedside Glucoseon 01-29-2024 FINGERSTICK GLU 109 mg/dL High 74-106 [facility] Comment on above: Result Comment: SARA GEMENT OF PATIENT CARE PER NURSING PROTOCOL Performed By: #### L 501.080 ####[facility] [address] [place], [address] FINGERSTICK GLU 116 mg/dL High 74-106 [facility] Comment on above: Result Comment: SARA GEMENT OF PATIENT CARE PER NURSING PROTOCOL Performed By: #### L 501.080 ####[facility] [address] [place], [address] FINGERSTICK GLU 98 mg/dL Normal 74-106 [facility] Comment on above: Result Comment: SARA GEMENT OF PATIENT CARE PER NURSING PROTOCOL Performed By: #### L 501.080 ####[facility] [address] [place], [address] CBC W/Diff, Automatedon 08-0 Absolute Lymph 1.14 X10 3/uL Normal 0.83-4.51 [facility] Comment on above: Performed By: #### L 500.4050, L100.0100 ####[facility] [address] [place], [address] Absolute Neut 4.5 X10 3/uL Normal 2.0-7.7 [facility] Comment on above: Performed By: #### L 500.4050, L100.0100 ####[facility] [address] [place], [address] Basophils/100 WBC (Bld) 0.5 % Normal 0-1 [facility] Comment on above: Performed By: #### L 500.4050, L100.0100 ####[facility] [address] [place], [address] Eosinophils/100 WBC (Bld) 3.8 % Normal 0-5 [facility] Comment on above: Performed By: #### L 500.4050, L100.0100 ####[facility] [address] [place], [address] Erythrocyte distribution width (RBC) [Ratio] 14.6 % Normal 11.6-14.6 [facility] Comment on above: Performed By: #### L 500.4050, L100.0100 ####[facility] [address] [place], [address] Hematocrit (Bld) [Volume fraction] 44.4 % Normal 37-47 [facility] Comment on above: Performed By: #### L 500.4050, L100.0100 ####[facility] [address] [place], [address] Hemoglobin (Bld) [Mass/Vol] 13.9 g/dL Normal 12.0-15.0 [facility] Comment on above: Performed By: #### L 500.4050, L100.0100 ####[facility] [address] [place], [address] IG% 0.200 Normal 0.0-0.9 [facility] Comment on above: Result Comment: IG% - Immature Granulocytes (promyelocytes, myelocytes andmetamyelocytes) > 1% indicates that a LEFT SHIFT is Present. Performed By: #### L 500.4050, L100.0100 ####[facility] [address] [place], [address] Lymphocytes/100 WBC (Bld) 17.9 % Low 19-41 [facility] Comment on above: Performed By: #### L 500.4050, L100.0100 ####[facility] [address] [place], [address] MCH (RBC) [Entitic mass] 27.7 pg Normal 27.0-32.0 [facility] Comment on above: Performed By: #### L 500.4050, L100.0100 ####[facility] [address] [place], [address] MCHC (RBC) [Mass/Vol] 31.3 g/dL Low 32-36 [facility] Comment on above: Performed By: #### L 500.4050, L100.0100 ####[facility] [address] [place], [address] MCV (RBC) [Entitic vol] 88.6 fL Normal 81-99 [facility] Comment on above: Performed By: #### L 500.4050, L100.0100 ####[facility] [address] [place], [address] Monocytes/100 WBC (Bld) 6.9 % Normal 0-10 [facility] Comment on above: Performed By: #### L 500.4050, L100.0100 ####[facility] [address] [place], [address] Neutrophils/100 WBC (Bld) 70.7 % High 47-70 [facility] Comment on above: Performed By: #### L 500.4050, L100.0100 ####[facility] [address] [place], [address] Nucleated RBC (Bld) [#/Vol] 0 10*3/uL Normal 0-5 [facility] Comment on above: Performed By: #### L 500.4050, L100.0100 ####[facility] [address] [place], [address] Platelet mean volume (Bld) [Entitic vol] 9.8 fL Normal 6.2-12.0 [facility] Comment on above: Performed By: #### L 500.4050, L100.0100 ####[facility] [address] [place], [address] Platelets (Bld) [#/Vol] 164 10*3/uL Normal 150-450 [facility] Comment on above: Performed By: #### L 500.4050, L100.0100 ####[facility] [address] [place], [address] RBC (Bld) [#/Vol] 5.01 10*6/uL Normal 4.2-5.4 [facility] Comment on above: Performed By: #### L 500.4050, L100.0100 ####[facility] [address] [place], [address] RDW SD 46.6 fl High 35.1-43.9 [facility] Comment on above: Performed By: #### L 500.4050, L100.0100 ####[facility] [address] [place], [address] WBC (Bld) [#/Vol] 6.4 10*3/uL Normal 4.4-11.0 [facility] Comment on above: Performed By: #### L 500.4050, L100.0100 ####[facility] [address] [place], [address] Comprehensive Metabolic Prof ilon 01-29-2024 Albumin [Mass/Vol] 2.8 g/dL Low 3.2-5.0 [facility] Comment on above: Performed By: #### L 500.4050, L100.0100 ####[facility] [address] [place], [address] Albumin/Globulin [Mass ratio] 0.7 {ratio} Low 0.9-2.4 [facility] Comment on above: Performed By: #### L 500.4050, L100.0100 ####[facility] [address] [place], [address] ALK P 82 U/L Normal 45-117 [facility] Comment on above: Performed By: #### L 500.4050, L100.0100 ####[facility] [address] [place], [address] ALT [Catalytic activity/Vol] 13 U/L Normal 13-56 [facility] Comment on above: Performed By: #### L 500.4050, L100.0100 ####[facility] [address] [place], [address] AST [Catalytic activity/Vol] 13 U/L Low 15-37 [facility] Comment on above: Performed By: #### L 500.4050, L100.0100 ####[facility] [address] [place], [address] Bilirubin [Mass/Vol] 0.30 mg/dL Normal 0.20-1.00 [facility] Comment on above: Result Comment: For patients on eltrombopag therapy, use of Dimension [place] TBIL is not recommended. Performed By: #### L 500.4050, L100.0100 ####[facility] [address] [place], [address] BUN/CRE 31.2 RATIO High 10-20 [facility] Comment on above: Performed By: #### L 500.4050, L100.0100 ####[facility] [address] [place], [address] CA,Total 8.7 mg/dL Normal 8.5-10.1 [facility] Comment on above: Performed By: #### L 500.4050, L100.0100 ####[facility] [address] [place], [address] Chloride [Moles/Vol] 110 mmol/L High 98-107 [facility] Comment on above: Performed By: #### L 500.4050, L100.0100 ####[facility] [address] [place], [address] CO2 [Moles/Vol] 24.0 mmol/L Normal 21.0-32.0 [facility] Comment on above: Performed By: #### L 500.4050, L100.0100 ####[facility] [address] [place], [address] Creatinine [Mass/Vol] 0.45 mg/dL Low 0.55-1.02 [facility] Comment on above: Result Comment: The validity of the calculated GFR GFRAA in patients over70 years has not been determined. Clinical correlation isessential. Performed By: #### L 500.4050, L100.0100 ####[facility] [address] [place], [address] ECRCL 145.23 ml/min Normal [facility] Comment on above: Performed By: #### L 500.4050, L100.0100 ####[facility] [address] [place], [address] EST GFR - AA 183 mL/min Normal >60 [facility] Comment on above: Result Comment: Afri can Austrian GFR Calc Performed By: #### L 500.4050, L100.0100 ####[facility] [address] [place], [address] GAP 5 Normal 5-15 [facility] Comment on above: Performed By: #### L 500.4050, L100.0100 ####[facility] [address] [place], [address] GFR/1.73 sq M.predicted among non-blacks MDRD (S/P/Bld) [Vol rate/Area] 152 mL/min/{1.73_m2} Normal >60 [facility] Comment on above: Result Comment: Non- GFR Calc Performed By: #### L 500.4050, L100.0100 ####[facility] [address] [place], [address] Globulin (S) [Mass/Vol] 3.9 g/dL Normal 2.2-4.2 [facility] Comment on above: Performed By: #### L 500.4050, L100.0100 ####[facility] [address] [place], [address] Glucose [Mass/Vol] 127 mg/dL High 74-106 [facility] Comment on above: Result Comment: Fast ing Glucose result greater than or equal to 126 mg/dLsuggests DIABETES MELLITUS per A.D.A. criteria. Performed By: #### L 500.4050, L100.0100 ####[facility] [address] [place], [address] Potassium [Moles/Vol] 3.6 mmol/L Normal 3.5-5.1 [facility] Comment on above: Performed By: #### L 500.4050, L100.0100 ####[facility] [address] [place], [address] Sodium [Moles/Vol] 139 mmol/L Normal 136-145 [facility] Comment on above: Performed By: #### L 500.4050, L100.0100 ####[facility] [address] [place], [address] T PROT 6.7 g/dL Normal 6.4-8.2 [facility] Comment on above: Performed By: #### L 500.4050, L100.0100 ####[facility] [address] [place], [address] Urea nitrogen [Mass/Vol] 14 mg/dL Normal 7-18 [facility] Comment on above: Performed By: #### L 500.4050, L100.0100 ####[facility] [address] [place], [address] MR/PN.GIon 01-29-2024 MR/PN.GI Normal [facility] Abdomen/Pelvis W IV Cont ONL Yon 01-28-2024 Abdomen/Pelvis W IV Cont ONLY Normal [facility] Basic Metabolic Profile (BMP )on 01-28-2024 BUN/CRE 29.2 RATIO High 10-20 [facility] Comment on above: Performed By: #### L 500.3400, L501.2450, L100.0100, L500.2500 ####[facility] [address] [place], [address] CA,Total 9.3 mg/dL Normal 8.5-10.1 [facility] Comment on above: Performed By: #### L 500.3400, L501.2450, L100.0100, L500.2500 ####[facility] [address] [place], [address] Chloride [Moles/Vol] 107 mmol/L Normal 98-107 [facility] Comment on above: Performed By: #### L 500.3400, L501.2450, L100.0100, L500.2500 ####[facility] [address] [place], [address] CO2 [Moles/Vol] 25.0 mmol/L Normal 21.0-32.0 [facility] Comment on above: Performed By: #### L 500.3400, L501.2450, L100.0100, L500.2500 ####[facility] [address] [place], [address] Creatinine [Mass/Vol] 0.72 mg/dL Normal 0.55-1.02 [facility] Comment on above: Result Comment: The validity of the calculated GFR GFRAA in patients over70 years has not been determined. Clinical correlation isessential. Performed By: #### L 500.3400, L501.2450, L100.0100, L500.2500 ####[facility] [address] [place], [address] ECRCL 90.98 ml/min Normal [facility] Comment on above: Performed By: #### L 500.3400, L501.2450, L100.0100, L500.2500 ####[facility] [address] [place], [address] EST GFR - AA 106 mL/min Normal >60 [facility] Comment on above: Result Comment: Afri can Austrian GFR Calc Performed By: #### L 500.3400, L501.2450, L100.0100, L500.2500 ####[facility] [address] [place], [address] GAP 6 Normal 5-15 [facility] Comment on above: Performed By: #### L 500.3400, L501.2450, L100.0100, L500.2500 ####[facility] [address] [place], [address] GFR/1.73 sq M.predicted among non-blacks MDRD (S/P/Bld) [Vol rate/Area] 88 mL/min/{1.73_m2} Normal >60 [facility] Comment on above: Result Comment: Non- GFR Calc Performed By: #### L 500.3400, L501.2450, L100.0100, L500.2500 ####[facility] [address] [place], [address] Glucose [Mass/Vol] 178 mg/dL High 74-106 [facility] Comment on above: Result Comment: Fast ing Glucose result greater than or equal to 126 mg/dLsuggests DIABETES MELLITUS per A.D.A. criteria. Performed By: #### L 500.3400, L501.2450, L100.0100, L500.2500 ####[facility] [address] [place], [address] Potassium [Moles/Vol] 3.6 mmol/L Normal 3.5-5.1 [facility] Comment on above: Performed By: #### L 500.3400, L501.2450, L100.0100, L500.2500 ####[facility] [address] [place], [address] Sodium [Moles/Vol] 138 mmol/L Normal 136-145 [facility] Comment on above: Performed By: #### L 500.3400, L501.2450, L100.0100, L500.2500 ####[facility] [address] [place], [address] Urea nitrogen [Mass/Vol] 21 mg/dL High 7-18 [facility] Comment on above: Performed By: #### L 500.3400, L501.2450, L100.0100, L500.2500 ####[facility] [address] [place], [address] Bedside Glucoseon 01-28-2024 FINGERSTICK GLU 106 mg/dL Normal 74-106 [facility] Comment on above: Result Comment: SARA HURTADO OF PATIENT CARE PER NURSING PROTOCOL Performed By: #### L 501.080 ####[facility] [address] [place], [address] FINGERSTICK GLU 106 mg/dL Normal 74-106 [facility] Comment on above: Result Comment: SARA GEMENT OF PATIENT CARE PER NURSING PROTOCOL Performed By: #### L 501.080 ####[facility] [address] [place], [address] FINGERSTICK GLU 106 mg/dL Normal 74-106 [facility] Comment on above: Result Comment: SARA GEMENT OF PATIENT CARE PER NURSING PROTOCOL Performed By: #### L 501.080 ####[facility] [address] [place], [address] FINGERSTICK GLU 141 mg/dL High 74-106 [facility] Comment on above: Result Comment: SARA GEMENT OF PATIENT CARE PER NURSING PROTOCOL Performed By: #### L 501.080 ####[facility] [address] [place], [address] CBC W/Diff, Automatedon 08-0 2-2024 Absolute Lymph 2.40 X10 3/uL Normal 0.83-4.51 [facility] Comment on above: Performed By: #### L 500.3400, L501.2450, L100.0100, L500.2500 ####[facility] [address] [place], [address] Absolute Neut 6.8 X10 3/uL Normal 2.0-7.7 [facility] Comment on above: Performed By: #### L 500.3400, L501.2450, L100.0100, L500.2500 ####[facility] [address] [place], [address] Basophils/100 WBC (Bld) 0.7 % Normal 0-1 [facility] Comment on above: Performed By: #### L 500.3400, L501.2450, L100.0100, L500.2500 ####[facility] [address] [place], [address] Eosinophils/100 WBC (Bld) 3.1 % Normal 0-5 [facility] Comment on above: Performed By: #### L 500.3400, L501.2450, L100.0100, L500.2500 ####[facility] [address] [place], [address] Erythrocyte distribution width (RBC) [Ratio] 14.8 % High 11.6-14.6 [facility] Comment on above: Performed By: #### L 500.3400, L501.2450, L100.0100, L500.2500 ####[facility] [address] [place], [address] Hematocrit (Bld) [Volume fraction] 49.3 % High 37-47 [facility] Comment on above: Performed By: #### L 500.3400, L501.2450, L100.0100, L500.2500 ####[facility] [address] [place], [address] Hemoglobin (Bld) [Mass/Vol] 15.8 g/dL High 12.0-15.0 [facility] Comment on above: Performed By: #### L 500.3400, L501.2450, L100.0100, L500.2500 ####[facility] [address] [place], [address] IG% 0.300 Normal 0.0-0.9 [facility] Comment on above: Result Comment: IG% - Immature Granulocytes (promyelocytes, myelocytes andmetamyelocytes) > 1% indicates that a LEFT SHIFT is Present. Performed By: #### L 500.3400, L501.2450, L100.0100, L500.2500 ####[facility] [address] [place], [address] Lymphocytes/100 WBC (Bld) 23.0 % Normal 19-41 [facility] Comment on above: Performed By: #### L 500.3400, L501.2450, L100.0100, L500.2500 ####[facility] [address] [place], [address] MCH (RBC) [Entitic mass] 28.1 pg Normal 27.0-32.0 [facility] Comment on above: Performed By: #### L 500.3400, L501.2450, L100.0100, L500.2500 ####[facility] [address] [place], [address] MCHC (RBC) [Mass/Vol] 32.0 g/dL Normal 32-36 [facility] Comment on above: Performed By: #### L 500.3400, L501.2450, L100.0100, L500.2500 ####[facility] [address] [place], [address] MCV (RBC) [Entitic vol] 87.6 fL Normal 81-99 [facility] Comment on above: Performed By: #### L 500.3400, L501.2450, L100.0100, L500.2500 ####[facility] [address] [place], [address] Monocytes/100 WBC (Bld) 7.5 % Normal 0-10 [facility] Comment on above: Performed By: #### L 500.3400, L501.2450, L100.0100, L500.2500 ####[facility] [address] [place], [address] Neutrophils/100 WBC (Bld) 65.4 % Normal 47-70 [facility] Comment on above: Performed By: #### L 500.3400, L501.2450, L100.0100, L500.2500 ####[facility] [address] [place], [address] Nucleated RBC (Bld) [#/Vol] 0 10*3/uL Normal 0-5 [facility] Comment on above: Performed By: #### L 500.3400, L501.2450, L100.0100, L500.2500 ####[facility] [address] [place], [address] Platelet mean volume (Bld) [Entitic vol] 10.0 fL Normal 6.2-12.0 [facility] Comment on above: Performed By: #### L 500.3400, L501.2450, L100.0100, L500.2500 ####[facility] [address] [place], [address] Platelets (Bld) [#/Vol] 200 10*3/uL Normal 150-450 [facility] Comment on above: Performed By: #### L 500.3400, L501.2450, L100.0100, L500.2500 ####[facility] [address] [place], [address] RBC (Bld) [#/Vol] 5.63 10*6/uL High 4.2-5.4 [facility] Comment on above: Performed By: #### L 500.3400, L501.2450, L100.0100, L500.2500 ####[facility] [address] [place], [address] RDW SD 47.0 fl High 35.1-43.9 [facility] Comment on above: Performed By: #### L 500.3400, L501.2450, L100.0100, L500.2500 ####[facility] [address] [place], [address] WBC (Bld) [#/Vol] 10.4 10*3/uL Normal 4.4-11.0 [facility] Comment on above: Performed By: #### L 500.3400, L501.2450, L100.0100, L500.2500 ####[facility] [address] [place], [address] Emergency Department Summary on 01-28-2024 Emergency Department Summary Normal [facility] H AND P Exam - Hospitaliston 01-28-2024 H&P Exam - Hospitalist Normal [facility] Lipaseon 01-28-2024 Lipase [Catalytic activity/Vol] U/L High 13-75 [facility] Comment on above: Result Comment: Buck truong note:LIPASE revised reference range effective 22.New Lipase methodology. Expected to produce lower valuesthan the previous assay method.NEW Reference Range: 13 - 75 U/L Performed By: #### L 500.3400, L501.2450, L100.0100, L500.2500 ####[facility] [address] [place], [address] Liver Profileon 01-28-2024 Albumin [Mass/Vol] 3.5 g/dL Normal 3.2-5.0 [facility] Comment on above: Performed By: #### L 500.3400, L501.2450, L100.0100, L500.2500 ####[facility] [address] [place], [address] ALK P 99 U/L Normal 45-117 [facility] Comment on above: Performed By: #### L 500.3400, L501.2450, L100.0100, L500.2500 ####[facility] [address] [place], [address] ALT [Catalytic activity/Vol] 15 U/L Normal 13-56 [facility] Comment on above: Performed By: #### L 500.3400, L501.2450, L100.0100, L500.2500 ####[facility] [address] [place], [address] AST [Catalytic activity/Vol] 12 U/L Low 15-37 [facility] Comment on above: Performed By: #### L 500.3400, L501.2450, L100.0100, L500.2500 ####[facility] [address] [place], [address] Bilirubin [Mass/Vol] 0.40 mg/dL Normal 0.20-1.00 [facility] Comment on above: Result Comment: For patients on eltrombopag therapy, use of Dimension [place] TBIL is not recommended. Performed By: #### L 500.3400, L501.2450, L100.0100, L500.2500 ####[facility] [address] [place], [address] Bilirubin.direct [Mass/Vol] 0.11 mg/dL Normal 0.00-0.30 [facility] Comment on above: Performed By: #### L 500.3400, L501.2450, L100.0100, L500.2500 ####[facility] [address] [place], [address] Globulin (S) [Mass/Vol] 4.4 g/dL High 2.2-4.2 [facility] Comment on above: Performed By: #### L 500.3400, L501.2450, L100.0100, L500.2500 ####[facility] [address] [place], [address] T PROT 7.9 g/dL Normal 6.4-8.2 [facility] Comment on above: Performed By: #### L 500.3400, L501.2450, L100.0100, L500.2500 ####[facility] [address] [place], [address] MR/CON.PCM.GIon 01-28-2024 MR/CON.PCM.GI Normal [facility] MRCP Abdomen without Contras ton 01-28-2024 MRCP Abdomen without Contrast Normal [facility] CBC W/Diff, Automatedon 06-2 0-2023 Absolute Lymph 2.43 X10 3/uL Normal 0.83-4.51 [facility] Comment on above: Performed By: #### L 500.4050, L100.0100 ####[facility] [address] [place], [address] Absolute Neut 4.5 X10 3/uL Normal 2.0-7.7 [facility] Comment on above: Performed By: #### L 500.4050, L100.0100 ####[facility] [address] [place], [address] Basophils/100 WBC (Bld) 0.9 % Normal 0-1 [facility] Comment on above: Performed By: #### L 500.4050, L100.0100 ####[facility] [address] [place], [address] Eosinophils/100 WBC (Bld) 4.4 % Normal 0-5 [facility] Comment on above: Performed By: #### L 500.4050, L100.0100 ####[facility] [address] [place], [address] Erythrocyte distribution width (RBC) [Ratio] 14.8 % High 11.6-14.6 [facility] Comment on above: Performed By: #### L 500.4050, L100.0100 ####[facility] [address] [place], [address] Hematocrit (Bld) [Volume fraction] 49.1 % High 37-47 [facility] Comment on above: Performed By: #### L 500.4050, L100.0100 ####[facility] [address] [place], [address] Hemoglobin (Bld) [Mass/Vol] 15.7 g/dL High 12.0-15.0 [facility] Comment on above: Performed By: #### L 500.4050, L100.0100 ####[facility] [address] [place], [address] IG% 0.400 Normal 0.0-0.9 [facility] Comment on above: Result Comment: IG% - Immature Granulocytes (promyelocytes, myelocytes andmetamyelocytes) > 1% indicates that a LEFT SHIFT is Present. Performed By: #### L 500.4050, L100.0100 ####[facility] [address] [place], [address] Lymphocytes/100 WBC (Bld) 30.9 % Normal 19-41 [facility] Comment on above: Performed By: #### L 500.4050, L100.0100 ####[facility] [address] [place], [address] MCH (RBC) [Entitic mass] 28.3 pg Normal 27.0-32.0 [facility] Comment on above: Performed By: #### L 500.4050, L100.0100 ####[facility] [address] [place], [address] MCHC (RBC) [Mass/Vol] 32.0 g/dL Normal 32-36 [facility] Comment on above: Performed By: #### L 500.4050, L100.0100 ####[facility] [address] [place], [address] MCV (RBC) [Entitic vol] 88.6 fL Normal 81-99 [facility] Comment on above: Performed By: #### L 500.4050, L100.0100 ####[facility] [address] [place], [address] Monocytes/100 WBC (Bld) 6.7 % Normal 0-10 [facility] Comment on above: Performed By: #### L 500.4050, L100.0100 ####[facility] [address] [place], [address] Neutrophils/100 WBC (Bld) 56.7 % Normal 47-70 [facility] Comment on above: Performed By: #### L 500.4050, L100.0100 ####[facility] [address] [place], [address] Nucleated RBC (Bld) [#/Vol] 0 10*3/uL Normal 0-5 [facility] Comment on above: Performed By: #### L 500.4050, L100.0100 ####[facility] [address] [place], [address] Platelet mean volume (Bld) [Entitic vol] 10.5 fL Normal 6.2-12.0 [facility] Comment on above: Performed By: #### L 500.4050, L100.0100 ####[facility] [address] [place], [address] Platelets (Bld) [#/Vol] 219 10*3/uL Normal 150-450 [facility] Comment on above: Performed By: #### L 500.4050, L100.0100 ####[facility] [address] [place], [address] RBC (Bld) [#/Vol] 5.54 10*6/uL High 4.2-5.4 [facility] Comment on above: Performed By: #### L 500.4050, L100.0100 ####[facility] [address] [place], [address] RDW SD 48.4 fl High 35.1-43.9 [facility] Comment on above: Performed By: #### L 500.4050, L100.0100 ####[facility] [address] [place], [address] WBC (Bld) [#/Vol] 7.9 10*3/uL Normal 4.4-11.0 [facility] Comment on above: Performed By: #### L 500.4050, L100.0100 ####[facility] [address] [place], [address] Comprehensive Metabolic Prof ilon 12-16-2023 Albumin [Mass/Vol] 3.5 g/dL Normal 3.2-5.0 [facility] Comment on above: Performed By: #### L 500.4050, L100.0100 ####[facility] [address] [place], [address] Albumin/Globulin [Mass ratio] 0.8 {ratio} Low 0.9-2.4 [facility] Comment on above: Performed By: #### L 500.4050, L100.0100 ####[facility] [address] [place], [address] ALK P 102 U/L Normal 45-117 [facility] Comment on above: Performed By: #### L 500.4050, L100.0100 ####[facility] [address] [place], [address] ALT [Catalytic activity/Vol] 17 U/L Normal 13-56 [facility] Comment on above: Performed By: #### L 500.4050, L100.0100 ####[facility] [address] [place], [address] AST [Catalytic activity/Vol] 13 U/L Low 15-37 [facility] Comment on above: Performed By: #### L 500.4050, L100.0100 ####[facility] [address] [place], [address] Bilirubin [Mass/Vol] 0.40 mg/dL Normal 0.20-1.00 [facility] Comment on above: Result Comment: For patients on eltrombopag therapy, use of Dimension [place] TBIL is not recommended. Performed By: #### L 500.4050, L100.0100 ####[facility] [address] [place], [address] BUN/CRE 24.9 RATIO High 10-20 [facility] Comment on above: Performed By: #### L 500.4050, L100.0100 ####[facility] [address] [place], [address] CA,Total 9.8 mg/dL Normal 8.5-10.1 [facility] Comment on above: Performed By: #### L 500.4050, L100.0100 ####[facility] [address] [place], [address] Chloride [Moles/Vol] 108 mmol/L High 98-107 [facility] Comment on above: Performed By: #### L 500.4050, L100.0100 ####[facility] [address] [place], [address] CO2 [Moles/Vol] 25.0 mmol/L Normal 21.0-32.0 [facility] Comment on above: Performed By: #### L 500.4050, L100.0100 ####[facility] [address] [place], [address] Creatinine [Mass/Vol] 0.80 mg/dL Normal 0.55-1.02 [facility] Comment on above: Result Comment: The validity of the calculated GFR GFRAA in patients over70 years has not been determined. Clinical correlation isessential. Performed By: #### L 500.4050, L100.0100 ####[facility] [address] [place], [address] EST GFR - AA 94 mL/min Normal >60 [facility] Comment on above: Result Comment: Afri can [place] GFR Calc Performed By: #### L 500.4050, L100.0100 ####[facility] [address] [place], [address] GAP 5 Normal 5-15 [facility] Comment on above: Performed By: #### L 500.4050, L100.0100 ####[facility] [address] [place], [address] GFR/1.73 sq M.predicted among non-blacks MDRD (S/P/Bld) [Vol rate/Area] 77 mL/min/{1.73_m2} Normal >60 [facility] Comment on above: Result Comment: Non- GFR Calc Performed By: #### L 500.4050, L100.0100 ####[facility] [address] [place], [address] Globulin (S) [Mass/Vol] 4.4 g/dL High 2.2-4.2 [facility] Comment on above: Performed By: #### L 500.4050, L100.0100 ####[facility] [address] [place], [address] Glucose [Mass/Vol] 135 mg/dL High 74-106 [facility] Comment on above: Result Comment: Fast ing Glucose result greater than or equal to 126 mg/dLsuggests DIABETES MELLITUS per A.D.A. criteria. Performed By: #### L 500.4050, L100.0100 ####[facility] [address] [place], [address] Potassium [Moles/Vol] 4.1 mmol/L Normal 3.5-5.1 [facility] Comment on above: Performed By: #### L 500.4050, L100.0100 ####[facility] [address] [place], [address] Sodium [Moles/Vol] 138 mmol/L Normal 136-145 [facility] Comment on above: Performed By: #### L 500.4050, L100.0100 ####[facility] [address] [place], [address] T PROT 7.9 g/dL Normal 6.4-8.2 [facility] Comment on above: Performed By: #### L 500.4050, L100.0100 ####[facility] [address] [place], [address] Urea nitrogen [Mass/Vol] 20 mg/dL High 7-18 [facility] Comment on above: Performed By: #### L 500.4050, L100.0100 ####[facility] [address] [place], [address] Absolute lymphocyte countOrd ered By: Diaan Ramos on 09-23-2023 Lymphocytes Auto (Unsp spec) [#/Vol] 1.94 10*3/uL 0.83-4.51 [facility] Automated lymphocyte count a s percentage of total leukocytesOrdered By: Diana Ramos on 09-23-2023 Lymphocytes/100 WBC Auto (Unsp spec) 27.4 % 19-41 [facility] Basophil percentageOrdered B y: Diana Ramos on 09-23-2023 Basophils/100 WBC (Bld) 0.7 % 0-1 [facility] Bilirubin [Mass/Vol] 0.40 mg/dL 0.20-1.00 [facility] Comment on above: For patients on eltr ombopag therapy, use of Dimension [place] TBIL is not recommended. Chloride [Moles/Vol] 108 mmol/L 98-107 [facility] Eosinophils/100 WBC (Bld) 4.8 % 0-5 [facility] Glucose [Mass/Vol] 144 mg/dL 74-106 [facility] Comment on above: Fasting Glucose resu lt greater than or equal to 126 mg/dL suggests DIABETES MELLITUS per A.D.A. criteria. Hemoglobin (Bld) [Mass/Vol] 15.1 g/dL 12.0-15.0 [facility] Monocytes/100 WBC (Bld) 7.9 % 0-10 [facility] Neutrophils (Bld) [#/Vol] 4.2 10*3/uL 2.0-7.7 [facility] Neutrophils/100 WBC (Bld) 58.9 % 47-70 [facility] Potassium [Moles/Vol] 4.1 mmol/L 3.5-5.1 [facility] Protein [Mass/Vol] 7.8 g/dL 6.4-8.2 [facility] Sodium [Moles/Vol] 139 mmol/L 136-145 [facility] WBC (Bld) [#/Vol] 7.1 10*3/uL 4.4-11.0 [facility] Determination of erythrocyte mean corpuscular volume (MCV)Ordered By: Diana Ramos on 09-23-2023 MCV (RBC) [Entitic vol] 90.6 fL 81-99 [facility] Erythrocyte distribution wid th ratioOrdered By: Diana Ramos on 09-23-2023 Erythrocyte distribution width (RBC) [Ratio] 13.6 % 11.6-14.6 [facility] Erythrocyte distribution wid th standard deviationOrdered By: Diana Ramos on 09-23-2023 Erythrocyte distribution width (RBC) [Entitic vol] 45.8 fL 35.1-43.9 [facility] Hematocrit Auto (Bld) [Volum e fraction]Ordered By: Diana Ramos on 09-23-2023 Hematocrit (Bld) [Volume fraction] 47.2 % 37-47 [facility] Immature granulocytes/100 WB C Auto (Bld)Ordered By: Diana Ramos on 09-23-2023 Immature granulocytes/100 WBC (Bld) 0.300 % 0.0-0.9 [facility] Comment on above: IG% - Immature Granu locytes (promyelocytes, myelocytes and metamyelocytes) > 1% indicates that a LEFT SHIFT is Present. Laboratory - Chemistry and C hemistry - challengeOrdered By: Diana Ramos on 09-23-2023 Albumin/Globulin [Mass ratio] 0.9 {ratio} 0.9-2.4 [facility] ALP [Catalytic activity/Vol] 95 U/L 45-117 [facility] ALT [Catalytic activity/Vol] 16 U/L 13-56 [facility] CO2 [Moles/Vol] 27.0 mmol/L 21.0-32.0 [facility] Globulin (S) [Mass/Vol] 4.2 g/dL 2.2-4.2 [facility] Urea nitrogen/Creatinine [Mass ratio] 24.0 mg/mg 10-20 [facility] Laboratory - Hematology and Cell countsOrdered By: Diana Ramos on 09-23-2023 MCH (RBC) [Entitic mass] 29.0 pg 27.0-32.0 [facility] MCHC (RBC) [Mass/Vol] 32.0 g/dL 32-36 [facility] Nucleated RBC/100 WBC (Bld) [Ratio] 0 % 0-5 [facility] Platelet mean volume (Bld) [Entitic vol] 10.4 fL 6.2-12.0 [facility] Platelets (Bld) [#/Vol] 189 10*3/uL 150-450 [facility] No Panel InformationOrdered By: Diana Rmaos on 09-23-2023 Estimated GFR (MDRD) Amer 108 mL/min >60 [facility] Comment on above: GFR Calc Estimated GFR (MDRD) Non-Af Amer 90 mL/min >60 [facility] Comment on above: Non- GFR Calc RBC Auto (Bld) [#/Vol]Ordere d By: Diana Ramos on 09-23-2023 RBC (Bld) [#/Vol] 5.21 10*6/uL 4.2-5.4 [facility] Serum or plasma calcium jasiel urement (mass/volume)Ordered By: Diana Ramos on 09-23-2023 Calcium [Mass/Vol] 9.7 mg/dL 8.5-10.1 [facility] [facility] Serum or plasma creatinine m easurement (mass/volume)Ordered By: Diana Ramos on 09-23-2023 Creatinine [Mass/Vol] 0.71 mg/dL 0.55-1.02 [facility] Comment on above: The validity of the calculated GFR & GFRAA in patients over 70 years has not been determined. Clinical correlation is essential. Serum or plasma urea nitroge n measurement (mass/volume)Ordered By: Diana Ramos on 09-23-2023 Urea nitrogen [Mass/Vol] 17 mg/dL 7-18 [facility] Thin prep Papanicolaou smear with manual screeningOrdered By: Diana Ramos on 09-23-2023 Thin prep Papanicolaou smear with manual screening 3.6 g/dL 3.2-5.0 [facility] Thin prep Papanicolaou smear with manual screening 11 U/L 15-37 [facility] Thin prep Papanicolaou smear with manual screening 4 5-15 [facility] Absolute lymphocyte countOrd ered By: Diana Ramos on 06-30-2023 Lymphocytes Auto (Unsp spec) [#/Vol] 1.96 10*3/uL 0.83-4.51 [facility] Basophil percentageOrdered B y: Diana Ramos on 06-30-2023 Basophils/100 WBC (Bld) 0.6 % 0-1 [facility] Bilirubin [Mass/Vol] 0.40 mg/dL 0.20-1.00 [facility] Comment on above: For patients on eltr ombopag therapy, use of [place] TBIL is not recommended. Chloride [Moles/Vol] 105 mmol/L 98-107 [facility] Eosinophils/100 WBC (Bld) 2.7 % 0-5 [facility] Glucose [Mass/Vol] 111 mg/dL 74-106 [facility] Comment on above: Fasting Glucose resu lt from 100 to 125 mg/dL suggests IMPAIRED HOMEOSTASIS per A.D.A. criteria. Neutrophils (Bld) [#/Vol] 5.3 10*3/uL 2.0-7.7 [facility] Neutrophils/100 WBC (Bld) 64.8 % 47-70 [facility] Potassium [Moles/Vol] 4.0 mmol/L 3.5-5.1 [facility] Protein [Mass/Vol] 7.7 g/dL 6.4-8.2 [facility] Sodium [Moles/Vol] 138 mmol/L 136-145 [facility] WBC (Bld) [#/Vol] 8.2 10*3/uL 4.4-11.0 [facility] Blood erythrocytes count (nu mber/volume)Ordered By: Diana Ramos on 06-30-2023 RBC (Bld) [#/Vol] 5.06 10*6/uL 4.2-5.4 [facility] Blood hemoglobin measurement (mass/volume)Ordered By: Diana Ramos on 06-30-2023 Hemoglobin (Bld) [Mass/Vol] 14.3 g/dL 12.0-15.0 [facility] Blood lymphocytes/100 leukoc ytesOrdered By: Diana Ramos on 06-30-2023 Lymphocytes/100 WBC (Bld) 24.0 % 19-41 [facility] Blood monocytes/100 leukocyt esOrdered By: Diana Ramos on 06-30-2023 Monocytes/100 WBC (Bld) 7.8 % 0-10 [facility] Blood platelet mean volumeOr dered By: Diana Ramos on 06-30-2023 Platelet mean volume (Bld) [Entitic vol] 10.4 fL 6.2-12.0 [facility] Determination of erythrocyte mean corpuscular volume (MCV)Ordered By: Diana Ramos on 06-30-2023 MCV (RBC) [Entitic vol] 89.9 fL 81-99 [facility] Hematocrit Auto (Bld) [Volum e fraction]Ordered By: Diana Ramos on 06-30-2023 Hematocrit (Bld) [Volume fraction] 45.5 % 37-47 [facility] Laboratory - Chemistry and C hemistry - challengeOrdered By: Diana Ramos on 06-30-2023 ALP [Catalytic activity/Vol] 109 U/L 45-117 [facility] ALT [Catalytic activity/Vol] 27 U/L 13-56 [facility] CO2 [Moles/Vol] 24.0 mmol/L 21.0-32.0 [facility] Globulin (S) [Mass/Vol] 4.0 g/dL 2.2-4.2 [facility] Urea nitrogen/Creatinine [Mass ratio] 29.4 mg/mg 10-20 [facility] Laboratory - Hematology and Cell countsOrdered By: Diana Ramos on 06-30-2023 Erythrocyte distribution width (RBC) [Entitic vol] 49.1 fL 35.1-43.9 [facility] Erythrocyte distribution width (RBC) [Ratio] 14.9 % 11.6-14.6 [facility] Immature granulocytes/100 WBC (Bld) 0.100 % 0.0-0.9 [facility] Comment on above: IG% - Immature Granu locytes (promyelocytes, myelocytes and metamyelocytes) > 1% indicates that a LEFT SHIFT is Present. MCH (RBC) [Entitic mass] 28.3 pg 27.0-32.0 [facility] Nucleated RBC/100 WBC (Bld) [Ratio] 0 % 0-5 [facility] MCHC Auto (RBC) [Mass/Vol]Or dered By: Diana Ramos on 06-30-2023 MCHC (RBC) [Mass/Vol] 31.4 g/dL 32-36 [facility] No Panel InformationOrdered By: Diana Ramos on 06-30-2023 Estimated GFR (MDRD) Amer 84 mL/min >60 [facility] Comment on above: GFR Calc Estimated GFR (MDRD) Non-Af Amer 69 mL/min >60 [facility] Comment on above: Non- GFR Calc Platelets bldOrdered By: Katarina Ramos on 06-30-2023 Platelets (Bld) [#/Vol] 209 10*3/uL 150-450 [facility] Serum or plasma albumin jasiel urement (mass/volume)Ordered By: Diana Ramos on 06-30-2023 Albumin [Mass/Vol] 3.7 g/dL 3.2-5.0 [facility] Serum or plasma albumin/glob ulin mass ratioOrdered By: Diana Ramos on 06-30-2023 Albumin/Globulin [Mass ratio] 0.9 {ratio} 0.9-2.4 [facility] Serum or plasma calcium jasiel urement (mass/volume)Ordered By: Diana Ramos on 06-30-2023 Calcium [Mass/Vol] 9.0 mg/dL 8.5-10.1 [facility] Serum or plasma creatinine m easurement (mass/volume)Ordered By: Diana Ramos on 06-30-2023 Creatinine [Mass/Vol] 0.88 mg/dL 0.55-1.02 [facility] Comment on above: The validity of the calculated GFR & GFRAA in patients over 70 years has not been determined. Clinical correlation is essential. Serum or plasma urea nitroge n measurement (mass/volume)Ordered By: Diana Ramos on 06-30-2023 Urea nitrogen [Mass/Vol] 26 mg/dL 7-18 [facility] Thin prep Papanicolaou smear with manual screeningOrdered By: Diana Ramos on 06-30-2023 Thin prep Papanicolaou smear with manual screening 20 U/L 15-37 [facility] Thin prep Papanicolaou smear with manual screening 9 5-15 [facility] Laboratory - Chemistry and C hemistry - challengeOrdered By: Nehemias Arizmendi on 05-17-2023 Free T4 [Mass/Vol] 1.43 ng/dL 0.76-1.46 [facility] No Panel InformationOrdered By: Nehemias Arizmendi on 05-17-2023 Free Triiodothyronine (T3) pg/dL 1.9 pg/mL 2.18-3.98 [facility] Thyroid Stimulating Hormone (TSH) 1.40 uIU/mL 0.358-3.74 [facility] Absolute lymphocyte countOrd ered By: Nehemias Arizmendi on 03-30-2023 Lymphocytes Auto (Unsp spec) [#/Vol] 2.30 10*3/uL 0.83-4.51 [facility] Basophil percentageOrdered B y: Nehemias Arizmendi on 03-30-2023 Basophils/100 WBC (Bld) 0.9 % 0-1 [facility] Bilirubin [Mass/Vol] 0.30 mg/dL 0.20-1.00 [facility] Comment on above: For patients on eltr ombopag therapy, use of [place] TBIL is not recommended. Chloride [Moles/Vol] 108 mmol/L 98-107 [facility] Eosinophils/100 WBC (Bld) 2.8 % 0-5 [facility] Glucose [Mass/Vol] 122 mg/dL 74-106 [facility] Comment on above: Fasting Glucose resu lt from 100 to 125 mg/dL suggests IMPAIRED HOMEOSTASIS per A.D.A. criteria. Neutrophils (Bld) [#/Vol] 4.7 10*3/uL 2.0-7.7 [facility] Neutrophils/100 WBC (Bld) 59.7 % 47-70 [facility] Potassium [Moles/Vol] 4.3 mmol/L 3.5-5.1 [facility] Protein [Mass/Vol] 7.7 g/dL 6.4-8.2 [facility] Sodium [Moles/Vol] 140 mmol/L 136-145 [facility] WBC (Bld) [#/Vol] 7.9 10*3/uL 4.4-11.0 [facility] Blood erythrocytes count (nu mber/volume)Ordered By: eNhemias Arizmendi on 03-30-2023 RBC (Bld) [#/Vol] 4.98 10*6/uL 4.2-5.4 [facility] Blood hemoglobin measurement (mass/volume)Ordered By: Nehemias Arizmendi on 03-30-2023 Hemoglobin (Bld) [Mass/Vol] 13.7 g/dL 12.0-15.0 [facility] Blood lymphocytes/100 leukoc ytesOrdered By: Nehemias Arizmendi on 03-30-2023 Lymphocytes/100 WBC (Bld) 29.1 % 19-41 [facility] Blood monocytes/100 leukocyt esOrdered By: Nehemias Arizmendi on 03-30-2023 Monocytes/100 WBC (Bld) 7.1 % 0-10 [facility] Blood platelet mean volumeOr dered By: Nehemias Arizmendi on 03-30-2023 Platelet mean volume (Bld) [Entitic vol] 10.4 fL 6.2-12.0 [facility] Determination of erythrocyte mean corpuscular volume (MCV)Ordered By: Nehemias Arizmendi on 03-30-2023 MCV (RBC) [Entitic vol] 88.2 fL 81-99 [facility] Hematocrit Auto (Bld) [Volum e fraction]Ordered By: Nehemias Arizmendi on 03-30-2023 Hematocrit (Bld) [Volume fraction] 43.9 % 37-47 [facility] Laboratory - Chemistry and C hemistry - challengeOrdered By: Nehemias Arizmendi on 03-30-2023 ALP [Catalytic activity/Vol] 93 U/L 45-117 [facility] ALT [Catalytic activity/Vol] 15 U/L 13-56 [facility] CO2 [Moles/Vol] 25.0 mmol/L 21.0-32.0 [facility] Globulin (S) [Mass/Vol] 4.3 g/dL 2.2-4.2 [facility] Urea nitrogen/Creatinine [Mass ratio] 25.7 mg/mg 10-20 [facility] Laboratory - Hematology and Cell countsOrdered By: Nehemias Arizmendi on 03-30-2023 Erythrocyte distribution width (RBC) [Entitic vol] 49.9 fL 35.1-43.9 [facility] Erythrocyte distribution width (RBC) [Ratio] 15.6 % 11.6-14.6 [facility] Immature granulocytes/100 WBC (Bld) 0.400 % 0.0-0.9 [facility] Comment on above: IG% - Immature Granu locytes (promyelocytes, myelocytes and metamyelocytes) > 1% indicates that a LEFT SHIFT is Present. MCH (RBC) [Entitic mass] 27.5 pg 27.0-32.0 [facility] Nucleated RBC/100 WBC (Bld) [Ratio] 0 % 0-5 [facility] MCHC Auto (RBC) [Mass/Vol]Or dered By: Nehemias Arizmendi on 03-30-2023 MCHC (RBC) [Mass/Vol] 31.2 g/dL 32-36 [facility] No Panel InformationOrdered By: Nehemias Arizmendi on 03-30-2023 Estimated GFR (MDRD) Amer 87 mL/min >60 [facility] Comment on above: GFR Calc Estimated GFR (MDRD) Non-Af Amer 72 mL/min >60 [facility] Comment on above: Non- GFR Calc Platelets bldOrdered By: Norma Arizmendi on 03-30-2023 Platelets (Bld) [#/Vol] 248 10*3/uL 150-450 [facility] Serum or plasma albumin jasiel urement (mass/volume)Ordered By: Nehemias Arizmendi on 03-30-2023 Albumin [Mass/Vol] 3.4 g/dL 3.2-5.0 [facility] Serum or plasma albumin/glob ulin mass ratioOrdered By: Nehemias Arizmendi on 03-30-2023 Albumin/Globulin [Mass ratio] 0.8 {ratio} 0.9-2.4 [facility] Serum or plasma calcium jasiel urement (mass/volume)Ordered By: Nehemias Arizmendi on 03-30-2023 Calcium [Mass/Vol] 9.2 mg/dL 8.5-10.1 [facility] Serum or plasma creatinine m easurement (mass/volume)Ordered By: Nehemias Arizmendi on 03-30-2023 Creatinine [Mass/Vol] 0.86 mg/dL 0.55-1.02 [facility] Comment on above: The validity of the calculated GFR & GFRAA in patients over 70 years has not been determined. Clinical correlation is essential. Serum or plasma urea nitroge n measurement (mass/volume)Ordered By: Nehemias Arizmendi on 03-30-2023 Urea nitrogen [Mass/Vol] 22 mg/dL 7-18 [facility] Thin prep Papanicolaou smear with manual screeningOrdered By: Nehemias Arizmendi on 03-30-2023 Thin prep Papanicolaou smear with manual screening 12 U/L 15-37 [facility] Thin prep Papanicolaou smear with manual screening 7 5-15 [facility] Basophil percentageOrdered B y: Nehemias Arizmendi on 01-11-2023 Chloride [Moles/Vol] 104 mmol/L 98-107 [facility] Glucose [Mass/Vol] 204 mg/dL 74-106 [facility] Comment on above: Glucose result great er than or equal to 200 mg/dLsuggests DIABETES MELLITUS per A.D.A. criteria. Potassium [Moles/Vol] 3.8 mmol/L 3.5-5.1 [facility] Sodium [Moles/Vol] 140 mmol/L 136-145 [facility] Laboratory - Chemistry and C hemistry - challengeOrdered By: Nehemias Arizmendi on 01-11-2023 CO2 [Moles/Vol] 32.0 mmol/L 21.0-32.0 [facility] Urea nitrogen/Creatinine [Mass ratio] 42.5 mg/mg 10-20 [facility] No Panel InformationOrdered By: Nehemias Arizmendi on 01-11-2023 Estimated GFR (MDRD) Amer 105 mL/min >60 [facility] Comment on above: GFR Calc Estimated GFR (MDRD) Non-Af Amer 87 mL/min >60 [facility] Comment on above: Non- GFR Calc Serum or plasma calcium jasiel urement (mass/volume)Ordered By: Nehemias Arizmendi on 01-11-2023 Calcium [Mass/Vol] 9.3 mg/dL 8.5-10.1 [facility] Serum or plasma creatinine m easurement (mass/volume)Ordered By: Nehemias Arizmendi on 01-11-2023 Creatinine [Mass/Vol] 0.73 mg/dL 0.55-1.02 [facility] Comment on above: The validity of the calculated GFR & GFRAA in patients over 70 years has not been determined. Clinical correlation is essential. Serum or plasma urea nitroge n measurement (mass/volume)Ordered By: Nehemias Arizmendi on 01-11-2023 Urea nitrogen [Mass/Vol] 31 mg/dL 01-12 [facility] Thin prep Papanicolaou smear with manual screeningOrdered By: Nehemias Arizmendi on 01-11-2023 Thin prep Papanicolaou smear with manual screening 11-09 [facility] .Auto Diffon 01-09-2023 Basophil, Absolute 0.0 10 3/mcL Normal 0.0-0.3 [facility] ([place]) Comment on above: Performed By: #### L IPID, GFR, PBNP, ADIFF, CBC, ANEU, BMP, MG #### [address] [address] Basophils/100 WBC (Bld) 0.1 % Normal 0.0-2.5 [facility] ([place]) Comment on above: Performed By: #### L IPID, GFR, PBNP, ADIFF, CBC, ANEU, BMP, MG #### [address] [address] Eosinophil, Absolute 0.0 10 3/mcL Normal 0.0-0.7 [facility] ([place]) Comment on above: Performed By: #### L IPID, GFR, PBNP, ADIFF, CBC, ANEU, BMP, MG #### [address] [address] Eosinophils/100 WBC (Bld) 0.0 % Normal 0.0-6.0 [facility] ([place]) Comment on above: Performed By: #### L IPID, GFR, PBNP, ADIFF, CBC, ANEU, BMP, MG #### [address] [address] Lymphocyte, Absolute 0.5 10 3/mcL Low 0.9-4.3 [facility] ([place]) Comment on above: Performed By: #### L IPID, GFR, PBNP, ADIFF, CBC, ANEU, BMP, MG #### [address] [address] Lymphocytes/100 WBC (Bld) 6.1 % Low 20.0-40.0 [facility] ([place]) Comment on above: Performed By: #### L IPID, GFR, PBNP, ADIFF, CBC, ANEU, BMP, MG #### [address] [address] Monocyte, Absolute 0.4 10 3/mcL Normal 0.1-1.4 [facility] ([place]) Comment on above: Performed By: #### L IPID, GFR, PBNP, ADIFF, CBC, ANEU, BMP, MG #### [address] [address] Monocytes/100 WBC (Bld) 4.7 % Normal 2.0-13.0 [facility] ([place]) Comment on above: Performed By: #### L IPID, GFR, PBNP, ADIFF, CBC, ANEU, BMP, MG #### [address] [address] Neutrophils/100 WBC (Bld) 89.1 % High 50.0-75.0 [facility] ([place]) Comment on above: Performed By: #### L IPID, GFR, PBNP, ADIFF, CBC, ANEU, BMP, MG #### [address] [address] .GFRon 01-09-2023 GFR Non- >60 Normal [facility] ([place]) Comment on above: Result Comment: GFR Population [...] PBNP, ADIFF, CBC, ANEU, BMP, MG #### [address] [address] GFR >60 Normal [facility] ([place]) Comment on above: Result Comment: GFR Population [...] PBNP, ADIFF, CBC, ANEU, BMP, MG #### [address] [address] .NEUABSon 01-09-2023 Neutrophil, Absolute 7.8 10 3/mcL Normal 2.3-8.1 [facility] ([place]) Comment on above: Performed By: #### L IPID, GFR, PBNP, ADIFF, CBC, ANEU, BMP, MG #### [address] [address] BMPon 01-09-2023 BUN/Creatinine Ratio 53.7 ratio High 10.0-22.0 [facility] ([place]) Comment on above: Performed By: #### L IPID, GFR, PBNP, ADIFF, CBC, ANEU, BMP, MG #### [address] [address] Calcium [Mass/Vol] 8.5 mg/dL Low 8.7-10.4 [facility] ([place]) Comment on above: Performed By: #### L IPID, GFR, PBNP, ADIFF, CBC, ANEU, BMP, MG #### [address] [address] Chloride [Moles/Vol] 104 mmol/L Normal 98-110 [facility] ([place]) Comment on above: Performed By: #### L IPID, GFR, PBNP, ADIFF, CBC, ANEU, BMP, MG #### [address] [address] CO2 [Moles/Vol] 34 mmol/L High 22-32 [facility] ([place]) Comment on above: Performed By: #### L IPID, GFR, PBNP, ADIFF, CBC, ANEU, BMP, MG #### [address] [address] Creatinine [Mass/Vol] 0.41 mg/dL Low 0.50-1.20 [facility] [place] Comment on above: Performed By: #### L IPID, GFR, PBNP, ADIFF, CBC, ANEU, BMP, MG #### [address] [address] Electrolyte Balance 4.0 mEq/L Normal 4.0-15.0 [facility] ([place]) Comment on above: Performed By: #### L IPID, GFR, PBNP, ADIFF, CBC, ANEU, BMP, MG #### [address] [address] Glucose [Mass/Vol] 226 mg/dL High 70-110 [facility] ([place]) Comment on above: Performed By: #### L IPID, GFR, PBNP, ADIFF, CBC, ANEU, BMP, MG #### [address] [address] Potassium [Moles/Vol] 4.5 mmol/L Normal 3.5-5.0 [facility] [place] Comment on above: Performed By: #### L IPID, GFR, PBNP, ADIFF, CBC, ANEU, BMP, MG #### [place] [address] Sodium [Moles/Vol] 142 mmol/L Normal 136-145 [facility] ([place]) Comment on above: Performed By: #### L IPID, GFR, PBNP, ADIFF, CBC, ANEU, BMP, MG #### [place] [id number] Urea nitrogen [Mass/Vol] 22.0 mg/dL Normal 8.0-22.0 [facility] ([place]) Comment on above: Performed By: #### L IPID, GFR, PBNP, ADIFF, CBC, ANEU, BMP, MG #### [place] [id number] CBCon 01-09-2023 Erythrocyte distribution width (RBC) [Ratio] 14.3 % Normal 11.5-15.5 [facility] ([place]) Comment on above: Performed By: #### B MP, ANEU, ADIFF, MG, PHOS, CBC, GFR #### [place] [address] Hematocrit (Bld) [Volume fraction] 34.4 % Normal 34.0-46.0 [facility] ([place]) Comment on above: Performed By: #### B MP, ANEU, ADIFF, MG, PHOS, CBC, GFR #### [place] [address] Hgb 11.4 G/dL Low 12.0-16.0 [facility] ([place]) Comment on above: Performed By: #### B MP, ANEU, ADIFF, MG, PHOS, CBC, GFR #### [place] [address] MCH (RBC) [Entitic mass] 28.6 pg Normal 27.0-33.0 [facility] ([place]) Comment on above: Performed By: #### B MP, ANEU, ADIFF, MG, PHOS, CBC, GFR #### [place] [address] MCHC 33.1 G/dL Normal 32.0-36.0 [facility] ([place]) Comment on above: Performed By: #### B MP, ANEU, ADIFF, MG, PHOS, CBC, GFR #### [place] [address] MCV (RBC) [Entitic vol] 86.3 fL Normal 80.0-99.0 [facility] ([place]) Comment on above: Performed By: #### B MP, ANEU, ADIFF, MG, PHOS, CBC, GFR #### [place] [address] Platelet 307 10 3/mcL Normal 150-450 [facility] ([place]) Comment on above: Performed By: #### B MP, ANEU, ADIFF, MG, PHOS, CBC, GFR #### [place] [address] Platelet mean volume (Bld) [Entitic vol] 6.7 fL Normal 6.6-10.5 [facility] ([place]) Comment on above: Performed By: #### B MP, ANEU, ADIFF, MG, PHOS, CBC, GFR #### [place] [address] RBC 3.98 10 6/mcL Low 4.10-5.30 [facility] ([place]) Comment on above: Performed By: #### B MP, ANEU, ADIFF, MG, PHOS, CBC, GFR #### [place] [address] WBC 8.7 10 3/mcL Normal 4.5-10.8 [facility] ([place]) Comment on above: Performed By: #### B MP, ANEU, ADIFF, MG, PHOS, CBC, GFR #### [place] [address] LABORATORYOrdered By: Rebeca Siu on 01-09-2023 Blood Glucose Testing Reason Routine (01/09/23 12:25 PM) [facility] Work Phone: Glucose [Mass/Vol] 241 mg/dL Invalid Interpretation Code 70 - 110 mg/dL [facility] Work Phone: LABORATORYOrdered By: Lisa benitez on 01-09-2023 Glucose [Mass/Vol] 228 mg/dL Invalid Interpretation Code 70 - 110 mg/dL [facility] Work Phone: LABORATORYOrdered By: SYSTEM SYSTEM [...] 01-09-2023 Magnesium [Mass/Vol] 1.9 mg/dL Normal 1.6-2.4 [facility] ([place]) Comment on above: Performed By: #### L IPID, GFR, PBNP, ADIFF, CBC, ANEU, BMP, MG #### [address] [address] PHOSon 01-09-2023 Phosphate [Mass/Vol] 2.5 mg/dL Normal 2.4-5.1 [facility] ([place]) Comment on above: Result Comment: No te - New Reference Range in effect 20 Performed By: #### L IPID, GFR, PBNP, ADIFF, CBC, ANEU, BMP, MG #### [place] [address] .Auto Diffon 01-08-2023 Basophil, Absolute 0.0 10 3/mcL Normal 0.0-0.3 [facility] ([place]) Comment on above: Performed By: #### L IPID, GFR, PBNP, ADIFF, CBC, ANEU, BMP, MG #### [address] [address] Basophils/100 WBC (Bld) 0.4 % Normal 0.0-2.5 [facility] ([place]) Comment on above: Performed By: #### L IPID, GFR, PBNP, ADIFF, CBC, ANEU, BMP, MG #### [address] [address] Eosinophil, Absolute 0.0 10 3/mcL Normal 0.0-0.7 [facility] ([place]) Comment on above: Performed By: #### L IPID, GFR, PBNP, ADIFF, CBC, ANEU, BMP, MG #### [address] [address] Eosinophils/100 WBC (Bld) 0.0 % Normal 0.0-6.0 [facility] ([place]) Comment on above: Performed By: #### L IPID, GFR, PBNP, ADIFF, CBC, ANEU, BMP, MG #### [address] [address] Lymphocyte, Absolute 0.6 10 3/mcL Low 0.9-4.3 [facility] ([place]) Comment on above: Performed By: #### L IPID, GFR, PBNP, ADIFF, CBC, ANEU, BMP, MG #### [address] [address] Lymphocytes/100 WBC (Bld) 5.2 % Low 20.0-40.0 [facility] ([place]) Comment on above: Performed By: #### L IPID, GFR, PBNP, ADIFF, CBC, ANEU, BMP, MG #### [address] [address] Monocyte, Absolute 0.7 10 3/mcL Normal 0.1-1.4 [facility] ([place]) Comment on above: Performed By: #### L IPID, GFR, PBNP, ADIFF, CBC, ANEU, BMP, MG #### [address] [address] Monocytes/100 WBC (Bld) 5.8 % Normal 2.0-13.0 [facility] ([place]) Comment on above: Performed By: #### L IPID, GFR, PBNP, ADIFF, CBC, ANEU, BMP, MG #### [address] [address] Neutrophils/100 WBC (Bld) 88.6 % High 50.0-75.0 [facility] ([place]) Comment on above: Performed By: #### L IPID, GFR, PBNP, ADIFF, CBC, ANEU, BMP, MG #### [address] [address] .GFRon 01-08-2023 GFR >60 Normal [facility] ([place]) Comment on above: Result Comment: GFR Population [...] PBNP, ADIFF, CBC, ANEU, BMP, MG #### [address] [address] GFR Non- >60 Normal [facility] ([place]) Comment on above: Result Comment: GFR Population [...] PBNP, ADIFF, CBC, ANEU, BMP, MG #### [address] [address] .NEUABSon 01-08-2023 Neutrophil, Absolute 10.4 10 3/mcL High 2.3-8.1 [facility] ([place]) Comment on above: Performed By: #### L IPID, GFR, PBNP, ADIFF, CBC, ANEU, BMP, MG #### [address] [address] A1Con 01-08-2023 HbA1c (Bld) [Mass fraction] 7.2 % High 4.0-6.0 [facility] ([place]) Comment on above: Performed By: #### L IPID, GFR, PBNP, ADIFF, CBC, ANEU, BMP, MG #### [address] [address] [facility] BUN/Creatinine Ratio 51.3 ratio High 10.0-22.0 [facility] ([place]) Comment on above: Performed By: #### L IPID, GFR, PBNP, ADIFF, CBC, ANEU, BMP, MG #### [address] [address] Calcium [Mass/Vol] 8.3 mg/dL Low 8.7-10.4 [facility] ([place]) Comment on above: Performed By: #### L IPID, GFR, PBNP, ADIFF, CBC, ANEU, BMP, MG #### [address] [address] Chloride [Moles/Vol] 104 mmol/L Normal 98-110 [facility] ([place]) Comment on above: Performed By: #### L IPID, GFR, PBNP, ADIFF, CBC, ANEU, BMP, MG #### [address] [address] CO2 [Moles/Vol] 29 mmol/L Normal 22-32 [facility] ([place]) Comment on above: Performed By: #### L IPID, GFR, PBNP, ADIFF, CBC, ANEU, BMP, MG #### [address] [address] Creatinine [Mass/Vol] 0.39 mg/dL Low 0.50-1.20 [facility] [place] Comment on above: Performed By: #### L IPID, GFR, PBNP, ADIFF, CBC, ANEU, BMP, MG #### [address] [address] Electrolyte Balance 8.0 mEq/L Normal 4.0-15.0 [facility] ([place]) Comment on above: Performed By: #### L IPID, GFR, PBNP, ADIFF, CBC, ANEU, BMP, MG #### [place] [id number] Glucose [Mass/Vol] 188 mg/dL High 70-110 [facility] ([place]) Comment on above: Performed By: #### L IPID, GFR, PBNP, ADIFF, CBC, ANEU, BMP, MG #### [address] [address] Potassium [Moles/Vol] 4.2 mmol/L Normal 3.5-5.0 [facility] ([place]) Comment on above: Result Comment: Spec imen slightly hemolyzed. Performed By: #### L IPID, GFR, PBNP, ADIFF, CBC, ANEU, BMP, MG #### [place] [id number] Sodium [Moles/Vol] 141 mmol/L Normal 136-145 [facility] ([place]) Comment on above: Performed By: #### L IPID, GFR, PBNP, ADIFF, CBC, ANEU, BMP, MG #### [place] [id number] Urea nitrogen [Mass/Vol] 20.0 mg/dL Normal 8.0-22.0 [facility] ([place]) Comment on above: Performed By: #### L IPID, GFR, PBNP, ADIFF, CBC, ANEU, BMP, MG #### [address] [address] CBCon 01-08-2023 Erythrocyte distribution width (RBC) [Ratio] 13.9 % Normal 11.5-15.5 [facility] ([place]) Comment on above: Performed By: #### L IPID, GFR, PBNP, ADIFF, CBC, ANEU, BMP, MG #### [place] [id number] Hematocrit (Bld) [Volume fraction] 32.1 % Low 34.0-46.0 [facility] ([place] Comment on above: Performed By: #### L IPID, GFR, PBNP, ADIFF, CBC, ANEU, BMP, MG #### [address] [address] Hgb 10.6 G/dL Low 12.0-16.0 [facility] ([place] Comment on above: Performed By: #### L IPID, GFR, PBNP, ADIFF, CBC, ANEU, BMP, MG #### [place] [address] MCH (RBC) [Entitic mass] 28.5 pg Normal 27.0-33.0 [facility] ([place] Comment on above: Performed By: #### L IPID, GFR, PBNP, ADIFF, CBC, ANEU, BMP, MG #### [place] [address] MCHC 32.9 G/dL Normal 32.0-36.0 [facility] ([place] Comment on above: Performed By: #### L IPID, GFR, PBNP, ADIFF, CBC, ANEU, BMP, MG #### [place] [address] MCV (RBC) [Entitic vol] 86.4 fL Normal 80.0-99.0 [facility] ([place] Comment on above: Performed By: #### L IPID, GFR, PBNP, ADIFF, CBC, ANEU, BMP, MG #### [place] [address] Platelet 279 10 3/mcL Normal 150-450 [facility] ([place] Comment on above: Performed By: #### L IPID, GFR, PBNP, ADIFF, CBC, ANEU, BMP, MG #### [place] [address] Platelet mean volume (Bld) [Entitic vol] 7.3 fL Normal 6.6-10.5 [facility] ([place] Comment on above: Performed By: #### L IPID, GFR, PBNP, ADIFF, CBC, ANEU, BMP, MG #### [place] [address] RBC 3.72 10 6/mcL Low 4.10-5.30 [facility] ([place] Comment on above: Performed By: #### L IPID, GFR, PBNP, ADIFF, CBC, ANEU, BMP, MG #### [place] [address] WBC 11.7 10 3/mcL High 4.5-10.8 [facility] ([place] Comment on above: Performed By: #### L IPID, GFR, PBNP, ADIFF, CBC, ANEU, BMP, MG #### [address] [address] CRPHSon 01-08-2023 CRP, High Sensitive 120.66 mg/L High 0.20-3.00 [facility] ([place]) Comment on above: Result Comment: Spec imen [...] PBNP, ADIFF, CBC, ANEU, BMP, MG #### [place] [id number] ESRon 01-08-2023 Erythrocyte Sed Rate 109 mm/hr High 0-30 [facility] ([place]) Comment on above: Performed By: #### L IPID, GFR, PBNP, ADIFF, CBC, ANEU, BMP, MG #### [place] [id number] LABORATORYOrdered By: Christianne Rivera on 01-08-2023 Blood Glucose Testing Reason Routine (01/08/23 9:44 PM) [facility] Work Phone: Glucose [Mass/Vol] 303 mg/dL Invalid Interpretation Code 70 - 110 mg/dL [facility] Work Phone: Blood Glucose Testing Reason Routine (01/08/23 4:17 PM) [facility] Work Phone: LABORATORYOrdered By: People to Remember SYSTEM on 01-08-2023 Basophils (Bld) [#/Vol] 0.0 [...] LDHon 01-08-2023 LDH 263 U/L High 120-246 [facility] ([place] Comment on above: Performed By: #### L IPID, GFR, PBNP, ADIFF, CBC, ANEU, BMP, MG #### [address] [address] MGon 01-08-2023 Magnesium [Mass/Vol] 1.8 mg/dL Normal 1.6-2.4 [facility] ([place] Comment on above: Performed By: #### L IPID, GFR, PBNP, ADIFF, CBC, ANEU, BMP, MG #### [address] [address] PHOSon 01-08-2023 Phosphate [Mass/Vol] 2.5 mg/dL Normal 2.4-5.1 [facility] ([place]) Comment on above: Result Comment: No te - New Reference Range in effect 20 Performed By: #### L IPID, GFR, PBNP, ADIFF, CBC, ANEU, BMP, MG #### [address] [address] XR CHEST 2 VIEWSon 3 XR CHEST [...] 01/08/2023 1:58:59 PM Ordering Provider: WINIFRED Mora [facility] ([place]) .Auto Diffon 01-07-2023 Basophil, Absolute 0.0 10 3/mcL Normal 0.0-0.3 [facility]) Comment on above: Performed By: #### L IPID, GFR, PBNP, ADIFF, CBC, ANEU, BMP, MG #### [address] [address] Eosinophil, Absolute 0.0 10 3/mcL Normal 0.0-0.7 [facility] ([place]) Comment on above: Performed By: #### L IPID, GFR, PBNP, ADIFF, CBC, ANEU, BMP, MG #### [address] [address] Lymphocyte, Absolute 0.4 10 3/mcL Low 0.9-4.3 [facility] ([place] Comment on above: Performed By: #### L IPID, GFR, PBNP, ADIFF, CBC, ANEU, BMP, MG #### [address] [address] Monocyte, Absolute 0.5 10 3/mcL Normal 0.1-1.4 [facility] ([place] Comment on above: Performed By: #### L IPID, GFR, PBNP, ADIFF, CBC, ANEU, BMP, MG #### [address] [address] .Auto DiffOrdered By: SYSTEM SYSTEM on 01-07-2023 Basophils/100 WBC (Bld) 0.1 % Normal 0.0-2.5 Workflow SS Comment on above: Performed By: #### L IPID, GFR, PBNP, ADIFF, CBC, ANEU, BMP, MG #### [address] [address] Eosinophils/100 WBC (Bld) 0.0 % Normal 0.0-6.0 AH Workflow SS Comment on above: Performed By: #### L IPID, GFR, PBNP, ADIFF, CBC, ANEU, BMP, MG #### [address] [address] Lymphocytes/100 WBC (Bld) 4.6 % Low 20.0-40.0 [facility] Workflow SS Comment on above: Performed By: #### L IPID, GFR, PBNP, ADIFF, CBC, ANEU, BMP, MG #### [address] [address] Monocytes/100 WBC (Bld) 6.2 % Normal 2.0-13.0 [facility] Workflow SS Comment on above: Performed By: #### L IPID, GFR, PBNP, ADIFF, CBC, ANEU, BMP, MG #### [address] [address] Neutrophils/100 WBC (Bld) 89.1 % High 50.0-75.0 [facility] Workflow SS Comment on above: Performed By: #### L IPID, GFR, PBNP, ADIFF, CBC, ANEU, BMP, MG #### [address] [address] .GFRon 01-07-2023 GFR Non- >60 Normal [facility] ([place]) Comment on above: Result Comment: GFR Population [...] PBNP, ADIFF, CBC, ANEU, BMP, MG #### [address] [address] GFR >60 Normal [facility] ([place]) Comment on above: Result Comment: GFR Population [...] PBNP, ADIFF, CBC, ANEU, BMP, MG #### [address] [address] .NEUABSon 01-07-2023 Neutrophil, Absolute 7.4 10 3/mcL Normal 2.3-8.1 [facility] ([place]) Comment on above: Performed By: #### L IPID, GFR, PBNP, ADIFF, CBC, ANEU, BMP, MG #### [address] [address] BFPRon 01-07-2023 Body Fluid Path Review Negative for mark gnant cells. Marked acute inflammation present. Normal [facility] ([place]) Comment on above: Order Comment: Added by Discern Result Comment: Elec tronically signed by: GILBERTO BURNETTE 01.07.2023 12:29 EDT Performed By: #### L IPID, GFR, PBNP, ADIFF, CBC, ANEU, BMP, MG #### [address] [address] BMPon 01-07-2023 BUN/Creatinine Ratio 41.0 ratio High 10.0-22.0 [facility] ([place]) Comment on above: Performed By: #### L IPID, GFR, PBNP, ADIFF, CBC, ANEU, BMP, MG #### [address] [address] BMPOrdered By: SYSTEM SYSTEM on 01-07-2023 Calcium [Mass/Vol] 8.8 mg/dL Normal 8.7-10.4 AH ADM SS Comment on above: Performed By: #### L IPID, GFR, PBNP, ADIFF, CBC, ANEU, BMP, MG #### [place] [id number] Chloride [Moles/Vol] 108 mmol/L Normal 98-110 AH A DM SS Comment on above: Performed By: #### L IPID, GFR, PBNP, ADIFF, CBC, ANEU, BMP, MG #### [place] [id number] CO2 [Moles/Vol] 29 mmol/L Normal 22-32 AH ADM SS Comment on above: Performed By: #### L IPID, GFR, PBNP, ADIFF, CBC, ANEU, BMP, MG #### [place] [id number] Creatinine [Mass/Vol] 0.39 mg/dL Low 0.50-1.20 AH ADM SS Comment on above: Performed By: #### L IPID, GFR, PBNP, ADIFF, CBC, ANEU, BMP, MG #### [place] [address] Electrolyte Balance 3.0 mEq/L Low 4.0-15.0 AH AD M SS Comment on above: Performed By: #### L IPID, GFR, PBNP, ADIFF, CBC, ANEU, BMP, MG #### [place] [id number] Glucose [Mass/Vol] 200 mg/dL High 70-110 AH ADM SS Comment on above: Performed By: #### L IPID, GFR, PBNP, ADIFF, CBC, ANEU, BMP, MG #### [place] [id number] Potassium [Moles/Vol] 4.2 mmol/L Normal 3.5-5.0 AH ADM SS Comment on above: Performed By: #### L IPID, GFR, PBNP, ADIFF, CBC, ANEU, BMP, MG #### [place] [id number] Sodium [Moles/Vol] 140 mmol/L Normal 136-145 AH ADM SS Comment on above: Performed By: #### L IPID, GFR, PBNP, ADIFF, CBC, ANEU, BMP, MG #### [place] [id number] Urea nitrogen [Mass/Vol] 16.0 mg/dL Normal 8.0-22.0 AH ADM SS Comment on above: Performed By: #### L IPID, GFR, PBNP, ADIFF, CBC, ANEU, BMP, MG #### [place] [address] CBCOrdered By: SYSTEM SYSTEM on 01-07-2023 Erythrocyte distribution width (RBC) [Ratio] 14.2 % Normal 11.5-15.5 AH Workflow SS Comment on above: Performed By: #### L IPID, GFR, PBNP, ADIFF, CBC, ANEU, BMP, MG #### [place] [address] Hematocrit (Bld) [Volume fraction] 32.2 % Low 34.0-46.0 AH Workflow SS Comment on above: Performed By: #### L IPID, GFR, PBNP, ADIFF, CBC, ANEU, BMP, MG #### [place] [address] MCH (RBC) [Entitic mass] 28.7 pg Normal 27.0-33.0 AH Workflow SS Comment on above: Performed By: #### L IPID, GFR, PBNP, ADIFF, CBC, ANEU, BMP, MG #### [place] [address] MCHC 33.1 G/dL Normal 32.0-36.0 AH Workflow SS Comment on above: Performed By: #### L IPID, GFR, PBNP, ADIFF, CBC, ANEU, BMP, MG #### [place] [address] MCV (RBC) [Entitic vol] 86.8 fL Normal 80.0-99.0 AH Workflow SS Comment on above: Performed By: #### L IPID, GFR, PBNP, ADIFF, CBC, ANEU, BMP, MG #### [place] [address] Platelet mean volume (Bld) [Entitic vol] 7.3 fL Normal 6.6-10.5 AH Workflow SS Comment on above: Performed By: #### L IPID, GFR, PBNP, ADIFF, CBC, ANEU, BMP, MG #### [address] [address] CBCon 01-07-2023 Hgb 10.7 G/dL Low 12.0-16.0 [facility] ([place] Comment on above: Performed By: #### L IPID, GFR, PBNP, ADIFF, CBC, ANEU, BMP, MG #### [place] [address] Platelet 245 10 3/mcL Normal 150-450 [facility] ([place] Comment on above: Performed By: #### L IPID, GFR, PBNP, ADIFF, CBC, ANEU, BMP, MG #### [address] [address] RBC 3.71 10 6/mcL Low 4.10-5.30 [facility] ([place] Comment on above: Performed By: #### L IPID, GFR, PBNP, ADIFF, CBC, ANEU, BMP, MG #### [place] [id number] WBC 8.3 10 3/mcL Normal 4.5-10.8 [facility] ([place] Comment on above: Performed By: #### L IPID, GFR, PBNP, ADIFF, CBC, ANEU, BMP, MG #### [place] [address] CT THORAX W/O CONTRASTon CT THORAX W/O [...] 01/07/2023 12:15:42 AM Ordering Provider: WINIFRED Mora [facility] ([place]) LABORATORYOrdered By: SYSTEM SYSTEM on 01-07-2023 Basophils [...] PBNP, ADIFF, CBC, ANEU, BMP, MG #### [place] [id number] [address] [place] [address] Cholesterol in HDL [Mass/Vol] 42 mg/dL Normal 40-59 AH ADM SS Comment on above: Performed By: #### L IPID, GFR, PBNP, ADIFF, CBC, ANEU, BMP, MG #### [place] [address] [address] [place] [address] Cholesterol in LDL [Mass/Vol] 64 mg/dL Normal 0-129 ADM SS Comment on above: Performed By: #### L IPID, GFR, PBNP, ADIFF, CBC, ANEU, BMP, MG #### [place] [id number] [address] [place] [address] Triglyceride [Mass/Vol] 65 mg/dL Normal 3-149 AH ADM SS Comment on above: Performed By: #### L IPID, GFR, PBNP, ADIFF, CBC, ANEU, BMP, MG #### [address] [address] MGOrdered By: SYSTEM SYSTEM on 01-07-2023 Magnesium [Mass/Vol] 2.0 mg/dL Normal 1.6-2.4 AH A DM SS Comment on above: Performed By: #### L IPID, GFR, PBNP, ADIFF, CBC, ANEU, BMP, MG #### [address] [address] PBNPon 01-07-2023 Natriuretic peptide B (Bld) [Mass/Vol] 583 pg/mL Normal 0-900 [facility] ([place] Comment on above: Result Comment: NT-p roBNP results of less than 300 pg/mL effectively rules out acute congestive heart failure with 99% negative predictive value. Performed By: #### L IPID, GFR, PBNP, ADIFF, CBC, ANEU, BMP, MG #### [address] [address] US CHESTon 01-07-2023 US CHEST ORIGINAL HISTORY: Effusion COMPARISON: Previous day FINDINGS: There is no drainable fluid collection. Interpreted by: Blanca Gutiérrez MD Preliminary Report By: Blanca Gutiérrez MD Electronically signed By Blanca Gutiérrez MD Dictated Date: 01/07/2023 10:00:13 AM Prelim Date: 01/07/2023 10:01:06 AM Sign Date: 01/07/2023 10:01:06 AM Ordering Provider: BONITA Mora [facility] ([place]) .Auto Diffon 01-06-2023 Basophil, Absolute 0.1 10 3/mcL Normal 0.0-0.3 [facility] ([place]) Comment on above: Performed By: #### L IPID, GFR, PBNP, ADIFF, CBC, ANEU, BMP, MG #### [address] [address] Basophils/100 WBC (Bld) 0.5 % Normal 0.0-2.5 [facility] ([place] Comment on above: Performed By: #### L IPID, GFR, PBNP, ADIFF, CBC, ANEU, BMP, MG #### [address] [address] Eosinophil, Absolute 0.0 10 3/mcL Normal 0.0-0.7 [facility] ([place]) Comment on above: Performed By: #### L IPID, GFR, PBNP, ADIFF, CBC, ANEU, BMP, MG #### [address] [address] Eosinophils/100 WBC (Bld) 0.1 % Normal 0.0-6.0 [facility] ([place] Comment on above: Performed By: #### L IPID, GFR, PBNP, ADIFF, CBC, ANEU, BMP, MG #### [address] [address] Lymphocyte, Absolute 0.9 10 3/mcL Normal 0.9-4.3 [facility] ([place]) Comment on above: Performed By: #### L IPID, GFR, PBNP, ADIFF, CBC, ANEU, BMP, MG #### [address] [address] Lymphocytes/100 WBC (Bld) 6.3 % Low 20.0-40.0 [facility] ([place] Comment on above: Performed By: #### L IPID, GFR, PBNP, ADIFF, CBC, ANEU, BMP, MG #### [address] [address] Monocyte, Absolute 1.5 10 3/mcL High 0.1-1.4 [facility] ([place] Comment on above: Performed By: #### L IPID, GFR, PBNP, ADIFF, CBC, ANEU, BMP, MG #### [address] [address] Monocytes/100 WBC (Bld) 10.4 % Normal 2.0-13.0 [facility] ([place] Comment on above: Performed By: #### L IPID, GFR, PBNP, ADIFF, CBC, ANEU, BMP, MG #### [address] [address] Neutrophils/100 WBC (Bld) 82.7 % High 50.0-75.0 [facility] ([place] Comment on above: Performed By: #### L IPID, GFR, PBNP, ADIFF, CBC, ANEU, BMP, MG #### [address] [address] .GFRon 01-06-2023 GFR >60 Normal [facility] ([place] Comment on above: Result Comment: GFR Population [...] PBNP, ADIFF, CBC, ANEU, BMP, MG #### [address] [address] GFR Non- >60 Normal [facility] ([place] Comment on above: Result Comment: GFR Population [...] PBNP, ADIFF, CBC, ANEU, BMP, MG #### [place] [id number] [address] [place] [address] .NEUABSon 01-06-2023 Neutrophil, Absolute 11.6 10 3/mcL High 2.3-8.1 A [facility] ([place]) Comment on above: Performed By: #### L IPID, GFR, PBNP, ADIFF, CBC, ANEU, BMP, MG #### [facility] [address] [place] [address] AMYBFon 01-06-2023 Amylase [Catalytic activity/Vol] 22 U/L Normal [facility] ([place]) Comment on above: Order Comment: Brandona aminataesis left lung Performed By: #### L IPID, GFR, PBNP, ADIFF, CBC, ANEU, BMP, MG #### [address] [address] Amylase BF Type Thoracentesis Normal [facility] ([place]) Comment on above: Order Comment: Brandona aminataesis [...] PBNP, ADIFF, CBC, ANEU, BMP, MG #### [place] [address] [address] [place] [address] BFCTon 01-06-2023 Cells Counted BF 100 Normal [facility] ([place] Comment on above: Order Comment: Left lung Performed By: #### L IPID, GFR, PBNP, ADIFF, CBC, ANEU, BMP, MG #### [address] [address] Lymphocytes/100 WBC (Bld) 2 % Normal [facility] ([place] Comment on above: Order Comment: Left lung Performed By: #### L IPID, GFR, PBNP, ADIFF, CBC, ANEU, BMP, MG #### [place] [address] [place] [address] Mononuclear cell % BF 9 % Normal [facility] [place] Comment on above: Order Comment: Left lung Performed By: #### L IPID, GFR, PBNP, ADIFF, CBC, ANEU, BMP, MG #### [address] [address] Neutrophils/100 WBC (Bld) 89 % Normal [facility] ([place] Comment on above: Order Comment: Left lung Performed By: #### L IPID, GFR, PBNP, ADIFF, CBC, ANEU, BMP, MG #### [address] [address] Body Fluid Source Thoracentesis Normal [facility] ([place] Comment on above: Order Comment: Left lung [...] PBNP, ADIFF, CBC, ANEU, BMP, MG #### [address] [address] Total Nucleated Cells 2819 /mm3 Normal [facility] [place] Comment on above: Order Comment: Left lung Performed By: #### L IPID, GFR, PBNP, ADIFF, CBC, ANEU, BMP, MG #### [address] [address] BMPon 01-06-2023 BUN/Creatinine Ratio 50.0 ratio High 10.0-22.0 [facility] ([place] Comment on above: Performed By: #### L IPID, GFR, PBNP, ADIFF, CBC, ANEU, BMP, MG #### [address] [address] Calcium [Mass/Vol] 8.3 mg/dL Low 8.7-10.4 [facility] ([place] Comment on above: Performed By: #### L IPID, GFR, PBNP, ADIFF, CBC, ANEU, BMP, MG #### [address] [address] Chloride [Moles/Vol] 108 mmol/L Normal 98-110 [facility] ([place] Comment on above: Performed By: #### L IPID, GFR, PBNP, ADIFF, CBC, ANEU, BMP, MG #### [address] [address] CO2 [Moles/Vol] 25 mmol/L Normal 22-32 [facility] ([place] Comment on above: Performed By: #### L IPID, GFR, PBNP, ADIFF, CBC, ANEU, BMP, MG #### [place] [id number] Creatinine [Mass/Vol] 0.44 mg/dL Low 0.50-1.20 [facility] [place] Comment on above: Performed By: #### L IPID, GFR, PBNP, ADIFF, CBC, ANEU, BMP, MG #### [address] [address] Electrolyte Balance 7.0 mEq/L Normal 4.0-15.0 [facility] ([place] Comment on above: Performed By: #### L IPID, GFR, PBNP, ADIFF, CBC, ANEU, BMP, MG #### [address] [address] Glucose [Mass/Vol] 169 mg/dL High 70-110 [facility] ([place] Comment on above: Performed By: #### L IPID, GFR, PBNP, ADIFF, CBC, ANEU, BMP, MG #### [address] [address] Potassium [Moles/Vol] 3.6 mmol/L Normal 3.5-5.0 [facility] [place] Comment on above: Performed By: #### L IPID, GFR, PBNP, ADIFF, CBC, ANEU, BMP, MG #### [place] [address] Sodium [Moles/Vol] 140 mmol/L Normal 136-145 [facility] ([place] Comment on above: Performed By: #### L IPID, GFR, PBNP, ADIFF, CBC, ANEU, BMP, MG #### [place] [address] Urea nitrogen [Mass/Vol] 22.0 mg/dL Normal 8.0-22.0 [facility] ([place] Comment on above: Performed By: #### L IPID, GFR, PBNP, ADIFF, CBC, ANEU, BMP, MG #### [place] [address] CBCon 01-06-2023 Erythrocyte distribution width (RBC) [Ratio] 14.6 % Normal 11.5-15.5 [facility] ([place] Comment on above: Performed By: #### L IPID, GFR, PBNP, ADIFF, CBC, ANEU, BMP, MG #### [place] [address] Hematocrit (Bld) [Volume fraction] 32.4 % Low 34.0-46.0 [facility] ([place] Comment on above: Performed By: #### L IPID, GFR, PBNP, ADIFF, CBC, ANEU, BMP, MG #### [place] [address] Hgb 10.3 G/dL Low 12.0-16.0 [facility] ([place] Comment on above: Performed By: #### L IPID, GFR, PBNP, ADIFF, CBC, ANEU, BMP, MG #### [place] [address] MCH (RBC) [Entitic mass] 28.3 pg Normal 27.0-33.0 [facility] ([place] Comment on above: Performed By: #### L IPID, GFR, PBNP, ADIFF, CBC, ANEU, BMP, MG #### [place] [address] MCHC 31.8 G/dL Low 32.0-36.0 [facility] ([place] Comment on above: Performed By: #### L IPID, GFR, PBNP, ADIFF, CBC, ANEU, BMP, MG #### [place] [address] MCV (RBC) [Entitic vol] 88.9 fL Normal 80.0-99.0 [facility] ([place] Comment on above: Performed By: #### L IPID, GFR, PBNP, ADIFF, CBC, ANEU, BMP, MG #### [place] [address] Platelet 272 10 3/mcL Normal 150-450 [facility] ([place] Comment on above: Performed By: #### L IPID, GFR, PBNP, ADIFF, CBC, ANEU, BMP, MG #### [place] [address] Platelet mean volume (Bld) [Entitic vol] 7.3 fL Normal 6.6-10.5 [facility] ([place] Comment on above: Performed By: #### L IPID, GFR, PBNP, ADIFF, CBC, ANEU, BMP, MG #### [place] [address] RBC 3.65 10 6/mcL Low 4.10-5.30 [facility] ([place] Comment on above: Performed By: #### L IPID, GFR, PBNP, ADIFF, CBC, ANEU, BMP, MG #### [place] [address] WBC 14.0 10 3/mcL High 4.5-10.8 [facility] ([place] Comment on above: Performed By: #### L IPID, GFR, PBNP, ADIFF, CBC, ANEU, BMP, MG #### [place] [address] GLUBFon 01-06-2023 Glucose BF 168.0 mg/dL Normal [facility] ([place] Comment on above: Order Comment: Left lung Performed By: #### L IPID, GFR, PBNP, ADIFF, CBC, ANEU, BMP, MG #### [place] [address] [place] [address] Glucose Body Fluid Spec Type Thoracentesis Normal [facility] ([place] Comment on above: Order Comment: Left lung [...] PBNP, ADIFF, CBC, ANEU, BMP, MG #### [place] [address] [place] [address] LABORATORYOrdered By: Guadalupe Barboza on 01-06-2023 Appearance [...] BF 151.0 U/L Normal [facility] ([place]) Comment on above: Order Comment: Jayda coatesesis left lung Performed By: #### L IPID, GFR, PBNP, ADIFF, CBC, ANEU, BMP, MG #### [address] [address] LDH Body Fluid Spec Type Thoracentesis Normal [facility] ([place] Comment on above: Order Comment: Brandona centesis [...] PBNP, ADIFF, CBC, ANEU, BMP, MG #### [address] [address] MGon 01-06-2023 Magnesium [Mass/Vol] 1.6 mg/dL Normal 1.6-2.4 [facility] ([place] Comment on above: Performed By: #### L IPID, GFR, PBNP, ADIFF, CBC, ANEU, BMP, MG #### [address] [address] No Panel Informationon 01-06 Culture Body Fluid Culture has been rec eived in lab and is no growth to date. Routine cultures are held for 5 days. [facility] Work Phone: GS Sedimented 3+ Polymorphonuclear cells 2+ Mononuclear cells No organisms seen. [facility] Work Phone: PBNPon 01-06-2023 Natriuretic peptide B (Bld) [Mass/Vol] 272 pg/mL Normal 0-900 [facility] ([place] Comment on above: Result Comment: NT-p roBNP results of less than 300 pg/mL effectively rules out acute congestive heart failure with 99% negative predictive value. Performed By: #### L IPID, GFR, PBNP, ADIFF, CBC, ANEU, BMP, MG #### [address] 01-06-2023 pH BF Spec Type Thoracentesis Normal [facility] ([place] Comment on above: Order Comment: Thora centesis [...] PBNP, ADIFF, CBC, ANEU, BMP, MG #### [place] [address] pH BF 7.4 Normal [facility] ([place] Comment on above: Order Comment: Thora centesis left lung Performed By: #### L IPID, GFR, PBNP, ADIFF, CBC, ANEU, BMP, MG #### [address] 01-06-2023 Protein BF 3.1 G/dL Normal [facility] ([place] Comment on above: Order Comment: Thora centesis fluid Performed By: #### L IPID, GFR, PBNP, ADIFF, CBC, ANEU, BMP, MG #### [place] [address] Protein BF Type Thoracentesis Normal [facility] ([place] Comment on above: Order Comment: Thora centesis [...] PBNP, ADIFF, CBC, ANEU, BMP, MG #### [place] [id number] TROPHSon 01-06-2023 Troponin I High Sensitivity 3.84 ng/L Normal 0.00-34.00 [facility] ([place] Comment on above: Result Comment: If t he High Sensitive Troponin result is below the 99th percentile value (<45 ng/L) at the first blood draw, at least two additional blood samples should be drawn before results are interpreted as negative for AMI. Performed By: #### T JOSE #### [place] [address] Troponin I High Sensitivity <2.50 Normal 0.00-34.00 [facility] ([place] Comment on above: Result Comment: If t he High Sensitive Troponin result is below the 99th percentile value (<45 ng/L) at the first blood draw, at least two additional blood samples should be drawn before results are interpreted as negative for AMI. Performed By: #### L IPID, GFR, PBNP, ADIFF, CBC, ANEU, BMP, MG #### [place] [id number] TSHon 01-06-2023 TSH 0.135 mIU/mL Low 0.550-4.78 0 [facility] ([place]) Comment on above: Result Comment: No te - New Reference Range in effect 20 Performed By: #### L IPID, GFR, PBNP, ADIFF, CBC, ANEU, BMP, MG #### [place] [id number] UAon 01-06-2023 Color (U) DARK YELLOW Normal [facility] ([place]) Comment on above: Performed By: #### L IPID, GFR, PBNP, ADIFF, CBC, ANEU, BMP, MG #### [place] [address] Glucose (U) [Mass/Vol] Negative Normal Negative [facility] ([place]) Comment on above: Performed By: #### L IPID, GFR, PBNP, ADIFF, CBC, ANEU, BMP, MG #### [address] [address] Ketones Ql (U) Negative Normal Neg-Trace [facility] ([place]) Comment on above: Performed By: #### L IPID, GFR, PBNP, ADIFF, CBC, ANEU, BMP, MG #### [place] [address] UA Appear Clear Normal Clear [facility] ([place]) Comment on above: Performed By: #### L IPID, GFR, PBNP, ADIFF, CBC, ANEU, BMP, MG #### [address] [address] UA Blood Negative Normal Neg-Trace [facility] ([place]) Comment on above: Performed By: #### L IPID, GFR, PBNP, ADIFF, CBC, ANEU, BMP, MG #### [place] [address] UA Leuk Est Negative Normal Negative [facility] ([place]) Comment on above: Performed By: #### L IPID, GFR, PBNP, ADIFF, CBC, ANEU, BMP, MG #### [address] [address] UA Nitrite Negative Normal Negative [facility] ([place]) Comment on above: Performed By: #### L IPID, GFR, PBNP, ADIFF, CBC, ANEU, BMP, MG #### [place] [address] UA pH 5.5 Normal 5.0 - 8.0 [facility] ([place]) Comment on above: Performed By: #### L IPID, GFR, PBNP, ADIFF, CBC, ANEU, BMP, MG #### [place] [address] UA Protein 30 mg/dL Normal Negative [facility] ([place]) Comment on above: Performed By: #### L IPID, GFR, PBNP, ADIFF, CBC, ANEU, BMP, MG #### [address] [address] UA Spec Grav >=1.030 Abnormal 1.006-1.02 9 [facility] ([place]) Comment on above: Performed By: #### L IPID, GFR, PBNP, ADIFF, CBC, ANEU, BMP, MG #### [address] [address] UA Specimen Type Clean Catch Normal [facility] ([place]) Comment on above: Performed By: #### L IPID, GFR, PBNP, ADIFF, CBC, ANEU, BMP, MG #### [address] [address] UA Urobilinogen 1.0 E.U./dL Normal 0.2-1.0 [facility] ([place]) Comment on above: Performed By: #### L IPID, GFR, PBNP, ADIFF, CBC, ANEU, BMP, MG #### [address] [address] Urobilinogen (U) [Mass/Vol] Negative Normal Neg-Trace [facility] ([place]) Comment on above: Performed By: #### L IPID, GFR, PBNP, ADIFF, CBC, ANEU, BMP, MG #### [address] [address] XR CHEST 1 VIEWon 01-06-2023 XR CHEST [...] 01/06/2023 12:20:37 PM Ordering Provider: ROSA LIZ [facility] ([place]) XR CHEST 1 VIEW ORIGINAL EXAMINATION: ONE [...] greater on the left. Interpreted by: Bharathi eLiva MD Preliminary Report By: Bharathi Leiva MD Electronically signed By Bharathi Leiva MD Dictated Date: 01/06/2023 12:13:44 PM Prelim Date: 01/06/2023 12:15:56 PM Sign Date: 01/06/2023 12:15:56 PM Ordering Provider: SHANDA ELLIOTT [facility] ([place]) Absolute lymphocyte countOrd ered By: Wayne Germain on 01-05-2023 Lymphocytes Auto (Unsp spec) [#/Vol] 1.04 10*3/uL 0.83-4.51 [facility] Basophil percentageOrdered B y: Wayne Germain on 01-05-2023 Basophils/100 WBC (Bld) 0.4 % 0-1 [facility] Chloride [Moles/Vol] 107 mmol/L 98-107 [facility] Eosinophils/100 WBC (Bld) 2.3 % 0-5 [facility] Glucose [Mass/Vol] 172 mg/dL 74-106 [facility] Comment on above: Fasting Glucose resu lt greater than or equal to 126 mg/dL suggests DIABETES MELLITUS per A.D.A. criteria. Neutrophils (Bld) [#/Vol] 7.9 10*3/uL 2.0-7.7 [facility] Neutrophils/100 WBC (Bld) 76.7 % 47-70 [facility] Potassium [Moles/Vol] 3.5 mmol/L 3.5-5.1 [facility] Sodium [Moles/Vol] 139 mmol/L 136-145 [facility] WBC (Bld) [#/Vol] 10.3 10*3/uL 4.4-11.0 [facility] Blood erythrocytes count (nu mber/volume)Ordered By: Wayne Germain on 01-05-2023 RBC (Bld) [#/Vol] 3.87 10*6/uL 4.2-5.4 [facility] Blood hemoglobin measurement (mass/volume)Ordered By: Wayne Germain on 01-05-2023 Hemoglobin (Bld) [Mass/Vol] 11.0 g/dL 12.0-15.0 [facility] Blood lymphocytes/100 leukoc ytesOrdered By: Wayne Germain on 01-05-2023 Lymphocytes/100 WBC (Bld) 10.1 % 19-41 [facility] Blood monocytes/100 leukocyt esOrdered By: Wayne Germain on 01-05-2023 Monocytes/100 WBC (Bld) 10.0 % 0-10 [facility] Blood platelet mean volumeOr dered By: Wayne Germain on 01-05-2023 Platelet mean volume (Bld) [Entitic vol] 9.6 fL 6.2-12.0 [facility] Determination of erythrocyte mean corpuscular volume (MCV)Ordered By: Wayne Germain on 01-05-2023 MCV (RBC) [Entitic vol] 89.9 fL 81-99 [facility] Hematocrit Auto (Bld) [Volum e fraction]Ordered By: Wayne Germain on 01-05-2023 Hematocrit (Bld) [Volume fraction] 34.8 % 37-47 [facility] Laboratory - Chemistry and C hemistry - challengeOrdered By: Wayne Germain on 01-05-2023 CO2 [Moles/Vol] 27.0 mmol/L 21.0-32.0 [facility] Natriuretic peptide B (Bld) [Mass/Vol] 45.4 pg/mL 0-100 [facility] Urea nitrogen/Creatinine [Mass ratio] 29.9 mg/mg 10-20 [facility] Laboratory - Hematology and Cell countsOrdered By: Wayne Germain on 01-05-2023 Erythrocyte distribution width (RBC) [Entitic vol] 45.4 fL 35.1-43.9 [facility] Erythrocyte distribution width (RBC) [Ratio] 13.9 % 11.6-14.6 [facility] Immature granulocytes/100 WBC (Bld) 0.500 % 0.0-0.9 [facility] Comment on above: IG% - Immature Granu locytes (promyelocytes, myelocytes and metamyelocytes) > 1% indicates that a LEFT SHIFT is Present. MCH (RBC) [Entitic mass] 28.4 pg 27.0-32.0 [facility] Nucleated RBC/100 WBC (Bld) [Ratio] 0 % 0-5 [facility] MCHC Auto (RBC) [Mass/Vol]Or dered By: Wayne Germain on 01-05-2023 MCHC (RBC) [Mass/Vol] 31.6 g/dL 32-36 [facility] No Panel InformationOrdered By: Wayne Germain on 01-05-2023 D-Dimer Quantitative (PE/DVT) 5.70 FEU/ug/m 0.27-0.49 [facility] Comment on above: D-Dimer ELEVATED (>0 .49): Additional studies and clinicalassessments are indicated to conclude diagnosis of:Deep Vein Thrombosis (DVT) or Pulmonary Embolism (PE)CRITICAL VALUE VERIFIED. CALLED TO [id number]/11/23 1504 Lynne Barrientos.RESULTS READ BACK BY SAME . Estimated Creatinine Clearance Calc 83.51 ml/min [facility] Estimated GFR (MDRD) Amer 131 mL/min >60 [facility] Comment on above: GFR Calc Estimated GFR (MDRD) Non-Af Amer 108 mL/min >60 [facility] Comment on above: Non- GFR Calc Troponin I High Sensitivity 6 pg/mL 3.0-54.0 [facility] Comment on above: Please Note: [place] t Units and Gender Specific Reference Ranges. For more information see Policy Stat Procedure [place] High Sensitivity Troponin (TNIH) and attachments. Platelets bldOrdered By: Jasson Germain on 01-05-2023 Platelets (Bld) [#/Vol] 278 10*3/uL 150-450 [facility] Serum or plasma calcium jsaiel urement (mass/volume)Ordered By: Wayne Germain on 01-05-2023 Calcium [Mass/Vol] 9.1 mg/dL 8.5-10.1 [facility] Serum or plasma creatinine m easurement (mass/volume)Ordered By: Wayne Germain on 01-05-2023 Creatinine [Mass/Vol] 0.60 mg/dL 0.55-1.02 [facility] Comment on above: The validity of the calculated GFR & GFRAA in patients over 70 years has not been determined. Clinical correlation is essential. Serum or plasma urea nitroge n measurement (mass/volume)Ordered By: Wayne Germain on 01-05-2023 Urea nitrogen [Mass/Vol] 18 mg/dL 7-18 [facility] Thin prep Papanicolaou smear with manual screeningOrdered By: Wayne Germain on 01-05-2023 Thin prep Papanicolaou smear with manual screening 5 5-15 [facility] Absolute lymphocyte countOrd ered By: Becca Neslon on 01-03-2023 Lymphocytes Auto (Unsp spec) [#/Vol] 1.81 10*3/uL 0.83-4.51 [facility] Basophil percentageOrdered B y: Becca Nelson on 01-03-2023 Basophils/100 WBC (Bld) 0.4 % 0-1 [facility] Chloride [Moles/Vol] 110 mmol/L 98-107 [facility] Eosinophils/100 WBC (Bld) 2.9 % 0-5 [facility] Glucose [Mass/Vol] 130 mg/dL 74-106 [facility] Comment on above: Fasting Glucose resu lt greater than or equal to 126 mg/dL suggests DIABETES MELLITUS per A.D.A. criteria. Neutrophils (Bld) [#/Vol] 6.1 10*3/uL 2.0-7.7 [facility] Neutrophils/100 WBC (Bld) 66.6 % 47-70 [facility] Potassium [Moles/Vol] 3.8 mmol/L 3.5-5.1 [facility] Sodium [Moles/Vol] 141 mmol/L 136-145 [facility] WBC (Bld) [#/Vol] 9.2 10*3/uL 4.4-11.0 [facility] Blood erythrocytes count (nu mber/volume)Ordered By: Becca Nelson on 07-09-2023 RBC (Bld) [#/Vol] 3.89 10*6/uL 4.2-5.4 [facility] Blood hemoglobin measurement (mass/volume)Ordered By: Becca Nelson on 01-03-2023 Hemoglobin (Bld) [Mass/Vol] 11.3 g/dL 12.0-15.0 [facility] Blood lymphocytes/100 leukoc ytesOrdered By: Becca Nelson on 01-03-2023 Lymphocytes/100 WBC (Bld) 19.6 % 19-41 [facility] Blood monocytes/100 leukocyt esOrdered By: Becca Nelson on 01-03-2023 Monocytes/100 WBC (Bld) 10.2 % 0-10 [facility] Blood platelet mean volumeOr dered By: Becca Nelson on 01-03-2023 Platelet mean volume (Bld) [Entitic vol] 9.4 fL 6.2-12.0 [facility] Determination of erythrocyte mean corpuscular volume (MCV)Ordered By: Becca Nelson on 01-03-2023 MCV (RBC) [Entitic vol] 91.5 fL 81-99 [facility] Hematocrit Auto (Bld) [Volum e fraction]Ordered By: Becca Nelson on 01-03-2023 Hematocrit (Bld) [Volume fraction] 35.6 % 37-47 [facility] Laboratory - Chemistry and C hemistry - challengeOrdered By: Becca Nelson on 01-03-2023 CO2 [Moles/Vol] 28.0 mmol/L 21.0-32.0 [facility] Urea nitrogen/Creatinine [Mass ratio] 34.5 mg/mg 10-20 [facility] Laboratory - Hematology and Cell countsOrdered By: Becca Nelson on 01-03-2023 Erythrocyte distribution width (RBC) [Entitic vol] 46.7 fL 35.1-43.9 [facility] Erythrocyte distribution width (RBC) [Ratio] 13.9 % 11.6-14.6 [facility] Immature granulocytes/100 WBC (Bld) 0.300 % 0.0-0.9 [facility] Comment on above: IG% - Immature Granu locytes (promyelocytes, myelocytes and metamyelocytes) > 1% indicates that a LEFT SHIFT is Present. MCH (RBC) [Entitic mass] 29.0 pg 27.0-32.0 [facility] Nucleated RBC/100 WBC (Bld) [Ratio] 0 % 0-5 [facility] MCHC Auto (RBC) [Mass/Vol]Or dered By: Becca Nelson on 01-03-2023 MCHC (RBC) [Mass/Vol] 31.7 g/dL 32-36 [facility] No Panel InformationOrdered By: Becca Nelson on 01-03-2023 Estimated Creatinine Clearance Calc 91.10 ml/min [facility] Estimated GFR (MDRD) Amer 145 mL/min >60 [facility] Comment on above: GFR Calc Estimated GFR (MDRD) Non-Af Amer 120 mL/min >60 [facility] Comment on above: Non- GFR Calc Troponin I High Sensitivity 6 pg/mL 3.0-54.0 [facility] Comment on above: Please Note: [place] Units and Gender Specific Reference Ranges. For more information see Policy Stat Procedure [place] High Sensitivity Troponin (TNIH) and attachments. Platelets bldOrdered By: Jessi Nelson on 01-03-2023 Platelets (Bld) [#/Vol] 242 10*3/uL 150-450 [facility] Serum or plasma calcium jasiel urement (mass/volume)Ordered By: Becca Nelson on 01-03-2023 Calcium [Mass/Vol] 9.2 mg/dL 8.5-10.1 [facility] Serum or plasma creatinine m easurement (mass/volume)Ordered By: Becca Nelson on 01-03-2023 Creatinine [Mass/Vol] 0.55 mg/dL 0.55-1.02 [facility] Comment on above: The validity of the calculated GFR & GFRAA in patients over 70 years has not been determined. Clinical correlation is essential. Serum or plasma urea nitroge n measurement (mass/volume)Ordered By: Becca Nelson on 01-03-2023 Urea nitrogen [Mass/Vol] 19 mg/dL 7-18 [facility] Thin prep Papanicolaou smear with manual screeningOrdered By: Becca Nelson on 01-03-2023 Thin prep Papanicolaou smear with manual screening 3 5-15 [facility] Absolute lymphocyte countOrd ered By: Diana Ramos on 01-01-2023 Lymphocytes Auto (Unsp spec) [#/Vol] 1.75 10*3/uL 0.83-4.51 [facility] Basophil percentageOrdered B y: Diana Ramos on 01-01-2023 Basophils/100 WBC (Bld) 0.4 % 0-1 [facility] Bilirubin [Mass/Vol] 0.30 mg/dL 0.20-1.00 [facility] Comment on above: For patients on eltr ombopag therapy, use of Dimension [place] TBIL is not recommended. Chloride [Moles/Vol] 109 mmol/L 98-107 [facility] Eosinophils/100 WBC (Bld) 2.3 % 0-5 [facility] Glucose [Mass/Vol] 131 mg/dL 74-106 [facility] Comment on above: Fasting Glucose resu lt greater than or equal to 126 mg/dL suggests DIABETES MELLITUS per A.D.A. criteria. Neutrophils (Bld) [#/Vol] 6.2 10*3/uL 2.0-7.7 [facility] Neutrophils/100 WBC (Bld) 69.4 % 47-70 [facility] Potassium [Moles/Vol] 3.8 mmol/L 3.5-5.1 [facility] Protein [Mass/Vol] 7.4 g/dL 6.4-8.2 [facility] Sodium [Moles/Vol] 141 mmol/L 136-145 [facility] WBC (Bld) [#/Vol] 9.0 10*3/uL 4.4-11.0 [facility] Blood erythrocytes count (nu mber/volume)Ordered By: Diana Ramos on 01-01-2023 RBC (Bld) [#/Vol] 3.95 10*6/uL 4.2-5.4 [facility] Blood hemoglobin measurement (mass/volume)Ordered By: Diana Ramos on 01-01-2023 Hemoglobin (Bld) [Mass/Vol] 11.3 g/dL 12.0-15.0 [facility] Blood lymphocytes/100 leukoc ytesOrdered By: Diana Ramos on 01-01-2023 Lymphocytes/100 WBC (Bld) 19.5 % 19-41 [facility] Blood monocytes/100 leukocyt esOrdered By: Diana Ramos on 01-01-2023 Monocytes/100 WBC (Bld) 8.0 % 0-10 [facility] Blood platelet mean volumeOr dered By: Diana Ramos on 01-01-2023 Platelet mean volume (Bld) [Entitic vol] 9.8 fL 6.2-12.0 [facility] Determination of erythrocyte mean corpuscular volume (MCV)Ordered By: [facility] on 01-01-2023 MCV (RBC) [Entitic vol] 92.2 fL 81-99 [facility] Hematocrit Auto (Bld) [Volum e fraction]Ordered By: [facility] Rachel on 01-01-2023 Hematocrit (Bld) [Volume fraction] 36.4 % 37-47 [facility] Laboratory - Chemistry and C hemistry - challengeOrdered By: Diana Ramos on 01-01-2023 ALP [Catalytic activity/Vol] 85 U/L 45-117 [facility] ALT [Catalytic activity/Vol] 24 U/L 13-56 [facility] CO2 [Moles/Vol] 26.0 mmol/L 21.0-32.0 [facility] Globulin (S) [Mass/Vol] 4.7 g/dL 2.2-4.2 [facility] Urea nitrogen/Creatinine [Mass ratio] 37.5 mg/mg 10-20 [facility] Laboratory - Hematology and Cell countsOrdered By: Dianaprasanna Ramos on 01-01-2023 Erythrocyte distribution width (RBC) [Entitic vol] 47.6 fL 35.1-43.9 [facility] Erythrocyte distribution width (RBC) [Ratio] 13.9 % 11.6-14.6 [facility] Immature granulocytes/100 WBC (Bld) 0.400 % 0.0-0.9 [facility] Comment on above: IG% - Immature Granu locytes (promyelocytes, myelocytes and metamyelocytes) > 1% indicates that a LEFT SHIFT is Present. MCH (RBC) [Entitic mass] 28.6 pg 27.0-32.0 [facility] Nucleated RBC/100 WBC (Bld) [Ratio] 0 % 0-5 [facility] MCHC Auto (RBC) [Mass/Vol]Or dered By: Diana Ramos on 01-01-2023 MCHC (RBC) [Mass/Vol] 31.0 g/dL 32-36 [facility] No Panel InformationOrdered By: Diana Ramos on 01-01-2023 Estimated GFR (MDRD) Amer 135 mL/min >60 [facility] Comment on above: GFR Calc Estimated GFR (MDRD) Non-Af Amer 111 mL/min >60 [facility] Comment on above: Non- GFR Calc Platelets bldOrdered By: Katarina Ramos on 01-01-2023 Platelets (Bld) [#/Vol] 245 10*3/uL 150-450 [facility] Serum or plasma albumin jasiel urement (mass/volume)Ordered By: Diana Ramos on 01-01-2023 Albumin [Mass/Vol] 2.7 g/dL 3.2-5.0 [facility] Serum or plasma albumin/glob ulin mass ratioOrdered By: Diana Ramos on 01-01-2023 Albumin/Globulin [Mass ratio] 0.6 {ratio} 0.9-2.4 [facility] Serum or plasma calcium jasiel urement (mass/volume)Ordered By: Diana Ramos on 01-01-2023 Calcium [Mass/Vol] 9.0 mg/dL 8.5-10.1 [facility] Serum or plasma creatinine m easurement (mass/volume)Ordered By: Diana Ramos on 01-01-2023 Creatinine [Mass/Vol] 0.59 mg/dL 0.55-1.02 [facility] Comment on above: The validity of the calculated GFR & GFRAA in patients over 70 years has not been determined. Clinical correlation is essential. Serum or plasma urea nitroge n measurement (mass/volume)Ordered By: Diana Ramos on 01-01-2023 Urea nitrogen [Mass/Vol] 22 mg/dL 7-18 [facility] Thin prep Papanicolaou smear with manual screeningOrdered By: Diana Ramos on 01-01-2023 Thin prep Papanicolaou smear with manual screening 16 U/L 15-37 [facility] Thin prep Papanicolaou smear with manual screening 6 5-15 [facility] Absolute lymphocyte countOrd ered By: Dr. Ramos on 10-27-2022 Lymphocytes Auto (Unsp spec) [#/Vol] 1.60 10*3/uL 0.83-4.51 [facility] Basophil percentageOrdered B y: Dr. Ramos on 10-27-2022 Basophils/100 WBC (Bld) 0.6 % 0-1 [facility] Bilirubin [Mass/Vol] 0.30 mg/dL 0.20-1.00 [facility] Comment on above: For patients on eltr ombopag therapy, use of Dimension [place] TBIL is not recommended. Chloride [Moles/Vol] 108 mmol/L 98-107 [facility] Eosinophils/100 WBC (Bld) 5.5 % 0-5 [facility] Glucose [Mass/Vol] 119 mg/dL 74-106 [facility] Comment on above: Fasting Glucose resu lt from 100 to 125 mg/dL suggests IMPAIRED HOMEOSTASIS per A.D.A. criteria. Neutrophils (Bld) [#/Vol] 4.2 10*3/uL 2.0-7.7 [facility] Neutrophils/100 WBC (Bld) 61.7 % 47-70 [facility] Potassium [Moles/Vol] 4.1 mmol/L 3.5-5.1 [facility] Protein [Mass/Vol] 7.4 g/dL 6.4-8.2 [facility] Sodium [Moles/Vol] 139 mmol/L 136-145 [facility] WBC (Bld) [#/Vol] 6.9 10*3/uL 4.4-11.0 [facility] Blood erythrocytes count (nu mber/volume)Ordered By: Dr. Ramos on 10-27-2022 RBC (Bld) [#/Vol] 4.61 10*6/uL 4.2-5.4 [facility] Blood hemoglobin measurement (mass/volume)Ordered By: Dr. Ramos on 10-27-2022 Hemoglobin (Bld) [Mass/Vol] 13.5 g/dL 12.0-15.0 [facility] Blood lymphocytes/100 leukoc ytesOrdered By: Dr. Ramos on 10-27-2022 Lymphocytes/100 WBC (Bld) 23.4 % 19-41 [facility] Blood monocytes/100 leukocyt esOrdered By: Dr. Ramos on 10-27-2022 Monocytes/100 WBC (Bld) 8.5 % 0-10 [facility] Blood platelet mean volumeOr dered By: Dr. Ramos on 10-27-2022 Platelet mean volume (Bld) [Entitic vol] 11.3 fL 6.2-12.0 [facility] Determination of erythrocyte mean corpuscular volume (MCV)Ordered By: Dr. Ramos on 10-27-2022 MCV (RBC) [Entitic vol] 90.2 fL 81-99 [facility] Hematocrit Auto (Bld) [Volum e fraction]Ordered By: Dr. Ramos on 10-27-2022 Hematocrit (Bld) [Volume fraction] 41.6 % 37-47 [facility] Laboratory - Chemistry and C hemistry - challengeOrdered By: Dr. Ramos on 10-27-2022 ALP [Catalytic activity/Vol] 90 U/L 45-117 [facility] ALT [Catalytic activity/Vol] 24 U/L 13-56 [facility] CO2 [Moles/Vol] 27.0 mmol/L 21.0-32.0 [facility] Globulin (S) [Mass/Vol] 3.9 g/dL 2.2-4.2 [facility] Urea nitrogen/Creatinine [Mass ratio] 25.0 mg/mg 10-20 [facility] Laboratory - Hematology and Cell countsOrdered By: Dr. Ramos on 10-27-2022 Erythrocyte distribution width (RBC) [Entitic vol] 46.2 fL 35.1-43.9 [facility] Erythrocyte distribution width (RBC) [Ratio] 13.9 % 11.6-14.6 [facility] Immature granulocytes/100 WBC (Bld) 0.300 % 0.0-0.9 [facility] Comment on above: IG% - Immature Granu locytes (promyelocytes, myelocytes and metamyelocytes) > 1% indicates that a LEFT SHIFT is Present. MCH (RBC) [Entitic mass] 29.3 pg 27.0-32.0 [facility] Nucleated RBC/100 WBC (Bld) [Ratio] 0 % 0-5 [facility] MCHC Auto (RBC) [Mass/Vol]Or dered By: Dr. Ramos on 10-27-2022 MCHC (RBC) [Mass/Vol] 32.5 g/dL 32-36 [facility] No Panel InformationOrdered By: Dr. Ramos on 10-27-2022 Estimated GFR (MDRD) Amer 95 mL/min >60 [facility] Comment on above: GFR Calc Estimated GFR (MDRD) Non-Af Amer 78 mL/min >60 [facility] Comment on above: Non- GFR Calc Platelets bldOrdered By: Dr. Ramos on 10-27-2022 Platelets (Bld) [#/Vol] 171 10*3/uL 150-450 [facility] Serum or plasma albumin jasiel urement (mass/volume)Ordered By: Dr. Ramos on 10-27-2022 Albumin [Mass/Vol] 3.5 g/dL 3.2-5.0 [facility] Serum or plasma albumin/glob ulin mass ratioOrdered By: Dr. Ramos on 10-27-2022 Albumin/Globulin [Mass ratio] 0.9 {ratio} 0.9-2.4 [facility] Serum or plasma calcium jasiel urement (mass/volume)Ordered By: Dr. Ramos on 10-27-2022 Calcium [Mass/Vol] 9.2 mg/dL 8.5-10.1 [facility] Serum or plasma creatinine m easurement (mass/volume)Ordered By: Dr. Ramos on 10-27-2022 Creatinine [Mass/Vol] 0.80 mg/dL 0.55-1.02 [facility] Comment on above: The validity of the calculated GFR & GFRAA in patients over 70 years has not been determined. Clinical correlation is essential. Serum or plasma urea nitroge n measurement (mass/volume)Ordered By: Dr. Ramos on 10-27-2022 Urea nitrogen [Mass/Vol] 20 mg/dL 7-18 [facility] Thin prep Papanicolaou smear with manual screeningOrdered By: Dr. Ramos on 10-27-2022 Thin prep Papanicolaou smear with manual screening 18 U/L 15-37 [facility] Thin prep Papanicolaou smear with manual screening 4 5-15 [facility] Whole blood hemoglobin A1c/t otal hemoglobin ratio (mass fraction)Ordered By: Dr. Swift on 09-16-2022 HbA1c (Bld) [Mass fraction] 7.4 % 3.8-5.6 [facility] Comment on above: Normal < 5.7 % Predi abetic 5.7 - 6.4 % Diabetic >or= 6.5 % Please note range changes. Basophil percentageOrdered B y: Dr. Arizmendi on 08-10-2022 Chloride [Moles/Vol] 109 mmol/L 98-107 [facility] Cholesterol [Mass/Vol] 161 mg/dL <200 [facility] Comment on above: <200 mg/dL Desirable 200-240 mg/dL Borderline >240 mg/dL High Risk Glucose [Mass/Vol] 144 mg/dL 74-106 [facility] Comment on above: Fasting Glucose resu lt greater than or equal to 126 mg/dL suggests DIABETES MELLITUS per A.D.A. criteria. Potassium [Moles/Vol] 4.4 mmol/L 3.5-5.1 [facility] Sodium [Moles/Vol] 140 mmol/L 136-145 [facility] Triglyceride [Mass/Vol] 127 mg/dL <199 [facility] Comment on above: The drugs N-Acetylcy steine and Metamizole may falsely depress this assay.Serum Triglycerides Reference Interval Normal <150 mg/dL Borderline high 150 - 199 mg/dL High 200 - 499 mg/dL Very High > or = 500 mg/dL Laboratory - Chemistry and C hemistry - challengeOrdered By: Dr. Arizmendi on 08-10-2022 CO2 [Moles/Vol] 26.0 mmol/L 21.0-32.0 [facility] Free T4 [Mass/Vol] 1.21 ng/dL 0.76-1.46 [facility] Urea nitrogen/Creatinine [Mass ratio] 32.9 mg/mg 10-20 [facility] No Panel InformationOrdered By: Dr. Arizmendi on 08-10-2022 Estimated GFR (MDRD) Amer 122 mL/min >60 [facility] Comment on above: GFR Calc Estimated GFR (MDRD) Non-Af Amer 101 mL/min >60 [facility] Comment on above: Non- GFR Calc Free Triiodothyronine (T3) pg/dL 2.2 pg/mL 2.18-3.98 [facility] Thyroid Stimulating Hormone (TSH) 1.84 uIU/mL 0.358-3.74 [facility] Serum or plasma calcium jasiel urement (mass/volume)Ordered By: Dr. Arizmendi on 08-10-2022 Calcium [Mass/Vol] 9.1 mg/dL 8.5-10.1 [facility] Serum or plasma cholesterol in HDL measurement (mass/volume)Ordered By: Dr. Arizmendi on 08-10-2022 Cholesterol in HDL [Mass/Vol] 57 mg/dL >40 [facility] Comment on above: The drugs N-Acetylcy steine and Metamizole may falsely depress this assay. Reference Range HDL <40 mg/dL Low HDL Cholesterol HDL >or= 60 mg/dL High HDL Cholesterol Serum or plasma cholesterol in VLDL measurement (mass/volume)Ordered By: Dr. Arizmendi on 08-10-2022 Cholesterol in VLDL [Mass/Vol] 25 mg/dL 5-40 [facility] Serum or plasma creatinine m easurement (mass/volume)Ordered By: Dr. Arizmendi on 08-10-2022 Creatinine [Mass/Vol] 0.64 mg/dL 0.55-1.02 [facility] Comment on above: The validity of the calculated GFR & GFRAA in patients over 70 years has not been determined. Clinical correlation is essential. Serum or plasma low density lipoprotein (LDL) cholesterol measurement (mass/volume)Ordered By: Dr. Arizmendi on 08-10-2022 Cholesterol in LDL [Mass/Vol] 79 mg/dL 0-130 [facility] Serum or plasma urea nitroge n measurement (mass/volume)Ordered By: Dr. Arizmendi on 08-10-2022 Urea nitrogen [Mass/Vol] 21 mg/dL 7-18 [facility] Thin prep Papanicolaou smear with manual screeningOrdered By: Dr. Arizmendi on 08-10-2022 Thin prep Papanicolaou smear with manual screening 5 5-15 [facility] Absolute lymphocyte countOrd ered By: Dr. Ramos on 08-03-2022 Lymphocytes Auto (Unsp spec) [#/Vol] 1.48 10*3/uL 0.83-4.51 [facility] Basophil percentageOrdered B y: Dr. Ramos on 08-03-2022 Basophils/100 WBC (Bld) 0.8 % 0-1 [facility] Bilirubin [Mass/Vol] 0.30 mg/dL 0.20-1.00 [facility] Comment on above: For patients on eltr ombopag therapy, use of [place] TBIL is not recommended. Chloride [Moles/Vol] 105 mmol/L 98-107 [facility] Eosinophils/100 WBC (Bld) 0.8 % 0-5 [facility] Glucose [Mass/Vol] 142 mg/dL 74-106 [facility] Comment on above: Fasting Glucose resu lt greater than or equal to 126 mg/dL suggests DIABETES MELLITUS per A.D.A. criteria. Neutrophils (Bld) [#/Vol] 5.2 10*3/uL 2.0-7.7 [facility] Neutrophils/100 WBC (Bld) 71.5 % 47-70 [facility] Potassium [Moles/Vol] 4.5 mmol/L 3.5-5.1 [facility] Protein [Mass/Vol] 7.9 g/dL 6.4-8.2 [facility] Sodium [Moles/Vol] 138 mmol/L 136-145 [facility] WBC (Bld) [#/Vol] 7.3 10*3/uL 4.4-11.0 [facility] Blood erythrocytes count (nu mber/volume)Ordered By: Dr. Ramos on 08-03-2022 RBC (Bld) [#/Vol] 4.76 10*6/uL 4.2-5.4 [facility] Blood hemoglobin measurement (mass/volume)Ordered By: Dr. Ramos on 08-03-2022 Hemoglobin (Bld) [Mass/Vol] 14.0 g/dL 12.0-15.0 [facility] Blood lymphocytes/100 leukoc ytesOrdered By: Dr. Ramos on 08-03-2022 Lymphocytes/100 WBC (Bld) 20.3 % 19-41 [facility] Blood monocytes/100 leukocyt esOrdered By: Dr. Ramos on 08-03-2022 Monocytes/100 WBC (Bld) 6.5 % 0-10 [facility] Blood platelet mean volumeOr dered By: Dr. Ramos on 08-03-2022 Platelet mean volume (Bld) [Entitic vol] 10.5 fL 6.2-12.0 [facility] Determination of erythrocyte mean corpuscular volume (MCV)Ordered By: Dr. Ramos on 08-03-2022 MCV (RBC) [Entitic vol] 90.5 fL 81-99 [facility] Hematocrit Auto (Bld) [Volum e fraction]Ordered By: Dr. Ramos on 08-03-2022 Hematocrit (Bld) [Volume fraction] 43.1 % 37-47 [facility] Laboratory - Chemistry and C hemistry - challengeOrdered By: Dr. Rmaos on 08-03-2022 ALP [Catalytic activity/Vol] 95 U/L 45-117 [facility] ALT [Catalytic activity/Vol] 15 U/L 13-56 [facility] CO2 [Moles/Vol] 27.0 mmol/L 21.0-32.0 [facility] Globulin (S) [Mass/Vol] 4.5 g/dL 2.2-4.2 [facility] Urea nitrogen/Creatinine [Mass ratio] 31.5 mg/mg 10-20 [facility] Laboratory - Hematology and Cell countsOrdered By: Dr. Ramos on 08-03-2022 Erythrocyte distribution width (RBC) [Entitic vol] 46.4 fL 35.1-43.9 [facility] Erythrocyte distribution width (RBC) [Ratio] 13.9 % 11.6-14.6 [facility] Immature granulocytes/100 WBC (Bld) 0.100 % 0.0-0.9 [facility] Comment on above: IG% - Immature Granu locytes (promyelocytes, myelocytes and metamyelocytes) > 1% indicates that a LEFT SHIFT is Present. MCH (RBC) [Entitic mass] 29.4 pg 27.0-32.0 [facility] Nucleated RBC/100 [facility] (Bld) [[facility]] 0 % [facility] [Mass/Vol]Or dered By: Dr. Ramos on 08-03-2022 MCHC (RBC) [Mass/Vol] 32.5 g/dL 32-36 [facility] No Panel InformationOrdered By: Dr. Ramos on 08-03-2022 Estimated GFR (MDRD) Amer 91 mL/min >60 [facility] Comment on above: GFR Calc Estimated GFR (MDRD) Non-Af Amer 75 mL/min >60 [facility] Comment on above: Non- GFR Calc Platelets bldOrdered By: Dr. Ramos on 08-03-2022 Platelets (Bld) [#/Vol] 219 10*3/uL 150-450 [facility] Serum or plasma albumin jasiel urement (mass/volume)Ordered By: Dr. Ramos on 08-03-2022 Albumin [Mass/Vol] 3.4 g/dL 3.2-5.0 [facility] Serum or plasma albumin/glob ulin mass ratioOrdered By: Dr. Ramos on 08-03-2022 Albumin/Globulin [Mass ratio] 0.8 {ratio} 0.9-2.4 [facility] Serum or plasma calcium jasiel urement (mass/volume)Ordered By: Dr. Ramos on 08-03-2022 Calcium [Mass/Vol] 9.9 mg/dL 8.5-10.1 [facility] Serum or plasma creatinine m easurement (mass/volume)Ordered By: Dr. Ramos on 08-03-2022 Creatinine [Mass/Vol] 0.82 mg/dL 0.55-1.02 [facility] Comment on above: The validity of the calculated GFR & GFRAA in patients over 70 years has not been determined. Clinical correlation is essential. Serum or plasma urea nitroge n measurement (mass/volume)Ordered By: Dr. Ramos on 08-03-2022 Urea nitrogen [Mass/Vol] 26 mg/dL 7-18 [facility] Thin prep Papanicolaou smear with manual screeningOrdered By: Dr. Ramos on 08-03-2022 Thin prep Papanicolaou smear with manual screening 11 U/L 15-37 [facility] Thin prep Papanicolaou smear with manual screening 6 5-15 [facility] Basophil percentageOrdered B y: Dr. Olsen on 06-17-2022 Bilirubin [Mass/Vol] 0.30 mg/dL 0.20-1.00 [facility] Comment on above: For patients on eltr ombopag therapy, use of [place] TBIL is not recommended. Cholesterol [Mass/Vol] 158 mg/dL <200 [facility] Comment on above: <200 mg/dL Desirable 200-240 mg/dL Borderline >240 mg/dL High Risk Protein [Mass/Vol] 7.8 g/dL 6.4-8.2 [facility] Triglyceride [Mass/Vol] 270 mg/dL <199 [facility] Comment on above: The drugs N-Acetylcy steine and Metamizole may falsely depress this assay.Serum Triglycerides Reference Interval Normal <150 mg/dL Borderline high 150 - 199 mg/dL High 200 - 499 mg/dL Very High > or = 500 mg/dL Direct bilirubinOrdered By: Dr. Olsen on 06-17-2022 Bilirubin.direct [Mass/Vol] 0.10 mg/dL 0.00-0.30 [facility] Laboratory - Chemistry and C hemistry - challengeOrdered By: Dr. Olsen on 06-17-2022 ALP [Catalytic activity/Vol] 97 U/L 45-117 [facility] ALT [Catalytic activity/Vol] 17 U/L 13-56 [facility] Globulin (S) [Mass/Vol] 4.5 g/dL 2.2-4.2 [facility] No Panel InformationOrdered By: Dr. Jefferson on 06-17-2022 Thyroid Stimulating Hormone (TSH) 5.80 uIU/mL 0.358-3.74 [facility] Serum or plasma albumin jasiel urement (mass/volume)Ordered By: Dr. Olsen on 06-17-2022 Albumin [Mass/Vol] 3.3 g/dL 3.2-5.0 [facility] Serum or plasma cholesterol in HDL measurement (mass/volume)Ordered By: Dr. Olsen on 06-17-2022 Cholesterol in HDL [Mass/Vol] 53 mg/dL >40 [facility] Comment on above: The drugs N-Acetylcy steine and Metamizole may falsely depress this assay. Reference Range HDL <40 mg/dL Low HDL Cholesterol HDL >or= 60 mg/dL High HDL Cholesterol Serum or plasma cholesterol in VLDL measurement (mass/volume)Ordered By: Dr. Olsen on 06-17-2022 Cholesterol in VLDL [Mass/Vol] 54 mg/dL 5-40 [facility] Serum or plasma low density lipoprotein (LDL) cholesterol measurement (mass/volume)Ordered By: Dr. Olsen on 06-17-2022 Cholesterol in LDL [Mass/Vol] 51 mg/dL 0-130 [facility] Thin prep Papanicolaou smear with manual screeningOrdered By: Dr. Olsen on 06-17-2022 Thin prep Papanicolaou smear with manual screening 11 U/L 15-37 [facility] Absolute lymphocyte countOrd ered By: Dr. Ramos on 05-11-2022 Lymphocytes Auto (Unsp spec) [#/Vol] 2.04 10*3/uL 0.83-4.51 [facility] Basophil percentageOrdered B y: Dr. Ramos on 05-11-2022 Basophils/100 WBC (Bld) 0.9 % 0-1 [facility] Bilirubin [Mass/Vol] 0.30 mg/dL 0.20-1.00 [facility] Comment on above: For patients on eltr ombopag therapy, use of [place] TBIL is not recommended. Chloride [Moles/Vol] 107 mmol/L 98-107 [facility] Eosinophils/100 WBC (Bld) 5.0 % 0-5 [facility] Glucose [Mass/Vol] 133 mg/dL 74-106 [facility] Comment on above: Fasting Glucose resu lt greater than or equal to 126 mg/dL suggests DIABETES MELLITUS per A.D.A. criteria. Neutrophils (Bld) [#/Vol] 3.8 10*3/uL 2.0-7.7 [facility] Neutrophils/100 WBC (Bld) 56.2 % 47-70 [facility] Potassium [Moles/Vol] 3.6 mmol/L 3.5-5.1 [facility] Protein [Mass/Vol] 7.4 g/dL 6.4-8.2 [facility] Sodium [Moles/Vol] 139 mmol/L 136-145 [facility] WBC (Bld) [#/Vol] 6.8 10*3/uL 4.4-11.0 [facility] Blood erythrocytes count (nu mber/volume)Ordered By: Dr. Ramos on 05-11-2022 RBC (Bld) [#/Vol] 4.58 10*6/uL 4.2-5.4 [facility] Blood hemoglobin measurement (mass/volume)Ordered By: Dr. Ramos on 05-11-2022 Hemoglobin (Bld) [Mass/Vol] 13.5 g/dL 12.0-15.0 [facility] Blood lymphocytes/100 leukoc ytesOrdered By: Dr. Ramos on 05-11-2022 Lymphocytes/100 WBC (Bld) 30.0 % 19-41 [facility] Blood monocytes/100 leukocyt esOrdered By: Dr. Ramos on 05-11-2022 Monocytes/100 WBC (Bld) 7.6 % 0-10 [facility] Blood platelet mean volumeOr dered By: Dr. Ramos on 05-11-2022 Platelet mean volume (Bld) [Entitic vol] 10.4 fL 6.2-12.0 [facility] Determination of erythrocyte mean corpuscular volume (MCV)Ordered By: Dr. Ramos on 05-11-2022 MCV (RBC) [Entitic vol] 92.6 fL 81-99 [facility] Hematocrit Auto (Bld) [Volum e fraction]Ordered By: Dr. Ramos on 05-11-2022 Hematocrit (Bld) [Volume fraction] 42.4 % 37-47 [facility] Laboratory - Chemistry and C hemistry - challengeOrdered By: Dr. Ramos on 05-11-2022 ALP [Catalytic activity/Vol] 90 U/L 45-117 [facility] ALT [Catalytic activity/Vol] 15 U/L 13-56 [facility] CO2 [Moles/Vol] 26.0 mmol/L 21.0-32.0 [facility] Globulin (S) [Mass/Vol] 4.1 g/dL 2.2-4.2 [facility] Urea nitrogen/Creatinine [Mass ratio] 29.1 mg/mg 10-20 [facility] Laboratory - Hematology and Cell countsOrdered By: Dr. Ramos on 05-11-2022 Erythrocyte distribution width (RBC) [Entitic vol] 48.6 fL 35.1-43.9 [facility] Erythrocyte distribution width (RBC) [Ratio] 14.2 % 11.6-14.6 [facility] Immature granulocytes/100 WBC (Bld) 0.300 % 0.0-0.9 [facility] Comment on above: IG% - Immature Granu locytes (promyelocytes, myelocytes and metamyelocytes) > 1% indicates that a LEFT SHIFT is Present. MCH (RBC) [Entitic mass] 29.5 pg 27.0-32.0 [facility] Nucleated RBC/100 WBC (Bld) [Ratio] 0 % 0-5 [facility] MCHC Auto (RBC) [Mass/Vol]Or dered By: Dr. Ramos on 05-11-2022 MCHC (RBC) [Mass/Vol] 31.8 g/dL 32-36 [facility] No Panel InformationOrdered By: Dr. Ramos on 05-11-2022 Estimated GFR (MDRD) Amer 120 mL/min >60 [facility] Comment on above: GFR Calc Estimated GFR (MDRD) Non-Af Amer 99 mL/min >60 [facility] Comment on above: Non- GFR Calc Platelets bldOrdered By: Dr. Ramos on 05-11-2022 Platelets (Bld) [#/Vol] 215 10*3/uL 150-450 [facility] Serum or plasma albumin jasiel urement (mass/volume)Ordered By: Dr. Ramos on 05-11-2022 Albumin [Mass/Vol] 3.3 g/dL 3.2-5.0 [facility] Serum or plasma albumin/glob ulin mass ratioOrdered By: Dr. Ramos on 05-11-2022 Albumin/Globulin [Mass ratio] 0.8 {ratio} 0.9-2.4 [facility] Serum or plasma calcium jasiel urement (mass/volume)Ordered By: Dr. Ramos on 05-11-2022 Calcium [Mass/Vol] 9.1 mg/dL 8.5-10.1 [facility] Serum or plasma creatinine m easurement (mass/volume)Ordered By: Dr. Ramos on 05-11-2022 Creatinine [Mass/Vol] 0.65 mg/dL 0.55-1.02 [facility] Comment on above: The validity of the calculated GFR & GFRAA in patients over 70 years has not been determined. Clinical correlation is essential. Serum or plasma urea nitroge n measurement (mass/volume)Ordered By: Dr. Ramos on 05-11-2022 Urea nitrogen [Mass/Vol] 19 mg/dL 7-18 [facility] Thin prep Papanicolaou smear with manual screeningOrdered By: Dr. Ramos on 05-11-2022 Thin prep Papanicolaou smear with manual screening 13 U/L 15 [facility] Thin prep Papanicolaou smear with manual screening 6 5-15 [facility] Serum or plasma calcium jasiel urement (mass/volume)Ordered By: Roxana Hickey on 04-28-2022 Calcium [Mass/Vol] 9.7 mg/dL 8.5-10.1 [facility] Serum or plasma calcium jasiel urement (mass/volume)on 04-15-2022 Calcium [Mass/Vol] 9.2 mg/dL 8.5-10.1 [facility] Work Phone: Basophil percentageon 2021 Basophil percentage 2.4 mg/dL 2.5-4.9 [facility] Work Phone: Chloride [Moles/Vol] 111 mmol/L 98-107 [facility] Work Phone: Glucose [Mass/Vol] 127 mg/dL 74-106 [facility] Work Phone: Comment on above: Fasting Glucose resu lt greater than or equal to 126 mg/dL suggests DIABETES MELLITUS per A.D.A. criteria. Potassium [Moles/Vol] 4.3 mmol/L 3.5-5.1 [facility] Work Phone: Sodium [Moles/Vol] 141 mmol/L 136-145 [facility] Work Phone: WBC (Bld) [#/Vol] 7.5 10*3/uL 4.4-11.0 [facility] Work Phone: Blood erythrocytes count (nu mber/volume)on 04-11-2022 RBC (Bld) [#/Vol] 4.59 10*6/uL 4.2-5.4 [facility] Work Phone: Blood hemoglobin measurement (mass/volume)on 04-11-2022 Hemoglobin (Bld) [Mass/Vol] 13.5 g/dL 12.0-15.0 [facility] Work Phone: Blood platelet mean volumeon 04-11-2022 Platelet mean volume (Bld) [Entitic vol] 10.0 fL 6.2-12.0 [facility] Work Phone: Determination of erythrocyte mean corpuscular volume (MCV)on 04-11-2022 MCV (RBC) [Entitic vol] 91.7 fL 81-99 [facility] Work Phone: Hematocrit Auto (Bld) [Volum e fraction]on 04-11-2022 Hematocrit (Bld) [Volume fraction] 42.1 % 37-47 [facility] Work Phone: Laboratory - Chemistry and C hemistry - challengeon 04-11-2022 CO2 [Moles/Vol] 27.0 mmol/L 21.0-32.0 [facility] Work Phone: Magnesium [Mass/Vol] 2.2 mg/dL 1.6-2.6 [facility] Work Phone: [phone] Urea nitrogen/Creatinine [Mass ratio] 29.2 mg/mg 10- [facility] Work Phone: Laboratory - Hematology and Cell countson 04-11-2022 Erythrocyte distribution width (RBC) [Entitic vol] 47.1 fL 35.1-43.9 [facility] Work Phone: Erythrocyte distribution width (RBC) [Ratio] 14.1 % 11.6-14.6 [facility] Work Phone: MCH (RBC) [Entitic mass] 29.4 pg 27.0-32.0 [facility] Work Phone: MCHC Auto (RBC) [Mass/Vol]on 04-11-2022 MCHC (RBC) [Mass/Vol] 32.1 g/dL 32-36 [facility] Work Phone: No Panel Informationon 04-11 Estimated GFR (MDRD) Amer 120 mL/min >60 [facility] Work Phone: Comment on above: GFR Calc Estimated GFR (MDRD) Non-Af Amer 99 mL/min >60 [facility] Work Phone: Comment on above: Non- GFR Calc Thyroid Stimulating Hormone (TSH) 1.31 uIU/mL 0.358-3.74 [facility] Work Phone: Platelets bldon 04-11-2022 Platelets (Bld) [#/Vol] 206 10*3/uL 150-450 [facility] Work Phone: Serum or plasma calcium jasiel urement (mass/volume)on 04-11-2022 Calcium [Mass/Vol] 9.3 mg/dL 8.5-10.1 [facility] Work Phone: Serum or plasma creatinine m easurement (mass/volume)on 04-11-2022 Creatinine [Mass/Vol] 0.65 mg/dL 0.55-1.02 [facility] Work Phone: Comment on above: The validity of the calculated GFR & GFRAA in patients over 70 years has not been determined. Clinical correlation is essential. Serum or plasma urea nitroge n measurement (mass/volume)on 04-11-2022 Urea nitrogen [Mass/Vol] 19 mg/dL 7-18 [facility] Work Phone: Thin prep Papanicolaou smear with manual screeningon 04-11-2022 Thin prep Papanicolaou smear with manual screening 3 11-09 [facility] Work Phone: Basophil percentageon 2021 Chloride [Moles/Vol] 110 mmol/L 98-107 [facility]: Glucose [Mass/Vol] 108 mg/dL 74-106 [facility] Work Phone: Comment on above: Fasting Glucose resu lt from 100 to 125 mg/dL suggests IMPAIRED HOMEOSTASIS per A.D.A. criteria. Potassium [Moles/Vol] 4.1 mmol/L 3.5-5.1 [facility] Work Phone: Sodium [Moles/Vol] 144 mmol/L 136-145 [facility] Work Phone: WBC (Bld) [#/Vol] 6.8 10*3/uL 4.4-11.0 [facility] Work Phone: Blood erythrocytes count (nu mber/volume)on 03-17-2022 RBC (Bld) [#/Vol] 4.81 10*6/uL 4.2-5.4 [facility] Work Phone: Blood hemoglobin measurement (mass/volume)on 03-17-2022 Hemoglobin (Bld) [Mass/Vol] 14.0 g/dL 12.0-15.0 [facility] Work Phone: Blood platelet mean volumeon 03-17-2022 Platelet mean volume (Bld) [Entitic vol] 9.5 fL 6.2-12.0 [facility] Work Phone: Determination of erythrocyte mean corpuscular volume (MCV)on 03-17-2022 MCV (RBC) [Entitic vol] 90.4 fL 81-99 [facility] Work Phone: Hematocrit Auto (Bld) [Volum e fraction]on 03-17-2022 Hematocrit (Bld) [Volume fraction] 43.5 % 37-47 [facility] Work Phone: INR in Blood by Coagulation assayon 03-17-2022 INR Coag (Bld) [Relative time] 1.0 {INR} [facility] Work Phone: Laboratory - Chemistry and C hemistry - challengeon 03-17-2022 CO2 [Moles/Vol] 31.0 mmol/L 21.0-32.0 [facility] Work Phone: Urea nitrogen/Creatinine [Mass ratio] 20.9 mg/mg -20 [facility] Work Phone: Laboratory - Coagulationon 0 03-17-2022 aPTT Coag (Bld) [Time] 25.3 s 24.1-36.2 [facility] Work Phone: PT Coag (PPP) [Time] 12.4 s 11.7-14.9 [facility] Work Phone: Laboratory - Hematology and Cell countson 03-17-2022 Erythrocyte distribution width (RBC) [Entitic vol] 47.3 fL 35.1-43.9 [facility] Work Phone: Erythrocyte distribution width (RBC) [Ratio] 14.2 % 11.6-14.6 [facility] Work Phone: MCH (RBC) [Entitic mass] 29.1 pg 27.0-32.0 [facility] Work Phone: MCHC Auto (RBC) [Mass/Vol]on 03-17-2022 MCHC (RBC) [Mass/Vol] 32.2 g/dL 32-36 [facility] Work Phone: No Panel Informationon 03-17 Estimated Creatinine Clearance Calc 71.04 ml/min [facility] Work Phone: Estimated GFR (MDRD) Amer 126 mL/min >60 [facility] Work Phone: Comment on above: GFR Calc Estimated GFR (MDRD) Non-Af Amer 104 mL/min >60 [facility] Work Phone: Comment on above: Non- GFR Calc Platelets bldon 03-17-2022 Platelets (Bld) [#/Vol] 212 10*3/uL 150-450 [facility] Work Phone: Serum or plasma calcium jasiel urement (mass/volume)on 03-17-2022 Calcium [Mass/Vol] 9.9 mg/dL 8.5-10.1 [facility] Work Phone: Serum or plasma creatinine m easurement (mass/volume)on 03-17-2022 Creatinine [Mass/Vol] 0.62 mg/dL 0.55-1.02 [facility] Work Phone: Comment on above: The validity of the calculated GFR & GFRAA in patients over 70 years has not been determined. Clinical correlation is essential. Serum or plasma urea nitroge n measurement (mass/volume)on 03-17-2022 Urea nitrogen [Mass/Vol] 13 mg/dL 7-18 [facility] Work Phone: Thin prep Papanicolaou smear with manual screeningon 03-17-2022 Thin prep Papanicolaou smear with manual screening 3 5-15 [facility] Work Phone: Absolute lymphocyte counton 02-04-2022 Lymphocytes Auto (Unsp spec) [#/Vol] 1.83 10*3/uL 0.83-4.51 [facility] Work Phone: Basophil percentageon 2021 Basophils/100 WBC (Bld) 0.7 % 0-1 [facility] Work Phone: Bilirubin [Mass/Vol] 0.30 mg/dL 0.20-1.00 [facility] Work Phone: Comment on above: For patients on eltr ombopag therapy, use of [place] TBIL is not recommended. Chloride [Moles/Vol] 110 mmol/L 98-107 [facility] Work Phone: Eosinophils/100 WBC (Bld) 6.0 % 0-5 [facility] Work Phone: Glucose [Mass/Vol] 121 mg/dL 74-106 [facility] Work Phone: Comment on above: Fasting Glucose resu lt from 100 to 125 mg/dL suggests IMPAIRED HOMEOSTASIS per A.D.A. criteria. Neutrophils (Bld) [#/Vol] 4.3 10*3/uL 2.0-7.7 [facility] Work Phone: Neutrophils/100 WBC (Bld) 58.7 % 47-70 [facility] Work Phone: Potassium [Moles/Vol] 4.1 mmol/L 3.5-5.1 [facility] Work Phone: Protein [Mass/Vol] 7.4 g/dL 6.4-8.2 [facility] Work Phone: Sodium [Moles/Vol] 142 mmol/L 136-145 [facility] Work Phone: WBC (Bld) [#/Vol] 7.3 10*3/uL 4.4-11.0 [facility] Work Phone: Blood erythrocytes count (nu mber/volume)on 02-04-2022 RBC (Bld) [#/Vol] 4.52 10*6/uL 4.2-5.4 [facility] Work Phone: Blood hemoglobin measurement (mass/volume)on 02-04-2022 Hemoglobin (Bld) [Mass/Vol] 13.0 g/dL 12.0-15.0 [facility] Work Phone: Blood lymphocytes/100 leukoc yteson 02-04-2022 Lymphocytes/100 WBC (Bld) 24.9 % 19-41 [facility] Work Phone: [phone] Blood monocytes/100 leukocyt eson 02-04-2022 Monocytes/100 WBC (Bld) 9.3 % 0-10 [facility] Work Phone: Blood platelet mean volumeon 02-04-2022 Platelet mean volume (Bld) [Entitic vol] 10.8 fL 6.2-12.0 [facility] Work Phone: Determination of erythrocyte mean corpuscular volume (MCV)on 02-04-2022 MCV (RBC) [Entitic vol] 91.8 fL 81-99 [facility] Work Phone: Hematocrit Auto (Bld) [Volum e fraction]on 02-04-2022 Hematocrit (Bld) [Volume fraction] 41.5 % 37-47 [facility] Work Phone: Laboratory - Chemistry and C hemistry - challengeon 02-04-2022 ALP [Catalytic activity/Vol] 84 U/L 45-117 [facility] Work Phone: ALT [Catalytic activity/Vol] 13 U/L 13-56 [facility] Work Phone: CO2 [Moles/Vol] 27.0 mmol/L 21.0-32.0 [facility] Work Phone: Globulin (S) [Mass/Vol] 4.2 g/dL 2.2-4.2 [facility] Work Phone: Urea nitrogen/Creatinine [Mass ratio] 35.5 mg/mg 10-20 [facility] Work Phone: Laboratory - Hematology and Cell countson 02-04-2022 Erythrocyte distribution width (RBC) [Entitic vol] 48.0 fL 35.1-43.9 [facility] Work Phone: Erythrocyte distribution width (RBC) [Ratio] 14.2 % 11.6-14.6 [facility] Work Phone: Immature granulocytes/100 WBC (Bld) 0.400 % 0.0-0.9 [facility] [facility] Work Phone: Comment on above: IG% - Immature Granu locytes (promyelocytes, myelocytes and metamyelocytes) > 1% indicates that a LEFT SHIFT is Present. MCH (RBC) [Entitic mass] 28.8 pg 27.0-32.0 [facility] Work Phone: Nucleated RBC/100 WBC (Bld) [Ratio] 0 % 0-5 [facility] Work Phone: MCHC Auto (RBC) [Mass/Vol]on 02-04-2022 MCHC (RBC) [Mass/Vol] 31.3 g/dL 32-36 [facility] Work Phone: No Panel Informationon 02-04 Estimated GFR (MDRD) Amer 121 mL/min >60 [facility] Work Phone: Comment on above: GFR Calc Estimated GFR (MDRD) Non-Af Amer 100 mL/min >60 [facility] Work Phone: Comment on above: Non- GFR Calc Platelets bldon 02-04-2022 Platelets (Bld) [#/Vol] 180 10*3/uL 150-450 [facility] Work Phone: Serum or plasma albumin jasiel urement (mass/volume)on 02-04-2022 Albumin [Mass/Vol] 3.2 g/dL 3.2-5.0 [facility] Work Phone: Serum or plasma albumin/glob ulin mass ratioon 02-04-2022 Albumin/Globulin [Mass ratio] 0.8 {ratio} 0.9-2.4 [facility] Work Phone: Serum or plasma calcium jasiel urement (mass/volume)on 02-04-2022 Calcium [Mass/Vol] 9.1 mg/dL 8.5-10.1 [facility] Work Phone: Serum or plasma creatinine m easurement (mass/volume)on 02-04-2022 Creatinine [Mass/Vol] 0.65 mg/dL 0.55-1.02 [facility] Work Phone: Comment on above: The validity of the calculated GFR & GFRAA in patients over 70 years has not been determined. Clinical correlation is essential. Serum or plasma urea nitroge n measurement (mass/volume)on 02-04-2022 Urea nitrogen [Mass/Vol] 23 mg/dL 7-18 [facility] Work Phone: Thin prep Papanicolaou smear with manual screeningon 02-04-2022 Thin prep Papanicolaou smear with manual screening 13 U/L 15-37 [facility] Work Phone: Thin prep Papanicolaou smear with manual screening 5 5-15 [facility] Work Phone: Absolute lymphocyte counton 10-17-2021 Lymphocytes Auto (Unsp spec) [#/Vol] 1.37 10*3/uL 0.83-4.51 [facility] Work Phone: Basophil percentageon 2021 Basophils/100 WBC (Bld) 0.8 % 0-1 [facility] Work Phone: Bilirubin [Mass/Vol] 0.40 mg/dL 0.20-1.00 [facility] Work Phone: Comment on above: For patients on eltr ombopag therapy, use of Dimension [place] TBIL is not recommended. Chloride [Moles/Vol] 110 mmol/L 98-107 [facility] Work Phone: Eosinophils/100 WBC (Bld) 3.9 % 0-5 [facility] Work Phone: Glucose [Mass/Vol] 119 mg/dL 74-106 [facility] Work Phone: Comment on above: Fasting Glucose resu lt from 100 to 125 mg/dL suggests IMPAIRED HOMEOSTASIS per A.D.A. criteria. Neutrophils (Bld) [#/Vol] 4.5 10*3/uL 2.0-7.7 [facility] Work Phone: Neutrophils/100 WBC (Bld) 67.4 % 47-70 [facility] Work Phone: [phone] Potassium [Moles/Vol] 4.5 mmol/L 3.5-5.1 [facility] Work Phone: Protein [Mass/Vol] 7.9 g/dL 6.4-8.2 [facility] Work Phone: Sodium [Moles/Vol] 138 mmol/L 136-145 [facility] Work Phone: WBC (Bld) [#/Vol] 6.6 10*3/uL 4.4-11.0 [facility] Work Phone: Blood erythrocytes count (nu mber/volume)on 10-17-2021 RBC (Bld) [#/Vol] 5.03 10*6/uL 4.2-5.4 [facility] Work Phone: Blood hemoglobin measurement (mass/volume)on 10-17-2021 Hemoglobin (Bld) [Mass/Vol] 14.6 g/dL 12.0-15.0 [facility] Work Phone: Blood lymphocytes/100 leukoc yteson 10-17-2021 Lymphocytes/100 WBC (Bld) 20.7 % 19-41 [facility] Work Phone: Blood monocytes/100 leukocyt eson 10-17-2021 Monocytes/100 WBC (Bld) 6.9 % 0-10 [facility] Work Phone: Blood platelet mean volumeon 10-17-2021 Platelet mean volume (Bld) [Entitic vol] 10.4 fL 6.2-12.0 [facility] Work Phone: [phone] Determination of erythrocyte mean corpuscular volume (MCV)on 10-17-2021 MCV (RBC) [Entitic vol] 89.3 fL 81-99 [facility] Work Phone: Hematocrit Auto (Bld) [Volum e fraction]on 10-17-2021 Hematocrit (Bld) [Volume fraction] 44.9 % 37-47 [facility] Work Phone: Laboratory - Chemistry and C hemistry - challengeon 10-17-2021 ALP [Catalytic activity/Vol] 87 U/L 45-117 [facility] Work Phone: ALT [Catalytic activity/Vol] 16 U/L 13-56 [facility] Work Phone: CO2 [Moles/Vol] 24.0 mmol/L 21.0-32.0 [facility] Work Phone: Globulin (S) [Mass/Vol] 4.5 g/dL 2.2-4.2 [facility] Work Phone: Urea nitrogen/Creatinine [Mass ratio] 33.9 mg/mg 10-20 [facility] Work Phone: Laboratory - Hematology and Cell countson 10-17-2021 Erythrocyte distribution width (RBC) [Entitic vol] 46.2 fL 35.1-43.9 [facility] Work Phone: Erythrocyte distribution width (RBC) [Ratio] 14.1 % 11.6-14.6 [facility] Work Phone: Immature granulocytes/100 WBC (Bld) 0.300 % 0.0-0.9 [facility] Work Phone: Comment on above: IG% - Immature Granu locytes (promyelocytes, myelocytes and metamyelocytes) > 1% indicates that a LEFT SHIFT is Present. MCH (RBC) [Entitic mass] 29.0 pg 27.0-32.0 [facility] Work Phone: Nucleated RBC/100 WBC (Bld) [Ratio] 0 % 0-5 [facility] Work Phone: MCHC Auto (RBC) [Mass/Vol]on 10-17-2021 MCHC (RBC) [Mass/Vol] 32.5 g/dL 32-36 [facility] Work Phone: No Panel Informationon 10-17 Estimated GFR (MDRD) Amer 121 mL/min >60 [facility] Work Phone: Comment on above: GFR Calc Estimated GFR (MDRD) Non-Af Amer 100 mL/min >60 [facility] Work Phone: Comment on above: Non- GFR Calc Platelets bldon 10-17-2021 Platelets (Bld) [#/Vol] 197 10*3/uL 150-450 [facility] Work Phone: Serum or plasma albumin jasiel urement (mass/volume)on 10-17-2021 Albumin [Mass/Vol] 3.4 g/dL 3.2-5.0 [facility] Work Phone: Serum or plasma albumin/glob ulin mass ratioon 10-17-2021 Albumin/Globulin [Mass ratio] 0.8 {ratio} 0.9-2.4 [facility] Work Phone: Serum or plasma calcium jasiel urement (mass/volume)on 10-17-2021 Calcium [Mass/Vol] 9.3 mg/dL 8.5-10.1 [facility] Work Phone: Serum or plasma creatinine m easurement (mass/volume)on 10-17-2021 Creatinine [Mass/Vol] 0.65 mg/dL 0.55-1.02 [facility] Work Phone: Comment on above: The validity of the calculated GFR & GFRAA in patients over 70 years has not been determined. Clinical correlation is essential. Serum or plasma urea nitroge n measurement (mass/volume)on 10-17-2021 Urea nitrogen [Mass/Vol] 22 mg/dL 7-18 [facility] Work Phone: Thin prep Papanicolaou smear with manual screeningon 10-17-2021 Thin prep Papanicolaou smear with manual screening 14 U/L 15-37 [facility] Work Phone: Thin prep Papanicolaou smear with manual screening 4 5-15 [facility] Work Phone: Absolute lymphocyte counton 08-05-2021 Lymphocytes Auto (Unsp spec) [#/Vol] 1.92 10*3/uL 0.83-4.51 [facility] Work Phone: Basophil percentageon 2021 Basophils/100 WBC (Bld) 1.1 % 0-1 [facility] Work Phone: Bilirubin [Mass/Vol] 0.30 mg/dL 0.20-1.00 [facility] Work Phone: Comment on above: For patients on eltr ombopag therapy, use of Dimension [place] TBIL is not recommended. Chloride [Moles/Vol] 108 mmol/L 98-107 [facility] Work Phone: Eosinophils/100 WBC (Bld) 5.3 % 0-5 [facility] Work Phone: Glucose [Mass/Vol] 103 mg/dL 74-106 [facility] Work Phone: Comment on above: Fasting Glucose resu lt from 100 to 125 mg/dL suggests IMPAIRED HOMEOSTASIS per A.D.A. criteria. Neutrophils (Bld) [#/Vol] 3.7 10*3/uL 2.0-7.7 [facility] Work Phone: Neutrophils/100 WBC (Bld) 56.6 % 47-70 [facility] Work Phone: Potassium [Moles/Vol] 4.3 mmol/L 3.5-5.1 [facility] Work Phone: Protein [Mass/Vol] 7.2 g/dL 6.4-8.2 [facility] Work Phone: Sodium [Moles/Vol] 141 mmol/L 136-145 [facility] Work Phone: WBC (Bld) [#/Vol] 6.6 10*3/uL 4.4-11.0 [facility] Work Phone: Blood erythrocytes count (nu mber/volume)on 08-05-2021 RBC (Bld) [#/Vol] 4.76 10*6/uL 4.2-5.4 [facility] Work Phone: Blood hemoglobin measurement (mass/volume)on 08-05-2021 Hemoglobin (Bld) [Mass/Vol] 14.0 g/dL 12.0-15.0 [facility] Work Phone: Blood lymphocytes/100 leukoc yteson 08-05-2021 Lymphocytes/100 WBC (Bld) 29.1 % 19-41 [facility] Work Phone: Blood monocytes/100 leukocyt eson 08-05-2021 Monocytes/100 WBC (Bld) 7.6 % 0-10 [facility] Work Phone: Blood platelet mean volumeon 08-05-2021 Platelet mean volume (Bld) [Entitic vol] 10.0 fL 6.2-12.0 [facility] Work Phone: Determination of erythrocyte mean corpuscular volume (MCV)on 08-05-2021 MCV (RBC) [Entitic vol] 89.9 fL 81-99 [facility] Work Phone: Hematocrit Auto (Bld) [Volum e fraction]on 08-05-2021 Hematocrit (Bld) [Volume fraction] 42.8 % 37-47 [facility] Work Phone: Laboratory - Chemistry and C hemistry - challengeon 08-05-2021 ALP [Catalytic activity/Vol] 92 U/L 45-117 [facility] Work Phone: ALT [Catalytic activity/Vol] 15 U/L 13-56 [facility] Work Phone: CO2 [Moles/Vol] 25.0 mmol/L 21.0-32.0 [facility] Work Phone: Globulin (S) [Mass/Vol] 3.8 g/dL 2.2-4.2 [facility] Work Phone: Urea nitrogen/Creatinine [Mass ratio] 29.7 mg/mg 10-20 [facility] Work Phone: Laboratory - Hematology and Cell countson 08-05-2021 Erythrocyte distribution width (RBC) [Entitic vol] 44.1 fL 35.1-43.9 [facility] Work Phone: Erythrocyte distribution width (RBC) [Ratio] 13.2 % 11.6-14.6 [facility] Work Phone: Immature granulocytes/100 WBC (Bld) 0.300 % 0.0-0.9 [facility] Work Phone: Comment on above: IG% - Immature Granu locytes (promyelocytes, myelocytes and metamyelocytes) > 1% indicates that a LEFT SHIFT is Present. MCH (RBC) [Entitic mass] 29.4 pg 27.0-32.0 [facility] Work Phone: Nucleated RBC/100 WBC (Bld) [Ratio] 0 % 0-5 [facility] Work Phone: MCHC Auto (RBC) [Mass/Vol]on 08-05-2021 MCHC (RBC) [Mass/Vol] 32.7 g/dL 32-36 [facility] Work Phone: No Panel Informationon 08-05 Estimated GFR (MDRD) Amer 109 mL/min >60 [facility] Work Phone: Comment on above: GFR Calc Estimated GFR (MDRD) Non-Af Amer 90 mL/min >60 [facility] Work Phone: Comment on above: Non- GFR Calc Platelets bldon 08-05-2021 Platelets (Bld) [#/Vol] 211 10*3/uL 150-450 [facility] Work Phone: Serum or plasma albumin jasiel urement (mass/volume)on 08-05-2021 Albumin [Mass/Vol] 3.4 g/dL 3.2-5.0 [facility] Work Phone: Serum or plasma albumin/glob ulin mass ratioon 08-05-2021 Albumin/Globulin [Mass ratio] 0.9 {ratio} 0.9-2.4 [facility] Work Phone: Serum or plasma calcium jasiel urement (mass/volume)on 08-05-2021 Calcium [Mass/Vol] 8.9 mg/dL 8.5-10.1 [facility] Work Phone: Serum or plasma creatinine m easurement (mass/volume)on 08-05-2021 Creatinine [Mass/Vol] 0.71 mg/dL 0.55-1.02 [facility] Work Phone: Comment on above: The validity of the calculated GFR & GFRAA in patients over 70 years has not been determined. Clinical correlation is essential. Serum or plasma urea nitroge n measurement (mass/volume)on 08-05-2021 Urea nitrogen [Mass/Vol] 21 mg/dL 7-18 [facility] Work Phone: Thin prep Papanicolaou smear with manual screeningon 08-05-2021 Thin prep Papanicolaou smear with manual screening 11 U/L 15-37 [facility] Work Phone: Thin prep Papanicolaou smear with manual screening 8 5-15 [facility] Work Phone: Culture, urine Bacteria identified Cx Nom (U) Klebsiella pneumoniae sp pneum [facility] Work Phone: Vital Signs Date Time Vital Sign Value Performing Clinician Facility 01-14-2025 10:03-0400 Body height 157.[address] Nehemias Arizmendi MD Work Phone: [facility] 01-14-2025 10:03-0400 Body mass index (BMI) [Ratio] 36.7 kg/m2 Dr. Nehemias Arizmendi MD Work Phone: [facility] 01-14-2025 10:03-0400 Body temperature 98 [degF] Dr. Nehemias Arizmendi MD Work Phone: [facility] 01-14-2025 10:03-0400 Body weight 91.[address] Nehemias Arizmendi MD Work Phone: [facility] 01-14-2025 10:03-0400 Diastolic blood pressure 72 mm[Hg] Dr. Nehemias Arizmendi MD Work Phone: [facility] 01-14-2025 10:03-0400 Heart rate 110 /min Dr. Nehemias Arizmendi MD Work Phone: [facility] 01-14-2025 10:03-0400 Respiratory rate 16 /min Dr. Nehemias Arizmendi MD Work Phone: [facility] 01-14-2025 10:03-0400 SaO2% (BldA) [Mass fraction] 99 % Dr. Nehemias Arizmendi MD Work Phone: [facility] 01-14-2025 10:03-0400 Systolic blood pressure 110 mm[Hg] Dr. Nehemias Arizmendi MD Work Phone: [facility] 10-23-2024 14:35-0400 Body temperature 98 [degF] Dr. Nehemias Arizmendi MD Work Phone: [facility] 10-23-2024 14:35-0400 Diastolic blood pressure 63 mm[Hg] Dr. Nehemias Arizmendi MD Work Phone: [phone])085-[address] [place] [address] 10-23-2024 14:35-0400 Heart rate 86 /min Dr. Nehemias Arizmendi MD Work Phone: [phone])[phone] [place] [address] 10-23-2024 14:35-0400 Inhaled oxygen flow rate 2 L/min Dr. Nehemias Arizmendi MD Work Phone: 8(411)[phone] [place] [address] 10-23-2024 14:35-0400 Respiratory rate 18 /min Dr. Nehemais Arizmendi MD Work Phone: 6(483)[phone] [place] [address] 10-23-2024 14:35-0400 SaO2% (BldA) [Mass fraction] 94 % Dr. Nehemias Arizmendi MD Work Phone: 7(681)860-527209 [place] [address] 10-23-2024 14:35-0400 Systolic blood pressure 103 mm[Hg] Dr. Nehemias Arizmendi MD Work Phone: [facility] 10-22-2024 00:55-0400 Inhaled oxygen concentration 40 % Dr. Nehemias Arizmendi MD Work Phone: 5(747)[phone] [place] [address] 10-18-2024 23:10-0400 Body height 157.[address] Nehemias Arizmendi MD Work Phone: [facility] 10-18-2024 23:10-0400 Body mass index (BMI) [Ratio] 39.6 kg/m2 Dr. Nehemias Arizmendi MD Work Phone: 6(333)[phone] [place] [address] 10-18-2024 23:10-0400 Body weight 98.[address] Nehemias Arizmendi MD Work Phone: [facility] 10-18-2024 21:14-0400 Heart rate 106 /min Dr. Nehemias Arizmendi MD Work Phone: [facility] 10-18-2024 21:14-0400 Inhaled oxygen flow rate 2 L/min Dr. Nehemias Arizmendi MD Work Phone: [facility] 10-18-2024 21:14-0400 Respiratory rate 21 /min Dr. Nehemias Arizmendi MD Work Phone: [facility] 10-18-2024 21:14-0400 SaO2% (BldA) [Mass fraction] 94 % Dr. eNhemias Arizmendi MD Work Phone: [facility] 10-18-2024 21:11-0400 Body temperature 98.5 [degF] Dr. Nehemias Arizmendi MD Work Phone: [facility] 10-18-2024 20:06-0400 Diastolic blood pressure 66 mm[Hg] Dr. Nehemias Arizmendi MD Work Phone: [facility] 10-18-2024 20:06-0400 Systolic blood pressure 98 mm[Hg] Dr. Nehemias Arizmendi MD Work Phone: [facility] 01-09-2023 13:40-0400 Heart rate 99 /min ARIANA RIVAS MD [address] 01-09-2023 13:35-0400 Heart rate 102 /min ARIANA RIVAS MD [address] 01-09-2023 13:03-0400 Heart rate 88 /min ARIANA RIVAS MD [address] 01-09-2023 13:03-0400 Respiratory rate 20 /min ARIANA RIVAS MD [address] 01-09-2023 13:01-0400 Heart rate 89 /min ARIANA RIVAS MD [facility] 01-09-2023 10:59-0400 Body temperature 98.24 [degF] ARIANA RIVAS MD [facility] 01-09-2023 10:59-0400 Diastolic Blood Pressure Non-Invasive 86 1 ARIANA RIVAS MD [address] [place] [address] 01-09-2023 10:59-0400 Reason For Taking VItal Signs ARIANA RIVAS MD [address] [place] [address] 01-09-2023 10:59-0400 Respiratory rate 18 /min ARIANA RIVAS MD [address] [place] [address] 01-09-2023 10:59-0400 Systolic Blood Pressure Non-Invasive 118 1 ARIANA RIVAS MD [address] [place] [address] 01-09-2023 07:45-0400 Body temperature 97.88 [degF] ARIANA RIVAS MD [address] [place] [address] 01-09-2023 07:45-0400 Diastolic Blood Pressure Non-Invasive 62 1 ARIANA RIVAS MD [address] [place] [address] 01-09-2023 07:45-0400 Systolic Blood Pressure Non-Invasive 115 1 ARIANA RIVAS MD [address] [place] [address] 01-09-2023 06:12-0400 Heart rate 84 /min ARIANA RIVAS MD [address] [place] [address] 01-09-2023 06:12-0400 Respiratory rate 20 /min ARIANA RIVAS MD [address] [place] [address] 01-09-2023 03:15-0400 Blood Pressure Location ARIANA RIVAS MD [address] [place] [address] 01-09-2023 03:15-0400 Blood Pressure Method ARIANA RIVAS MD [address] [place] [address] 01-09-2023 03:15-0400 Body temperature 97.88 [degF] ARIANA RIVAS MD [address] [place] [address] 01-09-2023 03:15-0400 Diastolic Blood Pressure Non-Invasive 71 1 ARIANA RIVAS MD [address] [place] [address] 01-09-2023 03:15-0400 Mean blood pressure 91 mm[Hg] ARIANA RIVAS MD [address] [place] [address] 01-09-2023 03:15-0400 Reason For Taking VItal Signs ARIANA RIVAS MD [address] [place] [address] 01-09-2023 03:15-0400 Systolic Blood Pressure Non-Invasive 137 1 ARIANA RIVAS MD [address] [place] [address] 01-09-2023 00:19-0400 Blood Pressure Location ARIANA RIVAS MD [address] [place] [address] 01-09-2023 00:19-0400 Blood Pressure Method ARIANA RIVAS MD [address] [place] [address] 01-09-2023 00:19-0400 Mean blood pressure 76 mm[Hg] ARIANA RIVAS MD [address] [place] [address] 01-09-2023 00:19-0400 Reason For Taking VItal Signs ARIANA RIVAS MD [address] [place] [address] 01-08-2023 19:19-0400 Heart rate 93 /min ARIANA RIVAS MD [address] [place] [address] 01-08-2023 18:40-0400 Blood Pressure Cuff Size ARIANA RIVAS MD [address] [place] [address] 01-08-2023 18:40-0400 Blood Pressure Location ARIANA RIVAS MD [address] [place] [address] 01-08-2023 18:40-0400 Blood Pressure Method ARIANA RIVAS MD [address] [place] [address] 01-08-2023 14:33-0400 Blood Pressure Cuff Size ARIANA RIVAS MD [address] [place] [address] 01-08-2023 10:45-0400 Blood Pressure Cuff Size ARIANA RIVAS MD [address] [place] [address] 01-08-2023 05:02-0400 Mean blood pressure 85 mm[Hg] ARIANA RIVAS MD [address] [place] [address] 01-06-2023 14:00-0400 Diastolic blood pressure 86 mm[Hg] Dr. Nehemias Arizmendi Work Phone: [facility] 01-06-2023 14:00-0400 Heart rate 100 /min Dr. Nehemias Arizmendi Work Phone: [facility] 01-06-2023 14:00-0400 Respiratory rate 24 /min Dr. Nehemias Arizmendi Work Phone: [facility] 01-06-2023 14:00-0400 SaO2% (BldA) [Mass fraction] 95 % Dr. Nehemias Arizmendi Work Phone: [facility] 01-06-2023 14:00-0400 Systolic blood pressure 139 mm[Hg] Dr. Nehemias Arizmendi Work Phone: [facility] 01-06-2023 06:00-0400 Body height 160 cm ARIANA RIVAS MD [address] 01-06-2023 06:00-0400 Body weight 98.7 kg ARIANA RIVAS MD [address] [place] [address] 01-06-2023 06:00-0400 Body weight 38.55 kg/m2 ARIANA RIVAS MD [address] [place] [address] 01-06-2023 00:54-0400 Body temperature 97.8 [degF] Dr. Nehemias Arizmendi Work Phone: [facility] 01-06-2023 00:00-0400 Inhaled oxygen flow rate 4 L/min Dr. Nehemias Arizmendi Work Phone: [facility] 01-05-2023 15:04-0400 Body mass index (BMI) [Ratio] 37.7 kg/m2 Dr. Nehemias Arizmendi Work Phone: [facility] 01-05-2023 15:04-0400 Body weight 96.[address] Nehemias Arizmendi Work Phone: [facility] 01-05-2023 14:49-0400 Body height 160.[address] Nehemias Arizmendi Work Phone: [facility] 01-03-2023 12:38-0400 Body temperature 97.8 [degF] Dr. Nehemias Arizmendi Work Phone: [facility] 01-03-2023 12:38-0400 Diastolic blood pressure 78 mm[Hg] Dr. Nehemias Arizmendi Work Phone: [facility] 01-03-2023 12:38-0400 Heart rate 64 /min Dr. Nehemias Arizmendi Work Phone: [facility] 01-03-2023 12:38-0400 Respiratory rate 14 /min Dr. Neehmias Arizmendi Work Phone: [phone] [address] 01-03-2023 12:38-0400 SaO2% (BldA) [Mass fraction] 92 % Dr. Nehemias Arizmendi Work Phone: 4(184)[phone] [place] [address] 01-03-2023 12:38-0400 Systolic blood pressure 110 mm[Hg] Dr. Nehemias Arizmendi Work Phone: [facility] 01-03-2023 12:23-0400 Inhaled oxygen flow rate 2 L/min Dr. Nehemias Arizmendi Work Phone: [facility] 01-03-2023 11:24-0400 Body height 160.[address] Nehemias Arizmendi Work Phone: 4(702)[phone] [address] 01-03-2023 11:24-0400 Body mass index (BMI) [Ratio] 36.8 kg/m2 Dr. Nehemias Arizmendi Work Phone: [facility] 01-03-2023 11:24-0400 Body weight 94.[address] Nehemias Arizmendi Work Phone: [facility] 11-16-2022 14:51-0400 Body mass index (BMI) [Ratio] 36.2 kg/m2 Dr. Nehemias Arizmendi Work Phone: [facility] 11-16-2022 14:51-0400 Body weight 92.[address] Nehemias Arizmendi Work Phone: [facility] 11-16-2022 14:51-0400 Diastolic blood pressure 83 mm[Hg] Dr. Nehemias Arizmendi Work Phone: [facility] 11-16-2022 14:51-0400 Heart rate 89 /min Dr. Nehemias Arizmendi Work Phone: [facility] 11-16-2022 14:51-0400 Respiratory rate 16 /min Dr. Nehemias Arizmendi Work Phone: [facility] 11-16-2022 14:51-0400 Systolic blood pressure 143 mm[Hg] Dr. Nehemias Arizmendi Work Phone: 5([phone])[phone] [address] 09-16-2022 09:53-0400 Body height 160.[address] Nehemias Arizmendi Work Phone: 2(108)[phone] [place] [address] 09-16-2022 09:53-0400 Body mass index (BMI) [Ratio] 38.5 kg/m2 Dr. Nehemias Arizmendi Work Phone: [facility] 09-16-2022 09:53-0400 Body temperature 98.6 [degF] Dr. Nehemias Arizmendi Work Phone: [facility] 09-16-2022 09:53-0400 Body weight 98.[address] Nehemias Arizmendi Work Phone: [facility] 09-16-2022 09:53-0400 Diastolic blood pressure 76 mm[Hg] Dr. Nehemias Arizmendi Work Phone: [facility] 09-16-2022 09:53-0400 Heart rate 90 /min Dr. Nehemias Arizmendi Work Phone: [facility] 09-16-2022 09:53-0400 Respiratory rate 17 /min Dr. Nehemias Arizmendi Work Phone: [facility] 09-16-2022 09:53-0400 SaO2% (BldA) [Mass fraction] 94 % Dr. Nehemias Arizmendi Work Phone: [facility] 09-16-2022 09:53-0400 Systolic blood pressure 138 mm[Hg] Dr. Nehemias Arizmendi Work Phone: [facility] 05-11-2022 15:04-0500 Body height 160.[address] Nehemias Arizmnedi Work Phone: [facility] 05-11-2022 15:04-0500 Body mass index (BMI) [Ratio] 37.2 kg/m2 Dr. Nehemias Arizmendi Work Phone: [facility] 05-11-2022 15:04-0500 Body weight 95.[address] Nehemias Arizmendi Work Phone: [facility] 05-11-2022 15:04-0500 Diastolic blood pressure 82 mm[Hg] Dr. Nehemias Arizmendi Work Phone: [facility] 05-11-2022 15:04-0500 Heart rate 90 /min Dr. Nehemias Arizmendi Work Phone: [facility] 05-11-2022 15:04-0500 Respiratory rate 20 /min Dr. Nehemias Arizmendi Work Phone: [facility] 05-11-2022 15:04-0500 SaO2% (BldA) [Mass fraction] 96 % Dr. Nehemias Arizmendi Work Phone: [facility] 05-11-2022 15:04-0500 Systolic blood pressure 135 mm[Hg] Dr. Nehemias Arizmendi Work Phone: [facility] 04-15-2022 15:20-0400 Body temperature 98.7 [degF] Dr. Nehemias Arizmendi Work Phone: [facility] Work Phone: 04-15-2022 15:20-0400 Diastolic blood pressure 67 mm[Hg] Dr. Nehemias Arizmendi Work Phone: [facility] Work Phone: 04-15-2022 15:20-0400 Heart rate 85 /min Dr. Nehemias Arizmendi Work Phone: [facility] Work Phone: 04-15-2022 15:20-0400 Respiratory rate 16 /min Dr. Nehemias Arizmendi Work Phone: [facility] Work Phone: 04-15-2022 15:20-0400 SaO2% (BldA) [Mass fraction] 93 % Dr. Nehemias Arizmendi Work Phone: [facility] Work Phone: 04-15-2022 15:20-0400 Systolic blood pressure 126 mm[Hg] Dr. Nehemias Arizmendi Work Phone: [facility] Work Phone: 04-15-2022 14:25-0400 Inhaled oxygen flow rate 2 L/min Dr. Nehemias Arizmendi Work Phone: [facility] Work Phone: 04-15-2022 13:33-0400 Body height 160.[address] Nehemias Arizmendi Work Phone: [facility] Work Phone: 04-15-2022 13:33-0400 Body mass index (BMI) [Ratio] 36.1 kg/m2 Dr. Nehemias Arizmendi Work Phone: [facility] Work Phone: 04-15-2022 13:33-0400 Body weight 92.[address] Nehemias Arizmendi Work Phone: [facility] Work Phone: 04-15-2022 06:29-0400 Body height 160.[address] Nehemias Arizmendi Work Phone: [facility] Work Phone: 04-15-2022 06:29-0400 Body mass index (BMI) [Ratio] 36.1 kg/m2 Dr. Nehemias Arizmendi Work Phone: [facility] Work Phone: 04-15-2022 06:29-0400 Body temperature 97.8 [degF] Dr. Nehemias Arizmendi Work Phone: [facility] Work Phone: 04-15-2022 06:29-0400 Body weight 92.[address] Nehemias Arizmendi Work Phone: [facility] Work Phone: 04-15-2022 06:29-0400 Diastolic blood pressure 65 mm[Hg] Dr. Nehemias Arizmendi Work Phone: [facility] Work Phone: 04-15-2022 06:29-0400 Heart rate 78 /min Dr. Nehemias Arizmendi Work Phone: [facility] Work Phone: 04-15-2022 06:29-0400 Respiratory rate 16 /min Dr. Nehemias Arizmendi Work Phone: [facility] Work Phone: 04-15-2022 06:29-0400 SaO2% (BldA) [Mass fraction] 93 % Dr. Nehemias Arizmendi Work Phone: [facility] Work Phone: 04-15-2022 06:29-0400 Systolic blood pressure 104 mm[Hg] Dr. Nehemias Arizmendi Work Phone: [facility] Work Phone: 03-24-2022 07:39-0400 Body height 152.[address] Nehemias Arizmendi Work Phone: [facility] Work Phone: 03-24-2022 07:39-0400 Body weight 90.[address] Nehemias Arizmendi Work Phone: [facility] Work Phone: 02-25-2022 13:35-0400 Diastolic blood pressure 64 mm[Hg] Dr. Nehemias Arizmendi Work Phone: [facility] Work Phone: 02-25-2022 13:35-0400 Heart rate 72 /min Dr. Nehemias Arizmendi Work Phone: [facility] Work Phone: 02-25-2022 13:35-0400 Respiratory rate 14 /min Dr. Nehemias Arizmendi Work Phone: [facility] Work Phone: 02-25-2022 13:35-0400 SaO2% (BldA) [Mass fraction] 97 % Dr. Nehemias Arizmendi Work Phone: [facility] Work Phone: 02-25-2022 13:35-0400 Systolic blood pressure 104 mm[Hg] Dr. Nehemias Arizmendi Work Phone: [facility] Work Phone: 02-25-2022 13:19-0400 Body height 152.[address] Nehemias Arizmendi Work Phone: [facility] Work Phone: 02-25-2022 13:19-0400 Body mass index (BMI) [Ratio] 39 kg/m2 Dr. Nehemias Arizmendi Work Phone: [facility] Work Phone: 02-25-2022 13:19-0400 Body weight 90.[address] Nehemias Arizmendi Work Phone: [facility] Work Phone: 02-12-2022 07:34-0400 Body mass index (BMI) [Ratio] 39 kg/m2 Dr. Nehemias Arizmendi Work Phone: [facility] Work Phone: 02-09-2022 15:09-0400 Body mass index (BMI) [Ratio] 35.4 kg/m2 Dr. Nehemias Arizmendi Work Phone: [facility] Work Phone: 02-09-2022 15:09-0400 Body weight 90.[address] Nehemias Arizmendi Work Phone: [facility] Work Phone: 02-09-2022 15:09-0400 Diastolic blood pressure 74 mm[Hg] Dr. eNhemias Arizmendi Work Phone: [facility] Work Phone: 02-09-2022 15:09-0400 Heart rate 94 /min Dr. Nehemias Arizmendi Work Phone: [facility] Work Phone: 02-09-2022 15:09-0400 Respiratory rate 18 /min Dr. Nehemias Arizmendi Work Phone: [facility] Work Phone: 02-09-2022 15:09-0400 SaO2% (BldA) [Mass fraction] 96 % Dr. Nehemias Arizmendi Work Phone: [facility] Work Phone: 02-09-2022 15:09-0400 Systolic blood pressure 133 mm[Hg] Dr. Nehemias Arizmendi Work Phone: [facility] Work Phone: 02-09-2022 14:02-0400 Body mass index (BMI) [Ratio] 35.5 kg/m2 Dr. Nehemias Arizmendi Work Phone: [facility] Work Phone: 02-09-2022 14:02-0400 Body temperature 97.6 [degF] Dr. Nehemias Arizmendi Work Phone: [facility] Work Phone: 02-09-2022 14:02-0400 Body weight 90.[address] Nehemias Arizmendi Work Phone: [facility] Work Phone: 02-09-2022 14:02-0400 Diastolic blood pressure 78 mm[Hg] Dr. Nehemias Arizmendi Work Phone: [facility] Work Phone: 02-09-2022 14:02-0400 Heart rate 103 /min Dr. Nehemias Arizmendi Work Phone: [facility] Work Phone: 02-09-2022 14:02-0400 Respiratory rate 17 /min Dr. Nehemias Arizmendi Work Phone: [facility] Work Phone: 02-09-2022 14:02-0400 SaO2% (BldA) [Mass fraction] 98 % Dr. Nehemias Arizmendi Work Phone: [facility] Work Phone: 02-09-2022 14:02-0400 Systolic blood pressure 126 mm[Hg] Dr. Neheimas Arizmendi Work Phone: [facility] Work Phone: 01-01-2022 14:29-0400 Body height 160.[address] Nehemias Arizmendi Work Phone: [facility] Work Phone: 01-01-2022 14:29-0400 Body mass index (BMI) [Ratio] 35.5 kg/m2 Dr. Nehemias Arizmendi Work Phone: [facility] Work Phone: 01-01-2022 14:29-0400 Body weight 90.[address] Nehemias Arizmendi Work Phone: [facility] Work Phone: 01-01-2022 14:29-0400 Diastolic blood pressure 76 mm[Hg] Dr. Nehemias Arizmendi Work Phone: [facility] Work Phone: 01-01-2022 14:29-0400 Heart rate 84 /min Dr. Nehemias Arizmendi Work Phone: [facility] Work Phone: 01-01-2022 14:29-0400 Respiratory rate 18 /min Dr. Nehemias Arizmendi Work Phone: [facility] Work Phone: 01-01-2022 14:29-0400 Systolic blood pressure 150 mm[Hg] Dr. Nehemias Arizmendi Work Phone: [facility] Work Phone: Encounters Encounter Date Encounter Type Care Provider Facility Start: 01-14-2025 End: 01-14-[address] Nehemias Arizmendi MD Work Phone: [facility] Start: 01-14-2025 End: 01-14-2025 Patient encounter procedure Yrn Champion [employer] WORKER-C -[facility] Work Phone: Start: 11-27-2024 End: 11-27-[address] Nehemias Arizmendi MD Work Phone: [facility] Work Phone: Start: 11-27-2024 End: 11-27-[address] Nehemias Arizmendi MD -[facility] Work Phone: Start: 11-27-2024 End: 11-27-2024 ambulatory Nehemias Arizmendi Facility:[facility] Start: 11-21-2024 End: 11-21-[address] Nehemias Arizmendi MD Work Phone: [facility] Work Phone: Start: 11-21-2024 End: 11-21-[address] Diana Ramos MD -[facility] Work Phone: Start: 11-21-2024 End: 11-21-2024 ambulatory Diana Ramos Facility:[facility] Start: 10-23-2024 Non-patient / Non-visit Dr. Evans [facility] Work Phone: Start: 10-22-2024 Non-patient / Non-visit Dr. Sy Higgins [facility] Work Phone: Start: 10-21-2024 Non-patient / Non-visit Dr. Daksha Robles [facility] Work Phone: Start: 10-20-2024 Non-patient / Non-visit Dr. Sy Higgins [facility] Work Phone: Start: 10-20-2024 Non-patient / Non-visit Thelma YO [facility] Start: 10-19-2024 Non-patient / Non-visit Thelma YO [facility] Start: 10-19-2024 Non-patient / Non-visit Dr. Sy Higgins DO [facility] Work Phone: Start: 10-19-2024 ambulatory Bharathi Rivera ty:[facility] Start: 10-19-2024 Non-patient / Non-visit Dr. Dre fajardo MD -[facility] Start: 10-18-2024 ambulatory Leobardo johana Fac ility:[facility] Start: 10-18-2024 End: 10-23-2024 Evaluation and management of inpatient Dr. Bharathi Robles DO -[facility] Work Phone: Start: 08-22-2024 End: 08-22-[address] Nehemias Arizmendi MD Work Phone: [facility] Work Phone: Start: 08-22-2024 End: 08-22-[address] Diana Ramos MD -Laboratory, [facility] Start: 08-22-2024 End: 08-22-2024 ambulatory [facility] Facility:[facility] Start: 05-29-2024 End: 05-29-[address] Diana Ramos MD -Laboratory, [facility] Start: 05-29-2024 End: 05-29-2024 ambulatory Diana Ramos Facility:[facility] Start: 03-16-2024 ambulatory Teo Coto Facility :[facility] Start: 03-10-2024 End: 03-10-2024 ambulatory [facility] Facility:[facility] Start: 01-31-2024 ambulatory Leobardo Soto Fac ility:[facility] Start: 01-28-2024 ambulatory Leobardo Soto Fac ility:[facility] Start: 01-28-2024 End: 01-31-2024 Evaluation and management of inpatient Leobardo Soto Facility:[facility] Start: 12-16-2023 End: 12-16-2023 ambulatory [facility] Facility:[facility] Start: 09-23-2023 End: 09-23-2023 ambulatory [facility] Work Phone: Start: 09-23-2023 End: 09-23-2023 Patient encounter procedure [facility] Start: 08-03-2023 End: 08-03-2023 Patient encounter procedure PHY WO ID REFERRING [facility] Start: 06-30-2023 End: 06-30-2023 ambulatory [facility] Work Phone: Start: 06-30-2023 End: 06-30-2023 Patient encounter procedure [facility] Start: 05-17-2023 End: 05-17-2023 ambulatory [facility] Work Phone: Start: 05-17-2023 End: 05-17-2023 Patient encounter procedure [facility] Work Phone: Start: 03-30-2023 End: 03-30-2023 Patient encounter procedure [facility] Start: 01-11-2023 End: 01-11-[address] Nehemias Arizmendi Work Phone: [facility] Work Phone: Start: 01-11-2023 End: 01-11-[address] Nehemias Arizmendi Work Phone: [facility] Work Phone: Start: 01-06-2023 End: 01-09-2023 Evaluation and management of inpatient RAIANA RIVAS MD Facility:[facility] Start: 01-06-2023 End: 01-09-2023 Evaluation and management of inpatient ARIANA RIVAS MD [facility] Start: 01-05-2023 End: 01-06-2023 Emergency department patient visit [facility] Nehemias [facility]endi [facility] Start: 01-03-2023 End: 01-03-2023 Emergency department patient visit Dr. Nehemias Arizmendi [facility] Start: 01-01-2023 End: 01-01-[address] Nehemias Arizmendi Work Phone: [facility] Start: 11-16-2022 End: 11-16-[address] Nehemias Arizmendi Work Phone: [facility] Work Phone: Start: 10-27-2022 End: 10-27-[address] Nehemias Arizmendi Work Phone: [facility] Work Phone: Start: 10-27-2022 End: 10-27-[address] Nehemias Arizmendi Work Phone: [facility] Start: 09-16-2022 End: 09-16-[address] Nehemias Arizmendi Work Phone: [facility] Work Phone: Start: 09-16-2022 End: 09-16-[address] Nehemias Arizmendi Work Phone: [facility] Start: 09-16-2022 End: 09-16-[address] Nehemias Arizmendi Work Phone: [facility] Start: 08-10-2022 End: 08-10-[address] Nehemias Arizmendi Work Phone: [facility] Work Phone: Start: 08-10-2022 End: 08-10-[address] Nehemias Arizmendi Work Phone: [facility] Start: 08-03-2022 End: 08-03-[address] Nehemias Arizmendi Work Phone: [facility] Start: 06-17-2022 End: 06-17-[address] Nehemias Arizmendi Work Phone: [facility] Work Phone: Start: 06-17-2022 End: 06-17-[address] [facility]hem[facility] Ariz[facility]endi [facility] Start: 05-11-2022 End: 05-11-[address] Nehemias Arizmendi Work Phone: [facility] Work Phone: Start: 05-11-2022 End: 05-11-[address] Nehemias Arizmendi Work Phone: [facility] Start: 04-28-2022 End: 04-28-[address] Nehemias Arizmendi Work Phone: [facility] Work Phone: Start: 04-28-2022 End: 04-28-[address] Nehemias Arizmendi Work Phone: [facility] Start: 04-15-2022 End: 04-15-2022 Evaluation and management of inpatient Dr. Nehemias Arizmendi Work Phone: [facility]-Medical Surgical 3 Start: 04-15-2022 End: 04-15-[address] Nehemias Arizmendi Work Phone: [facility] Work Phone: Start: 04-15-2022 Non-patient / Non-visit Dr. Sanaz Arizmendi Work Phone: [facility] Start: 04-15-2022 Admission [facility] Dr[facility] Nehemias Arizmendi Work Phone: [facility]-Sailing Officer Start: 04-11-2022 End: 04-11-[address] Nehemias Arizmendi Work Phone: [facility] Work Phone: Start: 04-11-2022 End: 04-11-[address] Nehemias Arizmendi Work Phone: [facility]Laboratory Start: 04-02-2022 End: 04-02-[address] Nehemias Arizmendi Work Phone: [facility] Work Phone: Start: 04-02-2022 End: 04-02-[address] Nehemias Arizmendi Work Phone: [facility]-Laboratory, Specimen Start: 03-30-[address] Nehemias flaherty Work Phone: [facility]-Cardiovascula r Services Start: 03-27-2022 End: 03-27-[address] Nehemias Arizmendi Work Phone: [facility] Start: 03-24-2022 End: 03-24-2022 Admission to same day surgery center Dr. Nehemias Arizmendi Work Phone: [facility]-Paint Mixer Hand/Special Procedures Start: 03-24-2022 End: 03-24-[address] Nehemias Arizmendi Work Phone: [facility] Work Phone: Start: 03-17-2022 End: 03-17-[address] Nehemias Arizmendi Work Phone: [facility] Start: 03-12-2022 End: 03-12-[address] Nehemias Arizmendi Work Phone: [facility] Work Phone: Start: 03-12-2022 End: 03-12-[address] Nehemias Arizmendi Work Phone: [facility] Start: 02-25-2022 Non-patient / Non-visit Dr. Sanaz Arizmendi Work Phone: [facility] Start: 02-25-2022 End: 02-25-[address] Nehemias Arizmendi Work Phone: [facility] Work Phone: Start: 02-25-2022 End: 02-25-[address] Nehemias Arizmendi Work Phone: [facility] Start: 02-12-2022 End: 02-12-[address] Nehemias Arizmendi Work Phone: [facility] Start: 02-11-2022 Non-patient / Non-visit Dr. Sanaz Arizmendi Work Phone: [facility] Start: 02-09-2022 End: 02-09-[address] Nehemias Arizmendi Work Phone: [facility] Start: 02-09-2022 End: 02-09-[address] Nehemias Arizmendi Work Phone: [facility] Start: 02-06-2022 Non-patient / Non-visit Dr. Sanaz Arizmendi Work Phone: [facility] Start: 02-06-2022 Non-patient / Non-visit Dr. Sanaz Arizmendi Work Phone: [facility] Start: 02-06-2022 End: 02-06-[address] Nehemias Arizmendi Work Phone: [facility]Cardiov[facility] Services Start: 02-04-2022 End: 02-04-[address] Nehemias Arizmendi Work Phone: [facility] Work Phone: Start: 02-04-2022 End: 02-04-[address] Nehemias Arizmendi Work Phone: [facility] Start: 01-23-2022 End: 01-23-[address] Nehemias Arizmendi Work Phone: [facility] Start: 01-16-2022 End: 01-16-[address] Nehemias Arizmendi Work Phone: [facility]-Pulmonary Services/Neurology Start: 01-01-2022 End: 01-01-[address] Nehemias Arizmendi Work Phone: [facility] Start: 12-16-2021 Non-patient / Non-visit Dr. Sanaz Arizmendi Work Phone: [facility] Start: 10-17-2021 End: 10-17-[address] Nehemias Arizmendi Work Phone: [facility] Start: 10-03-2021 Non-patient / Non-visit Dr. Sanaz Arizmendi Work Phone: [facility] Start: 10-03-2021 End: 10-03-[address] Nehemias Arizmendi Work Phone: [facility]-Cardiovascula r Services Start: 08-05-2021 End: 08-05-[address] Nehemias Arizmendi Work Phone: [facility] Start: 06-13-[address] Nehemias Arizmendi Work Phone: [facility] Procedures Date Procedure Procedure Detail [...] or Pulmonary Embolism (PE)CRITICAL VALUE CALLED TO [id number] [facility] Alexey Saenz.RESULTS READ BACK BY SAME. Start: [...] Start: 01-14-2025 Evaluation of diagnostic study results [facility] Start: 10-23-2024 Patient discharge [facility] Start: 10-21-2024 Continuous pulse oximetry [facility] Start: 10-21-2024 Dual pressure spontaneous ventilation support [facility] Start: 10-21-2024 Physiotherapy of chest [facility] Start: 10-20-2024 [facility] Start: 10-20-2024 Inhalation therapy procedure [facility] Start: 10-19-2024 End: 10-19-2024 [facility] Start: 10-19-2024 Care regimes management [facility] Start: 10-19-2024 Notification of physician [facility] Start: 10-19-2024 Referral to vascular surgeon [facility] Start: 10-19-2024 Gas panel - Arterial blood [facility] Start: 10-19-2024 Oxygen therapy [facility] Start: 10-19-2024 Assessment of risk of venous thromboembolism [facility] Start: 10-19-2024 Insertion of catheter into peripheral vein [facility] Start: 10-19-2024 End: 10-19-2024 Measuring intake and output [facility] Start: 10-19-2024 Providing care according to standard [facility] Start: 10-19-2024 [facility] Start: 10-19-2024 End: 10-19-2024 Following clinical pathway protocol [facility] Start: 10-18-2024 Admission procedure [facility] Start: 10-18-2024 Hospital admission, emergency, from emergency room, medical nature [facility] Start: 10-18-2024 [facility] Start: 01-05-2023 [facility] Start: 04-15-2022 Patient discharge [facility] Work Phone: Start: 04-15-2022 Anes esoph thyrd larynx trach & lymph neck 1yr ANESTH NECK ORGAN 1YR/> [facility] Work Phone: Start: 04-15-2022 Thyroidectomy total/complete REMOVAL OF THYROID [facility] Work Phone: Start: 04-15-2022 Application of intermittent pneumatic compression device [facility] Work Phone: Start: 04-15-2022 Following clinical pathway protocol [facility] Work Phone: Start: 04-15-2022 Ambulation without limitation [facility] Work Phone: Start: 04-15-2022 Catheterization of vein [facility] Work Phone: Start: 04-15-2022 Incentive spirometry [facility] Work Phone: Start: 04-15-2022 Measuring intake and output [facility] Work Phone: Start: 04-15-2022 Provision of activity privileges [facility] Work Phone: Start: 04-15-2022 Vital signs measurements [facility] Work Phone: Start: 04-15-2022 [facility] Work Phone: Start: 04-15-2022 Admission procedure [facility] Work Phone: Start: 02-25-2022 Following clinical pathway protocol [facility] Work Phone: CTA Heart and Delacruz ry arteries W contrast IV [facility] Work Phone: Folate [Mass/volume] in Serum or Plasma [facility] [place] and lambda lig ht chains [facility] NM Heart Views W str ess and W radionuclide IV [facility] Work Phone: Patient Education ED Pneumonia (Adult) [facility] Work Phone: Patient referral [facility] Work Phone: Thiamine measurement [facility] Thyroid stimulating hormone measurement [facility] Work Phone: Urinalysis complete panel - Urine [facility] US Heart [facility] Work Phone: Vitamin B12 measurement [facility] Payers Date Payer Category Payer Unknown [id number] [facility] 2023 Self-pay [id number] 2023 Unknown [id number] 2023 Private Health Insurance [id number] 2015 Unknown [id number] 1965 Unknown [id number] [id number] Unknown [id number] Unknown [id number] Unknown COMMERCIAL OTHER [id number] Unknown [id number] [id number]2 Unknown [id number] 2.16.840.1.160671.3.579.2.462 Unknown [id number] 2.16.840.1.461308.3.579.2.462 Unknown [id number] 2.16.840.1.070134.3.579.2.462 Unknown [id number] 2.16.840.1.241012.3.579.2.462 Unknown [id number] 2.16.840.1.272336.3.579.2.462 Unknown [id number] 2.16.840.1.089946.3.579.2.462 Unknown [id number] 2.16.840.1.964303.3.579.2.462 Unknown [id number] 2.16.840.1.854293.3.579.2.462 Unknown [id number] 2.16.840.1.687920.3.579.2.462 Unknown [id number] 2.16.840.1.605856.3.579.2.462 Unknown [id number] 2.16.840.1.674942.3.579.2.462 Unknown [id number] 2.16.840.1.390086.3.579.2.462 Unknown [id number] 2.16.840.1.428942.3.579.2.462 Unknown [id number] 2.16.840.1.687889.3.579.2.462 Unknown [id number] 2.16.840.1.906260.3.579.2.462 Unknown [id number] 2.16.840.1.630757.3.579.2.462 Unknown [id number] 2.16.840.1.700599.3.579.2.462 Unknown [id number] 2.16.840.1.281005.3.579.2.462 Unknown [id number] 2.16.840.1.568281.3.579.2.462 Unknown [id number] 2.16.840.1.352265.3.579.2.462 Unknown [id number] 2.16.840.1.159909.3.579.2.462 Unknown [id number] 2.16.840.1.870612.3.579.2.462 Unknown [id number] 2.16.840.1.997887.3.579.2.462 Unknown [id number] 2.16.840.1.895646.3.579.2.462 Unknown [id number] 2.16.840.1.528741.3.579.2.462 Social History Date Type Detail Facility Start: 02-07-2021 End: 01-05-2023 Tobacco smoking status [facility] Unknown if ever smoked [facility] Start: 1965 Sex Assigned At Female W [facility] Start: 01-06-2023 Tobacco smoking status Heavy t obacco smoker (finding) [facility] Start: 01-28-2024 End: 10-20-2024 Tobacco smoking status IDIS Smokes tobacco daily (finding) [facility] Start: 09-05-2024 End: 10-19-2024 Sex Female (finding) [facility] Medical Equipment Procedure Code Equipment Code Equipment Original Text Equipment Identifier Dates Thyroidectomy Plant polysaccha ride haemostatic agent, bioabsorbable ()[id number] 0 FDA Start: 04-15-2022 Thyroidectomy Ligation clip, metallic ( )[id number] FDA Start: 04-15-2022 Thyroidectomy Ligation clip, metallic (35 [id number] FDA Start: 04-15-2022 Goals Date Patient Goal Desired Activity /State Functional Status Date Assessment Result Facility 10-23-2024 Functional status Ambulates;Lars r;Bathroom Privilege [facility] Work Phone: 01-09-2023 Functional Status Room check performed [facility] 01-09-2023 Functional Status [facility] 01-09-2023 Functional Status Assistive Device None A [facility] 01-08-2023 Functional Status [facility] 01-08-2023 Functional Status [facility] 01-08-2023 Functional Status Bed Bath Independent, S etup [facility] 01-06-2023 Functional Status [facility] 01-06-2023 Functional Status Skin moisturiz er, Shampoo cap, CHG bath [facility] 04-15-2022 Functional status Up ad damien [facility] Work Phone: Mental Status Date Assessment Result Facility 10-23-2024 Cognitive function Voice/Name [facility] Work Phone: 10-18-2024 Cognitive function Level Of Cons ciousness Awake;Alert;Appropriate;Follow s Commands [facility] Work Phone: 01-09-2023 Mental Status Orientation Oriented x 4 [facility] 01-09-2023 Mental Status [facility] 01-09-2023 Mental Status [facility] 01-08-2023 Mental Status Orientation Asse ssment Oriented x 4 [facility] 01-08-2023 Mental Status [facility] 01-07-2023 Mental Status [facility] 01-03-2023 Cognitive function Voice/Name [facility] Work Phone: 04-15-2022 Cognitive function Level Of Cons ciousness Awake;Alert;Appropriate [facility] Work Phone: 04-15-2022 Cognitive function Voice/Name [facility] Work Phone: 04-15-2022 Cognitive function Voice/Name [facility] Work Phone: 02-25-2022 Cognitive function Voice/Name [facility] Work Phone: Clinical Notes 01-06-2023 to 10-23-2024 Note Date & Type Note Facility 10-23-2024 Note [facility] 10-19-2024 Evaluation note Diagnosis Onset Date Resolution Acute respiratory insufficiency acute October 18, 2024 11:07pm DVT (deep venous thrombosis) acute October 18, 2024 11:07pm Pulmonary embolism acute October 18, 2024 11:07pm Morbid obesity with BMI of 40.0-44.9, adult inactive October 18, 2024 11:07pm [facility] Work Phone: 1(641) 559-457504-24-2025 Evaluation note* Diagnosis Onset Date Resolution Status Admit Date Acute respiratory insufficiency acut e October 18, 2024 11:07pm DVT (deep venous thrombosis) acute October 18, 2024 11:07pm Pulmonary embolism acute October 18, 2024 11:07pm Morbid obesity with BMI of 40.0-44.9, adult inactive October 18 11:07pm Tachycardia acute January 14 9:45am UTI (urinary tract infection) acute January 14, 2025 9:45am [facility] Work Phone: 1(689) 348-568304-23-2025 Radiology Diagnostic study note [facility] Imaging Services [address] [place] [address] CTA Chest W/WO Contrast MR#: [id number] Acct: [id number] Name: CAITLIN GERMAIN Rep #: [id number] : 1965 F 59 From: Henrik Uriarte MD PCP: Dr. Nehemias Arizmendi MD Status: REG E R Study:CTA Chest W/WO Contrast Date of Exam: 10/18/24 Exam# [id number] Ordering Dr: Kyler Galarza DO PROCEDURE: CTA [...] notified on 10/18/2024 at 2130. Reading Location: [facility] CC: Dr. Kyler Hay DO; Dr. Nehemias Arizmendi MD ~ Leadite Worker: Signed [facility]04-23-2025 Radiology Diagnostic study note [facility] Imaging Services [address] [place], [place] [id number] Chest PA and Lateral MR#: [id number] Acct: [id number] Name: CAITLIN GERMAIN Rep #: [id number] : 1965 F 59 From: Chao Harrison DO PCP: Dr. Nehmeias Arizmendi MD Status: REG E R Study:Chest PA and Lateral Date of Exam: 10/18/24 Exam# [id number] Ordering Dr: Kyler Galarza DO PROCEDURE: CHEST [...] Hay, DO; Dr. Nehemias Arizmendi MD ~ [employer]ite Worker: Signed [facility]08-05-2024 [facility]07-17-2023 Note. MICRO - Microbiology PROCEDURE: Culture Body [...] Locations *1: This test was performed at: [address], [address]- , [facility] ([place])01-09-2023 Hospital Discharge instructions Patient Education 01/09/2023 13:43:01 [...] Slowly return to your usual activities. Take tgra-hzm-lujgwxg and prescription medicines only as told by [...] 03/09/2002 Document Revised: 11/14/2018 Document Reviewed: 11/14/2018 [employer] Patient Education 2020 [employer]over. Follow Up Care 01/06/2023 05:43:33 With:NEHEMIAS ARIZMENDI MD Address: [address] [place] [address] [address] [place] [address] [phone] When:1-2 days Comments:Call to make appointment [facility] 07-15-2023 Note Discharge Instructions Thank you [...] underlying rheumatoid arthritis. Please follow-up with your wiper blender. No need for any further antibiotics Take [...] days Why: Call to make appointment Where: [address] [place] [address] [address] [place] [address] [phone] The Following Activity and Diet Have Been [...] by mouth Once a day Pickup at [facility]/pharmacy #[id number] Changed predniSONE (prednisone 10mg tab (TAPER)) Taper 40-30-20-10 x 3 days each dose by mouth Once a day Duration: 12 Days Take with food/ meal Pickup at [facility]/pharmacy #[id number] Unchanged albuterol (albuterol MDI (90 mcg/ inh) [...] by mouth Once a day Pharmacy Information [facility]/pharmacy #[id number]: [address], [place] [phone] What How Much When Comments Stop Taking [...] wireless accessories such as remote control, or LocalEats devices. Do not reuse a needle, syringe [...] blood pressure, such as diet pills or kkjhw-qey-ecse medicine. What are the possible side effects [...] may report side effects to FDA at 8-942-BHV-4015. What other drugs will affect furosemide? Sometimes [...] drugs may affect furosemide, including prescription and pgkn-oqb-edvycvf medicines, vitamins, and herbal products. Not all [...] to ensure that the information provided by [employer]. ('Multum') is accurate, up-to-date, and complete, but no guarantee is made to that effect. Drug information contained herein may be time sensitive. [employer] information has been compiled for use by healthcare practitioners and consumers in the [place] and therefore [employer] does not warrant that uses outside of the [place] are appropriate, unless specifically indicated otherwise. [employer] drug information does not endorse drugs, diagnose patients or recommend therapy. [employer] drug information isan informational resource designed to [...] effective or appropriate for any given patient. [employer] does not assume any responsibility for any aspect of healthcare administered with the aid of information [employer] provides. The information contained herein is not intended to cover all possible uses, directions, precautions, warnings, drug interactions, allergic reactions, or adverse effects. If you have questions about the drugs you are taking, check with your doctor, nurse or pharmacist. Copyright 0203-8628 [employer]. Version: 18.01. Revision Date: 09/04/2022. prednisone (PRED [...] may report side effects to FDA at 7-916-YPQ-6213. What other drugs will affect prednisone? Sometimes [...] may affect prednisone. This includes prescription and ohub-jbg-ocvrckp medicines, vitamins, and herbal products. Not all [...] to ensure that the information provided by [employer]. ('Multum') is accurate, up-to-date, and complete, but no guarantee is made to that effect. Drug information contained herein may be time sensitive. [employer] information has been compiled for use by healthcare practitioners and consumers in the [place] and therefore [employer] does not warrant that uses outside of the [place] are appropriate, unless specifically indicated otherwise. [employer] drug information does not endorse drugs, diagnose patients or recommend therapy. [employer] drug information isan informational resource designed to [...] effective or appropriate for any given patient. [employer] does not assume any responsibility for any aspect of healthcare administered with the aid of information [employer] provides. The information contained herein is not intended to cover all possible uses, directions, precautions, warnings, drug interactions, allergic reactions, or adverse effects. If you have questions about the drugs you are taking, check with your doctor, nurse or pharmacist. Copyright 2926-1434 [employer]. Version: 10.. Revision Date: 09/22/2018. Education Materials [...] Slowly return to your usual activities. Take wpck-ftt-glxvivy and prescription medicines only as told by [...] Document Reviewed: 11/14/2018 Elsevier Patient Education 2020 [employer] Inc. Additional Information VACCINATE! IT SAVES LIVES! Members of the community who have not yet received the COVID-19 vaccine and would like to receive it can visit one of [facility] vaccine clinics. There are many vaccine clinic locations within the [facility]. For locations and available times, please visit https://gettheshot.coronavirus.[place].gov/. It is important to note that some COVID mobile vaccine clinics are held outdoors and may be canceled in rainy or stormy conditions. To learn more about pediatric vaccinations (ages 5-11), we invite you to visit the [employer] webpage. https://www.EMISPHERE TECHNOLOGIESs.org/pages/6929-Pvovd-Gabretjahbt-Ijaekojxsp-Ejcxn-Dwv stions.htmlTo learn more about the COVID-19 vaccine, we invite you to visit the CDC website for a list of frequently asked questions.https://www.cdc.gov/coronavirus/2019-ncov/vaccines/faq.html [employer] Patient Portal Access Instructions: Stay connected with your healthcare team and access your personal medical information anytime with the [employer] Patient Portal. Please follow the directions below to create your [employer] account: 1.Access the email account you provided upon registration to the hospital/physician office.2.Look for an invitation email from [facility].3.Open the email and access the invitation link: AcceptInvitation to [employer].4.Fill in the required otto to create your account. To access your account, visit [email or web address]. Click the blue button labeled "Access Patient [...] who you will allowto register on the [facility] [facility] Patient Portal for access to your information. You can also access the [facility] on the [employer] nichole. Simply click on "Patient Portal" and then log into your account. If you would like to receive a full copy of your medical records, please contact the [facility] Medical Records Department by calling [phone], Wednesday through Wednesday between 8 a.m. and [...] Call your local pharmacy or go to [email or web address] to find one close to you.3.Make use of household items: Use cat litter or old coffee grounds to dispose medications if other options arenot available. Mix your drugs with these household products, seal them in an airtight container andthrow it into the garbage. Call [facility]: [phone] to be sure your drugs can be [...] aware that I should contact my doctor. Patient/Director Of Outreach Signature: Date/Time: Relationship to Patient: Witness Name/Signature: Date/Time: [id number] Discharge summary Date of Service 01/09/2023 Discharge Diagnosis 1. Acute hypoxic respiratory failure 2. Transudative pleural effusion 3. Pericardial effusion 4. Pleuritic chest pain 5. History of diabetes mellitus 6. History of rheumatoid arthritis. Hospital Course 57-year-old female admitted to Cardiology service on January 06 from [facility] with chief complaint of shortness of breath found to have a pericardial effusion. Past medical history of hypertension, hyperlipidemia, mild nonobstructive CAD, diabetes mellitus type 2, tobacco abuse, RA, pancreatitis. She had been seen at [facility] about 2 days prior to coming back in at that time she was diagnosed with a pneumonia and sent home on antibiotics. She continued to have what seems to be pleuritic chest pain and shortness of breath and for that reason went back and was transferred to [facility] for cardiology evaluation. Her imaging showed [...] process. Benign bilateral adrenal adenomas. CCU nurse [place] was directly informed of the pericardial effusion, [...] underlying rheumatoid arthritis. Please follow-up with your wiper blender. No need for any further antibiotics Continue [...] hours as needed as needed for wheezing. [id number] Milligram by mouth once a day. atorvastatin (atorvastatin 20 mg oral tablet)1 tab(s) by mouth daily at bedtime. DULoxetine (DULoxetine 30 mg oral delayed release capsule)2 cap by mouth daily at bedtime. famotidine (famotidine 20 mg oral tablet)1 tab(s) by mouth once a day. hydroxychloroquine (hydroxychloroquine 200 mg oral tablet)1 tab(s) by mouth two (2) times a day. owupmkqsp099 Milligram by mouth every 6 hours as needed as needed for pain. leflunomide (leflunomide 20 mg oral tablet)1 tab(s) by mouth once a day. czgiurornoxbl614 Microgram by mouth once a day. losartan (losartan 100 mg oral tablet)1 tab(s) by mouth once a day. meclizine (meclizine 25 mg oral tablet)1 tab(s) by mouth three (3) times a day as needed as needed for dizziness. metFORMIN (MetFORMIN (Eqv-Fortamet))1,000 Milligram by mouth two (2) times a day. ubiquinone (Coenzyme Q10)100 Milligram by mouth once a day. Discontinued swscgpqqzec334 Milligram by mouth two (2) times a day for 7 Days. Follow Up Follow Up with NEHEMIAS ARIZMENDI MD When Within 1-2 days Why: Call to make appointment Where: [address] [place] [address] [phone] Follow Up Appointments No qualifying data available. [...] JONATHAN POSEY MD on 01/09/2023 03:15 PM [facility] [id number] Pulmonary Progress note Date of Service 01/09/2023 [...] is elevated. Patient does have rheumatology at [place] that she follows 4. Gentle diuresis Digitally Signed by WINIFRED CUMMINS MD on 01/09/2023 10:10 AM [facility] [id number] Note Date of Service 01/08/2023 Reason for Consultation Medical management, transfer of service Referring Physician Dr. Rivas History of Present Illness Patient is a 57-year-old female admitted to Cardiology service on January 06 from [facility] with chief complaint of shortness of breath [...] process. Benign bilateral adrenal adenomas. CCU nurse [place] was directly informed of the pericardial effusion, [...] effusion Patient presented as a transfer from [facility] under cardiology service for complaint of shortness [...] JUAN C DAO on 01/08/2023 03:10 PM [facility] [id number] Note ORIGINAL EXAMINATION: TWO XRAY VIEWS OF [...] 01/08/2023 1:58:59 PM Ordering Provider: WINIFREDJORDAN FINK [facility]07-14-2023 Note ORIGINAL EXAMINATION: TWO XRAY VIEWS OF [...] Sign Date: 01/08/2023 1:58:59 PM Ordering Provider: [facility]07-14-2023 Pulmonary Progress note Date of [...] WINIFRED CUMMINS MD on 01/08/2023 10:00 AM [facility] [id number] Cardiology Progress note Date of Service 01/08/23 Chief Complaint SOB HPI 57-year-old woman with past medical history of hypertension, hyperlipidemia, mild nonobstructive CAD, type 2 diabetes, active tobacco abuse, history of dizziness, rheumatoid arthritis, and history ofpancreatitis was transferred from [facility] for pericardial effusion. Patient states that she presented to [facility] on Wednesday for complaints of shortness of [...] she was transferred for further work-up to [facility]. Patient states she had a cardiac [...] II, MD PGY-V Cardiovascular Disease Fellow Pager: [phone] Digitally Signed by BONITA RODRIGUEZ MD on 01/08/2023 01:56 PM Digitally Signed by CHRISTIANNE FULLER MD [facility] [id number] Cardiology Progress note Date of Service 01/07/23 Chief Complaint SOB HPI 57-year-old woman with past medical history of hypertension, hyperlipidemia, mild nonobstructive CAD, type 2 diabetes, active tobacco abuse, history of dizziness, rheumatoid arthritis, and history ofpancreatitis was transferred from [facility] for pericardial effusion. Patient states that she presented to [facility] on Wednesday for complaints of shortness of [...] she was transferred for further work-up to [facility]. Patient states she had a cardiac [...] II, MD PGY-V Cardiovascular Disease Fellow Pager: [phone] Digitally Signed by BONITA RODRIGUEZ MD on 01/07/2023 12:13 PM [facility] [id number] Pulmonary Progress note Date of Service 01/07/2023 [...] LIAM CLARK MD on 01/07/2023 01:42 PM [facility] [id number] Note ORIGINAL HISTORY: Effusion COMPARISON: Previous day FINDINGS: There is no drainable fluid collection. Interpreted by: Blanca Gutiérrez MD Preliminary Report By: Blanca Gutiérrez MD Electronically signed By Blanca Gutiérrez MD Dictated Date: 01/07/2023 10:00:13 AM Prelim Date: 01/07/2023 10:01:06 AM Sign Date: 01/07/2023 10:01:06 AM Ordering Provider: [facility]2023 Note ORIGINAL HISTORY: Effusion COMPARISON: Previous day FINDINGS: There is no drainable fluid collection. Interpreted by: Blanca Gutiérrez MD Preliminary Report By: Blanca Gutiérrez MD Electronically signed By Blanca Gutiérrez MD Dictated Date: 01/07/2023 10:00:13 AM Prelim Date: 01/07/2023 10:01:06 AM Sign Date: 01/07/2023 10:01:06 AM Ordering Provider: [facility]2023 Cardiology Progress note Date of Service 01/07/23 Chief Complaint SOB HPI 57-year-old woman with past medical history of hypertension, hyperlipidemia, mild nonobstructive CAD, type 2 diabetes, active tobacco abuse, history of dizziness, rheumatoid arthritis, and history ofpancreatitis was transferred from [facility] for pericardial effusion. Patient states that she presented to [facility] on Wednesday for complaints of shortness of [...] she was transferred for further work-up to [facility]. Patient states she had a cardiac [...] II, MD PGY-V Cardiovascular Disease Fellow Pager: [phone] Digitally Signed by BONITA RODRIGUEZ MD on 01/07/2023 12:13 PM [facility] [id number] Note ORIGINAL EXAMINATION: CT OF THE CHEST [...] 01/07/2023 12:15:42 AM Ordering Provider: WINIFRED PÉREZ [facility] [id number] History and physical note Date of Service 01/06/23 Chief Complaint SOB History of Present Illness 57-year-old woman with past medical history of hypertension, hyperlipidemia, mild nonobstructive CAD, type 2 diabetes, active tobacco abuse, history of dizziness, rheumatoid arthritis, and history ofpancreatitis was transferred from [facility] for pericardial effusion. Patient states that she presented to [facility] on Wednesday for complaints of shortness of [...] she was transferred for further work-up to [facility]. 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: As documented in chart Review of [...] II, MD PGY-V Cardiovascular Disease Fellow Pager: [phone] Problem List/Past Medical History Ongoing Arthritis H/O [...] BONITA RODRIGUEZ MD on 01/06/2023 09:58 AM [facility] [id number] NoteORIGINAL PROCEDURE: ULTRASOUND GUIDED THORACENTESIS CLINICAL STATEMENT: [...] Sign Date: 01/06/2023 3:23:52 PM Ordering Provider: [facility] ([place])01-06-2023 Note ORIGINAL PROCEDURE: ULTRASOUND GUIDED THORACENTESIS CLINICAL [...] Sign Date: 01/06/2023 3:23:52 PM Ordering Provider: [facility]07-12-2023 Note ORIGINAL EXAMINATION: CT OF [...] Sign Date: 01/07/2023 12:15:42 AM Ordering Provider: [facility]07-12-2023 Evaluation + Plan noteExtracted from: [...] II, MD PGY-V Cardiovascular Disease Fellow Pager: [phone] Addendum by RAUL FULLER MD on January [...] Fluid 01/06/23 * pH Body Fluid 01/06/23 [facility] 07-12-2023 Respiratory therapy Hospital Progress note [...] by GÓMEZ Valle on 01/06/2023 01:33 PM [facility] [id number] Note ORIGINAL EXAMINATION: ONE XRAY VIEW OF [...] 01/06/2023 12:20:37 PM Ordering Provider: ROSA LIZ [facility] HospitalVikqjsbb56-07-1130 Note ORIGINAL EXAMINATION: ONE XRAY VIEW OF [...] Sign Date: 01/06/2023 12:15:56 PM [facility] [id number] Pulmonary Consult note Date of Service 01/06/2023 Reason for Consultation Pleural effusions Referring Physician Dr. Rivas History of Present Illness 57-year-old woman with past medical history of hypertension, hyperlipidemia, CAD, type 2 diabetes, active tobacco abuse, history of dizziness, rheumatoid arthritis, and history of pancreatitis was transferred from [facility] for pericardial effusion. Patient states that she presented to [facility] on Wednesday for complaints of shortness of [...] She was transferred for further work-up to [facility]. When I saw her this morning [...] WINIFRED CUMMINS MD on 01/06/2023 12:15 PM [facility] [id number] Note ORIGINAL EXAMINATION: ONE XRAY VIEW OF [...] Sign Date: 01/06/2023 12:20:37 PM Ordering Provider: [facility]07-12-2023 Note ORIGINAL PROCEDURE: ULTRASOUND GUIDED THORACENTESIS [...] Sign Date: 01/06/2023 3:23:52 PM Ordering Provider: [facility]07-12-2023 Note US Procedure Record Summary Primary Physician: CHING GARLAND PA-C Finalized Date/Time: 01/06/23 11:37:34 Pt. Name: CAITLIN GERMAIN/Sex: 1965 Female Med Rec #: [id number] Physician: ARIANA RIVAS MD Financial #: [id number] Pt. Type: I Room/Bed: [facility]/A Admit/Disch: 01/06/23 05:42:07 - Institution: Allergies [...] M Role Performed Primary Surgeon Radiology PA/ Tarper Details Time In 01/06/23 11:18:00 01/06/23 11:17:00 01/06/23 11:20:00 Time Out 01/06/23 11:26:00 01/06/23 11:26:00 01/06/23 11:22:00 Procedure/Preference US Thoracentesis Left US Thoracentesis Left US Thoracentesis Left Card (SN) (SN) (SN) Last Modified By: Skye Adames Lauren M Clark, Lauren M 01/06/23 11:27:00 01/06/23 11:27:00 01/06/23 11:27:00 Entry 4 Case Attendee SURYA Bonner Role Performed Tarper Details Time In 01/06/23 11:23:00 Time Out [...] Data- US Entry 1 Case Information Room [facility] Receiving Case Level None Wound Class None [...] instrumentation, sponges, or sharps). Outcomes Met? Yes Chief Privacy Officer Skye Adames Completing Procedure Plan Last Modified By: Skye Adames 01/06/23 11:21:14 Radiology Lines and Procedures- US Entry 1 Radiology Sedation Case Times Sedation Total Time 0 Radiology - Fluid/Drainage RAD - US Rincon, Guidewires, Cath.... Catheters M-Drain Centesis Miscellaneous Items [...] Signatures Signed By: Skye Adames 01/06/23 11:37 [facility] HospitalKissigtw25-94-1356 Procedure note IR Brief Post Procedure Note Preprocedure Dx: Left Pleural Effusion PERICARDIAL EFFUSION, CHF Post Procedure Dx: Same Procedure: 1. Ultrasound Guided Left Thoracentesis Card Tape Converter Operator: Rosa Liz PA-C [place]: None Anesthesia: Local EBL: Minimal Complications: No immediate complications suspected Status: Stable Findings: 1. 600 mL yellow serous fluid drained from left pleural space. 2. Patient tolerated the procedure well with minimal discomfort. Plan: 1. CXR 2. Fluid sent to lab. Full report to follow. Orders in [employer]. Rosa Liz PA-C Interventional Radiology Dept [id number] Available on SpotRightt Digitally Signed by ROSA LIZ PA-C on 01/06/2023 11:36 AM [id number] History and physical note Date of Service 01/06/23 Chief Complaint SOB History of Present Illness 57-year-old woman with past medical history of hypertension, hyperlipidemia, mild nonobstructive CAD, type 2 diabetes, active tobacco abuse, history of dizziness, rheumatoid arthritis, and history ofpancreatitis was transferred from [facility] for pericardial effusion. Patient states that she presented to [facility] on Wednesday for complaints of shortness of [...] she was transferred for further work-up to [facility]. 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: As documented in chart Review of [...] II, MD PGY-V Cardiovascular Disease Fellow Pager: [phone] Problem List/Past Medical History Ongoing Arthritis H/O [...] BONITA RODRIGUEZ MD on 01/06/2023 09:58 AM [id number] Note ORIGINAL EXAMINATION: ONE XRAY VIEW OF [...] Sign Date: 01/06/2023 12:15:56 PM Ordering Provider: [facility]07-12-2023 Discharge summary Author Wayne Germain [facility] January 06, 2023 12:07am Note Date/Time January 05, 2023 3:28 pm [facility] Medical Records Department [address] [place] [address] Emergency Department Summary 01/05/23 MR#: [id number] Acct: [id number] Name: CAITLIN GERMAIN Rep #:[id number] : 1965 57 From: Wayne Germain DO [...] Patient states he is never had an [place]. She does have diabetes, hypertension, hyperlipidemia. [facility] Medical History Abnormal cardiac CT angiography Back [...] pericardial window. Discussed with Dr. Wallace at [place] because this is where the patient wanted [...] 76.7 H Lymph % (Auto) 10.1 L [place] % (Auto) 10.0 Eos % (Auto) 2.3 [...] your Primary Care Provider. Call [facility] ([phone]) or report to the closest Emergency Room. Call 911 if necessary. 01/06/236 <Electronically signed by Wayne Germain DO> Cosigner Signature (if applicable): CC: Dr. Nehemias Arizmendi MD ~ Signed [facility] Work Phone: evaluation noteNo assessment information available [facility] Work Phone: evaluation note* Diagnosis Onset Date Resolution Status Abnormal electrocardiogram a cute Dyspnea on exertion acute Essential hypertension acute Tachycardia acute [facility] Work Phone: evaluation note* Diagnosis Onset Date Resolution Status Abnormal electrocardiogram a cute Dyspnea on exertion acute Essential hypertension acute Tachycardia acute Left thyroid nodule acute Right thyroid nodule acute Abnormal electrocardiogram a cute Abnormal stress test acute Dyspnea on exertion acute Essential hypertension acute Tachycardia acute Left thyroid nodule acute [facility] Work Phone: evaluation note* Diagnosis Onset Date Resolution Status Abnormal electrocardiogram a cute Dyspnea on exertion acute Essential hypertension acute Tachycardia acute Left thyroid nodule acute Right thyroid nodule acute Abnormal electrocardiogram a cute Abnormal stress test acute Dyspnea on exertion acute Essential hypertension acute Tachycardia acute Left thyroid nodule acute Abnormal electrocardiogram a cute Essential hypertension acute Tachycardia acute [facility] Work Phone: evaluation note* Diagnosis Onset [...] Rheumatoid arthritis acute Right thyroid nodule acute [facility] Work Phone: evaluation note* Diagnosis Onset [...] thyroid nodule acute Left thyroid nodule acute [facility] Work Phone: Evaluation note* Diagnosis Onset [...] nodule resolved S/P total thyroidectomy acut e [facility] Work Phone: Evaluation note* Diagnosis Onset [...] exertion acute Essential hypertension acute Tachycardia acute [facility] Work Phone: Evaluation note* Diagnosis Onset Date Resolution Status Abnormal electrocardiogram a cute Essential hypertension acute Tachycardia acute Rheumatoid arthritis acute Right thyroid nodule acute Left thyroid nodule resolved Left thyroid nodule resolved S/P total thyroidectomy acut e Abnormal stress test acute Current smoker acute Dyspnea on exertion acute Essential hypertension acute Tachycardia acute [facility] Work Phone: Evaluation note* Diagnosis Onset Date Resolution Status S/P total thyroidectomy acut e Abnormal stress test acute Current smoker acute Dyspnea on exertion acute Essential hypertension acute Tachycardia acute [facility] Work Phone: Evaluation note* Diagnosis Onset Date Resolution Status Polyneuropathy acute Hyperglycemia chronic Peripheral vestibulopathy re solved [facility] Work Phone: Evaluation note* Diagnosis Onset Date Resolution Status Polyneuropathy acute Hyperglycemia chronic Peripheral vestibulopathy re solved Abnormal stress test acute Current smoker acute Essential hypertension acute Tachycardia acute [facility] Work Phone: Hospital course Narrative No data available for this section [facility] Hospital Discharge instructions Additional Instructions Take doxycycline and use the inhaler as needed for wheezing and shortness of breath. 7 or you have more difficulty breathing come back to the emergency room.[facility] Work Phone: Hospital Discharge instructions No data available for this section [facility] Progress note No data available for this section [facility] Reason for referral (narrative)No reason for referral information [facility] Work Phone: Chief Complaint and Reason [...] No March 24, 2022 7:39am Power of Revenue Specialist No February 7:39am Advance Directive Response Recorded Date/ Time Advance Directives No February 7:39am Living Will No April 08 10:06am Power of Revenue Specialist No April 08, 2022 10:06am Advance Directive Response Recorded Date/ Time Advance Directives No February 7:39am Living Will No April 15 1:33pm Power of Revenue Specialist No April 15, 2022 1:33pm Advance Directive Response Recorded Date/ Time Advance Directives No February 6:39am Living Will No April 15 12:33pm Power of Revenue Specialist No April 15, 2022 12:33pm Advance Directive Response Recorded Date/ Time Advance Directives No February 7:39am Living Will No January 03, 2023 1 1:25am Power of Revenue Specialist No January 03, 2023 11:25am Advance Directive Response Recorded Date/ Time Advance Directives No February 7:39am Living Will No January 05, 2023 3:04pm Power of Revenue Specialist No January 05 3:04pm Advance Directive Response Recorded Date/ Time Advance Directives No February 6:39am Living Will No January 05, 2023 2:04pm Power of Revenue Specialist No January 05 2:04pm Advance Directive Response Recorded Date/ Time Advance Directives No February 7:39am Advance Directive Response Recorded Date/ Time Do you have a Healthcare Power of Revenue Specialist? No October 18, 2024 7:33pm Advance Directives No February 7:39am Advance Directive Response Recorded Date/ Time Do you have a Healthcare Power of Revenue Specialist? No October 18, 2024 11:10pm Advance Directives [...] Provider, Referring Provider Active Rahel Mosley NP, ATHLETIC TURF WORKER-C Attending Provider Active Team Status: Inactive Member [...] 2025 End: January 14, 2025 Yrn Champion ATHLETIC TURF WORKER, ATHLETIC TURF WORKER-C Attending Provider Active S tart: January 14, 2025 End: January 14, 2025 INFORMATION SOURCE (unrecogn ized section and content) DATE CREATED AUTHOR 01/12/2023 [facility] [place] [facility] DATE CREATED AUTHOR AUTHOR'S ORGANIZ ATION 12/01/2024 [facility] FOR RECORDS PERTAINING TO PATIENTS WHO [...] BE BASED ON THE PRIMARY CLINICAL RECORDS. [employer] provides no warranty or guarantee of the accuracy or completeness of information in this document.
[2025-01-15 01:39] LABS: Free T3 1.9 pg/mL (2.18-3.98)
--- OUTSIDE RECORDS SUMMARY | 2025-01-15 02:14 | XMS RPT_ITS | CCD ---
Author Organization [facility] CliniSyor Care Team Providers Care Engineering Faculty Member Name Role Phone Dr. Nehemias Arizmendi Primary Care Provider [phone] Nehemias Arizmendi Referring Provider Dr. Nehemias Arizmendi Other Provider Dr. Nehemias Olsen Attending Provider Ngoc Ochoa Attending Provider Unavailable Dr. Nehemias Arizmendi Primary Care Provider Dr. Nehemias Arizmendi Referring Provider 1([facility])[phone] Nehemias Olsen Attending Provider Dr. Nehemias Olsen Referring Provider Dr. Nehemias Olsen Other Provider 1([facility])[phone] Amber Krishnan Attending Provider Unavailable Dr. Edgar Jefferson Attending Provider Dimitri BLOW DOWN OPERATOR, BLOW DOWN OPERATOR-C Rahel Attending Provider Dimitri BLOW DOWN OPERATOR, BLOW DOWN OPERATOR-C Rahel Referring Provider Dimitri MANUEL, BLOW DOWN OPERATOR-C Rahel Other Provider 1([facility])[phone] Edgar Jefferson Referring Provider Dr. Edgar Jefferson Other Provider Dr. Nehemias Arizmendi Primary Care Provider 1([facility])[phone] Nehemias Olsen Attending Provider Dr. Nehemias Olsen Referring Provider Dr. Nehemias Olsen Other Provider 1([facility])[phone] Amber Krishnan Attending Provider Unavailable Dr. Nehemias Arizmendi Referring Provider 1([facility])[phone] Edgar Jefferson Attending Provider Dimitri MANUEL, MAR-Camilo Mcginnis Attending Provider Dimitri BLOW DOWN OPERATOR, MAR-Camilo Mcginnis Referring Provider Dimitri MANUEL NP-Camilo [...] Provider Dr. Kyler Hay DO Emergency Provider Formerly [facility], Dr. Justin Admit Provider Unavail able Robles [...] ailable Simón PARKS, Dr. Dan Attending Provider [phone] Thelma Pinedo Attending Provider Charles PARKS, Dr. Booth Referring Provider Robles DO, Dr. Justin Attending Provider Unav ailable Charles PARKS, Dr. Booth Other Provider Rachel HAMMOND, Dr. Ortiz Referring Provider Leobardo Soto Attending Unavailable Abner, Dre Admitting Unavailable Joppdanni, Rde Consulting Unavailable Arizmendi, Nehemias Primary Care Unavailable [...] Primary Care Unavailable Nehemias Arizmendi Attending Unavailable Arizmendi, Nehemias Referring Unavailable Diana Ramos Attending Unavailable Arizmendi, Nehemias Primary Care Unavailable Leobardo Soto Attending Unavailable Dre Levine Consulting Unavailable Dre Levine Admitting Unavailable Arizmendi, Nehemias Primary Care Unavailable Friend, Teo Consulting Unavailable Bharathi Robles Consulting Unavailable Bharathi Robles Admitting Unavailable Leobardo Soto Attending Unavailable Arizmendi, Nehemias Primary Care Unavailable Dre Lilly Consulting Unavailable Sy Gr Consulting Unavailable Diana Ramos Attending Unavailable Arizmendi, Nehemias Primary Care Unavailable Leobardo Soto Referring Unavailable Friend, Teo Attending Unavailable Arizmendi, Nehemias Primary Care Unavailable Bharathi Robles Referring Unavailable Dre Lilly Attending Unavailable Arizmendi, Nehemais Primary Care Unavailable Baljinder Salinas Attending Unavailable Arizmendi, Nehemias Primary Care Unavailable Arizmendi , Dr. Del Cid Attending Provider Ugo HAMMOND, Dr. Del Cid Referring Provider [phone] Ugo HAMMOND, Dr. Del Cid Primary Care Provider [phone] Dr. Diana Ramos MD Attending Provider [facility] Attending Provider Luis HAMMOND, Dr. Johnson Referring Provider Dr. Alex Smith MD Emergency Provider [phone] Allergies Allergy Classification Reported Allergen(s) Allergy Type Date of Onset Reaction(s) Facility (20 sources) Sulfonamides (Antibiotic) Allergy to substance 2 [facility] (2 sources) Sulfamethoxazole / Trimethoprim; Translations: [sulfamethoxazole-tr imethoprim] Drug Allergy [facility] (1 source) Sulfonamides (Antibiotic); Translations: [sulfa drugs] Drug allergy [facility] (1 source) Sulfonamide; Translations: [sulfa drugs] Drug allergy [facility] (1 source) Sulfonamides (Antibiotic) Drug allergy (disorder) 5 [facility] Repository Medications Current Medications Medication Drug [...] 12:00am bp apixaban 5 mg oral tablet (6 sources) Factor Xa Inhibitor Start: 01-14-2025 take [...] 06, 2022 12:00am February 09, 2022 3:13pm Coenzyme Q10 (2 sources) Start: 01-06-2023 take 1 dose by mouth once daily Coenzyme Q10 Dose : 100 mg =, Oral, qDay, 0 Refill(s) Start Date: 01/06/23 Status: Ordered dapagliflozin 10 mg oral tablet (5 sources) Sodium-Glucose Cotransporter 2 Inhibitor Start: 10-18-2024 [...] 27, 2021 12:00am December 16, 2021 1:47pm furosemide 20 mg oral tablet (8 sources) Loop Diuretic Start: 10-18-2024 End: 01-14-2025 take 1 tablet by mouth once daily Furosemide 20 mg tablet Active 20 mg PO DAILY January 14, 2025 12:00am Start: 01-09-2023 furosemide 20 mg oral tablet Dose : 20 mg = 1 tab(s), Oral, qDay, # 30 tab(s), 0 Refill(s), Pharmacy: [facility]/pharmacy #[id number], 160, cm, 01/06/23 6:00:00 EDT, Height Start Date: 01/09/23 Status: Ordered gabapentin 100 mg oral capsule (7 sources) Anti-epileptic Agent Start: 01-28-2024 End: 01-14-2025 take 1 capsule by mouth three times daily Gabapentin 100 mg capsule Active 100 mg PO THREE TIMES A DAY January 14, 2025 12:00am hydroxychloroquine sulfate 200 mg oral tablet (20 [...] mg PO DAILY January 28, 2024 12:00am arthritis Start: 01-01-2022 End: 01-28-2024 Leflunomide (Arava) 10 [...] 27, 2021 12:00am December 16, 2021 1:46pm levothyroxine sodium 0.137 mg oral tablet (20 sources) l-Thyroxine Start: 01-14-2025 take 1 tablet by mouth once daily Levothyroxine 137 mcg tablet Active 137 ug PO DAILY January 14, 2025 12:00am hypothyroidism Start: 01-06-2023 take 1 dose by mouth once barry y levothyroxine Dose : 150 mcg =, Oral, qDay, 0 Refill(s) Start Date: 01/06/23 Status: Ordered Start: 09-28-2022 End: 11-02-2022 take 1 tablet by mouth once daily Levothyroxine 150 mcg tablet Discontinued 150 ug PO DAILY 90 0 September 28, 2022 12:00am November 02, 2022 9:33am Start: 06-23-2022 End: 09-28-2022 take 1 capsule [...] 12:00am metFORMIN hydrochloride 1000 mg oral tablet (14 sources) Biguanide Start: 11-16-2022 take 1 tablet [...] two tablets 1 hour prior to procedure. Tirzepatide (Mounjaro) 2.5 mg/0.5 mL pen injector (1 source) Start: 01-14-2025 Tirzepatide (Mounjaro) 2.5 mg/0.5 mL pen injector Active 2.5 mg SC EVERY WEEK January 14, 2025 12:00am diabetes Tirzepatide (Mounjaro) 7.5 mg/0.5 mL pen injector (1 source) Start: 01-14-2025 Tirzepatide (Mounjaro) 7.5 mg/0.5 mL pen injector Active 7.5 mg SC EVERY WEEK January 14, 2025 12:00am Completed/Discontinued Medications Medication Drug Class(es) Dates Sig (Normalized) Sig (Original) acetaminophen 325 mg / HYDROcodone bitartrate 5 mg oral tablet (20 sources) Opioid Agonist Start: 04-15-2022 End: 05-11-2022 [...] actuat albuterol 0.09 mg/actuat dry powder inhaler (12 sources) beta2-Adrenergic Agonist Start: 01-03-2023 End: 01-28-2024 [...] mg / clavulanate 125 mg oral tablet (4 sources) Penicillin-class Antibacterial Start: 10-23-2024 End: 01-14-2025 [...] 9:00am bismuth subsalicylate 262 mg oral tablet (6 sources) Bismuth Start: 02-08-2024 End: 01-14-2025 take 1 tablet by mouth every twenty-four hours Bismuth Subsalicylate (Soothe (Bismuth Subsalicylate)) 262 mg tablet,chewable Discontinued 1 {tbl} PO EVERY 6 HOURS 56 0 February 08, 2024 12:00am January 14, 2025 9:48am diarrhea do not exceed 16 tabs per 24 hrs cetirizine hydrochloride 10 mg oral tablet (6 sources) Histamine-1 Receptor Antagonist Start: 01-28-2024 End: 01-14-2025 take 1 tablet by mouth once daily as needed Cetirizine 10 mg tablet Discontinued 10 mg PO DAILY as needed for allergies January 28, 2024 12:00am January 14, 2025 9:03pm clonazePAM 0.5 mg oral tablet (20 sources) [...] 2:32pm doxycycline hyclate 100 mg oral capsule (12 sources) Tetracycline-class Drug Start: 01-03-2023 End: 01-28-2024 take 1 capsule by mouth twice daily Doxycycline Hyclate 100 mg capsule Discontinued 100 mg PO TWICE A DAY 14 7 0 January 03, 2023 12:00am January 28, 2024 2:32am empagliflozin 25 mg oral tablet (6 sources) Sodium-Glucose Cotransporter 2 Inhibitor Start: 01-28-2024 End: 10-18-2024 take 1 tablet by mouth once daily Empagliflozin (Jardiance) 25 mg tablet Discontinued 25 mg PO DAILY January 28, 2024 12:00am October 18, 2024 7:35pm dm 12 hr guaiFENesin 1200 mg extended release oral tablet (4 sources) Start: 10-23-2024 End: 01-14-2025 take 1 [...] 2022 2:33pm metroNIDAZOLE 500 mg oral tablet (6 sources) Nitroimidazole Antimicrobial Start: 02-08-2024 End: 10-18-2024 take 1 tablet by mouth three times daily Metronidazole 500 mg tablet Discontinued 500 mg PO THREE TIMES A DAY 42 0 February 08, 2024 12:00am October 18, 2024 7:35pm H. pylori nitrofurantoin, macrocrystals 25 mg / nitrofurantoin, monohydrate 75 mg oral capsule (2 sources) Nitrofuran Antibacterial Start: 01-14-2025 End: 01-14-2025 take 1 capsule by mouth every twelve hours at mealtime Nitrofurantoin Monohyd/M-Cryst (Macrobid) 100 mg capsule Discontinued 100 mg PO Q12H 14 7 0 January 14, 2025 12:00am January 20, 2025 12:00am January 14, 2025 9:06pm must administer with a meal/food pantoprazole 40 mg delayed release oral tablet (12 sources) Proton Pump Inhibitor Start: 02-08-2024 End: [...] 40 mg PO TWICE A DAY 60 30 January 31, 2024 12:00am predniSONE 10 mg oral tablet (20 sources) Start: 01-10-2023 End: 01-22-2023 prednisone 10mg tab (TAPER) Taper 40-30-20-10 x 3 days each dose, Oral, qDay, Take with food/meal, # 30 tab(s), 0 Refill(s), Pharmacy: [facility]/pharmacy #[id number], 160, cm, 01/06/23 6:00:00 EDT, [...] 2021 1:47pm sucralfate 1000 mg oral tablet (6 sources) Aluminum Complex Start: 01-31-2024 End: 10-18-2024 take 1 tablet by mouth 1 hour(s) before mealtime Sucralfate 1 gram Tablet Discontinued 1 g PO ONE HOURS BEFORE MEALS & BED 42 14 0 January 31, 2024 12:00am October 18, 2024 7:35pm tetracycline hydrochloride 500 mg oral capsule (6 sources) Tetracycline-class Antimicrobial Start: 02-08-2024 End: 10-18-2024 take 1 capsule by mouth every six hours Tetracycline 500 mg capsule Discontinued 500 mg PO EVERY 6 HOURS 56 0 February 08, 2024 12:00am October 18, 2024 7:35pm H. pylori ubidecarenone 100 mg oral tablet (12 sources) Start: 11-16-2022 End: 01-28-2024 take 10 tablets by mouth once daily Coenzyme Q10 100 mg tablet Discontinued 100 mg PO DAILY November 16, 2022 12:00am January 28, 2024 2:32am On Hold: Pt has been DC'd Problems Active Problems Problem Classification Problem Date Documented Da te Episodic/Chronic Abdominal pain (9 sources) Abdominal pain; Translations: [Unspecified abdominal pain] [...] Coronary atherosclerosis; Translations: [Atherosclerotic heart disease of [place] coronary artery with other forms of angina pectoris] Chronic Diabetes mellitus with complications (1 source) Type 2 diabetes mellitus with diabetic neuropathy, unspecified; Translations: [Type 2 diabetes mellitus with diabetic neuropathy, unspecified] Onset: 5 Chronic Diabetes mellitus without complication (2 sources) Type 2 diabetes mellitus without complication; Translations: [Type 2 diabetes mellitus without complications] Onset: 3 Chronic Diabetes mellitus without complication (19 sources) Hyperglycemia; Translations: [Hyperglycemia, unspecified] 09-16-2022 Episodic Diseases of white blood cells (2 sources) Leukopenia; Translations: [Decreased white blood cell count, unspecified] 01-14-2025 Chronic Disorders of lipid metabolism (20 sources) Mixed hyperlipidemia; Translations: [Mixed hyperlipidemia] 03-24-2022 Chronic Essential hypertension (20 sources) Hypertensive disorder; Translations: [Essential (primary) hypertension] Chronic Fluid and electrolyte disorders (3 sources) Lactic acidosis; Translations: [Lactic acidosis] 01-14-2025 Episodic Hypertension with complications and secondary hypertension (1 source) Hypertensive heart failure; Translations: [Hypertensive heart disease with heart failure] Chronic Nonspecific chest pain (11 sources) Chest pain; Translations: [Chest pain, unspecified] 01-03-2023 Episodic Osteoarthritis (2 sources) Arthritis 03-11-2018 Chronic Other acquired deformities (20 sources) Kyphosis deformity of spine; Translations: [Unspecified kyphosis, site unspecified] 01-27-2021 Chronic Other aftercare (2 sources) Long-term current use of anticoagulant; 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] 01-14-2025 Episodic Other and ill-defined cerebrovascular disease (14 sources) Cerebrovascular disease; Translations: [Cerebrovascular disease, unspecified] 09-16-2022 Chronic Other circulatory disease (20 sources) Carotid bruit; Translations: [Other specified symptoms and signs involving the circulatory and respiratory systems] 01-27-2021 Episodic Other circulatory disease (4 sources) Low blood pressure; Translations: [Hypotension, unspecified] 01-14-2025 Episodic Other diseases of kidney and ureters (6 sources) Cyst of kidney; Translations: [Cyst of kidney, acquired] 02-08-2024 Episodic Other endocrine disorders (6 sources) Adrenal mass; Translations: [Disorder of adrenal gland, unspecified] 02-08-2024 Chronic Other endocrine disorders (1 source) Disorder of adrenal gland, unspecified; Translations: [Disorder of adrenal gland, unspecified] Onset: 4 Chronic Other lower respiratory disease (20 sources) Dyspnea on exertion; Translations: [Other forms of dyspnea] 01-01-2022 Episodic Other lower respiratory disease (20 sources) Other forms of dyspnea; Translations: [Other respiratory abnormalities] Episodic Other lower respiratory disease (10 sources) Respiratory insufficiency; Translations: [Other abnormalities of breathing] 10-19-2024 Episodic Other lower respiratory disease (1 source) Hypoxemia; Translations: [Hypoxemia] Onset: 5 Episodic Other lower respiratory disease (1 source) Other abnormalities of breathing; Translations: [Other abnormalities of breathing] Onset: 5 Episodic Other lower respiratory disease (2 sources) Hypoxia; Translations: [Hypoxemia] 01-14-2025 Episodic Other nervous system disorders (14 sources) Polyneuropathy; Translations: [Polyneuropathy, unspecified] 09-16-2022 Chronic Other nervous system disorders (5 sources) Polyneuropathy, unspecified; Translations: [Unspecified hereditary and idiopathic peripheral neuropathy] 09-16-2022 Chronic Other nutritional; endocrine; and metabolic disorders (8 sources) Body mass index 40+ - severely [...] [BMI] 40.0-44.9, adult] Onset: 5 Chronic Other nutritional; endocrine; and metabolic disorders (2 sources) Body mass index 30+ - obesity; Translations: [Obesity, unspecified] 01-14-2025 Chronic Other nutritional; endocrine; and metabolic disorders (2 sources) H/O: diabetes mellitus; Translations: [Personal history of other endocrine, nutritional and metabolic disease] 01-14-2025 Episodic Other screening for suspected conditions (not mental disorders or infectious disease) (20 sources) Electrocardiogram abnormal; Translations: [Abnormal electrocardiogram [ECG] [EKG]] Episodic Pancreatic disorders (not diabetes) (1 source) Chronic pancreatitis; Translations: [Other chronic pancreatitis] Chronic Pancreatic disorders (not diabetes) (7 sources) Acute pancreatitis; Translations: [Acute pancreatitis without necrosis or infection, unspecified] Onset: 02-08-2024 Episodic Luisa-; endo-; and myocarditis; cardiomyopathy (except that caused by tuberculosis or sexually transmitted disease) (2 sources) Pericardial effusion - noninflammatory; Translations: [Other pericardial effusion (noninflammatory)] Onset: 3 Episodic Phlebitis; thrombophlebitis and thromboembolism (12 sources) Deep venous thrombosis; Translations: [Acute embolism and thrombosis of unspecified deep veins of unspecified lower extremity] Onset: 5 10-19-2024 Episodic Comment on above: LEG IN THE PAST Pleurisy; pneumothorax; pulmonary collapse (2 sources) Pleural effusion; Translations: [Pleural effusion, not elsewhere classified] Onset: 3 Episodic Pneumonia (except that caused by tuberculosis or sexually transmitted disease) (13 sources) Community acquired pneumonia; Translations: [Pneumonia, unspecified organism] 01-03-2023 Episodic Pulmonary heart disease (10 sources) Pulmonary embolism; Translations: [Other pulmonary embolism without acute cor pulmonale] Onset: 5 10-19-2024 Episodic Regional enteritis and ulcerative colitis (6 sources) Crohn's disease; Translations: [Crohn's disease, unspecified, [...] 5 Chronic Comment on above: ON MEDS Septicemia (except in labor) (2 sources) Sepsis; Translations: [Sepsis, unspecified organism] 01-14-2025 Episodic Substance-related disorders (20 sources) Smoker; Translations: [Nicotine dependence, unspecified, uncomplicated] Chronic Syncope (20 sources) Near syncope; Translations: [Syncope and collapse] 03-24-2022 Episodic Thyroid disorders (20 sources) Thyroid nodule; Translations: [Nontoxic single thyroid nodule] Chronic Comment on above: Addendum a chest x-r ay was obtained November 27, 2020 at [facility]. There was felt to be an air-fluid level on the medial right heart border. [place] possibly the hiatal hernia. 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 Suggest CT of the thorax for further evaluation.This was the reason the patient got the chest CT scan which then identified the thyroid findings.Edgar Jefferson M.D., F.A.C.S. Urinary tract infections (10 sources) Urinary tract infectious disease; Translations: [Urinary [...] Test Name Value Interpretation Reference Range Facility Absolute lymphocyte countOrd ered By: Alex Smith on 01-14-2025 Lymphocytes Auto (Unsp spec) [#/Vol] 0.47 10*3/uL Low 0.83-4.51 [facility] Absolute neutrophil countOrd ered By: Alex Smith on 01-14-2025 Neutrophils (Bld) [#/Vol] 2.4 10*3/uL 2.0-7.7 [facility] Activated partial thrombopla stin time (aPTT) in platelet poor plasma by coagulation aOrdered By: Alex Smith on 01-14-2025 aPTT Coag (PPP) [Time] 25.0 s 24.1-36.2 [facility] Anion gap in Serum or Plasma Ordered By: Alex Smith on 01-14-2025 Anion gap [Moles/Vol] 18 mmol/L High 5-15 [facility] Assessment of wrist artery p atency prior to arterial punctureOrdered By: Alex Smith on 01-14-2025 Arterial patency Wrist artery --pre arterial puncture Positive [facility] BUN/creatinine ratioOrdered By: Alex Smith on 01-14-2025 Urea nitrogen/Creatinine [Mass ratio] 19.5 mg/mg 10-20 [facility] Beta-hydroxybutyrateOrdered By: Bharathi Saldana on 01-14-2025 Beta hydroxybutyrate [Mass/Vol] 0.7 mmol/L High 0.0-0.3 [facility] Bilirubin Test strip Ql (U)O rdered By: Alex Smith on 01-14-2025 Bilirubin Ql (U) Negative Negative [facility] Bilirubin, totalOrdered By: Alex Smith on 01-14-2025 Bilirubin [Mass/Vol] 0.54 mg/dL 0.00-1.30 [facility] Blood band neutrophil count as percentage of total leukocytesOrdered By: Alex Smith on 01-14-2025 Band form neutrophils/100 WBC (Bld) 16 % High 0-5 [facility] Blood base excess determinat ionOrdered By: Alex Smith on 01-14-2025 Base excess Calc (BldV) [Moles/Vol] -5 mmol/L Low -2-2 [facility] Blood bicarbonate measuremen tOrdered By: Alex Smith on 01-14-2025 HCO3 (Bld) [Moles/Vol] 19.7 mmol/L Low 22-26 [facility] [place] Blood lymphocytes/100 leukoc ytesOrdered By: Alex Smith on 01-14-2025 Lymphocytes/100 WBC (Bld) 15 % Low 19-41 [facility] Blood metamyelocytes/100 nunu kocytesOrdered By: Alex Smith on 01-14-2025 Metamyelocytes/100 WBC (Bld) 6 % High 0-1 [facility] Blood segmented neutrophils/ 100 leukocytesOrdered By: Alex Smith on 01-14-2025 Segmented neutrophils/100 WBC (Bld) 63 % 47-70 [facility] Carbon dioxide, total [Moles /volume] in Central venous bloodOrdered By: Alex Smith on 01-14-2025 CO2 [Moles/Vol] 16.5 mmol/L Low 21.0-32.0 [facility] Chloride assayOrdered By: Ray Smith on 01-14-2025 Chloride [Moles/Vol] 101 mmol/L 98-108 [facility] Erythrocyte distribution wid th ratioOrdered By: Alex Smith on 01-14-2025 Erythrocyte distribution width (RBC) [Ratio] 15.1 % High 11.6-14.6 [facility] Erythrocyte distribution wid th standard deviationOrdered By: Alex Smith on 01-14-2025 Erythrocyte distribution width (RBC) [Ratio] 45.7 fl High 35.1-43.9 [facility] Free Z1Adiydty By: Bharathi jeffries on 01-14-2025 Free T3 [Mass/Vol] 1.9 pg/mL Low 2.18-3.98 [facility] Glomerular filtration rate ( GFR) estimation/1.73 sq m using serum, plasma, or whole bOrdered By: Alex Smith on 01-14-2025 GFR/1.73 sq M.predicted among non-blacks MDRD (S/P/Bld) [Vol rate/Area] 97 mL/min/{1.73_m2} >60 [facility] Comment on above: mL/min/1.73m2 CKD-EP I Creatinine Equation (2020) Hematocrit Auto (Bld) [Volum e fraction]Ordered By: Alex Smith on 01-14-2025 Hematocrit (Bld) [Volume fraction] 43.1 % 37-47 [facility] Hemoglobin measurementOrdere d By: Alex Smith on 01-14-2025 Hemoglobin (Bld) [Mass/Vol] 14.7 g/dL 12.0-15.0 [facility] International normalized rat io (INR) calculationOrdered By: Alex Smith on 01-14-2025 INR Coag (Bld) [Relative time] 1.1 {INR} [facility] Ketones Test strip Ql (U)Ord ered By: Alex Smith on 01-14-2025 Ketones Ql (U) 5 mg/dl High Negative [facility] Laboratory - Chemistry and C hemistry - challengeOrdered By: Alex Smith on 01-14-2025 AST [Catalytic activity/Vol] 19 U/L <32 [facility] Lactic acid measurementOrder ed By: Alex Smith on 01-14-2025 Lactate [Moles/Vol] 1.5 mmol/L 0.0-2.0 [facility] MCV (mean corpuscular volume ) determinationOrdered By: Alex Smith on 01-14-2025 MCV (RBC) [Entitic vol] 83.2 fL 81-99 [facility] Mean corpuscular hemoglobin (MCH) determinationOrdered By: Alex Smith on 01-14-2025 MCH (RBC) [Entitic mass] 28.4 pg 27.0-32.0 [facility] Mean corpuscular hemoglobin concentration (MCHC) determinationOrdered By: Alex Smith on 01-14-2025 MCHC (RBC) [Mass/Vol] 34.1 g/dL 32-36 [facility] Mean platelet volume determi nationOrdered By: Alex Smith on 01-14-2025 Platelet mean volume (Bld) [Entitic vol] 9.9 fL 6.2-12.0 [facility] Measurement, pHOrdered By: Naima Smith on 01-14-2025 pH (Unsp spec) 7.44 [pH] 7.35-7.45 [facility] Microscopic analysis of urin e for red blood cells (RBC)Ordered By: Alex Smith on 01-14-2025 Microscopic analysis of urine for red blood cells (RBC) 5-10 SEEN /hpf 0-5 [facility] Mucus LM Ql (Urine sed)Order ed By: Alex Smith on 01-14-2025 Mucus Ql (Urine sed) 0 SEEN /hpf [facility] Natriuretic peptide.B prohor jesi N-Terminal [Mass/volume] in Serum or PlasmaOrdered By: Alex Smith on 01-14-2025 Natriuretic peptide.B prohormone N-Terminal [Mass/Vol] 265 pg/mL <900 [facility] Comment on above: Heart Failure Unlike ly: < 300 pg/mLHeart Failure Likely< 50 Years: > 450 pg/mL50-75 Years: > 900 pg/mL>75 Years: > 1800 pg/mL Nitrite Test strip Ql (U)Ord ered By: Alex Smith on 01-14-2025 Nitrite Ql (U) Negative Negative [facility] No Panel InformationOrdered By: Alex Smith on 01-14-2025 Blood Gas Sample Site R Radial [facility] Blood Gas Specimen Type ART [facility] Blood Gas Vent Mode Not entered [facility] Oxygen Delivery Device Cannula [facility] Platelet countOrdered By: Ray Smith on 01-14-2025 Platelets (Bld) [#/Vol] 156 10*3/uL 150-450 [facility] Platelet estimateOrdered By: Alex Smith on 01-14-2025 Platelets LM Ql (Bld) ADEQUATE ADEQ [facility] Potassium measurement (mass/ volume)Ordered By: Alex Smith on 01-14-2025 Potassium (Unsp spec) [Mass/Vol] 3.9 mmol/L 3.3-5.1 [facility] Protein Test strip Ql (U)Ord ered By: Alex Smith on 01-14-2025 Protein Ql (U) 30 mg/dl High Negative [facility] Prothrombin timeOrdered By: Alex Smith on 01-14-2025 PT Coag (PPP) [Time] 14.0 s 11.7-14.9 [facility] RBC Auto (Bld) [#/Vol]Ordere d By: Alex Smith on 01-14-2025 RBC (Bld) [#/Vol] 5.18 10*6/uL 4.2-5.4 [facility] Serum creatinine measurement (mass/volume)Ordered By: Alex Smith on 01-14-2025 Creatinine [Mass/Vol] 0.71 mg/dL 0.70-1.20 [facility] Serum globulin measurementOr dered By: Alex Smith on 01-14-2025 Globulin (S) [Mass/Vol] 3.5 g/dL 2.2-4.2 [facility] Serum glucose measurement (m ass/volume)Ordered By: Alex Smith on 01-14-2025 Glucose [Mass/Vol] 252 mg/dL High 70-99 [facility] Serum or plasma alanine smith otransferase (ALT) measurementOrdered By: Alex Smith on 01-14-2025 ALT [Catalytic activity/Vol] 16 U/L <35 [facility] Serum or plasma albumin jasiel urement (mass/volume)Ordered By: Alex Smith on 01-14-2025 Albumin [Mass/Vol] 4.1 g/dL 3.4-4.8 [facility] Serum or plasma albumin/glob ulin mass ratioOrdered By: Alex Smith on 01-14-2025 Albumin/Globulin [Mass ratio] 1.1 {ratio} 0.9-2.4 [facility] Serum or plasma alkaline quintin sphatase measurementOrdered By: Alex Smith on 01-14-2025 ALP [Catalytic activity/Vol] 100 U/L 35-104 [facility] Serum or plasma calcium jasiel urement (mass/volume)Ordered By: Alex Smith on 01-14-2025 Calcium [Mass/Vol] 9.6 mg/dL 7.6-11.0 [facility] Serum or plasma urea nitroge n measurement (mass/volume)Ordered By: Alex Smith on 01-14-2025 Urea nitrogen [Mass/Vol] 14 mg/dL 4-19 [facility] Sodium levelOrdered By: Alex Smith on 01-14-2025 Sodium [Moles/Vol] 136 mmol/L 133-145 [facility] Squamous epithelial cells de tection in urine sediment by light microscopyOrdered By: Alex Smith on 01-14-2025 Epithelial cells.squamous LM Ql (Urine sed) 0-5 SEEN /hpf 5-10 [facility] T4 freeOrdered By: Bharathi jeffries on 01-14-2025 Free T4 [Mass/Vol] 1.70 ng/dL High 0.76-1.46 [facility] TSH DL <= 0.005 mIU/L QnOrde red By: Bharathi Saldana on 01-14-2025 TSH Qn 0.134 uIU/mL Low 0.300-4.20 0 [facility] Total carbon dioxide measure mentOrdered By: Alex Smith on 01-14-2025 CO2 [Moles/Vol] 21 mmol/L [facility] Total cell countOrdered By: Alex Smith on 01-14-2025 Cells counted [employer] (Bld/Tiss) [#] 100 MANUAL DIFF [facility] Total proteinOrdered By: Paddy Smith on 01-14-2025 Protein [Mass/Vol] 7.6 g/dL 5.9-8.4 [facility] Troponin T.cardiac [Mass/vol ume] in Serum or Plasma by High sensitivity methodOrdered By: Alex Smith on 01-14-2025 Troponin T.cardiac High sensitivity method [Mass/Vol] 253 ng/L High <14 [facility] Comment on above: Critical Result(s) C alled at 2333: by: NBURNS TO MMARTIAN Results read back by same. Troponin T.cardiac High sensitivity method [Mass/Vol] 192 ng/L High <14 [facility] Comment on above: Critical Result(s) C alled at: 01-14-25 21:22 Yee Soni by: Chanelle canotr Results read back by same. Troponin T.cardiac High sensitivity method [Mass/Vol] 18 ng/L High <14 [facility] Comment on above: Delta: 9 on 10/18/24 -5 Urine Legionella pneumophila antigen detectionOrdered By: Bharathi Saldana on 01-14-2025 L. pneumophila Ag Ql (U) [facility] Urine clarityOrdered By: Paddy Smith on 01-14-2025 Clarity (U) Clear Clear [facility] Urine color determinationOrd ered By: Alex Smith on 01-14-2025 Color (U) Yellow Yellow [facility] Urine glucose detectionOrder ed By: Alex Smith on 01-14-2025 Glucose Ql (U) 1000 mg/dl High Normal [facility] Urine leukocyte esterase det ection by dipstickOrdered By: Alex Smith on 01-14-2025 Leukocyte esterase Test strip Ql (U) Negative Negative [facility] Urine pHOrdered By: Alex peters on 01-14-2025 pH (U) 5.0 [pH] 5.0 - 8.0 [facility] Urine sediment bacteria coun t by microscopy (number/high power field)Ordered By: Alex Smith on 01-14-2025 Bacteria LM.HPF (Urine sed) [#/Area] RARE /hpf None Seen [facility] Urine sediment renal epithel ial cell count by microscopy (number/high power field)Ordered By: Alex Smith on 01-14-2025 Epithelial cells.renal LM.HPF (Urine sed) [#/Area] 0 /[HPF] 0-5 [facility] Urine specific gravity measu rementOrdered By: Alex Smith on 01-14-2025 Specific gravity (U) [Rel density] 1.015 1.002-1.03 0 [facility] Urine urobilinogen measureme ntOrdered By: Alex Smith on 01-14-2025 Urobilinogen Ql (U) Normal mg/dl Normal [facility] White blood cell (WBC) count Ordered By: Alex Smith on 01-14-2025 WBC (Bld) [#/Vol] 3.1 10*3/uL Low 4.4-11.0 [facility] White blood cell countOrdere d By: Alex Smith on 01-14-2025 White blood cell count 10-25 SEEN /hpf 0-5 [facility] Anion gap in Serum or Plasma Ordered By: Nehemias Arizmendi on 11-27-2024 Anion gap [Moles/Vol] 15 mmol/L - [facility] BUN/creatinine ratioOrdered By: Nehemias Arizmendi on 11-27-2024 Urea nitrogen/Creatinine [Mass ratio] 24.2 mg/mg High 04-16 [facility] Calculated very low density lipoprotein (VLDL) cholesterol measurementOrdered By: Nehemias Arizmendi on 11-27-2024 Calculated very low density lipoprotein (VLDL) cholesterol measurement 33 mg/dL 40 [facility] Comprehensive Metabolic Prof ilon 11-27-2024 ALK PHOS 106 U/L High 35-104 [facility] Comment on above: Performed By: #### L 501.30413, L501.9985, L506.0400, L502.0250, L500.4050, L500.4100, L501.9520 ####[facility] [address] [place], [address] BUN/CRE 24.2 RATIO High 04-16 [facility] Comment on above: Performed By: #### L 501.02714, L501.9985, L506.0400, L502.0250, L500.4050, L500.4100, L501.9520 ####[facility] [address] [place], [address] GAP 15 Normal - [facility] Comment on above: Performed By: #### L 501.02414, L501.9985, L506.0400, L502.0250, L500.4050, L500.4100, L501.9520 ####[facility] [address] [place], [address] Potassium [Moles/Vol] 3.8 mmol/L Normal 3.3-5.1 [facility] Comment on above: Performed By: #### L 501.71955, L501.9985, L506.0400, L502.0250, L500.4050, L500.4100, L501.9520 ####[facility] [address] [place], [address] T PROT 8.3 g/dL Normal 5.9-8.4 [facility] Comment on above: Performed By: #### L 501.03790, L501.9985, L506.0400, L502.0250, L500.4050, L500.4100, L501.9520 ####[facility] [address] [place], [address] Comprehensive Metabolic Prof ilOrdered By: Nehemias Arizmendi on 11-27-2024 Albumin [Mass/Vol] 4.3 g/dL 3.4-4.8 [facility] Comment on above: Performed By: #### L 501.67490, L501.9985, L506.0400, L502.0250, L500.4050, L500.4100, L501.9520 ####[facility] [address] [place], [address] Albumin/Globulin [Mass ratio] 1.1 {ratio} 0.9-2.4 [facility] Comment on above: Performed By: #### L 501.84415, L501.9985, L506.0400, L502.0250, L500.4050, L500.4100, L501.9520 ####[facility] [address] [place], [address] ALT [Catalytic activity/Vol] 11 U/L <35 [facility] Comment on above: Performed By: #### L 501.90856, L501.9985, L506.0400, L502.0250, L500.4050, L500.4100, L501.9520 ####[facility] [address] [place], [address] AST [Catalytic activity/Vol] 18 U/L <32 [facility] Comment on above: Performed By: #### L 501.69526, L501.9985, L506.0400, L502.0250, L500.4050, L500.4100, L501.9520 ####[facility] [address] [place], [address] Bilirubin [Mass/Vol] 0.44 mg/dL 0.00-1.30 [facility] Comment on above: Performed By: #### L 501.95908, L501.9985, L506.0400, L502.0250, L500.4050, L500.4100, L501.9520 ####[facility] [address] [place], [address] Calcium [Mass/Vol] 9.9 mg/dL 7.6-11.0 [facility] Comment on above: Performed By: #### L 501.68964, L501.9985, L506.0400, L502.0250, L500.4050, L500.4100, L501.9520 ####[facility] [address] [place], [address] Chloride [Moles/Vol] 103 mmol/L 98-108 [facility] Comment on above: Performed By: #### L 501.53626, L501.9985, L506.0400, L502.0250, L500.4050, L500.4100, L501.9520 ####[facility] [address] [place], [address] CO2 [Moles/Vol] 23.8 mmol/L 21.0-32.0 [facility] Comment on above: Performed By: #### L 501.15120, L501.9985, L506.0400, L502.0250, L500.4050, L500.4100, L501.9520 ####[facility] [address] [place], [address] Creatinine [Mass/Vol] 0.65 mg/dL Low 0.70-1.20 [facility] Comment on above: Performed By: #### L 501.84890, L501.9985, L506.0400, L502.0250, L500.4050, L500.4100, L501.9520 ####[facility] [address] [place], [address] GFR/1.73 sq M.predicted among non-blacks MDRD (S/P/Bld) [Vol rate/Area] 100 mL/min/{1.73_m2} >60 [facility] Comment on above: Result Comment: mL/m in/1.73m2 CKD-EPI Creatinine Equation (2020) Performed By: #### L 501.24321, L501.9985, L506.0400, L502.0250, L500.4050, L500.4100, L501.9520 ####[facility] [address] [place], [address] mL/min/1.73m2 CKD-EP I Creatinine Equation (2020) Globulin (S) [Mass/Vol] 4.0 g/dL 2.2-4.2 [facility] Comment on above: Performed By: #### L 501.78404, L501.9985, L506.0400, L502.0250, L500.4050, L500.4100, L501.9520 ####[facility] [address] [place], [address] Glucose [Mass/Vol] 177 mg/dL High 70-99 [facility] Comment on above: Performed By: #### L 501.92119, L501.9985, L506.0400, L502.0250, L500.4050, L500.4100, L501.9520 ####[facility] [address] [place], [place], [id number] Sodium [Moles/Vol] 141 mmol/L 133-145 [facility] Comment on above: Performed By: #### L 501.44785, L501.9985, L506.0400, L502.0250, L500.4050, L500.4100, L501.9520 ####[facility] [address] [place], [address] Urea nitrogen [Mass/Vol] 16 mg/dL 4-19 [facility] Comment on above: Performed By: #### L 501.55793, L501.9985, L506.0400, L502.0250, L500.4050, L500.4100, L501.9520 ####[facility] [address] [place], [place], [id number] Free F3Ngfjcaj By: Nehemias petty on 11-27-2024 Free T3 [Mass/Vol] 2.9 pg/mL 2.18-3.98 [facility] Comment on above: Performed By: #### L 501.02327, L501.9985, L506.0400, L502.0250, L500.4050, L500.4100, L501.9520 ####[facility] [address] [place], [place], [id number] Hemoglobin A1con 11-27-2024 HbA1c (Bld) [Mass fraction] 8.6 % High <=5.6 [facility] Comment on above: Result Comment: Norm al < 5.7 % Prediabetic 5.7 - 6.4 % Diabetic >or= 6.5 % Please note range changes. Performed By: #### L 501.54171, L501.9985, L506.0400, L502.0250, L500.4050, L500.4100, L501.9520 ####[facility] [address] [place], [place], [id number] Hemoglobin A1c percentageOrd ered By: Nehemias Arizmendi on 11-27-2024 HbA1c (Bld) [Mass fraction] 8.6 % High <5.7 [facility] Comment on above: Normal < 5.7 % Predi abetic 5.7 - 6.4 % Diabetic >or= 6.5 % Please note range changes. Lipid Profileon 11-27-2024 CHOL:HDL 2.38 Normal [facility] Comment on above: Performed By: #### L 501.86847, L501.9985, L506.0400, L502.0250, L500.4050, L500.4100, L501.9520 ####[facility] [address] [place], [place], [id number] Cholesterol in VLDL [Mass/Vol] 33 mg/dL Normal 5-40 [facility] Comment on above: Performed By: #### L 501.60807, L501.9985, L506.0400, L502.0250, L500.4050, L500.4100, L501.9520 ####[facility] [address] [place], [place], [id number] Lipid ProfileOrdered By: Norma Arizmendi on 11-27-2024 Cholesterol [Mass/Vol] 155 mg/dL <201 [facility] Comment on above: Result Comment: Chol esterol level, Desirable <200 mg/dLBorderline high cholesterol 200-239 mg/dLHigh cholesterol >=240 mg/dLRecommendations of the NCEP Adult Treatment Panel for thefollowing risk-cutoff thresholds for the [place] Americanpopulation. Performed By: #### L 501.19859, L501.9985, L506.0400, L502.0250, L500.4050, L500.4100, L501.9520 ####[facility] [address] [place], [address] Cholesterol level, D esirable <200 mg/dLBorderline high cholesterol 200-239 mg/dLHigh cholesterol >=240 mg/dLRecommendations of the NCEP Adult Treatment Panel for the following risk-cutoff thresholds for the [place] population. Cholesterol in HDL [Mass/Vol] 65 mg/dL >40 [facility] Comment on above: Result Comment: Adrienne onal Cholesterol Education Program (NCEP) guidelines:<40 mg/dL: Low HDL-cholesterol (major risk factor for CHD)>= 60 mg/dL: High HDL-cholesterol (negative risk factor forCHD)HDL-cholesterol is affected by a number of factors, e.g.smoking, exercise, hormones, sex and age. Performed By: #### L 501.24780, L501.9985, L506.0400, L502.0250, L500.4050, L500.4100, L501.9520 ####[facility] [address] [place], [place], [phone] National Cholesterol Education Program (NCEP) guidelines:<40 mg/dL: Low HDL-cholesterol (major risk factor for CHD)>= 60 mg/dL: High HDL-cholesterol (negative risk factor for CHD)HDL-cholesterol is affected by a number of factors, e.g. smoking, exercise, hormones, sex and age. Cholesterol in LDL [Mass/Vol] 57 mg/dL [facility] Comment on above: Result Comment: Bord ijkzuv=298-905 mg/dL Higher Vkuq=942 mg/dL or greater Performed By: #### L 501.58503, L501.9985, L506.0400, L502.0250, L500.4050, L500.4100, L501.9520 ####[facility] [address] [place], [place], [id number] Ojllrwmoos=199-834 m g/dL & Higher Tpru=822 mg/dL or greater Triglyceride [Mass/Vol] 164 mg/dL <199 [facility] Comment on above: Result Comment: The drugs N-Acetylcysteine and Metamizole may falselydepress this assay.Normal range: <150 mg/dLBorderline High: 150-199 mg/dLHigh: 200-499 mg/dLVery High: >500 mg/dL Performed By: #### L 501.37091, L501.9985, L506.0400, L502.0250, L500.4050, L500.4100, L501.9520 ####[facility] [address] [place], [place], [phone] The drugs N-Acetylcy steine and Metamizole may falsely depress this assay. Normal range: <150 mg/dLBorderline High: 150-199 mg/dLHigh: 200-499 mg/dLVery High: >500 mg/dL Microalb:Creat Ratio,Random URon 11-27-2024 Creatinine [Mass/Vol] 24.50 mg/dL Low 28.00- 217. 00 [facility] Comment on above: Performed By: #### L 501.32464, L501.9985, L506.0400, L502.0250, L500.4050, L500.4100, L501.9520 ####[facility] [address] [place], [place], [phone](293) MALB:CREAT UNABLE TO CALCULATE Normal [facility] Comment on above: Performed By: #### L 501.88026, L501.9985, L506.0400, L502.0250, L500.4050, L500.4100, L501.9520 ####[facility] [address] [place], [place], [id number] MICROALBUMIN,UR < 12.0 Normal NO RANGE EST. [facility] Comment on above: Performed By: #### L 501.01665, L501.9985, L506.0400, L502.0250, L500.4050, L500.4100, L501.9520 ####[facility] [address] [place], [place], [phone] Microalbumin/creat ratio urO rdered By: Nehemias Arizmendi on 11-27-2024 Urine microalbumin/creatinin e ratio measurement UNABLE TO CALCULATE mg/g CRE [facility] Potassium measurement (mass/ volume)Ordered By: Nehemias Arizmendi on 11-27-2024 Potassium (Unsp spec) [Mass/Vol] 3.8 mmol/L 3.3-5.1 [facility] Random urine creatinine jasiel urement (mass/volume)Ordered By: Nehemias Arizmendi on 11-27-2024 Creatinine Unsp time (U) [Mass/Vol] 24.50 mg/dL Low 28.00-217. 00 [facility] Screening total cholesterol/ high density lipoprotein (HDL) cholesterol ratioOrdered By: Nehemias Arizmendi on 11-27-2024 Cholesterol.total/Chol esterol in HDL [Mass ratio] 2.38 {ratio} [facility] Serum or plasma alkaline quintin sphatase measurementOrdered By: Nehemias Arizmendi on 11-27-2024 ALP [Catalytic activity/Vol] 106 U/L High 35-104 [facility] T4 Free Directon 11-27-2024 T4 FREE DIRECT 1.70 ng/dL High 0.76-1.46 [facility] Comment on above: Performed By: #### L 501.28796, L501.9985, L506.0400, L502.0250, L500.4050, L500.4100, L501.9520 ####[facility] [address] [place], [place], [address] T4 freeOrdered By: Nehemias petty on 11-27-2024 Free T4 [Mass/Vol] 1.70 ng/dL High 0.76-1.46 [facility] TSH DL <= 0.005 mIU/L QnOrde red By: Nehemias Arizmendi on 11-27-2024 TSH Qn 0.293 uIU/mL Low 0.300-4.20 0 [facility] Thyroid Stim Hormone (TSH)on 11-27-2024 TSH 0.293 uIU/mL Low 0.300-4.20 0 [facility] Comment on above: Performed By: #### L 501.26504, L501.9985, L506.0400, L502.0250, L500.4050, L500.4100, L501.9520 ####[facility] [address] [place], [address] Total proteinOrdered By: Norma Arizmendi on 11-27-2024 Protein [Mass/Vol] 8.3 g/dL 5.9-8.4 [facility] Urine albumin measurement detection limit of 20 mg/L or less (mass/volume)Ordered By: Nehemias Arizmendi on 11-27-2024 Albumin DL <= 20 mg/L (U) [Mass/Vol] < 12.0 mg/L NO RANGE EST. [facility] Absolute lymphocyte countOrd ered By: [facility] on 11-21-2024 Lymphocytes Auto (Unsp spec) [#/Vol] 1.75 10*3/uL 0.83-4.51 [facility] Absolute neutrophil countOrd ered By: [facility] 11-21-2024 Neutrophils (Bld) [#/Vol] 5.7 10*3/uL 2.0-7.7 [facility] Anion gap in Serum or Plasma Ordered By: Dianaprasanna Ramos on 11-21-2024 Anion gap [Moles/Vol] 15 mmol/L 5-15 [facility] Automated lymphocyte count a s percentage of total leukocytesOrdered By: Dianaprasanna Ramos on 11-21-2024 Lymphocytes/100 WBC Auto (Unsp spec) 21.3 % 19-41 [facility] BUN/creatinine ratioOrdered By: [facility] on 11-21-2024 Urea nitrogen/Creatinine [Mass ratio] 22.0 mg/mg High 10-20 [facility] Basophil percentageOrdered B y: Dianaprasanna Ramos on 11-21-2024 Basophils/100 WBC (Bld) 0.6 % 0-1 [facility] Bilirubin, totalOrdered By: [facility] on 11-21-2024 Bilirubin [Mass/Vol] 0.44 mg/dL 0.00-1.30 [facility] CBC W/Diff, Automatedon 10-27 Absolute Lymph 1.75 X10 3/uL Normal 0.83-4.51 [facility] Comment on above: Performed By: #### L 500.4050, L100.0100 ####[facility] [address] [place], [address] Absolute Neut 5.7 X10 3/uL Normal 2.0-7.7 [facility] Comment on above: Performed By: #### L 500.4050, L100.0100 ####[facility] [address] [place], [address] Basophils/100 WBC (Bld) 0.6 % Normal 0-1 [facility] Comment on above: Performed By: #### L 500.4050, L100.0100 ####[facility] [address] [place], [address] Eosinophils/100 WBC (Bld) 1.8 % Normal 0-5 [facility] Comment on above: Performed By: #### L 500.4050, L100.0100 ####[facility] [address] [place], [address] Erythrocyte distribution width (RBC) [Ratio] 14.6 % Normal 11.6-14.6 [facility] Comment on above: Performed By: #### L 500.4050, L100.0100 ####[facility] [address] [place], [address] Hematocrit (Bld) [Volume fraction] 44.0 % Normal 37-47 [facility] Comment on above: Performed By: #### L 500.4050, L100.0100 ####[facility] [address] [place], [address] Hemoglobin (Bld) [Mass/Vol] 14.0 g/dL Normal 12.0-15.0 [facility] Comment on above: Performed By: #### L 500.4050, L100.0100 ####[facility] [address] [place], [address] IG% 0.500 Normal 0.0-0.9 [facility] Comment on above: Result Comment: IG% - Immature Granulocytes (promyelocytes, myelocytes andmetamyelocytes) > 1% indicates that a LEFT SHIFT is Present. Performed By: #### L 500.4050, L100.0100 ####[facility] [address] [place], [address] Lymphocytes/100 WBC (Bld) 21.3 % Normal 19-41 [facility] Comment on above: Performed By: #### L 500.4050, L100.0100 ####[facility] [address] [place], [address] MCH (RBC) [Entitic mass] 28.1 pg Normal 27.0-32.0 [facility] Comment on above: Performed By: #### L 500.4050, L100.0100 ####[facility] [address] [place], [address] MCHC (RBC) [Mass/Vol] 31.8 g/dL Low 32-36 [facility] Comment on above: Performed By: #### L 500.4050, L100.0100 ####[facility] [address] [place], [address] MCV (RBC) [Entitic vol] 88.2 fL Normal 81-99 [facility] Comment on above: Performed By: #### L 500.4050, L100.0100 ####[facility] [address] [place], [address] Monocytes/100 WBC (Bld) 6.6 % Normal 0-10 [facility] Comment on above: Performed By: #### L 500.4050, L100.0100 ####[facility] [address] [place], [address] Neutrophils/100 WBC (Bld) 69.2 % Normal 47-70 [facility] Comment on above: Performed By: #### L 500.4050, L100.0100 ####[facility] [address] [place], [address] Nucleated RBC (Bld) [#/Vol] 0 10*3/uL Normal 0-5 [facility] Comment on above: Performed By: #### L 500.4050, L100.0100 ####[facility] [address] [place], [address] Platelet mean volume (Bld) [Entitic vol] 10.0 fL Normal 6.2-12.0 [facility] Comment on above: Performed By: #### L 500.4050, L100.0100 ####[facility] [address] [place], [address] Platelets (Bld) [#/Vol] 231 10*3/uL Normal 150-450 [facility] Comment on above: Performed By: #### L 500.4050, L100.0100 ####[facility] [address] [place], [address] RBC (Bld) [#/Vol] 4.99 10*6/uL Normal 4.2-5.4 [facility] Comment on above: Performed By: #### L 500.4050, L100.0100 ####[facility] [address] [place], [address] RDW SD 46.7 fl High 35.1-43.9 [facility] Comment on above: Performed By: #### L 500.4050, L100.0100 ####[facility] [address] [place], [address] WBC (Bld) [#/Vol] 8.2 10*3/uL Normal 4.4-11.0 [facility] Comment on above: Performed By: #### L 500.4050, L100.0100 ####[facility] [address] [place], [address] Carbon dioxide, total [Moles /volume] in Central venous bloodOrdered By: Diana Ramos on 11-21-2024 CO2 [Moles/Vol] 21.2 mmol/L 21.0-32.0 [facility] Chloride assayOrdered By: Sanaz Ramos on 11-21-2024 Chloride [Moles/Vol] 103 mmol/L 98-108 [facility] Comprehensive Metabolic Prof ilon 11-21-2024 Albumin [Mass/Vol] 4.1 g/dL Normal 3.4-4.8 [facility] Comment on above: Performed By: #### L 500.4050, L100.0100 ####[facility] [address] [place], [address] Albumin/Globulin [Mass ratio] 1.1 {ratio} Normal 0.9-2.4 [facility] Comment on above: Performed By: #### L 500.4050, L100.0100 ####[facility] [address] [place], [address] ALK PHOS 106 U/L High 35-104 [facility] Comment on above: Performed By: #### L 500.4050, L100.0100 ####[facility] [address] [place], [address] ALT [Catalytic activity/Vol] 11 U/L Normal <=34 [facility] Comment on above: Performed By: #### L 500.4050, L100.0100 ####[facility] [address] [place], [address] AST [Catalytic activity/Vol] 16 U/L Normal <=31 [facility] Comment on above: Performed By: #### L 500.4050, L100.0100 ####[facility] [address] [place], [address] Bilirubin [Mass/Vol] 0.44 mg/dL Normal 0.00-1.30 [facility] Comment on above: Performed By: #### L 500.4050, L100.0100 ####[facility] [address] [place], [address] BUN/CRE 22.0 RATIO High 10-20 [facility] Comment on above: Performed By: #### L 500.4050, L100.0100 ####[facility] [address] [place], [address] Calcium [Mass/Vol] 9.6 mg/dL Normal 7.6-11.0 [facility] Comment on above: Performed By: #### L 500.4050, L100.0100 ####[facility] [address] [place], [address] Chloride [Moles/Vol] 103 mmol/L Normal 98-108 [facility] Comment on above: Performed By: #### L 500.4050, L100.0100 ####[facility] [address] [place], [address] CO2 [Moles/Vol] 21.2 mmol/L Normal 21.0-32.0 [facility] Comment on above: Performed By: #### L 500.4050, L100.0100 ####[facility] [address] [place], [address] Creatinine [Mass/Vol] 0.75 mg/dL Normal 0.70-1.20 [facility] Comment on above: Performed By: #### L 500.4050, L100.0100 ####[facility] [address] [place], [address] GAP 15 Normal 5-15 [facility] Comment on above: Performed By: #### L 500.4050, L100.0100 ####[facility] [address] [place], [address] GFR/1.73 sq M.predicted among non-blacks MDRD (S/P/Bld) [Vol rate/Area] 91 mL/min/{1.73_m2} Normal >60 [facility] Comment on above: Result Comment: mL/m in/1.73m2 CKD-EPI Creatinine Equation (2020) Performed By: #### L 500.4050, L100.0100 ####[facility] [address] [place], [address] Globulin (S) [Mass/Vol] 3.8 g/dL Normal 2.2-4.2 [facility] Comment on above: Performed By: #### L 500.4050, L100.0100 ####[facility] [address] [place], [address] Glucose [Mass/Vol] 216 mg/dL High 70-99 [facility] Comment on above: Performed By: #### L 500.4050, L100.0100 ####[facility] [address] [place], [address] Potassium [Moles/Vol] 3.4 mmol/L Normal 3.3-5.1 [facility] Comment on above: Performed By: #### L 500.4050, L100.0100 ####[facility] [address] [place], [address] Sodium [Moles/Vol] 139 mmol/L Normal 133-145 [facility] Comment on above: Performed By: #### L 500.4050, L100.0100 ####[facility] [address] [place], [address] T PROT 7.9 g/dL Normal 5.9-8.4 [facility] Comment on above: Performed By: #### L 500.4050, L100.0100 ####[facility] [address] [place], [address] Urea nitrogen [Mass/Vol] 17 mg/dL Normal 4-19 [facility] Comment on above: Performed By: #### L 500.4050, L100.0100 ####[facility] [address] [place], [address] Eosinophil percentageOrdered By: Diana Ramos on 11-21-2024 Eosinophils/100 WBC (Bld) 1.8 % 0-5 [facility] Erythrocyte distribution wid th ratioOrdered By: Diana Ramos on 11-21-2024 Erythrocyte distribution width (RBC) [Ratio] 14.6 % 11.6-14.6 [facility] Erythrocyte distribution wid th standard deviationOrdered By: Diana Ramos on 11-21-2024 Erythrocyte distribution width (RBC) [Ratio] 46.7 fl High 35.1-43.9 [facility] Glomerular filtration rate ( GFR) estimation/1.73 sq m using serum, plasma, or whole bOrdered By: Diana Ramos on 11-21-2024 GFR/1.73 sq M.predicted among non-blacks MDRD (S/P/Bld) [Vol rate/Area] 91 mL/min/{1.73_m2} >60 [facility] Comment on above: mL/min/1.73m2 CKD-EP I Creatinine Equation (2020) Hematocrit Auto (Bld) [Volum e fraction]Ordered By: Diana Ramos on 11-21-2024 Hematocrit (Bld) [Volume fraction] 44.0 % 37-47 [facility] Hemoglobin measurementOrdere d By: Diana Ramos on 11-21-2024 Hemoglobin (Bld) [Mass/Vol] 14.0 g/dL 12.0-15.0 [facility] Immature granulocytes/100 WB C Auto (Bld)Ordered By: Diana Ramos on 11-21-2024 Immature granulocytes/100 WBC (Bld) 0.500 % 0.0-0.9 [facility] Comment on above: IG% - Immature Granu locytes (promyelocytes, myelocytes and metamyelocytes) > 1% indicates that a LEFT SHIFT is Present. Laboratory - Chemistry and C hemistry - challengeOrdered By: Diana Ramos on 11-21-2024 AST [Catalytic activity/Vol] 16 U/L <32 [facility] MCV (mean corpuscular volume ) determinationOrdered By: Diana Ramos on 11-21-2024 MCV (RBC) [Entitic vol] 88.2 fL 81-99 [facility] Mean corpuscular hemoglobin (MCH) determinationOrdered By: Diana Ramos on 11-21-2024 MCH (RBC) [Entitic mass] 28.1 pg 27.0-32.0 [facility] Mean corpuscular hemoglobin concentration (MCHC) determinationOrdered By: Diana Ramos on 11-21-2024 MCHC (RBC) [Mass/Vol] 31.8 g/dL Low 32-36 [facility] Mean platelet volume determi nationOrdered By: Diana Ramos on 11-21-2024 Platelet mean volume (Bld) [Entitic vol] 10.0 fL 6.2-12.0 [facility] Monocyte percentageOrdered B y: Diana Ramos on 11-21-2024 Monocytes/100 WBC (Bld) 6.6 % 0-10 [facility] Neutrophil percentageOrdered By: Diana Ramos on 11-21-2024 Neutrophils/100 WBC (Bld) 69.2 % 47-70 [facility] Nucleated red blood cell per centageOrdered By: Diana Ramos on 11-21-2024 Nucleated RBC/100 WBC (Bld) [Ratio] 0 % 0-5 [facility] Platelet countOrdered By: Sanaz Ramos on 11-21-2024 Platelets (Bld) [#/Vol] 231 10*3/uL 150-450 [facility] Potassium measurement (mass/ volume)Ordered By: Diana Ramos on 11-21-2024 Potassium (Unsp spec) [Mass/Vol] 3.4 mmol/L 3.3-5.1 [facility] RBC Auto (Bld) [#/Vol]Ordere d By: Diana Ramos on 11-21-2024 RBC (Bld) [#/Vol] 4.99 10*6/uL 4.2-5.4 [facility] Serum creatinine measurement (mass/volume)Ordered By: Diana Ramos on 11-21-2024 Creatinine [Mass/Vol] 0.75 mg/dL 0.70-1.20 [facility] Serum globulin measurementOr dered By: Diana Ramos on 11-21-2024 Globulin (S) [Mass/Vol] 3.8 g/dL 2.2-4.2 [facility] Serum glucose measurement (m ass/volume)Ordered By: Diana Ramos on 11-21-2024 Glucose [Mass/Vol] 216 mg/dL High 70-99 [facility] Serum or plasma alanine smith otransferase (ALT) measurementOrdered By: Diana Ramos on 11-21-2024 ALT [Catalytic activity/Vol] 11 U/L <35 [facility] Serum or plasma albumin jasiel urement (mass/volume)Ordered By: Diana Ramos on 11-21-2024 Albumin [Mass/Vol] 4.1 g/dL 3.4-4.8 [facility] Serum or plasma albumin/glob ulin mass ratioOrdered By: Diana Ramos on 11-21-2024 Albumin/Globulin [Mass ratio] 1.1 {ratio} 0.9-2.4 [facility] Serum or plasma alkaline quintin sphatase measurementOrdered By: Diana Ramos on 11-21-2024 ALP [Catalytic activity/Vol] 106 U/L High 35-104 [facility] Serum or plasma calcium jasiel urement (mass/volume)Ordered By: Diana Ramos on 11-21-2024 Calcium [Mass/Vol] 9.6 mg/dL 7.6-11.0 [facility] Serum or plasma urea nitroge n measurement (mass/volume)Ordered By: Diana Ramos on 11-21-2024 Urea nitrogen [Mass/Vol] 17 mg/dL 4-19 [facility] Sodium levelOrdered By: Alexia Ramos on 11-21-2024 Sodium [Moles/Vol] 139 mmol/L 133-145 [facility] Total proteinOrdered By: Katarina Ramos on 11-21-2024 Protein [Mass/Vol] 7.9 g/dL 5.9-8.4 [facility] White blood cell (WBC) count Ordered By: Diana Ramos on 11-21-2024 WBC (Bld) [#/Vol] 8.2 10*3/uL 4.4-11.0 [facility] Anion gap in Serum or Plasma Ordered By: Leobardo Soto on 10-23-2024 Anion gap [Moles/Vol] 10 mmol/L 5-15 [facility] BUN/creatinine ratioOrdered By: Leobardo Soto on 10-23-2024 Urea nitrogen/Creatinine [Mass ratio] 57.9 mg/mg High 10-20 [facility] Basic Metabolic Profile (BMP )on 10-23-2024 BUN/CRE 57.9 RATIO High - [facility] Comment on above: Performed By: #### L 100.0500, L500.2500 ####[facility] [address] [place], [address] Calcium [Mass/Vol] 9.0 mg/dL Normal 7.6-11.0 [facility] Comment on above: Performed By: #### L 100.0500, L500.2500 ####[facility] [address] [place], [address] Chloride [Moles/Vol] 99 mmol/L Normal 98-108 [facility] Comment on above: Performed By: #### L 100.0500, L500.2500 ####[facility] [address] [place], [address] CO2 [Moles/Vol] 32.1 mmol/L High 21.0-32.0 [facility] Comment on above: Performed By: #### L 100.0500, L500.2500 ####[facility] [address] [place], [address] Creatinine [Mass/Vol] 0.53 mg/dL Low 0.70-1.20 [facility] Comment on above: Performed By: #### L 100.0500, L500.2500 ####[facility] [address] [place], [address] ECRCL 122.16 ml/min Normal 50-250 [facility] Comment on above: Performed By: #### L 100.0500, L500.2500 ####[facility] [address] [place], [address] GAP 10 Normal 5-15 [facility] Comment on above: Performed By: #### L 100.0500, L500.2500 ####[facility] [address] [place], [address] GFR/1.73 sq M.predicted among non-blacks MDRD (S/P/Bld) [Vol rate/Area] 105 mL/min/{1.73_m2} Normal >60 [facility] Comment on above: Result Comment: mL/m in/1.73m2 CKD-EPI Creatinine Equation (2020) Performed By: #### L 100.0500, L500.2500 ####[facility] [address] [place], [address] Glucose [Mass/Vol] 173 mg/dL High 70-99 [facility] Comment on above: Performed By: #### L 100.0500, L500.2500 ####[facility] [address] [place], [address] Potassium [Moles/Vol] 3.2 mmol/L Low 3.3-5.1 [facility] Comment on above: Performed By: #### L 100.0500, L500.2500 ####[facility] [address] [place], [address] Sodium [Moles/Vol] 141 mmol/L Normal 133-145 [facility] Comment on above: Performed By: #### L 100.0500, L500.2500 ####[facility] [address] [place], [address] Urea nitrogen [Mass/Vol] 31 mg/dL High 4-19 [facility] Comment on above: Performed By: #### L 100.0500, L500.2500 ####[facility] [address] [place], [address] Bedside Glucoseon 10-23-2024 FINGERSTICK GLU 191 mg/dL High 74-106 [facility] Comment on above: Result Comment: SARA GEMENT OF PATIENT CARE PER NURSING PROTOCOL Performed By: #### L 501.080 ####[facility] [address] [place], [address] FINGERSTICK GLU 185 mg/dL High 74-106 [facility] Comment on above: Result Comment: SARA GEMENT OF PATIENT CARE PER NURSING PROTOCOL Performed By: #### L 501.080 ####[facility] [address] [place], [address] CBC-Complete Blood Cnt No Di ffon 10-23-2024 Erythrocyte distribution width (RBC) [Ratio] 14.3 % Normal 11.6-14.6 [facility] Comment on above: Performed By: #### L 100.0500, L500.2500 ####[facility] [address] [place], [address] Hematocrit (Bld) [Volume fraction] 38.6 % Normal 37-47 [facility] Comment on above: Performed By: #### L 100.0500, L500.2500 ####[facility] [address] [place], [address] Hemoglobin (Bld) [Mass/Vol] 12.4 g/dL Normal 12.0-15.0 [facility] Comment on above: Performed By: #### L 100.0500, L500.2500 ####[facility] [address] [place], [address] MCH (RBC) [Entitic mass] 28.4 pg Normal 27.0-32.0 [facility] Comment on above: Performed By: #### L 100.0500, L500.2500 ####[facility] [address] [place], [address] MCHC (RBC) [Mass/Vol] 32.1 g/dL Normal 32-36 [facility] Comment on above: Performed By: #### L 100.0500, L500.2500 ####[facility] [address] [place], [address] MCV (RBC) [Entitic vol] 88.5 fL Normal 81-99 [facility] Comment on above: Performed By: #### L 100.0500, L500.2500 ####[facility] [address] [place], [address] Platelet mean volume (Bld) [Entitic vol] 9.5 fL Normal 6.2-12.0 [facility] Comment on above: Performed By: #### L 100.0500, L500.2500 ####[facility] [address] [place], [address] Platelets (Bld) [#/Vol] 241 10*3/uL Normal 150-450 [facility] Comment on above: Performed By: #### L 100.0500, L500.2500 ####[facility] [address] [place], [address] RBC (Bld) [#/Vol] 4.36 10*6/uL Normal 4.2-5.4 [facility] Comment on above: Performed By: #### L 100.0500, L500.2500 ####[facility] [address] [place], [address] RDW SD 46.2 fl High 35.1-43.9 [facility] Comment on above: Performed By: #### L 100.0500, L500.2500 ####[facility] [address] [place], [address] WBC (Bld) [#/Vol] 8.2 10*3/uL Normal 4.4-11.0 [facility] Comment on above: Performed By: #### L 100.0500, L500.2500 ####[facility] [address] [place], [address] Carbon dioxide, total [Moles /volume] in Central venous bloodOrdered By: Leobardo Soto on 10-23-2024 CO2 [Moles/Vol] 32.1 mmol/L High 21.0-32.0 [facility] Chloride assayOrdered By: Ezequiel Soto on 10-23-2024 Chloride [Moles/Vol] 99 mmol/L 98-108 [facility] Discharge Instructionon 09-27 Discharge Instruction Normal [facility] Erythrocyte distribution wid th ratioOrdered By: Leobardo Soto on 10-23-2024 Erythrocyte distribution width (RBC) [Ratio] 14.3 % 11.6-14.6 [facility] Erythrocyte distribution wid th standard deviationOrdered By: Leobardo Soto on 10-23-2024 Erythrocyte distribution width (RBC) [Ratio] 46.2 fl High 35.1-43.9 [facility] Glomerular filtration rate ( GFR) estimation/1.73 sq m using serum, plasma, or whole bOrdered By: Leobardo Soto on 10-23-2024 GFR/1.73 sq M.predicted among non-blacks MDRD (S/P/Bld) [Vol rate/Area] 105 mL/min/{1.73_m2} >60 [facility] Comment on above: mL/min/1.73m2 CKD-EP I Creatinine Equation (2020) [facility] deOrdered By: Leobardo Soto on 10-23-2024 Glucose [Mass/Vol] 191 mg/dL High 74-106 [facility] Comment on above: MANAGEMENT OF PATIEN T CARE PER NURSING PROTOCOL Hematocrit Auto (Bld) [Volum e fraction]Ordered By: Leobardo Soto on 10-23-2024 Hematocrit (Bld) [Volume fraction] 38.6 % 37-47 [facility] Hemoglobin measurementOrdere d By: Leobardo Soto on 10-23-2024 Hemoglobin (Bld) [Mass/Vol] 12.4 g/dL 12.0-15.0 [facility] MCV (mean corpuscular volume ) determinationOrdered By: Leobardo Soto on 10-23-2024 MCV (RBC) [Entitic vol] 88.5 fL 81-99 [facility] Mean corpuscular hemoglobin (MCH) determinationOrdered By: Leobardo Soto on 10-23-2024 MCH (RBC) [Entitic mass] 28.4 pg 27.0-32.0 [facility] Mean corpuscular hemoglobin concentration (MCHC) determinationOrdered By: Leobardo Soto on 10-23-2024 MCHC (RBC) [Mass/Vol] 32.1 g/dL 32-36 [facility] Mean platelet volume determi nationOrdered By: Leobardo Soto on 10-23-2024 Platelet mean volume (Bld) [Entitic vol] 9.5 fL 6.2-12.0 [facility] Platelet countOrdered By: Ezequiel Soto on 10-23-2024 Platelets (Bld) [#/Vol] 241 10*3/uL 150-450 [facility] Potassium measurement (mass/ volume)Ordered By: Leobardo Stoo on 10-23-2024 Potassium (Unsp spec) [Mass/Vol] 3.2 mmol/L Low 3.3-5.1 [facility] RBC Auto (Bld) [#/Vol]Ordere d By: Leobardo Soto on 10-23-2024 RBC (Bld) [#/Vol] 4.36 10*6/uL 4.2-5.4 [facility] Serum creatinine measurement (mass/volume)Ordered By: Leobardo Soto on 10-23-2024 Creatinine [Mass/Vol] 0.53 mg/dL Low 0.70-1.20 [facility] Serum glucose measurement (m ass/volume)Ordered By: Leobardo Soto on 10-23-2024 Glucose [Mass/Vol] 173 mg/dL High 70-99 [facility] Serum or plasma calcium jasiel urement (mass/volume)Ordered By: Leobardo Soto on 10-23-2024 Calcium [Mass/Vol] 9.0 mg/dL 7.6-11.0 [facility] Serum or plasma urea nitroge n measurement (mass/volume)Ordered By: Leobardo Soto on 10-23-2024 Urea nitrogen [Mass/Vol] 31 mg/dL High 4-19 [facility] Sodium levelOrdered By: [place] jaime Charles on 10-23-2024 Sodium [Moles/Vol] 141 mmol/L 133-145 [facility] White blood cell (WBC) count Ordered By: Leobardo Soto on 10-23-2024 WBC (Bld) [#/Vol] 8.2 10*3/uL 4.4-11.0 [facility] Bedside Glucoseon 10-22-2024 FINGERSTICK GLU 213 mg/dL High [address] Comment on above: Result Comment: SARA GEMENT OF PATIENT CARE PER NURSING PROTOCOL Performed By: #### L 501.080 ####[facility] [address] [facility] [address] FINGERSTICK GLU 256 mg/dL [address] Comment on above: Result Comment: SARA GEMENT OF PATIENT CARE PER NURSING PROTOCOL Performed By: #### L 501.080 ####[facility] [address] [facility] [address] FINGERSTICK GLU 255 mg/dL [address] Comment on above: Result Comment: SARA GEMENT OF PATIENT CARE PER NURSING PROTOCOL Performed By: #### L 501.080 ####[facility] [address] [facility] [address] FINGERSTICK GLU 213 mg/dL [address] Comment on above: Result Comment: SARA GEMENT OF PATIENT CARE PER NURSING PROTOCOL Performed By: #### L 501.080 ####[facility] [address] [place], [address] Assessment of wrist artery p atency prior to arterial punctureOrdered By: Sy Gr on 10-21-2024 Arterial patency Wrist artery --pre arterial puncture Positive [facility] Bedside Glucoseon 10-21-2024 FINGERSTICK GLU 288 mg/dL High [address] [place] [address] Comment on above: Result Comment: SARA GEMENT OF PATIENT CARE PER NURSING PROTOCOL Performed By: #### L 501.080 ####[facility] [address] [place], [address] FINGERSTICK GLU 306 mg/dL High 74-106 [facility] Comment on above: Result Comment: SARA GEMENT OF PATIENT CARE PER NURSING PROTOCOL Performed By: #### L 501.080 ####[facility] [address] [place], [address] FINGERSTICK GLU 355 mg/dL High 74-106 [facility] Comment on above: Result Comment: SARA GEMENT OF PATIENT CARE PER NURSING PROTOCOL Performed By: #### L 501.080 ####[facility] [address] [place], [address] FINGERSTICK GLU 151 mg/dL High 74-106 [facility] Comment on above: Result Comment: SARA GEMENT OF PATIENT CARE PER NURSING PROTOCOL Performed By: #### L 501.080 ####[facility] [address] [place], [address] Blood Gases by [facility] 025 Base excess Calc (Bld) [Moles/Vol] -6 mmol/L Low -2 to +2 [facility] Comment on above: Performed By: #### L 9000.0800 ####[facility] [address] [place], [address] Blood Gas Type ART Normal [facility] Comment on above: Performed By: #### L 9000.0800 ####[facility] [address] [place], [address] CO2 [Moles/Vol] 22 mmol/L Normal [facility] Comment on above: Performed By: #### L 9000.0800 ####[facility] [address] [place], [address] Comment 06/04 Normal [facility] Comment on above: Performed By: #### L 9000.0800 ####[facility] [address] [place], [address] FI02 40.0 Normal [facility] Comment on above: Performed By: #### L 9000.0800 ####[facility] [address] [place], [address] HCO3 (Bld) [Moles/Vol] 21.1 mmol/L Low 22-26 [facility] [place] Comment on above: Performed By: #### L 9000.0800 ####[facility] [address] [place], [address] Mode AC Normal [facility] Comment on above: Performed By: #### L 9000.0800 ####[facility] [address] [place], [address] O2 Delivery Dev BiPAP Normal [facility] Comment on above: Performed By: #### L 9000.0800 ####[facility] [address] [place], [address] pCO2 43.8 mmHg Normal 35-45 [facility] Comment on above: Performed By: #### L 9000.0800 ####[facility] [address] [place], [address] pH (Bld) 7.29 [pH] Low 7.35-7.45 [facility] Comment on above: Performed By: #### L 9000.0800 ####[facility] [address] [place], [address] PO2 74 mmHG Low 75-100 [facility] Comment on above: Performed By: #### L 9000.0800 ####[facility] [address] [place], [address] RR 14 Normal [facility] Comment on above: Performed By: #### L 9000.0800 ####[facility] [address] [place], [address] SITE L Brach Normal [facility] Comment on above: Performed By: #### L 8999.08 ####[facility] [address] [place], [address] SO2 93 Low 95-99 [facility] Comment on above: Performed By: #### L 8999.0800 ####[facility] [address] [place], [address] IVANA TEST Positive Normal [facility] Comment on above: Performed By: #### L 8999.0800 ####[facility] [address] [place], [address] Base excess Calc (Bld) [Moles/Vol] -5 mmol/L Low -2 to +2 [facility] Comment on above: Performed By: #### L 8999.08 ####[facility] [address] [place], [address] Blood Gas Type ART Normal [facility] Comment on above: Performed By: #### L 8999.08 ####[facility] [address] [place], [address] CO2 [Moles/Vol] 23 mmol/L Normal [facility] Comment on above: Performed By: #### L 8999.0800 ####[facility] [address] [place], [address] FI02 8.0 Normal [facility] Comment on above: Performed By: #### L 8999.08 ####[facility] [address] [place], [address] HCO3 (Bld) [Moles/Vol] 21.5 mmol/L Low 22-26 [facility] [place] Comment on above: Performed By: #### L 8999.0800 ####[facility] [address] [place], [address] Mode Not entered Normal [facility] Comment on above: Performed By: #### L 9000.0800 ####[facility] [address] [place], [address] O2 Delivery Dev Cannula Normal [facility] Comment on above: Performed By: #### L 0.0800 ####[facility] [address] [place], [address] pCO2 46.8 mmHg High 35-45 [facility] Comment on above: Performed By: #### L 9000.0800 ####[facility] [address] [place], [address] pH (Bld) 7.27 [pH] Low 7.35-7.45 [facility] Comment on above: Performed By: #### L 9000.0800 ####[facility] [address] [place], [address] PO2 65 mmHG Low 75-100 [facility] Comment on above: Performed By: #### L 9000.0800 ####[facility] [address] [place], [address] SITE R Radial Normal [facility] Comment on above: Performed By: #### L 0.0800 ####[facility] [address] [place], [address] SO2 89 Low 95-99 [facility] Comment on above: Performed By: #### L 9000.0800 ####[facility] [address] [place], [address] Blood base excess determinat ionOrdered By: Sy Gr on 10-21-2024 Base excess Calc (BldV) [Moles/Vol] -6 mmol/L Low -2-2 [facility] Blood bicarbonate measuremen tOrdered By: Sy Gr on 10-21-2024 HCO3 (Bld) [Moles/Vol] 21.1 mmol/L Low 22-26 [place] CO2 (BldV) [Moles/Vol]Ordere d By: Sy Gr on 10-21-2024 CO2 [Moles/Vol] 21 mmol/L Low 23-33 [facility] Chest 1 View (Portable)on Chest 1 View (Portable) Normal [facility] L503.7505on 10-21-2024 Natriuretic peptide B (Bld) [Mass/Vol] 527 pg/mL Normal <=900 [facility] Comment on above: Result Comment: Hear t Failure Unlikely: < 300 pg/mLHeart Failure Likely< 50 Years: > 450 pg/mL50-75 Years: > 900 pg/mL>75 Years: > 1800 pg/mL Performed By: #### L 503.7505 ####[facility] [address] [place], [address] Measurement, pHOrdered By: Nathaniel Gr on 10-21-2024 pH (Unsp spec) 7.29 [pH] Low 7.35-7.45 [facility] Natriuretic peptide.B prohor jesi N-Terminal [Mass/volume] in Serum or PlasmaOrdered By: Bharathi Saldana on 10-21-2024 Natriuretic peptide.B prohormone N-Terminal [Mass/Vol] 527 pg/mL <900 [facility] Comment on above: Heart Failure Unlike ly: < 300 pg/mLHeart Failure Likely< 50 Years: > 450 pg/mL50-75 Years: > 900 pg/mL>75 Years: > 1800 pg/mL No Panel InformationOrdered By: Sy Gr on 10-21-2024 Blood Gas Clinical Comments 06/04 [facility] Blood Gas Respiration Rate 14 [facility] Blood Gas Sample Site L Brach [facility] Blood Gas Specimen Type ART [facility] Blood Gas Vent Mode AC [facility] Oxygen Delivery Device BiPAP [facility] Respiratory Cultureon 2024 RESPC Normal [facility] Comment on above: Performed By: #### M 100.2400, M100.2000 ####[facility] [address] [place], [address] Total carbon dioxide measure mentOrdered By: Sy Gr on 10-21-2024 CO2 [Moles/Vol] 22 mmol/L [facility] Venous Blood Gason Blood Gas Type NAEEM Normal [facility] Comment on above: Performed By: #### L 9000.0810 ####[facility] [address] [place], [address] CO2 [Moles/Vol] 21 mmol/L Low 23-33 [facility] Comment on above: Performed By: #### L 9000.0810 ####[facility] [address] [place], [address] HCO3 (Bld) [Moles/Vol] 20 mmol/L Low 22-26 [facility] Comment on above: Performed By: #### L 9000.0810 ####[facility] [address] [place], [address] O2 Delivery Dev Not entered [facility] Comment on above: Performed By: #### L 9000.0810 ####[facility] [address] [place], [address] SITE Not entered [facility] Comment on above: Performed By: #### L 9000.0810 ####[facility] [address] [place], [address] VBG BE -7 mmol/L Low -1.0-3.5 [facility] Comment on above: Performed By: #### L 9000.0810 ####[facility] [address] [place], [address] VBG pCO2 42.9 mmHg Normal 41-51 [facility] Comment on above: Performed By: #### L 9000.0810 ####[facility] [address] [place], [address] VBG pH 7.28 Low 7.32-7.42 [facility] Comment on above: Performed By: #### L 9000.0810 ####[facility] [address] [place], [address] VBG PO2 71 mmHg High 25-40 [facility] Comment on above: Performed By: #### L 9000.0810 ####[facility] [address] [place], [address] VBG SO2 92 High 50-70 [facility] Comment on above: Performed By: #### L 9000.0810 ####[facility] [address] [place], [address] Venous blood base excess giorgi surementOrdered By: Sy Gr on 10-21-2024 Base excess Calc (BldV) [Moles/Vol] -7 mmol/L Low -1.0-3.5 [facility] Venous blood bicarbonate giorgi surementOrdered By: Sy Gr on 10-21-2024 HCO3 (Bld) [Moles/Vol] 20 mmol/L Low 22-26 [facility] Venous blood oxygen saturati on measurementOrdered By: Sy Gr on 10-21-2024 Oxygen saturation in Blood 92 % High 50-70 [facility] Venous blood pH measurementO rdered By: Sy Gr on 10-21-2024 pH (BldV) 7.28 [pH] Low 7.32-7.42 [facility] Venous blood partial pressur e of carbon dioxide measurementOrdered By: Sy Gr on 10-21-2024 CO2 (BldV) [Partial pressure] 42.9 mm[Hg] 41-51 [facility] Venous blood partial pressur e of oxygen measurementOrdered By: Sy Gr on 10-21-2024 Oxygen (BldV) [Partial pressure] 71 mm[Hg] High 25-40 [facility] Absolute lymphocyte countOrd ered By: Bharathi Saldana on 10-20-2024 Lymphocytes Auto (Unsp spec) [#/Vol] 0.90 10*3/uL 0.83-4.51 [facility] Absolute neutrophil countOrd ered By: Bharathi Saldana on 10-20-2024 Neutrophils (Bld) [#/Vol] 9.4 10*3/uL High 2.0-7.7 [facility] Automated lymphocyte count a s percentage of total leukocytesOrdered By: Bharathi Saldana on 10-20-2024 Lymphocytes/100 WBC Auto (Unsp spec) 7.8 % Low 19-41 [facility] Basic Metabolic Profile (BMP )on 10-20-2024 BUN/CRE 44.4 RATIO High 10-20 [facility] Comment on above: Performed By: #### L 100.0100, L500.2500 ####[facility] [address] [place], [address] Calcium [Mass/Vol] 8.7 mg/dL Normal 7.6-11.0 [facility] Comment on above: Performed By: #### L 100.0100, L500.2500 ####[facility] [address] [place], [address] Chloride [Moles/Vol] 103 mmol/L Normal 98-108 [facility] Comment on above: Performed By: #### L 100.0100, L500.2500 ####[facility] [address] [place], [address] CO2 [Moles/Vol] 17.1 mmol/L Low 21.0-32.0 [facility] Comment on above: Performed By: #### L 100.0100, L500.2500 ####[facility] [address] [place], [address] Creatinine [Mass/Vol] 0.57 mg/dL Low 0.70-1.20 [facility] Comment on above: Performed By: #### L 100.0100, L500.2500 ####[facility] [address] [place], [address] ECRCL 113.59 ml/min Normal 50-250 [facility] Comment on above: Performed By: #### L 100.0100, L500.2500 ####[facility] [address] [place], [address] GAP 17 High 5-15 [facility] Comment on above: Performed By: #### L 100.0100, L500.2500 ####[facility] [address] [place], [address] GFR/1.73 sq M.predicted among non-blacks MDRD (S/P/Bld) [Vol rate/Area] 103 mL/min/{1.73_m2} Normal >60 [facility] Comment on above: Result Comment: mL/m in/1.73m2 CKD-EPI Creatinine Equation (2020) Performed By: #### L 100.0100, L500.2500 ####[facility] [address] [place], [address] Glucose [Mass/Vol] 172 mg/dL High 70-99 [facility] Comment on above: Performed By: #### L 100.0100, L500.2500 ####[facility] [address] [place], [address] Potassium [Moles/Vol] 4.0 mmol/L Normal 3.3-5.1 [facility] Comment on above: Performed By: #### L 100.0100, L500.2500 ####[facility] [address] [place], [address] Sodium [Moles/Vol] 136 mmol/L Normal 133-145 [facility] Comment on above: Performed By: #### L 100.0100, L500.2500 ####[facility] [address] [place], [address] Urea nitrogen [Mass/Vol] 25 mg/dL High 4-19 [facility] Comment on above: Performed By: #### L 100.0100, L500.2500 ####[facility] [address] [place], [address] Basophil percentageOrdered B y: Bharathi Saldana on 10-20-2024 Basophils/100 WBC (Bld) 0.3 % 0-1 [facility] Comment on above: Performed By: #### L 100.0100, L500.2500 ####[facility] [address] [place], [address] Bedside Glucoseon 10-20-2024 FINGERSTICK GLU 165 mg/dL High 74-106 [facility] Comment on above: Result Comment: SARA GEMENT OF PATIENT CARE PER NURSING PROTOCOL Performed By: #### L 501.080 ####[facility] [address] [place], [address] FINGERSTICK GLU 147 mg/dL High 74-106 [facility] Comment on above: Result Comment: SARA GEMENT OF PATIENT CARE PER NURSING PROTOCOL Performed By: #### L 501.080 ####[facility] [address] [place], [address] FINGERSTICK GLU 182 mg/dL High 74-106 [facility] Comment on above: Result Comment: SARA GEMENT OF PATIENT CARE PER NURSING PROTOCOL Performed By: #### L 501.080 ####[facility] [address] [place], [address] FINGERSTICK GLU 163 mg/dL High 74-106 [facility] Comment on above: Result Comment: SARA GEMENT OF PATIENT CARE PER NURSING PROTOCOL Performed By: #### L 501.080 ####[facility] [address] [place], [address] CBC W/Diff, Automatedon 09-27 Absolute Lymph 0.90 X10 3/uL Normal 0.83-4.51 [facility] Comment on above: Performed By: #### L 100.0100, L500.2500 ####[facility] [address] [place], [address] Absolute Neut 9.4 X10 3/uL High 2.0-7.7 [facility] Comment on above: Performed By: #### L 100.0100, L500.2500 ####[facility] [address] [place], [address] Erythrocyte distribution width (RBC) [Ratio] 14.2 % Normal 11.6-14.6 [facility] Comment on above: Performed By: #### L 100.0100, L500.2500 ####[facility] [address] [place], [address] Hematocrit (Bld) [Volume fraction] 38.8 % Normal 37-47 [facility] Comment on above: Performed By: #### L 100.0100, L500.2500 ####[facility] [address] [place], [address] Hemoglobin (Bld) [Mass/Vol] 12.1 g/dL Normal 12.0-15.0 [facility] Comment on above: Performed By: #### L 100.0100, L500.2500 ####[facility] [address] [place], [address] IG% 0.600 Normal 0.0-0.9 [facility] Comment on above: Result Comment: IG% - Immature Granulocytes (promyelocytes, myelocytes andmetamyelocytes) > 1% indicates that a LEFT SHIFT is Present. Performed By: #### L 100.0100, L500.2500 ####[facility] [address] [place], [address] Lymphocytes/100 WBC (Bld) 7.8 % Low 19-41 [facility] Comment on above: Performed By: #### L 100.0100, L500.2500 ####[facility] [address] [place], [address] MCH (RBC) [Entitic mass] 28.5 pg Normal 27.0-32.0 [facility] Comment on above: Performed By: #### L 100.0100, L500.2500 ####[facility] [address] [place], [address] MCHC (RBC) [Mass/Vol] 31.2 g/dL Low 32-36 [facility] Comment on above: Performed By: #### L 100.0100, L500.2500 ####[facility] [address] [place], [address] MCV (RBC) [Entitic vol] 91.3 fL Normal 81-99 [facility] Comment on above: Performed By: #### L 100.0100, L500.2500 ####[facility] [address] [place], [address] Nucleated RBC (Bld) [#/Vol] 0 10*3/uL Normal 0-5 [facility] Comment on above: Performed By: #### L 100.0100, L500.2500 ####[facility] [address] [place], [address] Platelet mean volume (Bld) [Entitic vol] 10.0 fL Normal 6.2-12.0 [facility] Comment on above: Performed By: #### L 100.0100, L500.2500 ####[facility] [address] [place], [address] Platelets (Bld) [#/Vol] 171 10*3/uL Normal 150-450 [facility] Comment on above: Performed By: #### L 100.0100, L500.2500 ####[facility] [address] [place], [address] RBC (Bld) [#/Vol] 4.25 10*6/uL Normal 4.2-5.4 [facility] Comment on above: Performed By: #### L 100.0100, L500.2500 ####[facility] [address] [place], [address] RDW SD 47.8 fl High 35.1-43.9 [facility] Comment on above: Performed By: #### L 100.0100, L500.2500 ####[facility] [address] [place], [address] WBC (Bld) [#/Vol] 11.5 10*3/uL High 4.4-11.0 [facility] Comment on above: Performed By: #### L 100.0100, L500.2500 ####[facility] [address] [place], [address] Eosinophil percentageOrdered By: Bharathi Saldana on 10-20-2024 Eosinophils/100 WBC (Bld) 0.9 % 0-5 [facility] Comment on above: Performed By: #### L 100.0100, L500.2500 ####[facility] [address] [place], [address] Gram Stainon 10-20-2024 GS List Antibiotics to be Started? none Acceptable Specimen? Yes (<25 Epithelial cells per/lpf) Gram Stain 4+ Gram negative cocco bacillus 4+ White Blood Cells 1+ Gram positive cocci No Epithelial cells Normal [facility] Comment on above: Performed By: #### M 100.2400, M100.2000 ####[facility] [address] [place], [address] Gram stainOrdered By: Sy brown on 10-20-2024 Microscopic observation Gram stain Nom (Unsp spec) [facility] Immature granulocytes/100 WB C Auto (Bld)Ordered By: Bharathi Saldana on 10-20-2024 Immature granulocytes/100 WBC (Bld) 0.600 % 0.0-0.9 [facility] Comment on above: IG% - Immature Granu locytes (promyelocytes, myelocytes and metamyelocytes) > 1% indicates that a LEFT SHIFT is Present. Microbial respiratory cultur eOrdered By: Sy Gr on 10-20-2024 Microorganism identified Cx Nom (Unsp spec) Haemophilus influenzae Abnormal [facility] Monocyte percentageOrdered B y: Bharathi Saldana on 10-20-2024 Monocytes/100 WBC (Bld) 8.6 % 0-10 [facility] Comment on above: Performed By: #### L 100.0100, L500.2500 ####[facility] [address], [address] Neutrophil percentageOrdered By: Bharathi Saldana on 10-20-2024 Neutrophils/100 WBC (Bld) 81.8 % High 47-70 [facility] Comment on above: Performed By: #### L 100.0100, L500.2500 ####[facility] [address] [place], [address] Nucleated red blood cell per centageOrdered By: Bharathi Saldana on 10-20-2024 Nucleated RBC/100 WBC (Bld) [Ratio] 0 % 0-5 [facility] Activated partial thrombopla stin time (aPTT) in platelet poor plasma by coagulation aOrdered By: Sy Gr on 10-19-2024 aPTT Coag (PPP) [Time] 40.1 s High 24.1-36.2 [facility] Bedside Glucoseon 10-19-2024 FINGERSTICK GLU 157 mg/dL High 74-106 [facility] Comment on above: Result Comment: SARA DAYENT OF PATIENT CARE PER NURSING PROTOCOL Performed By: #### L 501.080 ####[facility] [address] [place], [address] Bilirubin, totalOrdered By: Bharathi Saldana on 10-19-2024 Bilirubin [Mass/Vol] 0.37 mg/dL 0.00-1.30 [facility] Blood Gases by CPSon 025 IVANA TEST Positive Normal [facility] Comment on above: Performed By: #### L 9000.0800 ####[facility] [address] [place], [address] Base excess Calc (Bld) [Moles/Vol] -3 mmol/L Low -2 to +2 [facility] Comment on above: Performed By: #### L 9000.0800 ####[facility] [address] [place], [address] Blood Gas Type ART Normal [facility] Comment on above: Performed By: #### L 9000.0800 ####[facility] [address] [place], [address] CO2 [Moles/Vol] 23 mmol/L Normal [facility] Comment on above: Performed By: #### L 9000.0800 ####[facility] [address] [place], [address] FI02 10.0 Normal [facility] Comment on above: Performed By: #### L 9000.0800 ####[facility] [address] [place], [address] HCO3 (Bld) [Moles/Vol] 21.8 mmol/L Low 22-26 [facility] Comment on above: Performed By: #### L 9000.0800 ####[facility] [address] [place], [address] Mode Not entered Normal [facility] Comment on above: Performed By: #### L 9000.0800 ####[facility] [address] [place], [address] O2 Delivery Dev Cannula Normal [facility] Comment on above: Performed By: #### L 9000.0800 ####[facility] [address] [place], [address] pCO2 36.5 mmHg Normal 35-45 [facility] Comment on above: Performed By: #### L 9000.0800 ####[facility] [address] [place], [address] pH (Bld) 7.38 [pH] Normal 7.35-7.45 [facility] Comment on above: Performed By: #### L 9000.0800 ####[facility] [address] [place], [address] PO2 150 mmHG High 75-100 [facility] Comment on above: Performed By: #### L 9000.0800 ####[facility] [address] [place], [address] SITE R Radial Normal [facility] Comment on above: Performed By: #### L 9000.0800 ####[facility] [address] [place], [address] SO2 99 Normal 95-99 [facility] Comment on above: Performed By: #### L 9000.0800 ####[facility] [address] [place], [address] Base excess Calc (Bld) [Moles/Vol] -2 mmol/L Normal -2 to +2 [facility] Comment on above: Performed By: #### L 9000.0800 ####[facility] [address] [place], [address] Blood Gas Type ART Normal [facility] Comment on above: Performed By: #### L 9000.0800 ####[facility] [address] [place], [address] CO2 [Moles/Vol] 25 mmol/L Normal [facility] Comment on above: Performed By: #### L 9000.0800 ####[facility] [address] [place], [address] FI02 5.0 Normal [facility] Comment on above: Performed By: #### L 9000.0800 ####[facility] [address] [place], [address] HCO3 (Bld) [Moles/Vol] 23.7 mmol/L Normal 22-26 [facility] Comment on above: Performed By: #### L 9000.0800 ####[facility] [address] [place], [address] Mode Not entered [facility] Comment on above: Performed By: #### L 9000.0800 ####[facility] [address] [place], [address] O2 Delivery Dev Cannula Normal [facility] Comment on above: Performed By: #### L 9000.0800 ####[facility] [address] [place], [address] pCO2 43.7 mmHg Normal 35-45 [facility] Comment on above: Performed By: #### L 9000.0800 ####[facility] [address] [place], [address] pH (Bld) 7.34 [pH] Low 7.35-7.45 [facility] Comment on above: Performed By: #### L 9000.0800 ####[facility] [address] [place], [address] PO2 57 mmHG Low 75-100 [facility] Comment on above: Performed By: #### L 9000.0800 ####[facility] [address] [place], [address] SITE L Brach Normal [facility] Comment on above: Performed By: #### L 9000.0800 ####[facility] [address] [place], [address] SO2 87 Low 95-99 [facility] Comment on above: Performed By: #### L 9000.0800 ####[facility] [address] [place], [address] CBC W/Diff, Automatedon 04 Absolute Lymph 0.71 X10 3/uL Low 0.83-4.51 [facility] Comment on above: Performed By: #### L 501.5200, L501.9520, L501.2300, L100.0100, L500.4050 ####[facility] [address] [place], [address] Absolute Neut 10.6 X10 3/uL High 2.0-7.7 [facility] Comment on above: Performed By: #### L 501.5200, L501.9520, L501.2300, L100.0100, L500.4050 ####[facility] [address] [place], [address] Basophils/100 WBC (Bld) 0.5 % Normal 0-1 [facility] Comment on above: Performed By: #### L 501.5200, L501.9520, L501.2300, L100.0100, L500.4050 ####[facility] [address] [place], [address] Eosinophils/100 WBC (Bld) 0.8 % Normal 0-5 [facility] Comment on above: Performed By: #### L 501.5200, L501.9520, L501.2300, L100.0100, L500.4050 ####[facility] [address] [place], [address] Erythrocyte distribution width (RBC) [Ratio] 13.9 % Normal 11.6-14.6 [facility] Comment on above: Performed By: #### L 501.5200, L501.9520, L501.2300, L100.0100, L500.4050 ####[facility] [address] [place], [address] Hematocrit (Bld) [Volume fraction] 38.4 % Normal 37-47 [facility] Comment on above: Performed By: #### L 501.5200, L501.9520, L501.2300, L100.0100, L500.4050 ####[facility] [address] [place], [address] Hemoglobin (Bld) [Mass/Vol] 12.3 g/dL Normal 12.0-15.0 [facility] Comment on above: Performed By: #### L 501.5200, L501.9520, L501.2300, L100.0100, L500.4050 ####[facility] [address] [place], [address] IG% 0.500 Normal 0.0-0.9 [facility] Comment on above: Result Comment: IG% - Immature Granulocytes (promyelocytes, myelocytes andmetamyelocytes) > 1% indicates that a LEFT SHIFT is Present. Performed By: #### L 501.5200, L501.9520, L501.2300, L100.0100, L500.4050 ####[facility] [address] [place], [address] Lymphocytes/100 WBC (Bld) 5.7 % Low 19-41 [facility] Comment on above: Performed By: #### L 501.5200, L501.9520, L501.2300, L100.0100, L500.4050 ####[facility] [address] [place], [address] MCH (RBC) [Entitic mass] 28.5 pg Normal 27.0-32.0 [facility] Comment on above: Performed By: #### L 501.5200, L501.9520, L501.2300, L100.0100, L500.4050 ####[facility] [address] [place], [address] MCHC (RBC) [Mass/Vol] 32.0 g/dL Normal 32-36 [facility] Comment on above: Performed By: #### L 501.5200, L501.9520, L501.2300, L100.0100, L500.4050 ####[facility] [address] [place], [address] MCV (RBC) [Entitic vol] 89.1 fL Normal 81-99 [facility] Comment on above: Performed By: #### L 501.5200, L501.9520, L501.2300, L100.0100, L500.4050 ####[facility] [address] [place], [address] Monocytes/100 WBC (Bld) 7.4 % Normal 0-10 [facility] Comment on above: Performed By: #### L 501.5200, L501.9520, L501.2300, L100.0100, L500.4050 ####[facility] [address] [place], [address] Neutrophils/100 WBC (Bld) 85.1 % High 47-70 [facility] Comment on above: Performed By: #### L 501.5200, L501.9520, L501.2300, L100.0100, L500.4050 ####[facility] [address] [place], [address] Nucleated RBC (Bld) [#/Vol] 0 10*3/uL Normal 0-5 [facility] Comment on above: Performed By: #### L 501.5200, L501.9520, L501.2300, L100.0100, L500.4050 ####[facility] [address] [place], [address] Platelet mean volume (Bld) [Entitic vol] 9.8 fL Normal 6.2-12.0 [facility] Comment on above: Performed By: #### L 501.5200, L501.9520, L501.2300, L100.0100, L500.4050 ####[facility] [address] [place], [address] Platelets (Bld) [#/Vol] 159 10*3/uL Normal 150-450 [facility] Comment on above: Performed By: #### L 501.5200, L501.9520, L501.2300, L100.0100, L500.4050 ####[facility] [address] [place], [address] RBC (Bld) [#/Vol] 4.31 10*6/uL Normal 4.2-5.4 [facility] Comment on above: Performed By: #### L 501.5200, L501.9520, L501.2300, L100.0100, L500.4050 ####[facility] [address] [place], [address] RDW SD 45.5 fl High 35.1-43.9 [facility] Comment on above: Performed By: #### L 501.5200, L501.9520, L501.2300, L100.0100, L500.4050 ####[facility] [address] [place], [address] WBC (Bld) [#/Vol] 12.5 10*3/uL High 4.4-11.0 [facility] Comment on above: Performed By: #### L 501.5200, L501.9520, L501.2300, L100.0100, L500.4050 ####[facility] [address] [place], [address] [facility] 10-19-2024 Albumin [Mass/Vol] 3.0 g/dL Low 3.4-4.8 [facility] Comment on above: Performed By: #### L 501.5200, L501.9520, L501.2300, L100.0100, L500.4050 ####[facility] [address] [place], [address] Albumin/Globulin [Mass ratio] 0.8 {ratio} Low 0.9-2.4 [facility] Comment on above: Performed By: #### L 501.5200, L501.9520, L501.2300, L100.0100, L500.4050 ####[facility] [address] [place], [address] ALK PHOS 77 U/L Normal 35-104 [facility] Comment on above: Performed By: #### L 501.5200, L501.9520, L501.2300, L100.0100, L500.4050 ####[facility] [address] [place], [address] ALT [Catalytic activity/Vol] 8 U/L Normal <=34 [facility] Comment on above: Performed By: #### L 501.5200, L501.9520, L501.2300, L100.0100, L500.4050 ####[facility] [address] [place], [address] AST [Catalytic activity/Vol] 11 U/L Normal <=31 [facility] Comment on above: Performed By: #### L 501.5200, L501.9520, L501.2300, L100.0100, L500.4050 ####[facility] [address] [place], [address] Bilirubin [Mass/Vol] 0.37 mg/dL Normal 0.00-1.30 [facility] Comment on above: Performed By: #### L 501.5200, L501.9520, L501.2300, L100.0100, L500.4050 ####[facility] [address] [place], [address] BUN/CRE 23.7 RATIO High 10-20 [facility] Comment on above: Performed By: #### L 501.5200, L501.9520, L501.2300, L100.0100, L500.4050 ####[facility] [address] [place], [address] Calcium [Mass/Vol] 8.6 mg/dL Normal 7.6-11.0 [facility] Comment on above: Performed By: #### L 501.5200, L501.9520, L501.2300, L100.0100, L500.4050 ####[facility] [address] [place], [address] Chloride [Moles/Vol] 105 mmol/L Normal 98-108 [facility] Comment on above: Performed By: #### L 501.5200, L501.9520, L501.2300, L100.0100, L500.4050 ####[facility] [address] [place], [address] CO2 [Moles/Vol] 20.6 mmol/L Low 21.0-32.0 [facility] Comment on above: Performed By: #### L 501.5200, L501.9520, L501.2300, L100.0100, L500.4050 ####[facility] [address] [place], [address] Creatinine [Mass/Vol] 0.65 mg/dL Low 0.70-1.20 [facility] Comment on above: Performed By: #### L 501.5200, L501.9520, L501.2300, L100.0100, L500.4050 ####[facility] [address] [place], [address] ECRCL 99.61 ml/min Normal 50-250 [facility] Comment on above: Performed By: #### L 501.5200, L501.9520, L501.2300, L100.0100, L500.4050 ####[facility] [address] [place], [address] GAP 13 Normal 5-15 [facility] Comment on above: Performed By: #### L 501.5200, L501.9520, L501.2300, L100.0100, L500.4050 ####[facility] [address] [place], [address] GFR/1.73 sq M.predicted among non-blacks MDRD (S/P/Bld) [Vol rate/Area] 100 mL/min/{1.73_m2} Normal >60 [facility] Comment on above: Result Comment: mL/m in/1.73m2 CKD-EPI Creatinine Equation (2020) Performed By: #### L 501.5200, L501.9520, L501.2300, L100.0100, L500.4050 ####[facility] [address] [place], [address] Globulin (S) [Mass/Vol] 3.8 g/dL Normal 2.2-4.2 [facility] Comment on above: Performed By: #### L 501.5200, L501.9520, L501.2300, L100.0100, L500.4050 ####[facility] [address] [place], [address] Glucose [Mass/Vol] 242 mg/dL High 70-99 [facility] Comment on above: Performed By: #### L 501.5200, L501.9520, L501.2300, L100.0100, L500.4050 ####[facility] [address] [place], [address] Potassium [Moles/Vol] 3.6 mmol/L Normal 3.3-5.1 [facility] Comment on above: Performed By: #### L 501.5200, L501.9520, L501.2300, L100.0100, L500.4050 ####[facility] [address] [place], [address] Sodium [Moles/Vol] 139 mmol/L Normal 133-145 [facility] Comment on above: Performed By: #### L 501.5200, L501.9520, L501.2300, L100.0100, L500.4050 ####[facility] [address] [place], [address] T PROT 6.8 g/dL Normal 5.9-8.4 [facility] Comment on above: Performed By: #### L 501.5200, L501.9520, L501.2300, L100.0100, L500.4050 ####[facility] [address] [place], [address] Urea nitrogen [Mass/Vol] 15 mg/dL Normal 4-19 [facility] Comment on above: Performed By: #### L 501.5200, L501.9520, L501.2300, L100.0100, L500.4050 ####[facility] [address] [place], [address] Consultation - Surgicalon Consultation - Surgical Normal [facility] Echo Complete W/ Contraston 10-19-2024 Echo Complete W/ Contrast Normal [facility] Free T3on 10-19-2024 Free T3 [Mass/Vol] 1.9 pg/mL Low 2.18-3.98 [facility] Comment on above: Performed By: #### L 506.0400, L501.88319 ####[facility] [address] [place], [address] Free G8Bfjtoud By: Bharathi jeffries on 10-19-2024 Free T3 [Mass/Vol] 1.9 pg/mL Low 2.18-3.98 [facility] L503.7505on 10-19-2024 Natriuretic peptide B (Bld) [Mass/Vol] 317 pg/mL Normal <=900 [facility] Comment on above: Result Comment: Hear t Failure Unlikely: < 300 pg/mLHeart Failure Likely< 50 Years: > 450 pg/mL50-75 Years: > 900 pg/mL>75 Years: > 1800 pg/mL Performed By: #### L 503.7505 ####[facility] [address] [place], [address] Laboratory - Chemistry and C hemistry - challengeOrdered By: Bharathi Saldana on 10-19-2024 AST [Catalytic activity/Vol] 11 U/L <32 [facility] Magnesiumon 10-19-2024 Magnesium [Mass/Vol] 1.7 mg/dL Normal 1.5-2.2 [facility] Comment on above: Performed By: #### L 501.5200, L501.9520, L501.2300, L100.0100, L500.4050 ####[facility] [address] [place], [address] Magnesium measurement (mass/ volume)Ordered By: Bharathi Saldana on 10-19-2024 Magnesium (Unsp spec) [Mass/Vol] 1.7 mg/dL 1.5-2.2 [facility] Partial Thromboplast Timeon 10-19-2024 aPTT Coag (Bld) [Time] 40.1 s High 24.1-36.2 [facility] Comment on above: Order Comment: Comme nts: heparin drip Performed By: #### L 110.2127 ####[facility] [address] [place], [address] aPTT Coag (Bld) [Time] 45.2 s High 24.1-36.2 [facility] Comment on above: Performed By: #### L 726.5900 ####[facility] [address] [place], [place], [id number] aPTT Coag (Bld) [Time] 40.2 s High 24.1-36.2 [facility] Comment on above: Performed By: #### L 300.4310 ####[facility] [address] [place], [place], [address] Phosphoruson 10-19-2024 Phosphate [Mass/Vol] 3.2 mg/dL Normal 2.7-4.5 [facility] Comment on above: Performed By: #### L 501.5200, L501.9520, L501.2300, L100.0100, L500.4050 ####[facility] [address] [place], [place], [address] Serum globulin measurementOr dered By: Bharathi Saldana on 10-19-2024 Globulin (S) [Mass/Vol] 3.8 g/dL 2.2-4.2 [facility] Serum or plasma alanine smith otransferase (ALT) measurementOrdered By: Bharathi Saldana on 10-19-2024 ALT [Catalytic activity/Vol] 8 U/L <35 [facility] Serum or plasma albumin jasiel urement (mass/volume)Ordered By: Bharathi Saldana on 10-19-2024 Albumin [Mass/Vol] 3.0 g/dL Low 3.4-4.8 [facility] Serum or plasma albumin/glob ulin mass ratioOrdered By: Bharathi Saldana on 10-19-2024 Albumin/Globulin [Mass ratio] 0.8 {ratio} Low 0.9-2.4 [facility] Serum or plasma alkaline quintin sphatase measurementOrdered By: Bharathi Saldana on 10-19-2024 ALP [Catalytic activity/Vol] 77 U/L 35-104 [facility] T4 Free Directon 10-19-2024 T4 FREE DIRECT 1.50 ng/dL High 0.76-1.46 [facility] Comment on above: Performed By: #### L 506.0400, L501.25671 ####[facility] [address] [place], [place], [address] T4 freeOrdered By: Bharathi jeffries on 10-19-2024 Free T4 [Mass/Vol] 1.50 ng/dL High 0.76-1.46 [facility] TSH DL <= 0.005 mIU/L QnOrde red By: Bharathi Saldana on 10-19-2024 TSH Qn 0.106 uIU/mL Low 0.300-4.20 0 [facility] Thyroid Stim Hormone (TSH)on 10-19-2024 TSH 0.106 uIU/mL Low 0.300-4.20 0 [facility] Comment on above: Performed By: #### L 501.5200, L501.9520, L501.2300, L100.0100, L500.4050 ####[facility] [address] [place], [place], [id number] Total proteinOrdered By: Hosea Saldana on 10-19-2024 Protein [Mass/Vol] 6.8 g/dL 5.9-8.4 [facility] Venous Duplex US - Mario Extre mon 10-19-2024 Venous Duplex US - Mario Extrem Normal [facility] Absolute neutrophil countOrd ered By: ED PROVIDER on 10-18-2024 Neutrophils (Bld) [#/Vol] 9.3 10*3/uL High 2.0-7.7 [facility] Anion gap in Serum or Plasma Ordered By: Kyler Hay on 10-18-2024 Anion gap [Moles/Vol] 15 mmol/L 5-15 [facility] Assessment of wrist artery p atency prior to arterial punctureOrdered By: Kyler Hay on 10-18-2024 Ivana Test Positive Normal [facility] Comment on above: Performed By: #### L 9000.0800 ####[facility] [address] [place], [place], [id number] BUN/creatinine ratioOrdered By: Kyler Hay on 10-18-2024 Urea nitrogen/Creatinine [Mass ratio] 23.5 mg/mg High 10- [facility] Base excess Calc (BldV) [Mol es/Vol]Ordered By: Kyler Hay on 10-18-2024 Blood Gas Base Excess -2 mmol/L -2-2 [facility] Basophil percentageOrdered B y: ED PROVIDER on 10-18-2024 Basophils/100 WBC (Bld) 0.7 % 0-1 [facility] Bilirubin, totalOrdered By: Kyler Hay on 10-18-2024 Bilirubin [Mass/Vol] 0.56 mg/dL 0.00-1.30 [facility] Blood bicarbonate measuremen tOrdered By: Kyler Hay on 10-18-2024 Blood Gas Bicarbonate Actual 23.7 mmol/L [facility] CBC W/Diff, Automatedon 09-27 Absolute Lymph 1.28 X10 3/uL Normal 0.83-4.51 [facility] Comment on above: Performed By: #### L 501.2450, L500.4050, L100.0100 ####[facility] [address] [place], [address] Absolute Neut 9.3 X10 3/uL High 2.0-7.7 [facility] Comment on above: Performed By: #### L 501.2450, L500.4050, L100.0100 ####[facility] [address] [place], [address] Basophils/100 WBC (Bld) 0.7 % Normal 0-1 [facility] Comment on above: Performed By: #### L 501.2450, L500.4050, L100.0100 ####[facility] [address] [place], [address] Eosinophils/100 WBC (Bld) 0.8 % Normal 0-5 [facility] Comment on above: Performed By: #### L 501.2450, L500.4050, L100.0100 ####[facility] [address] [place], [address] Erythrocyte distribution width (RBC) [Ratio] 13.9 % Normal 11.6-14.6 [facility] Comment on above: Performed By: #### L 501.2450, L500.4050, L100.0100 ####[facility] [address] [place], [address] Hematocrit (Bld) [Volume fraction] 43.4 % Normal 37-47 [facility] Comment on above: Performed By: #### L 501.2450, L500.4050, L100.0100 ####[facility] [address] [place], [address] Hemoglobin (Bld) [Mass/Vol] 14.1 g/dL Normal 12.0-15.0 [facility] Comment on above: Performed By: #### L 501.2450, L500.4050, L100.0100 ####[facility] [address] [place], [address] IG% 0.300 Normal 0.0-0.9 [facility] Comment on above: Result Comment: IG% - Immature Granulocytes (promyelocytes, myelocytes andmetamyelocytes) > 1% indicates that a LEFT SHIFT is Present. Performed By: #### L 501.2450, L500.4050, L100.0100 ####[facility] [address] [place], [address] Lymphocytes/100 WBC (Bld) 11.1 % Low 19-41 [facility] Comment on above: Performed By: #### L 501.2450, L500.4050, L100.0100 ####[facility] [address] [place], [address] MCH (RBC) [Entitic mass] 28.8 pg Normal 27.0-32.0 [facility] Comment on above: Performed By: #### L 501.2450, L500.4050, L100.0100 ####[facility] [address] [place], [address] MCHC (RBC) [Mass/Vol] 32.5 g/dL Normal 32-36 [facility] Comment on above: Performed By: #### L 501.2450, L500.4050, L100.0100 ####[facility] [address] [place], [address] MCV (RBC) [Entitic vol] 88.8 fL Normal 81-99 [facility] Comment on above: Performed By: #### L 501.2450, L500.4050, L100.0100 ####[facility] [address] [place], [address] Monocytes/100 WBC (Bld) 6.9 % Normal 0-10 [facility] Comment on above: Performed By: #### L 501.2450, L500.4050, L100.0100 ####[facility] [address] [place], [address] Neutrophils/100 WBC (Bld) 80.2 % High 47-70 [facility] Comment on above: Performed By: #### L 501.2450, L500.4050, L100.0100 ####[facility] [address] [place], [address] Nucleated RBC (Bld) [#/Vol] 0 10*3/uL Normal 0-5 [facility] Comment on above: Performed By: #### L 501.2450, L500.4050, L100.0100 ####[facility] [address] [place], [address] Platelet mean volume (Bld) [Entitic vol] 9.8 fL Normal 6.2-12.0 [facility] Comment on above: Performed By: #### L 501.2450, L500.4050, L100.0100 ####[facility] [address] [place], [address] Platelets (Bld) [#/Vol] 186 10*3/uL Normal 150-450 [facility] Comment on above: Performed By: #### L 501.2450, L500.4050, L100.0100 ####[facility] [address] [place], [address] RBC (Bld) [#/Vol] 4.89 10*6/uL Normal 4.2-5.4 [facility] Comment on above: Performed By: #### L 501.2450, L500.4050, L100.0100 ####[facility] [address] [place], [address] RDW SD 45.1 fl High 35.1-43.9 [facility] Comment on above: Performed By: #### L 501.2450, L500.4050, L100.0100 ####[facility] [address] [place], [address] WBC (Bld) [#/Vol] 11.5 10*3/uL High 4.4-11.0 [facility] Comment on above: Performed By: #### L 501.2450, L500.4050, L100.0100 ####[facility] [address] [place], [address] CTA Chest W/WO Contraston CTA Chest W/WO Contrast Normal [facility] Carbon dioxide, total [Moles /volume] in Central venous bloodOrdered By: Kyler Hay on 10-18-2024 CO2 [Moles/Vol] 21.3 mmol/L 21.0-32.0 [facility] Chest PA and Lateralon 10-18 Chest PA and Lateral Normal [facility] Chloride assayOrdered By: Karri Hay on 10-18-2024 Chloride [Moles/Vol] 102 mmol/L 98-108 [facility] Comprehensive Metabolic Prof ilon 10-18-2024 Albumin [Mass/Vol] 3.9 g/dL Normal 3.4-4.8 [facility] Comment on above: Performed By: #### L 501.2450, L500.4050, L100.0100 ####[facility] [address] [place], [address] Albumin/Globulin [Mass ratio] 1.0 {ratio} Normal 0.9-2.4 [facility] Comment on above: Performed By: #### L 501.2450, L500.4050, L100.0100 ####[facility] [address] [place], [address] ALK PHOS 99 U/L Normal 35-104 [facility] Comment on above: Performed By: #### L 501.2450, L500.4050, L100.0100 ####[facility] [address] [place], [address] ALT [Catalytic activity/Vol] 10 U/L Normal <=34 [facility] Comment on above: Performed By: #### L 501.2450, L500.4050, L100.0100 ####[facility] [address] [place], [address] AST [Catalytic activity/Vol] 18 U/L Normal <=31 [facility] Comment on above: Result Comment: Hemo lysis present, Results??could be affected.?? Performed By: #### L 501.2450, L500.4050, L100.0100 ####[facility] [address] [place], [address] Bilirubin [Mass/Vol] 0.56 mg/dL Normal 0.00-1.30 [facility] Comment on above: Performed By: #### L 501.2450, L500.4050, L100.0100 ####[facility] [address] [place], [address] BUN/CRE 23.5 RATIO High 10-20 [facility] Comment on above: Performed By: #### L 501.2450, L500.4050, L100.0100 ####[facility] [address] [place], [address] Calcium [Mass/Vol] 9.5 mg/dL Normal 7.6-11.0 [facility] Comment on above: Performed By: #### L 501.2450, L500.4050, L100.0100 ####[facility] [address] [place], [address] Chloride [Moles/Vol] 102 mmol/L Normal 98-108 [facility] Comment on above: Performed By: #### L 501.2450, L500.4050, L100.0100 ####[facility] [address] [place], [address] CO2 [Moles/Vol] 21.3 mmol/L Normal 21.0-32.0 [facility] Comment on above: Performed By: #### L 501.2450, L500.4050, L100.0100 ####[facility] [address] [place], [address] Creatinine [Mass/Vol] 0.75 mg/dL Normal 0.70-1.20 [facility] Comment on above: Performed By: #### L 501.2450, L500.4050, L100.0100 ####[facility] [address] [place], [address] ECRCL 92.12 ml/min Normal 50-250 [facility] Comment on above: Performed By: #### L 501.2450, L500.4050, L100.0100 ####[facility] [address] [place], [address] GAP 15 Normal 5-15 [facility] Comment on above: Performed By: #### L 501.2450, L500.4050, L100.0100 ####[facility] [address] [place], [address] GFR/1.73 sq M.predicted among non-blacks MDRD (S/P/Bld) [Vol rate/Area] 90 mL/min/{1.73_m2} Normal >60 [facility] Comment on above: Result Comment: mL/m in/1.73m2 CKD-EPI Creatinine Equation (2020) Performed By: #### L 501.2450, L500.4050, L100.0100 ####[facility] [address] [place], [address] Globulin (S) [Mass/Vol] 3.9 g/dL Normal 2.2-4.2 [facility] Comment on above: Performed By: #### L 501.2450, L500.4050, L100.0100 ####[facility] [address] [place], [address] Glucose [Mass/Vol] 224 mg/dL High 70-99 [facility] Comment on above: Performed By: #### L 501.2450, L500.4050, L100.0100 ####[facility] [address] [place], [address] Potassium [Moles/Vol] 4.0 mmol/L Normal 3.3-5.1 [facility] Comment on above: Result Comment: Hemo lysis present, Results??could be affected.?? Performed By: #### L 501.2450, L500.4050, L100.0100 ####[facility] [address] [place], [address] Sodium [Moles/Vol] 139 mmol/L Normal 133-145 [facility] Comment on above: Performed By: #### L 501.2450, L500.4050, L100.0100 ####[facility] [address] [place], [address] T PROT 7.7 g/dL Normal 5.9-8.4 [facility] Comment on above: Performed By: #### L 501.2450, L500.4050, L100.0100 ####[facility] [address] [place], [address] Urea nitrogen [Mass/Vol] 18 mg/dL Normal 4-19 [facility] Comment on above: Performed By: #### L 501.2450, L500.4050, L100.0100 ####[facility] [address] [place], [address] D-Dimer Quantitative (DVT/PE )on 10-18-2024 D-DIMER QUANT 2.69 FEU/ug/m Invalid Interpretation Code 0.27-0.49 [facility] Comment on above: Result Comment: D-Di ok ELEVATED (>0.49): Additional studies and clinicalassessments are indicated to conclude diagnosis of:Deep Vein Thrombosis (DVT) or Pulmonary Embolism (PE)CRITICAL VALUE CALLED TO 2017 Alexey Saenz.RESULTS READ BACK BY SAME. Performed By: #### L 300.8000 ####[facility] [address] [place], [address] D-dimer measurement for deep venous thrombosisOrdered By: Kyler Hay on 10-18-2024 D-Dimer Quantitative (PE/DVT) 2.69 FEU/ug/m High 0.27-0.49 [facility] Comment on above: D-Dimer ELEVATED (>0 .49): Additional studies and clinicalassessments are indicated to conclude diagnosis of:Deep Vein Thrombosis (DVT) or Pulmonary Embolism (PE)CRITICAL VALUE CALLED TO 2017 Alexey Saenz.RESULTS READ BACK BY SAME. Determination of fraction of inspired oxygenOrdered By: Kyler Hay on 10-18-2024 Blood Gas Oxygen Percent 5.0 [facility] Emergency Department Summary on 10-18-2024 Emergency Department Summary Normal [facility] Eosinophil percentageOrdered By: ED PROVIDER on 10-18-2024 Eosinophils/100 WBC (Bld) 0.8 % 0-5 [facility] Erythrocyte distribution wid th (RBC) [Ratio]Ordered By: ED PROVIDER on 10-18-2024 Erythrocyte distribution width (RBC) [Entitic vol] 45.1 fL High 35.1-43.9 [facility] Erythrocyte distribution wid th ratioOrdered By: ED PROVIDER on 10-18-2024 Erythrocyte distribution width (RBC) [Ratio] 13.9 % 11.6-14.6 [facility] Estimation of creatinine kristan aranceOrdered By: Kyler Hay on 10-18-2024 Estimated Creatinine Clearance Calc 92.12 ml/min 50-250 [facility] GFR/1.73 sq M.predicted marcelina g non-blacks MDRD (S/P/Bld) [Vol rate/Area]Ordered By: Kyler Hay on 10-18-2024 Estimated GFR (MDRD) Non-Af Amer 90 >60 [facility] Comment on above: mL/min/1.73m2 CKD-EP I Creatinine Equation (2020) H AND P Exam - Hospitaliston 10-18-2024 H&P Exam - Hospitalist Normal [facility] Hematocrit Auto (Bld) [Volum e fraction]Ordered By: ED PROVIDER on 10-18-2024 Hematocrit (Bld) [Volume fraction] 43.4 % 37-47 [facility] Hemoglobin measurementOrdere d By: ED PROVIDER on 10-18-2024 Hemoglobin (Bld) [Mass/Vol] 14.1 g/dL 12.0-15.0 [facility] Immature granulocytes/100 WB C Auto (Bld)Ordered By: ED PROVIDER on 10-18-2024 Immature granulocytes/100 WBC (Bld) 0.300 % 0.0-0.9 [facility] Comment on above: IG% - Immature Granu locytes (promyelocytes, myelocytes and metamyelocytes) > 1% indicates that a LEFT SHIFT is Present. Influenza virus A and B and SARS-CoV-2 (COVID-19) and Respiratory syncytial virus RNAOrdered By: Kyler Hay on 10-18-2024 SARS-CoV-2 (COVID-19) RNA JADEN+probe Ql (Unsp spec) [facility] International normalized rat io (INR) calculationOrdered By: Kyler Hay on 10-18-2024 INR Coag (Bld) [Relative time] 1.0 {INR} [facility] L499.0042on 10-18-2024 Trop T High Sen 8 ng/L Normal <=14 [facility] Comment on above: Performed By: #### L 499.0042 ####[facility] [address] [place], [place], [address] L501.4021on 10-18-2024 Trop T High Sen 9 ng/L Normal <=14 [facility] Comment on above: Performed By: #### L 501.4021 ####[facility] [address] [place], [place], [address] Laboratory - Chemistry and C hemistry - challengeOrdered By: Kyler Hay on 10-18-2024 AST [Catalytic activity/Vol] 18 U/L <32 [facility] Comment on above: Hemolysis present, R esults could be affected. Lipaseon 10-18-2024 Lipase [Catalytic activity/Vol] 16 U/L Normal 13-75 [facility] Comment on above: Result Comment: Buck truong note:LIPASE revised reference range effective 22.New Lipase methodology. Expected to produce lower valuesthan the previous assay method.NEW Reference Range: 13 - 75 U/L Performed By: #### L 501.2450, L500.4050, L100.0100 ####[facility] [address] [place], [place], [address] Lipase measurementOrdered By : Kyler Hay on 10-18-2024 Lipase [Catalytic activity/Vol] 16 U/L 13-75 [facility] Comment on above: Please note:LIPASE r evised reference range effective 22. New Lipase methodology. Expected to produce lower values than the previous assay method. NEW Reference Range: 13 - 75 U/L Lymphocytes Auto (Unsp spec) [#/Vol]Ordered By: ED PROVIDER on 10-18-2024 Lymphocytes (Bld) [#/Vol] 1.28 10*3/uL 0.83-4.51 [facility] Lymphocytes/100 WBC Auto (Un sp spec)Ordered By: ED PROVIDER on 10-18-2024 Lymphocytes/100 WBC (Bld) 11.1 % Low 19-41 [facility] M100.678on 10-18-2024 M100.678 Pending SARS-CoV-2 (COVID 19) Negative INFLUENZA A Negative INFLUENZA B Negative RSV PCR Negative Normal [facility] Comment on above: Performed By: #### M 100.678 ####[facility] [address] [place], [address] MCV (mean corpuscular volume ) determinationOrdered By: ED PROVIDER on 10-18-2024 MCV (RBC) [Entitic vol] 88.8 fL 81-99 [facility] Mean corpuscular hemoglobin (MCH) determinationOrdered By: ED PROVIDER on 10-18-2024 MCH (RBC) [Entitic mass] 28.8 pg 27.0-32.0 [facility] Mean corpuscular hemoglobin concentration (MCHC) determinationOrdered By: ED PROVIDER on 10-18-2024 MCHC (RBC) [Mass/Vol] 32.5 g/dL 32-36 [facility] Mean platelet volume determi nationOrdered By: ED PROVIDER on 10-18-2024 Platelet mean volume (Bld) [Entitic vol] 9.8 fL 6.2-12.0 [facility] Monocyte percentageOrdered B y: ED PROVIDER on 10-18-2024 Monocytes/100 WBC (Bld) 6.9 % 0-10 [facility] Neutrophil percentageOrdered By: ED PROVIDER on 10-18-2024 Neutrophils/100 WBC (Bld) 80.2 % High 47-70 [facility] No Panel InformationOrdered By: Kyler Hay on 10-18-2024 Blood Gas Sample Site L Brach [facility] Blood Gas Specimen Type ART [facility] Blood Gas Vent Mode Not entered [facility] Oxygen Delivery Device Cannula [facility] Nucleated red blood cell per centageOrdered By: ED PROVIDER on 10-18-2024 Nucleated RBC/100 WBC (Bld) [Ratio] 0 % 0-5 [facility] Oxygen saturation measuremen tOrdered By: Kyler Hay on 10-18-2024 Blood Gas Oxygen Saturation 87 % Low 95-99 [facility] Partial Thromboplast Timeon 10-18-2024 aPTT Coag (Bld) [Time] 24.8 s Normal 24.1-36.2 [facility] Comment on above: Performed By: #### L 300.3900, L300.4310 ####[facility] [address] [place], [place], [id number] Partial pressure of carbon d ioxide measurementOrdered By: Kyler Hay on 10-18-2024 Arterial Blood Partial Pressure CO2 43.7 mmHg 35-45 [facility] Partial pressure of oxygen m easurementOrdered By: Kyler Hay on 10-18-2024 Arterial Blood Partial Pressure O2 57 mmHG Low 75-100 [facility] Platelet countOrdered By: ED PROVIDER on 10-18-2024 Platelets (Bld) [#/Vol] 186 10*3/uL 150-450 [facility] Potassium (Unsp spec) [Mass/ Vol]Ordered By: Kyler Hay on 10-18-2024 Potassium [Moles/Vol] 4.0 mmol/L 3.3-5.1 [facility] Comment on above: Hemolysis present, R esults could be affected. Prothrombin Time w/INRon INR Coag (PPP) [Relative time] 1.0 {INR} Normal [facility] Comment on above: Performed By: #### L 300.3900, L300.4310 ####[facility] [address] [place], [place], [id number] PT Coag (PPP) [Time] 13.2 s Normal 11.7-14.9 [facility] Comment on above: Performed By: #### L 300.3900, L300.4310 ####[facility] [address] [place], [place], [address] Prothrombin timeOrdered By: Kyler Hay on 10-18-2024 PT Coag (PPP) [Time] 13.2 s 11.7-14.9 [facility] RBC Auto (Bld) [#/Vol]Ordere d By: ED PROVIDER on 10-18-2024 RBC (Bld) [#/Vol] 4.89 10*6/uL 4.2-5.4 [facility] Serum creatinine measurement (mass/volume)Ordered By: Kyler Hay on 10-18-2024 Creatinine [Mass/Vol] 0.75 mg/dL 0.70-1.20 [facility] Serum globulin measurementOr dered By: Kyler Hay on 10-18-2024 Globulin (S) [Mass/Vol] 3.9 g/dL 2.2-4.2 [facility] Serum glucose measurement (m ass/volume)Ordered By: Kyler Hay on 10-18-2024 Glucose [Mass/Vol] 224 mg/dL High 70-99 [facility] Serum or plasma alanine smith otransferase (ALT) measurementOrdered By: Kyler Hay on 10-18-2024 ALT [Catalytic activity/Vol] 10 U/L <35 [facility] Serum or plasma albumin jasiel urement (mass/volume)Ordered By: Kyler Reaves on 10-18-2024 Albumin [Mass/Vol] 3.9 g/dL 3.4-4.8 [facility] Serum or plasma albumin/glob ulin mass ratioOrdered By: Kyler Hay on 10-18-2024 Albumin/Globulin [Mass ratio] 1.0 {ratio} 0.9-2.4 [facility] Serum or plasma alkaline quintin sphatase measurementOrdered By: Kyler Hay on 10-18-2024 ALP [Catalytic activity/Vol] 99 U/L 35-104 [facility] Serum or plasma calcium jasiel urement (mass/volume)Ordered By: Kyler Reaves on 10-18-2024 Calcium [Mass/Vol] 9.5 mg/dL 7.6-11.0 [facility] Serum or plasma urea nitroge n measurement (mass/volume)Ordered By: Kyler Hay on 10-18-2024 Urea nitrogen [Mass/Vol] 18 mg/dL 4-19 [facility] Sodium levelOrdered By: Cresencio Hay on 10-18-2024 Sodium [Moles/Vol] 139 mmol/L 133-145 [facility] Total carbon dioxide measure mentOrdered By: Kyler Hay on 10-18-2024 Blood Gas Total CO2 25 mmol/L [facility] Total proteinOrdered By: Bossman Hay on 10-18-2024 Protein [Mass/Vol] 7.7 g/dL 5.9-8.4 [facility] Troponin T.cardiac High sens itivity method [Mass/Vol]Ordered By: Kyler Reaves on 10-18-2024 Troponin T High Sensitivity 2 Hour 8 ng/L <14 [facility] Troponin T High Sensitivity 9 ng/L <14 [facility] Troponin T.cardiac [Mass/vol ume] in Serum or Plasma by High sensitivity methodOrdered By: Kyler Hay on 10-18-2024 Troponin T.cardiac High sensitivity method [Mass/Vol] 8 ng/L <14 [facility] Troponin T.cardiac High sensitivity method [Mass/Vol] 9 ng/L <14 [facility] White blood cell (WBC) count Ordered By: ED PROVIDER on 10-18-2024 WBC (Bld) [#/Vol] 11.5 10*3/uL High 4.4-11.0 [facility] aPTT Coag (PPP) [Time]Ordere d By: Kyler Hay on 04-23-2025 aPTT Coag (Bld) [Time] 24.8 s 24.1-36.2 [facility] pH (Unsp spec)Ordered By: Karri Hay on 10-18-2024 Blood Gas pH 7.34 Low 7.35-7.45 [facility] Absolute lymphocyte countOrd ered By: Diana Ramos on 08-22-2024 Lymphocytes Auto (Unsp spec) [#/Vol] 1.48 10*3/uL 0.83-4.51 [facility] Absolute neutrophil countOrd ered By: Diana Ramos on 08-22-2024 Neutrophils (Bld) [#/Vol] 4.3 10*3/uL 2.0-7.7 [facility] Automated lymphocyte count a s percentage of total leukocytesOrdered By: Diana Ramos on 08-22-2024 Lymphocytes/100 WBC Auto (Unsp spec) 22.9 % 19- [facility] BUN/creatinine ratioOrdered By: Diana Ramos on 08-22-2024 Urea nitrogen/Creatinine [Mass ratio] 35.9 mg/mg High 10-20 [facility] Basophil percentageOrdered B y: Diana Ramos on 08-22-2024 Basophils/100 WBC (Bld) 0.6 % 0-1 [facility] Bilirubin, totalOrdered By: Dianaprasanna Ramos on 08-22-2024 Bilirubin [Mass/Vol] 0.52 mg/dL 0.00-1.30 [facility] CBC W/Diff, Automatedon 07-30 Absolute Lymph 1.48 X10 3/uL Normal 0.83-4.51 [facility] Comment on above: Performed By: #### L 500.4050, L100.0100 ####[facility] [address] [place], [address] Absolute Neut 4.3 X10 3/uL Normal 2.0-7.7 [facility] Comment on above: Performed By: #### L 500.4050, L100.0100 ####[facility] [address] [place], [address] Basophils/100 WBC (Bld) 0.6 % Normal 0-1 [facility] Comment on above: Performed By: #### L 500.4050, L100.0100 ####[facility] [address] [place], [address] Eosinophils/100 WBC (Bld) 3.2 % Normal 0-5 [facility] Comment on above: Performed By: #### L 500.4050, L100.0100 ####[facility] [address] [place], [address] Erythrocyte distribution width (RBC) [Ratio] 14.3 % Normal 11.6-14.6 [facility] Comment on above: Performed By: #### L 500.4050, L100.0100 ####[facility] [address] [place], [address] Hematocrit (Bld) [Volume fraction] 46.7 % Normal 37-47 [facility] Comment on above: Performed By: #### L 500.4050, L100.0100 ####[facility] [address] [place], [address] Hemoglobin (Bld) [Mass/Vol] 14.8 g/dL Normal 12.0-15.0 [facility] Comment on above: Performed By: #### L 500.4050, L100.0100 ####[facility] [address] [place], [address] IG% 0.300 Normal 0.0-0.9 [facility] Comment on above: Result Comment: IG% - Immature Granulocytes (promyelocytes, myelocytes andmetamyelocytes) > 1% indicates that a LEFT SHIFT is Present. Performed By: #### L 500.4050, L100.0100 ####[facility] [address] [place], [address] Lymphocytes/100 WBC (Bld) 22.9 % Normal 19-41 [facility] Comment on above: Performed By: #### L 500.4050, L100.0100 ####[facility] [address] [place], [address] MCH (RBC) [Entitic mass] 28.2 pg Normal 27.0-32.0 [facility] Comment on above: Performed By: #### L 500.4050, L100.0100 ####[facility] [address] [place], [address] MCHC (RBC) [Mass/Vol] 31.7 g/dL Low 32-36 [facility] Comment on above: Performed By: #### L 500.4050, L100.0100 ####[facility] [address] [place], [address] MCV (RBC) [Entitic vol] 89.1 fL Normal 81-99 [facility] Comment on above: Performed By: #### L 500.4050, L100.0100 ####[facility] [address] [place], [address] Monocytes/100 WBC (Bld) 7.0 % Normal 0-10 [facility] Comment on above: Performed By: #### L 500.4050, L100.0100 ####[facility] [address] [place], [address] Neutrophils/100 WBC (Bld) 66.0 % Normal 47-70 [facility] Comment on above: Performed By: #### L 500.4050, L100.0100 ####[facility] [address] [place], [address] Nucleated RBC (Bld) [#/Vol] 0 10*3/uL Normal 0-5 [facility] Comment on above: Performed By: #### L 500.4050, L100.0100 ####[facility] [address] [place], [address] Platelet mean volume (Bld) [Entitic vol] 10.2 fL Normal 6.2-12.0 [facility] Comment on above: Performed By: #### L 500.4050, L100.0100 ####[facility] [address] [place], [address] Platelets (Bld) [#/Vol] 211 10*3/uL Normal 150-450 [facility] Comment on above: Performed By: #### L 500.4050, L100.0100 ####[facility] [address] [place], [address] RBC (Bld) [#/Vol] 5.24 10*6/uL Normal 4.2-5.4 [facility] Comment on above: Performed By: #### L 500.4050, L100.0100 ####[facility] [address] [place], [address] RDW SD 46.0 fl High 35.1-43.9 [facility] Comment on above: Performed By: #### L 500.4050, L100.0100 ####[facility] [address] [place], [address] WBC (Bld) [#/Vol] 6.5 10*3/uL Normal 4.4-11.0 [facility] Comment on above: Performed By: #### L 500.4050, L100.0100 ####[facility] [address] [place], [address] Comprehensive Metabolic Prof ilon 08-22-2024 Albumin [Mass/Vol] 4.0 g/dL Normal 3.4-4.8 [facility] Comment on above: Performed By: #### L 500.4050 ####[facility] [address] [place], [address] Albumin/Globulin [Mass ratio] 1.1 {ratio} Normal 0.9-2.4 [facility] Comment on above: Performed By: #### L 500.4050 ####[facility] [address] [place], [address] ALK PHOS 101 U/L Normal 35-104 [facility] Comment on above: Performed By: #### L 500.4050 ####[facility] [address] [place], [address] ALT [Catalytic activity/Vol] 13 U/L Normal <=34 [facility] Comment on above: Performed By: #### L 500.4050 ####[facility] [address] [place], [address] Anion gap [Moles/Vol] 14 mmol/L Normal 5-15 [facility] Comment on above: Performed By: #### L 500.4050 ####[facility] [address] [place], [address] AST [Catalytic activity/Vol] 17 U/L Normal <=31 [facility] Comment on above: Performed By: #### L 500.4050 ####[facility] [address] [place], [address] Bilirubin [Mass/Vol] 0.52 mg/dL Normal 0.00-1.30 [facility] Comment on above: Performed By: #### L 500.4050 ####[facility] [address] [place], [address] BUN/CRE 35.9 RATIO High 10-20 [facility] Comment on above: Performed By: #### L 500.4050 ####[facility] [address] [place], [address] Calcium [Mass/Vol] 10.0 mg/dL Normal 7.6-11.0 [facility] Comment on above: Performed By: #### L 500.4050 ####[facility] [address] [place], [address] Chloride [Moles/Vol] 102 mmol/L Normal 96-108 [facility] Comment on above: Performed By: #### L 500.4050 ####[facility] [address] [place], [address] CO2 [Moles/Vol] 24.0 mmol/L Normal 22.0-29.0 [facility] Comment on above: Performed By: #### L 500.4050 ####[facility] [address] [place], [address] Creatinine [Mass/Vol] 0.8 mg/dL Normal 0.6-1.0 [facility] Comment on above: Performed By: #### L 500.4050 ####[facility] [address] [place], [address] GFR/1.73 sq M.predicted among non-blacks MDRD (S/P/Bld) [Vol rate/Area] 90 mL/min/{1.73_m2} Normal >60 [facility] Comment on above: Result Comment: mL/m in/1.73m2 CKD-EPI Creatinine Equation (2020) Performed By: #### L 500.4050 ####[facility] [address] [place], [address] Globulin (S) [Mass/Vol] 3.8 g/dL Normal 2.2-4.2 [facility] Comment on above: Performed By: #### L 500.4050 ####[facility] [address] [place], [address] Glucose [Mass/Vol] 187 mg/dL High 70-99 [facility] Comment on above: Performed By: #### L 500.4050 ####[facility] [address] [place], [address] Potassium [Moles/Vol] 4.3 mmol/L Normal 3.3-5.1 [facility] Comment on above: Performed By: #### L 500.4050 ####[facility] [address] [place], [address] Sodium [Moles/Vol] 140 mmol/L Normal 133-145 [facility] Comment on above: Performed By: #### L 500.4050 ####[facility] [address] [place], [address] T PROT 7.8 g/dL Normal 5.9-8.4 [facility] Comment on above: Performed By: #### L 500.4050 ####[facility] [address] [place], [address] Urea nitrogen [Mass/Vol] 27 mg/dL High 4-19 [facility] Comment on above: Performed By: #### L 500.4050 ####[facility] [address] [place], [address] ALB Normal 3.4-4.8 [facility] Comment on above: Result Comment: PUTT ING UNDER DIFFERENT REQ Performed By: #### L 500.4050, L100.0100 ####[facility] [address] [place], [address] ALK PHOS Normal 45-117 [facility] Comment on above: Result Comment: PUTT ING UNDER DIFFERENT REQ Performed By: #### L 500.4050, L100.0100 ####[facility] [address] [place], [address] ALT Normal 13-56 [facility] Comment on above: Result Comment: PUTT ING UNDER DIFFERENT REQ Performed By: #### L 500.4050, L100.0100 ####[facility] [address] [place], [address] AST Normal 15-37 [facility] Comment on above: Result Comment: PUTT ING UNDER DIFFERENT REQ Performed By: #### L 500.4050, L100.0100 ####[facility] [address] [place], [address] BUN Normal 4-19 [facility] Comment on above: Result Comment: PUTT ING UNDER DIFFERENT REQ Performed By: #### L 500.4050, L100.0100 ####[facility] [address] [place], [address] BUN/CRE Normal 10-20 [facility] Comment on above: Result Comment: PUTT ING UNDER DIFFERENT REQ Performed By: #### L 500.4050, L100.0100 ####[facility] [address] [place], [address] Calcium Normal 8.5-10.1 [facility] Comment on above: Result Comment: PUTT ING UNDER DIFFERENT REQ Performed By: #### L 500.4050, L100.0100 ####[facility] [address] [place], [address] CL Normal 98-107 [facility] Comment on above: Result Comment: PUTT ING UNDER DIFFERENT REQ Performed By: #### L 500.4050, L100.0100 ####[facility] [address] [place], [address] CO2 Normal 21.0-32.0 [facility] Comment on above: Result Comment: PUTT ING UNDER DIFFERENT REQ Performed By: #### L 500.4050, L100.0100 ####[facility] [address] [place], [address] CREAT,SERUM Normal 0.6-1.0 [facility] Comment on above: Result Comment: PUTT ING UNDER DIFFERENT REQ Performed By: #### L 500.4050, L100.0100 ####[facility] [address] [place], [address] eGFR Normal >60 [facility] Comment on above: Result Comment: PUTT ING UNDER DIFFERENT REQ Performed By: #### L 500.4050, L100.0100 ####[facility] [address] [place], [address] GAP Normal 5-15 [facility] Comment on above: Result Comment: PUTT ING UNDER DIFFERENT REQ Performed By: #### L 500.4050, L100.0100 ####[facility] [address] [place], [address] GLU Normal 70-99 [facility] Comment on above: Result Comment: PUTT ING UNDER DIFFERENT REQ Performed By: #### L 500.4050, L100.0100 ####[facility] [address] [place], [address] Potassium Normal 3.5-5.1 [facility] Comment on above: Result Comment: PUTT ING UNDER DIFFERENT REQ Performed By: #### L 500.4050, L100.0100 ####[facility] [address] [place], [address] T BILI Normal 0.20-1.00 [facility] Comment on above: Result Comment: PUTT ING UNDER DIFFERENT REQ Performed By: #### L 500.4050, L100.0100 ####[facility] [address] [place], [address] T PROT Normal 5.9-8.4 [facility] Comment on above: Result Comment: PUTT ING UNDER DIFFERENT REQ Performed By: #### L 500.4050, L100.0100 ####[facility] [address] [place], [address] Comprehensive Metabolic Profil Normal 136-145 [facility] Comment on above: Result Comment: PUTT ING UNDER DIFFERENT REQ Performed By: #### L 500.4050, L100.0100 ####[facility] [address] [place], [address] Creatinine [Moles/Vol]Ordere d By: Diana Ramos on 08-22-2024 Creatinine [Mass/Vol] 0.8 mg/dL 0.6-1.0 [facility] Eosinophil percentageOrdered By: Diana Ramos 08-22-2024 Eosinophils/100 WBC (Bld) 3.2 % 0-5 [facility] Erythrocyte distribution wid th ratioOrdered By: Diana Ramos on 08-22-2024 Erythrocyte distribution width (RBC) [Ratio] 14.3 % 11.6-14.6 [facility] Erythrocyte distribution wid th standard deviationOrdered By: Diana Ramos on 08-22-2024 Erythrocyte distribution width (RBC) [Entitic vol] 46.0 fL High 35.1-43.9 [facility] Erythrocyte distribution width (RBC) [Ratio] 46.0 fl High 35.1-43.9 [facility] GFR/1.73 sq M.predicted marcelina g non-blacks MDRD (S/P/Bld) [Vol rate/Area]Ordered By: Diana Ramos on 08-22-2024 Estimated GFR (MDRD) Non-Af Amer 90 >60 [facility] Comment on above: mL/min/1.73m2 CKD-EP I Creatinine Equation (2020) Glomerular filtration rate ( GFR) estimation/1.73 sq m using serum, plasma, or whole bOrdered By: Diana Ramos 08-22-2024 GFR/1.73 sq M.predicted among non-blacks MDRD (S/P/Bld) [Vol rate/Area] 90 mL/min/{1.73_m2} >60 [facility] Comment on above: mL/min/1.73m2 CKD-EP I Creatinine Equation (2020) Hematocrit Auto (Bld) [Volum e fraction]Ordered By: Diana Ramos on 08-22-2024 Hematocrit (Bld) [Volume fraction] 46.7 % 37-47 [facility] Hemoglobin measurementOrdere d By: Diana Ramos on 08-22-2024 Hemoglobin (Bld) [Mass/Vol] 14.8 g/dL 12.0-15.0 [facility] Immature granulocytes/100 WB C Auto (Bld)Ordered By: Diana Ramos on 08-22-2024 Immature granulocytes/100 WBC (Bld) 0.300 % 0.0-0.9 [facility] Comment on above: IG% - Immature Granu locytes (promyelocytes, myelocytes and metamyelocytes) > 1% indicates that a LEFT SHIFT is Present. Laboratory - Chemistry and C hemistry - challengeOrdered By: Diana Ramos on 08-22-2024 AST [Catalytic activity/Vol] 17 U/L <32 [facility] Lymphocytes Auto (Unsp spec) [#/Vol]Ordered By: Diana Ramos on 08-22-2024 Lymphocytes (Bld) [#/Vol] 1.48 10*3/uL 0.83-4.51 [facility] Lymphocytes/100 WBC Auto (Un sp spec)Ordered By: Diana Ramos on 08-22-2024 Lymphocytes/100 WBC (Bld) 22.9 % 19-41 [facility] MCV (mean corpuscular volume ) determinationOrdered By: Diana Ramos on 08-22-2024 MCV (RBC) [Entitic vol] 89.1 fL 81-99 [facility] Mean corpuscular hemoglobin (MCH) determinationOrdered By: Diana Ramos on 08-22-2024 MCH (RBC) [Entitic mass] 28.2 pg 27.0-32.0 [facility] Mean corpuscular hemoglobin concentration (MCHC) determinationOrdered By: Diana Ramos on 08-22-2024 MCHC (RBC) [Mass/Vol] 31.7 g/dL Low 32-36 [facility] Mean platelet volume determi nationOrdered By: Diana Ramos on 08-22-2024 Platelet mean volume (Bld) [Entitic vol] 10.2 fL 6.2-12.0 [facility] Monocyte percentageOrdered B y: Diana Ramos on 08-22-2024 Monocytes/100 WBC (Bld) 7.0 % 0-10 [facility] Neutrophil percentageOrdered By: Diana Ramos on 08-22-2024 Neutrophils/100 WBC (Bld) 66.0 % 47-70 [facility] Nucleated red blood cell per centageOrdered By: Diana Ramos on 08-22-2024 Nucleated RBC/100 WBC (Bld) [Ratio] 0 % 0-5 [facility] Platelet countOrdered By: Sanaz Ramos on 08-22-2024 Platelets (Bld) [#/Vol] 211 10*3/uL 150-450 [facility] RBC Auto (Bld) [#/Vol]Ordere d By: Diana Ramos on 08-22-2024 RBC (Bld) [#/Vol] 5.24 10*6/uL 4.2-5.4 [facility] Serum globulin measurementOr dered By: Diana Ramos on 08-22-2024 Globulin (S) [Mass/Vol] 3.8 g/dL 2.2-4.2 [facility] Serum glucose measurement (m ass/volume)Ordered By: Diana Ramos on 08-22-2024 Glucose [Mass/Vol] 187 mg/dL High 70-99 [facility] Serum or plasma alanine smith otransferase (ALT) measurementOrdered By: Diana Ramos on 08-22-2024 ALT [Catalytic activity/Vol] 13 U/L <35 [facility] Serum or plasma albumin jasiel urement (mass/volume)Ordered By: Diana Ramos on 08-22-2024 Albumin [Mass/Vol] 4.0 g/dL 3.4-4.8 [facility] Serum or plasma albumin/glob ulin mass ratioOrdered By: Diana Ramos on 08-22-2024 Albumin/Globulin [Mass ratio] 1.1 {ratio} 0.9-2.4 [facility] Serum or plasma alkaline quintin sphatase measurementOrdered By: Diana Ramos on 08-22-2024 ALP [Catalytic activity/Vol] 101 U/L 35-104 [facility] Serum or plasma anion gap de termination (moles/volume)Ordered By: Diana Ramos on 08-22-2024 Anion gap [Moles/Vol] 14 mmol/L 5-15 [facility] Serum or plasma calcium jasiel urement (mass/volume)Ordered By: Diana Ramos on 08-22-2024 Calcium [Mass/Vol] 10.0 mg/dL 7.6-11.0 [facility] Serum or plasma creatinine m easurement (moles/volume)Ordered By: Diana Ramos on 08-22-2024 Creatinine [Moles/Vol] 0.8 mg/dL 0.6-1.0 [facility] Serum or plasma potassium me asurementOrdered By: Diana Ramos on 08-22-2024 Potassium [Moles/Vol] 4.3 mmol/L 3.3-5.1 [facility] Serum or plasma sodium measu rement (moles/volume)Ordered By: Diana Ramos on 08-22-2024 Sodium [Moles/Vol] 140 mmol/L 133-145 [facility] Serum or plasma urea nitroge n measurement (mass/volume)Ordered By: Diana Ramos on 08-22-2024 Urea nitrogen [Mass/Vol] 27 mg/dL High 4-19 [facility] Total proteinOrdered By: Katarina Ramos on 08-22-2024 Protein [Mass/Vol] 7.8 g/dL 5.9-8.4 [facility] White blood cell (WBC) count Ordered By: Diana Ramos on 08-22-2024 WBC (Bld) [#/Vol] 6.5 10*3/uL 4.4-11.0 [facility] Absolute neutrophil countOrd ered By: Diana Ramos on 05-29-2024 Neutrophils (Bld) [#/Vol] 4.1 10*3/uL 2.0-7.7 [facility] Albumin to globulin ratioOrd ered By: Diana Ramos on 05-29-2024 Albumin/Globulin [Mass ratio] 0.9 {ratio} 0.9-2.4 [facility] Basophil percentageOrdered B y: Diana Ramos on 05-29-2024 Basophils/100 WBC (Bld) 0.9 % 0-1 [facility] Bilirubin, totalOrdered By: Diana Ramos on 05-29-2024 Bilirubin [Mass/Vol] 0.40 mg/dL 0.20-1.00 [facility] Comment on above: For patients on eltr ombopag therapy, use of Dimension Bascom TBIL is not recommended. Blood urea nitrogen (BUN)/cr eatinine ratioOrdered By: Diana Ramos on 05-29-2024 Urea nitrogen/Creatinine [Mass ratio] 23.8 mg/mg High 10-20 [facility] CBC W/Diff, Automatedon 12 Absolute Lymph 1.82 X10 3/uL Normal 0.83-4.51 [facility] Comment on above: Performed By: #### L 500.4050, L100.0100 ####[facility] [address] [place], [address] Absolute Neut 4.1 X10 3/uL Normal 2.0-7.7 [facility] Comment on above: Performed By: #### L 500.4050, L100.0100 ####[facility] [address] [place], [address] Basophils/100 WBC (Bld) 0.9 % Normal 0-1 [facility] Comment on above: Performed By: #### L 500.4050, L100.0100 ####[facility] [address] [place], [address] Eosinophils/100 WBC (Bld) 4.6 % Normal 0-5 [facility] Comment on above: Performed By: #### L 500.4050, L100.0100 ####[facility] [address] [place], [address] Erythrocyte distribution width (RBC) [Ratio] 14.0 % Normal 11.6-14.6 [facility] Comment on above: Performed By: #### L 500.4050, L100.0100 ####[facility] [address] [place], [address] Hematocrit (Bld) [Volume fraction] 46.3 % Normal 37-47 [facility] Comment on above: Performed By: #### L 500.4050, L100.0100 ####[facility] [address] [place], [address] Hemoglobin (Bld) [Mass/Vol] 14.6 g/dL Normal 12.0-15.0 [facility] Comment on above: Performed By: #### L 500.4050, L100.0100 ####[facility] [address] [place], [address] IG% 0.300 Normal 0.0-0.9 [facility] Comment on above: Result Comment: IG% - Immature Granulocytes (promyelocytes, myelocytes andmetamyelocytes) > 1% indicates that a LEFT SHIFT is Present. Performed By: #### L 500.4050, L100.0100 ####[facility] [address] [place], [address] Lymphocytes/100 WBC (Bld) 26.9 % Normal 19-41 [facility] Comment on above: Performed By: #### L 500.4050, L100.0100 ####[facility] [address] [place], [address] MCH (RBC) [Entitic mass] 28.3 pg Normal 27.0-32.0 [facility] Comment on above: Performed By: #### L 500.4050, L100.0100 ####[facility] [address] [place], [address] MCHC (RBC) [Mass/Vol] 31.5 g/dL Low 32-36 [facility] Comment on above: Performed By: #### L 500.4050, L100.0100 ####[facility] [address] [place], [address] MCV (RBC) [Entitic vol] 89.9 fL Normal 81-99 [facility] Comment on above: Performed By: #### L 500.4050, L100.0100 ####[facility] [address] [place], [address] Monocytes/100 WBC (Bld) 7.5 % Normal 0-10 [facility] Comment on above: Performed By: #### L 500.4050, L100.0100 ####[facility] [address] [place], [address] Neutrophils/100 WBC (Bld) 59.8 % Normal 47-70 [facility] Comment on above: Performed By: #### L 500.4050, L100.0100 ####[facility] [address] [place], [address] Nucleated RBC (Bld) [#/Vol] 0 10*3/uL Normal 0-5 [facility] Comment on above: Performed By: #### L 500.4050, L100.0100 ####[facility] [address] [place], [address] Platelet mean volume (Bld) [Entitic vol] 10.5 fL Normal 6.2-12.0 [facility] Comment on above: Performed By: #### L 500.4050, L100.0100 ####[facility] [address] [place], [address] Platelets (Bld) [#/Vol] 200 10*3/uL Normal 150-450 [facility] Comment on above: Performed By: #### L 500.4050, L100.0100 ####[facility] [address] [place], [address] RBC (Bld) [#/Vol] 5.15 10*6/uL Normal 4.2-5.4 [facility] Comment on above: Performed By: #### L 500.4050, L100.0100 ####[facility] [address] [place], [address] RDW SD 45.5 fl High 35.1-43.9 [facility] Comment on above: Performed By: #### L 500.4050, L100.0100 ####[facility] [address] [place], [address] WBC (Bld) [#/Vol] 6.8 10*3/uL Normal 4.4-11.0 [facility] Comment on above: Performed By: #### L 500.4050, L100.0100 ####[facility] [address] [place], [address] Carbon dioxide measurementOr dered By: Diana Ramos on 05-29-2024 CO2 [Moles/Vol] 27.0 mmol/L 21.0-32.0 [facility] Chloride measurementOrdered By: Diana Ramos on 05-29-2024 Chloride [Moles/Vol] 107 mmol/L 98-107 [facility] Comprehensive Metabolic Prof ilon 05-29-2024 Albumin [Mass/Vol] 3.7 g/dL Normal 3.2-5.0 [facility] Comment on above: Performed By: #### L 500.4050, L100.0100 ####[facility] [address] [place], [address] Albumin/Globulin [Mass ratio] 0.9 {ratio} Normal 0.9-2.4 [facility] Comment on above: Performed By: #### L 500.4050, L100.0100 ####[facility] [address] [place], [address] ALK P 97 U/L Normal 45-117 [facility] Comment on above: Performed By: #### L 500.4050, L100.0100 ####[facility] [address] [place], [address] ALT [Catalytic activity/Vol] 16 U/L Normal 13-56 [facility] Comment on above: Performed By: #### L 500.4050, L100.0100 ####[facility] [address] [place], [address] AST [Catalytic activity/Vol] 10 U/L Low 15-37 [facility] Comment on above: Performed By: #### L 500.4050, L100.0100 ####[facility] [address] [place], [address] Bilirubin [Mass/Vol] 0.40 mg/dL Normal 0.20-1.00 [facility] Comment on above: Result Comment: For patients on eltrombopag therapy, use of Dimension Bascom TBIL is not recommended. Performed By: #### L 500.4050, L100.0100 ####[facility] [address] [place], [address] BUN/CRE 23.8 RATIO High 10-20 [facility] Comment on above: Performed By: #### L 500.4050, L100.0100 ####[facility] [address] [place], [address] CA,Total 9.8 mg/dL Normal 8.5-10.1 [facility] Comment on above: Performed By: #### L 500.4050, L100.0100 ####[facility] [address] [place], [address] Chloride [Moles/Vol] 107 mmol/L Normal 98-107 [facility] Comment on above: Performed By: #### L 500.4050, L100.0100 ####[facility] [address] [place], [address] CO2 [Moles/Vol] 27.0 mmol/L Normal 21.0-32.0 [facility] Comment on above: Performed By: #### L 500.4050, L100.0100 ####[facility] [address] [place], [address] Creatinine [Mass/Vol] 0.80 mg/dL Normal 0.55-1.02 [facility] Comment on above: Result Comment: The validity of the calculated GFR GFRAA in patients over70 years has not been determined. Clinical correlation isessential. Performed By: #### L 500.4050, L100.0100 ####[facility] [address] [place], [address] EST GFR - AA 94 mL/min Normal >60 [facility] Comment on above: Result Comment: Afri can Nigerian GFR Calc Performed By: #### L 500.4050, L100.0100 ####[facility] [address] [place], [address] GAP 6 Normal 5-15 [facility] Comment on above: Performed By: #### L 500.4050, L100.0100 ####[facility] [address] [place], [address] GFR/1.73 sq M.predicted among non-blacks MDRD (S/P/Bld) [Vol rate/Area] 78 mL/min/{1.73_m2} Normal >60 [facility] Comment on above: Result Comment: Non- GFR Calc Performed By: #### L 500.4050, L100.0100 ####[facility] [address] [place], [address] Globulin (S) [Mass/Vol] 4.3 g/dL High 2.2-4.2 [facility] Comment on above: Performed By: #### L 500.4050, L100.0100 ####[facility] [address] [place], [address] Glucose [Mass/Vol] 177 mg/dL High 74-106 [facility] Comment on above: Result Comment: Fast ing Glucose result greater than or equal to 126 mg/dLsuggests DIABETES MELLITUS per A.D.A. criteria. Performed By: #### L 500.4050, L100.0100 ####[facility] [address] [place], [address] Potassium [Moles/Vol] 3.8 mmol/L Normal 3.5-5.1 [facility] Comment on above: Performed By: #### L 500.4050, L100.0100 ####[facility] [address] [place], [address] Sodium [Moles/Vol] 140 mmol/L Normal 136-145 [facility] Comment on above: Performed By: #### L 500.4050, L100.0100 ####[facility] [address] [place], [address] T PROT 8.0 g/dL Normal 6.4-8.2 [facility] Comment on above: Performed By: #### L 500.4050, L100.0100 ####[facility] [address] [place], [address] Urea nitrogen [Mass/Vol] 19 mg/dL High 7-18 [facility] Comment on above: Performed By: #### L 500.4050, L100.0100 ####[facility] [address] [place], [address] Eosinophil percentageOrdered By: Diana Ramos on 05-29-2024 Eosinophils/100 WBC (Bld) 4.6 % 0-5 [facility] Erythrocyte distribution wid th ratioOrdered By: Diana Ramos on 05-29-2024 Erythrocyte distribution width (RBC) [Ratio] 14.0 % 11.6-14.6 [facility] Erythrocyte distribution wid th standard deviationOrdered By: Diana Ramos on 05-29-2024 Erythrocyte distribution width (RBC) [Entitic vol] 45.5 fL High 35.1-43.9 [facility] Estimated glomerular filtrat ion rate (GFR) AmericanOrdered By: Diana Ramos on 05-29-2024 Estimated GFR (MDRD) Amer 94 mL/min >60 [facility] Comment on above: GFR Calc Glomerular filtration rate ( GFR) estimationOrdered By: Diana Ramos on 05-29-2024 Estimated GFR (MDRD) Non-Af Amer 78 mL/min >60 [facility] Comment on above: Non- GFR Calc Glucose measurementOrdered B y: Diana Ramos on 05-29-2024 Glucose [Mass/Vol] 177 mg/dL High 74-106 [facility] Comment on above: Fasting Glucose resu lt greater than or equal to 126 mg/dL suggests DIABETES MELLITUS per A.D.A. criteria. Hematocrit Auto (Bld) [Volum e fraction]Ordered By: Diana Ramos on 05-29-2024 Hematocrit (Bld) [Volume fraction] 46.3 % 37-47 [facility] Hemoglobin measurementOrdere d By: Diana Ramos on 05-29-2024 Hemoglobin (Bld) [Mass/Vol] 14.6 g/dL 12.0-15.0 [facility] Immature granulocytes/100 WB C Auto (Bld)Ordered By: Diana Ramos on 05-29-2024 Immature granulocytes/100 WBC (Bld) 0.300 % 0.0-0.9 [facility] Comment on above: IG% - Immature Granu locytes (promyelocytes, myelocytes and metamyelocytes) > 1% indicates that a LEFT SHIFT is Present. Laboratory - Chemistry and C hemistry - challengeOrdered By: Diana Ramos on 05-29-2024 AST [Catalytic activity/Vol] 10 U/L Low 15-37 [facility] Lymphocytes Auto (Unsp spec) [#/Vol]Ordered By: Diana Ramos on 05-29-2024 Lymphocytes (Bld) [#/Vol] 1.82 10*3/uL 0.83-4.51 [facility] Lymphocytes/100 WBC Auto (Un sp spec)Ordered By: Diana Ramos on 05-29-2024 Lymphocytes/100 WBC (Bld) 26.9 % 19-41 [facility] MCV (mean corpuscular volume ) determinationOrdered By: Diana Ramos on 05-29-2024 MCV (RBC) [Entitic vol] 89.9 fL 81-99 [facility] Mean corpuscular hemoglobin (MCH) determinationOrdered By: Diana Ramos on 05-29-2024 MCH (RBC) [Entitic mass] 28.3 pg 27.0-32.0 [facility] Mean corpuscular hemoglobin concentration (MCHC) determinationOrdered By: Diana Ramos on 05-29-2024 MCHC (RBC) [Mass/Vol] 31.5 g/dL Low 32-36 [facility] Mean platelet volume determi nationOrdered By: Diana Ramos on 05-29-2024 Platelet mean volume (Bld) [Entitic vol] 10.5 fL 6.2-12.0 [facility] Monocyte percentageOrdered B y: Diana Ramos on 05-29-2024 Monocytes/100 WBC (Bld) 7.5 % 0-10 [facility] Neutrophil percentageOrdered By: Diana Ramos on 05-29-2024 Neutrophils/100 WBC (Bld) 59.8 % 47-70 [facility] Nucleated red blood cell per centageOrdered By: Diana Ramos on 05-29-2024 Nucleated RBC/100 WBC (Bld) [Ratio] 0 % 0-5 [facility] Platelet countOrdered By: Sanaz Ramos on 05-29-2024 Platelets (Bld) [#/Vol] 200 10*3/uL 150-450 [facility] Potassium measurementOrdered By: Diana Ramos on 05-29-2024 Potassium [Moles/Vol] 3.8 mmol/L 3.5-5.1 [facility] RBC Auto (Bld) [#/Vol]Ordere d By: Diana Ramos on 05-29-2024 RBC (Bld) [#/Vol] 5.15 10*6/uL 4.2-5.4 [facility] Serum anion gap measurementO rdered By: Diana Ramos on 05-29-2024 Anion gap [Moles/Vol] 6 mmol/L 5-15 [facility] Serum globulin measurementOr dered By: Diana Ramos on 05-29-2024 Globulin (S) [Mass/Vol] 4.3 g/dL High 2.2-4.2 [facility] Serum or plasma alanine smith otransferase (ALT) measurementOrdered By: Diana Ramos on 05-29-2024 ALT [Catalytic activity/Vol] 16 U/L 13-56 [facility] Serum or plasma albumin jasiel urement (mass/volume)Ordered By: Diana Ramos on 05-29-2024 Albumin [Mass/Vol] 3.7 g/dL 3.2-5.0 [facility] Serum or plasma alkaline quintin sphatase measurementOrdered By: Diana Ramos on 05-29-2024 ALP [Catalytic activity/Vol] 97 U/L 45-117 [facility] Serum or plasma calcium jasiel urement (mass/volume)Ordered By: Diana Ramos on 05-29-2024 Calcium [Mass/Vol] 9.8 mg/dL 8.5-10.1 [facility] Serum or plasma creatinine m easurement (mass/volume)Ordered By: Diana Ramos on 05-29-2024 Creatinine [Mass/Vol] 0.80 mg/dL 0.55-1.02 [facility] Comment on above: The validity of the calculated GFR & GFRAA in patients over 70 years has not been determined. Clinical correlation is essential. Serum or plasma urea nitroge n measurement (mass/volume)Ordered By: Diana Ramos on 05-29-2024 Urea nitrogen [Mass/Vol] 19 mg/dL High 7-18 [facility] Sodium levelOrdered By: Alexia Ramos on 05-29-2024 Sodium [Moles/Vol] 140 mmol/L 136-145 [facility] Total proteinOrdered By: Katarina Ramos on 05-29-2024 Protein [Mass/Vol] 8.0 g/dL 6.4-8.2 [facility] White blood cell (WBC) count Ordered By: Diana Ramos on 05-29-2024 WBC (Bld) [#/Vol] 6.8 10*3/uL 4.4-11.0 [facility] CBC W/Diff, Automatedon 09 Absolute Lymph 1.89 X10 3/uL Normal 0.83-4.51 [facility] Comment on above: Performed By: #### L 500.4050, L100.0100 ####[facility] [address] [place], [address] Absolute Neut 3.4 X10 3/uL Normal 2.0-7.7 [facility] Comment on above: Performed By: #### L 500.4050, L100.0100 ####[facility] [address] [place], [address] Basophils/100 WBC (Bld) 1.0 % Normal 0-1 [facility] Comment on above: Performed By: #### L 500.4050, L100.0100 ####[facility] [address] [place], [address] Eosinophils/100 WBC (Bld) 5.9 % High 0-5 [facility] Comment on above: Performed By: #### L 500.4050, L100.0100 ####[facility] [address] [place], [address] Erythrocyte distribution width (RBC) [Ratio] 14.4 % Normal 11.6-14.6 [facility] Comment on above: Performed By: #### L 500.4050, L100.0100 ####[facility] [address] [place], [address] Hematocrit (Bld) [Volume fraction] 45.9 % Normal 37-47 [facility] Comment on above: Performed By: #### L 500.4050, L100.0100 ####[facility] [address] [place], [address] Hemoglobin (Bld) [Mass/Vol] 14.3 g/dL Normal 12.0-15.0 [facility] Comment on above: Performed By: #### L 500.4050, L100.0100 ####[facility] [address] [place], [address] IG% 0.500 Normal 0.0-0.9 [facility] Comment on above: Result Comment: IG% - Immature Granulocytes (promyelocytes, myelocytes andmetamyelocytes) > 1% indicates that a LEFT SHIFT is Present. Performed By: #### L 500.4050, L100.0100 ####[facility] [address] [place], [address] Lymphocytes/100 WBC (Bld) 30.0 % Normal 19-41 [facility] Comment on above: Performed By: #### L 500.4050, L100.0100 ####[facility] [address] [place], [address] MCH (RBC) [Entitic mass] 27.7 pg Normal 27.0-32.0 [facility] Comment on above: Performed By: #### L 500.4050, L100.0100 ####[facility] [address] [place], [address] MCHC (RBC) [Mass/Vol] 31.2 g/dL Low 32-36 [facility] Comment on above: Performed By: #### L 500.4050, L100.0100 ####[facility] [address] [place], [address] MCV (RBC) [Entitic vol] 89.0 fL Normal 81-99 [facility] Comment on above: Performed By: #### L 500.4050, L100.0100 ####[facility] [address] [place], [address] Monocytes/100 WBC (Bld) 8.4 % Normal 0-10 [facility] Comment on above: Performed By: #### L 500.4050, L100.0100 ####[facility] [address] [place], [address] Neutrophils/100 WBC (Bld) 54.2 % Normal 47-70 [facility] Comment on above: Performed By: #### L 500.4050, L100.0100 ####[facility] [address] [place], [address] Nucleated RBC (Bld) [#/Vol] 0 10*3/uL Normal 0-5 [facility] Comment on above: Performed By: #### L 500.4050, L100.0100 ####[facility] [address] [place], [address] Platelet mean volume (Bld) [Entitic vol] 9.9 fL Normal 6.2-12.0 [facility] Comment on above: Performed By: #### L 500.4050, L100.0100 ####[facility] [address] [place], [address] Platelets (Bld) [#/Vol] 249 10*3/uL Normal 150-450 [facility] Comment on above: Performed By: #### L 500.4050, L100.0100 ####[facility] [address] [place], [address] RBC (Bld) [#/Vol] 5.16 10*6/uL Normal 4.2-5.4 [facility] Comment on above: Performed By: #### L 500.4050, L100.0100 ####[facility] [address] [place], [address] RDW SD 46.7 fl High 35.1-43.9 [facility] Comment on above: Performed By: #### L 500.4050, L100.0100 ####[facility] [address] [place], [address] WBC (Bld) [#/Vol] 6.3 10*3/uL Normal 4.4-11.0 [facility] Comment on above: Performed By: #### L 500.4050, L100.0100 ####[facility] [address] [place], [address] Comprehensive Metabolic Prof ilon 03-10-2024 Albumin [Mass/Vol] 3.4 g/dL Normal 3.2-5.0 [facility] Comment on above: Performed By: #### L 500.4050, L100.0100 ####[facility] [address] [place], [address] Albumin/Globulin [Mass ratio] 0.8 {ratio} Low 0.9-2.4 [facility] Comment on above: Performed By: #### L 500.4050, L100.0100 ####[facility] [address] [place], [address] ALK P 104 U/L Normal 45-117 [facility] Comment on above: Performed By: #### L 500.4050, L100.0100 ####[facility] [address] [place], [address] ALT [Catalytic activity/Vol] 14 U/L Normal 13-56 [facility] Comment on above: Performed By: #### L 500.4050, L100.0100 ####[facility] [address] [place], [address] AST [Catalytic activity/Vol] 9 U/L Low 15-37 [facility] Comment on above: Performed By: #### L 500.4050, L100.0100 ####[facility] [address] [place], [address] Bilirubin [Mass/Vol] 0.50 mg/dL Normal 0.20-1.00 [facility] Comment on above: Result Comment: For patients on eltrombopag therapy, use of Dimension Bascom TBIL is not recommended. Performed By: #### L 500.4050, L100.0100 ####[facility] [address] [place], [address] BUN/CRE 22.2 RATIO High 10-20 [facility] Comment on above: Performed By: #### L 500.4050, L100.0100 ####[facility] [address] [place], [address] CA,Total 9.6 mg/dL Normal 8.5-10.1 [facility] Comment on above: Performed By: #### L 500.4050, L100.0100 ####[facility] [address] [place], [address] Chloride [Moles/Vol] 104 mmol/L Normal 98-107 [facility] Comment on above: Performed By: #### L 500.4050, L100.0100 ####[facility] [address] [place], [address] CO2 [Moles/Vol] 27.0 mmol/L Normal 21.0-32.0 [facility] Comment on above: Performed By: #### L 500.4050, L100.0100 ####[facility] [address] [place], [address] Creatinine [Mass/Vol] 0.85 mg/dL Normal 0.55-1.02 [facility] Comment on above: Result Comment: The validity of the calculated GFR GFRAA in patients over70 years has not been determined. Clinical correlation isessential. Performed By: #### L 500.4050, L100.0100 ####[facility] [address] [place], [address] EST GFR - AA 87 mL/min Normal >60 [facility] Comment on above: Result Comment: Afri can Nigerian GFR Calc Performed By: #### L 500.4050, L100.0100 ####[facility] [address] [place], [address] GAP 6 Normal 5-15 [facility] Comment on above: Performed By: #### L 500.4050, L100.0100 ####[facility] [address] [place], [address] GFR/1.73 sq M.predicted among non-blacks MDRD (S/P/Bld) [Vol rate/Area] 72 mL/min/{1.73_m2} Normal >60 [facility] Comment on above: Result Comment: Non- GFR Calc Performed By: #### L 500.4050, L100.0100 ####[facility] [address] [place], [address] Globulin (S) [Mass/Vol] 4.4 g/dL High 2.2-4.2 [facility] Comment on above: Performed By: #### L 500.4050, L100.0100 ####[facility] [address] [place], [address] Glucose [Mass/Vol] 147 mg/dL High 74-106 [facility] Comment on above: Result Comment: Fast ing Glucose result greater than or equal to 126 mg/dLsuggests DIABETES MELLITUS per A.D.A. criteria. Performed By: #### L 500.4050, L100.0100 ####[facility] [address] [place], [address] Potassium [Moles/Vol] 4.0 mmol/L Normal 3.5-5.1 [facility] Comment on above: Performed By: #### L 500.4050, L100.0100 ####[facility] [address] [place], [address] Sodium [Moles/Vol] 137 mmol/L Normal 136-145 [facility] Comment on above: Performed By: #### L 500.4050, L100.0100 ####[facility] [address] [place], [address] T PROT 7.8 g/dL Normal 6.4-8.2 [facility] Comment on above: Performed By: #### L 500.4050, L100.0100 ####[facility] [address] [place], [place], [address] Urea nitrogen [Mass/Vol] 19 mg/dL High 7-18 [facility] Comment on above: Performed By: #### L 500.4050, L100.0100 ####[facility] [address] [place], [place], [address] ANCAon 02-05-2024 Atypical pANCA <1:20 Normal Neg:<1:20 [facility] Comment on above: Order Comment: Test( s) 366148-Xxsgxs, Serum or Plasmawas developed and its performance characteristicsdetermined by [employer]. It has not been cleared or approvedby the Food and Drug Administration.N Result Comment: The atypical pANCA pattern has been observed in asignificant percentage of patients with ulcerative colitis,primary sclerosing cholangitis and autoimmune hepatitis. Performed By: #### L 3100.5440, L503.6550, L2100.0000, L803.2200, L3400.3800, L101.9900, L503.6030, L501.6710, L3100.3425, L3300.1200, L3300.0100, L3410.2350, L800.1280, L3000.0375, L3400.0700 ####[facility] [address] [place], [place], [id number] Cytoplasmic Ab <1:20 Normal Neg:<1:20 [facility] Comment on above: Order Comment: Test( s) 685644-Etnozz, Serum or Plasmawas developed and its performance characteristicsdetermined by [employer]. It has not been cleared or approvedby the Food and Drug Administration.N Performed By: #### L 3100.5440, L503.6550, L2100.0000, L803.2200, L3400.3800, L101.9900, L503.6030, L501.6710, L3100.3425, L3300.1200, L3300.0100, L3410.2350, L800.1280, L3000.0375, L3400.0700 ####[facility] [address] [place], [place], [address] Perinuclear Ab. <1:20 Normal Neg:<1:20 [facility] Comment on above: Order Comment: Test( s) [id number]-Udfloi, Serum or Plasmawas developed and its performance characteristicsdetermined by [employer]. It has not been cleared or approvedby the Food and Drug Administration.N Result Comment: The presence of positive fluorescence exhibiting P-ANCA orC-ANCA patterns alone is not specific for the diagnosis ofWegener's Granulomatosis (WG) or microscopic polyangiitis.Decisions about treatment should not be based solely onANCA IFA results. The International ANCA Group Consensusrecommends follow up testing of positive sera with both OR-3 and MPO-ANCA enzyme immunoassays. As many as 5% serumsamples are positive only by EIA. Ref. AM J Clin Drpzlp1891;111:507-513. Performed By: #### L 3100.5440, L503.6550, L2100.0000, L803.2200, L3400.3800, L101.9900, L503.6030, L501.6710, L3100.3425, L3300.1200, L3300.0100, L3410.2350, L800.1280, L3000.0375, L3400.0700 ####[facility] [address] [place], [place], [id number] Anti-Smooth Muscle ABSon ANTISMOOTH MUSC 18 Units Normal 0-19 [facility] Comment on above: Order Comment: Test( s) [id number]-Zwhama, Serum or Plasmawas developed and its performance characteristicsdetermined by [employer]. It has not been cleared or approvedby [...] L3100.3425, L3300.1200, L3300.0100, L3410.2350, L800.1280, L3000.0375, L3400.0700 ####[facility] [address] [facility] [place], [place], [id number] Celiac AB,[facility] ANTIGLIADIN IGA 5 units Normal 0-19 [facility] Comment on above: Order Comment: Test( s) 640284-Wrdigz, Serum or Plasmawas developed and its performance characteristicsdetermined by [employer]. It has not been cleared or approvedby the Food and Drug Administration.N Result Comment: Nega tive 0 - 19 Weak Positive 20 - 30 Moderate to Strong Positive >30 Performed By: #### L 3100.5440, L503.6550, L2100.0000, L803.2200, L3400.3800, L101.9900, L503.6030, L501.6710, L3100.3425, L3300.1200, L3300.0100, L3410.2350, L800.1280, L3000.0375, L3400.0700 ####[facility] [address] [place], [place], [id number] ANTIGLIADIN IGG 3 units Normal 0-19 [facility] Comment on above: Order Comment: Test( s) 473571-Ojagrf, Serum or Plasmawas developed and its performance characteristicsdetermined by [employer]. It has not been cleared or approvedby the Food and Drug Administration.N Result Comment: Nega tive 0 - 19 Weak Positive 20 - 30 Moderate to Strong Positive >30 Performed By: #### L 3100.5440, L503.6550, L2100.0000, L803.2200, L3400.3800, L101.9900, L503.6030, L501.6710, L3100.3425, L3300.1200, L3300.0100, L3410.2350, L800.1280, L3000.0375, L3400.0700 ####[facility] [address] [facility] [place], [place], [id number] ENDOMYSIAL IGA Negative Normal Negative [facility] Comment on above: Order Comment: Test( s) 136053-Yryxdi, Serum or Plasmawas developed and its performance characteristicsdetermined by [employer]. It has not been cleared or approvedby the Food and Drug Administration.N Performed By: #### L 3100.5440, L503.6550, L2100.0000, L803.2200, L3400.3800, L101.9900, L503.6030, L501.6710, L3100.3425, L3300.1200, L3300.0100, L3410.2350, L800.1280, L3000.0375, L3400.0700 ####[facility] [address] [facility] [place], [place], [address] tTG IGA <2 Normal 0-3 [facility] Comment on above: Order Comment: Test( s) 611785-Kglfbs, Serum or Plasmawas developed and its performance characteristicsdetermined by [employer]. It has not been cleared or approvedby [...] L3100.3425, L3300.1200, L3300.0100, L3410.2350, L800.1280, L3000.0375, L3400.0700 ####[facility] [address] [facility] [place], [place], [address] tTG IGG 4 U/mL Normal 0-5 [facility] Comment on above: Order Comment: Test( s) 061377-Ygkxvw, Serum or Plasmawas developed and its performance characteristicsdetermined by [employer]. It has not been cleared or approvedby the Food and Drug Administration.N Result Comment: Nega tive 0 - 5 Weak Positive 6 - 9 Positive >9 Performed By: #### L 3100.5440, L503.6550, L2100.0000, L803.2200, L3400.3800, L101.9900, L503.6030, L501.6710, L3100.3425, L3300.1200, L3300.0100, L3410.2350, L800.1280, L3000.0375, L3400.0700 ####[facility] [address] [place], [address] Ceruloplasminon 02-05-2024 CERULOPLASMIN 33.9 mg/dL Normal 19.0-39.0 [facility] Comment on above: Order Comment: Test( s) 815112-Gzusrb, Serum or Plasmawas developed and its performance characteristicsdetermined by [employer]. It has not been cleared or approvedby the Food and Drug Administration.N Performed By: #### L 3100.5440, L503.6550, L2100.0000, L803.2200, L3400.3800, L101.9900, L503.6030, L501.6710, L3100.3425, L3300.1200, L3300.0100, L3410.2350, L800.1280, L3000.0375, L3400.0700 ####[facility] [address] [place], [address] Copper, Serum or Plasmaon COPPER, SERUM 146 ug/dL Normal 80-158 [facility] Comment on above: Order Comment: Test( s) 562200-Expcir, Serum or Plasmawas developed and its performance characteristicsdetermined by [employer]. It has not been cleared or approvedby the Food and Drug Administration.N Result Comment: Dete ction Limit = 5 Performed By: #### L 3100.5440, L503.6550, L2100.0000, L803.2200, L3400.3800, L101.9900, L503.6030, L501.6710, L3100.3425, L3300.1200, L3300.0100, L3410.2350, L800.1280, L3000.0375, L3400.0700 ####[facility] [address] [place], [place], [address] Hepatitis Panel Acuteon 01-26 HEP B CORE,IgM Negative Normal Negative [facility] Comment on above: Order Comment: Test( s) 961782-Mwbdos, Serum or Plasmawas developed and its performance characteristicsdetermined by [employer]. It has not been cleared or approvedby the Food and Drug Administration.N Performed By: #### L 3100.5440, L503.6550, L2100.0000, L803.2200, L3400.3800, L101.9900, L503.6030, L501.6710, L3100.3425, L3300.1200, L3300.0100, L3410.2350, L800.1280, L3000.0375, L3400.0700 ####[facility] [address] [place], [place], [address] HEP B SURF AG Negative Normal Negative [facility] Comment on above: Order Comment: Test( s) 603817-Frzdho, Serum or Plasmawas developed and its performance characteristicsdetermined by [employer]. It has not been cleared or approvedby the Food and Drug Administration.N Performed By: #### L 3100.5440, L503.6550, L2100.0000, L803.2200, L3400.3800, L101.9900, L503.6030, L501.6710, L3100.3425, L3300.1200, L3300.0100, L3410.2350, L800.1280, L3000.0375, L3400.0700 ####[facility] [address] [place], [address] HEP C VIRUS AB Non-Reactive Normal Non Reactive [facility] Comment on above: Order Comment: Test( s) 380664-Ndcoan, Serum or Plasmawas developed and its performance characteristicsdetermined by [employer]. It has not been cleared or approvedby the Food and Drug Administration.N Performed By: #### L 3100.5440, L503.6550, L2100.0000, L803.2200, L3400.3800, L101.9900, L503.6030, L501.6710, L3100.3425, L3300.1200, L3300.0100, L3410.2350, L800.1280, L3000.0375, L3400.0700 ####[facility] [address] [place], [address] HEPATITIS A-IgM Negative Normal Negative [facility] Comment on above: Order Comment: Test( s) 562976-Onvves, Serum or Plasmawas developed and its performance characteristicsdetermined by [employer]. It has not been cleared or approvedby the Food and Drug Administration.N Performed By: #### L 3100.5440, L503.6550, L2100.0000, L803.2200, L3400.3800, L101.9900, L503.6030, L501.6710, L3100.3425, L3300.1200, L3300.0100, L3410.2350, L800.1280, L3000.0375, L3400.0700 ####[facility] [address] [place], [address] ELI + Protein Elect, Serumon 02-05-2024 Albumin [Mass/Vol] 3.2 g/dL Normal 2.9-4.4 [facility] Comment on above: Order Comment: Test( s) 144497-Tafnwg, Serum or Plasmawas developed and its performance characteristicsdetermined by [employer]. It has not been cleared or approvedby the Food and Drug Administration.N Performed By: #### L 3100.5440, L503.6550, L2100.0000, L803.2200, L3400.3800, L101.9900, L503.6030, L501.6710, L3100.3425, L3300.1200, L3300.0100, L3410.2350, L800.1280, L3000.0375, L3400.0700 ####[facility] [address] [facility] [place], [place], [address] Albumin/Globulin [Mass ratio] 0.9 {ratio} Normal 0.7-1.7 [facility] Comment on above: Order Comment: Test( s) 497183-Knuhbj, Serum or Plasmawas developed and its performance characteristicsdetermined by [employer]. It has not been cleared or approvedby the Food and Drug Administration.N Performed By: #### L 3100.5440, L503.6550, L2100.0000, L803.2200, L3400.3800, L101.9900, L503.6030, L501.6710, L3100.3425, L3300.1200, L3300.0100, L3410.2350, L800.1280, L3000.0375, L3400.0700 ####[facility] [address] [place], [place], [address] NHDUE-0-BTFS 0.3 g/dL Normal 0.0-0.4 [facility] Comment on above: Order Comment: Test( s) 070612-Lljirk, Serum or Plasmawas developed and its performance characteristicsdetermined by [employer]. It has not been cleared or approvedby the Food and Drug Administration.N Performed By: #### L 3100.5440, L503.6550, L2100.0000, L803.2200, L3400.3800, L101.9900, L503.6030, L501.6710, L3100.3425, L3300.1200, L3300.0100, L3410.2350, L800.1280, L3000.0375, L3400.0700 ####[facility] [address] [place], [address] OGQNK-6-QVHY 1.0 g/dL Normal 0.4-1.0 [facility] Comment on above: Order Comment: Test( s) 469917-Ztsslu, Serum or Plasmawas developed and its performance characteristicsdetermined by [employer]. It has not been cleared or approvedby the Food and Drug Administration.N Performed By: #### L 3100.5440, L503.6550, L2100.0000, L803.2200, L3400.3800, L101.9900, L503.6030, L501.6710, L3100.3425, L3300.1200, L3300.0100, L3410.2350, L800.1280, L3000.0375, L3400.0700 ####[facility] [address] [place], [address] BETA GLOBULIN 1.4 g/dL High 0.7-1.3 [facility] Comment on above: Order Comment: Test( s) 110921-Mzylyj, Serum or Plasmawas developed and its performance characteristicsdetermined by [employer]. It has not been cleared or approvedby the Food and Drug Administration.N Performed By: #### L 3100.5440, L503.6550, L2100.0000, L803.2200, L3400.3800, L101.9900, L503.6030, L501.6710, L3100.3425, L3300.1200, L3300.0100, L3410.2350, L800.1280, L3000.0375, L3400.0700 ####[facility] [address] [place], [address] GAMMA GLOBULIN 0.9 g/dL Normal 0.4-1.8 [facility] Comment on above: Order Comment: Test( s) 798632-Xcymgi, Serum or Plasmawas developed and its performance characteristicsdetermined by [facility]. It has not been cleared or approvedby the Food and Drug Administration.N Performed By: #### L 3100.5440, L503.6550, L2100.0000, L803.2200, L3400.3800, L101.9900, L503.6030, L501.6710, L3100.3425, L3300.1200, L3300.0100, L3410.2350, L800.1280, L3000.0375, L3400.0700 ####[facility] [address] [place], [place], [phone] Globulin (S) [Mass/Vol] 3.7 g/dL Normal 2.2-3.9 [facility] Comment on above: Order Comment: Test( s) 879017-Coeuhm, Serum or Plasmawas developed and its performance characteristicsdetermined by [facility]. It has not been cleared or approvedby the Food and Drug Administration.N Performed By: #### L 3100.5440, L503.6550, L2100.0000, L803.2200, L3400.3800, L101.9900, L503.6030, L501.6710, L3100.3425, L3300.1200, L3300.0100, L3410.2350, L800.1280, L3000.0375, L3400.0700 ####[facility] [address] [place], [place], [address] ELI RESULT,S Comment Abnormal . [facility] Comment on above: Order Comment: Test( s) 057228-Fowbfx, Serum or Plasmawas developed and its performance characteristicsdetermined by [employer]. It has not been cleared or approvedby the Food and Drug Administration.N Result Comment: Immu nofixation shows IgG monoclonal protein with kappalight chain specificity. PLEASE NOTE: Samples from patients receiving DARZALEX(R)(daratumumab) or SARCLISA(R)(isatuximab-irfc) treatmentcan appear as an "IgG kappa" and mask a complete response(CR). If this patient is receiving these therapies, thisIFE assay interference can be removed by ordering testnumber 388951-"Immunofixation, Daratumumab-Specific,Serum" or [id number]-"Immunofixation, Isatuximab-Specific,Serum" and submitting a new sample for testing or bycalling the lab to add this test to the current sample. Performed By: #### L 3100.5440, L503.6550, L2100.0000, L803.2200, L3400.3800, L101.9900, L503.6030, L501.6710, L3100.3425, L3300.1200, L3300.0100, L3410.2350, L800.1280, L3000.0375, L3400.0700 ####[facility] [address] [facility] [place], [place], [phone] IMMUNOGLOB A QN 457 mg/dL High 87-352 [facility] Comment on above: Order Comment: Test( s) 653576-Ngbmfa, Serum or Plasmawas developed and its performance characteristicsdetermined by [employer]. It has not been cleared or approvedby the Food and Drug Administration.N Performed By: #### L 3100.5440, L503.6550, L2100.0000, L803.2200, L3400.3800, L101.9900, L503.6030, L501.6710, L3100.3425, L3300.1200, L3300.0100, L3410.2350, L800.1280, L3000.0375, L3400.0700 ####[facility] [address] [place], [place], [id number] IMMUNOGLOB G QN 1075 mg/dL Normal 586-1602 [facility] Comment on above: Order Comment: Test( s) 576689-Qbicne, Serum or Plasmawas developed and its performance characteristicsdetermined by [employer]. It has not been cleared or approvedby the Food and Drug Administration.N Performed By: #### L 3100.5440, L503.6550, L2100.0000, L803.2200, L3400.3800, L101.9900, L503.6030, L501.6710, L3100.3425, L3300.1200, L3300.0100, L3410.2350, L800.1280, L3000.0375, L3400.0700 ####[facility] [address] [place], [place], [address] IMMUNOGLOB M QN 30 mg/dL Normal 26-217 [facility] Comment on above: Order Comment: Test( s) 016683-Hjdamz, Serum or Plasmawas developed and its performance characteristicsdetermined by [employer]. It has not been cleared or approvedby the Food and Drug Administration.N Performed By: #### L 3100.5440, L503.6550, L2100.0000, L803.2200, L3400.3800, L101.9900, L503.6030, L501.6710, L3100.3425, L3300.1200, L3300.0100, L3410.2350, L800.1280, L3000.0375, L3400.0700 ####[facility] [address] [place], [place], [address] M-Min Comment: Normal Not Observed [facility] Comment on above: Order Comment: Test( s) 521933-Qwecxz, Serum or Plasmawas developed and its performance characteristicsdetermined by [employer]. It has not been cleared or approvedby the Food and Drug Administration.N Result Comment: Due to the small quantity of monoclonal protein, unable toquantitate the M-spike. Performed By: #### L 3100.5440, L503.6550, L2100.0000, L803.2200, L3400.3800, L101.9900, L503.6030, L501.6710, L3100.3425, L3300.1200, L3300.0100, L3410.2350, L800.1280, L3000.0375, L3400.0700 ####[facility] [address] [place], [place], [address] NOTE: Comment Normal . [facility] Comment on above: Order Comment: Test( s) 438662-Ctjpzh, Serum or Plasmawas developed and its performance characteristicsdetermined by [employer]. It has not been cleared or approvedby the Food and Drug Administration.N Result Comment: Prot ein electrophoresis scan will follow via computer,mail, or coordinator cardiopulmonary services delivery. Performed By: #### L 3100.5440, L503.6550, L2100.0000, L803.2200, L3400.3800, L101.9900, L503.6030, L501.6710, L3100.3425, L3300.1200, L3300.0100, L3410.2350, L800.1280, L3000.0375, L3400.0700 ####[facility] [address] [facility] [place], [address] Protein [Mass/Vol] 6.9 g/dL Normal 6.0-8.5 [facility] Comment on above: Order Comment: Test( s) 531217-Yaubny, Serum or Plasmawas developed and its performance characteristicsdetermined by [employer]. It has not been cleared or approvedby the Food and Drug Administration.N Performed By: #### L 3100.5440, L503.6550, L2100.0000, L803.2200, L3400.3800, L101.9900, L503.6030, L501.6710, L3100.3425, L3300.1200, L3300.0100, L3410.2350, L800.1280, L3000.0375, L3400.0700 ####[facility] [address] [facility] [place], [place], [address] L2100.0000on 02-05-2024 ACCA 72 units Normal 0-90 [facility] Comment on above: Order Comment: Test( s) 771071-Pugbcw, Serum or Plasmawas developed and its performance characteristicsdetermined by [employer]. It has not been cleared or approvedby the Food and Drug Administration.N Result Comment: Nega tive: <80 Equivocal: 80-90 Positive: >90 Performed By: #### L 3100.5440, L503.6550, L2100.0000, L803.2200, L3400.3800, L101.9900, L503.6030, L501.6710, L3100.3425, L3300.1200, L3300.0100, L3410.2350, L800.1280, L3000.0375, L3400.0700 ####[facility] [address] [place], [place], [address] ALCA 26 units Normal 0-60 [facility] Comment on above: Order Comment: Test( s) 870396-Lxjbur, Serum or Plasmawas developed and its performance characteristicsdetermined by [employer]. It has not been cleared or approvedby the Food and Drug Administration.N Result Comment: Nega tive:<55 Equivocal: 55-60 Positive: >60 Performed By: #### L 3100.5440, L503.6550, L2100.0000, L803.2200, L3400.3800, L101.9900, L503.6030, L501.6710, L3100.3425, L3300.1200, L3300.0100, L3410.2350, L800.1280, L3000.0375, L3400.0700 ####[facility] [address] [facility] [place], [place], [address] AMCA 144 units High 0-100 [facility] Comment on above: Order Comment: Test( s) 870931-Jdcfwb, Serum or Plasmawas developed and its performance characteristicsdetermined by [employer]. It has not been cleared or approvedby the Food and Drug Administration.N Result Comment: Nega tive: <90 Equivocal: 90-100 Positive: >100 This test was developed and its performance characteristics determined by [employer]. It has not been cleared or approved by the Food and Drug Administration. The FDA has determined that such clearance or approval is not necessary. Performed By: #### L 3100.5440, L503.6550, L2100.0000, L803.2200, L3400.3800, L101.9900, L503.6030, L501.6710, L3100.3425, L3300.1200, L3300.0100, L3410.2350, L800.1280, L3000.0375, L3400.0700 ####[facility] [address] [place], [place], [phone] Atypical pANCA Negative Normal Negative [facility] Comment on above: Order Comment: Test( s) 329920-Pbtoys, Serum or Plasmawas developed and its performance characteristicsdetermined by [facility]. It has not been cleared or approvedby the Food and Drug Administration.N Performed By: #### L 3100.5440, L503.6550, L2100.0000, L803.2200, L3400.3800, L101.9900, L503.6030, L501.6710, L3100.3425, L3300.1200, L3300.0100, L3410.2350, L800.1280, L3000.0375, L3400.0700 ####[facility] [address] [place], [address] COMMENT Comment Normal . [facility] Comment on above: Order Comment: Test( s) 019057-Mxltyx, Serum or Plasmawas developed and its performance characteristicsdetermined by [employer]. It has not been cleared or approvedby the Food and Drug Administration.N Result Comment: Sugg estive of Crohn's Disease. Pattern is not conclusivefor disease behavior risk stratification. Performed By: #### L 3100.5440, L503.6550, L2100.0000, L803.2200, L3400.3800, L101.9900, L503.6030, L501.6710, L3100.3425, L3300.1200, L3300.0100, L3410.2350, L800.1280, L3000.0375, L3400.0700 ####[facility] [address] [place], [address] Result Comment: Not infected with HCV unless early or acute infection issuspected (which may be delayed in an immunocompromisedindividual), or other evidence exists to indicate HCVinfection. Diane 15 units Normal 0-50 [facility] Comment on above: Order Comment: Test( s) 235291-Hthlpj, Serum or Plasmawas developed and its performance characteristicsdetermined by [employer]. It has not been cleared or approvedby the Food and Drug Administration.N Result Comment: Nega tive: <45 Equivocal: 45-50 Positive: >50 Performed By: #### L 3100.5440, L503.6550, L2100.0000, L803.2200, L3400.3800, L101.9900, L503.6030, L501.6710, L3100.3425, L3300.1200, L3300.0100, L3410.2350, L800.1280, L3000.0375, L3400.0700 ####[facility] [address] [place], [address] Transferrinon 02-05-2024 Transferrin [Mass/Vol] 290 mg/dL Normal 192-364 [facility] Comment on above: Order Comment: Test( s) 189953-Ljpnde, Serum or Plasmawas developed and its performance characteristicsdetermined by [employer]. It has not been cleared or approvedby the Food and Drug Administration.N Result Comment: Perf ormed at: [facility] [employer] [id number] Director: Luis Felipe Wong PhD, Phone: [phone] at: [facility] [employer] [id number] Director: Aurelia Child MD, Phone: [phone] Performed By: #### L 3100.5440, L503.6550, L2100.0000, L803.2200, L3400.3800, L101.9900, L503.6030, L501.6710, L3100.3425, L3300.1200, L3300.0100, L3410.2350, L800.1280, L3000.0375, L3400.0700 ####[facility] [address] [place], [place], [phone] MARITZA Comprehensive Panelon MARITZA TABLE Comment Normal . [facility] Comment on above: Result Comment: Auto antibody Disease Association -------- Condition Frequency ---------Antinuclear Antibody, SLE, mixed connectiveDirect (MARITZA-D) tissue diseases ---------dsDNA SLE 40 - 60% ---------Chromatin Drug induced SLE 90% SLE 48 - 97% ---------SSA (Ro) SLE 25 - 35% Sjogren's Syndrome 40 - 70% Lupus 100% ---------SSB (La) SLE 10% Sjogren's Syndrome 30% ---------Sm (anti-Rivera) SLE 15 - 30% ---------SHAREPOINT DESIGNER DEVELOPER Mixed Connective Tissue Disease 95%(U1 nRNP, SLE 30 - 50%anti-ribonucleoprotein) Polymyositis and/or Dermatomyositis 20% ---------Scl-70 (antiDNA Scleroderma (diffuse) 20 - 35%topoisomerase) Crest 13% ---------Dinah-1 Polymyositis and/or Dermatomyositis 20 - 40% ---------Centromere B Scleroderma - Crest variant 80% Performed By: #### L 3100.5440, L503.6550, L2100.0000, L803.2200, L3400.3800, L101.9900, L503.6030, L501.6710, L3100.3425, L3300.1200, L3300.0100, L3410.2350, L800.1280, L3000.0375, L3400.0700 ####[facility] [address] [place], [address] ANTI-CENT B AB <0.2 Normal 0.0-0.9 [facility] Comment on above: Performed By: #### L 3100.5440, L503.6550, L2100.0000, L803.2200, L3400.3800, L101.9900, L503.6030, L501.6710, L3100.3425, L3300.1200, L3300.0100, L3410.2350, L800.1280, L3000.0375, L3400.0700 ####[facility] [address] [place], [place], [id number] ANTI-DNA (DS)AB <1 Normal 0-9 [facility] Comment on above: Result Comment: Nega tive <5 Equivocal 5 - 9 Positive >9 Performed By: #### L 3100.5440, L503.6550, L2100.0000, L803.2200, L3400.3800, L101.9900, L503.6030, L501.6710, L3100.3425, L3300.1200, L3300.0100, L3410.2350, L800.1280, L3000.0375, L3400.0700 ####[facility] [address] [place], [place], [id number] ANTI-DINAH-1 <0.2 Normal 0.0-0.9 [facility] Comment on above: Performed By: #### L 3100.5440, L503.6550, L2100.0000, L803.2200, L3400.3800, L101.9900, L503.6030, L501.6710, L3100.3425, L3300.1200, L3300.0100, L3410.2350, L800.1280, L3000.0375, L3400.0700 ####[facility] [address] [place], [place], [address] ANTI-SS-A < 0.2 Normal 0.0-0.9 [facility] Comment on above: Performed By: #### L 3100.5440, L503.6550, L2100.0000, L803.2200, L3400.3800, L101.9900, L503.6030, L501.6710, L3100.3425, L3300.1200, L3300.0100, L3410.2350, L800.1280, L3000.0375, L3400.0700 ####[facility] [address] [place], [place], [id number] ANTI-SS-B < 0.2 Normal 0.0-0.9 [facility] Comment on above: Performed By: #### L 3100.5440, L503.6550, L2100.0000, L803.2200, L3400.3800, L101.9900, L503.6030, L501.6710, L3100.3425, L3300.1200, L3300.0100, L3410.2350, L800.1280, L3000.0375, L3400.0700 ####[facility] [address] [place], [place], [address] ANTICHROMATIN <0.2 Normal 0.0-0.9 [facility] Comment on above: Performed By: #### L 3100.5440, L503.6550, L2100.0000, L803.2200, L3400.3800, L101.9900, L503.6030, L501.6710, L3100.3425, L3300.1200, L3300.0100, L3410.2350, L800.1280, L3000.0375, L3400.0700 ####[facility] [address] [place], [address] ANTISCLERODERM <0.2 Normal 0.0-0.9 [facility] Comment on above: Performed By: #### L 3100.5440, L503.6550, L2100.0000, L803.2200, L3400.3800, L101.9900, L503.6030, L501.6710, L3100.3425, L3300.1200, L3300.0100, L3410.2350, L800.1280, L3000.0375, L3400.0700 ####[facility] [address] [place], [place], [id number] SHAREPOINT DESIGNER DEVELOPER Ab <0.2 Normal 0.0-0.9 [facility] Comment on above: Performed By: #### L 3100.5440, L503.6550, L2100.0000, L803.2200, L3400.3800, L101.9900, L503.6030, L501.6710, L3100.3425, L3300.1200, L3300.0100, L3410.2350, L800.1280, L3000.0375, L3400.0700 ####[facility] [address] [place], [address] RIVERA Ab <0.2 Normal 0.0-0.9 [facility] Comment on above: Performed By: #### L 3100.5440, L503.6550, L2100.0000, L803.2200, L3400.3800, L101.9900, L503.6030, L501.6710, L3100.3425, L3300.1200, L3300.0100, L3410.2350, L800.1280, L3000.0375, L3400.0700 ####[facility] [address] [facility] [place], [address] Anti-Mitochondrial ABon 08-0 ANTIMITOCHON AB <20.0 Normal 0.0-20.0 [facility] Comment on above: Result Comment: Nega tive 0.0 - 20.0 Equivocal 20.1 - 24.9 Positive >24.9Mitochondrial (M2) Antibodies are found in 90-96% ofpatients with primary biliary cirrhosis.Performed at: [address] [id number] Director: Luis Felipe Wong PhD, Phone: [phone] Performed By: #### L 3100.5440, L503.6550, L2100.0000, L803.2200, L3400.3800, L101.9900, L503.6030, L501.6710, L3100.3425, L3300.1200, L3300.0100, L3410.2350, L800.1280, L3000.0375, L3400.0700 ####[facility] [address] [place], [address] 12 Lead EKGon 01-31-2024 12 Lead EKG Normal [facility] Abdomen Limitedon 01-31-2024 Abdomen Limited Normal [facility] Bedside Glucoseon 01-31-2024 FINGERSTICK GLU 225 mg/dL High 74-106 [facility] Comment on above: Result Comment: SAAR GEMENT OF PATIENT CARE PER NURSING PROTOCOL Performed By: #### L 501.080 ####[facility] [address] [place], [address] FINGERSTICK GLU 118 mg/dL High 74-106 [facility] Comment on above: Result Comment: SARA GEMENT OF PATIENT CARE PER NURSING PROTOCOL Performed By: #### L 501.080 ####[facility] [address] [place], [address] FINGERSTICK GLU 126 mg/dL High 74-106 [facility] Comment on above: Result Comment: SARA GEMENT OF PATIENT CARE PER NURSING PROTOCOL Performed By: #### L 501.080 ####[facility] [address] [place], [address] FINGERSTICK GLU 115 mg/dL High 74-106 [facility] Comment on above: Result Comment: SARA GEMENT OF PATIENT CARE PER NURSING PROTOCOL Performed By: #### L 501.080 ####[facility] [address] [place], [address] CRPon 01-31-2024 C-REACTIVE PROT 11.80 mg/L High 0.0-3.0 [facility] Comment on above: Result Comment: C-Re active Protein (CRP) provides useful information for thediagnosis, therapy and monitoring of inflammatory processesand associated diseases. For the evaluation of Relative Riskfor Cardiovascular Disease, a High Sensitivity CRP (HSCRP)should be ordered. Performed By: #### L 3100.5440, L503.6550, L2100.0000, L803.2200, L3400.3800, L101.9900, L503.6030, L501.6710, L3100.3425, L3300.1200, L3300.0100, L3410.2350, L800.1280, L3000.0375, L3400.0700 ####[facility] [address] [place], [place], [id number] Discharge Instructionon 080 Discharge Instruction Normal [facility] EGD Reporton 01-31-2024 EGD Report Normal [facility] Erythrocyte Sed Rateon 01-30 SED RATE 38 mm/hr High 0-30 [facility] Comment on above: Performed By: #### L 3100.5440, L503.6550, L2100.0000, L803.2200, L3400.3800, L101.9900, L503.6030, L501.6710, L3100.3425, L3300.1200, L3300.0100, L3410.2350, L800.1280, L3000.0375, L3400.0700 ####[facility] [address] [place], [place], [id number] Ferritinon 01-31-2024 Ferritin [Mass/Vol] 72 ng/mL Normal 8-252 [facility] Comment on above: Performed By: #### L 3100.5440, L503.6550, L2100.0000, L803.2200, L3400.3800, L101.9900, L503.6030, L501.6710, L3100.3425, L3300.1200, L3300.0100, L3410.2350, L800.1280, L3000.0375, L3400.0700 ####[facility] [address] [place], [place], [address] H Pylori (initial)on 024 H Pylori (initial) Normal [facility] Comment on above: Performed By: #### P H.PYLORI ####[facility] [address] [place], [address] Iron+Iron Binding Capacityon 01-31-2024 Iron [Mass/Vol] 44 ug/dL Low 50-170 [facility] Comment on above: Performed By: #### L 3100.5440, L503.6550, L2100.0000, L803.2200, L3400.3800, L101.9900, L503.6030, L501.6710, L3100.3425, L3300.1200, L3300.0100, L3410.2350, L800.1280, L3000.0375, L3400.0700 ####[facility] [address] [place], [address] IRON SATURATION 12.2 Low 15.0-55.0 [facility] Comment on above: Performed By: #### L 3100.5440, L503.6550, L2100.0000, L803.2200, L3400.3800, L101.9900, L503.6030, L501.6710, L3100.3425, L3300.1200, L3300.0100, L3410.2350, L800.1280, L3000.0375, L3400.0700 ####[facility] [address] [place], [address] TIBC 362 ug/dL Normal 250-450 [facility] Comment on above: Performed By: #### L 3100.5440, L503.6550, L2100.0000, L803.2200, L3400.3800, L101.9900, L503.6030, L501.6710, L3100.3425, L3300.1200, L3300.0100, L3410.2350, L800.1280, L3000.0375, L3400.0700 ####[facility] [address] [place], [address] MR/POSTOP.ANEon 01-31-2024 MR/POSTOP.ANE Normal [facility] MR/IVMLIZKA4gb 01-31-2024 MR/POSTOPAN2 Normal [facility] Surgery Specimen Level Evita 01-31-2024 Surgery Specimen Level IV Normal [facility] Comment on above: Performed By: #### P SUIV ####[facility] [address] [place], [address] Thyroid Stim Hormone (TSH)on 01-31-2024 TSH 0.16 uIU/mL Low 0.358-3.74 [facility] Comment on above: Performed By: #### L 501.9520 ####[facility] [address] [place], [address] Bedside Glucoseon 01-30-2024 FINGERSTICK GLU 116 mg/dL High 74-106 [facility] Comment on above: Result Comment: SARA GEMENT OF PATIENT CARE PER NURSING PROTOCOL Performed By: #### L 501.080 ####[facility] [address] [place], [address] FINGERSTICK GLU 126 mg/dL High 74-106 [facility] Comment on above: Result Comment: SARA GEMENT OF PATIENT CARE PER NURSING PROTOCOL Performed By: #### L 501.080 ####[facility] [address] [place], [address] FINGERSTICK GLU 109 mg/dL High 74-106 [facility] Comment on above: Result Comment: SARA GEMENT OF PATIENT CARE PER NURSING PROTOCOL Performed By: #### L 501.080 ####[facility] [address] [place], [address] Bedside Glucoseon 01-29-2024 FINGERSTICK GLU 109 mg/dL High 74-106 [facility] Comment on above: Result Comment: SARA GEMENT OF PATIENT CARE PER NURSING PROTOCOL Performed By: #### L 501.080 ####[facility] [address] [place], [address] FINGERSTICK GLU 116 mg/dL High 74-106 [facility] Comment on above: Result Comment: SARA DAYENT OF PATIENT CARE PER NURSING PROTOCOL Performed By: #### L 501.080 ####[facility] [address] [place], [address] FINGERSTICK GLU 98 mg/dL Normal 74-106 [facility] Comment on above: Result Comment: SARA GEMENT OF PATIENT CARE PER NURSING PROTOCOL Performed By: #### L 501.080 ####[facility] [address] [place], [address] CBC W/Diff, Automatedon 08-0 -2023 Absolute Lymph 1.14 X10 3/uL Normal 0.83-4.51 [facility] Comment on above: Performed By: #### L 500.4050, L100.0100 ####[facility] [address] [place], [address] Absolute Neut 4.5 X10 3/uL Normal 2.0-7.7 [facility] Comment on above: Performed By: #### L 500.4050, L100.0100 ####[facility] [address] [place], [address] Basophils/100 WBC (Bld) 0.5 % Normal 0-1 [facility] Comment on above: Performed By: #### L 500.4050, L100.0100 ####[facility] [address] [place], [address] Eosinophils/100 WBC (Bld) 3.8 % Normal 0-5 [facility] Comment on above: Performed By: #### L 500.4050, L100.0100 ####[facility] [address] [place], [address] Erythrocyte distribution width (RBC) [Ratio] 14.6 % Normal 11.6-14.6 [facility] Comment on above: Performed By: #### L 500.4050, L100.0100 ####[facility] [address] [place], [address] Hematocrit (Bld) [Volume fraction] 44.4 % Normal 37-47 [facility] Comment on above: Performed By: #### L 500.4050, L100.0100 ####[facility] [address] [place], [address] Hemoglobin (Bld) [Mass/Vol] 13.9 g/dL Normal 12.0-15.0 [facility] Comment on above: Performed By: #### L 500.4050, L100.0100 ####[facility] [address] [place], [address] IG% 0.200 Normal 0.0-0.9 [facility] Comment on above: Result Comment: IG% - Immature Granulocytes (promyelocytes, myelocytes andmetamyelocytes) > 1% indicates that a LEFT SHIFT is Present. Performed By: #### L 500.4050, L100.0100 ####[facility] [address] [place], [address] Lymphocytes/100 WBC (Bld) 17.9 % Low 19-41 [facility] Comment on above: Performed By: #### L 500.4050, L100.0100 ####[facility] [address] [place], [address] MCH (RBC) [Entitic mass] 27.7 pg Normal 27.0-32.0 [facility] Comment on above: Performed By: #### L 500.4050, L100.0100 ####[facility] [address] [place], [address] MCHC (RBC) [Mass/Vol] 31.3 g/dL Low 32-36 [facility] Comment on above: Performed By: #### L 500.4050, L100.0100 ####[facility] [address] [place], [address] MCV (RBC) [Entitic vol] 88.6 fL Normal 81-99 [facility] Comment on above: Performed By: #### L 500.4050, L100.0100 ####[facility] [address] [place], [address] Monocytes/100 WBC (Bld) 6.9 % Normal 0-10 [facility] Comment on above: Performed By: #### L 500.4050, L100.0100 ####[facility] [address] [place], [address] Neutrophils/100 WBC (Bld) 70.7 % High 47-70 [facility] Comment on above: Performed By: #### L 500.4050, L100.0100 ####[facility] [address] [place], [address] Nucleated RBC (Bld) [#/Vol] 0 10*3/uL Normal 0-5 [facility] Comment on above: Performed By: #### L 500.4050, L100.0100 ####[facility] [address] [place], [address] Platelet mean volume (Bld) [Entitic vol] 9.8 fL Normal 6.2-12.0 [facility] Comment on above: Performed By: #### L 500.4050, L100.0100 ####[facility] [address] [place], [address] Platelets (Bld) [#/Vol] 164 10*3/uL Normal 150-450 [facility] Comment on above: Performed By: #### L 500.4050, L100.0100 ####[facility] [address] [place], [address] RBC (Bld) [#/Vol] 5.01 10*6/uL Normal 4.2-5.4 [facility] Comment on above: Performed By: #### L 500.4050, L100.0100 ####[facility] [address] [place], [address] RDW SD 46.6 fl High 35.1-43.9 [facility] Comment on above: Performed By: #### L 500.4050, L100.0100 ####[facility] [address] [place], [address] WBC (Bld) [#/Vol] 6.4 10*3/uL Normal 4.4-11.0 [facility] Comment on above: Performed By: #### L 500.4050, L100.0100 ####[facility] [address] [place], [address] [facility] 01-29-2024 Albumin [Mass/Vol] 2.8 g/dL Low 3.2-5.0 [facility] Comment on above: Performed By: #### L 500.4050, L100.0100 ####[facility] [address] [place], [address] Albumin/Globulin [Mass ratio] 0.7 {ratio} Low 0.9-2.4 [facility] Comment on above: Performed By: #### L 500.4050, L100.0100 ####[facility] [address] [place], [address] ALK P 82 U/L Normal 45-117 [facility] Comment on above: Performed By: #### L 500.4050, L100.0100 ####[facility] [address] [place], [address] ALT [Catalytic activity/Vol] 13 U/L Normal 13-56 [facility] Comment on above: Performed By: #### L 500.4050, L100.0100 ####[facility] [address] [place], [address] AST [Catalytic activity/Vol] 13 U/L Low 15-37 [facility] Comment on above: Performed By: #### L 500.4050, L100.0100 ####[facility] [address] [place], [address] Bilirubin [Mass/Vol] 0.30 mg/dL Normal 0.20-1.00 [facility] Comment on above: Result Comment: For patients on eltrombopag therapy, use of Dimension Bascom TBIL is not recommended. Performed By: #### L 500.4050, L100.0100 ####[facility] [address] [place], [address] BUN/CRE 31.2 RATIO High 10-20 [facility] Comment on above: Performed By: #### L 500.4050, L100.0100 ####[facility] [address] [place], [address] CA,Total 8.7 mg/dL Normal 8.5-10.1 [facility] Comment on above: Performed By: #### L 500.4050, L100.0100 ####[facility] [address] [place], [address] Chloride [Moles/Vol] 110 mmol/L High 98-107 [facility] Comment on above: Performed By: #### L 500.4050, L100.0100 ####[facility] [address] [place], [address] CO2 [Moles/Vol] 24.0 mmol/L Normal 21.0-32.0 [facility] Comment on above: Performed By: #### L 500.4050, L100.0100 ####[facility] [address] [place], [address] Creatinine [Mass/Vol] 0.45 mg/dL Low 0.55-1.02 [facility] Comment on above: Result Comment: The validity of the calculated GFR GFRAA in patients over70 years has not been determined. Clinical correlation isessential. Performed By: #### L 500.4050, L100.0100 ####[facility] [address] [place], [address] ECRCL 145.23 ml/min Normal [facility] Comment on above: Performed By: #### L 500.4050, L100.0100 ####[facility] [address] [place], [address] EST GFR - AA 183 mL/min Normal >60 [facility] Comment on above: Result Comment: Afri can Nigerian GFR Calc Performed By: #### L 500.4050, L100.0100 ####[facility] [address] [place], [address] GAP 5 Normal 5-15 [facility] Comment on above: Performed By: #### L 500.4050, L100.0100 ####[facility] [address] [place], [address] GFR/1.73 sq M.predicted among non-blacks MDRD (S/P/Bld) [Vol rate/Area] 152 mL/min/{1.73_m2} Normal >60 [facility] Comment on above: Result Comment: Non- GFR Calc Performed By: #### L 500.4050, L100.0100 ####[facility] [address] [place], [address] Globulin (S) [Mass/Vol] 3.9 g/dL Normal 2.2-4.2 [facility] Comment on above: Performed By: #### L 500.4050, L100.0100 ####[facility] [address] [place], [address] Glucose [Mass/Vol] 127 mg/dL High 74-106 [facility] Comment on above: Result Comment: Fast ing Glucose result greater than or equal to 126 mg/dLsuggests DIABETES MELLITUS per A.D.A. criteria. Performed By: #### L 500.4050, L100.0100 ####[facility] [address] [place], [address] Potassium [Moles/Vol] 3.6 mmol/L Normal 3.5-5.1 [facility] Comment on above: Performed By: #### L 500.4050, L100.0100 ####[facility] [address] [place], [address] Sodium [Moles/Vol] 139 mmol/L Normal 136-145 [facility] Comment on above: Performed By: #### L 500.4050, L100.0100 ####[facility] [address] [place], [address] T PROT 6.7 g/dL Normal 6.4-8.2 [facility] Comment on above: Performed By: #### L 500.4050, L100.0100 ####[facility] [address] [place], [address] Urea nitrogen [Mass/Vol] 14 mg/dL Normal 7-18 [facility] Comment on above: Performed By: #### L 500.4050, L100.0100 ####[facility] [address] [place], [address] MR/PN.GIon 01-29-2024 MR/PN.GI Normal [facility] Abdomen/Pelvis W IV Cont ONL Yon 01-28-2024 Abdomen/Pelvis W IV Cont ONLY Normal [facility] Basic Metabolic Profile (BMP )on 01-28-2024 BUN/CRE 29.2 RATIO High 10-20 [facility] Comment on above: Performed By: #### L 500.3400, L501.2450, L100.0100, L500.2500 ####[facility] [address] [place], [address] CA,Total 9.3 mg/dL Normal 8.5-10.1 [facility] Comment on above: Performed By: #### L 500.3400, L501.2450, L100.0100, L500.2500 ####[facility] [address] [place], [address] Chloride [Moles/Vol] 107 mmol/L Normal 98-107 [facility] Comment on above: Performed By: #### L 500.3400, L501.2450, L100.0100, L500.2500 ####[facility] [address] [place], [address] CO2 [Moles/Vol] 25.0 mmol/L Normal 21.0-32.0 [facility] Comment on above: Performed By: #### L 500.3400, L501.2450, L100.0100, L500.2500 ####[facility] [address] [place], [address] Creatinine [Mass/Vol] 0.72 mg/dL Normal 0.55-1.02 [facility] Comment on above: Result Comment: The validity of the calculated GFR GFRAA in patients over70 years has not been determined. Clinical correlation isessential. Performed By: #### L 500.3400, L501.2450, L100.0100, L500.2500 ####[facility] [address] [place], [address] ECRCL 90.98 ml/min Normal [facility] Comment on above: Performed By: #### L 500.3400, L501.2450, L100.0100, L500.2500 ####[facility] [address] [place], [address] EST GFR - AA 106 mL/min Normal >60 [facility] Comment on above: Result Comment: Afri can Nigerian GFR Calc Performed By: #### L 500.3400, L501.2450, L100.0100, L500.2500 ####[facility] [address] [place], [address] GAP 6 Normal 5-15 [facility] Comment on above: Performed By: #### L 500.3400, L501.2450, L100.0100, L500.2500 ####[facility] [address] [place], [address] GFR/1.73 sq M.predicted among non-blacks MDRD (S/P/Bld) [Vol rate/Area] 88 mL/min/{1.73_m2} Normal >60 [facility] Comment on above: Result Comment: Non- GFR Calc Performed By: #### L 500.3400, L501.2450, L100.0100, L500.2500 ####[facility] [address] [place], [address] Glucose [Mass/Vol] 178 mg/dL High 74-106 [facility] Comment on above: Result Comment: Fast ing Glucose result greater than or equal to 126 mg/dLsuggests DIABETES MELLITUS per A.D.A. criteria. Performed By: #### L 500.3400, L501.2450, L100.0100, L500.2500 ####[facility] [address] [place], [address] Potassium [Moles/Vol] 3.6 mmol/L Normal 3.5-5.1 [facility] Comment on above: Performed By: #### L 500.3400, L501.2450, L100.0100, L500.2500 ####[facility] [address] [place], [address] Sodium [Moles/Vol] 138 mmol/L Normal 136-145 [facility] Comment on above: Performed By: #### L 500.3400, L501.2450, L100.0100, L500.2500 ####[facility] [address] [place], [address] Urea nitrogen [Mass/Vol] 21 mg/dL High 7-18 [facility] Comment on above: Performed By: #### L 500.3400, L501.2450, L100.0100, L500.2500 ####[facility] [address] [place], [address] Bedside Glucoseon 01-28-2024 FINGERSTICK GLU 106 mg/dL Normal 74-106 [facility] Comment on above: Result Comment: SARA GEMENT OF PATIENT CARE PER NURSING PROTOCOL Performed By: #### L 501.080 ####[facility] [address] [place], [address] FINGERSTICK GLU 106 mg/dL Normal 74-106 [facility] Comment on above: Result Comment: SARA GEMENT OF PATIENT CARE PER NURSING PROTOCOL Performed By: #### L 501.080 ####[facility] [address] [place], [address] FINGERSTICK GLU 106 mg/dL Normal 74-106 [facility] Comment on above: Result Comment: SARA GEMENT OF PATIENT CARE PER NURSING PROTOCOL Performed By: #### L 501.080 ####[facility] [address] [place], [address] FINGERSTICK GLU 141 mg/dL High 74-106 [facility] Comment on above: Result Comment: SARA GEMENT OF PATIENT CARE PER NURSING PROTOCOL Performed By: #### L 501.080 ####[facility] [address] [place], [address] CBC W/Diff, Automatedon 08-0 Absolute Lymph 2.40 X10 3/uL Normal 0.83-4.51 [facility] Comment on above: Performed By: #### L 500.3400, L501.2450, L100.0100, L500.2500 ####[facility] [address] [place], [address] Absolute Neut 6.8 X10 3/uL Normal 2.0-7.7 [facility] Comment on above: Performed By: #### L 500.3400, L501.2450, L100.0100, L500.2500 ####[facility] [address] [place], [address] Basophils/100 WBC (Bld) 0.7 % Normal 0-1 [facility] Comment on above: Performed By: #### L 500.3400, L501.2450, L100.0100, L500.2500 ####[facility] [address] [place], [address] Eosinophils/100 WBC (Bld) 3.1 % Normal 0-5 [facility] Comment on above: Performed By: #### L 500.3400, L501.2450, L100.0100, L500.2500 ####[facility] [address] [place], [address] Erythrocyte distribution width (RBC) [Ratio] 14.8 % High 11.6-14.6 [facility] Comment on above: Performed By: #### L 500.3400, L501.2450, L100.0100, L500.2500 ####[facility] [address] [place], [address] Hematocrit (Bld) [Volume fraction] 49.3 % High 37-47 [facility] Comment on above: Performed By: #### L 500.3400, L501.2450, L100.0100, L500.2500 ####[facility] [address] [place], [address] Hemoglobin (Bld) [Mass/Vol] 15.8 g/dL High 12.0-15.0 [facility] Comment on above: Performed By: #### L 500.3400, L501.2450, L100.0100, L500.2500 ####[facility] [address] [place], [address] IG% 0.300 Normal 0.0-0.9 [facility] Comment on above: Result Comment: IG% - Immature Granulocytes (promyelocytes, myelocytes andmetamyelocytes) > 1% indicates that a LEFT SHIFT is Present. Performed By: #### L 500.3400, L501.2450, L100.0100, L500.2500 ####[facility] [address] [place], [address] Lymphocytes/100 WBC (Bld) 23.0 % Normal 19-41 [facility] Comment on above: Performed By: #### L 500.3400, L501.2450, L100.0100, L500.2500 ####[facility] [address] [place], [address] MCH (RBC) [Entitic mass] 28.1 pg Normal 27.0-32.0 [facility] Comment on above: Performed By: #### L 500.3400, L501.2450, L100.0100, L500.2500 ####[facility] [address] [place], [address] MCHC (RBC) [Mass/Vol] 32.0 g/dL Normal 32-36 [facility] Comment on above: Performed By: #### L 500.3400, L501.2450, L100.0100, L500.2500 ####[facility] [address] [place], [address] MCV (RBC) [Entitic vol] 87.6 fL Normal 81-99 [facility] Comment on above: Performed By: #### L 500.3400, L501.2450, L100.0100, L500.2500 ####[facility] [address] [place], [address] Monocytes/100 WBC (Bld) 7.5 % Normal 0-10 [facility] Comment on above: Performed By: #### L 500.3400, L501.2450, L100.0100, L500.2500 ####[facility] [address] [place], [address] Neutrophils/100 WBC (Bld) 65.4 % Normal 47-70 [facility] Comment on above: Performed By: #### L 500.3400, L501.2450, L100.0100, L500.2500 ####[facility] [address] [place], [address] Nucleated RBC (Bld) [#/Vol] 0 10*3/uL Normal 0-5 [facility] Comment on above: Performed By: #### L 500.3400, L501.2450, L100.0100, L500.2500 ####[facility] [address] [place], [address] Platelet mean volume (Bld) [Entitic vol] 10.0 fL Normal 6.2-12.0 [facility] Comment on above: Performed By: #### L 500.3400, L501.2450, L100.0100, L500.2500 ####[facility] [address] [place], [address] Platelets (Bld) [#/Vol] 200 10*3/uL Normal 150-450 [facility] Comment on above: Performed By: #### L 500.3400, L501.2450, L100.0100, L500.2500 ####[facility] [address] [place], [address] RBC (Bld) [#/Vol] 5.63 10*6/uL High 4.2-5.4 [facility] Comment on above: Performed By: #### L 500.3400, L501.2450, L100.0100, L500.2500 ####[facility] [address] [place], [address] RDW SD 47.0 fl High 35.1-43.9 [facility] Comment on above: Performed By: #### L 500.3400, L501.2450, L100.0100, L500.2500 ####[facility] [address] [place], [address] WBC (Bld) [#/Vol] 10.4 10*3/uL Normal 4.4-11.0 [facility] Comment on above: Performed By: #### L 500.3400, L501.2450, L100.0100, L500.2500 ####[facility] [address] [place], [address] Emergency Department Summary on 01-28-2024 Emergency Department Summary Normal [facility] H AND P Exam - Hospitaliston 01-28-2024 H&P Exam - Hospitalist Normal [facility] Lipaseon 01-28-2024 Lipase [Catalytic activity/Vol] U/L High 13-75 [facility] Comment on above: Result Comment: Buck truong note:LIPASE revised reference range effective 22.New Lipase methodology. Expected to produce lower valuesthan the previous assay method.NEW Reference Range: 13 - 75 U/L Performed By: #### L 500.3400, L501.2450, L100.0100, L500.2500 ####[facility] [address] [place], [address] Liver Profileon 01-28-2024 Albumin [Mass/Vol] 3.5 g/dL Normal 3.2-5.0 [facility] Comment on above: Performed By: #### L 500.3400, L501.2450, L100.0100, L500.2500 ####[facility] [address] [place], [address] ALK P 99 U/L Normal 45-117 [facility] Comment on above: Performed By: #### L 500.3400, L501.2450, L100.0100, L500.2500 ####[facility] [address] [place], [address] ALT [Catalytic activity/Vol] 15 U/L Normal 13-56 [facility] Comment on above: Performed By: #### L 500.3400, L501.2450, L100.0100, L500.2500 ####[facility] [address] [place], [address] AST [Catalytic activity/Vol] 12 U/L Low 15-37 [facility] Comment on above: Performed By: #### L 500.3400, L501.2450, L100.0100, L500.2500 ####[facility] [address] [place], [address] Bilirubin [Mass/Vol] 0.40 mg/dL Normal 0.20-1.00 [facility] Comment on above: Result Comment: For patients on eltrombopag therapy, use of Dimension Bascom TBIL is not recommended. Performed By: #### L 500.3400, L501.2450, L100.0100, L500.2500 ####[facility] [address] [place], [address] Bilirubin.direct [Mass/Vol] 0.11 mg/dL Normal 0.00-0.30 [facility] Comment on above: Performed By: #### L 500.3400, L501.2450, L100.0100, L500.2500 ####[facility] [address] [place], [address] Globulin (S) [Mass/Vol] 4.4 g/dL High 2.2-4.2 [facility] Comment on above: Performed By: #### L 500.3400, L501.2450, L100.0100, L500.2500 ####[facility] [address] [place], [address] T PROT 7.9 g/dL Normal 6.4-8.2 [facility] Comment on above: Performed By: #### L 500.3400, L501.2450, L100.0100, L500.2500 ####[facility] [address] [place], [address] MR/CON.PCM.GIon 01-28-2024 MR/CON.PCM.GI Normal [facility] MRCP Abdomen without Contras ton 01-28-2024 MRCP Abdomen without Contrast Normal [facility] CBC W/Diff, Automatedon 11-27 Absolute Lymph 2.43 X10 3/uL Normal 0.83-4.51 [facility] Comment on above: Performed By: #### L 500.4050, L100.0100 ####[facility] [address] [place], [address] Absolute Neut 4.5 X10 3/uL Normal 2.0-7.7 [facility] Comment on above: Performed By: #### L 500.4050, L100.0100 ####[facility] [address] [place], [address] Basophils/100 WBC (Bld) 0.9 % Normal 0-1 [facility] Comment on above: Performed By: #### L 500.4050, L100.0100 ####[facility] [address] [place], [address] Eosinophils/100 WBC (Bld) 4.4 % Normal 0-5 [facility] Comment on above: Performed By: #### L 500.4050, L100.0100 ####[facility] [address] [place], [address] Erythrocyte distribution width (RBC) [Ratio] 14.8 % High 11.6-14.6 [facility] Comment on above: Performed By: #### L 500.4050, L100.0100 ####[facility] [address] [place], [address] Hematocrit (Bld) [Volume fraction] 49.1 % High 37-47 [facility] Comment on above: Performed By: #### L 500.4050, L100.0100 ####[facility] [address] [place], [address] Hemoglobin (Bld) [Mass/Vol] 15.7 g/dL High 12.0-15.0 [facility] Comment on above: Performed By: #### L 500.4050, L100.0100 ####[facility] [address] [place], [address] IG% 0.400 Normal 0.0-0.9 [facility] Comment on above: Result Comment: IG% - Immature Granulocytes (promyelocytes, myelocytes andmetamyelocytes) > 1% indicates that a LEFT SHIFT is Present. Performed By: #### L 500.4050, L100.0100 ####[facility] [address] [place], [address] Lymphocytes/100 WBC (Bld) 30.9 % Normal 19-41 [facility] Comment on above: Performed By: #### L 500.4050, L100.0100 ####[facility] [address] [place], [address] MCH (RBC) [Entitic mass] 28.3 pg Normal 27.0-32.0 [facility] Comment on above: Performed By: #### L 500.4050, L100.0100 ####[facility] [address] [place], [address] MCHC (RBC) [Mass/Vol] 32.0 g/dL Normal 32-36 [facility] Comment on above: Performed By: #### L 500.4050, L100.0100 ####[facility] [address] [place], [address] MCV (RBC) [Entitic vol] 88.6 fL Normal 81-99 [facility] Comment on above: Performed By: #### L 500.4050, L100.0100 ####[facility] [address] [place], [address] Monocytes/100 WBC (Bld) 6.7 % Normal 0-10 [facility] Comment on above: Performed By: #### L 500.4050, L100.0100 ####[facility] [address] [place], [address] Neutrophils/100 WBC (Bld) 56.7 % Normal 47-70 [facility] Comment on above: Performed By: #### L 500.4050, L100.0100 ####[facility] [address] [place], [address] Nucleated RBC (Bld) [#/Vol] 0 10*3/uL Normal 0-5 [facility] Comment on above: Performed By: #### L 500.4050, L100.0100 ####[facility] [address] [place], [address] Platelet mean volume (Bld) [Entitic vol] 10.5 fL Normal 6.2-12.0 [facility] Comment on above: Performed By: #### L 500.4050, L100.0100 ####[facility] [address] [place], [address] Platelets (Bld) [#/Vol] 219 10*3/uL Normal 150-450 [facility] Comment on above: Performed By: #### L 500.4050, L100.0100 ####[facility] [address] [place], [address] RBC (Bld) [#/Vol] 5.54 10*6/uL High 4.2-5.4 [facility] Comment on above: Performed By: #### L 500.4050, L100.0100 ####[facility] [address] [place], [address] RDW SD 48.4 fl High 35.1-43.9 [facility] Comment on above: Performed By: #### L 500.4050, L100.0100 ####[facility] [address] [place], [address] WBC (Bld) [#/Vol] 7.9 10*3/uL Normal 4.4-11.0 [facility] Comment on above: Performed By: #### L 500.4050, L100.0100 ####[facility] [address] [place], [address] Comprehensive Metabolic Prof il 12-16-2023 Albumin [Mass/Vol] 3.5 g/dL Normal 3.2-5.0 [facility] Comment on above: Performed By: #### L 500.4050, L100.0100 ####[facility] [address] [place], [address] Albumin/Globulin [Mass ratio] 0.8 {ratio} Low 0.9-2.4 [facility] Comment on above: Performed By: #### L 500.4050, L100.0100 ####[facility] [address] [place], [address] ALK P 102 U/L Normal 45-117 [facility] Comment on above: Performed By: #### L 500.4050, L100.0100 ####[facility] [address] [place], [address] ALT [Catalytic activity/Vol] 17 U/L Normal 13-56 [facility] Comment on above: Performed By: #### L 500.4050, L100.0100 ####[facility] [address] [place], [address] AST [Catalytic activity/Vol] 13 U/L Low 15-37 [facility] Comment on above: Performed By: #### L 500.4050, L100.0100 ####[facility] [address] [place], [address] Bilirubin [Mass/Vol] 0.40 mg/dL Normal 0.20-1.00 [facility] Comment on above: Result Comment: For patients on eltrombopag therapy, use of Dimension Bascom TBIL is not recommended. Performed By: #### L 500.4050, L100.0100 ####[facility] [address] [place], [address] BUN/CRE 24.9 RATIO High 10-20 [facility] Comment on above: Performed By: #### L 500.4050, L100.0100 ####[facility] [address] [place], [address] CA,Total 9.8 mg/dL Normal 8.5-10.1 [facility] Comment on above: Performed By: #### L 500.4050, L100.0100 ####[facility] [address] [place], [address] Chloride [Moles/Vol] 108 mmol/L High 98-107 [facility] Comment on above: Performed By: #### L 500.4050, L100.0100 ####[facility] [address] [place], [address] CO2 [Moles/Vol] 25.0 mmol/L Normal 21.0-32.0 [facility] Comment on above: Performed By: #### L 500.4050, L100.0100 ####[facility] [address] [place], [address] Creatinine [Mass/Vol] 0.80 mg/dL Normal 0.55-1.02 [facility] Comment on above: Result Comment: The validity of the calculated GFR GFRAA in patients over70 years has not been determined. Clinical correlation isessential. Performed By: #### L 500.4050, L100.0100 ####[facility] [address] [place], [address] EST GFR - AA 94 mL/min Normal >60 [facility] Comment on above: Result Comment: Afri can Nigerian GFR Calc Performed By: #### L 500.4050, L100.0100 ####[facility] [address] [place], [address] GAP 5 Normal 5-15 [facility] Comment on above: Performed By: #### L 500.4050, L100.0100 ####[facility] [address] [place], [address] GFR/1.73 sq M.predicted among non-blacks MDRD (S/P/Bld) [Vol rate/Area] 77 mL/min/{1.73_m2} Normal >60 [facility] Comment on above: Result Comment: Non- GFR Calc Performed By: #### L 500.4050, L100.0100 ####[facility] [address] [place], [address] Globulin (S) [Mass/Vol] 4.4 g/dL High 2.2-4.2 [facility] Comment on above: Performed By: #### L 500.4050, L100.0100 ####[facility] [address] [place], [address] Glucose [Mass/Vol] 135 mg/dL High 74-106 [facility] Comment on above: Result Comment: Fast ing Glucose result greater than or equal to 126 mg/dLsuggests DIABETES MELLITUS per A.D.A. criteria. Performed By: #### L 500.4050, L100.0100 ####[facility] [address] [place], [address] Potassium [Moles/Vol] 4.1 mmol/L Normal 3.5-5.1 [facility] Comment on above: Performed By: #### L 500.4050, L100.0100 ####[facility] [address] [place], [address] Sodium [Moles/Vol] 138 mmol/L Normal 136-145 [facility] Comment on above: Performed By: #### L 500.4050, L100.0100 ####[facility] [address] [place], [address] T PROT 7.9 g/dL Normal 6.4-8.2 [facility] Comment on above: Performed By: #### L 500.4050, L100.0100 ####[facility] [address] [place], [address] Urea nitrogen [Mass/Vol] 20 mg/dL High 7-18 [facility] Comment on above: Performed By: #### L 500.4050, L100.0100 ####[facility] [address] [place], [address] Absolute lymphocyte countOrd ered By: Diana Ramos on 09-23-2023 Lymphocytes Auto (Unsp spec) [#/Vol] 1.94 10*3/uL 0.83-4.51 [facility] Automated lymphocyte count a s percentage of total leukocytesOrdered By: Diana Ramos on 09-23-2023 Lymphocytes/100 WBC Auto (Unsp spec) 27.4 % 19-41 [facility] Basophil percentageOrdered B y: Diana Ramos on 09-23-2023 Basophils/100 WBC (Bld) 0.7 % 0-1 [facility] Bilirubin [Mass/Vol] 0.40 mg/dL 0.20-1.00 [facility] Comment on above: For patients on eltr ombopag therapy, use of Dimension Bascom TBIL is not recommended. Chloride [Moles/Vol] 108 mmol/L 98-107 [facility] Eosinophils/100 WBC (Bld) 4.8 % 0-5 [facility] Glucose [Mass/Vol] 144 mg/dL 74-106 [facility] Comment on above: Fasting Glucose resu lt greater than or equal to 126 mg/dL suggests DIABETES MELLITUS per A.D.A. criteria. Hemoglobin (Bld) [Mass/Vol] 15.1 g/dL 12.0-15.0 [facility] Monocytes/100 WBC (Bld) 7.9 % 0-10 [facility] Neutrophils (Bld) [#/Vol] 4.2 10*3/uL 2.0-7.7 [facility] Neutrophils/100 WBC (Bld) 58.9 % 47-70 [facility] Potassium [Moles/Vol] 4.1 mmol/L 3.5-5.1 [facility] Protein [Mass/Vol] 7.8 g/dL 6.4-8.2 [facility] Sodium [Moles/Vol] 139 mmol/L 136-145 [facility] WBC (Bld) [#/Vol] 7.1 10*3/uL 4.4-11.0 [facility] Determination of erythrocyte mean corpuscular volume (MCV)Ordered By: Diana Ramos on 09-23-2023 MCV (RBC) [Entitic vol] 90.6 fL 81-99 [facility] Erythrocyte distribution wid th ratioOrdered By: Diana Ramos on 09-23-2023 Erythrocyte distribution width (RBC) [Ratio] 13.6 % 11.6-14.6 [facility] Erythrocyte distribution wid th standard deviationOrdered By: Diana Ramos on 09-23-2023 Erythrocyte distribution width (RBC) [Entitic vol] 45.8 fL 35.1-43.9 [facility] Hematocrit Auto (Bld) [Volum e fraction]Ordered By: Diana Ramos on 09-23-2023 Hematocrit (Bld) [Volume fraction] 47.2 % 37-47 [facility] Immature granulocytes/100 WB C Auto (Bld)Ordered By: Diana Ramos on 09-23-2023 Immature granulocytes/100 WBC (Bld) 0.300 % 0.0-0.9 [facility] Comment on above: IG% - Immature Granu locytes (promyelocytes, myelocytes and metamyelocytes) > 1% indicates that a LEFT SHIFT is Present. Laboratory - Chemistry and C hemistry - challengeOrdered By: Diana Ramos on 09-23-2023 Albumin/Globulin [Mass ratio] 0.9 {ratio} 0.9-2.4 [facility] ALP [Catalytic activity/Vol] 95 U/L 45-117 [facility] ALT [Catalytic activity/Vol] 16 U/L 13-56 [facility] CO2 [Moles/Vol] 27.0 mmol/L 21.0-32.0 [facility] Globulin (S) [Mass/Vol] 4.2 g/dL 2.2-4.2 [facility] Urea nitrogen/Creatinine [Mass ratio] 24.0 mg/mg 10-20 [facility] Laboratory - Hematology and Cell countsOrdered By: Diana Ramos on 09-23-2023 MCH (RBC) [Entitic mass] 29.0 pg 27.0-32.0 [facility] MCHC (RBC) [Mass/Vol] 32.0 g/dL 32-36 [facility] Nucleated RBC/100 WBC (Bld) [Ratio] 0 % 0-5 [facility] Platelet mean volume (Bld) [Entitic vol] 10.4 fL 6.2-12.0 [facility] Platelets (Bld) [#/Vol] 189 10*3/uL 150-450 [facility] No Panel InformationOrdered By: Diana Ramos on 09-23-2023 Estimated GFR (MDRD) Amer 108 mL/min >60 [facility] Comment on above: GFR Calc Estimated GFR (MDRD) Non-Af Amer 90 mL/min >60 [facility] Comment on above: Non- GFR Calc RBC Auto (Bld) [#/Vol]Ordere d By: Diana Raoms on 09-23-2023 RBC (Bld) [#/Vol] 5.21 10*6/uL 4.2-5.4 [facility] Serum or plasma calcium jasiel urement (mass/volume)Ordered By: Diana Ramos on 09-23-2023 Calcium [Mass/Vol] 9.7 mg/dL 8.5-10.1 [facility] Serum or plasma creatinine m easurement (mass/volume)Ordered By: Diana Ramos on 09-23-2023 Creatinine [Mass/Vol] 0.71 mg/dL 0.55-1.02 [facility] Comment on above: The validity of the calculated GFR & GFRAA in patients over 70 years has not been determined. Clinical correlation is essential. Serum or plasma urea nitroge n measurement (mass/volume)Ordered By: Diana Ramos on 09-23-2023 Urea nitrogen [Mass/Vol] 17 mg/dL 7-18 [facility] Thin prep Papanicolaou smear with manual screeningOrdered By: Diana Ramos on 09-23-2023 Thin prep Papanicolaou smear with manual screening 3.6 g/dL 3.2-5.0 [facility] Thin prep Papanicolaou smear with manual screening 11 U/L 15-37 [facility] Thin prep Papanicolaou smear with manual screening 4 5-15 [facility] Absolute lymphocyte countOrd ered By: Diana Ramos on 06-30-2023 Lymphocytes Auto (Unsp spec) [#/Vol] 1.96 10*3/uL 0.83-4.51 [facility] Basophil percentageOrdered B y: Diana Ramos on 06-30-2023 Basophils/100 WBC (Bld) 0.6 % 0-1 [facility] Bilirubin [Mass/Vol] 0.40 mg/dL 0.20-1.00 [facility] Comment on above: For patients on eltr ombopag therapy, use of Dimension Bascom TBIL is not recommended. Chloride [Moles/Vol] 105 mmol/L 98-107 [facility] Eosinophils/100 WBC (Bld) 2.7 % 0-5 [facility] Glucose [Mass/Vol] 111 mg/dL 74-106 [facility] Comment on above: Fasting Glucose resu lt from 100 to 125 mg/dL suggests IMPAIRED HOMEOSTASIS per A.D.A. criteria. Neutrophils (Bld) [#/Vol] 5.3 10*3/uL 2.0-7.7 [facility] Neutrophils/100 WBC (Bld) 64.8 % 47-70 [facility] Potassium [Moles/Vol] 4.0 mmol/L 3.5-5.1 [facility] Protein [Mass/Vol] 7.7 g/dL 6.4-8.2 [facility] Sodium [Moles/Vol] 138 mmol/L 136-145 [facility] WBC (Bld) [#/Vol] 8.2 10*3/uL 4.4-11.0 [facility] Blood erythrocytes count (nu mber/volume)Ordered By: Diana Ramos on 06-30-2023 RBC (Bld) [#/Vol] 5.06 10*6/uL 4.2-5.4 [facility] Blood hemoglobin measurement (mass/volume)Ordered By: Diana Ramos on 06-30-2023 Hemoglobin (Bld) [Mass/Vol] 14.3 g/dL 12.0-15.0 [facility] Blood lymphocytes/100 leukoc ytesOrdered By: Diana Ramos on 06-30-2023 Lymphocytes/100 WBC (Bld) 24.0 % 19-41 [facility] Blood monocytes/100 leukocyt esOrdered By: Diana Ramos on 06-30-2023 Monocytes/100 WBC (Bld) 7.8 % 0-10 [facility] Blood platelet mean volumeOr dered By: Diana Ramos on 06-30-2023 Platelet mean volume (Bld) [Entitic vol] 10.4 fL 6.2-12.0 [facility] Determination of erythrocyte mean corpuscular volume (MCV)Ordered By: Diana Ramos on 06-30-2023 MCV (RBC) [Entitic vol] 89.9 fL 81-99 [facility] Hematocrit Auto (Bld) [Volum e fraction]Ordered By: Diana Ramos on 06-30-2023 Hematocrit (Bld) [Volume fraction] 45.5 % 37-47 [facility] Laboratory - Chemistry and C hemistry - challengeOrdered By: Diana Ramos on 06-30-2023 ALP [Catalytic activity/Vol] 109 U/L 45-117 [facility] ALT [Catalytic activity/Vol] 27 U/L 13-56 [facility] CO2 [Moles/Vol] 24.0 mmol/L 21.0-32.0 [facility] Globulin (S) [Mass/Vol] 4.0 g/dL 2.2-4.2 [facility] Urea nitrogen/Creatinine [Mass ratio] 29.4 mg/mg 10-20 [facility] Laboratory - Hematology and Cell countsOrdered By: Diana Ramos on 06-30-2023 Erythrocyte distribution width (RBC) [Entitic vol] 49.1 fL 35.1-43.9 [facility] Erythrocyte distribution width (RBC) [Ratio] 14.9 % 11.6-14.6 [facility] Immature granulocytes/100 WBC (Bld) 0.100 % 0.0-0.9 [facility] Comment on above: IG% - Immature Granu locytes (promyelocytes, myelocytes and metamyelocytes) > 1% indicates that a LEFT SHIFT is Present. MCH (RBC) [Entitic mass] 28.3 pg 27.0-32.0 [facility] Nucleated RBC/100 WBC (Bld) [Ratio] 0 % 0-5 [facility] MCHC Auto (RBC) [Mass/Vol]Or dered By: Diana Ramos on 06-30-2023 MCHC (RBC) [Mass/Vol] 31.4 g/dL 32-36 [facility] No Panel InformationOrdered By: Diana Ramos on 06-30-2023 Estimated GFR (MDRD) Amer 84 mL/min >60 [facility] Comment on above: GFR Calc Estimated GFR (MDRD) Non-Af Amer 69 mL/min >60 [facility] Comment on above: Non- GFR Calc Platelets bldOrdered By: Katarina Ramos on 06-30-2023 Platelets (Bld) [#/Vol] 209 10*3/uL 150-450 [facility] Serum or plasma albumin jasiel urement (mass/volume)Ordered By: Diana Ramos on 06-30-2023 Albumin [Mass/Vol] 3.7 g/dL 3.2-5.0 [facility] Serum or plasma albumin/glob ulin mass ratioOrdered By: Diana Ramos on 06-30-2023 Albumin/Globulin [Mass ratio] 0.9 {ratio} 0.9-2.4 [facility] Serum or plasma calcium jasiel urement (mass/volume)Ordered By: Diana Ramos on 06-30-2023 Calcium [Mass/Vol] 9.0 mg/dL 8.5-10.1 [facility] Serum or plasma creatinine m easurement (mass/volume)Ordered By: Diana Ramos on 06-30-2023 Creatinine [Mass/Vol] 0.88 mg/dL 0.55-1.02 [facility] Comment on above: The validity of the calculated GFR & GFRAA in patients over 70 years has not been determined. Clinical correlation is essential. Serum or plasma urea nitroge n measurement (mass/volume)Ordered By: Diana Ramos on 06-30-2023 Urea nitrogen [Mass/Vol] 26 mg/dL 7-18 [facility] Thin prep Papanicolaou smear with manual screeningOrdered By: Diana Ramos on 06-30-2023 Thin prep Papanicolaou smear with manual screening 20 U/L 15-37 [facility] Thin prep Papanicolaou smear with manual screening 9 5-15 [facility] Laboratory - Chemistry and C hemistry - challengeOrdered By: Nehemias Arizmendi on 05-17-2023 Free T4 [Mass/Vol] 1.43 ng/dL 0.76-1.46 [facility] No Panel InformationOrdered By: Nehemias Arizmendi on 05-17-2023 Free Triiodothyronine (T3) pg/dL 1.9 pg/mL 2.18-3.98 [facility] Thyroid Stimulating Hormone (TSH) 1.40 uIU/mL 0.358-3.74 [facility] Absolute lymphocyte countOrd ered By: Nehemias Arizmendi on 03-30-2023 Lymphocytes Auto (Unsp spec) [#/Vol] 2.30 10*3/uL 0.83-4.51 [facility] Basophil percentageOrdered B y: Nehemias Arizmendi on 03-30-2023 Basophils/100 WBC (Bld) 0.9 % 0-1 [facility] Bilirubin [Mass/Vol] 0.30 mg/dL 0.20-1.00 [facility] Comment on above: For patients on eltr ombopag therapy, use of Dimension Bascom TBIL is not recommended. Chloride [Moles/Vol] 108 mmol/L 98-107 [facility] Eosinophils/100 WBC (Bld) 2.8 % 0-5 [facility] Glucose [Mass/Vol] 122 mg/dL 74-106 [facility] Comment on above: Fasting Glucose resu lt from 100 to 125 mg/dL suggests IMPAIRED HOMEOSTASIS per A.D.A. criteria. Neutrophils (Bld) [#/Vol] 4.7 10*3/uL 2.0-7.7 [facility] Neutrophils/100 WBC (Bld) 59.7 % 47-70 [facility] Potassium [Moles/Vol] 4.3 mmol/L 3.5-5.1 [facility] Protein [Mass/Vol] 7.7 g/dL 6.4-8.2 [facility] Sodium [Moles/Vol] 140 mmol/L 136-145 [facility] WBC (Bld) [#/Vol] 7.9 10*3/uL 4.4-11.0 [facility] Blood erythrocytes count (nu mber/volume)Ordered By: Nehemias Arizmendi on 03-30-2023 RBC (Bld) [#/Vol] 4.98 10*6/uL 4.2-5.4 [facility] Blood hemoglobin measurement (mass/volume)Ordered By: Nehemias Arizmendi on 03-30-2023 Hemoglobin (Bld) [Mass/Vol] 13.7 g/dL 12.0-15.0 [facility] Blood lymphocytes/100 leukoc ytesOrdered By: Nehemias Arizmendi on 03-30-2023 Lymphocytes/100 WBC (Bld) 29.1 % 19-41 [facility] Blood monocytes/100 leukocyt esOrdered By: Nehemias Arizmendi on 03-30-2023 Monocytes/100 WBC (Bld) 7.1 % 0-10 [facility] Blood platelet mean volumeOr dered By: Nehemias Arizmendi on 03-30-2023 Platelet mean volume (Bld) [Entitic vol] 10.4 fL 6.2-12.0 [facility] Determination of erythrocyte mean corpuscular volume (MCV)Ordered By: Nehemias Arizmendi on 03-30-2023 MCV (RBC) [Entitic vol] 88.2 fL 81-99 [facility] Hematocrit Auto (Bld) [Volum e fraction]Ordered By: Nehemias Arizmendi on 03-30-2023 Hematocrit (Bld) [Volume fraction] 43.9 % 37-47 [facility] Laboratory - Chemistry and C hemistry - challengeOrdered By: Nehmeias Arizmendi on 03-30-2023 ALP [Catalytic activity/Vol] 93 U/L 45-117 [facility] ALT [Catalytic activity/Vol] 15 U/L 13-56 [facility] CO2 [Moles/Vol] 25.0 mmol/L 21.0-32.0 [facility] Globulin (S) [Mass/Vol] 4.3 g/dL 2.2-4.2 [facility] Urea nitrogen/Creatinine [Mass ratio] 25.7 mg/mg 10-20 [facility] Laboratory - Hematology and Cell countsOrdered By: Nehemias Arizmendi on 03-30-2023 Erythrocyte distribution width (RBC) [Entitic vol] 49.9 fL 35.1-43.9 [facility] Erythrocyte distribution width (RBC) [Ratio] 15.6 % 11.6-14.6 [facility] Immature granulocytes/100 WBC (Bld) 0.400 % 0.0-0.9 [facility] Comment on above: IG% - Immature Granu locytes (promyelocytes, myelocytes and metamyelocytes) > 1% indicates that a LEFT SHIFT is Present. MCH (RBC) [Entitic mass] 27.5 pg 27.0-32.0 [facility] Nucleated RBC/100 WBC (Bld) [Ratio] 0 % 0-5 [facility] [facility] MCHC Auto (RBC) [Mass/Vol]Or dered By: Nehemias Arizmendi on 03-30-2023 MCHC (RBC) [Mass/Vol] 31.2 g/dL 32-36 [facility] No Panel InformationOrdered By: Nehemias Arizmendi on 03-30-2023 Estimated GFR (MDRD) Amer 87 mL/min >60 [facility] Comment on above: GFR Calc Estimated GFR (MDRD) Non-Af Amer 72 mL/min >60 [facility] Comment on above: Non- GFR Calc Platelets bldOrdered By: Norma Arizmendi on 03-30-2023 Platelets (Bld) [#/Vol] 248 10*3/uL 150-450 [facility] Serum or plasma albumin jasiel urement (mass/volume)Ordered By: Nehemias Arizmendi on 03-30-2023 Albumin [Mass/Vol] 3.4 g/dL 3.2-5.0 [facility] Serum or plasma albumin/glob ulin mass ratioOrdered By: Nehemias Arizmendi on 03-30-2023 Albumin/Globulin [Mass ratio] 0.8 {ratio} 0.9-2.4 [facility] Serum or plasma calcium jasiel urement (mass/volume)Ordered By: Nehemias Arizmendi on 03-30-2023 Calcium [Mass/Vol] 9.2 mg/dL 8.5-10.1 [facility] Serum or plasma creatinine m easurement (mass/volume)Ordered By: Nehemias Arizmendi on 03-30-2023 Creatinine [Mass/Vol] 0.86 mg/dL 0.55-1.02 [facility] Comment on above: The validity of the calculated GFR & GFRAA in patients over 70 years has not been determined. Clinical correlation is essential. Serum or plasma urea nitroge n measurement (mass/volume)Ordered By: Nehemias Arizmendi on 03-30-2023 Urea nitrogen [Mass/Vol] 22 mg/dL 7-18 [facility] Thin prep Papanicolaou smear with manual screeningOrdered By: Nehemias Arizmendi on 03-30-2023 Thin prep Papanicolaou smear with manual screening 12 U/L 15-37 [facility] Thin prep Papanicolaou smear with manual screening 7 5-15 [facility] Basophil percentageOrdered B y: Nehemias Arizmendi on 01-11-2023 Chloride [Moles/Vol] 104 mmol/L 98-107 [facility] Glucose [Mass/Vol] 204 mg/dL 74-106 [facility] Comment on above: Glucose result great er than or equal to 200 mg/dLsuggests DIABETES MELLITUS per A.D.A. criteria. Potassium [Moles/Vol] 3.8 mmol/L 3.5-5.1 [facility] Sodium [Moles/Vol] 140 mmol/L 136-145 [facility] Laboratory - Chemistry and C hemistry - challengeOrdered By: Nehemias Arizmendi on 01-11-2023 CO2 [Moles/Vol] 32.0 mmol/L 21.0-32.0 [facility] Urea nitrogen/Creatinine [Mass ratio] 42.5 mg/mg 10-20 [facility] No Panel InformationOrdered By: Nehemias Arizmendi on 01-11-2023 Estimated GFR (MDRD) Amer 105 mL/min >60 [facility] Comment on above: GFR Calc Estimated GFR (MDRD) Non-Af Amer 87 mL/min >60 [facility] Comment on above: Non- GFR Calc Serum or plasma calcium jasiel urement (mass/volume)Ordered By: Nehemias Arizmendi on 01-11-2023 Calcium [Mass/Vol] 9.3 mg/dL 8.5-10.1 [facility] Serum or plasma creatinine m easurement (mass/volume)Ordered By: Nehemias Arizmendi on 01-11-2023 Creatinine [Mass/Vol] 0.73 mg/dL 0.55-1.02 [facility] Comment on above: The validity of the calculated GFR & GFRAA in patients over 70 years has not been determined. Clinical correlation is essential. Serum or plasma urea nitroge n measurement (mass/volume)Ordered By: Nehemias Arizmendi on 01-11-2023 Urea nitrogen [Mass/Vol] 31 mg/dL 01-12 [facility] Thin prep Papanicolaou smear with manual screeningOrdered By: Nehemias Arizmendi on 01-11-2023 Thin prep Papanicolaou smear with manual screening 11-09 [facility] .Auto Diffon 01-09-2023 Basophil, Absolute 0.0 10 3/mcL Normal 0.0-0.3 [facility] ([place] Comment on above: Performed By: #### L IPID, GFR, PBNP, ADIFF, CBC, ANEU, BMP, MG #### [place] [id number] Basophils/100 WBC (Bld) 0.1 % Normal 0.0-2.5 [facility] ([place]) Comment on above: Performed By: #### L IPID, GFR, PBNP, ADIFF, CBC, ANEU, BMP, MG #### [address] [address] Eosinophil, Absolute 0.0 10 3/mcL Normal 0.0-0.7 [facility] ([place]) Comment on above: Performed By: #### L IPID, GFR, PBNP, ADIFF, CBC, ANEU, BMP, MG #### [address] [address] Eosinophils/100 WBC (Bld) 0.0 % Normal 0.0-6.0 [facility] ([place] Comment on above: Performed By: #### L IPID, GFR, PBNP, ADIFF, CBC, ANEU, BMP, MG #### [address] [address] Lymphocyte, Absolute 0.5 10 3/mcL Low 0.9-4.3 [facility] ([place]) Comment on above: Performed By: #### L IPID, GFR, PBNP, ADIFF, CBC, ANEU, BMP, MG #### [address] [address] Lymphocytes/100 WBC (Bld) 6.1 % Low 20.0-40.0 [facility] ([place] Comment on above: Performed By: #### L IPID, GFR, PBNP, ADIFF, CBC, ANEU, BMP, MG #### [address] [address] Monocyte, Absolute 0.4 10 3/mcL Normal 0.1-1.4 [facility] ([place] Comment on above: Performed By: #### L IPID, GFR, PBNP, ADIFF, CBC, ANEU, BMP, MG #### [address] [address] Monocytes/100 WBC (Bld) 4.7 % Normal 2.0-13.0 [facility] [place] Comment on above: Performed By: #### L IPID, GFR, PBNP, ADIFF, CBC, ANEU, BMP, MG #### [address] [address] Neutrophils/100 WBC (Bld) 89.1 % High 50.0-75.0 [facility] [place] Comment on above: Performed By: #### L IPID, GFR, PBNP, ADIFF, CBC, ANEU, BMP, MG #### [address] [address] .GFRon 01-09-2023 GFR Non- >60 Normal [facility] ([place] Comment on above: Result Comment: GFR Population [...] PBNP, ADIFF, CBC, ANEU, BMP, MG #### [address] [address] GFR >60 Normal [facility] ([place] Comment on above: Result Comment: GFR Population [...] PBNP, ADIFF, CBC, ANEU, BMP, MG #### [address] [address] .NEUABSon 01-09-2023 Neutrophil, Absolute 7.8 10 3/mcL Normal 2.3-8.1 [facility] ([place] Comment on above: Performed By: #### L IPID, GFR, PBNP, ADIFF, CBC, ANEU, BMP, MG #### [address] [address] BMPon 01-09-2023 BUN/Creatinine Ratio 53.7 ratio High 10.0-22.0 [facility] ([place] Comment on above: Performed By: #### L IPID, GFR, PBNP, ADIFF, CBC, ANEU, BMP, MG #### [address] [address] Calcium [Mass/Vol] 8.5 mg/dL Low 8.7-10.4 [facility] ([place]) Comment on above: Performed By: #### L IPID, GFR, PBNP, ADIFF, CBC, ANEU, BMP, MG #### [address] [address] Chloride [Moles/Vol] 104 mmol/L Normal 98-110 [facility] ([place] Comment on above: Performed By: #### L IPID, GFR, PBNP, ADIFF, CBC, ANEU, BMP, MG #### [address] [address] CO2 [Moles/Vol] 34 mmol/L High 22-32 [facility] [place] Comment on above: Performed By: #### L IPID, GFR, PBNP, ADIFF, CBC, ANEU, BMP, MG #### [address] [address] Creatinine [Mass/Vol] 0.41 mg/dL Low 0.50-1.20 [facility] [place] Comment on above: Performed By: #### L IPID, GFR, PBNP, ADIFF, CBC, ANEU, BMP, MG #### [address] [address] Electrolyte Balance 4.0 mEq/L Normal 4.0-15.0 [facility] ([place]) Comment on above: Performed By: #### L IPID, GFR, PBNP, ADIFF, CBC, ANEU, BMP, MG #### [address] [address] Glucose [Mass/Vol] 226 mg/dL High 70-110 [facility] ([place] Comment on above: Performed By: #### L IPID, GFR, PBNP, ADIFF, CBC, ANEU, BMP, MG #### [address] [address] Potassium [Moles/Vol] 4.5 mmol/L Normal 3.5-5.0 [facility] [place] Comment on above: Performed By: #### L IPID, GFR, PBNP, ADIFF, CBC, ANEU, BMP, MG #### [place] [id number] Sodium [Moles/Vol] 142 mmol/L Normal 136-145 [facility] ([place] Comment on above: Performed By: #### L IPID, GFR, PBNP, ADIFF, CBC, ANEU, BMP, MG #### [address] [address] Urea nitrogen [Mass/Vol] 22.0 mg/dL Normal 8.0-22.0 [facility] [place] Comment on above: Performed By: #### L IPID, GFR, PBNP, ADIFF, CBC, ANEU, BMP, MG #### [address] [address] CBCon 01-09-2023 Erythrocyte distribution width (RBC) [Ratio] 14.3 % Normal 11.5-15.5 [facility] [place] Comment on above: Performed By: #### B MP, ANEU, ADIFF, MG, PHOS, CBC, GFR #### [address] [address] Hematocrit (Bld) [Volume fraction] 34.4 % Normal 34.0-46.0 [facility] ([place] Comment on above: Performed By: #### B MP, ANEU, ADIFF, MG, PHOS, CBC, GFR #### [place] [address] Hgb 11.4 G/dL Low 12.0-16.0 [facility] ([place] Comment on above: Performed By: #### B MP, ANEU, ADIFF, MG, PHOS, CBC, GFR #### [place] [address] MCH (RBC) [Entitic mass] 28.6 pg Normal 27.0-33.0 [facility] [place] Comment on above: Performed By: #### B MP, ANEU, ADIFF, MG, PHOS, CBC, GFR #### [place] [address] MCHC 33.1 G/dL Normal 32.0-36.0 [facility] ([place] Comment on above: Performed By: #### B MP, ANEU, ADIFF, MG, PHOS, CBC, GFR #### [place] [address] MCV (RBC) [Entitic vol] 86.3 fL Normal 80.0-99.0 [facility] ([place] Comment on above: Performed By: #### B MP, ANEU, ADIFF, MG, PHOS, CBC, GFR #### [place] [address] Platelet 307 10 3/mcL Normal 150-450 [facility] ([place] Comment on above: Performed By: #### B MP, ANEU, ADIFF, MG, PHOS, CBC, GFR #### [place] [address] Platelet mean volume (Bld) [Entitic vol] 6.7 fL Normal 6.6-10.5 [facility] ([place] Comment on above: Performed By: #### B MP, ANEU, ADIFF, MG, PHOS, CBC, GFR #### [place] [address] RBC 3.98 10 6/mcL Low 4.10-5.30 [facility] ([place] Comment on above: Performed By: #### B MP, ANEU, ADIFF, MG, PHOS, CBC, GFR #### [address] [address] WBC 8.7 10 3/mcL Normal 4.5-10.8 [facility] ([place] Comment on above: Performed By: #### B MP, ANEU, ADIFF, MG, PHOS, CBC, GFR #### [address] [address] LABORATORYOrdered By: Rebeca Siu on 01-09-2023 Blood Glucose Testing Reason Routine (01/09/23 12:25 PM) [facility] Work Phone: Glucose [Mass/Vol] 241 mg/dL Invalid Interpretation Code 70 - 110 mg/dL [facility] Work Phone: LABORATORYOrdered By: Lisa benitez on 01-09-2023 Glucose [Mass/Vol] 228 mg/dL Invalid Interpretation Code 70 - 110 mg/dL [facility] Work Phone: LABORATORYOrdered By: SYSTEM SYSTEM [...] mg/dL ADM SS MCH (RBC) [Entitic mass] 28.6 [...] 10.5 fL Workflow SS Platelets (Bld) [#/Vol] 307 103/mcL Invalid Interpretation Code 150 - 450 10^3/mcL AH Workflow SS Potassium [Moles/Vol] 4.5 mmol/L Invalid Interpretation Code 3.5 - 5.0 mEq/L ADM SS RBC (Bld) [#/Vol] 3.98 106/mcL Invalid Interpretation Code 4.10 - 5.30 10^6/mcL Workflow SS Sodium [Moles/Vol] 142 mmol/L Invalid Interpretation Code 136 - 145 mEq/L ADM SS Urea nitrogen [Mass/Vol] 22.0 mg/dL Invalid Interpretation Code 8.0 - 22.0 mg/dL ADM SS Urea nitrogen/Creatinine [Mass ratio] 53.7 ratio Invalid Interpretation Code 10.0 - 22.0 ratio ADM SS WBC (Bld) [#/Vol] 8.7 103/mcL Invalid Interpretation Code 4.5 - 10.8 10^3/mcL Workflow SS MGon 01-09-2023 Magnesium [Mass/Vol] 1.9 mg/dL Normal 1.6-2.4 [facility] ([place] Comment on above: Performed By: #### L IPID, GFR, PBNP, ADIFF, CBC, ANEU, BMP, MG #### [place] [address] PHOSon 01-09-2023 Phosphate [Mass/Vol] 2.5 mg/dL Normal 2.4-5.1 [facility] ([place] Comment on above: Result Comment: No te - New Reference Range in effect 20 Performed By: #### L IPID, GFR, PBNP, ADIFF, CBC, ANEU, BMP, MG #### [place] [address] .Auto Diffon 01-08-2023 Basophil, Absolute 0.0 10 3/mcL Normal 0.0-0.3 [facility] ([place] Comment on above: Performed By: #### L IPID, GFR, PBNP, ADIFF, CBC, ANEU, BMP, MG #### [address] [address] Basophils/100 WBC (Bld) 0.4 % Normal 0.0-2.5 [facility] ([place] Comment on above: Performed By: #### L IPID, GFR, PBNP, ADIFF, CBC, ANEU, BMP, MG #### [address] [address] Eosinophil, Absolute 0.0 10 3/mcL Normal 0.0-0.7 [facility] ([place]) Comment on above: Performed By: #### L IPID, GFR, PBNP, ADIFF, CBC, ANEU, BMP, MG #### [address] [address] Eosinophils/100 WBC (Bld) 0.0 % Normal 0.0-6.0 [facility] ([place]) Comment on above: Performed By: #### L IPID, GFR, PBNP, ADIFF, CBC, ANEU, BMP, MG #### [address] [address] Lymphocyte, Absolute 0.6 10 3/mcL Low 0.9-4.3 [facility] ([place]) Comment on above: Performed By: #### L IPID, GFR, PBNP, ADIFF, CBC, ANEU, BMP, MG #### [address] [address] Lymphocytes/100 WBC (Bld) 5.2 % Low 20.0-40.0 [facility] ([place]) Comment on above: Performed By: #### L IPID, GFR, PBNP, ADIFF, CBC, ANEU, BMP, MG #### [address] [address] Monocyte, Absolute 0.7 10 3/mcL Normal 0.1-1.4 [facility] ([place] Comment on above: Performed By: #### L IPID, GFR, PBNP, ADIFF, CBC, ANEU, BMP, MG #### [address] [address] Monocytes/100 WBC (Bld) 5.8 % Normal 2.0-13.0 [facility] [place] Comment on above: Performed By: #### L IPID, GFR, PBNP, ADIFF, CBC, ANEU, BMP, MG #### [address] [address] Neutrophils/100 WBC (Bld) 88.6 % High 50.0-75.0 [facility] ([place] Comment on above: Performed By: #### L IPID, GFR, PBNP, ADIFF, CBC, ANEU, BMP, MG #### [address] [address] .GFRon 01-08-2023 GFR >60 Normal [facility] ([place] Comment on above: Result Comment: GFR Population [...] PBNP, ADIFF, CBC, ANEU, BMP, MG #### [address] [address] GFR Non- >60 Normal [facility] ([place] Comment on above: Result Comment: GFR Population [...] PBNP, ADIFF, CBC, ANEU, BMP, MG #### [address] [address] .NEUABSon 01-08-2023 Neutrophil, Absolute 10.4 10 3/mcL High 2.3-8.1 A [facility] ([place]) Comment on above: Performed By: #### L IPID, GFR, PBNP, ADIFF, CBC, ANEU, BMP, MG #### [place] [address] A1Con 01-08-2023 HbA1c (Bld) [Mass fraction] 7.2 % High 4.0-6.0 [facility] [place] Comment on above: Performed By: #### L IPID, GFR, PBNP, ADIFF, CBC, ANEU, BMP, MG #### [address] 01-08-2023 BUN/Creatinine Ratio 51.3 ratio High 10.0-22.0 [facility] ([place] Comment on above: Performed By: #### L IPID, GFR, PBNP, ADIFF, CBC, ANEU, BMP, MG #### [place] [address] Calcium [Mass/Vol] 8.3 mg/dL Low 8.7-10.4 [facility] ([place] Comment on above: Performed By: #### L IPID, GFR, PBNP, ADIFF, CBC, ANEU, BMP, MG #### [place] [address] Chloride [Moles/Vol] 104 mmol/L Normal 98-110 [facility] ([place] Comment on above: Performed By: #### L IPID, GFR, PBNP, ADIFF, CBC, ANEU, BMP, MG #### [place] [id number] CO2 [Moles/Vol] 29 mmol/L Normal 22-32 [facility] ([place] Comment on above: Performed By: #### L IPID, GFR, PBNP, ADIFF, CBC, ANEU, BMP, MG #### [address] [address] Creatinine [Mass/Vol] 0.39 mg/dL Low 0.50-1.20 [facility] [place] Comment on above: Performed By: #### L IPID, GFR, PBNP, ADIFF, CBC, ANEU, BMP, MG #### [address] [address] Electrolyte Balance 8.0 mEq/L Normal 4.0-15.0 [facility] ([place]) Comment on above: Performed By: #### L IPID, GFR, PBNP, ADIFF, CBC, ANEU, BMP, MG #### [address] [address] Glucose [Mass/Vol] 188 mg/dL High 70-110 [facility] ([place]) Comment on above: Performed By: #### L IPID, GFR, PBNP, ADIFF, CBC, ANEU, BMP, MG #### [address] [address] Potassium [Moles/Vol] 4.2 mmol/L Normal 3.5-5.0 [facility] [place] Comment on above: Result Comment: Spec imen slightly hemolyzed. Performed By: #### L IPID, GFR, PBNP, ADIFF, CBC, ANEU, BMP, MG #### [address] [address] Sodium [Moles/Vol] 141 mmol/L Normal 136-145 [facility] ([place] Comment on above: Performed By: #### L IPID, GFR, PBNP, ADIFF, CBC, ANEU, BMP, MG #### [address] [address] Urea nitrogen [Mass/Vol] 20.0 mg/dL Normal 8.0-22.0 [facility] ([place] Comment on above: Performed By: #### L IPID, GFR, PBNP, ADIFF, CBC, ANEU, BMP, MG #### [place] [address] CBCon 01-08-2023 Erythrocyte distribution width (RBC) [Ratio] 13.9 % Normal 11.5-15.5 [facility] [place] Comment on above: Performed By: #### L IPID, GFR, PBNP, ADIFF, CBC, ANEU, BMP, MG #### [place] [id number] Hematocrit (Bld) [Volume fraction] 32.1 % Low 34.0-46.0 [facility] [place] Comment on above: Performed By: #### L IPID, GFR, PBNP, ADIFF, CBC, ANEU, BMP, MG #### [place] [address] Hgb 10.6 G/dL Low 12.0-16.0 [facility] [place] Comment on above: Performed By: #### L IPID, GFR, PBNP, ADIFF, CBC, ANEU, BMP, MG #### [place] [address] MCH (RBC) [Entitic mass] 28.5 pg Normal 27.0-33.0 [facility] [place] Comment on above: Performed By: #### L IPID, GFR, PBNP, ADIFF, CBC, ANEU, BMP, MG #### [place] [address] MCHC 32.9 G/dL Normal 32.0-36.0 [facility] [place] Comment on above: Performed By: #### L IPID, GFR, PBNP, ADIFF, CBC, ANEU, BMP, MG #### [place] [address] MCV (RBC) [Entitic vol] 86.4 fL Normal 80.0-99.0 [facility] [place] Comment on above: Performed By: #### L IPID, GFR, PBNP, ADIFF, CBC, ANEU, BMP, MG #### [place] [address] Platelet 279 10 3/mcL Normal 150-450 [facility] ([place] Comment on above: Performed By: #### L IPID, GFR, PBNP, ADIFF, CBC, ANEU, BMP, MG #### [place] [address] Platelet mean volume (Bld) [Entitic vol] 7.3 fL Normal 6.6-10.5 [facility] [place] Comment on above: Performed By: #### L IPID, GFR, PBNP, ADIFF, CBC, ANEU, BMP, MG #### [place] [address] RBC 3.72 10 6/mcL Low 4.10-5.30 [facility] [place] Comment on above: Performed By: #### L IPID, GFR, PBNP, ADIFF, CBC, ANEU, BMP, MG #### [place] [address] WBC 11.7 10 3/mcL High 4.5-10.8 [facility] ([place] Comment on above: Performed By: #### L IPID, GFR, PBNP, ADIFF, CBC, ANEU, BMP, MG #### [place] [address] CRPHS 01-08-2023 CRP, High Sensitive 120.66 mg/L High 0.20-3.00 [facility] ([place] Comment on above: Result Comment: Spec imen [...] PBNP, ADIFF, CBC, ANEU, BMP, MG #### [place] [address] ESRon 01-08-2023 Erythrocyte Sed Rate 109 mm/hr High 0-30 [facility] ([place] Comment on above: Performed By: #### L IPID, GFR, PBNP, ADIFF, CBC, ANEU, BMP, MG #### [place] [address] [place] [address] LABORATORYOrdered By: Christianne Rivera on 01-08-2023 Blood Glucose Testing Reason Routine (01/08/23 9:44 PM) [facility] Work Phone: Glucose [Mass/Vol] 303 mg/dL Invalid Interpretation Code 70 - 110 mg/dL [facility] Work Phone: Blood Glucose Testing Reason Routine (01/08/23 4:17 PM) [facility] Work Phone: LABORATORYOrdered By: SYSTEM SYSTEM on 01-08-2023 Basophils (Bld) [#/Vol] 0.0 103/mcL Invalid Interpretation Code 0.0 - 0.3 10^3/mcL Workflow SS Basophils/100 WBC (Bld) 0.4 % Invalid Interpretation Code 0.0 - 2.5 % Workflow SS Calcium [Mass/Vol] 8.3 mg/dL Invalid [...] Code 0.9 - 4.3 10^3/mcL Workflow SS Lymphocytes/100 WBC (Bld) 5.2 % Invalid Interpretation Code 20.0 - 40.0 % Workflow SS Magnesium [Mass/Vol] 1.8 mg/dL Invalid Interpretation Code 1.6 - 2.4 mg/dL ADM SS MCH (RBC) [Entitic mass] 28.5 pg Invalid Interpretation Code 27.0 - 33.0 pg AH Workflow SS MCHC 32.9 G/dL Invalid Interpretation Code 32.0 - 36.0 G/dL Workflow SS MCV (RBC) [Entitic vol] 86.4 [...] 3.5 - 5.0 mEq/L AH ADM SS Comment on above: Result Comment: [...] - 10.8 10^3/mcL Workflow SS LABORATORYOrdered By: Mayte Maciel on 01-08-2023 ESR 15 minute reading (Bld) [Velocity] 109 mm/hr Invalid Interpretation Code 0 - 30 mm/hr Manual Heme SS LDHon 01-08-2023 LDH 263 U/L High 120-246 [facility] ([place] Comment on above: Performed By: #### L IPID, GFR, PBNP, ADIFF, CBC, ANEU, BMP, MG #### [address] [address] MGon 01-08-2023 Magnesium [Mass/Vol] 1.8 mg/dL Normal 1.6-2.4 [facility] ([place] Comment on above: Performed By: #### L IPID, GFR, PBNP, ADIFF, CBC, ANEU, BMP, MG #### [address] [address] PHOSon 01-08-2023 Phosphate [Mass/Vol] 2.5 mg/dL Normal 2.4-5.1 [facility] ([place] Comment on above: Result Comment: No te - New Reference Range in effect 20 Performed By: #### L IPID, GFR, PBNP, ADIFF, CBC, ANEU, BMP, MG #### [address] [address] XR CHEST 2 VIEWSon XR CHEST 2 VIEWS ORIGINAL EXAMINATION: TWO [...] 01/08/2023 1:58:59 PM Ordering Provider: WINIFRED Mora [facility] ([place]) .Auto Diffon 01-07-2023 Basophil, Absolute 0.0 10 3/mcL Normal 0.0-0.3 [facility] ([place] Comment on above: Performed By: #### L IPID, GFR, PBNP, ADIFF, CBC, ANEU, BMP, MG #### [address] [address] Eosinophil, Absolute 0.0 10 3/mcL Normal 0.0-0.7 [facility] ([place]) Comment on above: Performed By: #### L IPID, GFR, PBNP, ADIFF, CBC, ANEU, BMP, MG #### [address] [address] Lymphocyte, Absolute 0.4 10 3/mcL Low 0.9-4.3 [facility] ([place]) Comment on above: Performed By: #### L IPID, GFR, PBNP, ADIFF, CBC, ANEU, BMP, MG #### [address] [address] Monocyte, Absolute 0.5 10 3/mcL Normal 0.1-1.4 [facility] ([place] Comment on above: Performed By: #### L IPID, GFR, PBNP, ADIFF, CBC, ANEU, BMP, MG #### [address] [address] .Auto DiffOrdered By: SYSTEM SYSTEM on 01-07-2023 Basophils/100 WBC (Bld) 0.1 % Normal 0.0-2.5 AH Workflow SS Comment on above: Performed By: #### L IPID, GFR, PBNP, ADIFF, CBC, ANEU, BMP, MG #### [address] [address] Eosinophils/100 WBC (Bld) 0.0 % Normal 0.0-6.0 AH Workflow SS Comment on above: Performed By: #### L IPID, GFR, PBNP, ADIFF, CBC, ANEU, BMP, MG #### [address] [address] Lymphocytes/100 WBC (Bld) 4.6 % Low 20.0-40.0 AH Workflow SS Comment on above: Performed By: #### L IPID, GFR, PBNP, ADIFF, CBC, ANEU, BMP, MG #### [address] [address] Monocytes/100 WBC (Bld) 6.2 % Normal 2.0-13.0 AH Workflow SS Comment on above: Performed By: #### L IPID, GFR, PBNP, ADIFF, CBC, ANEU, BMP, MG #### [address] [address] Neutrophils/100 WBC (Bld) 89.1 % High 50.0-75.0 AH Workflow SS Comment on above: Performed By: #### L IPID, GFR, PBNP, ADIFF, CBC, ANEU, BMP, MG #### [address] [address] .GFRon 01-07-2023 GFR Non- >60 Normal [facility] ([place] Comment on above: Result Comment: GFR Population [...] PBNP, ADIFF, CBC, ANEU, BMP, MG #### [address] [address] GFR >60 Normal [facility] ([place] Comment on above: Result Comment: GFR Population [...] PBNP, ADIFF, CBC, ANEU, BMP, MG #### [address] [address] .NEUABSon 01-07-2023 Neutrophil, Absolute 7.4 10 3/mcL Normal 2.3-8.1 [facility] ([place]) Comment on above: Performed By: #### L IPID, GFR, PBNP, ADIFF, CBC, ANEU, BMP, MG #### [address] [address] BFPRon 01-07-2023 Body Fluid Path Review Negative for mark gnant cells. Marked acute inflammation present. Normal [facility] ([place] Comment on above: Order Comment: Added by Discern Result Comment: Elec tronically signed by: GILBERTO BURNETTE 01.07.2023 12:29 EDT Performed By: #### L IPID, GFR, PBNP, ADIFF, CBC, ANEU, BMP, MG #### [address] [address] BMPon 01-07-2023 BUN/Creatinine Ratio 41.0 ratio High 10.0-22.0 [facility] ([place] Comment on above: Performed By: #### L IPID, GFR, PBNP, ADIFF, CBC, ANEU, BMP, MG #### [place] [id number] BMPOrdered By: SYSTEM SYSTEM on 01-07-2023 Calcium [Mass/Vol] 8.8 mg/dL Normal 8.7-10.4 AH ADM SS Comment on above: Performed By: #### L IPID, GFR, PBNP, ADIFF, CBC, ANEU, BMP, MG #### [place] [id number] Chloride [Moles/Vol] 108 mmol/L Normal 98-110 AH A DM SS Comment on above: Performed By: #### L IPID, GFR, PBNP, ADIFF, CBC, ANEU, BMP, MG #### [address] [address] CO2 [Moles/Vol] 29 mmol/L Normal 22-32 AH ADM SS Comment on above: Performed By: #### L IPID, GFR, PBNP, ADIFF, CBC, ANEU, BMP, MG #### [address] [address] Creatinine [Mass/Vol] 0.39 mg/dL Low 0.50-1.20 AH ADM SS Comment on above: Performed By: #### L IPID, GFR, PBNP, ADIFF, CBC, ANEU, BMP, MG #### [address] [address] Electrolyte Balance 3.0 mEq/L Low 4.0-15.0 AH AD M SS Comment on above: Performed By: #### L IPID, GFR, PBNP, ADIFF, CBC, ANEU, BMP, MG #### [place] [id number] Glucose [Mass/Vol] 200 mg/dL High 70-110 AH ADM SS Comment on above: Performed By: #### L IPID, GFR, PBNP, ADIFF, CBC, ANEU, BMP, MG #### [place] [id number] Potassium [Moles/Vol] 4.2 mmol/L Normal 3.5-5.0 AH ADM SS Comment on above: Performed By: #### L IPID, GFR, PBNP, ADIFF, CBC, ANEU, BMP, MG #### [place] [id number] Sodium [Moles/Vol] 140 mmol/L Normal 136-145 AH ADM SS Comment on above: Performed By: #### L IPID, GFR, PBNP, ADIFF, CBC, ANEU, BMP, MG #### [place] [address] Urea nitrogen [Mass/Vol] 16.0 mg/dL Normal 8.0-22.0 AH ADM SS Comment on above: Performed By: #### L IPID, GFR, PBNP, ADIFF, CBC, ANEU, BMP, MG #### [place] [address] CBCOrdered By: SYSTEM SYSTEM on 01-07-2023 Erythrocyte distribution width (RBC) [Ratio] 14.2 % Normal 11.5-15.5 AH Workflow SS Comment on above: Performed By: #### L IPID, GFR, PBNP, ADIFF, CBC, ANEU, BMP, MG #### [place] [address] Hematocrit (Bld) [Volume fraction] 32.2 % Low 34.0-46.0 AH Workflow SS Comment on above: Performed By: #### L IPID, GFR, PBNP, ADIFF, CBC, ANEU, BMP, MG #### [place] [address] MCH (RBC) [Entitic mass] 28.7 pg Normal 27.0-33.0 AH Workflow SS Comment on above: Performed By: #### L IPID, GFR, PBNP, ADIFF, CBC, ANEU, BMP, MG #### [place] [address] MCHC 33.1 G/dL Normal 32.0-36.0 AH Workflow SS Comment on above: Performed By: #### L IPID, GFR, PBNP, ADIFF, CBC, ANEU, BMP, MG #### [place] [address] MCV (RBC) [Entitic vol] 86.8 fL Normal 80.0-99.0 AH Workflow SS Comment on above: Performed By: #### L IPID, GFR, PBNP, ADIFF, CBC, ANEU, BMP, MG #### [place] [address] Platelet mean volume (Bld) [Entitic vol] 7.3 fL Normal 6.6-10.5 AH Workflow SS Comment on above: Performed By: #### L IPID, GFR, PBNP, ADIFF, CBC, ANEU, BMP, MG #### [place] [address] CBCon 01-07-2023 Hgb 10.7 G/dL Low 12.0-16.0 [facility] [place] Comment on above: Performed By: #### L IPID, GFR, PBNP, ADIFF, CBC, ANEU, BMP, MG #### [place] [address] Platelet 245 10 3/mcL Normal 150-450 [facility] [place] Comment on above: Performed By: #### L IPID, GFR, PBNP, ADIFF, CBC, ANEU, BMP, MG #### [place] [address] RBC 3.71 10 6/mcL Low 4.10-5.30 [facility] [place] Comment on above: Performed By: #### L IPID, GFR, PBNP, ADIFF, CBC, ANEU, BMP, MG #### [place] [address] WBC 8.3 10 3/mcL Normal 4.5-10.8 [facility] [place] Comment on above: Performed By: #### L IPID, GFR, PBNP, ADIFF, CBC, ANEU, BMP, MG #### [place] [address] CT THORAX W/O CONTRASTon CT THORAX W/O [...] 01/07/2023 12:15:42 AM Ordering Provider: WINIFRED [facility] ([place]) LABORATORYOrdered By: Actifi SYSTEM on 01-07-2023 Basophils (Bld) [#/Vol] 0.0 103/mcL Invalid Interpretation Code 0.0 - 0.3 10^3/mcL Workflow SS Eosinophils (Bld) [#/Vol] 0.0 103/mcL Invalid Interpretation Code 0.0 - 0.7 10^3/mcL Workflow SS GFR/1.73 sq M.predicted among blacks MDRD (S/P/Bld) [Vol rate/Area] ml/min/1.73sqm Invalid Interpretation Code AH ADM SS GFR/1.73 sq M.predicted among non-blacks MDRD (S/P/Bld) [Vol rate/Area] ml/min/1.73sqm Invalid Interpretation Code AH ADM SS Hemoglobin (Bld) [Mass/Vol] 10.7 G/dL Invalid Interpretation Code 12.0 - 16.0 G/dL Workflow SS Lymphocytes (Bld) [#/Vol] 0.4 103/mcL [...] ratio AH ADM SS WBC (Bld) [#/Vol] 8.3 103/mcL Invalid Interpretation Code 4.5 - 10.8 10^3/mcL Workflow SS LABORATORYOrdered By: Roxanne Alfonso on 01-07-2023 Natriuretic peptide.B prohormone N-Terminal [Mass/Vol] 583 pg/mL Invalid Interpretation Code 0 - 900 pg/mL Auto Chem SS LIPIDOrdered By: Liliya Patel on 01-07-2023 Cholesterol [Mass/Vol] 119 mg/dL Normal 50-199 AH ADM SS Comment on above: Result Comment: Chol esterol Reference Interval: Less than 200 Desirable 200-239 Borderline high risk 240 and above High risk Performed By: #### L IPID, GFR, PBNP, ADIFF, CBC, ANEU, BMP, MG #### [address] [address] Cholesterol in HDL [Mass/Vol] 42 mg/dL Normal 40-59 AH ADM SS Comment on above: Performed By: #### L IPID, GFR, PBNP, ADIFF, CBC, ANEU, BMP, MG #### [address] [address] Cholesterol in LDL [Mass/Vol] 64 mg/dL Normal 0-129 AH ADM SS Comment on above: Performed By: #### L IPID, GFR, PBNP, ADIFF, CBC, ANEU, BMP, MG #### [address] [address] Triglyceride [Mass/Vol] 65 mg/dL Normal 3-149 AH ADM SS Comment on above: Performed By: #### L IPID, GFR, PBNP, ADIFF, CBC, ANEU, BMP, MG #### [address] [address] MGOrdered By: SYSTEM SYSTEM on 01-07-2023 Magnesium [Mass/Vol] 2.0 mg/dL Normal 1.6-2.4 AH A DM SS Comment on above: Performed By: #### L IPID, GFR, PBNP, ADIFF, CBC, ANEU, BMP, MG #### [address] [address] PBNPon 01-07-2023 Natriuretic peptide B (Bld) [Mass/Vol] 583 pg/mL Normal 0-900 [facility] [place] Comment on above: Result Comment: NT-p roBNP results of less than 300 pg/mL effectively rules out acute congestive heart failure with 99% negative predictive value. Performed By: #### L IPID, GFR, PBNP, ADIFF, CBC, ANEU, BMP, MG #### [address] [address] US CHESTon 01-07-2023 US CHEST ORIGINAL HISTORY: Effusion COMPARISON: Previous day FINDINGS: There is no drainable fluid collection. Interpreted by: Blanca Gutiérrez MD Preliminary Report By: Blanca Gutiérrez MD Electronically signed By Blanca Gutiérrez MD Dictated Date: 01/07/2023 10:00:13 AM Prelim Date: 01/07/2023 10:01:06 AM Sign Date: 01/07/2023 10:01:06 AM Ordering Provider: BONITA Mora [facility] ([place]) .Auto Diffon 01-06-2023 Basophil, Absolute 0.1 10 3/mcL Normal 0.0-0.3 [facility] ([place]) Comment on above: Performed By: #### L IPID, GFR, PBNP, ADIFF, CBC, ANEU, BMP, MG #### [address] [address] Basophils/100 WBC (Bld) 0.5 % Normal 0.0-2.5 [facility] [place] Comment on above: Performed By: #### L IPID, GFR, PBNP, ADIFF, CBC, ANEU, BMP, MG #### [address] [address] Eosinophil, Absolute 0.0 10 3/mcL Normal 0.0-0.7 [facility] ([place]) Comment on above: Performed By: #### L IPID, GFR, PBNP, ADIFF, CBC, ANEU, BMP, MG #### [address] [address] Eosinophils/100 WBC (Bld) 0.1 % Normal 0.0-6.0 [facility] ([place] Comment on above: Performed By: #### L IPID, GFR, PBNP, ADIFF, CBC, ANEU, BMP, MG #### [address] [address] Lymphocyte, Absolute 0.9 10 3/mcL Normal 0.9-4.3 [facility] ([place]) Comment on above: Performed By: #### L IPID, GFR, PBNP, ADIFF, CBC, ANEU, BMP, MG #### [address] [address] Lymphocytes/100 WBC (Bld) 6.3 % Low 20.0-40.0 [facility] ([place] Comment on above: Performed By: #### L IPID, GFR, PBNP, ADIFF, CBC, ANEU, BMP, MG #### [address] [address] Monocyte, Absolute 1.5 10 3/mcL High 0.1-1.4 [facility] ([place] Comment on above: Performed By: #### L IPID, GFR, PBNP, ADIFF, CBC, ANEU, BMP, MG #### [address] [address] Monocytes/100 WBC (Bld) 10.4 % Normal 2.0-13.0 [facility] [place] Comment on above: Performed By: #### L IPID, GFR, PBNP, ADIFF, CBC, ANEU, BMP, MG #### [address] [address] Neutrophils/100 WBC (Bld) 82.7 % High 50.0-75.0 [facility] ([place] Comment on above: Performed By: #### L IPID, GFR, PBNP, ADIFF, CBC, ANEU, BMP, MG #### [address] [address] .GFRon 01-06-2023 GFR >60 Normal [facility] ([place] Comment on above: Result Comment: GFR Population [...] PBNP, ADIFF, CBC, ANEU, BMP, MG #### [address] [address] GFR Non- >60 Normal [facility] ([place] Comment on above: Result Comment: GFR Population [...] PBNP, ADIFF, CBC, ANEU, BMP, MG #### [address] [address] .NEUABSon 01-06-2023 Neutrophil, Absolute 11.6 10 3/mcL High 2.3-8.1 A [facility] ([place]) Comment on above: Performed By: #### L IPID, GFR, PBNP, ADIFF, CBC, ANEU, BMP, MG #### [address] [address] AMYBFon 01-06-2023 Amylase [Catalytic activity/Vol] 22 U/L Normal [facility] ([place] Comment on above: Order Comment: Thora centesis left lung Performed By: #### L IPID, GFR, PBNP, ADIFF, CBC, ANEU, BMP, MG #### [address] [address] Amylase BF Type Thoracentesis Normal [facility] ([place]) Comment on above: Order Comment: Thora centesis [...] PBNP, ADIFF, CBC, ANEU, BMP, MG #### [address] [address] BFCTon 01-06-2023 Cells Counted BF 100 Normal [facility] ([place] Comment on above: Order Comment: Left lung Performed By: #### L IPID, GFR, PBNP, ADIFF, CBC, ANEU, BMP, MG #### [address] [address] Lymphocytes/100 WBC (Bld) 2 % Normal [facility] ([place] Comment on above: Order Comment: Left lung Performed By: #### L IPID, GFR, PBNP, ADIFF, CBC, ANEU, BMP, MG #### [address] [address] Mononuclear cell % BF 9 % Normal [facility] [place] Comment on above: Order Comment: Left lung Performed By: #### L IPID, GFR, PBNP, ADIFF, CBC, ANEU, BMP, MG #### [address] [address] Neutrophils/100 WBC (Bld) 89 % Normal [facility] ([place] Comment on above: Order Comment: Left lung Performed By: #### L IPID, GFR, PBNP, ADIFF, CBC, ANEU, BMP, MG #### [address] [address] Body Fluid Source Thoracentesis Normal [facility] ([place] Comment on above: Order Comment: Left lung [...] PBNP, ADIFF, CBC, ANEU, BMP, MG #### [address] [address] Total Nucleated Cells 2819 /mm3 Normal [facility] [place] Comment on above: Order Comment: Left lung Performed By: #### L IPID, GFR, PBNP, ADIFF, CBC, ANEU, BMP, MG #### [address] [address] BMPon 01-06-2023 BUN/Creatinine Ratio 50.0 ratio High 10.0-22.0 [facility] ([place] Comment on above: Performed By: #### L IPID, GFR, PBNP, ADIFF, CBC, ANEU, BMP, MG #### [place] [address] Calcium [Mass/Vol] 8.3 mg/dL Low 8.7-10.4 [facility] ([place]) Comment on above: Performed By: #### L IPID, GFR, PBNP, ADIFF, CBC, ANEU, BMP, MG #### [address] [address] Chloride [Moles/Vol] 108 mmol/L Normal 98-110 [facility] ([place] Comment on above: Performed By: #### L IPID, GFR, PBNP, ADIFF, CBC, ANEU, BMP, MG #### [address] [address] CO2 [Moles/Vol] 25 mmol/L Normal 22-32 [facility] [place] Comment on above: Performed By: #### L IPID, GFR, PBNP, ADIFF, CBC, ANEU, BMP, MG #### [address] [address] Creatinine [Mass/Vol] 0.44 mg/dL Low 0.50-1.20 [facility] [place] Comment on above: Performed By: #### L IPID, GFR, PBNP, ADIFF, CBC, ANEU, BMP, MG #### [address] [address] Electrolyte Balance 7.0 mEq/L Normal 4.0-15.0 [facility] ([place]) Comment on above: Performed By: #### L IPID, GFR, PBNP, ADIFF, CBC, ANEU, BMP, MG #### [address] [address] Glucose [Mass/Vol] 169 mg/dL High 70-110 [facility] ([place] Comment on above: Performed By: #### L IPID, GFR, PBNP, ADIFF, CBC, ANEU, BMP, MG #### [address] [address] Potassium [Moles/Vol] 3.6 mmol/L Normal 3.5-5.0 [facility] [place] Comment on above: Performed By: #### L IPID, GFR, PBNP, ADIFF, CBC, ANEU, BMP, MG #### [place] [id number] Sodium [Moles/Vol] 140 mmol/L Normal 136-145 [facility] ([place] Comment on above: Performed By: #### L IPID, GFR, PBNP, ADIFF, CBC, ANEU, BMP, MG #### [place] [id number] Urea nitrogen [Mass/Vol] 22.0 mg/dL Normal 8.0-22.0 [facility] [place] Comment on above: Performed By: #### L IPID, GFR, PBNP, ADIFF, CBC, ANEU, BMP, MG #### [address] [address] CBCon 01-06-2023 Erythrocyte distribution width (RBC) [Ratio] 14.6 % Normal 11.5-15.5 [facility] [place] Comment on above: Performed By: #### L IPID, GFR, PBNP, ADIFF, CBC, ANEU, BMP, MG #### [address] [address] Hematocrit (Bld) [Volume fraction] 32.4 % Low 34.0-46.0 [facility] [place] Comment on above: Performed By: #### L IPID, GFR, PBNP, ADIFF, CBC, ANEU, BMP, MG #### [place] [address] Hgb 10.3 G/dL Low 12.0-16.0 [facility] [place] Comment on above: Performed By: #### L IPID, GFR, PBNP, ADIFF, CBC, ANEU, BMP, MG #### [place] [address] MCH (RBC) [Entitic mass] 28.3 pg Normal 27.0-33.0 [facility] [place] Comment on above: Performed By: #### L IPID, GFR, PBNP, ADIFF, CBC, ANEU, BMP, MG #### [place] [address] MCHC 31.8 G/dL Low 32.0-36.0 [facility] [place] Comment on above: Performed By: #### L IPID, GFR, PBNP, ADIFF, CBC, ANEU, BMP, MG #### [place] [address] MCV (RBC) [Entitic vol] 88.9 fL Normal 80.0-99.0 [facility] [place] Comment on above: Performed By: #### L IPID, GFR, PBNP, ADIFF, CBC, ANEU, BMP, MG #### [place] [address] Platelet 272 10 3/mcL Normal 150-450 [facility] [place] Comment on above: Performed By: #### L IPID, GFR, PBNP, ADIFF, CBC, ANEU, BMP, MG #### [place] [address] Platelet mean volume (Bld) [Entitic vol] 7.3 fL Normal 6.6-10.5 [facility] [place] Comment on above: Performed By: #### L IPID, GFR, PBNP, ADIFF, CBC, ANEU, BMP, MG #### [place] [address] RBC 3.65 10 6/mcL Low 4.10-5.30 [facility] [place] Comment on above: Performed By: #### L IPID, GFR, PBNP, ADIFF, CBC, ANEU, BMP, MG #### [place] [address] WBC 14.0 10 3/mcL High 4.5-10.8 [facility] [place] Comment on above: Performed By: #### L IPID, GFR, PBNP, ADIFF, CBC, ANEU, BMP, MG #### [place] [address] GLUBFon 01-06-2023 Glucose BF 168.0 mg/dL Normal [facility] ([place] Comment on above: Order Comment: Left lung Performed By: #### L IPID, GFR, PBNP, ADIFF, CBC, ANEU, BMP, MG #### [place] [address] Glucose Body Fluid Spec Type Thoracentesis Normal [facility] ([place] Comment on above: Order Comment: Left lung [...] PBNP, ADIFF, CBC, ANEU, BMP, MG #### [place] [address] LABORATORYOrdered By: Guadalupe Barboza on 01-06-2023 Appearance (U) Clear (01/06/23 4:40 PM) Invalid Interpretation Code Clear AH Auto Urine SS Bilirubin Ql (U) Negative [...] Invalid Interpretation Code 0.00 - 34.00 ng/L AH ADM SS Troponin I.cardiac DL <= 0.01 ng/mL [Mass/Vol] ng/L Invalid Interpretation Code 0.00 - 34.00 ng/L AH ADM SS TSH Qn 0.135 mIU/mL Invalid [...] 4 (01/06/23 11:17 AM) Invalid Interpretation Code AH [...] Marked acute inflammation present. Invalid Interpretation Code AH Path Review Subsection Work Phone: LABORATORYOrdered By: [...] 0 - 900 pg/mL Auto Chem SS LDBFon 01-06-2023 LDH BF 151.0 U/L Normal [facility] [place] Comment on above: Order Comment: Thora centesis left lung Performed By: #### L IPID, GFR, PBNP, ADIFF, CBC, ANEU, BMP, MG #### [address] [address] LDH Body Fluid Spec Type Thoracentesis Normal [facility] ([place] Comment on above: Order Comment: Thora centesis [...] PBNP, ADIFF, CBC, ANEU, BMP, MG #### [address] [address] MGon 01-06-2023 Magnesium [Mass/Vol] 1.6 mg/dL Normal 1.6-2.4 [facility] ([place]) Comment on above: Performed By: #### L IPID, GFR, PBNP, ADIFF, CBC, ANEU, BMP, MG #### [facility] [address] [place] [address] No Panel Informationon 01-06 Culture Body Fluid Culture has been rec eived in lab and is no growth to date. Routine cultures are held for [address] [facility] Work Phone: GS Sedimented 3+ Polymorphonuclear cells 2+ Mononuclear cells No organisms seen. [facility] Work Phone: PBNPon 01-06-2023 Natriuretic peptide B (Bld) [Mass/Vol] 272 pg/mL Normal 0-900 [facility] ([place] Comment on above: Result Comment: NT-p roBNP results of less than 300 pg/mL effectively rules out acute congestive heart failure with 99% negative predictive value. Performed By: #### L IPID, GFR, PBNP, ADIFF, CBC, ANEU, BMP, MG #### [address] [address] PHBFon 01-06-2023 pH BF Spec Type Thoracentesis Normal [facility] ([place]) Comment on above: Order Comment: Thora centesis [...] PBNP, ADIFF, CBC, ANEU, BMP, MG #### [address] [address] pH BF 7.4 Normal [facility]) Comment on above: Order Comment: Thora centesis left lung Performed By: #### L IPID, GFR, PBNP, ADIFF, CBC, ANEU, BMP, MG #### [facility] [address] [place], [place] [address] PROBFon 01-06-2023 Protein BF 3.1 G/dL Normal [facility] [place] Comment on above: Order Comment: Thora centesis fluid Performed By: #### L IPID, GFR, PBNP, ADIFF, CBC, ANEU, BMP, MG #### [address] [address] Protein BF Type Thoracentesis Normal [facility] ([place] Comment on above: Order Comment: Thora centesis [...] PBNP, ADIFF, CBC, ANEU, BMP, MG #### [place] [id number] TROPHSon 01-06-2023 Troponin I High Sensitivity 3.84 ng/L Normal 0.00-34.00 [facility] ([place] Comment on above: Result Comment: If t he High Sensitive Troponin result is below the 99th percentile value (<45 ng/L) at the first blood draw, at least two additional blood samples should be drawn before results are interpreted as negative for AMI. Performed By: #### T ROP #### [address] [address] Troponin I High Sensitivity <2.50 Normal 0.00-34.00 [facility] ([place] Comment on above: Result Comment: If t he High Sensitive Troponin result is below the 99th percentile value (<45 ng/L) at the first blood draw, at least two additional blood samples should be drawn before results are interpreted as negative for AMI. Performed By: #### L IPID, GFR, PBNP, ADIFF, CBC, ANEU, BMP, MG #### [address] [address] TSHon 01-06-2023 TSH 0.135 mIU/mL Low 0.550-4.78 0 [facility] ([place] Comment on above: Result Comment: No te - New Reference Range in effect 20 Performed By: #### L IPID, GFR, PBNP, ADIFF, CBC, ANEU, BMP, MG #### [address] [address] UAon 01-06-2023 Color (U) DARK YELLOW Normal [facility] ([place] Comment on above: Performed By: #### L IPID, GFR, PBNP, ADIFF, CBC, ANEU, BMP, MG #### [place] [address] Glucose (U) [Mass/Vol] Negative Normal Negative [facility] ([place]) Comment on above: Performed By: #### L IPID, GFR, PBNP, ADIFF, CBC, ANEU, BMP, MG #### [address] [address] Ketones Ql (U) Negative Normal Neg-Trace [facility] ([place] Comment on above: Performed By: #### L IPID, GFR, PBNP, ADIFF, CBC, ANEU, BMP, MG #### [address] [address] UA Appear Clear Normal Clear [facility] ([place] Comment on above: Performed By: #### L IPID, GFR, PBNP, ADIFF, CBC, ANEU, BMP, MG #### [address] [address] UA Blood Negative Normal Neg-Trace [facility] ([place] Comment on above: Performed By: #### L IPID, GFR, PBNP, ADIFF, CBC, ANEU, BMP, MG #### [address] [address] UA Leuk Est Negative Normal Negative [facility] ([place] Comment on above: Performed By: #### L IPID, GFR, PBNP, ADIFF, CBC, ANEU, BMP, MG #### [address] [address] UA Nitrite Negative Normal Negative [facility] ([place] Comment on above: Performed By: #### L IPID, GFR, PBNP, ADIFF, CBC, ANEU, BMP, MG #### [address] [address] UA pH 5.5 Normal 5.0 - 8.0 [facility] ([place] Comment on above: Performed By: #### L IPID, GFR, PBNP, ADIFF, CBC, ANEU, BMP, MG #### [address] [address] UA Protein 30 mg/dL Normal Negative [facility] ([place] Comment on above: Performed By: #### L IPID, GFR, PBNP, ADIFF, CBC, ANEU, BMP, MG #### [address] [address] UA Spec Grav >=1.030 Abnormal 1.006-1.02 9 [facility] ([place] Comment on above: Performed By: #### L IPID, GFR, PBNP, ADIFF, CBC, ANEU, BMP, MG #### [address] [address] UA Specimen Type Clean Catch Normal [facility] ([place] Comment on above: Performed By: #### L IPID, GFR, PBNP, ADIFF, CBC, ANEU, BMP, MG #### [place] [id number] UA Urobilinogen 1.0 E.U./dL Normal 0.2-1.0 [facility] [place] Comment on above: Performed By: #### L IPID, GFR, PBNP, ADIFF, CBC, ANEU, BMP, MG #### [address] [address] Urobilinogen (U) [Mass/Vol] Negative Normal Neg-Trace [facility] ([place] Comment on above: Performed By: #### L IPID, GFR, PBNP, ADIFF, CBC, ANEU, BMP, MG #### [address] [place], [place] [address] XR CHEST 1 VIEWon 01-06-2023 XR CHEST [...] 01/06/2023 12:20:37 PM Ordering Provider: ROSA LIZ [facility] ([place]) XR CHEST 1 VIEW ORIGINAL EXAMINATION: ONE [...] Bharathi Leiva MD Preliminary Report By: Bharathi eLiva MD Electronically signed By Bharathi Leiav MD Dictated Date: 01/06/2023 12:13:44 PM Prelim Date: 01/06/2023 12:15:56 PM Sign Date: 01/06/2023 12:15:56 PM Ordering Provider: SHANDA ELLIOTT [facility] ([place]) Absolute lymphocyte countOrd ered By: Wayne Germain on 01-05-2023 Lymphocytes Auto (Unsp spec) [#/Vol] 1.04 10*3/uL 0.83-4.51 [facility] Basophil percentageOrdered B y: Wayne Germain on 01-05-2023 Basophils/100 WBC (Bld) 0.4 % 0-1 [facility] Chloride [Moles/Vol] 107 mmol/L 98-107 [facility] Eosinophils/100 WBC (Bld) 2.3 % 0-5 [facility] Glucose [Mass/Vol] 172 mg/dL 74-106 [facility] Comment on above: Fasting Glucose resu lt greater than or equal to 126 mg/dL suggests DIABETES MELLITUS per A.D.A. criteria. Neutrophils (Bld) [#/Vol] 7.9 10*3/uL 2.0-7.7 [facility] Neutrophils/100 WBC (Bld) 76.7 % 47-70 [facility] Potassium [Moles/Vol] 3.5 mmol/L 3.5-5.1 [facility] Sodium [Moles/Vol] 139 mmol/L 136-145 [facility] WBC (Bld) [#/Vol] 10.3 10*3/uL 4.4-11.0 [facility] Blood erythrocytes count (nu mber/volume)Ordered By: Wayne Germain on 01-05-2023 RBC (Bld) [#/Vol] 3.87 10*6/uL 4.2-5.4 [facility] Blood hemoglobin measurement (mass/volume)Ordered By: Wayne Germain on 01-05-2023 Hemoglobin (Bld) [Mass/Vol] 11.0 g/dL 12.0-15.0 [facility] Blood lymphocytes/100 leukoc ytesOrdered By: Wayne Germain on 01-05-2023 Lymphocytes/100 WBC (Bld) 10.1 % 19-41 [facility] Blood monocytes/100 leukocyt esOrdered By: Wayne Germain on 01-05-2023 Monocytes/100 WBC (Bld) 10.0 % 0-10 [facility] Blood platelet mean volumeOr dered By: Wayne Germain on 01-05-2023 Platelet mean volume (Bld) [Entitic vol] 9.6 fL 6.2-12.0 [facility] Determination of erythrocyte mean corpuscular volume (MCV)Ordered By: Wayne Germain on 01-05-2023 MCV (RBC) [Entitic vol] 89.9 fL 81-99 [facility] Hematocrit Auto (Bld) [Volum e fraction]Ordered By: Wayne Germain on 01-05-2023 Hematocrit (Bld) [Volume fraction] 34.8 % 37-47 [facility] Laboratory - Chemistry and C hemistry - challengeOrdered By: Wayne Germain on 01-05-2023 CO2 [Moles/Vol] 27.0 mmol/L 21.0-32.0 [facility] Natriuretic peptide B (Bld) [Mass/Vol] 45.4 pg/mL 0-100 [facility] Urea nitrogen/Creatinine [Mass ratio] 29.9 mg/mg 10-20 [facility] - Hematology and Cell countsOrdered By: Wayne Germain on 01-05-2023 Erythrocyte distribution width (RBC) [Entitic vol] 45.4 fL 35.1-43.9 [facility] Erythrocyte distribution width (RBC) [Ratio] 13.9 % 11.6-14.6 [facility] Immature granulocytes/100 WBC (Bld) 0.500 % 0.0-0.9 [facility] Comment on above: IG% - Immature Granu locytes (promyelocytes, myelocytes and metamyelocytes) > 1% indicates that a LEFT SHIFT is Present. MCH (RBC) [Entitic mass] 28.4 pg 27.0-32.0 [facility] Nucleated RBC/100 WBC (Bld) [Ratio] 0 % 0-5 [facility] MCHC Auto (RBC) [Mass/Vol]Or dered By: Wayne Germain on 01-05-2023 MCHC (RBC) [Mass/Vol] 31.6 g/dL 32-36 [facility] No Panel InformationOrdered By: Wayne Germain on 01-05-2023 D-Dimer Quantitative (PE/DVT) 5.70 FEU/ug/m 0.27-0.49 [facility] Comment on above: D-Dimer ELEVATED (>0 .49): Additional studies and clinicalassessments are indicated to conclude diagnosis of:Deep Vein Thrombosis (DVT) or Pulmonary Embolism (PE)CRITICAL VALUE VERIFIED. CALLED TO [id number] Lynne Barrientos.RESULTS READ BACK BY SAME . Estimated Creatinine Clearance Calc 83.51 ml/min [facility] Estimated GFR (MDRD) Amer 131 mL/min >60 [facility] Comment on above: GFR Calc Estimated GFR (MDRD) Non-Af Amer 108 mL/min >60 [facility] Comment on above: Non- GFR Calc Troponin I High Sensitivity 6 pg/mL 3.0-54.0 [facility] Comment on above: Please Note: [place] Units and Gender Specific Reference Ranges. For more information see Policy Stat Procedure Bascom High Sensitivity Troponin (TNIH) and attachments. Platelets bldOrdered By: Jasson Germain on 01-05-2023 Platelets (Bld) [#/Vol] 278 10*3/uL 150-450 [facility] Serum or plasma calcium jasiel urement (mass/volume)Ordered By: Wayne Germain on 01-05-2023 Calcium [Mass/Vol] 9.1 mg/dL 8.5-10.1 [facility] Serum or plasma creatinine m easurement (mass/volume)Ordered By: Wayne Germain on 01-05-2023 Creatinine [Mass/Vol] 0.60 mg/dL 0.55-1.02 [facility] Comment on above: The validity of the calculated GFR & GFRAA in patients over 70 years has not been determined. Clinical correlation is essential. Serum or plasma urea nitroge n measurement (mass/volume)Ordered By: Wayne Germain on 01-05-2023 Urea nitrogen [Mass/Vol] 18 mg/dL 7-18 [facility] Thin prep Papanicolaou smear with manual screeningOrdered By: Wayne Germain on 01-05-2023 Thin prep Papanicolaou smear with manual screening 5 5-15 [facility] Absolute lymphocyte countOrd ered By: Becca Nelson on 01-03-2023 Lymphocytes Auto (Unsp spec) [#/Vol] 1.81 10*3/uL 0.83-4.51 [facility] Basophil percentageOrdered B y: Becca Nelson on 01-03-2023 Basophils/100 WBC (Bld) 0.4 % 0-1 [facility] Chloride [Moles/Vol] 110 mmol/L 98-107 [facility] Eosinophils/100 WBC (Bld) 2.9 % 0-5 [facility] Glucose [Mass/Vol] 130 mg/dL 74-106 [facility] Comment on above: Fasting Glucose resu lt greater than or equal to 126 mg/dL suggests DIABETES MELLITUS per A.D.A. criteria. Neutrophils (Bld) [#/Vol] 6.1 10*3/uL 2.0-7.7 [facility] Neutrophils/100 WBC (Bld) 66.6 % 47-70 [facility] Potassium [Moles/Vol] 3.8 mmol/L 3.5-5.1 [facility] Sodium [Moles/Vol] 141 mmol/L 136-145 [facility] WBC (Bld) [#/Vol] 9.2 10*3/uL 4.4-11.0 [facility] Blood erythrocytes count (nu mber/volume)Ordered By: Becca Nelson on 01-03-2023 RBC (Bld) [#/Vol] 3.89 10*6/uL 4.2-5.4 [facility] Blood hemoglobin measurement (mass/volume)Ordered By: Becca Nelson on 01-03-2023 Hemoglobin (Bld) [Mass/Vol] 11.3 g/dL 12.0-15.0 [facility] Blood lymphocytes/100 leukoc ytesOrdered By: Becca Nelson on 01-03-2023 Lymphocytes/100 WBC (Bld) 19.6 % 19-41 [facility] Blood monocytes/100 leukocyt esOrdered By: Becca Nelson on 01-03-2023 Monocytes/100 WBC (Bld) 10.2 % 0-10 [facility] Blood platelet mean volumeOr dered By: Becca Nelson on 01-03-2023 Platelet mean volume (Bld) [Entitic vol] 9.4 fL 6.2-12.0 [facility] Determination of erythrocyte mean corpuscular volume (MCV)Ordered By: Becca Nelson on 01-03-2023 MCV (RBC) [Entitic vol] 91.5 fL 81-99 [facility] Hematocrit Auto (Bld) [Volum e fraction]Ordered By: Becca Nelson on 01-03-2023 Hematocrit (Bld) [Volume fraction] 35.6 % 37-47 [facility] Laboratory - Chemistry and C hemistry - challengeOrdered By: Becca Nelson on 01-03-2023 CO2 [Moles/Vol] 28.0 mmol/L 21.0-32.0 [facility] Urea nitrogen/Creatinine [Mass ratio] 34.5 mg/mg 10-20 [facility] Laboratory - Hematology and Cell countsOrdered By: Becca Nelson on 01-03-2023 Erythrocyte distribution width (RBC) [Entitic vol] 46.7 fL 35.1-43.9 [facility] Erythrocyte distribution width (RBC) [Ratio] 13.9 % 11.6-14.6 [facility] Immature granulocytes/100 WBC (Bld) 0.300 % 0.0-0.9 [facility] Comment on above: IG% - Immature Granu locytes (promyelocytes, myelocytes and metamyelocytes) > 1% indicates that a LEFT SHIFT is Present. MCH (RBC) [Entitic mass] 29.0 pg 27.0-32.0 [facility] Nucleated RBC/100 WBC (Bld) [Ratio] 0 % 0-5 [facility] MCHC Auto (RBC) [Mass/Vol]Or dered By: Becca Nelson on 01-03-2023 MCHC (RBC) [Mass/Vol] 31.7 g/dL 32-36 [facility] No Panel InformationOrdered By: Becca Nelson on 01-03-2023 Estimated Creatinine Clearance Calc 91.10 ml/min [facility] Estimated GFR (MDRD) Amer 145 mL/min >60 [facility] Comment on above: GFR Calc Estimated GFR (MDRD) Non-Af Amer 120 mL/min >60 [facility] Comment on above: Non- GFR Calc Troponin I High Sensitivity 6 pg/mL 3.0-54.0 [facility] Comment on above: Please Note: [place] Units and Gender Specific Reference Ranges. For more information see Policy Stat Procedure Bascom High Sensitivity Troponin (TNIH) and attachments. Platelets bldOrdered By: Jessi Nelson on 01-03-2023 Platelets (Bld) [#/Vol] 242 10*3/uL 150-450 [facility] Serum or plasma calcium jasiel urement (mass/volume)Ordered By: Becca Nelson on 01-03-2023 Calcium [Mass/Vol] 9.2 mg/dL 8.5-10.1 [facility] Serum or plasma creatinine m easurement (mass/volume)Ordered By: Becca Nelson on 01-03-2023 Creatinine [Mass/Vol] 0.55 mg/dL 0.55-1.02 [facility] Comment on above: The validity of the calculated GFR & GFRAA in patients over 70 years has not been determined. Clinical correlation is essential. Serum or plasma urea nitroge n measurement (mass/volume)Ordered By: Becca Nelson on 01-03-2023 Urea nitrogen [Mass/Vol] 19 mg/dL 7-18 [facility] Thin prep Papanicolaou smear with manual screeningOrdered By: Becca Nelson on 01-03-2023 Thin prep Papanicolaou smear with manual screening 3 5-15 [facility] Absolute lymphocyte countOrd ered By: Diana Ramos on 01-01-2023 Lymphocytes Auto (Unsp spec) [#/Vol] 1.75 10*3/uL 0.83-4.51 [facility] Basophil percentageOrdered B y: Diana Ramos on 01-01-2023 Basophils/100 WBC (Bld) 0.4 % 0-1 [facility] Bilirubin [Mass/Vol] 0.30 mg/dL 0.20-1.00 [facility] Comment on above: For patients on eltr ombopag therapy, use of Dimension Bascom TBIL is not recommended. Chloride [Moles/Vol] 109 mmol/L 98-107 [facility] Eosinophils/100 WBC (Bld) 2.3 % 0-5 [facility] Glucose [Mass/Vol] 131 mg/dL 74-106 [facility] Comment on above: Fasting Glucose resu lt greater than or equal to 126 mg/dL suggests DIABETES MELLITUS per A.D.A. criteria. Neutrophils (Bld) [#/Vol] 6.2 10*3/uL 2.0-7.7 [facility] Neutrophils/100 WBC (Bld) 69.4 % 47-70 [facility] Potassium [Moles/Vol] 3.8 mmol/L 3.5-5.1 [facility] Protein [Mass/Vol] 7.4 g/dL 6.4-8.2 [facility] Sodium [Moles/Vol] 141 mmol/L 136-145 [facility] WBC (Bld) [#/Vol] 9.0 10*3/uL 4.4-11.0 [facility] Blood erythrocytes count (nu mber/volume)Ordered By: Diana Ramos on 01-01-2023 RBC (Bld) [#/Vol] 3.95 10*6/uL 4.2-5.4 [facility] Blood hemoglobin measurement (mass/volume)Ordered By: Diana Ramos on 01-01-2023 Hemoglobin (Bld) [Mass/Vol] 11.3 g/dL 12.0-15.0 [facility] Blood lymphocytes/100 leukoc ytesOrdered By: Diana Ramos on 01-01-2023 Lymphocytes/100 WBC (Bld) 19.5 % 19-41 [facility] Blood monocytes/100 leukocyt esOrdered By: Diana Ramos on 01-01-2023 Monocytes/100 WBC (Bld) 8.0 % 0-10 [facility] Blood platelet mean volumeOr dered By: Diana Ramos on 01-01-2023 Platelet mean volume (Bld) [Entitic vol] 9.8 fL 6.2-12.0 [facility] Determination of erythrocyte mean corpuscular volume (MCV)Ordered By: Diana Ramos on 01-01-2023 MCV (RBC) [Entitic vol] 92.2 fL 81-99 [facility] Hematocrit Auto (Bld) [Volum e fraction]Ordered By: Diana Ramos on 01-01-2023 Hematocrit (Bld) [Volume fraction] 36.4 % 37-47 [facility] Laboratory - Chemistry and C hemistry - challengeOrdered By: Diana Ramos on 01-01-2023 ALP [Catalytic activity/Vol] 85 U/L 45-117 [facility] ALT [Catalytic activity/Vol] 24 U/L 13-56 [facility] CO2 [Moles/Vol] 26.0 mmol/L 21.0-32.0 [facility] Globulin (S) [Mass/Vol] 4.7 g/dL 2.2-4.2 [facility] Urea nitrogen/Creatinine [Mass ratio] 37.5 mg/mg 10-20 [facility] Laboratory - Hematology and Cell countsOrdered By: Diana Ramos on 01-01-2023 Erythrocyte distribution width (RBC) [Entitic vol] 47.6 fL 35.1-43.9 [facility] Erythrocyte distribution width (RBC) [Ratio] 13.9 % 11.6-14.6 [facility] Immature granulocytes/100 WBC (Bld) 0.400 % 0.0-0.9 [facility] Comment on above: IG% - Immature Granu locytes (promyelocytes, myelocytes and metamyelocytes) > 1% indicates that a LEFT SHIFT is Present. MCH (RBC) [Entitic mass] 28.6 pg 27.0-32.0 [facility] Nucleated RBC/100 WBC (Bld) [Ratio] 0 % 0-5 [facility] MCHC Auto (RBC) [Mass/Vol]Or dered By: Diana Ramos on 01-01-2023 MCHC (RBC) [Mass/Vol] 31.0 g/dL 32-36 [facility] No Panel InformationOrdered By: Diana Ramos on 01-01-2023 Estimated GFR (MDRD) Amer 135 mL/min >60 [facility] Comment on above: GFR Calc Estimated GFR (MDRD) Non-Af Amer 111 mL/min >60 [facility] Comment on above: Non- GFR Calc Platelets bldOrdered By: Katarina Ramos on 01-01-2023 Platelets (Bld) [#/Vol] 245 10*3/uL 150-450 [facility] Serum or plasma albumin jasiel urement (mass/volume)Ordered By: Diana Ramos on 01-01-2023 Albumin [Mass/Vol] 2.7 g/dL 3.2-5.0 [facility] Serum or plasma albumin/glob ulin mass ratioOrdered By: Diana Ramos on 01-01-2023 Albumin/Globulin [Mass ratio] 0.6 {ratio} 0.9-2.4 [facility] Serum or plasma calcium jasiel urement (mass/volume)Ordered By: Diana Ramos on 01-01-2023 Calcium [Mass/Vol] 9.0 mg/dL 8.5-10.1 [facility] Serum or plasma creatinine m easurement (mass/volume)Ordered By: Diana Ramos on 01-01-2023 Creatinine [Mass/Vol] 0.59 mg/dL 0.55-1.02 [facility] Comment on above: The validity of the calculated GFR & GFRAA in patients over 70 years has not been determined. Clinical correlation is essential. Serum or plasma urea nitroge n measurement (mass/volume)Ordered By: Diana Ramos on 01-01-2023 Urea nitrogen [Mass/Vol] 22 mg/dL 7-18 [facility] Thin prep Papanicolaou smear with manual screeningOrdered By: Diana Ramos on 01-01-2023 Thin prep Papanicolaou smear with manual screening 16 U/L 15-37 [facility] Thin prep Papanicolaou smear with manual screening 6 5-15 [facility] Absolute lymphocyte countOrd ered By: Dr. Ramos on 10-27-2022 Lymphocytes Auto (Unsp spec) [#/Vol] 1.60 10*3/uL 0.83-4.51 [facility] Basophil percentageOrdered B y: Dr. Ramos on 10-27-2022 Basophils/100 WBC (Bld) 0.6 % 0-1 [facility] Bilirubin [Mass/Vol] 0.30 mg/dL 0.20-1.00 [facility] Comment on above: For patients on eltr ombopag therapy, use of Dimension Bascom TBIL is not recommended. Chloride [Moles/Vol] 108 mmol/L 98-107 [facility] Eosinophils/100 WBC (Bld) 5.5 % 0-5 [facility] Glucose [Mass/Vol] 119 mg/dL 74-106 [facility] Comment on above: Fasting Glucose resu lt from 100 to 125 mg/dL suggests IMPAIRED HOMEOSTASIS per A.D.A. criteria. Neutrophils (Bld) [#/Vol] 4.2 10*3/uL 2.0-7.7 [facility] Neutrophils/100 WBC (Bld) 61.7 % 47-70 [facility] Potassium [Moles/Vol] 4.1 mmol/L 3.5-5.1 [facility] Protein [Mass/Vol] 7.4 g/dL 6.4-8.2 [facility] Sodium [Moles/Vol] 139 mmol/L 136-145 [facility] WBC (Bld) [#/Vol] 6.9 10*3/uL 4.4-11.0 [facility] Blood erythrocytes count (nu mber/volume)Ordered By: Dr. Ramos on 10-27-2022 RBC (Bld) [#/Vol] 4.61 10*6/uL 4.2-5.4 [facility] Blood hemoglobin measurement (mass/volume)Ordered By: Dr. Ramos on 10-27-2022 Hemoglobin (Bld) [Mass/Vol] 13.5 g/dL 12.0-15.0 [facility] Blood lymphocytes/100 leukoc ytesOrdered By: Dr. Ramos on 10-27-2022 Lymphocytes/100 WBC (Bld) 23.4 % 19-41 [facility] Blood monocytes/100 leukocyt esOrdered By: Dr. Ramos on 10-27-2022 Monocytes/100 WBC (Bld) 8.5 % 0-10 [facility] Blood platelet mean volumeOr dered By: Dr. Ramos on 10-27-2022 Platelet mean volume (Bld) [Entitic vol] 11.3 fL 6.2-12.0 [facility] Determination of erythrocyte mean corpuscular volume (MCV)Ordered By: Dr. Ramos on 10-27-2022 MCV (RBC) [Entitic vol] 90.2 fL 81-99 [facility] Hematocrit Auto (Bld) [Volum e fraction]Ordered By: Dr. Ramos on 10-27-2022 Hematocrit (Bld) [Volume fraction] 41.6 % 37-47 [facility] Laboratory - Chemistry and C hemistry - challengeOrdered By: Dr. Ramos on 10-27-2022 ALP [Catalytic activity/Vol] 90 U/L 45-117 [facility] ALT [Catalytic activity/Vol] 24 U/L 13-56 [facility] CO2 [Moles/Vol] 27.0 mmol/L 21.0-32.0 [facility] Globulin (S) [Mass/Vol] 3.9 g/dL 2.2-4.2 [facility] Urea nitrogen/Creatinine [Mass ratio] 25.0 mg/mg 10-20 [facility] Laboratory - Hematology and Cell countsOrdered By: Dr. Ramos on 10-27-2022 Erythrocyte distribution width (RBC) [Entitic vol] 46.2 fL 35.1-43.9 [facility] Erythrocyte distribution width (RBC) [Ratio] 13.9 % 11.6-14.6 [facility] Immature granulocytes/100 WBC (Bld) 0.300 % 0.0-0.9 [facility] Comment on above: IG% - Immature Granu locytes (promyelocytes, myelocytes and metamyelocytes) > 1% indicates that a LEFT SHIFT is Present. MCH (RBC) [Entitic mass] 29.3 pg 27.0-32.0 [facility] Nucleated RBC/100 WBC (Bld) [Ratio] 0 % 0-5 [facility] MCHC Auto (RBC) [Mass/Vol]Or dered By: Dr. Ramos on 10-27-2022 MCHC (RBC) [Mass/Vol] 32.5 g/dL 32-36 [facility] No Panel InformationOrdered By: Dr. Ramos on 10-27-2022 Estimated GFR (MDRD) Amer 95 mL/min >60 [facility] Comment on above: GFR Calc Estimated GFR (MDRD) Non-Af Amer 78 mL/min >60 [facility] Comment on above: Non- GFR Calc Platelets bldOrdered By: Dr. Ramos on 10-27-2022 Platelets (Bld) [#/Vol] 171 10*3/uL 150-450 [facility] Serum or plasma albumin jasiel urement (mass/volume)Ordered By: Dr. Ramos on 10-27-2022 Albumin [Mass/Vol] 3.5 g/dL 3.2-5.0 [facility] Serum or plasma albumin/glob ulin mass ratioOrdered By: Dr. Ramos on 10-27-2022 Albumin/Globulin [Mass ratio] 0.9 {ratio} 0.9-2.4 [facility] Serum or plasma calcium jasiel urement (mass/volume)Ordered By: Dr. Ramos on 10-27-2022 Calcium [Mass/Vol] 9.2 mg/dL 8.5-10.1 [facility] Serum or plasma creatinine m easurement (mass/volume)Ordered By: Dr. Ramos on 10-27-2022 Creatinine [Mass/Vol] 0.80 mg/dL 0.55-1.02 [facility] Comment on above: The validity of the calculated GFR & GFRAA in patients over 70 years has not been determined. Clinical correlation is essential. Serum or plasma urea nitroge n measurement (mass/volume)Ordered By: Dr. Ramos on 10-27-2022 Urea nitrogen [Mass/Vol] 20 mg/dL 7-18 [facility] Thin prep Papanicolaou smear with manual screeningOrdered By: Dr. Ramos on 10-27-2022 Thin prep Papanicolaou smear with manual screening 18 U/L 15-37 [facility] Thin prep Papanicolaou smear with manual screening 4 5-15 [facility] Whole blood hemoglobin A1c/t otal hemoglobin ratio (mass fraction)Ordered By: Dr. Swift on 09-16-2022 HbA1c (Bld) [Mass fraction] 7.4 % 3.8-5.6 [facility] Comment on above: Normal < 5.7 % Predi abetic 5.7 - 6.4 % Diabetic >or= 6.5 % Please note range changes. Basophil percentageOrdered B y: Dr. Arizmendi on 08-10-2022 Chloride [Moles/Vol] 109 mmol/L 98-107 [facility] Cholesterol [Mass/Vol] 161 mg/dL <200 [facility] Comment on above: <200 mg/dL Desirable 200-240 mg/dL Borderline >240 mg/dL High Risk Glucose [Mass/Vol] 144 mg/dL 74-106 [facility] Comment on above: Fasting Glucose resu lt greater than or equal to 126 mg/dL suggests DIABETES MELLITUS per A.D.A. criteria. Potassium [Moles/Vol] 4.4 mmol/L 3.5-5.1 [facility] Sodium [Moles/Vol] 140 mmol/L 136-145 [facility] Triglyceride [Mass/Vol] 127 mg/dL <199 [facility] Comment on above: The drugs N-Acetylcy steine and Metamizole may falsely depress this assay.Serum Triglycerides Reference Interval Normal <150 mg/dL Borderline high 150 - 199 mg/dL High 200 - 499 mg/dL Very High > or = 500 mg/dL Laboratory - Chemistry and C hemistry - challengeOrdered By: Dr. Arizmendi on 08-10-2022 CO2 [Moles/Vol] 26.0 mmol/L 21.0-32.0 [facility] Free T4 [Mass/Vol] 1.21 ng/dL 0.76-1.46 [facility] Urea nitrogen/Creatinine [Mass ratio] 32.9 mg/mg 10-20 [facility] No Panel InformationOrdered By: Dr. Arizmendi on 08-10-2022 Estimated GFR (MDRD) Amer 122 mL/min >60 [facility] Comment on above: GFR Calc Estimated GFR (MDRD) Non-Af Amer 101 mL/min >60 [facility] Comment on above: Non- GFR Calc Free Triiodothyronine (T3) pg/dL 2.2 pg/mL 2.18-3.98 [facility] Thyroid Stimulating Hormone (TSH) 1.84 uIU/mL 0.358-3.74 [facility] Serum or plasma calcium jasiel urement (mass/volume)Ordered By: Dr. Arizmendi on 08-10-2022 Calcium [Mass/Vol] 9.1 mg/dL 8.5-10.1 [facility] Serum or plasma cholesterol in HDL measurement (mass/volume)Ordered By: Dr. Arizmendi on 08-10-2022 Cholesterol in HDL [Mass/Vol] 57 mg/dL >40 [facility] Comment on above: The drugs N-Acetylcy steine and Metamizole may falsely depress this assay. Reference Range HDL <40 mg/dL Low HDL Cholesterol HDL >or= 60 mg/dL High HDL Cholesterol Serum or plasma cholesterol in VLDL measurement (mass/volume)Ordered By: Dr. Arizmendi on 08-10-2022 Cholesterol in VLDL [Mass/Vol] 25 mg/dL 5-40 [facility] Serum or plasma creatinine m easurement (mass/volume)Ordered By: Dr. Arizmendi on 08-10-2022 Creatinine [Mass/Vol] 0.64 mg/dL 0.55-1.02 [facility] Comment on above: The validity of the calculated GFR & GFRAA in patients over 70 years has not been determined. Clinical correlation is essential. Serum or plasma low density lipoprotein (LDL) cholesterol measurement (mass/volume)Ordered By: Dr. Arizmendi on 08-10-2022 Cholesterol in LDL [Mass/Vol] 79 mg/dL 0-130 [facility] Serum or plasma urea nitroge n measurement (mass/volume)Ordered By: Dr. Arizmendi on 08-10-2022 Urea nitrogen [Mass/Vol] 21 mg/dL 7-18 [facility] Thin prep Papanicolaou smear with manual screeningOrdered By: Dr. Arizmendi on 08-10-2022 Thin prep Papanicolaou smear with manual screening 5 5-15 [facility] Absolute lymphocyte countOrd ered By: Dr. Ramos on 08-03-2022 Lymphocytes Auto (Unsp spec) [#/Vol] 1.48 10*3/uL 0.83-4.51 [facility] Basophil percentageOrdered B y: Dr. Ramos on 08-03-2022 Basophils/100 WBC (Bld) 0.8 % 0-1 [facility] Bilirubin [Mass/Vol] 0.30 mg/dL 0.20-1.00 [facility] Comment on above: For patients on eltr ombopag therapy, use of Dimension Bascom TBIL is not recommended. Chloride [Moles/Vol] 105 mmol/L 98-107 [facility] Eosinophils/100 WBC (Bld) 0.8 % 0-5 [facility] Glucose [Mass/Vol] 142 mg/dL 74-106 [facility] Comment on above: Fasting Glucose resu lt greater than or equal to 126 mg/dL suggests DIABETES MELLITUS per A.D.A. criteria. Neutrophils (Bld) [#/Vol] 5.2 10*3/uL 2.0-7.7 [facility] Neutrophils/100 WBC (Bld) 71.5 % 47-70 [facility] Potassium [Moles/Vol] 4.5 mmol/L 3.5-5.1 [facility] Protein [Mass/Vol] 7.9 g/dL 6.4-8.2 [facility] Sodium [Moles/Vol] 138 mmol/L 136-145 [facility] WBC (Bld) [#/Vol] 7.3 10*3/uL 4.4-11.0 [facility] Blood erythrocytes count (nu mber/volume)Ordered By: Dr. Ramos on 08-03-2022 RBC (Bld) [#/Vol] 4.76 10*6/uL 4.2-5.4 [facility] Blood hemoglobin measurement (mass/volume)Ordered By: Dr. Ramos on 08-03-2022 Hemoglobin (Bld) [Mass/Vol] 14.0 g/dL 12.0-15.0 [facility] Blood lymphocytes/100 leukoc ytesOrdered By: Dr. Ramos on 08-03-2022 Lymphocytes/100 WBC (Bld) 20.3 % 19-41 [facility] Blood monocytes/100 leukocyt esOrdered By: Dr. Ramos on 08-03-2022 Monocytes/100 WBC (Bld) 6.5 % 0-10 [facility] Blood platelet mean volumeOr dered By: Dr. Ramos on 08-03-2022 Platelet mean volume (Bld) [Entitic vol] 10.5 fL 6.2-12.0 [facility] Determination of erythrocyte mean corpuscular volume (MCV)Ordered By: Dr. Ramos on 08-03-2022 MCV (RBC) [Entitic vol] 90.5 fL 81-99 [facility] Hematocrit Auto (Bld) [Volum e fraction]Ordered By: Dr. Ramos on 08-03-2022 Hematocrit (Bld) [Volume fraction] 43.1 % 37-47 [facility] Laboratory - Chemistry and C hemistry - challengeOrdered By: Dr. Ramos on 08-03-2022 ALP [Catalytic activity/Vol] 95 U/L 45-117 [facility] ALT [Catalytic activity/Vol] 15 U/L 13-56 [facility] CO2 [Moles/Vol] 27.0 mmol/L 21.0-32.0 [facility] Globulin (S) [Mass/Vol] 4.5 g/dL 2.2-4.2 [facility] Urea nitrogen/Creatinine [Mass ratio] 31.5 mg/mg 10-20 [facility] Laboratory - Hematology and Cell countsOrdered By: Dr. Ramos on 08-03-2022 Erythrocyte distribution width (RBC) [Entitic vol] 46.4 fL 35.1-43.9 [facility] Erythrocyte distribution width (RBC) [Ratio] 13.9 % 11.6-14.6 [facility] Immature granulocytes/100 WBC (Bld) 0.100 % 0.0-0.9 [facility] Comment on above: IG% - Immature Granu locytes (promyelocytes, myelocytes and metamyelocytes) > 1% indicates that a LEFT SHIFT is Present. MCH (RBC) [Entitic mass] 29.4 pg 27.0-32.0 [facility] Nucleated RBC/100 WBC (Bld) [Ratio] 0 % 0-5 [facility] MCHC Auto (RBC) [Mass/Vol]Or dered By: Dr. Ramos on 08-03-2022 MCHC (RBC) [Mass/Vol] 32.5 g/dL 32-36 [facility] No Panel InformationOrdered By: Dr. Ramos on 08-03-2022 Estimated GFR (MDRD) Amer 91 mL/min >60 [facility] Comment on above: GFR Calc Estimated GFR (MDRD) Non-Af Amer 75 mL/min >60 [facility] Comment on above: Non- GFR Calc Platelets bldOrdered By: Dr. Ramos on 08-03-2022 Platelets (Bld) [#/Vol] 219 10*3/uL 150-450 [facility] Serum or plasma albumin jasiel urement (mass/volume)Ordered By: Dr. Ramos on 08-03-2022 Albumin [Mass/Vol] 3.4 g/dL 3.2-5.0 [facility] Serum or plasma albumin/glob ulin mass ratioOrdered By: Dr. Ramos on 08-03-2022 Albumin/Globulin [Mass ratio] 0.8 {ratio} 0.9-2.4 [facility] Serum or plasma calcium jasiel urement (mass/volume)Ordered By: Dr. Ramos on 08-03-2022 Calcium [Mass/Vol] 9.9 mg/dL 8.5-10.1 [facility] Serum or plasma creatinine m easurement (mass/volume)Ordered By: Dr. Ramos on 08-03-2022 Creatinine [Mass/Vol] 0.82 mg/dL 0.55-1.02 [facility] Comment on above: The validity of the calculated GFR & GFRAA in patients over 70 years has not been determined. Clinical correlation is essential. Serum or plasma urea nitroge n measurement (mass/volume)Ordered By: Dr. Ramos on 08-03-2022 Urea nitrogen [Mass/Vol] 26 mg/dL 7-18 [facility] Thin prep Papanicolaou smear with manual screeningOrdered By: Dr. Ramos on 08-03-2022 Thin prep Papanicolaou smear with manual screening 11 U/L 15-37 [facility] Thin prep Papanicolaou smear with manual screening 6 5-15 [facility] Basophil percentageOrdered B y: Dr. Olsen on 06-17-2022 Bilirubin [Mass/Vol] 0.30 mg/dL 0.20-1.00 [facility] Comment on above: For patients on eltr ombopag therapy, use of Dimension Bascom TBIL is not recommended. Cholesterol [Mass/Vol] 158 mg/dL <200 [facility] Comment on above: <200 mg/dL Desirable 200-240 mg/dL Borderline >240 mg/dL High Risk Protein [Mass/Vol] 7.8 g/dL 6.4-8.2 [facility] Triglyceride [Mass/Vol] 270 mg/dL <199 [facility] Comment on above: The drugs N-Acetylcy steine and Metamizole may falsely depress this assay.Serum Triglycerides Reference Interval Normal <150 mg/dL Borderline high 150 - 199 mg/dL High 200 - 499 mg/dL Very High > or = 500 mg/dL Direct bilirubinOrdered By: Dr. Olsen on 06-17-2022 Bilirubin.direct [Mass/Vol] 0.10 mg/dL 0.00-0.30 [facility] Laboratory - Chemistry and C hemistry - challengeOrdered By: Dr. Olsen on 06-17-2022 ALP [Catalytic activity/Vol] 97 U/L 45-117 [facility] ALT [Catalytic activity/Vol] 17 U/L 13-56 [facility] Globulin (S) [Mass/Vol] 4.5 g/dL 2.2-4.2 [facility] No Panel InformationOrdered By: Dr. Jefferson on 06-17-2022 Thyroid Stimulating Hormone (TSH) 5.80 uIU/mL 0.358-3.74 [facility] Serum or plasma albumin jasiel urement (mass/volume)Ordered By: Dr. Olsen on 06-17-2022 Albumin [Mass/Vol] 3.3 g/dL 3.2-5.0 [facility] Serum or plasma cholesterol in HDL measurement (mass/volume)Ordered By: Dr. Olsen on 06-17-2022 Cholesterol in HDL [Mass/Vol] 53 mg/dL >40 [facility] Comment on above: The drugs N-Acetylcy steine and Metamizole may falsely depress this assay. Reference Range HDL <40 mg/dL Low HDL Cholesterol HDL >or= 60 mg/dL High HDL Cholesterol Serum or plasma cholesterol in VLDL measurement (mass/volume)Ordered By: Dr. Olsen on 06-17-2022 Cholesterol in VLDL [Mass/Vol] 54 mg/dL 5-40 [facility] Serum or plasma low density lipoprotein (LDL) cholesterol measurement (mass/volume)Ordered By: Dr. Olsen on 06-17-2022 Cholesterol in LDL [Mass/Vol] 51 mg/dL 0-130 [facility] Thin prep Papanicolaou smear with manual screeningOrdered By: Dr. Olsen on 06-17-2022 Thin prep Papanicolaou smear with manual screening 11 U/L 15-37 [facility] Absolute lymphocyte countOrd ered By: Dr. Ramos on 05-11-2022 Lymphocytes Auto (Unsp spec) [#/Vol] 2.04 10*3/uL 0.83-4.51 [facility] Basophil percentageOrdered B y: Dr. Ramos on 05-11-2022 Basophils/100 WBC (Bld) 0.9 % 0-1 [facility] Bilirubin [Mass/Vol] 0.30 mg/dL 0.20-1.00 [facility] Comment on above: For patients on eltr ombopag therapy, use of Dimension Bascom TBIL is not recommended. Chloride [Moles/Vol] 107 mmol/L 98-107 [facility] Eosinophils/100 WBC (Bld) 5.0 % 0-5 [facility] Glucose [Mass/Vol] 133 mg/dL 74-106 [facility] Comment on above: Fasting Glucose resu lt greater than or equal to 126 mg/dL suggests DIABETES MELLITUS per A.D.A. criteria. Neutrophils (Bld) [#/Vol] 3.8 10*3/uL 2.0-7.7 [facility] Neutrophils/100 WBC (Bld) 56.2 % 47-70 [facility] Potassium [Moles/Vol] 3.6 mmol/L 3.5-5.1 [facility] Protein [Mass/Vol] 7.4 g/dL 6.4-8.2 [facility] Sodium [Moles/Vol] 139 mmol/L 136-145 [facility] WBC (Bld) [#/Vol] 6.8 10*3/uL 4.4-11.0 [facility] Blood erythrocytes count (nu mber/volume)Ordered By: Dr. Ramos on 05-11-2022 RBC (Bld) [#/Vol] 4.58 10*6/uL 4.2-5.4 [facility] Blood hemoglobin measurement (mass/volume)Ordered By: Dr. Ramos on 05-11-2022 Hemoglobin (Bld) [Mass/Vol] 13.5 g/dL 12.0-15.0 [facility] Blood lymphocytes/100 leukoc ytesOrdered By: Dr. Ramos on 05-11-2022 Lymphocytes/100 WBC (Bld) 30.0 % 19-41 [facility] Blood monocytes/100 leukocyt esOrdered By: Dr. Ramos on 05-11-2022 Monocytes/100 WBC (Bld) 7.6 % 0-10 [facility] Blood platelet mean volumeOr dered By: Dr. Ramos on 05-11-2022 Platelet mean volume (Bld) [Entitic vol] 10.4 fL 6.2-12.0 [facility] Determination of erythrocyte mean corpuscular volume (MCV)Ordered By: Dr. Ramos on 05-11-2022 MCV (RBC) [Entitic vol] 92.6 fL 81-99 [facility] Hematocrit Auto (Bld) [Volum e fraction]Ordered By: Dr. Ramos on 05-11-2022 Hematocrit (Bld) [Volume fraction] 42.4 % 37-47 [facility] Laboratory - Chemistry and C hemistry - challengeOrdered By: Dr. Ramos on 05-11-2022 ALP [Catalytic activity/Vol] 90 U/L 45-117 [facility] ALT [Catalytic activity/Vol] 15 U/L 13-56 [facility] CO2 [Moles/Vol] 26.0 mmol/L 21.0-32.0 [facility] Globulin (S) [Mass/Vol] 4.1 g/dL 2.2-4.2 [facility] Urea nitrogen/Creatinine [Mass ratio] 29.1 mg/mg 10-20 [facility] Laboratory - Hematology and Cell countsOrdered By: Dr. Ramos on 05-11-2022 Erythrocyte distribution width (RBC) [Entitic vol] 48.6 fL 35.1-43.9 [facility] Erythrocyte distribution width (RBC) [Ratio] 14.2 % 11.6-14.6 [facility] Immature granulocytes/100 WBC (Bld) 0.300 % 0.0-0.9 [facility] Comment on above: IG% - Immature Granu locytes (promyelocytes, myelocytes and metamyelocytes) > 1% indicates that a LEFT SHIFT is Present. MCH (RBC) [Entitic mass] 29.5 pg 27.0-32.0 [facility] Nucleated RBC/100 WBC (Bld) [Ratio] 0 % 0-5 [facility] MCHC Auto (RBC) [Mass/Vol]Or dered By: Dr. Ramos on 05-11-2022 MCHC (RBC) [Mass/Vol] 31.8 g/dL 32-36 [facility] No Panel InformationOrdered By: Dr. Ramos on 05-11-2022 Estimated GFR (MDRD) Amer 120 mL/min >60 [facility] Comment on above: GFR Calc Estimated GFR (MDRD) Non-Af Amer 99 mL/min >60 [facility] Comment on above: Non- GFR Calc Platelets bldOrdered By: Dr. Ramos on 05-11-2022 Platelets (Bld) [#/Vol] 215 10*3/uL 150-450 [facility] Serum or plasma albumin jasiel urement (mass/volume)Ordered By: Dr. Ramos on 05-11-2022 Albumin [Mass/Vol] 3.3 g/dL 3.2-5.0 [facility] Serum or plasma albumin/glob ulin mass ratioOrdered By: Dr. Ramos on 05-11-2022 Albumin/Globulin [Mass ratio] 0.8 {ratio} 0.9-2.4 [facility] Serum or plasma calcium jasiel urement (mass/volume)Ordered By: Dr. Ramos on 05-11-2022 Calcium [Mass/Vol] 9.1 mg/dL 8.5-10.1 [facility] Serum or plasma creatinine m easurement (mass/volume)Ordered By: Dr. Ramos on 05-11-2022 Creatinine [Mass/Vol] 0.65 mg/dL 0.55-1.02 [facility] Comment on above: The validity of the calculated GFR & GFRAA in patients over 70 years has not been determined. Clinical correlation is essential. Serum or plasma urea nitroge n measurement (mass/volume)Ordered By: Dr. Ramos on 05-11-2022 Urea nitrogen [Mass/Vol] 19 mg/dL -18 [facility] Thin prep Papanicolaou smear with manual screeningOrdered By: Dr. Ramos on 05-11-2022 Thin prep Papanicolaou smear with manual screening 13 U/L 15- [facility] Thin prep Papanicolaou smear with manual screening 6 5-15 [facility] Serum or plasma calcium jasiel urement (mass/volume)Ordered By: Roxana Hickey on 04-28-2022 Calcium [Mass/Vol] 9.7 mg/dL 8.5-10.1 [facility] Serum or plasma calcium jasiel urement (mass/volume)on 04-15-2022 Calcium [Mass/Vol] 9.2 mg/dL 8.5-10.1 [facility] Work Phone: Basophil percentageon 2021 Basophil percentage 2.4 mg/dL 2.5-4.9 [facility] Work Phone: Chloride [Moles/Vol] 111 mmol/L 98-107 [facility] Work [facility]: Glucose [Mass/Vol] 127 mg/dL 74-106 [facility] Work Phone: Comment on above: Fasting Glucose resu lt greater than or equal to 126 mg/dL suggests DIABETES MELLITUS per A.D.A. criteria. Potassium [Moles/Vol] 4.3 mmol/L 3.5-5.1 [facility] Work Phone: Sodium [Moles/Vol] 141 mmol/L 136-145 [facility] Work Phone: WBC (Bld) [#/Vol] 7.5 10*3/uL 4.4-11.0 [facility] Work Phone: Blood erythrocytes count (nu mber/volume)on 04-11-2022 RBC (Bld) [#/Vol] 4.59 10*6/uL 4.2-5.4 [facility] Work Phone: Blood hemoglobin measurement (mass/volume)on 04-11-2022 Hemoglobin (Bld) [Mass/Vol] 13.5 g/dL 12.0-15.0 [facility] Work Phone: Blood platelet mean volumeon 04-11-2022 Platelet mean volume (Bld) [Entitic vol] 10.0 fL 6.2-12.0 [facility] Work Phone: Determination of erythrocyte mean corpuscular volume (MCV)on 04-11-2022 MCV (RBC) [Entitic vol] 91.7 fL 81-99 [facility] Work Phone: Hematocrit Auto (Bld) [Volum e fraction]on 04-11-2022 Hematocrit (Bld) [Volume fraction] 42.1 % 37-47 [facility] Work Phone: Laboratory - Chemistry and C hemistry - challengeon 04-11-2022 CO2 [Moles/Vol] 27.0 mmol/L 21.0-32.0 [facility] Work Phone: Magnesium [Mass/Vol] 2.2 mg/dL 1.6-2.6 [facility] Work Phone: Urea nitrogen/Creatinine [Mass ratio] 29.2 mg/mg 10-20 [facility] Work Phone: Laboratory - Hematology and Cell countson 04-11-2022 Erythrocyte distribution width (RBC) [Entitic vol] 47.1 fL 35.1-43.9 [facility] Work Phone: Erythrocyte distribution width (RBC) [Ratio] 14.1 % 11.6-14.6 [facility] Work Phone: MCH (RBC) [Entitic mass] 29.4 pg 27.0-32.0 [facility] Work Phone: MCHC Auto (RBC) [Mass/Vol]on 04-11-2022 MCHC (RBC) [Mass/Vol] 32.1 g/dL 32-36 [facility] Work Phone: No Panel Informationon 04-11 Estimated GFR (MDRD) Amer 120 mL/min >60 [facility] Work Phone: Comment on above: GFR Calc Estimated GFR (MDRD) Non-Af Amer 99 mL/min >60 [facility] Work Phone: Comment on above: Non- GFR Calc Thyroid Stimulating Hormone (TSH) 1.31 uIU/mL 0.358-3.74 [facility] Work Phone: Platelets bldon 04-11-2022 Platelets (Bld) [#/Vol] 206 10*3/uL 150-450 [facility] Work Phone: Serum or plasma calcium jasiel urement (mass/volume)on 04-11-2022 Calcium [Mass/Vol] 9.3 mg/dL 8.5-10.1 [facility] Work Phone: Serum or plasma creatinine m easurement (mass/volume)on 04-11-2022 Creatinine [Mass/Vol] 0.65 mg/dL 0.55-1.02 [facility] Work Phone: Comment on above: The validity of the calculated GFR & GFRAA in patients over 70 years has not been determined. Clinical correlation is essential. Serum or plasma urea nitroge n measurement (mass/volume)on 04-11-2022 Urea nitrogen [Mass/Vol] 19 mg/dL 7-18 [facility] Work Phone: Thin prep Papanicolaou smear with manual screeningon 04-11-2022 Thin prep Papanicolaou smear with manual screening 3 5-15 [facility] Work Phone: Basophil percentageon 2021 Chloride [Moles/Vol] 110 mmol/L 98-107 [facility] Work Phone: Glucose [Mass/Vol] 108 mg/dL 74-106 [facility] Work Phone: Comment on above: Fasting Glucose resu lt from 100 to 125 mg/dL suggests IMPAIRED HOMEOSTASIS per A.D.A. criteria. Potassium [Moles/Vol] 4.1 mmol/L 3.5-5.1 [facility] Work Phone: Sodium [Moles/Vol] 144 mmol/L 136-145 [facility] Work Phone: WBC (Bld) [#/Vol] 6.8 10*3/uL 4.4-11.0 [facility] Work Phone: Blood erythrocytes count (nu mber/volume)on 03-17-2022 RBC (Bld) [#/Vol] 4.81 10*6/uL 4.2-5.4 [facility] Work Phone: Blood hemoglobin measurement (mass/volume)on 03-17-2022 Hemoglobin (Bld) [Mass/Vol] 14.0 g/dL 12.0-15.0 [facility] Work Phone: Blood platelet mean volumeon 03-17-2022 Platelet mean volume (Bld) [Entitic vol] 9.5 fL 6.2-12.0 [facility] Work Phone: Determination of erythrocyte mean corpuscular volume (MCV)on 03-17-2022 MCV (RBC) [Entitic vol] 90.4 fL 81-99 [facility] Work Phone: Hematocrit Auto (Bld) [Volum e fraction]on 03-17-2022 Hematocrit (Bld) [Volume fraction] 43.5 % 37-47 [facility] Work Phone: INR in Blood by Coagulation assayon 03-17-2022 INR Coag (Bld) [Relative time] 1.0 {INR} [facility] Work Phone: Laboratory - Chemistry and C hemistry - challengeon 03-17-2022 CO2 [Moles/Vol] 31.0 mmol/L 21.0-32.0 [facility] Work Phone: Urea nitrogen/Creatinine [Mass ratio] 20.9 mg/mg 04-16 [facility] Work Phone: Laboratory - Coagulationon 0 03-17-2022 aPTT Coag (Bld) [Time] 25.3 s 24.1-36.2 [facility] Work Phone: PT Coag (PPP) [Time] 12.4 s 11.7-14.9 [facility] Work Phone: Laboratory - Hematology and Cell countson 03-17-2022 Erythrocyte distribution width (RBC) [Entitic vol] 47.3 fL 35.1-43.9 [facility] Work Phone: Erythrocyte distribution width (RBC) [Ratio] 14.2 % 11.6-14.6 [facility] Work Phone: MCH (RBC) [Entitic mass] 29.1 pg 27.0-32.0 [facility] Work Phone: MCHC Auto (RBC) [Mass/Vol]on 03-17-2022 MCHC (RBC) [Mass/Vol] 32.2 g/dL 32-36 [facility] Work Phone: No Panel Informationon 03-17 Estimated Creatinine Clearance Calc 71.04 ml/min [facility] Work Phone: Estimated GFR (MDRD) Amer 126 mL/min >60 [facility] Work Phone: Comment on above: GFR Calc Estimated GFR (MDRD) Non-Af Amer 104 mL/min >60 [facility] Work Phone: Comment on above: Non- GFR Calc Platelets bldon 03-17-2022 Platelets (Bld) [#/Vol] 212 10*3/uL 150-450 [facility] Work Phone: Serum or plasma calcium jasiel urement (mass/volume)on 03-17-2022 Calcium [Mass/Vol] 9.9 mg/dL 8.5-10.1 [facility] Work Phone: Serum or plasma creatinine m easurement (mass/volume)on 03-17-2022 Creatinine [Mass/Vol] 0.62 mg/dL 0.55-1.02 [facility] Work Phone: Comment on above: The validity of the calculated GFR & GFRAA in patients over 70 years has not been determined. Clinical correlation is essential. Serum or plasma urea nitroge n measurement (mass/volume)on 03-17-2022 Urea nitrogen [Mass/Vol] 13 mg/dL 7-18 [facility] Work Phone: Thin prep Papanicolaou smear with manual screeningon 03-17-2022 Thin prep Papanicolaou smear with manual screening 3 5-15 [facility] Work Phone: Absolute lymphocyte counton 02-04-2022 Lymphocytes Auto (Unsp spec) [#/Vol] 1.83 10*3/uL 0.83-4.51 [facility] Work Phone: Basophil percentageon 2021 Basophils/100 WBC (Bld) 0.7 % 0-1 [facility] Work Phone: Bilirubin [Mass/Vol] 0.30 mg/dL 0.20-1.00 [facility] Work Phone: Comment on above: For patients on eltr ombopag therapy, use of Dimension Bascom TBIL is not recommended. Chloride [Moles/Vol] 110 mmol/L 98-107 [facility] Work Phone: [phone] Eosinophils/100 WBC (Bld) 6.0 % 0-5 [facility] Work Phone: [phone] Glucose [Mass/Vol] 121 mg/dL 74-106 [facility] Work Phone: Comment on above: Fasting Glucose resu lt from 100 to 125 mg/dL suggests IMPAIRED HOMEOSTASIS per A.D.A. criteria. Neutrophils (Bld) [#/Vol] 4.3 10*3/uL 2.0-7.7 [facility] Work Phone: Neutrophils/100 WBC (Bld) 58.7 % 47-70 [facility] Work Phone: [phone] Potassium [Moles/Vol] 4.1 mmol/L 3.5-5.1 [facility] Work Phone: Protein [Mass/Vol] 7.4 g/dL 6.4-8.2 [facility] Work Phone: [phone] Sodium [Moles/Vol] 142 mmol/L 136-145 [facility] Work Phone: WBC (Bld) [#/Vol] 7.3 10*3/uL 4.4-11.0 [facility] Work Phone: [phone] Blood erythrocytes count (nu mber/volume)on 02-04-2022 RBC (Bld) [#/Vol] 4.52 10*6/uL 4.2-5.4 [facility] Work Phone: Blood hemoglobin measurement (mass/volume)on 02-04-2022 Hemoglobin (Bld) [Mass/Vol] 13.0 g/dL 12.0-15.0 [facility] Work Phone: Blood lymphocytes/100 leukoc yteson 02-04-2022 Lymphocytes/100 WBC (Bld) 24.9 % 19-41 [facility] Work Phone: Blood monocytes/100 leukocyt eson 02-04-2022 Monocytes/100 WBC (Bld) 9.3 % 0-10 [facility] Work Phone: Blood platelet mean volumeon 02-04-2022 Platelet mean volume (Bld) [Entitic vol] 10.8 fL 6.2-12.0 [facility] Work Phone: Determination of erythrocyte mean corpuscular volume (MCV)on 02-04-2022 MCV (RBC) [Entitic vol] 91.8 fL 81-99 [facility] Work Phone: Hematocrit Auto (Bld) [Volum e fraction]on 02-04-2022 Hematocrit (Bld) [Volume fraction] 41.5 % 37-47 [facility] Work Phone: Laboratory - Chemistry and C hemistry - challengeon 02-04-2022 ALP [Catalytic activity/Vol] 84 U/L 45-117 [facility] Work Phone: ALT [Catalytic activity/Vol] 13 U/L 13-56 [facility] Work Phone: CO2 [Moles/Vol] 27.0 mmol/L 21.0-32.0 [facility] Work Phone: Globulin (S) [Mass/Vol] 4.2 g/dL 2.2-4.2 [facility] Work Phone: Urea nitrogen/Creatinine [Mass ratio] 35.5 mg/mg 10-20 [facility] Work Phone: Laboratory - Hematology and Cell countson 02-04-2022 Erythrocyte distribution width (RBC) [Entitic vol] 48.0 fL 35.1-43.9 [facility] Work Phone: Erythrocyte distribution width (RBC) [Ratio] 14.2 % 11.6-14.6 [facility] Work Phone: Immature granulocytes/100 WBC (Bld) 0.400 % 0.0-0.9 [facility] Work Phone: Comment on above: IG% - Immature Granu locytes (promyelocytes, myelocytes and metamyelocytes) > 1% indicates that a LEFT SHIFT is Present. MCH (RBC) [Entitic mass] 28.8 pg 27.0-32.0 [facility] Work Phone: Nucleated RBC/100 WBC (Bld) [Ratio] 0 % 0-5 [facility] Work Phone: MCHC Auto (RBC) [Mass/Vol]on 02-04-2022 MCHC (RBC) [Mass/Vol] 31.3 g/dL 32-36 [facility] Work Phone: No Panel Informationon 02-04 Estimated GFR (MDRD) Amer 121 mL/min >60 [facility] Work Phone: Comment on above: GFR Calc Estimated GFR (MDRD) Non-Af Amer 100 mL/min >60 [facility] Work Phone: Comment on above: Non- GFR Calc Platelets bldon 02-04-2022 Platelets (Bld) [#/Vol] 180 10*3/uL 150-450 [facility] Work Phone: Serum or plasma albumin jasiel urement (mass/volume)on 02-04-2022 Albumin [Mass/Vol] 3.2 g/dL 3.2-5.0 [facility] Work Phone: Serum or plasma albumin/glob ulin mass ratioon 02-04-2022 Albumin/Globulin [Mass ratio] 0.8 {ratio} 0.9-2.4 [facility] Work Phone: Serum or plasma calcium jasiel urement (mass/volume)on 02-04-2022 Calcium [Mass/Vol] 9.1 mg/dL 8.5-10.1 [facility] Work Phone: Serum or plasma creatinine m easurement (mass/volume)on 02-04-2022 Creatinine [Mass/Vol] 0.65 mg/dL 0.55-1.02 [facility] Work Phone: Comment on above: The validity of the calculated GFR & GFRAA in patients over 70 years has not been determined. Clinical correlation is essential. Serum or plasma urea nitroge n measurement (mass/volume)on 02-04-2022 Urea nitrogen [Mass/Vol] 23 mg/dL 7-18 [facility] Work Phone: Thin prep Papanicolaou smear with manual screeningon 02-04-2022 Thin prep Papanicolaou smear with manual screening 13 U/L 15-37 [facility] Work Phone: Thin prep Papanicolaou smear with manual screening 5 5-15 [facility] Work Phone: Absolute lymphocyte counton 10-17-2021 Lymphocytes Auto (Unsp spec) [#/Vol] 1.37 10*3/uL 0.83-4.51 [facility] Work Phone: Basophil percentageon 2021 Basophils/100 WBC (Bld) 0.8 % 0-1 [facility] Work Phone: Bilirubin [Mass/Vol] 0.40 mg/dL 0.20-1.00 [facility] Work Phone: Comment on above: For patients on eltr ombopag therapy, use of Dimension Bascom TBIL is not recommended. Chloride [Moles/Vol] 110 mmol/L 98-107 [facility] Work Phone: Eosinophils/100 WBC (Bld) 3.9 % 0-5 [facility] Work Phone: Glucose [Mass/Vol] 119 mg/dL 74-106 [facility] Work Phone: Comment on above: Fasting Glucose resu lt from 100 to 125 mg/dL suggests IMPAIRED HOMEOSTASIS per A.D.A. criteria. Neutrophils (Bld) [#/Vol] 4.5 10*3/uL 2.0-7.7 [facility] Work Phone: Neutrophils/100 WBC (Bld) 67.4 % 47-70 [facility] Work Phone: Potassium [Moles/Vol] 4.5 mmol/L 3.5-5.1 [facility] Work Phone: Protein [Mass/Vol] 7.9 g/dL 6.4-8.2 [facility] Work Phone: Sodium [Moles/Vol] 138 mmol/L 136-145 [facility] Work Phone: WBC (Bld) [#/Vol] 6.6 10*3/uL 4.4-11.0 [facility] Work Phone: Blood erythrocytes count (nu mber/volume)on 10-17-2021 RBC (Bld) [#/Vol] 5.03 10*6/uL 4.2-5.4 [facility] Work Phone: Blood hemoglobin measurement (mass/volume)on 10-17-2021 Hemoglobin (Bld) [Mass/Vol] 14.6 g/dL 12.0-15.0 [facility] Work Phone: Blood lymphocytes/100 leukoc yteson 10-17-2021 Lymphocytes/100 WBC (Bld) 20.7 % 19-41 [facility] Work Phone: Blood monocytes/100 leukocyt eson 10-17-2021 Monocytes/100 WBC (Bld) 6.9 % 0-10 [facility] Work Phone: Blood platelet mean volumeon 10-17-2021 Platelet mean volume (Bld) [Entitic vol] 10.4 fL 6.2-12.0 [facility] Work Phone: Determination of erythrocyte mean corpuscular volume (MCV)on 10-17-2021 MCV (RBC) [Entitic vol] 89.3 fL 81-99 [facility] Work Phone: Hematocrit Auto (Bld) [Volum e fraction]on 10-17-2021 Hematocrit (Bld) [Volume fraction] 44.9 % 37-47 [facility] Work Phone: Laboratory - Chemistry and C hemistry - challengeon 10-17-2021 ALP [Catalytic activity/Vol] 87 U/L 45-117 [facility] Work Phone: ALT [Catalytic activity/Vol] 16 U/L 13-56 [facility] Work Phone: CO2 [Moles/Vol] 24.0 mmol/L 21.0-32.0 [facility] Work Phone: Globulin (S) [Mass/Vol] 4.5 g/dL 2.2-4.2 [facility] Work Phone: Urea nitrogen/Creatinine [Mass ratio] 33.9 mg/mg 10-20 [facility] Work Phone: Laboratory - Hematology and Cell countson 10-17-2021 Erythrocyte distribution width (RBC) [Entitic vol] 46.2 fL 35.1-43.9 [facility] Work Phone: Erythrocyte distribution width (RBC) [Ratio] 14.1 % 11.6-14.6 [facility] Work Phone: Immature granulocytes/100 WBC (Bld) 0.300 % 0.0-0.9 [facility] Work Phone: Comment on above: IG% - Immature Granu locytes (promyelocytes, myelocytes and metamyelocytes) > 1% indicates that a LEFT SHIFT is Present. MCH (RBC) [Entitic mass] 29.0 pg 27.0-32.0 [facility] Work Phone: Nucleated RBC/100 WBC (Bld) [Ratio] 0 % 0-5 [facility] Work Phone: MCHC Auto (RBC) [Mass/Vol]on 10-17-2021 MCHC (RBC) [Mass/Vol] 32.5 g/dL 32-36 [facility] Work Phone: No Panel Informationon 10-17 Estimated GFR (MDRD) Amer 121 mL/min >60 [facility] Work Phone: Comment on above: GFR Calc Estimated GFR (MDRD) Non-Af Amer 100 mL/min >60 [facility] Work Phone: Comment on above: Non- GFR Calc Platelets bldon 10-17-2021 Platelets (Bld) [#/Vol] 197 10*3/uL 150-450 [facility] Work Phone: Serum or plasma albumin jasiel urement (mass/volume)on 10-17-2021 Albumin [Mass/Vol] 3.4 g/dL 3.2-5.0 [facility] Work Phone: Serum or plasma albumin/glob ulin mass ratioon 10-17-2021 Albumin/Globulin [Mass ratio] 0.8 {ratio} 0.9-2.4 [facility] Work Phone: Serum or plasma calcium jasiel urement (mass/volume)on 10-17-2021 Calcium [Mass/Vol] 9.3 mg/dL 8.5-10.1 [facility] Work Phone: Serum or plasma creatinine m easurement (mass/volume)on 10-17-2021 Creatinine [Mass/Vol] 0.65 mg/dL 0.55-1.02 [facility] Work Phone: Comment on above: The validity of the calculated GFR & GFRAA in patients over 70 years has not been determined. Clinical correlation is essential. Serum or plasma urea nitroge n measurement (mass/volume)on 10-17-2021 Urea nitrogen [Mass/Vol] 22 mg/dL 7-18 [facility] Work Phone: Thin prep Papanicolaou smear with manual screeningon 10-17-2021 Thin prep Papanicolaou smear with manual screening 14 U/L 15-37 [facility] Work Phone: Thin prep Papanicolaou smear with manual screening 4 5-15 [facility] Work Phone: Absolute lymphocyte counton 08-05-2021 Lymphocytes Auto (Unsp spec) [#/Vol] 1.92 10*3/uL 0.83-4.51 [facility] Work Phone: Basophil percentageon 2021 Basophils/100 WBC (Bld) 1.1 % 0-1 [facility] Work Phone: Bilirubin [Mass/Vol] 0.30 mg/dL 0.20-1.00 [facility] Work Phone: Comment on above: For patients on eltr ombopag therapy, use of Dimension Bascom TBIL is not recommended. Chloride [Moles/Vol] 108 mmol/L 98-107 [facility] Work Phone: Eosinophils/100 WBC (Bld) 5.3 % 0-5 [facility] Work Phone: Glucose [Mass/Vol] 103 mg/dL 74-106 [facility] Work Phone: Comment on above: Fasting Glucose resu lt from 100 to 125 mg/dL suggests IMPAIRED HOMEOSTASIS per A.D.A. criteria. Neutrophils (Bld) [#/Vol] 3.7 10*3/uL 2.0-7.7 [facility] Work Phone: Neutrophils/100 WBC (Bld) 56.6 % 47-70 [facility] Work Phone: Potassium [Moles/Vol] 4.3 mmol/L 3.5-5.1 [facility] Work Phone: Protein [Mass/Vol] 7.2 g/dL 6.4-8.2 [facility] Work Phone: Sodium [Moles/Vol] 141 mmol/L 136-145 [facility] Work Phone: WBC (Bld) [#/Vol] 6.6 10*3/uL 4.4-11.0 [facility] Work Phone: Blood erythrocytes count (nu mber/volume)on 08-05-2021 RBC (Bld) [#/Vol] 4.76 10*6/uL 4.2-5.4 [facility] Work Phone: Blood hemoglobin measurement (mass/volume)on 08-05-2021 Hemoglobin (Bld) [Mass/Vol] 14.0 g/dL 12.0-15.0 [facility] Work Phone: Blood lymphocytes/100 leukoc yteson 08-05-2021 Lymphocytes/100 WBC (Bld) 29.1 % 19-41 [facility] Work Phone: Blood monocytes/100 leukocyt eson 08-05-2021 Monocytes/100 WBC (Bld) 7.6 % 0-10 [facility] Work Phone: Blood platelet mean volumeon 08-05-2021 Platelet mean volume (Bld) [Entitic vol] 10.0 fL 6.2-12.0 [facility] Work Phone: Determination of erythrocyte mean corpuscular volume (MCV)on 08-05-2021 MCV (RBC) [Entitic vol] 89.9 fL 81-99 [facility] Work Phone: Hematocrit Auto (Bld) [Volum e fraction]on 08-05-2021 Hematocrit (Bld) [Volume fraction] 42.8 % 37-47 [facility] Work Phone: Laboratory - Chemistry and C hemistry - challengeon 08-05-2021 ALP [Catalytic activity/Vol] 92 U/L 45-117 [facility] Work Phone: ALT [Catalytic activity/Vol] 15 U/L 13-56 [facility] Work Phone: CO2 [Moles/Vol] 25.0 mmol/L 21.0-32.0 [facility] Work Phone: Globulin (S) [Mass/Vol] 3.8 g/dL 2.2-4.2 [facility] Work Phone: Urea nitrogen/Creatinine [Mass ratio] 29.7 mg/mg 10-20 [facility] Work Phone: Laboratory - Hematology and Cell countson 08-05-2021 Erythrocyte distribution width (RBC) [Entitic vol] 44.1 fL 35.1-43.9 [facility] Work Phone: Erythrocyte distribution width (RBC) [Ratio] 13.2 % 11.6-14.6 [facility] Work Phone: Immature granulocytes/100 WBC (Bld) 0.300 % 0.0-0.9 [facility] Work Phone: Comment on above: IG% - Immature Granu locytes (promyelocytes, myelocytes and metamyelocytes) > 1% indicates that a LEFT SHIFT is Present. MCH (RBC) [Entitic mass] 29.4 pg 27.0-32.0 [facility] Work Phone: Nucleated RBC/100 WBC (Bld) [Ratio] 0 % 0-5 [facility] Work Phone: MCHC Auto (RBC) [Mass/Vol]on 08-05-2021 MCHC (RBC) [Mass/Vol] 32.7 g/dL 32-36 [facility] Work Phone: No Panel Informationon 08-05 Estimated GFR (MDRD) Amer 109 mL/min >60 [facility] Work Phone: Comment on above: GFR Calc Estimated GFR (MDRD) Non-Af Amer 90 mL/min >60 [facility] Work Phone: Comment on above: Non- GFR Calc Platelets bldon 08-05-2021 Platelets (Bld) [#/Vol] 211 10*3/uL 150-450 [facility] Work Phone: Serum or plasma albumin jasiel urement (mass/volume)on 08-05-2021 Albumin [Mass/Vol] 3.4 g/dL 3.2-5.0 [facility] Work Phone: Serum or plasma albumin/glob ulin mass ratioon 08-05-2021 Albumin/Globulin [Mass ratio] 0.9 {ratio} 0.9-2.4 [facility] Work Phone: Serum or plasma calcium jasiel urement (mass/volume)on 08-05-2021 Calcium [Mass/Vol] 8.9 mg/dL 8.5-10.1 [facility] Work Phone: Serum or plasma creatinine m easurement (mass/volume)on 08-05-2021 Creatinine [Mass/Vol] 0.71 mg/dL 0.55-1.02 [facility] Work Phone: Comment on above: The validity of the calculated GFR & GFRAA in patients over 70 years has not been determined. Clinical correlation is essential. Serum or plasma urea nitroge n measurement (mass/volume)on 08-05-2021 Urea nitrogen [Mass/Vol] 21 mg/dL 7-18 [facility] Work Phone: Thin prep Papanicolaou smear with manual screeningon 08-05-2021 Thin prep Papanicolaou smear with manual screening 11 U/L 15-37 [facility] Work Phone: Thin prep Papanicolaou smear with manual screening 8 5-15 [facility] Work Phone: Culture, urine Bacteria identified Cx Nom (U) Klebsiella pneumoniae sp pneum [facility] Work Phone: Vital Signs Date Time Vital Sign Value Performing Clinician Facility 01-15-2025 01:15-0400 Diastolic blood pressure 58 mm[Hg] Dr. Nehemias Arizmendi MD Work Phone: [facility] 01-15-2025 01:15-0400 Heart rate 94 /min Dr. Nehemias Arizmendi MD Work Phone: [facility] 01-15-2025 01:15-0400 Inhaled oxygen flow rate 4 L/min Dr. Nehemias Arizmendi MD Work Phone: [facility] 01-15-2025 01:15-0400 Respiratory rate 18 /min Dr. Nehemias Arizmendi MD Work Phone: [facility] 01-15-2025 01:15-0400 SaO2% (BldA) [Mass fraction] 97 % Dr. Nehemias Arizmendi MD Work Phone: 7(374)249-097853 [place] [address] 01-15-2025 01:15-0400 Systolic blood pressure 106 mm[Hg] Dr. Nehemias Arizmendi MD Work Phone: 4(478)441-664753 [place] [address] 01-14-2025 23:50-0400 Body temperature 98.3 [degF] Dr. Nehemias Arizmendi MD Work Phone: 6(084)335-236753 [place] [address] 01-14-2025 19:00-0400 Body mass index (BMI) [Ratio] 37.1 kg/m2 Dr. Nehemias Arizmendi MD Work Phone: 1(558)753-622653 [place] [address] 01-14-2025 19:00-0400 Body weight 91.[address] Nehemias Arizmendi MD Work Phone: 9(151)237-781153 [place] [address] 01-14-2025 18:23-0400 Body height 157.[address] Nehemias Arizmendi MD Work Phone: 0(621)963-400153 [place] [address] 01-14-2025 10:03-0400 Body height 157.[address] Nehemias Arizmendi MD Work Phone: 5(279)127-873453 [place] [address] 01-14-2025 10:03-0400 Body mass index (BMI) [Ratio] 36.7 kg/m2 Dr. Nehemias Arizmendi MD Work Phone: 5(299)144-598953 [place] [address] 01-14-2025 10:03-0400 Body temperature 98 [degF] Dr. Nehemias Arizmendi MD Work Phone: 4(804)501-491253 [place] [address] 01-14-2025 10:03-0400 Body weight 91.[address] Nehemias Arizmendi MD Work Phone: 2(265)616-178553 [place] [address] 01-14-2025 10:03-0400 Diastolic blood pressure 72 mm[Hg] Dr. Nehemias Arizmendi MD Work Phone: 7(700)003-190853 [place] [address] 01-14-2025 10:03-0400 Heart rate 110 /min Dr. Nehemias Arizmendi MD Work Phone: [facility] 01-14-2025 10:03-0400 Respiratory rate 16 /min Dr. Nehemias Arizmendi MD Work Phone: [facility] 01-14-2025 10:03-0400 SaO2% (BldA) [Mass fraction] 99 % Dr. Nehemias Arizmendi MD Work Phone: 7(019)355-758675 [place] [address] 01-14-2025 10:03-0400 Systolic blood pressure 110 mm[Hg] Dr. Nehemias Arizmendi MD Work Phone: 0(222)254-230675 [place] [address] 10-23-2024 14:35-0400 Body temperature 98 [degF] Dr. Nehemias Arizmendi MD Work Phone: 2(226)942-286453 [place] [address] 10-23-2024 14:35-0400 Diastolic blood pressure 63 mm[Hg] Dr. Nehemias Arizmendi MD Work Phone: 4(907)736-657853 [place] [address] 10-23-2024 14:35-0400 Heart rate 86 /min Dr. Nehemias Arizmendi MD Work Phone: 7(199)180-020541 [address] 10-23-2024 14:35-0400 Inhaled oxygen flow rate 2 L/min Dr. Nehemias Arizmendi MD Work Phone: 9(967)716-839653 [place] [address] 10-23-2024 14:35-0400 Respiratory rate 18 /min Dr. Nehemias Arizmendi MD Work Phone: 6(802)897-216075 [place] [address] 10-23-2024 14:35-0400 SaO2% (BldA) [Mass fraction] 94 % Dr. Nehemias Arizmendi MD Work Phone: [facility] 10-23-2024 14:35-0400 Systolic blood pressure 103 mm[Hg] Dr. Nehemias Arizmendi MD Work Phone: 8(210)523-764141 [address] 10-22-2024 00:55-0400 Inhaled oxygen concentration 40 % Dr. Nehemias Arizmendi MD Work Phone: 6(524)954-722741 [address] 10-18-2024 23:10-0400 Body height 157.[address] Nehemias Arizmendi MD Work Phone: [facility] 10-18-2024 23:10-0400 Body mass index (BMI) [Ratio] 39.6 kg/m2 Dr. Nehemias Arizmendi MD Work Phone: [facility] 10-18-2024 23:10-0400 Body weight 98.[address] Nehemias Arizmendi MD Work Phone: [facility] 10-18-2024 21:14-0400 Heart rate 106 /min Dr. Nehemias Arizmendi MD Work Phone: [facility] 10-18-2024 21:14-0400 Inhaled oxygen flow rate 2 L/min Dr. Nehemias Arizmendi MD Work Phone: [facility] 10-18-2024 21:14-0400 Respiratory rate 21 /min Dr. Nehemias Arizmendi MD Work Phone: [facility] 10-18-2024 21:14-0400 SaO2% (BldA) [Mass fraction] 94 % Dr. Nehemias Arizmendi MD Work Phone: [facility] 10-18-2024 21:11-0400 Body temperature 98.5 [degF] Dr. Nehemias Arizmendi MD Work Phone: [facility] 10-18-2024 20:06-0400 Diastolic blood pressure 66 mm[Hg] Dr. Nehemias Arizmendi MD Work Phone: [facility] 10-18-2024 20:06-0400 Systolic blood pressure 98 mm[Hg] Dr. Nehemisa Arizmendi MD Work Phone: [facility] 01-09-2023 13:40-0400 Heart rate 99 /min ARIANA RIVAS MD [facility] 01-09-2023 13:35-0400 Heart rate 102 /min ARIANA RIVAS MD [facility] 01-09-2023 13:03-0400 Heart rate 88 /min ARIANA RIVAS MD [facility] 01-09-2023 13:03-0400 Respiratory rate 20 /min ARIANA RIVAS MD [address] [place] [address] 01-09-2023 13:01-0400 Heart rate 89 /min ARIANA RIVAS MD [address] [place] [address] 01-09-2023 10:59-0400 Body temperature 98.24 [degF] ARIANA RIVAS MD [address] [place] [address] 01-09-2023 10:59-0400 Diastolic Blood Pressure Non-Invasive 86 1 ARIANA RIVAS MD [address] [place] [address] 01-09-2023 10:59-0400 Reason For Taking VItal Signs ARIANA RIVAS MD [address] [place] [address] 01-09-2023 10:59-0400 Respiratory rate 18 /min ARIANA RIVAS MD [address] [place] [address] 01-09-2023 10:59-0400 Systolic Blood Pressure Non-Invasive 118 1 ARIANA RIVAS MD [address] [place] [address] 01-09-2023 07:45-0400 Body temperature 97.88 [degF] ARIANA RIVAS MD [address] [place] [address] 01-09-2023 07:45-0400 Diastolic Blood Pressure Non-Invasive 62 1 ARIANA RIVAS MD [address] [place] [address] 01-09-2023 07:45-0400 Systolic Blood Pressure Non-Invasive 115 1 ARIANA RIVAS MD [address] [place] [address] 01-09-2023 06:12-0400 Heart rate 84 /min ARIANA RIVAS MD [address] [place] [address] 01-09-2023 06:12-0400 Respiratory rate 20 /min ARIANA RIVAS MD [address] [place] [address] 01-09-2023 03:15-0400 Blood Pressure Location ARIANA RIVAS MD [address] [place] [address] 07-15-2023 03:15-0400 Blood Pressure Method ARIANA RIVAS MD [address] [place] [address] 01-09-2023 03:15-0400 Body temperature 97.88 [degF] ARIANA RIVAS MD [address] [place] [address] 01-09-2023 03:15-0400 Diastolic Blood Pressure Non-Invasive 71 1 ARIANA RIVAS MD [address] [place] [address] 01-09-2023 03:15-0400 Mean blood pressure 91 mm[Hg] ARIANA RIVAS MD [address] [place] [address] 01-09-2023 03:15-0400 Reason For Taking VItal Signs ARIANA RIVAS MD [address] [place] [address] 01-09-2023 03:15-0400 Systolic Blood Pressure Non-Invasive 137 1 ARIANA RIVAS MD [address] [place] [address] 01-09-2023 00:19-0400 Blood Pressure Location ARIANA RIVAS MD [address] [place] [address] 01-09-2023 00:19-0400 Blood Pressure Method ARIANA RIVAS MD [address] [place] [address] 01-09-2023 00:19-0400 Mean blood pressure 76 mm[Hg] ARIANA RIVAS MD [address] [place] [address] 01-09-2023 00:19-0400 Reason For Taking VItal Signs ARIANA RIVAS MD [address] [place] [address] 01-08-2023 19:19-0400 Heart rate 93 /min ARIANA RIVAS MD [address] [place] [address] 01-08-2023 18:40-0400 Blood Pressure Cuff Size ARIANA RIVAS MD [address] [place] [address] 01-08-2023 18:40-0400 Blood Pressure Location ARIANA RIVAS MD [address] [place] [address] 01-08-2023 18:40-0400 Blood Pressure Method ARIANA RIVAS MD [facility] 01-08-2023 14:33-0400 Blood Pressure Cuff Size ARIANA RIVAS MD [address] 01-08-2023 10:45-0400 Blood Pressure Cuff Size ARIANA RIVAS MD [address] 01-08-2023 05:02-0400 Mean blood pressure 85 mm[Hg] ARIANA RIVAS MD [facility] 01-06-2023 14:00-0400 Diastolic blood pressure 86 mm[Hg] Dr. Nehemias Arizmendi Work Phone: [facility] 01-06-2023 14:00-0400 Heart rate 100 /min Dr. Nehemias Arizmendi Work Phone: [facility] 01-06-2023 14:00-0400 Respiratory rate 24 /min Dr. Nehemias Arizmendi Work Phone: [facility] 01-06-2023 14:00-0400 SaO2% (BldA) [Mass fraction] 95 % Dr. Nehemias Arizmendi Work Phone: [facility] 01-06-2023 14:00-0400 Systolic blood pressure 139 mm[Hg] Dr. Nehemias Arizmendi Work Phone: [facility] 01-06-2023 06:00-0400 Body height 160 cm ARIANA RIVAS MD [facility] 01-06-2023 06:00-0400 Body weight 98.7 kg ARIANA RIVAS MD [facility] 01-06-2023 06:00-0400 Body weight 38.55 kg/m2 ARIANA RIVAS MD [facility] 01-06-2023 00:54-0400 Body temperature 97.8 [degF] Dr. Nehemias Arizmendi Work Phone: [facility] 01-06-2023 00:00-0400 Inhaled oxygen flow rate 4 L/min Dr. Nehemias Arizmendi Work Phone: [facility] 01-05-2023 15:04-0400 Body mass index (BMI) [Ratio] 37.7 kg/m2 Dr. Nehemias Arizmendi Work Phone: [facility] 01-05-2023 15:04-0400 Body weight 96.[address] Nehemias Arizmendi Work Phone: [facility] 01-05-2023 14:49-0400 Body height 160.[address] Nehemias Arizmendi Work Phone: [facility] 01-03-2023 12:38-0400 Body temperature 97.8 [degF] Dr. Nehemias Arizmendi Work Phone: [facility] 01-03-2023 12:38-0400 Diastolic blood pressure 78 mm[Hg] Dr. Nehemias Arizmendi Work Phone: 0(753)043-425675 [place] [address] 01-03-2023 12:38-0400 Heart rate 64 /min Dr. Nehemias Arizmendi Work Phone: [facility] 01-03-2023 12:38-0400 Respiratory rate 14 /min Dr. Nehemias Arizmendi Work Phone: [facility] 01-03-2023 12:38-0400 SaO2% (BldA) [Mass fraction] 92 % Dr. Nehemias Arizmendi Work Phone: [facility] 01-03-2023 12:38-0400 Systolic blood pressure 110 mm[Hg] Dr. Nehemias Arizmendi Work Phone: [facility] 01-03-2023 12:23-0400 Inhaled oxygen flow rate 2 L/min Dr. Nehemias Arizmendi Work Phone: [facility] 01-03-2023 11:24-0400 Body height 160.[address] Nehemias Arizmendi Work Phone: [facility] 01-03-2023 11:24-0400 Body mass index (BMI) [Ratio] 36.8 kg/m2 Dr. eNhemias Arizmendi Work Phone: [facility] 01-03-2023 11:24-0400 Body weight 94.[address] Nehemias Arizmendi Work Phone: [facility] 11-16-2022 14:51-0400 Body mass index (BMI) [Ratio] 36.2 kg/m2 Dr. Nehemias Arizmendi Work Phone: [facility] 11-16-2022 14:51-0400 Body weight 92.[address] Nehemias Arizmendi Work Phone: [facility] 11-16-2022 14:51-0400 Diastolic blood pressure 83 mm[Hg] Dr. Nehemias Arizmendi Work Phone: [facility] 11-16-2022 14:51-0400 Heart rate 89 /min Dr. Nehemias Arizmendi Work Phone: [facility] 11-16-2022 14:51-0400 Respiratory rate 16 /min Dr. Nehemias Arizmendi Work Phone: [facility] 11-16-2022 14:51-0400 Systolic blood pressure 143 mm[Hg] Dr. Nehemias Arizmendi Work Phone: [facility] 09-16-2022 09:53-0400 Body height 160.[address] Nehemias Arizmendi Work Phone: [facility] 09-16-2022 09:53-0400 Body mass index (BMI) [Ratio] 38.5 kg/m2 Dr. Nehemias Arizmendi Work Phone: [facility] 09-16-2022 09:53-0400 Body temperature 98.6 [degF] Dr. Nehemias Arizmendi Work Phone: [facility] 09-16-2022 09:53-0400 Body weight 98.[address] Nehemias Arizmendi Work Phone: [facility] 09-16-2022 09:53-0400 Diastolic blood pressure 76 mm[Hg] Dr. Nehemias Arizmendi Work Phone: [facility] 09-16-2022 09:53-0400 Heart rate 90 /min Dr. Nehemias Arizmendi Work Phone: [facility] 09-16-2022 09:53-0400 Respiratory rate 17 /min Dr. Nehemias Arizmendi Work Phone: [facility] 09-16-2022 09:53-0400 SaO2% (BldA) [Mass fraction] 94 % Dr. Nehemias Arizmendi Work Phone: [facility] 09-16-2022 09:53-0400 Systolic blood pressure 138 mm[Hg] Dr. Nehemias Arizmendi Work Phone: [facility] 05-11-2022 15:04-0500 Body height 160.[address] Nehemias Arizmendi Work Phone: [facility] 05-11-2022 15:04-0500 Body mass index (BMI) [Ratio] 37.2 kg/m2 Dr. Nehemias Arizmendi Work Phone: [facility] 05-11-2022 15:04-0500 Body weight 95.[address] Nehemias Arizmendi Work Phone: [facility] 05-11-2022 15:04-0500 Diastolic blood pressure 82 mm[Hg] Dr. Nehemias Arizmendi Work Phone: [facility] 05-11-2022 15:04-0500 Heart rate 90 /min Dr. Nehemias Arizmendi Work Phone: [facility] 05-11-2022 15:04-0500 Respiratory rate 20 /min Dr. Nehemias Arizmendi Work Phone: [facility] 05-11-2022 15:04-0500 SaO2% (BldA) [Mass fraction] 96 % Dr. Nehemias Arizmendi Work Phone: [facility] 05-11-2022 15:04-0500 Systolic blood pressure 135 mm[Hg] Dr. Nehemias Arizmendi Work Phone: [facility] 04-15-2022 15:20-0400 Body temperature 98.7 [degF] Dr. Nehemias Arizmendi Work Phone: [facility] Work Phone: 04-15-2022 15:20-0400 Diastolic blood pressure 67 mm[Hg] Dr. Nehemias Arizmendi Work Phone: [facility] Work Phone: 04-15-2022 15:20-0400 Heart rate 85 /min Dr. Nehemias Arizmendi Work Phone: [facility] Work Phone: 04-15-2022 15:20-0400 Respiratory rate 16 /min Dr. Nehemias Arizmendi Work Phone: [facility] Work Phone: 04-15-2022 15:20-0400 SaO2% (BldA) [Mass fraction] 93 % Dr. Nehemias Arizmendi Work Phone: [facility] Work Phone: 04-15-2022 15:20-0400 Systolic blood pressure 126 mm[Hg] Dr. Nehemias Arizmendi Work Phone: [facility] Work Phone: 04-15-2022 14:25-0400 Inhaled oxygen flow rate 2 L/min Dr. Nehemias Arizmendi Work Phone: [facility] Work Phone: 04-15-2022 13:33-0400 Body height 160.[address] Nehemias Arizmendi Work Phone: [facility] Work Phone: 04-15-2022 13:33-0400 Body mass index (BMI) [Ratio] 36.1 kg/m2 Dr. Nehemias Arizmendi Work Phone: [facility] Work Phone: 04-15-2022 13:33-0400 Body weight 92.[address] Nehemias Arizmendi Work Phone: [facility] Work Phone: 04-15-2022 06:29-0400 Body height 160.[address] Nehemias Arizmendi Work Phone: [facility] Work Phone: 04-15-2022 06:29-0400 Body mass index (BMI) [Ratio] 36.1 kg/m2 Dr. Nehemias Arizmendi Work Phone: [facility] Work Phone: 04-15-2022 06:29-0400 Body temperature 97.8 [degF] Dr. Nehemias Arizmendi Work Phone: [facility] Work Phone: 04-15-2022 06:29-0400 Body weight 92.[address] Nehemias Arizmendi Work Phone: [facility] Work Phone: 04-15-2022 06:29-0400 Diastolic blood pressure 65 mm[Hg] Dr. Nehemias Arizmendi Work Phone: [facility] Work Phone: 04-15-2022 06:29-0400 Heart rate 78 /min Dr. Nehemias Arizmendi Work Phone: [facility] Work Phone: 04-15-2022 06:29-0400 Respiratory rate 16 /min Dr. Nehemias Arizmendi Work Phone: [facility] Work Phone: 04-15-2022 06:29-0400 SaO2% (BldA) [Mass fraction] 93 % Dr. Nehemias Arizmendi Work Phone: [facility] Work Phone: 04-15-2022 06:29-0400 Systolic blood pressure 104 mm[Hg] Dr. Nehemias Arizmendi Work Phone: [facility] Work Phone: 03-24-2022 07:39-0400 Body height 152.[address] Nehemias Arizmendi Work Phone: [facility] Work Phone: 03-24-2022 07:39-0400 Body weight 90.[address] Nehemias Arizmendi Work Phone: [facility] Work Phone: 02-25-2022 13:35-0400 Diastolic blood pressure 64 mm[Hg] Dr. Nehemias Arizmendi Work Phone: [facility] Work Phone: 02-25-2022 13:35-0400 Heart rate 72 /min Dr. Nehemias Arizmendi Work Phone: [facility] Work Phone: 02-25-2022 13:35-0400 Respiratory rate 14 /min Dr. Nehemias Arizmendi Work Phone: [facility] Work Phone: 02-25-2022 13:35-0400 SaO2% (BldA) [Mass fraction] 97 % Dr. Nehemias Arizmendi Work Phone: [facility] Work Phone: 02-25-2022 13:35-0400 Systolic blood pressure 104 mm[Hg] Dr. Nehemias Arizmendi Work Phone: [facility] Work Phone: 02-25-2022 13:19-0400 Body height 152.[address] Nehemias Arizmendi Work Phone: [facility] Work Phone: 02-25-2022 13:19-0400 Body mass index (BMI) [Ratio] 39 kg/m2 Dr. Nehemias Arizmendi Work Phone: [facility] Work Phone: 02-25-2022 13:19-0400 Body weight 90.[address] Nehemias Arizmendi Work Phone: [facility] Work Phone: 02-12-2022 07:34-0400 Body mass index (BMI) [Ratio] 39 kg/m2 Dr. Nehemias Arizmendi Work Phone: [facility] Work Phone: 02-09-2022 15:09-0400 Body mass index (BMI) [Ratio] 35.4 kg/m2 Dr. Nehemias Arizmendi Work Phone: [facility] Work Phone: 02-09-2022 15:09-0400 Body weight 90.[address] Nehemias Arizmendi Work Phone: [facility] Work Phone: 02-09-2022 15:09-0400 Diastolic blood pressure 74 mm[Hg] Dr. Nehemias Arizmendi Work Phone: [facility] Work Phone: 02-09-2022 15:09-0400 Heart rate 94 /min Dr. Nehemias Arizmendi Work Phone: [facility] Work Phone: 02-09-2022 15:09-0400 Respiratory rate 18 /min Dr. Nehemias Arizmendi Work Phone: [facility] Work Phone: 02-09-2022 15:09-0400 SaO2% (BldA) [Mass fraction] 96 % Dr. Nehemias Arizmendi Work Phone: [facility] Work Phone: 02-09-2022 15:09-0400 Systolic blood pressure 133 mm[Hg] Dr. Nehemias Arizmendi Work Phone: [facility] Work Phone: 02-09-2022 14:02-0400 Body mass index (BMI) [Ratio] 35.5 kg/m2 Dr. Nehemias Arizmendi Work Phone: [facility] Work Phone: 02-09-2022 14:02-0400 Body temperature 97.6 [degF] Dr. Nehemias Arizmendi Work Phone: [facility] Work Phone: 02-09-2022 14:02-0400 Body weight 90.[address] Nehemias Arizmendi Work Phone: [facility] Work Phone: 02-09-2022 14:02-0400 Diastolic blood pressure 78 mm[Hg] Dr. Nehemias Arizmendi Work Phone: [facility] Work Phone: 02-09-2022 14:02-0400 Heart rate 103 /min Dr. Nehemias Arizmendi Work Phone: [facility] Work Phone: 02-09-2022 14:02-0400 Respiratory rate 17 /min Dr. Nehemias Arizmendi Work Phone: [facility] Work Phone: 02-09-2022 14:02-0400 SaO2% (BldA) [Mass fraction] 98 % Dr. Nehemias Arizmendi Work Phone: [facility] Work Phone: 02-09-2022 14:02-0400 Systolic blood pressure 126 mm[Hg] Dr. Nehemias Arizmendi Work Phone: [facility] Work Phone: 01-01-2022 14:29-0400 Body height 160.[address] Nehemias Arizmendi Work Phone: [facility] Work Phone: 01-01-2022 14:29-0400 Body mass index (BMI) [Ratio] 35.5 kg/m2 Dr. Nehemias Arizmendi Work Phone: [facility] Work Phone: 01-01-2022 14:29-0400 Body weight 90.[address] Nehemias Arizmendi Work Phone: [facility] Work Phone: 01-01-2022 14:29-0400 Diastolic blood pressure 76 mm[Hg] Dr. Nehemias Arizmendi Work Phone: [facility] Work Phone: 01-01-2022 14:29-0400 Heart rate 84 /min Dr. Nehemias Arizmendi Work Phone: [facility] Work Phone: 01-01-2022 14:29-0400 Respiratory rate 18 /min Dr. Nehemias Arizmendi Work Phone: [facility] Work Phone: 01-01-2022 14:29-0400 Systolic blood pressure 150 mm[Hg] Dr. Nehemias Arizmendi Work Phone: [facility] Work Phone: Encounters Encounter Date Encounter Type Care Provider Facility Start: 01-14-2025 Evaluation and management of inpatient Dr. Bharathi Robles DO -Intensive Care Unit Work Phone: Start: 01-14-2025 End: 01-14-[address] Nehemias Arizmendi MD Work Phone: [facility] Start: 01-14-2025 End: 01-14-2025 Patient encounter procedure Yrn PEIRCE -[facility] Work Phone: Start: 11-27-2024 End: 11-27-[address] Nehemias Arizmendi MD Work Phone: [facility] Work Phone: Start: 11-27-2024 End: 11-27-[address] Nehemias Arizmendi MD -[facility] [place] Work Phone: Start: 11-27-2024 End: 11-27-2024 ambulatory Nehemias Arizmendi Facility:[facility] Start: 11-21-2024 End: 11-21-[address] Nehemias Arizmendi MD Work Phone: [facility] Work Phone: Start: 11-21-2024 End: 11-21-[address] Diana Ramos MD -[facility] [place] Work Phone: Start: 11-21-2024 End: 11-21-2024 ambulatory Diana Ramos Facility:[facility] Start: 10-23-2024 Non-patient / Non-visit Dr. Evans [facility] Work Phone: Start: 10-22-2024 Non-patient / Non-visit Dr. Sy Higgins [facility] Work Phone: Start: 10-21-2024 Non-patient / Non-visit Dr. Daksha Robles [facility] Work Phone: Start: 10-20-2024 Non-patient / Non-visit Dr. Sy Higgins [facility] Work Phone: Start: 10-20-2024 Non-patient / Non-visit Thelma Parrish [facility] Start: 10-19-2024 Non-patient / Non-visit Thelma Parrish [facility] Start: 10-19-2024 Non-patient / Non-visit Dr. Sy Higgins [facility] Work Phone: Start: 10-19-2024 ambulatory Bhaarthi Rivera ty:[facility] Start: 10-19-2024 Non-patient / Non-visit Dr. Dre fajardo MD -[facility] Start: 10-18-2024 ambulatory Leobardo Malik ility:[facility] Start: 10-18-2024 End: 10-23-2024 Evaluation and management of inpatient Dr. Bharathi Robles DO [facility] Work Phone: Start: 08-22-2024 End: 08-22-2024 ambulatory Dr. Nehemias Arizmendi MD Work Phone: [facility] Work Phone: Start: 08-22-2024 End: 08-22-[address] Diana Ramos MD -Laboratory, [facility] Start: 08-22-2024 End: 08-22-2024 [facility]ulatory [facility] Start: 05-29-2024 End: 05-29-[address] Diana Ramos MD -Laboratory, [facility] Start: 05-29-2024 End: 05-29-2024 ambulatory [facility] Facility:[facility] Start: 03-16-2024 ambulatory Teo Coto Facility :[facility] Start: 03-10-2024 End: 03-10-2024 ambulatory [facility] Facility:[facility] Start: 01-31-2024 ambulatory Leobardo Soto Fac ility:[facility] Start: 01-28-2024 ambulatory Leobardo Soto Fac ility:[facility] Start: 01-28-2024 End: 01-31-2024 Evaluation and management of inpatient Leobardo Soto Facility:[facility] Start: 12-16-2023 End: 12-16-2023 ambulatory [facility] Facility:[facility] Start: 09-23-2023 End: 09-23-2023 ambulatory [facility] Work Phone: Start: 09-23-2023 End: 09-23-2023 Patient encounter procedure [facility] Start: 08-03-2023 End: 08-03-2023 Patient encounter procedure RADHAY WO ID REFERRING [facility] Start: 06-30-2023 End: 06-30-2023 ambulatory [facility] Work Phone: Start: 06-30-2023 End: 06-30-2023 Patient encounter procedure [facility] Start: 05-17-2023 End: 05-17-2023 ambulatory [facility] Work Phone: Start: 05-17-2023 End: 05-17-2023 Patient encounter procedure [facility] Work Phone: Start: 03-30-2023 End: 03-30-2023 Patient encounter procedure [facility] Start: 01-11-2023 End: 01-11-[address] Nehemias Arizmendi Work Phone: [facility] Work Phone: Start: 01-11-2023 End: 01-11-[address] Nehemias Arizmendi Work Phone: [facility] Work Phone: Start: 01-06-2023 End: 01-09-2023 Evaluation and management of inpatient ARIANA RIVAS MD Facility:[facility] Start: 01-06-2023 End: 01-09-2023 Evaluation and management of inpatient ARIANA RIVAS MD [facility] Start: 01-05-2023 End: 01-06-2023 Emergency department patient visit Dr. [facility]hemias [facility]endi [facility] Start: 01-03-2023 End: 01-03-2023 Emergency department patient visit Dr. Nehemias Arizmendi [facility] Start: 01-01-2023 End: 01-01-[address] Nehemias Arizmendi Work Phone: [facility] Start: 11-16-2022 End: 11-16-[address] Nehemias Arizmendi Work Phone: [facility] Work Phone: Start: 10-27-2022 End: 10-27-[address] Nehemias Arizmendi Work Phone: [facility] Work Phone: Start: 10-27-2022 End: 10-27-[address] Nehemias Arizmendi Work Phone: [facility] Start: 09-16-2022 End: 09-16-[address] Nehemias Arizmendi Work Phone: [facility] Work Phone: Start: 09-16-2022 End: 09-16-[address] Nehemias Arizmendi Work Phone: [facility] Start: 09-16-2022 End: 09-16-[address] Nehemias Arizmendi Work Phone: [facility] Start: 08-10-2022 End: 08-10-[address] Nehemias Arizmendi Work Phone: [facility] Work Phone: Start: 08-10-2022 End: 08-10-[address] Nehemias Arizmendi Work Phone: [facility] Start: 08-03-2022 End: 08-03-[address] Nehemias Arizmendi Work Phone: [facility] Start: 06-17-2022 End: 06-17-[address] Nehemias Arizmendi Work Phone: [facility] Work Phone: Start: 06-17-2022 End: 06-17-[address] Nehemias Arizmendi Work Phone: [facility] Start: 05-11-2022 End: 05-11-[address] Nehemias Arizmendi Work Phone: [facility] Work Phone: Start: 05-11-2022 End: 05-11-[address] Nehemias Arizmendi Work Phone: [facility] Start: 04-28-2022 End: 04-28-[address] Nehemias Arizmendi Work Phone: [facility] Work Phone: Start: 04-28-2022 End: 04-28-[address] Nehemias Arizmendi Work Phone: [facility] Start: 04-15-2022 End: 04-15-2022 Evaluation and management of inpatient Dr. Nehemias Arizmendi Work Phone: [facility]-Medical Surgical 3 Start: 04-15-2022 End: 04-15-[address] Nehemias Arizmendi Work Phone: [facility] Work Phone: Start: 04-15-2022 Non-patient / Non-visit Dr. Sanaz Arizmendi Work Phone: [facility] Start: 04-15-2022 Admission to [facility] [place] Dr. 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 Nehemias Arizmendi Work Phone: [facility] Work Phone: Start: 04-11-2022 End: 04-11-[address] Nehemias Arizmendi Work Phone: [facility]-Laboratory Start: 04-02-2022 End: 04-02-[address] Nehemias Arizmendi Work Phone: [facility] Work Phone: Start: 04-02-2022 End: 04-02-[address] Nehemias Arizmendi Work Phone: [facility]-Laboratory, Specimen Start: 03-30-[address] Nehemias flaherty Work Phone: [facility]-Cardiovascula r Services Start: 03-27-2022 End: 03-27-[address] Nehemias Arizmendi Work Phone: [facility] Start: 03-24-2022 End: 03-24-2022 Admission to same day surgery center Dr. 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 Nehemias Arizmendi Work Phone: [facility] Work Phone: Start: 03-17-2022 End: 03-17-[address] Nehemias Arizmendi Work Phone: [facility] Start: 03-12-2022 End: 03-12-[address] Nehemias Arizmendi Work Phone: [facility] Work Phone: Start: 03-12-2022 End: 03-12-[address] Nehemias Arizmendi Work Phone: [facility] Start: 02-25-2022 Non-patient / Non-visit Dr. Sanaz Arizmendi Work Phone: [facility] Start: 02-25-2022 End: 02-25-[address] Nehemias Arizmendi Work Phone: [facility] Work Phone: Start: 02-25-2022 End: 02-25-[address] Nehemias Arizmendi Work Phone: [facility] Start: 02-12-2022 End: 02-12-[address] Nehemias Arizmendi Work Phone: [facility] Start: 02-11-2022 Non-patient / Non-visit Dr. Sanaz Arizmendi Work Phone: [facility] Start: 02-09-2022 End: 02-09-[address] Nehemias Arizmendi Work Phone: [facility] Start: 02-09-2022 End: 02-09-[address] Nehemias Arizmendi Work Phone: [facility] Start: 02-06-2022 Non-patient / Non-visit Dr. Sanaz Arizmendi Work Phone: [facility] Start: 02-06-2022 Non-patient / Non-visit Dr. Sanaz Arizmendi Work Phone: [facility] Start: 02-06-2022 End: 02-06-[address] Nehemias Arizmendi Work Phone: [facility]-Cardiovas[facility] Services Start: 02-04-2022 End: 02-04-[address] Nehemias Arizmendi Work Phone: [facility] Work Phone: Start: 02-04-2022 End: 02-04-[address] Nehemias Arizmendi Work Phone: [facility] Start: 01-23-2022 End: 01-23-[address] Nehemias Arizmendi Work Phone: [facility] Start: 01-16-2022 End: 01-16-[address] Nehemias Arizmendi Work Phone: [facility]-Pulmonary Services/Neurology Start: 01-01-2022 End: 01-01-[address] Nehemias Arizmendi Work Phone: [facility] Start: 12-16-2021 Non-patient / Non-visit Dr. Sanaz Arizmendi Work Phone: [facility] Start: 10-17-2021 End: 10-17-[address] Nehemias Arizmendi Work Phone: [facility] Start: 10-03-2021 Non-patient / Non-visit Dr. Sanaz Arizmendi Work Phone: [facility] Start: 10-03-2021 End: 10-03-[address] Nehemias Arizmendi [facility] Start: 08-05-2021 End: 08-05-[address] Nehemias Arizmendi Work Phone: [facility]-Laboratory, [facility] Start: 06-13-[address] Nehemias Arizmendi Work Phone: [facility]-Radiology, [place] Procedures Date Procedure Procedure Detail Performing Clinician Start: 01-14-2025 Computed tomography of abdomen and pelvis with intravenous contrast Dr. Nehemias Arizmendi MD Work Phone: Start: 01-14-2025 CT angiography of chest with contrast Dr. Nehemias Arizmendi MD Work Phone: Start: 01-14-2025 Carbon dioxide measurement, partial pressure Dr. Nehemias Arizmendi MD Work Phone: Start: 01-14-2025 Gases blood o2 saturation only direct jasiel Dr. Nehemias Arizmendi MD Work Phone: Start: 01-14-2025 Measurement of partial pressure of oxygen in blood Dr. Nehemias Arizmendi MD Work Phone: Start: 01-14-[address] Nehemias Arizmendi MD Work Phone: Start: 01-14-2025 Plain chest X-ray Dr. Nehemias Arizmendi MD Work Phone: Start: 01-14-2025 Urnls dip stick/tablet reagent auto microscopy Dr. Nehemias Arizmendi MD Work Phone: Start: 01-14-[address] Nehemias Arizmendi MD Work Phone: Start: 01-14-2025 Flow cytometry cell surf marker techl only 1st Dr. Nehemias Arizmendi MD Work Phone: Start: 01-14-2025 Legionella pneumophila antigen assay Dr. Nehemias Arizmendi MD Work Phone: Start: 01-14-2025 End: 01-14-2025 [address]reptococcus [address] antigen assay Dr. Nehemias Arizmendi MD Work Phone: Start: 10-23-[address] Nehemias [...] or Pulmonary Embolism (PE)CRITICAL VALUE CALLED TO [id number] 2018 Alexey Saenz.RESULTS READ BACK BY SAME. [...] Treatment Date Care Activity Detail Author Start: 01-15-2025 Gas panel - Arterial blood [facility] Start: 01-14-2025 Respiratory pathogens DNA and RNA panel - Respiratory specimen by JADEN with probe detection [facility] Start: 01-14-2025 Admission procedure [facility] Start: 01-14-2025 End: 01-14-2025 Hospital admission, emergency, from emergency room, medical nature [facility] Start: 01-14-2025 [facility] Start: 01-14-2025 End: 01-14-2025 [facility] Start: 01-14-2025 Bacteria identified in Blood by Culture Blood Culture [facility] Start: 01-14-2025 Bacteria identified in Urine by Culture Urine Culture [facility] Start: 01-14-2025 Evaluation of diagnostic study results [facility] Start: 10-23-2024 Patient discharge [facility] Start: 10-21-2024 Continuous pulse oximetry [facility] Start: 10-21-2024 Dual pressure spontaneous ventilation support [facility] Start: 10-21-2024 Physiotherapy of chest [facility] Start: 10-20-2024 [facility] Start: 10-20-2024 Inhalation therapy procedure [facility] Start: 10-19-2024 End: 10-19-2024 [facility] Start: 10-19-2024 Care regimes management [facility] Start: 10-19-2024 Notification of physician [facility] Start: 10-19-2024 Referral to vascular surgeon [facility] Start: 10-19-2024 Gas panel - Arterial blood [facility] Start: 10-19-2024 Oxygen therapy [facility] Start: 10-19-2024 Assessment of risk of venous thromboembolism [facility] Start: 10-19-2024 Insertion of catheter into peripheral vein [facility] Start: 10-19-2024 End: 10-19-2024 Measuring intake and output [facility] Start: 10-19-2024 Providing care according to standard [facility] Start: 10-19-2024 [facility] Start: 10-19-2024 End: 10-19-2024 Following clinical pathway protocol [facility] Start: 10-18-2024 Admission procedure [facility] Start: 10-18-2024 Hospital admission, emergency, from emergency room, medical nature [facility] Start: 10-18-2024 [facility] Start: 01-05-2023 [facility] Start: 04-15-2022 Patient discharge [facility] Work Phone: Start: 04-15-2022 Anes esoph thyrd larynx trach & lymph neck 1yr ANESTH NECK ORGAN 1YR/> [facility] Work Phone: Start: 04-15-2022 Thyroidectomy total/complete REMOVAL OF THYROID [facility] Work Phone: Start: 04-15-2022 Application of intermittent pneumatic compression device [facility] Work Phone: Start: 04-15-2022 Following clinical pathway protocol [facility] Work Phone: Start: 04-15-2022 Ambulation without limitation [facility] Work Phone: Start: 04-15-2022 Catheterization of vein [facility] Work Phone: Start: 04-15-2022 Incentive spirometry [facility] Work Phone: Start: 04-15-2022 Measuring intake and output [facility] Work Phone: Start: 04-15-2022 Provision of activity privileges [facility] Work Phone: Start: 04-15-2022 Vital signs measurements [facility] Work Phone: Start: 04-15-2022 [facility] Work Phone: Start: 04-15-2022 Admission procedure [facility] Work Phone: Start: 02-25-2022 Following clinical pathway protocol [facility] Work Phone: CTA Heart and [place] ry arteries W contrast IV [facility] Work Phone: Folate [Mass/volume] in Serum or Plasma [facility] [place] and lambda lig ht chains [facility] NM Heart Views W str ess and W radionuclide IV [facility] Work Phone: Patient Education ED Pneumonia (Adult) [facility] Work Phone: Patient referral [facility] Work Phone: Thiamine measurement [facility] Thyroid stimulating hormone measurement [facility] Work Phone: Urinalysis complete panel - Urine [facility] Urine culture [facility] US Heart [facility] Work Phone: Vitamin B12 measurement [facility] Payers Date Payer Category Payer Unknown [id number] 2023 Self-pay [id number] 2023 Unknown [id number] 2023 Private Health Insurance [id number] 2015 Unknown [id number] 1965 Unknown [id number] Unknown [id number] Unknown [id number] Unknown COMMERCIAL OTHER [id number] Unknown [id number] 2.840.1.115473.3.579.2.462 Unknown [id number] .840.1.087783.3.579.2.462 Unknown [id number] .840.1.521804.3.579.2.462 Unknown [id number] .840.1.735044.3.579.2.462 Unknown [id number] .840.1.777366.3.579.2.462 Unknown [id number] 2.840.1.245353.3.579.2.462 Unknown [id number] 2.840.1.428036.3.579.2.462 Unknown [id number] .840.1.380938.3.579.2.462 Unknown [id number] 2.16.840.1.551796.3.579.2.462 Unknown [id number] 2.16.840.1.156817.3.579.2.462 Unknown [id number] 2.16.840.1.666057.3.579.2.462 Unknown [id number] 2.16.840.1.447272.3.579.2.462 Unknown [id number] 2.16.840.1.651104.3.579.2.462 Unknown [id number] 2.16.840.1.939968.3.579.2.462 Unknown [id number] 2.16.840.1.597573.3.579.2.462 Unknown [id number] 2.16.840.1.564019.3.579.2.462 Unknown [id number] 2.16.840.1.700562.3.579.2.462 Unknown [id number] 2.16.840.1.616321.3.579.2.462 Unknown [id number] 2.16.840.1.492117.3.579.2.462 Unknown [id number] 2.16.840.1.772165.3.579.2.462 Unknown [id number] 2.16.840.1.302392.3.579.2.462 Unknown [id number] 2.840.1.105242.3.579.2.462 Unknown [id number] 2.16840.1.538193.3.579.2.462 Unknown [id number] 2.16840.1.568396.3.579.2.462 Unknown [id number] 2.16840.1.503704.3.579.2.462 Unknown [id number] 2.16.840.1.625146.3.579.2.462 Social History Date Type Detail Facility Start: 02-07-2021 End: 01-05-2023 Tobacco smoking status NHIS Unknown if ever smoked [facility] Start: 1965 Sex Assigned At Female [place] Start: 01-06-2023 Tobacco smoking status Heavy t obacco smoker (finding) [facility] Start: 01-28-2024 End: 01-14-2025 Tobacco smoking status NHIS Smokes tobacco daily (finding) [facility] Start: 09-05-2024 End: 10-19-2024 Sex Female (finding) [facility] Medical Equipment Procedure Code Equipment Code Equipment Original Text Equipment Identifier Dates Thyroidectomy Plant polysaccha ride haemostatic agent, bioabsorbable ()[id number] FDA Start: 04-15-2022 Thyroidectomy Ligation clip, metallic ( )[id number] FDA Start: 04-15-2022 Thyroidectomy Ligation clip, metallic ( )[id number] FDA Start: 04-15-2022 Goals Date Patient Goal Desired Activity /State Functional Status Date Assessment Result Facility 10-23-2024 Functional status Ambulates;Lars r;Bathroom Privilege [facility] Work Phone: 01-09-2023 Functional Status Room check performed [facility] 01-09-2023 Functional Status [facility] 01-09-2023 Functional Status Assistive Device None [facility] 01-08-2023 Functional Status [facility] 01-08-2023 Functional Status [facility] 01-08-2023 Functional Status Bed Bath Independent, S etup [facility] 01-06-2023 Functional Status [facility] 01-06-2023 Functional Status Skin moisturiz er, Shampoo cap, CHG bath [facility] 04-15-2022 Functional status Up ad damien [facility] Work Phone: Mental Status Date Assessment Result Facility 01-14-2025 Cognitive function Level Of Cons ciousness Appropriate;Follows Commands;Drowsy [facility] Work Phone: 10-23-2024 Cognitive function Voice/Name [facility] Work Phone: 10-18-2024 Cognitive function Level Of Cons ciousness Awake;Alert;Appropriate;Follow s Commands [facility] Work Phone: 01-09-2023 Mental Status Orientation Oriented x 4 [facility] 01-09-2023 Mental Status [facility] 01-09-2023 Mental Status [facility] 01-08-2023 Mental Status Orientation Asse ssment Oriented x [address] [facility] 01-08-2023 Mental Status [facility] 01-07-2023 Mental Status [facility] 01-03-2023 Cognitive function Voice/Name [facility] Work Phone: 04-15-2022 Cognitive function Level Of Cons ciousness Awake;Alert;Appropriate [facility] Work Phone: 04-15-2022 Cognitive function Voice/Name [facility] Work Phone: 04-15-2022 Cognitive function Voice/Name [facility] Work Phone: 02-25-2022 Cognitive function Voice/Name [facility] Work Phone: Clinical Notes 01-06-2023 to 01-15-2025 Note Date & Type Note Facility 01-15-2025 Discharge summary Note Date/Time January 14, 2025 11:36pm [facility] Medical Records Department [address] [place] [address] Emergency Department Summary 01/14/25 MR#: [id number] Acct: [id number] Name: CAITLIN GERMAIN Rep #:[id number] : 1965 59 From: Alex Smith MD PCP: Dr. Nehemias Arizmendi MD Status:REG E R Location: ED ADDENDUM by Dr. Jeremiah Valenzuela MD on 01/14/25 at [address] results of the CTA chest which were unremarkable and the CT abdomen/pelvis which showed partial striated nephrogram on the right, and I spoke to the radiologist about this. He states this could be indicative of pyelonephritis which the patient is being treated for right now, and the emergency physician suspected urosepsis. Also incidentally found were significant atheromatous plaques and ulcerations in the abdominal aorta without any acute vascular emergency, but radiology mentioned this puts her at risk for events such as dissection or throwing clots. She is currently anticoagulated and on high-dose statin. This was discussed with hospitalist in addition to theradiologist. 01/14/25 [id number]<Electronically signed by Jeremiah Valenzuela MD> Cosigner Signature (if applicable): cc: Dr. Nehemias Arizmendi MD ~* Signed HPI History of Present Illness Chief Complaint: Fever Informant: patient Onset/Context/Timing Onset: Today and Yesterday Context: Gradual Onset Timing: Continuous Current Severity: Severe Maximum Severity: Severe Narrative Narrative: 59-year-old female history diabetes, DVT and PE on Eliquis. Today was seen at [facility] urgent care diagnosed with UTI placed on Macrobid. At home she got pale certainly shortness of breath fever and chills and they brought her to [facility]dep[facility] and she had an episode of vomiting x 1. She is a known diabetic her blood sugar is 153. Prior similar symptoms: No Recent Ill[facility] Medical History Morbid obesity with BMI of 40.0-44.9, adult Renal cyst Adrenal nodule Loss of hearing Wears glasses Wears dentures History of steroid therapy Thyroid disease DVT (deep venous thrombosis) High cholesterol Back pain Vertigo Heartburn Smoker Shortness of breath on exertion Leg cramps Hypertension Cardiology follow-up encounter History of Holter monitoring History of echocardiogram History of stress test Lightheadedness Near syncope Mixed hyperlipidemia History of left heart catheterization (LHC) (~03/24/22) Abnormal cardiac CT angiography Tachycardia Essential hypertension Kyphosis Rheumatoid arthritis Home Medications ?Medication ?Instructions ?Recorded ?Last Taken ?Type meclizine 25 mg tablet 25 mg PO TID PRN dizziness 0 12/16/21 Unknown History amlodipine 10 mg tablet 10 mg PO DAILY bp 01/01/22 1 History hydroxychloroquine 200 mg tablet 200 mg PO BID ra 01/16 Unknown History losartan 100 mg tablet 100 mg PO DAILY 01/01/22 History metformin 1,000 mg tablet 1,000 mg PO BID dm 11/16/22 Unknown History atorvastatin 20 mg tablet See Rx Instructions .Route 1 07/05/22 Unknown Rx .COMPLEX hld #90 tabs leflunomide 20 mg tablet 20 mg PO DAILY arthritis 08/21 Unknown History dapagliflozin propanediol 10 mg 10 mg PO DAILY 5 Unknown History tablet (Farxiga) apixaban 5 mg tablet (Eliquis) 5 mg PO BID 01/14/25 Un known History famotidine 20 mg tablet 20 mg PO QDAY 01/14/25 Unkno wn History furosemide 20 mg tablet 20 mg PO DAILY 01/14/25 Unkn own History gabapentin 100 mg capsule 100 mg PO TID 01/14/25 Unkno wn History levothyroxine 137 mcg tablet 137 mcg PO DAILY hypothyr oidism 01/14/25 Unknown History tirzepatide 2.5 mg/0.5 mL 2.5 mg subcut QWEEK diabetes 01/14/25 Unknown History subcutaneous pen injector (Mounjaro) Allergy/AdvReac Type Severity Reaction Status Date / Time Sulfa (Sulfonamide Allergy Unknown Hives Verified 01/14/25 09:46 Antibiotics) Family History Sister Breast cancer Hypertension Diabetes Sister Myocardial infarction, Onset Age: 30 Surgical History History of total thyroidectomy History of cardiac catheterization (~02/2022) S/P thyroid biopsy (~02/2022) History of laparoscopic cholecystectomy History of appendectomy Social History Smoking Status: Current every day smoker tobacco type: cigarettes Tobacco: How many years used: 30 second hand exposure: Yes alcohol intake: current alcohol intake frequency: holidays/special occasions only substance use type: does not use caffeine: Yes Type: coffee Number of servings: 3 seatbelt use: always ROS ROS ED ROS Narrative Urinary frequency. Chills. Nausea vomiting x 1. Constitutional Constitutional ED: Reports chills; Denies fever(s) Eyes Eyes: Denies blurry vision ENT ENT ED: Denies ear pain Cardiovascular Cardiovascular: Denies chest pain Respiratory/Chest Respiratory/Chest: Denies cough or dyspnea Gastrointestinal Gastrointestinal: Reports nausea and vomiting; Denies abdominal pain Genitourinary Genitourinary ED: Reports dysuria and urinary frequency Musculoskeletal Musculoskeletal: Denies arthralgias Integumentary Denies abscess Neurologic Neurologic: Denies headache(s) Psychiatric Psychiatric: Denies anxiety Endocrine Endocrinology: Denies cold intolerance Hematologic/Lymphatic Hematologic/Lymphatic: Reports none Allergic/Immunologic Allergic/Immunologic ED: Denies mouth swelling, tongue swelling or urticaria EXAM Physical Exam Narrative Exam Narrative: 59-year-old female vital signs tachycardic 140s. Pulse ox 90% on 2 L hypoxic. She looks ill. She may be septic. She is diaphoretic and clammy. Initial blood pressure 126/75. H EENT exam pupils round react light. Mytrex members. Neck nontender JVD. Lungs clear to auscultation bilaterally. Heart [id number] no murmur. Chest wall ribs nontender. Abdomen soft nontender. No peritoneal signs. Moving all 4 extremities. Normal horn player strength. Normal dorsi plantarflexion. Skin is cool and clammy. Back nontender. Neurologicallyshe is awake alert. Answer questions following commands. Const Vital Signs: 01/14/25 18:23 01/14/25 18:37 01/14/25 19:00 Temperature 97.8 F 98.0 F Temperature Source Temporal Oral Pulse Rate 145 H 115 H Respiratory Rate 22 H 29 H Respiratory Effort Respiratory Pattern Blood Pressure 126/75 H 91/45 L Blood Pressure Mean 92 60 Pulse Ox 90 93 95 Oxygen Delivery Method Nasal Cannula Nasal Cannula Nasal Cannula Oxygen Flow Rate (L/min) 2 2 2 01/14/25 19:00 01/14/25 19:22 01/14/25 19:51 Temperature 99.9 F H Temperature Source Oral Pulse Rate 115 H 112 H Respiratory Rate 34 H 37 H Respiratory Effort Normal Non-Labored Respiratory Pattern Normal Blood Pressure 91/46 L 102/52 L Blood Pressure Mean 61 68 Pulse Ox 95 100 Oxygen Delivery Method Nasal Cannula Nasal Cannula Oxygen Flow Rate (L/min) 2 2 01/14/25 20:15 01/14/25 20:44 01/14/25 20:45 Temperature Temperature Source Pulse Rate 116 H 115 H Respiratory Rate 41 H 39 H Respiratory Effort Respiratory Pattern Blood Pressure 82/53 L Blood Pressure Mean 63 Pulse Ox 94 87 86 Oxygen Delivery Method Nasal Cannula Oxygen Flow Rate (L/min) 2 01/14/25 20:47 01/14/25 20:51 01/14/25 20:51 Temperature 98.6 F Temperature Source Oral Pulse Rate 114 H 109 H 114 H Respiratory Rate 28 H 27 H 33 H Respiratory Effort Respiratory Pattern Blood Pressure 87/53 L 87/53 L Blood Pressure Mean 64 64 Pulse Ox 89 85 95 Oxygen Delivery Method Nasal Cannula Nasal Cannula Oxygen Flow Rate (L/min) 2 3 01/14/25 20:59 01/14/25 20:59 01/14/25 21:00 Temperature Temperature Source Pulse Rate 110 H 113 H Respiratory Rate 24 H 31 H Respiratory Effort Respiratory Pattern Blood Pressure Blood Pressure Mean Pulse Ox 90 94 92 Oxygen Delivery Method Nasal Cannula Nasal Cannula Nasal Cannula Oxygen Flow Rate (L/min) 3 4 4 01/14/25 21:45 01/14/25 21:55 01/14/25 22:00 Temperature 98.6 F 98.3 F 98.9 F Temperature Source Oral Oral Pulse Rate 104 H 101 H Respiratory Rate 23 H 25 H Respiratory Effort Respiratory Pattern Blood Pressure 86/55 L 104/61 Blood Pressure Mean 65 75 Pulse Ox 97 97 Oxygen Delivery Method Nasal Cannula Oxygen Flow Rate (L/min) 4 Positive well nourished and well developed; Negative for cachectic, contracturesor unkempt General Appearance ED: well developed, diaphoretic and pallor; Negative for unkempt, cachectic, contractures, cyanotic or NAD Nutritional Appearance: Negative for cachectic HEENT Reports moist mucous membranes Eyes PERRL and EOMs intact bilaterally Neck no lymphadenopathy, supple and no JVD Chest Wall inspection of chest normal and palpation of chest normal Resp normal respiratory effort and clear to auscultation bilaterally Cardio regular rhythm, S1 normal heart sound, S2 normal heart sound and no murmurs; Negative for regular rate Rate: tachycardic GI normal to inspection, nondistended, normoactive bowel sounds, non-tender, non-distended and no masses Palpation: soft; Negative for tender, guarding or rebound tenderness present Back/Spine no CVA tenderness General Back: Negative for CVA tenderness Cervical Spine: Negative for cervical spine tenderness Thoracic Spine / Upper Back: Negative for thoracic spinal tenderness or paraspinal muscle tenderness Lumbar Spine / Lower Back: Negative for lumbar spinal tenderness Extremity normal to inspection General Extremety ED: Negative for edema or tenderness General Extremity: Negative for edema Neuro oriented x3 and CN's II-XII intact bilaterally Sensorium / Orientation: alert Motor Exam: strength 5/5 throughout Psych mental status grossly normal Appearance: Negative for unkempt Skin no rashes or lesions noted, no wounds and skin turgor normal Skin Narrative: Diaphoretic cool and clammy skin. General Skin Exam: elasticity normal and pallor; Negative for jaundice Lesions: No lesion noted Rashes: No rashes noted Trauma: Negative for abrasion Wounds: Negative for wounds noted MDM MDM MDM Narrative Medical decision making narrative: 59-year-old female concern for sepsis. She is tachycardic and diaphoretic. Recent UTI symptoms. Undergo septic workup with a liter normal saline. Will bestarted on IV antibiotics as soon as we have a source. Repeat exam at 9 PM. Patient remains hypotensive but her abdomen is benign. She does not feel any worse. She has received 2 L of fluid and she is currentlyon her third. Due to the urinary tract infection she will be started on Rocephin IV which has been ordered. Due to the hypoxia I did obtain a CTA of her chest with a abdomen and pelvis. This may all be secondary to UTI and urosepsis. Hospitalist will be paged for admission. Repeat exam patient is resting comfortably at 10:03 PM. Current blood pressuresin the 90s. I reviewed his CTA chest and CT abdomen pelvis. Awaiting formal radiology interpretation. Of the hospitalist on page for admission. Currently patient is being treated for UTI, hypotension and suspected urosepsis. She is awake alert. Abdomen is benign. I spoke to the night hospitalist. Patient will be admitted to PCU. He will follow-up with CT results. History & Record Review Discussion w/independent historian: Patient and Family Additional record(s) reviewed:: Prior inpatient record, Prior outpatient record,Prior ED visit and Prior labs Lab Data Attestation: I reviewed the patient's lab results. Lab results narrative: CBC shows a white count 3.1. H&H 14 and 43. Platelets 156. 63% neutrophils. 16% bands. Chemistries show normal sodium. Elevated anion gap of 18. Normal BUN and creatinine. Lactic acid 2.7. Troponin 18. 2-hour troponin elevated at 192. BNP 265. Urine shows 5-10 red cells. 10-25 white cells. No bacteria. No nitrites. Labs: Laboratory Results - last 24 hr 01/14/25 01/14/25 01/14/25 18:37 18:37 18:37 WBC 3.1 L RBC 5.18 Hgb 14.7 Hct 43.1 MCV 83.2 MCH 28.4 MCHC 34.1 RDW Std Deviation 45.7 H RDW Coeff of Layla 15.1 H Plt Count 156 MPV 9.9 Neut % (Auto) Not Reportable Absolute Neuts (auto) 2.4 Absolute Lymphs (auto) 0.47 L Total Counted 100 Neutrophils % (Manual) 63 Band Neutrophils % 16 H Lymphocytes % (Manual) 15 L Metamyelocytes % 6 H Platelet Estimate ADEQUATE PT INR APTT Sodium 136 Cancelled Potassium 3.9 Cancelled Chloride 101 Carbon Dioxide Anion Gap BUN Creatinine Estim Creat Clear Calc Est GFR (MDRD) Non-Af BUN/Creatinine Ratio Glucose Lactic Acid Calcium Total Bilirubin AST ALT Alkaline Phosphatase Troponin T High Sens Troponin T Hi Sens 2 Hr NT pro BNP II Total Protein Albumin Globulin Albumin/Globulin Ratio Urine Color Urine Clarity Urine pH Ur Specific [place] Urine Protein Urine Glucose (UA) Urine Ketones Urine Occult Blood Urine Nitrite Urine Bilirubin Urine Urobilinogen Ur Leukocyte Esterase Urine RBC Urine WBC Ur Squamous Epith Cells Ur Renal Epithelial Cell Urine Bacteria Urine Mucus 01/14/25 01/14/25 01/14/25 18:37 18:37 18:37 WBC RBC Hgb Hct MCV MCH MCHC RDW Std Deviation RDW Coeff of Layla Plt Count MPV Neut % (Auto) Absolute Neuts (auto) Absolute Lymphs (auto) Total Counted Neutrophils % (Manual) Band Neutrophils % Lymphocytes % (Manual) Metamyelocytes % Platelet Estimate PT INR APTT Sodium Potassium Chloride Cancelled Carbon Dioxide 16.5 L Cancelled Anion Gap 18 H Cancelled BUN 14 Creatinine Estim Creat Clear Calc Est GFR (MDRD) Non-Af BUN/Creatinine Ratio Glucose Lactic Acid Calcium Total Bilirubin AST ALT Alkaline Phosphatase Troponin T High Sens Troponin T Hi Sens 2 Hr NT pro BNP II Total Protein Albumin Globulin Albumin/Globulin Ratio Urine Color Urine Clarity Urine pH Ur Specific [place] Urine Protein Urine Glucose (UA) Urine Ketones Urine Occult Blood Urine Nitrite Urine Bilirubin Urine Urobilinogen Ur Leukocyte Esterase Urine RBC Urine WBC Ur Squamous Epith Cells Ur Renal Epithelial Cell Urine Bacteria Urine Mucus 01/14/25 01/14/25 01/14/25 18:37 18:37 18:37 WBC RBC Hgb Hct MCV MCH MCHC RDW Std Deviation RDW Coeff of Layla Plt Count MPV Neut % (Auto) Absolute Neuts (auto) Absolute Lymphs (auto) Total Counted Neutrophils % (Manual) Band Neutrophils % Lymphocytes % (Manual) Metamyelocytes % Platelet Estimate PT INR APTT Sodium Potassium Chloride Carbon Dioxide Anion Gap BUN Cancelled Creatinine 0.71 Cancelled Estim Creat Clear Calc 87.56 Cancelled Est GFR (MDRD) Non-Af 97 BUN/Creatinine Ratio Glucose Lactic Acid Calcium Total Bilirubin AST ALT Alkaline Phosphatase Troponin T High Sens Troponin T Hi Sens 2 Hr NT pro BNP II Total Protein Albumin Globulin Albumin/Globulin Ratio Urine Color Urine Clarity Urine pH Ur Specific [place] Urine Protein Urine Glucose (UA) Urine Ketones Urine Occult Blood Urine Nitrite Urine Bilirubin Urine Urobilinogen Ur Leukocyte Esterase Urine RBC Urine WBC Ur Squamous Epith Cells Ur Renal Epithelial Cell Urine Bacteria Urine Mucus 01/14/25 01/14/25 01/14/25 18:37 18:37 18:37 WBC RBC Hgb Hct MCV MCH MCHC RDW Std Deviation RDW Coeff of Layla Plt Count MPV Neut % (Auto) Absolute Neuts (auto) Absolute Lymphs (auto) Total Counted Neutrophils % (Manual) Band Neutrophils % Lymphocytes % (Manual) Metamyelocytes % Platelet Estimate PT INR APTT Sodium Potassium Chloride Carbon Dioxide Anion Gap BUN Creatinine Estim Creat Clear Calc Est GFR (MDRD) Non-Af Cancelled BUN/Creatinine Ratio 19.5 Cancelled Glucose 252 H Cancelled Lactic Acid 2.7 H* Calcium 9.6 Total Bilirubin AST ALT Alkaline Phosphatase Troponin T High Sens Troponin T Hi Sens 2 Hr NT pro BNP II Total Protein Albumin Globulin Albumin/Globulin Ratio Urine Color Urine Clarity Urine pH Ur Specific [place] Urine Protein Urine Glucose (UA) Urine Ketones Urine Occult Blood Urine Nitrite Urine Bilirubin Urine Urobilinogen Ur Leukocyte Esterase Urine RBC Urine WBC Ur Squamous Epith Cells Ur Renal Epithelial Cell Urine Bacteria Urine Mucus 01/14/25 01/14/25 01/14/25 18:37 18:37 18:37 WBC RBC Hgb Hct MCV MCH MCHC RDW Std Deviation RDW Coeff of Layla Plt Count MPV Neut % (Auto) Absolute Neuts (auto) Absolute Lymphs (auto) Total Counted Neutrophils % (Manual) Band Neutrophils % Lymphocytes % (Manual) Metamyelocytes % Platelet Estimate PT INR APTT Sodium Potassium Chloride Carbon Dioxide Anion Gap BUN Creatinine Estim Creat Clear Calc Est GFR (MDRD) Non-Af BUN/Creatinine Ratio Glucose Lactic Acid Calcium Cancelled Total Bilirubin 0.54 Cancelled AST 19 Cancelled ALT 16 Alkaline Phosphatase Troponin T High Sens Troponin T Hi Sens 2 Hr NT pro BNP II Total Protein Albumin Globulin Albumin/Globulin Ratio Urine Color Urine Clarity Urine pH Ur Specific [place] Urine Protein Urine Glucose (UA) Urine Ketones Urine Occult Blood Urine Nitrite Urine Bilirubin Urine Urobilinogen Ur Leukocyte Esterase Urine RBC Urine WBC Ur Squamous Epith Cells Ur Renal Epithelial Cell Urine Bacteria Urine Mucus 01/14/25 01/14/25 01/14/25 18:37 18:37 18:37 WBC RBC Hgb Hct MCV MCH MCHC RDW Std Deviation RDW Coeff of Layla Plt Count MPV Neut % (Auto) Absolute Neuts (auto) Absolute Lymphs (auto) Total Counted Neutrophils % (Manual) Band Neutrophils % Lymphocytes % (Manual) Metamyelocytes % Platelet Estimate PT INR APTT Sodium Potassium Chloride Carbon Dioxide Anion Gap BUN Creatinine Estim Creat Clear Calc Est GFR (MDRD) Non-Af BUN/Creatinine Ratio Glucose Lactic Acid Calcium Total Bilirubin AST ALT Cancelled Alkaline Phosphatase 100 Cancelled Troponin T High Sens 18 H D Troponin T Hi Sens 2 Hr NT pro BNP II 265 Total Protein 7.6 Cancelled Albumin 4.1 Globulin Albumin/Globulin Ratio Urine Color Urine Clarity Urine pH Ur Specific [place] Urine Protein Urine Glucose (UA) Urine Ketones Urine Occult Blood Urine Nitrite Urine Bilirubin Urine Urobilinogen Ur Leukocyte Esterase Urine RBC Urine WBC Ur Squamous Epith Cells Ur Renal Epithelial Cell Urine Bacteria Urine Mucus 01/14/25 01/14/25 01/14/25 18:37 18:37 18:37 WBC RBC Hgb Hct MCV MCH MCHC RDW Std Deviation RDW Coeff of Layla Plt Count MPV Neut % (Auto) Absolute Neuts (auto) Absolute Lymphs (auto) Total Counted Neutrophils % (Manual) Band Neutrophils % Lymphocytes % (Manual) Metamyelocytes % Platelet Estimate PT INR APTT Sodium Potassium Chloride Carbon Dioxide Anion Gap BUN Creatinine Estim Creat Clear Calc Est GFR (MDRD) Non-Af BUN/Creatinine Ratio Glucose Lactic Acid Calcium Total Bilirubin AST ALT Alkaline Phosphatase Troponin T High Sens Troponin T Hi Sens 2 Hr NT pro BNP II Total Protein Albumin Cancelled Globulin 3.5 Cancelled Albumin/Globulin Ratio 1.1 Cancelled Urine Color Urine Clarity Urine pH Ur Specific [place] Urine Protein Urine Glucose (UA) Urine Ketones Urine Occult Blood Urine Nitrite Urine Bilirubin Urine Urobilinogen Ur Leukocyte Esterase Urine RBC Urine WBC Ur Squamous Epith Cells Ur Renal Epithelial Cell Urine Bacteria Urine Mucus 01/14/25 01/14/25 01/14/25 19:00 19:09 20:51 WBC RBC Hgb Hct MCV MCH MCHC RDW Std Deviation RDW Coeff of Layla Plt Count MPV Neut % (Auto) Absolute Neuts (auto) Absolute Lymphs (auto) Total Counted Neutrophils % (Manual) Band Neutrophils % Lymphocytes % (Manual) Metamyelocytes % Platelet Estimate PT 14.0 INR 1.1 APTT 25.0 Sodium Potassium Chloride Carbon Dioxide Anion Gap BUN Creatinine Estim Creat Clear Calc Est GFR (MDRD) Non-Af BUN/Creatinine Ratio Glucose Lactic Acid Calcium Total Bilirubin AST ALT Alkaline Phosphatase Troponin T High Sens Troponin T Hi Sens 2 Hr 192 H* NT pro BNP II Total Protein Albumin Globulin Albumin/Globulin Ratio Urine Color Yellow Urine Clarity Clear Urine pH 5.0 Ur Specific [place] 1.015 Urine Protein 30 H Urine Glucose (UA) 1000 H Urine Ketones 5 H Urine Occult Blood 50 H Urine Nitrite Negative Urine Bilirubin Negative Urine Urobilinogen Normal Ur Leukocyte Esterase Negative Urine RBC 5-10 SEEN Urine WBC 10-25 SEEN Ur Squamous Epith Cells 0-5 SEEN Ur Renal Epithelial Cell 0-5 SEEN Urine Bacteria RARE Urine Mucus 0 SEEN ABG Data ABG results: ABG 01/14/25 20:20 Specimen Type ART Sample Site R Radial pH 7.44 Bicarbonate Actual 19.7 L Total CO2 21 Base Excess -5 L O2 Saturation 95 O2 % 2.0 ABG pCO2 29.3 L ABG pO2 69 L Ivana Test Positive O2 Delivery Device Cannula Vent Mode Not entered Radiography Chest X-Ray - ED: 1 View, Read by ED Physician, Heart, Lungs, Mediastinum, Bony Structures, No Acute Disease and Chronic Changes Diagnostic Testing: Clinical Impression(s) from Imaging Studies Chest X-Ray 01/14/25 19:00 IMPRESSION: Mildly increased interstitial markings may be the result of pulmonary edema or atypical/viral infection. Reading Location: [id number] Chest x-ray, portable, single view interpreted by myself shows no acute abnormality. Normal cardiac silhouette. Normal lung otto. Chronic changes. Rhythm Strip Rhythm Strip: Sinus Tach Rate: 134 Ectopy: None EKG Initial EKG: Attestation: I personally reviewed and interpreted this EKG as follows: Interpretation: No Acute Injury Pattern and Sinus Tachycardia Comments: Sinus tachycardia rate of 134 no acute sign of IL or ischemia. Critical Care Time Critical Care Time: Yes Critical care time (excluding procedures): 30-74 minutes, Including time spent:,Discussing w/Patient &/or Family/Sterilizer Operator, Discussing w/Consultants, ArrangingAdmission or Transfer, Performing Direct Patient Care at Bedside and - (40 minutes) Discharge Plan Dx/Rx/DC Orders Clinical Impression: UTI (urinary tract infection), Acute hypotension, Hypoxia, Acidosis, lactic, History of diabetes mellitus, History of blood clots, Chronic anticoagulation Disposition Disposition: [facility] What to do if you have Problems For any increased pain, shortness of breath, bleeding, nausea or vomiting, chestpain, or any unexpected problems, contact your Primary Care Provider. Call [facility] ([phone]) or report to the closest Emergency Room. Call 911 if necessary. 01/14/250 <Electronically signed by Alex Smith MD> Cosigner Signature (if applicable): CC: Dr. Nehemias Arizmendi MD ~ Signed [facility] Work Phone: [phone] Discharge summary [facility] Medical Records Department [address] [place] [address] Emergency Department Summary 01/14/25 MR#: [id number] Acct: [id number] Name: CAITLIN GERMAIN Rep #:[id number] : 1965 59 From: Alex Smith MD PCP: Dr. Nehemias Arizmendi MD Status:REG E R Location: ED ADDENDUM by Dr. Jeremiah Valenzuela MD on 01/14/25 at [address] results of the CTA chest which were unremarkable and the CT abdomen/pelvis which showed partial striated nephrogram on the right, and I spoke to the radiologist about this. He states this could be indicative of pyelonephritis which the patient is being treated for right now, and the emergency physician suspected urosepsis. Also incidentally found were significant atheromatous plaques and ulcerations in the abdominal aorta without any acute vascular emergency, but radiology mentioned this puts her at risk for events such as dissection or throwing clots. She is currently anticoagulated and on high-dose statin. This was discussed with hospitalist in addition to theradiologist. 01/14/25 [id number] Cosigner Signature (if applicable): cc: Dr. Nehemias Arizmendi MD ~* Signed HPI History of Present Illness Chief Complaint: Fever Informant: patient Onset/Context/Timing Onset: Today and Yesterday Context: Gradual Onset Timing: Continuous Current Severity: Severe Maximum Severity: Severe Narrative Narrative: 59-year-old female history diabetes, DVT and PE on Eliquis. Today was seen at [facility] urgent care diagnosed with UTI placed on Macrobid. At home she got pale certainly shortness of breath fever and chills and they brought her to emergencydepartment of the way and she had an episode of vomiting x 1. She is a known diabetic her blood sugar is 153. Prior similar symptoms: No Recent Illness/Hospitalization: Yes [facility] Medical History Morbid obesity with BMI of 40.0-44.9, adult Renal cyst Adrenal nodule Loss of hearing Wears glasses Wears dentures History of steroid therapy Thyroid disease DVT (deep venous thrombosis) High cholesterol Back pain Vertigo Heartburn Smoker Shortness of breath on exertion Leg cramps Hypertension Cardiology follow-up encounter History of Holter monitoring History of echocardiogram History of stress test Lightheadedness Near syncope Mixed hyperlipidemia History of left heart catheterization (LHC) (~03/24/22) Abnormal cardiac CT angiography Tachycardia Essential hypertension Kyphosis Rheumatoid arthritis Home Medications ?Medication ?Instructions ?Recorded ?Last Taken ?Type meclizine 25 mg tablet 25 mg PO TID PRN dizziness 0 12/16/21 Unknown History amlodipine 10 mg tablet 10 mg PO DAILY bp 01/01/22 1 History hydroxychloroquine 200 mg tablet 200 mg PO BID ra 01/16 Unknown History losartan 100 mg tablet 100 mg PO DAILY 01/01/22 History metformin 1,000 mg tablet 1,000 mg PO BID dm 11/16/22 Unknown History atorvastatin 20 mg tablet See Rx Instructions .Route 1 07/05/22 Unknown Rx .COMPLEX hld #90 tabs leflunomide 20 mg tablet 20 mg PO DAILY arthritis 08/21 Unknown History dapagliflozin propanediol 10 mg 10 mg PO DAILY 5 Unknown History tablet (Farxiga) apixaban 5 mg tablet (Eliquis) 5 mg PO BID 01/14/25 Un known History famotidine 20 mg tablet 20 mg PO QDAY 01/14/25 Unkno wn History furosemide 20 mg tablet 20 mg PO DAILY 01/14/25 Unkn own History gabapentin 100 mg capsule 100 mg PO TID 01/14/25 Unkno wn History levothyroxine 137 mcg tablet 137 mcg PO DAILY hypothyr oidism 01/14/25 Unknown History tirzepatide 2.5 mg/0.5 mL 2.5 mg subcut QWEEK diabetes 01/14/25 Unknown History subcutaneous pen injector (Yukoro) Allergy/AdvReac Type Severity Reaction Status Date / Time Sulfa (Sulfonamide Allergy Unknown Hives Verified 01/14/25 09:46 Antibiotics) Family History Sister Breast cancer Hypertension Diabetes Sister Myocardial infarction, Onset Age: 30 Surgical History History of total thyroidectomy History of cardiac catheterization (~02/2022) S/P thyroid biopsy (~02/2022) History of laparoscopic cholecystectomy History of appendectomy Social History Smoking Status: Current every day smoker tobacco type: cigarettes Tobacco: How many years used: 30 second hand exposure: Yes alcohol intake: current alcohol intake frequency: holidays/special occasions only substance use type: does not use caffeine: Yes Type: coffee Number of servings: 3 seatbelt use: always ROS ROS ED ROS Narrative Urinary frequency. Chills. Nausea vomiting x 1. Constitutional Constitutional ED: Reports chills; Denies fever(s) Eyes Eyes: Denies blurry vision ENT ENT ED: Denies ear pain Cardiovascular Cardiovascular: Denies chest pain Respiratory/Chest Respiratory/Chest: Denies cough or dyspnea Gastrointestinal Gastrointestinal: Reports nausea and vomiting; Denies abdominal pain Genitourinary Genitourinary ED: Reports dysuria and urinary frequency Musculoskeletal Musculoskeletal: Denies arthralgias Integumentary Denies abscess Neurologic Neurologic: Denies headache(s) Psychiatric Psychiatric: Denies anxiety Endocrine Endocrinology: Denies cold intolerance Hematologic/Lymphatic Hematologic/Lymphatic: Reports none Allergic/Immunologic Allergic/Immunologic ED: Denies mouth swelling, tongue swelling or urticaria EXAM Physical Exam Narrative Exam Narrative: 59-year-old female vital signs tachycardic 140s. Pulse ox 90% on 2 L hypoxic. She looks ill. She may be septic. She is diaphoretic and clammy. Initial blood pressure 126/75. H EENT exam pupils round react light. Mytrex members. Neck nontender JVD. Lungs clear to auscultation bilaterally. Heart [id number] no murmur. Chest wall ribs nontender. Abdomen soft nontender. No peritoneal signs. Movingall 4 extremities. Normal horn player strength. Normal dorsi plantarflexion. Skin is cool and clammy. Backnontender. Neurologicallyshe is awake alert. Answer questions following commands. Const Vital Signs: 01/14/25 18:23 01/14/25 18:37 01/14/25 19:00 Temperature 97.8 F 98.0 F Temperature Source Temporal Oral Pulse Rate 145 H 115 H Respiratory Rate 22 H 29 H Respiratory Effort Respiratory Pattern Blood Pressure 126/75 H 91/45 L Blood Pressure Mean 92 60 Pulse Ox 90 93 95 Oxygen Delivery Method Nasal Cannula Nasal Cannula Nasal Cannula Oxygen Flow Rate (L/min) 2 2 2 01/14/25 19:00 01/14/25 19:22 01/14/25 19:51 Temperature 99.9 F H Temperature Source Oral Pulse Rate 115 H 112 H Respiratory Rate 34 H 37 H Respiratory Effort Normal Non-Labored Respiratory Pattern Normal Blood Pressure 91/46 L 102/52 L Blood Pressure Mean 61 68 Pulse Ox 95 100 Oxygen Delivery Method Nasal Cannula Nasal Cannula Oxygen Flow Rate (L/min) 2 2 01/14/25 20:15 01/14/25 20:44 01/14/25 20:45 Temperature Temperature Source Pulse Rate 116 H 115 H Respiratory Rate 41 H 39 H Respiratory Effort Respiratory Pattern Blood Pressure 82/53 L Blood Pressure Mean 63 Pulse Ox 94 87 86 Oxygen Delivery Method Nasal Cannula Oxygen Flow Rate (L/min) 2 01/14/25 20:47 01/14/25 20:51 01/14/25 20:51 Temperature 98.6 F Temperature Source Oral Pulse Rate 114 H 109 H 114 H Respiratory Rate 28 H 27 H 33 H Respiratory Effort Respiratory Pattern Blood Pressure 87/53 L 87/53 L Blood Pressure Mean 64 64 Pulse Ox 89 85 95 Oxygen Delivery Method Nasal Cannula Nasal Cannula Oxygen Flow Rate (L/min) 2 3 01/14/25 20:59 01/14/25 20:59 01/14/25 21:00 Temperature Temperature Source Pulse Rate 110 H 113 H Respiratory Rate 24 H 31 H Respiratory Effort Respiratory Pattern Blood Pressure Blood Pressure Mean Pulse Ox 90 94 92 Oxygen Delivery Method Nasal Cannula Nasal Cannula Nasal Cannula Oxygen Flow Rate (L/min) 3 4 4 01/14/25 21:45 01/14/25 21:55 01/14/25 22:00 Temperature 98.6 F 98.3 F 98.9 F Temperature Source Oral Oral Pulse Rate 104 H 101 H Respiratory Rate 23 H 25 H Respiratory Effort Respiratory Pattern Blood Pressure 86/55 L 104/61 Blood Pressure Mean 65 75 Pulse Ox 97 97 Oxygen Delivery Method Nasal Cannula Oxygen Flow Rate (L/min) 4 Positive well nourished and well developed; Negative for cachectic, contracturesor unkempt General Appearance ED: well developed, diaphoretic and pallor; Negative for unkempt, cachectic, contractures, cyanotic or NAD Nutritional Appearance: Negative for cachectic HEENT Reports moist mucous membranes Eyes PERRL and EOMs intact bilaterally Neck no lymphadenopathy, supple and no JVD Chest Wall inspection of chest normal and palpation of chest normal Resp normal respiratory effort and clear to auscultation bilaterally Cardio regular rhythm, S1 normal heart sound, S2 normal heart sound and no murmurs; Negative for regular rate Rate: tachycardic GI normal to inspection, nondistended, normoactive bowel sounds, non-tender, non- distended and no masses Palpation: soft; Negative for tender, guarding or rebound tenderness present Back/Spine no CVA tenderness General Back: Negative for CVA tenderness Cervical Spine: Negative for cervical spine tenderness Thoracic Spine / Upper Back: Negative for thoracic spinal tenderness or paraspinal muscle tenderness Lumbar Spine / Lower Back: Negative for lumbar spinal tenderness Extremity normal to inspection General Extremety ED: Negative for edema or tenderness General Extremity: Negative for edema Neuro oriented x3 and CN's II-XII intact bilaterally Sensorium / Orientation: alert Motor Exam: strength 5/5 throughout Psych mental status grossly normal Appearance: Negative for unkempt Skin no rashes or lesions noted, no wounds and skin turgor normal Skin Narrative: Diaphoretic cool and clammy skin. General Skin Exam: elasticity normal and pallor; Negative for jaundice Lesions: No lesion noted Rashes: No rashes noted Trauma: Negative for abrasion Wounds: Negative for wounds noted MDM MDM MDM Narrative Medical decision making narrative: 59-year-old female concern for sepsis. She is tachycardic and diaphoretic. Recent UTI symptoms. Undergo septic workup with a liter normal saline. Will bestarted on IV antibiotics as soon as we have asource. Repeat exam at 9 PM. Patient remains hypotensive but her abdomen is benign. She does not feel any worse. She has received 2 L of fluid and she is currentlyon her third. Due to the urinary tract infection she will be started on Rocephin IV which has been ordered. Due to the hypoxia I did obtain a CTA of her chest with a abdomen and pelvis. This may all be secondary to UTI and urosepsis. Hospitalist will be paged for admission. Repeat exam patient is resting comfortably at 10:03 PM. Current blood pressuresin the 90s. I reviewed his CTA chest and CT abdomen pelvis. Awaiting formal radiology interpretation. [facility] the [facility] for [facility]. Currently patient is being treated for UTI, hypotension and suspected urosepsis. She is awake alert. Abdomen is benign. I spoke to the night hospitalist. Patient will be admitted to PCU. He will follow-up with CT results. History & Record Review Discussion w/independent historian: Patient and Family Additional record(s) reviewed:: Prior inpatient record, Prior outpatient record,Prior ED visit and Prior labs Lab Data Attestation: I reviewed the patient's lab results. Lab results narrative: CBC shows a white count 3.1. H&H 14 and 43. Platelets 156. 63% neutrophils. 16% bands. Chemistries show normal sodium. Elevated anion gap of 18. Normal BUN and creatinine. Lactic acid 2.7. Troponin 18. 2-hour troponin elevated at 192. BNP 265. Urine shows 5-10 red cells. 10-25 white cells. No bacteria. No nitrites. Labs: Laboratory Results - last 24 hr 01/14/25 01/14/25 01/14/25 18:37 18:37 18:37 WBC 3.1 L RBC 5.18 Hgb 14.7 Hct 43.1 MCV 83.2 MCH 28.4 MCHC 34.1 RDW Std Deviation 45.7 H RDW Coeff of Layla 15.1 H Plt Count 156 MPV 9.9 Neut % (Auto) Not Reportable Absolute Neuts (auto) 2.4 Absolute Lymphs (auto) 0.47 L Total Counted 100 Neutrophils % (Manual) 63 Band Neutrophils % 16 H Lymphocytes % (Manual) 15 L Metamyelocytes % 6 H Platelet Estimate ADEQUATE PT INR APTT Sodium 136 Cancelled Potassium 3.9 Cancelled Chloride 101 Carbon Dioxide Anion Gap BUN Creatinine Estim Creat Clear Calc Est GFR (MDRD) Non-Af BUN/Creatinine Ratio Glucose Lactic Acid Calcium Total Bilirubin AST ALT Alkaline Phosphatase Troponin T High Sens Troponin T Hi Sens 2 Hr NT pro BNP II Total Protein Albumin Globulin Albumin/Globulin Ratio Urine Color Urine Clarity Urine pH Ur Specific [place] Urine Protein Urine Glucose (UA) Urine Ketones Urine Occult Blood Urine Nitrite Urine Bilirubin Urine Urobilinogen Ur Leukocyte Esterase Urine RBC Urine WBC Ur Squamous Epith Cells Ur Renal Epithelial Cell Urine Bacteria Urine Mucus 01/14/25 01/14/25 01/14/25 18:37 18:37 18:37 WBC RBC Hgb Hct MCV MCH MCHC RDW Std Deviation RDW Coeff of Layla Plt Count MPV Neut % (Auto) Absolute Neuts (auto) Absolute Lymphs (auto) Total Counted Neutrophils % (Manual) Band Neutrophils % Lymphocytes % (Manual) Metamyelocytes % Platelet Estimate PT INR APTT Sodium Potassium Chloride Cancelled Carbon Dioxide 16.5 L Cancelled Anion Gap 18 H Cancelled BUN 14 Creatinine Estim Creat Clear Calc Est GFR (MDRD) Non-Af BUN/Creatinine Ratio Glucose Lactic Acid Calcium Total Bilirubin AST ALT Alkaline Phosphatase Troponin T High Sens Troponin T Hi Sens 2 Hr NT pro BNP II Total Protein Albumin Globulin Albumin/Globulin Ratio Urine Color Urine Clarity Urine pH Ur Specific [place] Urine Protein Urine Glucose (UA) Urine Ketones Urine Occult Blood Urine Nitrite Urine Bilirubin Urine Urobilinogen Ur Leukocyte Esterase Urine RBC Urine WBC Ur Squamous Epith Cells Ur Renal Epithelial Cell Urine Bacteria Urine Mucus 01/14/25 01/14/25 01/14/25 18:37 18:37 18:37 WBC RBC Hgb Hct MCV MCH MCHC RDW Std Deviation RDW Coeff of Layla Plt Count MPV Neut % (Auto) Absolute Neuts (auto) Absolute Lymphs (auto) Total Counted Neutrophils % (Manual) Band Neutrophils % Lymphocytes % (Manual) Metamyelocytes % Platelet Estimate PT INR APTT Sodium Potassium Chloride Carbon Dioxide Anion Gap BUN Cancelled Creatinine 0.71 Cancelled Estim Creat Clear Calc 87.56 Cancelled Est GFR (MDRD) Non-Af 97 BUN/Creatinine Ratio Glucose Lactic Acid Calcium Total Bilirubin AST ALT Alkaline Phosphatase Troponin T High Sens Troponin T Hi Sens 2 Hr NT pro BNP II Total Protein Albumin Globulin Albumin/Globulin Ratio Urine Color Urine Clarity Urine pH Ur Specific [place] Urine Protein Urine Glucose (UA) Urine Ketones Urine Occult Blood Urine Nitrite Urine Bilirubin Urine Urobilinogen Ur Leukocyte Esterase Urine RBC Urine WBC Ur Squamous Epith Cells Ur Renal Epithelial Cell Urine Bacteria Urine Mucus 01/14/25 01/14/25 01/14/25 18:37 18:37 18:37 WBC RBC Hgb Hct MCV MCH MCHC RDW Std Deviation RDW Coeff of Layla Plt Count MPV Neut % (Auto) Absolute Neuts (auto) Absolute Lymphs (auto) Total Counted Neutrophils % (Manual) Band Neutrophils % Lymphocytes % (Manual) Metamyelocytes % Platelet Estimate PT INR APTT Sodium Potassium Chloride Carbon Dioxide Anion Gap BUN Creatinine Estim Creat Clear Calc Est GFR (MDRD) Non-Af Cancelled BUN/Creatinine Ratio 19.5 Cancelled Glucose 252 H Cancelled Lactic Acid 2.7 H* Calcium 9.6 Total Bilirubin AST ALT Alkaline Phosphatase Troponin T High Sens Troponin T Hi Sens 2 Hr NT pro BNP II Total Protein Albumin Globulin Albumin/Globulin Ratio Urine Color Urine Clarity Urine pH Ur Specific [place] Urine Protein Urine Glucose (UA) Urine Ketones Urine Occult Blood Urine Nitrite Urine Bilirubin Urine Urobilinogen Ur Leukocyte Esterase Urine RBC Urine WBC Ur Squamous Epith Cells Ur Renal Epithelial Cell Urine Bacteria Urine Mucus 01/14/25 01/14/25 01/14/25 18:37 18:37 18:37 WBC RBC Hgb Hct MCV MCH MCHC RDW Std Deviation RDW Coeff of Layla Plt Count MPV Neut % (Auto) Absolute Neuts (auto) Absolute Lymphs (auto) Total Counted Neutrophils % (Manual) Band Neutrophils % Lymphocytes % (Manual) Metamyelocytes % Platelet Estimate PT INR APTT Sodium Potassium Chloride Carbon Dioxide Anion Gap BUN Creatinine Estim Creat Clear Calc Est GFR (MDRD) Non-Af BUN/Creatinine Ratio Glucose Lactic Acid Calcium Cancelled Total Bilirubin 0.54 Cancelled AST 19 Cancelled ALT 16 Alkaline Phosphatase Troponin T High Sens Troponin T Hi Sens 2 Hr NT pro BNP II Total Protein Albumin Globulin Albumin/Globulin Ratio Urine Color Urine Clarity Urine pH Ur Specific [place] Urine Protein Urine Glucose (UA) Urine Ketones Urine Occult Blood Urine Nitrite Urine Bilirubin Urine Urobilinogen Ur Leukocyte Esterase Urine RBC Urine WBC Ur Squamous Epith Cells Ur Renal Epithelial Cell Urine Bacteria Urine Mucus 01/14/25 01/14/25 01/14/25 18:37 18:37 18:37 WBC RBC Hgb Hct MCV MCH MCHC RDW Std Deviation RDW Coeff of Layla Plt Count MPV Neut % (Auto) Absolute Neuts (auto) Absolute Lymphs (auto) Total Counted Neutrophils % (Manual) Band Neutrophils % Lymphocytes % (Manual) Metamyelocytes % Platelet Estimate PT INR APTT Sodium Potassium Chloride Carbon Dioxide Anion Gap BUN Creatinine Estim Creat Clear Calc Est GFR (MDRD) Non-Af BUN/Creatinine Ratio Glucose Lactic Acid Calcium Total Bilirubin AST ALT Cancelled Alkaline Phosphatase 100 Cancelled Troponin T High Sens 18 H D Troponin T Hi Sens 2 Hr NT pro BNP II 265 Total Protein 7.6 Cancelled Albumin 4.1 Globulin Albumin/Globulin Ratio Urine Color Urine Clarity Urine pH Ur Specific [place] Urine Protein Urine Glucose (UA) Urine Ketones Urine Occult Blood Urine Nitrite Urine Bilirubin Urine Urobilinogen Ur Leukocyte Esterase Urine RBC Urine WBC Ur Squamous Epith Cells Ur Renal Epithelial Cell Urine Bacteria Urine Mucus 01/14/25 01/14/25 01/14/25 18:37 18:37 18:37 WBC RBC Hgb Hct MCV MCH MCHC RDW Std Deviation RDW Coeff of Layla Plt Count MPV Neut % (Auto) Absolute Neuts (auto) Absolute Lymphs (auto) Total Counted Neutrophils % (Manual) Band Neutrophils % Lymphocytes % (Manual) Metamyelocytes % Platelet Estimate PT INR APTT Sodium Potassium Chloride Carbon Dioxide Anion Gap BUN Creatinine Estim Creat Clear Calc Est GFR (MDRD) Non-Af BUN/Creatinine Ratio Glucose Lactic Acid Calcium Total Bilirubin AST ALT Alkaline Phosphatase Troponin T High Sens Troponin T Hi Sens 2 Hr NT pro BNP II Total Protein Albumin Cancelled Globulin 3.5 Cancelled Albumin/Globulin Ratio 1.1 Cancelled Urine Color Urine Clarity Urine pH Ur Specific [place] Urine Protein Urine Glucose (UA) Urine Ketones Urine Occult Blood Urine Nitrite Urine Bilirubin Urine Urobilinogen Ur Leukocyte Esterase Urine RBC Urine WBC Ur Squamous Epith Cells Ur Renal Epithelial Cell Urine Bacteria Urine Mucus 01/14/25 01/14/25 01/14/25 19:00 19:09 20:51 WBC RBC Hgb Hct MCV MCH MCHC RDW Std Deviation RDW Coeff of Layla Plt Count MPV Neut % (Auto) Absolute Neuts (auto) Absolute Lymphs (auto) Total Counted Neutrophils % (Manual) Band Neutrophils % Lymphocytes % (Manual) Metamyelocytes % Platelet Estimate PT 14.0 INR 1.1 APTT 25.0 Sodium Potassium Chloride Carbon Dioxide Anion Gap BUN Creatinine Estim Creat Clear Calc Est GFR (MDRD) Non-Af BUN/Creatinine Ratio Glucose Lactic Acid Calcium Total Bilirubin AST ALT Alkaline Phosphatase Troponin T High Sens Troponin T Hi Sens 2 Hr 192 H* NT pro BNP II Total Protein Albumin Globulin Albumin/Globulin Ratio Urine Color Yellow Urine Clarity Clear Urine pH 5.0 Ur Specific [place] 1.015 Urine Protein 30 H Urine Glucose (UA) 1000 H Urine Ketones 5 H Urine Occult Blood 50 H Urine Nitrite Negative Urine Bilirubin Negative Urine Urobilinogen Normal Ur Leukocyte Esterase Negative Urine RBC 5-10 SEEN Urine WBC 10-25 SEEN Ur Squamous Epith Cells 0-5 SEEN Ur Renal Epithelial Cell 0-5 SEEN Urine Bacteria RARE Urine Mucus 0 SEEN ABG Data ABG results: ABG 01/14/25 20:20 Specimen Type ART Sample Site R Radial pH 7.44 Bicarbonate Actual 19.7 L Total CO2 21 Base Excess -5 L O2 Saturation 95 O2 % 2.0 ABG pCO2 29.3 L ABG pO2 69 L Ivana Test Positive O2 Delivery Device Cannula Vent Mode Not entered Radiography Chest X-Ray - ED: 1 View, Read by ED Physician, Heart, Lungs, Mediastinum, Bony Structures, No Acute Disease and Chronic Changes Diagnostic Testing: Clinical Impression(s) from Imaging Studies Chest X-Ray 01/14/25 19:00 IMPRESSION: Mildly increased interstitial markings may be the result of pulmonary edema or atypical/viral infection. Reading Location: [facility] Chest x-ray, portable, single view interpreted by myself shows no acute abnormality. Normal cardiacsilhouette. Normal lung otto. Chronic changes. Rhythm Strip Rhythm Strip: Sinus Tach Rate: 134 Ectopy: None EKG Initial EKG: Attestation: I personally reviewed and interpreted this EKG as follows: Interpretation: No Acute Injury Pattern and Sinus Tachycardia Comments: Sinus tachycardia rate of 134 no acute sign of IL or ischemia. Critical Care Time Critical Care Time: Yes Critical care time (excluding procedures): 30-74 minutes, Including time spent:,Discussing w/Patient &/or Family/Sterilizer Operator, Discussing w/Consultants, ArrangingAdmission or Transfer, Performing Direct Patient Care at Bedside and - (40 minutes) Discharge Plan Dx/Rx/DC Orders Clinical Impression: UTI (urinary tract infection), Acute hypotension, Hypoxia, Acidosis, lactic, History of diabetes mellitus, History of blood clots, Chronic anticoagulation Disposition Disposition: [facility] Care [facility] What to do if you have Problems For any increased pain, shortness of breath, bleeding, nausea or vomiting, chestpain, or any unexpected problems, contact your Primary Care Provider. Call [facility] ([phone]) or report tothe closest Emergency Room. Call 911 if necessary. 01/14/252214 Cosigner Signature (if applicable): CC: Dr. Nehemias Arizmendi MD ~ Signed [facility]07-20-2025 Radiology Diagnostic study note [facility] Imaging Services [address] [place], [place] [id number] Abdomen/Pelvis W IV Cont ONLY MR#: [id number] Acct: [id number] Name: CAITLIN GERMAIN Rep #: [id number] : 1965 F 59 From: Scarlett Oseguera MD PCP: Dr. Nehemias Arizmendi MD Status: REG E R Study:Abdomen/Pelvis W IV Cont ONLY Date of E xam: 01/14/25 Exam# [id number] Ordering Dr: Naima Smith MD ADDENDUM by Dr. Leslye Oseguera MD on 01/14/25 at 2304 Extensive atherosclerosis of the abdominal aorta with findings suggestive of atheromatous ulceration. Reading Location: [facility] 01/14/252304 Date cc: Dr. Alex Smith MD; Dr. Nehemias Arizmendi MD ~* Signed PROCEDURE: ABDOMEN/PELVIS W IV CONT ONLY 01/14/2025 REASON FOR EXAM: HYPOTENSION. UTI. ABD PAIN TECHNIQUE: ABDOMEN/PELVIS W IV CONT ONLY Coronal and Sagittal reconstruction series were provided. CONTRAST: 100 mL of Isovue 370 One or more dose reduction techniques were used (e.g., Automated exposure control, adjustment of the mA and/or kV according to patient size, use of iterative reconstruction technique. RADIATION DOSE SUMMARY: DLP: 1954 MGycm COMPARISON: MR from 01/28/2024 FINDINGS: Limited sections of the lung bases demonstrate no focal pulmonary mass or consolidations. Left basesubsegmental atelectasis. The liver, spleen, pancreas demonstrate no acute findings. 2.5 x 1.8 cm right adrenal lesion. Multicystic lesion within the left adrenal gland measuring 2.7 x 1.7 cm. The gallbladder is surgically removed. The stomach is unremarkable. The small bowel loops are not dilated. The appendix is not clearly identified, although there are no secondary signs ofappendicitis. No colonic obstruction. Colonic diverticulosis without acute diverticulitis. There is no free air or significant free fluid. 4.9 x 4.7 cm cyst within the right kidney and 1.6 by 1.9 cm cyst within the right kidney. Striated nephrogram within the right kidney best seen within the lower pole may reflect pyelonephritis or renal infarction under appropriate clinical context. The urinary bladder is partially distended. The pelvic structures are intact. There is no solid pelvic mass. No significant lymphadenopathy. The aorta and IVC demonstrate no acute findings. Extensive atherosclerosis of the abdominal vasculature. Visualized osseous structures demonstrate no acute abnormality. Extensive lumbar multilevel degenerative changes with severe levoscoliosis. CT/Abdomen/Pelvis W IV Cont ONLY IMPRESSION: Striated nephrogram within the right kidney best seen within the lower pole may reflect pyelonephritis or renal infarction under appropriate clinical context. 2.5 x 1.8 cm right adrenal lesion. Multicystic lesion within the left adrenal gland measuring 2.7 x1.7 cm. Reading Location: [id number] CC: Dr. Alex Smith MD; Dr. Nehemias Arizmendi MD ~ Gridcap Machine Operator: Signed [facility]07-20-2025 Radiology Diagnostic study note [facility] Imaging Services [address] [facility] [address] CTA Chest W/WO Contrast MR#: [id number] Acct: [id number] Name: CAITLIN GERMAIN Rep #: [id number] : 1965 F 59 From: Scarlett Oseguera MD PCP: Dr. Nehemias Arizmendi MD Status: REG E R Study:CTA Chest W/WO Contrast Date of Exam: 01/14/25 Exam# [id number] Ordering Dr: Naima Smith MD PROCEDURE: CTA CHEST W/WO CONTRAST 01/14/2025 REASON FOR EXAM: HYPOXIA TECHNIQUE: CTA CHEST W/WO CONTRAST Multiplanar Sagittal and Coronal images were obtained. CONTRAST: 100 mL of Isovue 370 One or more dose reduction techniques were used (e.g., Automated exposure control, adjustment of the mA and/or kV according to patient size, use of iterative reconstruction technique). RADIATION DOSE SUMMARY: DLP: 866 mGycm COMPARISON: 10/18/2024 FINDINGS: PULMONARY ARTERIES: No evidence of pulmonary embolism. LUNGS AND PLEURA: No focal consolidations. No definite pulmonary edema. No pleural effusion. No pneumothorax. 7 mm nodule within the left lower lobe best seen on series 3, image 160, minimally increased where previously it measured 6 mm on 10/18/2024. MEDIASTINUM: No lymphadenopathy or mass. Moderate cardiomegaly. Extensive coronary atherosclerosis. The aorta shows no acute findings. Minimal atherosclerosis of the thoracic aorta. The pulmonary trunk, and branches of the vessels in the mediastinum are within normal limits. SUPRACLAVICULAR AND AXILLARY: No abnormalities seen in these regions. No mass or significant lymphadenopathy. UPPER ABDOMEN: Please see concurrent CTAP. BONES AND SOFT TISSUES: The ribs are unremarkable. The visualized spine shows no significant acute findings. Anterior wedge- shapedcompression deformity of the lower thoracic spine, grossly unchanged. Subcutaneous soft tissues are unremarkable. CT/CTA Chest W/WO Contrast IMPRESSION: No acute pulmonary emboli. No focal consolidations. 7 mm nodule within the left lower lobe, minimally increased compared to 10/18/2024. Reading Location: [facility] CC: Dr. Alex Smith MD; Dr. Nehemias Arizmendi MD ~ Gridcap Machine Operator: Signed [facility]07-20-2025 Radiology Diagnostic study note [facility] Imaging Services [address] [place] [address] Chest 1 View (Portable) MR#: [id number] Acct: [id number] Name: CAITLIN GERMAIN Rep #: [id number] : 1965 F 59 From: Margret Van MD PCP: Dr. Nehemias Arizmendi MD Status: REG E R Study:Chest 1 View (Portable) Date of Exam: 01/14/25 Exam# [id number] Ordering Dr: Naima Smith MD PROCEDURE: CHEST 1 VIEW (PORTABLE) 01/14/2025 REASON FOR EXAM: CHEST PAIN TECHNIQUE: Frontal view of the chest. COMPARISON: Chest radiograph 10/21/2024, CT chest 10/18/2024 FINDINGS: Hardware: None Heart: Cardiac and mediastinal contours are enlarged, unchanged. Lungs: Mild diffuse increase in interstitial markings. No focal consolidation. Unchanged eventration of the right hemidiaphragm. Bones: Leftward curvature of the thoracic spine. RAD/Chest 1 View (Portable) IMPRESSION: Mildly increased interstitial markings may be the result of pulmonary edema or atypical/viral infection. Reading Location: [facility] CC: Dr. Alex Smith MD; Dr. Nehemias Arizmendi MD ~ Gridcap Machine Operator: Signed [facility]04-28-2025 [facility]04-24-2025 Evaluation note* Diagnosis Onset Date Resolution Status Admit Date Acute respiratory insufficiency acut e October 18, 2024 11:07pm DVT (deep venous thrombosis) acute October 18, 2024 11:07pm Pulmonary embolism acute October 18, 2024 11:07pm Morbid obesity with BMI of 40.0-44.9, adult inactive October 18 11:07pm [facility] Work Phone: [phone] Evaluation note* Diagnosis Onset Date Resolution Status Admit Date Acute respiratory insufficiency acut e October 18, 2024 11:07pm DVT (deep venous thrombosis) acute October 18, 2024 11:07pm Pulmonary embolism acute October 18, 2024 11:07pm Morbid obesity with BMI of 40.0-44.9, adult inactive October 18 11:07pm Tachycardia acute January 14 9:45am UTI (urinary tract infection) acute January 14, 2025 9:45am [facility] Work Phone: [phone] Evaluation note* Diagnosis Onset Date Resolution Status Admit Date Acute respiratory insufficiency acut e October 18, 2024 11:07pm DVT (deep venous thrombosis) acute October 18, 2024 11:07pm Pulmonary embolism acute October 18, 2024 11:07pm Morbid obesity with BMI of 40.0-44.9, adult inactive October 18 11:07pm Tachycardia acute January 14 9:45am UTI (urinary tract infection) acute January 14, 2025 9:45am Lactic acidosis acute December 10:24pm Acute cystitis with hematuria acute January 14, 2025 10:24pm Acute hypotension acute January 142024 10:24pm Acute respiratory insufficiency acut e January 14, 2025 10:24pm Chronic anticoagulation acute J 2024 10:24pm DVT (deep venous thrombosis) acute January 14, 2025 10:24pm Elevated troponin acute January 142024 10:24pm History of blood clots acute Ju 2024 10:24pm History of diabetes mellitus acute January 14, 2025 10:24pm Hypotension acute January 14 10:24pm Hypoxia acute January 14 10:24pm Leukopenia acute January 14 10:24pm Obesity (BMI 30-39.9) acute Dec 10:24pm Pyelonephritis acute January 14, 2025 10:24pm Sepsis acute January 14 10:24pm Tachycardia acute January 14 10:24pm UTI (urinary tract infection) acute January 14, 2025 10:24pm [facility] Work Phone: [phone] 310-116904-23-2025 Radiology Diagnostic study note [facility] Imaging Services [address] [place], [place] [address] CTA Chest W/WO Contrast MR#: [id number] Acct: [id number] Name: CAITLIN GERMAIN Rep #: [id number] : 1965 F 59 From: Henrik Uriarte MD PCP: Dr. Nehemias Arizmendi MD Status: REG E R Study:CTA Chest W/WO Contrast Date of Exam: 10/18/24 Exam# [id number] Ordering Dr: Kyler Galarza DO PROCEDURE: CTA [...] notified on 10/18/2024 at 2130. Reading Location: [id number] CC: Dr. Kyler Hay DO; Dr. Nehemias Arizmendi MD ~ Gridcap Machine Operator: Signed [facility]04-23-2025 Radiology Diagnostic study note [facility] Imaging Services [address] [place] [address] Chest PA and Lateral MR#: [id number] Acct: [id number] Name: CAITLIN GERMAIN Rep #: [id number] : 1965 F 59 From: Chao Harrison DO PCP: Dr. Nehemias Arizmendi MD Status: REG E R Study:Chest PA and Lateral Date of Exam: 10/18/24 Exam# [id number] Ordering Dr: Kyler Galarza DO PROCEDURE: CHEST [...] Hay DO; Dr. Nehemias Arizmendi MD ~ Gridcap Machine Operator: Signed [facility]08-05-2024 [facility]07-17-2023 Note. MICRO - Microbiology PROCEDURE: [...] Locations *1: This test was performed at: [facility], [address] [place] [address], [id number] , [facility] ([place])01-09-2023 Hospital Discharge instructions Patient Education 01/09/2023 13:43:01 [...] Slowly return to your usual activities. Take ixqt-yxa-giefkvv and prescription medicines only as told by [...] 03/09/2002 Document Revised: 11/14/2018 Document Reviewed: 11/14/2018 [employer] Patient Education 2020 [employer]. Follow Up Care 01/06/2023 05:43:33 With:NEHEMIAS ARIZMENDI MD Address: [address] [place] [address] [phone] When:1-2 days Comments:Call to make appointment [facility] 07-15-2023 Note Discharge Instructions Thank you for allowing [facility] to assist you with your healthcare needs. The following is importantdischarge information regarding your hospital visit. Your Care Team NEHEMIAS ARIZMENDI MD Your Diagnosis Diabetes mellitus type 2 Pleural effusion Pericardial effusion What to do next Instructions From Your Doctor Take tapering course of prednisone. Pleural effusion is likely secondary to your underlying rheumatoid arthritis. Please follow-up with your warehouse incentive selector. No need for any further antibiotics Take [...] Why: Call to make appointment Where: [address] [place] [address] [phone] The Following Activity and Diet Have Been [...] by mouth Once a day Pickup at [facility]/pharmacy #[id number] Changed predniSONE (prednisone 10mg tab (TAPER)) Taper 40-30-20-10 x 3 days each dose by mouth Once a day Duration: 12 Days Take with food/ meal Pickup at [facility]/pharmacy #[id number] Unchanged albuterol (albuterol MDI (90 mcg/ inh) [...] by mouth Once a day Pharmacy Information [facility]/pharmacy #[id number]: [address], [place] [phone] What How Much When Comments Stop Taking [...] wireless accessories such as remote control, or NewsPin devices. Do not reuse a needle, syringe [...] blood pressure, such as diet pills or tjrly-rvp-uqcl medicine. What are the possible side effects [...] may report side effects to FDA at 2-721-PPP-0709. What other drugs will affect furosemide? Sometimes [...] drugs may affect furosemide, including prescription and hrah-fgb-ozftyrf medicines, vitamins, and herbal products. Not all [...] to ensure that the information provided by [employer]. ('[employer]') is accurate, up-to-date, and complete, but no guarantee is made to that effect. Drug information contained herein may be time sensitive. [employer] information has been compiled for use by healthcare practitioners and consumers in the [place] and therefore [employer] does not warrant that uses outside of the [place] are appropriate, unless specifically indicated otherwise. [employer] drug information does not endorse drugs, diagnose patients or recommend therapy. [employer] drug information isan informational resource designed to [...] effective or appropriate for any given patient. [facility] does not assume any responsibility for any aspect of healthcare administered with the aid of information [facility] provides. The information contained herein is not intended to cover all possible uses, directions, precautions, warnings, drug interactions, allergic reactions, or adverse effects. If you have questions about the drugs you are taking, check with your doctor, nurse or pharmacist. Copyright 9911-2976 [employer]. Version: 18.. Revision Date: 09/04/2022. prednisone (PRED antonio escobedoviviMegan Cortes What is the most important information [...] may report side effects to FDA at 8-830-ERG-0564. What other drugs will affect prednisone? Sometimes [...] may affect prednisone. This includes prescription and pejh-vuf-vbueotf medicines, vitamins, and herbal products. Not all [...] to ensure that the information provided by [employer]. ('[employer]') is accurate, up-to-date, and complete, but no guarantee is made to that effect. Drug information contained herein may be time sensitive. [employer] information has been compiled for use by healthcare practitioners and consumers in the [place] and therefore [employer] does not warrant that uses outside of the [place] are appropriate, unless specifically indicated otherwise. [employer] drug information does not endorse drugs, diagnose patients or recommend therapy. [employer] drug information isan informational resource designed to [...] effective or appropriate for any given patient. [employer] does not assume any responsibility for any aspect of healthcare administered with the aid of information [facility] provides. The information contained herein is not intended to cover all possible uses, directions, precautions, warnings, drug interactions, allergic reactions, or adverse effects. If you have questions about the drugs you are taking, check with your doctor, nurse or pharmacist. Copyright 9888-8843 [employer]. Version: 10.. Revision Date: 09/22/2018. Education Materials [...] Slowly return to your usual activities. Take surv-ofr-vjabnty and prescription medicines only as told by [...] 03/09/2002 Document Revised: 11/14/2018 Document Reviewed: 11/14/2018 [employer] Patient Education 2020 [employer] Additional Information VACCINATE! IT SAVES LIVES! Members of the community who have not yet received the COVID-19 vaccine and would like to receive it can visit one of [facility] vaccine clinics. There are many vaccine clinic locations within the [facility]. For locations and available times, please visit https://[email or web address].[place].gov/. It is important to note that some COVID mobile vaccine clinics are held outdoors and may be canceled in rainy or stormy conditions. To learn more about pediatric vaccinations (ages 5-11), we invite you to visit the [facility] webpage. https://www.[facility].org/pages/0539-Tdqjw-Gvweiclexxs-Hltwevxetx-Hqzpc-Dwl stions.htmlTo learn more about the COVID-19 vaccine, we invite you to visit the CDC website for a list of frequently asked questions.https://www.cdc.gov/coronavirus/2019-ncov/vaccines/faq.html [facility] Patient Portal Access Instructions: Stay connected with your healthcare team and access your personal medical information anytime with the [facility] Patient Portal. Please follow the directions below to create your [facility] account: 1.Access the email account you provided upon registration to the hospital/physician office.2.Look for an invitation email from [facility].3.Open the email and access the invitation link: AcceptInvitation to [facility].4.Fill in the required otto to create your account. To access your account, visit [employer]/HipClubshruthi. Click the blue button labeled "Access Patient [...] who you will allowto register on the [facility] Patient Portal for access to your information. You can also access the [facility] on the [facility] nichole. Simply click on "Patient Portal" and then log into your account. If you would like to receive a full copy of your medical records, please contact the [facility] Medical Records Department by calling [phone], Wednesday through Wednesday between 8 a.m. and [...] Call your local pharmacy or go to [email or web address] to find one close to you.3.Make use of household items: Use cat litter or old coffee grounds to dispose medications if other options arenot available. Mix your drugs with these household products, seal them in an airtight container andthrow it into the garbage. Call [facility]: [phone] to be sure your drugs can be [...] aware that I should contact my doctor. 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lg[facility]uf37-[facility]-0627 Discharge summary Date of Service 01/09/2023 Discharge Diagnosis 1. Acute hypoxic respiratory failure 2. Transudative pleural effusion 3. Pericardial effusion 4. Pleuritic chest pain 5. History of diabetes mellitus 6. History of rheumatoid arthritis. Hospital Course 57-year-old female admitted to Cardiology service on January 06 from [facility] with chief complaint of shortness of breath found to have a pericardial effusion. Past medical history of hypertension, hyperlipidemia, mild nonobstructive CAD, diabetes mellitus type 2, tobacco abuse, RA, pancreatitis. She had been seen at [facility] about 2 days prior to coming back in at that time she was diagnosed with a pneumonia and sent home on antibiotics. She continued to have what seems to be pleuritic chest pain and shortness of breath and for that reason went back and was transferred to [facility] for cardiology evaluation. Her imaging showed [...] underlying rheumatoid arthritis. Please follow-up with your warehouse incentive selector. No need for any further antibiotics Continue [...] hours as needed as needed for wheezing. [id number] Milligram by mouth once a day. atorvastatin (atorvastatin 20 mg oral tablet)1 tab(s) by mouth daily at bedtime. DULoxetine (DULoxetine 30 mg oral delayed release capsule)2 cap by mouth daily at bedtime. famotidine (famotidine 20 mg oral tablet)1 tab(s) by mouth once a day. hydroxychloroquine (hydroxychloroquine 200 mg oral tablet)1 tab(s) by mouth two (2) times a day. [id number] Milligram by mouth every 6 hours as needed as needed for pain. leflunomide (leflunomide 20 mg oral tablet)1 tab(s) by mouth once a day. qnpogpcecebvc802 Microgram by mouth once a day. losartan [...] Call to make appointment Where: [address] [place] [address] [phone] Follow Up Appointments No qualifying data available. [...] JONATHAN POSEY MD on 01/09/2023 03:[address] [facility] HospitalXwyfhnhh08-22-5990 Pulmonary Progress note Date of Service 01/09/2023 [...] is elevated. Patient does have rheumatology at [place] that she follows 4. Gentle diuresis Digitally Signed by WINIFRED CUMMINS MD on 01/09/2023 10:[address] [facility] HospitalUbxomicn81-74-1935 Note Date of Service 01/08/2023 Reason for Consultation Medical management, transfer of service Referring Physician Dr. Rivas History of Present Illness Patient is a 57-year-old female admitted to Cardiology service on January 06 from [facility] with chief complaint of shortness of [...] effusion Patient presented as a transfer from [facility] under cardiology service for complaint of [...] JUAN C DAO on 01/08/2023 03:[address] [facility] HospitalIbjdcqqx87-14-4618 Note ORIGINAL EXAMINATION: TWO XRAY VIEWS OF [...] Sign Date: 01/08/2023 1:58:59 PM Ordering Provider: [facility]07-14-2023 Note ORIGINAL EXAMINATION: TWO XRAY [...] Sign Date: 01/08/2023 1:58:59 PM Ordering Provider: [facility]07-14-2023 Pulmonary Progress note Date of Service 01/08/2023 [...] Result Date: January 07, 2023 Verified By: LBANCA GUTIÉRREZ MD CLINICAL STATEMENT: IMPRESSION: CT Thorax [...] WINIFRED CUMMINS MD on 01/08/2023 10:[address] [facility] HospitalAsnwxpib00-52-8586 Cardiology Progress note Date of Service 01/08/23 Chief Complaint SOB HPI 57-year-old woman with past medical history of hypertension, hyperlipidemia, mild nonobstructive CAD, type 2 diabetes, active tobacco abuse, history of dizziness, rheumatoid arthritis, and history ofpancreatitis was transferred from [facility] for pericardial effusion. Patient states that she presented to [facility] on Wednesday for complaints of shortness [...] she was transferred for further work-up to [facility]. Patient states she had a cardiac [...] II, MD PGY-V Cardiovascular Disease Fellow Pager: [phone] Digitally Signed by BONITA RODRIGUEZ MD on 01/08/2023 01:56 PM Digitally Signed by CHRISTIANNE FULLER MD [facility] HospitalGmgdtxkf68-79-1038 Cardiology Progress note Date of Service 01/07/23 Chief Complaint SOB HPI 57-year-old woman with past medical history of hypertension, hyperlipidemia, mild nonobstructive CAD, type 2 diabetes, active tobacco abuse, history of dizziness, rheumatoid arthritis, and history ofpancreatitis was transferred from [facility] for pericardial effusion. Patient states that she presented to [facility] on Wednesday for complaints of shortness [...] she was transferred for further work-up to [facility]. Patient states she had a cardiac [...] Result Date: January 06, 2023 Verified By: WOOD HAMMOND [facility] CLINICAL STATEMENT: IMPRESSION: Successful ultrasound guided thoracentesis [...] recommendations Patient seen and discussed with Dr. Ktahie Rodriguez II, MD PGY-V Cardiovascular Disease Fellow Pager: [phone] Digitally Signed by BONITA RODRIGUEZ MD on 01/07/2023 12:[address] [facility] [facility] HospitalHxuumxjn73-33-8939 Pulmonary Progress note Date of Service 01/07/2023 [...] LIAM CLARK MD on 01/07/2023 01:[address] [facility] HospitalDgubyhjk98-06-9336 Note ORIGINAL HISTORY: Effusion COMPARISON: Previous day FINDINGS: There is no drainable fluid collection. Interpreted by: Blanca Gutiérrez MD Preliminary Report By: Blanca Gutiérrez MD Electronically signed By Blanca Gutiérrez MD Dictated Date: 01/07/2023 10:00:13 AM Prelim Date: 01/07/2023 10:01:06 AM Sign Date: 01/07/2023 10:01:06 AM Ordering Provider: [facility]2023 Note ORIGINAL HISTORY: Effusion COMPARISON: Previous day FINDINGS: There is no drainable fluid collection. Interpreted by: Blanca Gutiérrez MD Preliminary Report By: Blanca Gutiérrez MD Electronically signed By Blanca Gutiérrez MD Dictated Date: 01/07/2023 10:00:13 AM Prelim Date: 01/07/2023 10:01:06 AM Sign Date: 01/07/2023 10:01:06 AM Ordering Provider: [facility]2023 Cardiology Progress note Date of Service 01/07/23 Chief Complaint SOB HPI 57-year-old woman with past medical history of hypertension, hyperlipidemia, mild nonobstructive CAD, type 2 diabetes, active tobacco abuse, history of dizziness, rheumatoid arthritis, and history ofpancreatitis was transferred from [facility] for pericardial effusion. Patient states that she presented to [facility] on Wednesday for complaints of shortness [...] she was transferred for further work-up to [facility]. Patient states she had a cardiac [...] process. Benign bilateral adrenal adenomas. CCU nurse Spring was directly informed of the pericardial effusion, [...] II, MD PGY-V Cardiovascular Disease Fellow Pager: [phone] Digitally Signed by BONITA RODRIGUEZ MD on 01/07/2023 12:[address] [facility] HospitalYkdmduhk16-21-2810 Note ORIGINAL EXAMINATION: CT OF THE CHEST [...] Date: 01/07/2023 12:15:42 AM Ordering Provider: WINIFRED FINK [facility]07-12-2023 History and physical note Date of Service 01/06/23 Chief Complaint SOB History of Present Illness 57-year-old woman with past medical history of hypertension, hyperlipidemia, mild nonobstructive CAD, type 2 diabetes, active tobacco abuse, history of dizziness, rheumatoid arthritis, and history ofpancreatitis was transferred from [facility] for pericardial effusion. Patient states that she presented to [facility] on Wednesday for complaints of shortness [...] she was transferred for further work-up to [facility]. 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 [facility] HospitalGkunyrtr77-12-6274 NoteORIGINAL PROCEDURE: ULTRASOUND GUIDED THORACENTESIS CLINICAL STATEMENT: [...] Report By: Rosa Liz Electronically signed By Miim Muir MD Dictated Date: 01/06/2023 12:03:02 PM Prelim Date: 01/06/2023 12:04:25 PM Sign Date: 01/06/2023 3:23:52 PM [facility]ing [facility] Note ORIGINAL PROCEDURE: ULTRASOUND GUIDED THORACENTESIS CLINICAL [...] Sign Date: 01/06/2023 3:23:52 PM Ordering Provider: [facility]07-12-2023 Note ORIGINAL EXAMINATION: CT OF THE CHEST [...] Sign Date: 01/07/2023 12:15:42 AM Ordering Provider: [facility]07-12-2023 Evaluation + Plan noteExtracted from: Title:History and [...] II, MD PGY-V Cardiovascular Disease Fellow Pager: [phone] Addendum by RAUL FULLER MD on January [...] Fluid 01/06/23 * pH Body Fluid 01/06/[address] [facility] 07-12-2023 Respiratory therapy Hospital Progress note [...] by GÓMEZ Valle on 01/06/2023 01:[address] [facility] HospitalNntsktee13-51-4315 Note ORIGINAL EXAMINATION: ONE XRAY VIEW OF [...] 01/06/2023 12:20:37 PM Ordering Provider: ROSA LIZ [facility] [id number] Note ORIGINAL EXAMINATION: ONE XRAY VIEW OF [...] 01/06/2023 12:15:56 PM Ordering Provider: SHANDA ELLIOTT [facility] HospitalRgjeupia06-47-5439 Pulmonary Consult note Date of Service 01/06/2023 Reason for Consultation Pleural effusions Referring Physician Dr. Rivas History of Present Illness 57-year-old woman with past medical history of hypertension, hyperlipidemia, CAD, type 2 diabetes, active tobacco abuse, history of dizziness, rheumatoid arthritis, and history of pancreatitis was transferred from [facility] for pericardial effusion. Patient states that she presented to [facility] on Wednesday for complaints of shortness [...] She was transferred for further work-up to [facility]. When I saw her this morning she continues to be significantly short of breath she is sitting up in the chair feels " miserable" Review of Systems Negative except as detailed in HPI Physical Exam Vitals and Measurements T: 37.0 C (Oral) TMIN: 36.5 C (Oral) TMAX: 37.0 C (Oral) HR: 97(Monitored) RR: 22 BP: 124/65 SpO2:93% HT: 160 cm WT: 98.7 kg BMI: [...] No qualifying data available. Digitally Signed by WINIFERD CUMMINS MD on 01/06/2023 12:14 PM Digitally Signed by WINIFRED CUMMINS MD on 01/06/2023 12:[address] [facility] [facility] [facility] HospitalXylyeqqg94-24-4948 Note ORIGINAL EXAMINATION: ONE XRAY VIEW OF [...] Date: 01/06/2023 12:20:37 PM [facility] Note ORIGINAL PROCEDURE: ULTRASOUND GUIDED THORACENTESIS [...] Date: 01/06/2023 3:23:52 PM Ordering Provider: B[facility]ITA [facility]ODRIGUEZ[facility] HospitalHmnvbtdu36-06-7525 Note US Procedure Record Summary Primary Physician: CHING GARLAND PA-C Finalized Date/Time: 01/06/23 11:37:34 Pt. Name: CAITLIN GERMAIN/Sex: 1965 Female Med Rec #: [id number] Physician: ARIANA RIVAS MD Financial #: [id number] Pt. Type: I Room/Bed: [facility]/A Admit/Disch: 01/06/23 05:42:07 - Institution: Allergies identified [...] M Role Performed Primary Surgeon Radiology PA/RA Mechanical Engineering Professor Details Time In 01/06/23 11:18:00 01/06/23 11:17:00 01/06/23 11:20:00 Time Out 01/06/23 11:26:00 01/06/23 11:26:00 01/06/23 11:22:00 Procedure/Preference US Thoracentesis Left US Thoracentesis Left US Thoracentesis Left Card (SN) (SN) (SN) Last Modified By: Skye Adames Lauren M Clark, Lauren M 01/06/23 11:27:00 01/06/23 11:27:00 01/06/23 11:27:00 Entry 4 Case Attendee SURYA Bonner Role Performed Mechanical Engineering Professor Details Time In 01/06/23 11:23:00 Time Out [...] Data- US Entry 1 Case Information Room [facility] Receiving Case Level None Wound Class None [...] instrumentation, sponges, or sharps). Outcomes Met? Yes Engineering Faculty Member Skye Adames Completing Procedure Plan Last Modified By: Skye Adames 01/06/23 11:21:14 Radiology Lines and Procedures- US Entry 1 Radiology Sedation Case Times Sedation Total Time 0 Radiology - Fluid/Drainage RAD - US [place], Guidewires, Cath.... Catheters M-Drain Centesis Miscellaneous Items [...] Signatures Signed By: Skye Adames 01/06/23 11:[address] [facility] HospitalWxztprhe26-30-1311 Procedure note IR Brief Post Procedure Note Preprocedure Dx: Left Pleural Effusion PERICARDIAL EFFUSION, CHF Post Procedure Dx: Same Procedure: 1. Ultrasound Guided Left Thoracentesis Installation Tech: Rosa Liz PA-C Beauty Sales Advisor: None Anesthesia: Local EBL: Minimal Complications: No immediate complications suspected Status: Stable Findings: 1. 600 mL yellow serous fluid drained from left pleural space. 2. Patient tolerated the procedure well with minimal discomfort. Plan: 1. CXR 2. Fluid sent to lab. Full report to follow. Orders in [employer]. Rosa Liz PA-C Interventional Radiology US Dept [id number] Available on [employer]omi Digitally Signed by ROSA LIZ PA-C on 01/06/2023 11:[address] [facility] HospitalLesdtqyq90-31-1461 History and physical note Date of Service 01/06/23 Chief Complaint SOB History of Present Illness 57-year-old woman with past medical history of hypertension, hyperlipidemia, mild nonobstructive CAD, type 2 diabetes, active tobacco abuse, history of dizziness, rheumatoid arthritis, and history ofpancreatitis was transferred from [facility] for pericardial effusion. Patient states that she presented to [facility] on Wednesday for complaints of shortness [...] she was transferred for further work-up to [facility]. 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 [facility] [id number] Note ORIGINAL EXAMINATION: ONE XRAY VIEW OF [...] Sign Date: 01/06/2023 12:15:56 PM Ordering Provider: [facility]07-12-2023 Discharge summary Author Wayne Germain [facility] January 06, 2023 12:07am Note Date/Time January 05, 2023 3:28 pm [facility] Medical Records Department [address] [place] [id number] Emergency Department Summary 01/05/23 MR#: [id number] Acct: [id number] Name: CAITLIN GERMAIN Rep #:[id number] : 1965 57 From: Wayne Germain DO [...] Patient states he is never had an [place]. She does have diabetes, hypertension, hyperlipidemia. [facility] Medical History Abnormal cardiac CT angiography [...] pericardial window. Discussed with Dr. Wallace at [facility] because this is where the patient wanted [...] 76.7 H Lymph % (Auto) 10.1 L Rooks % (Auto) 10.0 Eos % (Auto) 2.3 [...] your Primary Care Provider. Call [facility] ([phone]) or report to the closest Emergency Room. Call 911 if necessary. 01/06/236 <Electronically signed by Wayne Germain DO> Cosigner Signature (if applicable): CC: Dr. Nehemias Arizmendi MD ~ Signed [facility] Work Phone: Evaluation noteNo assessment information available [facility] Work Phone: Evalupemww note* Diagnosis Onset Date Resolution Status Abnormal electrocardiogram a cute Dyspnea on exertion acute Essential hypertension acute Tachycardia acute [facility] Work Phone: evaluation note* Diagnosis Onset Date Resolution Status Abnormal electrocardiogram a cute Dyspnea on exertion acute Essential hypertension acute Tachycardia acute Left thyroid nodule acute Right thyroid nodule acute Abnormal electrocardiogram a cute Abnormal stress test acute Dyspnea on exertion acute Essential hypertension acute Tachycardia acute Left thyroid nodule acute [facility] Work Phone: Evaluation note* Diagnosis Onset Date Resolution Status Abnormal electrocardiogram a cute Dyspnea on exertion acute Essential hypertension acute Tachycardia acute Left thyroid nodule acute Right thyroid nodule acute Abnormal electrocardiogram a cute Abnormal stress test acute Dyspnea on exertion acute Essential hypertension acute Tachycardia acute Left thyroid nodule acute Abnormal electrocardiogram a cute Essential hypertension acute Tachycardia acute [facility] Work Phone: Evaluation note* Diagnosis Onset [...] Rheumatoid arthritis acute Right thyroid nodule acute [facility] Work Phone: Evaluation note* Diagnosis Onset [...] thyroid nodule acute Left thyroid nodule acute [facility] Work Phone: Evaluation note* Diagnosis Onset [...] nodule resolved S/P total thyroidectomy acut e [facility] Work Phone: Evaluation note* Diagnosis Onset [...] exertion acute Essential hypertension acute Tachycardia acute [facility] Work Phone: Evaluation note* Diagnosis Onset Date Resolution Status Abnormal electrocardiogram a cute Essential hypertension acute Tachycardia acute Rheumatoid arthritis acute Right thyroid nodule acute Left thyroid nodule resolved Left thyroid nodule resolved S/P total thyroidectomy acut e Abnormal stress test acute Current smoker acute Dyspnea on exertion acute Essential hypertension acute Tachycardia acute [facility] Work Phone: Evaluation note* Diagnosis Onset Date Resolution Status S/P total thyroidectomy acut e Abnormal stress test acute Current smoker acute Dyspnea on exertion acute Essential hypertension acute Tachycardia acute [facility] Work Phone: Evaluation note* Diagnosis Onset Date Resolution Status Polyneuropathy acute Hyperglycemia chronic Peripheral vestibulopathy re solved [facility] Work Phone: Evaluation note* Diagnosis Onset Date Resolution Status Polyneuropathy acute Hyperglycemia chronic Peripheral vestibulopathy re solved Abnormal stress test acute Current smoker acute Essential hypertension acute Tachycardia acute [facility] Work Phone: Hospital course Narrative No data available for this section [facility] Hospital Discharge instructions Additional Instructions Take doxycycline and use the inhaler as needed for wheezing and shortness of breath. 7 or you have more difficulty breathing come back to the emergency room.[facility] Work Phone: Hospital Discharge instructions No data available for this section [facility] Progress note No data available for this section [facility] Reason for referral (narrative)No reason for referral [place] Work Phone: Chief Complaint and Reason for [...] (urinary tract infection) January 14, 2025 9:45am Chief Complaint Admit Date LARGE PE, HYPOCIA [...] FOR BLADDER INFECTION January 14, 2025 9:45am SEPSIS, UTI AND SOB WITH ? PNA December 10:24pm Reason for Visit Admit Date Acute respiratory insufficiency October 182024 11:07pm DVT (deep venous thrombosis) October 18, 2024 11:07pm Pulmonary embolism October 18, 2024 11: 07pm Morbid obesity with BMI of 40.0-44.9, ad ult October 18, 2024 11:07pm Tachycardia January 14, 2025 9:45 am UTI (urinary tract infection) January 14, 2025 9:45am Lactic acidosis January 14, 2025 10:2 4pm Acute cystitis with hematuria January 14, 2025 10:24pm Acute hypotension January 14, 2025 10:2 4pm Acute respiratory insufficiency December 10:24pm Chronic anticoagulation January 14, 2025 10:24pm DVT (deep venous thrombosis) January 14, 2025 10:24pm Elevated troponin January 14, 2025 10:2 4pm History of blood clots January 14, 2025 1 0:24pm History of diabetes mellitus January 14, 2025 10:24pm Hypotension January 14, 2025 10:2 4pm Hypoxia January 14, 2025 10:2 4pm Leukopenia January 14, 2025 10:2 4pm Obesity (BMI 30-39.9) January 14, 2025 10 :24pm Pyelonephritis January 14, 2025 10:2 4pm Sepsis January 14, 2025 10:2 4pm Tachycardia January 14, 2025 10:2 4pm UTI (urinary tract infection) January 14, 2025 10:24pm Family History Relationship Condition Age at Onset [...] No March 24, 2022 7:39am Power of Tester Compressed Gases No February 7:39am Advance Directive Response Recorded Date/ Time Advance Directives No February 7:39am Living Will No April 08 10:06am Power of Tester Compressed Gases No April 08, 2022 10:06am Advance Directive Response Recorded Date/ Time Advance Directives No February 7:39am Living Will No April 15 1:33pm Power of Tester Compressed Gases No April 15, 2022 1:33pm Advance Directive Response Recorded Date/ Time Advance Directives No February 6:39am Living Will No April 15 12:33pm Power of Tester Compressed Gases No April 15, 2022 12:33pm Advance Directive Response Recorded Date/ Time Advance Directives No February 7:39am Living Will No January 03, 2023 1 1:25am Power of Tester Compressed Gases No January 03, 2023 11:25am Advance Directive Response Recorded Date/ Time Advance Directives No February 7:39am Living Will No January 05, 2023 3:04pm Power of Tester Compressed Gases No January 05 3:04pm Advance Directive Response Recorded Date/ Time Advance Directives No February 6:39am Living Will No January 05, 2023 2:04pm Power of Tester Compressed Gases No January 05 2:04pm Advance Directive Response Recorded Date/ Time Advance Directives No February 7:39am Advance Directive Response Recorded Date/ Time Do you have a Healthcare Power of Tester Compressed Gases? No October 18, 2024 7:33pm Advance Directives No February 7:39am Advance Directive Response Recorded Date/ Time Do you have a Healthcare Power of Tester Compressed Gases? No October 18, 2024 11:10pm Advance Directives No February 7:39am Advance Directive Response Recorded Date/ Time Do you have a Healthcare Power of Tester Compressed Gases? No October 18, 2024 11:10pm Do you have a Healthcare Power of Tester Compressed Gases? No January 14, 2025 7:00pm Advance Directives No February 7:39am Summary Purpose [...] Start: October 18, 2024 Dr. Kyler Hay , Emergency Provider [...] Care Provider, Referring Provider Active Rahel Mosley BLOW DOWN OPERATOR, BLOW DOWN OPERATOR-C Attending Provider Active Team Status: Inactive Member [...] 2024 End: October 23, 2024 Dr. Bharathi Rolbes , DO Admit Provider Active Start: October [...] Provider Active Start: October 23, 2024 Dr. Bharatih Robles , DO Other Provider Active Start: [...] October 23, 2024 Dr. Bharathi Robles DO Admit Provider Active Start: October 18, 2024 End: October 23, 2024 Dr. Bharathi Robles DO Other Provider Active Start: October 18, 2024 End: October 23, 2024 Dr. Dre Lilly MD Other Provider Active Start : October 18, 2024 End: October 23, 2024 Dr. Leobardo Soot , Attending Provider Active Start: October 18, 2024 End: October 23, 2024 Dr. Sy Gr DO Other Provider Active S tart: October [...] Active Start: October 19, 2024 Dr. Kyler Klusty-Jean Paul , DO Emergency Provider Activ e Start: [...] e Start: October 20, 2024 Dr. Bharathi de Les , DO Admit Provider Active Start: October [...] e Start: October 22, 2024 Dr. Bharathi Rolbes , DO Admit Provider Active Start: October [...] October 23, 2024 Dr. Leobardo Soto , Other Provider Active Start: October 23, 2024 Dr. Sy Gr DO Other Provider Active S tart: October [...] 2025 End: January 14, 2025 Yrn Champion BLOW DOWN OPERATOR, BLOW DOWN OPERATOR-C Attending Provider Active S tart: January 14, 2025 End: January 14, 2025 Team Status: Active Member Role/Relationship Status Dates Dr. Nehemias Arizmendi MD Primary Care Provider Active Start: January 14, 2025 Dr. Alex Smith MD Referring Provider Active S tart: January 14, 2025 Dr. Alex Smith MD Emergency Provider Active S tart: January 14, 2025 Dr. Bharathi Robles DO Admit Provider Active Start: January 14, 2025 Dr. Bharathi Robles DO Attending Provider Active Start: January 14, 2025 INFORMATION SOURCE (unrecogn ized section and content) DATE CREATED AUTHOR 01/12/2023 [facility] ([place] DATE CREATED AUTHOR AUTHOR'S ORGANIZ ATION 12/01/2024 [facility] FOR RECORDS PERTAINING TO PATIENTS WHO [...] BE BASED ON THE PRIMARY CLINICAL RECORDS. [facility], [facility]. provides no warranty or guarantee of the accuracy or completeness of information in this document.
[2025-01-15] MEDS: 0.9% Saline Lock 10 ML Syringe IV (02:37)
[2025-01-15] MEDS: Pantoprazole Sodium 40 MG in 0.9% Normal Saline (100mL MB+) 100 ML 330 MG IV ×2 (02:37→21:44)
[2025-01-15] MEDS: Albumin Human 25% (100 mL) 25 GM/100 ML BAG IV (02:38)
[2025-01-15] MEDS: 0.9% Normal Saline (250mL Bag) 250 ML 15 ML IV (02:38)
--- NOTE | 2025-01-15 05:00 | RAD_ITS ---
PROCEDURE: CHEST 1 VIEW (PORTABLE) 01/15/2025 REASON FOR EXAM: ?ATYPICAL PNA. TECHNIQUE: Frontal view of the chest. COMPARISON: 01/14/2022 FINDINGS: Scoliosis. Normal heart size. Right lower lobe opacity favoring atelectasis. No definite consolidation, effusion or pneumothorax. RAD/Chest 1 View (Portable) IMPRESSION: Right basilar opacity favoring atelectasis. Reading Location: [place] [address]
[2025-01-15 05:35] LABS: Allen Test Positive; Base Excess -6 mmol/L (-2 to +2); FI02 2.0; PO2 93 mmHG (75-100); SITE R Radial; SO2 97 % (95-99)
[2025-01-15] MEDS: APIXABAN 5 MG TABLET PO ×2 (10:29→21:55)
--- NOTE | 2025-01-15 10:55 | CASEMGMT ---
CACHORRO HUYNH Assessment Face to Face with patient for initial transition planning/care coordination assessment. CACHORRO HUYNH introduced self and role at [facility], pt voices understanding. Pt is A&Ox4 and is resting comfortably in bed and is calm. Care providers, pharmacy, and demographics verified. Admitting dx: Sepsis, UTI, SOB, PNA LACE Strata: 3 PCP: Nehemias Arizmendi Specialists: Rachel (Rheumatology), HECTOR Preferred Pharm[facility]: [facility] Benef[facility]: Yes LNOK: Steve (H), Eusebio (Son) Living Arrangements: Pt lives with her in a single story home with 2 steps to enter. Pt states that her sister and daughter live close and that they are able to provide the pt with support when needed. ADLs/IADLs: Pt states that she is independent. 6-Click score is 20. No PT ordered. Transportation: Self, children. Denies concerns DME: History of home oxygen through [facility] [place]. Pt states that she only needed the equipment for about a week. Pt is currently 100% on RA. Pt states that she has a pulse ox, BGM with sufficient supplies, BP Machine, cane, shower chair, FWW, and rollator. HHC/SNF: Denies Pt’s goal: Home Plan: Home with family support. Pt denies the need for any home care or additional therapy. Noted that the pt takes Eliquis at home. Pt states that she could use some assistance with this. 10$ co-pay card provided to the pt at this time and educated that this can only be used once per lifetime. Pt states understanding and thanks this CACHORRO HUYNH. Pt states that she feels safe returning home with her once she is medically ready and denies further questions or concerns now. Jade Talamantes RN, CM
--- NOTE | 2025-01-15 17:33 | PCM.PN.HOSP ---
Reason for Visit Chief Complaint: Fever, Chills and Dysuria. Subjective Subjective Patient was seen and examined today, she appeared medically stable and she was made a PCU patient today. Patient's Tmax today was 100.2 orally, urine culture is pending Objective Data Objective Data Vital Signs: Vital Signs Temp Pulse Resp BP Pulse Ox O2 Del Method O2 Flow Rate 100.2 F H 112 H 16 126/66 H 97 Room Air 3 01/15/25 15:56 01/15/25 15:56 01/15/25 15:56 01/15/25 15:56 01/15/25 15:56 01/15/25 15:56 01/15/25 06:00 Oxygen Flow Rate (L/min) 3 Oxygen Delivery Method Room Air Weight: 94.5 kg Body Mass Index (BMI) 36.8 Intake & Output: Intake and Output for Last 24 Hours 01/13/25 01/14/25 01/15/25 23:59 23:59 23:59 Intake Total 3050 / 3050 1657 / 1657 Output Total 400 / 400 Balance 3050 / 3050 1257 / 1257 Lab / Micro Data 01/14/25 18:37 01/14/25 18:37 Labs: Laboratory Results - last 24 hr 01/14/25 18:37: WBC 3.1 L, RBC 5.18, Hgb 14.7, Hct 43.1, MCV 83.2, MCH 28.4, MCHC 34.1, RDW Std Deviation 45.7 H, RDW Coeff of Layla 15.1 H, Plt Count 156, MPV 9.9, Neut % (Auto) Not Reportable, Absolute Neuts (auto) 2.4, Absolute Lymphs (auto) 0.47 L, Total Counted 100, Neutrophils % (Manual) 63, Band Neutrophils % 16 H, Lymphocytes % (Manual) 15 L, Metamyelocytes % 6 H, Platelet Estimate ADEQUATE, Sodium 136 01/14/25 18:37: Sodium Cancelled, Potassium 3.9 01/14/25 18:37: Potassium Cancelled, Chloride 101 01/14/25 18:37: Chloride Cancelled, Carbon Dioxide 16.5 L 01/14/25 18:37: Carbon Dioxide Cancelled, Anion Gap 18 H 01/14/25 18:37: Anion Gap Cancelled, BUN 14 01/14/25 18:37: BUN Cancelled, Creatinine 0.71 01/14/25 18:37: Creatinine Cancelled, Estim Creat Clear Calc 87.56 01/14/25 18:37: Estim Creat Clear Calc Cancelled, Est GFR (MDRD) Non-Af 97 01/14/25 18:37: Est GFR (MDRD) Non-Af Cancelled, BUN/Creatinine Ratio 19.5 01/14/25 18:37: BUN/Creatinine Ratio Cancelled, Glucose 252 H 01/14/25 18:37: Glucose Cancelled, Lactic Acid 2.7 H*, Calcium 9.6 01/14/25 18:37: Calcium Cancelled, Total Bilirubin 0.54 01/14/25 18:37: Total Bilirubin Cancelled, AST 19 01/14/25 18:37: AST Cancelled, ALT 16 01/14/25 18:37: ALT Cancelled, Alkaline Phosphatase 100 01/14/25 18:37: Alkaline Phosphatase Cancelled, Troponin T High Sens 18 H D, NT pro BNP II 265, Total Protein 7.6 01/14/25 18:37: Total Protein Cancelled, Albumin 4.1 01/14/25 18:37: Albumin Cancelled, Globulin 3.5 01/14/25 18:37: Globulin Cancelled, Albumin/Globulin Ratio 1.1 01/14/25 18:37: Albumin/Globulin Ratio Cancelled 01/14/25 19:00: Urine Color Yellow, Urine Clarity Clear, Urine pH 5.0, Ur Specific Old[place]ams 1.015, Urine Protein 30 H, Urine Glucose (UA) 1000 H, Urine Ketones 5 H, Urine Occult Blood 50 H, Urine Nitrite Negative, Urine Bilirubin Negative, Urine Urobilinogen Normal, Ur Leukocyte Esterase Negative, Urine RBC 5-10 SEEN, Urine WBC 10-25 SEEN, Ur Squamous Epith Cells 0-5 SEEN, Ur Renal Epithelial Cell 0-5 SEEN, Urine Bacteria RARE, Urine Mucus 0 SEEN 01/14/25 19:09: PT 14.0, INR 1.1, APTT 25.0 01/14/25 20:51: Troponin T Hi Sens 2 Hr 192 H* 01/14/25 22:52: Lactic Acid 1.5, Troponin T Hi Sens 4Hr 253 H*, b-Hydroxybutyric mmol/L 0.7 H, TSH 0.134 L, Free T4 1.70 H, Free T3 pg/dL 1.9 L Micro: Microbiology 01/15/25 02:30 Mucosa - Nasopharyngeal Respiratory Panel (PCR) - Final 01/14/25 18:37 Blood Culture (Wb) - Left Forearm Blood Culture - Preliminary 01/14/25 19:00 Blood Culture (Wb) - Right Forearm Blood Culture - Preliminary 01/14/25 19:00 Urine Catheter - Catheter Legionella Antigen - Final 01/14/25 19:00 Urine Catheter - Catheter Streptococcus pneumoniae Antigen (M - Final ABG Data ABG results: ABG 01/14/25 01/15/25 20:20 05:32 Specimen Type ART ART Sample Site R Radial R Radial pH 7.44 7.36 Bicarbonate Actual 19.7 L 19.3 L Total CO2 21 20 Base Excess -5 L -6 L O2 Saturation 95 97 O2 % 2.0 2.0 ABG pCO2 29.3 L 34.3 L ABG pO2 69 L 93 Christopher Test Positive Positive O2 Delivery Device Cannula Cannula Vent Mode Not entered Not entered Radiography Diagnostic Testing: Radiology Impression Chest X-Ray 01/14/25 19:00 IMPRESSION: Mildly increased interstitial markings may be the result of pulmonary edema or atypical/viral infection. Reading Location: [facility] Chest CTA 01/14/25 20:57 IMPRESSION: No acute pulmonary emboli. No focal consolidations. 7 mm nodule within the left lower lobe, minimally increased compared to 10/18/2024. Reading Location: [facility] Abdomen/Pelvis CT 01/14/25 21:02 IMPRESSION: Striated nephrogram within the right kidney best seen within the lower pole may reflect pyelonephritis or renal infarction under appropriate clinical context. 2.5 x 1.8 cm right adrenal lesion. Multicystic lesion within the left adrenal gland measuring 2.7 x 1.7 cm. Reading Location: [facility] Chest X-Ray 01/15/25 05:00 IMPRESSION: Right basilar opacity favoring atelectasis. Reading Location: [place] [address] Rhythm Strip Rhythm Strip: Sinus Tach Rate: 134 Ectopy: None Physical Exam Const alert, oriented x3 and no apparent distress General Appearance: cooperative, well kempt and well developed Orientation / Consciousness: awake, oriented to person, oriented to place and oriented to time HEENT normocephalic, head/scalp atraumatic and moist oral mucous membranes Eyes PERRL, EOMs intact bilaterally and conjunctivae normal Neck supple, no JVD, thyroid normal and no carotid bruits General: trachea midline Resp normal respiratory effort, no retractions, no use of accessory muscles and clear to auscultation bilaterally Auscultation: Negative for rales, rhonchi or wheezes Cardio regular rate, regular rhythm, S1 normal heart sound, S2 normal heart sound, no murmurs, no rub and no gallops GI normal to inspection, nondistended, normoactive bowel sounds, soft to palpation, non-tender and non-distended Extremity no clubbing, cyanosis or edema Skin no rashes or lesions noted General Skin Exam: no breakdown Neuro oriented x3, CN's II-XII intact bilaterally, moves all extremities, no focal motor deficits and no sensory deficits noted Sensorium / Orientation: awake and alert Speech: speech normal Psych affect normal Assessment & Plan Assessment/Plan (1) Pyelonephritis: PLAN: Plan 1. Pyelonephritis-patient is currently on ceftriaxone, urine cultures pending, Gram stain the patient's blood culture showed a gram-negative jude. #2 elevated troponin secondary to demand ischemia-patient has no complaints of any chest discomfort #3 long-term use of anticoagulants-patient has a past history of DVT, she remains on Eliquis #4 hypothyroidism-patient is on Synthroid #5 type 2 diabetes-continue sliding scale insulin and fingerstick blood sugars #5 essential hypertension-patient's blood pressure medications are being held presently, she is normotensive #6 hyperlipidemia-patient is on Lipitor Total clinical time spent by myself addressing the patient's medical issues, reviewing all of her data, and collaborating with patient's care team: 35 minutes Charges/Coding Visit Charges Inpatient E&M: 16521 Subs Hosp L2
[2025-01-16 02:00] VITALS: BP 91/74; PULSE 94; RESP 16; TEMP 36.7; O2SAT 99
[2025-01-16 03:59] VITALS: BMI 36.8
[2025-01-16 06:49] LABS: Hematocrit 37.0 % (37-47); Hemoglobin 11.9 g/dL (12.0-15.0); Immature Granulocytes Count 0.090 X10^3/uL (0.0-0.0); Mean Corp Hgb Conc 32.2 g/dL (32-36); Mean Corpuscular Volume 85.6 fL (81-99); Mean Platelet Vol. 10.1 fl (6.2-12.0); NRBC Flagged by Analyzer 0 % (0-5); POSITIVE COUNT YES; POSITIVE DIFFERENTIAL YES; POSITIVE MORPHOLOGY YES; Platelet Count 102 K/mm3 (150-450); RBC Distribution Width CV 15.7 % (11.6-14.6); RBC Distribution Width SD 49.3 fl (35.1-43.9); Red Blood Count 4.32 M/mm3 (4.2-5.4); White Blood Count 9.7 K/mm3 (4.4-11.0)
[2025-01-16 06:53] VITALS: O2SAT 95
[2025-01-16 07:10] LABS: Differential Comment SCANNED; Differential Indicated SCAN CRITERIA MET
[2025-01-16 07:36] VITALS: BP 100/60; PULSE 87; RESP 16; TEMP 36.7; O2SAT 95
[2025-01-16] MEDS: APIXABAN 5 MG TABLET PO ×2 (07:39→22:03)
[2025-01-16 08:04] LABS: Anion Gap 12 (5-15); BUN 17 mg/dL (4-19); BUN/Creat Ratio 32.2 RATIO (10-20); Calcium,Total 8.7 mg/dL (7.6-11.0); Carbon Dioxide 19.1 mmol/L (21.0-32.0); Chloride 108 mmol/L (98-108); Estimated Creatinine Clearance 123.97 ml/min (50-250); Glucose 141 mg/dL (70-99); Potassium 3.5 mmol/L (3.3-5.1)
[2025-01-16 13:37] VITALS: BP 122/69; PULSE 85; RESP 17; TEMP 36.7; O2SAT 94
[2025-01-16 18:26] VITALS: BP 138/71; PULSE 92; RESP 20; TEMP 36.7; O2SAT 93
--- NOTE | 2025-01-16 20:01 | PCM.PN.HOSP ---
Reason for Visit Chief Complaint: Fever, Chills and Dysuria. Subjective Subjective Patient was seen and examined today, her blood culture was positive for a gram-negative jude, the identification is not back yet. Patient is in no distress at this time, her white blood cell count is normal. Objective Data Objective Data Vital Signs: Vital Signs Temp Pulse Resp BP Pulse Ox O2 Del Method O2 Flow Rate 98.1 F 92 20 H 138/71 H 93 Room Air 3 01/16/25 18:26 01/16/25 18:26 01/16/25 18:26 01/16/25 18:26 01/16/25 18:26 01/16/25 18:26 01/15/25 06:00 Oxygen Flow Rate (L/min) 3 Oxygen Delivery Method Room Air Weight: 94.2 kg Body Mass Index (BMI) 36.8 Intake & Output: Intake and Output for Last 24 Hours 01/14/25 01/15/25 01/16/25 23:59 23:59 23:59 Intake Total 3050 / 3050 2250 / 2250 1450 / 1450 Output Total 400 / 400 Balance 3050 / 3050 1850 / 1850 1450 / 1450 Lab / Micro Data 01/16/25 06:39 01/16/25 06:39 Labs: Laboratory Results - last 24 hr 01/16/25 06:39: WBC 9.7, RBC 4.32, Hgb 11.9 L, Hct 37.0, MCV 85.6, MCH 27.5, MCHC 32.2 D, RDW Std Deviation 49.3 H, RDW Coeff of Layla 15.7 H, Plt Count 102 L, MPV 10.1, Immature Gran % (Auto) 0.900, Neut % (Auto) 86.3 H, Lymph % (Auto) 6.1 L, Monona % (Auto) 4.5, Eos % (Auto) 1.6, Baso % (Auto) 0.6, Absolute Neuts (auto) 8.4 H, Absolute Lymphs (auto) 0.59 L, Nucleated RBC % 0, Differential Comment SCANNED, Sodium 139, Potassium 3.5, Chloride 108, Carbon Dioxide 19.1 L, Anion Gap 12, BUN 17, Creatinine 0.52 L, Estim Creat Clear Calc 123.97, Est GFR (MDRD) Non-Af 106, BUN/Creatinine Ratio 32.2 H, Glucose 141 H, Calcium 8.7 Micro: Microbiology 01/14/25 19:00 Blood Culture (Wb) - Right Forearm Blood Culture - Preliminary Gram negative jude 01/14/25 18:37 Blood Culture (Wb) - Left Forearm Blood Culture - Preliminary GNR lactose educational speech language clinician 01/14/25 19:00 Urine, Catheterized Urine Culture - Preliminary Gram negative jude 01/15/25 02:30 Mucosa - Nasopharyngeal Respiratory Panel (PCR) - Final 01/14/25 19:00 Urine Catheter - Catheter Legionella Antigen - Final 01/14/25 19:00 Urine Catheter - Catheter Streptococcus pneumoniae Antigen (M - Final Rhythm Strip Rhythm Strip: Sinus Tach Rate: 134 Ectopy: None Physical Exam Narrative alert, oriented x3 and no apparent distress General Appearance: cooperative, well kempt and well developed Orientation / Consciousness: awake, oriented to person, oriented to place and oriented to time HEENT normocephalic, head/scalp atraumatic and moist oral mucous membranes Eyes PERRL, EOMs intact bilaterally and conjunctivae normal Neck supple, no JVD, thyroid normal and no carotid bruits General: trachea midline Resp normal respiratory effort, no retractions, no use of accessory muscles and clear to auscultation bilaterally Auscultation: Negative for rales, rhonchi or wheezes Cardio regular rate, regular rhythm, S1 normal heart sound, S2 normal heart sound, no murmurs, no rub and no gallops GI normal to inspection, nondistended, normoactive bowel sounds, soft to palpation, non-tender and non-distended Extremity no clubbing, cyanosis or edema Skin no rashes or lesions noted General Skin Exam: no breakdown Neuro oriented x3, CN's II-XII intact bilaterally, moves all extremities, no focal motor deficits and no sensory deficits noted Sensorium / Orientation: awake and alert Speech: speech normal Psych affect normal Assessment & Plan Assessment/Plan (1) Sepsis: QUALIFIERS: Sepsis type: sepsis due to unspecified organism Sepsis acute organ dysfunction status: without acute organ dysfunction Qualified Code(s): A41.9 - Sepsis, unspecified organism (2) Pyelonephritis: PLAN: Plan 1. Pyelonephritis with sepsis-patient is currently on ceftriaxone, urine cultures pending, Gram stain the patient's blood culture showed a gram-negative jude. #2 elevated troponin secondary to demand ischemia-patient has no complaints of any chest discomfort #3 long-term use of anticoagulants-patient has a past history of DVT, she remains on Eliquis #4 hypothyroidism-patient is on Synthroid #5 type 2 diabetes-continue sliding scale insulin and fingerstick blood sugars #5 essential hypertension-patient's blood pressure medications are being held presently, she is normotensive #6 hyperlipidemia-patient is on Lipitor Total clinical time spent by myself addressing the patient's medical issues, reviewing all of her data, and collaborating with patient's care team: 35 minutes Charges/Coding Visit Charges Inpatient E&M: 61213 Subs Hosp L2
[2025-01-16 20:27] VITALS: BP 143/70; PULSE 94; RESP 18; TEMP 36.4; O2SAT 98
[2025-01-16] MEDS: 0.9% Saline Lock 10 ML Syringe IV (20:39)
[2025-01-16] MEDS: Pantoprazole Sodium 40 MG in 0.9% Normal Saline (100mL MB+) 100 ML 330 MG IV (21:52)
[2025-01-16] MEDS: 0.9% Normal Saline (250mL Bag) 250 ML 15 ML IV (21:59)
[2025-01-17 03:00] VITALS: BP 125/58; PULSE 95; RESP 18; TEMP 36.4; O2SAT 100
[2025-01-17 05:27] VITALS: BMI 37.3
[2025-01-17 08:00] VITALS: BP 137/74; PULSE 92; RESP 19; TEMP 36.8; O2SAT 98
[2025-01-17] MEDS: APIXABAN 5 MG TABLET PO (08:10)
--- NOTE | 2025-01-17 10:56 | DCINST_ITS ---
Discharge Instructions DC O2, CPAP, BIPAP needs Home O2 Discharge instructions: No Dressing / Incision Discharge Activity: Return to Normal Activity Weight Bearing Status: Full weight bearing Follow Up Care Test Results: Test results from this visit will be discussed in further detail at your follow- up appointment, if applicable. Discharge Plan Admission Admit Date/Time: 01/14/25 22:24 Primary Reason for Your Visit: Sepsis, pyelonephritis Attending Provider: Sy Gr Primary Care Provider: Neheimas Arizmendi Consulting Providers: Nhan Robles Discharge Orders/Prescriptions Prescriptions: New cephalexin 500 mg tablet 500 mg PO TID Qty: 15 0RF Rx Instructions: START ON 01/17/25 Continued hydroxychloroquine 200 mg tablet 200 mg PO BID losartan 100 mg tablet 100 mg PO DAILY amlodipine 10 mg tablet 10 mg PO DAILY meclizine 25 mg tablet 25 mg PO TID PRN (Reason: dizziness) metformin 1,000 mg tablet 1,000 mg PO BID famotidine 20 mg tablet 20 mg PO QDAY Eliquis 5 mg tablet 5 mg PO BID dapagliflozin propanediol [Farxiga] 10 mg tablet 10 mg PO DAILY levothyroxine 137 mcg tablet 137 mcg PO DAILY furosemide 20 mg tablet 20 mg PO DAILY gabapentin 100 mg capsule 100 mg PO TID Mounjaro 2.5 mg/0.5 mL pen injector 2.5 mg SUBCUT QWEEK Patient Comments: [NO ORIGINAL SIG] leflunomide 20 mg tablet 20 mg PO DAILY atorvastatin 20 mg tablet See Rx Instructions .ROUTE .COMPLEX Qty: 90 4RF Dose Instruction: TAKE 1 TABLET BY MOUTH ONCE DAILY AT BEDTIME Rx Instructions: TAKE 1 TABLET BY MOUTH ONCE DAILY AT BEDTIME Referrals / Follow Up: Nehemias Arizmendi MD [Primary Care Provider] - See Referral Note (At your next scheduled visit) Disposition Disposition (needs filled in before D/C Order can be placed): Home, Self Care
--- NOTE | 2025-01-17 11:06 | DS.PCM_ITS ---
Providers Date of Admission: 01/14/25 Date of Discharge: 01/17/25 Primary Care Physician: Dr. Nehemias Arizmendi MD Reason For Visit: SEPSIS, UTI AND SOB WITH ? PNA Diagnosis Discharge Diagnosis (1) Sepsis: Status: Acute Code(s): A41.9 - Sepsis, unspecified organism Qualifiers: Sepsis acute organ dysfunction status: without acute organ dysfunction Sepsis type: sepsis due to unspecified organism Qualified Code(s): A41.9 - Sepsis, unspecified organism (2) Pyelonephritis: Status: Acute Code(s): N12 - Tubulo-interstitial nephritis, not specified as acute or chronic Plan 1. Pyelonephritis with sepsis-patient is currently on ceftriaxone, urine cultures pending, Gram stain the patient's blood culture showed a gram-negative jude. #2 elevated troponin secondary to demand ischemia-patient has no complaints of any chest discomfort #3 long-term use of anticoagulants-patient has a past history of DVT, she remains on Eliquis #4 hypothyroidism-patient is on Synthroid #5 type 2 diabetes-continue sliding scale insulin and fingerstick blood sugars #5 essential hypertension-patient's blood pressure medications are being held presently, she is normotensive #6 hyperlipidemia-patient is on Lipitor #7 bilateral adrenal gland lesions-patient will need follow-up with her outpatient PCP Total clinical time spent by myself addressing the patient's medical issues, reviewing all of her data, and collaborating with patient's care team: 35 minutes Medications at Discharge Home Medications meclizine 25 mg tablet 25 mg PO TID PRN dizziness 12/16/21 amlodipine 10 mg tablet 10 mg PO DAILY bp 01/01/22 hydroxychloroquine 200 mg tablet 200 mg PO BID ra 01/01/22 losartan 100 mg tablet 100 mg PO DAILY blood pressure 01/01/22 metformin 1,000 mg tablet 1,000 mg PO BID dm 11/16/22 atorvastatin 20 mg tablet See Rx Instructions .Route .COMPLEX hld #90 tabs 05/05/23 leflunomide 20 mg tablet 20 mg PO DAILY arthritis 01/28/24 dapagliflozin propanediol 10 mg tablet (Farxiga) 10 mg PO DAILY diabetes 10/18/24 apixaban 5 mg tablet (Eliquis) 5 mg PO BID blood thinner 01/14/25 famotidine 20 mg tablet 20 mg PO QDAY reflux 01/14/25 furosemide 20 mg tablet 20 mg PO DAILY diuretic 01/14/25 gabapentin 100 mg capsule 100 mg PO TID nerve pain 01/14/25 levothyroxine 137 mcg tablet 137 mcg PO DAILY hypothyroidism 01/14/25 tirzepatide 2.5 mg/0.5 mL subcutaneous pen injector (Mounjaro) 2.5 mg subcut QWEEK diabetes 01/14/25 cephalexin 500 mg tablet 500 mg PO TID #15 tabs 01/17/25 Hospital Course Operations None Procedures None Summary of Care Provided Minutes Spent on Discharge: 31 Hospital Course: This 59-year-old white female was seen in the emergency room at [facility], she was seen earlier in the day at an urgent care center and placed on Macrobid for UTI, she went home and got short of breath and had chills and return to the emergency room for reevaluation. CBC showed normal white blood cell count and hemoglobin, UA showed 10-25 WBCs and rare bacteria, patient's CHEM panel was not repeated. Patient was admitted to [facility] for acute cystitis with possible sepsis, she was placed on IV antibiotics, patient's blood culture result showed a gram-negative jude, patient's urine culture result showed E. coli. Patient was ultimately transferred to PCU and completed antibiotic course in the hospital and was discharged home on oral antibiotics. On 01/17/2025, patient was seen and examined: On examination she appeared in good health and spirits, she does not appear to be in any distress. Vital signs as documented. Skin warm and dry and without overt rashes. Neck without JVD, thyroid appears normal, trachea is midline, neck is supple. Lungs clear, normal air movement was noted. Heart exam notable for regular rhythm, normal sounds and absence of murmurs, rubs or gallops. Abdomen unremarkable and without evidence of organomegaly, masses, or abdominal aortic enlargement, bowel sounds are present in all 4 quadrants, no abdominal tenderness was noted. Extremities nonedematous, no cyanosis was noted, no clubbing was noted. Neuro: Cranial nerves II through XII are grossly intact, no focal motor deficits were noted, sensation to light touch and pinprick is intact, motor exam 5/5 throughout. Psych: Patient is alert and oriented x3, she does not appear anxious or depressed, she does not appear agitated. Patient was discharged home in stable condition on 01/17/2025. Weight / BMI Weight Weight: 95.5 kg Body Mass Index (BMI) 37.3 ABG / Lab / Microbiology Data 01/16/25 06:39 01/16/25 06:39 Microbiology: Microbiology 01/14/25 19:00 Urine, Catheterized Urine Culture - Final Escherichia coli 01/14/25 19:00 Blood Culture (Wb) - Right Forearm Blood Culture - Final Gram negative jude 01/14/25 18:37 Blood Culture (Wb) - Left Forearm Blood Culture - Final Escherichia coli 01/15/25 02:30 Mucosa - Nasopharyngeal Respiratory Panel (PCR) - Final 01/14/25 19:00 Urine Catheter - Catheter Legionella Antigen - Final 01/14/25 19:00 Urine Catheter - Catheter Streptococcus pneumoniae Antigen (M - Final D/C Instructions Weight Bearing Status: Full weight bearing DC O2, CPAP, BIPAP Needs Home O2 Discharge instructions: No Meaningful Use Info Meaningful Use Meaningful Use Diagnoses (Choose all that apply): None applicable Discharge Plan Admission Admit Date/Time: 01/14/25 22:24 Primary Reason for Your Visit: Sepsis, pyelonephritis Attending Provider: Sy Gr Primary Care Provider: Nehemias Arizmendi Consulting Providers: Nhan Robles Discharge Orders/Prescriptions Prescriptions: New cephalexin 500 mg tablet 500 mg PO TID Qty: 15 0RF Rx Instructions: START ON 01/17/25 Continued hydroxychloroquine 200 mg tablet 200 mg PO BID losartan 100 mg tablet 100 mg PO DAILY amlodipine 10 mg tablet 10 mg PO DAILY meclizine 25 mg tablet 25 mg PO TID PRN (Reason: dizziness) metformin 1,000 mg tablet 1,000 mg PO BID famotidine 20 mg tablet 20 mg PO QDAY Eliquis 5 mg tablet 5 mg PO BID dapagliflozin propanediol [Farxiga] 10 mg tablet 10 mg PO DAILY levothyroxine 137 mcg tablet 137 mcg PO DAILY furosemide 20 mg tablet 20 mg PO DAILY gabapentin 100 mg capsule 100 mg PO TID Mounjaro 2.5 mg/0.5 mL pen injector 2.5 mg SUBCUT QWEEK Patient Comments: [NO ORIGINAL SIG] leflunomide 20 mg tablet 20 mg PO DAILY atorvastatin 20 mg tablet See Rx Instructions .ROUTE .COMPLEX Qty: 90 4RF Dose Instruction: TAKE 1 TABLET BY MOUTH ONCE DAILY AT BEDTIME Rx Instructions: TAKE 1 TABLET BY MOUTH ONCE DAILY AT BEDTIME Referrals / Follow Up: Nehemias Arizmendi MD [Primary Care Provider] - See Referral Note (At your next scheduled visit) Disposition Disposition (needs filled in before D/C Order can be placed): Home, Self Care Charges/Coding Visit Charges Inpatient E&M: 60673 Disch Hosp >30min
--- NOTE | 2025-01-17 12:07 | PHA.DC.MC.R ---
Pharmacy [facility] Counseling Pharmacy Service has performed discharge medication reconciliation and counseling for this patient. 1. CEPHALEXIN 500MG PO TID X 5 DAYS The patient's discharge medication list was reviewed for discrepancies and discrepancies were resolved. The patient was counseled on the following discharge medications and changes in medications for homegoing were reviewed. The Reason for Use, instructions for use, and potential side effects were reviewed for all new medications. The patient's questions regarding all of their medications were answered. The patient was able to verbally demonstrate an understanding of their discharge medications. Medications at Discharge Home Medications meclizine 25 mg tablet 25 mg PO TID PRN dizziness 12/16/21 amlodipine 10 mg tablet 10 mg PO DAILY bp 01/01/22 hydroxychloroquine 200 mg tablet 200 mg PO BID ra 01/01/22 losartan 100 mg tablet 100 mg PO DAILY blood pressure 01/01/22 metformin 1,000 mg tablet 1,000 mg PO BID dm 11/16/22 atorvastatin 20 mg tablet See Rx Instructions .Route .COMPLEX hld #90 tabs 05/05/23 leflunomide 20 mg tablet 20 mg PO DAILY arthritis 01/28/24 dapagliflozin propanediol 10 mg tablet (Farxiga) 10 mg PO DAILY diabetes 10/18/24 apixaban 5 mg tablet (Eliquis) 5 mg PO BID blood thinner 01/14/25 famotidine 20 mg tablet 20 mg PO QDAY reflux 01/14/25 furosemide 20 mg tablet 20 mg PO DAILY diuretic 01/14/25 gabapentin 100 mg capsule 100 mg PO TID nerve pain 01/14/25 levothyroxine 137 mcg tablet 137 mcg PO DAILY hypothyroidism 01/14/25 tirzepatide 2.5 mg/0.5 mL subcutaneous pen injector (Mounjaro) 2.5 mg subcut QWEEK diabetes 01/14/25 cephalexin 500 mg tablet 500 mg PO TID #15 tabs 01/17/25
--- NOTE | 2025-01-17 12:07 | CASEMGMT ---
Patient has order for discharge. RN CM in to discuss needs at discharge. Patient denies needs or help at discharge. Patient had no further questions or concerns.
[2025-01-17 13:12] VITALS: BP 146/84; PULSE 96; RESP 16; TEMP 36.9; O2SAT 100
== END 2025-01-17 13:34 | disposition home or self-care (01) | DRG 872 ==
LOC: ED 21:55 → ICU 01-15 02:09 → PCU 01-15 18:26
PROVIDERS: Admitting Provider Internal Medicine; Emergency Provider Emergency Medicine; PCP Family Medicine; Referring Provider Emergency Medicine; Visit Provider Internal Medicine
DX: A41.50 Gram-negative sepsis, unspecified (principal); I24.89 Other forms of acute ischemic heart disease; N30.01 Acute cystitis with hematuria; E11.40 Type 2 diabetes mellitus with diabetic neuropathy, unspecified; E66.812 Obesity, class 2; E27.9 Disorder of adrenal gland, unspecified; B96.20 Unspecified Escherichia coli [E. coli] as the cause of diseases classified elsewhere; I10 Essential (primary) hypertension; E89.0 Postprocedural hypothyroidism; E78.5 Hyperlipidemia, unspecified; F17.290 Nicotine dependence, other tobacco product, uncomplicated; M19.90 Unspecified osteoarthritis, unspecified site; K21.9 Gastro-esophageal reflux disease without esophagitis; Z68.36 Body mass index [BMI] 36.0-36.9, adult; N16 Renal tubulo-interstitial disorders in diseases classified elsewhere; Z79.01 Long term (current) use of anticoagulants; Z79.899 Other long term (current) drug therapy; Z79.84 Long term (current) use of oral hypoglycemic drugs; Z86.718 Personal history of other venous thrombosis and embolism; Z86.711 Personal history of pulmonary embolism
CPT/HCPCS: 36415; 36600; 71045; 71275; 74177; 80048; 80053; 81001; 82010; 82803; 83605; 83880; 84439; 84443; 84481; 84484; 85025; 85610; 85730; 87040; 87077; 87086; 87088; 87186; 87449; 87633; 93005; 97802; 99285; 99406; P9047; Q9967; A4216

== ENCOUNTER → 2025-01-14 | Outpatient (CLI) | payer BC, SELFPAY ==
[2025-01-15 07:49] LABS: Mucous, Urine 0 SEEN /hpf (<or=2+)
[2025-01-15 10:31] LABS: Color, Urine Yellow (Yellow); Glucose, Dipstick 1000 mg/dl (Normal); Ketone-Dipstick Negative (Negative); Leukocyte Esterase-Dipstick Negative /ul (Negative); Nitrite-Dipstick Negative (Negative); Occult Blood-Urine 10 /ul (Negative); Protein-Dipstick Negative (Negative); Specific Gravity, Urine 1.010 (1.002-1.030); Urine Bilirubin Dipstick Negative (Negative)
[2025-01-15 10:47] LABS: Red Blood Cells-Urine 0-5 SEEN /hpf (0-5); Squamous Epithelial Cells - UA 0-5 SEEN /hpf (5-10)
== END | disposition home or self-care (01) ==
LOC: LABSPEC 01-15 07:47
PROVIDERS: PCP Family Medicine; Visit Provider Nurse Practitioner Family
DX: R30.0 Dysuria (principal)
CPT/HCPCS: 81001; 87086; 87088; 87186

== ENCOUNTER → 2025-02-06 | Outpatient (CLI) | payer BC, SELFPAY ==
[2025-02-06 12:00] LABS: Hematocrit 43.4 % (37-47); Hemoglobin 14.0 g/dL (12.0-15.0); Immature Granulocytes Count 0.030 X10^3/uL (0.0-0.0); Mean Corp Hgb Conc 32.3 g/dL (32-36); Mean Corpuscular Volume 86.1 fL (81-99); Mean Platelet Vol. 10.2 fl (6.2-12.0); NRBC Flagged by Analyzer 0 % (0-5); Platelet Count 259 K/mm3 (150-450); RBC Distribution Width CV 15.9 % (11.6-14.6); RBC Distribution Width SD 49.6 fl (35.1-43.9); Red Blood Count 5.04 M/mm3 (4.2-5.4); White Blood Count 7.7 K/mm3 (4.4-11.0)
[2025-02-06 12:43] LABS: AST(SGOT) 14 U/L (<=31); Alanine Aminotransfer ALT/SGPT 9 U/L (<=34); Albumin, Serum 4.0 g/dL (3.4-4.8); Alkaline Phosphatase 89 U/L (35-104); Anion Gap 14 (5-15); BUN 15 mg/dL (4-19); BUN/Creat Ratio 24.2 RATIO (10-20); Calcium,Total 9.8 mg/dL (7.6-11.0); Carbon Dioxide 23.8 mmol/L (21.0-32.0); Chloride 105 mmol/L (98-108); Globulin 3.5 g/dL (2.2-4.2); Glucose 132 mg/dL (70-99); Potassium 3.1 mmol/L (3.3-5.1)
== END | disposition home or self-care (01) ==
LOC: MFPLAB 10:21
PROVIDERS: PCP Family Medicine; Visit Provider Internal Medicine Rheumatology
DX: M05.79 Rheumatoid arthritis with rheumatoid factor of multiple sites without organ or systems involvement (principal); M79.7 Fibromyalgia; Z79.899 Other long term (current) drug therapy
CPT/HCPCS: 36415; 80053; 85025

== ENCOUNTER → 2025-03-05 | Outpatient (CLI) | payer BC, SELFPAY ==
[2025-03-05 13:03] LABS: AST(SGOT) 18 U/L (<=31); Alanine Aminotransfer ALT/SGPT 13 U/L (<=34); Albumin, Serum 4.5 g/dL (3.4-4.8); Alkaline Phosphatase 82 U/L (35-104); Anion Gap 15 (5-15); BUN 14 mg/dL (4-19); BUN/Creat Ratio 23.1 RATIO (10-20); Calcium,Total 10.1 mg/dL (7.6-11.0); Carbon Dioxide 22.5 mmol/L (21.0-32.0); Chloride 103 mmol/L (98-108); Cholesterol 122 mg/dL (<=200); Globulin 3.7 g/dL (2.2-4.2); Glucose 135 mg/dL (70-99); Low Density Lipoprotein Calc. 36 mg/dL; Potassium 4.0 mmol/L (3.3-5.1); Triglycerides 143 mg/dL; Very Low Density Lipoprotein 29 mg/dL (5-40); cholesterol:hdl ratio screen 2.12
== END | disposition home or self-care (01) ==
LOC: MFPLAB 10:28
PROVIDERS: PCP Family Medicine; Visit Provider Family Medicine
DX: E11.40 Type 2 diabetes mellitus with diabetic neuropathy, unspecified (principal)
CPT/HCPCS: 36415; 80053; 80061

== ENCOUNTER → 2025-05-08 | Outpatient (CLI) | payer BC, SELFPAY ==
[2025-05-08 15:07] LABS: Hematocrit 45.8 % (37-47); Hemoglobin 14.7 g/dL (12.0-15.0); Immature Granulocytes Count 0.020 X10^3/uL (0.0-0.0); Mean Corp Hgb Conc 32.1 g/dL (32-36); Mean Corpuscular Volume 86.9 fL (81-99); Mean Platelet Vol. 10.4 fl (6.2-12.0); NRBC Flagged by Analyzer 0 % (0-5); Platelet Count 222 K/mm3 (150-450); RBC Distribution Width CV 14.5 % (11.6-14.6); RBC Distribution Width SD 46.2 fl (35.1-43.9); Red Blood Count 5.27 M/mm3 (4.2-5.4); White Blood Count 8.2 K/mm3 (4.4-11.0)
[2025-05-08 15:34] LABS: AST(SGOT) 17 U/L (<=31); Alanine Aminotransfer ALT/SGPT 12 U/L (<=34); Albumin, Serum 4.6 g/dL (3.4-4.8); Alkaline Phosphatase 91 U/L (35-104); Anion Gap 14 (5-15); BUN 21 mg/dL (4-19); BUN/Creat Ratio 27.5 RATIO (10-20); Calcium,Total 10.2 mg/dL (7.6-11.0); Carbon Dioxide 23.9 mmol/L (21.0-32.0); Chloride 102 mmol/L (98-108); Globulin 3.6 g/dL (2.2-4.2); Glucose 125 mg/dL (70-99); Potassium 4.1 mmol/L (3.3-5.1)
== END | disposition home or self-care (01) ==
LOC: MTLAB 12:48
PROVIDERS: PCP Family Medicine; Referring Provider Internal Medicine Rheumatology; Visit Provider Internal Medicine Rheumatology
DX: M05.79 Rheumatoid arthritis with rheumatoid factor of multiple sites without organ or systems involvement (principal); M79.7 Fibromyalgia; Z79.899 Other long term (current) drug therapy
CPT/HCPCS: 36415; 80053; 85025